=== PATIENT | male | born 1970 | race Caucasian/White ===

== ENCOUNTER 2016-06-01 21:19 | Emergency (ER) | payer MEDICARE, OTHER ==
[2016-06-01] MEDS ORDERED: SODIUM CHLORIDE 0.9% 1,000 ML IV STA (21:51)
--- NOTE | 2016-06-01 22:05 | ED ---
Male Urogenital HPI - General Chief complaint: Urogenital Stated complaint: Blood in stool Time Seen by Provider: 06/01/16 21:39 Source: patient, RN notes reviewed Mode of arrival: ambulatory Limitations: no limitations - History of Present Illness Initial comments: 45 yo male presents to the ER with cc of hematuria. Patient states hematuria started today. Patient states that he noticed this this morning. Patient states he is having some right-sided abdominal pain with this. Patient states that his bowel movements may be red she was given a note that was bladder use she is concerned about urination. Patient states that the nausea or vomiting with this. Patient states the pain is moderate and achy. Patient denies any fever chills. Patient states he is on the blood thinners. Patient states he was concerned due to the bleeding site. They should be evaluated. Patient denies any recent fever, chills, shortness of breath, chest pain, back pain, nausea vomiting, numbness or tingling, dysuria, constipation or diarrhea, headaches or visual changes, or any other current symptoms. - Related Data Home Medications Medication Instructions Recorded Confirmed Divalproex ER [Depakote ER] 500 mg PO TID 10/09/13 06/01/16 traZODone HCL [traZODone] 75 mg PO HS 01/18/14 06/01/16 Albuterol Sulfate [Ventolin HFA] 2 puff INHALATION RT-Q6H PRN 06/10/14 06/01/16 metFORMIN HCL [Glucophage] 500 mg PO DAILY 06/10/14 06/01/16 Atorvastatin [Lipitor] 40 mg PO HS 01/05/15 06/01/16 Metoprolol Succinate [Toprol XL] 25 mg PO DAILY 01/05/15 06/01/16 Aspirin EC [Ecotrin Low Dose] 81 mg PO DAILY 06/01/16 06/01/16 Baclofen 10 mg PO TID 06/01/16 06/01/16 Beclomethasone Dipropionate [Qvar 2 puff INHALATION RT-BID 06/01/16 06/01/16 80 mcg] Butalb/Acetaminophen/Caffeine 1 tab PO Q8H PRN 06/01/16 06/01/16 [Fioricet 50-325-40] Montelukast Sodium [Singulair] 10 mg PO DAILY PRN 06/01/16 06/01/16 Venlafaxine HCl ER [Effexor Xr] 37.5 mg PO HS 06/01/16 06/01/16 oxyCODONE-APAP 5-325MG [Percocet 1 tab PO BID PRN 06/01/16 06/01/16 5-325 mg] Previous Rx's Medication Instructions Recorded Azithromycin [Zithromax Z-pack] 0 mg PO DIRECTED #6 tab 03/17/16 Ondansetron Odt [Zofran ODT] 4 mg PO Q8HR PRN #20 tab 06/01/16 Tamsulosin [Flomax] 0.4 mg PO DAILY #5 cap 06/01/16 Allergies Allergy/AdvReac Type Severity Reaction Status Date / Time naproxen [From Naprosyn] Allergy Unknown Rash/Hives Verified 06/01/16 21:32 carrot Allergy Dyspnea Verified 06/01/16 21:32 chocolate flavor Allergy Dyspnea Verified 06/01/16 21:32 grass pollen-perennial rye, Allergy Dyspnea Verified 06/01/16 21:32 standar Review of Systems ROS Statement: Those systems with pertinent positive or pertinent negative responses have been documented in the HPI. ROS Other: All systems not noted in ROS Statement are negative. Past Medical History Past Medical History: Chest Pain / Angina, Diabetes Mellitus, GERD/Reflux, Hyperlipidemia, Hypertension Additional Past Medical History / Comment(s): back, mood disturbance. Last Myocardial Infarction Date:: 2004 History of Any Multi-Drug Resistant Organisms: None Reported Past Surgical History: Hernia Repair Additional Past Surgical History / Comment(s): rt knee arthroscopy x2 last date 2012,cardiac stent x1 2004 Past Anesthesia/Blood Transfusion Reactions: No Reported Reaction Date of Last Stent Placement:: 2004 Past Psychological History: Anxiety, Bipolar, Depression Smoking Status: Current every day smoker Past Alcohol Use History: None Reported Past Drug Use History: None Reported - Past Family History Father Family Medical History: Congestive Heart Failure (CHF), Deep Vein Thrombosis ( DVT), Myocardial Infarction (CO), Pulmonary Embolus Additional Family Medical History / Comment(s): CO at age 38. "hole in colon" Mother Family Medical History: Cancer, COPD, Diabetes Mellitus, Hyperlipidemia Additional Family Medical History / Comment(s): breast and lung cancer Sister(s) Family Medical History: Diabetes Mellitus Additional Family Medical History / Comment(s): bi-polar, anxiety. hysterectomy Brother(s) History Unknown: Yes General Exam - General Exam Comments Initial Comments: General: The patient is awake and alert, in no distress, and does not appear acutely ill. Eye: Pupils are equal, round and reactive to light, extra-ocular movements are intact; there is normal conjunctiva bilaterally. No signs of icterus. Ears, nose, mouth and throat: There are moist mucous membranes. Neck: The neck is supple, there is no tenderness. Cardiovascular: There is a regular rate and rhythm. No murmur, rub or gallop is appreciated. Respiratory: Lungs are clear to auscultation, respirations are non-labored, breath sounds are equal. No wheezes, stridor, rales, or rhonchi. Gastrointestinal: Soft, non-distended, non-tender abdomen without masses or organomegaly noted. There is no rebound or guarding present. No CVA tenderness. Bowel sounds are unremarkable. Back: There is no tenderness to palpation in the midline. There is no obvious deformity. No rashes noted. Musculoskeletal: Normal ROM, no tenderness, There is no pedal edema. There is no calf tenderness or swelling. Sensation intact. Pulses equal bilaterally 2+. Neurological: CN II-XII intact, There are no obvious motor or sensory deficits. Coordination appears grossly intact. Speech is normal. Skin: Skin is warm and dry and no rashes or lesions are noted. Psychiatric: Cooperative, appropriate mood & affect, normal judgment. Limitations: no limitations Course Vital Signs 06/01/16 21:30 Temperature 98.7 F Pulse Rate 82 Respiratory 20 Rate Blood Pressure 137/82 O2 Sat by Pulse 97 Oximetry Medical Decision Making - Medical Decision Making 45-year-old male presents with a chief complaint of hematuria. At this time the patient's CAT scan is reviewed that showed a 5 mm stone. At this time there appears to be mild hydronephrosis kidney function appears stable. This time we discussed follow up with urology. We discussed return parameters. We discussed all the patient's questions. He stated that he understood the plan. Patient was discharged home. - Lab Data Result diagrams: 06/01/16 21:59 06/01/16 21:59 Lab Results 06/01/16 06/01/16 06/01/16 Range/Units 21:50 21:50 21:59 WBC (3.8-10.6) k/uL RBC (4.30-5.90) m/uL Hgb (13.0-17.5) gm/dL Hct (39.0-53.0) % MCV (80.0-100.0) fL MCH (25.0-35.0) pg MCHC (31.0-37.0) g/dL RDW (11.5-15.5) % Plt Count (150-450) k/uL Neutrophils % % Lymphocytes % % Monocytes % % Eosinophils % % Basophils % % Neutrophils # (1.3-7.7) k/uL Lymphocytes # (1.0-4.8) k/uL Monocytes # (0-1.0) k/uL Eosinophils # (0-0.7) k/uL Basophils # (0-0.2) k/uL Sodium 143 (137-145) mmol/L Potassium 3.4 L (3.5-5.1) mmol/L Chloride 105 (98-107) mmol/L Carbon Dioxide 28 (22-30) mmol/L Anion Gap 10 mmol/L BUN 16 (9-20) mg/dL Creatinine 0.70 (0.66-1.25) mg/dL Est GFR (MDRD) Af Amer >60 (>60 ml/min/1.73 sqM) Est GFR (MDRD) Non-Af >60 (>60 ml/min/1.73 sqM) Glucose 105 H (74-99) mg/dL Calcium 10.2 (8.4-10.2) mg/dL Total Bilirubin 0.4 (0.2-1.3) mg/dL AST 14 L (17-59) U/L ALT 49 (21-72) U/L Alkaline Phosphatase 71 (38-126) U/L Total Protein 6.3 (6.3-8.2) g/dL Albumin 4.2 (3.5-5.0) g/dL Amylase 40 (30-110) U/L Lipase 94 (23-300) U/L Urine Color Light Red Urine Appearance Clear (Clear) Urine pH 6.0 (5.0-8.0) Ur Specific [place] 1.017 (1.001-1.035) Urine Protein Trace H (Negative) Urine Glucose (UA) 3+ H (Negative) Urine Ketones 1+ H (Negative) Urine Blood Large H (Negative) Urine Nitrate Negative (Negative) Urine Bilirubin Negative (Negative) Urine Urobilinogen 2.0 (<2.0) mg/dL Ur Leukocyte Esterase Negative (Negative) Urine RBC >182 H (0-5) /hpf Urine WBC 45 H (0-5) /hpf Stool Occult Blood Negative (Negative) 06/01/16 Range/Units 21:59 WBC 7.5 (3.8-10.6) k/uL RBC 4.76 (4.30-5.90) m/uL Hgb 14.8 (13.0-17.5) gm/dL Hct 42.5 (39.0-53.0) % MCV 89.3 (80.0-100.0) fL MCH 31.2 (25.0-35.0) pg MCHC 34.9 (31.0-37.0) g/dL RDW 13.7 (11.5-15.5) % Plt Count 151 (150-450) k/uL Neutrophils % 56 % Lymphocytes % 35 % Monocytes % 7 % Eosinophils % 1 % Basophils % 0 % Neutrophils # 4.2 (1.3-7.7) k/uL Lymphocytes # 2.6 (1.0-4.8) k/uL Monocytes # 0.5 (0-1.0) k/uL Eosinophils # 0.1 (0-0.7) k/uL Basophils # 0.0 (0-0.2) k/uL Sodium (137-145) mmol/L Potassium (3.5-5.1) mmol/L Chloride (98-107) mmol/L Carbon Dioxide (22-30) mmol/L Anion Gap mmol/L BUN (9-20) mg/dL Creatinine (0.66-1.25) mg/dL Est GFR (MDRD) Af Amer (>60 ml/min/1.73 sqM) Est GFR (MDRD) Non-Af (>60 ml/min/1.73 sqM) Glucose (74-99) mg/dL Calcium (8.4-10.2) mg/dL Total Bilirubin (0.2-1.3) mg/dL AST (17-59) U/L ALT (21-72) U/L Alkaline Phosphatase (38-126) U/L Total Protein (6.3-8.2) g/dL Albumin (3.5-5.0) g/dL Amylase (30-110) U/L Lipase (23-300) U/L Urine Color Urine Appearance (Clear) Urine pH (5.0-8.0) Ur Specific [place] (1.001-1.035) Urine Protein (Negative) Urine Glucose (UA) (Negative) Urine Ketones (Negative) Urine Blood (Negative) Urine Nitrate (Negative) Urine Bilirubin (Negative) Urine Urobilinogen (<2.0) mg/dL Ur Leukocyte Esterase (Negative) Urine RBC (0-5) /hpf Urine WBC (0-5) /hpf Stool Occult Blood (Negative) - Radiology Data Radiology results: report reviewed, image reviewed Disposition Clinical Impression: Right ureteral calculus Disposition: HOME SELF-CARE Condition: Stable Instructions: Kidney Stones (ED) Additional Instructions: Please use medication as discussed. Please follow up with family doctor if symptoms have not improved over the next two days. Please return to the emergency room if your symptoms increase or worsen or for any other concerns. Prescriptions: Ondansetron Odt [Zofran ODT] 4 mg PO Q8HR PRN #20 tab PRN Reason: Nausea Tamsulosin [Flomax] 0.4 mg PO DAILY #5 cap Referrals: Mine Walsh MD [Primary Care Provider] - 1-2 days Jun Stern MD [STAFF PHYSICIAN] - 1-2 days Time of Disposition: 23:05
[2016-06-01 22:06] LABS: Appearance,Urine Clear (Clear); Bilirubin,Urine Negative (Negative); Glucose,Urine (UA) 3+ (Negative); Ketones,Urine 1+ (Negative); Leukocyte Esterase,Urine Negative (Negative); Nitrite,Urine Negative (Negative); Particle Count 3736; Protein,Urine Trace (Negative); RBC,Urine >182 /hpf (0-5); Specific Gravity,Urine 1.017 (1.001-1.035); UA Billing (MACRO vs. MICRO) MICRO; WBC,Urine 45 /hpf (0-5)
[2016-06-01 22:12] LABS: Basophils % (A) 0 %; CH 32.2; CHCM 36.1; Eosinophils # (A) 0.1 k/uL (0-0.7); Eosinophils % (A) 1 %; HCT 42.5 % (39.0-53.0); HDW 2.98; HGB 14.8 gm/dL (13.0-17.5); Luc # (Auto) 0.11; Luc % (Auto) 2; Lymphocytes # (A) 2.6 k/uL (1.0-4.8); Lymphocytes % (A) 35 %; MCH 31.2 pg (25.0-35.0); MCHC 34.9 g/dL (31.0-37.0); MCV 89.3 fL (80.0-100.0); Mean Platelet Volume 7.3; Monocytes # (A) 0.5 k/uL (0-1.0); Monocytes % (A) 7 %; Neutrophils # (A) 4.2 k/uL (1.3-7.7); Neutrophils % (A) 56 %; RBC 4.76 m/uL (4.30-5.90); RDW 13.7 % (11.5-15.5); WBC 7.5 k/uL (3.8-10.6)
[2016-06-01 22:23] LABS: ALT 49 U/L (21-72); AST 14 U/L (17-59); Alkaline Phosphatase 71 U/L (38-126); Amylase 40 U/L (30-110); Anion Gap 10 mmol/L; Blood Urea Nitrogen 16 mg/dL (9-20); Calcium 10.2 mg/dL (8.4-10.2); Carbon Dioxide 28 mmol/L (22-30); Chloride 105 mmol/L (98-107); Glucose 105 mg/dL (74-99); Non-African American GFR(MDRD) >60 (>60 ml/min/1.73 sqM); Potassium 3.4 mmol/L (3.5-5.1); Sodium 143 mmol/L (137-145); Total Bilirubin 0.4 mg/dL (0.2-1.3); Total Protein 6.3 g/dL (6.3-8.2)
--- NOTE | 2016-06-01 22:58 | CT ---
EXAMINATION TYPE: CT abdomen pelvis wo con DATE OF EXAM: 06/01/2016 10:20 PM COMPARISON: 06/04/2013 HISTORY: generalized pain with hematuria CT DLP: 604 mGycm Automated exposure control for dose reduction was used. TECHNIQUE: Helical acquisition of images was performed from the lung bases through the pelvis. FINDINGS: LUNG BASES: No significant abnormality is appreciated. LIVER/GB: There is mild fatty infiltration of liver. Gallbladder is contracted and is limited for evaluation. PANCREAS: No significant abnormality is seen. SPLEEN: No significant abnormality is seen. ADRENALS: No significant abnormality is seen. KIDNEYS: There is mild right hydronephrosis and hydroureter. There is 5 mm opaque density in the area of distal right ureter in the pelvis in the axial image 79 and coronal image 65 approximately 5 cm f rom the right UV junction and is suspicious for partially obstructing stone in the distal right urete r. Left kidney showed tiny nonobstructing 2 mm stone in the coronal image 70. No significant hydronephro sis or obstructing stones are noted in the left kidney and left ureter. RETROPERITONEAL ADENOPATHY: None visualized REPRODUCTIVE ORGANS: Prostate gland is slightly enlarged with prominent with central gland calcificat ions. URINARY BLADDER: Mild wall thickening of urinary bladder is most likely related to incomplete disten tion. Possibility of chronic inflammation of urinary bladder cannot be excluded. PELVIC ADENOPATHY: None visualized. OSSEOUS STRUCTURES: Mild to moderate degenerative disc disease changes are present at the L5-S1 with vacuum disc phenomenon. BOWEL: Stomach and small bowel loops appear grossly unremarkable. Visualized appendix showed no significant inflammation in the axial image 73 and coronal image 50. Mild to moderate colonic diverticulosis is noted without evidence of acute diverticulitis. ABDOMINAL WALL: Small fat-containing inguinal hernia is noted on the right side. IMPRESSION: 1. SUSPECTED 5 MM OBSTRUCTING STONE IN THE DISTAL RIGHT URETER WITH MILD RIGHT HYDRONEPHROSIS AND RIG HT HYDROURETER IN THE PELVIS. 2. TINY 2 MM NONOBSTRUCTING STONE IN THE LEFT KIDNEY WITHOUT SIGNIFICANT HYDRONEPHROSIS. 3. FATTY INFILTRATION OF LIVER. 4. CONTRACTED GALLBLADDER. 5. APPENDIX APPEARS UNREMARKABLE. THERE IS MILD COLONIC DIVERTICULOSIS. 6. POSSIBLE CHRONIC INFLAMMATION OF THE URINARY BLADDER. A PHONE REPORT IS GIVEN TO VIKI ALFRED AT THE TIME OF THE DICTATION.
[2016-06-01 23:18] VITALS: BP 133/75; PULSE 89; RESP 16; TEMP 97.8
== END 2016-06-01 23:18 | disposition home or self-care (01) ==
LOC: EC 21:19
DX: N13.2 Hydronephrosis with renal and ureteral calculous obstruction (principal); K82.0 Obstruction of gallbladder; I10 Essential (primary) hypertension; E78.5 Hyperlipidemia, unspecified; E11.9 Type 2 diabetes mellitus without complications; F32.9 Major depressive disorder, single episode, unspecified; F41.9 Anxiety disorder, unspecified; Z79.899 Other long term (current) drug therapy; Z79.82 Long term (current) use of aspirin; Z88.8 Allergy status to other drugs, medicaments and biological substances; Z91.018 Allergy to other foods; Z91.048 Other nonmedicinal substance allergy status; F17.200 Nicotine dependence, unspecified, uncomplicated; Z79.84 Long term (current) use of oral hypoglycemic drugs; Z79.51 Long term (current) use of inhaled steroids
CPT/HCPCS: 36415; 74176; 80053; 81001; 82150; 82272; 83690; 85025; 87086; 96360; 99284

== ENCOUNTER → 2016-06-09 | Outpatient (CLI) | payer MEDICARE, OTHER ==
--- NOTE | 2016-06-09 15:05 | XR ---
Abdomen HISTORY: Hematuria, bilateral kidney stones Correlation to prior abdomen CT May 2016 Frontal view of the abdomen on 2 images The small distal ureteral calcification on the right is not seen with certainty on plain film. Lung b ases are clear. There is no pneumoperitoneum or bowel obstruction evident. Bone mineralization is jr ntained. IMPRESSION: There may been interval passage of patient's right ureteral calculus
== END | disposition home or self-care (01) ==
LOC: RADXRMAIN 14:43
PROVIDERS: ATTEND Urology
DX: N20.0 Calculus of kidney (principal)
CPT/HCPCS: 74000

== ENCOUNTER → 2016-06-29 | Outpatient (CLI) | payer MEDICARE, OTHER ==
--- NOTE | 2016-06-30 09:52 | XR ---
EXAMINATION TYPE: XR KUB DATE OF EXAM: 06/29/2016 6:56 PM COMPARISON: 06/09/2016 HISTORY: Right-sided pain and history of renal stone FINDINGS: The osseous structures are intact. The bowel gas pattern is nonspecific. No definite suspicious calc ulus identified. Arthropathy of the hip joints. Correlate for femoral acetabular impingement. IMPRESSION: 1. Nonspecific abdomen. No suspicious calcifications identified.
== END ==
LOC: RADXRMAIN 18:27
PROVIDERS: ATTEND Urology
DX: N20.0 Calculus of kidney (principal)
CPT/HCPCS: 74000

== ENCOUNTER 2016-07-08 19:58 | Emergency (ER) | payer MEDICARE, OTHER ==
[2016-07-08 20:20] VITALS: RESP 18
[2016-07-08] MEDS ORDERED: SODIUM CHLORIDE 0.9% 1,000 ML IV ONE (22:45)
[2016-07-08] MEDS ORDERED: ONDANSETRON 4 MG/2 ML VIAL IVP STA (22:45)
[2016-07-08] MEDS ORDERED: HYDROmorphone 1 MG/ML 1 ML SYRINGE IVP STA (22:46)
[2016-07-08] MEDS ORDERED: ACETAMINOPHEN IV (For NPO) 1,000 MG in EMPTY BAG 1 BAG IVPB STA (22:49)
--- NOTE | 2016-07-08 22:50 | ED ---
Nausea/Vomiting/Diarrhea HPI - General Chief complaint: Nausea/Vomiting/Diarrhea Stated complaint: Vomiting Time Seen by Provider: 07/08/16 22:27 Source: patient, RN notes reviewed Mode of arrival: wheelchair Limitations: no limitations - History of Present Illness Initial comments: Patient is a 45-year-old male presents emergency room for evaluation of nausea, vomiting and abdominal pain. Patient states he woke up this morning and began vomiting along with diffuse abdominal pain. Patient denies any history abdominal surgeries. Patient does state that on 07/04/16, he had a stent placed in his right ureter for kidney stone by Dr. Stern. Patient states after surgery he had hematuria that has been subsiding. Patient states he's had increased right flank pain today. Patient states felt very warm today. Patient had a fever on arrival. Patient denies taking any Tylenol or Motrin for symptoms. Patient is having 10 out of 10 constant pain. Patient states he still feeling very nauseous. Patient states he had one episode of diarrhea. Patient denies recent travel outside the country, new foods or recent antibiotics. Patient denies chest pain, shortness of breath. Patient does state he has a headache. Patient denies receiving his influenza vaccine this year. Patient denies throat pain, ear pain, neck pain. Patient denies pain or burning while urinating. - Related Data Home Medications Medication Instructions Recorded Confirmed Divalproex ER [Depakote ER] 500 mg PO TID 10/09/13 07/08/16 traZODone HCL [traZODone] 75 mg PO HS 01/18/14 07/08/16 Albuterol Sulfate [Ventolin HFA] 2 puff INHALATION RT-Q6H PRN 06/10/14 07/08/16 metFORMIN HCL [Glucophage] 500 mg PO DAILY 06/10/14 07/08/16 Atorvastatin [Lipitor] 40 mg PO HS 01/05/15 07/08/16 Metoprolol Succinate [Toprol XL] 25 mg PO DAILY 01/05/15 07/08/16 Aspirin EC [Ecotrin Low Dose] 81 mg PO DAILY 06/01/16 07/08/16 Baclofen 10 mg PO TID 06/01/16 07/08/16 Beclomethasone Dipropionate [Qvar 2 puff INHALATION RT-BID 06/01/16 07/08/16 80 mcg] Butalb/Acetaminophen/Caffeine 1 tab PO Q8H PRN 06/01/16 07/08/16 [Fioricet 50-325-40] Montelukast Sodium [Singulair] 10 mg PO DAILY PRN 06/01/16 07/08/16 Venlafaxine HCl ER [Effexor Xr] 37.5 mg PO HS 06/01/16 07/08/16 oxyCODONE-APAP 5-325MG [Percocet 1 tab PO BID PRN 06/01/16 07/08/16 5-325 mg] Previous Rx's Medication Instructions Recorded Azithromycin [Zithromax Z-pack] 0 mg PO DIRECTED #6 tab 03/17/16 Ondansetron Odt [Zofran ODT] 4 mg PO Q8HR PRN #20 tab 06/01/16 Tamsulosin [Flomax] 0.4 mg PO DAILY #5 cap 06/01/16 Sulfamethox-Tmp 800-160Mg [Bactrim 1 tab PO Q12HR 7 Days 07/09/16 DS 800-160 mg] Allergies Allergy/AdvReac Type Severity Reaction Status Date / Time naproxen [From Naprosyn] Allergy Unknown Rash/Hives Verified 07/08/16 20:20 carrot Allergy Dyspnea Verified 07/08/16 20:20 chocolate flavor Allergy Dyspnea Verified 07/08/16 20:20 grass pollen-perennial rye, Allergy Dyspnea Verified 07/08/16 20:20 standar Review of Systems ROS Statement: Those systems with pertinent positive or pertinent negative responses have been documented in the HPI. ROS Other: All systems not noted in ROS Statement are negative. Past Medical History Past Medical History: Chest Pain / Angina, Diabetes Mellitus, GERD/Reflux, Hyperlipidemia, Hypertension Additional Past Medical History / Comment(s): back, mood disturbance. Last Myocardial Infarction Date:: 2004 History of Any Multi-Drug Resistant Organisms: None Reported Past Surgical History: Hernia Repair Additional Past Surgical History / Comment(s): rt knee arthroscopy x2 last date 2012,cardiac stent x1 2004, stent placed for kidney stone 07/04/2016 Past Anesthesia/Blood Transfusion Reactions: No Reported Reaction Date of Last Stent Placement:: 2004 Past Psychological History: Anxiety, Bipolar, Depression Smoking Status: Current every day smoker Past Alcohol Use History: None Reported Past Drug Use History: None Reported - Past Family History Father Family Medical History: Congestive Heart Failure (CHF), Deep Vein Thrombosis ( DVT), Myocardial Infarction ([place]), Pulmonary Embolus Additional Family Medical History / Comment(s): [place] at age 38. "hole in colon" Mother Family Medical History: Cancer, COPD, Diabetes Mellitus, Hyperlipidemia Additional Family Medical History / Comment(s): breast and lung cancer Sister(s) Family Medical History: Diabetes Mellitus Additional Family Medical History / Comment(s): bi-polar, anxiety. hysterectomy Brother(s) History Unknown: Yes General Exam - General Exam Comments Initial Comments: Sitting in exam room, no acute distress. Limitations: no limitations General appearance: alert, in no apparent distress Head exam: Present: atraumatic, normocephalic, normal inspection Eye exam: Present: normal appearance, PERRL, EOMI Pupils: Present: normal accommodation ENT exam: Present: normal exam Neck exam: Present: normal inspection Respiratory exam: Present: normal lung sounds bilaterally. Absent: respiratory distress Cardiovascular Exam: Present: normal rhythm, tachycardia, normal heart sounds GI/Abdominal exam: Present: soft, tenderness (Diffuse tenderness on palpation), normal bowel sounds. Absent: distended, guarding, rebound, rigid Extremities exam: Present: normal inspection Back exam: Present: normal inspection, CVA tenderness (R). Absent: CVA tenderness (L) Neurological exam: Present: alert, oriented X3, CN II-XII intact, normal gait Psychiatric exam: Present: normal affect, normal mood Skin exam: Present: warm, dry, intact, normal color. Absent: rash Course Vital Signs 07/08/16 20:16 Temperature 102.7 F H Pulse Rate 113 H Respiratory 18 Rate Blood Pressure 126/69 O2 Sat by Pulse 96 Oximetry Medical Decision Making - Medical Decision Making Patient is a 45-year-old female presents to the emergency room for evaluation nausea, vomiting and abdominal pain, postoperative ureteral stent on 07/04/16. Labs reviewed. Case discussed with Dr. Lucio. Dr. Lucio Spoke with on- call urologist who recommended patient receive 2 g of Rocephin and be sent home with Bactrim. Patient's fever subsiding. Patient states he is feeling much better. Plan discussed with patient. Patient states he understands everything that was discussed with him. Return parameters discussed. - Lab Data Result diagrams: 07/09/16 00:08 07/09/16 00:08 Lab Results 07/09/16 07/09/16 07/09/16 Range/Units 00:01 00:08 00:08 WBC 11.4 H (3.8-10.6) k/uL RBC 4.63 (4.30-5.90) m/uL Hgb 14.6 (13.0-17.5) gm/dL Hct 41.1 (39.0-53.0) % MCV 88.6 (80.0-100.0) fL MCH 31.5 (25.0-35.0) pg MCHC 35.6 (31.0-37.0) g/dL RDW 13.6 (11.5-15.5) % Plt Count 140 L (150-450) k/uL Neutrophils % 81 % Lymphocytes % 11 % Monocytes % 6 % Eosinophils % 0 % Basophils % 0 % Neutrophils # 9.3 H (1.3-7.7) k/uL Lymphocytes # 1.2 (1.0-4.8) k/uL Monocytes # 0.7 (0-1.0) k/uL Eosinophils # 0.0 (0-0.7) k/uL Basophils # 0.0 (0-0.2) k/uL PT (9.0-12.0) sec INR (<1.1) APTT (22.0-30.0) sec Sodium (137-145) mmol/L Potassium (3.5-5.1) mmol/L Chloride (98-107) mmol/L Carbon Dioxide (22-30) mmol/L Anion Gap mmol/L BUN (9-20) mg/dL Creatinine (0.66-1.25) mg/dL Est GFR (MDRD) Af Amer (>60 ml/min/1.73 sqM) Est GFR (MDRD) Non-Af (>60 ml/min/1.73 sqM) Glucose (74-99) mg/dL Plasma Lactic Acid Cory (0.7-2.0) mmol/L Calcium (8.4-10.2) mg/dL Total Bilirubin (0.2-1.3) mg/dL AST (17-59) U/L ALT (21-72) U/L Alkaline Phosphatase (38-126) U/L Total Creatine Kinase 34 L (55-170) U/L CK-MB (CK-2) <0.2 (0.0-2.4) ng/mL CK-MB (CK-2) Rel Index Troponin I <0.012 (0.000-0.034) ng/mL Total Protein (6.3-8.2) g/dL Albumin (3.5-5.0) g/dL Cortisol ug/dL Urine Color Yellow Urine Appearance Cloudy (Clear) Urine pH 6.0 (5.0-8.0) Ur Specific [place] 1.017 (1.001-1.035) Urine Protein 3+ H (Negative) Urine Glucose (UA) Negative (Negative) Urine Ketones 1+ H (Negative) Urine Blood Moderate H (Negative) Urine Nitrate Negative (Negative) Urine Bilirubin Negative (Negative) Urine Urobilinogen 2.0 (<2.0) mg/dL Ur Leukocyte Esterase Large H (Negative) Urine RBC >182 H (0-5) /hpf Urine WBC 179 H (0-5) /hpf Urine Mucus Rare H (None) /hpf Influenza Type A RNA (Not Detectd) Influenza Type B (PCR) (Not Detectd) 07/09/16 07/09/16 07/09/16 Range/Units 00:08 00:08 00:08 WBC (3.8-10.6) k/uL RBC (4.30-5.90) m/uL Hgb (13.0-17.5) gm/dL Hct (39.0-53.0) % MCV (80.0-100.0) fL MCH (25.0-35.0) pg MCHC (31.0-37.0) g/dL RDW (11.5-15.5) % Plt Count (150-450) k/uL Neutrophils % % Lymphocytes % % Monocytes % % Eosinophils % % Basophils % % Neutrophils # (1.3-7.7) k/uL Lymphocytes # (1.0-4.8) k/uL Monocytes # (0-1.0) k/uL Eosinophils # (0-0.7) k/uL Basophils # (0-0.2) k/uL PT (9.0-12.0) sec INR (<1.1) APTT (22.0-30.0) sec Sodium 137 (137-145) mmol/L Potassium 4.1 (3.5-5.1) mmol/L Chloride 102 (98-107) mmol/L Carbon Dioxide 22 (22-30) mmol/L Anion Gap 13 mmol/L BUN 13 (9-20) mg/dL Creatinine 1.00 (0.66-1.25) mg/dL Est GFR (MDRD) Af Amer >60 (>60 ml/min/1.73 sqM) Est GFR (MDRD) Non-Af >60 (>60 ml/min/1.73 sqM) Glucose 129 H (74-99) mg/dL Plasma Lactic Acid Cory 1.2 (0.7-2.0) mmol/L Calcium 9.0 (8.4-10.2) mg/dL Total Bilirubin 1.8 H (0.2-1.3) mg/dL AST 16 L (17-59) U/L ALT 46 (21-72) U/L Alkaline Phosphatase 74 (38-126) U/L Total Creatine Kinase (55-170) U/L CK-MB (CK-2) (0.0-2.4) ng/mL CK-MB (CK-2) Rel Index Troponin I (0.000-0.034) ng/mL Total Protein 7.1 (6.3-8.2) g/dL Albumin 4.2 (3.5-5.0) g/dL Cortisol 21 ug/dL Urine Color Urine Appearance (Clear) Urine pH (5.0-8.0) Ur Specific [place] (1.001-1.035) Urine Protein (Negative) Urine Glucose (UA) (Negative) Urine Ketones (Negative) Urine Blood (Negative) Urine Nitrate (Negative) Urine Bilirubin (Negative) Urine Urobilinogen (<2.0) mg/dL Ur Leukocyte Esterase (Negative) Urine RBC (0-5) /hpf Urine WBC (0-5) /hpf Urine Mucus (None) /hpf Influenza Type A RNA Not Detected (Not Detectd) Influenza Type B (PCR) Not Detected (Not Detectd) 07/09/16 Range/Units 00:08 WBC (3.8-10.6) k/uL RBC (4.30-5.90) m/uL Hgb (13.0-17.5) gm/dL Hct (39.0-53.0) % MCV (80.0-100.0) fL MCH (25.0-35.0) pg MCHC (31.0-37.0) g/dL RDW (11.5-15.5) % Plt Count (150-450) k/uL Neutrophils % % Lymphocytes % % Monocytes % % Eosinophils % % Basophils % % Neutrophils # (1.3-7.7) k/uL Lymphocytes # (1.0-4.8) k/uL Monocytes # (0-1.0) k/uL Eosinophils # (0-0.7) k/uL Basophils # (0-0.2) k/uL PT 11.2 (9.0-12.0) sec INR 1.1 (<1.1) APTT 23.3 (22.0-30.0) sec Sodium (137-145) mmol/L Potassium (3.5-5.1) mmol/L Chloride (98-107) mmol/L Carbon Dioxide (22-30) mmol/L Anion Gap mmol/L BUN (9-20) mg/dL Creatinine (0.66-1.25) mg/dL Est GFR (MDRD) Af Amer (>60 ml/min/1.73 sqM) Est GFR (MDRD) Non-Af (>60 ml/min/1.73 sqM) Glucose (74-99) mg/dL Plasma Lactic Acid Cory (0.7-2.0) mmol/L Calcium (8.4-10.2) mg/dL Total Bilirubin (0.2-1.3) mg/dL AST (17-59) U/L ALT (21-72) U/L Alkaline Phosphatase (38-126) U/L Total Creatine Kinase (55-170) U/L CK-MB (CK-2) (0.0-2.4) ng/mL CK-MB (CK-2) Rel Index Troponin I (0.000-0.034) ng/mL Total Protein (6.3-8.2) g/dL Albumin (3.5-5.0) g/dL Cortisol ug/dL Urine Color Urine Appearance (Clear) Urine pH (5.0-8.0) Ur Specific [place] (1.001-1.035) Urine Protein (Negative) Urine Glucose (UA) (Negative) Urine Ketones (Negative) Urine Blood (Negative) Urine Nitrate (Negative) Urine Bilirubin (Negative) Urine Urobilinogen (<2.0) mg/dL Ur Leukocyte Esterase (Negative) Urine RBC (0-5) /hpf Urine WBC (0-5) /hpf Urine Mucus (None) /hpf Influenza Type A RNA (Not Detectd) Influenza Type B (PCR) (Not Detectd) - Radiology Data Radiology results: report reviewed, image reviewed Disposition Clinical Impression: Postoperative pain, Urinary tract infection Disposition: HOME SELF-CARE Condition: Good Instructions: Urinary Tract Infection in Men (ED) Additional Instructions: Drink plenty of fluids. Take antibiotics as directed. Continue taking Tylenol/ ibuprofen for fever. Please follow-up with urologist in 24-48 hours for reevaluation. If any new symptom arises or symptoms worsen, return to ER as soon as possible. Prescriptions: Sulfamethox-Tmp 800-160Mg [Bactrim DS 800-160 mg] 1 tab PO Q12HR 7 Days Referrals: Herb Marquis MD [Primary Care Provider] - 1-2 days Jun Stern MD [STAFF PHYSICIAN] - 1-2 days Time of Disposition: 02:04
--- NOTE | 2016-07-09 00:06 | XR ---
EXAMINATION TYPE: XR KUB DATE OF EXAM: 07/08/2016 11:43 PM COMPARISON: June 29, 2016 HISTORY: Vomiting TECHNIQUE: 2 views FINDINGS: Bowel gas pattern is normal. There is no sign of intestinal obstruction or pneumoperitoneum . Fecal pattern is normal. There are no pathologic calcifications over the kidneys. There is a right- sided ureteral stent. Lung bases are clear. IMPRESSION: Nonacute abdomen. No adverse change compared to old exam. The ureteral stent appears new.
[2016-07-09 00:38] LABS: Basophils % (A) 0 %; CH 32.3; CHCM 36.6; Eosinophils % (A) 0 %; HCT 41.1 % (39.0-53.0); HDW 3.08; HGB 14.6 gm/dL (13.0-17.5); Luc # (Auto) 0.16; Luc % (Auto) 1; Lymphocytes # (A) 1.2 k/uL (1.0-4.8); Lymphocytes % (A) 11 %; MCH 31.5 pg (25.0-35.0); MCHC 35.6 g/dL (31.0-37.0); MCV 88.6 fL (80.0-100.0); Mean Platelet Volume 7.1; Monocytes # (A) 0.7 k/uL (0-1.0); Monocytes % (A) 6 %; Neutrophils # (A) 9.3 k/uL (1.3-7.7); Neutrophils % (A) 81 %; RBC 4.63 m/uL (4.30-5.90); RDW 13.6 % (11.5-15.5); WBC 11.4 k/uL (3.8-10.6); WBC (Perox) 11.58
[2016-07-09 00:46] LABS: Appearance,Urine Cloudy (Clear); Bilirubin,Urine Negative (Negative); Glucose,Urine (UA) Negative (Negative); Ketones,Urine 1+ (Negative); Leukocyte Esterase,Urine Large (Negative); Mucus,Urine Rare /hpf; Nitrite,Urine Negative (Negative); Particle Count 13552; Protein,Urine 3+ (Negative); RBC,Urine >182 /hpf (0-5); Specific Gravity,Urine 1.017 (1.001-1.035); UA Billing (MACRO vs. MICRO) MICRO; WBC,Urine 179 /hpf (0-5)
[2016-07-09 00:49] LABS: INR 1.1 (<1.1); Partial Thromboplastin Time 23.3 sec (22.0-30.0); Prothrombin Time 11.2 sec (9.0-12.0)
[2016-07-09 00:51] LABS: ALT 46 U/L (21-72); AST 16 U/L (17-59); Alkaline Phosphatase 74 U/L (38-126); Anion Gap 13 mmol/L; Blood Urea Nitrogen 13 mg/dL (9-20); Carbon Dioxide 22 mmol/L (22-30); Chloride 102 mmol/L (98-107); Glucose 129 mg/dL (74-99); Non-African American GFR(MDRD) >60 (>60 ml/min/1.73 sqM); Potassium 4.1 mmol/L (3.5-5.1); Sodium 137 mmol/L (137-145); Total Bilirubin 1.8 mg/dL (0.2-1.3); Total Protein 7.1 g/dL (6.3-8.2)
[2016-07-09 00:57] LABS: Creatine Kinase 34 U/L (55-170)
[2016-07-09] MEDS ORDERED: cefTRIAXone 2,000 MG in SODIUM CHLORIDE 0.9% 100 ML IVPB STA (01:09)
[2016-07-09 01:10] LABS: Creatine Kinase MB <0.2 ng/mL (0.0-2.4); Troponin I <0.012 ng/mL (0.000-0.034)
[2016-07-09] MEDS ORDERED: SODIUM CHLORIDE 0.9% 1,000 ML IV ONE (01:11)
[2016-07-09] MEDS ORDERED: IBUPROFEN 600 MG TAB PO STA (01:42)
[2016-07-09 02:58] VITALS: BP 114/57; PULSE 91; TEMP 100.2
== END 2016-07-09 02:58 | disposition home or self-care (01) ==
LOC: EC 19:58
DX: G89.18 Other acute postprocedural pain (principal); N39.0 Urinary tract infection, site not specified; R51 Headache; E11.9 Type 2 diabetes mellitus without complications; E78.5 Hyperlipidemia, unspecified; I10 Essential (primary) hypertension; Z79.899 Other long term (current) drug therapy; Z79.82 Long term (current) use of aspirin; Z79.84 Long term (current) use of oral hypoglycemic drugs; Z88.6 Allergy status to analgesic agent; Z91.018 Allergy to other foods; Z91.09 Other allergy status, other than to drugs and biological substances; I25.2 Old myocardial infarction; Z95.5 Presence of coronary angioplasty implant and graft; F41.9 Anxiety disorder, unspecified; F32.9 Major depressive disorder, single episode, unspecified; F17.210 Nicotine dependence, cigarettes, uncomplicated; Z98.890 Other specified postprocedural states
CPT/HCPCS: 36415; 80053; 82533; 82550; 82553; 83605; 84484; 85025; 85610; 85730; 81001; 87040; 87086; 87077; 87186; 87502; 74000; 96375; 96365; 99284; J2405; J0696; J1170; J0131

== ENCOUNTER 2016-07-09 14:46 | Inpatient (IN) | payer MEDICARE, OTHER ==
[2016-07-09] MEDS ORDERED: IBUPROFEN IV 400 MG in SODIUM CHLORIDE 0.9% 250 ML IV ONE (14:59)
[2016-07-09] MEDS ORDERED: SODIUM CHLORIDE 0.9% 500 ML IV STA (15:01)
[2016-07-09 15:05] LABS: Basophils % (A) 0 %; CH 32.2; CHCM 36.3; Eosinophils % (A) 0 %; HCT 37.9 % (39.0-53.0); HDW 3.11; HGB 13.2 gm/dL (13.0-17.5); Luc # (Auto) 0.19; Luc % (Auto) 2; Lymphocytes # (A) 0.9 k/uL (1.0-4.8); Lymphocytes % (A) 8 %; MCHC 34.9 g/dL (31.0-37.0); MCV 88.9 fL (80.0-100.0); Mean Platelet Volume 8.1; Monocytes # (A) 0.7 k/uL (0-1.0); Monocytes % (A) 6 %; Neutrophils # (A) 9.3 k/uL (1.3-7.7); Neutrophils % (A) 84 %; RBC 4.26 m/uL (4.30-5.90); RDW 13.5 % (11.5-15.5); WBC 11.1 k/uL (3.8-10.6); WBC (Perox) 11.49
--- NOTE | 2016-07-09 15:08 | ED ---
General Adult HPI - General Chief complaint: Fever Stated complaint: Fever Time Seen by Provider: 07/09/16 14:55 Source: patient, RN notes reviewed Mode of arrival: EMS Limitations: no limitations - History of Present Illness Initial comments: Patient is a pleasant 45-year-old male presenting to the emergency department with concerns for fever. Onset was yesterday. Patient was in the emergency department yesterday. Patient diagnosed with urinary tract infection. Patient has had several episodes of vomiting. Patient did take Tylenol around a half an hour ago. Temperature at home was 103. No abdominal pain. No chest pain or dyspnea. Patient has mild rhinorrhea. Patient had a negative flu swab yesterday. Patient did have a recent cystoscopy with ureter stent placement. This was for reported kidney stone however they did not find a kidney stone. Dr. Bales was the urologist. - Related Data Home Medications Medication Instructions Recorded Confirmed Divalproex ER [Depakote ER] 500 mg PO TID 10/09/13 07/09/16 traZODone HCL [traZODone] 75 mg PO HS 01/18/14 07/09/16 Albuterol Sulfate [Ventolin HFA] 2 puff INHALATION RT-Q6H PRN 06/10/14 07/09/16 metFORMIN HCL [Glucophage] 500 mg PO DAILY 06/10/14 07/09/16 Atorvastatin [Lipitor] 40 mg PO HS 01/05/15 07/09/16 Metoprolol Succinate [Toprol XL] 25 mg PO DAILY 01/05/15 07/09/16 Aspirin EC [Ecotrin Low Dose] 81 mg PO DAILY 06/01/16 07/09/16 Baclofen 10 mg PO TID 06/01/16 07/09/16 Beclomethasone Dipropionate [Qvar 2 puff INHALATION RT-BID 06/01/16 07/09/16 80 mcg] Butalb/Acetaminophen/Caffeine 1 tab PO Q8H PRN 06/01/16 07/09/16 [Fioricet 50-325-40] Montelukast Sodium [Singulair] 10 mg PO DAILY PRN 06/01/16 07/09/16 Venlafaxine HCl ER [Effexor Xr] 37.5 mg PO HS 06/01/16 07/09/16 oxyCODONE-APAP 5-325MG [Percocet 1 tab PO BID PRN 06/01/16 07/09/16 5-325 mg] Acetaminophen Tab [Tylenol Tab] 650 mg PO Q6H PRN 07/09/16 07/09/16 Previous Rx's Medication Instructions Recorded Tamsulosin [Flomax] 0.4 mg PO DAILY #5 cap 06/01/16 Sulfamethox-Tmp 800-160Mg [Bactrim 1 tab PO Q12HR 7 Days 07/09/16 DS 800-160 mg] Allergies Allergy/AdvReac Type Severity Reaction Status Date / Time naproxen [From Naprosyn] Allergy Unknown Rash/Hives Verified 07/09/16 15:41 carrot Allergy Dyspnea Verified 07/09/16 15:41 chocolate flavor Allergy Dyspnea Verified 07/09/16 15:41 grass pollen-perennial rye, Allergy Dyspnea Verified 07/09/16 15:41 standar Review of Systems ROS Statement: Those systems with pertinent positive or pertinent negative responses have been documented in the HPI. ROS Other: All systems not noted in ROS Statement are negative. Constitutional: Reports: fever Eyes: Denies: eye pain ENT: Denies: ear pain Respiratory: Denies: cough Cardiovascular: Denies: chest pain Endocrine: Denies: fatigue Gastrointestinal: Reports: nausea, vomiting. Denies: abdominal pain Genitourinary: Reports: frequency Musculoskeletal: Denies: back pain Skin: Denies: rash Past Medical History Past Medical History: Chest Pain / Angina, Diabetes Mellitus, GERD/Reflux, Hyperlipidemia, Hypertension Additional Past Medical History / Comment(s): back, mood disturbance. Last Myocardial Infarction Date:: 2004 History of Any Multi-Drug Resistant Organisms: None Reported Past Surgical History: Hernia Repair Additional Past Surgical History / Comment(s): rt knee arthroscopy x2 last date 2012,cardiac stent x1 2004, stent placed for kidney stone 07/04/2016 Past Anesthesia/Blood Transfusion Reactions: No Reported Reaction Date of Last Stent Placement:: 2004 Past Psychological History: Anxiety, Bipolar, Depression Smoking Status: Current every day smoker Past Alcohol Use History: None Reported Past Drug Use History: None Reported - Past Family History Father Family Medical History: Congestive Heart Failure (CHF), Deep Vein Thrombosis ( DVT), Myocardial Infarction ([place]), Pulmonary Embolus Additional Family Medical History / Comment(s): [place] at age 38. "hole in colon" Mother Family Medical History: Cancer, COPD, Diabetes Mellitus, Hyperlipidemia Additional Family Medical History / Comment(s): breast and lung cancer Sister(s) Family Medical History: Diabetes Mellitus Additional Family Medical History / Comment(s): bi-polar, anxiety. hysterectomy Brother(s) History Unknown: Yes General Exam Limitations: no limitations General appearance: alert, in no apparent distress Head exam: Present: atraumatic Eye exam: Present: normal appearance, PERRL ENT exam: Present: normal oropharynx Neck exam: Present: normal inspection Respiratory exam: Present: normal lung sounds bilaterally Cardiovascular Exam: Present: tachycardia GI/Abdominal exam: Present: soft. Absent: distended, tenderness Extremities exam: Present: normal inspection Neurological exam: Present: alert Psychiatric exam: Present: normal affect, normal mood Skin exam: Absent: rash Course Vital Signs 07/09/16 07/09/16 07/09/16 14:46 14:54 15:32 Temperature 103.9 F H Pulse Rate 117 H 99 Pulse Rate [ 114 H Apical] Respiratory 18 18 18 Rate Blood Pressure 118/74 116/60 O2 Sat by Pulse 94 L 97 Oximetry 07/09/16 15:52 Temperature 101.8 F H Pulse Rate 104 H Pulse Rate [ Apical] Respiratory 18 Rate Blood Pressure 122/59 O2 Sat by Pulse 97 Oximetry - Reevaluation(s) Reevaluation #1: 07/09/16 15:22 Case was discussed with Dr. Ware who is familiar with this patient and will consult. He recommends ampicillin and gentamicin. EKG Findings - EKG Comments: EKG Findings:: Sinus tachycardia 107. Normal intervals. Normal axis. Normal QRS. Normal ST-T. Medical Decision Making - Medical Decision Making Patient reevaluated and updated. Case was discussed with Dr. Ware who did come evaluate the patient. He will admit to his service. Patient does meet sepsis criteria and IV and about X have been started. Patient did not take his antibiotics since prior discharge. - Lab Data Result diagrams: 07/09/16 14:48 07/09/16 14:48 Lab Results 07/09/16 07/09/16 07/09/16 Range/Units 14:48 14:48 14:48 WBC 11.1 H (3.8-10.6) k/uL RBC 4.26 L (4.30-5.90) m/uL Hgb 13.2 (13.0-17.5) gm/dL Hct 37.9 L (39.0-53.0) % MCV 88.9 (80.0-100.0) fL MCH 31.0 (25.0-35.0) pg MCHC 34.9 (31.0-37.0) g/dL RDW 13.5 (11.5-15.5) % Plt Count 126 L (150-450) k/uL Neutrophils % 84 % Lymphocytes % 8 % Monocytes % 6 % Eosinophils % 0 % Basophils % 0 % Neutrophils # 9.3 H (1.3-7.7) k/uL Lymphocytes # 0.9 L (1.0-4.8) k/uL Monocytes # 0.7 (0-1.0) k/uL Eosinophils # 0.0 (0-0.7) k/uL Basophils # 0.0 (0-0.2) k/uL PT (9.0-12.0) sec INR (<1.1) APTT (22.0-30.0) sec Sodium 138 (137-145) mmol/L Potassium 4.2 (3.5-5.1) mmol/L Chloride 104 (98-107) mmol/L Carbon Dioxide 23 (22-30) mmol/L Anion Gap 11 mmol/L BUN 12 (9-20) mg/dL Creatinine 1.10 (0.66-1.25) mg/dL Est GFR (MDRD) Af Amer >60 (>60 ml/min/1.73 sqM) Est GFR (MDRD) Non-Af >60 (>60 ml/min/1.73 sqM) Glucose 119 H (74-99) mg/dL Plasma Lactic Acid Cory 1.9 (0.7-2.0) mmol/L Calcium 8.3 L (8.4-10.2) mg/dL Total Bilirubin 1.5 H (0.2-1.3) mg/dL AST 14 L (17-59) U/L ALT 35 (21-72) U/L Alkaline Phosphatase 74 (38-126) U/L Total Protein 6.3 (6.3-8.2) g/dL Albumin 3.6 (3.5-5.0) g/dL Urine Color Urine Appearance (Clear) Urine pH (5.0-8.0) Ur Specific [place] (1.001-1.035) Urine Protein (Negative) Urine Glucose (UA) (Negative) Urine Ketones (Negative) Urine Blood (Negative) Urine Nitrate (Negative) Urine Bilirubin (Negative) Urine Urobilinogen (<2.0) mg/dL Ur Leukocyte Esterase (Negative) Urine RBC (0-5) /hpf Urine WBC (0-5) /hpf 07/09/16 07/09/16 Range/Units 14:48 15:15 WBC (3.8-10.6) k/uL RBC (4.30-5.90) m/uL Hgb (13.0-17.5) gm/dL Hct (39.0-53.0) % MCV (80.0-100.0) fL MCH (25.0-35.0) pg MCHC (31.0-37.0) g/dL RDW (11.5-15.5) % Plt Count (150-450) k/uL Neutrophils % % Lymphocytes % % Monocytes % % Eosinophils % % Basophils % % Neutrophils # (1.3-7.7) k/uL Lymphocytes # (1.0-4.8) k/uL Monocytes # (0-1.0) k/uL Eosinophils # (0-0.7) k/uL Basophils # (0-0.2) k/uL PT 11.7 (9.0-12.0) sec INR 1.2 (<1.1) APTT 23.3 (22.0-30.0) sec Sodium (137-145) mmol/L Potassium (3.5-5.1) mmol/L Chloride (98-107) mmol/L Carbon Dioxide (22-30) mmol/L Anion Gap mmol/L BUN (9-20) mg/dL Creatinine (0.66-1.25) mg/dL Est GFR (MDRD) Af Amer (>60 ml/min/1.73 sqM) Est GFR (MDRD) Non-Af (>60 ml/min/1.73 sqM) Glucose (74-99) mg/dL Plasma Lactic Acid Cory (0.7-2.0) mmol/L Calcium (8.4-10.2) mg/dL Total Bilirubin (0.2-1.3) mg/dL AST (17-59) U/L ALT (21-72) U/L Alkaline Phosphatase (38-126) U/L Total Protein (6.3-8.2) g/dL Albumin (3.5-5.0) g/dL Urine Color Yellow Urine Appearance Clear (Clear) Urine pH 6.0 (5.0-8.0) Ur Specific [place] 1.022 (1.001-1.035) Urine Protein 2+ H (Negative) Urine Glucose (UA) Trace H (Negative) Urine Ketones 1+ H (Negative) Urine Blood Moderate H (Negative) Urine Nitrate Negative (Negative) Urine Bilirubin Negative (Negative) Urine Urobilinogen 3.0 (<2.0) mg/dL Ur Leukocyte Esterase Small H (Negative) Urine RBC >182 H (0-5) /hpf Urine WBC 56 H (0-5) /hpf - Radiology Data Radiology results: image reviewed (Chest x-ray shows no acute process. KUB shows no acute process.) Critical Care Time Critical Care Time: Yes Total Critical Care Time: 32 Disposition Clinical Impression: Sepsis, Urinary tract infection Disposition: ADMITTED IP TO THIS [facility] Condition: Serious
[2016-07-09 15:14] LABS: INR 1.2 (<1.1); Partial Thromboplastin Time 23.3 sec (22.0-30.0); Prothrombin Time 11.7 sec (9.0-12.0)
[2016-07-09 15:17] LABS: ALT 35 U/L (21-72); AST 14 U/L (17-59); Alkaline Phosphatase 74 U/L (38-126); Anion Gap 11 mmol/L; Blood Urea Nitrogen 12 mg/dL (9-20); Calcium 8.3 mg/dL (8.4-10.2); Carbon Dioxide 23 mmol/L (22-30); Chloride 104 mmol/L (98-107); Glucose 119 mg/dL (74-99); Non-African American GFR(MDRD) >60 (>60 ml/min/1.73 sqM); Potassium 4.2 mmol/L (3.5-5.1); Sodium 138 mmol/L (137-145); Total Bilirubin 1.5 mg/dL (0.2-1.3); Total Protein 6.3 g/dL (6.3-8.2)
[2016-07-09] MEDS ORDERED: AMPICILLIN 2,000 MG in SODIUM CHLORIDE 0.9% 100 ML IVPB STA (15:21)
[2016-07-09] MEDS ORDERED: ONDANSETRON 4 MG/2 ML VIAL IVP STA (15:23)
[2016-07-09] MEDS ORDERED: GENTAMICIN PER PHARMACY MISCELLANE SCH (15:30)
--- NOTE | 2016-07-09 15:40 | XR ---
EXAMINATION TYPE: XR chest 2V DATE OF EXAM: 07/09/2016 3:19 PM COMPARISON: 03/17/2016 INDICATION: Fever TECHNIQUE: Single frontal view of the chest is obtained. FINDINGS: The heart size is normal. The pulmonary vasculature is normal. The lungs are clear. IMPRESSION: 1. No acute pulmonary process.
--- NOTE | 2016-07-09 15:41 | XR ---
EXAMINATION TYPE: XR abdomen 1V DATE OF EXAM: 07/09/2016 3:19 PM COMPARISON: NONE INDICATION: Fever TECHNIQUE: Single view abdomen FINDINGS: There is a normal bowel gas pattern. Right psoas margin is not well visualized. Vessels margins normal. No organomegaly is present. Right-sided ureteral stent is present. Suspicious calcification on the right is not identified. No fr ee air is evident. No suspicious air-fluid levels or differential air-fluid levels are present. No ma ss effect is evident. IMPRESSION: 1. Unremarkable Abdomen
[2016-07-09 15:52] LABS: Appearance,Urine Clear (Clear); Bilirubin,Urine Negative (Negative); Glucose,Urine (UA) Trace (Negative); Ketones,Urine 1+ (Negative); Leukocyte Esterase,Urine Small (Negative); Nitrite,Urine Negative (Negative); Particle Count 6169; Protein,Urine 2+ (Negative); RBC,Urine >182 /hpf (0-5); Specific Gravity,Urine 1.022 (1.001-1.035); UA Billing (MACRO vs. MICRO) MICRO; WBC,Urine 56 /hpf (0-5)
--- NOTE | 2016-07-09 15:57 | P.GSHP ---
History of Present Illness H&P Date: 07/09/16 The patient is a 45-year-old gentleman who came into the emergency room last night with fever and chills. He was diagnosed with a urinary tract infection. He had a history of a ureteral stent being placed for an obstructing stone last Sunday. He had persistent nausea and vomiting after being discharged from the emergency room last night and was never able to take his antibiotics. He presented back to the emergency room this afternoon with a temperature of 103 he is admitted for IV fluids and IV antibiotics because of the persistent nausea and vomiting and fever. His creatinine is normal at 1. The stent is in good placement on KUB. - Constitutional Constitutional: Reports anorexia, Reports chills - Gastrointestinal Gastrointestinal: Reports abdominal pain, Reports bloating - Genitourinary (Female) Genitourinary: Reports as per HPI Past Medical History Past Medical History: Chest Pain / Angina, Diabetes Mellitus, GERD/Reflux, Hyperlipidemia, Hypertension Additional Past Medical History / Comment(s): back, mood disturbance. Last Myocardial Infarction Date:: 2004 History of Any Multi-Drug Resistant Organisms: None Reported Past Surgical History: Hernia Repair Additional Past Surgical History / Comment(s): rt knee arthroscopy x2 last date 2012,cardiac stent x1 2004, stent placed for kidney stone 07/04/2016 Past Anesthesia/Blood Transfusion Reactions: No Reported Reaction Date of Last Stent Placement:: 2004 Past Psychological History: Anxiety, Bipolar, Depression Smoking Status: Current every day smoker Past Alcohol Use History: None Reported Past Drug Use History: None Reported - Past Family History Father Family Medical History: Congestive Heart Failure (CHF), Deep Vein Thrombosis ( DVT), Myocardial Infarction ([place]), Pulmonary Embolus Additional Family Medical History / Comment(s): [place] at age 38. "hole in colon" Mother Family Medical History: Cancer, COPD, Diabetes Mellitus, Hyperlipidemia Additional Family Medical History / Comment(s): breast and lung cancer Sister(s) Family Medical History: Diabetes Mellitus Additional Family Medical History / Comment(s): bi-polar, anxiety. hysterectomy Brother(s) History Unknown: Yes Medications and Allergies Home Medications Medication Instructions Recorded Confirmed Type Divalproex ER [Depakote ER] 500 mg PO TID 10/09/13 07/09/16 History traZODone HCL [traZODone] 75 mg PO HS 01/18/14 07/09/16 History Albuterol Sulfate [Ventolin HFA] 2 puff INHALATION RT-Q6H PRN 06/10/14 07/09/16 History metFORMIN HCL [Glucophage] 500 mg PO DAILY 06/10/14 07/09/16 History Atorvastatin [Lipitor] 40 mg PO HS 01/05/15 07/09/16 History Metoprolol Succinate [Toprol XL] 25 mg PO DAILY 01/05/15 07/09/16 History Aspirin EC [Ecotrin Low Dose] 81 mg PO DAILY 06/01/16 07/09/16 History Baclofen 10 mg PO TID 06/01/16 07/09/16 History Beclomethasone Dipropionate [Qvar 2 puff INHALATION RT-BID 06/01/16 07/09/16 History 80 mcg] Butalb/Acetaminophen/Caffeine 1 tab PO Q8H PRN 06/01/16 07/09/16 History [Fioricet 50-325-40] Montelukast Sodium [Singulair] 10 mg PO DAILY PRN 06/01/16 07/09/16 History Venlafaxine HCl ER [Effexor Xr] 37.5 mg PO HS 06/01/16 07/09/16 History oxyCODONE-APAP 5-325MG [Percocet 1 tab PO BID PRN 06/01/16 07/09/16 History 5-325 mg] Acetaminophen Tab [Tylenol Tab] 650 mg PO Q6H PRN 07/09/16 07/09/16 History Allergies Allergy/AdvReac Type Severity Reaction Status Date / Time naproxen [From Naprosyn] Allergy Unknown Rash/Hives Verified 07/09/16 15:41 carrot Allergy Dyspnea Verified 07/09/16 15:41 chocolate flavor Allergy Dyspnea Verified 07/09/16 15:41 grass pollen-perennial rye, Allergy Dyspnea Verified 07/09/16 15:41 standar Surgical - Exam Vital Signs Temp Pulse Resp BP Pulse Ox 103.9 F H 117 H 18 118/74 94 L 07/09/16 14:46 07/09/16 14:46 07/09/16 14:46 07/09/16 14:46 07/09/16 14:46 - General well developed, well nourished, no distress, moderate distress - Eyes PERRL - ENT no hearing loss - Neck trachea midline - Respiratory normal expansion, normal respiratory effort - Cardiovascular Rhythm: regular - Abdomen Abdomen: soft, non tender - Genitourinary normal penis with no external lesions, testicles present - Integumentary no rash, no growths - Musculoskeletal normal posture - Psychiatric oriented to time, oriented to person, oriented to place Results - Labs 07/09/16 14:48 07/09/16 14:48 Abnormal Lab Results - Last 24 Hours (Table) 07/09/16 07/09/16 07/09/16 Range/Units 14:48 14:48 15:15 WBC 11.1 H (3.8-10.6) k/uL RBC 4.26 L (4.30-5.90) m/uL Hct 37.9 L (39.0-53.0) % Plt Count 126 L (150-450) k/uL Neutrophils # 9.3 H (1.3-7.7) k/uL Lymphocytes # 0.9 L (1.0-4.8) k/uL Glucose 119 H (74-99) mg/dL Calcium 8.3 L (8.4-10.2) mg/dL Total Bilirubin 1.5 H (0.2-1.3) mg/dL AST 14 L (17-59) U/L Urine Protein 2+ H (Negative) Urine Glucose (UA) Trace H (Negative) Urine Ketones 1+ H (Negative) Urine Blood Moderate H (Negative) Ur Leukocyte Esterase Small H (Negative) Urine RBC >182 H (0-5) /hpf Urine WBC 56 H (0-5) /hpf Diabetes panel 07/09/16 Range/Units 14:48 Sodium 138 (137-145) mmol/L Potassium 4.2 (3.5-5.1) mmol/L Chloride 104 (98-107) mmol/L Carbon Dioxide 23 (22-30) mmol/L BUN 12 (9-20) mg/dL Creatinine 1.10 (0.66-1.25) mg/dL Glucose 119 H (74-99) mg/dL Calcium 8.3 L (8.4-10.2) mg/dL AST 14 L (17-59) U/L ALT 35 (21-72) U/L Alkaline Phosphatase 74 (38-126) U/L Total Protein 6.3 (6.3-8.2) g/dL Albumin 3.6 (3.5-5.0) g/dL Calcium panel 07/09/16 Range/Units 14:48 Calcium 8.3 L (8.4-10.2) mg/dL Albumin 3.6 (3.5-5.0) g/dL Pituitary panel 07/09/16 Range/Units 14:48 Sodium 138 (137-145) mmol/L Potassium 4.2 (3.5-5.1) mmol/L Chloride 104 (98-107) mmol/L Carbon Dioxide 23 (22-30) mmol/L BUN 12 (9-20) mg/dL Creatinine 1.10 (0.66-1.25) mg/dL Glucose 119 H (74-99) mg/dL Calcium 8.3 L (8.4-10.2) mg/dL Adrenal panel 07/09/16 Range/Units 14:48 Sodium 138 (137-145) mmol/L Potassium 4.2 (3.5-5.1) mmol/L Chloride 104 (98-107) mmol/L Carbon Dioxide 23 (22-30) mmol/L BUN 12 (9-20) mg/dL Creatinine 1.10 (0.66-1.25) mg/dL Glucose 119 H (74-99) mg/dL Calcium 8.3 L (8.4-10.2) mg/dL Total Bilirubin 1.5 H (0.2-1.3) mg/dL AST 14 L (17-59) U/L ALT 35 (21-72) U/L Alkaline Phosphatase 74 (38-126) U/L Total Protein 6.3 (6.3-8.2) g/dL Albumin 3.6 (3.5-5.0) g/dL Assessment and Plan Plan: Impression: Febrile urinary tract infection status post placement of double-J catheter. Persistent nausea and vomiting. Pdv-[id number]-[id number] diabetes. Coronary disease. Recommendations: Because of the persistent nausea and vomiting he'll be admitted for IV fluids and IV antibiotics. Cultures have been obtained. Based on the x-ray and his creatinine I do not think he is obstructed. I will notify of his admission.
[2016-07-09] MEDS ORDERED: NALOXONE 0.4 MG/ML 1 ML VIAL IV PRN (15:59)
[2016-07-09] MEDS ORDERED: ONDANSETRON 4 MG/2 ML VIAL IVP PRN (16:10)
[2016-07-09] MEDS ORDERED: GENTAMICIN 560 MG in SODIUM CHLORIDE 0.9% 100 ML IVPB ONE (16:15)
[2016-07-09 17:49] VITALS: BMI 31.4
[2016-07-09] MEDS ORDERED: ALBUTEROL NEBULIZED 2.5 MG/3 ML INHALATION PRN (18:25)
[2016-07-09] MEDS ORDERED: MONTELUKAST 10 MG TAB PO PRN (18:25)
[2016-07-09] MEDS: ACETAMINOPHEN TAB 325 MG TAB PO PRN (20:07)
[2016-07-09] MEDS: ATORVASTATIN 40 MG TAB PO SCH (20:08)
[2016-07-09] MEDS: traZODone HCL 50 MG TAB PO SCH (20:08)
[2016-07-09] MEDS: FAMOTIDINE 20 MG TAB PO SCH (20:08)
[2016-07-09] MEDS: SULFAMETHOX-TMP 800-160MG 1 EACH TAB PO SCH (20:08)
[2016-07-09] MEDS: AMPICILLIN 2,000 MG in SODIUM CHLORIDE 0.9% 100 ML IVPB SCH ×2 (20:09→23:13)
[2016-07-09] MEDS: VENLAFAXINE HCL ER 37.5 MG CAP PO SCH (20:09)
[2016-07-09] MEDS: BACLOFEN 10 MG TAB PO SCH (21:33)
[2016-07-09] MEDS: DIVALPROEX ER 500 MG TAB.ER.24H PO SCH (21:33)
[2016-07-10] MEDS: IBUPROFEN 400 MG TAB PO PRN ×2 (00:18→08:28)
[2016-07-10 00:29] LABS: Glucose,Whole Blood 107 mg/dL (75-99)
[2016-07-10] MEDS: BECLOMETHASONE DIP 80 MCG/PUFF INHALER INHALATION SCH ×3 (03:20→19:33)
[2016-07-10] MEDS: AMPICILLIN 2,000 MG in SODIUM CHLORIDE 0.9% 100 ML IVPB SCH ×4 (03:52→15:42)
[2016-07-10] MEDS: ACETAMINOPHEN TAB 325 MG TAB PO PRN ×4 (05:33→21:15)
[2016-07-10 07:09] LABS: Glucose,Whole Blood 105 mg/dL (75-99)
[2016-07-10 08:19] LABS: Basophils % (A) 0 %; CH 31.9; CHCM 35.2; Eosinophils % (A) 0 %; HCT 32.2 % (39.0-53.0); HDW 3.06; HGB 11.2 gm/dL (13.0-17.5); Luc # (Auto) 0.12; Luc % (Auto) 2; Lymphocytes # (A) 0.4 k/uL (1.0-4.8); Lymphocytes % (A) 5 %; MCH 31.7 pg (25.0-35.0); MCHC 34.9 g/dL (31.0-37.0); MCV 90.9 fL (80.0-100.0); Mean Platelet Volume 8.2; Monocytes # (A) 0.3 k/uL (0-1.0); Monocytes % (A) 5 %; Neutrophils # (A) 6.4 k/uL (1.3-7.7); Neutrophils % (A) 88 %; RBC 3.54 m/uL (4.30-5.90); RDW 13.3 % (11.5-15.5); WBC 7.2 k/uL (3.8-10.6); WBC (Perox) 7.76
[2016-07-10 08:25] LABS: Anion Gap 9 mmol/L; Blood Urea Nitrogen 10 mg/dL (9-20); Calcium 8.1 mg/dL (8.4-10.2); Carbon Dioxide 22 mmol/L (22-30); Chloride 108 mmol/L (98-107); Glucose 106 mg/dL (74-99); Non-African American GFR(MDRD) >60 (>60 ml/min/1.73 sqM); Potassium 3.6 mmol/L (3.5-5.1); Sodium 139 mmol/L (137-145)
[2016-07-10] MEDS: ASPIRIN 81 MG CHEW PO SCH (08:29)
[2016-07-10] MEDS: DIVALPROEX ER 500 MG TAB.ER.24H PO SCH ×3 (08:29→21:11)
[2016-07-10] MEDS: FAMOTIDINE 20 MG TAB PO SCH ×2 (08:29→20:05)
[2016-07-10] MEDS: BACLOFEN 10 MG TAB PO SCH ×3 (08:29→21:11)
[2016-07-10] MEDS: METOPROLOL SUCCINATE (ER) 25 MG TAB.ER.24H PO SCH (08:30)
[2016-07-10] MEDS: SULFAMETHOX-TMP 800-160MG 1 EACH TAB PO SCH ×2 (08:30→20:05)
[2016-07-10] MEDS: TAMSULOSIN 0.4 MG CAP.ER.24H PO SCH (08:30)
[2016-07-10] MEDS ORDERED: GENTAMICIN 80 MG in SODIUM CHLORIDE 0.9% 100 ML IVPB SCH (09:00)
[2016-07-10] MEDS ORDERED: metFORMIN 500 MG TAB PO SCH (09:00)
[2016-07-10] MEDS: LACTATED RINGERS 1,000 ML IV SCH ×2 (11:50→20:11)
[2016-07-10 12:22] LABS: Glucose,Whole Blood 92 mg/dL (75-99)
[2016-07-10] MEDS: INSULIN LISPRO (humaLOG) 300 UNIT/3 ML VIAL SQ SCH ×3 (12:31→22:23)
--- NOTE | 2016-07-10 15:49 | P.PN ---
Progress Note - Text Mr. Burnham remains febrile. His urine culture is pending. He states that he experienced mild dysuria, which has resolved. He reports right-sided abdominal pain with micturition, which is almost certainly related to his stent. He was being treated with ampicillin and gentamicin, but the gentamicin has been changed to Bactrim by Medicine. Am concerned that the combination of ampicillin and Bactrim does not provide adequate broad-spectrum coverage, pending the urine culture result. Dr. Valenzuela has been consulted, so I will defer making any additional antibiotic changes and will await Dr. Valenzuela' recommendations.
[2016-07-10] MEDS ORDERED: GENTAMICIN 560 MG in SODIUM CHLORIDE 0.9% 100 ML IVPB SCH (16:00)
[2016-07-10 16:57] LABS: Glucose,Whole Blood 109 mg/dL (75-99)
--- NOTE | 2016-07-10 19:18 | P.CONS ---
History of Present Illness - Reason for Consult Consult date: 07/10/16 - Chief Complaint Fever and chills - History of Present Illness 45-year-old male presented to the emergency center for a second time with fever chills and rigors. Even in the ear a few days prior with similar symptoms. There was concerns for urinary tract infection given his history of recent intervention. He was placed on trimethoprim sulfamethoxazole and discharged from the . He'll continue to have ongoing fevers and chills. He also had nausea and emesis increasing amounts of discomfort. Consequently he presented back to the emergency center. There with evidence of sepsis he is admitted to hospital in the infectious diseases consultation was requested. This related that on Sunday before admission was having difficulties with the ureteral stone and underwent a right renal system stent for the obstruction. Has been seen by urology with no needs for any further surgical intervention at this time. Review of Systems As noted is complaining of fever chills and rigor improved at this time HEENT:Denies headache or acute visual change. Denies sinus or mouth discomforts. Denies neck stiffness or pain. Denies significant oral cavity pain. Denies difficulty on swallowing. Lungs: Denies significant shortness of breath, cough, sputum production, or hemoptysis. Cardiovascular: Denies significant shortness of breath, chest pain, chest wall pain, orthopnea, dyspnea on exertion, syncope Gastrointestinal: He has had nausea with emesis but no significant diarrhea. No hematemesis melena or hematochezia. Has some right flank pain but no other abdominal pain. Musculoskeletal: denies significant myalgias or arthralgias. No new joint swelling. Denies new back pain. Skin: Denies new rash or lesions. No new ulcers or wounds are related.. Neuro: Denies headache or visual change. Denies any new onset weakness or difficulty with ambulation. Denies falls or seizures. Psychiatric:Denies anxiety or depression. Endocrine: Denies significant fatigue, denies significant weight loss or weight gain. Past Medical History Past Medical History: Chest Pain / Angina, Diabetes Mellitus, GERD/Reflux, Hyperlipidemia, Hypertension, Myocardial Infarction ([place]) Additional Past Medical History / Comment(s): back, mood disturbance. Last Myocardial Infarction Date:: 2004 History of Any Multi-Drug Resistant Organisms: None Reported Past Surgical History: Hernia Repair, Joint Replacement Additional Past Surgical History / Comment(s): rt knee arthroscopy x3, lt knee arthroscopy last date 2012,total knee replacement rt knee; cardiac stent x1 2004 , stent placed for kidney stone 07/04/2016 Past Anesthesia/Blood Transfusion Reactions: No Reported Reaction Date of Last Stent Placement:: 2004 Past Psychological History: Anxiety, Bipolar, Depression Additional Psychological History / Comment(s): Lives with his callum. Bony. Was in service for [address] [employer] and traveled through the [place] and in [place]. No international travel since. No animal exposures. Ongoing tobacco use. No smoking alcohol or current recreational drug use Smoking Status: Current every day smoker Past Alcohol Use History: None Reported Past Drug Use History: None Reported - Past Family History Father Family Medical History: Congestive Heart Failure (CHF), Deep Vein Thrombosis ( DVT), Myocardial Infarction ([place]), Pulmonary Embolus Additional Family Medical History / Comment(s): [place] at age 38. "hole in colon" Mother Family Medical History: Cancer, COPD, Diabetes Mellitus, Hyperlipidemia Additional Family Medical History / Comment(s): breast and lung cancer Sister(s) Family Medical History: Diabetes Mellitus Additional Family Medical History / Comment(s): bi-polar, anxiety. hysterectomy Brother(s) History Unknown: Yes Medications and Allergies Home Medications and Allergies Comment(s): Current Medications Acetaminophen (Tylenol Tab) 650 mg PO Q6HR PRN PRN Reason: Mild Pain or Fever > 100.5 Last Admin: 07/10/16 15:42 Dose: 650 mg Acetaminophen/Butalbital/Caffeine (Fioricet 50-325-40) 1 each PO Q8H PRN PRN Reason: Headache Albuterol Sulfate (Ventolin Nebulized) 2.5 mg INHALATION RT-Q6H PRN PRN Reason: Wheezing Aspirin (Aspirin) 81 mg PO DAILY [facility] Last Admin: 07/10/16 08:29 Dose: 81 mg Atorvastatin Calcium (Lipitor) 40 mg PO HS [facility] Last Admin: 07/09/16 20:08 Dose: 40 mg Baclofen (Lioresal) 10 mg PO TID [facility] Last Admin: 07/10/16 15:42 Dose: 10 mg Beclomethasone Dipropionate (Qvar) 2 puff INHALATION RT-BID [facility] Last Admin: 07/10/16 07:41 Dose: Not Given Divalproex Sodium (Depakote Er) 500 mg PO TID [facility] Last Admin: 07/10/16 15:42 Dose: 500 mg Famotidine (Pepcid) 20 mg PO BID [facility] Last Admin: 07/10/16 08:29 Dose: 20 mg Ampicillin Sodium 2,000 mg/ (Sodium Chloride) 100 mls @ 100 mls/hr IVPB Q4HR [facility] Last Admin: 07/10/16 15:42 Dose: 100 mls/hr Lactated Ringer's (Lactated Ringers) 1,000 mls @ 125 mls/hr IV .Q8H [facility] Last Admin: 07/10/16 11:50 Dose: 125 mls/hr Insulin Human Lispro (Humalog) 0 unit SQ ACHS [facility] PRN Reason: Protocol Last Admin: 07/10/16 17:08 Dose: Not Given Metoprolol Succinate (Toprol Xl) 25 mg PO DAILY [facility] Last Admin: 07/10/16 08:30 Dose: 25 mg Montelukast Sodium (Singulair) 10 mg PO DAILY PRN PRN Reason: Allergy Symptoms Naloxone HCl (Narcan) 0.2 mg IV Q2M PRN PRN Reason: Opioid Reversal Ondansetron HCl (Zofran) 4 mg IVP Q8HR PRN PRN Reason: Nausea And Vomiting Last Admin: 07/10/16 00:18 Dose: 4 mg Oxycodone/Acetaminophen (Percocet 5-325) 1 each PO BID PRN PRN Reason: Pain Tamsulosin HCl (Flomax) 0.4 mg PO DAILY [facility] Last Admin: 07/10/16 08:30 Dose: 0.4 mg Trazodone HCl (Desyrel) 75 mg PO [facility] Last Admin: 07/09/16 20:08 Dose: 75 mg Trimethoprim/Sulfamethoxazole (Bactrim Ds) 1 each PO Q12HR [facility] Last Admin: 07/10/16 08:30 Dose: 1 each Venlafaxine HCl (Effexor Xr) 37.5 mg PO [facility] Last Admin: 07/09/16 20:09 Dose: 37.5 mg Home Medications Medication Instructions Recorded Confirmed Type Divalproex ER [Depakote ER] 500 mg PO TID 10/09/13 07/09/16 History traZODone HCL [traZODone] 75 mg PO HS 01/18/14 07/09/16 History Albuterol Sulfate [Ventolin HFA] 2 puff INHALATION RT-Q6H PRN 06/10/14 07/09/16 History metFORMIN HCL [Glucophage] 500 mg PO DAILY 06/10/14 07/09/16 History Atorvastatin [Lipitor] 40 mg PO HS 01/05/15 07/09/16 History Metoprolol Succinate [Toprol XL] 25 mg PO DAILY 01/05/15 07/09/16 History Aspirin EC [Ecotrin Low Dose] 81 mg PO DAILY 06/01/16 07/09/16 History Baclofen 10 mg PO TID 06/01/16 07/09/16 History Beclomethasone Dipropionate [Qvar 2 puff INHALATION RT-BID 06/01/16 07/09/16 History 80 mcg] Butalb/Acetaminophen/Caffeine 1 tab PO Q8H PRN 06/01/16 07/09/16 History [Fioricet 50-325-40] Montelukast Sodium [Singulair] 10 mg PO DAILY PRN 06/01/16 07/09/16 History Venlafaxine HCl ER [Effexor Xr] 37.5 mg PO HS 06/01/16 07/09/16 History oxyCODONE-APAP 5-325MG [Percocet 1 tab PO BID PRN 06/01/16 07/09/16 History 5-325 mg] Acetaminophen Tab [Tylenol Tab] 650 mg PO Q6H PRN 07/09/16 07/09/16 History Allergies Allergy/AdvReac Type Severity Reaction Status Date / Time naproxen [From Naprosyn] Allergy Unknown Rash/Hives Verified 07/09/16 15:41 carrot Allergy Dyspnea Verified 07/09/16 15:41 chocolate flavor Allergy Dyspnea Verified 07/09/16 15:41 grass pollen-perennial rye, Allergy Dyspnea Verified 07/09/16 15:41 standar Physical Exam Vitals: Vital Signs Temp Pulse Pulse Resp BP Pulse Ox 07/10/16 15:48 114 H 104 H 18 07/10/16 15:33 102.6 F H 07/10/16 14:48 99.6 F 104 H 18 129/70 98 07/10/16 11:47 100.6 F H 07/10/16 08:00 114 H 107 H 18 07/10/16 07:57 94 L 07/10/16 07:00 100.6 F H 107 H 18 135/63 07/10/16 06:17 99.6 F 07/10/16 05:35 101.4 F H 07/10/16 01:43 101.6 F H 07/10/16 00:00 18 07/09/16 23:00 102.7 F H 105 H 18 127/71 99 07/09/16 19:58 102.6 F H Intake and Output 07/10/16 07/10/16 07/10/16 06:59 14:59 22:59 Intake Total 550 Output Total 600 Balance -50 Intake: IV 550 Ampicillin 2,000 mg In 200 Sodium Chloride 0.9% 100 ml @ 100 mls/hr IVPB Q4HR [facility] Rx#:[id number] Gentamicin 80 mg In 100 Sodium Chloride 0.9% 100 ml @ 102 mls/hr IVPB Q8HR [facility] Rx#:[id number] Lactated Ringers 1,000 ml 250 @ 125 mls/hr IV .Q8H [facility] Rx#:[id number] Output: Urine 600 Other: # Voids 1 # Bowel Movements 1 45-year-old male who appears older than his stated age HEENT: Anicteric conjunctiva are pink and moist nasal mucosa grossly intact without significant lesions, there is no thrush. Neck: The neck is supple without significant lymphadenopathy or thyromegaly. Lungs: Good bilateral air entry without significant crackles or wheezing. There is no significant bronchial sounds. There is no egophony or dullness. Heart: Regular rate and rhythm with an audible S1-S2, no S3 no S4. There is no significant murmur click or rub, PMI was nondisplaced. Abdomen: Positive bowel sounds soft without palpable masses or organomegaly. There was no guarding or rebound. His only minimal right flank tenderness with no bruising being noted to the area. No significant suprapubic tenderness is noted Extremities: The upper extremities have excellent pulses they are symmetric, no significant petechiae or telangiectasia. No splinter hemorrhages were noted. The lower extremities are free from significant edema. The peripheral pulses were 2+ and symmetric. Neuro: Awake alert oriented to person place and time. There are no acute new gross focal sensory motor deficits. Results CBC & Chem 7: 07/10/16 07:39 07/10/16 07:39 Labs: Abnormal Lab Results - Last 24 Hours (Table) 07/10/16 07/10/16 07/10/16 Range/Units 00:26 07:07 07:39 RBC 3.54 L (4.30-5.90) m/uL Hgb 11.2 L (13.0-17.5) gm/dL Hct 32.2 L (39.0-53.0) % Plt Count 95 L (150-450) k/uL Lymphocytes # 0.4 L (1.0-4.8) k/uL Chloride (98-107) mmol/L Glucose (74-99) mg/dL POC Glucose (mg/dL) 107 H 105 H (75-99) mg/dL Calcium (8.4-10.2) mg/dL 07/10/16 07/10/16 Range/Units 07:39 16:55 RBC (4.30-5.90) m/uL Hgb (13.0-17.5) gm/dL Hct (39.0-53.0) % Plt Count (150-450) k/uL Lymphocytes # (1.0-4.8) k/uL Chloride 108 H (98-107) mmol/L Glucose 106 H (74-99) mg/dL POC Glucose (mg/dL) 109 H (75-99) mg/dL Calcium 8.1 L (8.4-10.2) mg/dL Laboratory Results WBC 7.2 k/uL (3.8-10.6) 07/10/16 07:39 RBC 3.54 m/uL (4.30-5.90) L 07/10/16 07:39 Hgb 11.2 gm/dL (13.0-17.5) L 07/10/16 07:39 Hct 32.2 % (39.0-53.0) L 07/10/16 07:39 MCV 90.9 fL (80.0-100.0) 07/10/16 07:39 MCH 31.7 pg (25.0-35.0) 07/10/16 07:39 MCHC 34.9 g/dL (31.0-37.0) 07/10/16 07:39 RDW 13.3 % (11.5-15.5) 07/10/16 07:39 Plt Count 95 k/uL (150-450) L 07/10/16 07:39 Neutrophils % 88 % 07/10/16 07:39 Lymphocytes % 5 % 07/10/16 07:39 Monocytes % 5 % 07/10/16 07:39 Eosinophils % 0 % 07/10/16 07:39 Basophils % 0 % 07/10/16 07:39 Neutrophils # 6.4 k/uL (1.3-7.7) 07/10/16 07:39 Lymphocytes # 0.4 k/uL (1.0-4.8) L 07/10/16 07:39 Monocytes # 0.3 k/uL (0-1.0) 07/10/16 07:39 Eosinophils # 0.0 k/uL (0-0.7) 07/10/16 07:39 Basophils # 0.0 k/uL (0-0.2) 07/10/16 07:39 PT 11.7 sec (9.0-12.0) 07/09/16 14:48 INR 1.2 (<1.1) 07/09/16 14:48 APTT 23.3 sec (22.0-30.0) 07/09/16 14:48 Sodium 139 mmol/L (137-145) 07/10/16 07:39 Potassium 3.6 mmol/L (3.5-5.1) 07/10/16 07:39 Chloride 108 mmol/L (98-107) H 07/10/16 07:39 Carbon Dioxide 22 mmol/L (22-30) 07/10/16 07:39 Anion Gap 9 mmol/L 07/10/16 07:39 BUN 10 mg/dL (9-20) 07/10/16 07:39 Creatinine 0.91 mg/dL (0.66-1.25) 07/10/16 07:39 Est GFR (MDRD) Af Amer >60 (>60 ml/min/1.73 sqM) 07/10/16 07:39 Est GFR (MDRD) Non-Af >60 (>60 ml/min/1.73 sqM) 07/10/16 07:39 Glucose 106 mg/dL (74-99) H 07/10/16 07:39 POC Glucose (mg/dL) 109 mg/dL (75-99) H 07/10/16 16:55 POC Glu [employer] Chair ID Yesika Coronado 07/10/16 16:55 Plasma Lactic Acid Cory 1.9 mmol/L (0.7-2.0) 07/09/16 14:48 Calcium 8.1 mg/dL (8.4-10.2) L 07/10/16 07:39 Total Bilirubin 1.5 mg/dL (0.2-1.3) H 07/09/16 14:48 AST 14 U/L (17-59) L 07/09/16 14:48 ALT 35 U/L (21-72) 07/09/16 14:48 Alkaline Phosphatase 74 U/L (38-126) 07/09/16 14:48 Total Protein 6.3 g/dL (6.3-8.2) 07/09/16 14:48 Albumin 3.6 g/dL (3.5-5.0) 07/09/16 14:48 Urine Color Yellow 07/09/16 15:15 Urine Appearance Clear (Clear) 07/09/16 15:15 Urine pH 6.0 (5.0-8.0) 07/09/16 15:15 Ur Specific [place] 1.022 (1.001-1.035) 07/09/16 15:15 Urine Protein 2+ (Negative) H 07/09/16 15:15 Urine Glucose (UA) Trace (Negative) H 07/09/16 15:15 Urine Ketones 1+ (Negative) H 07/09/16 15:15 Urine Blood Moderate (Negative) H 07/09/16 15:15 Urine Nitrate Negative (Negative) 07/09/16 15:15 Urine Bilirubin Negative (Negative) 07/09/16 15:15 Urine Urobilinogen 3.0 mg/dL (<2.0) 07/09/16 15:15 Ur Leukocyte Esterase Small (Negative) H 07/09/16 15:15 Urine RBC >182 /hpf (0-5) H 07/09/16 15:15 Urine WBC 56 /hpf (0-5) H 07/09/16 15:15 Random Gentamicin 2.0 ug/mL 07/10/16 01:31 Microbiology 07/09/16 14:48 Blood Blood Culture - Preliminary No Growth after 24 hours 07/09/16 15:17 Urine,Voided Urine Culture - Preliminary Assessment and Plan (1) Sepsis Narrative/Plan: 45-year-old male presents to the emergency center with ongoing fever chills and rigor. He has a known history of recent intervention into the right collecting system because of obstruction. Ureteral stent was placed. The patient developed fever and was placed on trimethoprim sulfamethoxazole but apparently did not start that medication. He now presents again with ongoing symptoms and is admitted for treatment of his sepsis related to his urinary system. Outside data is being attempted to be acquired as far as potential pathogens. Is being treated with ampicillin and gentamicin. Bactrim also being utilized. Cultures from the surgical center were not available. Awaiting office cultures. While pending utilize ertapenem for treatment of ESBL and other resistant pathogens. Ongoing tight glucose control be helpful It is tender no evidence of any renal failure Responding well to antiemetics as far as nausea and emesis. Cultures will direct if outpatient intravenous antibiotic therapy is needed. Status: Acute (2) Urinary tract infection Status: Acute (3) Diabetes mellitus type 2, uncontrolled, with complications Status: Acute
[2016-07-10] MEDS: traZODone HCL 50 MG TAB PO SCH (20:05)
[2016-07-10] MEDS: VENLAFAXINE HCL ER 37.5 MG CAP PO SCH (20:05)
[2016-07-10] MEDS: ATORVASTATIN 40 MG TAB PO SCH (20:05)
[2016-07-10] MEDS: ERTAPENEM 1 GM in SODIUM CHLORIDE 0.9% 50 ML IVPB SCH (20:05)
[2016-07-10 20:57] LABS: Hemoglobin A1C 5.3 % (4.2-6.1)
[2016-07-10 22:21] LABS: Glucose,Whole Blood 107 mg/dL (75-99)
[2016-07-11] MEDS: ACETAMINOPHEN TAB 325 MG TAB PO PRN (02:33)
[2016-07-11] MEDS: LACTATED RINGERS 1,000 ML IV SCH ×3 (05:20→19:45)
[2016-07-11 06:55] LABS: Glucose,Whole Blood 102 mg/dL (75-99)
[2016-07-11] MEDS: BECLOMETHASONE DIP 80 MCG/PUFF INHALER INHALATION SCH ×2 (07:46→19:10)
[2016-07-11] MEDS: INSULIN LISPRO (humaLOG) 300 UNIT/3 ML VIAL SQ SCH ×4 (07:52→21:15)
[2016-07-11] MEDS: DIVALPROEX ER 500 MG TAB.ER.24H PO SCH ×3 (09:17→21:33)
[2016-07-11] MEDS: SULFAMETHOX-TMP 800-160MG 1 EACH TAB PO SCH ×2 (09:17→20:05)
[2016-07-11] MEDS: FAMOTIDINE 20 MG TAB PO SCH ×2 (09:17→20:06)
[2016-07-11] MEDS: TAMSULOSIN 0.4 MG CAP.ER.24H PO SCH (09:18)
[2016-07-11] MEDS: ASPIRIN 81 MG CHEW PO SCH (09:18)
[2016-07-11] MEDS: BACLOFEN 10 MG TAB PO SCH ×3 (09:18→21:33)
[2016-07-11] MEDS: METOPROLOL SUCCINATE (ER) 25 MG TAB.ER.24H PO SCH (09:18)
[2016-07-11] MEDS: BUTALB/APAP/CAFF 50-325-40MG TAB PO PRN ×2 (09:29→14:56)
[2016-07-11 10:41] LABS: Anion Gap 12 mmol/L; Carbon Dioxide 22 mmol/L (22-30); Chloride 106 mmol/L (98-107); Glucose 96 mg/dL (74-99); Non-African American GFR(MDRD) >60 (>60 ml/min/1.73 sqM); Sodium 140 mmol/L (137-145)
[2016-07-11 10:42] LABS: Blood Urea Nitrogen 12 mg/dL (9-20); Potassium 4.5 mmol/L (3.5-5.1)
[2016-07-11 12:06] LABS: Glucose,Whole Blood 98 mg/dL (75-99)
[2016-07-11] MEDS: ERTAPENEM 1 GM in SODIUM CHLORIDE 0.9% 50 ML IVPB SCH (16:54)
[2016-07-11 17:00] LABS: Glucose,Whole Blood 105 mg/dL (75-99)
--- NOTE | 2016-07-11 18:47 | P.PN ---
Subjective Principal diagnosis: Fever, nausea Mr. Burnham is feeling somewhat better today. He continues to be intermittently febrile, but he states that his nausea is somewhat improved. He reports mild right-sided abdominal discomfort. Objective - Vital Signs Vital signs: Vital Signs Temp 99.3 F 07/11/16 16:51 Pulse 114 H 07/11/16 16:50 Resp 16 07/11/16 16:50 BP 128/67 07/11/16 15:00 Pulse Ox 97 07/11/16 15:00 Intake & Output 07/10/16 07/11/16 07/11/16 18:59 06:59 18:59 Intake Total 550 1725 Output Total 600 Balance -50 1725 Intake: IV 550 1425 Ampicillin 2,000 mg In 200 Sodium Chloride 0.9% 100 ml @ 100 mls/hr IVPB Q4HR [facility] Rx#:[id number] Ertapenem 1 gm In Sodium 50 Chloride 0.9% 50 ml @ 100 mls/hr IVPB Q24HR@1800 [facility] Rx#:[id number] Gentamicin 80 mg In 100 Sodium Chloride 0.9% 100 ml @ 102 mls/hr IVPB Q8HR [facility] Rx#:[id number] Lactated Ringers 1,000 ml 250 1375 @ 125 mls/hr IV .Q8H [facility] Rx#:[id number] Oral 300 Output: Urine 600 Other: Voiding Method Toilet Toilet # Voids 2 2 - Constitutional General appearance: Present: average body habitus, no acute distress - Gastrointestinal General gastrointestinal: Present: soft. Absent: distended Localized gastrointestinal: tender: RUQ, RLQ - Labs CBC & Chem 7: 07/10/16 07:39 07/11/16 09:21 Labs: Abnormal Lab Results - Last 24 Hours (Table) 07/10/16 07/11/16 07/11/16 Range/Units 22:15 06:54 16:58 POC Glucose (mg/dL) 107 H 102 H 105 H (75-99) mg/dL Assessment and Plan (1) Sepsis Status: Acute Plan: Blood cultures are negative. The urine culture is pending. Antibiotics will be continued, pending the urine culture result, as his condition is somewhat improved. However, given that his predominant symptom is nausea, I am becoming skeptical that his diagnosis is a febrile UTI.
[2016-07-11] MEDS: ATORVASTATIN 40 MG TAB PO SCH (20:05)
[2016-07-11] MEDS: traZODone HCL 50 MG TAB PO SCH (20:06)
[2016-07-11] MEDS: VENLAFAXINE HCL ER 37.5 MG CAP PO SCH (20:06)
[2016-07-11] MEDS: oxyCODONE-APAP 5-325MG 1 EACH TAB PO PRN (20:09)
[2016-07-11 20:48] LABS: Glucose,Whole Blood 125 mg/dL (75-99)
--- NOTE | 2016-07-11 23:32 | P.PN ---
Subjective Principal diagnosis: fever 45-year-old male presented to the emergency center for a second time with fever chills and rigors. Even in the ear a few days prior with similar symptoms. There was concerns for urinary tract infection given his history of recent intervention. He was placed on trimethoprim sulfamethoxazole and discharged from the . He'll continue to have ongoing fevers and chills. He also had nausea and emesis increasing amounts of discomfort. Consequently he presented back to the emergency center. There with evidence of sepsis he is admitted to hospital in the infectious diseases consultation was requested. This related that on Sunday before admission was having difficulties with the ureteral stone and underwent a right renal system stent for the obstruction. Has been seen by urology with no needs for any further surgical intervention at this time. Is feeling somewhat better today. was able to eat some food today. Nausea and emesis improved. Is only having some mild right-sided flank pain. Has had fever overnight but improved this morning Objective - Vital Signs Vital signs: Vital Signs Temp 99.3 F 07/11/16 16:51 Pulse 114 H 07/11/16 16:50 Resp 16 07/11/16 16:50 BP 128/67 07/11/16 15:00 Pulse Ox 97 07/11/16 15:00 Intake & Output 07/11/16 07/11/16 07/12/16 06:59 18:59 06:59 Intake Total 1725 Balance 1725 Intake: IV 1425 Ertapenem 1 gm In Sodium 50 Chloride 0.9% 50 ml @ 100 mls/hr IVPB Q24HR@1800 [facility] Rx#:[id number] Lactated Ringers 1,000 ml 1375 @ 125 mls/hr IV .Q8H [facility] Rx#:[id number] Oral 300 Other: Voiding Method Toilet Toilet Toilet # Voids 2 2 1 - Exam 45-year-old male who appears older than his stated age HEENT: Anicteric conjunctiva are pink and moist nasal mucosa grossly intact without significant lesions, there is no thrush. Neck: The neck is supple without significant lymphadenopathy or thyromegaly. Lungs: Good bilateral air entry without significant crackles or wheezing. There is no significant bronchial sounds. There is no egophony or dullness. Heart: Regular rate and rhythm with an audible S1-S2, no S3 no S4. There is no significant murmur click or rub, PMI was nondisplaced. Abdomen: Positive bowel sounds soft without palpable masses or organomegaly. There was no guarding or rebound. His only minimal right flank tenderness with no bruising being noted to the area. No significant suprapubic tenderness is noted Extremities: The upper extremities have excellent pulses they are symmetric, no significant petechiae or telangiectasia. No splinter hemorrhages were noted. The lower extremities are free from significant edema. The peripheral pulses were 2+ and symmetric. Neuro: Awake alert oriented to person place and time. There are no acute new gross focal sensory motor deficits. - Labs CBC & Chem 7: 07/10/16 07:39 07/11/16 09:21 Labs: Abnormal Lab Results - Last 24 Hours (Table) 07/11/16 07/11/16 07/11/16 Range/Units 06:54 16:58 20:44 POC Glucose (mg/dL) 102 H 105 H 125 H (75-99) mg/dL Laboratory Results WBC 7.2 k/uL (3.8-10.6) 07/10/16 07:39 RBC 3.54 m/uL (4.30-5.90) L 07/10/16 07:39 Hgb 11.2 gm/dL (13.0-17.5) L 07/10/16 07:39 Hct 32.2 % (39.0-53.0) L 07/10/16 07:39 MCV 90.9 fL (80.0-100.0) 07/10/16 07:39 MCH 31.7 pg (25.0-35.0) 07/10/16 07:39 MCHC 34.9 g/dL (31.0-37.0) 07/10/16 07:39 RDW 13.3 % (11.5-15.5) 07/10/16 07:39 Plt Count 95 k/uL (150-450) L 07/10/16 07:39 Neutrophils % 88 % 07/10/16 07:39 Lymphocytes % 5 % 07/10/16 07:39 Monocytes % 5 % 07/10/16 07:39 Eosinophils % 0 % 07/10/16 07:39 Basophils % 0 % 07/10/16 07:39 Neutrophils # 6.4 k/uL (1.3-7.7) 07/10/16 07:39 Lymphocytes # 0.4 k/uL (1.0-4.8) L 07/10/16 07:39 Monocytes # 0.3 k/uL (0-1.0) 07/10/16 07:39 Eosinophils # 0.0 k/uL (0-0.7) 07/10/16 07:39 Basophils # 0.0 k/uL (0-0.2) 07/10/16 07:39 PT 11.7 sec (9.0-12.0) 07/09/16 14:48 INR 1.2 (<1.1) 07/09/16 14:48 APTT 23.3 sec (22.0-30.0) 07/09/16 14:48 Sodium 140 mmol/L (137-145) 07/11/16 09:21 Potassium 4.5 mmol/L (3.5-5.1) 07/11/16 09:21 Chloride 106 mmol/L (98-107) 07/11/16 09:21 Carbon Dioxide 22 mmol/L (22-30) 07/11/16 09:21 Anion Gap 12 mmol/L 07/11/16 09:21 BUN 12 mg/dL (9-20) 07/11/16 09:21 Creatinine 0.83 mg/dL (0.66-1.25) 07/11/16 09:21 Est GFR (MDRD) Af Amer >60 (>60 ml/min/1.73 sqM) 07/11/16 09:21 Est GFR (MDRD) Non-Af >60 (>60 ml/min/1.73 sqM) 07/11/16 09:21 Glucose 96 mg/dL (74-99) 07/11/16 09:21 POC Glucose (mg/dL) 125 mg/dL (75-99) H 07/11/16 20:44 POC Glu [employer] Mary Jo Rodriguez 07/11/16 20:[address] Glu mg/dL 105 mg/dL 07/10/16 07:39 Hemoglobin A1c 5.3 % (4.2-6.1) 07/10/16 07:39 Plasma Lactic Acid Cory 1.9 mmol/L (0.7-2.0) 07/09/16 14:48 Calcium 9.0 mg/dL (8.4-10.2) 07/11/16 09:21 Total Bilirubin 1.5 mg/dL (0.2-1.3) H 07/09/16 14:48 AST 14 U/L (17-59) L 07/09/16 14:48 ALT 35 U/L (21-72) 07/09/16 14:48 Alkaline Phosphatase 74 U/L (38-126) 07/09/16 14:48 Total Protein 6.3 g/dL (6.3-8.2) 07/09/16 14:48 Albumin 3.6 g/dL (3.5-5.0) 07/09/16 14:48 Urine Color Yellow 07/09/16 15:15 Urine Appearance Clear (Clear) 07/09/16 15:15 Urine pH 6.0 (5.0-8.0) 07/09/16 15:15 Ur Specific [place] 1.022 (1.001-1.035) 07/09/16 15:15 Urine Protein 2+ (Negative) H 07/09/16 15:15 Urine Glucose (UA) Trace (Negative) H 07/09/16 15:15 Urine Ketones 1+ (Negative) H 07/09/16 15:15 Urine Blood Moderate (Negative) H 07/09/16 15:15 Urine Nitrate Negative (Negative) 07/09/16 15:15 Urine Bilirubin Negative (Negative) 07/09/16 15:15 Urine Urobilinogen 3.0 mg/dL (<2.0) 07/09/16 15:15 Ur Leukocyte Esterase Small (Negative) H 07/09/16 15:15 Urine RBC >182 /hpf (0-5) H 07/09/16 15:15 Urine WBC 56 /hpf (0-5) H 07/09/16 15:15 Random Gentamicin 2.0 ug/mL 07/10/16 01:31 urine culture pending Assessment and Plan (1) Sepsis Narrative/Plan: 45-year-old male presents to the emergency center with ongoing fever chills and rigor. He has a known history of recent intervention into the right collecting system because of obstruction. Ureteral stent was placed. The patient developed fever and was placed on trimethoprim sulfamethoxazole but apparently did not start that medication. He now presents again with ongoing symptoms and is admitted for treatment of his sepsis related to his urinary system. Outside data is being attempted to be acquired as far as potential pathogens. Is being treated with ampicillin and gentamicin. Bactrim also being utilized. Cultures from the surgical center were not available. Awaiting office cultures. While pending utilize ertapenem for treatment of ESBL and other resistant pathogens. Ongoing tight glucose control be helpful It is tender no evidence of any renal failure Responding well to antiemetics as far as nausea and emesis. Cultures will direct if outpatient intravenous antibiotic therapy is needed. Status: Acute (2) Urinary tract infection Status: Acute (3) Diabetes mellitus type 2, uncontrolled, with complications Status: Acute
[2016-07-12] MEDS: LACTATED RINGERS 1,000 ML IV SCH ×5 (03:45→18:22)
[2016-07-12] MEDS: ACETAMINOPHEN TAB 325 MG TAB PO PRN (04:32)
[2016-07-12 07:19] LABS: Glucose,Whole Blood 99 mg/dL (75-99)
[2016-07-12] MEDS: INSULIN LISPRO (humaLOG) 300 UNIT/3 ML VIAL SQ SCH ×4 (07:23→21:35)
[2016-07-12] MEDS: BECLOMETHASONE DIP 80 MCG/PUFF INHALER INHALATION SCH ×2 (07:43→20:02)
[2016-07-12 08:17] LABS: Anion Gap 13 mmol/L; Blood Urea Nitrogen 13 mg/dL (9-20); Calcium 8.7 mg/dL (8.4-10.2); Carbon Dioxide 23 mmol/L (22-30); Chloride 104 mmol/L (98-107); Glucose 98 mg/dL (74-99); Non-African American GFR(MDRD) >60 (>60 ml/min/1.73 sqM); Potassium 3.8 mmol/L (3.5-5.1); Sodium 140 mmol/L (137-145)
[2016-07-12] MEDS: BUTALB/APAP/CAFF 50-325-40MG TAB PO PRN ×2 (08:19→21:20)
[2016-07-12] MEDS: oxyCODONE-APAP 5-325MG 1 EACH TAB PO PRN ×2 (08:19→21:20)
[2016-07-12] MEDS: BACLOFEN 10 MG TAB PO SCH ×3 (08:20→21:12)
[2016-07-12] MEDS: DIVALPROEX ER 500 MG TAB.ER.24H PO SCH ×3 (08:20→21:12)
[2016-07-12] MEDS: FAMOTIDINE 20 MG TAB PO SCH ×2 (08:20→21:12)
[2016-07-12] MEDS: TAMSULOSIN 0.4 MG CAP.ER.24H PO SCH (08:20)
[2016-07-12] MEDS: SULFAMETHOX-TMP 800-160MG 1 EACH TAB PO SCH ×2 (08:20→21:12)
[2016-07-12] MEDS: METOPROLOL SUCCINATE (ER) 25 MG TAB.ER.24H PO SCH (08:21)
[2016-07-12] MEDS: ASPIRIN 81 MG CHEW PO SCH (08:44)
[2016-07-12 12:31] LABS: Glucose,Whole Blood 81 mg/dL (75-99)
[2016-07-12 17:15] LABS: Glucose,Whole Blood 82 mg/dL (75-99)
--- NOTE | 2016-07-12 20:20 | P.PN ---
Subjective Principal diagnosis: fever 45-year-old male presented to the emergency center for a second time with fever chills and rigors. Even in the ear a few days prior with similar symptoms. There was concerns for urinary tract infection given his history of recent intervention. He was placed on trimethoprim sulfamethoxazole and discharged from the . He'll continue to have ongoing fevers and chills. He also had nausea and emesis increasing amounts of discomfort. Consequently he presented back to the emergency center. There with evidence of sepsis he is admitted to hospital in the infectious diseases consultation was requested. This related that on Sunday before admission was having difficulties with the ureteral stone and underwent a right renal system stent for the obstruction. Has been seen by urology with no needs for any further surgical intervention at this time. Is feeling somewhat better today. was able to eat some food today. Nausea and emesis improved. Is only having some mild right-sided flank pain. Has had fever overnight but improved this morning Objective - Vital Signs Vital signs: Vital Signs Temp 100.8 F H 07/12/16 15:00 Pulse 80 07/12/16 18:09 Resp 16 07/12/16 18:09 BP 116/64 07/12/16 15:00 Pulse Ox 95 07/12/16 15:00 Intake & Output 07/12/16 07/12/16 07/13/16 06:59 18:59 06:59 Intake Total 1375 Balance 1375 Intake: IV 1375 Lactated Ringers 1,000 ml 1375 @ 75 mls/hr IV .[id number] [facility] Rx#:[id number] Other: Voiding Method Toilet Toilet # Voids 2 2 - Exam 45-year-old male who appears older than his stated age HEENT: Anicteric conjunctiva are pink and moist nasal mucosa grossly intact without significant lesions, there is no thrush. Neck: The neck is supple without significant lymphadenopathy or thyromegaly. Lungs: Good bilateral air entry without significant crackles or wheezing. There is no significant bronchial sounds. There is no egophony or dullness. Heart: Regular rate and rhythm with an audible S1-S2, no S3 no S4. There is no significant murmur click or rub, PMI was nondisplaced. Abdomen: Positive bowel sounds soft without palpable masses or organomegaly. There was no guarding or rebound. His only minimal right flank tenderness with no bruising being noted to the area. No significant suprapubic tenderness is noted Extremities: The upper extremities have excellent pulses they are symmetric, no significant petechiae or telangiectasia. No splinter hemorrhages were noted. The lower extremities are free from significant edema. The peripheral pulses were 2+ and symmetric. Neuro: Awake alert oriented to person place and time. There are no acute new gross focal sensory motor deficits. - Labs CBC & Chem 7: 07/10/16 07:39 07/12/16 07:45 Labs: Abnormal Lab Results - Last 24 Hours (Table) 07/11/16 Range/Units 20:44 POC Glucose (mg/dL) 125 H (75-99) mg/dL Laboratory Results WBC 7.2 k/uL (3.8-10.6) 07/10/16 07:39 RBC 3.54 m/uL (4.30-5.90) L 07/10/16 07:39 Hgb 11.2 gm/dL (13.0-17.5) L 07/10/16 07:39 Hct 32.2 % (39.0-53.0) L 07/10/16 07:39 MCV 90.9 fL (80.0-100.0) 07/10/16 07:39 MCH 31.7 pg (25.0-35.0) 07/10/16 07:39 MCHC 34.9 g/dL (31.0-37.0) 07/10/16 07:39 RDW 13.3 % (11.5-15.5) 07/10/16 07:39 Plt Count 95 k/uL (150-450) L 07/10/16 07:39 Neutrophils % 88 % 07/10/16 07:39 Lymphocytes % 5 % 07/10/16 07:39 Monocytes % 5 % 07/10/16 07:39 Eosinophils % 0 % 07/10/16 07:39 Basophils % 0 % 07/10/16 07:39 Neutrophils # 6.4 k/uL (1.3-7.7) 07/10/16 07:39 Lymphocytes # 0.4 k/uL (1.0-4.8) L 07/10/16 07:39 Monocytes # 0.3 k/uL (0-1.0) 07/10/16 07:39 Eosinophils # 0.0 k/uL (0-0.7) 07/10/16 07:39 Basophils # 0.0 k/uL (0-0.2) 07/10/16 07:39 PT 11.7 sec (9.0-12.0) 07/09/16 14:48 INR 1.2 (<1.1) 07/09/16 14:48 APTT 23.3 sec (22.0-30.0) 07/09/16 14:48 Sodium 140 mmol/L (137-145) 07/12/16 07:45 Potassium 3.8 mmol/L (3.5-5.1) 07/12/16 07:45 Chloride 104 mmol/L (98-107) 07/12/16 07:45 Carbon Dioxide 23 mmol/L (22-30) 07/12/16 07:45 Anion Gap 13 mmol/L 07/12/16 07:45 BUN 13 mg/dL (9-20) 07/12/16 07:45 Creatinine 0.90 mg/dL (0.66-1.25) 07/12/16 07:45 Est GFR (MDRD) Af Amer >60 (>60 ml/min/1.73 sqM) 07/12/16 07:45 Est GFR (MDRD) Non-Af >60 (>60 ml/min/1.73 sqM) 07/12/16 07:45 Glucose 98 mg/dL (74-99) 07/12/16 07:45 POC Glucose (mg/dL) 82 mg/dL (75-99) 07/12/16 17:14 POC Glu [employer] ID Aminta Pires 07/12/16 17:[address] Glu mg/dL 105 mg/dL 07/10/16 07:39 Hemoglobin A1c 5.3 % (4.2-6.1) 07/10/16 07:39 Plasma Lactic Acid Cory 1.9 mmol/L (0.7-2.0) 07/09/16 14:48 Calcium 8.7 mg/dL (8.4-10.2) 07/12/16 07:45 Total Bilirubin 1.5 mg/dL (0.2-1.3) H 07/09/16 14:48 AST 14 U/L (17-59) L 07/09/16 14:48 ALT 35 U/L (21-72) 07/09/16 14:48 Alkaline Phosphatase 74 U/L (38-126) 07/09/16 14:48 Total Protein 6.3 g/dL (6.3-8.2) 07/09/16 14:48 Albumin 3.6 g/dL (3.5-5.0) 07/09/16 14:48 Urine Color Yellow 07/09/16 15:15 Urine Appearance Clear (Clear) 07/09/16 15:15 Urine pH 6.0 (5.0-8.0) 07/09/16 15:15 Ur Specific [place] 1.022 (1.001-1.035) 07/09/16 15:15 Urine Protein 2+ (Negative) H 07/09/16 15:15 Urine Glucose (UA) Trace (Negative) H 07/09/16 15:15 Urine Ketones 1+ (Negative) H 07/09/16 15:15 Urine Blood Moderate (Negative) H 07/09/16 15:15 Urine Nitrate Negative (Negative) 07/09/16 15:15 Urine Bilirubin Negative (Negative) 07/09/16 15:15 Urine Urobilinogen 3.0 mg/dL (<2.0) 07/09/16 15:15 Ur Leukocyte Esterase Small (Negative) H 07/09/16 15:15 Urine RBC >182 /hpf (0-5) H 07/09/16 15:15 Urine WBC 56 /hpf (0-5) H 07/09/16 15:15 Random Gentamicin 2.0 ug/mL 07/10/16 01:31 Microbiology 07/09/16 14:48 Blood Blood Culture - Preliminary No Growth after 72 hours 07/09/16 15:17 Urine,Voided Urine Culture - Final Staphylococcus epidermidis Assessment and Plan (1) Sepsis Narrative/Plan: 45-year-old male presents to the emergency center with ongoing fever chills and rigor. He has a known history of recent intervention into the right collecting system because of obstruction. Ureteral stent was placed. The patient developed fever and was placed on trimethoprim sulfamethoxazole but apparently did not start that medication. He now presents again with ongoing symptoms and is admitted for treatment of his sepsis related to his urinary system. Outside data is being attempted to be acquired as far as potential pathogens. Is being treated with ampicillin and gentamicin. Bactrim also being utilized. Cultures from the surgical center were not available. Awaiting office cultures. While pending utilize ertapenem for treatment of ESBL and other resistant pathogens. Ongoing tight glucose control be helpful no evidence of any renal failure Responding well to antiemetics as far as nausea and emesis. Cultures will direct if outpatient intravenous antibiotic therapy is needed. There was evidence of the Staphylococcus epidermidis which would not l likely be a pathogen. With his improvement there is a possibility of discharge to home on a completion course of trimethoprim sulfamethoxazole. Status: Acute (2) Urinary tract infection Status: Acute (3) Diabetes mellitus type 2, uncontrolled, with complications Status: Acute
[2016-07-12 20:51] LABS: Glucose,Whole Blood 137 mg/dL (75-99)
[2016-07-12] MEDS: traZODone HCL 50 MG TAB PO SCH (21:11)
[2016-07-12] MEDS: ATORVASTATIN 40 MG TAB PO SCH (21:11)
[2016-07-12] MEDS: ERTAPENEM 1 GM in SODIUM CHLORIDE 0.9% 50 ML IVPB SCH (21:11)
[2016-07-12] MEDS: VENLAFAXINE HCL ER 37.5 MG CAP PO SCH (21:12)
--- NOTE | 2016-07-12 23:08 | P.PN ---
Progress Note - Text Patient is feeling better. His T-MAX is 100.3 the past 24 hours. Nausea is improved, though he reports mid-abdominal pain. Right-sided discomfort is common in patients with stents. Urine culture shows 50-100,000 S. epidermis. UA obtained prior to recent ureteroscopy showed no evidence of infection. I am hopeful that patient's condition will continue to improve on antibiotics.
[2016-07-13] MEDS: LACTATED RINGERS 1,000 ML IV SCH (02:52)
[2016-07-13 07:05] LABS: Glucose,Whole Blood 89 mg/dL (75-99)
[2016-07-13 07:34] VITALS: BP 122/71; PULSE 81; RESP 18; TEMP 99
[2016-07-13] MEDS: SULFAMETHOX-TMP 800-160MG 1 EACH TAB PO SCH (08:07)
[2016-07-13] MEDS: METOPROLOL SUCCINATE (ER) 25 MG TAB.ER.24H PO SCH (08:07)
[2016-07-13] MEDS: FAMOTIDINE 20 MG TAB PO SCH (08:07)
[2016-07-13] MEDS: BACLOFEN 10 MG TAB PO SCH (08:07)
[2016-07-13] MEDS: DIVALPROEX ER 500 MG TAB.ER.24H PO SCH (08:07)
[2016-07-13] MEDS: ASPIRIN 81 MG CHEW PO SCH (08:08)
[2016-07-13] MEDS: INSULIN LISPRO (humaLOG) 300 UNIT/3 ML VIAL SQ SCH (08:08)
[2016-07-13] MEDS: TAMSULOSIN 0.4 MG CAP.ER.24H PO SCH (08:08)
[2016-07-13] MEDS: oxyCODONE-APAP 5-325MG 1 EACH TAB PO PRN (08:17)
[2016-07-13] MEDS: BECLOMETHASONE DIP 80 MCG/PUFF INHALER INHALATION SCH (08:25)
[2016-07-13 09:01] LABS: Anion Gap 15 mmol/L; Blood Urea Nitrogen 14 mg/dL (9-20); Calcium 8.9 mg/dL (8.4-10.2); Carbon Dioxide 22 mmol/L (22-30); Chloride 104 mmol/L (98-107); Glucose 91 mg/dL (74-99); Non-African American GFR(MDRD) >60 (>60 ml/min/1.73 sqM); Potassium 4.2 mmol/L (3.5-5.1); Sodium 141 mmol/L (137-145)
--- NOTE | 2016-07-13 09:13 | P.PN ---
Progress Note - Text Mr. Burnham feels much better today. He has been afebrile since yesterday afternoon. He states that his nausea has resolved, and his diarrhea is improved. He denies abdominal pain. He states that his only pain is in his neck, due to his cervical disc disease. The urine culture has shown staph epidermis, which is an unlikely urinary pathogen. Furthermore, given that the patient's primary symptomatology has consisted of nausea, vomiting, fever, and diarrhea, I do not believe that his illness is urologic in nature. It would be my recommendation that he be discharged home on Bactrim, but ultimately I would defer this decision to Dr. Valenzuela. I intend to remove Mr. Burnham's ureteral stent in the office in one week.
--- NOTE | 2016-07-13 09:54 | P.DS ---
Providers Date of admission: 07/09/16 15:59 Expected date of discharge: 07/13/16 Attending physician: Heladio Mcgrath Consults: 07/10/16 13:08 Consult Physician Routine Consulting Provider: Deuce Valenzuela Consult Reason/Comments: uti, sepsis Do you want consulting provider notified?: Yes Primary care physician: Herb Marquis - Discharge Diagnosis(es) (1) Sepsis Current Visit: Yes Status: Acute Priority: High Hospital Course: A computed tomography scan in May showed right hydronephrosis due to a 5 mm right distal ureteral calculus. He underwent right ureteroscopy several days prior to admission, revealing no calculi. A ureteral stent was left in place. He was admitted with fever, nausea, vomiting, and diarrhea. He was presumed to have pyelonephritis. He was treated with IV hydration, IV antibiotics, and anti -emetics. A urine culture showed 50-100,000 staph epidermis, felt to be unlikely to be a urinary pathogen. A blood culture was negative. His condition gradually improved. At the time of discharge, he was afebrile. He denied abdominal pain, nausea, and vomiting. The diarrhea was improved. Patient Condition at Discharge: Good Plan - Discharge Summary New Discharge Prescriptions: Sulfamethoxazole/Trimethoprim [Bactrim DS 800-160 mg] 1 each PO BID #14 tablet Discharge Medication List Divalproex ER [Depakote ER] 500 mg PO TID 10/09/13 [History] traZODone HCL [traZODone] 75 mg PO HS 01/18/14 [History] Albuterol Sulfate [Ventolin HFA] 2 puff INHALATION RT-Q6H PRN 06/10/14 [History] metFORMIN HCL [Glucophage] 500 mg PO DAILY 06/10/14 [History] Atorvastatin [Lipitor] 40 mg PO HS 01/05/15 [History] Metoprolol Succinate [Toprol XL] 25 mg PO DAILY 01/05/15 [History] Aspirin EC [Ecotrin Low Dose] 81 mg PO DAILY 06/01/16 [History] Baclofen 10 mg PO TID 06/01/16 [History] Beclomethasone Dipropionate [Qvar 80 mcg] 2 puff INHALATION RT-BID 06/01/16 [ History] Butalb/Acetaminophen/Caffeine [Fioricet 50-325-40] 1 tab PO Q8H PRN 06/01/16 [ History] Montelukast Sodium [Singulair] 10 mg PO DAILY PRN 06/01/16 [History] Tamsulosin [Flomax] 0.4 mg PO DAILY #5 cap 06/01/16 [Rx] Venlafaxine HCl ER [Effexor Xr] 37.5 mg PO HS 06/01/16 [History] oxyCODONE-APAP 5-325MG [Percocet 5-325 mg] 1 tab PO BID PRN 06/01/16 [History] Acetaminophen Tab [Tylenol Tab] 650 mg PO Q6H PRN 07/09/16 [History] Sulfamethox-Tmp 800-160Mg [Bactrim DS 800-160 mg] 1 tab PO Q12HR 7 Days [Rx] Sulfamethoxazole/Trimethoprim [Bactrim DS 800-160 mg] 1 each PO BID #14 tablet 07/13/16 [Rx] Follow up Appointment(s)/Referral(s): Herb Marquis MD [Primary Care Provider] - 1 Week Jun Stern MD [STAFF PHYSICIAN] - 1 Week Patient Instructions/Handouts: How to Stop Smoking (DC), Urinary Tract Infection in Men (DC) Activity/Diet/Wound Care/Special Instructions: Cardiac, diabetic diet. Diabetic folder given. Drink plenty of fluids. No smoking, cessation information provided. Discharge Disposition: HOME SELF-CARE
--- NOTE | 2016-07-13 22:02 | P.PN ---
Subjective Principal diagnosis: fever 45-year-old male presented to the emergency center for a second time with fever chills and rigors. Even in the ear a few days prior with similar symptoms. There was concerns for urinary tract infection given his history of recent intervention. He was placed on trimethoprim sulfamethoxazole and discharged from the . He'll continue to have ongoing fevers and chills. He also had nausea and emesis increasing amounts of discomfort. Consequently he presented back to the emergency center. There with evidence of sepsis he is admitted to hospital in the infectious diseases consultation was requested. This related that on Sunday before admission was having difficulties with the ureteral stone and underwent a right renal system stent for the obstruction. Has been seen by urology with no needs for any further surgical intervention at this time. Is feeling somewhat better today. was able to eat some food today. Nausea and emesis improved. Is only having some mild right-sided flank pain. Improved without fever Objective - Vital Signs Vital signs: Vital Signs Temp 99.0 F 07/13/16 07:00 Pulse 81 07/13/16 07:00 Resp 18 07/13/16 08:19 BP 122/71 07/13/16 07:00 Pulse Ox 97 07/13/16 07:00 Intake & Output 07/13/16 07/13/16 07/14/16 06:59 18:59 06:59 Intake Total 480 Balance 480 Intake: Oral 480 Other: Voiding Method Toilet Toilet # Voids 3 - Exam 45-year-old male who appears older than his stated age HEENT: Anicteric conjunctiva are pink and moist nasal mucosa grossly intact without significant lesions, there is no thrush. Neck: The neck is supple without significant lymphadenopathy or thyromegaly. Lungs: Good bilateral air entry without significant crackles or wheezing. There is no significant bronchial sounds. There is no egophony or dullness. Heart: Regular rate and rhythm with an audible S1-S2, no S3 no S4. There is no significant murmur click or rub, PMI was nondisplaced. Abdomen: Positive bowel sounds soft without palpable masses or organomegaly. There was no guarding or rebound. His only minimal right flank tenderness with no bruising being noted to the area. No significant suprapubic tenderness is noted Extremities: The upper extremities have excellent pulses they are symmetric, no significant petechiae or telangiectasia. No splinter hemorrhages were noted. The lower extremities are free from significant edema. The peripheral pulses were 2+ and symmetric. Neuro: Awake alert oriented to person place and time. There are no acute new gross focal sensory motor deficits. - EENT Ears: right: normal - Labs CBC & Chem 7: 07/10/16 07:39 07/13/16 07:42 Labs: Laboratory Results WBC 7.2 k/uL (3.8-10.6) 07/10/16 07:39 RBC 3.54 m/uL (4.30-5.90) L 07/10/16 07:39 Hgb 11.2 gm/dL (13.0-17.5) L 07/10/16 07:39 Hct 32.2 % (39.0-53.0) L 07/10/16 07:39 MCV 90.9 fL (80.0-100.0) 07/10/16 07:39 MCH 31.7 pg (25.0-35.0) 07/10/16 07:39 MCHC 34.9 g/dL (31.0-37.0) 07/10/16 07:39 RDW 13.3 % (11.5-15.5) 07/10/16 07:39 Plt Count 95 k/uL (150-450) L 07/10/16 07:39 Neutrophils % 88 % 07/10/16 07:39 Lymphocytes % 5 % 07/10/16 07:39 Monocytes % 5 % 07/10/16 07:39 Eosinophils % 0 % 07/10/16 07:39 Basophils % 0 % 07/10/16 07:39 Neutrophils # 6.4 k/uL (1.3-7.7) 07/10/16 07:39 Lymphocytes # 0.4 k/uL (1.0-4.8) L 07/10/16 07:39 Monocytes # 0.3 k/uL (0-1.0) 07/10/16 07:39 Eosinophils # 0.0 k/uL (0-0.7) 07/10/16 07:39 Basophils # 0.0 k/uL (0-0.2) 07/10/16 07:39 PT 11.7 sec (9.0-12.0) 07/09/16 14:48 INR 1.2 (<1.1) 07/09/16 14:48 APTT 23.3 sec (22.0-30.0) 07/09/16 14:48 Sodium 141 mmol/L (137-145) 07/13/16 07:42 Potassium 4.2 mmol/L (3.5-5.1) 07/13/16 07:42 Chloride 104 mmol/L (98-107) 07/13/16 07:42 Carbon Dioxide 22 mmol/L (22-30) 07/13/16 07:42 Anion Gap 15 mmol/L 07/13/16 07:42 BUN 14 mg/dL (9-20) 07/13/16 07:42 Creatinine 0.91 mg/dL (0.66-1.25) 07/13/16 07:42 Est GFR (MDRD) Af Amer >60 (>60 ml/min/1.73 sqM) 07/13/16 07:42 Est GFR (MDRD) Non-Af >60 (>60 ml/min/1.73 sqM) 07/13/16 07:42 Glucose 91 mg/dL (74-99) 07/13/16 07:42 POC Glucose (mg/dL) 89 mg/dL (75-99) 07/13/16 06:49 POC Glu Rn Field Case Manager ID 07/13/16 06:[address] Glu mg/dL 105 mg/dL 07/10/16 07:39 Hemoglobin A1c 5.3 % (4.2-6.1) 07/10/16 07:39 Plasma Lactic Acid Cory 1.9 mmol/L (0.7-2.0) 07/09/16 14:48 Calcium 8.9 mg/dL (8.4-10.2) 07/13/16 07:42 Total Bilirubin 1.5 mg/dL (0.2-1.3) H 07/09/16 14:48 AST 14 U/L (17-59) L 07/09/16 14:48 ALT 35 U/L (21-72) 07/09/16 14:48 Alkaline Phosphatase 74 U/L (38-126) 07/09/16 14:48 Total Protein 6.3 g/dL (6.3-8.2) 07/09/16 14:48 Albumin 3.6 g/dL (3.5-5.0) 07/09/16 14:48 Urine Color Yellow 07/09/16 15:15 Urine Appearance Clear (Clear) 07/09/16 15:15 Urine pH 6.0 (5.0-8.0) 07/09/16 15:15 Ur Specific [place] 1.022 (1.001-1.035) 07/09/16 15:15 Urine Protein 2+ (Negative) H 07/09/16 15:15 Urine Glucose (UA) Trace (Negative) H 07/09/16 15:15 Urine Ketones 1+ (Negative) H 07/09/16 15:15 Urine Blood Moderate (Negative) H 07/09/16 15:15 Urine Nitrate Negative (Negative) 07/09/16 15:15 Urine Bilirubin Negative (Negative) 07/09/16 15:15 Urine Urobilinogen 3.0 mg/dL (<2.0) 07/09/16 15:15 Ur Leukocyte Esterase Small (Negative) H 07/09/16 15:15 Urine RBC >182 /hpf (0-5) H 07/09/16 15:15 Urine WBC 56 /hpf (0-5) H 07/09/16 15:15 Random Gentamicin 2.0 ug/mL 07/10/16 01:31 Microbiology 07/09/16 14:48 Blood Blood Culture - Preliminary No Growth after 96 hours 07/09/16 15:17 Urine,Voided Urine Culture - Final Staphylococcus epidermidis Assessment and Plan (1) Sepsis Narrative/Plan: 45-year-old male presents to the emergency center with ongoing fever chills and rigor. He has a known history of recent intervention into the right collecting system because of obstruction. Ureteral stent was placed. The patient developed fever and was placed on trimethoprim sulfamethoxazole but apparently did not start that medication. He now presents again with ongoing symptoms and is admitted for treatment of his sepsis related to his urinary system. Outside data is being attempted to be acquired as far as potential pathogens. Is being treated with ampicillin and gentamicin. Bactrim also being utilized. Cultures from the surgical center were not available. Awaiting office cultures. While pending utilize ertapenem for treatment of ESBL and other resistant pathogens. Ongoing tight glucose control be helpful no evidence of any renal failure Responding well to antiemetics as far as nausea and emesis. Cultures will direct if outpatient intravenous antibiotic therapy is needed. There was evidence of the Staphylococcus epidermidis which would not l likely be a pathogen. With his improvement he'll be discharged home and a completion course of trimethoprim sulfamethoxazole. Follow up with urology. Follow up with ID if there is further needs. Status: Acute (2) Urinary tract infection Status: Acute (3) Diabetes mellitus type 2, uncontrolled, with complications Status: Acute
== END 2016-07-13 10:49 | disposition home or self-care (01) | DRG 872 ==
LOC: EC 14:46 → 4MS4W 15:59
PROVIDERS: ADMIT Urology; ATTEND Urology
DX: A41.9 Sepsis, unspecified organism (principal); E11.65 Type 2 diabetes mellitus with hyperglycemia; N12 Tubulo-interstitial nephritis, not specified as acute or chronic; I10 Essential (primary) hypertension; K21.9 Gastro-esophageal reflux disease without esophagitis; E78.5 Hyperlipidemia, unspecified; Z95.5 Presence of coronary angioplasty implant and graft; F17.200 Nicotine dependence, unspecified, uncomplicated; F32.9 Major depressive disorder, single episode, unspecified; I25.10 Atherosclerotic heart disease of native coronary artery without angina pectoris; I25.2 Old myocardial infarction; Z87.442 Personal history of urinary calculi; Z96.651 Presence of right artificial knee joint; Z88.8 Allergy status to other drugs, medicaments and biological substances; Z91.018 Allergy to other foods; Z79.899 Other long term (current) drug therapy; Z79.84 Long term (current) use of oral hypoglycemic drugs; Z79.82 Long term (current) use of aspirin; Z79.51 Long term (current) use of inhaled steroids
CPT/HCPCS: 36415; 71020; 74000; 80048; 80053; 80170; 81001; 82533; 82550; 82553; 83036; 83605; 84484; 85025; 85610; 85730; 87040; 87077; 87086; 87186; 87502; 93005; 94640; 96361; 96365; 96375; 99284; 99291

== ENCOUNTER 2016-09-27 19:52 | Observation (INO) | payer MEDICARE, OTHER ==
--- NOTE | 2016-09-27 20:45 | ED ---
General Adult HPI - General Chief complaint: Chest Pain Stated complaint: chest pain/off balance Time Seen by Provider: 09/27/16 20:02 Source: patient, RN notes reviewed, old records reviewed Mode of arrival: ambulatory Limitations: no limitations - History of Present Illness Initial comments: This is a 45-year-old male the ER with history of chest pain. Patient coming in with chest pain today. History of chest pain and angina, high cholesterol or blood pressure. Patient has not had any recent admits chest pain. No significant sores with this time is accompanied of chest pain mild lower extremity edema. Worse with exertion. No improving factors. Patient takes no pain medication home no recent fever cough or congestion no travel history no sick contacts - Related Data Home Medications Medication Instructions Recorded Confirmed Divalproex ER [Depakote ER] 500 mg PO TID 10/09/13 09/27/16 Albuterol Sulfate [Ventolin HFA] 2 puff INHALATION RT-Q6H PRN 06/10/14 09/27/16 metFORMIN HCL [Glucophage] 500 mg PO DAILY 06/10/14 09/27/16 Atorvastatin [Lipitor] 40 mg PO HS 01/05/15 09/27/16 Metoprolol Succinate [Toprol XL] 25 mg PO DAILY 01/05/15 09/27/16 Aspirin EC [Ecotrin Low Dose] 81 mg PO DAILY 06/01/16 09/27/16 Baclofen 10 mg PO TID 06/01/16 09/27/16 Beclomethasone Dipropionate [Qvar 2 puff INHALATION RT-BID 06/01/16 09/27/16 80 mcg] Butalb/Acetaminophen/Caffeine 1 tab PO Q8H PRN 06/01/16 09/27/16 [Fioricet 50-325-40] Montelukast Sodium [Singulair] 10 mg PO DAILY PRN 06/01/16 09/27/16 Venlafaxine HCl ER [Effexor Xr] 150 mg PO HS 09/27/16 09/27/16 traZODone HCL 150 mg PO HS 09/27/16 09/27/16 Allergies Allergy/AdvReac Type Severity Reaction Status Date / Time naproxen [From Naprosyn] Allergy Unknown Rash/Hives Verified 09/27/16 20:37 carrot Allergy Dyspnea Verified 05/03/17 20:37 chocolate flavor Allergy Dyspnea Verified 09/27/16 20:37 grass pollen-perennial rye, Allergy Dyspnea Verified 09/27/16 20:37 standar Review of Systems ROS Statement: Those systems with pertinent positive or pertinent negative responses have been documented in the HPI. ROS Other: All systems not noted in ROS Statement are negative. Past Medical History Past Medical History: Chest Pain / Angina, Diabetes Mellitus, GERD/Reflux, Hyperlipidemia, Hypertension, Myocardial Infarction ([place]) Additional Past Medical History / Comment(s): back, mood disturbance. 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 No international travel since. No animal exposures. Ongoing tobacco use. No smoking alcohol or current recreational drug use Smoking Status: Current every day smoker Past Alcohol Use History: None Reported Past Drug Use History: None Reported - Past Family History Father Family Medical History: Congestive Heart Failure (CHF), Deep Vein Thrombosis ( DVT), Myocardial Infarction (SC), Pulmonary Embolus Additional Family Medical History / Comment(s): SC at age 38. "hole in colon" Mother Family Medical History: Cancer, COPD, Diabetes Mellitus, Hyperlipidemia Additional Family Medical History / Comment(s): breast and lung cancer Sister(s) Family Medical History: Diabetes Mellitus Additional Family Medical History / Comment(s): bi-polar, anxiety. hysterectomy Brother(s) History Unknown: Yes General Exam Limitations: no limitations General appearance: alert, in no apparent distress Head exam: Present: atraumatic, normocephalic, normal inspection Eye exam: Present: normal appearance, PERRL, EOMI. Absent: scleral icterus, conjunctival injection, periorbital swelling ENT exam: Present: normal exam, mucous membranes moist Neck exam: Present: normal inspection. Absent: tenderness, meningismus, lymphadenopathy Respiratory exam: Present: normal lung sounds bilaterally. Absent: respiratory distress, wheezes, rales, rhonchi, stridor Cardiovascular Exam: Present: regular rate, normal rhythm, normal heart sounds. Absent: systolic murmur, diastolic murmur, rubs, gallop, clicks GI/Abdominal exam: Present: soft, normal bowel sounds. Absent: distended, tenderness, guarding, rebound, rigid Extremities exam: Present: normal inspection, full ROM, normal capillary refill. Absent: tenderness, pedal edema, joint swelling, calf tenderness Back exam: Present: normal inspection Neurological exam: Present: alert, oriented X3, CN II-XII intact Psychiatric exam: Present: normal affect, normal mood Skin exam: Present: warm, dry, intact, normal color. Absent: rash Course Vital Signs 09/27/16 09/27/16 19:58 21:39 Temperature 99.1 F Pulse Rate 90 83 Respiratory 16 18 Rate Blood Pressure 130/71 125/56 O2 Sat by Pulse 95 97 Oximetry - Reevaluation(s) Reevaluation #1: 09/27/16 21:50 Patient remains chest pain EKG Findings - EKG Comments: EKG Findings:: EKG shows normal sinus rhythm at 76, GA 184, QRS 84, QTc 45 Medical Decision Making - Medical Decision Making 42 female here for evaluation of chest pain, history of chest pain history of heart disease history of heart attack diabetes have upper try cholesterol. Patient be admitted for cardiac observation - Lab Data Result diagrams: 09/27/16 20:50 09/27/16 20:50 Lab Results 09/27/16 09/27/16 09/27/16 Range/Units 20:50 20:50 20:50 WBC 5.3 (3.8-10.6) k/uL RBC 4.82 (4.30-5.90) m/uL Hgb 15.6 (13.0-17.5) gm/dL Hct 42.6 (39.0-53.0) % MCV 88.5 (80.0-100.0) fL MCH 32.4 (25.0-35.0) pg MCHC 36.6 (31.0-37.0) g/dL RDW 14.2 (11.5-15.5) % Plt Count 165 (150-450) k/uL Neutrophils % 59 % Lymphocytes % 32 % Monocytes % 5 % Eosinophils % 2 % Basophils % 1 % Neutrophils # 3.1 (1.3-7.7) k/uL Lymphocytes # 1.7 (1.0-4.8) k/uL Monocytes # 0.3 (0-1.0) k/uL Eosinophils # 0.1 (0-0.7) k/uL Basophils # 0.0 (0-0.2) k/uL PT (9.0-12.0) sec INR (<1.1) APTT (22.0-30.0) sec Sodium 140 (137-145) mmol/L Potassium 3.9 (3.5-5.1) mmol/L Chloride 104 (98-107) mmol/L Carbon Dioxide 28 (22-30) mmol/L Anion Gap 8 mmol/L BUN 13 (9-20) mg/dL Creatinine 0.76 (0.66-1.25) mg/dL Est GFR (MDRD) Af Amer >60 (>60 ml/min/1.73 sqM) Est GFR (MDRD) Non-Af >60 (>60 ml/min/1.73 sqM) Glucose 107 H (74-99) mg/dL Calcium 9.0 (8.4-10.2) mg/dL Magnesium 2.2 (1.6-2.3) mg/dL Total Bilirubin 0.5 (0.2-1.3) mg/dL AST 18 (17-59) U/L ALT 30 (21-72) U/L Alkaline Phosphatase 73 (38-126) U/L Total Creatine Kinase 53 L (55-170) U/L CK-MB (CK-2) 0.9 (0.0-2.4) ng/mL CK-MB (CK-2) Rel Index 1.7 Troponin I <0.012 (0.000-0.034) ng/mL Total Protein 6.5 (6.3-8.2) g/dL Albumin 3.9 (3.5-5.0) g/dL Lipase 70 (23-300) U/L 09/27/16 Range/Units 20:50 WBC (3.8-10.6) k/uL RBC (4.30-5.90) m/uL Hgb (13.0-17.5) gm/dL Hct (39.0-53.0) % MCV (80.0-100.0) fL MCH (25.0-35.0) pg MCHC (31.0-37.0) g/dL RDW (11.5-15.5) % Plt Count (150-450) k/uL Neutrophils % % Lymphocytes % % Monocytes % % Eosinophils % % Basophils % % Neutrophils # (1.3-7.7) k/uL Lymphocytes # (1.0-4.8) k/uL Monocytes # (0-1.0) k/uL Eosinophils # (0-0.7) k/uL Basophils # (0-0.2) k/uL PT 10.3 (9.0-12.0) sec INR 1.0 (<1.1) APTT 24.3 (22.0-30.0) sec Sodium (137-145) mmol/L Potassium (3.5-5.1) mmol/L Chloride (98-107) mmol/L Carbon Dioxide (22-30) mmol/L Anion Gap mmol/L BUN (9-20) mg/dL Creatinine (0.66-1.25) mg/dL Est GFR (MDRD) Af Amer (>60 ml/min/1.73 sqM) Est GFR (MDRD) Non-Af (>60 ml/min/1.73 sqM) Glucose (74-99) mg/dL Calcium (8.4-10.2) mg/dL Magnesium (1.6-2.3) mg/dL Total Bilirubin (0.2-1.3) mg/dL AST (17-59) U/L ALT (21-72) U/L Alkaline Phosphatase (38-126) U/L Total Creatine Kinase (55-170) U/L CK-MB (CK-2) (0.0-2.4) ng/mL CK-MB (CK-2) Rel Index Troponin I (0.000-0.034) ng/mL Total Protein (6.3-8.2) g/dL Albumin (3.5-5.0) g/dL Lipase (23-300) U/L - Radiology Data Radiology results: report reviewed (Chest x-ray negative for acute disease), image reviewed Critical Care Time Critical Care Time: Yes Total Critical Care Time: 31 Disposition Clinical Impression: Chest pain Disposition: ADMITTED IP TO THIS HOSP Condition: Undetermined Instructions: Chest Pain (ED) Referrals: Herb Marquis MD [Primary Care Provider] - 1-2 days
[2016-09-27 21:03] LABS: Basophils % (A) 1 %; CH 32.3; CHCM 36.6; Eosinophils # (A) 0.1 k/uL (0-0.7); Eosinophils % (A) 2 %; HCT 42.6 % (39.0-53.0); HDW 3.23; HGB 15.6 gm/dL (13.0-17.5); Luc # (Auto) 0.07; Luc % (Auto) 1; Lymphocytes # (A) 1.7 k/uL (1.0-4.8); Lymphocytes % (A) 32 %; MCH 32.4 pg (25.0-35.0); MCHC 36.6 g/dL (31.0-37.0); MCV 88.5 fL (80.0-100.0); Mean Platelet Volume 6.6; Monocytes # (A) 0.3 k/uL (0-1.0); Monocytes % (A) 5 %; Neutrophils # (A) 3.1 k/uL (1.3-7.7); Neutrophils % (A) 59 %; RBC 4.82 m/uL (4.30-5.90); RDW 14.2 % (11.5-15.5); WBC 5.3 k/uL (3.8-10.6); WBC (Perox) 5.12
[2016-09-27 21:12] LABS: ALT 30 U/L (21-72); AST 18 U/L (17-59); Alkaline Phosphatase 73 U/L (38-126); Anion Gap 8 mmol/L; Blood Urea Nitrogen 13 mg/dL (9-20); Carbon Dioxide 28 mmol/L (22-30); Chloride 104 mmol/L (98-107); Glucose 107 mg/dL (74-99); Magnesium 2.2 mg/dL (1.6-2.3); Non-African American GFR(MDRD) >60 (>60 ml/min/1.73 sqM); Potassium 3.9 mmol/L (3.5-5.1); Sodium 140 mmol/L (137-145); Total Bilirubin 0.5 mg/dL (0.2-1.3); Total Protein 6.5 g/dL (6.3-8.2)
[2016-09-27 21:15] LABS: Creatine Kinase 53 U/L (55-170)
[2016-09-27] MEDS ORDERED: MORPHINE SULFATE 4 MG/ML SYRINGE IV PRN (21:17)
[2016-09-27] MEDS ORDERED: HEPARIN SODIUM,PORCINE 5,000 UNIT/ML 1 ML VIAL IV PRN (21:17)
[2016-09-27] MEDS ORDERED: MORPHINE SULFATE 2 MG/ML SYRINGE IVP STA (21:17)
[2016-09-27] MEDS ORDERED: NITROGLYCERIN SL TABS 0.4 MG TAB SUBLINGUAL PRN (21:17)
[2016-09-27] MEDS ORDERED: HEPARIN SODIUM,PORCINE 5,000 UNIT/ML 1 ML VIAL IV ONE (21:17)
[2016-09-27] MEDS ORDERED: ASPIRIN 81 MG CHEW PO STA (21:17)
[2016-09-27 21:29] LABS: Creatine Kinase MB 0.9 ng/mL (0.0-2.4); Troponin I <0.012 ng/mL (0.000-0.034)
[2016-09-27] MEDS ORDERED: HEPARIN SODIUM,PORCINE/D5W PMX 25,000 UNIT in DEXTROSE/WATER 1 500ML.BAG IV SCH (21:30)
[2016-09-27 21:38] LABS: Partial Thromboplastin Time 24.3 sec (22.0-30.0); Prothrombin Time 10.3 sec (9.0-12.0)
--- NOTE | 2016-09-27 21:49 | XR ---
EXAMINATION TYPE: XR chest 2V DATE OF EXAM: 09/27/2016 9:25 PM COMPARISON: 07/09/2016 HISTORY: Pain TECHNIQUE: Frontal and lateral views of the chest are obtained. FINDINGS: There is no focal air space opacity, pleural effusion, or pneumothorax seen. The cardiac silhouette size is within normal limits. The osseous structures are intact. IMPRESSION: No acute cardiopulmonary process.
[2016-09-28 03:29] LABS: Mean Platelet Volume 6.9
[2016-09-28 03:47] LABS: Cholesterol 126 mg/dL (<200); HDL Cholesterol 28 mg/dL (40-60)
[2016-09-28 03:54] LABS: Creatine Kinase 115 U/L (55-170)
[2016-09-28 04:01] LABS: Triglycerides 640 mg/dL (<150)
[2016-09-28 04:07] LABS: Creatine Kinase MB 0.8 ng/mL (0.0-2.4); Troponin I <0.012 ng/mL (0.000-0.034)
[2016-09-28 04:23] VITALS: RESP 18
[2016-09-28 07:09] LABS: Glucose,Whole Blood 90 mg/dL (75-99)
[2016-09-28] MEDS ORDERED: AMINOPHYLLINE 500 MG/20 ML VIAL IV PRN (08:38)
[2016-09-28] MEDS ORDERED: REGADENOSON 0.4 MG/5 ML SYRINGE IV ONE (08:38)
--- NOTE | 2016-09-28 08:38 | P.CRDCN ---
History of Present Illness Consult date: 09/28/16 Chief complaint: chest pain History of present illness: This is a pleasant 45-year-old gentleman who sees Dr. THEODORE Menchaca as an outpatient with a known diabetes, hypertension, dyslipidemia, and significant history of smoking, presented to the emergency room complaining of chest discomfort. He was at home when he started experiencing chest discomfort as a throbbing kind of discomfort with some radiation to the left arm. It was associated with shortness of breath as well as some sweating. The discomfort lasted about half an hour only. The EKG showed sinus rhythm without any significant changes. The cardiac enzymes came in to be unremarkable. The patient continues to be pain-free during his hospitalization. Unfortunately he continues to smoke. I will proceed with a stress test and echocardiogram and follow-up with the patient. Past Medical History Past Medical History: Chest Pain / Angina, Diabetes Mellitus, GERD/Reflux, Hyperlipidemia, Hypertension, Myocardial Infarction ([place]) Additional Past Medical History / Comment(s): back, mood disturbance. 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 No international travel since. No animal exposures. Ongoing tobacco use. No smoking alcohol or current recreational drug use Smoking Status: Current every day smoker Past Alcohol Use History: None Reported Past Drug Use History: None Reported - Past Family History Father Family Medical History: Congestive Heart Failure (CHF), Deep Vein Thrombosis ( DVT), Myocardial Infarction ([place]), Pulmonary Embolus Additional Family Medical History / Comment(s): SC at age 38. "hole in colon" Mother Family Medical History: Cancer, COPD, Diabetes Mellitus, Hyperlipidemia Additional Family Medical History / Comment(s): breast and lung cancer Sister(s) Family Medical History: Diabetes Mellitus Additional Family Medical History / Comment(s): bi-polar, anxiety. hysterectomy Brother(s) History Unknown: Yes Medications and Allergies Home Medications Medication Instructions Recorded Confirmed Type Divalproex ER [Depakote ER] 500 mg PO TID 10/09/13 09/27/16 History Albuterol Sulfate [Ventolin HFA] 2 puff INHALATION RT-Q6H PRN 06/10/14 09/27/16 History metFORMIN HCL [Glucophage] 500 mg PO DAILY 06/10/14 09/27/16 History Atorvastatin [Lipitor] 40 mg PO HS 01/05/15 09/27/16 History Metoprolol Succinate [Toprol XL] 25 mg PO DAILY 01/05/15 09/27/16 History Aspirin EC [Ecotrin Low Dose] 81 mg PO DAILY 06/01/16 09/27/16 History Baclofen 10 mg PO TID 06/01/16 09/27/16 History Beclomethasone Dipropionate [Qvar 2 puff INHALATION RT-BID 06/01/16 09/27/16 History 80 mcg] Butalb/Acetaminophen/Caffeine 1 tab PO Q8H PRN 06/01/16 09/27/16 History [Fioricet 50-325-40] Montelukast Sodium [Singulair] 10 mg PO DAILY PRN 06/01/16 09/27/16 History Venlafaxine HCl ER [Effexor Xr] 150 mg PO HS 09/27/16 09/27/16 History traZODone HCL 150 mg PO HS 09/27/16 09/27/16 History Allergies Allergy/AdvReac Type Severity Reaction Status Date / Time naproxen [From Naprosyn] Allergy Unknown Rash/Hives Verified 09/27/16 20:37 carrot Allergy Dyspnea Verified 09/27/16 20:37 chocolate flavor Allergy Dyspnea Verified 09/27/16 20:37 grass pollen-perennial rye, Allergy Dyspnea Verified 09/27/16 20:37 standar Physical Exam Vitals: Vital Signs Temp Pulse Pulse Resp BP BP Pulse Ox 09/28/16 08:00 98.0 F 65 18 98/58 98 09/28/16 04:00 98.0 F 69 18 103/66 98 09/28/16 03:19 65 16 09/28/16 00:00 81 16 09/27/16 22:45 98.2 F 80 16 119/66 94 L 09/27/16 22:35 98.5 F 84 18 124/67 98 09/27/16 22:14 82 18 125/71 98 09/27/16 21:39 83 18 125/56 97 Intake and Output 09/27/16 09/28/16 09/28/16 22:59 06:59 14:59 Intake Total 129.333 Balance 129.333 Intake: Intake, IV Titration 129.333 Amount Heparin Sodium,Porcine/ 129.333 D5w Pmx 25,000 unit In Dextrose/Water 1 500ml. bag @ 10.6 UNITS/KG/HR 20 mls/hr IV .Q24H TABITHA Rx#: [id number] Other: # Voids 2 3 Weight 94.347 kg - Constitutional General appearance: no acute distress - Respiratory Respiratory: bilateral: CTA - Cardiovascular Rhythm: regular Heart sounds: normal: S1, S2 Results 09/28/16 03:06 09/27/16 20:50 Cardiac Enzymes 09/28/16 Range/Units 03:06 CK-MB (CK-2) 0.8 (0.0-2.4) ng/mL Troponin I <0.012 (0.000-0.034) ng/mL Coagulation 09/28/16 Range/Units 03:06 APTT 28.2 (22.0-30.0) sec Lipids 09/28/16 Range/Units 03:06 Triglycerides 640 H (<150) mg/dL Cholesterol 126 (<200) mg/dL HDL Cholesterol 28 L (40-60) mg/dL CBC 09/28/16 Range/Units 03:06 Plt Count 123 L (150-450) k/uL Current Medications Generic Name Dose Route Start Last Admin Trade Name Freq PRN Reason Stop Dose Admin Aspirin 325 mg 09/28/16 09:00 Aspirin PO DAILY TABITHA Heparin Sodium (Porcine) 0 unit 09/27/16 21:17 Heparin IV Q6HR PRN Low PTT Protocol Heparin Sodium/Dextrose 25,000 500 mls @ 20 mls/hr 09/27/16 21:30 09/28/16 04 :05 unit/ IV Solution IV 13.61 units/kg/hr .Q24H TABITHA 25.7 mls/hr Protocol Titration 10.6 UNITS/KG/HR Morphine Sulfate 4 mg 09/27/16 21:17 09/27/16 21:36 Morphine Sulfate (Inj) IV 4 mg Q4HR PRN Administration Chest Pain Nitroglycerin 0.4 mg 09/27/16 21:17 Nitrostat SUBLINGUAL Q5M PRN Chest Pain Intake and Output 09/27/16 09/28/16 09/28/16 22:59 06:59 14:59 Intake Total 129.333 Balance 129.333 Intake: Intake, IV Titration 129.333 Amount Heparin Sodium,Porcine/ 129.333 D5w Pmx 25,000 unit In Dextrose/Water 1 500ml. bag @ 10.6 UNITS/KG/HR 20 mls/hr IV .Q24H TABITHA Rx#: [id number] Other: # Voids 2 3 Weight 94.347 kg 09/28/16 03:06 Assessment and Plan Plan: Assessment 1 episode of chest discomfort the patient continues to be pain-free Multiple risk factors for CAD Plan Lexiscan Cardiolite Echocardiogram Follow-up with the patient
[2016-09-28] MEDS ORDERED: ASPIRIN 325 MG TAB PO SCH (09:00)
[2016-09-28 09:38] LABS: Creatine Kinase 289 U/L (55-170)
[2016-09-28 10:01] LABS: Creatine Kinase MB 1.2 ng/mL (0.0-2.4); Troponin I <0.012 ng/mL (0.000-0.034)
[2016-09-28] MEDS ORDERED: BUTALB/APAP/CAFF 50-325-40MG TAB PO PRN (10:36)
[2016-09-28] MEDS ORDERED: ALBUTEROL NEBULIZED 2.5 MG/3 ML INHALATION PRN (10:36)
[2016-09-28] MEDS ORDERED: MONTELUKAST 10 MG TAB PO PRN (10:36)
--- NOTE | 2016-09-28 10:44 | ECHOF ---
Referral Reason:cp MEASUREMENTS -------- HEIGHT: 175.3 cm WEIGHT: 94.3 kg BP: IVSd: 1.3 cm (0.6 - 1.1) LVIDd: 4.4 cm (3.9 - 5.3) LVPWd: 1.1 cm (0.6 - 1.1) IVSs: 1.7 cm LVIDs: 3.1 cm LVPWs: 1.5 cm Ao Diam: 3.4 cm (2.0 - 3.7) AV Cusp: 2.2 cm (1.5 - 2.6) LA Diam: 3.6 cm (2.7 - 3.8) MV EXCURSION: 26.030 mm (> 18.000) MV EF SLOPE: 162 mm/s (70 - 150) EPSS: 0.4 cm MV E Estiven: 0.78 m/s MV DecT: 238 ms MV A Estiven: 0.51 m/s MV E/A Ratio: 1.53 RAP: 5.00 mmHg RVSP: 11.59 mmHg FINDINGS -------- Sinus rhythm. This was a technically good study. There is borderline concentric left ventricular hypertrophy. Overall left ventricular systolic function is normal with, an EF between 55 - 60 %. The right ventricle is normal in size and function. The left atrium is normal in size. The right atrium is normal in size. The aortic valve is trileaflet, and appears structurally normal. No aortic stenosis or regurgitation. There is trace mitral regurgitation. Trace tricuspid regurgitation present. The right ventricular systolic pressure, as measured by Doppler, is 11.59mmHg. Pulmonic valve appears structurally normal. The aortic root size is normal. The pericardium is normal. CONCLUSIONS -------- 1. Sinus rhythm. 2. Trace tricuspid regurgitation present. 3. The right ventricular systolic pressure, as measured by Doppler, is 11.59mmHg. 4. Pulmonic valve appears structurally normal. 5. The aortic root size is normal. 6. The pericardium is normal. 7. This was a technically good study. 8. There is borderline concentric left ventricular hypertrophy. 9. Overall left ventricular systolic function is normal with, an EF between 55 - 60 %. 10. The right ventricle is normal in size and function. 11. The left atrium is normal in size. 12. The right atrium is normal in size. 13. The aortic valve is trileaflet, and appears structurally normal. No aortic stenosis or regurgitation. 14. There is trace mitral regurgitation. CHEMICAL RECOVERY OPERATOR: Génesis Cortes RDCS
--- NOTE | 2016-09-28 10:49 | EST ---
DATE OF SERVICE: 09/28/2016 AGE: 45Y SEX: M HT: 69" WT: 208 lbs. Lexiscan Cardiolite Stress Test *Heart Rate Blood Pressure *Rest: 65 Rest: 110/70 * *Max. Achieved: 110 Maximum BP: 130/78 85% PMHR: 150 100% PMHR: 177 *METS: - INDICATIONS: Chest pain. MEDICATIONS: Depakote, aspirin. Baseline EKG revealed normal sinus rhythm without significant ST-T changes. With Lexiscan administration, heart rate changed from 65 to 110 beats per minute came back to baseline. Blood pressure was 110/70 and changed to 130/78. EKG was unremarkable. The patient had transient shortness of breath. By EKG criteria, this is an unremarkable Lexiscan stress test. The nuclear scan results, which are more pertinent, will be reported by the radiologist.
[2016-09-28 11:44] VITALS: BP 113/75; PULSE 57; TEMP 98.5
--- NOTE | 2016-09-28 11:46 | NM ---
EXAMINATION TYPE: NM stress lexiscan cardiolite DATE OF EXAM: 09/28/2016 11:39 AM COMPARISON: NONE HISTORY: Chest pain TECHNIQUE: After the intravenous administration of 10.75 mCi Tc 99m Sestamibi - Cardiolite resting S PECT images acquired 45 minutes post injection. The patient received 0.4mg Lexiscan, 27.1 mCi Tc 99m Sestamibi - Stress images obtained [address] injection FINDINGS: Review of stress and rest SPECT images demonstrates no distinct perfusion abnormality. Gated analysi s shows normal wall motion with an estimated left ventricular ejection fraction of 51 %. IMPRESSION: No scintigraphic evidence for reversible ischemia.
[2016-09-28 12:02] LABS: Glucose,Whole Blood 95 mg/dL (75-99)
--- NOTE | 2016-09-28 13:24 | P.HPIM ---
History of Present Illness Weight 5-year-old male on presented emergency room with complaints of chest pain patient has a history of hyperlipidemia diabetes history of [place] and patient is a smoker. to be evaluated by cardiology Review of Systems Cardiovascular: Reports chest pain Respiratory: Reports dyspnea Past Medical History Past Medical History: Chest Pain / Angina, Diabetes Mellitus, GERD/Reflux, Hyperlipidemia, Hypertension, Myocardial Infarction ([place]) Additional Past Medical History / Comment(s): back, mood disturbance. 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 No international travel since. No animal exposures. Ongoing tobacco use. No smoking alcohol or current recreational drug use Smoking Status: Current every day smoker Past Alcohol Use History: None Reported Past Drug Use History: None Reported - Past Family History Father Family Medical History: Congestive Heart Failure (CHF), Deep Vein Thrombosis ( DVT), Myocardial Infarction ([place]), Pulmonary Embolus Additional Family Medical History / Comment(s): [place] at age 38. "hole in colon" Mother Family Medical History: Cancer, COPD, Diabetes Mellitus, Hyperlipidemia Additional Family Medical History / Comment(s): breast and lung cancer Sister(s) Family Medical History: Diabetes Mellitus Additional Family Medical History / Comment(s): bi-polar, anxiety. hysterectomy Brother(s) History Unknown: Yes Medications and Allergies Home Medications Medication Instructions Recorded Confirmed Type Divalproex ER [Depakote ER] 500 mg PO TID 10/09/13 09/27/16 History Albuterol Sulfate [Ventolin HFA] 2 puff INHALATION RT-Q6H PRN 06/10/14 09/27/16 History metFORMIN HCL [Glucophage] 500 mg PO DAILY 06/10/14 09/27/16 History Atorvastatin [Lipitor] 40 mg PO HS 01/05/15 09/27/16 History Metoprolol Succinate [Toprol XL] 25 mg PO DAILY 01/05/15 09/27/16 History Aspirin EC [Ecotrin Low Dose] 81 mg PO DAILY 06/01/16 09/27/16 History Baclofen 10 mg PO TID 06/01/16 09/27/16 History Beclomethasone Dipropionate [Qvar 2 puff INHALATION RT-BID 06/01/16 09/27/16 History 80 mcg] Butalb/Acetaminophen/Caffeine 1 tab PO Q8H PRN 06/01/16 09/27/16 History [Fioricet 50-325-40] Montelukast Sodium [Singulair] 10 mg PO DAILY PRN 06/01/16 09/27/16 History Venlafaxine HCl ER [Effexor XR] 150 mg PO HS 09/27/16 09/27/16 History traZODone HCL 150 mg PO HS 09/27/16 09/27/16 History Allergies Allergy/AdvReac Type Severity Reaction Status Date / Time naproxen [From Naprosyn] Allergy Unknown Rash/Hives Verified 09/27/16 20:37 carrot Allergy Dyspnea Verified 09/27/16 20:37 chocolate flavor Allergy Dyspnea Verified 09/27/16 20:37 grass pollen-perennial rye, Allergy Dyspnea Verified 09/27/16 20:37 standar Physical Exam Vitals: Vital Signs Temp Pulse Pulse Resp BP BP Pulse Ox 09/28/16 11:46 96 09/28/16 11:43 98.5 F 57 L 18 113/75 96 09/28/16 08:00 98.0 F 65 18 98/58 98 09/28/16 04:00 98.0 F 69 18 103/66 98 09/28/16 03:19 65 16 09/28/16 00:00 81 16 09/27/16 22:45 98.2 F 80 16 119/66 94 L 09/27/16 22:35 98.5 F 84 18 124/67 98 09/27/16 22:14 82 18 125/71 98 09/27/16 21:39 83 18 125/56 97 Intake and Output 09/27/16 09/28/16 09/28/16 22:59 06:59 14:59 Intake Total 129.333 Balance 129.333 Intake: Intake, IV Titration 129.333 Amount Heparin Sodium,Porcine/ 129.333 D5w Pmx 25,000 unit In Dextrose/Water 1 500ml. bag @ 10.6 UNITS/KG/HR 20 mls/hr IV .Q24H TABITHA Rx#: [id number] Other: # Voids 2 3 Weight 94.347 kg - Constitutional General appearance: obese - EENT Eyes: PERRLA Ears: bilateral: normal - Neck Neck: normal ROM - Respiratory Respiratory: bilateral: CTA - Cardiovascular Rhythm: regular - Gastrointestinal General gastrointestinal: soft - Integumentary Integumentary: normal - Neurologic Neurologic: CNII-XII intact - Musculoskeletal Musculoskeletal: gait normal - Psychiatric Psychiatric: A&O x's 3, appropriate affect, intact judgment & insight Results CBC & Chem 7: 09/28/16 03:06 09/27/16 20:50 Labs: Abnormal Lab Results - Last 24 Hours (Table) 09/28/16 09/28/16 09/28/16 Range/Units 03:06 03:06 08:54 Plt Count 123 L (150-450) k/uL Total Creatine Kinase 289 H (55-170) U/L Triglycerides 640 H (<150) mg/dL HDL Cholesterol 28 L (40-60) mg/dL Chest x-ray: report reviewed Thrombosis Risk Factor Assmnt - Choose All That Apply Each Factor Represents 1 point: Age 41-60 years, Obesity (BMI >25) Thrombosis Risk Factor Assessment Total Risk Factor Score: 2 Thrombosis Risk Factor Assessment Level: Low Risk Assessment and Plan Plan: Assessment Chest pain troponins negative History of [place] coronary disease Hyperlipidemia Diabetes type 2 GERD Nicotine addiction Plan Echo and stress test per cardiology
--- NOTE | 2016-09-28 13:25 | P.DS ---
Providers Date of admission: 09/27/16 21:17 Attending physician: Herb Marquis Consults: 45-year-old male presented to the emergency room with complaints of chest pain patient was evaluated by cardiology with negative of Lexiscan and echo. Patient pain-free at this time. Patient will follow-up with cardiology and primary care physician Assessment Chest pain history of coronary disease negative troponins negative stress test Hyperlipidemia Diabetes type 2 GERD Nicotine addiction Plan Follow-up with family physician and cardiology Primary care physician: Herb Marquis Patient Condition at Discharge: Undetermined Plan - Discharge Summary Discharge Medication List Divalproex ER [Depakote ER] 500 mg PO TID 10/09/13 [History] Albuterol Sulfate [Ventolin HFA] 2 puff INHALATION RT-Q6H PRN 06/10/14 [History] metFORMIN HCL [Glucophage] 500 mg PO DAILY 06/10/14 [History] Atorvastatin [Lipitor] 40 mg PO HS 01/05/15 [History] Metoprolol Succinate [Toprol XL] 25 mg PO DAILY 01/05/15 [History] Aspirin EC [Ecotrin Low Dose] 81 mg PO DAILY 06/01/16 [History] Baclofen 10 mg PO TID 06/01/16 [History] Beclomethasone Dipropionate [Qvar 80 mcg] 2 puff INHALATION RT-BID 06/01/16 [ History] Butalb/Acetaminophen/Caffeine [Fioricet 50-325-40] 1 tab PO Q8H PRN 06/01/16 [ History] Montelukast Sodium [Singulair] 10 mg PO DAILY PRN 06/01/16 [History] Venlafaxine HCl ER [Effexor XR] 150 mg PO HS 09/27/16 [History] traZODone HCL 150 mg PO HS 09/27/16 [History] Follow up Appointment(s)/Referral(s): Herb Marquis MD [Primary Care Provider] - 1-2 days Patient Instructions/Handouts: Chest Pain (ED)
[2016-09-28] MEDS ORDERED: DIVALPROEX ER 500 MG TAB.ER.24H PO SCH (16:00)
[2016-09-28] MEDS ORDERED: BACLOFEN 10 MG TAB PO SCH (16:00)
[2016-09-28] MEDS ORDERED: BECLOMETHASONE DIP 80 MCG/PUFF INHALER INHALATION SCH (20:00)
[2016-09-28] MEDS ORDERED: ATORVASTATIN 40 MG TAB PO SCH (21:00)
[2016-09-28] MEDS ORDERED: traZODone HCL 100 MG TAB PO SCH (21:00)
[2016-09-28] MEDS ORDERED: VENLAFAXINE HCL ER 150 MG CAP PO SCH (21:00)
[2016-09-29] MEDS ORDERED: metFORMIN 500 MG TAB PO SCH (09:00)
[2016-09-29] MEDS ORDERED: ASPIRIN 81 MG CHEW PO SCH (09:00)
[2016-09-29] MEDS ORDERED: METOPROLOL SUCCINATE (ER) 25 MG TAB.ER.24H PO SCH (09:00)
== END 2016-09-28 14:54 | disposition home or self-care (01) ==
LOC: EC 19:52 → 3OBS 21:17
PROVIDERS: ADMIT Family Medicine; ATTEND Family Medicine
DX: R07.89 Other chest pain (principal); E78.5 Hyperlipidemia, unspecified; E78.00 Pure hypercholesterolemia, unspecified; I10 Essential (primary) hypertension; E11.9 Type 2 diabetes mellitus without complications; K21.9 Gastro-esophageal reflux disease without esophagitis; F17.200 Nicotine dependence, unspecified, uncomplicated; I25.2 Old myocardial infarction; F31.9 Bipolar disorder, unspecified; F41.9 Anxiety disorder, unspecified; I25.10 Atherosclerotic heart disease of native coronary artery without angina pectoris; Z79.84 Long term (current) use of oral hypoglycemic drugs; Z79.899 Other long term (current) drug therapy; Z79.82 Long term (current) use of aspirin; Z79.51 Long term (current) use of inhaled steroids; Z88.8 Allergy status to other drugs, medicaments and biological substances; Z91.018 Allergy to other foods; Z91.048 Other nonmedicinal substance allergy status; Z95.5 Presence of coronary angioplasty implant and graft; Z82.49 Family history of ischemic heart disease and other diseases of the circulatory system; Z80.3 Family history of malignant neoplasm of breast; Z80.1 Family history of malignant neoplasm of trachea, bronchus and lung; Z82.5 Family history of asthma and other chronic lower respiratory diseases
CPT/HCPCS: 96366 ×2; 96376; 96365; 96375; 99291; 36415; 94760; 93005; 93017; 93306; 80061; 80053; 83036; 82550 ×2; 82553 ×2; 83690; 83735; 84484 ×2; 85025; 85049; 85610; 85730 ×2; 71020; 78452; G0378 ×2; A9500; J2270; J1644 ×2; J2785

== ENCOUNTER 2016-10-28 17:52 | Emergency (ER) | payer MEDICARE, OTHER ==
[2016-10-28] MEDS ORDERED: KETOROLAC 30 MG/ML 1 ML VIAL IVP STA (18:53)
[2016-10-28] MEDS ORDERED: SODIUM CHLORIDE 0.9% 1,000 ML IV STA (18:53)
--- NOTE | 2016-10-28 18:59 | ED ---
General Adult HPI - General Chief complaint: Abdominal Pain Stated complaint: Lower abdominal & groin pain Time Seen by Provider: 10/28/16 18:46 Source: patient, RN notes reviewed Mode of arrival: ambulatory Limitations: no limitations - History of Present Illness Initial comments: 45-year-old male presents emergency Department chief complaint of bilateral groin pain. Patient states this pain started about 1-2 hours ago. Patient does admit to history of an inguinal hernia on the left that he had repaired. Patient states he felt something like that. Patient states the pain was worse when he was doing the laundry. There has been no fever chills cough cold runny nose. There is been no nausea or vomiting. There was concerned due to the patient's symptoms that he should be evaluated. Patient states he has had any changes in bladder habits he has no history nausea or vomiting like symptoms. Patient denies any recent fever, chills, shortness of breath, chest pain, back pain, nausea vomiting, numbness or tingling, dysuria or hematuria, constipation or diarrhea, headaches or visual changes, or any other current symptoms. - Related Data Home Medications Medication Instructions Recorded Confirmed Divalproex ER [Depakote ER] 500 mg PO TID 10/09/13 09/27/16 Albuterol Sulfate [Ventolin HFA] 2 puff INHALATION RT-Q6H PRN 06/10/14 09/27/16 metFORMIN HCL [Glucophage] 500 mg PO DAILY 06/10/14 09/27/16 Atorvastatin [Lipitor] 40 mg PO HS 01/05/15 09/27/16 Metoprolol Succinate [Toprol XL] 25 mg PO DAILY 01/05/15 09/27/16 Aspirin EC [Ecotrin Low Dose] 81 mg PO DAILY 06/01/16 09/27/16 Baclofen 10 mg PO TID 06/01/16 09/27/16 Beclomethasone Dipropionate [Qvar 2 puff INHALATION RT-BID 06/01/16 09/27/16 80 mcg] Butalb/Acetaminophen/Caffeine 1 tab PO Q8H PRN 06/01/16 09/27/16 [Fioricet 50-325-40] Montelukast Sodium [Singulair] 10 mg PO DAILY PRN 06/01/16 09/27/16 Venlafaxine HCl ER [Effexor XR] 150 mg PO HS 09/27/16 09/27/16 traZODone HCL 150 mg PO HS 09/27/16 09/27/16 Allergies Allergy/AdvReac Type Severity Reaction Status Date / Time naproxen [From Naprosyn] Allergy Unknown Rash/Hives Verified 10/28/16 17:59 carrot Allergy Dyspnea Verified 10/28/16 17:59 chocolate flavor Allergy Dyspnea Verified 10/28/16 17:59 grass pollen-perennial rye, Allergy Dyspnea Verified 10/28/16 17:59 standar Review of Systems ROS Statement: Those systems with pertinent positive or pertinent negative responses have been documented in the HPI. ROS Other: All systems not noted in ROS Statement are negative. Past Medical History Past Medical History: Chest Pain / Angina, Diabetes Mellitus, GERD/Reflux, Hyperlipidemia, Hypertension, Myocardial Infarction ([place]) Additional Past Medical History / Comment(s): back, mood disturbance. 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 No international travel since. No animal exposures. Ongoing tobacco use. No smoking alcohol or current recreational drug use Smoking Status: Current every day smoker Past Alcohol Use History: None Reported Past Drug Use History: None Reported - Past Family History Father Family Medical History: Congestive Heart Failure (CHF), Deep Vein Thrombosis ( DVT), Myocardial Infarction ([place]), Pulmonary Embolus Additional Family Medical History / Comment(s): [place] at age 38. "hole in colon" Mother Family Medical History: Cancer, COPD, Diabetes Mellitus, Hyperlipidemia Additional Family Medical History / Comment(s): breast and lung cancer Sister(s) Family Medical History: Diabetes Mellitus Additional Family Medical History / Comment(s): bi-polar, anxiety. hysterectomy Brother(s) History Unknown: Yes General Exam - General Exam Comments Initial Comments: General: The patient is awake and alert, in no distress, and does not appear acutely ill. Eye: Pupils are equal, round and reactive to light, extra-ocular movements are intact; there is normal conjunctiva bilaterally. No signs of icterus. Ears, nose, mouth and throat: There are moist mucous membranes. Neck: The neck is supple, there is no tenderness. Cardiovascular: There is a regular rate and rhythm. No murmur, rub or gallop is appreciated. Respiratory: Lungs are clear to auscultation, respirations are non-labored, breath sounds are equal. No wheezes, stridor, rales, or rhonchi. Gastrointestinal: Soft, non-distended, non-tender abdomen without masses or organomegaly noted. There is no rebound or guarding present. No CVA tenderness. Bowel sounds are unremarkable. Back: There is no tenderness to palpation in the midline. There is no obvious deformity. No rashes noted. Musculoskeletal: Normal ROM, no tenderness, There is no pedal edema. There is no calf tenderness or swelling. Sensation intact. Pulses equal bilaterally 2+. Neurological: CN II-XII intact, There are no obvious motor or sensory deficits. Coordination appears grossly intact. Speech is normal. Skin: Skin is warm and dry and no rashes or lesions are noted. Psychiatric: Cooperative, appropriate mood & affect, normal judgment. Limitations: no limitations exam: Present: normal inspection, vertical testicular lie, circumcision, other (No hernia palpated). Absent: testicular tenderness, urethral discharge, scrotal swelling Course Vital Signs 10/28/16 10/28/16 17:58 19:57 Temperature 98.1 F 98.4 F Pulse Rate 80 64 Respiratory 20 16 Rate Blood Pressure 135/78 123/68 O2 Sat by Pulse 98 99 Oximetry Medical Decision Making - Medical Decision Making 45-year-old male presents for bilateral groin pain. At this time hernia exam did not show any sign of hernia. Patient's laboratory studies reviewed negative and ultrasound does not show any signs of patient's pain. This time we discussed close follow up with . we discussed return parameters. We discussed possible etiologies for this and all patient's questions. FRUIT FARMER anything and plan. He will be discharged. - Lab Data Result diagrams: 10/28/16 19:16 10/28/16 19:16 Lab Results 10/28/16 10/28/16 10/28/16 Range/Units 19:16 19:16 19:16 WBC 5.8 (3.8-10.6) k/uL RBC 4.65 (4.30-5.90) m/uL Hgb 14.6 (13.0-17.5) gm/dL Hct 42.0 (39.0-53.0) % MCV 90.5 (80.0-100.0) fL MCH 31.4 (25.0-35.0) pg MCHC 34.7 (31.0-37.0) g/dL RDW 13.9 (11.5-15.5) % Plt Count 140 L (150-450) k/uL Neutrophils % 59 % Lymphocytes % 30 % Monocytes % 6 % Eosinophils % 2 % Basophils % 1 % Neutrophils # 3.4 (1.3-7.7) k/uL Lymphocytes # 1.7 (1.0-4.8) k/uL Monocytes # 0.4 (0-1.0) k/uL Eosinophils # 0.1 (0-0.7) k/uL Basophils # 0.1 (0-0.2) k/uL Sodium 142 (137-145) mmol/L Potassium 3.8 (3.5-5.1) mmol/L Chloride 107 (98-107) mmol/L Carbon Dioxide 27 (22-30) mmol/L Anion Gap 8 mmol/L BUN 10 (9-20) mg/dL Creatinine 0.69 (0.66-1.25) mg/dL Est GFR (MDRD) Af Amer >60 (>60 ml/min/1.73 sqM) Est GFR (MDRD) Non-Af >60 (>60 ml/min/1.73 sqM) Glucose 96 (74-99) mg/dL Calcium 9.3 (8.4-10.2) mg/dL Total Bilirubin 0.5 (0.2-1.3) mg/dL AST 14 L (17-59) U/L ALT 31 (21-72) U/L Alkaline Phosphatase 66 (38-126) U/L Total Protein 6.1 L (6.3-8.2) g/dL Albumin 3.7 (3.5-5.0) g/dL Urine Color Yellow Urine Appearance Cloudy (Clear) Urine pH 7.0 (5.0-8.0) Ur Specific [place] 1.014 (1.001-1.035) Urine Protein Negative (Negative) Urine Glucose (UA) Negative (Negative) Urine Ketones Negative (Negative) Urine Blood Negative (Negative) Urine Nitrite Negative (Negative) Urine Bilirubin Negative (Negative) Urine Urobilinogen 2.0 (<2.0) mg/dL Ur Leukocyte Esterase Negative (Negative) Urine WBC 1 (0-5) /hpf Amorphous Sediment Moderate H (None) /hpf Urine Mucus Rare H (None) /hpf - Radiology Data Radiology results: report reviewed, image reviewed Disposition Clinical Impression: Bilateral groin pain Disposition: HOME SELF-CARE Condition: Stable Instructions: Abdominal Pain (ED) Additional Instructions: Please use medication as discussed. Please follow up with family doctor if symptoms have not improved over the next two days. Please return to the emergency room if your symptoms increase or worsen or for any other concerns. Referrals: Mine Walsh MD [Primary Care Provider] - 1-2 days Time of Disposition: 20:38
[2016-10-28 19:37] LABS: Basophils # (A) 0.1 k/uL (0-0.2); Basophils % (A) 1 %; CHCM 35.5; Eosinophils # (A) 0.1 k/uL (0-0.7); Eosinophils % (A) 2 %; HDW 2.96; HGB 14.6 gm/dL (13.0-17.5); Luc # (Auto) 0.09; Luc % (Auto) 2; Lymphocytes # (A) 1.7 k/uL (1.0-4.8); Lymphocytes % (A) 30 %; MCH 31.4 pg (25.0-35.0); MCHC 34.7 g/dL (31.0-37.0); MCV 90.5 fL (80.0-100.0); Mean Platelet Volume 7.2; Monocytes # (A) 0.4 k/uL (0-1.0); Monocytes % (A) 6 %; Neutrophils # (A) 3.4 k/uL (1.3-7.7); Neutrophils % (A) 59 %; RBC 4.65 m/uL (4.30-5.90); RDW 13.9 % (11.5-15.5); WBC 5.8 k/uL (3.8-10.6); WBC (Perox) 5.62
[2016-10-28 19:40] LABS: Amorphous Sediment,Urine Moderate /hpf; Appearance,Urine Cloudy (Clear); Bilirubin,Urine Negative (Negative); Glucose,Urine (UA) Negative (Negative); Ketones,Urine Negative (Negative); Leukocyte Esterase,Urine Negative (Negative); Mucus,Urine Rare /hpf; Nitrite,Urine Negative (Negative); Particle Count 5687; Protein,Urine Negative (Negative); Specific Gravity,Urine 1.014 (1.001-1.035); UA Billing (MACRO vs. MICRO) MICRO; WBC,Urine 1 /hpf (0-5)
[2016-10-28 19:47] LABS: ALT 31 U/L (21-72); AST 14 U/L (17-59); Alkaline Phosphatase 66 U/L (38-126); Anion Gap 8 mmol/L; Blood Urea Nitrogen 10 mg/dL (9-20); Calcium 9.3 mg/dL (8.4-10.2); Carbon Dioxide 27 mmol/L (22-30); Chloride 107 mmol/L (98-107); Glucose 96 mg/dL (74-99); Non-African American GFR(MDRD) >60 (>60 ml/min/1.73 sqM); Potassium 3.8 mmol/L (3.5-5.1); Sodium 142 mmol/L (137-145); Total Bilirubin 0.5 mg/dL (0.2-1.3); Total Protein 6.1 g/dL (6.3-8.2)
--- NOTE | 2016-10-28 19:53 | XR ---
EXAMINATION TYPE: XR abdomen 2V DATE OF EXAM: 10/28/2016 7:36 PM COMPARISON: 07/09/2016 HISTORY: Abdominal pain TECHNIQUE: 3 views FINDINGS: Bowel gas pattern is normal. There is no sign of intestinal obstruction or pneumoperitoneum. Fecal pa ttern is normal. There is no evidence of a mass. Lung bases are clear. There are no pathologic calcif ications over the kidneys. IMPRESSION: Nonacute abdomen. No change compared to old exam. There is removal of the right ureteral stent since last exam.
[2016-10-28 19:59] VITALS: RESP 16; TEMP 98.4
--- NOTE | 2016-10-28 20:14 | US ---
EXAMINATION TYPE: US scrotum with doppler. Grayscale and color Doppler Duplex imaging performed of t steffi scrotum. DATE OF EXAM: 10/28/2016 COMPARISON: NONE CLINICAL HISTORY: testicular and groin pain. Bilateral pain, left more so than right. Hx of left her mingo repair. EXAM MEASUREMENTS: TESTICLES: Right Testicle: 3.6 x 2.9 x 2.2 cm Left Testicle: 3.4 x 3.8 x 2.4 cm EPIDIDYMIS HEAD: Right Epididymis: 0.9 x 1.0 x 0.6 cm Left Epididymis: 1.1 x 0.8 x 0.8 cm Doppler performed to assess for testicular vascularity; good bilateral color flow and waveforms are s een. There is no evidence of testicular torsion. Presence of hydroceles: left Presence of varicoceles: no Medal anterior echogenic focus = 0.3 x 0.3 cm IMPRESSION: There is a mild left-sided hydrocele. There is a 3 mm area of calcification in the right testicle probably related to degenerative phenomenon. There is no evidence of torsion. There is arleth l arterial waveform in the testicular arteries.
[2016-10-28 21:18] VITALS: BP 120/63; PULSE 68
== END 2016-10-28 21:15 | disposition home or self-care (01) ==
LOC: EC 17:52
DX: R10.30 Lower abdominal pain, unspecified (principal); E11.9 Type 2 diabetes mellitus without complications; E78.5 Hyperlipidemia, unspecified; I10 Essential (primary) hypertension; F31.9 Bipolar disorder, unspecified; F17.200 Nicotine dependence, unspecified, uncomplicated; Z88.8 Allergy status to other drugs, medicaments and biological substances; Z91.018 Allergy to other foods; Z91.09 Other allergy status, other than to drugs and biological substances; Z79.84 Long term (current) use of oral hypoglycemic drugs; Z79.82 Long term (current) use of aspirin; Z79.51 Long term (current) use of inhaled steroids; Z79.899 Other long term (current) drug therapy
CPT/HCPCS: 99284; 96374; 96361 ×2; 36415; 80053; 85025; 81001; 87086; 74020; 93975; 76870; J1885

== ENCOUNTER 2016-11-08 21:12 | Emergency (ER) | payer MEDICARE, OTHER ==
[2016-11-08] MEDS ORDERED: ONDANSETRON ODT 8 MG TAB.RAPDIS PO STA (21:34)
[2016-11-08] MEDS ORDERED: SODIUM CHLORIDE 0.9% 1,000 ML IV STA (21:34)
[2016-11-08] MEDS ORDERED: MAG HYDROX/AL HYDROX/SIMETH 30 ML, HYOSCYAMINE ELIXIR 10 ML, CIMETIDINE HCL 300 MG, LID... PO STA ×4 (21:35)
--- NOTE | 2016-11-08 21:59 | ED ---
Abdominal Pain HPI - General Chief Complaint: Abdominal Pain Stated Complaint: R Abd Pain Time Seen by Provider: 11/08/16 21:28 Source: patient, RN notes reviewed, old records reviewed Mode of arrival: wheelchair Limitations: no limitations - History of Present Illness Initial Comments: 45-year-old male presents emergency Department chief complaint of acute onset of right upper quadrant abdominal pain for the past hour. Patient reports that it started off as a sharp stabbing pain. He reports that he was cooking dinner when started. Patient denies that he ate prior to this happening. Denies any changes in urination, bowel movements. Denies any vomiting. Patient denies any fever or chills. Patient states that he has history of left-sided inguinal hernia repair. He does have his appendix and gallbladder. She reports that he has some bile taste in his mouth and burning sensation up his throat. - Related Data Home Medications Medication Instructions Recorded Confirmed Divalproex ER [Depakote ER] 500 mg PO TID 10/09/13 11/08/16 Albuterol Sulfate [Ventolin HFA] 2 puff INHALATION RT-Q6H PRN 06/10/14 11/08/16 metFORMIN HCL [Glucophage] 500 mg PO DAILY 06/10/14 11/08/16 Atorvastatin [Lipitor] 40 mg PO HS 01/05/15 11/08/16 Metoprolol Succinate [Toprol XL] 25 mg PO DAILY 01/05/15 11/08/16 Aspirin EC [Ecotrin Low Dose] 81 mg PO DAILY 06/01/16 11/08/16 Baclofen 10 mg PO TID 06/01/16 11/08/16 Beclomethasone Dipropionate [Qvar 2 puff INHALATION RT-BID 06/01/16 11/08/16 80 mcg] Butalb/Acetaminophen/Caffeine 1 tab PO Q8H PRN 06/01/16 11/08/16 [Fioricet 50-325-40] Montelukast Sodium [Singulair] 10 mg PO DAILY 06/01/16 11/08/16 Venlafaxine HCl ER [Effexor XR] 150 mg PO HS 09/27/16 11/08/16 traZODone HCL 150 mg PO HS 09/27/16 11/08/16 Previous Rx's Medication Instructions Recorded Famotidine [Pepcid] 20 mg PO BID #20 tablet 11/08/16 Allergies Allergy/AdvReac Type Severity Reaction Status Date / Time naproxen [From Naprosyn] Allergy Unknown Rash/Hives Verified 11/08/16 21:25 carrot Allergy Dyspnea Verified 11/08/16 21:25 chocolate flavor Allergy Dyspnea Verified 11/08/16 21:25 grass pollen-perennial rye, Allergy Dyspnea Verified 11/08/16 21:25 standar mold Allergy Unknown Verified 11/08/16 21:25 Review of Systems ROS Statement: Those systems with pertinent positive or pertinent negative responses have been documented in the HPI. ROS Other: All systems not noted in ROS Statement are negative. Past Medical History Past Medical History: Chest Pain / Angina, Diabetes Mellitus, GERD/Reflux, Hyperlipidemia, Hypertension, Myocardial Infarction ([place]) Additional Past Medical History / Comment(s): back, mood disturbance. Last Myocardial Infarction Date:: 2004 History of Any Multi-Drug Resistant Organisms: None Reported Past Surgical History: Hernia Repair, Joint Replacement Additional Past Surgical History / Comment(s): rt knee arthroscopy x3, lt knee arthroscopy last date 2012,total knee replacement rt knee; cardiac stent x1 2004 , stent placed for kidney stone 07/04/2016 Past Anesthesia/Blood Transfusion Reactions: No Reported Reaction Date of Last Stent Placement:: 2004 Past Psychological History: Anxiety, Bipolar, Depression Additional Psychological History / Comment(s): Lives with his fiance. 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 No international travel since. No animal exposures. Ongoing tobacco use. No smoking alcohol or current recreational drug use Smoking Status: Current every day smoker Past Alcohol Use History: None Reported Past Drug Use History: None Reported - Past Family History Father Family Medical History: Congestive Heart Failure (CHF), Deep Vein Thrombosis ( DVT), Myocardial Infarction ([place]), Pulmonary Embolus Additional Family Medical History / Comment(s): [place] at age 38. "hole in colon" Mother Family Medical History: Cancer, COPD, Diabetes Mellitus, Hyperlipidemia Additional Family Medical History / Comment(s): breast and lung cancer Sister(s) Family Medical History: Diabetes Mellitus Additional Family Medical History / Comment(s): bi-polar, anxiety. hysterectomy Brother(s) History Unknown: Yes General Exam - General Exam Comments Initial Comments: Well-appearing 45-year-old male. No distress. Limitations: no limitations General appearance: alert, in no apparent distress Head exam: Present: atraumatic, normocephalic, normal inspection Eye exam: Present: normal appearance, PERRL, EOMI. Absent: scleral icterus, conjunctival injection, periorbital swelling ENT exam: Present: normal exam, mucous membranes moist Neck exam: Present: normal inspection. Absent: tenderness, meningismus, lymphadenopathy Respiratory exam: Present: normal lung sounds bilaterally. Absent: respiratory distress, wheezes, rales, rhonchi, stridor Cardiovascular Exam: Present: regular rate, normal rhythm, normal heart sounds. Absent: systolic murmur, diastolic murmur, rubs, gallop, clicks GI/Abdominal exam: Present: soft, tenderness (RUQ tenderness), normal bowel sounds. Absent: distended, guarding, rebound, rigid Extremities exam: Present: normal inspection, full ROM, normal capillary refill. Absent: tenderness, pedal edema, joint swelling, calf tenderness Back exam: Present: normal inspection Neurological exam: Present: alert, oriented X3, CN II-XII intact Psychiatric exam: Present: normal affect, normal mood Skin exam: Present: warm, dry, intact, normal color. Absent: rash Course Vital Signs 11/08/16 11/08/16 21:16 22:47 Temperature 98.2 F 97.7 F Pulse Rate 91 83 Respiratory 20 17 Rate Blood Pressure 133/75 105/51 O2 Sat by Pulse 97 98 Oximetry Medical Decision Making - Medical Decision Making 45-year-old male presents emergency Department chief complaint of acute onset of right upper quadrant abdominal pain for the past hour. Patient reports that it started off as a sharp stabbing pain. He reports that he was cooking dinner when started. Patient denies that he ate prior to this happening. Denies any changes in urination, bowel movements. Denies any vomiting. Patient denies any fever or chills. Patient states that he has history of left-sided inguinal hernia repair. He does have his appendix and gallbladder. She reports that he has some bile taste in his mouth and burning sensation up his throat. Patient' s lab work was reviewed and negative for any acute process. Patient is given GI cocktail. Discussed that he can follow-up with primary care provider symptoms continue persist. Patient is treatment plan will comply. Return parameters were discussed. - Lab Data Result diagrams: 11/08/16 21:50 11/08/16 21:50 Lab Results 11/08/16 11/08/16 11/08/16 Range/Units 21:48 21:50 21:50 WBC 6.3 (3.8-10.6) k/uL RBC 4.54 (4.30-5.90) m/uL Hgb 14.3 (13.0-17.5) gm/dL Hct 40.8 (39.0-53.0) % MCV 89.9 (80.0-100.0) fL MCH 31.5 (25.0-35.0) pg MCHC 35.0 (31.0-37.0) g/dL RDW 13.8 (11.5-15.5) % Plt Count 147 L (150-450) k/uL Neutrophils % 56 % Lymphocytes % 32 % Monocytes % 6 % Eosinophils % 3 % Basophils % 1 % Neutrophils # 3.6 (1.3-7.7) k/uL Lymphocytes # 2.0 (1.0-4.8) k/uL Monocytes # 0.4 (0-1.0) k/uL Eosinophils # 0.2 (0-0.7) k/uL Basophils # 0.0 (0-0.2) k/uL Sodium 140 (137-145) mmol/L Potassium 3.8 (3.5-5.1) mmol/L Chloride 106 (98-107) mmol/L Carbon Dioxide 24 (22-30) mmol/L Anion Gap 10 mmol/L BUN 13 (9-20) mg/dL Creatinine 0.80 (0.66-1.25) mg/dL Est GFR (MDRD) Af Amer >60 (>60 ml/min/1.73 sqM) Est GFR (MDRD) Non-Af >60 (>60 ml/min/1.73 sqM) Glucose 99 (74-99) mg/dL Calcium 8.9 (8.4-10.2) mg/dL Total Bilirubin 0.4 (0.2-1.3) mg/dL AST 16 L (17-59) U/L ALT 37 (21-72) U/L Alkaline Phosphatase 76 (38-126) U/L Total Protein 6.0 L (6.3-8.2) g/dL Albumin 3.7 (3.5-5.0) g/dL Amylase 39 (30-110) U/L Lipase 70 (23-300) U/L Urine Color Yellow Urine Appearance Clear (Clear) Urine pH 6.0 (5.0-8.0) Ur Specific [place] 1.016 (1.001-1.035) Urine Protein Negative (Negative) Urine Glucose (UA) Negative (Negative) Urine Ketones Negative (Negative) Urine Blood Negative (Negative) Urine Nitrite Negative (Negative) Urine Bilirubin Negative (Negative) Urine Urobilinogen 2.0 (<2.0) mg/dL Ur Leukocyte Esterase Negative (Negative) Disposition Clinical Impression: Abdominal pain Disposition: HOME SELF-CARE Condition: Good Instructions: Abdominal Pain (ED) Additional Instructions: Follow-up with primary care physician within next 2-3 days if symptoms continue persist. Return to the emergency department if any alarming signs or symptoms occur including fever, vomiting or other symptoms. Prescriptions: Famotidine [Pepcid] 20 mg PO BID #20 tablet Referrals: Mine Walsh MD [Primary Care Provider] - 1-2 days Time of Disposition: 22:36
[2016-11-08] MEDS ORDERED: ONDANSETRON ODT 4 MG TAB PO STA (22:00)
[2016-11-08 22:06] LABS: Basophils % (A) 1 %; CH 31.8; CHCM 35.5; Eosinophils # (A) 0.2 k/uL (0-0.7); Eosinophils % (A) 3 %; HCT 40.8 % (39.0-53.0); HDW 2.96; HGB 14.3 gm/dL (13.0-17.5); Luc # (Auto) 0.11; Luc % (Auto) 2; Lymphocytes % (A) 32 %; MCH 31.5 pg (25.0-35.0); MCV 89.9 fL (80.0-100.0); Mean Platelet Volume 7.6; Monocytes # (A) 0.4 k/uL (0-1.0); Monocytes % (A) 6 %; Neutrophils # (A) 3.6 k/uL (1.3-7.7); Neutrophils % (A) 56 %; RBC 4.54 m/uL (4.30-5.90); RDW 13.8 % (11.5-15.5); WBC 6.3 k/uL (3.8-10.6); WBC (Perox) 6.35
[2016-11-08 22:09] LABS: Appearance,Urine Clear (Clear); Bilirubin,Urine Negative (Negative); Glucose,Urine (UA) Negative (Negative); Ketones,Urine Negative (Negative); Leukocyte Esterase,Urine Negative (Negative); Nitrite,Urine Negative (Negative); Protein,Urine Negative (Negative); Specific Gravity,Urine 1.016 (1.001-1.035); UA Billing (MACRO vs. MICRO) CHEM
[2016-11-08 22:17] LABS: ALT 37 U/L (21-72); AST 16 U/L (17-59); Alkaline Phosphatase 76 U/L (38-126); Amylase 39 U/L (30-110); Anion Gap 10 mmol/L; Blood Urea Nitrogen 13 mg/dL (9-20); Calcium 8.9 mg/dL (8.4-10.2); Carbon Dioxide 24 mmol/L (22-30); Chloride 106 mmol/L (98-107); Glucose 99 mg/dL (74-99); Non-African American GFR(MDRD) >60 (>60 ml/min/1.73 sqM); Potassium 3.8 mmol/L (3.5-5.1); Sodium 140 mmol/L (137-145); Total Bilirubin 0.4 mg/dL (0.2-1.3)
[2016-11-08 22:48] VITALS: BP 105/51; PULSE 83; RESP 17; TEMP 97.7
--- NOTE | 2016-11-09 07:44 | XR ---
Abdomen HISTORY: Abdomen pain Frontal view of the abdomen on 2 images correlated to prior abdomen 07/08/2016, 10/28/2016 There is no significant interval change. Lung bases are clear. There is no bowel obstruction or pneum operitoneum evident. The liver and spleen are enlarged. IMPRESSION: Nonobstructive bowel gas pattern. Hepatosplenomegaly..
== END 2016-11-08 22:47 | disposition home or self-care (01) ==
LOC: EC 21:12
DX: R10.11 Right upper quadrant pain (principal); E11.9 Type 2 diabetes mellitus without complications; K21.9 Gastro-esophageal reflux disease without esophagitis; E78.5 Hyperlipidemia, unspecified; I10 Essential (primary) hypertension; I25.2 Old myocardial infarction; F31.9 Bipolar disorder, unspecified; F41.9 Anxiety disorder, unspecified; F17.200 Nicotine dependence, unspecified, uncomplicated; Z79.82 Long term (current) use of aspirin; Z79.51 Long term (current) use of inhaled steroids; Z79.84 Long term (current) use of oral hypoglycemic drugs; Z79.899 Other long term (current) drug therapy; Z88.6 Allergy status to analgesic agent; Z91.018 Allergy to other foods; Z91.048 Other nonmedicinal substance allergy status
CPT/HCPCS: 36415; 74000; 80053; 81003; 82150; 83690; 85025; 96360; 99284

== ENCOUNTER → 2016-11-17 | Outpatient (CLI) | payer MEDICARE, OTHER ==
--- NOTE | 2016-11-17 11:22 | CT ---
EXAMINATION TYPE: CT abdomen pelvis w con DATE OF EXAM: 11/17/2016 COMPARISON: June 01, 2016 HISTORY: Right lower quadrant pain. R 10.31. K 59.00. Constipation. Right-sided stomach pain for [address] DLP: 1117.9 mGycm Automated exposure control for dose reduction was used. TECHNIQUE: Helical acquisition of images was performed from the lung bases through the pelvis. CONTRAST: Performed with Oral Contrast and with IV Contrast, patient injected with 100 mL of Omnipaque 300. FINDINGS: LUNG BASES: No significant abnormality is appreciated. LIVER/GB: Diffuse hepatic steatosis is again noted. The gallbladder appears unremarkable. There is no intra or extrahepatic biliary ductal dilatation. PANCREAS: No significant abnormality is seen. SPLEEN: No significant abnormality is seen. ADRENALS: No significant abnormality is seen. KIDNEYS: No significant abnormality is seen. FREE AIR: No free air is visualized. RETROPERITONEAL ADENOPATHY: None visualized REPRODUCTIVE ORGANS: Calcifications are identified in the left aspect of the prostate. This finding i s unchanged. There could be a small right-sided hydrocele. URINARY BLADDER: Minimal bladder wall thickening is noted which could be due to previously described chronic inflammation. PELVIC ADENOPATHY: None visualized. OSSEOUS STRUCTURES: No significant abnormality is seen. Vacuum disc phenomenon is noted at L5-S1 wit h loss of intervertebral disc space height. There are also posterior osteophytes identified at this l evel which causes a degree of bilateral neural foraminal narrowing. BOWEL: Mild thickening of the rectum wall is noted which could be due to nondistention. There is lipo matous hypertrophy of the ileocecal valve, a normal finding. There is very mild diverticulosis of the descending and sigmoid colon. There is no evidence of acute diverticulitis. There is no evidence of impaction or obstruction. The appendix is visualized and is normal. OTHER: A right side fat filled inguinal hernia is noted. IMPRESSION: HEPATIC STEATOSIS IS AGAIN NOTED. QUESTIONABLE THICKENING OF THE RECTAL WALL IS MOST LIKELY DUE TO NONDISTENTION. MILD DIVERTICULOSIS WITHOUT EVIDENCE OF ACUTE DIVERTICULITIS.
== END | disposition home or self-care (01) ==
LOC: RADCTMAIN 08:38
PROVIDERS: ATTEND Internal Medicine
DX: K76.0 Fatty (change of) liver, not elsewhere classified (principal); K57.30 Diverticulosis of large intestine without perforation or abscess without bleeding; K59.00 Constipation, unspecified
CPT/HCPCS: 74177; Q9967

== ENCOUNTER 2016-12-08 22:54 | Emergency (ER) | payer MEDICARE, OTHER ==
[2016-12-08 23:02] VITALS: RESP 18
[2016-12-08] MEDS ORDERED: KETOROLAC 60 MG/2 ML VIAL IM STA (23:38)
[2016-12-08] MEDS ORDERED: ORPHENADRINE 30 MG/ML 2 ML VIAL IM STA (23:38)
--- NOTE | 2016-12-09 00:29 | ED ---
Neck Injury/Pain HPI - General Chief Complaint: Neck Pain/Injury Stated Complaint: neck pain Time Seen by Provider: 12/08/16 23:07 Mode of arrival: ambulatory Limitations: no limitations - Related Data Home Medications Medication Instructions Recorded Confirmed Albuterol Sulfate [Ventolin HFA] 2 puff INHALATION RT-Q6H PRN 06/10/14 12/08/16 metFORMIN HCL [Glucophage] 500 mg PO W/SUPPER 06/10/14 12/08/16 Atorvastatin [Lipitor] 40 mg PO HS 01/05/15 12/08/16 Baclofen 10 mg PO TID 06/01/16 12/08/16 Beclomethasone Dipropionate [Qvar 2 puff INHALATION RT-BID 06/01/16 12/08/16 80 mcg] Montelukast Sodium [Singulair] 10 mg PO HS 06/01/16 12/08/16 Venlafaxine HCl ER [Effexor XR] 150 mg PO HS 09/27/16 12/08/16 traZODone HCL 150 mg PO HS 09/27/16 12/08/16 Divalproex Sodium [Depakote] 500 mg PO TID 12/08/16 12/08/16 Gabapentin [Neurontin] 300 mg PO TID 12/08/16 12/08/16 Ibuprofen 800 mg PO TID 12/08/16 12/08/16 Metoprolol Tartrate [Lopressor] 25 mg PO DAILY 12/08/16 12/08/16 Previous Rx's Medication Instructions Recorded Cyclobenzaprine [Flexeril] 10 mg PO TID #12 tab 12/09/16 Allergies Allergy/AdvReac Type Severity Reaction Status Date / Time naproxen [From Naprosyn] Allergy Unknown Rash/Hives Verified 12/08/16 23:35 carrot Allergy Dyspnea Verified 11/08/16 21:25 chocolate flavor Allergy Dyspnea Verified 11/08/16 21:25 grass pollen-perennial rye, Allergy Dyspnea Verified 11/08/16 21:25 standar mold Allergy Unknown Verified 11/08/16 21:25 Review of Systems ROS Statement: Those systems with pertinent positive or pertinent negative responses have been documented in the HPI. ROS Other: All systems not noted in ROS Statement are negative. Past Medical History Past Medical History: Chest Pain / Angina, Diabetes Mellitus, GERD/Reflux, Hyperlipidemia, Hypertension, Myocardial Infarction ([place]) Additional Past Medical History / Comment(s): back, mood disturbance. Last Myocardial Infarction Date:: 2004 History of Any Multi-Drug Resistant Organisms: None Reported Past Surgical History: Hernia Repair, Joint Replacement Additional Past Surgical History / Comment(s): rt knee arthroscopy x3, lt knee arthroscopy last date 2012,total knee replacement rt knee; cardiac stent x1 2004 , stent placed for kidney stone 07/04/2016 Past Anesthesia/Blood Transfusion Reactions: No Reported Reaction Date of Last Stent Placement:: 2004 Past Psychological History: Anxiety, Bipolar, Depression Smoking Status: Current every day smoker Past Alcohol Use History: None Reported Past Drug Use History: None Reported - Past Family History Father Family Medical History: Congestive Heart Failure (CHF), Deep Vein Thrombosis ( DVT), Myocardial Infarction ([place]), Pulmonary Embolus Additional Family Medical History / Comment(s): [place] at age 38. "hole in colon" Mother Family Medical History: Cancer, COPD, Diabetes Mellitus, Hyperlipidemia Additional Family Medical History / Comment(s): breast and lung cancer Sister(s) Family Medical History: Diabetes Mellitus Additional Family Medical History / Comment(s): bi-polar, anxiety. hysterectomy Brother(s) History Unknown: Yes General Exam Limitations: no limitations Course Vital Signs 12/08/16 23:00 Temperature 98.5 F Pulse Rate 86 Respiratory 18 Rate Blood Pressure 129/63 O2 Sat by Pulse 99 Oximetry Disposition Clinical Impression: Strain of neck Disposition: HOME SELF-CARE Condition: Good Instructions: Cervical Strain (ED) Additional Instructions: Patient advised to apply heat and ice to the back and neck. Follow-up with orthopedic physician. Take a temperature medication and muscle relaxers as prescribed. Prescriptions: Cyclobenzaprine [Flexeril] 10 mg PO TID #12 tab Referrals: Mine Walsh MD [Primary Care Provider] - 1-2 days Samreen Moe PAC [PHYSICIAN [facility]] - 1-2 days Time of Disposition: 00:27
--- NOTE | 2016-12-09 00:41 | XR ---
EXAM: XR Cervical Spine, 2 or 3 Views CLINICAL HISTORY: Reason: Pain TECHNIQUE: Frontal and lateral views of the cervical spine. COMPARISON: 09/09/14 radiographs. FINDINGS: Vertebrae: No acute fracture or change in alignment is seen. 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 There is again spondylosis with facet and uncovertebral joint degenerative changes again greatest within the mid cervical spine level, and disc space narrowing again greatest at C6-7, stable, as is slight rightward curvature of the mid cervical spine. Soft tissues: The paravertebral soft tissues are within normal limits. IMPRESSION: Multilevel cervical spondylosis, without new acute fracture or interval change in alignment seen, as above.
[2016-12-09 00:44] VITALS: BP 96/58; PULSE 72; TEMP 97.9
== END 2016-12-09 00:48 | disposition home or self-care (01) ==
LOC: EC 22:54
DX: S16.1XXA Strain of muscle, fascia and tendon at neck level, initial encounter (principal); E11.9 Type 2 diabetes mellitus without complications; K21.9 Gastro-esophageal reflux disease without esophagitis; E78.5 Hyperlipidemia, unspecified; I10 Essential (primary) hypertension; I25.2 Old myocardial infarction; F31.9 Bipolar disorder, unspecified; F41.9 Anxiety disorder, unspecified; F17.200 Nicotine dependence, unspecified, uncomplicated; Z79.51 Long term (current) use of inhaled steroids; Z79.84 Long term (current) use of oral hypoglycemic drugs; Z79.899 Other long term (current) drug therapy; Z79.1 Long term (current) use of non-steroidal anti-inflammatories (NSAID); Z88.6 Allergy status to analgesic agent; Z91.018 Allergy to other foods; Z91.048 Other nonmedicinal substance allergy status; Z95.5 Presence of coronary angioplasty implant and graft; X58.XXXA Exposure to other specified factors, initial encounter
CPT/HCPCS: 72040; 99283; 96372 ×2; J2360; J1885

== ENCOUNTER 2016-12-14 18:28 | Observation (INO) | payer MEDICARE, OTHER ==
[2016-12-14] MEDS ORDERED: ASPIRIN 81 MG CHEW PO STA (19:05)
[2016-12-14] MEDS ORDERED: NITROGLYCERIN OINT 1 INCH/GM PACKET TOPICAL STA (19:05)
--- NOTE | 2016-12-14 19:08 | ED ---
General Adult HPI - General Chief complaint: Chest Pain Stated complaint: chest pain Time Seen by Provider: 12/14/16 18:52 Source: patient, EMS, RN notes reviewed Mode of arrival: EMS Limitations: no limitations - History of Present Illness Initial comments: Patient is a pleasant 46-year-old male presenting to the emergency department complaining of chest discomfort. Onset of symptoms was just under an hour ago. Discomfort was moderate however now is mild. Patient did have associated dyspnea, nausea, and sweating tetherball resolved. Patient states symptoms are similar to previous heart problems. Discomfort was sternal with no radiation. Discomfort described as tightness. - Related Data Home Medications Medication Instructions Recorded Confirmed Albuterol Sulfate [Ventolin HFA] 2 puff INHALATION RT-Q6H PRN 06/10/14 12/14/16 metFORMIN HCL [Glucophage] 500 mg PO DAILY@199906/10/14 12/14/16 Atorvastatin [Lipitor] 40 mg PO DAILY@199901/05/15 12/14/16 Baclofen 10 mg PO TID 06/01/16 12/14/16 Beclomethasone Dipropionate [Qvar 2 puff INHALATION RT-BID 06/01/16 12/14/16 80 mcg] Montelukast Sodium [Singulair] 10 mg PO HS 06/01/16 12/14/16 Venlafaxine HCl ER [Effexor XR] 150 mg PO HS 09/27/16 12/14/16 traZODone HCL 150 mg PO HS 09/27/16 12/14/16 Divalproex Sodium [Depakote] 500 mg PO TID 12/08/16 12/14/16 Gabapentin [Neurontin] 300 mg PO TID 12/08/16 12/14/16 Ibuprofen 800 mg PO TID 12/08/16 12/14/16 Metoprolol Tartrate [Lopressor] 25 mg PO 12/08/16 12/14/16 Allergies Allergy/AdvReac Type Severity Reaction Status Date / Time naproxen [From Naprosyn] Allergy Unknown Rash/Hives Verified 12/14/16 18:49 carrot Allergy Dyspnea Verified 12/14/16 18:49 chocolate flavor Allergy Dyspnea Verified 12/14/16 18:49 grass pollen-perennial rye, Allergy Dyspnea Verified 12/14/16 18:49 standar mold Allergy Unknown Verified 12/14/16 18:49 Review of Systems ROS Statement: Those systems with pertinent positive or pertinent negative responses have been documented in the HPI. ROS Other: All systems not noted in ROS Statement are negative. Constitutional: Denies: fever Eyes: Denies: eye pain ENT: Denies: ear pain Respiratory: Reports: dyspnea. Denies: cough Cardiovascular: Reports: chest pain Endocrine: Denies: fatigue Gastrointestinal: Reports: nausea. Denies: abdominal pain Genitourinary: Denies: dysuria Musculoskeletal: Denies: back pain Skin: Denies: rash Neurological: Denies: headache Past Medical History Past Medical History: Chest Pain / Angina, Diabetes Mellitus, GERD/Reflux, Hyperlipidemia, Hypertension, Myocardial Infarction ([place]) Additional Past Medical History / Comment(s): back, mood disturbance. Last Myocardial Infarction Date:: 2004 History of Any Multi-Drug Resistant Organisms: None Reported Past Surgical History: Hernia Repair, Joint Replacement Additional Past Surgical History / Comment(s): rt knee arthroscopy x3, lt knee arthroscopy last date 2012,total knee replacement rt knee; cardiac stent x1 2004 , stent placed for kidney stone 07/04/2016 Past Anesthesia/Blood Transfusion Reactions: No Reported Reaction Date of Last Stent Placement:: 2004 Past Psychological History: Anxiety, Bipolar, Depression Smoking Status: Current every day smoker Past Alcohol Use History: None Reported Past Drug Use History: None Reported - Past Family History Father Family Medical History: Congestive Heart Failure (CHF), Deep Vein Thrombosis ( DVT), Myocardial Infarction ([place]), Pulmonary Embolus Additional Family Medical History / Comment(s): [place] at age 38. "hole in colon" Mother Family Medical History: Cancer, COPD, Diabetes Mellitus, Hyperlipidemia Additional Family Medical History / Comment(s): breast and lung cancer Sister(s) Family Medical History: Diabetes Mellitus Additional Family Medical History / Comment(s): bi-polar, anxiety. hysterectomy Brother(s) History Unknown: Yes General Exam Limitations: no limitations General appearance: alert, in no apparent distress Head exam: Present: atraumatic Eye exam: Present: normal appearance, PERRL ENT exam: Present: normal oropharynx Neck exam: Present: normal inspection Respiratory exam: Present: normal lung sounds bilaterally Cardiovascular Exam: Present: regular rate, normal rhythm Expanded Peripheral pulses: 2+: Radial (R), Radial (L), Dorsalis Pedis (R), Dorsalis Pedis (L) GI/Abdominal exam: Present: soft. Absent: tenderness Extremities exam: Present: normal inspection. Absent: pedal edema, calf tenderness Neurological exam: Present: alert Psychiatric exam: Present: normal affect, normal mood Skin exam: Present: normal color Course Vital Signs 12/14/16 12/14/16 12/14/16 18:31 19:33 20:47 Temperature 98.7 F Pulse Rate 91 80 87 Respiratory 16 18 16 Rate Blood Pressure 129/66 123/75 112/73 O2 Sat by Pulse 98 99 98 Oximetry EKG Findings - EKG Comments: EKG Findings:: Normal sinus rhythm 87. Normal intervals. Normal axis. Normal QRS. Normal ST-T. Medical Decision Making - Medical Decision Making Patient reevaluated and resting comfortably in bed. Patient updated on results and plan. Case was discussed with practitioner Carson, who will admit for Dr. Coto, covering for Dr. Walsh. - Lab Data Result diagrams: 12/14/16 18:30 12/14/16 18:30 Lab Results 12/14/16 12/14/16 12/14/16 Range/Units 18:30 18:30 18:30 WBC 5.7 (3.8-10.6) k/uL RBC 4.74 (4.30-5.90) m/uL Hgb 15.1 (13.0-17.5) gm/dL Hct 43.0 (39.0-53.0) % MCV 90.7 (80.0-100.0) fL MCH 31.9 (25.0-35.0) pg MCHC 35.2 (31.0-37.0) g/dL RDW 14.0 (11.5-15.5) % Plt Count 137 L (150-450) k/uL Neutrophils % 62 % Lymphocytes % 28 % Monocytes % 6 % Eosinophils % 2 % Basophils % 1 % Neutrophils # 3.5 (1.3-7.7) k/uL Lymphocytes # 1.6 (1.0-4.8) k/uL Monocytes # 0.3 (0-1.0) k/uL Eosinophils # 0.1 (0-0.7) k/uL Basophils # 0.0 (0-0.2) k/uL PT (9.0-12.0) sec INR (<1.2) APTT (22.0-30.0) sec Sodium 140 (137-145) mmol/L Potassium 3.8 (3.5-5.1) mmol/L Chloride 110 H (98-107) mmol/L Carbon Dioxide 21 L (22-30) mmol/L Anion Gap 9 mmol/L BUN 17 (9-20) mg/dL Creatinine 0.86 (0.66-1.25) mg/dL Est GFR (MDRD) Af Amer >60 (>60 ml/min/1.73 sqM) Est GFR (MDRD) Non-Af >60 (>60 ml/min/1.73 sqM) Glucose 143 H (74-99) mg/dL Calcium 8.3 L (8.4-10.2) mg/dL Magnesium 2.0 (1.6-2.3) mg/dL Total Bilirubin 0.3 (0.2-1.3) mg/dL AST 15 L (17-59) U/L ALT 25 (21-72) U/L Alkaline Phosphatase 49 (38-126) U/L Total Creatine Kinase 44 L (55-170) U/L CK-MB (CK-2) 0.9 (0.0-2.4) ng/mL CK-MB (CK-2) Rel Index 2.0 Troponin I <0.012 (0.000-0.034) ng/mL Total Protein 5.1 L (6.3-8.2) g/dL Albumin 3.2 L (3.5-5.0) g/dL 12/14/16 Range/Units 18:30 WBC (3.8-10.6) k/uL RBC (4.30-5.90) m/uL Hgb (13.0-17.5) gm/dL Hct (39.0-53.0) % MCV (80.0-100.0) fL MCH (25.0-35.0) pg MCHC (31.0-37.0) g/dL RDW (11.5-15.5) % Plt Count (150-450) k/uL Neutrophils % % Lymphocytes % % Monocytes % % Eosinophils % % Basophils % % Neutrophils # (1.3-7.7) k/uL Lymphocytes # (1.0-4.8) k/uL Monocytes # (0-1.0) k/uL Eosinophils # (0-0.7) k/uL Basophils # (0-0.2) k/uL PT 10.5 (9.0-12.0) sec INR 1.0 (<1.2) APTT 22.2 (22.0-30.0) sec Sodium (137-145) mmol/L Potassium (3.5-5.1) mmol/L Chloride (98-107) mmol/L Carbon Dioxide (22-30) mmol/L Anion Gap mmol/L BUN (9-20) mg/dL Creatinine (0.66-1.25) mg/dL Est GFR (MDRD) Af Amer (>60 ml/min/1.73 sqM) Est GFR (MDRD) Non-Af (>60 ml/min/1.73 sqM) Glucose (74-99) mg/dL Calcium (8.4-10.2) mg/dL Magnesium (1.6-2.3) mg/dL Total Bilirubin (0.2-1.3) mg/dL AST (17-59) U/L ALT (21-72) U/L Alkaline Phosphatase (38-126) U/L Total Creatine Kinase (55-170) U/L CK-MB (CK-2) (0.0-2.4) ng/mL CK-MB (CK-2) Rel Index Troponin I (0.000-0.034) ng/mL Total Protein (6.3-8.2) g/dL Albumin (3.5-5.0) g/dL - Radiology Data Radiology results: image reviewed (Chest x-ray shows no acute process) Disposition Clinical Impression: Chest pain Disposition: ADMITTED IP TO THIS [facility] Referrals: Mine Walsh MD [Primary Care Provider] - 1-2 days Decision Time: 20:53
[2016-12-14 19:25] LABS: Basophils % (A) 1 %; CH 32.1; CHCM 35.5; Eosinophils # (A) 0.1 k/uL (0-0.7); Eosinophils % (A) 2 %; HDW 2.77; HGB 15.1 gm/dL (13.0-17.5); Luc # (Auto) 0.08; Luc % (Auto) 1; Lymphocytes # (A) 1.6 k/uL (1.0-4.8); Lymphocytes % (A) 28 %; MCH 31.9 pg (25.0-35.0); MCHC 35.2 g/dL (31.0-37.0); MCV 90.7 fL (80.0-100.0); Mean Platelet Volume 7.7; Monocytes # (A) 0.3 k/uL (0-1.0); Monocytes % (A) 6 %; Neutrophils # (A) 3.5 k/uL (1.3-7.7); Neutrophils % (A) 62 %; RBC 4.74 m/uL (4.30-5.90); WBC 5.7 k/uL (3.8-10.6); WBC (Perox) 5.72
[2016-12-14 19:34] LABS: ALT 25 U/L (21-72); AST 15 U/L (17-59); Alkaline Phosphatase 49 U/L (38-126); Anion Gap 9 mmol/L; Blood Urea Nitrogen 17 mg/dL (9-20); Calcium 8.3 mg/dL (8.4-10.2); Carbon Dioxide 21 mmol/L (22-30); Chloride 110 mmol/L (98-107); Glucose 143 mg/dL (74-99); Non-African American GFR(MDRD) >60 (>60 ml/min/1.73 sqM); Potassium 3.8 mmol/L (3.5-5.1); Sodium 140 mmol/L (137-145); Total Bilirubin 0.3 mg/dL (0.2-1.3); Total Protein 5.1 g/dL (6.3-8.2)
[2016-12-14 19:47] LABS: Creatine Kinase 44 U/L (55-170)
--- NOTE | 2016-12-14 19:49 | XR ---
EXAMINATION TYPE: XR chest 2V DATE OF EXAM: 12/14/2016 COMPARISON: 09/27/2016 HISTORY: Chest pain TECHNIQUE: Frontal and lateral views of the chest are obtained. FINDINGS: Heart and mediastinum are normal. Lungs are clear. Diaphragm is normal. There are chest le ads. Bony thorax appears normal. IMPRESSION: Normal chest. No change.
[2016-12-14 19:50] LABS: Prothrombin Time 10.5 sec (9.0-12.0)
[2016-12-14 19:56] LABS: Partial Thromboplastin Time 22.2 sec (22.0-30.0)
[2016-12-14 20:02] LABS: Creatine Kinase MB 0.9 ng/mL (0.0-2.4); Troponin I <0.012 ng/mL (0.000-0.034)
[2016-12-14] MEDS ORDERED: NITROGLYCERIN SL TABS 0.4 MG TAB SUBLINGUAL PRN (20:53)
[2016-12-14 21:59] VITALS: BMI 30.2
[2016-12-14] MEDS ORDERED: ATORVASTATIN 40 MG TAB PO SCH (22:22)
[2016-12-14] MEDS ORDERED: metFORMIN 500 MG TAB PO SCH (22:23)
[2016-12-14] MEDS ORDERED: MORPHINE SULFATE 2 MG/ML SYRINGE IVP PRN (22:24)
[2016-12-14] MEDS ORDERED: IPRATROPIUM-ALBUTEROL 3 ML NEB INHALATION PRN (22:25)
[2016-12-14] MEDS ORDERED: ONDANSETRON 4 MG/2 ML VIAL IVP PRN (22:26)
[2016-12-14] MEDS ORDERED: VENLAFAXINE HCL ER 150 MG CAP PO SCH (22:30)
[2016-12-14] MEDS ORDERED: METOPROLOL TARTRATE 25 MG TAB PO SCH (22:30)
[2016-12-14] MEDS ORDERED: traZODone HCL 50 MG TAB PO SCH (22:30)
[2016-12-14] MEDS ORDERED: MONTELUKAST 10 MG TAB PO SCH (22:30)
[2016-12-14] MEDS: BACLOFEN 10 MG TAB PO SCH (23:07)
[2016-12-14] MEDS: DIVALPROEX 500 MG TABLET.DR PO SCH (23:07)
[2016-12-14] MEDS: IBUPROFEN 800 MG TAB PO SCH (23:08)
[2016-12-14] MEDS: GABAPENTIN 300 MG CAP PO SCH (23:08)
[2016-12-14] MEDS: NITROGLYCERIN OINT 1 INCH/GM PACKET TOPICAL SCH (23:39)
[2016-12-15 01:50] LABS: Creatine Kinase 26 U/L (55-170)
[2016-12-15 02:04] LABS: Creatine Kinase MB 0.9 ng/mL (0.0-2.4); Troponin I <0.012 ng/mL (0.000-0.034)
[2016-12-15] MEDS: NITROGLYCERIN OINT 1 INCH/GM PACKET TOPICAL SCH ×2 (06:11→17:05)
[2016-12-15 06:53] LABS: Glucose,Whole Blood 112 mg/dL (75-99)
[2016-12-15] MEDS: IPRATROPIUM-ALBUTEROL 3 ML NEB INHALATION SCH ×3 (07:25→16:16)
[2016-12-15 07:41] LABS: Cholesterol 141 mg/dL (<200); HDL Cholesterol 30 mg/dL (40-60)
[2016-12-15 07:44] LABS: Creatine Kinase 27 U/L (55-170)
[2016-12-15 07:55] LABS: Creatine Kinase MB 0.8 ng/mL (0.0-2.4); Troponin I <0.012 ng/mL (0.000-0.034)
[2016-12-15] MEDS ORDERED: BECLOMETHASONE DIP 80 MCG/PUFF INHALER INHALATION SCH (08:00)
[2016-12-15] MEDS ORDERED: DOBUTamine DRIP for NUC MED 500 MG in DEXTROSE/WATER 1 250ML.BAG IV ONE (08:28)
[2016-12-15] MEDS ORDERED: ASPIRIN 325 MG TAB PO SCH (09:00)
[2016-12-15] MEDS: BACLOFEN 10 MG TAB PO SCH ×2 (09:26→17:06)
[2016-12-15] MEDS: IBUPROFEN 800 MG TAB PO SCH ×2 (09:26→17:06)
[2016-12-15] MEDS: DIVALPROEX 500 MG TABLET.DR PO SCH ×2 (09:26→17:06)
[2016-12-15] MEDS: GABAPENTIN 300 MG CAP PO SCH ×2 (09:27→17:06)
--- NOTE | 2016-12-15 09:34 | CONS ---
CHIEF COMPLAINT: Chest pain. Mr. Burnham is a 46-year-old gentleman with history of dyslipidemia, non- insulin dependent diabetes, hypertension and neuropathy who presented to the hospital complaining of chest pain. He describes it as episodes of precordial chest pain, unrelated to exertion and ( ) with diaphoresis. There is no history of exertional angina, paroxysmal nocturnal dyspnea or orthopnea. The patient was in the hospital with chest pain back in September, ruled out for myocardial infarction and the stress test did not reveal ischemic at that time. An echocardiogram showed normal LV function. Past medical history is significant for hypertension, diabetes, dyslipidemia. Medications he is at home on trazodone, Glucophage, Effexor, Singulair, Lopressor, ibuprofen, Neurontin, Depakote, Qvar, baclofen, Lipitor and albuterol. Allergies include NAPROSYN. Family history is significant for coronary artery disease. Social history is significant for smoking. There is no history of EtOH abuse or drug abuse. REVIEW OF SYSTEMS: HEENT: Unremarkable. CARDIAC: As described above. RESPIRATORY: Negative. GI: Negative. GENITOURINARY: Negative. ALLERGIES/IMMUNOLOGY: Negative. MUSCULOSKELETAL: Significant for arthritis. PSYCHOSOCIAL: Negative. ENDOCRINE: Negative. DERMATOLOGIC: Negative. CONSTITUTIONAL: Negative. ONCOLOGICAL: Negative. HEMATOLOGICAL: Negative. The rest of the system review is not relevant. On exam, the patient is comfortable at rest. Vital signs are stable. There is no jugular venous distention. Carotid upstroke is normal. There is no bruit. Chest exam reveals good air entry bilaterally. Heart exam reveals first and second heart sounds. No gallop, no murmur, no rub. Abdomen is soft, nontender. Examination of extremities did not reveal edema. Peripheral pulses are felt. ROLL HAND exam did not reveal focal neurological deficits. Labs show a hemoglobin of 15. Potassium is 3.8. Creatinine is 0.8. Three sets of cardiac enzymes are negative. Cholesterol is low. Triglycerides are elevated. EKG does not reveal ischemic changes. Patient had a stress test done in September of this year that revealed normal myocardial perfusion and function. EKG does not reveal ischemic changes and echocardiogram was done and I reviewed the results. ASSESSMENT: 1. Precordial chest pain, atypical, probably noncardiac. 2. Hypertension. 3. Diabetes. PLAN: Given the recent negative stress test, the patient does not require further evaluation at this time. The patient has atypical pain. We should work on risk factor modification. On discharge, arrange follow up with Dr. Roc Menchaca who he was suppose to see and if patient has recurrent episodes of chest discomfort if a cardiac catheterization had not been done in the last few years we can always consider that if necessary. MURALI
[2016-12-15 11:25] VITALS: RESP 16
[2016-12-15 11:54] LABS: Glucose,Whole Blood 138 mg/dL (75-99)
[2016-12-15 12:19] LABS: Hemoglobin A1C 5.3 % (4.2-6.1)
[2016-12-15 16:09] VITALS: BP 119/65; TEMP 98
[2016-12-15 16:27] VITALS: PULSE 72
--- NOTE | 2016-12-15 20:43 | HP ---
DATE OF ADMISSION: 12/14/2016 CHIEF COMPLAINT: Chest pain. HISTORY OF ILLNESS: Mr. Burnham is a 46-year-old male with a known history of hypertension, hyperlipidemia and eos-ldbjgcw-cndvwdoue diabetes mellitus. He came to the hospital with complaints of precordial chest pain radiating to the left arm, sometimes to his epigastric region. Denied any exertional activity before that. Denied any diaphoresis, nausea, vomiting or lightheadedness along with the pain. Patient denied any fever or chills. No cough or sputum production. No difficulty in breathing with deep breathing or pain. Patient was in the hospital and patient had a cardiac workup, including serial EKGs and troponins. They showed no acute abnormalities. Cardiology saw the patient. Apparently the patient did have a cardiac workup, including a stress test and 2- D echocardiogram back in September 2016, which was negative at that time. Patient denied any other complaints. No recent illnesses. REVIEW OF SYSTEMS: CONSTITUTIONAL: No fever. No chills. No weakness or malaise. RESPIRATORY: No cough or sputum production. CARDIOVASCULAR: No chest pain or shortness of breath. ABDOMEN: No nausea, vomiting, abdominal pain. GENITOURINARY: Negative. ENDOCRINE: Negative. PSYCHIATRY: Negative. SKIN: Negative. MUSCULOSKELETAL: Negative. All other 14-point review of systems negative except as above. Past medical history includes: 1. Chest pain/angina. 2. Diabetes mellitus, kyi-cwujxlo-gmziybrrl. 3. GERD. 4. Hyperlipidemia. 5. Hypertension. 6. AK. 7. Mood disturbance. 8. Anxiety. 9. Bipolar disorder. PAST SURGICAL HISTORY: 1. Hernia repair. 2. Joint replacement. 3. Right knee arthroscopy x3. 4. Cardiac stent in 2004. 5. Stent placed in kidney for stone in 2017. SOCIAL HISTORY: Patient is currently an everyday smoker. Denied alcohol. Denied any drugs or IVDU. FAMILY HISTORY: Father had congestive heart failure, DVT and AK and pulmonary embolus. Mother has "hole in colon." Mother has cancer, COPD, diabetes mellitus , hyperlipidemia, breast and lung cancer. Sister has diabetes mellitus and bipolar, anxiety and hysterectomy. ALLERGIES include: 1. NAPROSYN. 2. CARROTS. 3. CHOCOLATE FLAVOR. 4. GRASS. 5. POLLEN. 6. MOLD. Home medications include: 1. Albuterol sulfate. 2. Metformin. 3. Atorvastatin. 4. Baclofen. 5. Qvar. 6. Singulair. 7. Venlafaxine. 8. Trazodone. 9. Depakote. 10. Gabapentin. 11. Ibuprofen. 12. Metoprolol. PHYSICAL EXAMINATION: Jripf-jvup-oohb-old male lying in bed comfortably. Awake, alert, oriented x3. He appears to be in no distress. VITALS: Blood pressure 121/60, pulse rate 70, respiration 16, temperature afebrile, pulse ox 96% on room air. HEENT: Atraumatic, normocephalic. Neck is supple. No JVD. CVS EXAM: S1, S2 heard. No murmurs. No gallop. No rub. LUNGS: Bilateral air entry is present. No wheezing. No crackles. Decreased air entry basally. Non-labored breathing. ABDOMEN: Soft, non-tender. Bowel sounds are present. GAME DEVELOPER: Awake, alert, oriented x3. No focal deficit. EXTREMITIES: No edema. Pulses palpable bilaterally. No clubbing or cyanosis. PSYCHIATRIC: Cooperative. CHEST X-RAY: Normal chest x-ray. LABORATORY DATA: WBC 5.7, hemoglobin 15.1, platelets 137. Sodium 140, potassium 3.8, chloride 110, bicarb 21. BUN 17, creatinine 0.86. Troponin x3 negative. Albumin 3.2. Triglycerides 500. IMPRESSION: 1. Atypical chest pain. Rule out acute coronary syndrome. Recent stress test negative. 2. Diabetes, type 2, rym-lkndejs-bmknknjum. HbA1c of 5.3. 3. Chronic obstructive pulmonary disease. 4. Nicotine addiction. 5. History of coronary artery disease, status post stent placement. 6. Hyperlipidemia. 7. History of renal stones. 8. Anxiety, depression and bipolar disorder. DISCUSSION AND PLAN: Patient will be continued on ( ) serial EKGs and troponins. Cardiology recommended no further workup at this time. Will follow closely and discuss discharge with negative cardiac workup. MURALI
--- NOTE | 2016-12-16 12:33 | DS ---
DATE OF ADMISSION: 12/14/2016 DATE OF DISCHARGE: 12/15/2016 DISCHARGE DIAGNOSES: 1. Atypical chest pain. Ruled out coronary artery syndrome. Recent cardiac workup negative, including stress test. 2. Anxiety, depression, bipolar disorder. 3. Diabetic neuropathy; peripheral neuropathy. 4. Hyperlipidemia. 5. Hypertension. 6. Type 2 diabetes mellitus, jyc-ikyguqi-jivknzboz. 7. History of coronary artery disease, stent placement. 8. Renal stones with stent placement. HOSPITAL COURSE: Mr. Burnham is a 46-year-old male, admitted to the hospital with complaints of chest pain. Patient was monitored on telemetry. Serial EKGs and troponins were negative. Patient had negative cardiac workup done, including stress test which was negative and a normal 2-D echocardiogram with normal ejection fraction in September 2016. Cardiology saw the patient. Serial EKGs and troponins are negative. Patient's chest pain has resolved now. Cardiology recommended no further workup and will continue the current management. Patient is being discharged home in stable condition. DISCHARGE PHYSICAL EXAMINATION: Maxlg-nexg-xzcq-old male lying in bed comfortably. Awake, alert, oriented x3. No apparent distress. VITALS: Blood pressure is 119/65, pulse rate 80, respiratory rate 16, temperature afebrile, pulse ox 96% on room air. Laboratory data reviewed. Discharge physical examination done. DISCHARGE MEDICATIONS INCLUDE: 1. Albuterol HFA 2 puffs q.6 hourly p.r.n. 2. Metformin 500 mg p.o. daily. 3. Atorvastatin 40 mg p.o. daily. 4. Baclofen 10 mg p.o. t.i.d. 5. Qvar 2 puffs inhalation b.i.d. 6. Singulair 10 mg p.o. at bedtime. 7. Effexor 150 mg p.o. at bedtime. 8. Trazodone 150 mg p.o. at bedtime. 9. Depakote 500 mg p.o. t.i.d. 10. Gabapentin 300 mg p.o. t.i.d. 11. Metoprolol 25 mg p.o. at bedtime. Patient will be discharged home in stable condition. Activity as tolerated. Heart-healthy diet. Follow up with Dr. Roc Menchaca in one week. Follow up with Dr. Walsh in 1 to 2 days. Home with self-care. [facility]
== END 2016-12-15 17:21 | disposition home or self-care (01) ==
LOC: EC 18:28 → 3OBS 20:54
PROVIDERS: ADMIT Hospitalist; ATTEND Hospitalist
DX: R07.89 Other chest pain (principal); E11.40 Type 2 diabetes mellitus with diabetic neuropathy, unspecified; G62.9 Polyneuropathy, unspecified; J44.9 Chronic obstructive pulmonary disease, unspecified; F17.200 Nicotine dependence, unspecified, uncomplicated; I25.10 Atherosclerotic heart disease of native coronary artery without angina pectoris; Z95.5 Presence of coronary angioplasty implant and graft; E78.5 Hyperlipidemia, unspecified; Z87.442 Personal history of urinary calculi; F41.9 Anxiety disorder, unspecified; F31.9 Bipolar disorder, unspecified; Z79.84 Long term (current) use of oral hypoglycemic drugs; Z79.899 Other long term (current) drug therapy; I25.2 Old myocardial infarction; I10 Essential (primary) hypertension; Z79.1 Long term (current) use of non-steroidal anti-inflammatories (NSAID); Z88.8 Allergy status to other drugs, medicaments and biological substances; Z91.018 Allergy to other foods; K21.9 Gastro-esophageal reflux disease without esophagitis
CPT/HCPCS: 99285; 36415; 94640 ×2; 94760; 93005; 80061; 80053; 83036; 82550 ×2; 82553 ×2; 83735; 84484 ×2; 85025; 85610; 85730; 71020; G0378 ×2; 96361; 96375; 96376

== ENCOUNTER 2017-01-22 17:25 | Emergency (ER) | payer MEDICARE, OTHER ==
[2017-01-22 17:28] VITALS: TEMP 98
[2017-01-22] MEDS ORDERED: ONDANSETRON 4 MG/2 ML VIAL IVP STA (17:46)
[2017-01-22] MEDS ORDERED: SODIUM CHLORIDE 0.9% 500 ML IV STA (17:46)
[2017-01-22] MEDS ORDERED: FAMOTIDINE 20 MG/2 ML VIAL IV STA (17:47)
[2017-01-22] MEDS ORDERED: DICYCLOMINE 20 MG TAB PO STA (17:47)
--- NOTE | 2017-01-22 17:49 | ED ---
Abdominal Pain HPI - General Chief Complaint: Abdominal Pain Stated Complaint: Abdominal pain Time Seen by Provider: 01/22/17 17:44 Source: patient, RN notes reviewed Mode of arrival: ambulatory Limitations: no limitations - History of Present Illness Initial Comments: 46-year-old male presents emergency Department chief complaint of abdominal pain. Patient states the pain starts in his upper abdomen radiates to his lower abdomen. Patient states he has not had any vomiting, diarrhea, constipation, dysuria, hematuria. He states nothing makes pain feel better or worse. Though he states has not tried any medications. Patient has had a prior abdominal hernia repair. Patient states that he does not know of any hernia at this time. Denies any back pain or flank pain denies chest pain or shortness of breath. - Related Data Home Medications Medication Instructions Recorded Confirmed Albuterol Sulfate [Ventolin HFA] 2 puff INHALATION RT-Q6H PRN 06/10/14 12/14/16 metFORMIN HCL [Glucophage] 500 mg PO DAILY@199906/10/14 12/14/16 Atorvastatin [Lipitor] 40 mg PO DAILY@199901/05/15 12/14/16 Baclofen 10 mg PO TID 06/01/16 12/14/16 Beclomethasone Dipropionate [Qvar 2 puff INHALATION RT-BID 06/01/16 12/14/16 80 mcg] Montelukast Sodium [Singulair] 10 mg PO 06/01/16 12/14/16 Venlafaxine HCl ER [Effexor XR] 150 mg PO 09/27/16 12/14/16 traZODone HCL 150 mg PO 09/27/16 12/14/16 Divalproex Sodium [Depakote] 500 mg PO TID 12/08/16 12/14/16 Gabapentin [Neurontin] 300 mg PO TID 12/08/16 12/14/16 Metoprolol Tartrate [Lopressor] 25 mg PO 12/08/16 12/14/16 Allergies Allergy/AdvReac Type Severity Reaction Status Date / Time naproxen [From Naprosyn] Allergy Unknown Rash/Hives Verified 01/22/17 17:28 carrot Allergy Dyspnea Verified 01/22/17 17:28 chocolate flavor Allergy Dyspnea Verified 01/22/17 17:28 grass pollen-perennial rye, Allergy Dyspnea Verified 01/22/17 17:28 standar ibuprofen Allergy Itching Verified 01/22/17 17:28 mold Allergy Unknown Verified 01/22/17 17:28 Review of Systems ROS Statement: Those systems with pertinent positive or pertinent negative responses have been documented in the HPI. ROS Other: All systems not noted in ROS Statement are negative. Past Medical History Past Medical History: Chest Pain / Angina, Diabetes Mellitus, GERD/Reflux, Hyperlipidemia, Hypertension, Myocardial Infarction ([place]) Additional Past Medical History / Comment(s): chronic back pain, herniated discs in the neck and the back. mood disturbance. Last Myocardial Infarction Date:: 2004 History of Any Multi-Drug Resistant Organisms: None Reported Past Surgical History: Hernia Repair, Joint Replacement Additional Past Surgical History / Comment(s): rt knee arthroscopy x3, lt knee arthroscopy last date 2012,total knee replacement rt knee; cardiac stent x1 2004 , stent placed for kidney stone 07/04/2016. Kidney stent has been removed. Past Anesthesia/Blood Transfusion Reactions: No Reported Reaction Date of Last Stent Placement:: 2004 Past Psychological History: Anxiety, Bipolar, Depression Smoking Status: Current every day smoker Past Alcohol Use History: None Reported Past Drug Use History: None Reported - Past Family History Father Family Medical History: Congestive Heart Failure (CHF), Deep Vein Thrombosis ( DVT), Myocardial Infarction ([place]), Pulmonary Embolus Additional Family Medical History / Comment(s): [place] at age 38. "hole in colon" Mother Family Medical History: Cancer, COPD, Diabetes Mellitus, Hyperlipidemia Additional Family Medical History / Comment(s): breast and lung cancer Sister(s) Family Medical History: Diabetes Mellitus Additional Family Medical History / Comment(s): bi-polar, anxiety. hysterectomy Brother(s) History Unknown: Yes General Exam Limitations: no limitations General appearance: alert, in no apparent distress Neck exam: Present: normal inspection. Absent: tenderness, meningismus, lymphadenopathy Respiratory exam: Present: normal lung sounds bilaterally. Absent: respiratory distress, wheezes, rales, rhonchi, stridor Cardiovascular Exam: Present: regular rate, normal rhythm, normal heart sounds. Absent: systolic murmur, diastolic murmur, rubs, gallop, clicks GI/Abdominal exam: Present: soft, tenderness (Mild diffuse), normal bowel sounds. Absent: distended, guarding, rebound, rigid Back exam: Absent: CVA tenderness (R), CVA tenderness (L) Skin exam: Present: warm, dry, intact, normal color. Absent: rash Course Vital Signs 01/22/17 17:26 Temperature 98.0 F Pulse Rate 91 Respiratory 18 Rate Blood Pressure 140/74 O2 Sat by Pulse 97 Oximetry Medical Decision Making - Medical Decision Making 45-year-old male presented for abdominal pain. Patient's lab work, x-ray were ordered and reviewed. Patient is up-to-date on lab results which showed no acute abnormality. Patient does show moderate amount of retained fecal material. Patient is currently constipated. Patient states that he's had problems with some the past. Patient will take occasions ndxz-blb-qacjoij pain which she has at home currently. We discussed return parameters. - Lab Data Result diagrams: 01/22/17 17:55 01/22/17 17:55 Lab Results 01/22/17 01/22/17 01/22/17 Range/Units 17:55 17:55 17:55 WBC 5.2 (3.8-10.6) k/uL RBC 4.77 (4.30-5.90) m/uL Hgb 15.1 (13.0-17.5) gm/dL Hct 43.4 (39.0-53.0) % MCV 90.9 (80.0-100.0) fL MCH 31.6 (25.0-35.0) pg MCHC 34.7 (31.0-37.0) g/dL RDW 14.4 (11.5-15.5) % Plt Count 211 (150-450) k/uL Neutrophils % 58 % Lymphocytes % 31 % Monocytes % 6 % Eosinophils % 2 % Basophils % 1 % Neutrophils # 3.0 (1.3-7.7) k/uL Lymphocytes # 1.6 (1.0-4.8) k/uL Monocytes # 0.3 (0-1.0) k/uL Eosinophils # 0.1 (0-0.7) k/uL Basophils # 0.0 (0-0.2) k/uL Sodium 141 (137-145) mmol/L Potassium 3.8 (3.5-5.1) mmol/L Chloride 105 (98-107) mmol/L Carbon Dioxide 27 (22-30) mmol/L Anion Gap 9 mmol/L BUN 11 (9-20) mg/dL Creatinine 0.87 (0.66-1.25) mg/dL Est GFR (MDRD) Af Amer >60 (>60 ml/min/1.73 sqM) Est GFR (MDRD) Non-Af >60 (>60 ml/min/1.73 sqM) Glucose 114 H (74-99) mg/dL Calcium 9.3 (8.4-10.2) mg/dL Total Bilirubin 0.4 (0.2-1.3) mg/dL AST 19 (17-59) U/L ALT 23 (21-72) U/L Alkaline Phosphatase 63 (38-126) U/L Total Protein 6.2 L (6.3-8.2) g/dL Albumin 4.0 (3.5-5.0) g/dL Amylase 35 (30-110) U/L Lipase 77 (23-300) U/L Urine Color Yellow Urine Appearance Cloudy (Clear) Urine pH 6.0 (5.0-8.0) Ur Specific [place] 1.014 (1.001-1.035) Urine Protein Negative (Negative) Urine Glucose (UA) 2+ H (Negative) Urine Ketones Negative (Negative) Urine Blood Negative (Negative) Urine Nitrite Negative (Negative) Urine Bilirubin Negative (Negative) Urine Urobilinogen <2.0 (<2.0) mg/dL Ur Leukocyte Esterase Negative (Negative) Urine WBC 1 (0-5) /hpf Ur Squamous Epith Cells <1 (0-4) /hpf Amorphous Sediment Few H (None) /hpf Urine Bacteria Rare H (None) /hpf Urine Mucus Rare H (None) /hpf Disposition Clinical Impression: Constipation, Abdominal pain Disposition: HOME SELF-CARE Condition: Stable Instructions: Abdominal Pain (ED) Additional Instructions: Please return to the Emergency Department if symptoms worsen or any other concerns. Referrals: Mine Walsh MD [Primary Care Provider] - 1-2 days Time of Disposition: 18:51
[2017-01-22 18:15] LABS: Basophils % (A) 1 %; CH 32.9; CHCM 36.3; Eosinophils # (A) 0.1 k/uL (0-0.7); Eosinophils % (A) 2 %; HCT 43.4 % (39.0-53.0); HDW 2.91; HGB 15.1 gm/dL (13.0-17.5); Luc % (Auto) 2; Lymphocytes # (A) 1.6 k/uL (1.0-4.8); Lymphocytes % (A) 31 %; MCH 31.6 pg (25.0-35.0); MCHC 34.7 g/dL (31.0-37.0); MCV 90.9 fL (80.0-100.0); Mean Platelet Volume 7.5; Monocytes # (A) 0.3 k/uL (0-1.0); Monocytes % (A) 6 %; Neutrophils % (A) 58 %; RBC 4.77 m/uL (4.30-5.90); RDW 14.4 % (11.5-15.5); WBC 5.2 k/uL (3.8-10.6); WBC (Perox) 4.98
[2017-01-22 18:16] LABS: Amorphous Sediment,Urine Few /hpf; Appearance,Urine Cloudy (Clear); Bacteria,Urine Rare /hpf; Bilirubin,Urine Negative (Negative); Glucose,Urine (UA) 2+ (Negative); Ketones,Urine Negative (Negative); Leukocyte Esterase,Urine Negative (Negative); Mucus,Urine Rare /hpf; Nitrite,Urine Negative (Negative); Particle Count 6627; Protein,Urine Negative (Negative); Specific Gravity,Urine 1.014 (1.001-1.035); Squamous Epithelial Cell,Urine <1 /hpf (0-4); UA Billing (MACRO vs. MICRO) MICRO; Urobilinogen,Urine <2.0 mg/dL (<2.0); WBC,Urine 1 /hpf (0-5)
[2017-01-22 18:28] LABS: ALT 23 U/L (21-72); AST 19 U/L (17-59); Alkaline Phosphatase 63 U/L (38-126); Amylase 35 U/L (30-110); Anion Gap 9 mmol/L; Blood Urea Nitrogen 11 mg/dL (9-20); Calcium 9.3 mg/dL (8.4-10.2); Carbon Dioxide 27 mmol/L (22-30); Chloride 105 mmol/L (98-107); Glucose 114 mg/dL (74-99); Non-African American GFR(MDRD) >60 (>60 ml/min/1.73 sqM); Potassium 3.8 mmol/L (3.5-5.1); Sodium 141 mmol/L (137-145); Total Bilirubin 0.4 mg/dL (0.2-1.3); Total Protein 6.2 g/dL (6.3-8.2)
--- NOTE | 2017-01-22 18:41 | XR ---
EXAMINATION TYPE: XR KUB DATE OF EXAM: 01/22/2017 COMPARISON: 10/28/2016 HISTORY: Abdominal pain TECHNIQUE: 2 views FINDINGS: There is no sign of intestinal obstruction or pneumoperitoneum. Fecal pattern is normal. Th ere is no evidence of a mass. There are no pathologic calcifications over the kidneys. IMPRESSION: Nonacute abdomen. No change.
[2017-01-22 18:59] VITALS: BP 109/54; PULSE 72; RESP 16
== END 2017-01-22 19:03 | disposition home or self-care (01) ==
LOC: EC 17:25
DX: K59.00 Constipation, unspecified (principal); E78.5 Hyperlipidemia, unspecified; I10 Essential (primary) hypertension; E11.9 Type 2 diabetes mellitus without complications; F32.9 Major depressive disorder, single episode, unspecified; F41.9 Anxiety disorder, unspecified; I25.2 Old myocardial infarction; F17.200 Nicotine dependence, unspecified, uncomplicated; Z79.51 Long term (current) use of inhaled steroids; Z79.84 Long term (current) use of oral hypoglycemic drugs; Z79.899 Other long term (current) drug therapy; Z88.6 Allergy status to analgesic agent; Z91.018 Allergy to other foods; Z91.09 Other allergy status, other than to drugs and biological substances; Z86.79 Personal history of other diseases of the circulatory system
CPT/HCPCS: 99284; 96374; 96375; 36415; 80053; 82150; 83690; 85025; 81001; 74000; J2405

== ENCOUNTER → 2017-02-27 | Outpatient (CLI) | payer MEDICARE, OTHER ==
--- NOTE | 2017-02-27 22:27 | MR ---
EXAMINATION TYPE: MR brain wo/w con DATE OF EXAM: 02/27/2017 COMPARISON: Prior MRI brain February 21, 2013 HISTORY: Migraine headaches. TECHNIQUE: Multiplanar, multisequence images of the brain and brainstem is performed without and with IV contras t, utilizing 13.5 mL intravenous Gadavist . FINDINGS: Diffusion weighted images demonstrate no evidence of a recent infarct or other diffusion ab normality. There is no extra-axial fluid collection or significant white matter signal abnormality. The ventricular system and cisternal spaces are normal in size and appearance. The brain volume is age appropriate. Midline structures demonstrate somewhat empty sella similar to prior. The craniocervical junction nedra ears within normal limits. Post contrast images demonstrate no abnormal enhancement. The dural venou s sinuses appear patent. The visualized sinuses are clear and the globes are intact. IMPRESSION: No suspicious finding is seen to account for patient's symptoms.
== END | disposition home or self-care (01) ==
LOC: RADMRIMAIN 17:55
PROVIDERS: ATTEND Psychiatry & Neurology Neurology
DX: H81.93 Unspecified disorder of vestibular function, bilateral (principal); M51.27 Other intervertebral disc displacement, lumbosacral region; M48.02 Spinal stenosis, cervical region; R20.2 Paresthesia of skin
CPT/HCPCS: 70553; A9581

== ENCOUNTER 2017-04-15 12:16 | Emergency (ER) | payer MEDICARE, OTHER ==
[2017-04-15 12:44] VITALS: TEMP 98.7
[2017-04-15] MEDS ORDERED: Acetaminophen-Codeine 300-30mg TAB PO STA (13:03)
[2017-04-15] MEDS ORDERED: DIPH,PERTUS(ACELL)TETVAC-LF 0.5 ML VIAL IM ONE (13:03)
--- NOTE | 2017-04-15 13:23 | XR ---
EXAMINATION TYPE: XR finger LT , 3 VIEWS DATE OF EXAM ORDERED: 04/15/2017 HISTORY: Pain. COMPARISON: None. FINDINGS: There is metallic staple superimposed over the distal phalanx of the left thumb. I am unab le to ascertain from the views provided whether this penetrates the distal phalanx of the thumb. I do not see a definite fracture. IMPRESSION: STABLE SUPERIMPOSED OVER THE DISTAL PHALANX OF THE LEFT THUMB. I SEE NO DEFINITE FRACTURE. REPEAT EXA MINATION FOLLOWING REMOVAL OF THE STAPLE WOULD BE SUGGESTED.
--- NOTE | 2017-04-15 13:59 | ED ---
Upper Extremity HPI - General Chief Complaint: Extremity Injury, Upper Stated Complaint: Staple in Thumb Time Seen by Provider: 04/15/17 12:56 Source: patient Mode of arrival: ambulatory Limitations: no limitations - History of Present Illness Initial Comments: 46-year-old nail patient percents to the emergency department today for evaluation after accidentally shooting a staple into the palmar aspect of his left thumb. Patient denies any numbness or tingling to the thumb. States he does have full range of motion at this time. Patient states that it appears to have injured his nail. Patient is unsure when his last tetanus vaccine was. Patient denies any headache, neck pain, back pain, chest pain, shortness of breath, dizziness, weakness, abdominal pain, nausea, vomiting, or difficulties with bowel movements or urination. - Related Data Home Medications Medication Instructions Recorded Confirmed Albuterol Sulfate [Ventolin HFA] 2 puff INHALATION RT-Q6H PRN 06/10/14 04/15/17 metFORMIN HCL [Glucophage] 500 mg PO DAILY@199906/10/14 04/15/17 Atorvastatin [Lipitor] 40 mg PO DAILY@199901/05/15 04/15/17 Baclofen 10 mg PO TID 06/01/16 04/15/17 Beclomethasone Dipropionate [Qvar 2 puff INHALATION RT-BID 06/01/16 04/15/17 80 mcg] Montelukast Sodium [Singulair] 10 mg PO HS 06/01/16 04/15/17 Venlafaxine HCl ER [Effexor XR] 150 mg PO HS 09/27/16 04/15/17 traZODone HCL 150 mg PO HS 09/27/16 04/15/17 Divalproex Sodium [Depakote] 500 mg PO TID 12/08/16 04/15/17 Gabapentin [Neurontin] 300 mg PO TID 12/08/16 04/15/17 Metoprolol Tartrate [Lopressor] 25 mg PO HS 12/08/16 04/15/17 Previous Rx's Medication Instructions Recorded Acetaminophen-Codeine 300-30mg 1 tab PO Q6H PRN #15 tablet 04/15/17 [Tylenol #3] Cephalexin [Keflex] 500 mg PO Q6HR #20 cap 04/15/17 Allergies Allergy/AdvReac Type Severity Reaction Status Date / Time naproxen [From Naprosyn] Allergy Unknown Rash/Hives Verified 04/15/17 12:59 carrot Allergy Dyspnea Verified 04/15/17 12:59 chocolate flavor Allergy Dyspnea Verified 04/15/17 12:59 grass pollen-perennial rye, Allergy Dyspnea Verified 04/15/17 12:59 standar ibuprofen Allergy Itching Verified 04/15/17 12:59 mold Allergy Unknown Verified 04/15/17 12:59 Review of Systems ROS Statement: Those systems with pertinent positive or pertinent negative responses have been documented in the HPI. ROS Other: All systems not noted in ROS Statement are negative. Past Medical History Past Medical History: Chest Pain / Angina, Diabetes Mellitus, GERD/Reflux, Hyperlipidemia, Hypertension, Myocardial Infarction ([place]) Additional Past Medical History / Comment(s): chronic back pain, herniated discs in the neck and the back. mood disturbance. Last Myocardial Infarction Date:: 2004 History of Any Multi-Drug Resistant Organisms: None Reported Past Surgical History: Hernia Repair, Joint Replacement Additional Past Surgical History / Comment(s): rt knee arthroscopy x3, lt knee arthroscopy last date 2012,total knee replacement rt knee; cardiac stent x1 2004 , stent placed for kidney stone 07/04/2016. Kidney stent has been removed. Past Anesthesia/Blood Transfusion Reactions: No Reported Reaction Date of Last Stent Placement:: 2004 Past Psychological History: Anxiety, Bipolar, Depression Smoking Status: Current every day smoker Past Alcohol Use History: Rare Past Drug Use History: None Reported - Past Family History Father Family Medical History: Congestive Heart Failure (CHF), Deep Vein Thrombosis ( DVT), Myocardial Infarction ([place]), Pulmonary Embolus Additional Family Medical History / Comment(s): [place] at age 38. "hole in colon" Mother Family Medical History: Cancer, COPD, Diabetes Mellitus, Hyperlipidemia Additional Family Medical History / Comment(s): breast and lung cancer Sister(s) Family Medical History: Diabetes Mellitus Additional Family Medical History / Comment(s): bi-polar, anxiety. hysterectomy Brother(s) History Unknown: Yes General Exam Limitations: no limitations General appearance: alert, in no apparent distress, other (this is a well- developed, well-nourished adult male patient in no acute distress. Vital signs upon presentation were temperature 98.7F, pulse 83, respirations 17, blood pressure 126/80, pulse ox 99% on room air.) Respiratory exam: Present: normal lung sounds bilaterally. Absent: respiratory distress, wheezes, rales, rhonchi, stridor Cardiovascular Exam: Present: regular rate, normal rhythm, normal heart sounds. Absent: systolic murmur, diastolic murmur, rubs, gallop, clicks Extremities exam: Present: full ROM, tenderness (tenderness over the distal left thumb.), normal capillary refill, other (there is a staple embedded into the palmar aspect of the left thumb, the staple does appear to about the center of the nail bed, patient does have a puncture to the lateral nail fold.skin to the finger is otherwise pink, warm, and dry. Cap refills less than 3 seconds. Radial pulse is 2+.). Absent: pedal edema, joint swelling, calf tenderness Neurological exam: Present: alert, oriented X3, CN II-XII intact Psychiatric exam: Present: normal affect, normal mood Skin exam: Present: warm, dry, intact, normal color. Absent: rash Course Vital Signs 04/15/17 12:42 Temperature 98.7 F Pulse Rate 83 Respiratory 17 Rate Blood Pressure 126/80 O2 Sat by Pulse 99 Oximetry Medical Decision Making - Medical Decision Making 46-year-old male patient presented to the emergency department today for evaluation after axillae stapling his left thumb. Physical examination did reveal that the staple abutted the nail, and he did have a puncture through the lateral nail fold. X-ray did reveal that the staple protruding through the bone. Staple was removed, repeat x-ray was performed and showed no acute fracture. Patient will be discharged home at this time with a prescription for Tylenol 3 with codeine as well as Keflex. He was updated on his tetanus vaccine. He is instructed to follow-up with his primary care physician for recheck in 1-2 days. He was educated regarding signs or symptoms of infection. He is instructed to return here immediately for any new, worsening, or concerning symptoms. He verbalizes understanding and agrees with this plan. - Radiology Data Radiology results: report reviewed 3 views of the left finger were obtained and showed a metallic staple superimposed over the distal phalanx of the left thumb. I'm unable to ascertain from the views provider whether this penetrates the distal phalanx of the thumb. I do not see a definite fracture. Impression by Dr. Steiner shows staple superimposed over the distal phalanx of the left thumb. I see no definite fracture. Repeat examination following removal of the staple would be suggested. 3 views of the left thumb show no fracture nor dislocation. Joint spaces are normal. There has been removal of staple foreign body. Impression by Dr. Chambers shows normal left thumb. Disposition Clinical Impression: Foreign body of thumb, left Disposition: HOME SELF-CARE Condition: Good Instructions: Soft Tissue Foreign Body (ED), Thumb Fracture (ED) Additional Instructions: ice and elevate the thumb. Take medications as directed. Follow-up with her primary care physician for recheck in 1-2 days. Return here immediately for any new, worsening, or concerning symptoms. Prescriptions: Acetaminophen-Codeine 300-30mg [Tylenol #3] 1 tab PO Q6H PRN #15 tablet PRN Reason: Pain Cephalexin [Keflex] 500 mg PO Q6HR #20 cap Referrals: Mine Walsh MD [Primary Care Provider] - 1-2 days
--- NOTE | 2017-04-15 14:19 | XR ---
EXAMINATION TYPE: XR finger LT DATE OF EXAM: 04/15/2017 COMPARISON: Today HISTORY: Post foreign body removal TECHNIQUE: 3 views FINDINGS: I see no fracture nor dislocation. Joint spaces are normal. There has been removal of the s taple foreign body. IMPRESSION: Normal left thumb.
[2017-04-15 14:47] VITALS: BP 127/78; PULSE 98; RESP 18
== END 2017-04-15 14:45 | disposition home or self-care (01) ==
LOC: EC 12:16
DX: S60.352A Superficial foreign body of left thumb, initial encounter (principal); E11.9 Type 2 diabetes mellitus without complications; E78.5 Hyperlipidemia, unspecified; I10 Essential (primary) hypertension; I25.2 Old myocardial infarction; F41.9 Anxiety disorder, unspecified; F32.9 Major depressive disorder, single episode, unspecified; F17.200 Nicotine dependence, unspecified, uncomplicated; Z79.51 Long term (current) use of inhaled steroids; Z79.84 Long term (current) use of oral hypoglycemic drugs; Z79.899 Other long term (current) drug therapy; Z88.6 Allergy status to analgesic agent; Z91.018 Allergy to other foods; Z91.048 Other nonmedicinal substance allergy status; Z23 Encounter for immunization; W45.8XXA Other foreign body or object entering through skin, initial encounter
CPT/HCPCS: 90471; 90715; 99283

== ENCOUNTER 2017-04-18 18:48 | Emergency (ER) | payer MEDICARE, OTHER ==
--- NOTE | 2017-04-18 19:09 | ED ---
General Adult HPI - General Source: patient, RN notes reviewed, old records reviewed Mode of arrival: EMS Limitations: no limitations <Sami Lucio - Last Filed: 04/18/17 20:43> <Jose Enriquez - Last Filed: 04/18/17 22:41> - General Chief complaint: Chest Pain Stated complaint: chest pain Time Seen by Provider: 04/18/17 18:57 - History of Present Illness Initial comments: This is a 46-year-old male to the ER for evaluation. Patient is safe for evaluation rates chest pain. Patient has significant history of chest pain. Multiple hospitalizations for chest family states are related to anxiety. Patient has history of diabetes high blood pressure high cholesterol. Patient states he was recently in the hospital for chest pain have stress test. No prior history of heart catheterizations. At this point patient states his chest pain is resolved. No shortness of breath. No other complaints (Sami Lucio) - Related Data Home Medications Medication Instructions Recorded Confirmed Albuterol Sulfate [Ventolin HFA] 2 puff INHALATION RT-Q6H PRN 06/10/14 04/18/17 metFORMIN HCL [Glucophage] 500 mg PO DAILY@199906/10/14 04/18/17 Atorvastatin [Lipitor] 40 mg PO DAILY@199901/05/15 04/18/17 Baclofen 10 mg PO TID 06/01/16 04/18/17 Beclomethasone Dipropionate [Qvar 2 puff INHALATION RT-BID 06/01/16 04/18/17 80 mcg] Montelukast Sodium [Singulair] 10 mg PO HS 06/01/16 04/18/17 Venlafaxine HCl ER [Effexor XR] 150 mg PO HS 09/27/16 04/18/17 traZODone HCL 150 mg PO HS 09/27/16 04/18/17 Divalproex Sodium [Depakote] 500 mg PO TID 12/08/16 04/18/17 Gabapentin [Neurontin] 300 mg PO TID 12/08/16 04/18/17 Metoprolol Tartrate [Lopressor] 25 mg PO HS 12/08/16 04/18/17 Previous Rx's Medication Instructions Recorded Acetaminophen-Codeine 300-30mg 1 tab PO Q6H PRN #15 tablet 04/15/17 [Tylenol #3] Cephalexin [Keflex] 500 mg PO Q6HR #20 cap 04/15/17 Allergies Allergy/AdvReac Type Severity Reaction Status Date / Time naproxen [From Naprosyn] Allergy Unknown Rash/Hives Verified 04/18/17 19:12 carrot Allergy Dyspnea Verified 04/18/17 19:12 chocolate flavor Allergy Dyspnea Verified 04/18/17 19:12 grass pollen-perennial rye, Allergy Dyspnea Verified 04/18/17 19:12 standar ibuprofen Allergy Itching Verified 04/18/17 19:12 mold Allergy Unknown Verified 04/18/17 19:12 Review of Systems ROS Other: All systems not noted in ROS Statement are negative. <Sami Lucio - Last Filed: 04/18/17 20:43> ROS Other: All systems not noted in ROS Statement are negative. <Jose Enriquez - Last Filed: 04/18/17 22:41> ROS Statement: Those systems with pertinent positive or pertinent negative responses have been documented in the HPI. Past Medical History Past Medical History: Chest Pain / Angina, Diabetes Mellitus, GERD/Reflux, Hyperlipidemia, Hypertension, Myocardial Infarction ([place]) Additional Past Medical History / Comment(s): chronic back pain, herniated discs in the neck and the back. mood disturbance. Last Myocardial Infarction Date:: 2004 History of Any Multi-Drug Resistant Organisms: None Reported Past Surgical History: Hernia Repair, Joint Replacement Additional Past Surgical History / Comment(s): rt knee arthroscopy x3, lt knee arthroscopy last date 2012,total knee replacement rt knee; cardiac stent x1 2004 , stent placed for kidney stone 07/04/2016. Kidney stent has been removed. Past Anesthesia/Blood Transfusion Reactions: No Reported Reaction Date of Last Stent Placement:: 2004 Past Psychological History: Anxiety, Bipolar, Depression Smoking Status: Current every day smoker Past Alcohol Use History: Rare Past Drug Use History: None Reported - Past Family History Father Family Medical History: Congestive Heart Failure (CHF), Deep Vein Thrombosis ( DVT), Myocardial Infarction ([place]), Pulmonary Embolus Additional Family Medical History / Comment(s): [place] at age 38. "hole in colon" Mother Family Medical History: Cancer, COPD, Diabetes Mellitus, Hyperlipidemia Additional Family Medical History / Comment(s): breast and lung cancer Sister(s) Family Medical History: Diabetes Mellitus Additional Family Medical History / Comment(s): bi-polar, anxiety. hysterectomy Brother(s) History Unknown: Yes <Sami Lucio - Last Filed: 04/18/17 20:43> General Exam Limitations: no limitations General appearance: alert, in no apparent distress Head exam: Present: atraumatic, normocephalic, normal inspection Eye exam: Present: normal appearance, PERRL, EOMI. Absent: scleral icterus, conjunctival injection, periorbital swelling ENT exam: Present: normal exam, mucous membranes moist Neck exam: Present: normal inspection. Absent: tenderness, meningismus, lymphadenopathy Respiratory exam: Present: normal lung sounds bilaterally. Absent: respiratory distress, wheezes, rales, rhonchi, stridor Cardiovascular Exam: Present: regular rate, normal rhythm, normal heart sounds. Absent: systolic murmur, diastolic murmur, rubs, gallop, clicks GI/Abdominal exam: Present: soft, normal bowel sounds. Absent: distended, tenderness, guarding, rebound, rigid Extremities exam: Present: normal inspection, full ROM, normal capillary refill. Absent: tenderness, pedal edema, joint swelling, calf tenderness Back exam: Present: normal inspection Neurological exam: Present: alert, oriented X3, CN II-XII intact Psychiatric exam: Present: normal affect, normal mood Skin exam: Present: warm, dry, intact, normal color. Absent: rash <Sami Lucio - Last Filed: 04/18/17 20:43> Course <Sami Lucio - Last Filed: 04/18/17 20:43> <Jose Enriquez - Last Filed: 04/18/17 22:41> Vital Signs 04/18/17 04/18/17 04/18/17 18:54 20:10 20:55 Temperature 98.4 F Pulse Rate 87 76 77 Respiratory 15 18 18 Rate Blood Pressure 123/68 119/77 116/70 O2 Sat by Pulse 96 99 96 Oximetry 04/18/17 04/18/17 21:25 21:54 Temperature Pulse Rate 79 71 Respiratory 18 18 Rate Blood Pressure 112/67 119/82 O2 Sat by Pulse 98 98 Oximetry - Reevaluation(s) Reevaluation #1: 04/18/17 20:44 Patient is without complaint, asymptomatic, no pain currently 04/18/17 20:45 Patient's medical records and prior ER visits are reviewed including prior stress test and cardiac observations (Sami Lucio) Reevaluation #2: 04/18/17 20:44 Patient refusing any symptoms or complaints, denying needing any anxiolysis ( Sami Lucio) EKG Findings - EKG Comments: EKG Findings:: EKG shows normal sinus rhythm rate of 88, AK 174, QRS 68, QTc 460 <Sami Lucio - Last Filed: 04/18/17 20:43> Medical Decision Making - Lab Data Result diagrams: 04/18/17 19:08 04/18/17 19:08 - Radiology Data Radiology results: report reviewed (Chest x-ray is negative for acute disease), image reviewed <Sami Lucio - Last Filed: 04/18/17 20:43> - Lab Data Result diagrams: 04/18/17 19:08 04/18/17 19:08 <Jose Enriquez - Last Filed: 04/18/17 22:41> - Medical Decision Making 46 year for evaluation of chest pain. Troponin negative 2. Medical records reviewed including prior stress test. Patient's no anxiety at this time, no chest pain and can be discharged home (Sami Lucio) - Lab Data Lab Results 04/18/17 04/18/17 04/18/17 Range/Units 19:08 19:08 19:08 WBC 5.1 (3.8-10.6) k/uL RBC 5.00 (4.30-5.90) m/uL Hgb 15.8 (13.0-17.5) gm/dL Hct 43.0 (39.0-53.0) % MCV 86.0 (80.0-100.0) fL MCH 31.7 (25.0-35.0) pg MCHC 36.8 (31.0-37.0) g/dL RDW 12.6 (11.5-15.5) % Plt Count 190 (150-450) k/uL Neutrophils % 55 % Lymphocytes % 34 % Monocytes % 6 % Eosinophils % 2 % Basophils % 1 % Neutrophils # 2.8 (1.3-7.7) k/uL Lymphocytes # 1.8 (1.0-4.8) k/uL Monocytes # 0.3 (0-1.0) k/uL Eosinophils # 0.1 (0-0.7) k/uL Basophils # 0.0 (0-0.2) k/uL Hyperchromasia Slight PT (9.0-12.0) sec INR (<1.2) APTT (22.0-30.0) sec Sodium 139 (137-145) mmol/L Potassium 3.8 (3.5-5.1) mmol/L Chloride 107 (98-107) mmol/L Carbon Dioxide 22 (22-30) mmol/L Anion Gap 10 mmol/L BUN 11 (9-20) mg/dL Creatinine 0.80 (0.66-1.25) mg/dL Est GFR (MDRD) Af Amer >60 (>60 ml/min/1.73 sqM) Est GFR (MDRD) Non-Af >60 (>60 ml/min/1.73 sqM) Glucose 95 (74-99) mg/dL Calcium 9.4 (8.4-10.2) mg/dL Magnesium 2.1 (1.6-2.3) mg/dL Total Bilirubin 0.4 (0.2-1.3) mg/dL AST 29 (17-59) U/L ALT 69 (21-72) U/L Alkaline Phosphatase 71 (38-126) U/L Total Creatine Kinase 39 L (55-170) U/L CK-MB (CK-2) 0.8 (0.0-2.4) ng/mL CK-MB (CK-2) Rel Index 2.1 Troponin I <0.012 (0.000-0.034) ng/mL Total Protein 6.2 L (6.3-8.2) g/dL Albumin 4.0 (3.5-5.0) g/dL Lipase 81 (23-300) U/L 04/18/17 04/18/17 Range/Units 19:08 21:57 WBC (3.8-10.6) k/uL RBC (4.30-5.90) m/uL Hgb (13.0-17.5) gm/dL Hct (39.0-53.0) % MCV (80.0-100.0) fL MCH (25.0-35.0) pg MCHC (31.0-37.0) g/dL RDW (11.5-15.5) % Plt Count (150-450) k/uL Neutrophils % % Lymphocytes % % Monocytes % % Eosinophils % % Basophils % % Neutrophils # (1.3-7.7) k/uL Lymphocytes # (1.0-4.8) k/uL Monocytes # (0-1.0) k/uL Eosinophils # (0-0.7) k/uL Basophils # (0-0.2) k/uL Hyperchromasia PT 9.6 (9.0-12.0) sec INR 0.9 (<1.2) APTT 22.8 (22.0-30.0) sec Sodium (137-145) mmol/L Potassium (3.5-5.1) mmol/L Chloride (98-107) mmol/L Carbon Dioxide (22-30) mmol/L Anion Gap mmol/L BUN (9-20) mg/dL Creatinine (0.66-1.25) mg/dL Est GFR (MDRD) Af Amer (>60 ml/min/1.73 sqM) Est GFR (MDRD) Non-Af (>60 ml/min/1.73 sqM) Glucose (74-99) mg/dL Calcium (8.4-10.2) mg/dL Magnesium (1.6-2.3) mg/dL Total Bilirubin (0.2-1.3) mg/dL AST (17-59) U/L ALT (21-72) U/L Alkaline Phosphatase (38-126) U/L Total Creatine Kinase (55-170) U/L CK-MB (CK-2) (0.0-2.4) ng/mL CK-MB (CK-2) Rel Index Troponin I <0.012 (0.000-0.034) ng/mL Total Protein (6.3-8.2) g/dL Albumin (3.5-5.0) g/dL Lipase (23-300) U/L Disposition <Sami Lucio - Last Filed: 04/18/17 20:43> <Jose Enriquez - Last Filed: 04/18/17 22:41> Clinical Impression: Chest pain Disposition: HOME SELF-CARE Condition: Good Instructions: Chest Pain (ED) Referrals: Mine Walsh MD [Primary Care Provider] - 1-2 days
[2017-04-18 19:14] LABS: Basophils % (A) 1 %; CH 31.9; CHCM 37.2; Eosinophils # (A) 0.1 k/uL (0-0.7); Eosinophils % (A) 2 %; HDW 3.09; HGB 15.8 gm/dL (13.0-17.5); Hyperchromasia Slight; Luc # (Auto) 0.08; Luc % (Auto) 2; Lymphocytes # (A) 1.8 k/uL (1.0-4.8); Lymphocytes % (A) 34 %; MCH 31.7 pg (25.0-35.0); MCHC 36.8 g/dL (31.0-37.0); Mean Platelet Volume 6.8; Monocytes # (A) 0.3 k/uL (0-1.0); Monocytes % (A) 6 %; Neutrophils # (A) 2.8 k/uL (1.3-7.7); Neutrophils % (A) 55 %; RDW 12.6 % (11.5-15.5); WBC 5.1 k/uL (3.8-10.6); WBC (Perox) 4.92
[2017-04-18 19:22] LABS: INR 0.9 (<1.2); Partial Thromboplastin Time 22.8 sec (22.0-30.0); Prothrombin Time 9.6 sec (9.0-12.0)
[2017-04-18 19:25] LABS: ALT 69 U/L (21-72); AST 29 U/L (17-59); Alkaline Phosphatase 71 U/L (38-126); Anion Gap 10 mmol/L; Blood Urea Nitrogen 11 mg/dL (9-20); Calcium 9.4 mg/dL (8.4-10.2); Carbon Dioxide 22 mmol/L (22-30); Chloride 107 mmol/L (98-107); Creatine Kinase 39 U/L (55-170); Glucose 95 mg/dL (74-99); Magnesium 2.1 mg/dL (1.6-2.3); Non-African American GFR(MDRD) >60 (>60 ml/min/1.73 sqM); Potassium 3.8 mmol/L (3.5-5.1); Sodium 139 mmol/L (137-145); Total Bilirubin 0.4 mg/dL (0.2-1.3); Total Protein 6.2 g/dL (6.3-8.2)
--- NOTE | 2017-04-18 19:25 | XR ---
EXAMINATION TYPE: XR chest 2V DATE OF EXAM: 04/18/2017 COMPARISON: 09/27/2016 HISTORY: Chest pain TECHNIQUE: Frontal and lateral views of the chest are obtained. FINDINGS: Heart and mediastinum are normal. Lungs are clear. Diaphragm is normal. Bony thorax appear s normal. There are chest leads. IMPRESSION: Normal chest. No change.
[2017-04-18 19:39] LABS: Creatine Kinase MB 0.8 ng/mL (0.0-2.4); Troponin I <0.012 ng/mL (0.000-0.034)
[2017-04-18 20:11] VITALS: RESP 18
[2017-04-18 22:47] VITALS: BP 117/63; PULSE 72; TEMP 98.3
== END 2017-04-18 22:53 | disposition home or self-care (01) ==
LOC: EC 18:48
DX: R07.9 Chest pain, unspecified (principal); E11.9 Type 2 diabetes mellitus without complications; E78.5 Hyperlipidemia, unspecified; I25.2 Old myocardial infarction; I10 Essential (primary) hypertension; F31.9 Bipolar disorder, unspecified; F41.9 Anxiety disorder, unspecified; F17.200 Nicotine dependence, unspecified, uncomplicated; Z82.49 Family history of ischemic heart disease and other diseases of the circulatory system; Z88.6 Allergy status to analgesic agent; Z91.09 Other allergy status, other than to drugs and biological substances; Z91.018 Allergy to other foods; Z91.02 Food additives allergy status; Z79.84 Long term (current) use of oral hypoglycemic drugs; Z79.51 Long term (current) use of inhaled steroids; Z79.899 Other long term (current) drug therapy
CPT/HCPCS: 36415; 71020; 80053; 82550; 82553; 83690; 83735; 84484; 85025; 85610; 85730; 93005; 99285

== ENCOUNTER 2017-05-29 07:08 | Day surgery (SDC) | payer MEDICARE, OTHER ==
[2017-05-22 09:08] VITALS: BMI 30.4
--- NOTE | 2017-05-28 14:08 | HP ---
HISTORY AND PHYSICAL CHIEF COMPLAINT: Left knee pain. HISTORY OF PRESENT ILLNESS: The patient is a 46-year-old male on disability, who presents with progressive left knee pain for the past couple of years. It has worsened recently. He notes intermittent locking and giving way in his left knee. He has tried previous injections with minimal to no relief. He had a previous arthroscopy in his left knee as well. PAST MEDICAL HISTORY: Significant for asthma, chronic low back pain, bipolar disorder, depression, type 2 diabetes, hypertension, and arthritis. PAST SURGICAL HISTORY: Significant for multiple bilateral knee arthroscopies in addition to right total knee arthroplasty. CURRENT MEDICATIONS: Depakote, baclofen, Lipitor, metformin, metoprolol, Singulair, trazodone. ALLERGIES: He has ALLERGIES TO NAPROSYN AND IBUPROFEN. FAMILY HISTORY: Significant for cancer, heart disease and blood clots. SOCIAL HISTORY: Significant for 1 pack per day tobacco use. REVIEW OF SYSTEMS: Sixteen point review of systems otherwise reviewed and is noncontributory. PHYSICAL EXAMINATION: On examination, the patient is approximately 5 foot 9, 201 pounds of endomorphic habitus. HEENT exam is nonfocal. NECK: Supple. He has painless passive motion of his left hip. Straight leg raise is negative. Active motion left knee -6 to 125 degrees of flexion. He has mild effusion. He is tender about the medial joint line. Collaterals are stable, Taco negative, Jesus's elicits medial pain. His distal neurovascular appears otherwise intact in the left lower extremity. MRI report of the left knee shows evidence of a posterior medial meniscal tear. Previous x-rays of the left knee show moderate tricompartmental osteoarthrosis. IMPRESSION: 1. Left knee internal derangement with symptomatic medial meniscal tear. 2. Left knee moderate tricompartmental osteoarthrosis. 3. Fdf-lxpnfal-wdttrgsap diabetes. 4. Increased body mass index. RECOMMENDATIONS: I talked to the patient at length regarding his treatment options. At this point, he notes he is quite symptomatic and limited because of pain and mechanical symptoms despite previous conservative measures. After thorough discussion, he opts to proceed with surgery. We will plan to proceed with arthroscopic evaluation, possible partial medial meniscectomy. Risks and benefits were discussed at length in layman's terms. MMODL / IJN: [id number] /
[~2017-05-29 07:08] MED LIST: DEXAMETHASONE SOD PHOSPHATE 10 MG/ML 1 ML VIAL IV ONE; HYDROmorphone 1 MG/ML 1 ML SYRINGE IVP PRN; LACTATED RINGERS 1,000 ML IV SCH; ONDANSETRON 4 MG/2 ML VIAL IVP ONE; ceFAZolin IN SWFI 2 GM/20 ML SYRINGE IVP ONE
[2017-05-29] MEDS ORDERED: LIDOCAINE 1% 20 ML VIAL (10MG/ML) FOR IV START INTRADERMA ONE (07:33)
[2017-05-29 07:40] LABS: Glucose,Whole Blood 105 mg/dL (75-99)
[2017-05-29] MEDS ORDERED: fentaNYL (PF) 50 MCG/ML 2 ML AMP ONE (07:49)
[2017-05-29] MEDS ORDERED: PROPOFOL 10 MG/ML 20 ML VIAL IV ONE (07:49)
[2017-05-29] MEDS ORDERED: GLYCOPYRROLATE 0.2 MG/ML 2 ML VIAL ONE (07:49)
[2017-05-29] MEDS ORDERED: KETAMINE 10 MG/ML 20 ML VIAL ONE (07:49)
[2017-05-29] MEDS ORDERED: MIDAZOLAM 2 MG/2 ML VIAL ONE (07:49)
--- NOTE | 2017-05-29 08:47 | P.OP ---
Date of Procedure: 05/29/17 Preoperative Diagnosis: left knee internal derangement Postoperative Diagnosis: left knee posterior medial meniscal tear/grade 3 chondral injury central posterior medial femoral condyle/grade 3 chondral injury medial patellar facet Procedure(s) Performed: left knee arthroscopic partial medial meniscectomy/medial femoral chondrectomy/ microfracture medial femoral condyle/patellar chondroplasty Anesthesia: AMBER Surgeon: Ramon Ward Estimated Blood Loss (ml): 10 Pathology: none sent Condition: stable Disposition: PACU Indications for Procedure: the patient's a 46-year-old male who presents with progressive left knee pain and mechanical symptoms worsening over the past several months. Clinically and by MRI he was noted to have evidence of a symptomatic medial meniscal tear. A discussion of the risks and benefits of operative intervention versus continued conservative measures was made with the patient. He opted to proceed with surgery. Operative risks to include infection, neurovascular injury, development of blood clots, possible incomplete resolution of symptoms, possible worsening symptoms and need for subsequent procedures was discussed. Informed consent was obtained. Operative Findings: as below Description of Procedure: the patient was brought to the operating room, and after induction of general anesthesia examined the left knee. Collaterals were stable, Taco was negative, and posterior drawer was negative. The left lower extremity was prepped and draped in normal fashion. A superior lateral portal was made through a 3 mm skin incision superior and lateral to the patella. This was used for outflow. A lateral portal was made through a 5 mm vertical skin incision lateral to the patellar tendon above the joint line. Diagnostic arthroscopy was performed. A medial portal was made through a similar incision medial to the patella tendon above the joint line.on inspection of the medial compartment, he is noted have a longitudinal tear involving the posterior medial meniscus in the white-junction. This was not amenable to repair. This was debrided back to stable base with straight baskets and a motorized shaver. A corresponding grade 3/4 chondral injury was noted involving the central posterior portion of the medial femoral condyle. There was a loose chondral fragment. The lesion measured approximately 12 x 14 mm. The loose fragment was debrided and microfracture was performed with a chondral awl. The edges were stable. On inspection of the notch, the anterior cruciate ligament appeared to be intact. On inspection of the lateral component, no significant meniscal or cartilage pathology was noted. On inspection patellofemoral articulation, grade 2-3 chondral changes were noted diffusely. There was a loose chondral fragment involving the medial patella facet. This was debrided back to a stable base with a motorized shaver. The gutters were clear debris. The knee was then thoroughly irrigated. The portals were closed with Steri- Strips. A sterile dressing was applied in addition to a compression stocking. The patient was awoken from general anesthesia and transferred to recovery room in good condition. Blood loss estimated at 10 mL. No complications were incurred.
[2017-05-29 09:04] LABS: Glucose,Whole Blood 104 mg/dL (75-99)
[2017-05-29] MEDS ORDERED: HYDROcodone/APAP 5-325MG 1 EACH TAB PO ONE (10:25)
[2017-05-30 22:56] VITALS: BP 105/62; PULSE 80; RESP 16; TEMP 97.2
== END 2017-05-29 11:06 | disposition home or self-care (01) ==
LOC: OR 07:08
PROVIDERS: ATTEND Orthopaedic Surgery
DX: M17.12 Unilateral primary osteoarthritis, left knee (principal); S83.242A Other tear of medial meniscus, current injury, left knee, initial encounter; X58.XXXA Exposure to other specified factors, initial encounter; S83.32XA Tear of articular cartilage of left knee, current, initial encounter; M19.90 Unspecified osteoarthritis, unspecified site; J45.909 Unspecified asthma, uncomplicated; F17.200 Nicotine dependence, unspecified, uncomplicated; E78.5 Hyperlipidemia, unspecified; F31.9 Bipolar disorder, unspecified; E11.9 Type 2 diabetes mellitus without complications; Z79.84 Long term (current) use of oral hypoglycemic drugs; I10 Essential (primary) hypertension; Z79.899 Other long term (current) drug therapy; Z79.82 Long term (current) use of aspirin; Z88.6 Allergy status to analgesic agent
CPT/HCPCS: 29881; 29879; J2250; J1100; J0690; J2405; J3010; J2704

== ENCOUNTER 2017-06-09 00:08 | Emergency (ER) | payer MEDICARE, OTHER ==
[2017-06-09 00:13] VITALS: RESP 18; TEMP 98.9
[2017-06-09 00:32] LABS: Basophils # (A) 0.1 k/uL (0-0.2); Basophils % (A) 1 %; Eosinophils # (A) 0.2 k/uL (0-0.7); Eosinophils % (A) 3 %; HCT 43.1 % (39.0-53.0); HGB 14.6 gm/dL (13.0-17.5); Lymphocytes # (A) 1.9 k/uL (1.0-4.8); Lymphocytes % (A) 34 %; MCH 30.5 pg (25.0-35.0); MCHC 33.8 g/dL (31.0-37.0); Mean Platelet Volume 7.8; Monocytes # (A) 0.3 k/uL (0-1.0); Monocytes % (A) 6 %; Neutrophils # (A) 3.1 k/uL (1.3-7.7); Neutrophils % (A) 55 %; Platelet Count 201 k/uL (150-450); RBC 4.79 m/uL (4.30-5.90); RDW 13.8 % (11.5-15.5); WBC 5.6 k/uL (3.8-10.6)
[2017-06-09 00:44] LABS: INR 1.1 (<1.2); Partial Thromboplastin Time 23.2 sec (22.0-30.0); Prothrombin Time 10.3 sec (9.0-12.0)
[2017-06-09 00:51] LABS: ALT 39 U/L (21-72); AST 16 U/L (17-59); Alkaline Phosphatase 55 U/L (38-126); Anion Gap 11 mmol/L; Blood Urea Nitrogen 11 mg/dL (9-20); Calcium 9.7 mg/dL (8.4-10.2); Carbon Dioxide 29 mmol/L (22-30); Chloride 103 mmol/L (98-107); Glucose 114 mg/dL (74-99); Magnesium 2.2 mg/dL (1.6-2.3); Potassium 3.9 mmol/L (3.5-5.1); Sodium 143 mmol/L (137-145); Total Bilirubin 0.3 mg/dL (0.2-1.3); Total Protein 6.3 g/dL (6.3-8.2)
--- NOTE | 2017-06-09 00:54 | XR ---
EXAMINATION TYPE: XR chest 2V DATE OF EXAM: 06/09/2017 COMPARISON: 04/18/2017 HISTORY: Chest pain TECHNIQUE: Frontal and lateral views of the chest are obtained. FINDINGS: Heart and mediastinum are normal. Lungs are clear. Diaphragm is normal. Bony thorax is int act. There are chest leads. IMPRESSION: Normal chest. No change.
[2017-06-09 01:16] LABS: Creatine Kinase 65 U/L (55-170)
[2017-06-09 01:30] LABS: Creatine Kinase MB 1.3 ng/mL (0.0-2.4); Troponin I <0.012 ng/mL (0.000-0.034)
--- NOTE | 2017-06-09 02:12 | ED ---
Chest Pain HPI - General Chief Complaint: Chest Pain Stated Complaint: Chest Pain Time Seen by Provider: 06/09/17 00:09 Source: patient Mode of arrival: EMS Limitations: no limitations - History of Present Illness Initial Comments: Patient's 46-year-old man who presents to be evaluated for chest pain. He noted that the pain is worse if he moves left arm. No ischemic or anginal symptoms are coming. MD Complaint: chest pain Onset/Timin -: hour(s) Onset: during rest Pain Location: left chest Pain Radiation: LUE Severity: moderate Quality: aching Consistency: constant Improves With: nothing Worsens With: nothing - Related Data Home Medications Medication Instructions Recorded Confirmed Albuterol Sulfate [Ventolin HFA] 2 puff INHALATION RT-Q6H PRN 06/10/14 06/09/17 metFORMIN HCL [Glucophage] 500 mg PO DAILY@199906/10/14 06/09/17 Atorvastatin [Lipitor] 40 mg PO DAILY@199901/05/15 06/09/17 Baclofen 10 mg PO TID 06/01/16 06/09/17 Montelukast Sodium [Singulair] 10 mg PO HS 06/01/16 06/09/17 traZODone HCL 150 mg PO 09/27/16 06/09/17 Divalproex Sodium [Depakote] 500 mg PO TID 12/08/16 06/09/17 Aspirin EC [Ecotrin Low Dose] 81 mg PO DAILY 05/22/17 06/09/17 Fenofibrate Nanocrystallized 145 mg PO PC-SUPPER 05/22/17 06/09/17 [Tricor] Metoprolol Succinate [Toprol XL] 25 mg PO PC-SUPPER 05/22/17 05/29/17 Meclizine [Antivert] 12.5 mg PO TID 06/09/17 06/09/17 Terbinafine HCl [LamISIL] 250 mg PO DAILY 06/09/17 06/09/17 Venlafaxine HCl ER [Effexor Xr] 150 mg PO DAILY 06/09/17 06/09/17 Allergies Allergy/AdvReac Type Severity Reaction Status Date / Time naproxen [From Naprosyn] Allergy Unknown Rash/Hives Verified 05/22/17 08:56 carrot Allergy Dyspnea Verified 05/22/17 08:56 chocolate flavor Allergy Dyspnea Verified 05/22/17 08:56 grass pollen-perennial rye, Allergy Dyspnea Verified 05/22/17 08:56 standar ibuprofen Allergy Itching Verified 05/22/17 08:56 mold Allergy Unknown Verified 05/22/17 08:56 Review of Systems ROS Statement: Those systems with pertinent positive or pertinent negative responses have been documented in the HPI. ROS Other: All systems not noted in ROS Statement are negative. Constitutional: Denies: fever, chills Respiratory: Denies: cough, dyspnea Cardiovascular: Reports: chest pain. Denies: palpitations, edema, syncope Gastrointestinal: Denies: abdominal pain, nausea, vomiting Genitourinary: Denies: dysuria Musculoskeletal: Denies: back pain Skin: Denies: rash Neurological: Denies: headache, weakness EKG Findings - EKG Results: EKG: interpreted by CHOLO, sinus rhythm (Rate 76 bpm), normal axis, normal QRS - Blocks, [place], Hypertrophy, ST Abn: Repolarization changes or abnormalities: nonspecific abnormality, ST segment, and/or T wave Past Medical History Past Medical History: Chest Pain / Angina, Diabetes Mellitus, GERD/Reflux, Hyperlipidemia, Hypertension, Myocardial Infarction (CT) Additional Past Medical History / Comment(s): chronic back pain, herniated discs in the neck and the back. mood disturbance. Last Myocardial Infarction Date:: 2004 History of Any Multi-Drug Resistant Organisms: None Reported Past Surgical History: Hernia Repair, Joint Replacement Additional Past Surgical History / Comment(s): rt knee arthroscopy x3, lt knee arthroscopy last date 2012,total knee replacement rt knee; cardiac stent x1 2004 , stent placed for kidney stone 07/04/2016. Kidney stent has been removed. COLONOSCOPY Past Anesthesia/Blood Transfusion Reactions: No Reported Reaction Date of Last Stent Placement:: 2004 Past Psychological History: Anxiety, Bipolar, Depression Smoking Status: Current every day smoker - Past Family History Father Family Medical History: Congestive Heart Failure (CHF), Deep Vein Thrombosis ( DVT), Myocardial Infarction (CT), Pulmonary Embolus Additional Family Medical History / Comment(s): CT at age 38. "hole in colon" Mother Family Medical History: Cancer, COPD, Diabetes Mellitus, Hyperlipidemia Additional Family Medical History / Comment(s): breast and lung cancer Sister(s) Family Medical History: Diabetes Mellitus Additional Family Medical History / Comment(s): bi-polar, anxiety. hysterectomy Brother(s) History Unknown: Yes General Exam Limitations: no limitations General appearance: alert, in no apparent distress Head exam: Present: atraumatic, normocephalic Eye exam: Present: normal appearance. Absent: scleral icterus, conjunctival injection Neck exam: Present: normal inspection, full ROM Respiratory exam: Present: normal lung sounds bilaterally. Absent: respiratory distress, wheezes, rales, rhonchi, stridor Cardiovascular Exam: Present: regular rate, normal rhythm, normal heart sounds. Absent: systolic murmur, diastolic murmur GI/Abdominal exam: Present: soft. Absent: tenderness, guarding, rebound Extremities exam: Present: normal inspection, normal capillary refill. Absent: pedal edema, calf tenderness Back exam: Present: normal inspection. Absent: CVA tenderness (R), CVA tenderness (L) Neurological exam: Present: alert Skin exam: Present: warm, dry, intact, normal color. Absent: rash Course Vital Signs 06/09/17 06/09/17 00:11 02:27 Temperature 98.9 F Pulse Rate 77 97 Respiratory 18 18 Rate Blood Pressure 133/66 109/63 O2 Sat by Pulse 97 98 Oximetry Chest Pain MDM - MDM Patient is a 46-year-old man with atypical chest pain. His workup is negative. We discussed further follow-up and return parameters. Disposition Clinical Impression: Chest pain Disposition: HOME SELF-CARE Condition: Good Instructions: Chest Pain (ED) Referrals: Mine Walsh MD [Primary Care Provider] - 1-2 days
[2017-06-09 02:29] VITALS: BP 109/63; PULSE 97
== END 2017-06-09 02:26 | disposition home or self-care (01) ==
LOC: EC 00:08
DX: R07.9 Chest pain, unspecified (principal); E11.9 Type 2 diabetes mellitus without complications; E78.5 Hyperlipidemia, unspecified; I10 Essential (primary) hypertension; I25.2 Old myocardial infarction; F41.9 Anxiety disorder, unspecified; F32.9 Major depressive disorder, single episode, unspecified; F17.200 Nicotine dependence, unspecified, uncomplicated; Z95.5 Presence of coronary angioplasty implant and graft; Z79.82 Long term (current) use of aspirin; Z79.84 Long term (current) use of oral hypoglycemic drugs; Z79.899 Other long term (current) drug therapy; Z88.6 Allergy status to analgesic agent; Z91.018 Allergy to other foods; Z91.048 Other nonmedicinal substance allergy status
CPT/HCPCS: 36415; 71046; 80053; 82550; 82553; 83735; 84484; 85025; 85610; 85730; 93005; 99285

== ENCOUNTER 2017-08-01 16:35 | Emergency (ER) | payer MEDICARE, OTHER ==
[2017-08-01 16:46] VITALS: RESP 18
[2017-08-01 17:26] LABS: Basophils % (A) 1 %; Eosinophils # (A) 0.1 k/uL (0-0.7); Eosinophils % (A) 1 %; HCT 42.6 % (39.0-53.0); Lymphocytes # (A) 1.1 k/uL (1.0-4.8); Lymphocytes % (A) 28 %; MCH 30.4 pg (25.0-35.0); MCHC 35.3 g/dL (31.0-37.0); MCV 85.9 fL (80.0-100.0); Mean Platelet Volume 7.3; Monocytes # (A) 0.4 k/uL (0-1.0); Monocytes % (A) 10 %; Neutrophils # (A) 2.4 k/uL (1.3-7.7); Neutrophils % (A) 59 %; Platelet Count 173 k/uL (150-450); RBC 4.95 m/uL (4.30-5.90); RDW 12.6 % (11.5-15.5)
[2017-08-01 17:36] LABS: ALT 69 U/L (21-72); AST 32 U/L (17-59); Albumin 4.2 g/dL (3.5-5.0); Alkaline Phosphatase 57 U/L (38-126); Anion Gap 11 mmol/L; Blood Urea Nitrogen 17 mg/dL (9-20); Calcium 9.7 mg/dL (8.4-10.2); Carbon Dioxide 25 mmol/L (22-30); Chloride 105 mmol/L (98-107); Glucose 88 mg/dL (74-99); Potassium 4.5 mmol/L (3.5-5.1); Sodium 141 mmol/L (137-145); Total Bilirubin 0.3 mg/dL (0.2-1.3); Total Protein 6.6 g/dL (6.3-8.2)
[2017-08-01] MEDS ORDERED: ACETAMINOPHEN TAB 500 MG TAB PO STA (18:35)
--- NOTE | 2017-08-01 18:36 | ED ---
Fever HPI - General Chief Complaint: Fever Stated Complaint: Fever Time Seen by Provider: 08/01/17 18:10 Source: patient, RN notes reviewed Mode of arrival: ambulatory Limitations: no limitations - History of Present Illness Initial Comments: This a 46-year-old male presents emergency Department with chief complaint of fever. Patient states that he developed a fever last night he states that he took some his [place] for the fever and pain. Patient states he has a headache denies any neck pain or neck stiffness of usual. Patient states his chronic neck pain and headaches and which she had an epidural on Sunday by Dr. Knapp. Patient states that he has not taken any recent Tylenol for his fever. Patient denies sore throat, ear pain. He has has slight cough and congestion. Patient denies any abdominal pain no nausea vomiting diarrhea constipation. Patient has no dysuria no hematuria. Patient states he has an ALLERGY to NSAIDs. Patient denies any rashes patient offers no other complaints. - Related Data Home Medications Medication Instructions Recorded Confirmed metFORMIN HCL [Glucophage] 500 mg PO DAILY@199906/10/14 08/01/17 Montelukast Sodium [Singulair] 10 mg PO HS 06/01/16 08/01/17 Meclizine [Antivert] 12.5 mg PO TID 08/01/17 08/01/17 Allergies Allergy/AdvReac Type Severity Reaction Status Date / Time naproxen [From Naprosyn] Allergy Unknown Rash/Hives Verified 08/01/17 18:19 carrot Allergy Dyspnea Verified 08/01/17 18:19 chocolate flavor Allergy Dyspnea Verified 08/01/17 18:19 grass pollen-perennial rye, Allergy Dyspnea Verified 08/01/17 18:19 standar ibuprofen Allergy Itching Verified 08/01/17 18:19 mold Allergy Unknown Verified 08/01/17 18:19 Review of Systems ROS Statement: Those systems with pertinent positive or pertinent negative responses have been documented in the HPI. ROS Other: All systems not noted in ROS Statement are negative. Past Medical History Past Medical History: Chest Pain / Angina, Diabetes Mellitus, GERD/Reflux, Hyperlipidemia, Hypertension, Myocardial Infarction (MD) Additional Past Medical History / Comment(s): chronic back pain, herniated discs in the neck and the back. mood disturbance. Last Myocardial Infarction Date:: 2004 History of Any Multi-Drug Resistant Organisms: None Reported Past Surgical History: Hernia Repair, Joint Replacement Additional Past Surgical History / Comment(s): rt knee arthroscopy x3, lt knee arthroscopy last date 2012,total knee replacement rt knee; cardiac stent x1 2004 , stent placed for kidney stone 07/04/2016. Kidney stent has been removed. COLONOSCOPY Past Anesthesia/Blood Transfusion Reactions: No Reported Reaction Date of Last Stent Placement:: 2004 Past Psychological History: Anxiety, Bipolar, Depression Smoking Status: Current every day smoker Past Alcohol Use History: None Reported, Rare Past Drug Use History: None Reported - Past Family History Father Family Medical History: Congestive Heart Failure (CHF), Deep Vein Thrombosis ( DVT), Myocardial Infarction (MD), Pulmonary Embolus Additional Family Medical History / Comment(s): MD at age 38. "hole in colon" Mother Family Medical History: Cancer, COPD, Diabetes Mellitus, Hyperlipidemia Additional Family Medical History / Comment(s): breast and lung cancer Sister(s) Family Medical History: Diabetes Mellitus Additional Family Medical History / Comment(s): bi-polar, anxiety. hysterectomy Brother(s) History Unknown: Yes General Exam Limitations: no limitations General appearance: alert, in no apparent distress Head exam: Present: atraumatic, normocephalic, normal inspection Eye exam: Present: normal appearance, PERRL, EOMI. Absent: scleral icterus, conjunctival injection, periorbital swelling ENT exam: Present: normal exam, normal oropharynx, mucous membranes moist, TM's normal bilaterally, normal external ear exam Neck exam: Present: normal inspection, full ROM. Absent: tenderness, meningismus, lymphadenopathy Respiratory exam: Present: normal lung sounds bilaterally. Absent: respiratory distress, wheezes, rales, rhonchi, stridor Cardiovascular Exam: Present: regular rate, normal rhythm, normal heart sounds. Absent: systolic murmur, diastolic murmur, rubs, gallop, clicks GI/Abdominal exam: Present: soft, normal bowel sounds. Absent: distended, tenderness, guarding, rebound, rigid Extremities exam: Present: normal inspection, full ROM, normal capillary refill. Absent: tenderness, pedal edema, joint swelling, calf tenderness Back exam: Present: normal inspection (There is no rash, erythema no warmth the back over site of injection), full ROM. Absent: tenderness, paraspinal tenderness, vertebral tenderness Neurological exam: Present: alert, oriented X3, CN II-XII intact, reflexes normal. Absent: motor sensory deficit Skin exam: Present: warm, dry, intact, normal color. Absent: rash Course Vital Signs 08/01/17 16:42 Temperature 101.0 F H Pulse Rate 94 Respiratory 18 Rate Blood Pressure 135/73 O2 Sat by Pulse 100 Oximetry - Reevaluation(s) Reevaluation #1: 08/01/17 19:26 Patient was evaluated. Patient states that he has resolved he has no neck pain this time. Patient is up-to-date on her lab results which are unremarkable. Patient has no meningismus. Medical Decision Making - Medical Decision Making 46-year-old male present emergency Department for fever. Patient has no other source for infection. Patient has no meningismus. Patient did complain of headache and cough. Patient is moving headache freely with no difficulty. Patient felt improved after Tylenol. Patient we discharged at this time return parameters were discussed. - Lab Data Result diagrams: 08/01/17 17:10 08/01/17 17:10 Lab Results 08/01/17 08/01/17 08/01/17 Range/Units 17:10 17:10 17:10 WBC 4.0 (3.8-10.6) k/uL RBC 4.95 (4.30-5.90) m/uL Hgb 15.0 (13.0-17.5) gm/dL Hct 42.6 (39.0-53.0) % MCV 85.9 (80.0-100.0) fL MCH 30.4 (25.0-35.0) pg MCHC 35.3 (31.0-37.0) g/dL RDW 12.6 (11.5-15.5) % Plt Count 173 (150-450) k/uL Neutrophils % 59 % Lymphocytes % 28 % Monocytes % 10 % Eosinophils % 1 % Basophils % 1 % Neutrophils # 2.4 (1.3-7.7) k/uL Lymphocytes # 1.1 (1.0-4.8) k/uL Monocytes # 0.4 (0-1.0) k/uL Eosinophils # 0.1 (0-0.7) k/uL Basophils # 0.0 (0-0.2) k/uL Sodium 141 (137-145) mmol/L Potassium 4.5 (3.5-5.1) mmol/L Chloride 105 (98-107) mmol/L Carbon Dioxide 25 (22-30) mmol/L Anion Gap 11 mmol/L BUN 17 (9-20) mg/dL Creatinine 0.90 (0.66-1.25) mg/dL Est GFR (CKD-EPI)AfAm >90 (>60 ml/min/1.73 sqM) Est GFR (CKD-EPI)NonAf >90 (>60 ml/min/1.73 sqM) Glucose 88 (74-99) mg/dL Plasma Lactic Acid Cory 1.9 (0.7-2.0) mmol/L Calcium 9.7 (8.4-10.2) mg/dL Total Bilirubin 0.3 (0.2-1.3) mg/dL AST 32 (17-59) U/L ALT 69 (21-72) U/L Alkaline Phosphatase 57 (38-126) U/L Total Protein 6.6 (6.3-8.2) g/dL Albumin 4.2 (3.5-5.0) g/dL Urine Color Urine Appearance (Clear) Urine pH (5.0-8.0) Ur Specific [place] (1.001-1.035) Urine Protein (Negative) Urine Glucose (UA) (Negative) Urine Ketones (Negative) Urine Blood (Negative) Urine Nitrite (Negative) Urine Bilirubin (Negative) Urine Urobilinogen (<2.0) mg/dL Ur Leukocyte Esterase (Negative) Influenza Type A RNA (Not Detectd) Influenza Type B (PCR) (Not Detectd) 08/01/17 08/01/17 Range/Units 18:14 18:14 WBC (3.8-10.6) k/uL RBC (4.30-5.90) m/uL Hgb (13.0-17.5) gm/dL Hct (39.0-53.0) % MCV (80.0-100.0) fL MCH (25.0-35.0) pg MCHC (31.0-37.0) g/dL RDW (11.5-15.5) % Plt Count (150-450) k/uL Neutrophils % % Lymphocytes % % Monocytes % % Eosinophils % % Basophils % % Neutrophils # (1.3-7.7) k/uL Lymphocytes # (1.0-4.8) k/uL Monocytes # (0-1.0) k/uL Eosinophils # (0-0.7) k/uL Basophils # (0-0.2) k/uL Sodium (137-145) mmol/L Potassium (3.5-5.1) mmol/L Chloride (98-107) mmol/L Carbon Dioxide (22-30) mmol/L Anion Gap mmol/L BUN (9-20) mg/dL Creatinine (0.66-1.25) mg/dL Est GFR (CKD-EPI)AfAm (>60 ml/min/1.73 sqM) Est GFR (CKD-EPI)NonAf (>60 ml/min/1.73 sqM) Glucose (74-99) mg/dL Plasma Lactic Acid Cory (0.7-2.0) mmol/L Calcium (8.4-10.2) mg/dL Total Bilirubin (0.2-1.3) mg/dL AST (17-59) U/L ALT (21-72) U/L Alkaline Phosphatase (38-126) U/L Total Protein (6.3-8.2) g/dL Albumin (3.5-5.0) g/dL Urine Color Light Yellow Urine Appearance Clear (Clear) Urine pH 6.0 (5.0-8.0) Ur Specific [place] 1.013 (1.001-1.035) Urine Protein Negative (Negative) Urine Glucose (UA) Negative (Negative) Urine Ketones Negative (Negative) Urine Blood Negative (Negative) Urine Nitrite Negative (Negative) Urine Bilirubin Negative (Negative) Urine Urobilinogen 2.0 (<2.0) mg/dL Ur Leukocyte Esterase Negative (Negative) Influenza Type A RNA Not Detected (Not Detectd) Influenza Type B (PCR) Not Detected (Not Detectd) Disposition Clinical Impression: Viral infection, Fever Disposition: HOME SELF-CARE Condition: Stable Instructions: Fever in Adults (ED) Additional Instructions: Please return to the Emergency Department if symptoms worsen or any other concerns. Referrals: Mine Walsh MD [Primary Care Provider] - 1-2 days Time of Disposition: 19:27
[2017-08-01 18:44] LABS: Appearance,Urine Clear (Clear); Bilirubin,Urine Negative (Negative); Blood,Urine Negative (Negative); Color,Urine Light Yellow; Glucose,Urine (UA) Negative (Negative); Ketones,Urine Negative (Negative); Leukocyte Esterase,Urine Negative (Negative); Protein,Urine Negative (Negative); Specific Gravity,Urine 1.013 (1.001-1.035)
--- NOTE | 2017-08-01 18:59 | XR ---
EXAMINATION TYPE: XR chest 2V DATE OF EXAM: 08/01/2017 COMPARISON: Chest x-ray June 09, 2017 HISTORY: History of hypertension with fever and chest pain. TECHNIQUE: Frontal and lateral views of the chest are obtained. FINDINGS: There is eventration of the anterior aspect right hemidiaphragm. There is no focal air spa ce opacity, pleural effusion, or pneumothorax seen. The cardiac silhouette size is within normal li its. The osseous structures are intact. IMPRESSION: No suspicious acute pulmonary process. No significant change from prior chest x-ray.
[2017-08-01 19:34] VITALS: BP 124/63; PULSE 87; TEMP 98.7
== END 2017-08-01 19:33 | disposition home or self-care (01) ==
LOC: EC 16:35
DX: B34.9 Viral infection, unspecified (principal); E11.9 Type 2 diabetes mellitus without complications; F17.200 Nicotine dependence, unspecified, uncomplicated; Z79.899 Other long term (current) drug therapy; Z79.84 Long term (current) use of oral hypoglycemic drugs; Z88.6 Allergy status to analgesic agent; Z91.018 Allergy to other foods; Z91.048 Other nonmedicinal substance allergy status
CPT/HCPCS: 36415; 71046; 80053; 81003; 83605; 85025; 87040; 87086; 87502; 99283

== ENCOUNTER → 2017-09-05 | Outpatient (CLI) | payer MEDICARE, OTHER ==
[2017-09-05 10:11] LABS: Basophils % (A) 0 %; Eosinophils # (A) 0.1 k/uL (0-0.7); Eosinophils % (A) 2 %; HCT 41.7 % (39.0-53.0); Lymphocytes # (A) 1.9 k/uL (1.0-4.8); Lymphocytes % (A) 36 %; MCH 29.6 pg (25.0-35.0); MCHC 33.6 g/dL (31.0-37.0); MCV 88.1 fL (80.0-100.0); Mean Platelet Volume 7.5; Monocytes # (A) 0.3 k/uL (0-1.0); Monocytes % (A) 6 %; Neutrophils # (A) 2.8 k/uL (1.3-7.7); Neutrophils % (A) 54 %; Platelet Count 179 k/uL (150-450); RBC 4.74 m/uL (4.30-5.90); RDW 13.1 % (11.5-15.5); WBC 5.3 k/uL (3.8-10.6)
[2017-09-05 12:55] LABS: Erythrocyte Sedimentation Rate 2 mm/hr (0-15)
== END | disposition home or self-care (01) ==
LOC: LABWHC1 09:44
PROVIDERS: ATTEND Orthopaedic Surgery
DX: T84.84XD Pain due to internal orthopedic prosthetic devices, implants and grafts, subsequent encounter (principal)
CPT/HCPCS: 36415; 85025; 85652; 86140

== ENCOUNTER → 2017-09-11 | Outpatient (CLI) | payer MEDICARE, OTHER ==
--- NOTE | 2017-09-11 15:53 | CONS ---
CONSULTATION Consultation note for sleep apnea. 46-year-old male patient. Primary of Dr. Walsh who also follows up with Dr. Knapp regarding chronic back pain. The patient has been having issues with loud snoring, witnessed apneas, as reported by significant other and excessive daytime hypersomnolence and sleepiness. Recently while inserting a neural stimulator the patient was noted to quit breathing under the effect of sedative medications. This raises suspicion for ASHLEY further and for that reason, the patient was sent [facility] to [facility]. He admits to snoring and he admits to have sleep fragmentation. He has nocturia in addition. He wakes up tired during the day and has trouble with falling sleep and taking naps on and off. His current [place] score is at 13. His back pain is under better control with the nerve stimulator. No recent weight gain or weight loss. He is off narcotic medications. PAST MEDICAL HISTORY: Chronic back pain, bipolar disorder, anxiety, diabetes mellitus and hyperlipidemia. PAST SURGICAL HISTORY: Includes insertion of a permanent neuro stimulator for chronic back pain. Total knee replacement. Arthroscopic knee surgery and hernia repair. DRUG ALLERGIES: Not known. He is known to have environmental allergies including GRASS AND TREE AND MOLDS. Also food allergies including CARROTS AND CHOCOLATE. He may be also allergic to NAPROSYN however this is not certain. MEDICATION LIST: Includes Singulair 10 mg p.o. daily. Lipitor 80 mg p.o. daily, 150 mg p.o. daily, baclofen 10 mg p.o. daily, fenofibrate 145 mg 1 tablet a day. Metformin 1000 mg p.o. daily, Depakote 500 mg 3 times a day and metoprolol 25 mg once a day. SOCIAL HISTORY: Smoker 1-1/2 pack of cigarettes a day. No history of alcohol, no history of IV drugs. FAMILY HISTORY: Negative for obstructive sleep apnea. REVIEW OF SYSTEMS: 12-point review of system was done. Positive findings are mentioned above in the history of present illness. PHYSICAL EXAMINATION: BP is 123/74, pulse 82, respirations 16, temperature 97.5, saturation 97% on room air. Neck size 16-1/4, weight is 206, height is 5 feet 8 inches, BMI 31.3. GENERAL APPEARANCE: Calm, comfortable. No acute distress. Head is atraumatic, normocephalic. NECK: Supple. There is no JVD. No goiter or neck masses. LUNGS: Clear to auscultation. HEART: Sounds are regular rate and rhythm. Normal S1, S2. No S3. No murmurs. ABDOMEN: Soft, nontender. No organomegaly. EXTREMITIES: No edema. No cyanosis or clubbing. SKIN: Negative for any wounds or ulcerations. IMPRESSION: 1. Obstructive sleep apnea clinically suspected. Overall suspicion for obstructive sleep apnea is high based on the reported symptoms and based on the observation that was done by Anesthesiology. 2. Chronic daytime drowsiness and sleepiness with [place] score of 13. 3. Chronic back pain, post neurostimulator insertion. 4. Environmental allergies. 5. Hyperlipidemia. 6. Bipolar disorder. 7. Anxiety disorder. 8. Diabetes mellitus. 9. Hyperlipidemia. PLAN: 1. Encourage weight loss. 2. Implement good sleep hygiene measures. 3. Pain control. 4. Proceed with a screening polysomnogram looking for any significant sleep breathing disorder/obstructive sleep apnea. MMNADERL / IJN: [id number] /
== END | disposition home or self-care (01) ==
LOC: SLEEP 14:19
PROVIDERS: ATTEND Internal Medicine Critical Care Medicine
DX: G47.00 Insomnia, unspecified (principal); R06.83 Snoring; G89.29 Other chronic pain; E78.5 Hyperlipidemia, unspecified; F31.9 Bipolar disorder, unspecified; F41.9 Anxiety disorder, unspecified; J30.1 Allergic rhinitis due to pollen; E11.9 Type 2 diabetes mellitus without complications; F17.210 Nicotine dependence, cigarettes, uncomplicated; Z79.84 Long term (current) use of oral hypoglycemic drugs; Z98.890 Other specified postprocedural states; Z91.018 Allergy to other foods; Z79.899 Other long term (current) drug therapy; Z79.01 Long term (current) use of anticoagulants; Z96.89 Presence of other specified functional implants
CPT/HCPCS: 99211

== ENCOUNTER → 2017-10-15 | Outpatient (CLI) | payer MEDICARE, OTHER | END | disposition home or self-care (01) | LOC: LABPAT 12:58 | PROVIDERS: ATTEND Orthopaedic Surgery | DX: Z01.812 Encounter for preprocedural laboratory examination (principal) | CPT/HCPCS: 87070 ==

== ENCOUNTER 2017-10-23 06:08 | Inpatient (IN) | payer MEDICARE, OTHER ==
[2017-10-15 09:18] VITALS: BMI 30.5
--- NOTE | 2017-10-22 11:48 | HP ---
HISTORY AND PHYSICAL CHIEF COMPLAINT: Right knee pain. HISTORY OF PRESENT ILLNESS: The patient is a 46-year-old male on disability, who presents with persistent right knee pain after undergoing a total knee arthroplasty December 17, 2014. He notes pain that increases with weightbearing activities. He notes he has had problems ever since his initial replacement. He did have a manipulation, however, denied any wound healing problems after his index surgery. PAST MEDICAL HISTORY: Significant for asthma, bipolar disorder, type 2 diabetes, hypertension, and arthritis PAST SURGICAL HISTORY: Significant for right total knee arthroplasty, bilateral knee arthroscopy. CURRENT MEDICATIONS: Depakote, baclofen, Lipitor, metformin, metoprolol, Singulair, trazodone. ALLERGIES: NAPROSYN, IBUPROFEN. FAMILY HISTORY: Significant for cancer and DVT along with heart disease. SOCIAL HISTORY: Significant for 1 pack per day tobacco use. REVIEW OF SYSTEMS: 16 point review of systems otherwise reviewed and is noncontributory. PHYSICAL EXAMINATION: GENERAL: On examination, the patient is approximately 5 foot 9, 201 pounds of endomorphic habitus. HEENT exam is nonfocal. NECK is supple. EXTREMITIES: He has painless passive motion of the right hip. Straight leg raise is negative. Active motion right knee -14 to 90 degrees of flexion. He has a healed incision. There is no warmth or erythema. He has a mild effusion. He has tenderness about the medial and lateral joint line. Collaterals are stable. Homans is negative. His distal neurovascular appears intact in the right lower extremity. LABORATORY DATA: Previous laboratory studies showed normal C-reactive protein and sedimentation rate. Bone scan showed increased uptake involving the distal femoral component greater than the proximal tibial component. 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 RECOMMENDATIONS: I talked to the patient at length regarding his treatment options. At this point, he is quite symptomatic and limited because of pain. He opts to proceed with surgery. We will plan to proceed with revision right total knee arthroplasty. Risks and benefits were discussed at length in layman's terms. We will institute DVT prophylaxis postoperatively. MMODL / IJN: [id number] / MURALI
[~2017-10-23 06:08] MED LIST changes: +ACETAMINOPHEN TAB 500 MG TAB PO ONE; -DEXAMETHASONE SOD PHOSPHATE 10 MG/ML 1 ML VIAL IV ONE; -HYDROmorphone 1 MG/ML 1 ML SYRINGE IVP PRN; -LACTATED RINGERS 1,000 ML IV SCH; -ONDANSETRON 4 MG/2 ML VIAL IVP ONE; +TRANEXAMIC ACID 1,000 MG in SODIUM CHLORIDE 0.9% 50 ML IVPB ONE
[2017-10-23] MEDS ORDERED: fentaNYL (PF) 50 MCG/ML 2 ML AMP IV PRN (06:17)
[2017-10-23] MEDS ORDERED: MIDAZOLAM 2 MG/2 ML VIAL IV PRN (06:17)
[2017-10-23] MEDS ORDERED: SCOPOLAMINE 1.5MG/72HR PATCH TRANSDERM ONE (06:17)
[2017-10-23] MEDS ORDERED: LIDOCAINE 1% 20 ML VIAL (10MG/ML) FOR IV START INTRADERMA PRN (06:17)
[2017-10-23] MEDS ORDERED: DEXAMETHASONE SOD PHOSPHATE 10 MG/ML 1 ML VIAL IV ONE (06:17)
[2017-10-23] MEDS ORDERED: ONDANSETRON 4 MG/2 ML VIAL ONE (06:51)
[2017-10-23 06:52] LABS: Glucose,Whole Blood 98 mg/dL (75-99)
[2017-10-23] MEDS: LACTATED RINGERS 1,000 ML IV SCH (06:53)
[2017-10-23] MEDS ORDERED: TRANEXAMIC ACID 1,000 MG/10 ML VIAL ONE (07:50)
[2017-10-23] MEDS ORDERED: MIDAZOLAM 2 MG/2 ML VIAL ONE (07:50)
[2017-10-23] MEDS ORDERED: ROPIVACAINE 1,100 MG, SODIUM CHLORIDE 0.9% 330 ML MISCELLANE PRN ×2 (07:50)
[2017-10-23] MEDS ORDERED: SODIUM CHLORIDE 0.9% 100 ML BAG ONE (07:50)
--- NOTE | 2017-10-23 07:50 | P.ONQ ---
Anesthesiology Proc Note - PNB - Peripheral Nerve Block Performed Right Adductor Canal Infusion Time Out Performed: Yes (7:27) Procedure Start Time: : Procedure Stop Time: : Indication: Acute Post-Operative Pain, Requested by physician Sedation Type: Sedate with meaningful contact maintained Preparation: Sterile Dressing Position: Supine Catheter: Indwelling Needle Types: Giuliana Needle Size: 100mm (4") Needle Gauge: 20 Technique: Ultrasound Injectate: 0.5% Ropivacaine (see comment for volume) (30 mls) Blood Aspirated: No Pain Paresthesia on Injection Noted: No Resistance on Injection: Normal Events: Uneventful and Well Tolerated
[2017-10-23] MEDS ORDERED: NALOXONE 0.4 MG/ML 1 ML VIAL IV PRN (08:11)
[2017-10-23] MEDS ORDERED: diphenhydrAMINE 50 MG/ML 1 ML VIAL IVP PRN (08:14)
[2017-10-23] MEDS ORDERED: NALBUPHINE 10 MG/ML AMPUL IV PRN (08:14)
[2017-10-23] MEDS ORDERED: MORPHINE SULFATE 4 MG/ML SYRINGE IVP PRN ×3 (08:14→10:49)
[2017-10-23] MEDS: ROPIVACAINE 246.25 MG, EPINEPHrine 0.5 MG, KETOROLAC 30 MG, cloNIDine HCL/PF 80 MCG, WA... MISCELLANE ONE ×10 (08:33→10:32)
[2017-10-23] MEDS ORDERED: ceFAZolin 3,000 MG in SODIUM CHLORIDE 0.9% IRRIGATIO 3,000 ML IRRIGATION ONE (08:33)
[2017-10-23] MEDS ORDERED: LACTATED RINGERS 1,000 ML IV ONE (10:18)
[2017-10-23] MEDS ORDERED: HYDROcodone/APAP 7.5-325MG 1 EACH TAB PO PRN ×2 (10:49)
[2017-10-23] MEDS ORDERED: ACETAMINOPHEN TAB 325 MG TAB PO PRN (10:49)
[2017-10-23] MEDS ORDERED: ONDANSETRON 4 MG/2 ML VIAL IVP PRN (10:49)
[2017-10-23] MEDS ORDERED: MAGNESIUM HYDROXIDE 2,400 MG/10 ML CUP PO PRN (10:49)
[2017-10-23] MEDS ORDERED: MORPHINE SULFATE 4 MG/ML SYRINGE IV PRN ×2 (10:49)
--- NOTE | 2017-10-23 11:26 | P.OP ---
Date of Procedure: 10/23/17 Preoperative Diagnosis: Painful right total knee arthroplasty Postoperative Diagnosis: Aseptic loosening right total knee arthroplasty Procedure(s) Performed: Revision right total knee arthroplasty Implants: Depuy PFC Sigma TC3 size 4 cemented femoral component, 31 mm femoral metaphyseal sleeve, 75 x 18 mm fluted femoral stem, size 3 cemented tibial component, 29 mm metaphyseal tibial sleeve, 13 x 30 mm cemented tibial stem, and a 10 mm TC 3 articular surface. Anesthesia: regional, local, spinal Surgeon: Ramon Ward [employer]ire Recapper #1: Fili Unger Estimated Blood Loss (ml): 100 Pathology: other (Bone fragments, synovium) Condition: stable Disposition: PACU Indications for Procedure: The patient is a 46-year-old male who presents with persistent right knee pain after undergoing a press-fit total knee arthroplasty in 2014. Laboratory studies showed no evidence of infection. Bone scan showed increased uptake about the femoral and tibial components. A discussion of the risks and benefits of revision total knee posterior was discussed with the patient. He opted to proceed. Operative risks to include infection, neurovascular injury, development of blood clots, possible component loosening, possible component failure and need for subsequent procedures was discussed. Informed consent was obtained. Operative Findings: As below Description of Procedure: The patient was brought to the operating room, and after induction of spinal anesthesia the right lower extremity was prepped and draped in normal fashion. The tourniquet was inflated to 270 mmHg. A longitudinal incision extending 3 finger breaths above the superior pole of patella extending to the medial aspect of the tibial tubercle was then made. The skin and subcutaneous tissues were divided sharply. Electrocautery was used for hemostasis. A medial parapatellar arthrotomy is performed. The medial soft tissues to include the superficial and deep portions medial collateral ligament were elevated subperiosteally. The patella was translated laterally. The knee was flexed. The polyethylene was then removed with an osteotome. A small sagittal saw was utilized breaking the implant bone interface around the distal femur and proximal tibia. The femoral component was easily removed with minimal distal and posterior bone loss. There was some anterior bone loss. The tibial component was removed and there was some posterior bone loss. The tibia was then reamed up to 13 mm. The metaphyseal reamer was inserted to the appropriate depth. A 29 mm metaphyseal sleeve was inserted and was fully seated. I felt this was the adequate size. The tibia sized most appropriate size 3. A site 3 tibial component along with a 29 mm metaphyseal sleeve and 13 x 30 mm tibial stem was inserted. There was good overall tibial coverage and stability. This was then removed. Attention was then paid towards preparing the distal femur. The canal was then reamed up to 16 mm to the appropriate depth. The metaphyseal reamer was inserted to the appropriate depth. A 31 mm metaphyseal sleeve was inserted and was seated to the appropriate depth. There was good rotational stability. The distal cutting block was then placed. No substantial distal loss was noted. The 4-in-1 cutting block was then placed. The anterior, posterior, and chamfer cuts were made. There is no substantial posterior bone loss. The box guide was then placed. The reciprocating saw was utilized to cut the box. The bone was removed in one fragment. The trial femoral component was then assembled and inserted. There is good anterior to posterior and medial to lateral fit. This was then removed. The tibial component inserted. The femoral component was inserted. A trial 10 mm articular surface was placed. The knee was taken through range of motion. I was able to obtain full flexion and extension with good stability with varus and valgus stress. This was a rotating platform tibia. The trial components were then removed. The bony surfaces were prepared with pulsatile lavage and dried. The posterior soft tissues were injected with ropivacaine. The tibial component was cemented in place taking care to avoid any cement on the metaphyseal sleeve. This was then impacted. The femoral component was cemented in place again avoiding cement on the metaphyseal sleeve. The trial 10 mm articular surface was placed in the knee was put in full extension. The previous patellar component appeared well fixed and it was decided to retain this. I good patellofemoral tracking with no hands technique. After the cement had sufficiently hardened, the trial articular surface was removed. The final 10 mm cut surface was placed. The knee was again taken through a range of motion. Again there was good stability in flexion and extension with varus and valgus stress. Pulsatile lavage was utilized. The medial parapatellar arthrotomy was closed with #2 Ethibond suture. The tourniquet was deflated with approximately 2 hours total tourniquet time. The second dose of IV TXA was given. A deep drain was placed exiting laterally. The subcutaneous tissues were reapproximated interrupted 2-0 Vicryl sutures. The skin was reapproximated with 3-0 subcuticular strata fix suture. Skin tape and adhesive was applied. A sterile dressing was applied. The patient was awoken from sedation and transferred to the recovery room in good condition. Blood loss was estimated at 100 mL. No complications were incurred. Sponge and needle counts were correct in the case.
--- NOTE | 2017-10-23 11:40 | XR ---
Limited right knee HISTORY: Evaluation for postop abnormality and alignment 2 views of the right knee No comparisons Patient is status post right knee arthroplasty. There is an indwelling drain. Alignment is maintained . Lucency present in the soft tissues compatible with postop state. IMPRESSION: Orthopedic follow-up.
[2017-10-23 11:44] LABS: Glucose,Whole Blood 106 mg/dL (75-99)
[2017-10-23] MEDS: traMADol 50 MG TAB PO SCH ×3 (14:01→14:03)
[2017-10-23 16:37] LABS: Glucose,Whole Blood 122 mg/dL (75-99)
[2017-10-23] MEDS: INSULIN ASPART 100 UNIT/ML 1 ML 10 ML VIAL SQ SCH ×2 (16:43→21:02)
[2017-10-23] MEDS: ceFAZolin IN SWFI 2 GM/20 ML SYRINGE IVP SCH (16:43)
--- NOTE | 2017-10-23 16:46 | P.CONS ---
History of Present Illness - Reason for Consult Recommendations regarding diabetic medications - History of Present Illness Patient is a very pleasant 46-year-old gentleman admitted for elective right knee arthroplasty successfully underwent surgery patient had a surgical drain in place patient denied any pain patient denied any fever chills nausea vomiting abdominal pain patient denied any dysuria patient is postoperative day 0. Patient uses metformin at home patient does have hyperlipidemia and type 2 diabetes mellitus. Patient will be started on sliding scale insulin patient blood sugars are well controlled. Patient was resumed on diet today. Review of Systems REVIEW OF SYSTEMS: CONSTITUTIONAL: No fever, no malaise, no fatigue. HEENT: No recent visual problems or hearing problems. Denied any sore throat. CARDIOVASCULAR: No chest pain, orthopnea, PND, no palpitations, no syncope. PULMONARY: No shortness of breath, no cough, no hemoptysis. GASTROINTESTINAL: No diarrhea, no nausea, no vomiting, no abdominal pain. Normoactive bowel sounds. NEUROLOGICAL: No headaches, no weakness, no numbness. HEMATOLOGICAL: Denies any bleeding or petechiae. GENITOURINARY: Denies any burning micturition, frequency, or urgency. MUSCULOSKELETAL/RHEUMATOLOGICAL: Denies any joint pain, swelling, or any muscle pain. ENDOCRINE: Denies any polyuria or polydipsia. The rest of the 14-point review of systems is negative. Past Medical History Past Medical History: Chest Pain / Angina, Diabetes Mellitus, GERD/Reflux, Hyperlipidemia, Hypertension, Myocardial Infarction (NH) Additional Past Medical History / Comment(s): chronic back pain, herniated discs in the neck and the back. mood disturbance. Last Myocardial Infarction Date:: 2004 History of Any Multi-Drug Resistant Organisms: None Reported Past Surgical History: Hernia Repair, Joint Replacement Additional Past Surgical History / Comment(s): rt knee arthroscopy x3, lt knee arthroscopy last date 2012,total knee replacement rt knee; cardiac stent x1 2004 , stent placed for kidney stone 07/04/2016. Kidney stent has been removed. 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 No international travel since. No animal exposures. Ongoing tobacco use. No smoking alcohol or current recreational drug use Smoking Status: Current every day smoker Past Alcohol Use History: None Reported, Rare Additional Past Alcohol Use History / Comment(s): SMOKES 1PPD SINCE AGE 23 Past Drug Use History: None Reported - Past Family History Father Family Medical History: Congestive Heart Failure (CHF), Deep Vein Thrombosis ( DVT), Myocardial Infarction (NH), Pulmonary Embolus Additional Family Medical History / Comment(s): NH at age 38. "hole in colon" Mother Family Medical History: Cancer, COPD, Diabetes Mellitus, Hyperlipidemia Additional Family Medical History / Comment(s): breast and lung cancer Sister(s) Family Medical History: Diabetes Mellitus Additional Family Medical History / Comment(s): bi-polar, anxiety. hysterectomy Brother(s) History Unknown: Yes Medications and Allergies Home Medications Medication Instructions Recorded Confirmed Type metFORMIN HCL [Glucophage] 500 mg PO DAILY@199906/10/14 10/23/17 History Montelukast Sodium [Singulair] 10 mg PO HS 06/01/16 10/23/17 History Meclizine [Antivert] 12.5 mg PO TID PRN 08/01/17 10/23/17 History Albuterol Inhaler [Ventolin Hfa 1 - 2 puff INHALATION RT-Q6H PRN 10/15/17 History Inhaler] Atorvastatin [Lipitor] 80 mg PO HS 10/15/17 10/23/17 History Baclofen [Lioresal] 10 mg PO TID 10/15/17 10/23/17 History Beclomethasone Dipropionate [Qvar 2 puff INHALATION RT-BID 10/15/17 10/23/17 History 80 mcg] Divalproex Sodium 500 mg PO TID 10/15/17 10/23/17 History Fenofibrate Nanocrystallized 145 mg PO DAILY 10/15/17 10/23/17 History [Fenofibrate] Gabapentin [Neurontin] 300 mg PO TID 10/15/17 10/23/17 History Metoprolol Succinate (ER) [Toprol 25 mg PO HS 10/15/17 10/23/17 History Xl] Venlafaxine HCl [Effexor XR] 150 mg PO HS 10/15/17 10/23/17 History traZODone HCL 150 mg PO HS 10/15/17 10/23/17 History Rivaroxaban [Xarelto] 10 mg PO DAILY #12 tab 10/23/17 Rx Allergies Allergy/AdvReac Type Severity Reaction Status Date / Time naproxen [From Naprosyn] Allergy Unknown Rash/Hives Verified 10/23/17 11:16 carrot Allergy Dyspnea Verified 10/23/17 11:16 chocolate flavor Allergy Dyspnea Verified 10/23/17 11:16 grass pollen-perennial rye, Allergy Dyspnea Verified 10/23/17 11:16 standar ibuprofen Allergy Itching Verified 10/23/17 11:16 mold Allergy Unknown Verified 10/23/17 11:16 Physical Exam Vitals: Vital Signs Temp Pulse Pulse Resp BP Pulse Ox 10/23/17 13:45 80 16 120/69 95 10/23/17 13:30 84 16 112/67 93 L 10/23/17 13:15 78 16 112/69 92 L 10/23/17 13:11 96 10/23/17 13:00 82 16 122/71 95 10/23/17 12:45 87 16 128/79 94 L 10/23/17 12:30 76 16 112/61 94 L 10/23/17 12:15 85 16 112/68 95 10/23/17 12:00 99.4 F 80 16 104/66 94 L 10/23/17 11:55 75 15 132/75 94 L 10/23/17 11:40 85 16 107/66 95 10/23/17 11:25 81 16 107/66 95 10/23/17 11:10 98.4 F 82 16 106/65 96 10/23/17 06:41 96.8 F L 69 16 107/56 95 Intake and Output 10/23/17 10/23/17 10/23/17 06:59 14:59 22:59 Intake Total 100 1771 Output Total 500 Balance 100 1271 Intake: IV 100 1411 Lactated Ringers 1,000 ml 210 @ 70 mls/hr IV .[id number] [facility] Rx#:[id number] Oral 360 Output: Urine 400 Estimated Blood Loss 100 Other: Voiding Method Indwelling Catheter Indwelling Catheter PHYSICAL EXAMINATION: GENERAL: The patient is alert and oriented x3, not in any acute distress. Well developed, well nourished. HEENT: Pupils are round and equally reacting to light. EOMI. No scleral icterus. No conjunctival pallor. Normocephalic, atraumatic. No pharyngeal erythema. No thyromegaly. CARDIOVASCULAR: S1 and S2 present. No murmurs, rubs, or gallops. PULMONARY: Chest is clear to auscultation, no wheezing or crackles. ABDOMEN: Soft, nontender, nondistended, normoactive bowel sounds. No palpable organomegaly. MUSCULOSKELETAL: Deferred to orthopedic surgery patient has surgical drain placed left knee postsurgically packed EXTREMITIES: No cyanosis, clubbing, or pedal edema. NEUROLOGICAL: Gross neurological examination did not reveal any focal deficits. SKIN: No rashes. Results Labs: Abnormal Lab Results - Last 24 Hours (Table) 10/23/17 10/23/17 Range/Units 11:40 16:34 POC Glucose (mg/dL) 106 H 122 H (75-99) mg/dL Assessment and Plan Plan: -Type 2 diabetes mellitus: Hold off on metformin patient when sliding scale insulin. -Hyperlipidemia resume her home medications -Left knee arthroplasty postoperative day 0: Pain management and DVT prophylaxis per primary service -Gastroesophageal reflux disease -Depression For above-mentioned chronic medical problems patient will be resumed on appropriate home medications. Patient medication reconciliation was reviewed
[2017-10-23 20:30] LABS: Glucose,Whole Blood 136 mg/dL (75-99)
[2017-10-23] MEDS ORDERED: SENNOSIDES-DOCUSATE SODIUM 1 EACH TAB PO SCH (21:00)
[2017-10-23] MEDS: DIVALPROEX 500 MG TABLET.DR PO SCH (21:08)
[2017-10-23] MEDS: BACLOFEN 10 MG TAB PO SCH (21:08)
[2017-10-23] MEDS: GABAPENTIN 300 MG CAP PO SCH (21:08)
[2017-10-24] MEDS: ceFAZolin IN SWFI 2 GM/20 ML SYRINGE IVP SCH (00:31)
--- NOTE | 2017-10-24 06:03 | P.PN ---
Progress Note - Text Progress Note Date: 10/24/17 46 yo male status post revision total Right knee replacement. Patient received the adductor canal catheter. Ropivacaine 0.2% at 8 mls/hr. Patient was seen today at 6:45 AM. Patient was sitting in bed comfortably. VAS score of 0/10 no complains overnight. Assessment and plan: patient will be sent home with the adductor canal pump. Adequate pain control.
[2017-10-24 07:35] LABS: Glucose,Whole Blood 90 mg/dL (75-99)
[2017-10-24 08:08] LABS: Basophils % (A) 0 %; Eosinophils # (A) 0.1 k/uL (0-0.7); Eosinophils % (A) 2 %; HCT 37.6 % (39.0-53.0); Lymphocytes # (A) 1.7 k/uL (1.0-4.8); Lymphocytes % (A) 25 %; MCH 31.4 pg (25.0-35.0); MCHC 34.7 g/dL (31.0-37.0); MCV 90.5 fL (80.0-100.0); Mean Platelet Volume 6.9; Monocytes # (A) 0.5 k/uL (0-1.0); Monocytes % (A) 7 %; Neutrophils # (A) 4.6 k/uL (1.3-7.7); Neutrophils % (A) 65 %; Platelet Count 137 k/uL (150-450); RBC 4.16 m/uL (4.30-5.90); RDW 13.4 % (11.5-15.5)
[2017-10-24] MEDS: INSULIN ASPART 100 UNIT/ML 1 ML 10 ML VIAL SQ SCH ×3 (08:56→18:20)
[2017-10-24] MEDS: GABAPENTIN 300 MG CAP PO SCH ×2 (08:58→15:26)
[2017-10-24] MEDS: BACLOFEN 10 MG TAB PO SCH ×2 (08:58→15:26)
[2017-10-24] MEDS: DIVALPROEX 500 MG TABLET.DR PO SCH ×2 (08:58→15:26)
[2017-10-24] MEDS: traMADol 50 MG TAB PO SCH ×2 (08:59→12:52)
[2017-10-24] MEDS ORDERED: RIVAROXABAN 10 MG TAB PO SCH (09:00)
[2017-10-24 11:37] LABS: Glucose,Whole Blood 114 mg/dL (75-99)
--- NOTE | 2017-10-24 12:04 | P.PN ---
Subjective Progress Note Date: 10/24/17 Principal diagnosis: Status post revision right total knee arthroplasty Patient is seen today resting in his hospital bed, he appears comfortable. His pain is well-controlled at this time. He denies any headaches, lightheadedness , chest pain or shortness of breath. Objective - Vital Signs Vital signs: Vital Signs Temp 98.6 F 10/24/17 10:11 Pulse 97 10/24/17 10:11 Resp 18 10/24/17 11:24 BP 113/74 10/24/17 10:11 Pulse Ox 97 10/24/17 11:43 Intake & Output 10/23/17 10/24/17 10/24/17 18:59 06:59 18:59 Intake Total 1771 1910 Output Total 690 2100 Balance 1081 -190 Intake: IV 1411 560 Lactated Ringers 1,000 ml 210 560 @ 70 mls/hr IV .[id number] [facility] Rx#:[id number] Intake, IV Titration 500 Amount Lactated Ringers 1,000 ml 500 @ 70 mls/hr IV .[id number] [facility] Rx#:[id number] Oral 360 850 Output: Drainage 190 500 Right Knee 190 500 Urine 400 1600 Estimated Blood Loss 100 Other: Voiding Method Indwelling Catheter Indwelling Catheter - Exam Right lower extremity: Incision is clean, dry, and intact. The prineo tape is in good condition. There is minimal soft tissue swelling and ecchymosis surrounding the medial and lateral aspects of the incision. Calf is soft, no tenderness with palpation. Plantar flexion, dorsiflexion, EHL, FHL are intact. Sensory exam to light touch throughout the extremity is intact, dorsal pedis pulses 2+. - Labs CBC & Chem 7: 10/24/17 07:45 Labs: Abnormal Lab Results - Last 24 Hours (Table) 10/23/17 10/23/17 10/24/17 Range/Units 16:34 20:21 07:45 RBC 4.16 L (4.30-5.90) m/uL Hct 37.6 L (39.0-53.0) % Plt Count 137 L (150-450) k/uL POC Glucose (mg/dL) 122 H 136 H (75-99) mg/dL 10/24/17 Range/Units 11:32 RBC (4.30-5.90) m/uL Hct (39.0-53.0) % Plt Count (150-450) k/uL POC Glucose (mg/dL) 114 H (75-99) mg/dL Assessment and Plan Plan: Assessment: 1. Postop day #1 status post revision right total knee arthroplasty Plan: Pain control, we will discharge home on oral medication GI and DVT prophylaxis, discharged on Xarelto 10 mg once a day for 12 days Daily dressing changes, wound care was discussed, including showering instructions Icing and elevating techniques discussed, home CPM use Home therapy and nursing after discharge Medical recommendations Patient stable for discharge home today Time with Patient: Less than 30
--- NOTE | 2017-10-24 12:08 | P.DS ---
Providers Date of admission: 10/23/17 06:08 Expected date of discharge: 10/24/17 Attending physician: Ramon Ward Consults: 10/23/17 10:49 Consult Physician Routine Consulting Provider: Mine Walsh Consult Reason/Comments: medical management Do you want consulting provider notified?: Yes Primary care physician: Nico Blount [facility] Course: Date of admission: 10/23/2017 Date of discharge: 10/24/2017 Admission diagnosis: Status post revision right total knee arthroplasty Discharge diagnosis: Same Attending physician: Dr. Ward Surgical procedures: Revision right total knee arthroplasty Brief history: Patient is a 46-year-old male with a history of with painful right total knee arthroplasty. At this point patient has failed conservative treatment measures and has opted to proceed with a elective revision right total knee arthroplasty. Hospital course: Details of patient's surgery can be found in operative report. Patient tolerated the procedure well and was subsequently transported to orthopedic floor. Patient's orthopeidc and medical care was provided daily. Patient had daily laboratory tests performed for evaluation of overall blood counts. Patient had daily physical therapy to include strengthening range of motion as well as education with walker ambulation. Patient had daily CPM usage as part of their physical therapy program. Patient was treated with Xarelto for their postoperative DVT prophylaxis during their inpatient stay. Patient was noted to have a relatively uneventful postoperative course. Patient reported satisfactory pain control with oral pain medications by postoperative day 0. Patient showed satisfactory progress with physical therapy. Patient moved steadily through the program and had no difficulty meeting the goals by postoperative day 1. Given patient's otherwise satisfactory course and having met physical therapy goals, plan is to discharge patient home on postoperative day 1. Discharge condition/disposition: Patient will be discharged home in stable condition. Discharge medications: Instructions are given on resumption of patient's normal daily medications per primary care recommendation, in addition patient will be prescribed [place] 7.5 mg/325 mg, tramadol 50 mg, Colace 100 mg, Xarelto 10 mg. Discharge instructions: 1. Wound care and infection precautions, keep incision dry and covered while showering, no lotions, creams, moisturizers. No soaking, tubs, pools, hottubs. Do not scrub over the incision. 2. Weight-bear as tolerated with walker / cane until follow-up. 3. Ice and elevate when necessary. Do not exceed 20 minutes per hour with ice pack. 4. Utilize compression sleeve until seen at first follow up appointment. 5. Visiting nursing care. 6. Home physical therapy including home CPM. 7. Pain meds and anticoagulants per prescription. 8. Pain medication has potential to cause constipation. Increase oral fluid and fiber intake. Contact primary care provider if you have not had a bowel movement within 48 hours after discharge 9. No anti-inflammatory medication until discussed at first post operative visit, this including Motrin, Aleve, Mobic, Diclofenac. 10. Follow up in office at 2 weeks postop with Thee Unger PA-C 11. Follow up with your primary care doctor 7-10 days after discharge. 12. Contact [facility] with any questions, . Procedures: Revision right total knee arthroplasty Patient Condition at Discharge: Good Plan - Discharge Summary Discharge Rx Participant: Yes New Discharge Prescriptions: New Rivaroxaban [Xarelto] 10 mg PO DAILY #12 tab Docusate [Colace] 100 mg PO DAILY #30 capsule HYDROcodone/APAP 7.5-325MG [[place] 7.5] 1 - 2 each PO Q6HR PRN #30 tab PRN Reason: Pain traMADol HCl [Ultram] 50 mg PO Q6H PRN #30 tab PRN Reason: Pain No Action metFORMIN HCL [Glucophage] 500 mg PO DAILY@1999 Montelukast Sodium [Singulair] 10 mg PO HS Meclizine [Antivert] 12.5 mg PO TID PRN PRN Reason: Vertigo Albuterol Inhaler [Ventolin Hfa Inhaler] 1 - 2 puff INHALATION RT-Q6H PRN PRN Reason: Shortness Of Breath Metoprolol Succinate (ER) [Toprol Xl] 25 mg PO HS Baclofen [Lioresal] 10 mg PO TID Atorvastatin [Lipitor] 80 mg PO HS traZODone HCL 150 mg PO HS Venlafaxine HCl [Effexor XR] 150 mg PO HS Gabapentin [Neurontin] 300 mg PO TID Fenofibrate Nanocrystallized [Fenofibrate] 145 mg PO DAILY Divalproex Sodium 500 mg PO TID Beclomethasone Dipropionate [Qvar 80 mcg] 2 puff INHALATION RT-BID Discharge Medication List metFORMIN HCL [Glucophage] 500 mg PO DAILY@2000 01/14/15 [History] Montelukast Sodium [Singulair] 10 mg PO HS 06/01/16 [History] Meclizine [Antivert] 12.5 mg PO TID PRN 08/01/17 [History] Albuterol Inhaler [Ventolin Hfa Inhaler] 1 - 2 puff INHALATION RT-Q6H PRN [History] Atorvastatin [Lipitor] 80 mg PO HS 10/15/17 [History] Baclofen [Lioresal] 10 mg PO TID 10/15/17 [History] Beclomethasone Dipropionate [Qvar 80 mcg] 2 puff INHALATION RT-BID 10/15/17 [ History] Divalproex Sodium 500 mg PO TID 10/15/17 [History] Fenofibrate Nanocrystallized [Fenofibrate] 145 mg PO DAILY 10/15/17 [History] Gabapentin [Neurontin] 300 mg PO TID 10/15/17 [History] Metoprolol Succinate (ER) [Toprol Xl] 25 mg PO HS 10/15/17 [History] Venlafaxine HCl [Effexor XR] 150 mg PO HS 10/15/17 [History] traZODone HCL 150 mg PO HS 10/15/17 [History] Rivaroxaban [Xarelto] 10 mg PO DAILY #12 tab 10/23/17 [Rx] Docusate [Colace] 100 mg PO DAILY #30 capsule 10/24/17 [Rx] HYDROcodone/APAP 7.5-325MG [[place] 7.5] 1 - 2 each PO Q6HR PRN #30 tab 10/24/17 [ Rx] traMADol HCl [Ultram] 50 mg PO Q6H PRN #30 tab 10/24/17 [Rx] Follow up Appointment(s)/Referral(s): [facility], [NON-STAFF] - Mine Walsh MD [Primary Care Provider] - 10/31/17 1:40 pm Fili Unger PAC [PHYSICIAN VOCATIONAL REHABILITATION TECHNICIAN] - 11/07/17 2:30 pm Activity/Diet/Wound Care/Special Instructions: Orthopedic Discharge Instructions: 1. Wound care and infection precautions, keep incision dry and covered while showering, no lotions, creams, moisturizers. No soaking, pools, hot tubs. Do not scrub over incision. 2. Weight-bear as tolerated with walker / cane until follow-up. 3. Ice and elevate when necessary. Do not exceed 20 minutes per hour with ice pack. 4. Utilize compression sleeve until seen at first follow up appointment. 5. Visiting nursing care. 6. Home physical therapy including home CPM. 7. Pain meds and anticoagulants per prescription. 8. Pain medication has potential to cause constipation. Increase oral fluid and fiber intake. Contact primary care provider if you have not had a bowel movement within 48 hours after discharge. 9. No anti-inflammatory medication until discussed at first post operative visit, this including Motrin, Aleve, Mobic, Diclofenac. 10. Follow up in office at 2 weeks postop with Thee Unger PA-C 11. Follow up with your primary care doctor 7-10 days after discharge. 12. Contact [facility] with any questions, . Discharge Disposition: HOME WITH HOME HEALTH SERVICES
[2017-10-24] MEDS: LACTATED RINGERS 1,000 ML IV SCH ×2 (12:47→13:55)
[2017-10-24 14:53] VITALS: BP 126/73; PULSE 101; RESP 18; TEMP 99.3
[2017-10-24 17:02] LABS: Glucose,Whole Blood 97 mg/dL (75-99)
[2017-10-24 19:38] LABS: Hemoglobin A1C 5.2 % (4.0-6.0)
== END 2017-10-24 18:15 | disposition home or self-care (01) | DRG 468 ==
LOC: 2ORMAIN 06:08 → 3SUR 11:03
PROVIDERS: ADMIT Orthopaedic Surgery; ATTEND Orthopaedic Surgery
PROC: 0SPC0JZ Removal of Synthetic Substitute from Right Knee Joint, Open Approach (ICD-10-PCS; principal; 2017-10-23 08:00)
PROC: 0SRC0J9 Replacement of Right Knee Joint with Synthetic Substitute, Cemented, Open Approach (ICD-10-PCS; principal; 2017-10-23 08:00)
DX: T84.032A Mechanical loosening of internal right knee prosthetic joint, initial encounter (principal); E11.9 Type 2 diabetes mellitus without complications; E78.5 Hyperlipidemia, unspecified; F17.200 Nicotine dependence, unspecified, uncomplicated; F31.9 Bipolar disorder, unspecified; I10 Essential (primary) hypertension; I25.2 Old myocardial infarction; J45.909 Unspecified asthma, uncomplicated; K21.9 Gastro-esophageal reflux disease without esophagitis; Y83.1 Surgical operation with implant of artificial internal device as the cause of abnormal reaction of the patient, or of later complication, without mention of misadventure at the time of the procedure; Z79.01 Long term (current) use of anticoagulants; Z79.84 Long term (current) use of oral hypoglycemic drugs; Z79.899 Other long term (current) drug therapy; Z80.1 Family history of malignant neoplasm of trachea, bronchus and lung; Z82.49 Family history of ischemic heart disease and other diseases of the circulatory system; Z82.5 Family history of asthma and other chronic lower respiratory diseases; Z83.3 Family history of diabetes mellitus; Z87.442 Personal history of urinary calculi; Z95.5 Presence of coronary angioplasty implant and graft; Z79.52 Long term (current) use of systemic steroids; Z88.6 Allergy status to analgesic agent; Z88.8 Allergy status to other drugs, medicaments and biological substances; Z91.018 Allergy to other foods; G47.33 Obstructive sleep apnea (adult) (pediatric); M46.90 Unspecified inflammatory spondylopathy, site unspecified
CPT/HCPCS: 83036; 85025; 94760

== ENCOUNTER → 2017-12-25 | Outpatient (CLI) | payer MEDICARE, OTHER ==
--- NOTE | 2017-12-25 15:05 | PN ---
PROGRESS NOTE This patient is coming in for compliancy followup regarding obstructive sleep apnea. He is 47 years old and he has been diagnosed having severe obstructive sleep apnea with an AHI of 37 and he is currently on CPAP pressure of 9 cm of water. On today's evaluation, the patient has been very compliant with CPAP machine and he has been using every night. He is very happy with the overall clinical response and the patient's sleep quality is improved and the patient is waking up much more alert and refreshed during the day. He is averaging around 9 hours of CPAP use per night, his compliancy for more than 4 hours of CPAP use 100%. His leak factor is 8 L/minutes. His AHI while on treatment is down to 4.5. No central events. The patient is utilizing a Simplex full-face mask. His weight is stable around 203 and the patient has undergone a knee surgery at [facility]. He is under the care of Dr. Knapp regarding chronic pain. No other new complaints for now. REVIEW OF SYSTEMS: A 12-point review of system was done. Positive findings are mentioned above in history of present illness. He has chronic anxiety and bipolar disorder. He also has chronic back pain. He has a spinal stimulator in place. PHYSICAL EXAMINATION: BP is 124/77, pulse 74, respirations 16, weight is 203, temperature 98.5, saturation 98% on room air. GENERAL APPEARANCE: Calm, comfortable. Head is atraumatic, normocephalic. NECK: Supple. No JVD. No goiter or neck masses. LUNGS: Clear to auscultation. HEART: Sounds regular rate and rhythm. Normal S1, S2. No S3. No murmurs. ABDOMEN: Soft, nontender. No organomegaly. EXTREMITIES: No edema. No cyanosis or clubbing. IMPRESSION: 1. Severe symptomatic obstructive sleep apnea AHI of 37 worse while supine. The patient is currently on CPAP pressure of 9 with excellent clinical response and compliance. 2. Chronic hypersomnia improving and the patient's [place] score is down to 4. 3. Chronic back pain. 4. Hyperlipidemia. 5. Chronic generalized anxiety disorder. 6. Bipolar disorder. 7. Diabetes. 8. Hyperlipidemia. PLAN: 1. Encourage further weight loss. The patient has lost 3 pounds. 2. Continue CPAP therapy at a pressure of 9. 3. Continue using the Simplus full-face mask. 4. Patient is benefitting from the treatment. 5. Compliance data showed excellent use. 6. See me back in a year's time or earlier if needed. MMODL / IJN: [id number] /
== END ==
LOC: SLEEP 14:08
PROVIDERS: ATTEND Internal Medicine Critical Care Medicine
DX: G47.33 Obstructive sleep apnea (adult) (pediatric) (principal); G89.29 Other chronic pain; M54.5 Low back pain; E78.5 Hyperlipidemia, unspecified; F41.1 Generalized anxiety disorder; F31.9 Bipolar disorder, unspecified; E11.9 Type 2 diabetes mellitus without complications; Z99.89 Dependence on other enabling machines and devices

== ENCOUNTER 2017-12-27 22:11 | Emergency (ER) | payer MEDICARE, OTHER ==
[2017-12-27 22:41] VITALS: TEMP 98.3
--- NOTE | 2017-12-28 01:35 | XR ---
EXAMINATION TYPE: XR thoracic spine complete DATE OF EXAM: 12/28/2017 COMPARISON: NONE HISTORY: Back pain TECHNIQUE: 3 views FINDINGS: The vertebra have normal spacing and alignment. Posterior elements are intact. There is jazmyn rostimulator in the mid thoracic spine. There is neurostimulator in the lower cervical spine. There i s no paraspinal mass. There is no compression fracture. IMPRESSION: Negative thoracic spine exam.
[2017-12-28] MEDS ORDERED: HYDROmorphone 1 MG/ML 1 ML SYRINGE IM STA (02:03)
--- NOTE | 2017-12-28 03:40 | ED ---
General Adult HPI - General Source: patient Mode of arrival: ambulatory Limitations: no limitations <Bryanna Reyes - Last Filed: 12/28/17 03:35> <Leslie Hairston - Last Filed: 01/18/18 08:06> - General Chief complaint: Back Pain/Injury Stated complaint: Back pain Time Seen by Provider: 12/27/17 23:48 - History of Present Illness Initial comments: 47-year-old male patient who underwent temporary spinal simulator placement this morning with Dr. Knapp presents to the emergency department today for evaluation of increased upper back pain. Patient states that his recovery had been going well however tonight he had to stop his dog and the neighbor's dog from fighting. Patient states that he had increase in pain after this event. He jenelle falling down, but states that he did bend forward, grabbed his dog, and twisted away from the other dog. States the pain is radiating into his neck. States that he is unable to stand up straight due to the pain. States that it hurts to take a deep breath. He denies any increased drainage from the site. Denies any numbness or tingling radiating down his arms or to his legs. Denies any saddle anesthesia or loss of bowel or bladder control. Denies any other injuries or concerns. atient denies any headache, chest pain, shortness of breath, dizziness, weakness, abdominal pain, nausea, or vomiting. (Bryanna Reyes) - Related Data Home Medications Medication Instructions Recorded Confirmed metFORMIN HCL [Glucophage] 500 mg PO HS 06/10/14 01/04/18 Montelukast Sodium [Singulair] 10 mg PO HS 06/01/16 01/04/18 Albuterol Inhaler [Ventolin Hfa 1 - 2 puff INHALATION RT-Q6H PRN 10/15/17 Inhaler] Atorvastatin [Lipitor] 80 mg PO HS 10/15/17 01/04/18 Beclomethasone Dipropionate [Qvar 2 puff INHALATION RT-BID 10/15/17 01/04/18 80 mcg] Divalproex Sodium 500 mg PO TID 10/15/17 01/04/18 Fenofibrate Nanocrystallized 145 mg PO HS 10/15/17 01/04/18 [Fenofibrate] Gabapentin [Neurontin] 300 mg PO TID 10/15/17 01/04/18 Metoprolol Succinate (ER) [Toprol 25 mg PO HS 10/15/17 01/04/18 XL] Venlafaxine HCl [Effexor XR] 150 mg PO HS 10/15/17 01/04/18 traZODone HCL 150 mg PO HS 10/15/17 01/04/18 Previous Rx's Medication Instructions Recorded Aspirin 81 mg PO DAILY #30 chew 01/08/18 Allergies Allergy/AdvReac Type Severity Reaction Status Date / Time naproxen [From Naprosyn] Allergy Unknown Rash/Hives Verified 01/04/18 15:40 adhesive tape Allergy Rash/Hives Verified 01/04/18 15:40 carrot Allergy Dyspnea Verified 01/04/18 15:40 chocolate flavor Allergy Dyspnea Verified 01/04/18 15:40 grass pollen-perennial rye, Allergy Dyspnea Verified 01/04/18 15:40 standar ibuprofen Allergy Itching Verified 01/04/18 15:40 mold Allergy Unknown Verified 01/04/18 15:40 Review of Systems ROS Other: All systems not noted in ROS Statement are negative. <Bryanna Reyes - Last Filed: 12/28/17 03:35> ROS Other: All systems not noted in ROS Statement are negative. <Leslie Hairston - Last Filed: 01/18/18 08:06> ROS Statement: Those systems with pertinent positive or pertinent negative responses have been documented in the HPI. Past Medical History Past Medical History: Chest Pain / Angina, Diabetes Mellitus, GERD/Reflux, Hyperlipidemia, Hypertension, Myocardial Infarction ([place]) Additional Past Medical History / Comment(s): chronic back pain, herniated discs in the neck and the back. mood disturbance. Last Myocardial Infarction Date:: 2004 History of Any Multi-Drug Resistant Organisms: None Reported Past Surgical History: Hernia Repair, Joint Replacement Additional Past Surgical History / Comment(s): rt knee arthroscopy x3, lt knee arthroscopy last date 2012,total knee replacement rt knee; cardiac stent x1 2004 , stent placed for kidney stone 07/04/2016. Kidney stent has been removed. COLONOSCOPY Past Anesthesia/Blood Transfusion Reactions: No Reported Reaction Date of Last Stent Placement:: 2004 Past Psychological History: Anxiety, Bipolar, Depression Smoking Status: Current every day smoker Past Alcohol Use History: None Reported, Rare Past Drug Use History: None Reported - Past Family History Father Family Medical History: Congestive Heart Failure (CHF), Deep Vein Thrombosis ( DVT), Myocardial Infarction ([place]), Pulmonary Embolus Additional Family Medical History / Comment(s): [place] at age 38. "hole in colon" Mother Family Medical History: Cancer, COPD, Diabetes Mellitus, Hyperlipidemia Additional Family Medical History / Comment(s): breast and lung cancer Sister(s) Family Medical History: Diabetes Mellitus Additional Family Medical History / Comment(s): bi-polar, anxiety. hysterectomy Brother(s) History Unknown: Yes <Bryanna Reyes M - Last Filed: 12/28/17 03:35> General Exam Limitations: no limitations General appearance: alert, in no apparent distress, other (This is a well- developed, well-nourished adult male patient in no acute distress. Vital signs upon presentation are temperature 98.3F, pulse 92, respirations 18, blood pressure 131/83, pulse ox 97% on room air.) Eye exam: Present: normal appearance, PERRL, EOMI. Absent: scleral icterus, conjunctival injection, periorbital swelling ENT exam: Present: normal exam, normal oropharynx, mucous membranes moist Neck exam: Present: normal inspection, full ROM. Absent: tenderness, meningismus, lymphadenopathy Respiratory exam: Present: normal lung sounds bilaterally. Absent: respiratory distress, wheezes, rales, rhonchi, stridor Cardiovascular Exam: Present: regular rate, normal rhythm, normal heart sounds. Absent: systolic murmur, diastolic murmur, rubs, gallop, clicks GI/Abdominal exam: Present: soft, normal bowel sounds. Absent: distended, tenderness, guarding, rebound, rigid Extremities exam: Present: normal inspection, full ROM, normal capillary refill. Absent: tenderness, pedal edema, joint swelling, calf tenderness Back exam: Present: other (Large bulky dressing noted to the upper back, there is presence of drainage over about half of the dressing, no leakage. No surrounding erythema or swelling. ) Neurological exam: Present: alert, oriented X3, CN II-XII intact, other ( Strength in all four extremities is 5/5. ) Psychiatric exam: Present: normal affect, normal mood Skin exam: Present: warm, dry, intact, normal color. Absent: rash <Román Reyesina M - Last Filed: 12/28/17 03:35> Vital Signs 12/27/17 12/28/17 22:38 06:02 Temperature 98.3 F Pulse Rate 92 89 Respiratory 18 16 Rate Blood Pressure 131/83 128/61 O2 Sat by Pulse 97 96 Oximetry Medical Decision Making <Bryanna Reyes M - Last Filed: 12/28/17 03:35> <Leslie Hairston - Last Filed: 01/18/18 08:06> - Medical Decision Making I personally saw and examined the patient. I reviewed and agree with the mid- level provider findings including all diagnostic interpretations and treatment plans as written unless otherwise stated. I was present for moran portions of any procedures performed. I discussed the patient care with the patient's neurosurgeon Dr. Knapp however he states that the leads from the stimulant or should be in the cervical spine or thoracic spine. He requests that they be removed. He gave me specific directions to cut a suture on each lead, have the patient sitting or standing in a bent forward position and pulled the leads and a caudal direction. I was able to do this, the patient tolerated this very well and reported near immediate improvement in his discomfort after the leads were removed. Dr. Knapp said the patient can follow up with him in office. (Leslie Hairston) Disposition <Bryanna Reyes - Last Filed: 12/28/17 03:35> Is patient prescribed a controlled substance at d/c from ED?: No Time of Disposition: 05:59 <Leslie Hairston - Last Filed: 01/18/18 08:06> Clinical Impression: Malfunction of nerve stimulator lead Disposition: HOME SELF-CARE Condition: Good Instructions: Chronic Back Pain (ED) Referrals: Mine Walsh MD [Primary Care Provider] - 1-2 days Renee Knapp MD [STAFF PHYSICIAN] - 1-2 days
[2017-12-28 06:02] VITALS: BP 128/61; PULSE 89; RESP 16
== END 2017-12-28 06:11 | disposition home or self-care (01) ==
LOC: EC 22:11
DX: T85.112A Breakdown (mechanical) of implanted electronic neurostimulator of spinal cord electrode (lead), initial encounter (principal); E78.5 Hyperlipidemia, unspecified; I10 Essential (primary) hypertension; E11.9 Type 2 diabetes mellitus without complications; G89.29 Other chronic pain; F31.9 Bipolar disorder, unspecified; F41.9 Anxiety disorder, unspecified; I25.2 Old myocardial infarction; F17.200 Nicotine dependence, unspecified, uncomplicated; Z79.51 Long term (current) use of inhaled steroids; Z79.84 Long term (current) use of oral hypoglycemic drugs; Z79.899 Other long term (current) drug therapy; Z88.6 Allergy status to analgesic agent; Z91.02 Food additives allergy status; Z91.018 Allergy to other foods; Z91.048 Other nonmedicinal substance allergy status; Z86.79 Personal history of other diseases of the circulatory system
CPT/HCPCS: 99283 ×2; 96372 ×2; 72072; J1170

== ENCOUNTER 2018-01-04 14:33 | Inpatient (IN) | payer MEDICARE, OTHER ==
[2018-01-04] MEDS ORDERED: ASPIRIN 81 MG PO STA (14:44)
[2018-01-04] MEDS ORDERED: NITROGLYCERIN OINT 1 INCH/GM PACKET TOPICAL STA (14:44)
--- NOTE | 2018-01-04 14:50 | ED ---
General Adult HPI - General Stated complaint: Chest Pain Time Seen by Provider: 01/04/18 14:35 Source: RN notes reviewed - History of Present Illness Initial comments: This is a 47-year-old male who comes emergency Department complaining of a half hour of chest pain which radiates on the left arm. Patient states she's also been mildly short of breath. Patient states she's had a previous stent and a heart attack in the past. Patient denies any recent fever chills or cough. Patient denies any lightheadedness or dizziness. Patient denies any abdominal pain patient denies nausea vomiting diarrhea. Patient states this is typical of his angina except that it radiated to his jaw and arm and that is not normal. Patient denied any diaphoretic episodes. - Related Data Home Medications Medication Instructions Recorded Confirmed metFORMIN HCL [Glucophage] 500 mg PO DAILY@199906/10/14 10/23/17 Montelukast Sodium [Singulair] 10 mg PO HS 06/01/16 10/23/17 Meclizine [Antivert] 12.5 mg PO TID PRN 08/01/17 10/23/17 Albuterol Inhaler [Ventolin Hfa 1 - 2 puff INHALATION RT-Q6H PRN 10/15/17 Inhaler] Atorvastatin [Lipitor] 80 mg PO HS 10/15/17 10/23/17 Baclofen [Lioresal] 10 mg PO TID 10/15/17 10/23/17 Beclomethasone Dipropionate [Qvar 2 puff INHALATION RT-BID 10/15/17 10/23/17 80 mcg] Divalproex Sodium 500 mg PO TID 10/15/17 10/23/17 Fenofibrate Nanocrystallized 145 mg PO DAILY 10/15/17 10/23/17 [Fenofibrate] Gabapentin [Neurontin] 300 mg PO TID 10/15/17 10/23/17 Metoprolol Succinate (ER) [Toprol 25 mg PO HS 10/15/17 10/23/17 Xl] Venlafaxine HCl [Effexor XR] 150 mg PO HS 10/15/17 10/23/17 traZODone HCL 150 mg PO HS 10/15/17 10/23/17 Previous Rx's Medication Instructions Recorded Rivaroxaban [Xarelto] 10 mg PO DAILY #12 tab 05/29/18 Docusate [Colace] 100 mg PO DAILY #30 capsule 10/24/17 HYDROcodone/APAP 7.5-325MG [[place] 1 - 2 each PO Q6HR PRN #30 tab 10/24/17 7.5] traMADol HCl [Ultram] 50 mg PO Q6H PRN #30 tab 10/24/17 Allergies Allergy/AdvReac Type Severity Reaction Status Date / Time naproxen [From Naprosyn] Allergy Unknown Rash/Hives Verified 12/27/17 22:41 adhesive tape Allergy Rash/Hives Verified 01/04/18 14:37 carrot Allergy Dyspnea Verified 12/27/17 22:41 chocolate flavor Allergy Dyspnea Verified 12/27/17 22:41 grass pollen-perennial rye, Allergy Dyspnea Verified 12/27/17 22:41 standar ibuprofen Allergy Itching Verified 12/27/17 22:41 mold Allergy Unknown Verified 12/27/17 22:41 Review of Systems ROS Statement: Those systems with pertinent positive or pertinent negative responses have been documented in the HPI. ROS Other: All systems not noted in ROS Statement are negative. Past Medical History Past Medical History: Chest Pain / Angina, Diabetes Mellitus, GERD/Reflux, Hyperlipidemia, Hypertension, Myocardial Infarction ([place]) Additional Past Medical History / Comment(s): chronic back pain, herniated discs in the neck and the back. mood disturbance. Last Myocardial Infarction Date:: 2004 History of Any Multi-Drug Resistant Organisms: None Reported Past Surgical History: Hernia Repair, Joint Replacement Additional Past Surgical History / Comment(s): rt knee arthroscopy x3, lt knee arthroscopy last date 2012,total knee replacement rt knee; cardiac stent x1 2004 , stent placed for kidney stone 07/04/2016. Kidney stent has been removed. COLONOSCOPY Past Anesthesia/Blood Transfusion Reactions: No Reported Reaction Date of Last Stent Placement:: 2004 Past Psychological History: Anxiety, Bipolar, Depression Smoking Status: Current every day smoker Past Alcohol Use History: None Reported, Rare Past Drug Use History: None Reported - Past Family History Father Family Medical History: Congestive Heart Failure (CHF), Deep Vein Thrombosis ( DVT), Myocardial Infarction ([place]), Pulmonary Embolus Additional Family Medical History / Comment(s): [place] at age 38. "hole in colon" Mother Family Medical History: Cancer, COPD, Diabetes Mellitus, Hyperlipidemia Additional Family Medical History / Comment(s): breast and lung cancer Sister(s) Family Medical History: Diabetes Mellitus Additional Family Medical History / Comment(s): bi-polar, anxiety. hysterectomy Brother(s) History Unknown: Yes General Exam - General Exam Comments Initial Comments: GENERAL: Patient is well-developed and well-nourished. Patient is nontoxic and well- hydrated and is in mild distress. ENT: Neck is soft and supple. No significant lymphadenopathy is noted. Oropharynx is clear. Moist mucous membranes. Neck has full range of motion without eliciting any pain. EYES: The sclera were anicteric and conjunctiva were pink and moist. Extraocular movements were intact and pupils were equal round and reactive to light. Eyelids were unremarkable. PULMONARY: Unlabored respirations. Good breath sounds bilaterally. No audible rales rhonchi or wheezing was noted. CARDIOVASCULAR: There is a regular rate and rhythm without any murmurs gallops or rubs. ABDOMEN: Soft and nontender with normal bowel sounds. No palpable organomegaly was noted. There is no palpable pulsatile mass. SKIN: Skin is clear with no lesions or rashes and otherwise unremarkable. NEUROLOGIC: Patient is alert and oriented x3. Cranial nerves II through XII are grossly intact. Motor and sensory are also intact. Normal speech, volume and content. Symmetrical smile. MUSCULOSKELETAL: Normal extremities with adequate strength and full range of motion. LYMPHATICS: No significant lymphadenopathy is noted PSYCHIATRIC: Normal psychiatric evaluation. Normal interpersonal interactions appears functionally intact in deals appropriately with others. No signs of depression. No signs of anxiety. Course Vital Signs 01/04/18 14:40 Temperature 98.1 F Pulse Rate 68 Respiratory 18 Rate Blood Pressure 116/82 O2 Sat by Pulse 98 Oximetry Medical Decision Making - Medical Decision Making EKG shows normal sinus rhythm at 80 bpm ME interval is 168 QRSs 80 QT interval 364 QTC is 419. EKG shows no ST segment elevation or depression. Chest x-ray shows no acute abnormality Patient was having unstable angina like symptoms I started patient on heparin. I spoke with Dr. Coto he agreed to admit the patient admitted the patient I wrote admitting orders. I continue the heparin Nitropaste and aspirin on the floor. I consult cardiology. - Lab Data Result diagrams: 01/04/18 15:07 Lab Results 01/04/18 01/04/18 Range/Units 15:07 15:07 WBC 4.2 (3.8-10.6) k/uL RBC 4.78 (4.30-5.90) m/uL Hgb 13.1 (13.0-17.5) gm/dL Hct 39.4 (39.0-53.0) % MCV 82.5 (80.0-100.0) fL MCH 27.4 (25.0-35.0) pg MCHC 33.2 (31.0-37.0) g/dL RDW 14.6 (11.5-15.5) % Plt Count 198 (150-450) k/uL Neutrophils % 64 % Lymphocytes % 23 % Monocytes % 8 % Eosinophils % 2 % Basophils % 1 % Neutrophils # 2.7 (1.3-7.7) k/uL Lymphocytes # 1.0 (1.0-4.8) k/uL Monocytes # 0.4 (0-1.0) k/uL Eosinophils # 0.1 (0-0.7) k/uL Basophils # 0.0 (0-0.2) k/uL PT 10.1 (9.0-12.0) sec INR 1.0 (<1.2) APTT 22.1 (22.0-30.0) sec Disposition Clinical Impression: Unstable angina pectoris Disposition: ADMITTED IP TO THIS HOSP Referrals: Mine Walsh MD [Primary Care Provider] - 1-2 days Time of Disposition: 15:40
[2018-01-04 15:27] LABS: Basophils % (A) 1 %; Eosinophils # (A) 0.1 k/uL (0-0.7); Eosinophils % (A) 2 %; HCT 39.4 % (39.0-53.0); HGB 13.1 gm/dL (13.0-17.5); Lymphocytes % (A) 23 %; MCH 27.4 pg (25.0-35.0); MCHC 33.2 g/dL (31.0-37.0); MCV 82.5 fL (80.0-100.0); Mean Platelet Volume 7.4; Monocytes # (A) 0.4 k/uL (0-1.0); Monocytes % (A) 8 %; Neutrophils # (A) 2.7 k/uL (1.3-7.7); Neutrophils % (A) 64 %; Platelet Count 198 k/uL (150-450); RBC 4.78 m/uL (4.30-5.90); RDW 14.6 % (11.5-15.5); WBC 4.2 k/uL (3.8-10.6)
[2018-01-04 15:39] LABS: Partial Thromboplastin Time 22.1 sec (22.0-30.0); Prothrombin Time 10.1 sec (9.0-12.0)
[2018-01-04] MEDS ORDERED: NITROGLYCERIN SL TABS 0.4 MG TAB SUBLINGUAL PRN (15:41)
[2018-01-04] MEDS ORDERED: HEPARIN SOD,PORK IN 0.45% NACL 25,000 UNIT in 0.45% NACL 1 500ML.BAG IV SCH (15:45)
[2018-01-04 15:52] LABS: ALT 39 U/L (21-72); AST 19 U/L (17-59); Alkaline Phosphatase 87 U/L (38-126); Anion Gap 8 mmol/L; Blood Urea Nitrogen 12 mg/dL (9-20); Carbon Dioxide 24 mmol/L (22-30); Chloride 108 mmol/L (98-107); Creatine Kinase 35 U/L (55-170); Glucose 114 mg/dL (74-99); Potassium 4.3 mmol/L (3.5-5.1); Sodium 140 mmol/L (137-145); Total Bilirubin 0.3 mg/dL (0.2-1.3); Total Protein 6.6 g/dL (6.3-8.2)
[2018-01-04 16:04] LABS: Creatine Kinase MB 0.4 ng/mL (0.0-2.4); Troponin I <0.012 ng/mL (0.000-0.034)
--- NOTE | 2018-01-04 16:08 | XR ---
EXAMINATION TYPE: XR chest 2V DATE OF EXAM: 01/04/2018 COMPARISON: 08/01/2017 HISTORY: Chest pain TECHNIQUE: Frontal and lateral views of the chest are obtained. FINDINGS: There is no focal air space opacity, pleural effusion, or pneumothorax seen. The cardiac silhouette size is within normal limits. The osseous structures are intact. Thoracic nerve stimulat or is seen within the midthoracic posterior spinal canal. IMPRESSION: No acute cardiopulmonary process.
[2018-01-04] MEDS: HEPARIN SODIUM,PORCINE 5,000 UNIT/ML 1 ML VIAL IV ONE (16:24)
[2018-01-04 17:28] LABS: Glucose,Whole Blood 100 mg/dL (75-99)
[2018-01-04] MEDS ORDERED: ALBUTEROL NEBULIZED 2.5 MG/3 ML INHALATION PRN (18:04)
[2018-01-04] MEDS: FLUTICASONE 110 MCG INHALER INHALATION SCH (19:50)
[2018-01-04 20:25] LABS: Glucose,Whole Blood 147 mg/dL (75-99)
[2018-01-04] MEDS: DIVALPROEX 500 MG TABLET.DR PO SCH (20:33)
[2018-01-04] MEDS: metFORMIN 500 MG TAB PO SCH (20:33)
[2018-01-04] MEDS: FENOFIBRATE 160 MG TAB PO SCH (20:33)
[2018-01-04] MEDS: GABAPENTIN 300 MG CAP PO SCH (20:33)
[2018-01-04] MEDS: METOPROLOL SUCCINATE (ER) 25 MG TAB.ER.24H PO SCH (20:33)
[2018-01-04] MEDS: ATORVASTATIN 80 MG TAB PO SCH (20:33)
[2018-01-04 22:10] LABS: Creatine Kinase 28 U/L (55-170)
[2018-01-04 22:23] LABS: Creatine Kinase MB 0.5 ng/mL (0.0-2.4); Troponin I <0.012 ng/mL (0.000-0.034)
[2018-01-04] MEDS: traZODone HCL 100 MG TAB PO SCH (23:11)
[2018-01-04] MEDS: INSULIN ASPART 100 UNIT/ML 1 ML 10 ML VIAL SQ SCH (23:11)
[2018-01-04] MEDS: VENLAFAXINE HCL ER 150 MG CAP PO SCH (23:11)
[2018-01-04] MEDS: MONTELUKAST 10 MG TAB PO SCH (23:11)
[2018-01-05] MEDS: HEPARIN SODIUM,PORCINE 5,000 UNIT/ML 1 ML VIAL IV ONE (01:13)
[2018-01-05 01:36] LABS: Hemoglobin A1C 5.4 % (4.0-6.0)
[2018-01-05 03:42] LABS: Basophils % (A) 1 %; Eosinophils # (A) 0.1 k/uL (0-0.7); Eosinophils % (A) 3 %; HCT 37.6 % (39.0-53.0); HGB 12.4 gm/dL (13.0-17.5); Lymphocytes # (A) 1.7 k/uL (1.0-4.8); Lymphocytes % (A) 42 %; MCH 27.8 pg (25.0-35.0); MCHC 33.1 g/dL (31.0-37.0); MCV 83.9 fL (80.0-100.0); Mean Platelet Volume 7.1; Monocytes # (A) 0.3 k/uL (0-1.0); Monocytes % (A) 7 %; Neutrophils # (A) 1.8 k/uL (1.3-7.7); Neutrophils % (A) 46 %; Platelet Count 195 k/uL (150-450); RBC 4.48 m/uL (4.30-5.90); RDW 14.7 % (11.5-15.5)
[2018-01-05] MEDS: NITROGLYCERIN OINT 1 INCH/GM PACKET TOPICAL SCH ×4 (03:44→18:10)
[2018-01-05 03:50] LABS: Anion Gap 6 mmol/L; Blood Urea Nitrogen 14 mg/dL (9-20); Calcium 9.2 mg/dL (8.4-10.2); Carbon Dioxide 27 mmol/L (22-30); Chloride 107 mmol/L (98-107); Cholesterol 152 mg/dL (<200); Glucose 100 mg/dL (74-99); HDL Cholesterol 26 mg/dL (40-60); LDL Cholesterol,Calculated 51 mg/dL (0-99); Potassium 4.1 mmol/L (3.5-5.1); Sodium 140 mmol/L (137-145); Triglycerides 376 mg/dL (<150)
[2018-01-05 04:02] LABS: Creatine Kinase 28 U/L (55-170)
[2018-01-05 04:15] LABS: Creatine Kinase MB 0.5 ng/mL (0.0-2.4); Troponin I <0.012 ng/mL (0.000-0.034)
[2018-01-05 07:21] LABS: Glucose,Whole Blood 91 mg/dL (75-99)
[2018-01-05] MEDS: FLUTICASONE 110 MCG INHALER INHALATION SCH ×2 (08:28→20:19)
[2018-01-05] MEDS: INSULIN ASPART 100 UNIT/ML 1 ML 10 ML VIAL SQ SCH ×4 (09:13→22:11)
--- NOTE | 2018-01-05 10:25 | CONS ---
CONSULTATION Mr. Burnham is a 47-year-old gentleman who is seen for cardiac evaluation. This patient's old medical records were reviewed. The patient came to the emergency room with a complaint of chest discomfort which was in the substernal area radiating to the left arm. There was some radiation of the pain to the jaw. Patient was slightly short of breath. He did not had any nausea or vomiting. Before this patient started having a headache. This patient has a known history of coronary artery disease with a prior history of stent in 2004. The details of which are not available. He is regularly followed by Dr. Roc Menchaca. He has not seen him for about a year. The patient has a history of diabetes and hypertension. The patient is moderately active physically, has been having on and off chest pains and he has been admitted few times in the last few years with chest pains which were atypical angina. HOME MEDICATIONS: Included Glucophage, Singulair, Antivert, Ventolin, Lipitor, baclofen and QVAR, Neurontin and Toprol-XL 25 mg daily. Effexor and trazodone. PAST MEDICAL HISTORY: Includes history of chest pain, diabetes, hyperlipidemia, prior myocardial infarction and stent placement, history of knee arthroscopy, recent revision of the knee, history of kidney stones. PHYSICAL EXAMINATION: At present reveals a 47-year-old gentleman who does not appear to be in any acute distress. In the emergency room patient's vital signs were stable. The patient's blood pressure is 113/71 mmHg. Head and ENT examination negative. Neck is supple. There is no increase in jugular venous pressure. Both the carotid pulses are felt. There is no bruit. Chest is symmetrical. Heart: The PMI is not felt. First and second heart sounds are normal. Lungs are clinically clear to auscultation and percussion. Abdomen is soft. Liver and spleen not enlarged. Bowel sounds are heard. Extremities, peripheral pulses are 2+. EKG shows normal sinus rhythm without any acute ischemic changes. Cardiac enzymes are normal. The patient's triglyceride is 376 and LDL level is 51. IMPRESSION: Prolonged episode of chest pain suggestive of unstable angina syndrome. Cardiac enzymes are negative. There is no definite evidence of any ST-segment elevation myocardial infarction. I will continue the current medications. Heparin will be discontinued. In view of this patient's recurrent episodes of the chest pain and multiple risk factors, patient is advised cardiac catheterization for definitive diagnosis to rule out any significant progression in the coronary artery disease. MMODL / IJN: [id number] /
[2018-01-05] MEDS: DIVALPROEX 500 MG TABLET.DR PO SCH ×3 (11:34→22:26)
[2018-01-05] MEDS: ASPIRIN 325 MG TAB PO SCH (11:34)
[2018-01-05] MEDS: GABAPENTIN 300 MG CAP PO SCH ×3 (11:34→22:26)
[2018-01-05 11:55] LABS: Glucose,Whole Blood 135 mg/dL (75-99)
--- NOTE | 2018-01-05 15:06 | P.HPIM ---
History of Present Illness H&P Date: 01/05/18 Chief Complaint: Chest pain This is a 47-year-old male who comes emergency Department complaining of a half hour of chest pain which radiates on the left arm. Patient states she's also been mildly short of breath. Patient states she's had a previous stent and a heart attack in the past. Patient denies any recent fever chills or cough. Patient denies any lightheadedness or dizziness. Patient denies any abdominal pain patient denies nausea vomiting diarrhea. Patient states this is typical of his angina except that it radiated to his jaw and arm and that is not normal. Patient denied any diaphoretic episodes. Review of Systems 14 point review of system is unremarkable Past Medical History Past Medical History: Chest Pain / Angina, Diabetes Mellitus, GERD/Reflux, GI Bleed, Hyperlipidemia, Hypertension, Myocardial Infarction (AL), Osteoarthritis (OA), Sleep Apnea/CPAP/BIPAP Additional Past Medical History / Comment(s): chronic back pain, herniated discs in the neck and the back. mood disturbance.occ ringing in ears, " in [address] told me he heard a soft heart murmur' Last Myocardial Infarction Date:: 2004 History of Any Multi-Drug Resistant Organisms: None Reported Past Surgical History: Hernia Repair, Joint Replacement Additional Past Surgical History / Comment(s): rt knee arthroscopy x3, lt knee arthroscopy last date 2012,total rt knee replacement and a revision sx cardiac stent x1 2004, stent placed for kidney stone 07/04/2016. Kidney stent has been removed. COLONOSCOPY. neuro stimulator implants Past Anesthesia/Blood Transfusion Reactions: No Reported Reaction Date of Last Stent Placement:: 2004 Smoking Status: Current every day smoker - Past Family History Father Family Medical History: Congestive Heart Failure (CHF), Deep Vein Thrombosis ( DVT), Myocardial Infarction (AL), Pulmonary Embolus Additional Family Medical History / Comment(s): AL at age 38. "hole in colon" Mother Family Medical History: Cancer, COPD, Diabetes Mellitus, Hyperlipidemia Additional Family Medical History / Comment(s): breast and lung cancer Sister(s) Family Medical History: Diabetes Mellitus Additional Family Medical History / Comment(s): bi-polar, anxiety. hysterectomy Brother(s) History Unknown: Yes Medications and Allergies Home Medications Medication Instructions Recorded Confirmed Type metFORMIN HCL [Glucophage] 500 mg PO HS 06/10/14 01/04/18 History Montelukast Sodium [Singulair] 10 mg PO HS 06/01/16 01/04/18 History Albuterol Inhaler [Ventolin Hfa 1 - 2 puff INHALATION RT-Q6H PRN 10/15/17 History Inhaler] Atorvastatin [Lipitor] 80 mg PO HS 10/15/17 01/04/18 History Beclomethasone Dipropionate [Qvar 2 puff INHALATION RT-BID 10/15/17 01/04/18 History 80 mcg] Divalproex Sodium 500 mg PO TID 10/15/17 01/04/18 History Fenofibrate Nanocrystallized 145 mg PO HS 10/15/17 01/04/18 History [Fenofibrate] Gabapentin [Neurontin] 300 mg PO TID 10/15/17 01/04/18 History Metoprolol Succinate (ER) [Toprol 25 mg PO HS 10/15/17 01/04/18 History Xl] Venlafaxine HCl [Effexor XR] 150 mg PO HS 10/15/17 01/04/18 History traZODone HCL 150 mg PO HS 10/15/17 01/04/18 History Allergies Allergy/AdvReac Type Severity Reaction Status Date / Time naproxen [From Naprosyn] Allergy Unknown Rash/Hives Verified 01/04/18 15:40 adhesive tape Allergy Rash/Hives Verified 01/04/18 15:40 carrot Allergy Dyspnea Verified 01/04/18 15:40 chocolate flavor Allergy Dyspnea Verified 01/04/18 15:40 grass pollen-perennial rye, Allergy Dyspnea Verified 01/04/18 15:40 standar ibuprofen Allergy Itching Verified 01/04/18 15:40 mold Allergy Unknown Verified 01/04/18 15:40 Physical Exam Vitals: Vital Signs Temp Pulse Pulse Resp BP BP Pulse Ox 01/05/18 08:32 95 01/05/18 08:00 97.7 F 70 18 113/71 99 01/05/18 04:00 68 16 01/05/18 03:40 97.5 F L 72 16 113/70 97 01/05/18 00:04 97.8 F 74 16 112/56 97 01/05/18 00:00 69 16 01/04/18 20:00 98.2 F 97 18 111/63 97 01/04/18 17:10 98.3 F 79 18 128/73 98 01/04/18 16:52 72 16 122/70 99 01/04/18 15:00 82 16 122/70 97 01/04/18 14:40 98.1 F 68 18 116/82 98 Intake and Output 01/04/18 01/05/18 01/05/18 22:59 06:59 14:59 Intake Total 240 175.912 Balance 240 175.912 Intake: Intake, IV Titration 175.912 Amount Heparin Sod,Pork in 0.45% 175.912 NaCl 25,000 unit In 0.45 % NaCl 1 500ml.bag @ 11.6 UNITS/KG/HR 19.99 mls/hr IV .Q24H TABITHA Rx#: [id number] Oral 240 Other: Voiding Method Toilet Toilet Toilet # Voids 1 Weight 90.4 kg - Constitutional General appearance: Present: average body habitus, cooperative, no acute distress - EENT Eyes: Present: anicteric sclerae, EOMI, PERRLA, normal appearance ENT: Present: hearing grossly normal, normal oropharynx Ears: bilateral: normal - Neck Neck: Present: normal ROM. Absent: lymphadenopathy, rigidity, thyromegaly Carotids: negative: bruit present Thyroid: bilateral: normal size, negative: enlarged, nodule - Respiratory Respiratory: bilateral: CTA, negative: rales, rhonchi, wheezing - Cardiovascular Rhythm: regular Heart sounds: normal: S1, S2 Abnormal Heart Sounds: Absent: systolic murmur, diastolic murmur - Gastrointestinal General gastrointestinal: Present: normal bowel sounds, soft. Absent: distended , organomegaly, tenderness - Genitourinary Genitourinary Comment(s): deferred - Integumentary Integumentary: Present: normal turgor. Absent: jaundiced, rash, ulcer - Neurologic Neurologic: Present: CNII-XII intact. Absent: focal deficits - Musculoskeletal Musculoskeletal: Present: gait normal, strength equal bilaterally - Psychiatric Psychiatric: Present: A&O x's 3, appropriate affect, intact judgment & insight Results CBC & Chem 7: 01/05/18 03:16 01/05/18 03:16 Labs: Abnormal Lab Results - Last 24 Hours (Table) 01/04/18 01/04/18 01/04/18 Range/Units 15:07 15:07 17:18 Hgb (13.0-17.5) gm/dL Hct (39.0-53.0) % APTT (22.0-30.0) sec Chloride 108 H (98-107) mmol/L Glucose 114 H (74-99) mg/dL POC Glucose (mg/dL) 100 H (75-99) mg/dL Total Creatine Kinase 35 L (55-170) U/L Triglycerides (<150) mg/dL HDL Cholesterol (40-60) mg/dL 01/04/18 01/04/18 01/05/18 Range/Units 20:22 21:37 03:16 Hgb (13.0-17.5) gm/dL Hct (39.0-53.0) % APTT (22.0-30.0) sec Chloride (98-107) mmol/L Glucose (74-99) mg/dL POC Glucose (mg/dL) 147 H (75-99) mg/dL Total Creatine Kinase 28 L 28 L (55-170) U/L Triglycerides (<150) mg/dL HDL Cholesterol (40-60) mg/dL 01/05/18 01/05/18 01/05/18 Range/Units 03:16 03:16 08:18 Hgb 12.4 L (13.0-17.5) gm/dL Hct 37.6 L (39.0-53.0) % APTT 31.0 H (22.0-30.0) sec Chloride (98-107) mmol/L Glucose 100 H (74-99) mg/dL POC Glucose (mg/dL) (75-99) mg/dL Total Creatine Kinase (55-170) U/L Triglycerides 376 H (<150) mg/dL HDL Cholesterol 26 L (40-60) mg/dL Thrombosis Risk Factor Assmnt - Choose All That Apply Any of the Below Risk Factors Present?: Yes Each Factor Represents 1 point: Age 41-60 years Thrombosis Risk Factor Assessment Total Risk Factor Score: 1 Thrombosis Risk Factor Assessment Level: Low Risk Assessment and Plan Assessment: 1. Chest pain/unstable angina 2. Hypertension 3. Hyperlipidemia 4. Diabetes mellitus type 2 5. Asthma We will admit the patient to cardiac telemetry unit; monitor cardiac enzymes every 8 hours 3 along with close monitoring of EKG Start patient on IV heparin per protocol along with Nitropaste - Patient remains on aspirin, beta blockers and statins - Cut etiologies consulted for further recommendations - We will resume all home medications Further recommendations after patient seen by cardiology Time with Patient: Less than 30
--- NOTE | 2018-01-05 15:06 | ECHOF ---
Referral Reason:chest pain MEASUREMENTS -------- HEIGHT: 162.6 cm WEIGHT: 90.3 kg BP: RVIDd: 3.2 cm (< 3.3) IVSd: 1.1 cm (0.6 - 1.1) LVIDd: 4.6 cm (3.9 - 5.3) LVPWd: 1.0 cm (0.6 - 1.1) IVSs: 1.4 cm LVIDs: 2.9 cm LVPWs: 1.6 cm LA Diam: 3.8 cm (2.7 - 3.8) LAESV Index (A-L): 27.52 ml/m Ao Diam: 3.4 cm (2.0 - 3.7) AV Cusp: 2.1 cm (1.5 - 2.6) LA Diam: 4.1 cm (2.7 - 3.8) MV EXCURSION: 22.907 mm (> 18.000) MV EF SLOPE: 140 mm/s (70 - 150) EPSS: 0.3 cm MV E Estiven: 0.62 m/s MV DecT: 180 ms MV A Estiven: 0.55 m/s MV E/A Ratio: 1.12 RAP: 5.00 mmHg RVSP: 16.07 mmHg FINDINGS -------- Sinus rhythm. This was a technically good study. LV size, wall thickness and systolic function are normal, with an EF greater than 55%. The left samantha tricular size is normal. The right ventricle is normal in size. The left atrium is mildly dilated. Normal LA size by volume 22+/-6 ml/m2. The right atrial size is normal. The aortic valve is trileaflet, and appears structurally normal. No aortic stenosis or regurgitation. Mild mitral regurgitation is present. Mild tricuspid regurgitation present. There is no evidence of pulmonary hypertension. The right v entricular systolic pressure, as measured by Doppler, is 16.07mmHg. The pulmonic valve was not well visualized. The aortic root size is normal. Echo free space represents a pericardial fat pad. CONCLUSIONS -------- 1. LV size, wall thickness and systolic function are normal, with an EF greater than 55%. 2. The left ventricular size is normal. 3. The right ventricle is normal in size. 4. The left atrium is mildly dilated. 5. The right atrial size is normal. 6. The aortic valve is trileaflet, and appears structurally normal. No aortic stenosis or regurgitati on. 7. Mild mitral regurgitation is present. 8. Mild tricuspid regurgitation present. 9. There is no evidence of pulmonary hypertension. 10. The right ventricular systolic pressure, as measured by Doppler, is 16.07mmHg. 11. The pulmonic valve was not well visualized. 12. The aortic root size is normal. 13. Echo free space represents a pericardial fat pad. [employer] MANAGER: Pippa Adams RDCS
[2018-01-05 17:09] LABS: Glucose,Whole Blood 134 mg/dL (75-99)
[2018-01-05 20:47] LABS: Glucose,Whole Blood 97 mg/dL (75-99)
[2018-01-05] MEDS: traZODone HCL 100 MG TAB PO SCH (22:25)
[2018-01-05] MEDS: ATORVASTATIN 80 MG TAB PO SCH (22:25)
[2018-01-05] MEDS: metFORMIN 500 MG TAB PO SCH (22:25)
[2018-01-05] MEDS: VENLAFAXINE HCL ER 150 MG CAP PO SCH (22:25)
[2018-01-05] MEDS: METOPROLOL SUCCINATE (ER) 25 MG TAB.ER.24H PO SCH (22:26)
[2018-01-05] MEDS: FENOFIBRATE 160 MG TAB PO SCH (22:26)
[2018-01-05] MEDS: MONTELUKAST 10 MG TAB PO SCH (22:26)
[2018-01-06] MEDS: NITROGLYCERIN OINT 1 INCH/GM PACKET TOPICAL SCH ×4 (01:01→17:05)
[2018-01-06 07:00] LABS: Glucose,Whole Blood 102 mg/dL (75-99)
[2018-01-06] MEDS: INSULIN ASPART 100 UNIT/ML 1 ML 10 ML VIAL SQ SCH ×4 (07:24→22:17)
[2018-01-06 07:40] LABS: Basophils % (A) 0 %; Eosinophils # (A) 0.2 k/uL (0-0.7); Eosinophils % (A) 3 %; HCT 40.9 % (39.0-53.0); HGB 13.7 gm/dL (13.0-17.5); Lymphocytes # (A) 2.2 k/uL (1.0-4.8); Lymphocytes % (A) 37 %; MCH 28.1 pg (25.0-35.0); MCHC 33.4 g/dL (31.0-37.0); MCV 84.1 fL (80.0-100.0); Mean Platelet Volume 7.2; Monocytes # (A) 0.4 k/uL (0-1.0); Monocytes % (A) 7 %; Neutrophils # (A) 3.1 k/uL (1.3-7.7); Neutrophils % (A) 51 %; Platelet Count 204 k/uL (150-450); RBC 4.87 m/uL (4.30-5.90); RDW 14.7 % (11.5-15.5)
[2018-01-06 07:49] LABS: Anion Gap 9 mmol/L; Blood Urea Nitrogen 14 mg/dL (9-20); Calcium 9.8 mg/dL (8.4-10.2); Carbon Dioxide 28 mmol/L (22-30); Chloride 105 mmol/L (98-107); Glucose 87 mg/dL (74-99); Potassium 4.6 mmol/L (3.5-5.1); Sodium 142 mmol/L (137-145)
[2018-01-06] MEDS: DIVALPROEX 500 MG TABLET.DR PO SCH ×3 (08:07→22:21)
[2018-01-06] MEDS: ASPIRIN 325 MG TAB PO SCH (08:07)
[2018-01-06] MEDS: GABAPENTIN 300 MG CAP PO SCH ×3 (08:07→22:19)
[2018-01-06] MEDS: FLUTICASONE 110 MCG INHALER INHALATION SCH ×2 (08:33→20:20)
[2018-01-06] MEDS ORDERED: ALPRAZolam 0.5 MG TAB PO PRN (09:06)
[2018-01-06] MEDS ORDERED: NITROGLYCERIN SL TABS 0.4 MG TAB SUBLINGUAL PRN (09:06)
[2018-01-06] MEDS ORDERED: ALPRAZolam 0.25 MG TAB PO PRN (09:06)
[2018-01-06 12:06] LABS: Glucose,Whole Blood 79 mg/dL (75-99)
--- NOTE | 2018-01-06 13:26 | P.PN ---
Subjective Progress Note Date: 01/06/18 47-year-old gentleman seen in consultation yesterday by Dr. VC Rodriguez. He follows Dr. THEODORE Menchaca in the office. He presented to the hospital with symptoms of chest discomfort. Patient has known history of coronary artery disease with prior PCI. Patient was advised to undergo cardiac catheterization, the risks and benefits were explained to him in detail, procedure is scheduled to be performed tomorrow by Dr. THEODORE Menchaca. Hemodynamically the patient is stable. Objective - Vital Signs Vital signs: Vital Signs Temp 98.0 F 01/06/18 12:00 Pulse 70 01/06/18 12:00 Resp 18 01/06/18 12:00 BP 113/74 01/06/18 12:00 Pulse Ox 97 01/06/18 12:00 Intake & Output 01/05/18 01/06/18 01/06/18 18:59 06:59 18:59 Other: Voiding Method Toilet Toilet Toilet # Voids 2 1 - Exam PHYSICAL EXAMINATION: GENERAL: 47-year-old gentleman in no acute distress at the time of my examination HEENT: Head is atraumatic, normocephalic. Pupils equal, round. Sclera anicteric. Conjunctiva are clear. Mucous membranes of the mouth are moist. Neck is supple. There is no elevated jugular venous pressure.] bruit is heard. HEART EXAMINATION: Heart S1, S2 normal. No murmur or gallop heard. CHEST EXAMINATION: Lungs are clear to auscultation and precussion. No chest wall tenderness is noted on palpation or with deep breathing. ABDOMEN: Soft, nontender. Bowel sounds are heard. No organomegaly noted. EXTREMITIES: 2+ peripheral pulses with no evidence of peripheral edema and no calf tenderness noted. NEUROLOGIC patient is awake, alert and oriented ?-3.] . - Labs CBC & Chem 7: 01/06/18 06:29 01/06/18 06:29 Labs: Abnormal Lab Results - Last 24 Hours (Table) 01/05/18 01/06/18 Range/Units 17:08 06:58 POC Glucose (mg/dL) 134 H 102 H (75-99) mg/dL Assessment and Plan Plan: Assessment and plan #1 chest pain, suggesting possible unstable angina. Patient is scheduled to undergo cardiac catheterization tomorrow by Dr. Kisha Menchaca #2 known history of coronary artery disease with prior PCI's #3 Hyperlipidemia #4 hypertension Plan Patient is scheduled to undergo cardiac catheterization tomorrow by Dr. Kisha Menchaca. The risks and benefits were explained to him in detail and he is willing to proceed. Further recommendations will be based on the findings and the patient's clinical course. DNP note has been reviewed, I agree with a documented findings and plan of care. Patient was seen and examined.
--- NOTE | 2018-01-06 14:03 | P.PN ---
Subjective Progress Note Date: 01/06/18 Principal diagnosis: Chest pain/unstable angina This is a 47-year-old male who comes emergency Department complaining of a half hour of chest pain which radiates on the left arm. Patient states she's also been mildly short of breath. Patient states she's had a previous stent and a heart attack in the past. Patient denies any recent fever chills or cough. Patient denies any lightheadedness or dizziness. Patient denies any abdominal pain patient denies nausea vomiting diarrhea. Patient states this is typical of his angina except that it radiated to his jaw and arm and that is not normal. Patient denied any diaphoretic episodes. 01/06/18 Patient is seen and evaluated in the room at bedside; patient remains chest pain -free; IV heparin drip has been discontinued; patient is scheduled for cardiac catheterization tomorrow morning by Dr. Kisha galan; patient's labs remained stable with a normal white blood count and hemoglobin; blood sugars improved from 132 and now ranging between 79-102 Objective - Vital Signs Vital signs: Vital Signs Temp 98.0 F 01/06/18 12:00 Pulse 70 01/06/18 12:00 Resp 18 01/06/18 12:00 BP 113/74 01/06/18 12:00 Pulse Ox 97 01/06/18 12:00 Intake & Output 01/05/18 01/06/18 01/06/18 18:59 06:59 18:59 Other: Voiding Method Toilet Toilet Toilet # Voids 2 1 - Exam - Constitutional General appearance: Present: average body habitus, cooperative, no acute distress - EENT Eyes: Present: anicteric sclerae, EOMI, PERRLA, normal appearance ENT: Present: hearing grossly normal, normal oropharynx Ears: bilateral: normal - Neck Neck: Present: normal ROM. Absent: lymphadenopathy, rigidity, thyromegaly Carotids: negative: bruit present Thyroid: bilateral: normal size, negative: enlarged, nodule - Respiratory Respiratory: bilateral: CTA, negative: rales, rhonchi, wheezing - Cardiovascular Rhythm: regular Heart sounds: normal: S1, S2 Abnormal Heart Sounds: Absent: systolic murmur, diastolic murmur - Gastrointestinal General gastrointestinal: Present: normal bowel sounds, soft. Absent: distended , organomegaly, tenderness - Genitourinary Genitourinary Comment(s): deferred - Integumentary Integumentary: Present: normal turgor. Absent: jaundiced, rash, ulcer - Neurologic Neurologic: Present: CNII-XII intact. Absent: focal deficits - Musculoskeletal Musculoskeletal: Present: gait normal, strength equal bilaterally - Psychiatric Psychiatric: Present: A&O x's 3, appropriate affect, intact judgment & insight - Labs CBC & Chem 7: 01/06/18 06:29 01/06/18 06:29 Labs: Abnormal Lab Results - Last 24 Hours (Table) 01/05/18 01/06/18 Range/Units 17:08 06:58 POC Glucose (mg/dL) 134 H 102 H (75-99) mg/dL Assessment and Plan Assessment: 1. Chest pain/unstable angina 2. Hypertension 3. Hyperlipidemia 4. Diabetes mellitus type 2 5. Asthma We will admit the patient to cardiac telemetry unit; monitor cardiac enzymes every 8 hours 3 along with close monitoring of EKG Start patient on IV heparin per protocol along with Nitropaste - Patient remains on aspirin, beta blockers and statins - Cut etiologies consulted for further recommendations - We will resume all home medications Further recommendations after patient seen by cardiology Time with Patient: Less than 30
[2018-01-06 17:04] LABS: Glucose,Whole Blood 87 mg/dL (75-99)
[2018-01-06 21:17] LABS: Glucose,Whole Blood 149 mg/dL (75-99)
[2018-01-06] MEDS: ATORVASTATIN 80 MG TAB PO SCH (22:19)
[2018-01-06] MEDS: traZODone HCL 100 MG TAB PO SCH (22:19)
[2018-01-06] MEDS: VENLAFAXINE HCL ER 150 MG CAP PO SCH (22:19)
[2018-01-06] MEDS: MONTELUKAST 10 MG TAB PO SCH (22:19)
[2018-01-06] MEDS: METOPROLOL SUCCINATE (ER) 25 MG TAB.ER.24H PO SCH (22:20)
[2018-01-06] MEDS: metFORMIN 500 MG TAB PO SCH (22:20)
[2018-01-06] MEDS: FENOFIBRATE 160 MG TAB PO SCH (22:20)
[2018-01-07] MEDS: NITROGLYCERIN OINT 1 INCH/GM PACKET TOPICAL SCH ×5 (04:33→23:42)
[2018-01-07] MEDS ORDERED: SODIUM CHLORIDE 0.9% 1,000 ML in EMPTY BAG 1 BAG IV ONE (06:00)
[2018-01-07] MEDS ORDERED: ATORVASTATIN 80 MG TAB PO ONE (06:00)
[2018-01-07] MEDS ORDERED: ASPIRIN 325 MG TAB PO ONE (06:00)
[2018-01-07] MEDS: GABAPENTIN 300 MG CAP PO SCH ×3 (06:36→20:37)
[2018-01-07] MEDS: DIVALPROEX 500 MG TABLET.DR PO SCH ×3 (06:37→20:37)
[2018-01-07] MEDS: FLUTICASONE 110 MCG INHALER INHALATION SCH ×2 (06:49→20:37)
[2018-01-07 07:04] LABS: Glucose,Whole Blood 81 mg/dL (75-99)
[2018-01-07 07:52] LABS: Basophils % (A) 1 %; Eosinophils # (A) 0.1 k/uL (0-0.7); Eosinophils % (A) 2 %; HCT 42.4 % (39.0-53.0); HGB 13.7 gm/dL (13.0-17.5); Lymphocytes # (A) 1.5 k/uL (1.0-4.8); Lymphocytes % (A) 31 %; MCH 27.3 pg (25.0-35.0); MCHC 32.3 g/dL (31.0-37.0); MCV 84.4 fL (80.0-100.0); Mean Platelet Volume 6.9; Monocytes # (A) 0.3 k/uL (0-1.0); Monocytes % (A) 7 %; Neutrophils # (A) 2.9 k/uL (1.3-7.7); Neutrophils % (A) 59 %; Platelet Count 182 k/uL (150-450); RBC 5.02 m/uL (4.30-5.90); RDW 14.9 % (11.5-15.5); WBC 4.9 k/uL (3.8-10.6)
[2018-01-07 08:03] LABS: Anion Gap 6 mmol/L; Blood Urea Nitrogen 15 mg/dL (9-20); Calcium 9.3 mg/dL (8.4-10.2); Carbon Dioxide 28 mmol/L (22-30); Chloride 105 mmol/L (98-107); Glucose 85 mg/dL (74-99); Potassium 4.4 mmol/L (3.5-5.1); Sodium 139 mmol/L (137-145)
[2018-01-07] MEDS: INSULIN ASPART 100 UNIT/ML 1 ML 10 ML VIAL SQ SCH ×4 (08:26→20:38)
[2018-01-07] MEDS: ASPIRIN 81 MG PO SCH (08:27)
[2018-01-07 12:15] LABS: Glucose,Whole Blood 79 mg/dL (75-99)
[2018-01-07 15:18] LABS: Glucose,Whole Blood 79 mg/dL (75-99)
[2018-01-07 17:54] LABS: Glucose,Whole Blood 149 mg/dL (75-99)
[2018-01-07 19:41] VITALS: RESP 18
[2018-01-07] MEDS: metFORMIN 500 MG TAB PO SCH (20:18)
[2018-01-07 20:30] LABS: Glucose,Whole Blood 137 mg/dL (75-99)
[2018-01-07] MEDS: METOPROLOL SUCCINATE (ER) 25 MG TAB.ER.24H PO SCH (20:36)
[2018-01-07] MEDS: traZODone HCL 100 MG TAB PO SCH (20:36)
[2018-01-07] MEDS: MONTELUKAST 10 MG TAB PO SCH (20:37)
[2018-01-07] MEDS: VENLAFAXINE HCL ER 150 MG CAP PO SCH (20:37)
[2018-01-07] MEDS: ATORVASTATIN 80 MG TAB PO SCH (20:37)
[2018-01-07] MEDS: FENOFIBRATE 160 MG TAB PO SCH (21:37)
--- NOTE | 2018-01-07 23:48 | P.PN ---
Subjective Progress Note Date: 01/07/18 Principal diagnosis: Chest pain/unstable angina This is a 47-year-old male who comes emergency Department complaining of a half hour of chest pain which radiates on the left arm. Patient states she's also been mildly short of breath. Patient states she's had a previous stent and a heart attack in the past. Patient denies any recent fever chills or cough. Patient denies any lightheadedness or dizziness. Patient denies any abdominal pain patient denies nausea vomiting diarrhea. Patient states this is typical of his angina except that it radiated to his jaw and arm and that is not normal. Patient denied any diaphoretic episodes. 01/06/18 Patient is seen and evaluated in the room at bedside; patient remains chest pain -free; IV heparin drip has been discontinued; patient is scheduled for cardiac catheterization tomorrow morning by Dr. Kisha galan; patient's labs remained stable with a normal white blood count and hemoglobin; blood sugars improved from 132 and now ranging between 79-102 01/07/2018 Patient denied any complaints of chest pain today. Cardiology is planning for catheterization today. Blood pressure is controlled. Hemoglobin is stable. No other acute overnight issues. Current medications reviewed. Objective - Vital Signs Vital signs: Vital Signs Temp 98.6 F 01/07/18 19:40 Pulse 86 01/07/18 19:40 Resp 18 01/07/18 20:00 BP 122/65 01/07/18 19:40 Pulse Ox 94 L 01/07/18 19:40 Intake & Output 01/07/18 01/07/18 01/08/18 06:59 18:59 06:59 Intake Total 480 Output Total 2 Balance 478 Intake: Oral 480 Output: Urine 2 Other: Voiding Method Toilet Toilet Toilet # Voids 1 1 - Exam PHYSICAL EXAMINATION: Patient is lying in the bed comfortably, no acute distress, awake alert and oriented.. HEENT: Normocephalic. Neck is supple. Pupils reactive. Nostrils clear. Oral cavity is moist. Ears reveal no drainage. Neck reveals no JVD, carotid bruits, or thyromegaly. CHEST EXAMINATION: Trachea is central. Symmetrical expansion. Lung crane clear to auscultation and percussion. CARDIAC: Normal S1, S2 with no gallops. No murmurs ABDOMEN: Soft. Bowel sounds normal. No organomegaly. No abdominal bruits. Extremities: reveal no edema. No clubbing or cyanosis Neurologically awake, alert, oriented x3 with well-coordinated movements. No focal deficits noted Skin: No rash or skin lesions. Psychiatric: Coperative. Nonsuicidal Musculoskeletal: No joint swelling or deformity. Normal range of motion. - Labs CBC & Chem 7: 01/07/18 07:06 01/07/18 07:06 Labs: Abnormal Lab Results - Last 24 Hours (Table) 01/07/18 01/07/18 Range/Units 17:16 20:14 POC Glucose (mg/dL) 149 H 137 H (75-99) mg/dL Assessment and Plan Assessment: 1. Chest pain/unstable angina 2. Hypertension 3. Hyperlipidemia 4. Diabetes mellitus type 2 5. Asthma 6. History of coronary artery disease with prior stent placement Patient was admitted to cardiac telemetry unit; monitor cardiac enzymes every 8 hours 3 along with close monitoring of EKG. Troponin 3 negative. Started patient on IV heparin per protocol along with Nitropaste - Patient remains on aspirin, beta blockers and statins - Cardiology is planning for catheterization today. Time with Patient: Greater than 30
[2018-01-08] MEDS: NITROGLYCERIN OINT 1 INCH/GM PACKET TOPICAL SCH (00:04)
[2018-01-08] MEDS: ASPIRIN 81 MG PO SCH (06:42)
[2018-01-08] MEDS: GABAPENTIN 300 MG CAP PO SCH (06:42)
[2018-01-08] MEDS: DIVALPROEX 500 MG TABLET.DR PO SCH (06:43)
[2018-01-08 06:51] LABS: Glucose,Whole Blood 140 mg/dL (75-99)
[2018-01-08] MEDS ORDERED: IV FLUID CONTINUATION 900 ML IV ONE (06:55)
[2018-01-08] MEDS ORDERED: diphenhydrAMINE 50 MG/ML 1 ML VIAL IVP ONE (07:24)
[2018-01-08] MEDS ORDERED: MIDAZOLAM 2 MG/2 ML VIAL IV ONE (07:25)
[2018-01-08] MEDS ORDERED: LIDOCAINE 1% INJ 10MG/ML (20 ML MDV) SQ ONE (07:26)
[2018-01-08] MEDS: FLUTICASONE 110 MCG INHALER INHALATION SCH (07:39)
[2018-01-08] MEDS ORDERED: IOPAMIDOL-370 100ML BTL INJ ONE (07:40)
[2018-01-08] MEDS ORDERED: MORPHINE SULFATE 4MG/4ML SYRG IV ONE (07:40)
[2018-01-08] MEDS ORDERED: RX INFO: IV CONTRAST WAS GIVEN 1 EACH MISC MISCELLANE PRN (07:53)
[2018-01-08] MEDS ORDERED: SODIUM CHLORIDE 0.9% 1,000 ML IV SCH (08:00)
--- NOTE | 2018-01-08 08:28 | CC ---
CARDIAC CATHETERIZATION REPORT DATE OF SERVICE: 01/08/2018 PROCEDURE: Left heart catheterization, coronary angiography. PERFORMED BY: Dr. Roc Menchaca. Moderate conscious sedation time was 20 minutes. Patient was given Versed and Benadryl. His oxygen saturation, hemodynamics and EKG were monitored closely. CLINICAL INFORMATION: Mr. Fransisco Burnham is a 47-year-old gentleman with history of bipolar disorder, hypertension, hyperlipidemia came into the hospital with chest pain and in view of his presentation he was evaluated by Dr. Saurabh Rodriguez and advised coronary angiography. I spoke to the patient regarding the risks, benefits, and options and he was agreeable with the procedure which was scheduled for today. PROCEDURE NOTE: Under local anesthesia and strict aseptic precautions, a 6-E[place] introducer was placed in the right femoral artery. Using standard Ab catheters I performed coronary angiography and a right Ab catheter was used to check LV pressures. LV gram was not performed. The sheath was taken out and Perclose device used to secure hemostasis and he was sent to the room in stable condition. There was no family available. Results were discussed with the patient. He has no significant obstructive CAD. CARDIAC CATHETERIZATION FINDINGS: The left ventricular end-diastolic pressure was about 18 mmHg without any gradient across the aortic valve. CORONARY ANGIOGRAPHY FINDINGS: RIGHT CORONARY ARTERY: A large vessel, dominant, tortuous, distally bifurcates into a large PDA and PLV. No significant disease. RCA is a dominant disease-free vessel. LEFT MAIN CORONARY ARTERY: Left main is a long tortuous, disease-free vessel that bifurcates into LAD and circumflex. Left main itself is free of significant disease. This is a tortuous long vessel. LEFT ANTERIOR DESCENDING CORONARY ARTERY: Good caliber vessel extends along the anterior wall gives off septal and diagonal branches runs towards the apex supplying a sizable amount of myocardium. There are minor irregularities but no significant obstructive disease is noted in the LAD system. The diagonal is also free of significant disease. LEFT POSTERIOR CIRCUMFLEX CORONARY ARTERY: Technically nondominant vessel gives off a single obtuse marginal and then there is a small branch in the AV groove. The circumflex system, specifically the obtuse marginal that runs in the posterior lateral direction, has minor irregularities but no significant obstructive disease is noted. FINAL IMPRESSION: This patient has a right dominant system. Slightly elevated filling pressures. No significant obstructive disease. Left ventriculogram was not performed. RECOMMENDATION: Findings were discussed with the patient. There was no family available. Advised to continue medical therapy and risk factor modification. He is advised to hold metformin for 48 hours. MMODL / IJN: [id number] /
[2018-01-08 08:29] VITALS: TEMP 98.2
--- NOTE | 2018-01-08 08:31 | LTR ---
January 08, 2018 Re: Fransisco Burnham Dear Dr. Walsh: Thank you for the opportunity to participate in the care of Mr. Burnham. Please find enclosed my detailed cardiac cath report for your records. This gentleman does not have any significant obstructive CAD. Continued medical therapy with risk factor modification is advised. Thank you for your referral and please call for questions. With kindest regards. Sincerely yours, MD FRANCY Hussein / EMMAN: [id number] /
[2018-01-08] MEDS: INSULIN ASPART 100 UNIT/ML 1 ML 10 ML VIAL SQ SCH (10:51)
[2018-01-08 12:10] LABS: Glucose,Whole Blood 140 mg/dL (75-99)
[2018-01-08 16:28] VITALS: BP 123/73; PULSE 71
== END 2018-01-08 16:45 | disposition home or self-care (01) | DRG 287 ==
LOC: EC 14:33 → 3OBS 15:41 → UNDOADMOB 15:41 → 3OBS 01-06 19:04 → OBSVTOIN 01-06 19:06 → INTOOBSV 01-06 19:06
PROVIDERS: ADMIT Hospitalist; ATTEND Hospitalist
PROC: B2111ZZ Fluoroscopy of Multiple Coronary Arteries using Low Osmolar Contrast (ICD-10-PCS; principal; 2018-01-08 06:55)
PROC: 4A023N7 Measurement of Cardiac Sampling and Pressure, Left Heart, Percutaneous Approach (ICD-10-PCS; principal; 2018-01-08 06:55)
DX: I25.110 Atherosclerotic heart disease of native coronary artery with unstable angina pectoris (principal); E11.9 Type 2 diabetes mellitus without complications; E78.5 Hyperlipidemia, unspecified; F17.200 Nicotine dependence, unspecified, uncomplicated; G47.30 Sleep apnea, unspecified; I10 Essential (primary) hypertension; G89.29 Other chronic pain; Z96.651 Presence of right artificial knee joint; J45.909 Unspecified asthma, uncomplicated; K21.9 Gastro-esophageal reflux disease without esophagitis; N20.0 Calculus of kidney; Z99.89 Dependence on other enabling machines and devices; Z79.01 Long term (current) use of anticoagulants; I25.2 Old myocardial infarction; Z79.84 Long term (current) use of oral hypoglycemic drugs; Z79.899 Other long term (current) drug therapy; Z80.1 Family history of malignant neoplasm of trachea, bronchus and lung; Z82.49 Family history of ischemic heart disease and other diseases of the circulatory system; Z82.5 Family history of asthma and other chronic lower respiratory diseases; Z83.3 Family history of diabetes mellitus; Z87.442 Personal history of urinary calculi; Z95.5 Presence of coronary angioplasty implant and graft; Z88.6 Allergy status to analgesic agent; Z88.8 Allergy status to other drugs, medicaments and biological substances; Z91.018 Allergy to other foods
CPT/HCPCS: 36415; 71046; 80048; 80053; 80061; 82550; 82553; 83036; 83735; 84484; 85025; 85610; 85730; 93005; 93306; 93458; 94640; 94760; 99285

== ENCOUNTER 2018-01-29 16:51 | Emergency (ER) | payer MEDICARE, OTHER ==
[2018-01-29 17:03] VITALS: RESP 18
[2018-01-29 17:22] LABS: Basophils % (A) 1 %; Eosinophils # (A) 0.1 k/uL (0-0.7); Eosinophils % (A) 2 %; HCT 38.3 % (39.0-53.0); Lymphocytes # (A) 1.1 k/uL (1.0-4.8); Lymphocytes % (A) 28 %; MCH 28.5 pg (25.0-35.0); MCV 83.9 fL (80.0-100.0); Mean Platelet Volume 7.4; Monocytes # (A) 0.3 k/uL (0-1.0); Monocytes % (A) 7 %; Neutrophils # (A) 2.4 k/uL (1.3-7.7); Neutrophils % (A) 60 %; Platelet Count 195 k/uL (150-450); RBC 4.57 m/uL (4.30-5.90); RDW 15.4 % (11.5-15.5)
[2018-01-29 17:34] LABS: ALT 31 U/L (21-72); AST 20 U/L (17-59); Albumin 3.6 g/dL (3.5-5.0); Alkaline Phosphatase 68 U/L (38-126); Anion Gap 8 mmol/L; Blood Urea Nitrogen 13 mg/dL (9-20); Calcium 9.1 mg/dL (8.4-10.2); Carbon Dioxide 25 mmol/L (22-30); Chloride 107 mmol/L (98-107); Glucose 106 mg/dL (74-99); Lipase 74 U/L (23-300); Magnesium 2.1 mg/dL (1.6-2.3); Potassium 4.1 mmol/L (3.5-5.1); Sodium 140 mmol/L (137-145); Total Bilirubin 0.3 mg/dL (0.2-1.3); Total Protein 6.2 g/dL (6.3-8.2)
[2018-01-29 17:38] LABS: Creatine Kinase 38 U/L (55-170)
[2018-01-29 17:41] LABS: Partial Thromboplastin Time 21.9 sec (22.0-30.0)
[2018-01-29 17:51] LABS: Creatine Kinase MB 0.7 ng/mL (0.0-2.4); Troponin I <0.012 ng/mL (0.000-0.034)
--- NOTE | 2018-01-29 18:09 | ED ---
General Adult HPI - General Chief complaint: Chest Pain Stated complaint: Chest Pain Time Seen by Provider: 01/29/18 16:55 Source: patient, RN notes reviewed, old records reviewed Mode of arrival: EMS Limitations: no limitations - History of Present Illness Initial comments: This is a 47-year-old male the ER for evaluation. Patient complaining of multiple complaints chronic headache chest pain. Denies shortness of breath no diaphoresis no anxiety. Patient denies any trauma, patient has had no increased stress or anxiety his life. Symptoms are today been progressive and episodic. Patient denies modifying factors for symptoms. Patient states he did feel like his heart was racing. - Related Data Home Medications Medication Instructions Recorded Confirmed metFORMIN HCL [Glucophage] 500 mg PO DAILY 06/10/14 01/29/18 Montelukast Sodium [Singulair] 10 mg PO HS 06/01/16 01/29/18 Albuterol Inhaler [Ventolin Hfa 1 - 2 puff INHALATION RT-Q6H PRN 10/15/17 Inhaler] Atorvastatin [Lipitor] 40 mg PO DAILY 10/15/17 01/29/18 Beclomethasone Dipropionate [Qvar 2 puff INHALATION RT-BID 10/15/17 01/29/18 80 mcg] Divalproex Sodium 500 mg PO TID 10/15/17 01/29/18 Fenofibrate Nanocrystallized 72.5 mg PO DAILY 10/15/17 01/29/18 [Fenofibrate] Gabapentin [Neurontin] 300 mg PO TID 10/15/17 01/29/18 Metoprolol Succinate (ER) [Toprol 25 mg PO HS 10/15/17 01/29/18 XL] Venlafaxine HCl [Effexor XR] 150 mg PO HS 10/15/17 01/29/18 traZODone HCL 150 mg PO HS 10/15/17 01/29/18 Previous Rx's Medication Instructions Recorded Aspirin 81 mg PO DAILY #30 chew 01/08/18 Allergies Allergy/AdvReac Type Severity Reaction Status Date / Time naproxen [From Naprosyn] Allergy Unknown Rash/Hives Verified 01/29/18 17:36 adhesive tape Allergy Rash/Hives Verified 01/29/18 17:36 carrot Allergy Dyspnea Verified 01/29/18 17:36 chocolate flavor Allergy Dyspnea Verified 01/29/18 17:36 grass pollen-perennial rye, Allergy Dyspnea Verified 01/29/18 17:36 standar ibuprofen Allergy Itching Verified 01/29/18 17:36 mold Allergy Unknown Verified 01/29/18 17:36 Review of Systems ROS Statement: Those systems with pertinent positive or pertinent negative responses have been documented in the HPI. ROS Other: All systems not noted in ROS Statement are negative. Past Medical History Past Medical History: Chest Pain / Angina, Diabetes Mellitus, GERD/Reflux, GI Bleed, Hyperlipidemia, Hypertension, Myocardial Infarction ([place]), Osteoarthritis (OA), Sleep Apnea/CPAP/BIPAP Additional Past Medical History / Comment(s): chronic back pain, herniated discs in the neck and the back. mood disturbance.occ ringing in ears, " in 1994 a told me he heard a soft heart murmur' Last Myocardial Infarction Date:: 2004 History of Any Multi-Drug Resistant Organisms: None Reported Past Surgical History: Hernia Repair, Joint Replacement Additional Past Surgical History / Comment(s): rt knee arthroscopy x3, lt knee arthroscopy last date 2012,total rt knee replacement and a revision sx cardiac stent x1 2004, stent placed for kidney stone 07/04/2016. Kidney stent has been removed. COLONOSCOPY. neuro stimulator implants Past Anesthesia/Blood Transfusion Reactions: No Reported Reaction Date of Last Stent Placement:: 2004 Past Psychological History: Anxiety, Bipolar, Depression Smoking Status: Current every day smoker Past Alcohol Use History: Rare Past Drug Use History: None Reported - Past Family History Father Family Medical History: Congestive Heart Failure (CHF), Deep Vein Thrombosis ( DVT), Myocardial Infarction ([place]), Pulmonary Embolus Additional Family Medical History / Comment(s): OR at age 38. "hole in colon" Mother Family Medical History: Cancer, COPD, Diabetes Mellitus, Hyperlipidemia Additional Family Medical History / Comment(s): breast and lung cancer Sister(s) Family Medical History: Diabetes Mellitus Additional Family Medical History / Comment(s): bi-polar, anxiety. hysterectomy Brother(s) History Unknown: Yes General Exam Limitations: no limitations General appearance: alert, in no apparent distress Head exam: Present: atraumatic, normocephalic, normal inspection Eye exam: Present: normal appearance, PERRL, EOMI. Absent: scleral icterus, conjunctival injection, periorbital swelling ENT exam: Present: normal exam, mucous membranes moist Neck exam: Present: normal inspection. Absent: tenderness, meningismus, lymphadenopathy Respiratory exam: Present: normal lung sounds bilaterally. Absent: respiratory distress, wheezes, rales, rhonchi, stridor Cardiovascular Exam: Present: regular rate, normal rhythm, normal heart sounds. Absent: systolic murmur, diastolic murmur, rubs, gallop, clicks GI/Abdominal exam: Present: soft, normal bowel sounds. Absent: distended, tenderness, guarding, rebound, rigid Extremities exam: Present: normal inspection, full ROM, normal capillary refill. Absent: tenderness, pedal edema, joint swelling, calf tenderness Back exam: Present: normal inspection Neurological exam: Present: alert, oriented X3, CN II-XII intact Psychiatric exam: Present: normal affect, normal mood Skin exam: Present: warm, dry, intact, normal color. Absent: rash Course Vital Signs 01/29/18 17:01 Temperature 99.0 F Pulse Rate 83 Respiratory 18 Rate Blood Pressure 123/66 O2 Sat by Pulse 97 Oximetry - Reevaluation(s) Reevaluation #1: 01/29/18 18:13 Medical record and prior hospitalizations reviewed Reevaluation #2: 01/29/18 19:04 Patient's vital signs remain normal and stable with normal heart rate EKG Findings - EKG Comments: EKG Findings:: EKG shows normal sinus rhythm rate of 80, CO 186, QRS 76, QTc 412 Medical Decision Making - Medical Decision Making 47 male the ER for evasive chest pain nonspecific chest pain left-sided chest pain occasional headache. Patient presents ER for evaluation of similar complaint. Patient is no acute cause found. Patient can be discharged home - Lab Data Result diagrams: 01/29/18 17:00 01/29/18 17:00 Lab Results 01/29/18 01/29/18 01/29/18 Range/Units 17:00 17:00 17:00 WBC 4.0 (3.8-10.6) k/uL RBC 4.57 (4.30-5.90) m/uL Hgb 13.0 (13.0-17.5) gm/dL Hct 38.3 L (39.0-53.0) % MCV 83.9 (80.0-100.0) fL MCH 28.5 (25.0-35.0) pg MCHC 34.0 (31.0-37.0) g/dL RDW 15.4 (11.5-15.5) % Plt Count 195 (150-450) k/uL Neutrophils % 60 % Lymphocytes % 28 % Monocytes % 7 % Eosinophils % 2 % Basophils % 1 % Neutrophils # 2.4 (1.3-7.7) k/uL Lymphocytes # 1.1 (1.0-4.8) k/uL Monocytes # 0.3 (0-1.0) k/uL Eosinophils # 0.1 (0-0.7) k/uL Basophils # 0.0 (0-0.2) k/uL PT (9.0-12.0) sec INR (<1.2) APTT (22.0-30.0) sec Sodium 140 (137-145) mmol/L Potassium 4.1 (3.5-5.1) mmol/L Chloride 107 (98-107) mmol/L Carbon Dioxide 25 (22-30) mmol/L Anion Gap 8 mmol/L BUN 13 (9-20) mg/dL Creatinine 0.75 (0.66-1.25) mg/dL Est GFR (CKD-EPI)AfAm >90 (>60 ml/min/1.73 sqM) Est GFR (CKD-EPI)NonAf >90 (>60 ml/min/1.73 sqM) Glucose 106 H (74-99) mg/dL Calcium 9.1 (8.4-10.2) mg/dL Magnesium 2.1 (1.6-2.3) mg/dL Total Bilirubin 0.3 (0.2-1.3) mg/dL AST 20 (17-59) U/L ALT 31 (21-72) U/L Alkaline Phosphatase 68 (38-126) U/L Total Creatine Kinase 38 L (55-170) U/L CK-MB (CK-2) 0.7 (0.0-2.4) ng/mL CK-MB (CK-2) Rel Index 1.8 Troponin I <0.012 (0.000-0.034) ng/mL Total Protein 6.2 L (6.3-8.2) g/dL Albumin 3.6 (3.5-5.0) g/dL Lipase 74 (23-300) U/L 01/29/18 Range/Units 17:00 WBC (3.8-10.6) k/uL RBC (4.30-5.90) m/uL Hgb (13.0-17.5) gm/dL Hct (39.0-53.0) % MCV (80.0-100.0) fL MCH (25.0-35.0) pg MCHC (31.0-37.0) g/dL RDW (11.5-15.5) % Plt Count (150-450) k/uL Neutrophils % % Lymphocytes % % Monocytes % % Eosinophils % % Basophils % % Neutrophils # (1.3-7.7) k/uL Lymphocytes # (1.0-4.8) k/uL Monocytes # (0-1.0) k/uL Eosinophils # (0-0.7) k/uL Basophils # (0-0.2) k/uL PT 10.0 (9.0-12.0) sec INR 1.0 (<1.2) APTT 21.9 L (22.0-30.0) sec Sodium (137-145) mmol/L Potassium (3.5-5.1) mmol/L Chloride (98-107) mmol/L Carbon Dioxide (22-30) mmol/L Anion Gap mmol/L BUN (9-20) mg/dL Creatinine (0.66-1.25) mg/dL Est GFR (CKD-EPI)AfAm (>60 ml/min/1.73 sqM) Est GFR (CKD-EPI)NonAf (>60 ml/min/1.73 sqM) Glucose (74-99) mg/dL Calcium (8.4-10.2) mg/dL Magnesium (1.6-2.3) mg/dL Total Bilirubin (0.2-1.3) mg/dL AST (17-59) U/L ALT (21-72) U/L Alkaline Phosphatase (38-126) U/L Total Creatine Kinase (55-170) U/L CK-MB (CK-2) (0.0-2.4) ng/mL CK-MB (CK-2) Rel Index Troponin I (0.000-0.034) ng/mL Total Protein (6.3-8.2) g/dL Albumin (3.5-5.0) g/dL Lipase (23-300) U/L - Radiology Data Radiology results: report reviewed (CXR is negative for acute disease, CT brain CT chest negative for acute disease), image reviewed Disposition Clinical Impression: Chest pain Disposition: HOME SELF-CARE Condition: Good Instructions: Chest Pain (ED) Is patient prescribed a controlled substance at d/c from ED?: No Referrals: Mine Walsh MD [Primary Care Provider] - 1-2 days
--- NOTE | 2018-01-29 18:11 | XR ---
EXAMINATION: XR chest 2V DATE AND TIME: 01/29/2018 5:15 PM CLINICAL INDICATION: Chest Pain TECHNIQUE: PA and lateral COMPARISON: 01/04/2018 FINDINGS: The lungs are clear. The pleural spaces are negative. The cardiac silhouette is not enlarged. The remainder of the mediastinal silhouette is unremarkable. The skeletal structures and soft tissues are negative for acute findings. IMPRESSION: NO ACUTE PROCESS.
--- NOTE | 2018-01-29 18:54 | CT ---
EXAMINATION: CT brain wo con DATE AND TIME: 01/29/2018 6:42 PM CLINICAL INDICATION: pain Left parietal headache today. TECHNIQUE: Standard departmental protocol. COMPARISON: 10/20/2014 FINDINGS: The calvarium is intact. There is no intracranial hemorrhage. There is no intracranial mass or mass effect. No definite new intra-axial or extra-axial attenuation defect. The paranasal sinuses, middle ear cavities, and mastoid sinus air cells are clear. The orbits are unremarkable. IMPRESSION: NO ACUTE PROCESS.
--- NOTE | 2018-01-29 19:02 | CT ---
EXAMINATION TYPE: CT angio chest with contrast and with 3-D reconstruction renderings DATE OF EXAM: 01/29/2018 6:42 PM COMPARISON: 07/04/2015 HISTORY: Left sided chest pain and difficulty breathing. CT DLP: 396.2 mGycm Automated exposure control for dose reduction was used. CONTRAST: CTA scan of the thorax is performed with IV Contrast, patient injected with 83 mL of Isovue 370, pulmonary embolism protocol. 3-D Reconstruction renderings. FINDINGS: LUNGS: The lungs are grossly clear, there is no concerning parenchymal mass or nodule identified. The re is no pleural effusion or pneumothorax seen. The tracheobronchial tree is patent. MEDIASTINUM: There is satisfactory enhancement of the pulmonary artery and its branches, there is no CT evidence for pulmonary embolism. Aorta is unremarkable. There are no greater than 1 cm hilar or me diastinal lymph nodes. No cardiomegaly or coronary calcifications. No pericardial effusion is seen. OTHER: No additional significant abnormality is seen. IMPRESSION: NO ACUTE PROCESS.
[2018-01-29 19:31] VITALS: BP 113/56; PULSE 73; TEMP 97.8
== END 2018-01-29 19:31 | disposition home or self-care (01) ==
LOC: EC 16:51
DX: R07.9 Chest pain, unspecified (principal); R51 Headache; G89.29 Other chronic pain; E11.9 Type 2 diabetes mellitus without complications; K21.9 Gastro-esophageal reflux disease without esophagitis; E78.5 Hyperlipidemia, unspecified; I10 Essential (primary) hypertension; I25.2 Old myocardial infarction; F41.9 Anxiety disorder, unspecified; F32.9 Major depressive disorder, single episode, unspecified; F17.200 Nicotine dependence, unspecified, uncomplicated; G47.30 Sleep apnea, unspecified; Z99.89 Dependence on other enabling machines and devices; Z96.651 Presence of right artificial knee joint; Z95.818 Presence of other cardiac implants and grafts; Z82.49 Family history of ischemic heart disease and other diseases of the circulatory system; Z79.84 Long term (current) use of oral hypoglycemic drugs; Z79.51 Long term (current) use of inhaled steroids; Z79.899 Other long term (current) drug therapy; Z88.6 Allergy status to analgesic agent; Z91.048 Other nonmedicinal substance allergy status; Z91.018 Allergy to other foods
CPT/HCPCS: 36415; 93005; 80053; 82550; 82553; 83690; 83735; 84484; 85025; 85610; 85730; 71046; 70450; 71275; 99285; Q9967

== ENCOUNTER 2018-03-10 20:32 | Emergency (ER) | payer MEDICARE, OTHER ==
[2018-03-10 20:41] VITALS: BP 130/74; PULSE 100; RESP 18; TEMP 98.3
[2018-03-10] MEDS ORDERED: ACETAMINOPHEN TAB 325 MG TAB PO STA (21:20)
[2018-03-10] MEDS ORDERED: KETOROLAC 30 MG/ML 1 ML VIAL IM STA (21:20)
--- NOTE | 2018-03-10 21:22 | ED ---
Back Pain HPI - General Source: patient Limitations: no limitations <Bryanna Reyes - Last Filed: 03/10/18 23:49> <Leslie Hairston - Last Filed: 03/11/18 03:04> - General Chief Complaint: Back Pain/Injury Stated Complaint: neck and back pain Time Seen by Provider: 03/10/18 20:47 - History of Present Illness Initial Comments: 47-year-old male patient presents to the emergency department today for evaluation of upper neck pain. Patient states he's been having this pain for the last 2 months but it has been steadily worsening. Patient denies any pain radiation down his arms. Denies any weakness to the upper extremities. Patient states he does have history of degenerative cervical spine with herniated disks. Patient denies any current headache or migraine. Denies any fever or chills with this. Patient states that his sister did feel a bump to the back of his head and is not sure if this is contributing to his pain. He denies any drainage or itching to the bump. Patient denies any recent rash, shortness breath, chest pain, abdominal pain, nausea, vomiting, diarrhea, constipation, back pain, dizziness, weakness, hematuria, dysuria, urinary urgency, urinary frequency, visual changes, or any other complaints. (Bryanna Reyes) - Related Data Home Medications Medication Instructions Recorded Confirmed metFORMIN HCL [Glucophage] 500 mg PO DAILY 06/10/14 01/29/18 Montelukast Sodium [Singulair] 10 mg PO HS 06/01/16 01/29/18 Albuterol Inhaler [Ventolin Hfa 1 - 2 puff INHALATION RT-Q6H PRN 10/15/17 Inhaler] Atorvastatin [Lipitor] 40 mg PO DAILY 10/15/17 01/29/18 Beclomethasone Dipropionate [Qvar 2 puff INHALATION RT-BID 10/15/17 01/29/18 80 mcg] Divalproex Sodium 500 mg PO TID 10/15/17 01/29/18 Fenofibrate Nanocrystallized 72.5 mg PO DAILY 10/15/17 01/29/18 [Fenofibrate] Gabapentin [Neurontin] 300 mg PO TID 10/15/17 01/29/18 Metoprolol Succinate (ER) [Toprol 25 mg PO HS 10/15/17 01/29/18 XL] Venlafaxine HCl [Effexor XR] 150 mg PO HS 10/15/17 01/29/18 traZODone HCL 150 mg PO HS 10/15/17 01/29/18 Previous Rx's Medication Instructions Recorded Aspirin 81 mg PO DAILY #30 chew 01/08/18 Cyclobenzaprine [Flexeril] 10 mg PO TID PRN #15 tab 02/01/18 Allergies Allergy/AdvReac Type Severity Reaction Status Date / Time naproxen [From Naprosyn] Allergy Unknown Rash/Hives Verified 03/10/18 20:42 adhesive tape Allergy Rash/Hives Verified 03/10/18 20:42 carrot Allergy Dyspnea Verified 03/10/18 20:42 chocolate flavor Allergy Dyspnea Verified 03/10/18 20:42 grass pollen-perennial rye, Allergy Dyspnea Verified 03/10/18 20:42 standar ibuprofen Allergy Itching Verified 03/10/18 20:42 mold Allergy Unknown Verified 03/10/18 20:42 Review of Systems ROS Other: All systems not noted in ROS Statement are negative. <Bryanna Reyes - Last Filed: 03/10/18 23:49> ROS Other: All systems not noted in ROS Statement are negative. <Leslie Hairston - Last Filed: 03/11/18 03:04> ROS Statement: Those systems with pertinent positive or pertinent negative responses have been documented in the HPI. Past Medical History Past Medical History: Chest Pain / Angina, Diabetes Mellitus, GERD/Reflux, GI Bleed, Hyperlipidemia, Hypertension, Myocardial Infarction ([place]), Osteoarthritis (OA), Sleep Apnea/CPAP/BIPAP Additional Past Medical History / Comment(s): chronic back and neck pain, herniated discs in the neck and the back. mood disturbance.occ ringing in ears , " in [address] told me he heard a soft heart murmur' Last Myocardial Infarction Date:: 2004 History of Any Multi-Drug Resistant Organisms: None Reported Past Surgical History: Hernia Repair, Joint Replacement Additional Past Surgical History / Comment(s): rt knee arthroscopy x3, lt knee arthroscopy last date 2012,total rt knee replacement and a revision sx cardiac stent x1 2004, stent placed for kidney stone 07/04/2016. Kidney stent has been removed. COLONOSCOPY. neuro stimulator implants Past Anesthesia/Blood Transfusion Reactions: No Reported Reaction Date of Last Stent Placement:: 2004 Past Psychological History: Anxiety, Bipolar, Depression Smoking Status: Current every day smoker Past Alcohol Use History: Rare Past Drug Use History: None Reported - Past Family History Father Family Medical History: Congestive Heart Failure (CHF), Deep Vein Thrombosis ( DVT), Myocardial Infarction ([place]), Pulmonary Embolus Additional Family Medical History / Comment(s): [place] at age 38. "hole in colon" Mother Family Medical History: Cancer, COPD, Diabetes Mellitus, Hyperlipidemia Additional Family Medical History / Comment(s): breast and lung cancer Sister(s) Family Medical History: Diabetes Mellitus Additional Family Medical History / Comment(s): bi-polar, anxiety. hysterectomy Brother(s) History Unknown: Yes <Bryanna Reyes M - Last Filed: 03/10/18 23:49> General Exam Limitations: no limitations General appearance: alert, in no apparent distress, other (This is a well- developed, well-nourished adult male patient in no acute distress. Vital signs upon presentation are temperature 98.3F, pulse 100, respirations 18, blood pressure 130/74, pulse ox 99% on room air.) Eye exam: Present: normal appearance, PERRL, EOMI. Absent: scleral icterus, conjunctival injection, periorbital swelling ENT exam: Present: normal exam, normal oropharynx, mucous membranes moist Neck exam: Present: normal inspection, full ROM. Absent: tenderness, meningismus, lymphadenopathy Respiratory exam: Present: normal lung sounds bilaterally. Absent: respiratory distress, wheezes, rales, rhonchi, stridor Cardiovascular Exam: Present: regular rate, normal rhythm, normal heart sounds. Absent: systolic murmur, diastolic murmur, rubs, gallop, clicks Extremities exam: Present: normal inspection, full ROM, normal capillary refill , other (Skin to the upper extremities is pink, warm, and dry. Cap refills less than 3 seconds. Radial pulses 2+ and equal bilaterally.). Absent: tenderness, pedal edema, joint swelling, calf tenderness Back exam: Present: normal inspection. Absent: tenderness Neurological exam: Present: alert, oriented X3, CN II-XII intact, other ( Strength in all 4 extremities is 5/5.) Psychiatric exam: Present: normal affect, normal mood Skin exam: Present: warm, dry, intact, normal color. Absent: rash <Bryanna Reyes - Last Filed: 03/10/18 23:49> Vital Signs 03/10/18 20:39 Temperature 98.3 F Pulse Rate 100 Respiratory 18 Rate Blood Pressure 130/74 O2 Sat by Pulse 99 Oximetry Medical Decision Making <Bryanna Reyes - Last Filed: 03/10/18 23:49> <Leslie Hairston - Last Filed: 03/11/18 03:04> - Medical Decision Making 47-year-old male patient presents emergency department today for complaints of increasing neck pain over the last 2 months. Physical examination is unremarkable. Patient is neurologically intact. Patient did express concern about a bump to his posterior scalp. I did examine the area, does appear the patient wears a hat often and does have chronic indentation to the soft tissues of the back of his head. I see no evidence of lesion or abscess. Patient is not tender over the area. It is felt his symptoms are related to his chronic neck pain. 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 Patient does have an appointment with the hand painter in 1 week. States he is able to walk into his doctor's office and plans to go tomorrow. He is instructed to keep this appointments. Return parameters were discussed in detail. He verbalizes understanding and agrees with this plan. (Bryanna Reyes) I was available for consultation in the emergency department. The history and physical exam were done by the midlevel provider. I was consulted for this patient's care. I reviewed the case with the midlevel provider and based on their presentation of the patient, I agree with the assessment, medical decision making and plan of care as documented. (Leslie Hairston) Disposition Is patient prescribed a controlled substance at d/c from ED?: No Time of Disposition: 21:22 <Bryanna Reyes - Last Filed: 03/10/18 23:49> <Leslie Hairston - Last Filed: 03/11/18 03:04> Clinical Impression: Chronic neck pain Disposition: HOME SELF-CARE Condition: Good Instructions: Chronic Neck Pain (DC) Additional Instructions: Follow-up with your primary care physician tomorrow as you have planned. Follow -up with your hand painter next week as you have planned. Apply warm moist heat to the neck. Take Tylenol for pain control. Return immediately for any new, worsening, or concerning symptoms. Referrals: Mine Walsh MD [Primary Care Provider] - 1-2 days
== END 2018-03-10 21:49 | disposition home or self-care (01) ==
LOC: EC 20:32
DX: G89.29 Other chronic pain (principal); M54.2 Cervicalgia; E11.9 Type 2 diabetes mellitus without complications; E78.5 Hyperlipidemia, unspecified; K21.9 Gastro-esophageal reflux disease without esophagitis; I10 Essential (primary) hypertension; I25.2 Old myocardial infarction; M19.90 Unspecified osteoarthritis, unspecified site; G47.30 Sleep apnea, unspecified; Z99.89 Dependence on other enabling machines and devices; F31.9 Bipolar disorder, unspecified; F41.9 Anxiety disorder, unspecified; F17.200 Nicotine dependence, unspecified, uncomplicated; Z79.51 Long term (current) use of inhaled steroids; Z79.899 Other long term (current) drug therapy; Z88.6 Allergy status to analgesic agent; Z91.018 Allergy to other foods; Z91.048 Other nonmedicinal substance allergy status; Z91.09 Other allergy status, other than to drugs and biological substances; Z96.651 Presence of right artificial knee joint; Z95.5 Presence of coronary angioplasty implant and graft
CPT/HCPCS: 99283; 96372; J1885

== ENCOUNTER 2018-05-24 20:29 | Observation (INO) | payer MEDICARE, OTHER ==
[2018-05-24] MEDS ORDERED: ASPIRIN 81 MG PO STA (21:43)
[2018-05-24] MEDS ORDERED: NITROGLYCERIN SL TABS 0.4 MG TAB SUBLINGUAL STA ×3 (21:43)
--- NOTE | 2018-05-24 21:59 | ED ---
General Adult HPI - General Chief complaint: Chest Pain Stated complaint: CHEST PAIN Time Seen by Provider: 05/24/18 21:03 Source: patient, EMS, RN notes reviewed Mode of arrival: EMS Limitations: no limitations - History of Present Illness Initial comments: Patient is a pleasant 47-year-old male presenting to the emergency Department with complaints of chest discomfort. Onset was a couple of hours ago. This was approximately 20 or 30 minutes after eating. Patient states discomfort is moderate and feels like tightness. Discomfort is left central chest. No radiation. Mild dyspnea. No associated nausea or diaphoresis. Patient does have history of previous chest pain. Patient also has previous history of ND and is unclear if symptoms are similar to that or not. No leg pain or leg swelling. - Related Data Home Medications Medication Instructions Recorded Confirmed metFORMIN HCL [Glucophage] 500 mg PO DAILY 06/10/14 05/24/18 Montelukast Sodium [Singulair] 10 mg PO HS 06/01/16 05/24/18 Albuterol Inhaler [Ventolin Hfa 1 - 2 puff INHALATION RT-Q6H PRN 10/15/17 Inhaler] Atorvastatin [Lipitor] 40 mg PO DAILY 10/15/17 05/24/18 Beclomethasone Dipropionate [Qvar 2 puff INHALATION RT-BID 10/15/17 05/24/18 80 mcg] Divalproex Sodium 500 mg PO TID 10/15/17 05/24/18 Fenofibrate Nanocrystallized 72.5 mg PO DAILY 10/15/17 05/24/18 [Fenofibrate] Gabapentin [Neurontin] 300 mg PO TID 10/15/17 05/24/18 Metoprolol Succinate (ER) [Toprol 25 mg PO HS 10/15/17 05/24/18 XL] Venlafaxine HCl [Effexor XR] 150 mg PO HS 10/15/17 05/24/18 traZODone HCL 150 mg PO HS 10/15/17 05/24/18 Previous Rx's Medication Instructions Recorded Aspirin 81 mg PO DAILY #30 chew 01/08/18 Allergies Allergy/AdvReac Type Severity Reaction Status Date / Time naproxen [From Naprosyn] Allergy Unknown Rash/Hives Verified 05/24/18 22:28 adhesive tape Allergy Rash/Hives Verified 05/24/18 22:28 carrot Allergy Dyspnea Verified 05/24/18 22:28 chocolate flavor Allergy Dyspnea Verified 05/24/18 22:28 grass pollen-perennial rye, Allergy Dyspnea Verified 05/24/18 22:28 standar ibuprofen Allergy Itching Verified 05/24/18 22:28 mold Allergy Unknown Verified 05/24/18 22:28 Review of Systems ROS Statement: Those systems with pertinent positive or pertinent negative responses have been documented in the HPI. ROS Other: All systems not noted in ROS Statement are negative. Constitutional: Denies: fever Eyes: Denies: eye pain ENT: Denies: ear pain Respiratory: Reports: as per HPI. Denies: cough Cardiovascular: Reports: chest pain Endocrine: Denies: fatigue Gastrointestinal: Denies: nausea Genitourinary: Denies: dysuria Musculoskeletal: Reports: back pain (Chronic and unchanged) Skin: Denies: rash Neurological: Denies: weakness Past Medical History Past Medical History: Chest Pain / Angina, Diabetes Mellitus, GERD/Reflux, GI Bleed, Hyperlipidemia, Hypertension, Myocardial Infarction (ND), Osteoarthritis (OA), Sleep Apnea/CPAP/BIPAP Additional Past Medical History / Comment(s): chronic back and neck pain, herniated discs in the neck and the back. mood disturbance.occ ringing in ears , " in [address] told me he heard a soft heart murmur' Last Myocardial Infarction Date:: 2004 History of Any Multi-Drug Resistant Organisms: None Reported Past Surgical History: Hernia Repair, Joint Replacement Additional Past Surgical History / Comment(s): rt knee arthroscopy x3, lt knee arthroscopy last date 2012,total rt knee replacement and a revision sx cardiac stent x1 2004, stent placed for kidney stone 07/04/2016. Kidney stent has been removed. COLONOSCOPY. neuro stimulator implants Past Anesthesia/Blood Transfusion Reactions: No Reported Reaction Date of Last Stent Placement:: 2004 Past Psychological History: Anxiety, Bipolar, Depression Smoking Status: Current every day smoker Past Alcohol Use History: Rare Past Drug Use History: None Reported - Past Family History Father Family Medical History: Congestive Heart Failure (CHF), Deep Vein Thrombosis ( DVT), Myocardial Infarction (ND), Pulmonary Embolus Additional Family Medical History / Comment(s): ND at age 38. "hole in colon" Mother Family Medical History: Cancer, COPD, Diabetes Mellitus, Hyperlipidemia Additional Family Medical History / Comment(s): breast and lung cancer Sister(s) Family Medical History: Diabetes Mellitus Additional Family Medical History / Comment(s): bi-polar, anxiety. hysterectomy Brother(s) History Unknown: Yes General Exam Limitations: no limitations General appearance: alert, in no apparent distress Head exam: Present: atraumatic Eye exam: Present: normal appearance, PERRL ENT exam: Present: normal oropharynx Neck exam: Present: normal inspection Respiratory exam: Present: normal lung sounds bilaterally. Absent: chest wall tenderness Cardiovascular Exam: Present: regular rate, normal rhythm Expanded Peripheral pulses: 2+: Radial (R), Radial (L), Posterior Tibialis (R), Posterior Tibialis (L) GI/Abdominal exam: Present: soft. Absent: tenderness Extremities exam: Present: normal inspection. Absent: pedal edema, calf tenderness Neurological exam: Present: alert Psychiatric exam: Present: normal affect, normal mood Skin exam: Present: normal color Course Vital Signs 05/24/18 20:43 Temperature 99 F Pulse Rate 87 Respiratory 18 Rate Blood Pressure 133/74 O2 Sat by Pulse 96 Oximetry EKG Findings - EKG Comments: EKG Findings:: Normal sinus rhythm 81. AL 180. QRS 78. QT 356. QTc 413. Normal axis. Normal QRS. No acute ST change. Medical Decision Making - Medical Decision Making Patient reevaluated and resting comfortably in bed. Symptoms have improved. Patient updated on results and plan. Dr. Triana has been paged for admission. - Lab Data Result diagrams: 05/24/18 20:57 05/24/18 20:57 Lab Results 05/24/18 05/24/18 05/24/18 Range/Units 20:57 20:57 20:57 WBC 4.6 (3.8-10.6) k/uL RBC 4.55 (4.30-5.90) m/uL Hgb 13.7 (13.0-17.5) gm/dL Hct 40.1 (39.0-53.0) % MCV 88.0 (80.0-100.0) fL MCH 30.0 (25.0-35.0) pg MCHC 34.1 (31.0-37.0) g/dL RDW 13.9 (11.5-15.5) % Plt Count 174 (150-450) k/uL Neutrophils % 60 % Lymphocytes % 31 % Monocytes % 5 % Eosinophils % 2 % Basophils % 1 % Neutrophils # 2.7 (1.3-7.7) k/uL Lymphocytes # 1.4 (1.0-4.8) k/uL Monocytes # 0.2 (0-1.0) k/uL Eosinophils # 0.1 (0-0.7) k/uL Basophils # 0.0 (0-0.2) k/uL PT (9.0-12.0) sec INR (<1.2) APTT (22.0-30.0) sec Sodium 139 (137-145) mmol/L Potassium 4.1 (3.5-5.1) mmol/L Chloride 106 (98-107) mmol/L Carbon Dioxide 20 L (22-30) mmol/L Anion Gap 13 mmol/L BUN 13 (9-20) mg/dL Creatinine 0.68 (0.66-1.25) mg/dL Est GFR (CKD-EPI)AfAm >90 (>60 ml/min/1.73 sqM) Est GFR (CKD-EPI)NonAf >90 (>60 ml/min/1.73 sqM) Glucose 222 H (74-99) mg/dL Calcium 9.3 (8.4-10.2) mg/dL Magnesium 2.1 (1.6-2.3) mg/dL Total Bilirubin 0.3 (0.2-1.3) mg/dL AST 32 (17-59) U/L ALT 55 (21-72) U/L Alkaline Phosphatase 64 (38-126) U/L Total Creatine Kinase 54 L (55-170) U/L CK-MB (CK-2) 0.7 (0.0-2.4) ng/mL CK-MB (CK-2) Rel Index 1.3 Troponin I <0.012 (0.000-0.034) ng/mL Total Protein 6.5 (6.3-8.2) g/dL Albumin 4.0 (3.5-5.0) g/dL 05/24/18 Range/Units 20:57 WBC (3.8-10.6) k/uL RBC (4.30-5.90) m/uL Hgb (13.0-17.5) gm/dL Hct (39.0-53.0) % MCV (80.0-100.0) fL MCH (25.0-35.0) pg MCHC (31.0-37.0) g/dL RDW (11.5-15.5) % Plt Count (150-450) k/uL Neutrophils % % Lymphocytes % % Monocytes % % Eosinophils % % Basophils % % Neutrophils # (1.3-7.7) k/uL Lymphocytes # (1.0-4.8) k/uL Monocytes # (0-1.0) k/uL Eosinophils # (0-0.7) k/uL Basophils # (0-0.2) k/uL PT 10.3 (9.0-12.0) sec INR 1.0 (<1.2) APTT 23.6 (22.0-30.0) sec Sodium (137-145) mmol/L Potassium (3.5-5.1) mmol/L Chloride (98-107) mmol/L Carbon Dioxide (22-30) mmol/L Anion Gap mmol/L BUN (9-20) mg/dL Creatinine (0.66-1.25) mg/dL Est GFR (CKD-EPI)AfAm (>60 ml/min/1.73 sqM) Est GFR (CKD-EPI)NonAf (>60 ml/min/1.73 sqM) Glucose (74-99) mg/dL Calcium (8.4-10.2) mg/dL Magnesium (1.6-2.3) mg/dL Total Bilirubin (0.2-1.3) mg/dL AST (17-59) U/L ALT (21-72) U/L Alkaline Phosphatase (38-126) U/L Total Creatine Kinase (55-170) U/L CK-MB (CK-2) (0.0-2.4) ng/mL CK-MB (CK-2) Rel Index Troponin I (0.000-0.034) ng/mL Total Protein (6.3-8.2) g/dL Albumin (3.5-5.0) g/dL - Radiology Data Radiology results: image reviewed (Chest x-ray shows no acute process) Disposition Clinical Impression: Chest pain Disposition: ADMITTED IP TO THIS HOSP Is patient prescribed a controlled substance at d/c from ED?: No Referrals: Mine Walsh MD [Primary Care Provider] - 1-2 days Decision Time: 23:13
[2018-05-24 22:18] LABS: Basophils % (A) 1 %; Eosinophils # (A) 0.1 k/uL (0-0.7); Eosinophils % (A) 2 %; HCT 40.1 % (39.0-53.0); HGB 13.7 gm/dL (13.0-17.5); Lymphocytes # (A) 1.4 k/uL (1.0-4.8); Lymphocytes % (A) 31 %; MCHC 34.1 g/dL (31.0-37.0); Mean Platelet Volume 7.7; Monocytes # (A) 0.2 k/uL (0-1.0); Monocytes % (A) 5 %; Neutrophils # (A) 2.7 k/uL (1.3-7.7); Neutrophils % (A) 60 %; Platelet Count 174 k/uL (150-450); RBC 4.55 m/uL (4.30-5.90); RDW 13.9 % (11.5-15.5); WBC 4.6 k/uL (3.8-10.6)
[2018-05-24 22:27] LABS: Partial Thromboplastin Time 23.6 sec (22.0-30.0); Prothrombin Time 10.3 sec (9.0-12.0)
[2018-05-24 22:32] LABS: ALT 55 U/L (21-72); AST 32 U/L (17-59); Alkaline Phosphatase 64 U/L (38-126); Anion Gap 13 mmol/L; Blood Urea Nitrogen 13 mg/dL (9-20); Calcium 9.3 mg/dL (8.4-10.2); Carbon Dioxide 20 mmol/L (22-30); Chloride 106 mmol/L (98-107); Glucose 222 mg/dL (74-99); Magnesium 2.1 mg/dL (1.6-2.3); Potassium 4.1 mmol/L (3.5-5.1); Sodium 139 mmol/L (137-145); Total Bilirubin 0.3 mg/dL (0.2-1.3); Total Protein 6.5 g/dL (6.3-8.2)
[2018-05-24 22:39] LABS: Creatine Kinase 54 U/L (55-170)
--- NOTE | 2018-05-24 22:45 | XR ---
EXAMINATION TYPE: XR chest 2V DATE OF EXAM: 05/24/2018 COMPARISON: 01/29/2018 HISTORY: Chest pain TECHNIQUE: Frontal and lateral views of the chest are obtained. FINDINGS: Heart is normal. There is neurostimulator in the thoracic spine. Lungs are clear of consol idation. There is no pleural effusion. Bony thorax is intact. There are chest leads. IMPRESSION: Normal chest. No change.
[2018-05-24 22:52] LABS: Creatine Kinase MB 0.7 ng/mL (0.0-2.4); Troponin I <0.012 ng/mL (0.000-0.034)
[2018-05-24] MEDS ORDERED: NITROGLYCERIN SL TABS 0.4 MG TAB SUBLINGUAL PRN (23:14)
[2018-05-25] MEDS: NITROGLYCERIN OINT 1 INCH/GM PACKET TOPICAL SCH ×3 (00:11→12:17)
[2018-05-25] MEDS ORDERED: VENLAFAXINE HCL ER 75 MG CAP PO SCH (02:05)
[2018-05-25] MEDS ORDERED: MONTELUKAST 10 MG TAB PO SCH (02:06)
[2018-05-25] MEDS ORDERED: traZODone HCL 50 MG TAB PO SCH (02:06)
[2018-05-25] MEDS ORDERED: METOPROLOL SUCCINATE (ER) 25 MG TAB.ER.24H PO SCH (02:06)
[2018-05-25] MEDS ORDERED: IPRATROPIUM-ALBUTEROL 3 ML NEB INHALATION PRN (02:30)
[2018-05-25] MEDS: GABAPENTIN 300 MG CAP PO SCH ×2 (02:53→08:36)
[2018-05-25] MEDS: DIVALPROEX 500 MG TABLET.DR PO SCH ×2 (02:53→08:36)
[2018-05-25 04:29] LABS: Cholesterol 149 mg/dL (<200); HDL Cholesterol 28 mg/dL (40-60); LDL Cholesterol,Calculated 43 mg/dL (0-99); Triglycerides 388 mg/dL (<150)
[2018-05-25 04:33] LABS: Creatine Kinase 42 U/L (55-170)
[2018-05-25 04:45] LABS: Creatine Kinase MB 0.6 ng/mL (0.0-2.4); Troponin I <0.012 ng/mL (0.000-0.034)
[2018-05-25 07:19] LABS: Glucose,Whole Blood 84 mg/dL (75-99)
[2018-05-25 08:20] VITALS: RESP 14; TEMP 97.8
[2018-05-25] MEDS ORDERED: FENOFIBRATE 54 MG TAB PO SCH (09:00)
[2018-05-25] MEDS ORDERED: ATORVASTATIN 80 MG TAB PO SCH (09:00)
[2018-05-25] MEDS ORDERED: ASPIRIN 325 MG TAB PO SCH (09:00)
[2018-05-25] MEDS ORDERED: metFORMIN 500 MG TAB PO SCH ×2 (09:00)
[2018-05-25 10:11] LABS: Creatine Kinase 32 U/L (55-170)
[2018-05-25 10:24] LABS: Creatine Kinase MB 0.4 ng/mL (0.0-2.4); Troponin I <0.012 ng/mL (0.000-0.034)
--- NOTE | 2018-05-25 11:08 | P.CRDCN ---
History of Present Illness History of present illness: This is Dr. Breaux dictating a consult on this patient The patient was interviewed and examined by me IMPRESSION / ASSESSMENT: 47-year-old male patient presenting with chest discomfort with normal cardiac enzymes and an EKG did does not show any ST segment abnormalities Diabetes type 2 on metformin Dyslipidemia on fenofibrate and statins Hypertension Obesity, status sleep apnea on a BiPAP mask PLAN: Patient may go home from a cardiac standpoint and follow up with his primary document examiner Dr. Menchaca. Continue current medications without any changes HPI 47-year-old male patient presenting with chest discomfort for a few hours did this occurred about 30 minutes after eating. It feels like a tightness in the chest midsternal without any nausea or diaphoresis He ate a large pizza roll or maybe a few and then started experiencing some left -sided chest discomfort that lasted for a few hours. Normal cardiac enzymes He states he has a previous history of an SC. History of diabetes type 2 and dyslipidemia patient is on statins and fenofibrate Obstructive sleep apnea using a BiPAP mask Hypertension ROS: No fever chills or rigors, no cough, phlegm or expectoration, no nausea, vomiting or diarrhea, no hematuria, dysuria, no musculoskeletal complaints, no strokes or seizures, no skin lesions. EXAMINATION Normal blood pressure normal heart rate Breath sounds are clear no rhonchi no crackles Heart sounds are normal normal S1 normal S2 no murmurs or gallops. Abdomen soft nontender Extremities are warm no edema REVIEW OF LABS, ECG Sinus rhythm normal SC and nonspecific ST-T abnormalities no definite evidence for any ischemic changes Chest x-ray is normal per radiology Normal cardiac enzymes 2 normal renal function normal electrolytes Past Medical History Past Medical History: Chest Pain / Angina, Diabetes Mellitus, GERD/Reflux, GI Bleed, Hyperlipidemia, Hypertension, Myocardial Infarction (SC), Osteoarthritis (OA), Sleep Apnea/CPAP/BIPAP Additional Past Medical History / Comment(s): chronic back and neck pain, herniated discs in the neck and the back. mood disturbance.occ ringing in ears, " in 1994 a told me he heard a soft heart murmur' Last Myocardial Infarction Date:: 2004 History of Any Multi-Drug Resistant Organisms: None Reported Past Surgical History: Hernia Repair, Joint Replacement Additional Past Surgical History / Comment(s): rt knee arthroscopy x3, lt knee arthroscopy last date 2012,total rt knee replacement and a revision sx cardiac stent x1 2004, stent placed for kidney stone 07/04/2016. Kidney stent has been removed. COLONOSCOPY. neuro stimulator implant Past Anesthesia/Blood Transfusion Reactions: No Reported Reaction Date of Last Stent Placement:: 2004 Past Psychological History: Anxiety, Bipolar, Depression Smoking Status: Current every day smoker Past Alcohol Use History: None Reported Past Drug Use History: None Reported - Past Family History Father Family Medical History: Congestive Heart Failure (CHF), Deep Vein Thrombosis ( DVT), Myocardial Infarction (SC), Pulmonary Embolus Additional Family Medical History / Comment(s): SC at age 38. "hole in colon" Mother Family Medical History: Cancer, COPD, Diabetes Mellitus, Hyperlipidemia Additional Family Medical History / Comment(s): breast and lung cancer Sister(s) Family Medical History: Diabetes Mellitus Additional Family Medical History / Comment(s): bi-polar, anxiety. hysterectomy Brother(s) History Unknown: Yes Medications and Allergies Home Medications Medication Instructions Recorded Confirmed Type metFORMIN HCL [Glucophage] 500 mg PO DAILY 06/10/14 05/25/18 History Montelukast Sodium [Singulair] 10 mg PO HS 06/01/16 05/25/18 History Albuterol Inhaler [Ventolin Hfa 1 - 2 puff INHALATION RT-Q6H PRN 10/15/17 History Inhaler] Atorvastatin [Lipitor] 40 mg PO DAILY 10/15/17 05/25/18 History Beclomethasone Dipropionate [Qvar 2 puff INHALATION RT-BID 10/15/17 05/25/18 History 80 mcg] Divalproex Sodium 500 mg PO TID 10/15/17 05/25/18 History Fenofibrate Nanocrystallized 72.5 mg PO DAILY 10/15/17 05/25/18 History [Fenofibrate] Gabapentin [Neurontin] 300 mg PO TID 10/15/17 05/25/18 History Metoprolol Succinate (ER) [Toprol 25 mg PO HS 10/15/17 05/25/18 History XL] Venlafaxine HCl [Effexor XR] 150 mg PO HS 10/15/17 05/25/18 History traZODone HCL 150 mg PO HS 10/15/17 05/25/18 History Aspirin 81 mg PO DAILY #30 chew 01/08/18 05/25/18 Rx Allergies Allergy/AdvReac Type Severity Reaction Status Date / Time naproxen [From Naprosyn] Allergy Unknown Rash/Hives Verified 05/25/18 00:43 adhesive tape Allergy Rash/Hives Verified 05/25/18 00:43 carrot Allergy Dyspnea Verified 05/25/18 00:43 chocolate flavor Allergy Dyspnea Verified 05/25/18 00:43 grass pollen-perennial rye, Allergy Dyspnea Verified 05/25/18 00:43 standar ibuprofen Allergy Itching Verified 05/25/18 00:43 mold Allergy Unknown Verified 05/25/18 00:43 Physical Exam Vitals: Vital Signs Temp Pulse Pulse Pulse Resp BP BP 05/25/18 03:58 18 05/25/18 03:53 98.2 F 71 18 103/59 05/25/18 00:47 16 05/25/18 00:30 98.7 F 64 16 133/70 05/24/18 23:48 68 16 126/71 05/24/18 20:43 99 F 87 18 133/74 Pulse Ox 05/25/18 03:58 05/25/18 03:53 97 05/25/18 00:47 05/25/18 00:30 98 05/24/18 23:48 99 05/24/18 20:43 96 Intake and Output 05/24/18 05/25/18 05/25/18 22:59 06:59 14:59 Other: Voiding Method Toilet Weight 95.254 kg Results 05/24/18 20:57 05/24/18 20:57 Cardiac Enzymes 05/24/18 05/24/18 05/25/18 Range/Units 20:57 20:57 03:03 AST 32 (17-59) U/L CK-MB (CK-2) 0.7 0.6 (0.0-2.4) ng/mL Troponin I <0.012 <0.012 (0.000-0.034) ng/mL Coagulation 05/24/18 Range/Units 20:57 PT 10.3 (9.0-12.0) sec APTT 23.6 (22.0-30.0) sec Lipids 05/25/18 Range/Units 03:03 Triglycerides 388 H (<150) mg/dL Cholesterol 149 (<200) mg/dL HDL Cholesterol 28 L (40-60) mg/dL CBC 05/24/18 Range/Units 20:57 WBC 4.6 (3.8-10.6) k/uL RBC 4.55 (4.30-5.90) m/uL Hgb 13.7 (13.0-17.5) gm/dL Hct 40.1 (39.0-53.0) % Plt Count 174 (150-450) k/uL Comprehensive Metabolic Panel 05/24/18 Range/Units 20:57 Sodium 139 (137-145) mmol/L Potassium 4.1 (3.5-5.1) mmol/L Chloride 106 (98-107) mmol/L Carbon Dioxide 20 L (22-30) mmol/L BUN 13 (9-20) mg/dL Creatinine 0.68 (0.66-1.25) mg/dL Glucose 222 H (74-99) mg/dL Calcium 9.3 (8.4-10.2) mg/dL AST 32 (17-59) U/L ALT 55 (21-72) U/L Alkaline Phosphatase 64 (38-126) U/L Total Protein 6.5 (6.3-8.2) g/dL Albumin 4.0 (3.5-5.0) g/dL Current Medications Generic Name Dose Route Start Last Admin Trade Name Freq PRN Reason Stop Dose Admin Albuterol/Ipratropium 3 ml 05/25/18 02:30 Duoneb 0.5 Mg-3 Mg/3 Ml Soln INHALATION RT-QID PRN sob Aspirin 325 mg 05/25/18 09:00 Aspirin PO DAILY [facility] Atorvastatin Calcium 40 mg 05/25/18 09:00 Lipitor PO DAILY [facility] Divalproex Sodium 500 mg 05/25/18 02:15 05/25/18 02:53 Depakote PO 500 mg TID TABITHA Administration Fenofibrate 54 mg 05/25/18 09:00 Lofibra PO DAILY [facility] Gabapentin 300 mg 05/25/18 02:15 05/25/18 02:53 Neurontin PO 300 mg TID TABITHA Administration Metformin HCl 500 mg 05/25/18 09:00 05/25/18 02:53 Glucophage PO 500 mg DAILY TABITHA Administration Metoprolol Succinate 25 mg 05/25/18 02:06 05/25/18 02:53 Toprol Xl PO 25 mg HS TABITHA Administration Montelukast Sodium 10 mg 05/25/18 02:06 05/25/18 02:53 Singulair PO 10 mg HS TABITHA Administration Nitroglycerin 1 inch 05/25/18 00:00 05/25/18 00:11 Nitro-Bid Oint TOPICAL 1 inch Q6HR TABITHA Administration Nitroglycerin 0.4 mg 05/24/18 23:14 Nitrostat SUBLINGUAL Q5M PRN Chest Pain Sodium Chloride 10 ml 05/25/18 09:00 Saline Flush IV BID TABITHA Trazodone HCl 150 mg 05/25/18 02:06 05/25/18 02:56 Desyrel PO 150 mg HS TABITHA Administration Venlafaxine HCl 150 mg 05/25/18 02:05 05/25/18 02:53 Effexor Xr PO 150 mg HS TABITHA Administration Intake and Output 05/24/18 05/25/18 05/25/18 22:59 06:59 14:59 Other: Voiding Method Toilet Weight 95.254 kg 05/24/18 20:57 05/24/18 20:57
[2018-05-25 11:48] VITALS: BP 116/70; PULSE 96
[2018-05-25 12:13] LABS: Glucose,Whole Blood 78 mg/dL (75-99)
[2018-05-25 13:58] LABS: Hemoglobin A1C 5.4 % (4.0-6.0)
--- NOTE | 2018-05-25 15:19 | P.DS ---
Providers Date of admission: 05/24/18 23:14 Attending physician: Selvin Triana Consults: 05/24/18 23:14 Consult Physician Urgent Consulting Provider: Aneesh Hale Consult Reason/Comments: cp Do you want consulting provider notified?: Yes Primary care physician: Nico Beard [facility] Course: This is a pleasant 47 years old male with past medical history of diabetes mellitus, hyperlipidemia, hypertension, coronary artery disease, GI bleed, osteoarthritis, sleep apnea, chronic back and neck pain. He presents because of chest pain of one-day duration. The patient states that started about one day echo prior to admission, the left side radiating across the side to the back and also associated with left jaw pain, it felt like heaviness about 9/10 in severity. However now is completely resolved to 0/10 and is completely resolved. Patient denies any other associated symptoms. No nausea vomiting. No abdominal pain. No dyspnea. No sweating. No dizziness. No fever. No coughing. Patient states that he is back to his normal usual states and he is ready to be discharged home. He also has been evaluated by wood preserving plant laborer Dr. Wang who cleared him for discharge today with a recommendation to follow up with his wood preserving plant laborer Dr. Menchaca in 2-3 weeks, patient is aware of Dr. Wang recommendation and states he will call himself and make appointment, as well as with his PCP Dr. Diego in 1 week as he was instructed. for today is weekend and no appointments could be made by medical staff for him and he is aware. Patient laps and Vitas looks stable. Problems and management plan was discussed with the patient and he verbalized understanding and acceptance Patient found stable and can be discharged home however he needs follow-up as an outpatient. Patient told me he is on to call me the appointments as instructed. Patient did not want any scripts Gen: patient is a AAOx3, no distress CVS: S1-S2, RRR, no murmur Lungs: B/L CTA, no wheezing Abdomen: soft, no distention, no tenderness, positive bowel sounds Extremity: no leg edema or induration Time spent more than 35 minutes Plan - Discharge Summary Discharge Rx Participant: No New Discharge Prescriptions: No Action metFORMIN HCL [Glucophage] 500 mg PO DAILY Montelukast Sodium [Singulair] 10 mg PO HS Albuterol Inhaler [Ventolin Hfa Inhaler] 1 - 2 puff INHALATION RT-Q6H PRN PRN Reason: Shortness Of Breath Metoprolol Succinate (ER) [Toprol XL] 25 mg PO HS Atorvastatin [Lipitor] 40 mg PO DAILY traZODone HCL 150 mg PO HS Venlafaxine HCl [Effexor XR] 150 mg PO HS Gabapentin [Neurontin] 300 mg PO TID Fenofibrate Nanocrystallized [Fenofibrate] 72.5 mg PO DAILY Divalproex Sodium 500 mg PO TID Beclomethasone Dipropionate [Qvar 80 mcg] 2 puff INHALATION RT-BID Aspirin 81 mg PO DAILY #30 chew Discharge Medication List metFORMIN HCL [Glucophage] 500 mg PO DAILY 06/10/14 [History] Montelukast Sodium [Singulair] 10 mg PO HS 06/01/16 [History] Albuterol Inhaler [Ventolin Hfa Inhaler] 1 - 2 puff INHALATION RT-Q6H PRN [History] Atorvastatin [Lipitor] 40 mg PO DAILY 10/15/17 [History] Beclomethasone Dipropionate [Qvar 80 mcg] 2 puff INHALATION RT-BID 10/15/17 [ History] Divalproex Sodium 500 mg PO TID 10/15/17 [History] Fenofibrate Nanocrystallized [Fenofibrate] 72.5 mg PO DAILY 10/15/17 [History] Gabapentin [Neurontin] 300 mg PO TID 10/15/17 [History] Metoprolol Succinate (ER) [Toprol XL] 25 mg PO HS 10/15/17 [History] Venlafaxine HCl [Effexor XR] 150 mg PO HS 10/15/17 [History] traZODone HCL 150 mg PO HS 10/15/17 [History] Aspirin 81 mg PO DAILY #30 chew 01/08/18 [Rx] Follow up Appointment(s)/Referral(s): Rodrigo Menchaca MD [STAFF PHYSICIAN] - 3 Weeks (Patient may go home for chronic standpoint, no changes in medications, follow-up with Dr. Menchaca in 2-3 weeks) Mine Walsh MD [Primary Care Provider] - 1-2 days
--- NOTE | 2018-05-25 21:43 | P.HPIM ---
History of Present Illness PLEASE REFER TO MY DISCHARGE SUMMARY FROM TODAY Past Medical History Past Medical History: Chest Pain / Angina, Diabetes Mellitus, GERD/Reflux, GI Bleed, Hyperlipidemia, Hypertension, Myocardial Infarction ([place]), Osteoarthritis (OA), Sleep Apnea/CPAP/BIPAP Additional Past Medical History / Comment(s): chronic back and neck pain, herniated discs in the neck and the back. mood disturbance.occ ringing in ears, " in 1994 a told me he heard a soft heart murmur' Last Myocardial Infarction Date:: 2004 History of Any Multi-Drug Resistant Organisms: None Reported Past Surgical History: Hernia Repair, Joint Replacement Additional Past Surgical History / Comment(s): rt knee arthroscopy x3, lt knee arthroscopy last date 2012,total rt knee replacement and a revision sx cardiac stent x1 2004, stent placed for kidney stone 07/04/2016. Kidney stent has been removed. COLONOSCOPY. neuro stimulator implant Past Anesthesia/Blood Transfusion Reactions: No Reported Reaction Date of Last Stent Placement:: 2004 Past Psychological History: Anxiety, Bipolar, Depression Smoking Status: Current every day smoker Past Alcohol Use History: None Reported Past Drug Use History: None Reported - Past Family History Father Family Medical History: Congestive Heart Failure (CHF), Deep Vein Thrombosis ( DVT), Myocardial Infarction ([place]), Pulmonary Embolus Additional Family Medical History / Comment(s): [place] at age 38. "hole in colon" Mother Family Medical History: Cancer, COPD, Diabetes Mellitus, Hyperlipidemia Additional Family Medical History / Comment(s): breast and lung cancer Sister(s) Family Medical History: Diabetes Mellitus Additional Family Medical History / Comment(s): bi-polar, anxiety. hysterectomy Brother(s) History Unknown: Yes Medications and Allergies Home Medications Medication Instructions Recorded Confirmed Type metFORMIN HCL [Glucophage] 500 mg PO DAILY 06/10/14 05/25/18 History Montelukast Sodium [Singulair] 10 mg PO HS 06/01/16 05/25/18 History Albuterol Inhaler [Ventolin Hfa 1 - 2 puff INHALATION RT-Q6H PRN 10/15/17 History Inhaler] Atorvastatin [Lipitor] 40 mg PO DAILY 10/15/17 05/25/18 History Beclomethasone Dipropionate [Qvar 2 puff INHALATION RT-BID 10/15/17 05/25/18 History 80 mcg] Divalproex Sodium 500 mg PO TID 10/15/17 05/25/18 History Fenofibrate Nanocrystallized 72.5 mg PO DAILY 10/15/17 05/25/18 History [Fenofibrate] Gabapentin [Neurontin] 300 mg PO TID 10/15/17 05/25/18 History Metoprolol Succinate (ER) [Toprol 25 mg PO HS 10/15/17 05/25/18 History XL] Venlafaxine HCl [Effexor XR] 150 mg PO HS 10/15/17 05/25/18 History traZODone HCL 150 mg PO HS 10/15/17 05/25/18 History Aspirin 81 mg PO DAILY #30 chew 01/08/18 05/25/18 Rx Nitroglycerin Sl Tabs [Nitrostat] 0.4 mg SUBLINGUAL Q5M PRN #20 tab 05/25/18 Rx Allergies Allergy/AdvReac Type Severity Reaction Status Date / Time naproxen [From Naprosyn] Allergy Unknown Rash/Hives Verified 05/25/18 00:43 adhesive tape Allergy Rash/Hives Verified 05/25/18 00:43 carrot Allergy Dyspnea Verified 05/25/18 00:43 chocolate flavor Allergy Dyspnea Verified 05/25/18 00:43 grass pollen-perennial rye, Allergy Dyspnea Verified 05/25/18 00:43 standar ibuprofen Allergy Itching Verified 05/25/18 00:43 mold Allergy Unknown Verified 05/25/18 00:43 Physical Exam Vitals: Vital Signs Temp Pulse Pulse Pulse Resp BP BP 05/25/18 11:47 97.8 F 96 14 116/70 05/25/18 08:19 97.8 F 69 14 107/55 05/25/18 03:58 18 05/25/18 03:53 98.2 F 71 18 103/59 05/25/18 00:47 16 05/25/18 00:30 98.7 F 64 16 133/70 05/24/18 23:48 68 16 126/71 Pulse Ox 05/25/18 11:47 96 05/25/18 08:19 99 05/25/18 03:58 05/25/18 03:53 97 05/25/18 00:47 05/25/18 00:30 98 05/24/18 23:48 99 Intake and Output 05/25/18 05/25/18 05/25/18 06:59 14:59 22:59 Other: Voiding Method Toilet Results CBC & Chem 7: 05/24/18 20:57 05/24/18 20:57 Labs: Abnormal Lab Results - Last 24 Hours (Table) 05/24/18 05/24/18 05/25/18 Range/Units 20:57 20:57 03:03 Carbon Dioxide 20 L (22-30) mmol/L Glucose 222 H (74-99) mg/dL Total Creatine Kinase 54 L 42 L (55-170) U/L Triglycerides (<150) mg/dL HDL Cholesterol (40-60) mg/dL 05/25/18 05/25/18 Range/Units 03:03 09:21 Carbon Dioxide (22-30) mmol/L Glucose (74-99) mg/dL Total Creatine Kinase 32 L (55-170) U/L Triglycerides 388 H (<150) mg/dL HDL Cholesterol 28 L (40-60) mg/dL Thrombosis Risk Factor Assmnt - Choose All That Apply Any of the Below Risk Factors Present?: Yes Each Factor Represents 1 point: Age 41-60 years, Obesity (BMI >25) Other Risk Factors: No Other congenital or acquired thrombophilia - If yes, enter type in comment: No Thrombosis Risk Factor Assessment Total Risk Factor Score: 2 Thrombosis Risk Factor Assessment Level: Low Risk
== END 2018-05-25 16:02 | disposition home or self-care (01) ==
LOC: EC 20:29 → 1SOBS 23:14
PROVIDERS: ADMIT Internal Medicine; ATTEND Internal Medicine
DX: R07.89 Other chest pain (principal); R68.84 Jaw pain; I10 Essential (primary) hypertension; I25.10 Atherosclerotic heart disease of native coronary artery without angina pectoris; K21.9 Gastro-esophageal reflux disease without esophagitis; E78.5 Hyperlipidemia, unspecified; E11.9 Type 2 diabetes mellitus without complications; M19.90 Unspecified osteoarthritis, unspecified site; G47.33 Obstructive sleep apnea (adult) (pediatric); Z99.89 Dependence on other enabling machines and devices; F31.9 Bipolar disorder, unspecified; F41.9 Anxiety disorder, unspecified; G89.29 Other chronic pain; M54.9 Dorsalgia, unspecified; M50.20 Other cervical disc displacement, unspecified cervical region; F17.200 Nicotine dependence, unspecified, uncomplicated; H93.19 Tinnitus, unspecified ear; F39 Unspecified mood [affective] disorder; E66.9 Obesity, unspecified; Z68.31 Body mass index [BMI] 31.0-31.9, adult; Z79.84 Long term (current) use of oral hypoglycemic drugs; Z79.82 Long term (current) use of aspirin; Z79.51 Long term (current) use of inhaled steroids; Z79.899 Other long term (current) drug therapy; Z88.6 Allergy status to analgesic agent; Z88.8 Allergy status to other drugs, medicaments and biological substances; Z91.018 Allergy to other foods; Z91.048 Other nonmedicinal substance allergy status; Z96.9 Presence of functional implant, unspecified; Z96.651 Presence of right artificial knee joint; Z95.5 Presence of coronary angioplasty implant and graft; Z87.442 Personal history of urinary calculi; I25.2 Old myocardial infarction; Z87.19 Personal history of other diseases of the digestive system; Z80.1 Family history of malignant neoplasm of trachea, bronchus and lung; Z83.3 Family history of diabetes mellitus; Z82.5 Family history of asthma and other chronic lower respiratory diseases; Z80.9 Family history of malignant neoplasm, unspecified; Z83.49 Family history of other endocrine, nutritional and metabolic diseases; Z82.49 Family history of ischemic heart disease and other diseases of the circulatory system; Z83.2 Family history of diseases of the blood and blood-forming organs and certain disorders involving the immune mechanism; Z81.8 Family history of other mental and behavioral disorders
CPT/HCPCS: 99285; 36415; 93005; 80061; 80053; 82550 ×2; 82553 ×2; 83735; 84484 ×2; 85025; 85610; 85730; 83036; 71046; G0378 ×2

== ENCOUNTER 2018-06-22 00:10 | Emergency (ER) | payer MEDICARE, OTHER ==
[2018-06-22 01:39] LABS: Basophils % (A) 1 %; Eosinophils # (A) 0.1 k/uL (0-0.7); Eosinophils % (A) 3 %; HCT 39.5 % (39.0-53.0); HGB 13.8 gm/dL (13.0-17.5); Lymphocytes # (A) 1.5 k/uL (1.0-4.8); Lymphocytes % (A) 34 %; MCH 30.9 pg (25.0-35.0); MCHC 34.8 g/dL (31.0-37.0); MCV 88.7 fL (80.0-100.0); Mean Platelet Volume 7.6; Monocytes # (A) 0.3 k/uL (0-1.0); Monocytes % (A) 6 %; Neutrophils # (A) 2.4 k/uL (1.3-7.7); Neutrophils % (A) 53 %; Platelet Count 156 k/uL (150-450); RBC 4.46 m/uL (4.30-5.90); WBC 4.5 k/uL (3.8-10.6)
[2018-06-22 01:47] LABS: Amorphous Sediment,Urine Rare /hpf; Appearance,Urine Cloudy (Clear); Bilirubin,Urine Negative (Negative); Blood,Urine Negative (Negative); Calcium Oxalate Crystals,Urine Occasional /hpf; Color,Urine Yellow; Glucose,Urine (UA) Trace (Negative); Ketones,Urine Negative (Negative); Leukocyte Esterase,Urine Negative (Negative); Mucus,Urine Rare /hpf; Nitrite,Urine Negative (Negative); PH, Urine 6.5 (5.0-8.0); Protein,Urine Negative (Negative); Specific Gravity,Urine 1.017 (1.001-1.035)
--- NOTE | 2018-06-22 01:47 | CT ---
EXAMINATION TYPE: CT abdomen pelvis wo con DATE OF EXAM: 06/22/2018 COMPARISON: 11/17/2016 HISTORY: Right flank pain CT DLP: 659.50 mGycm Automated exposure control for dose reduction was used. TECHNIQUE: Helical acquisition of images was performed from the lung bases through the pelvis. FINDINGS: Lung bases are clear of consolidation. There is no pleural effusion. There is diffuse fatty infiltrat ion of the liver. Heart size is normal. There is no pericardial effusion. There is slight thickening of the left major fissure. Liver is enlarged and measures 25 cm in length. Spleen is enlarged and lit sures 15 cm. The stomach appears normal. There is no pancreatic mass. Gallbladder is contracted. There is no adrenal mass. There is 5 mm calcification interpolar left kidney. There is no hydronephro sis. Ureters are not dilated. There is no retroperitoneal adenopathy. There is implanted device over the left posterior iliac bone. Bladder distends smoothly. There is prostatic calcification. There is no inguinal hernia. There Is no free fluid in the pelvis. The appendix appears normal. there is neurostimulator in the thoracic spine. There is no mesenteric edema or adenopathy. I see no evidence of a bowel obstruction. There is no sig n of free air. There is minor spondylosis at L5-S1 with vacuum disc and spurring of the endplates. I see no bony destructive process. IMPRESSION: NORMAL APPENDIX. HEPATOSPLENOMEGALY UNCHANGED. NONOBSTRUCTING LEFT RENAL CALCULUS IS INCREASED COMPAR ED TO OLD EXAM. FATTY INFILTRATION OF THE LIVER.
[2018-06-22 02:01] LABS: ALT 93 U/L (21-72); AST 27 U/L (17-59); Albumin 4.2 g/dL (3.5-5.0); Alkaline Phosphatase 88 U/L (38-126); Amylase 39 U/L (30-110); Anion Gap 6 mmol/L; Blood Urea Nitrogen 15 mg/dL (9-20); Calcium 9.5 mg/dL (8.4-10.2); Carbon Dioxide 24 mmol/L (22-30); Chloride 107 mmol/L (98-107); Glucose 119 mg/dL (74-99); Lipase 102 U/L (23-300); Potassium 3.8 mmol/L (3.5-5.1); Sodium 137 mmol/L (137-145); Total Bilirubin 0.4 mg/dL (0.2-1.3); Total Protein 6.9 g/dL (6.3-8.2)
[2018-06-22] MEDS ORDERED: DICYCLOMINE 10 MG/ML 2 ML AMP IM STA (02:22)
[2018-06-22 02:27] VITALS: BP 113/66; PULSE 65; RESP 18; TEMP 98.3
--- NOTE | 2018-06-22 02:47 | ED ---
Abdominal Pain HPI - General Chief Complaint: Abdominal Pain Stated Complaint: Abd Pain Time Seen by Provider: 06/22/18 00:23 Source: patient Mode of arrival: ambulatory Limitations: no limitations - History of Present Illness MD Complaint: abdominal pain -: hour(s) Location: RLQ, R flank Radiation: none Migration to: no migration Severity: moderate Quality: cramping Consistency: constant Improves With: nothing Worsens With: nothing Associated Symptoms: denies other symptoms - Related Data Home Medications Medication Instructions Recorded Confirmed metFORMIN HCL [Glucophage] 500 mg PO DAILY 06/10/14 05/25/18 Montelukast Sodium [Singulair] 10 mg PO HS 06/01/16 05/25/18 Albuterol Inhaler [Ventolin Hfa 1 - 2 puff INHALATION RT-Q6H PRN 10/15/17 Inhaler] Atorvastatin [Lipitor] 40 mg PO DAILY 10/15/17 05/25/18 Beclomethasone Dipropionate [Qvar 2 puff INHALATION RT-BID 10/15/17 05/25/18 80 mcg] Divalproex Sodium 500 mg PO TID 10/15/17 05/25/18 Fenofibrate Nanocrystallized 72.5 mg PO DAILY 10/15/17 05/25/18 [Fenofibrate] Gabapentin [Neurontin] 300 mg PO TID 10/15/17 05/25/18 Metoprolol Succinate (ER) [Toprol 25 mg PO HS 10/15/17 05/25/18 XL] Venlafaxine HCl [Effexor XR] 150 mg PO HS 10/15/17 05/25/18 traZODone HCL 150 mg PO HS 10/15/17 05/25/18 Previous Rx's Medication Instructions Recorded Aspirin 81 mg PO DAILY #30 chew 01/08/18 Nitroglycerin Sl Tabs [Nitrostat] 0.4 mg SUBLINGUAL Q5M PRN #20 tab 05/25/18 Allergies Allergy/AdvReac Type Severity Reaction Status Date / Time naproxen [From Naprosyn] Allergy Unknown Rash/Hives Verified 06/22/18 00:20 adhesive tape Allergy Rash/Hives Verified 06/22/18 00:20 carrot Allergy Dyspnea Verified 06/22/18 00:20 chocolate flavor Allergy Dyspnea Verified 06/22/18 00:20 grass pollen-perennial rye, Allergy Dyspnea Verified 06/22/18 00:20 standar ibuprofen Allergy Itching Verified 06/22/18 00:20 mold Allergy Unknown Verified 06/22/18 00:20 Review of Systems ROS Statement: Those systems with pertinent positive or pertinent negative responses have been documented in the HPI. ROS Other: All systems not noted in ROS Statement are negative. Constitutional: Denies: fever, chills Respiratory: Denies: cough, dyspnea Cardiovascular: Denies: chest pain, palpitations, edema Gastrointestinal: Reports: abdominal pain, nausea. Denies: vomiting, diarrhea, melena, hematochezia Genitourinary: Denies: dysuria, frequency, hematuria, discharge, testicular pain Musculoskeletal: Denies: back pain Skin: Denies: rash Neurological: Denies: headache, weakness, numbness Past Medical History Past Medical History: Chest Pain / Angina, Diabetes Mellitus, GERD/Reflux, GI Bleed, Hyperlipidemia, Hypertension, Myocardial Infarction ([place]), Osteoarthritis ([place]), Sleep Apnea/CPAP/BIPAP Additional Past Medical History / Comment(s): chronic back and neck pain, herniated discs in the neck and the back. mood disturbance.occ ringing in ears, " in [address] told me he heard a soft heart murmur' Last Myocardial Infarction Date:: 2004 History of Any Multi-Drug Resistant Organisms: None Reported Past Surgical History: Hernia Repair, Joint Replacement Additional Past Surgical History / Comment(s): rt knee arthroscopy x3, lt knee arthroscopy last date 2012,total rt knee replacement and a revision sx cardiac stent x1 2004, stent placed for kidney stone 07/04/2016. Kidney stent has been removed. COLONOSCOPY. neuro stimulator implant Past Anesthesia/Blood Transfusion Reactions: No Reported Reaction Date of Last Stent Placement:: 2004 Past Psychological History: Anxiety, Bipolar, Depression Smoking Status: Current every day smoker Past Alcohol Use History: None Reported Past Drug Use History: None Reported - Past Family History Father Family Medical History: Congestive Heart Failure (CHF), Deep Vein Thrombosis ( DVT), Myocardial Infarction ([place]), Pulmonary Embolus Additional Family Medical History / Comment(s): [place] at age 38. "hole in colon" Mother Family Medical History: Cancer, COPD, Diabetes Mellitus, Hyperlipidemia Additional Family Medical History / Comment(s): breast and lung cancer Sister(s) Family Medical History: Diabetes Mellitus Additional Family Medical History / Comment(s): bi-polar, anxiety. hysterectomy Brother(s) History Unknown: Yes General Exam Limitations: no limitations General appearance: alert, in no apparent distress Head exam: Present: atraumatic, normocephalic Eye exam: Present: normal appearance. Absent: scleral icterus, conjunctival injection ENT exam: Present: normal oropharynx Respiratory exam: Present: normal lung sounds bilaterally. Absent: respiratory distress, wheezes, rales, rhonchi, stridor, chest wall tenderness Cardiovascular Exam: Present: regular rate, normal rhythm, normal heart sounds. Absent: systolic murmur, diastolic murmur, rubs, gallop GI/Abdominal exam: Present: soft. Absent: distended, tenderness, guarding, rebound, rigid, mass, pulsatile mass, hernia Extremities exam: Present: normal inspection, normal capillary refill. Absent: pedal edema, calf tenderness Back exam: Absent: CVA tenderness (R), CVA tenderness (L) Neurological exam: Present: alert Skin exam: Present: warm, dry, intact, normal color. Absent: rash Course Vital Signs 06/22/18 06/22/18 00:17 02:26 Temperature 98.9 F 98.3 F Pulse Rate 93 65 Respiratory 20 18 Rate Blood Pressure 139/78 113/66 O2 Sat by Pulse 97 97 Oximetry Medical Decision Making - Lab Data Result diagrams: 06/22/18 00:45 06/22/18 00:45 Lab Results 06/22/18 06/22/18 06/22/18 Range/Units 00:45 00:45 00:45 WBC 4.5 (3.8-10.6) k/uL RBC 4.46 (4.30-5.90) m/uL Hgb 13.8 (13.0-17.5) gm/dL Hct 39.5 (39.0-53.0) % MCV 88.7 (80.0-100.0) fL MCH 30.9 (25.0-35.0) pg MCHC 34.8 (31.0-37.0) g/dL RDW 14.0 (11.5-15.5) % Plt Count 156 (150-450) k/uL Neutrophils % 53 % Lymphocytes % 34 % Monocytes % 6 % Eosinophils % 3 % Basophils % 1 % Neutrophils # 2.4 (1.3-7.7) k/uL Lymphocytes # 1.5 (1.0-4.8) k/uL Monocytes # 0.3 (0-1.0) k/uL Eosinophils # 0.1 (0-0.7) k/uL Basophils # 0.0 (0-0.2) k/uL Sodium 137 (137-145) mmol/L Potassium 3.8 (3.5-5.1) mmol/L Chloride 107 (98-107) mmol/L Carbon Dioxide 24 (22-30) mmol/L Anion Gap 6 mmol/L BUN 15 (9-20) mg/dL Creatinine 0.67 (0.66-1.25) mg/dL Est GFR (CKD-EPI)AfAm >90 (>60 ml/min/1.73 sqM) Est GFR (CKD-EPI)NonAf >90 (>60 ml/min/1.73 sqM) Glucose 119 H (74-99) mg/dL Calcium 9.5 (8.4-10.2) mg/dL Total Bilirubin 0.4 (0.2-1.3) mg/dL AST 27 (17-59) U/L ALT 93 H (21-72) U/L Alkaline Phosphatase 88 (38-126) U/L Total Protein 6.9 (6.3-8.2) g/dL Albumin 4.2 (3.5-5.0) g/dL Amylase 39 (30-110) U/L Lipase 102 (23-300) U/L Urine Color Yellow Urine Appearance Cloudy (Clear) Urine pH 6.5 (5.0-8.0) Ur Specific [place] 1.017 (1.001-1.035) Urine Protein Negative (Negative) Urine Glucose (UA) Trace H (Negative) Urine Ketones Negative (Negative) Urine Blood Negative (Negative) Urine Nitrite Negative (Negative) Urine Bilirubin Negative (Negative) Urine Urobilinogen 6.0 (<2.0) mg/dL Ur Leukocyte Esterase Negative (Negative) Calcium Oxalate Crystal Occasional H (None) /hpf Amorphous Sediment Rare H (None) /hpf Urine Mucus Rare H (None) /hpf Disposition Clinical Impression: Abdominal pain Disposition: HOME SELF-CARE Condition: Good Instructions (If sedation given, give patient instructions): Abdominal Pain (ED ) Is patient prescribed a controlled substance at d/c from ED?: No Referrals: Mine Walsh MD [Primary Care Provider] - 1-2 days
[2018-06-22] MEDS ORDERED: MAGNESIUM CITRATE 296 ML BOTTLE PO ONE (03:11)
== END 2018-06-22 03:16 | disposition home or self-care (01) ==
LOC: EC 00:10
DX: R10.31 Right lower quadrant pain (principal); E11.9 Type 2 diabetes mellitus without complications; E78.5 Hyperlipidemia, unspecified; I10 Essential (primary) hypertension; I25.2 Old myocardial infarction; M19.90 Unspecified osteoarthritis, unspecified site; G47.30 Sleep apnea, unspecified; F41.9 Anxiety disorder, unspecified; F32.9 Major depressive disorder, single episode, unspecified; F17.200 Nicotine dependence, unspecified, uncomplicated; Z79.899 Other long term (current) drug therapy; Z79.84 Long term (current) use of oral hypoglycemic drugs; Z88.6 Allergy status to analgesic agent; Z91.048 Other nonmedicinal substance allergy status; Z91.018 Allergy to other foods; Z96.653 Presence of artificial knee joint, bilateral; Z95.5 Presence of coronary angioplasty implant and graft
CPT/HCPCS: 36415; 80053; 82150; 83690; 85025; 81001; 74176; 99284; 96372; J0500

== ENCOUNTER 2018-07-05 11:21 | Observation (INO) | payer MEDICARE, OTHER ==
[2018-07-05] MEDS ORDERED: ASPIRIN 325 MG TAB PO STA (11:50)
[2018-07-05] MEDS ORDERED: SODIUM CHLORIDE 0.9% 500 ML 500 ML IV ONE (11:50)
--- NOTE | 2018-07-05 11:52 | ED ---
General Adult HPI - General Chief complaint: Chest Pain Stated complaint: CHEST PAIN Time Seen by Provider: 07/05/18 11:31 Source: patient, RN notes reviewed, old records reviewed Mode of arrival: ambulatory Limitations: no limitations - History of Present Illness Initial comments: 47-year-old male presents for evaluation of left-sided chest pain. Patient's symptoms began approximately 7 hours prior to arrival. Describes the pain as dull heaviness and pressure in the left side of his chest. Patient does have history of previous [place] approximately 10 years ago. He has history diabetes, he is a current smoker. Reports some mild nausea, no vomiting, no abdominal pain. No fever or chills. No cough. No dyspnea. He does report feeling lightheaded. - Related Data Home Medications Medication Instructions Recorded Confirmed metFORMIN HCL [Glucophage] 500 mg PO DAILY 06/10/14 07/05/18 Montelukast Sodium [Singulair] 10 mg PO HS 06/01/16 07/05/18 Albuterol Inhaler [Ventolin Hfa 1 - 2 puff INHALATION RT-Q6H PRN 10/15/17 Inhaler] Atorvastatin [Lipitor] 40 mg PO DAILY 10/15/17 07/05/18 Beclomethasone Dipropionate [Qvar 2 puff INHALATION RT-BID 10/15/17 07/05/18 80 mcg] Divalproex Sodium 500 mg PO TID 10/15/17 07/05/18 Fenofibrate Nanocrystallized 72.5 mg PO DAILY 10/15/17 07/05/18 [Fenofibrate] Gabapentin [Neurontin] 300 mg PO TID 10/15/17 07/05/18 Metoprolol Succinate (ER) [Toprol 25 mg PO HS 10/15/17 07/05/18 XL] Venlafaxine HCl [Effexor XR] 150 mg PO HS 10/15/17 07/05/18 traZODone HCL 150 mg PO HS 10/15/17 07/05/18 Cephalexin [Keflex] 500 mg PO TID 07/05/18 07/05/18 Previous Rx's Medication Instructions Recorded Aspirin 81 mg PO DAILY #30 chew 01/08/18 Allergies Allergy/AdvReac Type Severity Reaction Status Date / Time naproxen [From Naprosyn] Allergy Unknown Rash/Hives Verified 07/05/18 12:05 adhesive tape Allergy Rash/Hives Verified 07/05/18 12:05 carrot Allergy Dyspnea Verified 07/05/18 12:05 chocolate flavor Allergy Dyspnea Verified 07/05/18 12:05 grass pollen-perennial rye, Allergy Dyspnea Verified 07/05/18 12:05 standar ibuprofen Allergy Itching Verified 07/05/18 12:05 mold Allergy Unknown Verified 07/05/18 12:05 Review of Systems ROS Statement: Those systems with pertinent positive or pertinent negative responses have been documented in the HPI. ROS Other: All systems not noted in ROS Statement are negative. Past Medical History Past Medical History: Chest Pain / Angina, Diabetes Mellitus, GERD/Reflux, GI Bleed, Hyperlipidemia, Hypertension, Myocardial Infarction ([place]), Osteoarthritis ([place]), Sleep Apnea/CPAP/BIPAP Additional Past Medical History / Comment(s): chronic back and neck pain, herniated discs in the neck and the back. mood disturbance.occ ringing in ears, " in [address] told me he heard a soft heart murmur' Last Myocardial Infarction Date:: 2004 History of Any Multi-Drug Resistant Organisms: None Reported Past Surgical History: Hernia Repair, Joint Replacement Additional Past Surgical History / Comment(s): rt knee arthroscopy x3, lt knee arthroscopy last date 2012,total rt knee replacement and a revision sx cardiac stent x1 2004, stent placed for kidney stone 07/04/2016. Kidney stent has been removed. COLONOSCOPY. neuro stimulator implant Past Anesthesia/Blood Transfusion Reactions: No Reported Reaction Date of Last Stent Placement:: 2004 Past Psychological History: Anxiety, Bipolar, Depression Smoking Status: Current every day smoker Past Alcohol Use History: None Reported Past Drug Use History: None Reported - Past Family History Father Family Medical History: Congestive Heart Failure (CHF), Deep Vein Thrombosis ( DVT), Myocardial Infarction ([place]), Pulmonary Embolus Additional Family Medical History / Comment(s): [place] at age 38. "hole in colon" Mother Family Medical History: Cancer, COPD, Diabetes Mellitus, Hyperlipidemia Additional Family Medical History / Comment(s): breast and lung cancer Sister(s) Family Medical History: Diabetes Mellitus Additional Family Medical History / Comment(s): bi-polar, anxiety. hysterectomy Brother(s) History Unknown: Yes General Exam Limitations: no limitations General appearance: alert Head exam: Present: atraumatic, normocephalic Eye exam: Present: normal appearance, PERRL ENT exam: Present: normal exam Neck exam: Present: normal inspection. Absent: tenderness, meningismus Respiratory exam: Present: normal lung sounds bilaterally. Absent: respiratory distress, wheezes Cardiovascular Exam: Present: regular rate, normal rhythm GI/Abdominal exam: Present: soft. Absent: distended, tenderness, guarding Extremities exam: Present: normal inspection, normal capillary refill. Absent: pedal edema Back exam: Present: normal inspection, full ROM Neurological exam: Present: alert, oriented X3, CN II-XII intact. Absent: motor sensory deficit Psychiatric exam: Present: normal affect, normal mood Skin exam: Present: warm, dry, intact. Absent: cyanosis, diaphoretic Course Vital Signs 07/05/18 07/05/18 11:33 11:47 Temperature 98.0 F Pulse Rate 78 Respiratory 18 18 Rate O2 Sat by Pulse 97 Oximetry EKG Findings - EKG Comments: EKG Findings:: EKG: Normal sinus rhythm, no ST segment elevation T-wave flattening and inversion in aVL, rate of 85, WA interval 168, QRS duration 72, QTC 397 Medical Decision Making - Medical Decision Making 47-year-old male with chest pain and epigastric pain. History of CO. EKG is negative for definitive signs of ischemia. Chest x-ray negative for acute cardiopulmonary disease. Patient has normal CBC, normal CMP, mildly elevated lipase at 736. Initial troponin is negative. Ultrasound is obtained, does show hepatic steatosis, hepatomegaly, and borderline dilated common bile duct. Pancreas is not visualized. Given the patient's risk factors, we will keep the patient in observation first repeat cardiac enzymes, I doubt cardiac ischemia at this time. We will ask gastroenterology to evaluate the patient for pancreatitis. We will repeat lipase and CMP in the morning. He was discussed with the physician will accept - Lab Data Result diagrams: 07/05/18 11:40 07/05/18 11:40 Lab Results 07/05/18 07/05/18 07/05/18 Range/Units 11:40 11:40 11:40 WBC 4.2 (3.8-10.6) k/uL RBC 4.46 (4.30-5.90) m/uL Hgb 13.2 (13.0-17.5) gm/dL Hct 39.6 (39.0-53.0) % MCV 88.6 (80.0-100.0) fL MCH 29.6 (25.0-35.0) pg MCHC 33.3 (31.0-37.0) g/dL RDW 13.5 (11.5-15.5) % Plt Count 165 (150-450) k/uL Neutrophils % 68 % Lymphocytes % 22 % Monocytes % 6 % Eosinophils % 2 % Basophils % 1 % Neutrophils # 2.8 (1.3-7.7) k/uL Lymphocytes # 0.9 L (1.0-4.8) k/uL Monocytes # 0.3 (0-1.0) k/uL Eosinophils # 0.1 (0-0.7) k/uL Basophils # 0.0 (0-0.2) k/uL PT (9.0-12.0) sec INR (<1.2) APTT (22.0-30.0) sec Sodium 140 (137-145) mmol/L Potassium 4.6 (3.5-5.1) mmol/L Chloride 104 (98-107) mmol/L Carbon Dioxide 30 (22-30) mmol/L Anion Gap 6 mmol/L BUN 16 (9-20) mg/dL Creatinine 0.79 (0.66-1.25) mg/dL Est GFR (CKD-EPI)AfAm >90 (>60 ml/min/1.73 sqM) Est GFR (CKD-EPI)NonAf >90 (>60 ml/min/1.73 sqM) Glucose 133 H (74-99) mg/dL Calcium 9.3 (8.4-10.2) mg/dL Magnesium 2.2 (1.6-2.3) mg/dL Total Bilirubin 0.4 (0.2-1.3) mg/dL AST 24 (17-59) U/L ALT 48 (21-72) U/L Alkaline Phosphatase 75 (38-126) U/L Total Creatine Kinase 43 L (55-170) U/L CK-MB (CK-2) 0.3 (0.0-2.4) ng/mL CK-MB (CK-2) Rel Index 0.7 Troponin I <0.012 (0.000-0.034) ng/mL Total Protein 6.7 (6.3-8.2) g/dL Albumin 4.2 (3.5-5.0) g/dL Lipase 736 H (23-300) U/L 07/05/18 Range/Units 11:40 WBC (3.8-10.6) k/uL RBC (4.30-5.90) m/uL Hgb (13.0-17.5) gm/dL Hct (39.0-53.0) % MCV (80.0-100.0) fL MCH (25.0-35.0) pg MCHC (31.0-37.0) g/dL RDW (11.5-15.5) % Plt Count (150-450) k/uL Neutrophils % % Lymphocytes % % Monocytes % % Eosinophils % % Basophils % % Neutrophils # (1.3-7.7) k/uL Lymphocytes # (1.0-4.8) k/uL Monocytes # (0-1.0) k/uL Eosinophils # (0-0.7) k/uL Basophils # (0-0.2) k/uL PT 10.1 (9.0-12.0) sec INR 0.9 (<1.2) APTT 22.1 (22.0-30.0) sec Sodium (137-145) mmol/L Potassium (3.5-5.1) mmol/L Chloride (98-107) mmol/L Carbon Dioxide (22-30) mmol/L Anion Gap mmol/L BUN (9-20) mg/dL Creatinine (0.66-1.25) mg/dL Est GFR (CKD-EPI)AfAm (>60 ml/min/1.73 sqM) Est GFR (CKD-EPI)NonAf (>60 ml/min/1.73 sqM) Glucose (74-99) mg/dL Calcium (8.4-10.2) mg/dL Magnesium (1.6-2.3) mg/dL Total Bilirubin (0.2-1.3) mg/dL AST (17-59) U/L ALT (21-72) U/L Alkaline Phosphatase (38-126) U/L Total Creatine Kinase (55-170) U/L CK-MB (CK-2) (0.0-2.4) ng/mL CK-MB (CK-2) Rel Index Troponin I (0.000-0.034) ng/mL Total Protein (6.3-8.2) g/dL Albumin (3.5-5.0) g/dL Lipase (23-300) U/L Disposition Clinical Impression: Chest pain, Pancreatitis Disposition: ADMITTED IP TO [facility] Condition: Stable Is patient prescribed a controlled substance at d/c from ED?: No Referrals: Mine Walsh MD [Primary Care Provider] - 1-2 days Decision to Admit Reason: Admit from EC Decision Date: 07/05/18 Decision Time: 14:52
[2018-07-05 12:24] LABS: Basophils % (A) 1 %; Eosinophils # (A) 0.1 k/uL (0-0.7); Eosinophils % (A) 2 %; HCT 39.6 % (39.0-53.0); HGB 13.2 gm/dL (13.0-17.5); Lymphocytes # (A) 0.9 k/uL (1.0-4.8); Lymphocytes % (A) 22 %; MCH 29.6 pg (25.0-35.0); MCHC 33.3 g/dL (31.0-37.0); MCV 88.6 fL (80.0-100.0); Mean Platelet Volume 7.3; Monocytes # (A) 0.3 k/uL (0-1.0); Monocytes % (A) 6 %; Neutrophils # (A) 2.8 k/uL (1.3-7.7); Neutrophils % (A) 68 %; Platelet Count 165 k/uL (150-450); RBC 4.46 m/uL (4.30-5.90); RDW 13.5 % (11.5-15.5); WBC 4.2 k/uL (3.8-10.6)
[2018-07-05 12:36] LABS: INR 0.9 (<1.2); Partial Thromboplastin Time 22.1 sec (22.0-30.0); Prothrombin Time 10.1 sec (9.0-12.0)
[2018-07-05 12:38] LABS: ALT 48 U/L (21-72); AST 24 U/L (17-59); Albumin 4.2 g/dL (3.5-5.0); Alkaline Phosphatase 75 U/L (38-126); Anion Gap 6 mmol/L; Blood Urea Nitrogen 16 mg/dL (9-20); Calcium 9.3 mg/dL (8.4-10.2); Carbon Dioxide 30 mmol/L (22-30); Chloride 104 mmol/L (98-107); Glucose 133 mg/dL (74-99); Lipase 736 U/L (23-300); Magnesium 2.2 mg/dL (1.6-2.3); Potassium 4.6 mmol/L (3.5-5.1); Sodium 140 mmol/L (137-145); Total Bilirubin 0.4 mg/dL (0.2-1.3); Total Protein 6.7 g/dL (6.3-8.2)
[2018-07-05 12:47] LABS: Creatine Kinase 43 U/L (55-170)
--- NOTE | 2018-07-05 12:58 | XR ---
EXAMINATION TYPE: XR chest 2V DATE OF EXAM: 07/05/2018 COMPARISON: Prior chest x-ray 05/24/2018 HISTORY: Chest pain TECHNIQUE: Frontal and lateral views of the chest are obtained. FINDINGS: There is been interval placement of an stimulator leads which are present over the upper po sterior chest coursing cephalad to the extent of the film, there are overlying yue. Thoracic cord stimulator is again seen. No evident airspace disease, pneumothorax, or pleural effusion. Cardiac me diastinal silhouette, pulmonary vascularity and kaylin are unchanged. There are cardiac leads. IMPRESSION: No acute cardiopulmonary process. Postop changes.
[2018-07-05 13:00] LABS: Creatine Kinase MB 0.3 ng/mL (0.0-2.4); Troponin I <0.012 ng/mL (0.000-0.034)
--- NOTE | 2018-07-05 14:30 | US ---
EXAMINATION TYPE: US gallbladder DATE OF EXAM: 07/05/2018 COMPARISON: CT 06/22/2018 CLINICAL HISTORY: Pain. Chest pain per patient EXAM MEASUREMENTS: Liver Length: 20.4 cm Gallbladder Wall: 0.2 cm CBD: 0.6 cm CHD: 0.6 cm Right Kidney: 11.3 x 5.6 x 5.4 cm Pancreas: Tail obscured by overlying bowel gas Liver: Enlarged in size and coarse in appearance. Increased attenuation, decreased visualization of vessels suggestive of fatty infiltrate Gallbladder: wnl Evidence for sonographic Castellano's sign: neg CBD: Borderline dilated CHD: wnl Right Kidney: wnl, cortical medullary differentiation is maintained. There is no ascites. IMPRESSION: Correlate for hepatic steatosis. There is hepatomegaly. Borderline dilation of the common bile duct. Limited exam.
[2018-07-05] MEDS ORDERED: ONDANSETRON 4 MG/2 ML VIAL IVP PRN (14:46)
[2018-07-05] MEDS ORDERED: NALOXONE 0.4 MG/ML 1 ML VIAL IV PRN (14:46)
[2018-07-05] MEDS ORDERED: PANTOPRAZOLE 40 MG/10 ML VIAL IVP STA (14:49)
[2018-07-05] MEDS: SODIUM CHLORIDE 0.9% 1,000 ML IV SCH (15:27)
[2018-07-05 16:06] VITALS: BMI 31.7
[2018-07-05 17:26] LABS: Creatine Kinase 38 U/L (55-170)
[2018-07-05 17:40] LABS: Creatine Kinase MB 0.3 ng/mL (0.0-2.4); Troponin I <0.012 ng/mL (0.000-0.034)
[2018-07-05] MEDS ORDERED: ALBUTEROL NEBULIZED 2.5 MG/3 ML INHALATION PRN (18:25)
[2018-07-05] MEDS ORDERED: ACETAMINOPHEN TAB 325 MG TAB PO PRN (18:28)
[2018-07-05 20:10] LABS: Glucose,Whole Blood 135 mg/dL (75-99)
[2018-07-05] MEDS: PANTOPRAZOLE 40 MG/10 ML VIAL IVP SCH (21:10)
[2018-07-05] MEDS: MONTELUKAST 10 MG TAB PO SCH (21:10)
[2018-07-05] MEDS: GABAPENTIN 300 MG CAP PO SCH (21:10)
[2018-07-05] MEDS: ATORVASTATIN 40 MG TAB PO SCH (21:10)
[2018-07-05] MEDS: METOPROLOL SUCCINATE (ER) 25 MG TAB.ER.24H PO SCH (21:11)
[2018-07-05] MEDS: DIVALPROEX 500 MG TABLET.DR PO SCH (21:12)
[2018-07-05] MEDS: VENLAFAXINE HCL ER 150 MG CAP PO SCH (21:12)
[2018-07-05] MEDS: traZODone HCL 50 MG TAB PO SCH (21:17)
[2018-07-05] MEDS: INSULIN ASPART (NovoLOG) 100 UNIT/ML VIAL SQ SCH (22:30)
[2018-07-06 01:20] LABS: Creatine Kinase MB 0.4 ng/mL (0.0-2.4); Troponin I <0.012 ng/mL (0.000-0.034)
[2018-07-06 01:23] LABS: Creatine Kinase 41 U/L (55-170)
[2018-07-06 06:38] LABS: Glucose,Whole Blood 99 mg/dL (75-99)
[2018-07-06] MEDS: INSULIN ASPART (NovoLOG) 100 UNIT/ML VIAL SQ SCH ×4 (07:49→21:36)
[2018-07-06 08:25] LABS: Basophils % (A) 0 %; Eosinophils # (A) 0.1 k/uL (0-0.7); Eosinophils % (A) 2 %; HCT 40.2 % (39.0-53.0); HGB 13.1 gm/dL (13.0-17.5); Lymphocytes # (A) 1.6 k/uL (1.0-4.8); Lymphocytes % (A) 33 %; MCH 29.3 pg (25.0-35.0); MCHC 32.6 g/dL (31.0-37.0); MCV 89.9 fL (80.0-100.0); Mean Platelet Volume 9.1; Monocytes # (A) 0.3 k/uL (0-1.0); Monocytes % (A) 6 %; Neutrophils # (A) 2.7 k/uL (1.3-7.7); Neutrophils % (A) 57 %; Platelet Count 149 k/uL (150-450); RBC 4.48 m/uL (4.30-5.90); RDW 13.7 % (11.5-15.5); WBC 4.8 k/uL (3.8-10.6)
[2018-07-06] MEDS: PANTOPRAZOLE 40 MG/10 ML VIAL IVP SCH ×2 (08:31→21:33)
[2018-07-06] MEDS: GABAPENTIN 300 MG CAP PO SCH ×3 (08:32→23:06)
[2018-07-06] MEDS: ASPIRIN 81 MG PO SCH (08:32)
[2018-07-06 08:35] LABS: ALT 64 U/L (21-72); AST 44 U/L (17-59); Albumin 3.9 g/dL (3.5-5.0); Alkaline Phosphatase 67 U/L (38-126); Anion Gap 5 mmol/L; Blood Urea Nitrogen 13 mg/dL (9-20); Calcium 9.3 mg/dL (8.4-10.2); Carbon Dioxide 32 mmol/L (22-30); Chloride 106 mmol/L (98-107); Glucose 91 mg/dL (74-99); Lipase 94 U/L (23-300); Sodium 143 mmol/L (137-145); Total Bilirubin 0.5 mg/dL (0.2-1.3); Total Protein 6.3 g/dL (6.3-8.2)
[2018-07-06] MEDS: DIVALPROEX 500 MG TABLET.DR PO SCH ×3 (09:16→22:21)
--- NOTE | 2018-07-06 10:51 | P.HPIM ---
History of Present Illness H&P Date: 07/06/18 Chief Complaint: Chest pain and epigastric pain Very pleasant 47-year-old gentleman comes in for evaluation of chest pain. The patient says that he was okay until yesterday when he started having pain which she described as dull and pressure-like on the left side of the chest. He was also having pain in the epigastric area. He felt nauseous but did not throw up. He otherwise did not complain of any shortness of breath or cough, no vomiting, no diarrhea constipation, noting only numbness on his extremities, and additional rest. He did not feel lightheaded or dizzy, did not complain of any fever or chills. Next ER course the patient had extensive workup done in the ER. He had an EKG which shows no ST-T wave changes. Troponins are negative. Labwork was done which showed WBC 4.2 hemoglobin 13 platelets 165 sodium 140 potassium 4.6 BUN 16 creatinine 0.79 lipase was 736. Patient's wasn't clear liquid diet, given IV fluids, pain medications and admitted to the hospitalist service for further evaluation and management. Cardiology and gastroenterology Was Consulted Review of Systems All systems: negative Past Medical History Past Medical History: Chest Pain / Angina, Diabetes Mellitus, GERD/Reflux, GI Bleed, Hyperlipidemia, Hypertension, Myocardial Infarction (SC), Osteoarthritis (OA), Sleep Apnea/CPAP/BIPAP Additional Past Medical History / Comment(s): chronic back and neck pain(has lumbar and cervial nuero stimulators), herniated discs in the neck and the back. mood disturbance.occ ringing in ears, " in [address] told me he heard a soft heart murmur', uses cpap machine Last Myocardial Infarction Date:: 2004 History of Any Multi-Drug Resistant Organisms: None Reported Past Surgical History: Heart Catheterization, Hernia Repair, Joint Replacement Additional Past Surgical History / Comment(s): rt knee arthroscopy x3, lt knee arthroscopy last date 2012,total rt knee replacement and a revision sx cardiac stent x1 2004, stent placed for kidney stone 07/04/2016. Kidney stent has been removed. COLONOSCOPY. neuro stimulator implant cervial and recent another one in lumbar area pt stated he still has yue in place from procedure. Past Anesthesia/Blood Transfusion Reactions: No Reported Reaction Date of Last Stent Placement:: 2004 Smoking Status: Current every day smoker - Past Family History Father Family Medical History: Congestive Heart Failure (CHF), Deep Vein Thrombosis ( DVT), Myocardial Infarction (SC), Pulmonary Embolus Additional Family Medical History / Comment(s): SC at age 38. "hole in colon" Mother Family Medical History: Cancer, COPD, Diabetes Mellitus, Hyperlipidemia Additional Family Medical History / Comment(s): breast and lung cancer Sister(s) Family Medical History: Diabetes Mellitus Additional Family Medical History / Comment(s): bi-polar, anxiety. hysterectomy Brother(s) History Unknown: Yes Medications and Allergies Home Medications Medication Instructions Recorded Confirmed Type metFORMIN HCL [Glucophage] 500 mg PO DAILY 06/10/14 07/05/18 History Montelukast Sodium [Singulair] 10 mg PO HS 06/01/16 07/05/18 History Albuterol Inhaler [Ventolin Hfa 1 - 2 puff INHALATION RT-Q6H PRN 10/15/17 History Inhaler] Atorvastatin [Lipitor] 40 mg PO DAILY 10/15/17 07/05/18 History Beclomethasone Dipropionate [Qvar 2 puff INHALATION RT-BID 10/15/17 07/05/18 History 80 mcg] Divalproex Sodium 500 mg PO TID 10/15/17 07/05/18 History Fenofibrate Nanocrystallized 72.5 mg PO DAILY 10/15/17 07/05/18 History [Fenofibrate] Gabapentin [Neurontin] 300 mg PO TID 10/15/17 07/05/18 History Metoprolol Succinate (ER) [Toprol 25 mg PO HS 10/15/17 07/05/18 History XL] Venlafaxine HCl [Effexor XR] 150 mg PO HS 10/15/17 07/05/18 History traZODone HCL 150 mg PO HS 10/15/17 07/05/18 History Aspirin 81 mg PO DAILY #30 chew 01/08/18 07/05/18 Rx Cephalexin [Keflex] 500 mg PO TID 07/05/18 07/05/18 History Allergies Allergy/AdvReac Type Severity Reaction Status Date / Time naproxen [From Naprosyn] Allergy Unknown Rash/Hives Verified 07/05/18 12:05 adhesive tape Allergy Rash/Hives Verified 07/05/18 12:05 carrot Allergy Dyspnea Verified 07/05/18 12:05 chocolate flavor Allergy Dyspnea Verified 07/05/18 12:05 grass pollen-perennial rye, Allergy Dyspnea Verified 07/05/18 12:05 standar ibuprofen Allergy Itching Verified 07/05/18 12:05 mold Allergy Unknown Verified 07/05/18 12:05 Physical Exam Vitals: Vital Signs Temp Pulse Pulse Resp BP BP Pulse Ox 07/06/18 08:00 98.1 F 65 16 115/70 96 07/06/18 03:47 98.3 F 67 16 109/62 96 07/06/18 03:30 18 07/05/18 23:44 98.3 F 66 18 105/64 94 L 07/05/18 23:18 16 07/05/18 19:34 98.2 F 68 16 120/74 99 07/05/18 18:15 98.2 F 74 18 135/82 99 07/05/18 17:45 71 18 118/80 96 07/05/18 17:40 98.2 F 71 18 118/80 99 07/05/18 16:45 71 18 122/65 98 07/05/18 16:00 70 18 115/75 97 07/05/18 11:47 18 07/05/18 11:33 98.0 F 78 18 97 Intake and Output 07/05/18 07/06/18 07/06/18 22:59 06:59 14:59 Other: Voiding Method Toilet Toilet # Voids 1 1 On exam, alert and oriented x3. HEENT: Conjunctivae normal. eyes normal. NECK: No JVD. No thyroid enlargement. No LNs CARDIOVASCULAR: S1, S2 heard RESPIRATION: Breath sounds diminished in the bases. No rhonchi or crackles. No bronchial breathing. ABDOMEN: Soft, mild tenderness appreciated in the epigastric area, no guarding no rigidity and no rebound tenderness appreciated LEGS: No edema. no swelling NERVOUS SYSTEM: Cranial N 2-12 grossly normal. Moves all 4 limbs. No focal deficits. No sensory deficit. No signs of cerebellar dysfucntion. Skin: no ulcer no rash Results CBC & Chem 7: 07/06/18 08:06 07/06/18 08:06 Labs: Abnormal Lab Results - Last 24 Hours (Table) 0207/05/18 07/05/18 Range/Units 11:40 11:40 11:40 Plt Count (150-450) k/uL Lymphocytes # 0.9 L (1.0-4.8) k/uL Carbon Dioxide (22-30) mmol/L Glucose 133 H (74-99) mg/dL POC Glucose (mg/dL) (75-99) mg/dL Total Creatine Kinase 43 L (55-170) U/L Lipase 736 H (23-300) U/L 07/05/18 07/05/18 07/05/18 Range/Units 16:43 20:08 23:42 Plt Count (150-450) k/uL Lymphocytes # (1.0-4.8) k/uL Carbon Dioxide (22-30) mmol/L Glucose (74-99) mg/dL POC Glucose (mg/dL) 135 H (75-99) mg/dL Total Creatine Kinase 38 L 41 L (55-170) U/L Lipase (23-300) U/L 07/06/18 07/06/18 Range/Units 08:06 08:06 Plt Count 149 L (150-450) k/uL Lymphocytes # (1.0-4.8) k/uL Carbon Dioxide 32 H (22-30) mmol/L Glucose (74-99) mg/dL POC Glucose (mg/dL) (75-99) mg/dL Total Creatine Kinase (55-170) U/L Lipase (23-300) U/L Thrombosis Risk Factor Assmnt - Choose All That Apply Any of the Below Risk Factors Present?: Yes Each Factor Represents 1 point: Age 41-60 years, Obesity (BMI >25) Other Risk Factors: Yes Each Risk Factor Represents 3 Points: Elevated Serum Homocysteine Thrombosis Risk Factor Assessment Total Risk Factor Score: 5 Thrombosis Risk Factor Assessment Level: High Risk Assessment and Plan Assessment: Assessment - Chest pain need to rule out the cause, cardiology on board - Acute pancreatitis - Hypertension - Diabetes - Bipolar disorder - Hyperlipidemia Plan - We will admit the patient to observation - Cardiology on board, will wait for the recommendations - Patient apparently was admitted GI who advanCED the diet to regular from clear liquids. Patient says that he's having a little more pain after eating. - We'll monitor him and see how he does. If his pain increases exponentially, will put him nothing by mouth, start him on fluids and make him inpatient. - We'll resume the patient's home medications for now - DVT and GI prophylaxis - Patient is an observation - Patient is full code Time with Patient: Greater than 30
[2018-07-06 11:36] LABS: Glucose,Whole Blood 178 mg/dL (75-99)
--- NOTE | 2018-07-06 13:59 | CONS ---
CONSULTATION Mr. Burnham is a 47-year-old male with known history of hypertension, hyperlipidemia, diabetes mellitus and chronic tobacco use who presented with symptoms of nausea, abdominal pain, dizziness and chest discomfort. The patient has been followed by Dr. Roc Menchaca on a regular basis and in December of 2017 he underwent cardiac catheterization and was found to have no evidence of obstructive coronary artery disease. Yesterday while he was sitting he had an episode of chest discomfort and felt nauseated, abdominal pain and felt dizzy. He had no palpitation. His breathing was unchanged. He is not very active physically. He came into the emergency room and subsequently was admitted. The patient has no prior history of congestive heart failure. He carries a diagnosis of myocardial infarction, although the cardiac catheterization that was performed in December of 2017 revealed no evidence of obstructive disease and he had normal left ventricle systolic function. He has no peripheral edema. No palpitation. No documented malignant arrhythmia. His coronary risk factors are remarkable for the history of hypertension, hyperlipidemia, diabetes mellitus, and he smokes about a pack a day. MEDICATIONS: Include: 1. Trazodone. 2. Metformin 500 mg daily. 3. Effexor. 4. Singulair. 5. Toprol-XL 25 mg daily. 6. Gabapentin. 7. Fenofibrate. 8. Keflex. 9. Lipitor 40 mg daily. 10.Aspirin once a day. 11.Ventolin. REVIEW OF SYSTEMS: RESPIRATORY SYSTEM: He has some dyspnea on exertion, history of chronic tobacco use. GI SYSTEM: He has mild nausea. No GI bleeding. SYSTEM: No dysuria or hematuria. NERVOUS SYSTEM: No stroke or seizure. SOCIAL HISTORY: He smokes and drinks coffee but denies alcohol intake. PHYSICAL EXAMINATION: Wuljr-foat-hyhn-old male, alert, oriented, in no apparent distress. VITAL SIGNS: Blood pressure 115/70 with a heart rate in the 60s. HEAD: Normocephalic. Eyes: Sclerae anicteric. NECK: Good carotid upstroke. No bruit. No jugular venous distention. LUNGS: Clear to auscultation. HEART: Regular rate, rhythm. S1, S2. No S3. No rub. ABDOMEN: Soft. Mild tenderness in the left upper quadrant. No rebound. Positive bowel sounds. EXTREMITIES: No edema. Intact distal pulses. LAB DATA/IMAGING: Lab data revealed troponin less than 0.012. Lipase of 736. BUN and creatinine of 16 and 0.79. Potassium 4.6, hemoglobin 13.2. EKG revealed sinus mechanism, normal axis and intervals with nonspecific ST-T wave changes. Chest x-ray shows no acute infiltrate. Gallbladder ultrasound raised the question of hepatic steatosis. IMPRESSION: 1. Chest discomfort, atypical for ischemic heart disease. 2. Hypertension. 3. Hyperlipidemia. 4. Diabetes mellitus. 5. Elevated lipase. 6. Chronic tobacco use. RECOMMENDATIONS: From the cardiac standpoint, there is no evidence to suggest any cardiac abnormality. No cardiac workup is needed at this time. We will see him on as-needed basis. Please feel free to call us for any questions. MMODL / IJN: [id number] /
--- NOTE | 2018-07-06 15:32 | CONS ---
CONSULTATION REQUESTING PHYSICIAN: Dr. Walsh. REASON FOR CONSULTATION: Epigastric pain and chest pain. HISTORY OF PRESENT ILLNESS: The patient is a 47 -year-old pleasant white male, admitted to the hospital with chest pain and epigastric pain that started 2 days ago. Initially started as epigastric chest pain, progressively the pain got worse, became somewhat short of breath and came into the emergency room. He had an EKG and troponins done that were negative. Subsequently he started experiencing epigastric discomfort and hence he was placed in observation. He had a couple of episodes of nausea, vomiting. This morning he is feeling better. The chest pain has resolved. The abdominal pain is still persistent. He never had these symptoms in the past. Denies any peptic ulcer disease or recent NSAID use. Denies any melena or rectal bleeding. He has history of coronary artery disease in the past and follows with Dr. Roc Menchaca status post MN 10 years ago. PAST MEDICAL HISTORY: Diabetes mellitus, hypertension, hyperlipidemia, gastroesophageal reflux disease, status post MN 10 years ago, degenerative joint disease and sleep apnea. MEDICATIONS: At home include Glucophage, singular, Ventolin, Lipitor, , fenofibrate, Neurontin, Toprol, Effexor, trazodone, Keflex. ALLERGIES: NAPROXEN AND MOTRIN. SOCIAL HISTORY: Chronic smoker but no alcohol use. FAMILY HISTORY: Father has congestive heart failure and DVT. Mother has diabetes mellitus. Hyperlipidemia. Sister has diabetes mellitus. REVIEW OF SYSTEMS: Cardiopulmonary: No chest pain, no shortness of breath. Genitourinary: No dysuria or hematuria. Musculoskeletal unremarkable. Skin unremarkable. Endocrine unremarkable. Psychiatric unremarkable. Neurology unremarkable. ENT/Vision: Unremarkable. Constitutional: No recent weight loss. No fevers, chills or night sweats. PHYSICAL EXAMINATION: GENERAL: He appears comfortable in no apparent distress. VITAL SIGNS: Vital signs are stable. Blood pressure 109/62, pulse rate 67, temperature 98.3. HEENT: Unremarkable. Conjunctivae pink. Sclerae anicteric. Oral cavity no lesions. NECK: No jugular venous distention or lymph node enlargement. CHEST: Clear to auscultation. HEART: Regular rate and rhythm. ABDOMEN: Soft. Mild tenderness in the epigastric area. Bowel sounds are positive. No organomegaly. EXTREMITIES: No pedal edema. Skin no rashes. NEUROLOGIC: Alert and oriented x3. No focal deficits. LABS: Troponin less than 0.012. CBC with differential count is normal. Basic metabolic panel is within normal limits. AST, ALT, total bilirubin, alkaline phosphatase normal. Lipase is normal. Ultrasound of the gallbladder showed no gallstones but fatty liver. IMPRESSION: 1. The patient presents with chest pain and epigastric pain for the last 2 days duration associated with some nausea, vomiting. Cardiac enzymes were negative. EKG was negative. Ultrasound of the gallbladder showed fatty liver but no evidence of gallstones. Symptoms most likely related to mild gastritis/gastroesophageal reflux. 2. History of diabetes mellitus, hypertension, and coronary artery disease. RECOMMENDATIONS: 1. Continue with Protonix 40 mg twice a day. 2. Advance diet as tolerated. 3. Antiemetics as needed. 4. No need for any endoscopy intervention at this present time. If he is able to advance diet without recurrent symptoms, he can be discharged home with outpatient follow up in 2 weeks. MMNADERL / EMMAN: [id number] /
[2018-07-06 16:47] LABS: Glucose,Whole Blood 158 mg/dL (75-99)
[2018-07-06 21:16] LABS: Glucose,Whole Blood 96 mg/dL (75-99)
[2018-07-06] MEDS: METOPROLOL SUCCINATE (ER) 25 MG TAB.ER.24H PO SCH (21:33)
[2018-07-06] MEDS: ATORVASTATIN 40 MG TAB PO SCH (21:33)
[2018-07-06] MEDS: traZODone HCL 50 MG TAB PO SCH (21:34)
[2018-07-06] MEDS: MONTELUKAST 10 MG TAB PO SCH (21:34)
[2018-07-06] MEDS: SODIUM CHLORIDE 0.9% 1,000 ML IV SCH (21:37)
[2018-07-06] MEDS: VENLAFAXINE HCL ER 150 MG CAP PO SCH (22:36)
[2018-07-07 06:38] LABS: Glucose,Whole Blood 101 mg/dL (75-99)
[2018-07-07] MEDS: INSULIN ASPART (NovoLOG) 100 UNIT/ML VIAL SQ SCH ×4 (08:43→20:37)
[2018-07-07] MEDS: GABAPENTIN 300 MG CAP PO SCH ×3 (08:45→20:56)
[2018-07-07] MEDS: PANTOPRAZOLE 40 MG/10 ML VIAL IVP SCH ×2 (08:45→20:56)
[2018-07-07] MEDS: ASPIRIN 81 MG PO SCH (08:45)
[2018-07-07] MEDS: DIVALPROEX 500 MG TABLET.DR PO SCH ×3 (08:45→20:56)
[2018-07-07] MEDS: KETOROLAC 30 MG/ML 1 ML VIAL IVP PRN ×2 (09:22→21:05)
[2018-07-07 09:35] LABS: ALT 79 U/L (21-72); AST 52 U/L (17-59); Albumin 3.8 g/dL (3.5-5.0); Alkaline Phosphatase 68 U/L (38-126); Anion Gap 8 mmol/L; Blood Urea Nitrogen 14 mg/dL (9-20); Calcium 9.3 mg/dL (8.4-10.2); Carbon Dioxide 26 mmol/L (22-30); Chloride 108 mmol/L (98-107); Glucose 97 mg/dL (74-99); Potassium 4.6 mmol/L (3.5-5.1); Sodium 142 mmol/L (137-145); Total Bilirubin 0.5 mg/dL (0.2-1.3); Total Protein 6.4 g/dL (6.3-8.2)
[2018-07-07 11:34] LABS: Glucose,Whole Blood 96 mg/dL (75-99)
--- NOTE | 2018-07-07 11:36 | PN ---
PROGRESS NOTE Patient is a 47-year-old pleasant white male admitted to the hospital with atypical chest pain as well as abdominal pain for the last few days duration. He had cardiac workup done that was all negative. Because of the persistent abdominal pain he was started on Protonix 40 mg daily, but remains symptomatic. He has epigastric pain mostly with solid food and some nausea but no emesis. He denies any heartburn. Reports no dysphagia or odynophagia. PHYSICAL EXAMINATION: He appears comfortable. No apparent distress. Vital signs are stable. Blood pressure 132/72, pulse is 73, temperature 98.7. HEENT examination unremarkable. Conjunctivae pink. Sclerae anicteric. Oral cavity no lesions. NECK: No jugular venous distention or lymph node enlargement. Chest was clear to auscultation. HEART: Regular rate and rhythm. Abdomen was soft. Bowel sounds are positive. No organomegaly. EXTREMITIES: No pedal edema. There was mild tenderness in the epigastric area. NEUROLOGIC: Alert and oriented x3. No focal deficits. LABS: From today, basic metabolic panel is within normal limits. IMPRESSION: 1. Persistent epigastric pain for the last few days duration. He was noted to have mild elevation of lipase but that has since normalized. Rule out upper GI pathology. 2. History of longstanding history of gastroesophageal reflux disease. RECOMMENDATIONS: 1. Continue with current medications. 2. Will proceed with upper endoscopy tomorrow. Discussed with him risks, benefits, and complications of the procedure and he is agreeable to it. Thank you for this consultation. MMNADERL / EMMAN: [id number] /
--- NOTE | 2018-07-07 12:02 | P.PN ---
Subjective Patient still having pain in the epigastric area is tolerating clear liquids good now Discussed case of GI Objective - Vital Signs Vital signs: Vital Signs Temp 98.1 F 07/07/18 08:00 Pulse 69 07/07/18 08:00 Resp 16 07/07/18 08:00 BP 133/69 07/07/18 08:00 Pulse Ox 97 07/07/18 08:00 Intake & Output 07/06/18 07/07/18 07/07/18 18:59 06:59 18:59 Other: Voiding Method Toilet Toilet Toilet # Voids 1 1 - Exam On exam, alert and oriented x3. HEENT: Conjunctivae normal. eyes normal. NECK: No JVD. No thyroid enlargement. No LNs CARDIOVASCULAR: S1, S2 muffled. No murmur RESPIRATION: Breath sounds diminished in the bases. No rhonchi or crackles. No bronchial breathing. ABDOMEN: Soft, tenderness in the epigastric area. No guarding. no masses palpable. No ascites, No hepatosplenomegaly.Bowel sounds heard. LEGS: No edema. no swelling NERVOUS SYSTEM: Cranial N 2-12 grossly normal. Moves all 4 limbs. No focal deficits. No sensory deficit. No signs of cerebellar dysfucntion. Skin: no ulcer no rash Joints: No active swelling. No inflammation. Lymphatic system. No LN neck axilla or groin. - Labs CBC & Chem 7: 07/06/18 08:06 07/07/18 05:35 Labs: Abnormal Lab Results - Last 24 Hours (Table) 07/06/18 07/07/18 07/07/18 Range/Units 16:46 05:35 06:37 Chloride 108 H (98-107) mmol/L POC Glucose (mg/dL) 158 H 101 H (75-99) mg/dL ALT 79 H (21-72) U/L Assessment and Plan Assessment: Assessment - Chest pain need to rule out the cause, cardiology on board - Acute pancreatitis - Hypertension - Diabetes - Bipolar disorder - Hyperlipidemia Plan - We'll continue the clear liquid diet - Nothing by mouth after midnight - Possible EGD tomorrow - We'll continue to monitor the patient Time with Patient: Greater than 30
[2018-07-07] MEDS: SODIUM CHLORIDE 0.9% 1,000 ML IV SCH (15:12)
[2018-07-07 16:38] LABS: Glucose,Whole Blood 121 mg/dL (75-99)
[2018-07-07 20:16] LABS: Glucose,Whole Blood 127 mg/dL (75-99)
[2018-07-07] MEDS: traZODone HCL 50 MG TAB PO SCH (20:56)
[2018-07-07] MEDS: VENLAFAXINE HCL ER 150 MG CAP PO SCH (20:56)
[2018-07-07] MEDS: ATORVASTATIN 40 MG TAB PO SCH (20:56)
[2018-07-07] MEDS: METOPROLOL SUCCINATE (ER) 25 MG TAB.ER.24H PO SCH (20:56)
[2018-07-07] MEDS: MONTELUKAST 10 MG TAB PO SCH (20:56)
[2018-07-08 06:50] LABS: Albumin 3.7 g/dL (3.5-5.0); Bilirubin,Unconjugated 0.4 mg/dL (0.0-1.1); Total Bilirubin 0.4 mg/dL (0.2-1.3); Total Protein 6.2 g/dL (6.3-8.2)
[2018-07-08 09:47] LABS: Glucose,Whole Blood 83 mg/dL (75-99)
[2018-07-08] MEDS: INSULIN ASPART (NovoLOG) 100 UNIT/ML VIAL SQ SCH ×3 (09:47→17:51)
[2018-07-08] MEDS: PANTOPRAZOLE 40 MG/10 ML VIAL IVP SCH (10:58)
[2018-07-08 11:44] LABS: Glucose,Whole Blood 90 mg/dL (75-99)
[2018-07-08 11:56] VITALS: RESP 18
[2018-07-08] MEDS ORDERED: LIDOCAINE 1% INJ 10MG/ML (20 ML MDV) ONE (12:06)
[2018-07-08] MEDS ORDERED: IV FLUID CONTINUATION 500 ML IV ONE (12:06)
[2018-07-08] MEDS ORDERED: PROPOFOL 10 MG/ML 20 ML VIAL IV ONE (12:06)
--- NOTE | 2018-07-08 12:31 | P.PCN ---
Date of Procedure: 07/08/18 Description of Procedure: BRIEF HISTORY: Patient is a 47-year-old male who presented with chest and epigastric pain. The patient had cardiac evaluation which was negative but continue to have epigastric abdominal pain associated with nausea and vomiting. No signs or symptoms of GI bleed. He denies any peptic ulcer disease or NSAID use. Patient reports a remote history of prior upper endoscopy. PROCEDURE PERFORMED: Esophagogastroduodenoscopy with biopsy. PREOPERATIVE DIAGNOSIS: Epigastric abdominal pain, nausea and vomiting. ESTIMATED BLOOD LOSS: Minimal. IV sedation per anesthesia. PROCEDURE: After informed consent was obtained, the patient was brought into the endoscopy unit. IV sedation was administered by Anesthesia under continuous monitoring. Initially the Olympus GIF-190 video endoscope was inserted into the mouth. Esophagus intubated without any difficulty. It was gradually advanced into the stomach and duodenum and carefully examined. The bulb and the second part of the duodenum appeared normal. The scope at this time was withdrawn to the stomach, adequately insufflated with air, and upon careful examination, mucosa of the antrum, body, cardia and the fundus appeared grossly normal. Findings of erythema and superficial erosions scattered in the antrum of the stomach were noted suggestive of moderate gastritis with biopsies taken. The scope was then withdrawn into the esophagus. The GE junction was located at 40 cm from the incisors. The esophagus appeared normal. There were no erosions or ulcerations seen and the patient tolerated the procedure well. IMPRESSION: 1. Moderate antral gastritis, biopsied. 2. No findings of GI bleed, ulcer or other pathology. RECOMMENDATIONS: The findings of this examination were discussed with the patient. Would continue Protonix 40 mg twice daily. Await pathology from biopsies. Diet as tolerated. Okay for discharge from gastroenterology standpoint.
[2018-07-08] MEDS: GABAPENTIN 300 MG CAP PO SCH ×2 (13:01→17:38)
[2018-07-08] MEDS: DIVALPROEX 500 MG TABLET.DR PO SCH ×2 (13:01→17:38)
[2018-07-08 16:02] VITALS: BP 110/67; PULSE 67; TEMP 98.2
--- NOTE | 2018-07-08 16:18 | P.DS ---
Providers Date of admission: 07/05/18 14:46 Attending physician: Uzma Bermudez Consults: 07/05/18 14:46 Consult Physician Routine Consulting Provider: Sp Casper Consult Reason/Comments: Mild pancreatitis, borderline CBD Do you want consulting provider notified?: Yes 07/05/18 18:25 Consult Physician Routine Consulting Provider: Bhanu Suh Consult Reason/Comments: chest pain Do you want consulting provider notified?: Yes Primary care physician: Nico Blount Hospital Course: Diagnoses: Epigastric pain and tenderness, new to gastritis. Improving Nausea vomiting. And improved History of coronary artery disease Hyperlipidemia Essential hypertension History of obstructive sleep apnea History of GI bleed Diabetes mellitus. Hospital course This is a pleasant 47 years old male with past medical history of coronary artery disease, diabetes mellitus, GI bleed, gastroesophageal reflux disease, hyperlipidemia, hypertension, osteoarthritis, obstructive sleep apnea on CPAP/ BiPAP. He presents because because of epigastric pain and tenderness which get worse with eating. patient has been evaluated by GI team. He underwent EGD today was showing moderate gastritis. Patient is been treated with Protonix twice a day and showed interval improvement in his symptoms. Patient tolerating diet well and he is currently having 3 bowel movement which is normal as per patient, no more nausea vomiting. And his abdominal pain downgraded from 6/10 down to 3/10. Patient also has been evaluated by head irrigator who already cleared him for discharge. Patient was cleared by warehouse receiving supervisor as well for discharge Patient himself felt back to his usual state and was removed to go home Problems and management plan was discussed with the patient and he verbalized understanding and acceptance Patient was found stable and can be discharged home however he needs follow-up as an outpatient. Patient agrees with the GI appointment and timing and states he will follow-up. Patient was instructed to follow-up the results of his biopsy during his EGD, risks including but not limited to cancer explained to him. He verbalized understanding and agreed. Patient states that he has an appointment with his head irrigator Dr. Menchaca in August. Patient was instructed to follow up with his head irrigator in 2 weeks, as well as with his PCP Dr. Diego in one week physical exam Gen.: Patient alert awake and oriented X 3, NOT IN DISTRESS CVS: s1-s2, RRR, no murmur CHEST:bilateral CTA, no wheezing or crepitation Abdomen: Soft, mild epigastric tenderness, no rebound tenderness no distention, positive bowel sounds Extremities: No leg edema or induration Time spent more than 35 minutes Patient Condition at Discharge: Stable Plan - Discharge Summary Discharge Rx Participant: No New Discharge Prescriptions: No Action metFORMIN HCL [Glucophage] 500 mg PO DAILY Montelukast Sodium [Singulair] 10 mg PO HS Albuterol Inhaler [Ventolin Hfa Inhaler] 1 - 2 puff INHALATION RT-Q6H PRN PRN Reason: Shortness Of Breath Metoprolol Succinate (ER) [Toprol XL] 25 mg PO HS Atorvastatin [Lipitor] 40 mg PO DAILY traZODone HCL 150 mg PO HS Venlafaxine HCl [Effexor XR] 150 mg PO HS Gabapentin [Neurontin] 300 mg PO TID Fenofibrate Nanocrystallized [Fenofibrate] 72.5 mg PO DAILY Divalproex Sodium 500 mg PO TID Beclomethasone Dipropionate [Qvar 80 mcg] 2 puff INHALATION RT-BID Aspirin 81 mg PO DAILY #30 chew Cephalexin [Keflex] 500 mg PO TID Discharge Medication List metFORMIN HCL [Glucophage] 500 mg PO DAILY 06/10/14 [History] Montelukast Sodium [Singulair] 10 mg PO HS 06/01/16 [History] Albuterol Inhaler [Ventolin Hfa Inhaler] 1 - 2 puff INHALATION RT-Q6H PRN [History] Atorvastatin [Lipitor] 40 mg PO DAILY 10/15/17 [History] Beclomethasone Dipropionate [Qvar 80 mcg] 2 puff INHALATION RT-BID 10/15/17 [ History] Divalproex Sodium 500 mg PO TID 10/15/17 [History] Fenofibrate Nanocrystallized [Fenofibrate] 72.5 mg PO DAILY 10/15/17 [History] Gabapentin [Neurontin] 300 mg PO TID 10/15/17 [History] Metoprolol Succinate (ER) [Toprol XL] 25 mg PO HS 10/15/17 [History] Venlafaxine HCl [Effexor XR] 150 mg PO HS 10/15/17 [History] traZODone HCL 150 mg PO HS 10/15/17 [History] Aspirin 81 mg PO DAILY #30 chew 01/08/18 [Rx] Cephalexin [Keflex] 500 mg PO TID 07/05/18 [History] Follow up Appointment(s)/Referral(s): Mine Walsh MD [Primary Care Provider] - 1-2 days
[2018-07-08 16:57] LABS: Glucose,Whole Blood 128 mg/dL (75-99)
[2018-07-08] MEDS: SODIUM CHLORIDE 0.9% 1,000 ML IV SCH (17:04)
[2018-07-08] MEDS: ASPIRIN 81 MG PO SCH (17:04)
== END 2018-07-08 18:42 | disposition home or self-care (01) ==
LOC: EC 11:21 → 3SCARD 14:46 → 1SOBS 16:00
PROVIDERS: ADMIT Internal Medicine; ATTEND Internal Medicine
DX: K29.00 Acute gastritis without bleeding (principal); K29.50 Unspecified chronic gastritis without bleeding; R07.89 Other chest pain; F41.9 Anxiety disorder, unspecified; F31.9 Bipolar disorder, unspecified; K85.90 Acute pancreatitis without necrosis or infection, unspecified; E11.9 Type 2 diabetes mellitus without complications; E78.5 Hyperlipidemia, unspecified; K21.9 Gastro-esophageal reflux disease without esophagitis; M19.90 Unspecified osteoarthritis, unspecified site; M50.20 Other cervical disc displacement, unspecified cervical region; I10 Essential (primary) hypertension; G47.30 Sleep apnea, unspecified; F17.210 Nicotine dependence, cigarettes, uncomplicated; I25.2 Old myocardial infarction; Z79.84 Long term (current) use of oral hypoglycemic drugs; Z79.51 Long term (current) use of inhaled steroids; Z79.899 Other long term (current) drug therapy; Z79.2 Long term (current) use of antibiotics; Z79.82 Long term (current) use of aspirin; Z88.6 Allergy status to analgesic agent; Z88.5 Allergy status to narcotic agent; Z91.018 Allergy to other foods; Z91.048 Other nonmedicinal substance allergy status; Z87.11 Personal history of peptic ulcer disease; Z95.5 Presence of coronary angioplasty implant and graft; Z82.49 Family history of ischemic heart disease and other diseases of the circulatory system; Z83.3 Family history of diabetes mellitus; Z99.89 Dependence on other enabling machines and devices; Z96.651 Presence of right artificial knee joint
CPT/HCPCS: 43239; 96375; 96376 ×4; 96361; 96374; 99285; 36415; 94760; 93005; 88305; 80053 ×3; 80076; 82550; 82553; 83690 ×3; 83735; 84484; 85025 ×2; 85610; 85730; 71046; 76705; G0378 ×4; J2001; J1885; J2704; C9113 ×4

== ENCOUNTER 2018-07-19 22:54 | Emergency (ER) | payer MEDICARE, OTHER ==
[2018-07-19 22:59] VITALS: TEMP 98.2
[2018-07-19] MEDS ORDERED: ONDANSETRON 4 MG/2 ML VIAL IVP STA (23:21)
[2018-07-19] MEDS ORDERED: SUCRALFATE 1 GM TAB PO STA (23:22)
--- NOTE | 2018-07-19 23:27 | ED ---
Abdominal Pain HPI - General Chief Complaint: Abdominal Pain Stated Complaint: upper abd pain Time Seen by Provider: 07/19/18 23:07 Source: patient Mode of arrival: ambulatory Limitations: no limitations - History of Present Illness Initial Comments: Patient is a 47-year-old male presenting for epigastric discomfort. The patient states that last 2-3 weeks, his been having epigastric discomfort that feels a bit achy/sharp sensation. The pain is been constant and radiates to left shoulder. He was admitted here over the last week or 2 and had a scope but is unsure what the results were. He was supposed to follow-up with GI within the next week and was given a prescription for Protonix but he states that he did not have $1.25 co-pay. He also states that he had some nausea but no vomiting or diarrhea. He denies any chest pain or shortness of breath. - Related Data Home Medications Medication Instructions Recorded Confirmed metFORMIN HCL [Glucophage] 500 mg PO DAILY 06/10/14 07/19/18 Montelukast Sodium [Singulair] 10 mg PO HS 06/01/16 07/19/18 Albuterol Inhaler [Ventolin Hfa 1 - 2 puff INHALATION RT-Q6H PRN 10/15/17 Inhaler] Atorvastatin [Lipitor] 40 mg PO DAILY 10/15/17 07/19/18 Beclomethasone Dipropionate [Qvar 2 puff INHALATION RT-BID 10/15/17 07/19/18 80 mcg] Divalproex Sodium 500 mg PO TID 10/15/17 07/19/18 Fenofibrate Nanocrystallized 72.5 mg PO DAILY 10/15/17 07/19/18 [Fenofibrate] Gabapentin [Neurontin] 300 mg PO TID 10/15/17 07/19/18 Metoprolol Succinate (ER) [Toprol 25 mg PO HS 10/15/17 07/19/18 XL] Venlafaxine HCl [Effexor XR] 150 mg PO HS 10/15/17 07/19/18 traZODone HCL 150 mg PO HS 10/15/17 07/19/18 Previous Rx's Medication Instructions Recorded Aspirin 81 mg PO DAILY #30 chew 01/08/18 Acetaminophen Tab [Tylenol] 650 mg PO Q4HR PRN tab 07/08/18 Pantoprazole Sodium [Protonix] 40 mg PO BID #60 tablet. 07/08/18 Sucralfate [Carafate] 1 gm PO ACHS #400 ml 07/20/18 Allergies Allergy/AdvReac Type Severity Reaction Status Date / Time naproxen [From Naprosyn] Allergy Unknown Rash/Hives Verified 07/19/18 23:11 adhesive tape Allergy Rash/Hives Verified 07/19/18 23:11 carrot Allergy Dyspnea Verified 07/19/18 23:11 chocolate flavor Allergy Dyspnea Verified 07/19/18 23:11 grass pollen-perennial rye, Allergy Dyspnea Verified 07/19/18 23:11 standar ibuprofen Allergy Itching Verified 07/19/18 23:11 mold Allergy Unknown Verified 07/19/18 23:11 Review of Systems ROS Statement: Those systems with pertinent positive or pertinent negative responses have been documented in the HPI. Constitutional: Negative for chills, fatigue and fever. HENT: Negative for congestion. Respiratory: Negative for chest tightness, shortness of breath and wheezing. Negative for cough Cardiovascular: Negative for chest pain and palpitations. Gastrointestinal: Positive for abdominal pain and nausea. Negative for abdominal distention, diarrhea, and vomiting. Genitourinary: Negative for dysuria. Musculoskeletal: Negative for back pain, neck pain and neck stiffness. Skin: Negative for color change. Neurological: Negative for dizziness, speech difficulty, weakness and light- headedness. Psychiatric/Behavioral: Negative for agitation and confusion. Negative for anxiety ROS Other: All systems not noted in ROS Statement are negative. Past Medical History Past Medical History: Chest Pain / Angina, Diabetes Mellitus, GERD/Reflux, GI Bleed, Hyperlipidemia, Hypertension, Myocardial Infarction ([place]), Osteoarthritis (OA), Sleep Apnea/CPAP/BIPAP Additional Past Medical History / Comment(s): chronic back and neck pain(has lumbar and cervial nuero stimulators), herniated discs in the neck and the back. mood disturbance.occ ringing in ears, " in 1994 a told me he heard a soft heart murmur', uses cpap machine Last Myocardial Infarction Date:: 2004 History of Any Multi-Drug Resistant Organisms: None Reported Past Surgical History: Heart Catheterization, Hernia Repair, Joint Replacement Additional Past Surgical History / Comment(s): rt knee arthroscopy x3, lt knee arthroscopy last date 2012,total rt knee replacement and a revision sx cardiac stent x1 2004, stent placed for kidney stone 07/04/2016. Kidney stent has been removed. COLONOSCOPY. neuro stimulator implant cervial and recent another one in lumbar area pt stated he still has yue in place from procedure. Past Anesthesia/Blood Transfusion Reactions: No Reported Reaction Date of Last Stent Placement:: 2004 Past Psychological History: Anxiety, Bipolar, Depression Smoking Status: Current every day smoker - Past Family History Father Family Medical History: Congestive Heart Failure (CHF), Deep Vein Thrombosis ( DVT), Myocardial Infarction ([place]), Pulmonary Embolus Additional Family Medical History / Comment(s): [place] at age 38. "hole in colon" Mother Family Medical History: Cancer, COPD, Diabetes Mellitus, Hyperlipidemia Additional Family Medical History / Comment(s): breast and lung cancer Sister(s) Family Medical History: Diabetes Mellitus Additional Family Medical History / Comment(s): bi-polar, anxiety. hysterectomy Brother(s) History Unknown: Yes General Exam - General Exam Comments Initial Comments: Constitutional: Pt appears well-developed and well-nourished. No distress. Head: Normocephalic and atraumatic. Eyes: EOM are normal. Neck: Normal range of motion. Neck supple. Cardiovascular: Normal rate, regular rhythm, S1 normal, S2 normal and normal heart sounds. Exam reveals no gallop and no friction rub. No murmur heard. Pulmonary/Chest: Effort normal and breath sounds normal. No tachypnea and no bradypnea. No respiratory distress. No wheezes or rales noted. Abdominal: Soft. Bowel sounds are normal. Pt exhibits no shifting dullness, no distension, no pulsatile liver, no fluid wave, no abdominal bruit and no ascites. There is no rigidity, no rebound, no guarding, no tenderness at McBurney's point and negative Castellano's sign. There is mild tenderness of the epigastric region Musculoskeletal: Normal range of motion. Neurological: Pt is alert and oriented to person, place, and time. No cranial nerve deficit. Skin: Skin is warm and dry. No rash noted. Pt is not diaphoretic. No erythema. No pallor. Psychiatric: Pt has a normal mood and affect. Pt behavior is normal. Thought content normal. Limitations: no limitations Course Vital Signs 07/19/18 22:56 Temperature 98.2 F Pulse Rate 93 Respiratory 20 Rate Blood Pressure 131/78 O2 Sat by Pulse 99 Oximetry Medical Decision Making - Medical Decision Making Laboratory studies showed that there is no significant leukocytosis, transaminitis or pancreatitis. From a cardiac standpoint, EKG was unremarkable and troponin was negative. Serial troponins were not performed as the patient stated that the pain is been constant for greater than 6 hours. Additionally, extensive cardiac workup had been completed on the last hospitalization. After chart review, EGD showed that there was gastritis and patient was given Carafate and Pepcid here in the emergency department and stated that the pain was moderately improved. Patient was advised that he needed to fill the prescription of the Protonix and would also be given a prescription for Carafate.Explained all labs and diagnostic test results and that we will discharge the patient home and patient is to follow up with PCP in 1-2 days and return to the ED if symptoms worsen. Pt is agreeable to plan. Patient was reexamined prior to d/c and found to be resting comfortably in bed in no acute distress. - Lab Data Result diagrams: 07/19/18 23:15 07/19/18 23:15 Lab Results 07/19/18 07/19/18 07/19/18 Range/Units 23:15 23:15 23:15 WBC 4.7 (3.8-10.6) k/uL RBC 4.13 L (4.30-5.90) m/uL Hgb 12.8 L (13.0-17.5) gm/dL Hct 37.3 L (39.0-53.0) % MCV 90.3 (80.0-100.0) fL MCH 31.1 (25.0-35.0) pg MCHC 34.4 (31.0-37.0) g/dL RDW 13.9 (11.5-15.5) % Plt Count 156 (150-450) k/uL Neutrophils % 57 % Lymphocytes % 31 % Monocytes % 6 % Eosinophils % 4 % Basophils % 1 % Neutrophils # 2.7 (1.3-7.7) k/uL Lymphocytes # 1.4 (1.0-4.8) k/uL Monocytes # 0.3 (0-1.0) k/uL Eosinophils # 0.2 (0-0.7) k/uL Basophils # 0.0 (0-0.2) k/uL PT 10.4 (9.0-12.0) sec INR 1.0 (<1.2) APTT 22.9 (22.0-30.0) sec Sodium 142 (137-145) mmol/L Potassium 4.2 (3.5-5.1) mmol/L Chloride 107 (98-107) mmol/L Carbon Dioxide 28 (22-30) mmol/L Anion Gap 7 mmol/L BUN 13 (9-20) mg/dL Creatinine 0.78 (0.66-1.25) mg/dL Est GFR (CKD-EPI)AfAm >90 (>60 ml/min/1.73 sqM) Est GFR (CKD-EPI)NonAf >90 (>60 ml/min/1.73 sqM) Glucose 124 H (74-99) mg/dL Calcium 9.7 (8.4-10.2) mg/dL Total Bilirubin 0.3 (0.2-1.3) mg/dL AST 26 (17-59) U/L ALT 53 (21-72) U/L Alkaline Phosphatase 68 (38-126) U/L Troponin I (0.000-0.034) ng/mL Total Protein 6.6 (6.3-8.2) g/dL Albumin 4.0 (3.5-5.0) g/dL Lipase 131 (23-300) U/L 07/19/18 Range/Units 23:15 WBC (3.8-10.6) k/uL RBC (4.30-5.90) m/uL Hgb (13.0-17.5) gm/dL Hct (39.0-53.0) % MCV (80.0-100.0) fL MCH (25.0-35.0) pg MCHC (31.0-37.0) g/dL RDW (11.5-15.5) % Plt Count (150-450) k/uL Neutrophils % % Lymphocytes % % Monocytes % % Eosinophils % % Basophils % % Neutrophils # (1.3-7.7) k/uL Lymphocytes # (1.0-4.8) k/uL Monocytes # (0-1.0) k/uL Eosinophils # (0-0.7) k/uL Basophils # (0-0.2) k/uL PT (9.0-12.0) sec INR (<1.2) APTT (22.0-30.0) sec Sodium (137-145) mmol/L Potassium (3.5-5.1) mmol/L Chloride (98-107) mmol/L Carbon Dioxide (22-30) mmol/L Anion Gap mmol/L BUN (9-20) mg/dL Creatinine (0.66-1.25) mg/dL Est GFR (CKD-EPI)AfAm (>60 ml/min/1.73 sqM) Est GFR (CKD-EPI)NonAf (>60 ml/min/1.73 sqM) Glucose (74-99) mg/dL Calcium (8.4-10.2) mg/dL Total Bilirubin (0.2-1.3) mg/dL AST (17-59) U/L ALT (21-72) U/L Alkaline Phosphatase (38-126) U/L Troponin I <0.012 (0.000-0.034) ng/mL Total Protein (6.3-8.2) g/dL Albumin (3.5-5.0) g/dL Lipase (23-300) U/L 07/19/18 23:54 EKG shows normal sinus rhythm with rate of 80 bpm, TN interval 194, QRS 82, QTC 396. There are no significant ST depressions or elevations. Disposition Clinical Impression: Epigastric pain Disposition: HOME SELF-CARE Condition: Good Instructions (If sedation given, give patient instructions): Abdominal Pain (ED ), Gastritis (ED) Prescriptions: Sucralfate [Carafate] 1 gm PO ACHS #400 ml Is patient prescribed a controlled substance at d/c from ED?: No Referrals: Mine Walsh MD [Primary Care Provider] - 1-2 days Shaneka Hale MD [STAFF PHYSICIAN] - 1-2 days Time of Disposition: 00:31
[2018-07-19 23:38] LABS: Basophils % (A) 1 %; Eosinophils # (A) 0.2 k/uL (0-0.7); Eosinophils % (A) 4 %; HCT 37.3 % (39.0-53.0); HGB 12.8 gm/dL (13.0-17.5); Lymphocytes # (A) 1.4 k/uL (1.0-4.8); Lymphocytes % (A) 31 %; MCH 31.1 pg (25.0-35.0); MCHC 34.4 g/dL (31.0-37.0); MCV 90.3 fL (80.0-100.0); Mean Platelet Volume 7.6; Monocytes # (A) 0.3 k/uL (0-1.0); Monocytes % (A) 6 %; Neutrophils # (A) 2.7 k/uL (1.3-7.7); Neutrophils % (A) 57 %; Platelet Count 156 k/uL (150-450); RBC 4.13 m/uL (4.30-5.90); RDW 13.9 % (11.5-15.5); WBC 4.7 k/uL (3.8-10.6)
[2018-07-19 23:46] LABS: Partial Thromboplastin Time 22.9 sec (22.0-30.0); Prothrombin Time 10.4 sec (9.0-12.0)
[2018-07-19 23:49] LABS: ALT 53 U/L (21-72); AST 26 U/L (17-59); Alkaline Phosphatase 68 U/L (38-126); Anion Gap 7 mmol/L; Blood Urea Nitrogen 13 mg/dL (9-20); Calcium 9.7 mg/dL (8.4-10.2); Carbon Dioxide 28 mmol/L (22-30); Chloride 107 mmol/L (98-107); Glucose 124 mg/dL (74-99); Lipase 131 U/L (23-300); Potassium 4.2 mmol/L (3.5-5.1); Sodium 142 mmol/L (137-145); Total Bilirubin 0.3 mg/dL (0.2-1.3); Total Protein 6.6 g/dL (6.3-8.2)
[2018-07-20 00:50] VITALS: BP 114/74; PULSE 78; RESP 16
== END 2018-07-20 00:45 | disposition home or self-care (01) ==
LOC: EC 22:54
DX: R10.13 Epigastric pain (principal); R11.0 Nausea; K29.70 Gastritis, unspecified, without bleeding; E78.5 Hyperlipidemia, unspecified; I10 Essential (primary) hypertension; M19.90 Unspecified osteoarthritis, unspecified site; I25.2 Old myocardial infarction; E11.9 Type 2 diabetes mellitus without complications; F31.9 Bipolar disorder, unspecified; F41.9 Anxiety disorder, unspecified; F17.200 Nicotine dependence, unspecified, uncomplicated; Z88.6 Allergy status to analgesic agent; Z91.02 Food additives allergy status; Z91.018 Allergy to other foods; Z91.09 Other allergy status, other than to drugs and biological substances; Z79.51 Long term (current) use of inhaled steroids; Z79.84 Long term (current) use of oral hypoglycemic drugs; Z79.899 Other long term (current) drug therapy; Z99.89 Dependence on other enabling machines and devices; Z95.818 Presence of other cardiac implants and grafts; Z96.651 Presence of right artificial knee joint; Z95.5 Presence of coronary angioplasty implant and graft
CPT/HCPCS: 36415; 93005; 80053; 83690; 84484; 85025; 85610; 85730; 99284; 96374; J2405

== ENCOUNTER 2018-08-16 18:23 | Emergency (ER) | payer MEDICARE, OTHER ==
[2018-08-16] MEDS ORDERED: FAMOTIDINE 20 MG/2 ML VIAL IV STA (18:55)
[2018-08-16] MEDS ORDERED: MAG HYDROX/AL HYDROX/SIMETH 30 ML, HYOSCYAMINE ELIXIR 10 ML, CIMETIDINE HCL 300 MG PO STA ×3 (18:55)
--- NOTE | 2018-08-16 18:57 | ED ---
General Adult HPI - General Chief complaint: Chest Pain Stated complaint: CHest Pain Time Seen by Provider: 08/16/18 18:33 Source: patient, RN notes reviewed, old records reviewed Mode of arrival: wheelchair Limitations: no limitations - History of Present Illness Initial comments: 47-year-old male history hypertension diabetes presenting for evaluation of left-sided chest pain. Patient describes the pain as a burning sensation. Patient has been completely constant for the past 4 days. He does report some radiating symptoms into his left arm. Denies vomiting. Denies diaphoresis. Denies any exertional component to this chest pain. He does have history of pancreatitis in the past. Denies any abdominal pain or vomiting diarrhea. No fever or chills. Symptoms have been completely constant for 4 days. - Related Data Home Medications Medication Instructions Recorded Confirmed metFORMIN HCL [Glucophage] 500 mg PO DAILY 06/10/14 08/16/18 Montelukast Sodium [Singulair] 10 mg PO HS 06/01/16 08/16/18 Albuterol Inhaler [Ventolin Hfa 1 - 2 puff INHALATION RT-Q6H PRN 10/15/17 08/16/18 Inhaler] Atorvastatin [Lipitor] 80 mg PO DAILY 10/15/17 08/16/18 Beclomethasone Dipropionate [Qvar 2 puff INHALATION RT-BID 10/15/17 08/16/18 80 mcg] Divalproex Sodium 500 mg PO TID 10/15/17 08/16/18 Fenofibrate Nanocrystallized 145 mg PO DAILY 10/15/17 08/16/18 [Fenofibrate] Gabapentin [Neurontin] 300 mg PO TID 10/15/17 08/16/18 Metoprolol Succinate (ER) [Toprol 25 mg PO HS 10/15/17 08/16/18 XL] Venlafaxine HCl [Effexor XR] 150 mg PO HS 10/15/17 08/16/18 traZODone HCL 150 mg PO HS 10/15/17 08/16/18 Previous Rx's Medication Instructions Recorded Aspirin 81 mg PO DAILY #30 chew 01/08/18 Acetaminophen Tab [Tylenol] 650 mg PO Q4HR PRN tab 07/08/18 Pantoprazole Sodium [Protonix] 40 mg PO BID #60 tablet. 07/08/18 Allergies Allergy/AdvReac Type Severity Reaction Status Date / Time naproxen [From Naprosyn] Allergy Unknown Rash/Hives Verified 08/16/18 19:09 adhesive tape Allergy Rash/Hives Verified 08/16/18 19:09 carrot Allergy Dyspnea Verified 08/16/18 19:09 chocolate flavor Allergy Dyspnea Verified 08/16/18 19:09 grass pollen-perennial rye, Allergy Dyspnea Verified 08/16/18 19:09 standar ibuprofen Allergy Itching Verified 08/16/18 19:09 mold Allergy Unknown Verified 08/16/18 19:09 Review of Systems ROS Statement: Those systems with pertinent positive or pertinent negative responses have been documented in the HPI. ROS Other: All systems not noted in ROS Statement are negative. Past Medical History Past Medical History: Chest Pain / Angina, Diabetes Mellitus, GERD/Reflux, GI Bleed, Hyperlipidemia, Hypertension, Myocardial Infarction ([place]), Osteoarthritis ([place]), Sleep Apnea/CPAP/BIPAP Additional Past Medical History / Comment(s): chronic back and neck pain(has lumbar and cervial nuero stimulators), herniated discs in the neck and the back. mood disturbance.occ ringing in ears, " in [address] told me he heard a soft heart murmur', uses cpap machine Last Myocardial Infarction Date:: 2004 History of Any Multi-Drug Resistant Organisms: None Reported Past Surgical History: Heart Catheterization, Hernia Repair, Joint Replacement Additional Past Surgical History / Comment(s): rt knee arthroscopy x3, lt knee arthroscopy last date 2012,total rt knee replacement and a revision sx cardiac stent x1 2004, stent placed for kidney stone 07/04/2016. Kidney stent has been removed. COLONOSCOPY. neuro stimulator implant cervial and recent another one in lumbar area pt stated he still has yue in place from procedure. Past Anesthesia/Blood Transfusion Reactions: No Reported Reaction Date of Last Stent Placement:: 2004 Past Psychological History: Anxiety, Bipolar, Depression Smoking Status: Current every day smoker - Past Family History Father Family Medical History: Congestive Heart Failure (CHF), Deep Vein Thrombosis (DVT), Myocardial Infarction ([place]), Pulmonary Embolus Additional Family Medical History / Comment(s): [place] at age 38. "hole in colon" Mother Family Medical History: Cancer, COPD, Diabetes Mellitus, Hyperlipidemia Additional Family Medical History / Comment(s): breast and lung cancer Sister(s) Family Medical History: Diabetes Mellitus Additional Family Medical History / Comment(s): bi-polar, anxiety. hysterectomy Brother(s) History Unknown: Yes General Exam Limitations: no limitations General appearance: alert, in no apparent distress Head exam: Present: atraumatic, normocephalic Eye exam: Present: normal appearance, PERRL ENT exam: Present: mucous membranes dry Neck exam: Present: normal inspection. Absent: tenderness, meningismus Respiratory exam: Present: normal lung sounds bilaterally. Absent: respiratory distress, wheezes Cardiovascular Exam: Present: regular rate, normal rhythm GI/Abdominal exam: Present: soft, tenderness (Minimal epigastric tenderness to palpation). Absent: distended, guarding Extremities exam: Present: normal inspection, normal capillary refill. Absent: pedal edema, calf tenderness Neurological exam: Present: alert, oriented X3, CN II-XII intact. Absent: motor sensory deficit Psychiatric exam: Present: normal affect, normal mood Skin exam: Present: warm, dry, intact. Absent: cyanosis, diaphoretic Course Vital Signs 08/16/18 18:24 Temperature 97.8 F Pulse Rate 96 Respiratory 16 Rate Blood Pressure 129/73 O2 Sat by Pulse 97 Oximetry EKG Findings - EKG Comments: EKG Findings:: EKG: Normal sinus rhythm, no ST segment elevation or depression rate of 80, DE interval 180, QRS duration 78, QTC 412. Medical Decision Making - Medical Decision Making 47-year-old male presenting for evaluation of left-sided chest pain. Described as a burning sensation. Patient has multiple risk factors for CAD including hypertension, diabetes, and current smoker. Patient did have heart catheterization in December 2017 with no intervention. Given the 4 days of constant chest pain I am reassured by single negative troponin. Patient has normal CBC, normal CMP, lipase normal. Patient's symptoms are improved with Pepcid and GI cocktail. He will return with worsening or changing symptoms. Will follow up with both his primary care physician and his way inspector. - Lab Data Result diagrams: 08/16/18 18:50 08/16/18 18:50 Lab Results 08/16/18 08/16/18 08/16/18 Range/Units 18:50 18:50 18:50 WBC 3.7 L (3.8-10.6) k/uL RBC 4.64 (4.30-5.90) m/uL Hgb 13.8 (13.0-17.5) gm/dL Hct 41.2 (39.0-53.0) % MCV 88.7 (80.0-100.0) fL MCH 29.7 (25.0-35.0) pg MCHC 33.5 (31.0-37.0) g/dL RDW 13.4 (11.5-15.5) % Plt Count 139 L (150-450) k/uL Neutrophils % 56 % Lymphocytes % 31 % Monocytes % 7 % Eosinophils % 4 % Basophils % 1 % Neutrophils # 2.1 (1.3-7.7) k/uL Lymphocytes # 1.1 (1.0-4.8) k/uL Monocytes # 0.3 (0-1.0) k/uL Eosinophils # 0.1 (0-0.7) k/uL Basophils # 0.0 (0-0.2) k/uL PT (9.0-12.0) sec INR (<1.2) APTT (22.0-30.0) sec Sodium 140 (137-145) mmol/L Potassium 3.8 (3.5-5.1) mmol/L Chloride 106 (98-107) mmol/L Carbon Dioxide 26 (22-30) mmol/L Anion Gap 8 mmol/L BUN 12 (9-20) mg/dL Creatinine 0.78 (0.66-1.25) mg/dL Est GFR (CKD-EPI)AfAm >90 (>60 ml/min/1.73 sqM) Est GFR (CKD-EPI)NonAf >90 (>60 ml/min/1.73 sqM) Glucose 141 H (74-99) mg/dL Calcium 9.4 (8.4-10.2) mg/dL Magnesium 2.0 (1.6-2.3) mg/dL Total Bilirubin 0.4 (0.2-1.3) mg/dL AST 29 (17-59) U/L ALT 52 (21-72) U/L Alkaline Phosphatase 66 (38-126) U/L Troponin I (0.000-0.034) ng/mL NT-Pro-B Natriuret Pep 37 pg/mL Total Protein 6.6 (6.3-8.2) g/dL Albumin 4.2 (3.5-5.0) g/dL Lipase 79 (23-300) U/L 08/16/18 08/16/18 Range/Units 18:50 18:50 WBC (3.8-10.6) k/uL RBC (4.30-5.90) m/uL Hgb (13.0-17.5) gm/dL Hct (39.0-53.0) % MCV (80.0-100.0) fL MCH (25.0-35.0) pg MCHC (31.0-37.0) g/dL RDW (11.5-15.5) % Plt Count (150-450) k/uL Neutrophils % % Lymphocytes % % Monocytes % % Eosinophils % % Basophils % % Neutrophils # (1.3-7.7) k/uL Lymphocytes # (1.0-4.8) k/uL Monocytes # (0-1.0) k/uL Eosinophils # (0-0.7) k/uL Basophils # (0-0.2) k/uL PT 10.7 (9.0-12.0) sec INR 1.0 (<1.2) APTT 23.6 (22.0-30.0) sec Sodium (137-145) mmol/L Potassium (3.5-5.1) mmol/L Chloride (98-107) mmol/L Carbon Dioxide (22-30) mmol/L Anion Gap mmol/L BUN (9-20) mg/dL Creatinine (0.66-1.25) mg/dL Est GFR (CKD-EPI)AfAm (>60 ml/min/1.73 sqM) Est GFR (CKD-EPI)NonAf (>60 ml/min/1.73 sqM) Glucose (74-99) mg/dL Calcium (8.4-10.2) mg/dL Magnesium (1.6-2.3) mg/dL Total Bilirubin (0.2-1.3) mg/dL AST (17-59) U/L ALT (21-72) U/L Alkaline Phosphatase (38-126) U/L Troponin I <0.012 (0.000-0.034) ng/mL NT-Pro-B Natriuret Pep pg/mL Total Protein (6.3-8.2) g/dL Albumin (3.5-5.0) g/dL Lipase (23-300) U/L Disposition Clinical Impression: Chest pain, Epigastric pain Disposition: HOME SELF-CARE Condition: Good Instructions (If sedation given, give patient instructions): Chest Pain (ED) Is patient prescribed a controlled substance at d/c from ED?: No Referrals: Mine Walsh MD [Primary Care Provider] - 1-2 days Time of Disposition: 19:58
[2018-08-16 19:05] LABS: Basophils % (A) 1 %; Eosinophils # (A) 0.1 k/uL (0-0.7); Eosinophils % (A) 4 %; HCT 41.2 % (39.0-53.0); HGB 13.8 gm/dL (13.0-17.5); Lymphocytes # (A) 1.1 k/uL (1.0-4.8); Lymphocytes % (A) 31 %; MCH 29.7 pg (25.0-35.0); MCHC 33.5 g/dL (31.0-37.0); MCV 88.7 fL (80.0-100.0); Mean Platelet Volume 8.8; Monocytes # (A) 0.3 k/uL (0-1.0); Monocytes % (A) 7 %; Neutrophils # (A) 2.1 k/uL (1.3-7.7); Neutrophils % (A) 56 %; Platelet Count 139 k/uL (150-450); RBC 4.64 m/uL (4.30-5.90); RDW 13.4 % (11.5-15.5); WBC 3.7 k/uL (3.8-10.6)
[2018-08-16 19:19] LABS: Partial Thromboplastin Time 23.6 sec (22.0-30.0); Prothrombin Time 10.7 sec (9.0-12.0)
[2018-08-16 19:22] LABS: ALT 52 U/L (21-72); AST 29 U/L (17-59); Albumin 4.2 g/dL (3.5-5.0); Alkaline Phosphatase 66 U/L (38-126); Anion Gap 8 mmol/L; Blood Urea Nitrogen 12 mg/dL (9-20); Calcium 9.4 mg/dL (8.4-10.2); Carbon Dioxide 26 mmol/L (22-30); Chloride 106 mmol/L (98-107); Glucose 141 mg/dL (74-99); Lipase 79 U/L (23-300); Potassium 3.8 mmol/L (3.5-5.1); Sodium 140 mmol/L (137-145); Total Bilirubin 0.4 mg/dL (0.2-1.3); Total Protein 6.6 g/dL (6.3-8.2)
--- NOTE | 2018-08-16 19:34 | XR ---
EXAMINATION: XR chest 2V DATE AND TIME: 08/16/2018 7:15 PM CLINICAL INDICATION: PH[facility]; Chest Pain TECHNIQUE: Departmental protocol COMPARISON: 07/05/2018 FINDINGS: The lungs are clear. The pleural spaces are negative. The cardiac silhouette is not enlarged. The remainder of the mediastinal silhouette is unremarkable. Thoracic spine stimulator noted, with unremarkable radiographic appearance. The skeletal structures and soft tissues are negative for acute findings. IMPRESSION: NO ACUTE PROCESS.
[2018-08-16 20:28] VITALS: BP 111/65; PULSE 63; RESP 18; TEMP 98
== END 2018-08-16 20:28 | disposition home or self-care (01) ==
LOC: EC 18:23
DX: R07.9 Chest pain, unspecified (principal); R10.13 Epigastric pain; E11.9 Type 2 diabetes mellitus without complications; E78.5 Hyperlipidemia, unspecified; I10 Essential (primary) hypertension; I25.2 Old myocardial infarction; M19.90 Unspecified osteoarthritis, unspecified site; G47.30 Sleep apnea, unspecified; Z99.89 Dependence on other enabling machines and devices; F31.9 Bipolar disorder, unspecified; F41.9 Anxiety disorder, unspecified; F17.200 Nicotine dependence, unspecified, uncomplicated; Z79.51 Long term (current) use of inhaled steroids; Z79.84 Long term (current) use of oral hypoglycemic drugs; Z79.899 Other long term (current) drug therapy; Z91.018 Allergy to other foods; Z88.6 Allergy status to analgesic agent; Z91.048 Other nonmedicinal substance allergy status; Z95.5 Presence of coronary angioplasty implant and graft; Z96.651 Presence of right artificial knee joint
CPT/HCPCS: 36415; 71046; 80053; 83690; 83735; 83880; 84484; 85025; 85610; 85730; 93005; 96374; 99285

== ENCOUNTER 2018-09-14 23:49 | Emergency (ER) | payer MEDICARE, OTHER ==
[2018-09-15] MEDS ORDERED: HYDROcodone/APAP 5-325MG 1 EACH TAB PO STA (01:21)
[2018-09-15 01:40] LABS: Appearance,Urine Clear (Clear); Bilirubin,Urine Negative (Negative); Blood,Urine Negative (Negative); Color,Urine Yellow; Glucose,Urine (UA) 1+ (Negative); Ketones,Urine Negative (Negative); Leukocyte Esterase,Urine Negative (Negative); Nitrite,Urine Negative (Negative); Protein,Urine Trace (Negative); Specific Gravity,Urine 1.026 (1.001-1.035)
--- NOTE | 2018-09-15 02:45 | US ---
EXAM: US Scrotum CLINICAL HISTORY: ITS.REASON US Reason: Pain TECHNIQUE: Real-time ultrasound of the scrotum with color Doppler and image documentation. COMPARISON: No relevant prior studies available. FINDINGS: Right testicle: The right testicle measures 4.0 x 1.9 x 3.1 cm. Testicular flow visualized. Echogenic focus adjacent to or within the right testicle measuring 5 mm with posterior acoustic shadowing, possible calcification. Left testicle: The left testicle measures 3.5 x 1.7 x 3.1 cm. Testicular flow visualized. Epididymides: Tiny left epididymal cyst. Scrotum: Small left greater than right hydroceles with suggestion of echoes on the left. IMPRESSION: 1. Bilateral testicular flow visualized. 2. Echogenic focus adjacent to or within the right testicle, possible calcification. 3. Small left greater than right hydroceles with suggestion of echoes on the left.
--- NOTE | 2018-09-15 02:50 | ED ---
Male Urogenital HPI - General Source: patient Mode of arrival: ambulatory Limitations: no limitations <Bryanna Reyes - Last Filed: 09/15/18 03:15> <Leslie Hairston - Last Filed: 09/16/18 03:12> - General Chief complaint: Urogenital Stated complaint: Groin Pain Time Seen by Provider: 09/15/18 00:52 - History of Present Illness Initial comments: 47-year-old male patient presents to the emergency department today for evaluation of left testicular and groin pain. Patient states the pain started several hours ago. States this started as a mild pain and she gradually worsened. The patient states the pain worsens when he touches the testicle. Patient denies any drainage from the penis. Denies any hematuria, dysuria, urinary frequency, urinary urgency. Denies any lower abdominal pain. Denies any fever or chills with this. Denies any constipation or diarrhea. Patient has had left inguinal hernia repair approximately 12 years ago. Denies any pain to that site. Patient denies any recent rash, shortness breath, chest pain, nausea, vomiting, diarrhea, constipation, back pain, numbness, tingling, dizziness, weakness, headache, visual changes, or any other complaints. (Bryanna Reyes) - Related Data Home Medications Medication Instructions Recorded Confirmed metFORMIN HCL [Glucophage] 500 mg PO DAILY 06/10/14 09/15/18 Montelukast Sodium [Singulair] 10 mg PO HS 06/01/16 09/15/18 Albuterol Inhaler [Ventolin Hfa 1 - 2 puff INHALATION RT-Q6H PRN 10/15/17 09/15/18 Inhaler] Atorvastatin [Lipitor] 80 mg PO DAILY 10/15/17 09/15/18 Beclomethasone Dipropionate [Qvar 2 puff INHALATION RT-BID 10/15/17 09/15/18 80 mcg] Divalproex Sodium 500 mg PO TID 10/15/17 09/15/18 Fenofibrate Nanocrystallized 145 mg PO DAILY 10/15/17 09/15/18 [Fenofibrate] Gabapentin [Neurontin] 300 mg PO TID 10/15/17 09/15/18 Metoprolol Succinate (ER) [Toprol 25 mg PO HS 10/15/17 09/15/18 XL] Venlafaxine HCl [Effexor XR] 150 mg PO HS 10/15/17 09/15/18 traZODone HCL 150 mg PO HS 10/15/17 09/15/18 Previous Rx's Medication Instructions Recorded Aspirin 81 mg PO DAILY #30 chew 01/08/18 Acetaminophen Tab [Tylenol] 650 mg PO Q4HR PRN tab 07/08/18 Pantoprazole Sodium [Protonix] 40 mg PO BID #60 tablet. 07/08/18 Allergies Allergy/AdvReac Type Severity Reaction Status Date / Time naproxen [From Naprosyn] Allergy Unknown Rash/Hives Verified 08/16/18 19:09 adhesive tape Allergy Rash/Hives Verified 08/16/18 19:09 carrot Allergy Dyspnea Verified 08/16/18 19:09 chocolate flavor Allergy Dyspnea Verified 08/16/18 19:09 grass pollen-perennial rye, Allergy Dyspnea Verified 08/16/18 19:09 standar ibuprofen Allergy Itching Verified 08/16/18 19:09 mold Allergy Unknown Verified 08/16/18 19:09 Review of Systems ROS Other: All systems not noted in ROS Statement are negative. <Bryanna Reyes - Last Filed: 09/15/18 03:15> ROS Other: All systems not noted in ROS Statement are negative. <Leslie Hairston - Last Filed: 09/16/18 03:12> ROS Statement: Those systems with pertinent positive or pertinent negative responses have been documented in the HPI. Past Medical History Past Medical History: Chest Pain / Angina, Diabetes Mellitus, GERD/Reflux, GI Bleed, Hyperlipidemia, Hypertension, Myocardial Infarction ([place]), Osteoarthritis (OA), Sleep Apnea/CPAP/BIPAP Additional Past Medical History / Comment(s): chronic back and neck pain(has lumbar and cervial nuero stimulators), herniated discs in the neck and the back. mood disturbance.occ ringing in ears, " in [address] me he heard a soft heart murmur', uses cpap machine Last Myocardial Infarction Date:: 2004 History of Any Multi-Drug Resistant Organisms: None Reported Past Surgical History: Heart Catheterization, Hernia Repair, Joint Replacement Additional Past Surgical History / Comment(s): rt knee arthroscopy x3, lt knee arthroscopy last date 2012,total rt knee replacement and a revision sx cardiac stent x1 2004, stent placed for kidney stone 07/04/2016. Kidney stent has been removed. COLONOSCOPY. neuro stimulator implant cervial and recent another one in lumbar area pt stated he still has yue in place from procedure. Past Anesthesia/Blood Transfusion Reactions: No Reported Reaction Date of Last Stent Placement:: 2004 Past Psychological History: Anxiety, Bipolar, Depression Smoking Status: Current every day smoker - Past Family History Father Family Medical History: Congestive Heart Failure (CHF), Deep Vein Thrombosis (DVT), Myocardial Infarction ([place]), Pulmonary Embolus Additional Family Medical History / Comment(s): [place] at age 38. "hole in colon" Mother Family Medical History: Cancer, COPD, Diabetes Mellitus, Hyperlipidemia Additional Family Medical History / Comment(s): breast and lung cancer Sister(s) Family Medical History: Diabetes Mellitus Additional Family Medical History / Comment(s): bi-polar, anxiety. hysterectomy Brother(s) History Unknown: Yes <Bryanna Reyes - Last Filed: 09/15/18 03:15> General Exam Limitations: no limitations General appearance: alert, in no apparent distress, other (Physical well- developed, well-nourished adult male patient in no acute distress. Vital signs upon presentation are temperature 98.7F, pulse 100, respirations 20, blood pressure 121/75, pulse ox 96% on room air.) Eye exam: Present: normal appearance, PERRL, EOMI. Absent: scleral icterus, conjunctival injection, periorbital swelling Respiratory exam: Present: normal lung sounds bilaterally. Absent: respiratory distress, wheezes, rales, rhonchi, stridor Cardiovascular Exam: Present: regular rate, normal rhythm, normal heart sounds. Absent: systolic murmur, diastolic murmur, rubs, gallop, clicks GI/Abdominal exam: Present: soft, normal bowel sounds. Absent: distended, tenderness, guarding, rebound, rigid, mass, hernia exam: Present: normal inspection, testicular tenderness (Left testicular tenderness), other (Left groin tenderness. No inguinal lymphadenopathy.). Absent: urethral discharge, scrotal swelling Neurological exam: Present: alert, oriented X3, CN II-XII intact Psychiatric exam: Present: normal affect, normal mood Skin exam: Present: warm, dry, intact, normal color. Absent: rash <Bryanna Reyes - Last Filed: 09/15/18 03:15> Course Vital Signs 09/14/18 09/15/18 23:57 05:14 Temperature 98.7 F 98.0 F Pulse Rate 100 80 Respiratory 20 18 Rate Blood Pressure 121/75 114/67 O2 Sat by Pulse 96 98 Oximetry Medical Decision Making - Radiology Data Radiology results: report reviewed <Bryanna Reyes - Last Filed: 09/15/18 03:15> <Leslie Hairston - Last Filed: 09/16/18 03:12> - Medical Decision Making 47-year-old male patient presented to the emergency department today for evaluation of left testicle pain and left groin pain. Physical examination did reveal tenderness over the left groin. No inguinal hernia was appreciated. No tenderness in the inguinal region. Left testicular tenderness this was noted. No penile drainage. Urinalysis showed no evidence for infection. Ultrasound was obtained and showed bilateral hydroceles worse on the left. No evidence for testicular torsion. No other abnormalities were appreciated. Patient be discharged home at this time to follow-up with urologist. He is instructed take Tylenol for pain control. Return parameters were discussed in detail. He verbalizes understanding and agrees with this plan. (Bryanna Reyes) I was available for consultation in the emergency department. The history and physical exam were done by the midlevel provider. I was consulted for this patient's care. I reviewed the case with the midlevel provider and based on their presentation of the patient, I agree with the assessment, medical decision making and plan of care as documented. (Leslie Hairston) - Lab Data Lab Results 09/15/18 Range/Units 01:30 Urine Color Yellow Urine Appearance Clear (Clear) Urine pH 6.0 (5.0-8.0) Ur Specific [place] 1.026 (1.001-1.035) Urine Protein Trace H (Negative) Urine Glucose (UA) 1+ H (Negative) Urine Ketones Negative (Negative) Urine Blood Negative (Negative) Urine Nitrite Negative (Negative) Urine Bilirubin Negative (Negative) Urine Urobilinogen 4.0 (<2.0) mg/dL Ur Leukocyte Esterase Negative (Negative) - Radiology Data Ultrasound of the scrotum was reviewed and showed a bilateral testicular flow. Echogenic focus adjacent to or within the right testicle possible calcification. Small left greater than right hydroceles a suggestion of echoes on the left. (Bryanna Reyes) Disposition Is patient prescribed a controlled substance at d/c from ED?: No Time of Disposition: 02:50 <Bryanna Reyes - Last Filed: 09/15/18 03:15> <Leslie Hairston - Last Filed: 09/16/18 03:12> Clinical Impression: Left testicular pain, Hydrocele Disposition: HOME SELF-CARE Condition: Good Instructions (If sedation given, give patient instructions): Hydrocele (ED), Testicle Pain (ED) Additional Instructions: Follow-up with urologist for recheck as soon as possible. Return to the emergency department immediately for any new, worsening, or concerning symptoms. Referrals: Mine Walsh MD [Primary Care Provider] - 1-2 days Heladio Mcgrath MD [STAFF PHYSICIAN] - 1-2 days
[2018-09-15 05:15] VITALS: BP 114/67; PULSE 80; RESP 18; TEMP 98
== END 2018-09-15 03:21 | disposition home or self-care (01) ==
LOC: EC 23:49
DX: N43.3 Hydrocele, unspecified (principal); E11.9 Type 2 diabetes mellitus without complications; E78.5 Hyperlipidemia, unspecified; I10 Essential (primary) hypertension; I25.2 Old myocardial infarction; M19.90 Unspecified osteoarthritis, unspecified site; G47.30 Sleep apnea, unspecified; F31.9 Bipolar disorder, unspecified; F41.9 Anxiety disorder, unspecified; F17.200 Nicotine dependence, unspecified, uncomplicated; Z88.6 Allergy status to analgesic agent; Z91.02 Food additives allergy status; Z91.018 Allergy to other foods; Z91.048 Other nonmedicinal substance allergy status; Z79.51 Long term (current) use of inhaled steroids; Z79.84 Long term (current) use of oral hypoglycemic drugs; Z79.899 Other long term (current) drug therapy; Z87.19 Personal history of other diseases of the digestive system; Z95.818 Presence of other cardiac implants and grafts; Z96.651 Presence of right artificial knee joint; Z96.89 Presence of other specified functional implants; Z99.89 Dependence on other enabling machines and devices; Z83.79 Family history of other diseases of the digestive system
CPT/HCPCS: 76870; 81003; 93975; 99284

== ENCOUNTER 2018-09-16 22:10 | Emergency (ER) | payer MEDICARE, OTHER ==
[2018-09-16] MEDS ORDERED: HYDROmorphone 2 MG/ML 1 ML SYRINGE IVP STA (23:12)
[2018-09-16] MEDS ORDERED: ONDANSETRON 4 MG/2 ML VIAL IVP STA (23:12)
[2018-09-16] MEDS ORDERED: SODIUM CHLORIDE 0.9% 1,000 ML IV ONE (23:13)
[2018-09-16 23:36] LABS: ALT 50 U/L (21-72); AST 33 U/L (17-59); Albumin 4.4 g/dL (3.5-5.0); Alkaline Phosphatase 58 U/L (38-126); Amylase 40 U/L (30-110); Anion Gap 9 mmol/L; Blood Urea Nitrogen 15 mg/dL (9-20); Calcium 9.8 mg/dL (8.4-10.2); Carbon Dioxide 23 mmol/L (22-30); Chloride 108 mmol/L (98-107); Glucose 98 mg/dL (74-99); Lipase 76 U/L (23-300); Sodium 140 mmol/L (137-145); Total Bilirubin 0.6 mg/dL (0.2-1.3)
[2018-09-16 23:37] LABS: Potassium 4.4 mmol/L (3.5-5.1)
[2018-09-16 23:38] LABS: Amorphous Sediment,Urine Moderate /hpf; Appearance,Urine Turbid (Clear); Bilirubin,Urine Negative (Negative); Blood,Urine Negative (Negative); Color,Urine Yellow; Glucose,Urine (UA) Trace (Negative); Ketones,Urine Negative (Negative); Leukocyte Esterase,Urine Negative (Negative); Nitrite,Urine Negative (Negative); PH, Urine 7.5 (5.0-8.0); Protein,Urine Negative (Negative); Specific Gravity,Urine 1.018 (1.001-1.035)
[2018-09-16 23:51] VITALS: BP 113/74
[2018-09-16 23:59] LABS: Basophils % (A) 1 %; Eosinophils # (A) 0.1 k/uL (0-0.7); Eosinophils % (A) 3 %; HCT 38.2 % (39.0-53.0); HGB 13.3 gm/dL (13.0-17.5); Lymphocytes # (A) 1.2 k/uL (1.0-4.8); Lymphocytes % (A) 32 %; MCH 30.2 pg (25.0-35.0); MCHC 34.7 g/dL (31.0-37.0); Mean Platelet Volume 8.3; Monocytes # (A) 0.3 k/uL (0-1.0); Monocytes % (A) 7 %; Neutrophils # (A) 2.1 k/uL (1.3-7.7); Neutrophils % (A) 55 %; Platelet Count 146 k/uL (150-450); RDW 13.6 % (11.5-15.5); WBC 3.8 k/uL (3.8-10.6)
--- NOTE | 2018-09-17 00:16 | CT ---
EXAM: CT Abdomen and Pelvis With Intravenous Contrast CLINICAL HISTORY: ITS.REASON CT Reason: abdominal pain TECHNIQUE: Axial computed tomography images of the abdomen and pelvis with intravenous contrast. This CT exam was performed using one or more of the following dose reduction techniques: automated exposure control, adjustment of the mA and/or kV according to patient size, and/or use of iterative reconstruction technique. COMPARISON: No relevant prior studies available. FINDINGS: Lung bases: Unremarkable. No mass. No consolidation. ABDOMEN: Liver: Unremarkable. No mass. Gallbladder and bile ducts: No abnormal ductal dilation or stones. Pancreas: Unremarkable. No mass. No ductal dilation. Spleen: Unremarkable. No splenomegaly. Adrenals: Unremarkable. No mass. Kidneys and ureters: Nonobstructing left renal stone. Stomach and bowel: No obstruction. No mucosal thickening. PELVIS: Appendix: No findings to suggest acute appendicitis. Bladder: Unremarkable. No mass. Reproductive: Unremarkable as visualized. ABDOMEN and PELVIS: Intraperitoneal space: Unremarkable. No free air. No significant fluid collection. Bones/joints: No acute fracture. No dislocation. Soft tissues: Unremarkable. Vasculature: No abdominal aortic aneurysm. Lymph nodes: Unremarkable. No enlarged lymph nodes. IMPRESSION: Nonobstructing left renal stone.
--- NOTE | 2018-09-17 00:30 | ED ---
Abdominal Pain HPI - General Chief Complaint: Abdominal Pain Stated Complaint: Fever, Abd Pain Time Seen by Provider: 09/16/18 22:38 Source: patient Mode of arrival: ambulatory - History of Present Illness Initial Comments: 47-year-old male patient presents to the emergency department today for evaluation of left groin pain radiating up into the bilateral lower abdomen. Patient states that pain started several days ago. States he was seen and evaluated here couple of days ago diagnosed with hydrocele and discharged home to follow-up with urologist. Patient states that he has contacted the urologist but has not given an appointment yet. Patient states that today the pain began to worsen and radiating into the left lower abdomen and right lower abdomen. Patient states his pain is worse on the left lower abdomen. He denies any radiation of the pain through to his back. States he did have a temperature 99.5 prior to coming in. Denies any hematuria, dysuria, urinary frequency, urinary urgency. Denies any penile discharge. Patient denies any recent rash, fever, chills, shortness breath, chest pain, nausea, vomiting, diarrhea, constipation, back pain, numbness, tingling, dizziness, weakness, headache, visual changes, or any other complaints. - Related Data Home Medications Medication Instructions Recorded Confirmed metFORMIN HCL [Glucophage] 500 mg PO DAILY 06/10/14 09/15/18 Montelukast Sodium [Singulair] 10 mg PO HS 06/01/16 09/15/18 Albuterol Inhaler [Ventolin Hfa 1 - 2 puff INHALATION RT-Q6H PRN 10/15/17 Inhaler] Atorvastatin [Lipitor] 80 mg PO DAILY 10/15/17 09/15/18 Beclomethasone Dipropionate [Qvar 2 puff INHALATION RT-BID 10/15/17 09/15/18 80 mcg] Divalproex Sodium 500 mg PO TID 10/15/17 09/15/18 Fenofibrate Nanocrystallized 145 mg PO DAILY 10/15/17 09/15/18 [Fenofibrate] Gabapentin [Neurontin] 300 mg PO TID 10/15/17 09/15/18 Metoprolol Succinate (ER) [Toprol 25 mg PO HS 10/15/17 09/15/18 XL] Venlafaxine HCl [Effexor XR] 150 mg PO HS 10/15/17 09/15/18 traZODone HCL 150 mg PO HS 10/15/17 09/15/18 Previous Rx's Medication Instructions Recorded Aspirin 81 mg PO DAILY #30 chew 01/08/18 Acetaminophen Tab [Tylenol] 650 mg PO Q4HR PRN tab 07/08/18 Pantoprazole Sodium [Protonix] 40 mg PO BID #60 tablet. 07/08/18 Allergies Allergy/AdvReac Type Severity Reaction Status Date / Time naproxen [From Naprosyn] Allergy Unknown Rash/Hives Verified 09/16/18 22:22 adhesive tape Allergy Rash/Hives Verified 09/16/18 22:22 carrot Allergy Dyspnea Verified 09/16/18 22:22 chocolate flavor Allergy Dyspnea Verified 09/16/18 22:22 grass pollen-perennial rye, Allergy Dyspnea Verified 09/16/18 22:22 standar ibuprofen Allergy Itching Verified 09/16/18 22:22 mold Allergy Unknown Verified 09/16/18 22:22 Review of Systems ROS Statement: Those systems with pertinent positive or pertinent negative responses have been documented in the HPI. ROS Other: All systems not noted in ROS Statement are negative. Past Medical History Past Medical History: Chest Pain / Angina, Diabetes Mellitus, GERD/Reflux, GI Bleed, Hyperlipidemia, Hypertension, Myocardial Infarction ([place]), Osteoarthritis (OA), Sleep Apnea/CPAP/BIPAP Additional Past Medical History / Comment(s): chronic back and neck pain(has lumbar and cervial nuero stimulators), herniated discs in the neck and the back. mood disturbance.occ ringing in ears, " in [address] me he heard a soft heart murmur', uses cpap machine Last Myocardial Infarction Date:: 2004 History of Any Multi-Drug Resistant Organisms: None Reported Past Surgical History: Heart Catheterization, Hernia Repair, Joint Replacement Additional Past Surgical History / Comment(s): rt knee arthroscopy x3, lt knee a rthroscopy last date 2012,total rt knee replacement and a revision sx cardiac stent x1 2004, stent placed for kidney stone 07/04/2016. Kidney stent has been removed. COLONOSCOPY. neuro stimulator implant cervial and recent another one in lumbar area pt stated he still has yue in place from procedure. Past Anesthesia/Blood Transfusion Reactions: No Reported Reaction Date of Last Stent Placement:: 2004 Past Psychological History: Anxiety, Bipolar, Depression Smoking Status: Current every day smoker - Past Family History Father Family Medical History: Congestive Heart Failure (CHF), Deep Vein Thrombosis (DVT), Myocardial Infarction ([place]), Pulmonary Embolus Additional Family Medical History / Comment(s): [place] at age 38. "hole in colon" Mother Family Medical History: Cancer, COPD, Diabetes Mellitus, Hyperlipidemia Additional Family Medical History / Comment(s): breast and lung cancer Sister(s) Family Medical History: Diabetes Mellitus Additional Family Medical History / Comment(s): bi-polar, anxiety. hysterectomy Brother(s) History Unknown: Yes General Exam General appearance: alert, in no apparent distress, other (Physical well- developed, well-nourished adult male patient in no acute distress. Vital signs upon presentation are temperature 98.4F, pulse 96, respirations 18, blood pressure 122/72, pulse ox 95% on room air for) Eye exam: Present: normal appearance, PERRL, EOMI. Absent: scleral icterus, conjunctival injection, periorbital swelling ENT exam: Present: normal exam, normal oropharynx, mucous membranes moist Respiratory exam: Present: normal lung sounds bilaterally. Absent: respiratory distress, wheezes, rales, rhonchi, stridor Cardiovascular Exam: Present: regular rate, normal rhythm, normal heart sounds. Absent: systolic murmur, diastolic murmur, rubs, gallop, clicks GI/Abdominal exam: Present: soft, tenderness (Left-sided abdominal tenderness), normal bowel sounds. Absent: distended, guarding, rebound, rigid Neurological exam: Present: alert, oriented X3, CN II-XII intact Psychiatric exam: Present: normal affect, normal mood Skin exam: Present: warm, dry, intact, normal color. Absent: rash Course Vital Signs 09/16/18 09/16/18 09/17/18 22:17 23:50 00:38 Temperature 98.4 F 98.4 F 98 F Pulse Rate 96 69 74 Respiratory 18 16 18 Rate Blood Pressure 122/72 113/74 113/74 O2 Sat by Pulse 95 96 98 Oximetry Medical Decision Making - Medical Decision Making 47-year-old male patient presented to emergency department today for evaluation of left groin pain radiating into the left lower and right lower abdomen. Physical examination did reveal left lower abdomen tenderness. She is unremarkable. Patient is afebrile, vital signs stable. CT of the abdomen and pelvis was obtained and showed no acute abnormalities. I did discuss findings and results with the patient. Does report improvement of symptoms of pain medication. He is instructed to follow-up with his primary care physician for recheck in 1-2 days. He will be having an appointment with the urologist coming up for evaluation of hydrocele. He also has an appointment with a resident service coordinator next week, he is urged to discuss colonoscopy for further evaluation of symptoms. Return parameters discussed in detail. He verbalizes understanding and agrees with this plan. - Lab Data Result diagrams: 09/16/18 23:47 09/16/18 22:56 Lab Results 09/16/18 09/16/18 09/16/18 Range/Units 22:56 22:56 23:14 WBC (3.8-10.6) k/uL RBC (4.30-5.90) m/uL Hgb (13.0-17.5) gm/dL Hct (39.0-53.0) % MCV (80.0-100.0) fL MCH (25.0-35.0) pg MCHC (31.0-37.0) g/dL RDW (11.5-15.5) % Plt Count (150-450) k/uL Neutrophils % % Lymphocytes % % Monocytes % % Eosinophils % % Basophils % % Neutrophils # (1.3-7.7) k/uL Lymphocytes # (1.0-4.8) k/uL Monocytes # (0-1.0) k/uL Eosinophils # (0-0.7) k/uL Basophils # (0-0.2) k/uL Sodium 140 (137-145) mmol/L Potassium 4.4 (3.5-5.1) mmol/L Chloride 108 H (98-107) mmol/L Carbon Dioxide 23 (22-30) mmol/L Anion Gap 9 mmol/L BUN 15 (9-20) mg/dL Creatinine 0.78 (0.66-1.25) mg/dL Est GFR (CKD-EPI)AfAm >90 (>60 ml/min/1.73 sqM) Est GFR (CKD-EPI)NonAf >90 (>60 ml/min/1.73 sqM) Glucose 98 (74-99) mg/dL Plasma Lactic Acid Cory 1.1 (0.7-2.0) mmol/L Calcium 9.8 (8.4-10.2) mg/dL Total Bilirubin 0.6 (0.2-1.3) mg/dL AST 33 (17-59) U/L ALT 50 (21-72) U/L Alkaline Phosphatase 58 (38-126) U/L Total Protein 7.0 (6.3-8.2) g/dL Albumin 4.4 (3.5-5.0) g/dL Amylase 40 (30-110) U/L Lipase 76 (23-300) U/L Urine Color Yellow Urine Appearance Turbid (Clear) Urine pH 7.5 (5.0-8.0) Ur Specific [place] 1.018 (1.001-1.035) Urine Protein Negative (Negative) Urine Glucose (UA) Trace H (Negative) Urine Ketones Negative (Negative) Urine Blood Negative (Negative) Urine Nitrite Negative (Negative) Urine Bilirubin Negative (Negative) Urine Urobilinogen 2.0 (<2.0) mg/dL Ur Leukocyte Esterase Negative (Negative) Amorphous Sediment Moderate H (None) /hpf 09/16/18 Range/Units 23:47 WBC 3.8 (3.8-10.6) k/uL RBC 4.40 (4.30-5.90) m/uL Hgb 13.3 (13.0-17.5) gm/dL Hct 38.2 L (39.0-53.0) % MCV 87.0 (80.0-100.0) fL MCH 30.2 (25.0-35.0) pg MCHC 34.7 (31.0-37.0) g/dL RDW 13.6 (11.5-15.5) % Plt Count 146 L (150-450) k/uL Neutrophils % 55 % Lymphocytes % 32 % Monocytes % 7 % Eosinophils % 3 % Basophils % 1 % Neutrophils # 2.1 (1.3-7.7) k/uL Lymphocytes # 1.2 (1.0-4.8) k/uL Monocytes # 0.3 (0-1.0) k/uL Eosinophils # 0.1 (0-0.7) k/uL Basophils # 0.0 (0-0.2) k/uL Sodium (137-145) mmol/L Potassium (3.5-5.1) mmol/L Chloride (98-107) mmol/L Carbon Dioxide (22-30) mmol/L Anion Gap mmol/L BUN (9-20) mg/dL Creatinine (0.66-1.25) mg/dL Est GFR (CKD-EPI)AfAm (>60 ml/min/1.73 sqM) Est GFR (CKD-EPI)NonAf (>60 ml/min/1.73 sqM) Glucose (74-99) mg/dL Plasma Lactic Acid Cory (0.7-2.0) mmol/L Calcium (8.4-10.2) mg/dL Total Bilirubin (0.2-1.3) mg/dL AST (17-59) U/L ALT (21-72) U/L Alkaline Phosphatase (38-126) U/L Total Protein (6.3-8.2) g/dL Albumin (3.5-5.0) g/dL Amylase (30-110) U/L Lipase (23-300) U/L Urine Color Urine Appearance (Clear) Urine pH (5.0-8.0) Ur Specific [place] (1.001-1.035) Urine Protein (Negative) Urine Glucose (UA) (Negative) Urine Ketones (Negative) Urine Blood (Negative) Urine Nitrite (Negative) Urine Bilirubin (Negative) Urine Urobilinogen (<2.0) mg/dL Ur Leukocyte Esterase (Negative) Amorphous Sediment (None) /hpf - Radiology Data Radiology results: report reviewed, image reviewed CT abdomen and pelvis was obtained with contrast. Report was reviewed in its entirety. Impression by Dr. Casillas shows nonobstructing left renal stone. Disposition Clinical Impression: Abdominal pain Disposition: HOME SELF-CARE Condition: Good Instructions (If sedation given, give patient instructions): Abdominal Pain (ED) Additional Instructions: Follow-up with your primary care physician for recheck as soon as possible. Return to the emergency department immediately for any new, worsening, or concerning symptoms. Is patient prescribed a controlled substance at d/c from ED?: No Referrals: Mine Walsh MD [Primary Care Provider] - 1-2 days Time of Disposition: 00:30
[2018-09-17 00:39] VITALS: PULSE 74; RESP 18; TEMP 98
== END 2018-09-17 00:39 | disposition home or self-care (01) ==
LOC: EC 22:10
DX: R10.32 Left lower quadrant pain (principal); E11.9 Type 2 diabetes mellitus without complications; E78.5 Hyperlipidemia, unspecified; I10 Essential (primary) hypertension; I25.2 Old myocardial infarction; M19.90 Unspecified osteoarthritis, unspecified site; G47.30 Sleep apnea, unspecified; Z99.89 Dependence on other enabling machines and devices; F31.9 Bipolar disorder, unspecified; F41.9 Anxiety disorder, unspecified; F17.200 Nicotine dependence, unspecified, uncomplicated; Z79.84 Long term (current) use of oral hypoglycemic drugs; Z79.51 Long term (current) use of inhaled steroids; Z79.899 Other long term (current) drug therapy; Z88.6 Allergy status to analgesic agent; Z91.018 Allergy to other foods; Z91.048 Other nonmedicinal substance allergy status; Z96.651 Presence of right artificial knee joint; Z95.818 Presence of other cardiac implants and grafts
CPT/HCPCS: 36415; 80053; 82150; 83605; 83690; 85025; 81001; 74177; 99284; 96374; 96375; 96361; J1170; J2405; Q9967

== ENCOUNTER 2018-11-15 21:39 | Emergency (ER) | payer MEDICARE, OTHER ==
[2018-11-15 21:52] VITALS: TEMP 98.9
[2018-11-15] MEDS ORDERED: MORPHINE SULFATE 4 MG/ML SYRINGE IV STA (22:22)
[2018-11-15] MEDS ORDERED: ONDANSETRON 4 MG/2 ML VIAL IVP STA (22:22)
[2018-11-15] MEDS ORDERED: SODIUM CHLORIDE 0.9% 500 ML 500 ML IV STA (22:22)
[2018-11-15] MEDS ORDERED: ASPIRIN 81 MG PO STA (22:22)
--- NOTE | 2018-11-15 22:35 | ED ---
General Adult HPI - General Chief complaint: Chest Pain Stated complaint: Chest pain Time Seen by Provider: 11/15/18 22:12 Source: patient Mode of arrival: ambulatory Limitations: no limitations - History of Present Illness Initial comments: 47-year-old male patient presents to the emergency department today for evaluation of left-sided chest pain. Patient states this started one to 2 hours ago. States his been constant since its onset. Describes it as a sharp pain with numbness in the left side of his chest. States he has been having some shortness of breath with this. He denies any nausea, vomiting, sweats, dizziness, or coughing. Denies any exacerbating or relieving factors. Patient states he does have history of [place] in 2004 but does not have any stents. States he has been diagnosed with chronic pancreatitis and has been having some mild abdominal pain as well. Denies any fever or chills. Denies any numbness or tingling to the extremities. Patient denies any recent rash, diarrhea, constipation, back pain, numbness, tingling, hematuria, dysuria, urinary urgency, urinary frequency, headache, visual changes, or any other complaints. - Related Data Home Medications Medication Instructions Recorded Confirmed metFORMIN HCL [Glucophage] 500 mg PO DAILY 06/10/14 09/15/18 Montelukast Sodium [Singulair] 10 mg PO HS 06/01/16 09/15/18 Albuterol Inhaler [Ventolin Hfa 1 - 2 puff INHALATION RT-Q6H PRN 10/15/17 09/15/18 Inhaler] Atorvastatin [Lipitor] 80 mg PO DAILY 10/15/17 09/15/18 Beclomethasone Dipropionate [Qvar 2 puff INHALATION RT-BID 10/15/17 09/15/18 80 mcg] Divalproex Sodium 500 mg PO TID 10/15/17 09/15/18 Fenofibrate Nanocrystallized 145 mg PO DAILY 10/15/17 09/15/18 [Fenofibrate] Gabapentin [Neurontin] 300 mg PO TID 10/15/17 09/15/18 Metoprolol Succinate (ER) [Toprol 25 mg PO HS 10/15/17 09/15/18 XL] Venlafaxine HCl [Effexor XR] 150 mg PO HS 10/15/17 09/15/18 traZODone HCL 150 mg PO HS 10/15/17 09/15/18 Previous Rx's Medication Instructions Recorded Aspirin 81 mg PO DAILY #30 chew 01/08/18 Acetaminophen Tab [Tylenol] 650 mg PO Q4HR PRN tab 07/08/18 Pantoprazole Sodium [Protonix] 40 mg PO BID #60 tablet. 07/08/18 Allergies Allergy/AdvReac Type Severity Reaction Status Date / Time naproxen [From Naprosyn] Allergy Unknown Rash/Hives Verified 11/15/18 21:52 adhesive tape Allergy Rash/Hives Verified 11/15/18 21:52 carrot Allergy Dyspnea Verified 11/15/18 21:52 chocolate flavor Allergy Dyspnea Verified 11/15/18 21:52 grass pollen-perennial rye, Allergy Dyspnea Verified 11/15/18 21:52 standar ibuprofen Allergy Itching Verified 11/15/18 21:52 mold Allergy Unknown Verified 11/15/18 21:52 Review of Systems ROS Statement: Those systems with pertinent positive or pertinent negative responses have been documented in the HPI. ROS Other: All systems not noted in ROS Statement are negative. Past Medical History Past Medical History: Chest Pain / Angina, Diabetes Mellitus, GERD/Reflux, GI Bleed, Hyperlipidemia, Hypertension, Myocardial Infarction ([place]), Osteoarthritis (OA), Sleep Apnea/CPAP/BIPAP Additional Past Medical History / Comment(s): chronic back and neck pain(has lumbar and cervial nuero stimulators), herniated discs in the neck and the back. mood disturbance.occ ringing in ears, " in [address] me he heard a soft heart murmur', uses cpap machine Last Myocardial Infarction Date:: 2004 History of Any Multi-Drug Resistant Organisms: None Reported Past Surgical History: Heart Catheterization, Hernia Repair, Joint Replacement Additional Past Surgical History / Comment(s): rt knee arthroscopy x3, lt knee arthroscopy last date 2012,total rt knee replacement and a revision sx cardiac stent x1 2004, stent placed for kidney stone 07/04/2016. Kidney stent has been removed. COLONOSCOPY. neuro stimulator implant cervial and recent another one in lumbar area pt stated he still has yue in place from procedure. Past Anesthesia/Blood Transfusion Reactions: No Reported Reaction Date of Last Stent Placement:: 2004 Past Psychological History: Anxiety, Bipolar, Depression Smoking Status: Current every day smoker Past Alcohol Use History: None Reported Past Drug Use History: None Reported - Past Family History Father Family Medical History: Congestive Heart Failure (CHF), Deep Vein Thrombosis (DVT), Myocardial Infarction ([place]), Pulmonary Embolus Additional Family Medical History / Comment(s): [place] at age 38. "hole in colon" Mother Family Medical History: Cancer, COPD, Diabetes Mellitus, Hyperlipidemia Additional Family Medical History / Comment(s): breast and lung cancer Sister(s) Family Medical History: Diabetes Mellitus Additional Family Medical History / Comment(s): bi-polar, anxiety. hysterectomy Brother(s) History Unknown: Yes General Exam Limitations: no limitations General appearance: alert, in no apparent distress, other (Physical well- developed, well-nourished adult male patient in no acute distress. Vital signs upon presentation are temperature 98.9F, pulse 95, respirations 20, blood pressure 135/84, pulse ox 97% on room air.) Eye exam: Present: normal appearance, PERRL, EOMI. Absent: scleral icterus, conjunctival injection, periorbital swelling ENT exam: Present: normal exam, normal oropharynx, mucous membranes moist Respiratory exam: Present: normal lung sounds bilaterally. Absent: respiratory distress, wheezes, rales, rhonchi, stridor Cardiovascular Exam: Present: regular rate, normal rhythm, normal heart sounds. Absent: systolic murmur, diastolic murmur, rubs, gallop, clicks GI/Abdominal exam: Present: soft, tenderness (Mild midepigastric tenderness), normal bowel sounds. Absent: distended, guarding, rebound, rigid Neurological exam: Present: alert, oriented X3, CN II-XII intact Psychiatric exam: Present: normal affect, normal mood Skin exam: Present: warm, dry, intact, normal color. Absent: rash Course Vital Signs 11/15/18 11/15/18 11/16/18 21:50 22:02 01:01 Temperature 98.9 F Pulse Rate 95 72 Pulse Rate [ 80 Custom Seamstress ] Respiratory 20 16 Rate Blood Pressure 135/84 129/76 O2 Sat by Pulse 97 95 Oximetry EKG Findings - EKG Comments: EKG Findings:: EKG obtained at 2159 shows normal sinus rhythm with a ventricular rate of 86, [place] interval 172, QRS duration 72, QT 350, QTC 418. No evidence of ST elevation or depression. Medical Decision Making - Medical Decision Making 47-year-old male patient presents to the emergency department today for evaluation of left-sided chest pain. Patient states started 2 hours prior to arrival. Describes as sharp in nature. Physical examination is unremarkable. Lungs are clear to auscultation with good air movement. Pain is not reprodu cible palpation. Labs reviewed and are unremarkable. Troponin negative. Chest x-ray was obtained and shows no acute cardio pulmonary process. Patient did have a cardiac catheterization in December 2017 which was clear for any coronary artery disease. I did discuss findings and results with the patient. He'll be discharged home at this time to follow-up with his aerodynamic consultant for further evaluation. Return parameters were discussed in detail. He verbalizes understanding and agrees with this plan. - Lab Data Result diagrams: 11/15/18 22:01 11/15/18 22:01 Lab Results 11/15/18 11/15/18 11/15/18 Range/Units 22:01 22:01 22:01 WBC 3.3 L (3.8-10.6) k/uL RBC 4.18 L (4.30-5.90) m/uL Hgb 14.0 (13.0-17.5) gm/dL Hct 36.2 L (39.0-53.0) % MCV 86.8 (80.0-100.0) fL MCH 33.4 (25.0-35.0) pg MCHC 38.5 H (31.0-37.0) g/dL RDW 15.8 H (11.5-15.5) % Plt Count (150-450) k/uL Neutrophils % 37 % Lymphocytes % 47 % Monocytes % 12 % Eosinophils % 2 % Basophils % 1 % Neutrophils # 1.2 L (1.3-7.7) k/uL Lymphocytes # 1.5 (1.0-4.8) k/uL Monocytes # 0.4 (0-1.0) k/uL Eosinophils # 0.1 (0-0.7) k/uL Basophils # 0.0 (0-0.2) k/uL Manual Slide Review Performed PT 9.6 (9.0-12.0) sec INR 0.9 (<1.2) APTT 23.4 (22.0-30.0) sec Sodium 137 (137-145) mmol/L Potassium 4.1 (3.5-5.1) mmol/L Chloride 102 (98-107) mmol/L Carbon Dioxide 24 (22-30) mmol/L Anion Gap 11 mmol/L BUN 11 (9-20) mg/dL Creatinine 0.68 (0.66-1.25) mg/dL Est GFR (CKD-EPI)AfAm >90 (>60 ml/min/1.73 sqM) Est GFR (CKD-EPI)NonAf >90 (>60 ml/min/1.73 sqM) Glucose 183 H (74-99) mg/dL Calcium 9.4 (8.4-10.2) mg/dL Magnesium 2.1 (1.6-2.3) mg/dL Total Bilirubin 0.4 (0.2-1.3) mg/dL AST 39 (17-59) U/L ALT 63 (21-72) U/L Alkaline Phosphatase 76 (38-126) U/L Troponin I (0.000-0.034) ng/mL Total Protein 7.1 (6.3-8.2) g/dL Albumin 4.5 (3.5-5.0) g/dL Lipase 65 (23-300) U/L 11/15/18 Range/Units 22:01 WBC (3.8-10.6) k/uL RBC (4.30-5.90) m/uL Hgb (13.0-17.5) gm/dL Hct (39.0-53.0) % MCV (80.0-100.0) fL MCH (25.0-35.0) pg MCHC (31.0-37.0) g/dL RDW (11.5-15.5) % Plt Count (150-450) k/uL Neutrophils % % Lymphocytes % % Monocytes % % Eosinophils % % Basophils % % Neutrophils # (1.3-7.7) k/uL Lymphocytes # (1.0-4.8) k/uL Monocytes # (0-1.0) k/uL Eosinophils # (0-0.7) k/uL Basophils # (0-0.2) k/uL Manual Slide Review PT (9.0-12.0) sec INR (<1.2) APTT (22.0-30.0) sec Sodium (137-145) mmol/L Potassium (3.5-5.1) mmol/L Chloride (98-107) mmol/L Carbon Dioxide (22-30) mmol/L Anion Gap mmol/L BUN (9-20) mg/dL Creatinine (0.66-1.25) mg/dL Est GFR (CKD-EPI)AfAm (>60 ml/min/1.73 sqM) Est GFR (CKD-EPI)NonAf (>60 ml/min/1.73 sqM) Glucose (74-99) mg/dL Calcium (8.4-10.2) mg/dL Magnesium (1.6-2.3) mg/dL Total Bilirubin (0.2-1.3) mg/dL AST (17-59) U/L ALT (21-72) U/L Alkaline Phosphatase (38-126) U/L Troponin I <0.012 (0.000-0.034) ng/mL Total Protein (6.3-8.2) g/dL Albumin (3.5-5.0) g/dL Lipase (23-300) U/L - Radiology Data Radiology results: report reviewed, image reviewed Two-view x-ray of the chest is obtained. Report was reviewed in its entirety. Impression by Dr. Guardado shows no evidence of acute pulmonary disease. Disposition Clinical Impression: Atypical chest pain Disposition: HOME SELF-CARE Condition: Good Instructions (If sedation given, give patient instructions): Chest Pain (ED) Additional Instructions: Follow-up with your aerodynamic consultant for recheck as soon as possible. Follow-up through primary care physician for recheck in 1-2 days. Return to the emergency department immediately for any new, worsening, or concerning symptoms. Is patient prescribed a controlled substance at d/c from ED?: No Referrals: Mine Walsh MD [Primary Care Provider] - 1-2 days Time of Disposition: 00:12
[2018-11-15 22:36] LABS: Basophils % (A) 1 %; Eosinophils # (A) 0.1 k/uL (0-0.7); Eosinophils % (A) 2 %; HCT 36.2 % (39.0-53.0); Lymphocytes # (A) 1.5 k/uL (1.0-4.8); Lymphocytes % (A) 47 %; MCH 33.4 pg (25.0-35.0); MCV 86.8 fL (80.0-100.0); Mean Platelet Volume 12.1; Monocytes # (A) 0.4 k/uL (0-1.0); Monocytes % (A) 12 %; Neutrophils # (A) 1.2 k/uL (1.3-7.7); Neutrophils % (A) 37 %; RBC 4.18 m/uL (4.30-5.90); RDW 15.8 % (11.5-15.5); WBC 3.3 k/uL (3.8-10.6)
[2018-11-15 22:46] LABS: INR 0.9 (<1.2); Partial Thromboplastin Time 23.4 sec (22.0-30.0); Prothrombin Time 9.6 sec (9.0-12.0)
[2018-11-15 22:47] LABS: ALT 63 U/L (21-72); AST 39 U/L (17-59); African American GFR (CKD) >90 (>60 ml/min/1.73 sqM); Albumin 4.5 g/dL (3.5-5.0); Alkaline Phosphatase 76 U/L (38-126); Anion Gap 11 mmol/L; Blood Urea Nitrogen 11 mg/dL (9-20); Calcium 9.4 mg/dL (8.4-10.2); Carbon Dioxide 24 mmol/L (22-30); Chloride 102 mmol/L (98-107); Glucose 183 mg/dL (74-99); Lipase 65 U/L (23-300); Magnesium 2.1 mg/dL (1.6-2.3); Potassium 4.1 mmol/L (3.5-5.1); Sodium 137 mmol/L (137-145); Total Bilirubin 0.4 mg/dL (0.2-1.3); Total Protein 7.1 g/dL (6.3-8.2)
[2018-11-15 22:49] LABS: MCHC 38.5 g/dL (31.0-37.0)
--- NOTE | 2018-11-15 23:41 | XR ---
EXAM: XR Chest, 2 Views CLINICAL HISTORY: ITS.REASON XR Reason: Chest Pain TECHNIQUE: Frontal and lateral views of the chest. COMPARISON: CXR of 08/16/[address] abdomen and pelvis of 09/16/18. FINDINGS: Lungs: Unremarkable. No consolidation. Pleural space: Unremarkable. No pneumothorax. Heart: Unremarkable. No cardiomegaly. Mediastinum: Unremarkable. Bones/joints: Spinal stimulator device. IMPRESSION: No evidence of acute pulmonary disease
[2018-11-16 01:02] VITALS: BP 129/76; PULSE 72; RESP 16
== END 2018-11-16 01:02 | disposition home or self-care (01) ==
LOC: EC 21:39
DX: R07.89 Other chest pain (principal); R06.02 Shortness of breath; E11.9 Type 2 diabetes mellitus without complications; E78.5 Hyperlipidemia, unspecified; I10 Essential (primary) hypertension; I25.2 Old myocardial infarction; M19.90 Unspecified osteoarthritis, unspecified site; G47.30 Sleep apnea, unspecified; Z99.89 Dependence on other enabling machines and devices; F31.9 Bipolar disorder, unspecified; F41.9 Anxiety disorder, unspecified; F17.200 Nicotine dependence, unspecified, uncomplicated; Z79.84 Long term (current) use of oral hypoglycemic drugs; Z79.51 Long term (current) use of inhaled steroids; Z79.899 Other long term (current) drug therapy; Z88.6 Allergy status to analgesic agent; Z91.018 Allergy to other foods; Z91.048 Other nonmedicinal substance allergy status; Z95.818 Presence of other cardiac implants and grafts; Z96.651 Presence of right artificial knee joint
CPT/HCPCS: 36415; 93005; 80053; 83690; 83735; 84484; 85025; 85610; 85730; 71046; 99285; 96374; 96375; 96361 ×2; J2270; J2405

== ENCOUNTER 2018-12-26 20:16 | Observation (INO) | payer MEDICARE, OTHER ==
[2018-12-26] MEDS ORDERED: NITROGLYCERIN OINT 1 INCH/GM PACKET TOPICAL STA (20:22)
[2018-12-26] MEDS ORDERED: HEPARIN SODIUM,PORCINE 5,000 UNIT/ML 1 ML VIAL IV STA (20:22)
[2018-12-26] MEDS ORDERED: HYDROmorphone 1 MG/ML 1 ML SYRINGE IVP STA (20:24)
[2018-12-26] MEDS ORDERED: HEPARIN SOD,PORK IN 0.45% NACL 25,000 UNIT in 0.45% NACL 1 250ML.BAG IV SCH (20:30)
--- NOTE | 2018-12-26 20:33 | ED ---
Chest Pain HPI - General Stated Complaint: Chest Pain Time Seen by Provider: 12/26/18 20:16 Source: patient, RN notes reviewed Mode of arrival: ambulatory Limitations: no limitations - History of Present Illness Initial Comments: Is a 48-year-old male with a history of heart disease history of diabetes who is a smoker who is S with complaints of the onset of chest pain is been intermittent over the last 2-3 days. He states today it was heavy 9/10 severity at onset about 8-1/2 after nitro and aspirin. He did not have a nitroglycerin prescription home. He has ever prior history of a STEMI. He denies any fevers chills nausea vomiting sweats or other symptoms at this time MD Complaint: chest pain, other - Related Data Home Medications Medication Instructions Recorded Confirmed metFORMIN HCL [Glucophage] 500 mg PO DAILY 06/10/14 12/26/18 Montelukast Sodium [Singulair] 10 mg PO HS 06/01/16 12/26/18 Albuterol Inhaler [Ventolin Hfa 1 - 2 puff INHALATION RT-Q6H PRN 10/15/17 12/26/18 Inhaler] Atorvastatin [Lipitor] 80 mg PO DAILY 10/15/17 12/26/18 Beclomethasone Dipropionate [Qvar 2 puff INHALATION RT-BID 10/15/17 12/26/18 80 mcg] Divalproex Sodium 500 mg PO TID 10/15/17 12/26/18 Fenofibrate Nanocrystallized 145 mg PO DAILY 10/15/17 12/26/18 [Fenofibrate] Gabapentin [Neurontin] 300 mg PO TID 10/15/17 12/26/18 Metoprolol Succinate (ER) [Toprol 25 mg PO HS 10/15/17 12/26/18 XL] Venlafaxine HCl [Effexor XR] 150 mg PO HS 10/15/17 12/26/18 traZODone HCL 150 mg PO HS 10/15/17 12/26/18 Allergies Allergy/AdvReac Type Severity Reaction Status Date / Time naproxen [From Naprosyn] Allergy Unknown Rash/Hives Verified 12/26/18 20:37 adhesive tape Allergy Rash/Hives Verified 12/26/18 20:37 ibuprofen Allergy Itching Verified 12/26/18 20:37 mold Allergy Unknown Verified 12/26/18 20:37 carrot AdvReac Dyspnea Verified 12/26/18 20:37 chocolate flavor AdvReac Dyspnea Verified 12/26/18 20:37 grass pollen-perennial rye, AdvReac Dyspnea Verified 12/26/18 20:37 standar Review of Systems ROS Statement: Those systems with pertinent positive or pertinent negative responses have been documented in the HPI. ROS Other: All systems not noted in ROS Statement are negative. EKG Findings - EKG Results: EKG: interpreted by CHOLO WNL, sinus rhythm, normal axis, normal QRS, normal ST/T, no acute changes (EKG shows normal sinus rhythm 86 appear interval 182 QRS duration 74 QT since QTC 356/[address]-T wave changes) Past Medical History Past Medical History: Chest Pain / Angina, Diabetes Mellitus, GERD/Reflux, GI Bleed, Hyperlipidemia, Hypertension, Myocardial Infarction ([place]), Osteoarthritis (OA), Sleep Apnea/CPAP/BIPAP Additional Past Medical History / Comment(s): chronic back and neck pain(has lumbar and cervial nuero stimulators), herniated discs in the neck and the back. mood disturbance.occ ringing in ears, " in [address] me he heard a soft heart murmur', uses cpap machine Last Myocardial Infarction Date:: 2004 History of Any Multi-Drug Resistant Organisms: None Reported Past Surgical History: Heart Catheterization, Hernia Repair, Joint Replacement Additional Past Surgical History / Comment(s): rt knee arthroscopy x3, lt knee arthroscopy last date 2012,total rt knee replacement and a revision sx cardiac stent x1 2004, stent placed for kidney stone 07/04/2016. Kidney stent has been removed. COLONOSCOPY. neuro stimulator implant cervial and recent another one in lumbar area pt stated he still has yue in place from procedure. Past Anesthesia/Blood Transfusion Reactions: No Reported Reaction Date of Last Stent Placement:: 2004 Past Psychological History: Anxiety, Bipolar, Depression Smoking Status: Current every day smoker Past Alcohol Use History: Rare Past Drug Use History: None Reported - Past Family History Father Family Medical History: Congestive Heart Failure (CHF), Deep Vein Thrombosis (DVT), Myocardial Infarction ([place]), Pulmonary Embolus Additional Family Medical History / Comment(s): [place] at age 38. "hole in colon" Mother Family Medical History: Cancer, COPD, Diabetes Mellitus, Hyperlipidemia Additional Family Medical History / Comment(s): breast and lung cancer Sister(s) Family Medical History: Diabetes Mellitus Additional Family Medical History / Comment(s): bi-polar, anxiety. hysterectomy Brother(s) History Unknown: Yes General Exam - General Exam Comments Initial Comments: This is a well-developed well-nourished awake alert oriented times 3 male Limitations: no limitations General appearance: alert, anxious Head exam: Present: atraumatic, normocephalic, normal inspection Eye exam: Present: normal appearance, PERRL, EOMI. Absent: scleral icterus, conjunctival injection, periorbital swelling ENT exam: Present: normal exam, mucous membranes moist Neck exam: Present: normal inspection. Absent: tenderness, meningismus, lymphadenopathy Respiratory exam: Present: normal lung sounds bilaterally. Absent: respiratory distress, wheezes, rales, rhonchi, stridor Cardiovascular Exam: Present: regular rate, normal rhythm, normal heart sounds. Absent: systolic murmur, diastolic murmur, rubs, gallop, clicks GI/Abdominal exam: Present: soft, normal bowel sounds. Absent: distended, tenderness, guarding, rebound, rigid Extremities exam: Present: normal inspection, full ROM, normal capillary refill. Absent: tenderness, pedal edema, joint swelling, calf tenderness Back exam: Present: normal inspection Neurological exam: Present: alert, oriented X3, CN II-XII intact Psychiatric exam: Present: normal affect, normal mood Skin exam: Present: warm, dry, intact, normal color. Absent: rash Course Vital Signs 12/26/18 20:26 Temperature 99.7 F H Pulse Rate 87 Respiratory 18 Rate Blood Pressure 129/84 O2 Sat by Pulse 96 Oximetry Procedures - Smoking Cessation Time Spent Discussing Smoking Cessation w/Patient (Minutes): 3 Patient Acknowledges Need for Cessation: Yes Chest Pain MDM - MDM X-ray shows no acute findings I did discuss findings with the patient's presentation consistent with angina he will be admitted with consultation by cardiology his d-dimer is mildly elevated which is consistent with prior presentations Critical Care Time Critical Care Time: Yes Critical Care Time: 31 minutes of critical care time which was initial presentation with history physical labs x-rays discussed with paramedics review of old charting reevaluation patient several occasions discussion with the admitting group and documentation of the above Disposition Clinical Impression: Chest pain, Unstable angina pectoris Disposition: ADMITTED IP TO THIS HOSP Condition: Fair Referrals: Mine Walsh MD [Primary Care Provider] - 1-2 days
[2018-12-26 20:45] LABS: ALT 108 U/L (21-72); AST 61 U/L (17-59); African American GFR (CKD) >90 (>60 ml/min/1.73 sqM); Albumin 4.6 g/dL (3.5-5.0); Alkaline Phosphatase 91 U/L (38-126); Anion Gap 12 mmol/L; Blood Urea Nitrogen 16 mg/dL (9-20); Calcium 9.6 mg/dL (8.4-10.2); Carbon Dioxide 22 mmol/L (22-30); Chloride 106 mmol/L (98-107); Creatine Kinase 35 U/L (55-170); Glucose 108 mg/dL (74-99); Magnesium 2.3 mg/dL (1.6-2.3); Potassium 3.9 mmol/L (3.5-5.1); Sodium 140 mmol/L (137-145); Total Bilirubin 0.6 mg/dL (0.2-1.3); Total Protein 7.4 g/dL (6.3-8.2)
[2018-12-26 20:51] LABS: INR 0.9 (<1.2); Partial Thromboplastin Time 22.5 sec (22.0-30.0); Prothrombin Time 9.7 sec (9.0-12.0)
--- NOTE | 2018-12-26 20:53 | XR ---
EXAMINATION: XR chest 2V DATE AND TIME: 12/26/2018 8:40 PM CLINICAL INDICATION: PHH; Chest Pain TECHNIQUE: Departmental protocol COMPARISON: 11/15/2018 FINDINGS: The lungs are clear. The pleural spaces are negative. The cardiac silhouette is not enlarged. The remainder of the mediastinal silhouette is unremarkable. The skeletal structures and soft tissues are negative for acute findings. IMPRESSION: NO ACUTE PROCESS.
[2018-12-26 20:55] LABS: Anisocytosis Slight; HCT 34.9 % (39.0-53.0); HGB 12.4 gm/dL (13.0-17.5); MCH 31.1 pg (25.0-35.0); MCHC 35.5 g/dL (31.0-37.0); MCV 87.6 fL (80.0-100.0); Mean Platelet Volume 8.8; Poikilocytosis Slight; RBC 3.98 m/uL (4.30-5.90); RDW 16.5 % (11.5-15.5)
[2018-12-26 21:01] LABS: D-Dimer 0.83 mg/L FEU (<0.60)
[2018-12-26] MEDS ORDERED: NITROGLYCERIN SL TABS 0.4 MG TAB SUBLINGUAL PRN (21:07)
--- NOTE | 2018-12-26 21:07 | ED ---
Medical Decision Making - Lab Data Result diagrams: 12/26/18 20:26 12/26/18 20:26 Lab Results 12/26/18 12/26/18 12/26/18 Range/Units 20:26 20:26 20:26 WBC 2.7 L (3.8-10.6) k/uL RBC 3.98 L (4.30-5.90) m/uL Hgb 12.4 L (13.0-17.5) gm/dL Hct 34.9 L (39.0-53.0) % MCV 87.6 (80.0-100.0) fL MCH 31.1 (25.0-35.0) pg MCHC 35.5 (31.0-37.0) g/dL RDW 16.5 H (11.5-15.5) % Poikilocytosis Slight Anisocytosis Slight PT 9.7 (9.0-12.0) sec INR 0.9 (<1.2) APTT 22.5 (22.0-30.0) sec D-Dimer 0.83 H (<0.60) mg/L FEU Sodium 140 (137-145) mmol/L Potassium 3.9 (3.5-5.1) mmol/L Chloride 106 (98-107) mmol/L Carbon Dioxide 22 (22-30) mmol/L Anion Gap 12 mmol/L BUN 16 (9-20) mg/dL Creatinine 0.78 (0.66-1.25) mg/dL Est GFR (CKD-EPI)AfAm >90 (>60 ml/min/1.73 sqM) Est GFR (CKD-EPI)NonAf >90 (>60 ml/min/1.73 sqM) Glucose 108 H (74-99) mg/dL Calcium 9.6 (8.4-10.2) mg/dL Magnesium 2.3 (1.6-2.3) mg/dL Total Bilirubin 0.6 (0.2-1.3) mg/dL AST 61 H (17-59) U/L ALT 108 H (21-72) U/L Alkaline Phosphatase 91 (38-126) U/L Creatine Kinase 35 L (55-170) U/L Troponin I (0.000-0.034) ng/mL Total Protein 7.4 (6.3-8.2) g/dL Albumin 4.6 (3.5-5.0) g/dL Lipase 89 (23-300) U/L 12/26/18 Range/Units 20:26 WBC (3.8-10.6) k/uL RBC (4.30-5.90) m/uL Hgb (13.0-17.5) gm/dL Hct (39.0-53.0) % MCV (80.0-100.0) fL MCH (25.0-35.0) pg MCHC (31.0-37.0) g/dL RDW (11.5-15.5) % Poikilocytosis Anisocytosis PT (9.0-12.0) sec INR (<1.2) APTT (22.0-30.0) sec D-Dimer (<0.60) mg/L FEU Sodium (137-145) mmol/L Potassium (3.5-5.1) mmol/L Chloride (98-107) mmol/L Carbon Dioxide (22-30) mmol/L Anion Gap mmol/L BUN (9-20) mg/dL Creatinine (0.66-1.25) mg/dL Est GFR (CKD-EPI)AfAm (>60 ml/min/1.73 sqM) Est GFR (CKD-EPI)NonAf (>60 ml/min/1.73 sqM) Glucose (74-99) mg/dL Calcium (8.4-10.2) mg/dL Magnesium (1.6-2.3) mg/dL Total Bilirubin (0.2-1.3) mg/dL AST (17-59) U/L ALT (21-72) U/L Alkaline Phosphatase (38-126) U/L Creatine Kinase (55-170) U/L Troponin I <0.012 (0.000-0.034) ng/mL Total Protein (6.3-8.2) g/dL Albumin (3.5-5.0) g/dL Lipase (23-300) U/L Disposition Clinical Impression: Chest pain, Unstable angina pectoris, Smoking Disposition: ADMITTED IP TO THIS [facility] Condition: Fair Referrals: Mine Walsh MD [Primary Care Provider] - 1-2 days
[2018-12-26] MEDS ORDERED: ALBUTEROL NEBULIZED 2.5 MG/3 ML INHALATION PRN (21:09)
[2018-12-26] MEDS ORDERED: MORPHINE SULFATE 4 MG/ML SYRINGE IVP PRN (21:11)
[2018-12-26] MEDS ORDERED: SODIUM CHLORIDE 0.9% 1,000 ML IV SCH (21:15)
[2018-12-26 21:35] LABS: Band Neutrophils % 1 %; Eosinophils # (M) 0.05 k/uL (0-0.7); Lymphocytes # (M) 1.56 k/uL (1.0-4.8); Metamyelocytes # (M) 0.05 k/uL (0); Metamyelocytes % 2 %; Monocytes # (M) 0.13 k/uL (0-1.0); Myelocytes # (M) 0.05 k/uL (0); Myelocytes % 2 %; Neutrophils % (M) 30 %; Nucleated Red Blood Cells 2 /100 WBC (0-0); Total Cells Counted 200; WBC 2.6 k/uL (3.8-10.6)
[2018-12-26 21:37] LABS: Large Platelets Present; Polychromasia Present
[2018-12-26 23:24] VITALS: BMI 31.0
[2018-12-26] MEDS: NITROGLYCERIN OINT 1 INCH/GM PACKET TOPICAL SCH (23:33)
[2018-12-26] MEDS: DIVALPROEX 500 MG TABLET.DR PO SCH (23:33)
[2018-12-26] MEDS: GABAPENTIN 300 MG CAP PO SCH (23:33)
[2018-12-27] MEDS ORDERED: HEPARIN SODIUM,PORCINE 5,000 UNIT/ML 1 ML VIAL IV PRN (04:19)
[2018-12-27] MEDS: NITROGLYCERIN OINT 1 INCH/GM PACKET TOPICAL SCH (06:06)
[2018-12-27 06:49] LABS: Glucose,Whole Blood 125 mg/dL (75-99)
[2018-12-27] MEDS: INSULIN ASPART (NovoLOG) 100 UNIT/ML VIAL SQ SCH ×2 (07:58→11:57)
[2018-12-27] MEDS ORDERED: FLUTICASONE 110 MCG INHALER INHALATION SCH (08:00)
[2018-12-27] MEDS: GABAPENTIN 300 MG CAP PO SCH (08:24)
[2018-12-27] MEDS: DIVALPROEX 500 MG TABLET.DR PO SCH (08:25)
[2018-12-27] MEDS ORDERED: ASPIRIN 325 MG TAB PO SCH (09:00)
[2018-12-27] MEDS ORDERED: metFORMIN 500 MG TAB PO SCH (09:00)
[2018-12-27] MEDS ORDERED: FENOFIBRATE 160 MG TAB PO SCH (09:00)
[2018-12-27] MEDS ORDERED: ATORVASTATIN 80 MG TAB PO SCH (09:00)
[2018-12-27 09:49] LABS: Cholesterol 163 mg/dL (<200); HDL Cholesterol 29 mg/dL (40-60); LDL Cholesterol,Calculated 71 mg/dL (0-99); Mean Platelet Volume 13.3; Triglycerides 313 mg/dL (<150)
[2018-12-27 10:13] LABS: Platelet Count 23 k/uL (150-450)
[2018-12-27 11:41] LABS: Glucose,Whole Blood 89 mg/dL (75-99)
[2018-12-27 12:14] VITALS: BP 123/74; PULSE 83; RESP 18; TEMP 98.3
--- NOTE | 2018-12-27 13:12 | CONS ---
CONSULTATION This is a 48-year-old gentleman who sees me in the office on a fairly regular basis. He carries a diagnosis of type 2 diabetes, hypertension, atypical chest pain with unremarkable cardiac cath in December of last year. He has stopped all his medications and tells me he has had some financial issues and therefore could not buy those medications. He came into the hospital with episode of discomfort in the chest. The quality of which seems very atypical and not suggestive of angina. However, troponins are normal. EKG is unremarkable. He is resting comfortably without symptoms. PAST MEDICAL HISTORY: 1. Unremarkable cardiac cath on January 08, 2018. He has a right dominant system. Slightly elevated filling pressures. No significant CAD at that time. 2. Hypertension. 3. Obesity. 4. Type 2 diabetes mellitus. MEDICATIONS: At home include fenofibrate, Toprol-XL 25 mg daily, Singulair 10 mg daily, metformin 500 mg daily, Lipitor 80 mg daily. He also takes albuterol inhaler. ALLERGIES: He is allergic to NAPROXEN and IBUPROFEN. However, patient has not been taking his medications on a regular basis. PHYSICAL EXAMINATION: Blood pressure is 118/70, pulse rate is 80 per minute, regular. HEENT: Unremarkable. Fundus was not examined by me. Neck is supple. There is no JVD. I do not hear any carotid bruit. Heart exam reveals S1, S2. There is a short systolic murmur at the base. Second heart sound is well preserved. Lungs are clear. Abdomen is soft, nontender. Lower extremity with normal pulses. No edema. Central nervous system is normal. EKG revealed sinus mechanism, no acute changes. IMPRESSION: 1. Atypical chest pain. 2. Unremarkable cardiac cath 11 months ago. 3. Type 2 diabetes. 4. Hypertension. 5. Tobacco abuse. 6. Noncompliance with medications. RECOMMENDATIONS: I am recommending that he does not require any workup at this time. I counseled the patient regarding compliance with medications and smoking cessation. Will increase activity, have him ambulate the hallways. If he has no further symptoms, he can go home and I will see him as per his appointment and advised to follow up with his PCP. Thank you very much for the consult. MMNADERL / EMMAN: [id number] /
--- NOTE | 2018-12-27 13:54 | P.DS ---
Providers Date of admission: 12/26/18 21:07 Attending physician: Enedelia Coto Consults: 12/26/18 21:07 Consult Physician Urgent Consulting Provider: Aneesh Hale Consult Reason/Comments: Chest pain Do you want consulting provider notified?: Yes Primary care physician: Nico Beard [facility] Course: As mentioned in HPI Patient Condition at Discharge: Fair Plan - Discharge Summary New Discharge Prescriptions: Continue metFORMIN HCL [Glucophage] 500 mg PO DAILY Montelukast Sodium [Singulair] 10 mg PO HS Albuterol Inhaler [Ventolin Hfa Inhaler] 1 - 2 puff INHALATION RT-Q6H PRN PRN Reason: Shortness Of Breath Metoprolol Succinate (ER) [Toprol XL] 25 mg PO HS Atorvastatin [Lipitor] 80 mg PO DAILY traZODone HCL 150 mg PO HS Venlafaxine HCl [Effexor XR] 150 mg PO HS Gabapentin [Neurontin] 300 mg PO TID Fenofibrate Nanocrystallized [Fenofibrate] 145 mg PO DAILY Divalproex Sodium 500 mg PO TID Beclomethasone Dipropionate [Qvar 80 mcg] 2 puff INHALATION RT-BID Discharge Medication List metFORMIN HCL [Glucophage] 500 mg PO DAILY 06/10/14 [History] Montelukast Sodium [Singulair] 10 mg PO HS 06/01/16 [History] Albuterol Inhaler [Ventolin Hfa Inhaler] 1 - 2 puff INHALATION RT-Q6H PRN 10/15/17 [History] Atorvastatin [Lipitor] 80 mg PO DAILY 10/15/17 [History] Beclomethasone Dipropionate [Qvar 80 mcg] 2 puff INHALATION RT-BID 10/15/17 [History] Divalproex Sodium 500 mg PO TID 10/15/17 [History] Fenofibrate Nanocrystallized [Fenofibrate] 145 mg PO DAILY 10/15/17 [History] Gabapentin [Neurontin] 300 mg PO TID 10/15/17 [History] Metoprolol Succinate (ER) [Toprol XL] 25 mg PO HS 10/15/17 [History] Venlafaxine HCl [Effexor XR] 150 mg PO HS 10/15/17 [History] traZODone HCL 150 mg PO HS 10/15/17 [History] Follow up Appointment(s)/Referral(s): Mine Walsh MD [Primary Care Provider] - 3 Days
--- NOTE | 2018-12-27 13:54 | P.HPIM ---
History of Present Illness 48-year-old male came in with complains of precordial chest pain on the left side of the chest with some tingling questionable on the right hand. Patient had a carotid catheterization December last year which did not show any signific ant atherosclerotic coronary occluded his disease that needed stenting. Patient denied any fever chills nausea vomiting abdominal pain patient and diaphoresis with chest congestion is constant moderate. Left side of the chest. Not associated with food not associated with deep breathing. EKG did not show any ST-T wave changes troponins were negative patient was evaluated cardiology cleared for discharge. Patient's LDL is 70 patient takes statin patient is also on Depakote along with gabapentin all of which affect the liver evidences are minimally elevated. Repeat liver enzymes need to be done as an outpatient and if they're fairly stable no changes need to be done to his medications or else his medications need to be reevaluated if they continue to go up. Patient has minimally elevated d-dimer although his symptomology is not typical for any pulmonary embolism Review of Systems REVIEW OF SYSTEMS: CONSTITUTIONAL: No fever, no malaise, no fatigue. HEENT: No recent visual problems or hearing problems. Denied any sore throat. CARDIOVASCULAR: No, orthopnea, PND, no palpitations, no syncope. PULMONARY: No shortness of breath, no cough, no hemoptysis. GASTROINTESTINAL: No diarrhea, no nausea, no vomiting, no abdominal pain. NEUROLOGICAL: No headaches, no weakness, no numbness. HEMATOLOGICAL: Denies any bleeding or petechiae. GENITOURINARY: Denies any burning micturition, frequency, or urgency. MUSCULOSKELETAL/RHEUMATOLOGICAL: Denies any joint pain, swelling, or any muscle pain. ENDOCRINE: Denies any polyuria or polydipsia. The rest of the 14-point review of systems is negative. Past Medical History Past Medical History: Asthma, Chest Pain / Angina, Diabetes Mellitus, GERD/Reflux, GI Bleed, Hyperlipidemia, Hypertension, Myocardial Infarction ([place]), Osteoarthritis (OA), Sleep Apnea/CPAP/BIPAP Additional Past Medical History / Comment(s): chronic back and neck pain(has lumbar and cervial nuero stimulators), herniated discs in the neck and the back. mood disturbance.occ ringing in ears, " in 1994 a told me he heard a soft heart murmur', uses cpap machine Last Myocardial Infarction Date:: 2004 History of Any Multi-Drug Resistant Organisms: None Reported Past Surgical History: Heart Catheterization, Hernia Repair, Joint Replacement Additional Past Surgical History / Comment(s): rt knee arthroscopy x3, lt knee arthroscopy last date 2012,total rt knee replacement and a revision sx cardiac stent x1 2004, stent placed for kidney stone 07/04/2016. Kidney stent has been removed. COLONOSCOPY. neuro stimulator implant cervial and recent another one in lumbar area pt stated he still has yue in place from procedure. Past Anesthesia/Blood Transfusion Reactions: No Reported Reaction Date of Last Stent Placement:: 2004 Past Psychological History: Anxiety, Bipolar, Depression, PTSD Additional Psychological History / Comment(s): Lives with his , daughter, sister/brother in law, 1 cat, 1 dog. pets: 1 cat, 1 dog. Was in service for 4 years in the [employer] and traveled through the [place] and in [place] Smoking Status: Current every day smoker Past Alcohol Use History: Occasional Additional Past Alcohol Use History / Comment(s): STARTED SMOKING AT AGE 23(1994) Past Drug Use History: None Reported - Past Family History Father Family Medical History: Congestive Heart Failure (CHF), Deep Vein Thrombosis (DVT), Myocardial Infarction ([place]), Pulmonary Embolus Additional Family Medical History / Comment(s): [place] at age 38. "hole in colon" Mother Family Medical History: Cancer, COPD, Diabetes Mellitus, Hyperlipidemia Additional Family Medical History / Comment(s): breast and lung cancer Sister(s) Family Medical History: Diabetes Mellitus Additional Family Medical History / Comment(s): bi-polar, anxiety. hysterectomy Brother(s) History Unknown: Yes Medications and Allergies Home Medications Medication Instructions Recorded Confirmed Type metFORMIN HCL [Glucophage] 500 mg PO DAILY 06/10/14 12/26/18 History Montelukast Sodium [Singulair] 10 mg PO HS 06/01/16 12/26/18 History Albuterol Inhaler [Ventolin Hfa 1 - 2 puff INHALATION RT-Q6H PRN 10/15/17 12/26/18 History Inhaler] Atorvastatin [Lipitor] 80 mg PO DAILY 10/15/17 12/26/18 History Beclomethasone Dipropionate [Qvar 2 puff INHALATION RT-BID 10/15/17 12/26/18 History 80 mcg] Divalproex Sodium 500 mg PO TID 10/15/17 12/26/18 History Fenofibrate Nanocrystallized 145 mg PO DAILY 10/15/17 12/26/18 History [Fenofibrate] Gabapentin [Neurontin] 300 mg PO TID 10/15/17 12/26/18 History Metoprolol Succinate (ER) [Toprol 25 mg PO HS 10/15/17 12/26/18 History XL] Venlafaxine HCl [Effexor XR] 150 mg PO 10/15/17 12/26/18 History traZODone HCL 150 mg PO 10/15/17 12/26/18 History Allergies Allergy/AdvReac Type Severity Reaction Status Date / Time naproxen [From Naprosyn] Allergy Unknown Rash/Hives Verified 12/26/18 20:37 adhesive tape Allergy Rash/Hives Verified 12/26/18 20:37 ibuprofen Allergy Itching Verified 12/26/18 20:37 mold Allergy Unknown Verified 12/26/18 20:37 carrot AdvReac Dyspnea Verified 12/26/18 20:37 chocolate flavor AdvReac Dyspnea Verified 12/26/18 20:37 grass pollen-perennial rye, AdvReac Dyspnea Verified 12/26/18 20:37 standar Physical Exam Vitals: Vital Signs Temp Pulse Pulse Resp BP BP Pulse Ox 12/27/18 12:00 98.3 F 83 18 123/74 99 12/27/18 11:54 80 16 12/27/18 08:00 98.1 F 80 16 107/65 96 12/27/18 04:43 98.3 F 82 18 119/55 98 12/27/18 04:39 18 12/27/18 00:00 18 12/26/18 22:28 99.1 F 88 18 124/77 96 12/26/18 20:26 99.7 F H 87 18 129/84 96 Intake and Output 12/26/18 12/27/18 12/27/18 22:59 06:59 14:59 Intake Total 76.667 Balance 76.667 Intake: Intake, IV Titration 76.667 Amount Heparin Sod,Pork in 0.45% 76.667 NaCl 25,000 unit In 0.45 % NaCl 1 250ml.bag @ 10.5 UNITS/KG/HR 10.002 mls/ hr IV .Q24H [facility] Rx#: [id number] Other: Voiding Method Toilet Toilet # Voids 1 Weight 95.254 kg PHYSICAL EXAMINATION: GENERAL: The patient is alert and oriented x3, not in any acute distress. Well developed, well nourished. HEENT: Pupils are round and equally reacting to light. EOMI. No scleral icterus. No conjunctival pallor. Normocephalic, atraumatic. No pharyngeal erythema. No thyromegaly. CARDIOVASCULAR: S1 and S2 present. No murmurs, rubs, or gallops. PULMONARY: Chest is clear to auscultation, no wheezing or crackles. ABDOMEN: Soft, nontender, nondistended, normoactive bowel sounds. No palpable organomegaly. MUSCULOSKELETAL: No joint swelling or deformity. EXTREMITIES: No cyanosis, clubbing, or pedal edema. NEUROLOGICAL: Gross neurological examination did not reveal any focal deficits. SKIN: No rashes. Results CBC & Chem 7: 12/27/18 09:26 12/26/18 20:26 Labs: Abnormal Lab Results - Last 24 Hours (Table) 12/26/18 12/26/18 12/26/18 Range/Units 20:26 20:26 20:26 WBC 2.6 L (3.8-10.6) k/uL RBC 3.98 L (4.30-5.90) m/uL Hgb 12.4 L (13.0-17.5) gm/dL Hct 34.9 L (39.0-53.0) % RDW 16.5 H (11.5-15.5) % Plt Count (150-450) k/uL Neutrophils # (Manual) 0.80 L (1.3-7.7) k/uL Metamyelocytes # (Man) 0.05 H (0) k/uL Myelocytes # (Manual) 0.05 H (0) k/uL Nucleated RBCs 2 H (0-0) /100 WBC D-Dimer 0.83 H (<0.60) mg/L FEU Glucose 108 H (74-99) mg/dL POC Glucose (mg/dL) (75-99) mg/dL AST 61 H (17-59) U/L ALT 108 H (21-72) U/L Creatine Kinase 35 L (55-170) U/L Triglycerides (<150) mg/dL HDL Cholesterol (40-60) mg/dL 12/27/18 12/27/18 12/27/18 Range/Units 06:48 09:26 09:26 WBC (3.8-10.6) k/uL RBC (4.30-5.90) m/uL Hgb (13.0-17.5) gm/dL Hct (39.0-53.0) % RDW (11.5-15.5) % Plt Count 23 L (150-450) k/uL Neutrophils # (Manual) (1.3-7.7) k/uL Metamyelocytes # (Man) (0) k/uL Myelocytes # (Manual) (0) k/uL Nucleated RBCs (0-0) /100 WBC D-Dimer (<0.60) mg/L FEU Glucose (74-99) mg/dL POC Glucose (mg/dL) 125 H (75-99) mg/dL AST (17-59) U/L ALT (21-72) U/L Creatine Kinase (55-170) U/L Triglycerides 313 H (<150) mg/dL HDL Cholesterol 29 L (40-60) mg/dL Thrombosis Risk Factor Assmnt - Choose All That Apply Any of the Below Risk Factors Present?: Yes Each Factor Represents 1 point: Age 41-60 years, Obesity (BMI >25) Thrombosis Risk Factor Assessment Total Risk Factor Score: 2 Thrombosis Risk Factor Assessment Level: Low Risk Assessment and Plan Plan: Chest pain: Rule out acute concurrent syndromes was a valid by cardiology patient had a recent cardiac catheterization which did not show any occlusive disease that needs intervention. Patient will be discharged today -Hyperlipidemia -Diabetes mellitus -Sleep apnea and uses CPAP machine at home --Hypertension -Bipolar disorder for which patient is on Depakote which will be continued further management as mentioned above -Minimally elevated liver enzymes management as mentioned in the history. Patient will be discharged today
[2018-12-27] MEDS ORDERED: traZODone HCL 50 MG TAB PO SCH (21:00)
[2018-12-27] MEDS ORDERED: MONTELUKAST 10 MG TAB PO SCH (21:00)
[2018-12-27] MEDS ORDERED: VENLAFAXINE HCL ER 75 MG CAP PO SCH (21:00)
[2018-12-27] MEDS ORDERED: METOPROLOL SUCCINATE (ER) 25 MG TAB.ER.24H PO SCH (21:00)
== END 2018-12-27 14:07 | disposition home or self-care (01) ==
LOC: EC 20:16 → 1SOBS 21:07
PROVIDERS: ADMIT Hospitalist; ATTEND Hospitalist
DX: R07.89 Other chest pain (principal); I10 Essential (primary) hypertension; E78.5 Hyperlipidemia, unspecified; E11.9 Type 2 diabetes mellitus without complications; Z99.89 Dependence on other enabling machines and devices; R79.89 Other specified abnormal findings of blood chemistry; G47.30 Sleep apnea, unspecified; F31.9 Bipolar disorder, unspecified; F43.10 Post-traumatic stress disorder, unspecified; F41.9 Anxiety disorder, unspecified; R74.8 Abnormal levels of other serum enzymes; K21.9 Gastro-esophageal reflux disease without esophagitis; J45.909 Unspecified asthma, uncomplicated; M19.90 Unspecified osteoarthritis, unspecified site; Z91.14 Patient's other noncompliance with medication regimen; R20.2 Paresthesia of skin; G89.29 Other chronic pain; M54.9 Dorsalgia, unspecified; M50.20 Other cervical disc displacement, unspecified cervical region; E66.9 Obesity, unspecified; Z68.31 Body mass index [BMI] 31.0-31.9, adult; F17.200 Nicotine dependence, unspecified, uncomplicated; Z79.84 Long term (current) use of oral hypoglycemic drugs; Z79.51 Long term (current) use of inhaled steroids; Z79.899 Other long term (current) drug therapy; Z88.6 Allergy status to analgesic agent; Z91.018 Allergy to other foods; Z91.048 Other nonmedicinal substance allergy status; I25.2 Old myocardial infarction; Z95.5 Presence of coronary angioplasty implant and graft; Z96.651 Presence of right artificial knee joint; Z96.9 Presence of functional implant, unspecified; Z87.442 Personal history of urinary calculi; Z83.3 Family history of diabetes mellitus; Z82.5 Family history of asthma and other chronic lower respiratory diseases; Z80.3 Family history of malignant neoplasm of breast; Z80.1 Family history of malignant neoplasm of trachea, bronchus and lung; Z81.8 Family history of other mental and behavioral disorders; Z82.49 Family history of ischemic heart disease and other diseases of the circulatory system; Z83.438 Family history of other disorder of lipoprotein metabolism and other lipidemia; Z83.2 Family history of diseases of the blood and blood-forming organs and certain disorders involving the immune mechanism
CPT/HCPCS: 96366 ×3; 96376 ×2; 96365; 96375; 99291; 36415; 93005; 85379; 83880; 80061; 80053; 82550; 83690; 83735; 84484 ×2; 85025; 85049; 85610; 85730 ×2; 71046; G0378 ×2; J1644 ×3; J1170

== ENCOUNTER 2018-12-29 16:02 | Emergency (ER) | payer MEDICARE, OTHER ==
[2018-12-29 16:09] VITALS: TEMP 98.1
--- NOTE | 2018-12-29 16:53 | XR ---
EXAMINATION TYPE: XR shoulder complete LT DATE OF EXAM: 12/29/2018 CLINICAL HISTORY: Left shoulder pain with no known injury TECHNIQUE: Three views of the left shoulder are obtained. COMPARISON: None. FINDINGS: There is no acute fracture/dislocation evident in the left shoulder. The acromioclavicula r and glenohumeral joint spaces appear within normal limits. The visualized ribs are intact and unre markable. Partially visualized nerve root stimulators. IMPRESSION: There is no acute fracture or dislocation in the left shoulder.
[2018-12-29 17:32] VITALS: BP 123/77; PULSE 80; RESP 18
--- NOTE | 2018-12-29 17:48 | ED ---
General Adult HPI - General Chief complaint: Extremity Injury, Upper Stated complaint: cannot move left arm Time Seen by Provider: 12/29/18 16:11 Source: patient Mode of arrival: ambulatory Limitations: no limitations - History of Present Illness Initial comments: Patient is a 48-year-old male presenting to the emergency department with left shoulder pain. Patient reports that incident occurred today after he was working to help his friend move. Patient reports pain is exacerbated with movement. Patient reports that pain is alleviated at rest. Patient denies any numbness or tingling. Patient denies any trauma to the left shoulder. Patient denies any previous injury. Patient denies taking any medication to alleviate the symptoms. Patient reports the pain is a 7 and throbbing. - Related Data Home Medications Medication Instructions Recorded Confirmed metFORMIN HCL [Glucophage] 500 mg PO DAILY 06/10/14 12/26/18 Montelukast Sodium [Singulair] 10 mg PO HS 06/01/16 12/26/18 Albuterol Inhaler [Ventolin Hfa 1 - 2 puff INHALATION RT-Q6H PRN 10/15/17 12/26/18 Inhaler] Atorvastatin [Lipitor] 80 mg PO DAILY 10/15/17 12/26/18 Beclomethasone Dipropionate [Qvar 2 puff INHALATION RT-BID 10/15/17 12/26/18 80 mcg] Divalproex Sodium 500 mg PO TID 10/15/17 12/26/18 Fenofibrate Nanocrystallized 145 mg PO DAILY 10/15/17 12/26/18 [Fenofibrate] Gabapentin [Neurontin] 300 mg PO TID 10/15/17 12/26/18 Metoprolol Succinate (ER) [Toprol 25 mg PO HS 10/15/17 12/26/18 XL] Venlafaxine HCl [Effexor XR] 150 mg PO HS 10/15/17 12/26/18 traZODone HCL 150 mg PO HS 10/15/17 12/26/18 Allergies Allergy/AdvReac Type Severity Reaction Status Date / Time naproxen [From Naprosyn] Allergy Unknown Rash/Hives Verified 12/29/18 16:09 adhesive tape Allergy Rash/Hives Verified 12/29/18 16:09 ibuprofen Allergy Itching Verified 12/29/18 16:09 mold Allergy Unknown Verified 12/29/18 16:09 carrot AdvReac Dyspnea Verified 12/29/18 16:09 chocolate flavor AdvReac Dyspnea Verified 12/29/18 16:09 grass pollen-perennial rye, AdvReac Dyspnea Verified 12/29/18 16:09 standar Review of Systems ROS Statement: Those systems with pertinent positive or pertinent negative responses have been documented in the HPI. ROS Other: All systems not noted in ROS Statement are negative. Past Medical History Past Medical History: Asthma, Chest Pain / Angina, Diabetes Mellitus, GERD/Reflux, GI Bleed, Hyperlipidemia, Hypertension, Myocardial Infarction ([place]), Osteoarthritis ([place]), Sleep Apnea/CPAP/BIPAP Additional Past Medical History / Comment(s): chronic back and neck pain(has lumbar and cervial nuero stimulators), herniated discs in the neck and the back. mood disturbance.occ ringing in ears, " in [address] me he heard a soft heart murmur', uses cpap machine Last Myocardial Infarction Date:: 2004 History of Any Multi-Drug Resistant Organisms: None Reported Past Surgical History: Heart Catheterization, Hernia Repair, Joint Replacement Additional Past Surgical History / Comment(s): rt knee arthroscopy x3, lt knee arthroscopy last date 2012,total rt knee replacement and a revision sx cardiac stent x1 2004, stent placed for kidney stone 07/04/2016. Kidney stent has been removed. COLONOSCOPY. neuro stimulator implant cervial and recent another one in lumbar area pt stated he still has yue in place from procedure. Past Anesthesia/Blood Transfusion Reactions: No Reported Reaction Date of Last Stent Placement:: 2004 Past Psychological History: Anxiety, Bipolar, Depression, PTSD Smoking Status: Current every day smoker Past Alcohol Use History: Occasional Past Drug Use History: None Reported - Past Family History Father Family Medical History: Congestive Heart Failure (CHF), Deep Vein Thrombosis (DVT), Myocardial Infarction ([place]), Pulmonary Embolus Additional Family Medical History / Comment(s): [place] at age 38. "hole in colon" Mother Family Medical History: Cancer, COPD, Diabetes Mellitus, Hyperlipidemia Additional Family Medical History / Comment(s): breast and lung cancer Sister(s) Family Medical History: Diabetes Mellitus Additional Family Medical History / Comment(s): bi-polar, anxiety. hysterectomy Brother(s) History Unknown: Yes General Exam Limitations: no limitations General appearance: alert, in no apparent distress Head exam: Present: atraumatic, normocephalic Eye exam: Present: normal appearance, PERRL, EOMI Pupils: Present: normal accommodation ENT exam: Present: normal exam, mucous membranes moist, normal external ear exam Neck exam: Present: normal inspection, full ROM Respiratory exam: Present: normal lung sounds bilaterally Cardiovascular Exam: Present: regular rate, normal rhythm, normal heart sounds Extremities exam: Present: normal inspection, tenderness, normal capillary refill, other (+2 ulnar radial pulses.). Absent: full ROM (Limited range of motion in the right shoulder due to pain. Full range of motion with passive movement) Back exam: Present: normal inspection, full ROM Neurological exam: Present: alert, oriented X3 Psychiatric exam: Present: normal affect, normal mood Skin exam: Present: warm, intact, normal color Course Vital Signs 12/29/18 12/29/18 16:07 17:29 Temperature 98.1 F Pulse Rate 94 80 Respiratory 16 18 Rate Blood Pressure 131/82 123/77 O2 Sat by Pulse 99 99 Oximetry Medical Decision Making - Medical Decision Making Patient is a 48-year-old male presenting to emergency Department with a chief complaint of left shoulder pain. X-ray of the left shoulder is negative for acute fracture or dislocations. I suspect the patient's has suffered some damage to his rotator cuff muscles which are causing his aches and pains. Patient advised to follow with orthopedics for further management. Strict return parameters were thoroughly discussed the patient was understanding and agreeable. Case discussed with physician. Disposition Clinical Impression: Limited range of motion of shoulder Disposition: HOME SELF-CARE Condition: Stable Instructions (If sedation given, give patient instructions): Rotator Cuff Injury (ED) Additional Instructions: Please follow up with orthopedics. Please return to emergency department if symptoms worsen. Is patient prescribed a controlled substance at d/c from ED?: No Referrals: Mine Walsh MD [Primary Care Provider] - 1-2 days Dylon Rey DO [Medical Doctor] - 1-2 days Time of Disposition: 17:47
== END 2018-12-29 18:01 | disposition home or self-care (01) ==
LOC: EC 16:02
DX: M25.612 Stiffness of left shoulder, not elsewhere classified (principal); J45.909 Unspecified asthma, uncomplicated; E11.9 Type 2 diabetes mellitus without complications; E78.5 Hyperlipidemia, unspecified; I10 Essential (primary) hypertension; I25.2 Old myocardial infarction; G47.30 Sleep apnea, unspecified; F41.9 Anxiety disorder, unspecified; M19.90 Unspecified osteoarthritis, unspecified site; F31.9 Bipolar disorder, unspecified; F17.200 Nicotine dependence, unspecified, uncomplicated; Z79.84 Long term (current) use of oral hypoglycemic drugs; Z79.899 Other long term (current) drug therapy; Z88.6 Allergy status to analgesic agent; Z91.048 Other nonmedicinal substance allergy status; Z91.018 Allergy to other foods; Z96.651 Presence of right artificial knee joint; Z95.5 Presence of coronary angioplasty implant and graft
CPT/HCPCS: 99283

== ENCOUNTER 2019-01-10 19:56 | Emergency (ER) | payer MEDICARE, OTHER ==
[2019-01-10 20:04] VITALS: RESP 18
[2019-01-10] MEDS ORDERED: SODIUM CHLORIDE 0.9% 1,000 ML IV STA (20:21)
[2019-01-10] MEDS ORDERED: ACETAMINOPHEN TAB 500 MG TAB PO STA (20:21)
--- NOTE | 2019-01-10 20:26 | ED ---
General Adult HPI - General Chief complaint: Upper Respiratory Infection Stated complaint: cough, congestion Time Seen by Provider: 01/10/19 20:07 Source: patient Mode of arrival: ambulatory Limitations: no limitations - History of Present Illness Initial comments: Dictation was produced using [employer] dictation software. please excuse any grammatical, word or spelling errors. Chief Complaint: 48-year-old male multiple comorbidities presents with fever, productive cough History of Present Illness: 48-year-old male with multiple comorbidities presents with fever, productive cough. He states his symptoms began yesterday. Patient states he's symptoms started yesterday however progressed to today brought him to come to the emergency department. Patient is having fevers at home. He feels like his head is hot. He has been having cough productive of yellow sputum. Denies any chest pain. He does report some mild shortness of breath. Denies any burning urination. Does have mild sore throat. Denies any abdominal pain. No burning on urination no diarrhea. Patient was not recently admitted to the hospital. The ROS documented in this emergency department record has been reviewed and confirmed by me. Those systems with pertinent positive or negative responses have been documented in the HPI. All other systems are other negative and/or noncontributory. PHYSICAL EXAM: General Impression: Alert and oriented x3, not in acute distress HEENT: Normocephalic atraumatic, extra-ocular movements intact, pupils equal and reactive to light bilaterally, mucous membranes moist, mild oropharyngeal erythema, no TM effusion. Cardiovascular: Heart regular rate and rhythm, S1&S2 audible, no murmurs, rubs or gallops Chest: Lungs clear to auscultation bilaterally, no rhonchi, no wheeze, no rales Abdomen: Bowel sounds present, abdomen soft, non-tender, non-distended, no organomegaly Musculoskeletal: Pulses present and equal in all extremities, no peripheral edema Motor: no focal deficits noted Neurological: CN II-XII grossly intact, no focal motor or sensory deficits noted Skin: Intact with no visualized rashes Psych: Normal affect and mood ED course: 48-year-old male multiple comorbidities presents with respiratory infectious symptoms.. Vital signs upon arrival shows him for 11.3, rest of vital signs within acceptable limits. Laboratory evaluation obtained. Leukopenia of 2.3. Patient has a history of leukopenia. This appears to be a new finding and patient however was identified earlier this month. Rest of CBC is unremarkable. Lab was not able to quantify platelet count. Patient has a hemoglobin of 10.5. Embolic panel is unremarkable. Urinalysis is negative. Group A strep and influenza test is negative. Chest x-ray is unremarkable. Patient was treated with intravenous fluids and antipyretics. Z reevaluated at bedside found to be within stable medical condition. Patient's symptoms are more likely secondary to viral URI given that his significant other has similar symptoms. This point there is concern that patient's symptoms are from bacterial pneumonia without radiographi c evidence. Patient given azithromycin pack however he is told to hold it for approximately 2-3 days if his symptoms get worse than he is instructed to take these medications. Does have follow-up with primary care physician. Patient is told that he likely has pancytopenia and will need to be evaluated further possibly by receiver bulk system. Return for is discussed. Patient discharged. - Related Data Home Medications Medication Instructions Recorded Confirmed metFORMIN HCL [Glucophage] 500 mg PO DAILY 06/10/14 01/10/19 Montelukast Sodium [Singulair] 10 mg PO HS 06/01/16 01/10/19 Albuterol Inhaler [Ventolin Hfa 1 - 2 puff INHALATION RT-Q6H PRN 10/15/17 01/10/19 Inhaler] Atorvastatin [Lipitor] 80 mg PO DAILY 10/15/17 01/10/19 Beclomethasone Dipropionate [Qvar 2 puff INHALATION RT-BID 10/15/17 01/10/19 80 mcg] Divalproex Sodium 500 mg PO TID 10/15/17 01/10/19 Fenofibrate Nanocrystallized 145 mg PO DAILY 10/15/17 01/10/19 [Fenofibrate] Gabapentin [Neurontin] 300 mg PO TID 10/15/17 01/10/19 Metoprolol Succinate (ER) [Toprol 25 mg PO HS 10/15/17 01/10/19 XL] Venlafaxine HCl [Effexor XR] 150 mg PO HS 10/15/17 01/10/19 traZODone HCL 150 mg PO HS 10/15/17 01/10/19 Dicyclomine [Bentyl] 20 mg PO TID 08/16/19 08/16/19 Nitroglycerin Sl Tabs [Nitrostat] 0.4 mg SUBLINGUAL Q5M PRN 01/10/19 01/10/19 Previous Rx's Medication Instructions Recorded Azithromycin [Zithromax Z-pack] 0 mg PO DIRECTED #6 tab 01/10/19 Allergies Allergy/AdvReac Type Severity Reaction Status Date / Time naproxen [From Naprosyn] Allergy Unknown Rash/Hives Verified 01/10/19 20:24 adhesive tape Allergy Rash/Hives Verified 01/10/19 20:24 ibuprofen Allergy Itching Verified 01/10/19 20:24 mold Allergy Unknown Verified 01/10/19 20:24 carrot AdvReac Dyspnea Verified 01/10/19 20:24 chocolate flavor AdvReac Dyspnea Verified 01/10/19 20:24 grass pollen-perennial rye, AdvReac Dyspnea Verified 01/10/19 20:24 standar Review of Systems ROS Statement: Those systems with pertinent positive or pertinent negative responses have been documented in the HPI. ROS Other: All systems not noted in ROS Statement are negative. Past Medical History Past Medical History: Asthma, Chest Pain / Angina, Diabetes Mellitus, GERD/Reflux, GI Bleed, Hyperlipidemia, Hypertension, Myocardial Infarction ([place]), Osteoarthritis (OA), Sleep Apnea/CPAP/BIPAP Additional Past Medical History / Comment(s): chronic back and neck pain(has lumbar and cervial nuero stimulators), herniated discs in the neck and the back. mood disturbance.occ ringing in ears, " in [address] me he heard a soft heart murmur', uses cpap machine Last Myocardial Infarction Date:: 2004 History of Any Multi-Drug Resistant Organisms: None Reported Past Surgical History: Heart Catheterization, Hernia Repair, Joint Replacement Additional Past Surgical History / Comment(s): rt knee arthroscopy x3, lt knee arthroscopy last date 2012,total rt knee replacement and a revision sx cardiac stent x1 2004, stent placed for kidney stone 07/04/2016. Kidney stent has been removed. COLONOSCOPY. neuro stimulator implant cervial and recent another one in lumbar area pt stated he still has yue in place from procedure. Past Anesthesia/Blood Transfusion Reactions: No Reported Reaction Date of Last Stent Placement:: 2004 Past Psychological History: Anxiety, Bipolar, Depression, PTSD Smoking Status: Current every day smoker Past Alcohol Use History: Occasional Past Drug Use History: None Reported - Past Family History Father Family Medical History: Congestive Heart Failure (CHF), Deep Vein Thrombosis (DVT), Myocardial Infarction ([place]), Pulmonary Embolus Additional Family Medical History / Comment(s): [place] at age 38. "hole in colon" Mother Family Medical History: Cancer, COPD, Diabetes Mellitus, Hyperlipidemia Additional Family Medical History / Comment(s): breast and lung cancer Sister(s) Family Medical History: Diabetes Mellitus Additional Family Medical History / Comment(s): bi-polar, anxiety. hysterectomy Brother(s) History Unknown: Yes General Exam Limitations: no limitations Course Vital Signs 01/10/19 20:01 Temperature 101.3 F H Pulse Rate 98 Respiratory 18 Rate Blood Pressure 119/75 O2 Sat by Pulse 97 Oximetry Medical Decision Making - Lab Data Result diagrams: 01/10/19 20:35 01/10/19 20:35 Lab Results 01/10/19 01/10/19 01/10/19 Range/Units 20:12 20:12 20:12 WBC (3.8-10.6) k/uL RBC (4.30-5.90) m/uL Hgb (13.0-17.5) gm/dL Hct (39.0-53.0) % MCV (80.0-100.0) fL MCH (25.0-35.0) pg MCHC (31.0-37.0) g/dL RDW (11.5-15.5) % Plt Count (150-450) k/uL Neutrophils % (Manual) % Band Neutrophils % % Lymphocytes % (Manual) % Monocytes % (Manual) % Eosinophils % (Manual) % Neutrophils # (Manual) (1.3-7.7) k/uL Lymphocytes # (Manual) (1.0-4.8) k/uL Monocytes # (Manual) (0-1.0) k/uL Eosinophils # (Manual) (0-0.7) k/uL Nucleated RBCs (0-0) /100 WBC Manual Slide Review Reactive Lymphocytes Poikilocytosis Anisocytosis Sodium (137-145) mmol/L Potassium (3.5-5.1) mmol/L Chloride (98-107) mmol/L Carbon Dioxide (22-30) mmol/L Anion Gap mmol/L BUN (9-20) mg/dL Creatinine (0.66-1.25) mg/dL Est GFR (CKD-EPI)AfAm (>60 ml/min/1.73 sqM) Est GFR (CKD-EPI)NonAf (>60 ml/min/1.73 sqM) Glucose (74-99) mg/dL Calcium (8.4-10.2) mg/dL Urine Color Yellow Urine Appearance Clear (Clear) Urine pH 7.0 (5.0-8.0) Ur Specific [place] 1.027 (1.001-1.035) Urine Protein Negative (Negative) Urine Glucose (UA) Negative (Negative) Urine Ketones Trace H (Negative) Urine Blood Negative (Negative) Urine Nitrite Negative (Negative) Urine Bilirubin Negative (Negative) Urine Urobilinogen >12.0 (<2.0) mg/dL Ur Leukocyte Esterase Negative (Negative) Influenza Type A RNA Not Detected (Not Detectd) Influenza Type B (PCR) Not Detected (Not Detectd) Group A Strep Rapid Negative (Negative) 01/10/19 01/10/19 Range/Units 20:35 20:35 WBC 2.3 L (3.8-10.6) k/uL RBC 3.47 L (4.30-5.90) m/uL Hgb 10.5 L (13.0-17.5) gm/dL Hct 30.0 L (39.0-53.0) % MCV 86.5 (80.0-100.0) fL MCH 30.2 (25.0-35.0) pg MCHC 35.0 (31.0-37.0) g/dL RDW 17.1 H (11.5-15.5) % Plt Count (150-450) k/uL Neutrophils % (Manual) 21 % Band Neutrophils % 4 % Lymphocytes % (Manual) 65 % Monocytes % (Manual) 10 % Eosinophils % (Manual) 1 % Neutrophils # (Manual) 0.50 L (1.3-7.7) k/uL Lymphocytes # (Manual) 1.50 (1.0-4.8) k/uL Monocytes # (Manual) 0.23 (0-1.0) k/uL Eosinophils # (Manual) 0.02 (0-0.7) k/uL Nucleated RBCs 3 H (0-0) /100 WBC Manual Slide Review Performed Reactive Lymphocytes Present Poikilocytosis Slight Anisocytosis Slight Sodium 139 (137-145) mmol/L Potassium 3.8 (3.5-5.1) mmol/L Chloride 99 (98-107) mmol/L Carbon Dioxide 27 (22-30) mmol/L Anion Gap 13 mmol/L BUN 19 (9-20) mg/dL Creatinine 0.93 (0.66-1.25) mg/dL Est GFR (CKD-EPI)AfAm >90 (>60 ml/min/1.73 sqM) Est GFR (CKD-EPI)NonAf >90 (>60 ml/min/1.73 sqM) Glucose 116 H (74-99) mg/dL Calcium 9.9 (8.4-10.2) mg/dL Urine Color Urine Appearance (Clear) Urine pH (5.0-8.0) Ur Specific [place] (1.001-1.035) Urine Protein (Negative) Urine Glucose (UA) (Negative) Urine Ketones (Negative) Urine Blood (Negative) Urine Nitrite (Negative) Urine Bilirubin (Negative) Urine Urobilinogen (<2.0) mg/dL Ur Leukocyte Esterase (Negative) Influenza Type A RNA (Not Detectd) Influenza Type B (PCR) (Not Detectd) Group A Strep Rapid (Negative) Disposition Clinical Impression: Pharyngitis Disposition: HOME SELF-CARE Condition: Good Instructions (If sedation given, give patient instructions): Upper Respiratory Infection (ED) Prescriptions: Azithromycin [Zithromax Z-pack] 0 mg PO DIRECTED #6 tab Is patient prescribed a controlled substance at d/c from ED?: No Referrals: None,Stated [Primary Care Provider] - 1-2 days Time of Disposition: 22:46
[2019-01-10 20:28] LABS: Appearance,Urine Clear (Clear); Bilirubin,Urine Negative (Negative); Blood,Urine Negative (Negative); Color,Urine Yellow; Glucose,Urine (UA) Negative (Negative); Ketones,Urine Trace (Negative); Leukocyte Esterase,Urine Negative (Negative); Nitrite,Urine Negative (Negative); Protein,Urine Negative (Negative); Specific Gravity,Urine 1.027 (1.001-1.035); Urobilinogen,Urine >12.0 mg/dL (<2.0)
[2019-01-10 20:57] LABS: African American GFR (CKD) >90 (>60 ml/min/1.73 sqM); Anion Gap 13 mmol/L; Blood Urea Nitrogen 19 mg/dL (9-20); Calcium 9.9 mg/dL (8.4-10.2); Carbon Dioxide 27 mmol/L (22-30); Chloride 99 mmol/L (98-107); Glucose 116 mg/dL (74-99); Potassium 3.8 mmol/L (3.5-5.1); Sodium 139 mmol/L (137-145)
--- NOTE | 2019-01-10 20:58 | XR ---
EXAMINATION TYPE: XR chest 2V DATE OF EXAM: 01/10/2019 COMPARISON: 12/26/2018 HISTORY: Chest pain TECHNIQUE: Frontal and lateral views of the chest are obtained. FINDINGS: Heart and mediastinum are normal. Lungs are clear. Diaphragm is normal. There is neural st imulator in the thoracic spine. IMPRESSION: Normal chest. No change.
[2019-01-10 21:06] LABS: Anisocytosis Slight; HGB 10.5 gm/dL (13.0-17.5); MCH 30.2 pg (25.0-35.0); MCV 86.5 fL (80.0-100.0); Poikilocytosis Slight; RBC 3.47 m/uL (4.30-5.90); RDW 17.1 % (11.5-15.5)
[2019-01-10 21:32] LABS: Band Neutrophils % 4 %; Eosinophils # (M) 0.02 k/uL (0-0.7); Monocytes # (M) 0.23 k/uL (0-1.0); Neutrophils % (M) 21 %; Nucleated Red Blood Cells 3 /100 WBC (0-0); Reactive Lymphocytes Present; Total Cells Counted 200; WBC 2.3 k/uL (3.8-10.6)
[2019-01-10 22:58] VITALS: BP 133/73; PULSE 77; TEMP 98.9
== END 2019-01-10 22:58 | disposition home or self-care (01) ==
LOC: EC 19:56
DX: J02.9 Acute pharyngitis, unspecified (principal); D72.819 Decreased white blood cell count, unspecified; J45.909 Unspecified asthma, uncomplicated; E11.9 Type 2 diabetes mellitus without complications; E78.5 Hyperlipidemia, unspecified; I10 Essential (primary) hypertension; I25.2 Old myocardial infarction; M19.90 Unspecified osteoarthritis, unspecified site; F41.9 Anxiety disorder, unspecified; F32.9 Major depressive disorder, single episode, unspecified; F43.10 Post-traumatic stress disorder, unspecified; F17.200 Nicotine dependence, unspecified, uncomplicated; G47.30 Sleep apnea, unspecified; Z99.89 Dependence on other enabling machines and devices; Z95.818 Presence of other cardiac implants and grafts; Z96.651 Presence of right artificial knee joint; Z95.5 Presence of coronary angioplasty implant and graft; Z82.49 Family history of ischemic heart disease and other diseases of the circulatory system; Z82.5 Family history of asthma and other chronic lower respiratory diseases; Z79.84 Long term (current) use of oral hypoglycemic drugs; Z79.51 Long term (current) use of inhaled steroids; Z79.899 Other long term (current) drug therapy; Z88.6 Allergy status to analgesic agent; Z91.048 Other nonmedicinal substance allergy status; Z91.018 Allergy to other foods
CPT/HCPCS: 36415; 71046; 80048; 81003; 85025; 87070; 87430; 87502; 96360; 96361; 99285

== ENCOUNTER 2019-01-14 21:01 | Observation (INO) | payer MEDICARE, OTHER ==
--- NOTE | 2019-01-14 21:35 | ED ---
Neuro HPI - General Chief Complaint: Neuro Symptoms/Deficit Stated Complaint: Left sided numbness Time Seen by Provider: 01/14/19 21:18 Source: patient Mode of arrival: ambulatory Limitations: no limitations - History of Present Illness Is the patient presenting with stroke symptoms?: No Initial Comments: This 48-year-old white male presents complaining of developing some numbness to his left index and middle finger yesterday. He states that today he had numbness to his entire left arm. He is also complaining of numbness to his right arm which started today. She denies any previous similar incidents. He does relate a history of previous neck problems. He has had herniated discs among other diagnoses to his neck. He apparently has a nerve stimulator implanted. He has had some slight increase in his neck pain recently as well. He denies any facial numbness. There's been no weakness of extremities. He's been able to ambulate without any problems. There is no chest pain or shortness of breath. No other complaints or modifying factors. He denies having any previous hematologic problems that he is aware of. He's never had any problems with known anemia, low blood counts, leukemia, or any other blood disorders. He denies drinking any alcohol. He states that he is not aware of taking any immunosuppressive type of medications. He is here quite frequently for a variety of different complaints but he states that most of the time but it is related to chest pain. - Related Data Home Medications: Home Medications Medication Instructions Recorded Confirmed metFORMIN HCL [Glucophage] 500 mg PO DAILY 06/10/14 01/14/19 Montelukast Sodium [Singulair] 10 mg PO HS 06/01/16 01/14/19 Albuterol Inhaler [Ventolin Hfa 2 puff INHALATION RT-Q6H PRN 10/15/17 01/14/19 Inhaler] Atorvastatin [Lipitor] 80 mg PO DAILY 10/15/17 01/14/19 Beclomethasone Dipropionate [Qvar 2 puff INHALATION RT-BID 10/15/17 01/14/19 80 mcg] Divalproex Sodium 500 mg PO TID 10/15/17 01/14/19 Fenofibrate Nanocrystallized 145 mg PO DAILY 10/15/17 01/14/19 [Fenofibrate] Gabapentin [Neurontin] 300 mg PO TID 10/15/17 01/14/19 Metoprolol Succinate (ER) [Toprol 25 mg PO HS 10/15/17 01/14/19 XL] Venlafaxine HCl [Effexor XR] 150 mg PO HS 10/15/17 01/14/19 traZODone HCL 150 mg PO HS 10/15/17 01/14/19 Dicyclomine [Bentyl] 20 mg PO TID 01/10/19 01/14/19 Nitroglycerin Sl Tabs [Nitrostat] 0.4 mg SUBLINGUAL Q5M PRN 01/10/19 01/14/19 Azithromycin [Zithromax Z-pack] See Taper PO DIRECTED 01/14/19 01/14/19 Allergies/Adverse Reactions: Allergies Allergy/AdvReac Type Severity Reaction Status Date / Time naproxen [From Naprosyn] Allergy Unknown Rash/Hives Verified 01/14/19 21:25 adhesive tape Allergy Rash/Hives Verified 01/14/19 21:25 ibuprofen Allergy Itching Verified 01/14/19 21:25 mold Allergy Unknown Verified 01/14/19 21:25 carrot AdvReac Dyspnea Verified 01/14/19 21:25 chocolate flavor AdvReac Dyspnea Verified 01/14/19 21:25 grass pollen-perennial rye, AdvReac Dyspnea Verified 01/14/19 21:25 standar Review of Systems ROS Statement: Those systems with pertinent positive or pertinent negative responses have been documented in the HPI. ROS Other: All systems not noted in ROS Statement are negative. General Exam - General Exam Comments Initial Comments: GENERAL: The patient is well nourished and well hydrated. VITAL SIGNS: Heart rate, blood pressure, respiratory rate reviewed as recorded in nurse's notes. EYES: Pupils are round and reactive. Extraocular movements are intact. No conjunctival / lid redness or swelling. ENT: No external evidence of injury, swelling, or ecchymosis. Airway is patent. Throat is clear. NECK: There is slight tenderness noted to his paracervical musculature bilaterally worse on the left. No swelling or evidence of injury. No subcutaneous emphysema. Trachea is midline. No thyroid mass. HEART: Regular rate and rhythm. Good peripheral pulses. LUNGS/CHEST: Breath sounds clear and equal bilaterally. No rales, rhonchi, or wheezes. No ecchymosis, subcutaneous emphysema, or tenderness. ABDOMEN: Abdomen soft without tenderness. No palpable masses or organomegaly. No peritoneal signs. No abdominal wall swelling or ecchymosis. EXTREMITIES: No extremity tenderness. Normal muscle tone and function. No thoracolumbar tenderness. NEUROLOGIC: He has subjective numbness noted to bilateral upper extremities. Cranial nerve exam reveals face is symmetrical, tongue is midline, speech is clear. SKIN: No abrasions or ecchymosis is noted. No induration or masses noted. PSYCHIATRIC: Alert and oriented. Appropriate behavior and judgment. Limitations: no limitations Stroke MDM - Lab Data Result diagrams: 01/14/19 21:55 01/14/19 21:55 Lab Results 01/14/19 01/14/19 Range/Units 21:55 21:55 WBC 1.9 L (3.8-10.6) k/uL RBC 3.32 L (4.30-5.90) m/uL Hgb 10.0 L (13.0-17.5) gm/dL Hct 28.7 L (39.0-53.0) % MCV 86.6 (80.0-100.0) fL MCH 30.1 (25.0-35.0) pg MCHC 34.7 (31.0-37.0) g/dL RDW 16.4 H (11.5-15.5) % Plt Count (150-450) k/uL Neutrophils % (Manual) 37 % Band Neutrophils % 3 % Lymphocytes % (Manual) 44 % Monocytes % (Manual) 10 % Eosinophils % (Manual) 1 % Metamyelocytes % 1 % Myelocytes % 5 % Neutrophils # (Manual) 0.70 L (1.3-7.7) k/uL Lymphocytes # (Manual) 0.84 L (1.0-4.8) k/uL Monocytes # (Manual) 0.19 (0-1.0) k/uL Eosinophils # (Manual) 0.02 (0-0.7) k/uL Metamyelocytes # (Man) 0.02 H (0) k/uL Myelocytes # (Manual) 0.10 H (0) k/uL Nucleated RBCs 4 H (0-0) /100 WBC Manual Slide Review Performed Polychromasia Present Poikilocytosis Slight Poikilocytosis (manual Present Anisocytosis Slight Sodium 141 (137-145) mmol/L Potassium 4.1 (3.5-5.1) mmol/L Chloride 105 (98-107) mmol/L Carbon Dioxide 27 (22-30) mmol/L Anion Gap 9 mmol/L BUN 16 (9-20) mg/dL Creatinine 0.90 (0.66-1.25) mg/dL Est GFR (CKD-EPI)AfAm >90 (>60 ml/min/1.73 sqM) Est GFR (CKD-EPI)NonAf >90 (>60 ml/min/1.73 sqM) Glucose 163 H (74-99) mg/dL Calcium 9.1 (8.4-10.2) mg/dL Phosphorus 2.7 (2.5-4.5) mg/dL Magnesium 2.4 H (1.6-2.3) mg/dL Total Bilirubin 1.0 (0.2-1.3) mg/dL AST 22 (17-59) U/L ALT 31 (21-72) U/L Alkaline Phosphatase 52 (38-126) U/L Total Protein 7.1 (6.3-8.2) g/dL Albumin 4.2 (3.5-5.0) g/dL - Medical Decision Making The patient was seen and examined. All diagnostics are reviewed. It appears that his white blood cell count is even lower at 1.9 and his hemoglobin is down to 10. His platelets could not be measured with the standard type of measurement and they request a redraw with a different type of tube. They do feel as though the platelet count is low but do not give me a definitive number. He certainly does have pancytopenia and this is trended. Appears that he's been dropping with his blood counts fairly regularly over the past several months. His hemoglobin was approximately 14 several months ago. The exact causative agent of pancytopenia is not definitively determined. His computed tomography scan of his brain does not show any acute process. Overall, it is felt as though the patient would benefit from admission to the hospital with neurology and hematology to consult. The patient is agreeable with this plan. Internal medicine will be contacted in the near future. Past Medical History Past Medical History: Asthma, Chest Pain / Angina, Diabetes Mellitus, GERD/Reflux, GI Bleed, Hyperlipidemia, Hypertension, Myocardial Infarction ([place]), Osteoarthritis ([place]), Sleep Apnea/CPAP/BIPAP Additional Past Medical History / Comment(s): chronic back and neck pain(has lumbar and cervial nuero stimulators), herniated discs in the neck and the back. mood disturbance.occ ringing in ears, " in [address] me he heard a soft heart murmur', uses cpap machine Last Myocardial Infarction Date:: 2004 History of Any Multi-Drug Resistant Organisms: None Reported Past Surgical History: Heart Catheterization, Hernia Repair, Joint Replacement Additional Past Surgical History / Comment(s): rt knee arthroscopy x3, lt knee arthroscopy last date 2012,total rt knee replacement and a revision sx cardiac stent x1 2004, stent placed for kidney stone 07/04/2016. Kidney stent has been removed. COLONOSCOPY. neuro stimulator implant cervial and recent another one in lumbar area pt stated he still has yue in place from procedure. Past Anesthesia/Blood Transfusion Reactions: No Reported Reaction Date of Last Stent Placement:: 2004 Past Psychological History: Anxiety, Bipolar, Depression, PTSD Smoking Status: Current every day smoker Past Alcohol Use History: Occasional Past Drug Use History: None Reported - Past Family History Father Family Medical History: Congestive Heart Failure ([place]), Deep Vein Thrombosis ([place]), Myocardial Infarction ([place]), Pulmonary Embolus Additional Family Medical History / Comment(s): [place] at age 38. "hole in colon" Mother Family Medical History: Cancer, COPD, Diabetes Mellitus, Hyperlipidemia Additional Family Medical History / Comment(s): breast and lung cancer Sister(s) Family Medical History: Diabetes Mellitus Additional Family Medical History / Comment(s): bi-polar, anxiety. hysterectomy Brother(s) History Unknown: Yes Course Vital Signs 01/14/19 01/14/19 01/14/19 21:11 22:08 23:09 Temperature 98.9 F Pulse Rate 91 82 106 H Respiratory 18 18 18 Rate Blood Pressure 132/78 139/71 134/69 O2 Sat by Pulse 97 95 95 Oximetry 01/14/19 23:54 Temperature 98.8 F Pulse Rate 77 Respiratory 16 Rate Blood Pressure 126/88 O2 Sat by Pulse 98 Oximetry Disposition Clinical Impression: Left upper extremity numbness, Right upper extremity numbness, Pancytopenia Disposition: ADMITTED IP TO THIS HOSP Condition: Fair Is patient prescribed a controlled substance at d/c from ED?: No Time of Disposition: 00:39 Decision Date: 01/15/19 Decision Time: 00:39
[2019-01-14 22:03] LABS: Anisocytosis Slight; HCT 28.7 % (39.0-53.0); MCH 30.1 pg (25.0-35.0); MCHC 34.7 g/dL (31.0-37.0); MCV 86.6 fL (80.0-100.0); Mean Platelet Volume 9.6; Poikilocytosis Slight; RBC 3.32 m/uL (4.30-5.90); RDW 16.4 % (11.5-15.5)
--- NOTE | 2019-01-14 22:06 | CT ---
EXAMINATION: CT brain wo con DATE AND TIME: 01/14/2019 9:53 PM CLINICAL INDICATION: PHH; Neuro Deficits TECHNIQUE: Standard departmental protocol.; 1086.4; COMPARISON: 01/29/2018 FINDINGS: The calvarium is intact. There is no intracranial hemorrhage. There is no intracranial mass or mass effect. No definite new intra-axial or extra-axial attenuation defect. The paranasal sinuses, middle ear cavities, and mastoid sinus air cells are clear. The orbits are unremarkable. IMPRESSION: NO ACUTE PROCESS.
[2019-01-14 22:11] LABS: ALT 31 U/L (21-72); AST 22 U/L (17-59); African American GFR (CKD) >90 (>60 ml/min/1.73 sqM); Albumin 4.2 g/dL (3.5-5.0); Alkaline Phosphatase 52 U/L (38-126); Anion Gap 9 mmol/L; Blood Urea Nitrogen 16 mg/dL (9-20); Calcium 9.1 mg/dL (8.4-10.2); Carbon Dioxide 27 mmol/L (22-30); Chloride 105 mmol/L (98-107); Glucose 163 mg/dL (74-99); Magnesium 2.4 mg/dL (1.6-2.3); Non-African American GFR(CKD) >90 (>60 ml/min/1.73 sqM); Phosphorus 2.7 mg/dL (2.5-4.5); Potassium 4.1 mmol/L (3.5-5.1); Sodium 141 mmol/L (137-145); Total Protein 7.1 g/dL (6.3-8.2)
[2019-01-14 22:55] LABS: Band Neutrophils % 3 %; Eosinophils # (M) 0.02 k/uL (0-0.7); Lymphocytes # (M) 0.84 k/uL (1.0-4.8); Metamyelocytes # (M) 0.02 k/uL (0); Metamyelocytes % 1 %; Monocytes # (M) 0.19 k/uL (0-1.0); Myelocytes % 5 %; Neutrophils % (M) 37 %; Nucleated Red Blood Cells 4 /100 WBC (0-0); Total Cells Counted 200; WBC 1.9 k/uL (3.8-10.6)
[2019-01-14 22:56] LABS: Polychromasia Present
[2019-01-14 22:57] LABS: Poikilocytosis (M) Present
[2019-01-15 00:01] LABS: Mean Platelet Volume 18.2
[2019-01-15] MEDS ORDERED: ACETAMINOPHEN TAB 325 MG TAB PO PRN (00:40)
[2019-01-15] MEDS ORDERED: ONDANSETRON 4 MG/2 ML VIAL IVP PRN (00:40)
[2019-01-15] MEDS ORDERED: NITROGLYCERIN SL TABS 0.4 MG TAB SUBLINGUAL PRN (00:43)
[2019-01-15 01:24] VITALS: BMI 29.9
[2019-01-15 01:25] LABS: Platelet Count 45 k/uL (150-450)
[2019-01-15] MEDS ORDERED: ALBUTEROL NEBULIZED 2.5 MG/3 ML INHALATION PRN (02:00)
[2019-01-15 07:56] LABS: Glucose,Whole Blood 108 mg/dL (75-99)
[2019-01-15] MEDS ORDERED: FLUTICASONE 110 MCG INHALER INHALATION SCH (08:00)
[2019-01-15] MEDS: DICYCLOMINE 20 MG TAB PO SCH ×2 (08:02→16:58)
[2019-01-15] MEDS: GABAPENTIN 300 MG CAP PO SCH ×2 (08:02→16:58)
[2019-01-15] MEDS: DIVALPROEX 500 MG TABLET.DR PO SCH ×2 (08:02→16:58)
[2019-01-15] MEDS ORDERED: AZITHROMYCIN 250 MG TAB PO SCH (09:00)
[2019-01-15] MEDS ORDERED: metFORMIN 500 MG TAB PO SCH (09:00)
[2019-01-15] MEDS ORDERED: PANTOPRAZOLE 40 MG/10 ML VIAL IV SCH (09:00)
[2019-01-15] MEDS ORDERED: FENOFIBRATE 160 MG TAB PO SCH (09:00)
[2019-01-15] MEDS ORDERED: ATORVASTATIN 80 MG TAB PO SCH (09:00)
--- NOTE | 2019-01-15 10:11 | P.CNNES ---
History of Present Illness Consult date: 01/15/19 Requesting physician: Jamil Mckeon Reason for Consult: Paresthesia Chief complaint: Arms tingling History of Present Illness: This is a 48 RH male patient of Dr. oLpes with a h/o cervical pain s/p nerve stimulator implantation. He had EMG/NCS of [facility] 3 years ago and was reportedly told he had pinched nerves in his low-back. He presented to the hospital yesterday c/o numbness to his left index and middle finger since the day prior. He also c/o numbness to his right arm. He does also have a h/o bilateral CTS for which he wears wrist braces at night. His spine was previously evaluated and he was told his problem was not "bad enough to need surgery." Denies Lhermitte's or classic cervical radicular symptoms. No bowel/bladder incontinence or ataxia. Neurologically, patient denies decreased level or loss of consciousness, changes in vision, diplopia, amaurosis, facial numbness or droop, vertigo, dysarthria, dysphagia, aphasia, other focal numbness/weakness or tremors. Review of Systems I have performed a 14-point organ ROS with patient; pertinents are as per HPI. Past Medical History Past Medical History: Asthma, Chest Pain / Angina, Diabetes Mellitus, GERD/Reflux, GI Bleed, Hyperlipidemia, Hypertension, Myocardial Infarction ([place]), Osteoarthritis (OA), Sleep Apnea/CPAP/BIPAP Additional Past Medical History / Comment(s): chronic back and neck pain(has lumbar and cervial nuero stimulators), herniated discs in the neck and the back. mood disturbance.occ ringing in ears, " in [address] me he heard a soft heart murmur', uses cpap machine, neuropathy in feet Last Myocardial Infarction Date:: 2004 History of Any Multi-Drug Resistant Organisms: None Reported Past Surgical History: Heart Catheterization With Stent, Hernia Repair, Joint Replacement Additional Past Surgical History / Comment(s): rt knee arthroscopy x3, lt knee arthroscopy last date 2012,total rt knee replacement and a revision sx cardiac stent x1 2004, stent placed for kidney stone 07/04/2016. Kidney stent has been removed. COLONOSCOPY. neuro stimulator implant cervial and recent another one in lumbar area Past Anesthesia/Blood Transfusion Reactions: No Reported Reaction Date of Last Stent Placement:: 2004 Past Psychological History: Anxiety, Bipolar, Depression, PTSD Additional Psychological History / Comment(s): Lives with his , daughter, sister/brother in law, 1 cat, 1 dog. pets: 1 cat, 1 dog. Was in service for 4 years in the [place] and traveled through the [place] and in [place] Smoking Status: Current every day smoker Past Alcohol Use History: Occasional Additional Past Alcohol Use History / Comment(s): STARTED SMOKING AT AGE 23(1994) Past Drug Use History: None Reported - Past Family History Father Family Medical History: Congestive Heart Failure (CHF), Deep Vein Thrombosis (DVT), Myocardial Infarction ([place]), Pulmonary Embolus Additional Family Medical History / Comment(s): [place] at age 38. "hole in colon" Mother Family Medical History: Cancer, COPD, Diabetes Mellitus, Hyperlipidemia Additional Family Medical History / Comment(s): breast and lung cancer Sister(s) Family Medical History: Diabetes Mellitus Additional Family Medical History / Comment(s): bi-polar, anxiety. hysterectomy Brother(s) History Unknown: Yes Medications and Allergies Home Medications Medication Instructions Recorded Confirmed Type metFORMIN HCL [Glucophage] 500 mg PO DAILY 06/10/14 01/14/19 History Montelukast Sodium [Singulair] 10 mg PO HS 06/01/16 01/14/19 History Albuterol Inhaler [Ventolin Hfa 2 puff INHALATION RT-Q6H PRN 10/15/17 01/14/19 History Inhaler] Atorvastatin [Lipitor] 80 mg PO DAILY 10/15/17 01/14/19 History Beclomethasone Dipropionate [Qvar 2 puff INHALATION RT-BID 10/15/17 01/14/19 History 80 mcg] Divalproex Sodium 500 mg PO TID 10/15/17 01/14/19 History Fenofibrate Nanocrystallized 145 mg PO DAILY 10/15/17 01/14/19 History [Fenofibrate] Gabapentin [Neurontin] 300 mg PO TID 10/15/17 01/14/19 History Metoprolol Succinate (ER) [Toprol 25 mg PO HS 10/15/17 01/14/19 History XL] Venlafaxine HCl [Effexor XR] 150 mg PO HS 10/15/17 01/14/19 History traZODone HCL 150 mg PO HS 10/15/17 01/14/19 History Dicyclomine [Bentyl] 20 mg PO TID 01/10/19 01/14/19 History Nitroglycerin Sl Tabs [Nitrostat] 0.4 mg SUBLINGUAL Q5M PRN 01/10/19 01/14/19 History Azithromycin [Zithromax Z-pack] See Taper PO DIRECTED 01/14/19 01/14/19 History Allergies Allergy/AdvReac Type Severity Reaction Status Date / Time naproxen [From Naprosyn] Allergy Unknown Rash/Hives Verified 01/14/19 21:25 adhesive tape Allergy Rash/Hives Verified 01/14/19 21:25 ibuprofen Allergy Itching Verified 01/14/19 21:25 mold Allergy Unknown Verified 01/14/19 21:25 carrot AdvReac Dyspnea Verified 01/14/19 21:25 chocolate flavor AdvReac Dyspnea Verified 01/14/19 21:25 grass pollen-perennial rye, AdvReac Dyspnea Verified 01/14/19 21:25 standar Physical Examination - Vital Signs Vital Signs: Vital Signs Temp Pulse Pulse Resp BP BP Pulse Ox 01/15/19 05:00 98.2 F 85 18 122/66 98 01/15/19 02:15 80 18 01/15/19 01:18 98.4 F 80 18 120/59 100 01/15/19 01:00 98.9 F 74 16 116/91 97 01/14/19 23:54 98.8 F 77 16 126/88 98 01/14/19 23:09 106 H 18 134/69 95 01/14/19 22:08 82 18 139/71 95 01/14/19 21:11 98.9 F 91 18 132/78 97 Intake and Output 01/14/19 01/15/19 01/15/19 22:59 06:59 14:59 Intake Total 590 Output Total 400 Balance 190 Intake: Oral 590 Output: Urine 400 Other: Voiding Method Urinal Urinal # Voids 2 Weight 91.807 kg Gen NAD Pleasant and cooperative HEENT NCAT Sclera without icterus O/P clear Neck Supple No carotid bruit Cor RRR no m/r/g Lungs CTAB Abd Soft NTND +BS Ext Warm to touch No edema Neuro MS A+Ox4 Normal fluency Able to follow all commands CN PERRL VFF no APD EOMI no nystagmus or KEMAL No facial asymmetry Masseter's symmetric Hearing intact to normal voice bilaterally Speech not dysarthric Equal elevation of palate Tongue midline Sym shrug and SCM bilaterally Motor Normal bulk/tone No pronator drift No tremors Strength 5/5 sym throughout Sens Intact to LT x4 No neglect or extinction +Tinel's in both mid-wrists no Lhermitte's Coord No dysmetria on FTN bilaterally DTRs 2+/4 sym throughout Toes downgoing bilaterally No clonus at achilles Gait Deferred Results - Laboratory Findings CBC and BMP: 01/14/19 23:54 01/14/19 21:55 Abnormal Lab Findings: Abnormal Labs 01/14/19 01/14/19 01/14/19 21:55 21:55 23:54 WBC 1.9 L RBC 3.32 L Hgb 10.0 L Hct 28.7 L RDW 16.4 H Plt Count 45 L D Neutrophils # (Manual) 0.70 L Lymphocytes # (Manual) 0.84 L Metamyelocytes # (Man) 0.02 H Myelocytes # (Manual) 0.10 H Nucleated RBCs 4 H Glucose 163 H POC Glucose (mg/dL) Magnesium 2.4 H 01/15/19 07:54 WBC RBC Hgb Hct RDW Plt Count Neutrophils # (Manual) Lymphocytes # (Manual) Metamyelocytes # (Man) Myelocytes # (Manual) Nucleated RBCs Glucose POC Glucose (mg/dL) 108 H Magnesium - Diagnostic Findings Additional findings: CT Head wo cont 01/15/19. No ICH or CVA. Nil acute. I have reviewed neuroimages myself. Assessment and Plan Assessment: 48 RH female with BUE paresthesias, r/o entrapment neuropathy and/or cervical radiculopathy Plan: -Cannot undergo MRI due to nerve stimulator -He is already scheduled for EMG/NCS with Dr. Lopes later today, which I think will be an important diagnostic next step -d/w patient in detail. He is agreeable with the above plan -He is fine to be discharged from an acute neuro standpoint. No further inpatient neuro recs at this time. Will revisit patient prn. Please call with new ?. Thank you for this consultation. Time with Patient: Greater than 30 (Time spent in direct patient care, greater than 50% of which was spent in [id number] counseling and coordination of care: 70 minutes)
[2019-01-15 11:26] LABS: Glucose,Whole Blood 86 mg/dL (75-99)
--- NOTE | 2019-01-15 11:54 | P.CONS ---
History of Present Illness - Reason for Consult Consult date: 01/15/19 Pancytopenia Requesting physician: Jamil Mckeon - Chief Complaint Left-sided Paresthesia - History of Present Illness We have been asked to see pt for pancytopenia. He is admitted with neurological symptoms, left sided parathesia. Imaging of the head was non-diagnostic for CVA. He is on multiple medications for Mental Health conditions and has not had follow up for at least 2 years. Pt has no knowledge of a blood count problem, no history of anemia. Denied recent illness, fevers, adenopathy, history of cancer, bleeding, recurrent infections, acute changes in his health. He has DM II and has had recurrent ER visits for cardiac c/o. Review of Systems 14 point review of systems is negative except as stated in HPI Past Medical History Past Medical History: Asthma, Chest Pain / Angina, Diabetes Mellitus, GERD/Reflux, GI Bleed, Hyperlipidemia, Hypertension, Myocardial Infarction ([place]), Osteoarthritis (OA), Sleep Apnea/CPAP/BIPAP Additional Past Medical History / Comment(s): chronic back and neck pain(has lumbar and cervial nuero stimulators), herniated discs in the neck and the back. mood disturbance.occ ringing in ears, " in [address] me he heard a soft heart murmur', uses cpap machine, neuropathy in feet Last Myocardial Infarction Date:: 2004 History of Any Multi-Drug Resistant Organisms: None Reported Past Surgical History: Heart Catheterization With Stent, Hernia Repair, Joint Replacement Additional Past Surgical History / Comment(s): rt knee arthroscopy x3, lt knee arthroscopy last date 2012,total rt knee replacement and a revision sx cardiac stent x1 2004, stent placed for kidney stone 07/04/2016. Kidney stent has been removed. COLONOSCOPY. neuro stimulator implant cervial and recent another one in lumbar area Past Anesthesia/Blood Transfusion Reactions: No Reported Reaction Date of Last Stent Placement:: 2004 Past Psychological History: Anxiety, Bipolar, Depression, PTSD Additional Psychological History / Comment(s): Lives with his , daughter, sister/brother in law, 1 cat, 1 dog. pets: 1 cat, 1 dog. Was in service for 4 years in the [place] and traveled through the [place] in [place] Smoking Status: Current every day smoker Past Alcohol Use History: Occasional Additional Past Alcohol Use History / Comment(s): STARTED SMOKING AT AGE 23(1994) Past Drug Use History: None Reported - Past Family History Father Family Medical History: Congestive Heart Failure (CHF), Deep Vein Thrombosis (DVT), Myocardial Infarction ([place]), Pulmonary Embolus Additional Family Medical History / Comment(s): [place] at age 38. "hole in colon" Mother Family Medical History: Cancer, COPD, Diabetes Mellitus, Hyperlipidemia Additional Family Medical History / Comment(s): breast and lung cancer Sister(s) Family Medical History: Diabetes Mellitus Additional Family Medical History / Comment(s): bi-polar, anxiety. hysterectomy Brother(s) History Unknown: Yes Medications and Allergies Home Medications Medication Instructions Recorded Confirmed Type metFORMIN HCL [Glucophage] 500 mg PO DAILY 06/10/14 01/14/19 History Montelukast Sodium [Singulair] 10 mg PO HS 06/01/16 01/14/19 History Albuterol Inhaler [Ventolin Hfa 2 puff INHALATION RT-Q6H PRN 10/15/17 01/14/19 History Inhaler] Atorvastatin [Lipitor] 80 mg PO DAILY 10/15/17 01/14/19 History Beclomethasone Dipropionate [Qvar 2 puff INHALATION RT-BID 10/15/17 01/14/19 History 80 mcg] Divalproex Sodium 500 mg PO TID 10/15/17 01/14/19 History Fenofibrate Nanocrystallized 145 mg PO DAILY 10/15/17 01/14/19 History [Fenofibrate] Gabapentin [Neurontin] 300 mg PO TID 10/15/17 01/14/19 History Metoprolol Succinate (ER) [Toprol 25 mg PO HS 10/15/17 01/14/19 History XL] Venlafaxine HCl [Effexor XR] 150 mg PO HS 10/15/17 01/14/19 History traZODone HCL 150 mg PO HS 10/15/17 01/14/19 History Dicyclomine [Bentyl] 20 mg PO TID 01/10/19 01/14/19 History Nitroglycerin Sl Tabs [Nitrostat] 0.4 mg SUBLINGUAL Q5M PRN 01/10/19 01/14/19 History Azithromycin [Zithromax Z-pack] See Taper PO DIRECTED 08/20/19 08/20/19 History Allergies Allergy/AdvReac Type Severity Reaction Status Date / Time naproxen [From Naprosyn] Allergy Unknown Rash/Hives Verified 01/14/19 21:25 adhesive tape Allergy Rash/Hives Verified 01/14/19 21:25 ibuprofen Allergy Itching Verified 01/14/19 21:25 mold Allergy Unknown Verified 01/14/19 21:25 carrot AdvReac Dyspnea Verified 01/14/19 21:25 chocolate flavor AdvReac Dyspnea Verified 01/14/19 21:25 grass pollen-perennial rye, AdvReac Dyspnea Verified 01/14/19 21:25 standar Physical Exam Vitals: Vital Signs Temp Pulse Pulse Resp BP BP Pulse Ox 01/15/19 05:00 98.2 F 85 18 122/66 98 01/15/19 02:15 80 18 01/15/19 01:18 98.4 F 80 18 120/59 100 01/15/19 01:00 98.9 F 74 16 116/91 97 01/14/19 23:54 98.8 F 77 16 126/88 98 01/14/19 23:09 106 H 18 134/69 95 01/14/19 22:08 82 18 139/71 95 01/14/19 21:11 98.9 F 91 18 132/78 97 Intake and Output 01/14/19 01/15/19 01/15/19 22:59 06:59 14:59 Intake Total 590 Output Total 400 Balance 190 Intake: Oral 590 Output: Urine 400 Other: Voiding Method Urinal Urinal # Voids 2 Weight 91.807 kg - Constitutional General appearance: cooperative, no acute distress, obese - EENT Eyes: anicteric sclerae, EOMI ENT: hearing grossly normal, normal oropharynx - Neck Neck: no lymphadenopathy - Respiratory Respiratory: bilateral: CTA - Cardiovascular Heart sounds: normal: S1, S2 Abnormal Heart Sounds: no systolic murmur, no diastolic murmur, no rub, no S3 Gallop, no S4 Gallop, no click, no other leg Peripheral Edema: bilateral: None - Gastrointestinal General gastrointestinal: no absent bowel sounds, no decreased bowel sounds, no distended, no hepatomegaly, no hyperactive bowel sounds, normal bowel sounds, no organomegaly, no rigid, no scaphoid, soft, no splenomegaly, no tenderness, no umbilical hernia, no ventral hernia - Integumentary Integumentary: normal turgor - Neurologic Neurologic: CNII-XII intact - Musculoskeletal Musculoskeletal: strength equal bilaterally - Psychiatric Psychiatric: A&O x's 3, appropriate affect, intact judgment & insight Results CBC & Chem 7: 01/14/19 23:54 01/14/19 21:55 Labs: Abnormal Lab Results - Last 24 Hours (Table) 01/14/19 01/14/19 01/14/19 Range/Units 21:55 21:55 23:54 WBC 1.9 L (3.8-10.6) k/uL RBC 3.32 L (4.30-5.90) m/uL Hgb 10.0 L (13.0-17.5) gm/dL Hct 28.7 L (39.0-53.0) % RDW 16.4 H (11.5-15.5) % Plt Count 45 L D (150-450) k/uL Neutrophils # (Manual) 0.70 L (1.3-7.7) k/uL Lymphocytes # (Manual) 0.84 L (1.0-4.8) k/uL Metamyelocytes # (Man) 0.02 H (0) k/uL Myelocytes # (Manual) 0.10 H (0) k/uL Nucleated RBCs 4 H (0-0) /100 WBC Glucose 163 H (74-99) mg/dL POC Glucose (mg/dL) (75-99) mg/dL Magnesium 2.4 H (1.6-2.3) mg/dL 01/15/19 Range/Units 07:54 WBC (3.8-10.6) k/uL RBC (4.30-5.90) m/uL Hgb (13.0-17.5) gm/dL Hct (39.0-53.0) % RDW (11.5-15.5) % Plt Count (150-450) k/uL Neutrophils # (Manual) (1.3-7.7) k/uL Lymphocytes # (Manual) (1.0-4.8) k/uL Metamyelocytes # (Man) (0) k/uL Myelocytes # (Manual) (0) k/uL Nucleated RBCs (0-0) /100 WBC Glucose (74-99) mg/dL POC Glucose (mg/dL) 108 H (75-99) mg/dL Magnesium (1.6-2.3) mg/dL CT scan - pelvis: report reviewed Assessment and Plan (1) Pancytopenia Narrative/Plan: Relatively new onset. Correlation suspicion with changes in mood stabilizing drugs. Psychiatry has been consulted to review pt meds and see if any of the marrow toxic agents can be discontinued. Pancytopenia work up has been ordered. Transfuse PRBCs for Hgb < 7 Platelets 45,000-no ASA, NSAIDs, anticoagulation. DVT prophylaxis with SCD s/early ambulation if tolerated. WBC low, ANC 700, no intervention planned at this time. Current Visit: Yes Status: Acute Priority: High Code(s): D61.818 - OTHER PANCYTOPENIA SNOMED Code(s): 119854567 Plan: Doctor attests: I performed a history and physical examination of this patient, developed impression and plan of care. Discussed with dictator. I agree with dictators note, documented as a scribe.
[2019-01-15 12:00] VITALS: BP 115/70; PULSE 78; RESP 16; TEMP 98.1
--- NOTE | 2019-01-15 12:52 | P.DS ---
Providers Date of admission: 01/15/19 00:40 Attending physician: Luis Louis MD Consults: 01/15/19 00:41 Consult Physician Routine Consulting Provider: Yoandy Martinez Consult Reason/Comments: paresthesias Do you want consulting provider notified?: Yes 01/15/19 00:42 Consult Physician Routine Consulting Provider: Guille Rojas Consult Reason/Comments: pancytopenia Do you want consulting provider notified?: Yes 01/15/19 09:54 Consult Physician Routine Consulting Provider: Alden Huitron Consult Reason/Comments: Please eval meds,can depakote be DC'd (heme toxic),No f/u in 2 years. Do you want consulting provider notified?: Already Contacted Primary care physician: Stated None Hospital Course: Please refer to HPI Patient Condition at Discharge: Fair Plan - Discharge Summary Discharge Rx Participant: No New Discharge Prescriptions: New Folic Acid-Vit B Complex-Vit C [Nephrocaps] 1 mg PO DAILY #30 capsule Continue metFORMIN HCL [Glucophage] 500 mg PO DAILY Montelukast Sodium [Singulair] 10 mg PO HS Albuterol Inhaler [Ventolin Hfa Inhaler] 2 puff INHALATION RT-Q6H PRN PRN Reason: Shortness Of Breath Metoprolol Succinate (ER) [Toprol XL] 25 mg PO HS Atorvastatin [Lipitor] 80 mg PO DAILY traZODone HCL 150 mg PO HS Venlafaxine HCl [Effexor XR] 150 mg PO HS Gabapentin [Neurontin] 300 mg PO TID Fenofibrate Nanocrystallized [Fenofibrate] 145 mg PO DAILY Divalproex Sodium 500 mg PO TID Beclomethasone Dipropionate [Qvar 80 mcg] 2 puff INHALATION RT-BID Nitroglycerin Sl Tabs [Nitrostat] 0.4 mg SUBLINGUAL Q5M PRN PRN Reason: Chest Pain Dicyclomine [Bentyl] 20 mg PO TID Discontinued Azithromycin [Zithromax Z-pack] See Taper PO DIRECTED Discharge Medication List metFORMIN HCL [Glucophage] 500 mg PO DAILY 06/10/14 [History] Montelukast Sodium [Singulair] 10 mg PO HS 06/01/16 [History] Albuterol Inhaler [Ventolin Hfa Inhaler] 2 puff INHALATION RT-Q6H PRN 10/15/17 [History] Atorvastatin [Lipitor] 80 mg PO DAILY 10/15/17 [History] Beclomethasone Dipropionate [Qvar 80 mcg] 2 puff INHALATION RT-BID 10/15/17 [History] Divalproex Sodium 500 mg PO TID 10/15/17 [History] Fenofibrate Nanocrystallized [Fenofibrate] 145 mg PO DAILY 10/15/17 [History] Gabapentin [Neurontin] 300 mg PO TID 10/15/17 [History] Metoprolol Succinate (ER) [Toprol XL] 25 mg PO HS 10/15/17 [History] Venlafaxine HCl [Effexor XR] 150 mg PO HS 10/15/17 [History] traZODone HCL 150 mg PO HS 10/15/17 [History] Dicyclomine [Bentyl] 20 mg PO TID 01/10/19 [History] Nitroglycerin Sl Tabs [Nitrostat] 0.4 mg SUBLINGUAL Q5M PRN 01/10/19 [History] Folic Acid-Vit B Complex-Vit C [Nephrocaps] 1 mg PO DAILY #30 capsule 01/15/19 [Rx] Follow up Appointment(s)/Referral(s): Guille Rojas MD [STAFF PHYSICIAN] - 02/12/19 10:45 am Mine Walsh MD [REFERRING] - 01/22/19 1:40 pm Patient Instructions/Handouts: Folic Acid (By mouth), Paresthesia (GEN), Pancytopenia (DC) Discharge Disposition: HOME SELF-CARE
--- NOTE | 2019-01-15 12:52 | P.HPIM ---
History of Present Illness 48-year-old pleasant gentleman came in with compensative tingling and numbness in all the tips of the fingers in the left hand to me although he complained about numbness in the left index and middle finger to the neurologist. Although patient appears to have some peripheral neuropathy at neuropathy related to his cervical spine for which she follows up with neurology as an outpatient patient does not appear to have several vascular accident clinically neurology validate the patient cleared him for discharge. Patient appears to have pancytopenia patient does use valproic acid. RBC folate level was obtained from B12 levels will also be obtained. Further workup for his pancytopenia can be done as an outpatient although valproic acid inhibits absorption of folic acid because of that reason I'll discharge patient on Folic acid supplementation. Patient does have diabetes mellitus may have mostly diabetic peripheral neuropathy does have history of chronic portal syndrome as well although his symptoms are more consistent with diabetic peripheral neuropathy. Patient does have history of coronary artery disease continues to smoke counseling was provided regarding this Review of Systems REVIEW OF SYSTEMS: CONSTITUTIONAL: No fever, no malaise, no fatigue. HEENT: No recent visual problems or hearing problems. Denied any sore throat. CARDIOVASCULAR: No chest pain, orthopnea, PND, no palpitations, no syncope. PULMONARY: No shortness of breath, no cough, no hemoptysis. GASTROINTESTINAL: No diarrhea, no nausea, no vomiting, no abdominal pain. NEUROLOGICAL: No headaches, no weakness, HEMATOLOGICAL: Denies any bleeding or petechiae. GENITOURINARY: Denies any burning micturition, frequency, or urgency. MUSCULOSKELETAL/RHEUMATOLOGICAL: Denies any joint pain, swelling, or any muscle pain. ENDOCRINE: Denies any polyuria or polydipsia. The rest of the 14-point review of systems is negative. Past Medical History Past Medical History: Asthma, Chest Pain / Angina, Diabetes Mellitus, GERD/Reflux, GI Bleed, Hyperlipidemia, Hypertension, Myocardial Infarction (PR), Osteoarthritis (OA), Sleep Apnea/CPAP/BIPAP Additional Past Medical History / Comment(s): chronic back and neck pain(has lumbar and cervial nuero stimulators), herniated discs in the neck and the back. mood disturbance.occ ringing in ears, " in 1994 a told me he heard a soft heart murmur', uses cpap machine, neuropathy in feet Last Myocardial Infarction Date:: 2004 History of Any Multi-Drug Resistant Organisms: None Reported Past Surgical History: Heart Catheterization With Stent, Hernia Repair, Joint Replacement Additional Past Surgical History / Comment(s): rt knee arthroscopy x3, lt knee arthroscopy last date 2012,total rt knee replacement and a revision sx cardiac stent x1 2004, stent placed for kidney stone 07/04/2016. Kidney stent has been removed. COLONOSCOPY. neuro stimulator implant cervial and recent another one in lumbar area Past Anesthesia/Blood Transfusion Reactions: No Reported Reaction Date of Last Stent Placement:: 2004 Past Psychological History: Anxiety, Bipolar, Depression, PTSD Additional Psychological History / Comment(s): Lives with his , daughter, sister/brother in law, 1 cat, 1 dog. pets: 1 cat, 1 dog. Was in service for 4 years in the [employer] and traveled through the [place] and in [place] Smoking Status: Current every day smoker Past Alcohol Use History: Occasional Additional Past Alcohol Use History / Comment(s): STARTED SMOKING AT AGE 23(1994) Past Drug Use History: None Reported - Past Family History Father Family Medical History: Congestive Heart Failure (CHF), Deep Vein Thrombosis (DVT), Myocardial Infarction (PR), Pulmonary Embolus Additional Family Medical History / Comment(s): PR at age 38. "hole in colon" Mother Family Medical History: Cancer, COPD, Diabetes Mellitus, Hyperlipidemia Additional Family Medical History / Comment(s): breast and lung cancer Sister(s) Family Medical History: Diabetes Mellitus Additional Family Medical History / Comment(s): bi-polar, anxiety. hysterectomy Brother(s) History Unknown: Yes Medications and Allergies Home Medications Medication Instructions Recorded Confirmed Type metFORMIN HCL [Glucophage] 500 mg PO DAILY 06/10/14 01/14/19 History Montelukast Sodium [Singulair] 10 mg PO HS 06/01/16 01/14/19 History Albuterol Inhaler [Ventolin Hfa 2 puff INHALATION RT-Q6H PRN 10/15/17 01/14/19 History Inhaler] Atorvastatin [Lipitor] 80 mg PO DAILY 10/15/17 01/14/19 History Beclomethasone Dipropionate [Qvar 2 puff INHALATION RT-BID 10/15/17 01/14/19 History 80 mcg] Divalproex Sodium 500 mg PO TID 10/15/17 01/14/19 History Fenofibrate Nanocrystallized 145 mg PO DAILY 10/15/17 01/14/19 History [Fenofibrate] Gabapentin [Neurontin] 300 mg PO TID 10/15/17 01/14/19 History Metoprolol Succinate (ER) [Toprol 25 mg PO HS 10/15/17 01/14/19 History XL] Venlafaxine HCl [Effexor XR] 150 mg PO HS 10/15/17 01/14/19 History traZODone HCL 150 mg PO HS 10/15/17 01/14/19 History Dicyclomine [Bentyl] 20 mg PO TID 01/10/19 01/14/19 History Nitroglycerin Sl Tabs [Nitrostat] 0.4 mg SUBLINGUAL Q5M PRN 01/10/19 01/14/19 Hi story Azithromycin [Zithromax Z-pack] See Taper PO DIRECTED 01/14/19 01/14/19 History Allergies Allergy/AdvReac Type Severity Reaction Status Date / Time naproxen [From Naprosyn] Allergy Unknown Rash/Hives Verified 01/14/19 21:25 adhesive tape Allergy Rash/Hives Verified 01/14/19 21:25 ibuprofen Allergy Itching Verified 01/14/19 21:25 mold Allergy Unknown Verified 01/14/19 21:25 carrot AdvReac Dyspnea Verified 01/14/19 21:25 chocolate flavor AdvReac Dyspnea Verified 01/14/19 21:25 grass pollen-perennial rye, AdvReac Dyspnea Verified 01/14/19 21:25 standar Physical Exam Vitals: Vital Signs Temp Pulse Pulse Resp BP BP BP 01/15/19 11:50 98.1 F 78 16 115/70 01/15/19 05:00 98.2 F 85 18 122/66 01/15/19 02:15 80 18 01/15/19 01:18 98.4 F 80 18 120/59 01/15/19 01:00 98.9 F 74 16 116/91 01/14/19 23:54 98.8 F 77 16 126/88 01/14/19 23:09 106 H 18 134/69 01/14/19 22:08 82 18 139/71 01/14/19 21:11 98.9 F 91 18 132/78 Pulse Ox 01/15/19 11:50 99 01/15/19 05:00 98 01/15/19 02:15 01/15/19 01:18 100 01/15/19 01:00 97 01/14/19 23:54 98 01/14/19 23:09 95 01/14/19 22:08 95 01/14/19 21:11 97 Intake and Output 01/14/19 01/15/19 01/15/19 22:59 06:59 14:59 Intake Total 590 Output Total 400 Balance 190 Intake: Oral 590 Output: Urine 400 Other: Voiding Method Urinal Urinal # Voids 2 Weight 91.807 kg PHYSICAL EXAMINATION: GENERAL: The patient is alert and oriented x3, not in any acute distress. Well developed, well nourished. HEENT: Pupils are round and equally reacting to light. EOMI. No scleral icterus. No conjunctival pallor. Normocephalic, atraumatic. No pharyngeal erythema. No thyromegaly. CARDIOVASCULAR: S1 and S2 present. No murmurs, rubs, or gallops. PULMONARY: Chest is clear to auscultation, no wheezing or crackles. ABDOMEN: Soft, nontender, nondistended, normoactive bowel sounds. No palpable organomegaly. MUSCULOSKELETAL: No joint swelling or deformity. EXTREMITIES: No cyanosis, clubbing, or pedal edema. NEUROLOGICAL: Gross neurological examination did not reveal any focal deficits. SKIN: No rashes. Results CBC & Chem 7: 01/14/19 23:54 01/14/19 21:55 Labs: Abnormal Lab Results - Last 24 Hours (Table) 01/14/19 01/14/19 01/14/19 Range/Units 21:55 21:55 21:55 WBC 1.9 L (3.8-10.6) k/uL RBC 3.32 L (4.30-5.90) m/uL Hgb 10.0 L (13.0-17.5) gm/dL Hct 28.7 L (39.0-53.0) % RDW 16.4 H (11.5-15.5) % Plt Count (150-450) k/uL Neutrophils # (Manual) 0.70 L (1.3-7.7) k/uL Lymphocytes # (Manual) 0.84 L (1.0-4.8) k/uL Metamyelocytes # (Man) 0.02 H (0) k/uL Myelocytes # (Manual) 0.10 H (0) k/uL Nucleated RBCs 4 H (0-0) /100 WBC ESR 35 H (0-15) mm/hr Glucose 163 H (74-99) mg/dL POC Glucose (mg/dL) (75-99) mg/dL Magnesium 2.4 H (1.6-2.3) mg/dL 01/14/19 01/15/19 Range/Units 23:54 07:54 WBC (3.8-10.6) k/uL RBC (4.30-5.90) m/uL Hgb (13.0-17.5) gm/dL Hct (39.0-53.0) % RDW (11.5-15.5) % Plt Count 45 L D (150-450) k/uL Neutrophils # (Manual) (1.3-7.7) k/uL Lymphocytes # (Manual) (1.0-4.8) k/uL Metamyelocytes # (Man) (0) k/uL Myelocytes # (Manual) (0) k/uL Nucleated RBCs (0-0) /100 WBC ESR (0-15) mm/hr Glucose (74-99) mg/dL POC Glucose (mg/dL) 108 H (75-99) mg/dL Magnesium (1.6-2.3) mg/dL Thrombosis Risk Factor Assmnt - Choose All That Apply Any of the Below Risk Factors Present?: Yes Each Factor Represents 1 point: Age 41-60 years, Obesity (BMI >25) Other Risk Factors: No Other congenital or acquired thrombophilia - If yes, enter type in comment: No Thrombosis Risk Factor Assessment Total Risk Factor Score: 2 Thrombosis Risk Factor Assessment Level: Low Risk Assessment and Plan Plan: -Tingling and numbness in the left hand probably secondary to peripheral neuropathy are cervical radiculopathy. For which patient will follow with urology as an outpatient --Pancytopenia probably secondary to folate deficiency from valproic acid decreasing the absorption of 40 The MCV Is within Normal Limits. RBC Folate Was Ordered B12 Levels Were Ordered and the Patient Will Follow-Up with Hematology As an Outpatient. -Type 2 Diabetes Mellitus: Continue with the Home Regimen -Gastric Reflux Disease 9 Hypertension -Hyperlipidemia 10-Asthma without Any Acute Exenteration --Sleep Apnea -Continued Nicotine Use: Counseling Was Provided -Bipolar Disorder and Depression Patient will be discharged today as with the above-mentioned plan
--- NOTE | 2019-01-15 15:51 | US ---
EXAMINATION TYPE: US abdomen complete DATE OF EXAM: 01/15/2019 COMPARISON: NONE CLINICAL HISTORY: pancytopenia. EXAM MEASUREMENTS: Liver Length: 17.3 cm Gallbladder Wall: 0.2 cm CBD: 0.4 cm Spleen: 13.9 cm Right Kidney: 11.5 x 4.8 x 5.1 cm Left Kidney: 11.1 x 5.3 x 5.0 cm Pancreas: Tail obscured by overlying bowel gas Liver: Increased attenuation, probable focal fatty sparing adjacent to gallbladder Gallbladder: wnl Evidence for sonographic Castellano's sign: no CBD: wnl Spleen: enlarged Right Kidney: No hydronephrosis or masses seen Left Kidney: No hydronephrosis or masses seen Upper IVC: wnl Abd Aorta: wnl IMPRESSION: 1. Splenomegaly. 2. Hepatomegaly with mild fatty infiltration
[2019-01-15 17:32] LABS: Ferritin 295.5 ng/mL (22.0-322.0)
[2019-01-15 17:37] LABS: Iron Saturation 14.84 (15.00-50.00); Iron(FE) 61 ug/dL (65-175); Rheumatoid Factor <4 IU/mL (0-15); Total Iron Binding Capacity 411 ug/dL (228-460)
[2019-01-15 18:42] LABS: Protein, Total 6.4 g/dL (6.2-8.2)
[2019-01-15 18:59] LABS: HIV 1 AB Non-Reactive (Non-Reactive); HIV 2 AB Non-Reactive (Non-Reactive); HIV AB P24 Non-Reactive (Non-Reactive); HIV P24 AG Non-Reactive (Non-Reactive)
[2019-01-15] MEDS ORDERED: traZODone HCL 50 MG TAB PO SCH (21:00)
[2019-01-15] MEDS ORDERED: VENLAFAXINE HCL ER 75 MG CAP PO SCH (21:00)
[2019-01-15] MEDS ORDERED: MONTELUKAST 10 MG TAB PO SCH (21:00)
[2019-01-15] MEDS ORDERED: METOPROLOL SUCCINATE (ER) 25 MG TAB.ER.24H PO SCH (21:00)
[2019-01-16] MEDS ORDERED: PANTOPRAZOLE 40 MG TABLET PO SCH (09:00)
[2019-01-16 11:53] LABS: Albumin 3.62 g/dL (3.80-4.90); Gamma Globulin 0.79 g/dL (0.70-1.50)
[2019-01-16 12:12] LABS: Free Kappa Lt Chain Qnt, Serum 1.38 mg/dL (0.33-1.94)
== END 2019-01-15 17:07 | disposition home or self-care (01) ==
LOC: EC 21:01 → 3NMEDONC 01-15 00:40
PROVIDERS: ADMIT Internal Medicine; ATTEND Internal Medicine
DX: R20.0 Anesthesia of skin (principal); R20.2 Paresthesia of skin; D61.818 Other pancytopenia; E11.42 Type 2 diabetes mellitus with diabetic polyneuropathy; K21.9 Gastro-esophageal reflux disease without esophagitis; E66.9 Obesity, unspecified; Z68.29 Body mass index [BMI] 29.0-29.9, adult; I10 Essential (primary) hypertension; E78.5 Hyperlipidemia, unspecified; J45.909 Unspecified asthma, uncomplicated; G47.30 Sleep apnea, unspecified; F17.200 Nicotine dependence, unspecified, uncomplicated; F31.9 Bipolar disorder, unspecified; F41.9 Anxiety disorder, unspecified; F43.10 Post-traumatic stress disorder, unspecified; I25.2 Old myocardial infarction; G89.29 Other chronic pain; M54.9 Dorsalgia, unspecified; M19.90 Unspecified osteoarthritis, unspecified site; G56.03 Carpal tunnel syndrome, bilateral upper limbs; I25.10 Atherosclerotic heart disease of native coronary artery without angina pectoris; M50.20 Other cervical disc displacement, unspecified cervical region; Z88.9 Allergy status to unspecified drugs, medicaments and biological substances; Z91.02 Food additives allergy status; Z88.8 Allergy status to other drugs, medicaments and biological substances; Z91.018 Allergy to other foods; Z91.048 Other nonmedicinal substance allergy status; Z79.84 Long term (current) use of oral hypoglycemic drugs; Z79.899 Other long term (current) drug therapy; Z95.5 Presence of coronary angioplasty implant and graft; Z87.19 Personal history of other diseases of the digestive system; Z87.442 Personal history of urinary calculi; Z96.9 Presence of functional implant, unspecified; Z99.89 Dependence on other enabling machines and devices; Z83.3 Family history of diabetes mellitus; Z81.8 Family history of other mental and behavioral disorders; Z82.49 Family history of ischemic heart disease and other diseases of the circulatory system; Z80.3 Family history of malignant neoplasm of breast; Z80.1 Family history of malignant neoplasm of trachea, bronchus and lung; Z83.79 Family history of other diseases of the digestive system; Z83.2 Family history of diseases of the blood and blood-forming organs and certain disorders involving the immune mechanism; Z82.5 Family history of asthma and other chronic lower respiratory diseases
CPT/HCPCS: 96374; 99285; 36415; 94640; 83921; 80164; 82747; 80053; 85652; 82607; 82728; 83540; 83550; 83735; 84100; 85025; 85049; 86431; 84165; 86038; 87390; 86334; 83883; 76700; 70450; G0378; C9113

== ENCOUNTER 2019-01-24 19:17 | Observation (INO) | payer MEDICARE, OTHER ==
--- NOTE | 2019-01-24 19:27 | ED ---
Chest Pain HPI - General Stated Complaint: Chest pain Time Seen by Provider: 01/24/19 19:22 Source: RN notes reviewed, old records reviewed - History of Present Illness Initial Comments: This is a 48-year-old male the ER for evaluation presents today for evaluation of left-sided abdominal pain left-sided chest pain. Left flank pain. No prior history of similar pain before. Denies recent travel history sick contacts. Patient does have history of chest pain cardiac catheterization he says was about a year ago. Patient has a complicated long medical history. Denies fever cough or congestion no current shortness of breath. No recent change in medications multiple ER visits this month for similar complaints MD Complaint: chest pain Onset: during rest Pain Location: left chest Pain Radiation: none Severity: moderate Quality: aching Consistency: constant Improves With: nothing Worsens With: nothing Context: recent illness Anginal Symptoms: other (None) Other Symptoms: other (None) Treatments Prior to Arrival: none - Related Data Home Medications Medication Instructions Recorded Confirmed metFORMIN HCL [Glucophage] 500 mg PO DAILY 06/10/14 01/24/19 Montelukast Sodium [Singulair] 10 mg PO HS 06/01/16 01/24/19 Albuterol Inhaler [Ventolin Hfa 2 puff INHALATION RT-Q6H PRN 10/15/17 01/24/19 Inhaler] Atorvastatin [Lipitor] 80 mg PO DAILY 10/15/17 01/24/19 Beclomethasone Dipropionate [Qvar 2 puff INHALATION RT-BID 10/15/17 01/24/19 80 mcg] Fenofibrate Nanocrystallized 145 mg PO DAILY 10/15/17 01/24/19 [Fenofibrate] Gabapentin [Neurontin] 300 mg PO TID 10/15/17 01/24/19 Metoprolol Succinate (ER) [Toprol 25 mg PO HS 10/15/17 01/24/19 XL] Venlafaxine HCl [Effexor XR] 150 mg PO HS 10/15/17 01/24/19 traZODone HCL 150 mg PO HS 10/15/17 01/24/19 Dicyclomine [Bentyl] 20 mg PO TID 01/10/19 01/24/19 Nitroglycerin Sl Tabs [Nitrostat] 0.4 mg SUBLINGUAL Q5M PRN 01/10/19 01/24/19 Previous Rx's Medication Instructions Recorded Folic Acid-Vit B Complex-Vit C 1 mg PO DAILY #30 capsule 01/15/19 [Nephrocaps] Leucovorin 10 mg PO Q8HR 20 Days #60 tablet 01/26/19 Divalproex [Depakote] 500 mg PO BID 30 Days #60 tablet. 01/27/19 Allergies Allergy/AdvReac Type Severity Reaction Status Date / Time naproxen [From Naprosyn] Allergy Unknown Rash/Hives Verified 01/24/19 23:30 adhesive tape Allergy Rash/Hives Verified 01/24/19 23:30 ibuprofen Allergy Itching Verified 01/24/19 23:30 mold Allergy Unknown Verified 01/24/19 23:30 carrot AdvReac Dyspnea Verified 01/24/19 23:30 chocolate flavor AdvReac Dyspnea Verified 01/24/19 23:30 grass pollen-perennial rye, AdvReac Dyspnea Verified 01/24/19 23:30 standar Review of Systems ROS Statement: Those systems with pertinent positive or pertinent negative responses have been documented in the HPI. ROS Other: All systems not noted in ROS Statement are negative. EKG Findings - EKG Comments: EKG Findings:: EKG shows normal sinus rhythm rate of 97, DC 154, QRS 74, QTC 426 Past Medical History Past Medical History: Asthma, Chest Pain / Angina, Diabetes Mellitus, GERD/Reflux, GI Bleed, Hyperlipidemia, Hypertension, Myocardial Infarction (NV), Osteoarthritis (OA), Sleep Apnea/CPAP/BIPAP Additional Past Medical History / Comment(s): chronic back and neck pain(has lumbar and cervial nuero stimulators), herniated discs in the neck and the back. mood disturbance.occ ringing in ears, " in [address] told me he heard a soft heart murmur', uses cpap machine, neuropathy in feet Last Myocardial Infarction Date:: 2004 History of Any Multi-Drug Resistant Organisms: None Reported Past Surgical History: Heart Catheterization With Stent, Hernia Repair, Joint Replacement Additional Past Surgical History / Comment(s): rt knee arthroscopy x3, lt knee arthroscopy last date 2012,total rt knee replacement and a revision sx cardiac stent x1 2004, stent placed for kidney stone 07/04/2016. Kidney stent has been removed. COLONOSCOPY. neuro stimulator implant cervial and recent another one in lumbar area Past Anesthesia/Blood Transfusion Reactions: No Reported Reaction Date of Last Stent Placement:: 2004 Past Psychological History: Anxiety, Bipolar, Depression, PTSD Additional Psychological History / Comment(s): Lives with his , daughter, sister/brother in law, 1 cat, 1 dog. pets: 1 cat, 1 dog. Was in service for 4 years in the [employer] and traveled through the [place] and in [place] Smoking Status: Current every day smoker Past Alcohol Use History: Occasional Additional Past Alcohol Use History / Comment(s): STARTED SMOKING AT AGE 23(1994) Past Drug Use History: None Reported - Past Family History Father Family Medical History: Congestive Heart Failure (CHF), Deep Vein Thrombosis (DVT), Myocardial Infarction (NV), Pulmonary Embolus Additional Family Medical History / Comment(s): NV at age 38. "hole in colon" Mother Family Medical History: Cancer, COPD, Diabetes Mellitus, Hyperlipidemia Additional Family Medical History / Comment(s): breast and lung cancer Sister(s) Family Medical History: Diabetes Mellitus Additional Family Medical History / Comment(s): bi-polar, anxiety. hysterectomy Brother(s) History Unknown: Yes General Exam General appearance: alert, in no apparent distress Head exam: Present: atraumatic, normocephalic, normal inspection Eye exam: Present: normal appearance, PERRL, EOMI. Absent: scleral icterus, conjunctival injection, periorbital swelling ENT exam: Present: normal exam, mucous membranes moist Neck exam: Present: normal inspection. Absent: tenderness, meningismus, lymphadenopathy Respiratory exam: Present: normal lung sounds bilaterally. Absent: respiratory distress, wheezes, rales, rhonchi, stridor Cardiovascular Exam: Present: regular rate, normal rhythm, normal heart sounds. Absent: systolic murmur, diastolic murmur, rubs, gallop, clicks GI/Abdominal exam: Present: soft, normal bowel sounds. Absent: distended, tenderness, guarding, rebound, rigid Extremities exam: Present: normal inspection, full ROM, normal capillary refill. Absent: tenderness, pedal edema, joint swelling, calf tenderness Back exam: Present: normal inspection Neurological exam: Present: alert, oriented X3, CN II-XII intact Psychiatric exam: Present: normal affect, normal mood Skin exam: Present: warm, dry, intact, normal color. Absent: rash Course Vital Signs 01/24/19 01/24/19 01/24/19 19:21 21:53 23:09 Temperature 100.1 F H 98.4 F Pulse Rate 86 87 87 Respiratory 20 18 18 Rate Blood Pressure 124/67 126/79 134/87 O2 Sat by Pulse 98 99 99 Oximetry - Reevaluation(s) Reevaluation #1: 01/24/19 19:38 Medical records reviewed including multiple ER visits this week as well as prior heart catheterization negative Chest Pain MDM - [facility] 48 male comes in with dizziness swelling feels febrile and chills, chest pain. Chest x-rays negative for acute disease, EKG is negative. Patient remains significant pancytopenic with low platelets starting on steroids. Disposition Clinical Impression: Fever, Dizziness, Smoking, Chest pain, Pancreatitis, Pancytopenia, Hypoglycemia Disposition: ADMITTED IP TO THIS HOSP Condition: Fair Is patient prescribed a controlled substance at d/c from ED?: No
[2019-01-24] MEDS ORDERED: ACETAMINOPHEN TAB 500 MG TAB PO STA (19:39)
--- NOTE | 2019-01-24 19:50 | XR ---
EXAMINATION TYPE: XR chest 2V DATE OF EXAM: 01/24/2019 COMPARISON: 01/10/2019 HISTORY: 48-year-old male with chest pain TECHNIQUE: AP and lateral views FINDINGS: Spinal stimulator present along the mid thoracic spinal canal. Leads extend up to the thoracic inlet and beyond the [id number] of the neck. Heart upper limits of normal in size. Mild interstitial pro minence has a chronic appearance. No consolidation or pleural effusion. IMPRESSION: Chronic-appearing changes. No acute process seen.
[2019-01-24 20:02] LABS: Anisocytosis Slight; HCT 26.6 % (39.0-53.0); HGB 9.2 gm/dL (13.0-17.5); Hypochromasia Slight; MCH 29.9 pg (25.0-35.0); MCHC 34.7 g/dL (31.0-37.0); MCV 86.1 fL (80.0-100.0); Mean Platelet Volume 7.5; Poikilocytosis Moderate; RBC 3.09 m/uL (4.30-5.90); RDW 18.2 % (11.5-15.5)
[2019-01-24 20:11] LABS: ALT 38 U/L (21-72); AST 32 U/L (17-59); African American GFR (CKD) >90 (>60 ml/min/1.73 sqM); Albumin 4.3 g/dL (3.5-5.0); Alcohol <10 mg/dL; Alkaline Phosphatase 60 U/L (38-126); Anion Gap 9 mmol/L; Blood Urea Nitrogen 15 mg/dL (9-20); Calcium 9.4 mg/dL (8.4-10.2); Carbon Dioxide 25 mmol/L (22-30); Chloride 106 mmol/L (98-107); Creatine Kinase 31 U/L (55-170); Glucose 70 mg/dL (74-99); Magnesium 2.2 mg/dL (1.6-2.3); Potassium 4.1 mmol/L (3.5-5.1); Sodium 140 mmol/L (137-145); Total Protein 7.3 g/dL (6.3-8.2)
[2019-01-24 20:12] LABS: Partial Thromboplastin Time 29.8 sec (22.0-30.0); Prothrombin Time 10.7 sec (9.0-12.0)
[2019-01-24] MEDS ORDERED: DEXAMETHASONE SOD PHOSPHATE 10 MG/ML 1 ML VIAL IV STA (20:28)
[2019-01-24 20:32] LABS: Appearance,Urine Cloudy (Clear); Bacteria,Urine Rare /hpf; Bilirubin,Urine Negative (Negative); Blood,Urine Negative (Negative); Color,Urine Yellow; Glucose,Urine (UA) Negative (Negative); Ketones,Urine Negative (Negative); Leukocyte Esterase,Urine Negative (Negative); Mucus,Urine Rare /hpf; Nitrite,Urine Negative (Negative); Protein,Urine Trace (Negative); RBC,Urine 1 /hpf (0-5); Specific Gravity,Urine 1.022 (1.001-1.035); Sperm,Urine Occasional /hpf; Urobilinogen,Urine >12.0 mg/dL (<2.0); WBC,Urine 2 /hpf (0-5)
[2019-01-24 20:43] LABS: Amphetamine Screen,Urine Not Detected (NotDetected); Barbiturate Screen,Urine Not Detected (NotDetected); Benzodiazepines Screen,Urine Not Detected (NotDetected); Cocaine Screen,Urine Not Detected (NotDetected); Methadone Screen, Urine Not Detected (NotDetected); Opiate Screen,Urine Not Detected (NotDetected); Oxycodone Screen, Urine Not Detected (NotDetected); Phencyclidine Screen,Urine Not Detected (NotDetected); Tricyclic Antidepressant,Urine Not Detected (NotDetected); Urn Cannabinoid Scrn Not Detected (NotDetected)
[2019-01-24 20:54] LABS: Band Neutrophils % 1 %; Eosinophils # (M) 0.03 k/uL (0-0.7); Lymphocytes # (M) 1.38 k/uL (1.0-4.8); Metamyelocytes # (M) 0.03 k/uL (0); Metamyelocytes % 1 %; Monocytes # (M) 0.42 k/uL (0-1.0); Myelocytes # (M) 0.08 k/uL (0); Myelocytes % 3 %; Neutrophils % (M) 27 %; Nucleated Red Blood Cells 2 /100 WBC (0-0); Total Cells Counted 200; WBC 2.6 k/uL (3.8-10.6)
[2019-01-24 20:55] LABS: Large Platelets Present; Poikilocytosis (M) Present; Polychromasia Present
[2019-01-24] MEDS ORDERED: NITROGLYCERIN SL TABS 0.4 MG TAB SUBLINGUAL PRN (21:47)
[2019-01-24] MEDS: DEXAMETHASONE SOD PHOSPHATE 4 MG/ML 1 ML VIAL IV SCH (23:22)
[2019-01-24] MEDS: SODIUM CHLORIDE 0.9% 1,000 ML IV SCH (23:22)
[2019-01-25 04:12] LABS: Cholesterol 130 mg/dL (<200); HDL Cholesterol 23 mg/dL (40-60); LDL Cholesterol,Calculated 57 mg/dL (0-99); Triglycerides 251 mg/dL (<150)
[2019-01-25 04:27] LABS: Glucose,Whole Blood 176 mg/dL (75-99)
[2019-01-25] MEDS: DEXAMETHASONE SOD PHOSPHATE 4 MG/ML 1 ML VIAL IV SCH ×4 (04:54→23:21)
[2019-01-25 06:59] LABS: Glucose,Whole Blood 124 mg/dL (75-99)
--- NOTE | 2019-01-25 11:15 | P.CONS ---
History of Present Illness - Reason for Consult Consult date: 01/25/19 Persistent pancytopenia - History of Present Illness The patient is a 48-year-old male recently seen in consultation on 01/15/19. The patient at that time and presented with pancytopenia. He had full lab workup that was negative. It was felt That the pancytopenia could potentially be due to medication effect, specifically his psychiatric medications. A psych consult was requested but could not be performed while the patient was inpatient. He was therefore discharged on the same medications. He was also given a pr escription for folic acid but states that he did not start taking it as he could not afford it. The patient came back to the hospital complaining of left-sided chest pain. He does claim a prior cardiac history but troponins were negative. CBC showed persistent pancytopenia in the same range. Consult was therefore placed a further evaluation and recommendations. The patient denied any fever or chills, or obvious bleeding. Review of Systems Constitutional: Reports chronic pain, Reports fatigue Eyes: denies blurred vision, denies pain Ears: deny: decreased hearing, ear discharge, earache, tinnitus Ears, nose, mouth and throat: Denies headache, Denies sore throat Cardiovascular: Reports chest pain Respiratory: Reports as per HPI, Reports pain, Reports pain on inspiration Gastrointestinal: Denies abdominal pain, Denies diarrhea, Denies nausea, Denies vomiting Genitourinary: Reports as per HPI Musculoskeletal: Reports as per HPI (Extensive history of chronic muscle skeletal pain, status post spinal cord stem later), Reports shooting arm pain, Reports shooting leg pain, Denies myalgias Integumentary: Denies pruritus, Denies rash Neurological: Denies numbness, Denies weakness Psychiatric: Reports anxiety, Reports depression, Reports mood swings Endocrine: Denies fatigue, Denies weight change Hematologic/Lymphatic: Reports as per HPI Past Medical History Past Medical History: Asthma, Chest Pain / Angina, Diabetes Mellitus, GERD/Reflux, GI Bleed, Hyperlipidemia, Hypertension, Myocardial Infarction ([place]), Osteoarthritis (OA), Sleep Apnea/CPAP/BIPAP Additional Past Medical History / Comment(s): chronic back and neck pain(has lumbar and cervial nuero stimulators), herniated discs in the neck and the back. mood disturbance.occ ringing in ears, " in 1994 a told me he heard a soft heart murmur', uses cpap machine, neuropathy in feet Last Myocardial Infarction Date:: 2004 History of Any Multi-Drug Resistant Organisms: None Reported Past Surgical History: Heart Catheterization With Stent, Hernia Repair, Joint Replacement Additional Past Surgical History / Comment(s): rt knee arthroscopy x3, lt knee arthroscopy last date 2012,total rt knee replacement and a revision sx cardiac stent x1 2004, stent placed for kidney stone 07/04/2016. Kidney stent has been removed. COLONOSCOPY. neuro stimulator implant cervial and recent another one in lumbar area Past Anesthesia/Blood Transfusion Reactions: No Reported Reaction Date of Last Stent Placement:: 2004 Smoking Status: Current every day smoker - Past Family History Father Family Medical History: Congestive Heart Failure (CHF), Deep Vein Thrombosis (DVT), Myocardial Infarction ([place]), Pulmonary Embolus Additional Family Medical History / Comment(s): [place] at age 38. "hole in colon" Mother Family Medical History: Cancer, COPD, Diabetes Mellitus, Hyperlipidemia Additional Family Medical History / Comment(s): breast and lung cancer Sister(s) Family Medical History: Diabetes Mellitus Additional Family Medical History / Comment(s): bi-polar, anxiety. hysterectomy Brother(s) History Unknown: Yes Medications and Allergies Home Medications Medication Instructions Recorded Confirmed Type metFORMIN HCL [Glucophage] 500 mg PO DAILY 06/10/14 01/24/19 History Montelukast Sodium [Singulair] 10 mg PO HS 06/01/16 01/24/19 History Albuterol Inhaler [Ventolin Hfa 2 puff INHALATION RT-Q6H PRN 10/15/17 01/24/19 History Inhaler] Atorvastatin [Lipitor] 80 mg PO DAILY 10/15/17 01/24/19 History Beclomethasone Dipropionate [Qvar 2 puff INHALATION RT-BID 10/15/17 01/24/19 History 80 mcg] Divalproex Sodium 500 mg PO TID 10/15/17 01/24/19 History Fenofibrate Nanocrystallized 145 mg PO DAILY 10/15/17 01/24/19 History [Fenofibrate] Gabapentin [Neurontin] 300 mg PO TID 10/15/17 01/24/19 History Metoprolol Succinate (ER) [Toprol 25 mg PO HS 10/15/17 01/24/19 History XL] Venlafaxine HCl [Effexor XR] 150 mg PO HS 10/15/17 01/24/19 History traZODone HCL 150 mg PO HS 10/15/17 01/24/19 History Dicyclomine [Bentyl] 20 mg PO TID 01/10/19 01/24/19 History Nitroglycerin Sl Tabs [Nitrostat] 0.4 mg SUBLINGUAL Q5M PRN 01/10/19 01/24/19 History Folic Acid-Vit B Complex-Vit C 1 mg PO DAILY #30 capsule 01/15/19 01/24/19 Rx [Nephrocaps] Allergies Allergy/AdvReac Type Severity Reaction Status Date / Time naproxen [From Naprosyn] Allergy Unknown Rash/Hives Verified 01/24/19 23:30 adhesive tape Allergy Rash/Hives Verified 01/24/19 23:30 ibuprofen Allergy Itching Verified 01/24/19 23:30 mold Allergy Unknown Verified 01/24/19 23:30 carrot AdvReac Dyspnea Verified 01/24/19 23:30 chocolate flavor AdvReac Dyspnea Verified 01/24/19 23:30 grass pollen-perennial rye, AdvReac Dyspnea Verified 01/24/19 23:30 standar Physical Exam Vitals: Vital Signs Temp Pulse Pulse Resp BP BP BP 01/25/19 08:38 80 16 01/25/19 08:00 98.0 F 67 16 108/64 01/25/19 04:00 98.1 F 75 18 112/67 01/25/19 03:39 18 01/24/19 23:59 18 01/24/19 23:38 98.2 F 71 18 109/67 01/24/19 23:09 98.4 F 87 18 134/87 01/24/19 21:53 87 18 126/79 01/24/19 19:21 100.1 F H 86 20 124/67 Pulse Ox 01/25/19 08:38 01/25/19 08:00 96 01/25/19 04:00 98 01/25/19 03:39 01/24/19 23:59 01/24/19 23:38 98 01/24/19 23:09 99 01/24/19 21:53 99 01/24/19 19:21 98 Intake and Output 01/24/19 01/25/19 01/25/19 22:59 06:59 14:59 Other: # Voids 1 Weight 93.44 kg - Constitutional General appearance: no acute distress - EENT Eyes: EOMI, PERRLA ENT: hearing grossly normal, normal oropharynx - Neck Neck: no lymphadenopathy Thyroid: bilateral: normal size - Respiratory Respiratory: bilateral: CTA - Cardiovascular Rhythm: regular Heart sounds: normal: S1, S2 - Gastrointestinal General gastrointestinal: normal bowel sounds, soft - Integumentary Integumentary: normal - Neurologic Neurologic: CNII-XII intact - Musculoskeletal Musculoskeletal: strength equal bilaterally - Psychiatric Psychiatric: A&O x's 3, appropriate affect Results CBC & Chem 7: 01/24/19 19:30 01/24/19 19:30 Labs: Abnormal Lab Results - Last 24 Hours (Table) 01/24/19 01/24/19 01/24/19 Range/Units 19:30 19:30 19:30 WBC 2.6 L (3.8-10.6) k/uL RBC 3.09 L (4.30-5.90) m/uL Hgb 9.2 L (13.0-17.5) gm/dL Hct 26.6 L (39.0-53.0) % RDW 18.2 H (11.5-15.5) % Neutrophils # (Manual) 0.70 L (1.3-7.7) k/uL Metamyelocytes # (Man) 0.03 H (0) k/uL Myelocytes # (Manual) 0.08 H (0) k/uL Nucleated RBCs 2 H (0-0) /100 WBC Glucose 70 L (74-99) mg/dL POC Glucose (mg/dL) (75-99) mg/dL Creatine Kinase 31 L (55-170) U/L Triglycerides 251 H (<150) mg/dL HDL Cholesterol 23 L (40-60) mg/dL Lipase 593 H (23-300) U/L Urine Protein (Negative) Urine Bacteria (None) /hpf Urine Mucus (None) /hpf Urine Sperm (None) /hpf 01/24/19 01/25/19 01/25/19 Range/Units 20:20 04:25 06:57 WBC (3.8-10.6) k/uL RBC (4.30-5.90) m/uL Hgb (13.0-17.5) gm/dL Hct (39.0-53.0) % RDW (11.5-15.5) % Neutrophils # (Manual) (1.3-7.7) k/uL Metamyelocytes # (Man) (0) k/uL Myelocytes # (Manual) (0) k/uL Nucleated RBCs (0-0) /100 WBC Glucose (74-99) mg/dL POC Glucose (mg/dL) 176 H 124 H (75-99) mg/dL Creatine Kinase (55-170) U/L Triglycerides (<150) mg/dL HDL Cholesterol (40-60) mg/dL Lipase (23-300) U/L Urine Protein Trace H (Negative) Urine Bacteria Rare H (None) /hpf Urine Mucus Rare H (None) /hpf Urine Sperm Occasional H (None) /hpf Chest x-ray: report reviewed Assessment and Plan (1) Pancytopenia Narrative/Plan: The patient has had an extensive workup so far with labs been negative. His ultrasound did show possible fatty liver and splenomegaly which could be contributing factor, but is unlikely to cause cytopenia that this degree, especially leukopenia, by itself. The patient denied any alcohol use. Therefore medication effect plus splenic sequestration is a major differential diagnosis. Other causes are not ruled out. Start the patient on oral leucovorin. He states that he has prescription coverage, but cannot afford [id number] medication. Hold Depakote if possible. Counts are in a safe range. ANC is greater than 500. His platelet count could not be estimated, but the patient had platelet clumping previously, the refore these are also likely to be in a safe range. Repeat CBC in citrated tube to confirm. If pancytopenia persists despite the above intervention, then the patient will need a bone marrow. This can be scheduled on outpatient follow-up. Current Visit: Yes Status: Acute Priority: High Code(s): D61.818 - OTHER PANCYTOPENIA SNOMED Code(s): 694170872 (2) Chest pain Narrative/Plan: Overall atypical. Troponins were negative. Check CTA to rule out PE. Current Visit: Yes Status: Acute Code(s): R07.9 - CHEST PAIN, UNSPECIFIED SNOMED Code(s): 93017049
[2019-01-25 11:33] LABS: Glucose,Whole Blood 196 mg/dL (75-99)
[2019-01-25 11:52] LABS: Anisocytosis Slight; Basophils % (A) 2 %; Eosinophils # (A) 0.1 k/uL (0-0.7); Eosinophils % (A) 3 %; HCT 26.2 % (39.0-53.0); Hypochromasia Slight; Lymphocytes # (A) 0.6 k/uL (1.0-4.8); Lymphocytes % (A) 35 %; MCH 30.5 pg (25.0-35.0); MCHC 34.3 g/dL (31.0-37.0); MCV 88.9 fL (80.0-100.0); Monocytes # (A) 0.3 k/uL (0-1.0); Monocytes % (A) 17 %; Neutrophils # (A) 0.8 k/uL (1.3-7.7); Neutrophils % (A) 41 %; Poikilocytosis Slight; RBC 2.95 m/uL (4.30-5.90); RDW 18.3 % (11.5-15.5); WBC 1.8 k/uL (3.8-10.6)
[2019-01-25] MEDS ORDERED: ALBUTEROL NEBULIZED 2.5 MG/3 ML INHALATION PRN (13:07)
[2019-01-25] MEDS ORDERED: NITROGLYCERIN SL TABS 0.4 MG TAB SUBLINGUAL PRN (13:07)
--- NOTE | 2019-01-25 13:23 | P.HPIM ---
History of Present Illness H&P Date: 01/25/19 Chief Complaint: Chest pain Fransisco Burnham is a 48-year-old male who presented to [facility] emergency room with a chief complaint of chest pain patient describes a sharp pain in the left side of his chest that started on the day prior to admission and has been on and off each episode lasted for a few seconds to a few minutes there was no accompanying shortness of breath, nausea, vomiting, or sweating. There is no radiation of the pain. Patient states that he has a known history of coronary artery disease with angina and previous history of [place] he states that he had cardiac catheterization in 2004 patient denies any knowledge of any stent placement or angioplasty. His cardiac risk factors include history of hypertension, history of hyperlipidemia, history of diabetes Meliitus and history of smoking, no clear history of early family history of myocardial infarction. Patient was recently admitted to [facility] at that time he had evidence of pancytopenia he was seen by hematology he had evidence of splenomegaly and pancytopenia was thought to be related to medications especially Depakote he was told to take Folic Acid which she did not do as outpatient due to cost. Past Medical History Past Medical History: Asthma, Chest Pain / Angina, Diabetes Mellitus, GERD/Reflux, GI Bleed, Hyperlipidemia, Hypertension, Myocardial Infarction ([place]), Osteoarthritis ([place]), Sleep Apnea/CPAP/BIPAP Additional Past Medical History / Comment(s): chronic back and neck pain(has lumbar and cervial nuero stimulators), herniated discs in the neck and the back. mood disturbance.occ ringing in ears, " in [address] told me he heard a soft heart murmur', uses cpap machine, neuropathy in feet Last Myocardial Infarction Date:: 2004 History of Any Multi-Drug Resistant Organisms: None Reported Past Surgical History: Heart Catheterization With Stent, Hernia Repair, Joint Replacement Additional Past Surgical History / Comment(s): rt knee arthroscopy x3, lt knee arthroscopy last date 2012,total rt knee replacement and a revision sx cardiac stent x1 2004, stent placed for kidney stone 07/04/2016. Kidney stent has been removed. COLONOSCOPY. neuro stimulator implant cervial and recent another one in lumbar area Past Anesthesia/Blood Transfusion Reactions: No Reported Reaction Date of Last Stent Placement:: 2004 Smoking Status: Current every day smoker - Past Family History Father Family Medical History: Congestive Heart Failure (CHF), Deep Vein Thrombosis (DVT), Myocardial Infarction ([place]), Pulmonary Embolus Additional Family Medical History / Comment(s): [place] at age 38. "hole in colon" Mother Family Medical History: Cancer, COPD, Diabetes Mellitus, Hyperlipidemia Additional Family Medical History / Comment(s): breast and lung cancer Sister(s) Family Medical History: Diabetes Mellitus Additional Family Medical History / Comment(s): bi-polar, anxiety. hysterectomy Brother(s) History Unknown: Yes Medications and Allergies Home Medications Medication Instructions Recorded Confirmed Type metFORMIN HCL [Glucophage] 500 mg PO DAILY 06/10/14 01/24/19 History Montelukast Sodium [Singulair] 10 mg PO HS 06/01/16 01/24/19 History Albuterol Inhaler [Ventolin Hfa 2 puff INHALATION RT-Q6H PRN 10/15/17 01/24/19 History Inhaler] Atorvastatin [Lipitor] 80 mg PO DAILY 10/15/17 01/24/19 History Beclomethasone Dipropionate [Qvar 2 puff INHALATION RT-BID 10/15/17 01/24/19 History 80 mcg] Divalproex Sodium 500 mg PO TID 10/15/17 01/24/19 History Fenofibrate Nanocrystallized 145 mg PO DAILY 10/15/17 01/24/19 History [Fenofibrate] Gabapentin [Neurontin] 300 mg PO TID 10/15/17 01/24/19 History Metoprolol Succinate (ER) [Toprol 25 mg PO HS 10/15/17 01/24/19 History XL] Venlafaxine HCl [Effexor XR] 150 mg PO HS 10/15/17 01/24/19 History traZODone HCL 150 mg PO HS 10/15/17 01/24/19 History Dicyclomine [Bentyl] 20 mg PO TID 01/10/19 01/24/19 History Nitroglycerin Sl Tabs [Nitrostat] 0.4 mg SUBLINGUAL Q5M PRN 01/10/19 01/24/19 History Folic Acid-Vit B Complex-Vit C 1 mg PO DAILY #30 capsule 01/15/19 01/24/19 Rx [Nephrocaps] Allergies Allergy/AdvReac Type Severity Reaction Status Date / Time naproxen [From Naprosyn] Allergy Unknown Rash/Hives Verified 01/24/19 23:30 adhesive tape Allergy Rash/Hives Verified 01/24/19 23:30 ibuprofen Allergy Itching Verified 01/24/19 23:30 mold Allergy Unknown Verified 01/24/19 23:30 carrot AdvReac Dyspnea Verified 01/24/19 23:30 chocolate flavor AdvReac Dyspnea Verified 01/24/19 23:30 grass pollen-perennial rye, AdvReac Dyspnea Verified 01/24/19 23:30 standar Physical Exam Vitals: Vital Signs Temp Pulse Pulse Resp BP BP BP 01/25/19 08:38 80 16 01/25/19 08:00 98.0 F 67 16 108/64 01/25/19 04:00 98.1 F 75 18 112/67 01/25/19 03:39 18 01/24/19 23:59 18 01/24/19 23:38 98.2 F 71 18 109/67 01/24/19 23:09 98.4 F 87 18 134/87 01/24/19 21:53 87 18 126/79 01/24/19 19:21 100.1 F H 86 20 124/67 Pulse Ox 01/25/19 08:38 01/25/19 08:00 96 01/25/19 04:00 98 01/25/19 03:39 01/24/19 23:59 01/24/19 23:38 98 01/24/19 23:09 99 01/24/19 21:53 99 01/24/19 19:21 98 Intake and Output 01/24/19 01/25/19 01/25/19 22:59 06:59 14:59 Other: # Voids 1 Weight 93.44 kg In general patient is alert and oriented 3 in no apparent distress HEENT head normocephalic and atraumatic Neck is supple no JVD no goiter no lymphadenopathy Chest exam reveals a few scattered crackles bilaterally no wheezing Cardiac exam reveals regular heart sounds S1 and S2 no gallops no murmurs Abdomen is soft nontender no organomegaly with normal bowel sounds Extremity exam reveals no edema no cyanosis or clubbing Neurological examination reveals no gross focal deficit Results CBC & Chem 7: 01/25/19 07:17 01/24/19 19:30 Labs: Abnormal Lab Results - Last 24 Hours (Table) 01/24/19 01/24/19 01/24/19 Range/Units 19:30 19:30 19:30 WBC 2.6 L (3.8-10.6) k/uL RBC 3.09 L (4.30-5.90) m/uL Hgb 9.2 L (13.0-17.5) gm/dL Hct 26.6 L (39.0-53.0) % RDW 18.2 H (11.5-15.5) % Neutrophils # (1.3-7.7) k/uL Neutrophils # (Manual) 0.70 L (1.3-7.7) k/uL Lymphocytes # (1.0-4.8) k/uL Metamyelocytes # (Man) 0.03 H (0) k/uL Myelocytes # (Manual) 0.08 H (0) k/uL Nucleated RBCs 2 H (0-0) /100 WBC Glucose 70 L (74-99) mg/dL POC Glucose (mg/dL) (75-99) mg/dL Creatine Kinase 31 L (55-170) U/L Triglycerides 251 H (<150) mg/dL HDL Cholesterol 23 L (40-60) mg/dL Lipase 593 H (23-300) U/L Urine Protein (Negative) Urine Bacteria (None) /hpf Urine Mucus (None) /hpf Urine Sperm (None) /hpf 01/24/19 01/25/19 01/25/19 Range/Units 20:20 04:25 06:57 WBC (3.8-10.6) k/uL RBC (4.30-5.90) m/uL Hgb (13.0-17.5) gm/dL Hct (39.0-53.0) % RDW (11.5-15.5) % Neutrophils # (1.3-7.7) k/uL Neutrophils # (Manual) (1.3-7.7) k/uL Lymphocytes # (1.0-4.8) k/uL Metamyelocytes # (Man) (0) k/uL Myelocytes # (Manual) (0) k/uL Nucleated RBCs (0-0) /100 WBC Glucose (74-99) mg/dL POC Glucose (mg/dL) 176 H 124 H (75-99) mg/dL Creatine Kinase (55-170) U/L Triglycerides (<150) mg/dL HDL Cholesterol (40-60) mg/dL Lipase (23-300) U/L Urine Protein Trace H (Negative) Urine Bacteria Rare H (None) /hpf Urine Mucus Rare H (None) /hpf Urine Sperm Occasional H (None) /hpf 01/25/19 01/25/19 Range/Units 07:17 11:31 WBC 1.8 L (3.8-10.6) k/uL RBC 2.95 L (4.30-5.90) m/uL Hgb 9.0 L (13.0-17.5) gm/dL Hct 26.2 L (39.0-53.0) % RDW 18.3 H (11.5-15.5) % Neutrophils # 0.8 L (1.3-7.7) k/uL Neutrophils # (Manual) (1.3-7.7) k/uL Lymphocytes # 0.6 L (1.0-4.8) k/uL Metamyelocytes # (Man) (0) k/uL Myelocytes # (Manual) (0) k/uL Nucleated RBCs (0-0) /100 WBC Glucose (74-99) mg/dL POC Glucose (mg/dL) 196 H (75-99) mg/dL Creatine Kinase (55-170) U/L Triglycerides (<150) mg/dL HDL Cholesterol (40-60) mg/dL Lipase (23-300) U/L Urine Protein (Negative) Urine Bacteria (None) /hpf Urine Mucus (None) /hpf Urine Sperm (None) /hpf Thrombosis Risk Factor Assmnt - Choose All That Apply Each Factor Represents 1 point: Age 41-60 years Thrombosis Risk Factor Assessment Total Risk Factor Score: 1 Thrombosis Risk Factor Assessment Level: Low Risk Assessment and Plan Plan: #1 episode of chest pain not typical for angina however due to previous history of coronary artery disease Will consult cardiology for evaluation, troponin 2 sets are negative so far, EKG reveals normal sinus rhythm with nonspecific ST and T-wave abnormality #2 pancytopenia input from hematology reviewed, with decreased dose of Depakote to 500 mg twice a day instead of 3 times a day Will monitor closely will try to wean off Depakote gradually Folic acid acid was added to her regimen #3 history of depression with suicidal ideation patient states that he has been on Depakote for mood Stabilizer for almost 20 years he states that about 7 years ago his physician try to wean him off Depakote but that was unsuccessful due to severe depression and suicidal ideation #4 underlying history of hypertension well-controlled on current medications #5 underlying history of diabetes mellitus with check hemoglobin A1c to assess control #6 underlying history of hyperlipidemia maintained on Lipitor. Medication and labs were reviewed please see orders will follow in a.m.
[2019-01-25] MEDS: INSULIN ASPART (NovoLOG) 100 UNIT/ML VIAL SQ SCH ×3 (13:35→20:49)
--- NOTE | 2019-01-25 13:36 | CT ---
EXAMINATION TYPE: CT angio chest DATE OF EXAM: 01/25/2019 COMPARISON: 01/29/2018 HISTORY: 48-year-old male Chest pain TECHNIQUE: Contiguous axial scanning of the chest performed with IV Contrast, patient injected with 1 00 mL of Isovue 370. Coronal/sagittal MIP reconstructions performed. CT DLP: 460.8 mGycm Automated exposure control for dose reduction was used. FINDINGS: Heart normal size without pericardial effusion. No flattening of the interventricular septum or reflu x of contrast into the hepatic veins. Aorta normal caliber with conventional arch vessel branching anatomy. No thoracic lymphadenopathy. Satisfactory opacification of the pulmonary arterial system but with mild breathing motion artifacts causing limitation in assessment. No pulmonary embolus is seen. No consolidation or pleural effusion. Some strandy atelectasis in the lower lungs. Visualized upper abdomen shows marked low attenuation of the hepatic parenchyma. There is decrease in excreting contrast from the kidneys. Spleen enlarged at 15.1 cm. Bones: Spinal stimulator array along the mid thoracic spinal canal. IMPRESSION: MILD MOTION ARTIFACT. NO DEFINITE PULMONARY EMBOLUS. NO ACUTE CARDIOPULMONARY PROCESS. MARKED HEPATIC STEATOSIS AND MILD SPLENOMEGALY (15.1 CM).
[2019-01-25] MEDS: DIVALPROEX 500 MG TABLET.DR PO SCH ×2 (14:43→20:50)
[2019-01-25 16:31] LABS: Glucose,Whole Blood 164 mg/dL (75-99)
[2019-01-25] MEDS: GABAPENTIN 300 MG CAP PO SCH ×2 (16:47→20:50)
[2019-01-25] MEDS: DICYCLOMINE 20 MG TAB PO SCH ×2 (17:04→20:49)
[2019-01-25] MEDS: FLUTICASONE 110 MCG INHALER INHALATION SCH (20:03)
[2019-01-25] MEDS: SODIUM CHLORIDE 0.9% 1,000 ML IV SCH (20:48)
[2019-01-25] MEDS: traZODone HCL 50 MG TAB PO SCH (20:49)
[2019-01-25] MEDS: MONTELUKAST 10 MG TAB PO SCH (20:49)
[2019-01-25 20:50] LABS: Glucose,Whole Blood 155 mg/dL (75-99)
[2019-01-25] MEDS: METOPROLOL SUCCINATE (ER) 25 MG TAB.ER.24H PO SCH (20:50)
[2019-01-25] MEDS: VENLAFAXINE HCL ER 150 MG CAP PO SCH (20:51)
[2019-01-26 06:09] LABS: Anisocytosis Slight; Hypochromasia Slight; MCHC 33.3 g/dL (31.0-37.0); Mean Platelet Volume 9.1; Poikilocytosis Slight; RBC 3.45 m/uL (4.30-5.90); RDW 17.5 % (11.5-15.5)
[2019-01-26 06:21] LABS: ALT 37 U/L (21-72); AST 23 U/L (17-59); African American GFR (CKD) >90 (>60 ml/min/1.73 sqM); Albumin 4.7 g/dL (3.5-5.0); Alkaline Phosphatase 58 U/L (38-126); Anion Gap 12 mmol/L; Blood Urea Nitrogen 18 mg/dL (9-20); Calcium 9.9 mg/dL (8.4-10.2); Carbon Dioxide 26 mmol/L (22-30); Chloride 104 mmol/L (98-107); Glucose 125 mg/dL (74-99); Potassium 4.3 mmol/L (3.5-5.1); Sodium 142 mmol/L (137-145); Total Bilirubin 0.6 mg/dL (0.2-1.3); Total Protein 7.9 g/dL (6.3-8.2)
[2019-01-26] MEDS: INSULIN ASPART (NovoLOG) 100 UNIT/ML VIAL SQ SCH ×4 (06:27→20:33)
[2019-01-26] MEDS: DEXAMETHASONE SOD PHOSPHATE 4 MG/ML 1 ML VIAL IV SCH (06:27)
[2019-01-26 06:36] LABS: Platelet Count 39 k/uL (150-450)
[2019-01-26 06:44] LABS: Band Neutrophils % 3 %; Basophils # (M) 0.03 k/uL (0-0.2); Eosinophils # (M) 0.03 k/uL (0-0.7); Large Platelets Present; Lymphocytes # (M) 1.33 k/uL (1.0-4.8); Metamyelocytes # (M) 0.07 k/uL (0); Metamyelocytes % 2 %; Monocytes # (M) 0.37 k/uL (0-1.0); Neutrophils % (M) 45 %; Nucleated Red Blood Cells 8 /100 WBC (0-0); Reactive Lymphocytes Present; Total Cells Counted 200; WBC 3.4 k/uL (3.8-10.6)
[2019-01-26 06:52] LABS: Glucose,Whole Blood 121 mg/dL (75-99)
[2019-01-26] MEDS: FLUTICASONE 110 MCG INHALER INHALATION SCH ×2 (08:43→20:18)
[2019-01-26] MEDS: FENOFIBRATE 160 MG TAB PO SCH (09:00)
[2019-01-26] MEDS: ATORVASTATIN 80 MG TAB PO SCH (09:00)
[2019-01-26] MEDS: DICYCLOMINE 20 MG TAB PO SCH ×3 (09:00→20:27)
[2019-01-26] MEDS: DIVALPROEX 500 MG TABLET.DR PO SCH ×2 (09:00→20:26)
[2019-01-26] MEDS: GABAPENTIN 300 MG CAP PO SCH ×3 (09:00→20:27)
[2019-01-26] MEDS ORDERED: metFORMIN 500 MG TAB PO SCH (09:00)
[2019-01-26] MEDS: FOLIC ACID-VIT B COMPLEX-VIT C 1 CAP PO SCH (09:03)
--- NOTE | 2019-01-26 10:38 | P.PN ---
Subjective Progress Note Date: 01/26/19 Patient is stable today, with some improvement in his chest pain. No new symptoms. Objective - Vital Signs Vital signs: Vital Signs Temp 98.2 F 01/26/19 09:04 Pulse 77 01/26/19 09:04 Resp 16 01/26/19 09:04 BP 123/72 01/26/19 09:04 Pulse Ox 98 01/26/19 09:04 Intake & Output 01/25/19 01/26/19 01/26/19 18:59 06:59 18:59 Intake Total 650 Balance 650 Weight 93 kg Intake: Intake, IV Titration 270 Amount Sodium Chloride 0.9% 1, 220 000 ml @ 20 mls/hr IV . Q24H TABITHA Rx#:[id number] cefTRIAXone 1 gm In 50 Sodium Chloride 0.9% 50 ml @ 100 mls/hr IVPB Q24H TABITHA Rx#:[id number] Oral 380 Other: # Voids 1 - Constitutional General appearance: Present: no acute distress - EENT Eyes: Present: EOMI ENT: Present: hearing grossly normal, normal oropharynx - Respiratory Respiratory: bilateral: CTA - Cardiovascular Rhythm: regular Heart sounds: normal: S1, S2 - Gastrointestinal General gastrointestinal: Present: normal bowel sounds, soft - Integumentary Integumentary: Present: normal - Neurologic Neurologic: Present: CNII-XII intact - Musculoskeletal Musculoskeletal: Present: strength equal bilaterally - Psychiatric Psychiatric: Present: A&O x's 3, appropriate affect - Labs CBC & Chem 7: 01/26/19 05:52 01/26/19 05:52 Labs: Abnormal Lab Results - Last 24 Hours (Table) 01/25/19 01/25/19 01/25/19 Range/Units 07:17 11:31 16:29 WBC 1.8 L (3.8-10.6) k/uL RBC 2.95 L (4.30-5.90) m/uL Hgb 9.0 L (13.0-17.5) gm/dL Hct 26.2 L (39.0-53.0) % RDW 18.3 H (11.5-15.5) % Plt Count (150-450) k/uL Neutrophils # 0.8 L (1.3-7.7) k/uL Lymphocytes # 0.6 L (1.0-4.8) k/uL Metamyelocytes # (Man) (0) k/uL Nucleated RBCs (0-0) /100 WBC Glucose (74-99) mg/dL POC Glucose (mg/dL) 196 H 164 H (75-99) mg/dL 01/25/19 01/26/19 01/26/19 Range/Units 20:30 05:52 05:52 WBC 3.4 L (3.8-10.6) k/uL RBC 3.45 L (4.30-5.90) m/uL Hgb 10.0 L (13.0-17.5) gm/dL Hct 30.0 L (39.0-53.0) % RDW 17.5 H (11.5-15.5) % Plt Count 39 L (150-450) k/uL Neutrophils # (1.3-7.7) k/uL Lymphocytes # (1.0-4.8) k/uL Metamyelocytes # (Man) 0.07 H (0) k/uL Nucleated RBCs 8 H (0-0) /100 WBC Glucose 125 H (74-99) mg/dL POC Glucose (mg/dL) 155 H (75-99) mg/dL 01/26/19 Range/Units 06:21 WBC (3.8-10.6) k/uL RBC (4.30-5.90) m/uL Hgb (13.0-17.5) gm/dL Hct (39.0-53.0) % RDW (11.5-15.5) % Plt Count (150-450) k/uL Neutrophils # (1.3-7.7) k/uL Lymphocytes # (1.0-4.8) k/uL Metamyelocytes # (Man) (0) k/uL Nucleated RBCs (0-0) /100 WBC Glucose (74-99) mg/dL POC Glucose (mg/dL) 121 H (75-99) mg/dL Microbiology - Last 24 Hours (Table) 01/24/19 20:20 Blood Culture - Preliminary Blood No Growth after 24 hours Assessment and Plan (1) Pancytopenia Narrative/Plan: Counts are fairly stable in the same range. Repeat CBC in citrated tube to show platelet count of 39,000, is felt to be in a safe range as the patient is not having any invasive procedures, obvious bleeding, and is not on any anticoagulation or antiplatelet therapy. As ITP is unlikely, given pancytopenia, and overall hypoproliferative picture, steroids will be discontinued. - The patient has been started on oral leucovorin. Recommend continuation at the same dose as an outpatient. - The patient is still continuing on Depakote. He stated that the admitting service will reduce his dose to try to wean him off gradually. - He has an appointment in the office next week. We will monitor his counts on leucovorin, and with Depakote dose reduction. If there is no improvement in his counts over the next 2-3 weeks, bone marrow will be performed. Current Visit: Yes Status: Acute Priority: High Code(s): D61.818 - OTHER PANCYTOPENIA SNOMED Code(s): 461747266 (2) Chest pain Narrative/Plan: CT of the chest was negative. At this time it is likely that the chest pain is muscular skeletal. He is awaiting cardiology evaluation Current Visit: Yes Status: Acute Code(s): R07.9 - CHEST PAIN, UNSPECIFIED SNOMED Code(s): 59381843 Plan: Okay to discharge from our standpoint whenever felt to be okay for the same by the admitting service
[2019-01-26 12:02] LABS: Glucose,Whole Blood 111 mg/dL (75-99)
[2019-01-26] MEDS: LEUCOVORIN 5 MG TAB PO SCH ×3 (12:13→23:18)
--- NOTE | 2019-01-26 13:48 | ECHOF ---
Referral Reason:chest pain MEASUREMENTS -------- HEIGHT: 175.3 cm WEIGHT: 93.4 kg BP: RVIDd: 3.8 cm (< 3.3) IVSd: 1.5 cm (0.6 - 1.1) LVIDd: 4.0 cm (3.9 - 5.3) LVPWd: 1.3 cm (0.6 - 1.1) IVSs: 1.4 cm LVIDs: 2.9 cm LVPWs: 1.7 cm LAESV Index (A-L): 25.66 ml/m Ao Diam: 2.9 cm (2.0 - 3.7) AV Cusp: 1.9 cm (1.5 - 2.6) LA Diam: 3.6 cm (2.7 - 3.8) MV EXCURSION: 21.020 mm (> 18.000) MV EF SLOPE: 76 mm/s (70 - 150) EPSS: 1.4 cm MV E Estiven: 1.02 m/s MV DecT: 162 ms MV A Estiven: 0.57 m/s MV E/A Ratio: 1.80 AV maxP.80 mmHg AV maxP.80 mmHg AV meanP.83 mmHg FINDINGS -------- Sinus rhythm. This was a technically adequate study. The left ventricular size is normal. There is mild concentric left ventricular hypertrophy. Overa ll left ventricular systolic function is normal with, an EF between 55 - 60 %. The diastolic fillin g pattern is normal for the age of the patient 7.84. The right ventricle is mild to moderately enlarged. Normal LA size by volume 22+/-6 ml/m2. The right atrial size is normal. Interatrial and interventricular septum intact. The aortic valve is trileaflet and appears structurally normal. There is no evidence of aortic regu rgitation. There is no evidence of aortic stenosis. There is trace mitral regurgitation. Trace tricuspid regurgitation present. There is no evidence of pulmonary hypertension. Unable to estimate RVSP due to inadequate TR jet spectral doppler profile. There is no pulmonic regurgitation present. The aortic root size is normal. IVC Not well visulized. There is no pericardial effusion. CONCLUSIONS -------- 1. Sinus rhythm. 2. This was a technically adequate study. 3. The left ventricular size is normal. 4. There is mild concentric left ventricular hypertrophy. 5. Overall left ventricular systolic function is normal with, an EF between 55 - 60 %. 6. The diastolic filling pattern is normal for the age of the patient 7.84 7. The right ventricle is mild to moderately enlarged. 8. Normal LA size by volume 22+/-6 ml/m2. 9. The right atrial size is normal. 10. Interatrial and interventricular septum intact. 11. The aortic valve is trileaflet and appears structurally normal. 12. There is no evidence of aortic regurgitation. 13. There is no evidence of aortic stenosis. 14. There is trace mitral regurgitation. 15. Trace tricuspid regurgitation present. 16. There is no evidence of pulmonary hypertension. 17. Unable to estimate RVSP due to inadequate TR jet spectral doppler profile. 18. There is no pulmonic regurgitation present. 19. The aortic root size is normal. 20. IVC Not well visulized. 21. There is no pericardial effusion. CIGAR INSPECTOR: Aleyda Pearce RDCS
--- NOTE | 2019-01-26 14:07 | P.PN ---
Subjective Progress Note Date: 01/26/19 Fransisco Burnham is a 48-year-old male who presented to [facility] emergency room with a chief complaint of chest pain patient describes a sharp pain in the left side of his chest that started on the day prior to admission and has been on and off each episode lasted for a few seconds to a few minutes there was no accompanying shortness of breath, nausea, vomiting, or sweating. There is no radiation of the pain. Patient states that he has a known history of coronary artery disease with angina and previous history of VT he states that he had cardiac catheterization in 2004 patient denies any knowledge of any stent placement or angioplasty. His cardiac risk factors include history of hypertension, history of hyperlipidemia, history of diabetes Meliitus and history of smoking, no clear history of early family history of myocardial infarction. Patient was recently admitted to [facility] at that time he had evidence of pancytopenia he was seen by hematology he had evidence of splenomegaly and pancytopenia was thought to be related to medications especially Depakote he was told to take Folic Acid which she did not do as outpatient due to cost. On 01/26/2019 patient was seen and examined on the telemetry floor he is alert and oriented 3 in no apparent distress, there is no fever or chills no headache or dizziness no chest pain no shortness of breath no cough no nausea or vomiting no abdominal pain no diarrhea and no urinary symptoms, pancytopenia slightly improving, dose of Depakote decreased from 3 times a day to twice a day, will wean off gradually and increase dose of Effexor if needed, patient stated that on previous occasion when his physician try to wean him off Depakote he had severe depression with suicidal ideation. Objective - Vital Signs Vital signs: Vital Signs Temp 97.8 F 01/26/19 12:28 Pulse 74 01/26/19 12:28 Resp 20 01/26/19 12:28 BP 111/69 01/26/19 12:28 Pulse Ox 98 01/26/19 12:28 Intake & Output 01/25/19 01/26/19 01/26/19 18:59 06:59 18:59 Intake Total 650 Balance 650 Weight 93 kg Intake: Intake, IV Titration 270 Amount Sodium Chloride 0.9% 1, 220 000 ml @ 20 mls/hr IV . Q24H [facility] Rx#:[id number] cefTRIAXone 1 gm In 50 Sodium Chloride 0.9% 50 ml @ 100 mls/hr IVPB Q24H [facility] Rx#:[id number] Oral 380 Other: # Voids 1 - Exam In general patient is alert and oriented 3 in no apparent distress HEENT head normocephalic and atraumatic Neck is supple no JVD no goiter no lymphadenopathy Chest exam reveals a few scattered crackles bilaterally no wheezing Cardiac exam reveals regular heart sounds S1 and S2 no gallops no murmurs Abdomen is soft nontender no organomegaly with normal bowel sounds Extremity exam reveals no edema no cyanosis or clubbing Neurological examination reveals no gross focal deficit - Labs CBC & Chem 7: 01/26/19 05:52 01/26/19 05:52 Labs: Abnormal Lab Results - Last 24 Hours (Table) 01/25/19 01/25/19 01/26/19 Range/Units 16:29 20:30 05:52 WBC 3.4 L (3.8-10.6) k/uL RBC 3.45 L (4.30-5.90) m/uL Hgb 10.0 L (13.0-17.5) gm/dL Hct 30.0 L (39.0-53.0) % RDW 17.5 H (11.5-15.5) % Plt Count 39 L (150-450) k/uL Metamyelocytes # (Man) 0.07 H (0) k/uL Nucleated RBCs 8 H (0-0) /100 WBC Glucose (74-99) mg/dL POC Glucose (mg/dL) 164 H 155 H (75-99) mg/dL 01/26/19 01/26/19 01/26/19 Range/Units 05:52 06:21 12:00 WBC (3.8-10.6) k/uL RBC (4.30-5.90) m/uL Hgb (13.0-17.5) gm/dL Hct (39.0-53.0) % RDW (11.5-15.5) % Plt Count (150-450) k/uL Metamyelocytes # (Man) (0) k/uL Nucleated RBCs (0-0) /100 WBC Glucose 125 H (74-99) mg/dL POC Glucose (mg/dL) 121 H 111 H (75-99) mg/dL Microbiology - Last 24 Hours (Table) 01/24/19 20:20 Blood Culture - Preliminary Blood No Growth after 24 hours Assessment and Plan Plan: #1 episode of chest pain not typical for angina however due to previous history of coronary artery disease Will consult cardiology for evaluation, troponin 2 s ets are negative so far, EKG reveals normal sinus rhythm with nonspecific ST and T-wave abnormality #2 pancytopenia input from hematology reviewed, with decreased dose of Depakote to 500 mg twice a day instead of 3 times a day Will monitor closely will try to wean off Depakote gradually Folic acid acid was added to her regimen #3 history of depression with suicidal ideation patient states that he has been on Depakote for mood Stabilizer for almost 20 years he states that about 7 years ago his physician try to wean him off Depakote but that was unsuccessful due to severe depression and suicidal ideation #4 underlying history of hypertension well-controlled on current medications #5 underlying history of diabetes mellitus with check hemoglobin A1c to assess control #6 underlying history of hyperlipidemia maintained on Lipitor. Medication and labs were reviewed please see orders will follow in a.m. Continue to monitor possible discharge to home tomorrow
[2019-01-26 17:04] LABS: Glucose,Whole Blood 117 mg/dL (75-99)
[2019-01-26 20:26] VITALS: RESP 18
[2019-01-26] MEDS: MONTELUKAST 10 MG TAB PO SCH (20:26)
[2019-01-26] MEDS: METOPROLOL SUCCINATE (ER) 25 MG TAB.ER.24H PO SCH (20:26)
[2019-01-26] MEDS: traZODone HCL 50 MG TAB PO SCH (20:27)
[2019-01-26] MEDS: VENLAFAXINE HCL ER 150 MG CAP PO SCH (20:29)
[2019-01-26 20:30] LABS: Glucose,Whole Blood 176 mg/dL (75-99)
[2019-01-26] MEDS: SODIUM CHLORIDE 0.9% 1,000 ML IV SCH (21:51)
--- NOTE | 2019-01-27 00:20 | CONS ---
CONSULTATION CHIEF COMPLAINT: Chest pain. Mr. Burnham is a 48-year-old gentleman with history of coronary artery disease that follows with Dr. Roc Menchaca on a regular basis, presented to hospital with chest pain. Patient had a cardiac catheterization December of 2017 that did not reveal significant CAD. His chest discomfort is sharp, precordial, mild intensity, unrelated to exertion. There was no diaphoresis. It was somewhat musculoskeletal at times. He had a CT scan of the chest that showed a normal aorta. He has had 3 sets of troponins that are all within normal limits. EKG does not reveal ischemic changes. At the time of my evaluation this morning patient appears comfortable at rest and is free of symptoms. PAST MEDICAL HISTORY: Significant for diabetes, dyslipidemia, hypertension. MEDICATIONS: Include Lipitor 80 daily, albuterol, fenofibrate, Bentyl, Effexor, Singulair, Toprol, Neurontin, Glucophage, leucovorin. ALLERGIES: The patient is allergic to IBUPROFEN, MOLD, NAPROSYN. FAMILY HISTORY: Negative for premature coronary artery disease. SOCIAL HISTORY: Negative for smoking, EtOH abuse, or drug abuse. REVIEW OF SYSTEMS: HEENT is unremarkable. Cardiac as described above. Respiratory as described above, GI negative. negative. Allergy negative. Skin negative. Musculoskeletal negative. Endocrine negative. Derm negative. Constitutional negative. Oncological negative. Rest of the system review is not relevant. EXAM: Comfortable at rest. Vital signs are stable. There is no jugular venous distention. Carotid upstroke is normal. There is no bruit. Chest exam reveals good air entry bilaterally. Heart exam reveals first and second heart sounds. No gallop. No murmur. No rub. Abdomen is soft, nontender. Exam of extremities did not reveal any edema. Peripheral pulses are felt. LABS: Show a hemoglobin of 10, platelet count is low at 39, creatinine is 0.8. ASSESSMENT: Precordial chest pain, sharp, atypical. Had normal coronaries last year. Does not require any further evaluation. I will obtain a 2D echo on him. MMODL / IJN: [id number] /
[2019-01-27 06:57] LABS: Glucose,Whole Blood 79 mg/dL (75-99)
[2019-01-27] MEDS: INSULIN ASPART (NovoLOG) 100 UNIT/ML VIAL SQ SCH ×2 (07:05→11:10)
[2019-01-27] MEDS: FLUTICASONE 110 MCG INHALER INHALATION SCH (07:28)
[2019-01-27] MEDS: LEUCOVORIN 5 MG TAB PO SCH (08:36)
[2019-01-27] MEDS: GABAPENTIN 300 MG CAP PO SCH (08:36)
[2019-01-27] MEDS: ATORVASTATIN 80 MG TAB PO SCH (08:36)
[2019-01-27] MEDS: FENOFIBRATE 160 MG TAB PO SCH (08:36)
[2019-01-27] MEDS: FOLIC ACID-VIT B COMPLEX-VIT C 1 CAP PO SCH (08:36)
[2019-01-27] MEDS: DICYCLOMINE 20 MG TAB PO SCH (08:36)
[2019-01-27] MEDS: DIVALPROEX 500 MG TABLET.DR PO SCH (08:36)
[2019-01-27 11:15] LABS: Glucose,Whole Blood 73 mg/dL (75-99)
[2019-01-27 11:45] VITALS: BP 108/57; PULSE 74; TEMP 98.2
--- NOTE | 2019-01-27 11:52 | PN ---
PROGRESS NOTE This is a 48-year-old gentleman who was admitted to hospital with chest pain and ruled out for myocardial infarction. Had an echocardiogram yesterday that showed normal LV systolic function. His chest discomfort is sharp, atypical. This morning he is doing well and is ready to be discharged home. On exam comfortable at rest. Vital signs are stable. There is no jugular venous distention. Chest exam reveals good air entry bilaterally. Heart exam reveals first and second heart sounds. No gallop. Exam of extremities did not reveal any edema. Peripheral pulses are felt. ASSESSMENT: Precordial chest pain, atypical. Echo looks good. Please discharge the patient home. MMODL / IJN: [id number] /
--- NOTE | 2019-01-27 12:17 | P.DS ---
Providers Date of admission: 01/24/19 21:46 Expected date of discharge: 01/27/19 Attending physician: Veronika Dotson Consults: 01/24/19 20:23 Consult Physician Routine Consulting Provider: Bay Tolliver Consult Reason/Comments: pancytopenia Do you want consulting provider notified?: Yes 01/25/19 13:09 Consult Physician Routine Consulting Provider: Rodrigo Menchaca Consult Reason/Comments: chest pain Do you want consulting provider notified?: Yes Primary care physician: Veronika Dotson [facility] Course: Discharge diagnosis #1 episode of chest pain not typical for angina however due to previous history of coronary artery disease Will consult cardiology for evaluation, troponin 2 sets are negative so far, EKG reveals normal sinus rhythm with nonspecific ST and T-wave abnormality. Per cardiology services patient underwent hernia/year that showed normal coronaries does not require any further intervention. 2-D echo completed showing an EF of 55-60%. #2 pancytopenia input from hematology reviewed, with decreased dose of Depakote to 500 mg twice a day instead of 3 times a day Will monitor closely will try to wean off Depakote gradually Folic acid acid was added to her regime. cardiology services oral leucovorin has been added patient will be DC'd on his medication. Depakote has been decreased patient to follow-up outpatient for further monitoring #3 history of depression with suicidal ideation patient states that he has been on Depakote for mood Stabilizer for almost 20 years he states that about 7 years ago his physician try to wean him off Depakote but that was unsuccessful due to severe depression and suicidal ideation #4 underlying history of hypertension well-controlled on current medications #5 underlying history of diabetes mellitus with check hemoglobin A1c to assess control #6 underlying history of hyperlipidemia maintained on Lipitor. Hospital course Fransisco Burnham is a 48-year-old male who presented to [facility] emergency room with a chief complaint of chest pain patient describes a sharp pain in the left side of his chest that started on the day prior to admission and has been on and off each episode lasted for a few seconds to a few minutes there was no accompanying shortness of breath, nausea, vomiting, or sweating. There is no radiation of the pain. Patient states that he has a known history of coronary artery disease with angina and previous history of AK he states that he had cardiac catheterization in 2004 patient denies any knowledge of any stent placement or angioplasty. His cardiac risk factors include history of hypertension, history of hyperlipidemia, history of diabetes Meliitus and history of smoking, no clear history of early family history of myocardial infarction. Patient was recently admitted to [facility] at that time he had evidence of pancytopenia he was seen by hematology he had evidence of splenomegaly and pancytopenia was thought to be related to medications especially Depakote he was told to take Folic Acid which she did not do as outpatient due to cost. On 01/26/2019 patient was seen and examined on the telemetry floor he is alert and oriented 3 in no apparent distress, there is no fever or chills no headache or dizziness no chest pain no shortness of breath no cough no nausea or vomiting no abdominal pain no diarrhea and no urinary symptoms, pancytopenia slightly improving, dose of Depakote decreased from 3 times a day to twice a day, will wean off gradually and increase dose of Effexor if needed, patient stated that on previous occasion when his physician try to wean him off Depakote he had severe depression with suicidal ideation. On 01/27/2018 patient is alert and oriented 3. Patient denies chest pain or shortness of breath. Patient denies nausea vomiting or diarrhea. Patient urinary burning or frequency. Patient expresses that he is very eager to go home. Patient has been started on oral leucovorin per oncology services. Depokat has been decreased to twice a day. Patient to follow-up outpatient for further monitoring. I performed an examination of the patient and discussed their management with the Nurse Practitioner. I have reviewed the Nurse Practitioner's notes and agree with the documented findings and plan of care Patient Condition at Discharge: Stable Plan - Discharge Summary New Discharge Prescriptions: New Leucovorin 10 mg PO Q8HR 20 Days #60 tablet Divalproex [Depakote] 500 mg PO BID 30 Days #60 tablet. Continue metFORMIN HCL [Glucophage] 500 mg PO DAILY Montelukast Sodium [Singulair] 10 mg PO HS Albuterol Inhaler [Ventolin Hfa Inhaler] 2 puff INHALATION RT-Q6H PRN PRN Reason: Shortness Of Breath Metoprolol Succinate (ER) [Toprol XL] 25 mg PO HS Atorvastatin [Lipitor] 80 mg PO DAILY traZODone HCL 150 mg PO HS Venlafaxine HCl [Effexor XR] 150 mg PO HS Gabapentin [Neurontin] 300 mg PO TID Fenofibrate Nanocrystallized [Fenofibrate] 145 mg PO DAILY Beclomethasone Dipropionate [Qvar 80 mcg] 2 puff INHALATION RT-BID Nitroglycerin Sl Tabs [Nitrostat] 0.4 mg SUBLINGUAL Q5M PRN PRN Reason: Chest Pain Dicyclomine [Bentyl] 20 mg PO TID Folic Acid-Vit B Complex-Vit C [Nephrocaps] 1 mg PO DAILY #30 capsule Discontinued Divalproex Sodium 500 mg PO TID Discharge Medication List metFORMIN HCL [Glucophage] 500 mg PO DAILY 06/10/14 [History] Montelukast Sodium [Singulair] 10 mg PO HS 06/01/16 [History] Albuterol Inhaler [Ventolin Hfa Inhaler] 2 puff INHALATION RT-Q6H PRN 10/15/17 [History] Atorvastatin [Lipitor] 80 mg PO DAILY 10/15/17 [History] Beclomethasone Dipropionate [Qvar 80 mcg] 2 puff INHALATION RT-BID 10/15/17 [History] Fenofibrate Nanocrystallized [Fenofibrate] 145 mg PO DAILY 10/15/17 [History] Gabapentin [Neurontin] 300 mg PO TID 10/15/17 [History] Metoprolol Succinate (ER) [Toprol XL] 25 mg PO HS 10/15/17 [History] Venlafaxine HCl [Effexor XR] 150 mg PO HS 10/15/17 [History] traZODone HCL 150 mg PO HS 10/15/17 [History] Dicyclomine [Bentyl] 20 mg PO TID 01/10/19 [History] Nitroglycerin Sl Tabs [Nitrostat] 0.4 mg SUBLINGUAL Q5M PRN 01/10/19 [History] Folic Acid-Vit B Complex-Vit C [Nephrocaps] 1 mg PO DAILY #30 capsule 01/15/19 [Rx] Leucovorin 10 mg PO Q8HR 20 Days #60 tablet 01/26/19 [Rx] Divalproex [Depakote] 500 mg PO BID 30 Days #60 tablet. 01/27/19 [Rx] Follow up Appointment(s)/Referral(s): Veronika Dotson MD [Primary Care Provider] - 1-2 days Guille Rojas MD [STAFF PHYSICIAN] - 1 Week Discharge Disposition: HOME SELF-CARE
[2019-01-28 09:40] LABS: Hemoglobin A1C 6.3 % (4.0-6.0)
== END 2019-01-27 13:15 | disposition home or self-care (01) ==
LOC: EC 19:17 → 1SOBS 21:46 → 3SCARD 01-25 18:08
PROVIDERS: ADMIT Internal Medicine; ATTEND Internal Medicine
DX: R07.89 Other chest pain (principal); R07.2 Precordial pain; I25.10 Atherosclerotic heart disease of native coronary artery without angina pectoris; R10.9 Unspecified abdominal pain; D61.818 Other pancytopenia; F31.9 Bipolar disorder, unspecified; I10 Essential (primary) hypertension; E78.5 Hyperlipidemia, unspecified; I25.2 Old myocardial infarction; J45.909 Unspecified asthma, uncomplicated; M19.90 Unspecified osteoarthritis, unspecified site; K21.9 Gastro-esophageal reflux disease without esophagitis; R16.1 Splenomegaly, not elsewhere classified; G47.30 Sleep apnea, unspecified; Z99.89 Dependence on other enabling machines and devices; T45.8X6A Underdosing of other primarily systemic and hematological agents, initial encounter; Z91.128 Patient's intentional underdosing of medication regimen for other reason; G89.29 Other chronic pain; M54.9 Dorsalgia, unspecified; M50.20 Other cervical disc displacement, unspecified cervical region; E11.649 Type 2 diabetes mellitus with hypoglycemia without coma; F39 Unspecified mood [affective] disorder; F41.9 Anxiety disorder, unspecified; F43.10 Post-traumatic stress disorder, unspecified; G62.9 Polyneuropathy, unspecified; Z87.442 Personal history of urinary calculi; Z87.891 Personal history of nicotine dependence; Z87.19 Personal history of other diseases of the digestive system; Z96.698 Presence of other orthopedic joint implants; Z96.651 Presence of right artificial knee joint; Z95.5 Presence of coronary angioplasty implant and graft; Z79.899 Other long term (current) drug therapy; Z79.84 Long term (current) use of oral hypoglycemic drugs; Z79.51 Long term (current) use of inhaled steroids; Z88.6 Allergy status to analgesic agent; Z91.02 Food additives allergy status; Z88.8 Allergy status to other drugs, medicaments and biological substances; Z91.018 Allergy to other foods; Z91.048 Other nonmedicinal substance allergy status; Z81.8 Family history of other mental and behavioral disorders; Z83.2 Family history of diseases of the blood and blood-forming organs and certain disorders involving the immune mechanism; Z83.3 Family history of diabetes mellitus; Z82.5 Family history of asthma and other chronic lower respiratory diseases; Z80.1 Family history of malignant neoplasm of trachea, bronchus and lung; Z83.79 Family history of other diseases of the digestive system; Z82.49 Family history of ischemic heart disease and other diseases of the circulatory system
CPT/HCPCS: 96376 ×2; 96365; 96375; 99285; 36415; 94640 ×5; 93005; 93306; 83880; 80061; 80053 ×2; 82550; 83690; 83735; 84484 ×2; 85025 ×3; 85610; 85730; 81001; 87040; 80306; 87086; 83036; 71046; 71275; G0378 ×5; G0480; J1100 ×3; J0696 ×3; Q9967; 80320

== ENCOUNTER 2019-02-14 19:56 | Inpatient (IN) | payer MEDICARE, OTHER ==
[2019-02-14] MEDS ORDERED: MORPHINE SULFATE 4 MG/ML SYRINGE IV STA (21:29)
[2019-02-14] MEDS ORDERED: SODIUM CHLORIDE 0.9% 1,000 ML IV STA (21:29)
[2019-02-14] MEDS ORDERED: ONDANSETRON 4 MG/2 ML VIAL IVP STA (21:29)
[2019-02-14 22:39] LABS: Anisocytosis Moderate; Hypochromasia Slight; MCH 28.6 pg (25.0-35.0); MCHC 34.4 g/dL (31.0-37.0); MCV 83.2 fL (80.0-100.0); Mean Platelet Volume 7.2; Microcytosis Slight; Poikilocytosis Moderate; RDW 20.3 % (11.5-15.5)
[2019-02-14 22:48] LABS: HGB 6.9 gm/dL (13.0-17.5)
[2019-02-14 22:49] LABS: ALT 32 U/L (21-72); AST 24 U/L (17-59); African American GFR (CKD) >90 (>60 ml/min/1.73 sqM); Albumin 3.8 g/dL (3.5-5.0); Alkaline Phosphatase 55 U/L (38-126); Anion Gap 12 mmol/L; Blood Urea Nitrogen 13 mg/dL (9-20); Carbon Dioxide 23 mmol/L (22-30); Chloride 105 mmol/L (98-107); Glucose 125 mg/dL (74-99); HCT 19.9 % (39.0-53.0); Sodium 140 mmol/L (137-145); Total Bilirubin 0.9 mg/dL (0.2-1.3); Total Protein 6.3 g/dL (6.3-8.2)
[2019-02-14 22:55] LABS: Appearance,Urine Clear (Clear); Bilirubin,Urine Negative (Negative); Blood,Urine Trace (Negative); Color,Urine Yellow; Glucose,Urine (UA) Negative (Negative); Ketones,Urine Negative (Negative); Leukocyte Esterase,Urine Negative (Negative); Mucus,Urine Rare /hpf; Nitrite,Urine Negative (Negative); Protein,Urine Negative (Negative); RBC,Urine 12 /hpf (0-5); Specific Gravity,Urine 1.017 (1.001-1.035); WBC,Urine <1 /hpf (0-5)
--- NOTE | 2019-02-14 23:17 | CT ---
EXAMINATION TYPE: CT abdomen pelvis w con DATE OF EXAM: 02/14/2019 COMPARISON: 09/16/2018 HISTORY: Patient presents with abdominal pain. CT DLP: 1126 mGycm Automated exposure control for dose reduction was used. TECHNIQUE: Helical acquisition of images was performed from the lung bases through the pelvis. CONTRAST: Performed without Oral Contrast and with IV Contrast, patient injected with 100mL mL of Isovue 300. FINDINGS: Lung bases are clear. There is no pleural effusion. Stomach appears normal. Spleen is enlarged and me asures 15.5 cm. There is no evidence of pancreatic mass. Bile ducts are not dilated. Gallbladder appe ars normal. There is no adrenal mass. Kidneys have normal size. There is mild left-sided hydronephrosis. There is a 4 mm calculus at the left ureteral pelvic junction. There is minimal left side perinephric edema. There is no retroperitoneal adenopathy. Bladder distends smoothly. There is no inguinal hernia. There is prostatic calcification. There is no free fluid in the pelvis. Appendix appears normal. There is no evidence of bowel obstruction. There is no mesenteric edema. There is no ascites or free air. Lumb ar spine is intact. There is no bony destructive process. Disc spaces are normal. Bony pelvis is inta ct. There is neural stimulator over the lower lumbar spine. There is L5-S1 disc space narrowing with endplate spur formation and minimal vacuum disc. IMPRESSION: THERE IS MILD LEFT-SIDED HYDRONEPHROSIS WITH OBSTRUCTING CALCULUS AT THE LEFT URETEROPELVIC JUNCTION THAT IS A CHANGE COMPARED TO OLD EXAM. MILD FATTY INFILTRATION OF THE LIVER. MILD SPLENOMEGALY UNCHANGED.
[2019-02-14] MEDS ORDERED: NALOXONE 0.4 MG/ML 1 ML VIAL IV PRN (23:42)
[2019-02-14] MEDS ORDERED: ONDANSETRON 4 MG/2 ML VIAL IVP PRN (23:42)
--- NOTE | 2019-02-14 23:42 | ED ---
Abdominal Pain HPI - General Chief Complaint: Abdominal Pain Stated Complaint: Abd Pain Time Seen by Provider: 02/14/19 20:25 Source: patient Mode of arrival: ambulatory Limitations: no limitations - History of Present Illness Initial Comments: The patient is a 48-year-old male who presents to the emergency department with left lower quadrant abdominal pain. The patient reports that his symptoms were sudden onset around 5 PM last night. It is described as a sharp shooting pain which radiated down his left leg. He denies any dysuria, hematuria or d ifficulty voiding. He denies any changes in his bowel habits to include constipation, melanotic stools or hematochezia. He did report to a bowel movement prior to coming into the hospital which was somewhat loose in nature. Denies black tarry stools. No ripping or tearing sensation to his back. Denies any fevers or chills. He was supposed to have a colonoscopy a few weeks ago however canceled that because the patient's blood counts have been abnormal. The patient reports he is currently being evaluated for possible leukemia. He sees Dr. Rojas. He is supposed to have a bone marrow biopsy on Sunday. He denies any chest pain or shortness of breath. No abdominal trauma. He is not on any blood thinners. They did think is secondary to his Depakote and so his dose was adjusted. There are no other alleviating, precipitating or modifying factors - Related Data Home Medications Medication Instructions Recorded Confirmed metFORMIN HCL [Glucophage] 500 mg PO PC-SUPPER 06/10/14 02/14/19 Montelukast Sodium [Singulair] 10 mg PO HS 06/01/16 02/14/19 Albuterol Inhaler [Ventolin Hfa 2 puff INHALATION RT-Q6H PRN 10/15/17 02/14/19 Inhaler] Atorvastatin [Lipitor] 80 mg PO PC-SUPPER 10/15/17 02/14/19 Beclomethasone Dipropionate [Qvar 2 puff INHALATION RT-BID 10/15/17 02/14/19 80 mcg] Fenofibrate Nanocrystallized 145 mg PO PC-SUPPER 10/15/17 02/14/19 [Fenofibrate] Gabapentin [Neurontin] 300 mg PO TID 10/15/17 02/14/19 Metoprolol Succinate (ER) [Toprol 25 mg PO HS 10/15/17 02/14/19 XL] Venlafaxine HCl [Effexor XR] 150 mg PO HS 10/15/17 02/14/19 traZODone HCL 150 mg PO HS 10/15/17 02/14/19 Dicyclomine [Bentyl] 20 mg PO TID 01/10/19 02/14/19 Nitroglycerin Sl Tabs [Nitrostat] 0.4 mg SUBLINGUAL Q5M PRN 01/10/19 02/14/19 Previous Rx's Medication Instructions Recorded Leucovorin 10 mg PO Q8HR 20 Days #60 tablet 01/26/19 Divalproex [Depakote] 500 mg PO BID tablet. 01/27/19 Allergies Allergy/AdvReac Type Severity Reaction Status Date / Time naproxen [From Naprosyn] Allergy Unknown Rash/Hives Verified 02/14/19 21:23 adhesive tape Allergy Rash/Hives Verified 02/14/19 21:23 ibuprofen Allergy Itching Verified 02/14/19 21:23 mold Allergy Unknown Verified 02/14/19 21:23 carrot AdvReac Dyspnea Verified 02/14/19 21:23 chocolate flavor AdvReac Dyspnea Verified 02/14/19 21:23 grass pollen-perennial rye, AdvReac Dyspnea Verified 02/14/19 21:23 standar Review of Systems ROS Statement: Those systems with pertinent positive or pertinent negative responses have been documented in the HPI. ROS Other: All systems not noted in ROS Statement are negative. Past Medical History Past Medical History: Asthma, Chest Pain / Angina, Diabetes Mellitus, GERD/Reflux, GI Bleed, Hyperlipidemia, Hypertension, Myocardial Infarction ([place]), Osteoarthritis ([place]), Sleep Apnea/CPAP/BIPAP Additional Past Medical History / Comment(s): CURRENT: chronic back and neck pain(has lumbar and cervial nuero stimulators), herniated discs in the neck and the back. mood disturbance.occ ringing in ears, " in [address] me he heard a soft heart murmur', uses cpap machine, neuropathy in feet Last Myocardial Infarction Date:: 2004 History of Any Multi-Drug Resistant Organisms: None Reported Past Surgical History: Heart Catheterization With Stent, Hernia Repair, Joint Replacement Additional Past Surgical History / Comment(s): rt knee arthroscopy x3, lt knee arthroscopy last date 2012,total rt knee replacement and a revision sx cardiac stent x1 2004, stent placed for kidney stone 07/04/2016. Kidney stent has been removed. COLONOSCOPY. neuro stimulator implant cervial and recent another one in lumbar area Past Anesthesia/Blood Transfusion Reactions: No Reported Reaction Date of Last Stent Placement:: 2004 Past Psychological History: Anxiety, Bipolar, Depression, PTSD Smoking Status: Current every day smoker Past Alcohol Use History: Occasional Past Drug Use History: None Reported - Past Family History Father Family Medical History: Congestive Heart Failure (CHF), Deep Vein Thrombosis (D [place]), Myocardial Infarction ([place]), Pulmonary Embolus Additional Family Medical History / Comment(s): [place] at age 38. "hole in colon" Mother Family Medical History: Cancer, COPD, Diabetes Mellitus, Hyperlipidemia Additional Family Medical History / Comment(s): breast and lung cancer Sister(s) Family Medical History: Diabetes Mellitus Additional Family Medical History / Comment(s): bi-polar, anxiety. hysterectomy Brother(s) History Unknown: Yes General Exam Limitations: no limitations General appearance: alert, in no apparent distress Head exam: Present: atraumatic, normocephalic, normal inspection Eye exam: Present: normal appearance, PERRL, EOMI. Absent: scleral icterus, conjunctival injection, periorbital swelling ENT exam: Present: normal exam, mucous membranes moist Neck exam: Present: normal inspection. Absent: tenderness, meningismus, lymphadenopathy Respiratory exam: Present: normal lung sounds bilaterally. Absent: respiratory distress, wheezes, rales, rhonchi, stridor Cardiovascular Exam: Present: regular rate, normal rhythm, normal heart sounds. Absent: systolic murmur, diastolic murmur, rubs, gallop, clicks GI/Abdominal exam: Present: soft, normal bowel sounds. Absent: distended, tenderness, guarding, rebound, rigid Extremities exam: Present: normal inspection, full ROM, normal capillary refill. Absent: tenderness, pedal edema, joint swelling, calf tenderness Back exam: Present: normal inspection Neurological exam: Present: alert, oriented X3, CN II-XII intact Psychiatric exam: Present: normal affect, normal mood Skin exam: Present: warm, dry, intact, normal color. Absent: rash Course Vital Signs 02/14/19 02/14/19 02/14/19 20:20 22:00 23:00 Temperature 99.1 F Pulse Rate 104 H 91 89 Pulse Rate [ Pulse Oximetery ] Respiratory 18 18 19 Rate Blood Pressure 113/63 109/64 114/59 Blood Pressure [Right Arm] O2 Sat by Pulse 98 97 97 Oximetry 02/15/19 02/15/19 00:00 00:51 Temperature 97.9 F Pulse Rate 92 Pulse Rate [ 89 Pulse Oximetery ] Respiratory 19 16 Rate Blood Pressure 110/61 Blood Pressure 125/63 [Right Arm] O2 Sat by Pulse 98 97 Oximetry Medical Decision Making - Medical Decision Making Upon arrival the patient is placed into room 17. He is hooked up to continuous pulse ox and cardiac monitoring. There are history of physical exam was performed. Peripheral IV was established. The patient was given a liter bolus of 0.9% normal saline. I also provided him with 4 g of morphine for his pain and 4 mg of Zofran for his nausea. Laboratory studies were conducted. The patient was sent for a CT of his abdomen and pelvis. Upon return of the results they are reviewed and discussed with the patient. The patient does have a Whipple to count of 1.3. Hemoglobin is 6.9. Platelets 13. Urinalysis shows trace blood with [address] of abdomen and pelvis demonstrates mild left-sided hydronephrosis with obstructing calculus at the left ureteropelvic junction. Mild fatty infiltration of the liver. Mild splenomegaly. The patient is reevaluated and has had great improvement in his pain. I did inform him that I recommend a blood transfusion because of this low hemoglobin. The patient is typed and screened. I did order 1 unit of packed red blood cells. I did recommend hospital admission for evaluation by urology as well as Dr. chong. The patient did agree. I called and discussed the case with Dr. Dotson who did accept admission. Bridging orders are placed and the patient was transported to floor in stable condition - Lab Data Result diagrams: 02/15/19 06:37 02/15/19 06:37 Lab Results 02/14/19 02/14/19 02/14/19 Range/Units 21:57 21:57 21:57 WBC 1.3 L* (3.8-10.6) k/uL RBC 2.40 L (4.30-5.90) m/uL Hgb 6.9 L* (13.0-17.5) gm/dL Hct 19.9 L* (39.0-53.0) % MCV 83.2 (80.0-100.0) fL MCH 28.6 (25.0-35.0) pg MCHC 34.4 (31.0-37.0) g/dL RDW 20.3 H (11.5-15.5) % Plt Count 13 L* (150-450) k/uL Neutrophils % (Manual) 24 % Band Neutrophils % 2 % Lymphocytes % (Manual) 62 % Monocytes % (Manual) 8 % Eosinophils % (Manual) 2 % Metamyelocytes % 2 % 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 Neutrophils # (Manual) 0.30 L* (1.3-7.7) k/uL Lymphocytes # (Manual) 0.81 L (1.0-4.8) k/uL Monocytes # (Manual) 0.10 (0-1.0) k/uL Eosinophils # (Manual) 0.03 (0-0.7) k/uL Metamyelocytes # (Man) 0.03 H (0) k/uL Nucleated RBCs 6 H (0-0) /100 WBC Manual Slide Review Performed Hypochromasia Slight Poikilocytosis Moderate Anisocytosis Moderate Microcytosis Slight Sodium 140 (137-145) mmol/L Potassium 4.0 (3.5-5.1) mmol/L Chloride 105 (98-107) mmol/L Carbon Dioxide 23 (22-30) mmol/L Anion Gap 12 mmol/L BUN 13 (9-20) mg/dL Creatinine 0.74 (0.66-1.25) mg/dL Est GFR (CKD-EPI)AfAm >90 (>60 ml/min/1.73 sqM) Est GFR (CKD-EPI)NonAf >90 (>60 ml/min/1.73 sqM) Glucose 125 H (74-99) mg/dL Plasma Lactic Acid Cory 1.7 (0.7-2.0) mmol/L Calcium 9.0 (8.4-10.2) mg/dL Total Bilirubin 0.9 (0.2-1.3) mg/dL AST 24 (17-59) U/L ALT 32 (21-72) U/L Alkaline Phosphatase 55 (38-126) U/L Total Protein 6.3 (6.3-8.2) g/dL Albumin 3.8 (3.5-5.0) g/dL Lipase 74 (23-300) U/L Urine Color Urine Appearance (Clear) Urine pH (5.0-8.0) Ur Specific R[place]el (1.001-1.035) Urine Protein (Negative) Urine Glucose (UA) (Negative) Urine Ketones (Negative) Urine Blood (Negative) Urine Nitrite (Negative) Urine Bilirubin (Negative) Urine Urobilinogen (<2.0) mg/dL Ur Leukocyte Esterase (Negative) Urine RBC (0-5) /hpf Urine WBC (0-5) /hpf Urine Mucus (None) /hpf Stool Occult Blood (Negative) 02/14/19 02/14/19 Range/Units 22:37 23:35 WBC (3.8-10.6) k/uL RBC (4.30-5.90) m/uL Hgb (13.0-17.5) gm/dL Hct (39.0-53.0) % MCV (80.0-100.0) fL MCH (25.0-35.0) pg MCHC (31.0-37.0) g/dL RDW (11.5-15.5) % Plt Count (150-450) k/uL Neutrophils % (Manual) % Band Neutrophils % % Lymphocytes % (Manual) % Monocytes % (Manual) % Eosinophils % (Manual) % Metamyelocytes % % Neutrophils # Neutrophils # (Manual) (1.3-7.7) k/uL Lymphocytes # (Manual) (1.0-4.8) k/uL Monocytes # (Manual) (0-1.0) k/uL Eosinophils # (Manual) (0-0.7) k/uL Metamyelocytes # (Man) (0) k/uL Nucleated RBCs (0-0) /100 WBC Manual Slide Review Hypochromasia Poikilocytosis Anisocytosis Microcytosis Sodium (137-145) mmol/L Potassium (3.5-5.1) mmol/L Chloride (98-107) mmol/L Carbon Dioxide (22-30) mmol/L Anion Gap mmol/L BUN (9-20) mg/dL Creatinine (0.66-1.25) mg/dL Est GFR (CKD-EPI)AfAm (>60 ml/min/1.73 sqM) Est GFR (CKD-EPI)NonAf (>60 ml/min/1.73 sqM) Glucose (74-99) mg/dL Plasma Lactic Acid Cory (0.7-2.0) mmol/L Calcium (8.4-10.2) mg/dL Total Bilirubin (0.2-1.3) mg/dL AST (17-59) U/L ALT (21-72) U/L Alkaline Phosphatase (38-126) U/L Total Protein (6.3-8.2) g/dL Albumin (3.5-5.0) g/dL Lipase (23-300) U/L Urine Color Yellow Urine Appearance Clear (Clear) Urine pH 7.0 (5.0-8.0) Ur Specific R[place]el 1.017 (1.001-1.035) Urine Protein Negative (Negative) Urine Glucose (UA) Negative (Negative) Urine Ketones Negative (Negative) Urine Blood Trace H (Negative) Urine Nitrite Negative (Negative) Urine Bilirubin Negative (Negative) Urine Urobilinogen 12.0 (<2.0) mg/dL Ur Leukocyte Esterase Negative (Negative) Urine RBC 12 H (0-5) /hpf Urine WBC <1 (0-5) /hpf Urine Mucus Rare H (None) /hpf Stool Occult Blood Negative (Negative) Disposition Clinical Impression: Pancytopenia, Ureteral stone, Abdominal pain Disposition: ADMITTED IP TO THIS [facility] Condition: Serious Is patient prescribed a controlled substance at d/c from ED?: No Decision to Admit Reason: Admit from EC Decision Date: 02/14/19 Decision Time: 23:42
[2019-02-15] MEDS: SODIUM CHLORIDE 0.9% 1,000 ML IV SCH ×2 (01:35→16:27)
[2019-02-15 03:18] LABS: Neutrophils % (M) 24 %
[2019-02-15 03:21] LABS: Band Neutrophils % 2 %; Eosinophils # (M) 0.03 k/uL (0-0.7); Metamyelocytes # (M) 0.03 k/uL (0); Metamyelocytes % 2 %; Nucleated Red Blood Cells 6 /100 WBC (0-0); Total Cells Counted 100
[2019-02-15 03:23] LABS: Platelet Count 13 k/uL (150-450)
[2019-02-15 03:24] LABS: Lymphocytes # (M) 0.81 k/uL (1.0-4.8); WBC 1.3 k/uL (3.8-10.6)
[2019-02-15] MEDS: LEUCOVORIN 5 MG TAB PO SCH ×3 (06:22→20:23)
[2019-02-15 07:59] LABS: Anisocytosis Slight; HCT 21.2 % (39.0-53.0); HGB 7.1 gm/dL (13.0-17.5); Hypochromasia Slight; MCH 28.2 pg (25.0-35.0); MCHC 33.8 g/dL (31.0-37.0); MCV 83.5 fL (80.0-100.0); Mean Platelet Volume 7.6; Microcytosis Slight; Poikilocytosis Moderate; RBC 2.53 m/uL (4.30-5.90); RDW 19.4 % (11.5-15.5)
[2019-02-15 08:12] LABS: African American GFR (CKD) >90 (>60 ml/min/1.73 sqM); Anion Gap 10 mmol/L; Blood Urea Nitrogen 11 mg/dL (9-20); Calcium 8.6 mg/dL (8.4-10.2); Carbon Dioxide 25 mmol/L (22-30); Chloride 105 mmol/L (98-107); Glucose 96 mg/dL (74-99); Potassium 4.1 mmol/L (3.5-5.1); Sodium 140 mmol/L (137-145)
[2019-02-15] MEDS: DIVALPROEX 500 MG TABLET.DR PO SCH ×2 (08:12→20:23)
[2019-02-15] MEDS: FLUTICASONE 110 MCG INHALER INHALATION SCH ×2 (08:51→20:30)
[2019-02-15 09:13] LABS: Platelet Count 8 k/uL (150-450)
[2019-02-15 09:33] LABS: Band Neutrophils % 3 %; Eosinophils # (M) 0.04 k/uL (0-0.7); Neutrophils % (M) 26 %; Nucleated Red Blood Cells 6 /100 WBC (0-0); Total Cells Counted 100
[2019-02-15 09:34] LABS: Lymphocytes # (M) 0.97 k/uL (1.0-4.8); Monocytes # (M) 0.27 k/uL (0-1.0); WBC 1.8 k/uL (3.8-10.6)
[2019-02-15 09:36] LABS: Polychromasia Present
--- NOTE | 2019-02-15 10:34 | P.GSCN ---
History of Present Illness Consult date: 02/15/19 History of present illness: The patient is a 48-year-old gentleman who for the last 24 hours as had left flank pain. He has a history kidney stones previously treated with what sounds like ureteroscopy and lithotripsy by a couple of years ago. He has had no fever or chills. He is not in pain at present. He is to have a bone marrow biopsy for possible leukemia by Dr. Rojas next week. The patient had a computed tomography scan which identified a 6 mm stone in the mid to proximal ureter on the left with hydronephrosis. Review of Systems - Constitutional Reports as per HPI, Reports fatigue Past Medical History Past Medical History: Asthma, Chest Pain / Angina, Diabetes Mellitus, GERD/Reflux, GI Bleed, Hyperlipidemia, Hypertension, Myocardial Infarction ([place]), Osteoarthritis ([place]), Sleep Apnea/CPAP/BIPAP Additional Past Medical History / Comment(s): CURRENT: chronic back and neck pain(has lumbar and cervial nuero stimulators), herniated discs in the neck and the back. mood disturbance.occ ringing in ears, " in [address] me he heard a soft heart murmur', uses cpap machine, neuropathy in feet Last Myocardial Infarction Date:: 2004 History of Any Multi-Drug Resistant Organisms: None Reported Past Surgical History: Heart Catheterization With Stent, Hernia Repair, Joint Replacement Additional Past Surgical History / Comment(s): rt knee arthroscopy x3, lt knee arthroscopy last date 2012,total rt knee replacement and a revision sx cardiac stent x1 2004, stent placed for kidney stone 07/04/2016. Kidney stent has been removed. COLONOSCOPY. neuro stimulator implant cervial and recent another one in lumbar area Past Anesthesia/Blood Transfusion Reactions: No Reported Reaction Date of Last Stent Placement:: 2004 Past Psychological History: Anxiety, Bipolar, Depression, PTSD Smoking Status: Current every day smoker Past Alcohol Use History: Occasional Past Drug Use History: None Reported - Past Family History Father Family Medical History: Congestive Heart Failure (CHF), Deep Vein Thrombosis (DVT), Myocardial Infarction ([place]), Pulmonary Embolus Additional Family Medical History / Comment(s): [place] at age 38. "hole in colon" Mother Family Medical History: Cancer, COPD, Diabetes Mellitus, Hyperlipidemia Additional Family Medical History / Comment(s): breast and lung cancer Sister(s) Family Medical History: Diabetes Mellitus Additional Family Medical History / Comment(s): bi-polar, anxiety. hysterectomy Brother(s) History Unknown: Yes Medications and Allergies Home Medications Medication Instructions Recorded Confirmed Type metFORMIN HCL [Glucophage] 500 mg PO PC-SUPPER 06/10/14 02/14/19 History Montelukast Sodium [Singulair] 10 mg PO HS 06/01/16 02/14/19 History Albuterol Inhaler [Ventolin Hfa 2 puff INHALATION RT-Q6H PRN 10/15/17 02/14/19 History Inhaler] Atorvastatin [Lipitor] 80 mg PO PC-SUPPER 10/15/17 02/14/19 History Beclomethasone Dipropionate [Qvar 2 puff INHALATION RT-BID 10/15/17 02/14/19 History 80 mcg] Fenofibrate Nanocrystallized 145 mg PO PC-SUPPER 10/15/17 02/14/19 History [Fenofibrate] Gabapentin [Neurontin] 300 mg PO TID 10/15/17 02/14/19 History Metoprolol Succinate (ER) [Toprol 25 mg PO HS 10/15/17 02/14/19 History XL] Venlafaxine HCl [Effexor XR] 150 mg PO HS 10/15/17 02/14/19 History traZODone HCL 150 mg PO HS 10/15/17 02/14/19 History Dicyclomine [Bentyl] 20 mg PO TID 01/10/19 02/14/19 History Nitroglycerin Sl Tabs [Nitrostat] 0.4 mg SUBLINGUAL Q5M PRN 01/10/19 02/14/19 History Leucovorin 10 mg PO Q8HR 20 Days #60 tablet 01/26/19 02/14/19 Rx Divalproex [Depakote] 500 mg PO BID tablet. 01/27/19 02/14/19 Rx Allergies Allergy/AdvReac Type Severity Reaction Status Date / Time naproxen [From Naprosyn] Allergy Unknown Rash/Hives Verified 02/14/19 21:23 adhesive tape Allergy Rash/Hives Verified 02/14/19 21:23 ibuprofen Allergy Itching Verified 02/14/19 21:23 mold Allergy Unknown Verified 02/14/19 21:23 carrot AdvReac Dyspnea Verified 02/14/19 21:23 chocolate flavor AdvReac Dyspnea Verified 02/14/19 21:23 grass pollen-perennial rye, AdvReac Dyspnea Verified 02/14/19 21:23 standar Surgical - Exam Vital Signs Temp Pulse Resp BP Pulse Ox 99.1 F 104 H 18 113/63 98 02/14/19 20:20 02/14/19 20:20 02/14/19 20:20 02/14/19 20:20 02/14/19 20:20 - General well developed, well nourished, no distress - Eyes PERRL - ENT no hearing loss - Neck trachea midline - Respiratory normal expansion, normal respiratory effort - Cardiovascular Rhythm: regular - Abdomen Abdomen: soft, non tender - Genitourinary normal penis with no external lesions, testicles present - Integumentary no rash, no growths - Neurologic normal coordination, normal sensation - Musculoskeletal normal gait, normal posture - Psychiatric oriented to time, oriented to person, oriented to place, speech is normal, memory intact Results - Labs 02/15/19 06:37 02/15/19 06:37 Abnormal Lab Results - Last 24 Hours (Table) 02/14/19 02/14/19 02/14/19 Range/Units 21:57 21:57 22:37 WBC 1.3 L* (3.8-10.6) k/uL RBC 2.40 L (4.30-5.90) m/uL Hgb 6.9 L* (13.0-17.5) gm/dL Hct 19.9 L* (39.0-53.0) % RDW 20.3 H (11.5-15.5) % Plt Count 13 L* (150-450) k/uL Neutrophils # (Manual) 0.30 L* (1.3-7.7) k/uL Lymphocytes # (Manual) 0.81 L (1.0-4.8) k/uL Metamyelocytes # (Man) 0.03 H (0) k/uL Nucleated RBCs 6 H (0-0) /100 WBC Glucose 125 H (74-99) mg/dL Urine Blood Trace H (Negative) Urine RBC 12 H (0-5) /hpf Urine Mucus Rare H (None) /hpf Crossmatch 02/15/19 02/15/19 Range/Units 01:13 06:37 WBC 1.8 L (3.8-10.6) k/uL RBC 2.53 L (4.30-5.90) m/uL Hgb 7.1 L (13.0-17.5) gm/dL Hct 21.2 L (39.0-53.0) % RDW 19.4 H (11.5-15.5) % Plt Count 8 L* (150-450) k/uL Neutrophils # (Manual) 0.50 L (1.3-7.7) k/uL Lymphocytes # (Manual) 0.97 L (1.0-4.8) k/uL Metamyelocytes # (Man) (0) k/uL Nucleated RBCs 6 H (0-0) /100 WBC Glucose (74-99) mg/dL Urine Blood (Negative) Urine RBC (0-5) /hpf Urine Mucus (None) /hpf Crossmatch See Detail Diabetes panel 02/14/19 02/15/19 Range/Units 21:57 06:37 Sodium 140 140 (137-145) mmol/L Potassium 4.0 4.1 (3.5-5.1) mmol/L Chloride 105 105 (98-107) mmol/L Carbon Dioxide 23 25 (22-30) mmol/L BUN 13 11 (9-20) mg/dL Creatinine 0.74 0.77 (0.66-1.25) mg/dL Glucose 125 H 96 (74-99) mg/dL Calcium 9.0 8.6 (8.4-10.2) mg/dL AST 24 (17-59) U/L ALT 32 (21-72) U/L Alkaline Phosphatase 55 (38-126) U/L Total Protein 6.3 (6.3-8.2) g/dL Albumin 3.8 (3.5-5.0) g/dL Calcium panel 02/14/19 02/15/19 Range/Units 21:57 06:37 Calcium 9.0 8.6 (8.4-10.2) mg/dL Albumin 3.8 (3.5-5.0) g/dL Pituitary panel 02/14/19 02/15/19 Range/Units 21:57 06:37 Sodium 140 140 (137-145) mmol/L Potassium 4.0 4.1 (3.5-5.1) mmol/L Chloride 105 105 (98-107) mmol/L Carbon Dioxide 23 25 (22-30) mmol/L BUN 13 11 (9-20) mg/dL Creatinine 0.74 0.77 (0.66-1.25) mg/dL Glucose 125 H 96 (74-99) mg/dL Calcium 9.0 8.6 (8.4-10.2) mg/dL Adrenal panel 02/14/19 02/15/19 Range/Units 21:57 06:37 Sodium 140 140 (137-145) mmol/L Potassium 4.0 4.1 (3.5-5.1) mmol/L Chloride 105 105 (98-107) mmol/L Carbon Dioxide 23 25 (22-30) mmol/L BUN 13 11 (9-20) mg/dL Creatinine 0.74 0.77 (0.66-1.25) mg/dL Glucose 125 H 96 (74-99) mg/dL Calcium 9.0 8.6 (8.4-10.2) mg/dL Total Bilirubin 0.9 (0.2-1.3) mg/dL AST 24 (17-59) U/L ALT 32 (21-72) U/L Alkaline Phosphatase 55 (38-126) U/L Total Protein 6.3 (6.3-8.2) g/dL Albumin 3.8 (3.5-5.0) g/dL - Imaging CT scan - abdomen: report reviewed, image reviewed CT scan - pelvis: report reviewed, image reviewed Assessment and Plan Assessment: Impression: Left ureteral calculus and disease [6 mm mid to proximal ureter left]. Pancytopenia rule out leukemia. Recommendations: The patient is comfortable. He would like to spontaneously pass the stone. From urologic standpoint he can go home. A prescription of Tylenol with codeine and Flomax of been given. He should follow-up with Dr. Stern next week.
[2019-02-15] MEDS: FOLIC ACID 1 MG TAB PO SCH (10:35)
--- NOTE | 2019-02-15 10:48 | P.CONS ---
History of Present Illness - Reason for Consult Consult date: 02/15/19 Pancytopenia Requesting physician: Delicia Segura - Chief Complaint Left lower quadrant pain - History of Present Illness Mr. Burnham is a very pleasant 48-year-old male who was first seen in consult by hematology 01/15/2019. We were asked to see him for pancytopenia. This was of new onset, no previous history. Patient had extensive workup during that visit with no underlying cause identified. Patient's medications were reviewed, evaluated and adjusted as there was concern that some of his medications could be responsible for marrow suppression. He was prescribed folic acid, he had not filled the prescription by his first office visit about 3 weeks ago. He could not afford [id number] either so, he prescribed leucovorin for marrow rescue due to suspicions of marrow suppression from medications. He has taken that for about a week and a half. There has been little to no improvement in his counts. Patient is scheduled for a bone marrow biopsy and aspirate on Sunday with Dr. Rojas. Patient came to the emergency department with complaints of left lower quadrant pain, he has been diagnosed with nephrolithiasis. Currently patient is laying in bed, pain is controlled, he is drinking plenty of fluids, no fevers, nausea, epistaxis, hematuria, hematochezia or melena. Review of Systems 14 point review of systems is negative except as stated in HPI Past Medical History Past Medical History: Asthma, Chest Pain / Angina, Diabetes Mellitus, GERD/Reflux, GI Bleed, Hyperlipidemia, Hypertension, Myocardial Infarction (GA), Osteoarthritis (OA), Sleep Apnea/CPAP/BIPAP Additional Past Medical History / Comment(s): CURRENT: chronic back and neck pain(has lumbar and cervial nuero stimulators), herniated discs in the neck and the back. mood disturbance.occ ringing in ears, " [place] [address] me he heard a soft heart murmur', uses cpap machine, neuropathy in feet Last Myocardial Infarction Date:: 2004 History of Any Multi-Drug Resistant Organisms: None Reported Past Surgical History: Heart Catheterization With Stent, Hernia Repair, Joint Replacement Additional Past Surgical History / Comment(s): rt knee arthroscopy x3, lt knee arthroscopy last date 2012,total rt knee replacement and a revision sx cardiac stent x1 2004, stent placed for kidney stone 07/04/2016. Kidney stent has been removed. COLONOSCOPY. neuro stimulator implant cervial and recent another one in lumbar area Past Anesthesia/Blood Transfusion Reactions: No Reported Reaction Date of Last Stent Placement:: 2004 Past Psychological History: Anxiety, Bipolar, Depression, PTSD Smoking Status: Current every day smoker Past Alcohol Use History: Occasional Past Drug Use History: None Reported - Past Family History Father Family Medical History: Congestive Heart Failure (CHF), Deep Vein Thrombosis (DVT), Myocardial Infarction ([place]), Pulmonary Embolus Additional Family Medical History / Comment(s): GA at age 38. "hole in colon" Mother Family Medical History: Cancer, COPD, Diabetes Mellitus, Hyperlipidemia Additional Family Medical History / Comment(s): breast and lung cancer Sister(s) Family Medical History: Diabetes Mellitus Additional Family Medical History / Comment(s): bi-polar, anxiety. hysterectomy Brother(s) History Unknown: Yes Medications and Allergies Home Medications Medication Instructions Recorded Confirmed Type metFORMIN HCL [Glucophage] 500 mg PO PC-SUPPER 06/10/14 02/14/19 History Montelukast Sodium [Singulair] 10 mg PO HS 06/01/16 02/14/19 History Albuterol Inhaler [Ventolin Hfa 2 puff INHALATION RT-Q6H PRN 10/15/17 02/14/19 History Inhaler] Atorvastatin [Lipitor] 80 mg PO PC-SUPPER 10/15/17 02/14/19 History Beclomethasone Dipropionate [Qvar 2 puff INHALATION RT-BID 10/15/17 02/14/19 History 80 mcg] Fenofibrate Nanocrystallized 145 mg PO PC-SUPPER 10/15/17 02/14/19 History [Fenofibrate] Gabapentin [Neurontin] 300 mg PO TID 10/15/17 02/14/19 History Metoprolol Succinate (ER) [Toprol 25 mg PO HS 10/15/17 02/14/19 History XL] Venlafaxine HCl [Effexor XR] 150 mg PO HS 10/15/17 02/14/19 History traZODone HCL 150 mg PO HS 10/15/17 02/14/19 History Dicyclomine [Bentyl] 20 mg PO TID 01/10/19 02/14/19 History Nitroglycerin Sl Tabs [Nitrostat] 0.4 mg SUBLINGUAL Q5M PRN 01/10/19 02/14/19 History Leucovorin 10 mg PO Q8HR 20 Days #60 tablet 01/26/19 02/14/19 Rx Divalproex [Depakote] 500 mg PO BID tablet. 01/27/19 02/14/19 Rx Allergies Allergy/AdvReac Type Severity Reaction Status Date / Time naproxen [From Naprosyn] Allergy Unknown Rash/Hives Verified 02/14/19 21:23 adhesive tape Allergy Rash/Hives Verified 02/14/19 21:23 ibuprofen Allergy Itching Verified 02/14/19 21:23 mold Allergy Unknown Verified 02/14/19 21:23 carrot AdvReac Dyspnea Verified 02/14/19 21:23 chocolate flavor AdvReac Dyspnea Verified 02/14/19 21:23 grass pollen-perennial rye, AdvReac Dyspnea Verified 02/14/19 21:23 standar Physical Exam Vitals: Vital Signs Temp Pulse Pulse Resp BP BP Pulse Ox 02/15/19 05:43 97.3 F L 74 18 121/59 97 02/15/19 04:01 97.3 F L 82 18 114/64 02/15/19 03:31 97.1 F L 88 18 109/53 02/15/19 03:21 97.2 F L 100 18 117/65 96 02/15/19 01:46 89 16 02/15/19 00:51 97.9 F 89 16 125/63 97 02/15/19 00:00 92 19 110/61 98 02/14/19 23:00 89 19 114/59 97 02/14/19 22:00 91 18 109/64 97 02/14/19 20:20 99.1 F 104 H 18 113/63 98 Intake and Output 02/14/19 02/15/19 02/15/19 22:59 06:59 14:59 Intake Total 2760 Balance 2760 Intake: Intake, IV Titration 600 Amount Sodium Chloride 0.9% 1, 600 000 ml @ 75 mls/hr IV . [id number] [facility] Rx#:[id number] Oral 1540 Blood Product 620 Rc Pheres Irrad As 3 310 Unit [id number] Other: # Voids 2 Weight 92.533 kg - Constitutional General appearance: average body habitus, cooperative, no acute distress - EENT Eyes: anicteric sclerae, EOMI ENT: hearing grossly normal, normal oropharynx - Neck Neck: no lymphadenopathy - Respiratory Respiratory: bilateral: CTA - Cardiovascular Rhythm: regular Heart sounds: normal: S1, S2 Abnormal Heart Sounds: no systolic murmur, no diastolic murmur, no rub, no S3 Gallop, no S4 Gallop, no click, no other leg Peripheral Edema: bilateral: None - Gastrointestinal General gastrointestinal: no absent bowel sounds, no decreased bowel sounds, no distended, no hepatomegaly, no hyperactive bowel sounds, normal bowel sounds, no organomegaly, no rigid, no scaphoid, soft, splenomegaly, tenderness, no umbilical hernia, no ventral hernia - Integumentary Integumentary: pale - Neurologic Neurologic: CNII-XII intact - Musculoskeletal Musculoskeletal: strength equal bilaterally - Psychiatric Psychiatric: A&O x's 3, appropriate affect, intact judgment & insight Results CBC & Chem 7: 02/15/19 06:37 02/15/19 06:37 Labs: Abnormal Lab Results - Last 24 Hours (Table) 02/14/19 02/14/19 02/14/19 Range/Units 21:57 21:57 22:37 WBC 1.3 L* (3.8-10.6) k/uL RBC 2.40 L (4.30-5.90) m/uL Hgb 6.9 L* (13.0-17.5) gm/dL Hct 19.9 L* (39.0-53.0) % RDW 20.3 H (11.5-15.5) % Plt Count 13 L* (150-450) k/uL Neutrophils # (Manual) 0.30 L* (1.3-7.7) k/uL Lymphocytes # (Manual) 0.81 L (1.0-4.8) k/uL Metamyelocytes # (Man) 0.03 H (0) k/uL Nucleated RBCs 6 H (0-0) /100 WBC Glucose 125 H (74-99) mg/dL Urine Blood Trace H (Negative) Urine RBC 12 H (0-5) /hpf Urine Mucus Rare H (None) /hpf Crossmatch 02/15/19 02/15/19 Range/Units 01:13 06:37 WBC 1.8 L (3.8-10.6) k/uL RBC 2.53 L (4.30-5.90) m/uL Hgb 7.1 L (13.0-17.5) gm/dL Hct 21.2 L (39.0-53.0) % RDW 19.4 H (11.5-15.5) % Plt Count 8 L* (150-450) k/uL Neutrophils # (Manual) 0.50 L (1.3-7.7) k/uL Lymphocytes # (Manual) 0.97 L (1.0-4.8) k/uL Metamyelocytes # (Man) (0) k/uL Nucleated RBCs 6 H (0-0) /100 WBC Glucose (74-99) mg/dL Urine Blood (Negative) Urine RBC (0-5) /hpf Urine Mucus (None) /hpf Crossmatch See Detail CT scan - abdomen: report reviewed CT scan - pelvis: report reviewed Assessment and Plan (1) Pancytopenia Narrative/Plan: Pancytopenia is persistent and progressive. Hgb is dropping with no evidence of acute bleeding (by report or imaging). WBC decreased, ANC ok at 500 today. Platelet count is 8000 today. 1 unit of platelets is can it be given today prior to discharge. Bone marrow biopsy scheduled for Sunday, pt verbalized unders tanding importance of this appt. Current Visit: Yes Status: Acute Priority: High Code(s): D61.818 - OTHER PANCYTOPENIA SNOMED Code(s): 765586819 Plan: Ok with DC after platelets transfused. Instructed pt on bleeding precautions.
[2019-02-15 11:33] LABS: Platelet Count 12 k/uL (150-450)
--- NOTE | 2019-02-15 12:07 | P.HPIM ---
History of Present Illness H&P Date: 02/15/19 Fransisco Burnham is a 48-year-old male who presented to [facility] emergency room with severe left lower quadrant abdominal pain, he was evaluated in the emergency room and had evidence of left urethral calculus patient also had evidence of pancytopenia his hemoglobin was down to 6.9 and platelet count down to 13 he was admitted to medical floor. Urology consultation was requested in regard to nephrolithiasis, also oncology consultation was requested, patient was diagnosed was pancytopenia recently he was referred to oncology as outpatient and was recently seen by Dr. Rojas. At this time patient is complaining of left lower quadrant abdominal pain otherwise he denies any complaints there is no fever or chills no headache or dizziness no chest pain no shortness of breath no cough no nausea or vomiting no diarrhea no constipation no burning was urination no frequency or urgency and no hematuria. Past Medical History Past Medical History: Asthma, Chest Pain / Angina, Diabetes Mellitus, GERD/Reflux, GI Bleed, Hyperlipidemia, Hypertension, Myocardial Infarction ([place]), Osteoarthritis (OA), Sleep Apnea/CPAP/BIPAP Additional Past Medical History / Comment(s): CURRENT: chronic back and neck pain(has lumbar and cervial nuero stimulators), herniated discs in the neck and the back. mood disturbance.occ ringing in ears, " in [address] me he heard a soft heart murmur', uses cpap machine, neuropathy in feet Last Myocardial Infarction Date:: 2004 History of Any Multi-Drug Resistant Organisms: None Reported Past Surgical History: Heart Catheterization With Stent, Hernia Repair, Joint Replacement Additional Past Surgical History / Comment(s): rt knee arthroscopy x3, lt knee arthroscopy last date 2012,total rt knee replacement and a revision sx cardiac stent x1 2004, stent placed for kidney stone 07/04/2016. Kidney stent has been removed. COLONOSCOPY. neuro stimulator implant cervial and recent another one in lumbar area Past Anesthesia/Blood Transfusion Reactions: No Reported Reaction Date of Last Stent Placement:: 2004 Past Psychological History: Anxiety, Bipolar, Depression, PTSD Smoking Status: Current every day smoker Past Alcohol Use History: Occasional Past Drug Use History: None Reported - Past Family History Father Family Medical History: Congestive Heart Failure (CHF), Deep Vein Thrombosis (DVT), Myocardial Infarction (OR), Pulmonary Embolus Additional Family Medical History / Comment(s): OR at age 38. "hole in colon" Mother Family Medical History: Cancer, COPD, Diabetes Mellitus, Hyperlipidemia Additional Family Medical History / Comment(s): breast and lung cancer Sister(s) Family Medical History: Diabetes Mellitus Additional Family Medical History / Comment(s): bi-polar, anxiety. hysterectomy Brother(s) History Unknown: Yes Medications and Allergies Home Medications Medication Instructions Recorded Confirmed Type metFORMIN HCL [Glucophage] 500 mg PO PC-SUPPER 06/10/14 02/14/19 History Montelukast Sodium [Singulair] 10 mg PO HS 06/01/16 02/14/19 History Albuterol Inhaler [Ventolin Hfa 2 puff INHALATION RT-Q6H PRN 10/15/17 02/14/19 History Inhaler] Atorvastatin [Lipitor] 80 mg PO PC-SUPPER 10/15/17 02/14/19 History Beclomethasone Dipropionate [Qvar 2 puff INHALATION RT-BID 10/15/17 02/14/19 History 80 mcg] Fenofibrate Nanocrystallized 145 mg PO PC-SUPPER 10/15/17 02/14/19 History [Fenofibrate] Gabapentin [Neurontin] 300 mg PO TID 10/15/17 02/14/19 History Metoprolol Succinate (ER) [Toprol 25 mg PO HS 10/15/17 02/14/19 History XL] Venlafaxine HCl [Effexor XR] 150 mg PO HS 10/15/17 02/14/19 History traZODone HCL 150 mg PO HS 10/15/17 02/14/19 History Dicyclomine [Bentyl] 20 mg PO TID 01/10/19 02/14/19 History Nitroglycerin Sl Tabs [Nitrostat] 0.4 mg SUBLINGUAL Q5M PRN 01/10/19 02/14/19 History Leucovorin 10 mg PO Q8HR 20 Days #60 tablet 01/26/19 02/14/19 Rx Divalproex [Depakote] 500 mg PO BID tablet. 01/27/19 02/14/19 Rx Allergies Allergy/AdvReac Type Severity Reaction Status Date / Time naproxen [From Naprosyn] Allergy Unknown Rash/Hives Verified 02/14/19 21:23 adhesive tape Allergy Rash/Hives Verified 02/14/19 21:23 ibuprofen Allergy Itching Verified 02/14/19 21:23 mold Allergy Unknown Verified 02/14/19 21:23 carrot AdvReac Dyspnea Verified 02/14/19 21:23 chocolate flavor AdvReac Dyspnea Verified 02/14/19 21:23 grass pollen-perennial rye, AdvReac Dyspnea Verified 02/14/19 21:23 standar Physical Exam Vitals: Vital Signs Temp Pulse Pulse Resp BP BP Pulse Ox 02/15/19 08:40 89 18 02/15/19 05:43 97.3 F L 74 18 121/59 97 02/15/19 04:01 97.3 F L 82 18 114/64 02/15/19 03:31 97.1 F L 88 18 109/53 02/15/19 03:21 97.2 F L 100 18 117/65 96 02/15/19 01:46 89 16 02/15/19 00:51 97.9 F 89 16 125/63 97 02/15/19 00:00 92 19 110/61 98 02/14/19 23:00 89 19 114/59 97 02/14/19 22:00 91 18 109/64 97 02/14/19 20:20 99.1 F 104 H 18 113/63 98 Intake and Output 02/14/19 02/15/19 02/15/19 22:59 06:59 14:59 Intake Total 2760 Balance 2760 Intake: Intake, IV Titration 600 Amount Sodium Chloride 0.9% 1, 600 000 ml @ 75 mls/hr IV . [id number] [facility] Rx#:[id number] Oral 1540 Blood Product 620 Rc Pheres Irrad As 3 310 Unit [id number] Other: Voiding Method Toilet # Voids 2 Weight 92.533 kg In general patient is alert and oriented 3 in no apparent distress HEENT head normocephalic and atraumatic. No jaundice Neck is supple no JVD no goiter no lymphadenopathy Chest exam reveals a few scattered crackles no wheezing Cardiac exam reveals regular heart sounds S1 and S2 no gallops no murmurs Abdomen is soft with mild diffuse tenderness worse tenderness in the left lower quadrant no organomegaly with normal bowel sounds Extremity exam reveals no edema no cyanosis or clubbing Results CBC & Chem 7: 02/15/19 10:42 02/15/19 06:37 Labs: Abnormal Lab Results - Last 24 Hours (Table) 02/14/19 02/14/19 02/14/19 Range/Units 21:57 21:57 22:37 WBC 1.3 L* (3.8-10.6) k/uL RBC 2.40 L (4.30-5.90) m/uL Hgb 6.9 L* (13.0-17.5) gm/dL Hct 19.9 L* (39.0-53.0) % RDW 20.3 H (11.5-15.5) % Plt Count 13 L* (150-450) k/uL Neutrophils # (Manual) 0.30 L* (1.3-7.7) k/uL Lymphocytes # (Manual) 0.81 L (1.0-4.8) k/uL Metamyelocytes # (Man) 0.03 H (0) k/uL Nucleated RBCs 6 H (0-0) /100 WBC Glucose 125 H (74-99) mg/dL Urine Blood Trace H (Negative) Urine RBC 12 H (0-5) /hpf Urine Mucus Rare H (None) /hpf Crossmatch 02/15/19 02/15/19 02/15/19 Range/Units 01:13 06:37 10:42 WBC 1.8 L (3.8-10.6) k/uL RBC 2.53 L (4.30-5.90) m/uL Hgb 7.1 L (13.0-17.5) gm/dL Hct 21.2 L (39.0-53.0) % RDW 19.4 H (11.5-15.5) % Plt Count 8 L* 12 L* (150-450) k/uL Neutrophils # (Manual) 0.50 L (1.3-7.7) k/uL Lymphocytes # (Manual) 0.97 L (1.0-4.8) k/uL Metamyelocytes # (Man) (0) k/uL Nucleated RBCs 6 H (0-0) /100 WBC Glucose (74-99) mg/dL Urine Blood (Negative) Urine RBC (0-5) /hpf Urine Mucus (None) /hpf Crossmatch See Detail Thrombosis Risk Factor Assmnt - Choose All That Apply Any of the Below Risk Factors Present?: Yes Each Factor Represents 1 point: Age 41-60 years, Obesity (BMI >25) Thrombosis Risk Factor Assessment Total Risk Factor Score: 2 Thrombosis Risk Factor Assessment Level: Low Risk Assessment and Plan Plan: #1 Pancytopenia #2 Left ureteral calculus #3 Intractable abdominal pain #4 underlying history of hypertension #5 underlying history of depression #6 underlying history of diabetes mellitus #7 underlying history of coronary artery disease #8 underlying history of obstructive sleep apnea maintained on CPAP #9 underlying history of osteoarthritis At this time patient is maintained on IV fluid, and IV pain management Red blood cells transfusion and platelet transfusion were ordered Patient is scheduled for bone marrow biopsy on Sunday Continue current management continue IV pain medication Will recheck in a.m.
[2019-02-15] MEDS: MORPHINE SULFATE 4 MG/ML SYRINGE IV PRN (16:34)
[2019-02-15] MEDS: METOPROLOL SUCCINATE (ER) 25 MG TAB.ER.24H PO SCH (20:23)
[2019-02-15] MEDS: MONTELUKAST 10 MG TAB PO SCH (20:23)
[2019-02-15] MEDS: VENLAFAXINE HCL ER 150 MG CAP PO SCH (20:23)
[2019-02-15] MEDS: traZODone HCL 50 MG TAB PO SCH (20:23)
[2019-02-16] MEDS: SODIUM CHLORIDE 0.9% 1,000 ML IV SCH ×2 (03:54→17:29)
[2019-02-16] MEDS: LEUCOVORIN 5 MG TAB PO SCH ×3 (05:51→21:25)
[2019-02-16 07:13] LABS: Glucose,Whole Blood 107 mg/dL (75-99)
[2019-02-16 07:19] LABS: Anisocytosis Slight; HCT 22.2 % (39.0-53.0); HGB 7.6 gm/dL (13.0-17.5); Hypochromasia Slight; MCH 28.5 pg (25.0-35.0); MCHC 34.2 g/dL (31.0-37.0); MCV 83.4 fL (80.0-100.0); Mean Platelet Volume 7.5; Microcytosis Slight; Poikilocytosis Marked; RBC 2.66 m/uL (4.30-5.90); RDW 19.9 % (11.5-15.5); WBC 2.3 k/uL (3.8-10.6)
[2019-02-16 07:23] LABS: Platelet Count 22 k/uL (150-450)
[2019-02-16 07:39] LABS: ALT 31 U/L (21-72); AST 28 U/L (17-59); African American GFR (CKD) >90 (>60 ml/min/1.73 sqM); Albumin 3.5 g/dL (3.5-5.0); Alkaline Phosphatase 46 U/L (38-126); Anion Gap 6 mmol/L; Blood Urea Nitrogen 11 mg/dL (9-20); Calcium 8.8 mg/dL (8.4-10.2); Carbon Dioxide 30 mmol/L (22-30); Chloride 106 mmol/L (98-107); Glucose 97 mg/dL (74-99); Potassium 4.3 mmol/L (3.5-5.1); Sodium 142 mmol/L (137-145); Total Bilirubin 0.8 mg/dL (0.2-1.3)
[2019-02-16] MEDS: FOLIC ACID 1 MG TAB PO SCH (07:46)
[2019-02-16] MEDS: DIVALPROEX 500 MG TABLET.DR PO SCH ×2 (07:46→20:41)
[2019-02-16] MEDS: FLUTICASONE 110 MCG INHALER INHALATION SCH ×2 (09:03→20:17)
[2019-02-16 09:34] LABS: Band Neutrophils % 2 %; Eosinophils # (M) 0.05 k/uL (0-0.7); Lymphocytes # (M) 1.24 k/uL (1.0-4.8); Metamyelocytes # (M) 0.05 k/uL (0); Metamyelocytes % 2 %; Monocytes # (M) 0.23 k/uL (0-1.0); Myelocytes # (M) 0.02 k/uL (0); Myelocytes % 1 %; Neutrophils % (M) 29 %; Nucleated Red Blood Cells 1 /100 WBC (0-0); Total Cells Counted 100
--- NOTE | 2019-02-16 11:15 | P.PN ---
Subjective Progress Note Date: 02/16/19 Fransisco Burnham is a 48-year-old male who presented to [facility] emergency room with severe left lower quadrant abdominal pain, he was evaluated in the emergency room and had evidence of left urethral calculus patient also had evidence of pancytopenia his hemoglobin was down to 6.9 and platelet count down to 13 he was admitted to medical floor. Urology consultation was requested in regard to nephrolithiasis, also oncology consultation was requested, patient was diagnosed was pancytopenia recently he was referred to oncology as outpatient and was recently seen by Dr. Rojas. At this time patient is complaining of left lower quadrant abdominal pain otherwise he denies any complaints there is no fever or chills no headache or dizziness no chest pain no shortness of breath no cough no nausea or vomiting no diarrhea no constipation no burning was urination no frequency or urgency and no hematuria. On 02/16/2019 patient was seen and examined on the medical floor he is alert and oriented 3 in no apparent distress he states that he is having nausea and had 2 episodes of vomiting he is still complaining of flank and back pain, otherwise he denies any complaints there is no fever or chills no headache or dizziness no chest pain no shortness of breath no cough no nausea or vomiting no abdominal pain no diarrhea no burning with urination no frequency or urgency and no hematuria Objective - Vital Signs Vital signs: Vital Signs Temp 97.2 F L 02/16/19 05:00 Pulse 80 02/16/19 07:10 Resp 16 02/16/19 07:10 BP 116/56 02/16/19 05:00 Pulse Ox 92 L 02/16/19 05:00 Intake & Output 02/15/19 02/16/19 02/16/19 18:59 06:59 18:59 Intake Total 569 2370 Balance 569 2370 Intake: Intake, IV Titration 600 Amount Sodium Chloride 0.9% 1, 600 000 ml @ 75 mls/hr IV . [id number] [facility] Rx#:[id number] Oral 360 1770 Blood Product 209 Platelet Irr Pheresis 3 209 Acda Unit [id number] Other: Voiding Method Toilet Toilet Toilet # Voids 3 2 2 - Exam In general patient is alert and oriented 3 in no apparent distress HEENT head normocephalic and atraumatic. No jaundice Neck is supple no JVD no goiter no lymphadenopathy Chest exam reveals a few scattered crackles no wheezing Cardiac exam reveals regular heart sounds S1 and S2 no gallops no murmurs Abdomen is soft with mild diffuse tenderness worse tenderness in the left lower quadrant no organomegaly with normal bowel sounds Extremity exam reveals no edema no cyanosis or clubbing - Labs CBC & Chem 7: 02/16/19 06:33 02/16/19 06:33 Labs: Abnormal Lab Results - Last 24 Hours (Table) 02/15/19 02/16/19 02/16/19 Range/Units 10:42 06:33 06:33 WBC 2.3 L (3.8-10.6) k/uL RBC 2.66 L (4.30-5.90) m/uL Hgb 7.6 L (13.0-17.5) gm/dL Hct 22.2 L (39.0-53.0) % RDW 19.9 H (11.5-15.5) % Plt Count 12 L* 22 L D (150-450) k/uL Neutrophils # (Manual) 0.70 L (1.3-7.7) k/uL Metamyelocytes # (Man) 0.05 H (0) k/uL Myelocytes # (Manual) 0.02 H (0) k/uL Nucleated RBCs 1 H (0-0) /100 WBC POC Glucose (mg/dL) (75-99) mg/dL Total Protein 6.0 L (6.3-8.2) g/dL 02/16/19 Range/Units 07:12 WBC (3.8-10.6) k/uL RBC (4.30-5.90) m/uL Hgb (13.0-17.5) gm/dL Hct (39.0-53.0) % RDW (11.5-15.5) % Plt Count (150-450) k/uL Neutrophils # (Manual) (1.3-7.7) k/uL Metamyelocytes # (Man) (0) k/uL Myelocytes # (Manual) (0) k/uL Nucleated RBCs (0-0) /100 WBC POC Glucose (mg/dL) 107 H (75-99) mg/dL Total Protein (6.3-8.2) g/dL Assessment and Plan Plan: #1 Pancytopenia #2 Left ureteral calculus #3 Intractable abdominal pain #4 underlying history of hypertension #5 underlying history of depression #6 underlying history of diabetes mellitus #7 underlying history of coronary artery disease #8 underlying history of obstructive sleep apnea maintained on CPAP #9 underlying history of osteoarthritis At this time patient is maintained on IV fluid, and IV pain management Red blood cells transfusion and platelet transfusion were ordered Patient is scheduled for bone marrow biopsy on Sunday Continue current management continue IV pain medication Will recheck in a.m.
[2019-02-16 12:04] LABS: Glucose,Whole Blood 105 mg/dL (75-99)
[2019-02-16 16:56] LABS: Glucose,Whole Blood 140 mg/dL (75-99)
[2019-02-16 20:09] LABS: Glucose,Whole Blood 166 mg/dL (75-99)
[2019-02-16] MEDS: MORPHINE SULFATE 4 MG/ML SYRINGE IV PRN (20:40)
[2019-02-16] MEDS: traZODone HCL 50 MG TAB PO SCH (20:41)
[2019-02-16] MEDS: MONTELUKAST 10 MG TAB PO SCH (20:41)
[2019-02-16] MEDS: METOPROLOL SUCCINATE (ER) 25 MG TAB.ER.24H PO SCH (20:41)
[2019-02-16] MEDS: INSULIN ASPART (NovoLOG) 100 UNIT/ML VIAL SQ SCH (20:41)
[2019-02-16] MEDS: VENLAFAXINE HCL ER 150 MG CAP PO SCH (20:41)
[2019-02-17] MEDS: LEUCOVORIN 5 MG TAB PO SCH ×3 (05:59→20:13)
[2019-02-17] MEDS: SODIUM CHLORIDE 0.9% 1,000 ML IV SCH (06:21)
[2019-02-17 07:19] LABS: Glucose,Whole Blood 96 mg/dL (75-99)
[2019-02-17 07:43] LABS: ALT 32 U/L (21-72); AST 25 U/L (17-59); African American GFR (CKD) >90 (>60 ml/min/1.73 sqM); Albumin 3.7 g/dL (3.5-5.0); Alkaline Phosphatase 46 U/L (38-126); Anion Gap 7 mmol/L; Blood Urea Nitrogen 12 mg/dL (9-20); Calcium 8.6 mg/dL (8.4-10.2); Carbon Dioxide 26 mmol/L (22-30); Chloride 108 mmol/L (98-107); Glucose 88 mg/dL (74-99); Potassium 4.3 mmol/L (3.5-5.1); Sodium 141 mmol/L (137-145); Total Bilirubin 0.7 mg/dL (0.2-1.3); Total Protein 6.3 g/dL (6.3-8.2)
[2019-02-17] MEDS ORDERED: IV FLUID CONTINUATION 1,000 ML IV ONE (08:13)
[2019-02-17] MEDS ORDERED: PROPOFOL 10 MG/ML 20 ML VIAL IV ONE (08:25)
--- NOTE | 2019-02-17 08:47 | P.PN ---
Progress Note - Text Progress Note Date: 02/17/19 Bone marrow aspiration biopsy is planned for today and was attempted. However the patient had overlying spinal cord simulator accessing the posterior iliac crest on either side would have risk of potentially damaging the leads. This was confirmed with anesthesiology. Therefore the procedure will be canceled. We will try to schedule with radiology under fluoroscopy guidance
[2019-02-17] MEDS: FLUTICASONE 110 MCG INHALER INHALATION SCH ×2 (09:18→19:31)
[2019-02-17] MEDS: INSULIN ASPART (NovoLOG) 100 UNIT/ML VIAL SQ SCH ×4 (09:18→21:37)
[2019-02-17 10:58] LABS: Anisocytosis Moderate; HCT 20.8 % (39.0-53.0); Hypochromasia Moderate; MCH 27.4 pg (25.0-35.0); MCHC 32.8 g/dL (31.0-37.0); MCV 83.8 fL (80.0-100.0); Microcytosis Slight; Poikilocytosis Moderate; RBC 2.49 m/uL (4.30-5.90); WBC 1.7 k/uL (3.8-10.6)
[2019-02-17 11:01] LABS: HGB 6.8 gm/dL (13.0-17.5)
[2019-02-17 11:05] LABS: Platelet Count 11 k/uL (150-450)
[2019-02-17 11:29] LABS: Glucose,Whole Blood 92 mg/dL (75-99)
--- NOTE | 2019-02-17 12:23 | P.PN ---
Subjective Progress Note Date: 02/17/19 Fransisco Burnham is a 48-year-old male who presented to [facility] emergency room with severe left lower quadrant abdominal pain, he was evaluated in the emergency room and had evidence of left urethral calculus patient also had evidence of pancytopenia his hemoglobin was down to 6.9 and platelet count down to 13 he was admitted to medical floor. Urology consultation was requested in regard to nephrolithiasis, also oncology consultation was requested, patient was diagnosed was pancytopenia recently he was referred to oncology as outpatient and was recently seen by Dr. Rojas. At this time patient is complaining of left lower quadrant abdominal pain otherwise he denies any complaints there is no fever or chills no headache or dizziness no chest pain no shortness of breath no cough no nausea or vomiting no diarrhea no constipation no burning was urination no frequency or urgency and no hematuria. On 02/16/2019 patient was seen and examined on the medical floor he is alert and oriented 3 in no apparent distress he states that he is having nausea and had 2 episodes of vomiting he is still complaining of flank and back pain, otherwise he denies any complaints there is no fever or chills no headache or dizziness no chest pain no shortness of breath no cough no nausea or vomiting no abdominal pain no diarrhea no burning with urination no frequency or urgency and no hematuria On 02/17/2019 patient is alert and oriented 3. Attempted bone marrow biopsy this a.m. but unsuccessful due to nerve stimulator placement recommending radiology be consulted for bone marrow biopsy. Hemoglobin decreasing to 6.8. 1 unit of PRBCs has been ordered per oncology. This time patient denies chest pain or shortness breath. Patient denies nausea vomiting or diarrhea. Patient denies any urinary burning or frequency Objective - Vital Signs Vital signs: Vital Signs Temp 98.3 F 02/17/19 12:00 Pulse 80 02/17/19 12:00 Resp 16 02/17/19 12:00 BP 112/72 02/17/19 12:00 Pulse Ox 98 02/17/19 12:00 Intake & Output 02/16/19 02/17/19 02/17/19 18:59 06:59 18:59 Intake Total 960 1200 200 Balance 960 1200 200 Weight 92.533 kg Intake: IV 200 Intake, IV Titration 600 Amount Sodium Chloride 0.9% 1, 600 000 ml @ 75 mls/hr IV . [id number] TABITHA Rx#:[id number] Oral 360 1200 Other: Voiding Method Toilet Toilet Toilet # Voids 3 2 # Bowel Movements 1 - Exam In general patient is alert and oriented 3 in no apparent distress HEENT head normocephalic and atraumatic. No jaundice Neck is supple no JVD no goiter no lymphadenopathy Chest exam reveals a few scattered crackles no wheezing Cardiac exam reveals regular heart sounds S1 and S2 no gallops no murmurs Abdomen is soft with mild diffuse tenderness worse tenderness in the left lower quadrant no organomegaly with normal bowel sounds Extremity exam reveals no edema no cyanosis or clubbing - Labs CBC & Chem 7: 02/17/19 06:25 02/17/19 06:25 Labs: Abnormal Lab Results - Last 24 Hours (Table) 02/15/19 02/16/19 02/16/19 Range/Units 01:13 16:54 20:07 WBC (3.8-10.6) k/uL RBC (4.30-5.90) m/uL Hgb (13.0-17.5) gm/dL Hct (39.0-53.0) % RDW (11.5-15.5) % Chloride (98-107) mmol/L POC Glucose (mg/dL) 140 H 166 H (75-99) mg/dL Crossmatch See Detail 02/17/19 02/17/19 Range/Units 06:25 06:25 WBC 1.7 L (3.8-10.6) k/uL RBC 2.49 L (4.30-5.90) m/uL Hgb 6.8 L* (13.0-17.5) gm/dL Hct 20.8 L (39.0-53.0) % RDW 20.0 H (11.5-15.5) % Chloride 108 H (98-107) mmol/L POC Glucose (mg/dL) (75-99) mg/dL Crossmatch Assessment and Plan Assessment: #1 Pancytopenia. Hemoglobin 6.8. Patient to receive additional unit of PRBCs today. Radiology consulted for bone marrow biopsy. #2 Left ureteral calculus #3 Intractable abdominal pain #4 underlying history of hypertension #5 underlying history of depression #6 underlying history of diabetes mellitus #7 underlying history of coronary artery disease #8 underlying history of obstructive sleep apnea maintained on CPAP #9 underlying history of osteoarthritis DVT prophylaxis SCDs due to thrombocytopenia. GI prophylaxis Pepcid I performed an examination of the patient and discussed their management with the Nurse Practitioner. I have reviewed the Nurse Practitioner's notes and agree with the documented findings and plan of care
--- NOTE | 2019-02-17 12:48 | P.PN ---
Subjective Progress Note Date: 02/17/19 Principal diagnosis: Pancytopenia Attempted BM Biopsy today, unable to secondary to site IR to perform in am Objective - Vital Signs Vital signs: Vital Signs Temp 98.3 F 02/17/19 12:00 Pulse 80 02/17/19 12:00 Resp 16 02/17/19 12:00 BP 112/72 02/17/19 12:00 Pulse Ox 98 02/17/19 12:00 Intake & Output 02/16/19 02/17/19 02/17/19 18:59 06:59 18:59 Intake Total 960 1200 200 Balance 960 1200 200 Weight 92.533 kg Intake: IV 200 Intake, IV Titration 600 Amount Sodium Chloride 0.9% 1, 600 000 ml @ 75 mls/hr IV . [id number] TABITHA Rx#:[id number] Oral 360 1200 Other: Voiding Method Toilet Toilet Toilet # Voids 3 2 # Bowel Movements 1 - Exam Constitutional General appearance: average body habitus, cooperative, no acute distress - EENT Eyes: anicteric sclerae, EOMI ENT: hearing grossly normal, normal oropharynx - Neck Neck: no lymphadenopathy - Respiratory Respiratory: bilateral: CTA - Cardiovascular Rhythm: regular Heart sounds: normal: S1, S2 Abnormal Heart Sounds: no systolic murmur, no diastolic murmur, no rub, no S3 Gallop, no S4 Gallop, no click, no other leg Peripheral Edema: bilateral: None - Gastrointestinal General gastrointestinal: no absent bowel sounds, no decreased bowel sounds, no distended, no hepatomegaly, no hyperactive bowel sounds, normal bowel sounds, no organomegaly, no rigid, no scaphoid, soft, splenomegaly, tenderness, no umbilical hernia, no ventral hernia - Integumentary Integumentary: pale - Neurologic Neurologic: CNII-XII intact - Musculoskeletal Musculoskeletal: strength equal bilaterally - Psychiatric Psychiatric: A&O x's 3, appropriate affect, intact judgment & insight - Labs CBC & Chem 7: 02/17/19 06:25 02/17/19 06:25 Labs: Abnormal Lab Results - Last 24 Hours (Table) 02/15/19 02/16/19 02/16/19 Range/Units 01:13 16:54 20:07 WBC (3.8-10.6) k/uL RBC (4.30-5.90) m/uL Hgb (13.0-17.5) gm/dL Hct (39.0-53.0) % RDW (11.5-15.5) % Chloride (98-107) mmol/L POC Glucose (mg/dL) 140 H 166 H (75-99) mg/dL Crossmatch See Detail 02/17/19 02/17/19 Range/Units 06:25 06:25 WBC 1.7 L (3.8-10.6) k/uL RBC 2.49 L (4.30-5.90) m/uL Hgb 6.8 L* (13.0-17.5) gm/dL Hct 20.8 L (39.0-53.0) % RDW 20.0 H (11.5-15.5) % Chloride 108 H (98-107) mmol/L POC Glucose (mg/dL) (75-99) mg/dL Crossmatch Assessment and Plan Plan: CT scan - abdomen: report reviewed CT scan - pelvis: report reviewed Assessment and Plan Pancytopenia - Persistent Pancytopenia - Hemoglobin 6.8 today, platlets 11K (spoke to lab processing and awaiting yi ification of platelet read) - Attempted Bone Marrow Biopsy today although unable to obtain secondary to spinal cord stimulator covering the access of Iliac - Transfuse one unit of irradiated platelets and PRBC today.
[2019-02-17 13:01] LABS: Large Platelets Present
[2019-02-17 13:17] LABS: Neutrophils % (M) 23 %
[2019-02-17 13:18] LABS: Band Neutrophils % 1 %; Blast Cells # (M) 0.02 k/uL (0); Eosinophils # (M) 0.02 k/uL (0-0.7); Metamyelocytes # (M) 0.02 k/uL (0); Metamyelocytes % 1 %; Myelocytes # (M) 0.07 k/uL (0); Myelocytes % 4 %; Nucleated Red Blood Cells 3 /100 WBC (0-0); Total Cells Counted 198
[2019-02-17] MEDS: FOLIC ACID 1 MG TAB PO SCH (14:41)
[2019-02-17] MEDS: DIVALPROEX 500 MG TABLET.DR PO SCH ×2 (14:41→20:12)
[2019-02-17 17:29] LABS: Glucose,Whole Blood 95 mg/dL (75-99)
[2019-02-17] MEDS: VENLAFAXINE HCL ER 150 MG CAP PO SCH (20:13)
[2019-02-17] MEDS: traZODone HCL 50 MG TAB PO SCH (20:13)
[2019-02-17] MEDS: METOPROLOL SUCCINATE (ER) 25 MG TAB.ER.24H PO SCH (20:13)
[2019-02-17] MEDS: MONTELUKAST 10 MG TAB PO SCH (20:13)
--- NOTE | 2019-02-17 20:55 | P.PN ---
Progress Note - Text Progress Note Date: 02/17/19 The patient reports minimal left flank discomfort as a result of his 4 mm left UPJ calculus. He believes he may have had trace hematuria earlier today. The bone marrow biopsy today was unsuccessful, and therefore a biopsy will be performed by interventional radiology tomorrow. He wishes to hold off on any surgical treatment for his kidney stone at this time, and proceed with the evaluation of his pancytopenia.
[2019-02-17 21:35] LABS: Glucose,Whole Blood 122 mg/dL (75-99)
--- NOTE | 2019-02-17 22:29 | P.PN ---
Subjective Progress Note Date: 02/17/19 The patient was evaluated and examined at the time of planned bone marrow aspiration biopsy. He denies any new complaints. No history of any fever/chills/nausea/vomiting/obvious bleeding Objective - Vital Signs Vital signs: Vital Signs Temp 99.4 F 02/17/19 21:00 Pulse 85 02/17/19 21:00 Resp 18 02/17/19 21:00 BP 127/75 02/17/19 21:00 Pulse Ox 96 02/17/19 21:00 Intake & Output 02/17/19 02/17/19 02/18/19 06:59 18:59 06:59 Intake Total 1200 1530 Balance 1200 1530 Weight 92.533 kg Intake: IV 200 Oral 1200 1020 Blood Product 310 Rc Irr As1 Unit 310 [id number] Other: Voiding Method Toilet Toilet # Voids 2 3 # Bowel Movements 1 - Constitutional General appearance: Present: no acute distress - EENT Eyes: Present: EOMI ENT: Present: hearing grossly normal, normal oropharynx - Respiratory Respiratory: bilateral: CTA - Cardiovascular Rhythm: regular Heart sounds: normal: S1, S2 - Gastrointestinal General gastrointestinal: Present: normal bowel sounds, soft - Integumentary Integumentary: Present: normal - Musculoskeletal Musculoskeletal: Present: strength equal bilaterally - Psychiatric Psychiatric: Present: A&O x's 3, appropriate affect - Labs CBC & Chem 7: 02/17/19 06:25 02/17/19 06:25 Labs: Abnormal Lab Results - Last 24 Hours (Table) 02/15/19 02/17/19 02/17/19 Range/Units 01:13 06:25 06:25 WBC 1.7 L (3.8-10.6) k/uL RBC 2.49 L (4.30-5.90) m/uL Hgb 6.8 L* (13.0-17.5) gm/dL Hct 20.8 L (39.0-53.0) % RDW 20.0 H (11.5-15.5) % Plt Count 11 L* (150-450) k/uL Blast Cells % 1 H* % Neutrophils # (Manual) 0.40 L* (1.3-7.7) k/uL Metamyelocytes # (Man) 0.02 H (0) k/uL Myelocytes # (Manual) 0.07 H (0) k/uL Blast Cells # (Man) 0.02 H (0) k/uL Nucleated RBCs 3 H (0-0) /100 WBC Chloride 108 H (98-107) mmol/L POC Glucose (mg/dL) (75-99) mg/dL Crossmatch See Detail 02/17/19 Range/Units 21:34 WBC (3.8-10.6) k/uL RBC (4.30-5.90) m/uL Hgb (13.0-17.5) gm/dL Hct (39.0-53.0) % RDW (11.5-15.5) % Plt Count (150-450) k/uL Blast Cells % % Neutrophils # (Manual) (1.3-7.7) k/uL Metamyelocytes # (Man) (0) k/uL Myelocytes # (Manual) (0) k/uL Blast Cells # (Man) (0) k/uL Nucleated RBCs (0-0) /100 WBC Chloride (98-107) mmol/L POC Glucose (mg/dL) 122 H (75-99) mg/dL Crossmatch Assessment and Plan (1) Pancytopenia Narrative/Plan: This is persistent, despite decrease in Depakote dose, and leucovorin supplementation. The patient was to have bone marrow aspirate and biopsy today. However at the time of the biopsy to noted that the patient has spinal cord simulators implanted over the posterior iliac crests on each side. Case was discussed with anesthesiology. Due to the position of the stimulators, it is felt that the bone marrow could not be done on either side without the possibility of damaging the leads. Therefore the procedure was canceled. This was discussed with the patient and his family. Case was also discussed with radiology. The procedure will be rescheduled with interventional radiology with imaging guidance. Platelets were 11 without evidence of bleeding. Hemoglobin is 6.8. Therefore 1 unit of irradiated PRBCs were ordered Current Visit: Yes Status: Acute Priority: High Code(s): D61.818 - OTHER PANCYTOPENIA SNOMED Code(s): 299620869 Plan: Deferred to the admitting service for management of his other medical issues
[2019-02-18] MEDS: SODIUM CHLORIDE 0.9% 1,000 ML IV SCH ×2 (04:16→09:28)
[2019-02-18] MEDS: LEUCOVORIN 5 MG TAB PO SCH ×3 (04:16→22:16)
[2019-02-18 07:16] LABS: Glucose,Whole Blood 103 mg/dL (75-99)
[2019-02-18] MEDS: FLUTICASONE 110 MCG INHALER INHALATION SCH ×2 (07:22→19:22)
[2019-02-18 08:27] LABS: INR 0.9 (<1.2)
[2019-02-18] MEDS: INSULIN ASPART (NovoLOG) 100 UNIT/ML VIAL SQ SCH ×4 (09:23→22:17)
[2019-02-18] MEDS: FAMOTIDINE 20 MG TAB PO SCH (09:28)
[2019-02-18] MEDS: DIVALPROEX 500 MG TABLET.DR PO SCH ×2 (09:28→22:17)
[2019-02-18] MEDS: FOLIC ACID 1 MG TAB PO SCH (09:28)
[2019-02-18 11:28] LABS: Glucose,Whole Blood 129 mg/dL (75-99)
[2019-02-18 13:43] LABS: Anisocytosis Slight; Hypochromasia Moderate; MCHC 33.5 g/dL (31.0-37.0); MCV 83.6 fL (80.0-100.0); Microcytosis Slight; Poikilocytosis Moderate; RBC 2.87 m/uL (4.30-5.90); RDW 18.7 % (11.5-15.5)
[2019-02-18 13:46] LABS: Platelet Count 13 k/uL (150-450)
[2019-02-18 14:43] LABS: Band Neutrophils % 3 %; Eosinophils # (M) 0.02 k/uL (0-0.7); Neutrophils % (M) 22 %
[2019-02-18 14:44] LABS: Blast Cells # (M) 0.03 k/uL (0); Lymphocytes # (M) 0.98 k/uL (1.0-4.8); Metamyelocytes # (M) 0.02 k/uL (0); Metamyelocytes % 1 %; Monocytes # (M) 0.18 k/uL (0-1.0); Myelocytes # (M) 0.03 k/uL (0); Myelocytes % 2 %; Nucleated Red Blood Cells 10 /100 WBC (0-0); Total Cells Counted 200; WBC 1.6 k/uL (3.8-10.6)
[2019-02-18 14:45] LABS: Polychromasia Present
--- NOTE | 2019-02-18 15:27 | P.PN ---
Subjective Progress Note Date: 02/18/19 Fransisco Burnham is a 48-year-old male who presented to [facility] emergency room with severe left lower quadrant abdominal pain, he was evaluated in the emergency room and had evidence of left urethral calculus patient also had evidence of pancytopenia his hemoglobin was down to 6.9 and platelet count down to 13 he was admitted to medical floor. Urology consultation was requested in regard to nephrolithiasis, also oncology consultation was requested, patient was diagnosed was pancytopenia recently he was referred to oncology as outpatient and was recently seen by Dr. Rojas. At this time patient is complaining of left lower quadrant abdominal pain otherwise he denies any complaints there is no fever or chills no headache or dizziness no chest pain no shortness of breath no cough no nausea or vomiting no diarrhea no constipation no burning was urination no frequency or urgency and no hematuria. On 02/16/2019 patient was seen and examined on the medical floor he is alert and oriented 3 in no apparent distress he states that he is having nausea and had 2 episodes of vomiting he is still complaining of flank and back pain, otherwise he denies any complaints there is no fever or chills no headache or dizziness no chest pain no shortness of breath no cough no nausea or vomiting no abdominal pain no diarrhea no burning with urination no frequency or urgency and no hematuria On 02/17/2019 patient is alert and oriented 3. Attempted bone marrow biopsy this a.m. but unsuccessful due to nerve stimulator placement recommending radiology be consulted for bone marrow biopsy. Hemoglobin decreasing to 6.8. 1 unit of PRBCs has been ordered per oncology. This time patient denies chest pain or shortness breath. Patient denies nausea vomiting or diarrhea. Patient denies any urinary burning or frequency On 02/18/2019 patient is alert and oriented 3. Plan is to have patient undergo bone marrow biopsy with interventional radiology tomorrow at noon. Patient did receive 1 unit PRBCs yesterday hemoglobin improving to 8.0 platelets 13. At this time patient is resting comfortably in bed. Patient denies chest pain or shortness of breath. Patient denies nausea vomiting or diarrhea. Patient denies any urinary burning or frequency. Objective - Vital Signs Vital signs: Vital Signs Temp 98.3 F 02/18/19 12:19 Pulse 84 02/18/19 12:19 Resp 17 02/18/19 12:19 BP 111/55 02/18/19 12:19 Pulse Ox 96 02/18/19 12:19 Intake & Output 02/17/19 02/18/19 02/18/19 18:59 06:59 18:59 Intake Total 1530 780 Balance 1530 780 Weight 92.533 kg Intake: IV 200 Intake, IV Titration 300 Amount Sodium Chloride 0.9% 1, 300 000 ml @ 75 mls/hr IV . [id number] [facility] Rx#:[id number] Oral 1020 480 Blood Product 310 Rc Irr As1 Unit 310 [id number] Other: Voiding Method Toilet Toilet Toilet # Voids 3 3 # Bowel Movements 1 - Exam In general patient is alert and oriented 3 in no apparent distress HEENT head normocephalic and atraumatic. No jaundice Neck is supple no JVD no goiter no lymphadenopathy Chest exam reveals a few scattered crackles no wheezing Cardiac exam reveals regular heart sounds S1 and S2 no gallops no murmurs Abdomen is soft with mild diffuse tenderness worse tenderness in the left lower quadrant no organomegaly with normal bowel sounds Extremity exam reveals no edema no cyanosis or clubbing - Labs CBC & Chem 7: 02/18/19 12:20 02/17/19 06:25 Labs: Abnormal Lab Results - Last 24 Hours (Table) 02/17/19 02/18/19 02/18/19 Range/Units 21:34 07:15 11:26 WBC (3.8-10.6) k/uL RBC (4.30-5.90) m/uL Hgb (13.0-17.5) gm/dL Hct (39.0-53.0) % RDW (11.5-15.5) % Plt Count (150-450) k/uL Blast Cells % % Neutrophils # (Manual) (1.3-7.7) k/uL Lymphocytes # (Manual) (1.0-4.8) k/uL Metamyelocytes # (Man) (0) k/uL Myelocytes # (Manual) (0) k/uL Blast Cells # (Man) (0) k/uL Nucleated RBCs (0-0) /100 WBC POC Glucose (mg/dL) 122 H 103 H 129 H (75-99) mg/dL 02/18/19 Range/Units 12:20 WBC 1.6 L (3.8-10.6) k/uL RBC 2.87 L (4.30-5.90) m/uL Hgb 8.0 L (13.0-17.5) gm/dL Hct 24.0 L (39.0-53.0) % RDW 18.7 H (11.5-15.5) % Plt Count 13 L* (150-450) k/uL Blast Cells % 2 H* % Neutrophils # (Manual) 0.40 L* (1.3-7.7) k/uL Lymphocytes # (Manual) 0.98 L (1.0-4.8) k/uL Metamyelocytes # (Man) 0.02 H (0) k/uL Myelocytes # (Manual) 0.03 H (0) k/uL Blast Cells # (Man) 0.03 H (0) k/uL Nucleated RBCs 10 H (0-0) /100 WBC POC Glucose (mg/dL) (75-99) mg/dL Assessment and Plan Assessment: #1 Pancytopenia. Hemoglobin 6.8. Patient to receive additional unit of PRBCs today. Radiology consulted for bone marrow biopsy. Plans for patient to undergo bone marrow biopsy tomorrow with interventional radiology at noon 02/19/2019 #2 Left ureteral calculus #3 Intractable abdominal pain #4 underlying history of hypertension #5 underlying history of depression #6 underlying history of diabetes mellitus #7 underlying history of coronary artery disease #8 underlying history of obstructive sleep apnea maintained on CPAP #9 underlying history of osteoarthritis DVT prophylaxis SCDs due to thrombocytopenia. GI prophylaxis Pepcid I performed an examination of the patient and discussed their management with the Nurse Practitioner. I have reviewed the Nurse Practitioner's notes and agree with the documented findings and plan of care
--- NOTE | 2019-02-18 16:26 | P.PN ---
Subjective Progress Note Date: 02/18/19 Principal diagnosis: Pancytopenia Planning IR Bone marrow biopsy Objective - Vital Signs Vital signs: Vital Signs Temp 98.3 F 02/18/19 12:19 Pulse 84 02/18/19 12:19 Resp 17 02/18/19 12:19 BP 111/55 02/18/19 12:19 Pulse Ox 96 02/18/19 12:19 Intake & Output 02/17/19 02/18/19 02/18/19 18:59 06:59 18:59 Intake Total 1530 780 Balance 1530 780 Weight 92.533 kg Intake: IV 200 Intake, IV Titration 300 Amount Sodium Chloride 0.9% 1, 300 000 ml @ 75 mls/hr IV . [id number] TABITHA Rx#:[id number] Oral 1020 480 Blood Product 310 Rc Irr As1 Unit 310 [id number] Other: Voiding Method Toilet Toilet Toilet # Voids 3 3 # Bowel Movements 1 - Exam Constitutional General appearance: average body habitus, cooperative, no acute distress - EENT Eyes: anicteric sclerae, EOMI ENT: hearing grossly normal, normal oropharynx - Neck Neck: no lymphadenopathy - Respiratory Respiratory: bilateral: CTA - Cardiovascular Rhythm: regular Heart sounds: normal: S1, S2 Abnormal Heart Sounds: no systolic murmur, no diastolic murmur, no rub, no S3 Gallop, no S4 Gallop, no click, no other leg Peripheral Edema: bilateral: None - Gastrointestinal General gastrointestinal: no absent bowel sounds, no decreased bowel sounds, no distended, no hepatomegaly, no hyperactive bowel sounds, normal bowel sounds, no organomegaly, no rigid, no scaphoid, soft, splenomegaly, tenderness, no umbilical hernia, no ventral hernia - Integumentary Integumentary: pale - Neurologic Neurologic: CNII-XII intact - Musculoskeletal Musculoskeletal: strength equal bilaterally - Psychiatric Psychiatric: A&O x's 3, appropriate affect, intact judgment & insight - Labs CBC & Chem 7: 02/18/19 12:20 02/17/19 06:25 Labs: Abnormal Lab Results - Last 24 Hours (Table) 02/17/19 02/18/19 02/18/19 Range/Units 21:34 07:15 11:26 WBC (3.8-10.6) k/uL RBC (4.30-5.90) m/uL Hgb (13.0-17.5) gm/dL Hct (39.0-53.0) % RDW (11.5-15.5) % Plt Count (150-450) k/uL Blast Cells % % Neutrophils # (Manual) (1.3-7.7) k/uL Lymphocytes # (Manual) (1.0-4.8) k/uL Metamyelocytes # (Man) (0) k/uL Myelocytes # (Manual) (0) k/uL Blast Cells # (Man) (0) k/uL Nucleated RBCs (0-0) /100 WBC POC Glucose (mg/dL) 122 H 103 H 129 H (75-99) mg/dL 02/18/19 Range/Units 12:20 WBC 1.6 L (3.8-10.6) k/uL RBC 2.87 L (4.30-5.90) m/uL Hgb 8.0 L (13.0-17.5) gm/dL Hct 24.0 L (39.0-53.0) % RDW 18.7 H (11.5-15.5) % Plt Count 13 L* (150-450) k/uL Blast Cells % 2 H* % Neutrophils # (Manual) 0.40 L* (1.3-7.7) k/uL Lymphocytes # (Manual) 0.98 L (1.0-4.8) k/uL Metamyelocytes # (Man) 0.02 H (0) k/uL Myelocytes # (Manual) 0.03 H (0) k/uL Blast Cells # (Man) 0.03 H (0) k/uL Nucleated RBCs 10 H (0-0) /100 WBC POC Glucose (mg/dL) (75-99) mg/dL Assessment and Plan Plan: CT scan - abdomen: report reviewed CT scan - pelvis: report reviewed Assessment and Plan Pancytopenia - Persistent Pancytopenia - Attempted Bone Marrow Biopsy today although unable to obtain secondary to spinal cord stimulator covering the access of Iliac - Patient will need bone marrow biopsy to for etiology cytopenias I have completed the full history and physical of this patient and developed the complete impression and plan, Agree with Eileen VALENZUELA, dictated as a sccribe
[2019-02-18 17:17] LABS: Glucose,Whole Blood 161 mg/dL (75-99)
[2019-02-18] MEDS: MORPHINE SULFATE 4 MG/ML SYRINGE IV PRN (18:10)
[2019-02-18 19:53] LABS: Glucose,Whole Blood 149 mg/dL (75-99)
[2019-02-18] MEDS: METOPROLOL SUCCINATE (ER) 25 MG TAB.ER.24H PO SCH (22:16)
[2019-02-18] MEDS: MONTELUKAST 10 MG TAB PO SCH (22:16)
[2019-02-18] MEDS: traZODone HCL 50 MG TAB PO SCH (22:16)
[2019-02-18] MEDS: VENLAFAXINE HCL ER 150 MG CAP PO SCH (22:17)
[2019-02-19] MEDS: LEUCOVORIN 5 MG TAB PO SCH ×2 (05:20→13:53)
[2019-02-19] MEDS: SODIUM CHLORIDE 0.9% 1,000 ML IV SCH ×2 (05:20→13:53)
[2019-02-19 07:06] LABS: Glucose,Whole Blood 100 mg/dL (75-99)
[2019-02-19 07:42] LABS: Anisocytosis Slight; HCT 24.2 % (39.0-53.0); HGB 7.9 gm/dL (13.0-17.5); Hypochromasia Slight; MCH 26.8 pg (25.0-35.0); MCHC 32.7 g/dL (31.0-37.0); MCV 82.2 fL (80.0-100.0); Mean Platelet Volume 6.9; Microcytosis Slight; Poikilocytosis Moderate; RBC 2.95 m/uL (4.30-5.90)
[2019-02-19 07:47] LABS: ALT 44 U/L (21-72); AST 37 U/L (17-59); African American GFR (CKD) >90 (>60 ml/min/1.73 sqM); Albumin 3.8 g/dL (3.5-5.0); Alkaline Phosphatase 50 U/L (38-126); Anion Gap 10 mmol/L; Blood Urea Nitrogen 13 mg/dL (9-20); Calcium 8.8 mg/dL (8.4-10.2); Carbon Dioxide 24 mmol/L (22-30); Chloride 107 mmol/L (98-107); Glucose 91 mg/dL (74-99); Potassium 4.1 mmol/L (3.5-5.1); Sodium 141 mmol/L (137-145); Total Bilirubin 0.8 mg/dL (0.2-1.3); Total Protein 6.6 g/dL (6.3-8.2)
[2019-02-19 08:39] LABS: Platelet Count 11 k/uL (150-450)
[2019-02-19] MEDS: INSULIN ASPART (NovoLOG) 100 UNIT/ML VIAL SQ SCH ×3 (08:59→16:51)
[2019-02-19] MEDS: FLUTICASONE 110 MCG INHALER INHALATION SCH (09:00)
[2019-02-19] MEDS: DIVALPROEX 500 MG TABLET.DR PO SCH (09:05)
[2019-02-19] MEDS: FOLIC ACID 1 MG TAB PO SCH (09:06)
[2019-02-19] MEDS: FAMOTIDINE 20 MG TAB PO SCH (09:06)
[2019-02-19 09:16] LABS: Band Neutrophils % 4 %; Eosinophils # (M) 0.02 k/uL (0-0.7); Metamyelocytes # (M) 0.02 k/uL (0); Metamyelocytes % 1 %; Myelocytes % 3 %; Neutrophils % (M) 9 %; Nucleated Red Blood Cells 12 /100 WBC (0-0); Total Cells Counted 100
[2019-02-19 09:17] LABS: Lymphocytes # (M) 1.17 k/uL (1.0-4.8); Monocytes # (M) 0.31 k/uL (0-1.0); Myelocytes # (M) 0.05 k/uL (0); WBC 1.8 k/uL (3.8-10.6)
[2019-02-19 09:22] LABS: Polychromasia Present; Tear Drop Cells Present
[2019-02-19 09:23] LABS: Spherocytes Present
[2019-02-19 09:40] LABS: Reticulocyte % 1.9 % (0.5-2.0)
--- NOTE | 2019-02-19 10:49 | P.PN ---
Subjective Progress Note Date: 02/19/19 Principal diagnosis: Pancytopenia Platelets 11 today. Awaiting Bone Marrow Biopsy Objective - Vital Signs Vital signs: Vital Signs Temp 98.3 F 02/19/19 05:00 Pulse 77 02/19/19 05:00 Resp 18 02/19/19 05:00 BP 114/62 02/19/19 05:00 Pulse Ox 95 02/19/19 05:00 Intake & Output 02/18/19 02/19/19 02/19/19 18:59 06:59 18:59 Intake Total 600 480 Balance 600 480 Intake: Intake, IV Titration 600 Amount Sodium Chloride 0.9% 1, 600 000 ml @ 75 mls/hr IV . [id number] [facility]ITHA Rx#:[id number] Oral 480 Other: Voiding Method Toilet Toilet Toilet # Voids 3 3 - Exam Constitutional General appearance: average body habitus, cooperative, no acute distress - EENT Eyes: anicteric sclerae, EOMI ENT: hearing grossly normal, normal oropharynx - Neck Neck: no lymphadenopathy - Respiratory Respiratory: bilateral: CTA - Cardiovascular Rhythm: regular Heart sounds: normal: S1, S2 Abnormal Heart Sounds: no systolic murmur, no diastolic murmur, no rub, no S3 Gallop, no S4 Gallop, no click, no other leg Peripheral Edema: bilateral: None - Gastrointestinal General gastrointestinal: no absent bowel sounds, no decreased bowel sounds, no distended, no hepatomegaly, no hyperactive bowel sounds, normal bowel sounds, no organomegaly, no rigid, no scaphoid, soft, splenomegaly, tenderness, no umbilical hernia, no ventral hernia - Integumentary Integumentary: pale - Neurologic Neurologic: CNII-XII intact - Musculoskeletal Musculoskeletal: strength equal bilaterally - Psychiatric Psychiatric: A&O x's 3, appropriate affect, intact judgment & insight - Labs CBC & Chem 7: 02/19/19 06:34 02/19/19 06:34 Labs: Abnormal Lab Results - Last 24 Hours (Table) 02/18/19 02/18/19 02/18/19 Range/Units 11:26 12:20 17:16 WBC 1.6 L (3.8-10.6) k/uL RBC 2.87 L (4.30-5.90) m/uL Hgb 8.0 L (13.0-17.5) gm/dL Hct 24.0 L (39.0-53.0) % RDW 18.7 H (11.5-15.5) % Plt Count 13 L* (150-450) k/uL Blast Cells % 2 H* % Neutrophils # (Manual) 0.40 L* (1.3-7.7) k/uL Lymphocytes # (Manual) 0.98 L (1.0-4.8) k/uL Metamyelocytes # (Man) 0.02 H (0) k/uL Myelocytes # (Manual) 0.03 H (0) k/uL Blast Cells # (Man) 0.03 H (0) k/uL Nucleated RBCs 10 H (0-0) /100 WBC POC Glucose (mg/dL) 129 H 161 H (75-99) mg/dL 02/18/19 02/19/19 02/19/19 Range/Units 19:51 06:34 07:05 WBC 1.8 L (3.8-10.6) k/uL RBC 2.95 L (4.30-5.90) m/uL Hgb 7.9 L (13.0-17.5) gm/dL Hct 24.2 L (39.0-53.0) % RDW 19.0 H (11.5-15.5) % Plt Count 11 L* (150-450) k/uL Blast Cells % % Neutrophils # (Manual) 0.20 L* (1.3-7.7) k/uL Lymphocytes # (Manual) (1.0-4.8) k/uL Metamyelocytes # (Man) 0.02 H (0) k/uL Myelocytes # (Manual) 0.05 H (0) k/uL Blast Cells # (Man) (0) k/uL Nucleated RBCs 12 H (0-0) /100 WBC POC Glucose (mg/dL) 149 H 100 H (75-99) mg/dL Assessment and Plan Plan: CT scan - abdomen: report reviewed CT scan - pelvis: report reviewed Assessment and Plan: Pancytopenia - Persistent Pancytopenia - Attempted Bone Marrow Biopsy today although unable to obtain secondary to spinal cord stimulator covering the access of Iliac - Patient will need bone marrow biopsy to for etiology cytopenias IF discharged today recommenddation for CBC on Sunday am in office for possible need transfusion.
[2019-02-19] MEDS ORDERED: oxyCODONE-APAP 7.5-325MG 1 EACH TAB PO PRN (11:16)
[2019-02-19 11:21] LABS: Glucose,Whole Blood 92 mg/dL (75-99)
[2019-02-19] MEDS ORDERED: fentaNYL (PF) 50 MCG/ML 2 ML AMP ONE (11:55)
[2019-02-19] MEDS ORDERED: LIDOCAINE 1% INJ 10MG/ML (20 ML MDV) ONE (11:55)
[2019-02-19] MEDS ORDERED: MIDAZOLAM 2 MG/2 ML VIAL ONE (11:55)
[2019-02-19] MEDS ORDERED: PROPOFOL 10 MG/ML 20 ML VIAL IV ONE (11:55)
--- NOTE | 2019-02-19 13:31 | CT ---
EXAMINATION TYPE: CT biopsy bone deep DATE OF EXAM: 02/19/2019 COMPARISON: None HISTORY: Right side sacral bone biopsy CT DLP: 1184 mGycm The procedure is discussed with the patient, the risks, complications, benefits and alternatives, wer e discussed and any questions were answered. Informed consent was obtained. The patient is placed p elisa on the CT table, prepped and draped in the usual sterile fashion. Utilizing a living gauge bone marrow biopsy needle access into the right iliac bone was achieved with 2 aspirations performed and a single core sample obtained. Pathology pending. All elements of maxi mal barrier technique were utilized. The patient remained stable throughout the procedure with no im mediate postprocedural complication. IMPRESSION: 1. Successful CT guided bone marrow biopsy
[2019-02-19 13:49] VITALS: RESP 18
[2019-02-19 13:50] VITALS: BP 110/67; TEMP 97.8
--- NOTE | 2019-02-19 14:15 | P.DS ---
Providers Date of admission: 02/14/19 23:42 Expected date of discharge: 02/19/19 Attending physician: Veronika Dotson Consults: 02/14/19 23:43 Consult Physician Urgent Consulting Provider: Heladio Mcgrath Consult Reason/Comments: ureteral stone Do you want consulting provider notified?: Yes, Notify in am 02/14/19 23:44 Consult Physician Urgent Consulting Provider: Guille Rojas Consult Reason/Comments: pancytopenia, s/p 1 unit PRBC Do you want consulting provider notified?: Yes Primary care physician: [facility] [place] Course: Discharge diagnosis #1 Pancytopenia. Hemoglobin 6.8. Patient to receive additional unit of PRBCs today. Radiology consulted for bone marrow biopsy. Plans for patient to undergo bone marrow biopsy tomorrow with interventional radiology at noon 02/19/2019. Bone marrow biopsy completed. Patient has been cleared for discharge from oncology services. Discussed case without oncology PATTERN [employer]ER PRO[employer]ER. patient to present to oncology office in 2 days to have blood draw and possible blood transfusion #2 Left ureteral calculus. Patient was evaluated by urology services no surgical intervention at this time patient will follow-up outpatient #3 Intractable abdominal pain #4 underlying history of hypertension #5 underlying history of depression #6 underlying history of diabetes mellitus #7 underlying history of coronary artery disease #8 underlying history of obstructive sleep apnea maintained on CPAP #9 underlying history of osteoarthritis Hospital course Fransisco Burnham is a 48-year-old male who presented to [facility] emergency room with severe left lower quadrant abdominal pain, he was evaluated in the emergency room and had evidence of left urethral calculus patient also had evidence of pancytopenia his hemoglobin was down to 6.9 and platelet count down to 13 he was admitted to medical floor. Urology consultation was requested in regard to nephrolithiasis, also oncology consultation was requested, patient was diagnosed was pancytopenia recently he was referred to oncology as outpatient and was recently seen by Dr. Rojas. At this time patient is complaining of left lower quadrant abdominal pain otherwise he denies any complaints there is no fever or chills no headache or dizziness no chest pain no shortness of breath no cough no nausea or vomiting no diarrhea no constipation no burning was urination no frequency or urgency and no hematuria. On 02/16/2019 patient was seen and examined on the medical floor he is alert and oriented 3 in no apparent distress he states that he is having nausea and had 2 episodes of vomiting he is still complaining of flank and back pain, otherwise he denies any complaints there is no fever or chills no headache or dizziness no chest pain no shortness of breath no cough no nausea or vomiting no abdominal pain no diarrhea no burning with urination no frequency or urgency and no hematuria On 02/17/2019 patient is alert and oriented 3. Attempted bone marrow biopsy this a.m. but unsuccessful due to nerve stimulator placement recommending radiology be consulted for bone marrow biopsy. Hemoglobin decreasing to 6.8. 1 unit of PRBCs has been ordered per oncology. This time patient denies chest pain or shortness breath. Patient denies nausea vomiting or diarrhea. Patient denies any urinary burning or frequency On 02/18/2019 patient is alert and oriented 3. Plan is to have patient undergo bone marrow biopsy with interventional radiology tomorrow at noon. Patient did receive 1 unit PRBCs yesterday hemoglobin improving to 8.0 platelets 13. At this time patient is resting comfortably in bed. Patient denies chest pain or shortness of breath. Patient denies nausea vomiting or diarrhea. Patient de nies any urinary burning or frequency. On 02/19/2019 patient alert and oriented 3. Patient did undergo bone marrow biopsy today through interventional radiology. Hgb was 7.9. Platelets 11 the patient did receive platelet transfusion prior to procedure. Patient has been cleared for discharge from urology and oncology services. Discussed case with oncology PATTERN [employer]KER PROGRAMER. Patient to present to oncology office on Sunday for blood on possible blood transfusion. At this time patient denies chest pain or shortness of breath. Patient denies nausea vomiting or diarrhea. Patient denies any urinary burning or frequency Patient to be discharged once procedural clearance per IR. Discussed with nursing staff I performed an examination of the patient and discussed their management with the Nurse Practitioner. I have reviewed the Nurse Practitioner's notes and agree with the documented findings and plan of care Patient Condition at Discharge: Stable Plan - Discharge Summary New Discharge Prescriptions: Continue Montelukast Sodium [Singulair] 10 mg PO HS Albuterol Inhaler [Ventolin Hfa Inhaler] 2 puff INHALATION RT-Q6H PRN PRN Reason: Shortness Of Breath Metoprolol Succinate (ER) [Toprol XL] 25 mg PO HS Atorvastatin [Lipitor] 80 mg PO PC-SUPPER traZODone HCL 150 mg PO HS Venlafaxine HCl [Effexor XR] 150 mg PO HS Gabapentin [Neurontin] 300 mg PO TID Fenofibrate Nanocrystallized [Fenofibrate] 145 mg PO PC-SUPPER Beclomethasone Dipropionate [Qvar 80 mcg] 2 puff INHALATION RT-BID Nitroglycerin Sl Tabs [Nitrostat] 0.4 mg SUBLINGUAL Q5M PRN PRN Reason: Chest Pain Dicyclomine [Bentyl] 20 mg PO TID Leucovorin 10 mg PO Q8HR 20 Days #60 tablet Divalproex [Depakote] 500 mg PO BID tablet. metFORMIN HCL [Glucophage] 500 mg PO PC-SUPPER #0 Discharge Medication List Montelukast Sodium [Singulair] 10 mg PO HS 06/01/16 [History] Albuterol Inhaler [Ventolin Hfa Inhaler] 2 puff INHALATION RT-Q6H PRN 10/15/17 [History] Atorvastatin [Lipitor] 80 mg PO PC-SUPPER 10/15/17 [History] Beclomethasone Dipropionate [Qvar 80 mcg] 2 puff INHALATION RT-BID 10/15/17 [History] Fenofibrate Nanocrystallized [Fenofibrate] 145 mg PO PC-SUPPER 10/15/17 [History] Gabapentin [Neurontin] 300 mg PO TID 10/15/17 [History] Metoprolol Succinate (ER) [Toprol XL] 25 mg PO HS 10/15/17 [History] Venlafaxine HCl [Effexor XR] 150 mg PO HS 10/15/17 [History] traZODone HCL 150 mg PO HS 10/15/17 [History] Dicyclomine [Bentyl] 20 mg PO TID 01/10/19 [History] Nitroglycerin Sl Tabs [Nitrostat] 0.4 mg SUBLINGUAL Q5M PRN 01/10/19 [History] Leucovorin 10 mg PO Q8HR 20 Days #60 tablet 01/26/19 [Rx] Divalproex [Depakote] 500 mg PO BID tablet. 01/27/19 [Rx] metFORMIN HCL [Glucophage] 500 mg PO PC-SUPPER #0 02/19/19 [Rx] Follow up Appointment(s)/Referral(s): Guille Rojas MD [STAFF PHYSICIAN] - 1-2 Days Veronika Dotson MD [Primary Care Provider] - 1-2 days Ambulatory/Diagnostic Orders: Complete Blood Count w/diff [LAB.AMB] Time Frame: 2 Days, Location: None Selected Patient Instructions/Handouts: Ureteral Stones (DC), Pancytopenia (DC) Activity/Diet/Wound Care/Special Instructions: Resume metformin on 02/22/2019 Patient to present to oncology office for CBC blood draw on 02/21/2019 Discharge Disposition: HOME SELF-CARE
[2019-02-19 15:01] VITALS: PULSE 75
== END 2019-02-19 17:58 | disposition home or self-care (01) | DRG 809 ==
LOC: EC 19:56 → 3NMEDONC 23:42
PROVIDERS: ADMIT Internal Medicine; ATTEND Internal Medicine
PROC: 30233R1 Transfusion of Nonautologous Platelets into Peripheral Vein, Percutaneous Approach (ICD-10-PCS; 2019-02-15)
PROC: 30233N1 Transfusion of Nonautologous Red Blood Cells into Peripheral Vein, Percutaneous Approach (ICD-10-PCS; 2019-02-15)
PROC: 07DR3ZX Extraction of Iliac Bone Marrow, Percutaneous Approach, Diagnostic (ICD-10-PCS; principal; 2019-02-19 12:00)
DX: D61.818 Other pancytopenia (principal); N20.1 Calculus of ureter; E11.9 Type 2 diabetes mellitus without complications; E78.5 Hyperlipidemia, unspecified; F17.210 Nicotine dependence, cigarettes, uncomplicated; F31.9 Bipolar disorder, unspecified; F43.10 Post-traumatic stress disorder, unspecified; G47.33 Obstructive sleep apnea (adult) (pediatric); Z99.89 Dependence on other enabling machines and devices; I10 Essential (primary) hypertension; I25.10 Atherosclerotic heart disease of native coronary artery without angina pectoris; I25.2 Old myocardial infarction; J45.909 Unspecified asthma, uncomplicated; K21.9 Gastro-esophageal reflux disease without esophagitis; K76.0 Fatty (change of) liver, not elsewhere classified; Z53.9 Procedure and treatment not carried out, unspecified reason; Z79.84 Long term (current) use of oral hypoglycemic drugs; Z79.899 Other long term (current) drug therapy; Z80.1 Family history of malignant neoplasm of trachea, bronchus and lung; Z82.49 Family history of ischemic heart disease and other diseases of the circulatory system; Z82.5 Family history of asthma and other chronic lower respiratory diseases; Z83.3 Family history of diabetes mellitus; Z80.3 Family history of malignant neoplasm of breast; Z87.442 Personal history of urinary calculi; Z95.5 Presence of coronary angioplasty implant and graft; Z96.651 Presence of right artificial knee joint; Z83.2 Family history of diseases of the blood and blood-forming organs and certain disorders involving the immune mechanism; Z87.19 Personal history of other diseases of the digestive system; M19.90 Unspecified osteoarthritis, unspecified site; Z88.6 Allergy status to analgesic agent; Z88.5 Allergy status to narcotic agent
CPT/HCPCS: 20225; 36415; 38222; 74177; 77012; 80048; 80053; 81001; 82272; 83605; 83690; 83880; 85025; 85045; 85049; 85610; 86850; 86900; 86901; 86920; 94640; 96361; 96374; 96375; 99285

== ENCOUNTER 2019-02-27 15:48 | Inpatient (IN) | payer MEDICARE, OTHER ==
[2019-03-03] MEDS ORDERED: ONDANSETRON 4 MG/2 ML VIAL IVP PRN (06:00)
[2019-03-03] MEDS ORDERED: INFLUENZA VACCINE (6 MOS+) 60 MCG/0.5 ML SYRINGE IM ONE (10:07)
[2019-03-03] MEDS ORDERED: PNEUMOCOCCAL VACC-PNEUMOVAX 23 25 MCG/0.5 ML VIAL IM ONE (10:08)
[2019-03-03 10:47] LABS: ALT 27 U/L (21-72); AST 18 U/L (17-59); African American GFR (CKD) >90 (>60 ml/min/1.73 sqM); Alkaline Phosphatase 52 U/L (38-126); Anion Gap 6 mmol/L; Blood Urea Nitrogen 20 mg/dL (9-20); Calcium 9.1 mg/dL (8.4-10.2); Carbon Dioxide 26 mmol/L (22-30); Chloride 107 mmol/L (98-107); Glucose 75 mg/dL (74-99); Phosphorus 2.8 mg/dL (2.5-4.5); Sodium 139 mmol/L (137-145); Total Bilirubin 0.9 mg/dL (0.2-1.3); Total Protein 6.7 g/dL (6.3-8.2); Uric Acid 4.2 mg/dL (3.5-8.5)
[2019-03-03] MEDS ORDERED: DICYCLOMINE 20 MG TAB PO PRN (10:47)
[2019-03-03] MEDS ORDERED: ALBUTEROL NEBULIZED 2.5 MG/3 ML INHALATION PRN (10:47)
[2019-03-03 10:50] LABS: Anisocytosis Slight; HCT 22.1 % (39.0-53.0); HGB 7.3 gm/dL (13.0-17.5); Hypochromasia Moderate; MCHC 33.1 g/dL (31.0-37.0); MCV 81.5 fL (80.0-100.0); Mean Platelet Volume 6.6; Microcytosis Slight; Poikilocytosis Marked; RBC 2.71 m/uL (4.30-5.90); RDW 19.9 % (11.5-15.5)
--- NOTE | 2019-03-03 10:53 | P.CONS ---
History of Present Illness - Reason for Consult Consult date: 03/03/19 medical managment Requesting physician: Bay Tolliver - Chief Complaint Leukemia inpatient chemotherapy - History of Present Illness This is a 48-year-old male patient who is admitted under oncology services for inpatient chemotherapy. Patient recently underwent bone marrow biopsy and diagnosed with leukemia. Patient has been following with oncology services. Patient will be admitted for 7-8 days while receiving chemotherapy. Patient has a additional medical history of asthma, chest pain, diabetes mellitus, GERD, GI bleed, hyperlipidemia, hypertension, myocardial infarction, osteoarthritis, sleep apnea, neuropathy, colitis, urethral stone, cardiac murmur, nicotine anxiety and bipolar. Patient previously required blood transfusion for low hemoglobin level. At this time patient denies chest pain or shortness of breath. Patient denies nausea vomiting or diarrhea. Patient denies any urinary burning or frequency. Review of Systems Please refer to HPI otherwise unremarkable Past Medical History Past Medical History: Asthma, Chest Pain / Angina, Diabetes Mellitus, GERD/Reflux, GI Bleed, Hyperlipidemia, Hypertension, Myocardial Infarction ([place]), Osteoarthritis (OA), Sleep Apnea/CPAP/BIPAP Additional Past Medical History / Comment(s): Pt recently admitted to [facility] on 02/14/19 with L lower abdominal pain/L urethral stone/pancytopenia under the care of hematology and had BMA. Other hx: AML newly diagnosed, NIDDM type II, neuropathy bilateral hands/feet, colitis, lower GI bleed, ASHLEY with Cpap, chronic cervical/lumbar pain-has neurostimulator to both sites, bilateral carpal tunnel syndrome, occasional tinnitis, "soft" cardiac murmur. Last Myocardial Infarction Date:: 2007 per pt History of Any Multi-Drug Resistant Organisms: None Reported Past Surgical History: Heart Catheterization With Stent, Hernia Repair, Joint Replacement Additional Past Surgical History / Comment(s): Bone marrow aspiration/bx, rt knee arthroscopy x3, R total knee with revisoin, lt knee arthroscopy, cardiac stent x1 2007 per pt, stent placed for kidney stone 07/04/2016. Kidney stent has been removed. COLONOSCOPY. neuro stimulator implant cervial and recent another one in lumbar area, L inguinal hernia repair. Past Anesthesia/Blood Transfusion Reactions: No Reported Reaction Date of Last Stent Placement:: 2007 per pt Smoking Status: Current every day smoker - Past Family History Father Family Medical History: Congestive Heart Failure (CHF), Deep Vein Thrombosis (DVT), Myocardial Infarction ([place]), Pulmonary Embolus Additional Family Medical History / Comment(s): [place] at age 38. "hole in colon" Mother Family Medical History: Cancer, COPD, Diabetes Mellitus, Hyperlipidemia Additional Family Medical History / Comment(s): Mother had breast and lung cancer. She of lung cancer in her 60s. Sister(s) Family Medical History: Diabetes Mellitus, Liver Disease Additional Family Medical History / Comment(s): bi-polar, anxiety. hysterectomy, fatty liver Brother(s) History Unknown: Yes Medications and Allergies Home Medications Medication Instructions Recorded Confirmed Type Montelukast Sodium [Singulair] 10 mg PO HS 06/01/16 03/03/19 History Albuterol Inhaler [Ventolin Hfa 2 puff INHALATION RT-Q6H PRN 10/15/17 03/03/19 History Inhaler] Atorvastatin [Lipitor] 80 mg PO PC-SUPPER 10/15/17 03/03/19 History Beclomethasone Dipropionate [Qvar 2 puff INHALATION RT-BID 10/15/17 03/03/19 History 80 mcg] Fenofibrate Nanocrystallized 145 mg PO PC-SUPPER 10/15/17 03/03/19 History [Fenofibrate] Metoprolol Succinate (ER) [Toprol 25 mg PO HS 10/15/17 03/03/19 History XL] Venlafaxine HCl [Effexor XR] 150 mg PO HS 10/15/17 03/03/19 History traZODone HCL 150 mg PO HS 10/15/17 03/03/19 History Dicyclomine [Bentyl] 20 mg PO TID 01/10/19 03/03/19 History Nitroglycerin Sl Tabs [Nitrostat] 0.4 mg SUBLINGUAL Q5M PRN 01/10/19 03/03/19 History Leucovorin 10 mg PO Q8HR 20 Days #60 tablet 01/26/19 03/03/19 Rx Divalproex [Depakote] 500 mg PO BID tablet. 01/27/19 03/03/19 Rx metFORMIN HCL [Glucophage] 500 mg PO PC-SUPPER #0 02/19/19 03/03/19 Rx Allergies Allergy/AdvReac Type Severity Reaction Status Date / Time naproxen [From Naprosyn] Allergy Unknown Rash/Hives Verified 03/03/19 10:02 adhesive tape Allergy Rash/Hives Verified 03/03/19 10:02 ibuprofen Allergy Itching Verified 03/03/19 10:02 mold Allergy Unknown Verified 03/03/19 10:02 carrot AdvReac Dyspnea Verified 03/03/19 10:02 chocolate flavor AdvReac Dyspnea Verified 03/03/19 10:02 grass pollen-perennial rye, AdvReac Dyspnea Verified 03/03/19 10:02 standar Physical Exam Vitals: Intake and Output 03/02/19 03/03/19 03/03/19 22:59 06:59 14:59 Other: Weight 88.813 kg Head normocephalic Neck supple Lungs clear to auscultation bilaterally no wheezing or crackles Heart regular rate and rhythm S1-S2, no rub or gallop Abdomen is soft nontender nondistended positive bowel sounds no hepatosplenomegaly Extremities no edema Neuro alert and orientated to 3 Assessment and Plan Assessment: 1. Acute myeloid leukemia newly diagnosed. Patient admitted for inpatient chemotherapy under oncology services. Patient had bone marrow biopsy on 02/19/2019 2. History of left ureteral calculus. Patient was previously evaluated by urology services no intervention at that time 3. 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 History of essential hypertension 5. History of depression 6. History of diabetes mellitus type 2. Metformin on hold. Sliding scale insulin ordered 7. History of coronary artery disease 8. History of obstructive sleep apnea maintained on CPAP 9. History of osteoarthritis 10. Hyperlipidemia. Patient maintained on Lipitor and fenofibrate 11. History of bipolar depression. Home meds resumed Thank you for this consultation we will continue to follow patient closely throughout stay Time with Patient: Greater than 30 (Greater than 60% of the total time spent in counseling and coordination of care. I performed an examination of the patient and discussed their management with the Nurse Practitioner. I have reviewed the Nurse Practitioner's notes and agree with the documented findings and plan of care)
[2019-03-03 11:26] LABS: Band Neutrophils % 4 %; Metamyelocytes % 2 %; Myelocytes % 4 %; Neutrophils % (M) 25 %; Nucleated Red Blood Cells 13 /100 WBC (0-0); Total Cells Counted 200
[2019-03-03 11:27] LABS: Blast Cells # (M) 0.04 k/uL (0); Lymphocytes # (M) 1.06 k/uL (1.0-4.8); Metamyelocytes # (M) 0.04 k/uL (0); Monocytes # (M) 0.24 k/uL (0-1.0); Myelocytes # (M) 0.08 k/uL (0)
[2019-03-03 11:28] LABS: Platelet Count 11 k/uL (150-450); Polychromasia Present
[2019-03-03] MEDS: DEXAMETHASONE SOD PHOSPHATE 10 MG/ML 1 ML VIAL IV SCH (12:38)
[2019-03-03] MEDS: FAMOTIDINE 20 MG/2 ML VIAL IVP SCH (12:38)
[2019-03-03] MEDS: SODIUM CHLORIDE 0.9% 1,000 ML IV SCH ×3 (12:38→22:44)
[2019-03-03] MEDS: ONDANSETRON 16 MG in SODIUM CHLORIDE 0.9% 50 ML IVPB SCH (12:42)
[2019-03-03] MEDS ORDERED: SALT AND SODA MOUTHWASH 1,000 ML PO PRN (12:43)
--- NOTE | 2019-03-03 12:51 | IR ---
EXAMINATION TYPE: IR cvc insert >=5 years DATE OF EXAM: 03/03/2019 COMPARISON: NONE CLINICAL HISTORY: Leukemia Needs long-term intravenous access for hematoma therapy. PROCEDURE: After informed consent, the skin overlying the left basilic vein was localized with ultrasound and no doreen to be compressible and patent. An ultrasound image was obtained and submitted on the patient's c charles. The overlying skin was prepped and draped and Lidocaine was used for local anesthesia. A skin abena was made with a scalpel. Access was gained to the vein under ultrasound guidance with a 21 gau ge needle and a 0.018 inch wire was advanced. Access site was dilated with Peel-Away sheath and cath eter tailored to the appropriate length and advanced such that the distal tip is at the cavoatrial ju nction. Spot image was obtained verifying placement. Catheter was fixed to the skin and a sterile d ressing was placed following hemostasis. Catheter was aspirated and flushed with saline. Patient wa s discharged in stable condition without complication.Maximal barrier technique is utilized. Ultraso und image is documented on the chart. Ultrasound used with sterile technique. Fluoro time and fluoroscopic images submitted to document procedure: 1.2 minutes, 89 intraoperative i víctor IMPRESSION: STATUS POST ULTRASOUND AND FLUOROSCOPIC GUIDED PICC LINE PLACEMENT, READY FOR USE. THIS PROCEDURE WAS PERFORMED BY THE UNDERSIGNED.
[2019-03-03 12:56] LABS: Glucose,Whole Blood 93 mg/dL (75-99)
[2019-03-03] MEDS: INSULIN ASPART (NovoLOG) 100 UNIT/ML VIAL SQ SCH ×3 (13:04→22:42)
[2019-03-03] MEDS: SALT AND SODA MOUTHWASH 1,000 ML PO SCH ×2 (13:57→18:36)
[2019-03-03] MEDS ORDERED: LEUCOVORIN 5 MG TAB PO SCH ×2 (16:00)
[2019-03-03 17:32] LABS: Glucose,Whole Blood 136 mg/dL (75-99)
--- NOTE | 2019-03-03 18:01 | P.HPIM ---
History of Present Illness H&P Date: 03/03/19 Chief Complaint: admit for Acute erythroid leukemia treatement 7+3 regimen Mr. Burnham is a very pleasant male patient who was seen inpatient in Jan for pancytopenia. He has had multiple hospitalizations for chest pain (no cardiac cause), left sided parathesia (no stroke diagnosed), and abd pain (found to have hepatosplenomegaly, no adenopathy), SPEP/immunofixation showed no monoclonal paraprotein, kappa/lambda light chains were within normal defined limits, rheumatoid factor was less than 4. There is felt that there was a possibility that patient could be experiencing marrow suppression from medications. There was some delay in getting patient seen to get his medications adjusted but, eventually Depakote was reduced from 3 times a day to twice a day and rescue leucovorin was finally started. His counts did not recover that was found during another admission in late 02/13 when admitted for abdominal pain. He had a bone marrow aspiration biopsy that was performed by radiology on 02/19/19. This had to be performed under guidance as the patient h as bilateral spinal cord pain stimulators over each and iliac crests. Results were marked increase in erythroid elements with pro-normoblast greater than 50%, consistent with acute erythroid leukemia. Dr. Rojas met with pt and family and reviewed diagnosis, prognosis, treatment options, side effects. Pt and family agreed to proceed. He is admitted for treatment, recommendations per guidelines, induction chemotherapy with 7+3 regimen. Echocardiogram and PICC ordered. Pt denies headaches, fevers, oral irritation, nausea, appetite is good, no chest pain, SOB, abd pain, indigestion, heartburn, diarrhea, constipation, dysuria, hematuria, swelling, pt is fully ambulatory, no pain. Review of Systems 14 point ROS is negative except as stated in HPI Past Medical History Past Medical History: Asthma, Chest Pain / Angina, Diabetes Mellitus, GERD/Reflux, GI Bleed, Hyperlipidemia, Hypertension, Myocardial Infarction ([place]), Osteoarthritis (OA), Sleep Apnea/CPAP/BIPAP Additional Past Medical History / Comment(s): Pt recently admitted to [facility] on 02/14/19 with L lower abdominal pain/L urethral stone/pancytopenia under the care of hematology and had BMA. Other hx: AML newly diagnosed, NIDDM type II, neuropathy bilateral hands/feet, colitis, lower GI bleed, ASHLEY with Cpap, chronic cervical/lumbar pain-has neurostimulator to both sites, bilateral carpal tunnel syndrome, occasional tinnitis, "soft" cardiac murmur. Last Myocardial Infarction Date:: 2007 per pt History of Any Multi-Drug Resistant Organisms: None Reported Past Surgical History: Heart Catheterization With Stent, Hernia Repair, Joint Replacement Additional Past Surgical History / Comment(s): Bone marrow aspiration/bx, rt knee arthroscopy x3, R total knee with revisoin, lt knee arthroscopy, cardiac stent x1 2007 per pt, stent placed for kidney stone 07/04/2016. Kidney stent has been removed. COLONOSCOPY. neuro stimulator implant cervial and recent another one in lumbar area, L inguinal hernia repair. Past Anesthesia/Blood Transfusion Reactions: No Reported Reaction Date of Last Stent Placement:: 2007 per pt Past Psychological History: Anxiety, Depression Additional Psychological History / Comment(s): pt previously attempted suicide Smoking Status: Current every day smoker Past Alcohol Use History: None Reported Past Drug Use History: None Reported - Past Family History Father Family Medical History: Congestive Heart Failure (CHF), Deep Vein Thrombosis (DVT), Myocardial Infarction ([place]), Pulmonary Embolus Additional Family Medical History / Comment(s): [place] at age 38. "hole in colon" Mother Family Medical History: Cancer, COPD, Diabetes Mellitus, Hyperlipidemia Additional Family Medical History / Comment(s): Mother had breast and lung cancer. She of lung cancer in her 60s. Sister(s) Family Medical History: Diabetes Mellitus, Liver Disease Additional Family Medical History / Comment(s): bi-polar, anxiety. hysterectomy, fatty liver Brother(s) History Unknown: Yes Medications and Allergies Home Medications Medication Instructions Recorded Confirmed Type Montelukast Sodium [Singulair] 10 mg PO HS 06/01/16 03/03/19 History Albuterol Inhaler [Ventolin Hfa 2 puff INHALATION RT-Q6H PRN 10/15/17 03/03/19 History Inhaler] Atorvastatin [Lipitor] 80 mg PO PC-SUPPER 10/15/17 03/03/19 History Beclomethasone Dipropionate [Qvar 2 puff INHALATION RT-BID 10/15/17 03/03/19 History 80 mcg] Fenofibrate Nanocrystallized 145 mg PO PC-SUPPER 10/15/17 03/03/19 History [Fenofibrate] Metoprolol Succinate (ER) [Toprol 25 mg PO HS 10/15/17 03/03/19 History XL] Venlafaxine HCl [Effexor XR] 150 mg PO HS 10/15/17 03/03/19 History traZODone HCL 150 mg PO HS 10/15/17 03/03/19 History Dicyclomine [Bentyl] 20 mg PO TID 01/10/19 03/03/19 History Nitroglycerin Sl Tabs [Nitrostat] 0.4 mg SUBLINGUAL Q5M PRN 01/10/19 03/03/19 History Leucovorin 10 mg PO Q8HR 20 Days #60 tablet 01/26/19 03/03/19 Rx Divalproex [Depakote] 500 mg PO BID tablet. 01/27/19 03/03/19 Rx metFORMIN HCL [Glucophage] 500 mg PO PC-SUPPER #0 02/19/19 03/03/19 Rx Allergies Allergy/AdvReac Type Severity Reaction Status Date / Time naproxen [From Naprosyn] Allergy Unknown Rash/Hives Verified 03/03/19 10:02 adhesive tape Allergy Rash/Hives Verified 03/03/19 10:02 ibuprofen Allergy Itching Verified 03/03/19 10:02 mold Allergy Unknown Verified 03/03/19 10:02 carrot AdvReac Dyspnea Verified 03/03/19 10:02 chocolate flavor AdvReac Dyspnea Verified 03/03/19 10:02 grass pollen-perennial rye, AdvReac Dyspnea Verified 03/03/19 10:02 standar Physical Exam Vitals: Vital Signs Temp Pulse Resp BP Pulse Ox 03/03/19 11:57 96.7 F L 89 17 121/59 97 03/03/19 09:00 97 F L 107 H 17 135/68 97 Intake and Output 03/03/19 03/03/19 03/03/19 06:59 14:59 22:59 Intake Total 0 Balance 0 Intake: Blood Product 0 Platelet Irr Pheresis 0 Acda1 Unit [id number] Other: Weight 88.813 kg - Constitutional General appearance: average body habitus, cooperative, no acute distress - EENT Eyes: anicteric sclerae, EOMI, poor dentition, normal appearance ENT: hearing grossly normal, normal oropharynx - Neck Neck: no lymphadenopathy - Respiratory Respiratory: bilateral: CTA - Cardiovascular Rhythm: regular Heart sounds: normal: S1, S2 Abnormal Heart Sounds: no systolic murmur, no diastolic murmur, no rub, no S3 Gallop, no S4 Gallop, no click, no other - Gastrointestinal General gastrointestinal: no absent bowel sounds, no decreased bowel sounds, no distended, no hepatomegaly, no hyperactive bowel sounds, normal bowel sounds, no organomegaly, no rigid, no scaphoid, soft, no splenomegaly, no tenderness, no umbilical hernia, no ventral hernia - Integumentary Integumentary: normal - Neurologic Neurologic: CNII-XII intact - Musculoskeletal Musculoskeletal: generalized weakness, strength equal bilaterally - Psychiatric Psychiatric: A&O x's 3, appropriate affect, intact judgment & insight Results CBC & Chem 7: 03/03/19 10:07 03/03/19 10:07 Labs: Abnormal Lab Results - Last 24 Hours (Table) 03/03/19 03/03/19 Range/Units 10: 17:31 WBC 2.0 L (3.8-10.6) k/uL RBC 2.71 L (4.30-5.90) m/uL Hgb 7.3 L (13.0-17.5) gm/dL Hct 22.1 L (39.0-53.0) % RDW 19.9 H (11.5-15.5) % Plt Count 11 L* (150-450) k/uL Blast Cells % 2 H* % Neutrophils # (Manual) 0.50 L (1.3-7.7) k/uL Metamyelocytes # (Man) 0.04 H (0) k/uL Myelocytes # (Manual) 0.08 H (0) k/uL Blast Cells # (Man) 0.04 H (0) k/uL Nucleated RBCs 13 H (0-0) /100 WBC POC Glucose (mg/dL) 136 H (75-99) mg/dL Comments: Echo report reviewed Thrombosis Risk Factor Assmnt - DVT/VTE Prophylaxis DVT/VTE Prophylaxis: Mechanical Prophylaxis ordered, Contraindicated - See note - Choose All That Apply Any of the Below Risk Factors Present?: Yes Each Factor Represents 1 point: Age 41-60 years, Obesity (BMI >25) Other Risk Factors: Yes Each Risk Factor Represents 2 Points: Malignancy Each Risk Factor Represents 3 Points: Family history of DVT/PE (low platelets,connot give anticoagulation) Other congenital or acquired thrombophilia - If yes, enter type in comment: No Thrombosis Risk Factor Assessment Total Risk Factor Score: 7 Thrombosis Risk Factor Assessment Level: High Risk Assessment and Plan (1) Acute erythroid leukemia Current Visit: Yes Status: Acute Priority: High Code(s): C94.00 - ACUTE ERYTHROID LEUKEMIA, NOT HAVING ACHIEVED REMISSION SNOMED Code(s): 87101769 (2) Pancytopenia Narrative/Plan: Due to disease. CBC daily-conservative transfusion only. MUST have irradiated blood products. CMV negative until CMV status known. Current Visit: Yes Status: Acute Priority: High Code(s): D61.818 - OTHER PANCYTOPENIA SNOMED Code(s): 384169046 Plan: Admit for 7+3 treatment. Inpatient for at least 7 days PICC line placed for chemo ECHO baseline for cardiotoxic drugs done 01/26 Supportive meds Fluid requirements Ambulation requirements Orders reviewed Consult PCP for medical mgmt while inpatient All pt and sisters questions answered to the best of my ability
[2019-03-03] MEDS: ATORVASTATIN 80 MG TAB PO SCH (18:35)
[2019-03-03] MEDS: FLUTICASONE 110 MCG INHALER INHALATION SCH (20:05)
[2019-03-03] MEDS: FENOFIBRATE 160 MG TAB PO SCH (20:46)
[2019-03-03] MEDS ORDERED: DAUNORUBICIN IV SCH (21:00)
[2019-03-03] MEDS ORDERED: CYTARABINE IV SCH (21:00)
[2019-03-03] MEDS ORDERED: SODIUM CHLORIDE 0.9% IV SCH (21:00)
[2019-03-03 21:03] LABS: Glucose,Whole Blood 195 mg/dL (75-99)
[2019-03-03] MEDS: MONTELUKAST 10 MG TAB PO SCH (22:41)
[2019-03-03] MEDS: METOPROLOL SUCCINATE (ER) 25 MG TAB.ER.24H PO SCH (22:41)
[2019-03-03] MEDS: DIVALPROEX 500 MG TABLET.DR PO SCH (22:42)
[2019-03-03] MEDS: traZODone HCL 100 MG TAB PO SCH (22:42)
[2019-03-03] MEDS: VENLAFAXINE HCL ER 150 MG CAP PO SCH (22:42)
[2019-03-04] MEDS: SODIUM CHLORIDE 0.9% 1,000 ML IV SCH ×2 (05:41→13:47)
[2019-03-04 07:27] LABS: Glucose,Whole Blood 93 mg/dL (75-99)
[2019-03-04] MEDS: INSULIN ASPART (NovoLOG) 100 UNIT/ML VIAL SQ SCH ×4 (07:39→20:29)
[2019-03-04] MEDS: FAMOTIDINE 20 MG/2 ML VIAL IVP SCH (08:14)
[2019-03-04] MEDS: SALT AND SODA MOUTHWASH 1,000 ML PO SCH ×3 (08:14→18:00)
[2019-03-04] MEDS: DEXAMETHASONE SOD PHOSPHATE 10 MG/ML 1 ML VIAL IV SCH (08:14)
[2019-03-04] MEDS: DIVALPROEX 500 MG TABLET.DR PO SCH ×2 (08:15→20:28)
[2019-03-04] MEDS: ONDANSETRON 16 MG in SODIUM CHLORIDE 0.9% 50 ML IVPB SCH (08:18)
[2019-03-04] MEDS: FLUTICASONE 110 MCG INHALER INHALATION SCH ×2 (08:31→19:35)
[2019-03-04 09:01] LABS: ALT 36 U/L (21-72); AST 27 U/L (17-59); African American GFR (CKD) >90 (>60 ml/min/1.73 sqM); Albumin 4.1 g/dL (3.5-5.0); Alkaline Phosphatase 54 U/L (38-126); Anion Gap 8 mmol/L; Blood Urea Nitrogen 17 mg/dL (9-20); Calcium 9.4 mg/dL (8.4-10.2); Carbon Dioxide 27 mmol/L (22-30); Chloride 108 mmol/L (98-107); Glucose 100 mg/dL (74-99); Phosphorus 4.1 mg/dL (2.5-4.5); Potassium 3.9 mmol/L (3.5-5.1); Sodium 143 mmol/L (137-145); Total Bilirubin 0.7 mg/dL (0.2-1.3); Uric Acid 4.4 mg/dL (3.5-8.5)
[2019-03-04 09:12] LABS: Anisocytosis Moderate; HGB 7.8 gm/dL (13.0-17.5); Hypochromasia Moderate; MCH 27.8 pg (25.0-35.0); MCHC 33.8 g/dL (31.0-37.0); MCV 82.3 fL (80.0-100.0); Mean Platelet Volume 7.6; Microcytosis Slight; Poikilocytosis Marked
--- NOTE | 2019-03-04 10:27 | P.PN ---
Subjective Progress Note Date: 03/04/19 This is a 48-year-old male patient who is admitted under oncology services for inpatient chemotherapy. Patient recently underwent bone marrow biopsy and diagnosed with leukemia. Patient has been following with oncology services. Patient will be admitted for 7-8 days while receiving chemotherapy. Patient has a additional medical history of asthma, chest pain, diabetes mellitus, GERD, GI bleed, hyperlipidemia, hypertension, myocardial infarction, osteoarthritis, sleep apnea, neuropathy, colitis, urethral stone, cardiac murmur, nicotine anxiety and bipolar. Patient previously required blood transfusion for low hemoglobin level. At this time patient denies chest pain or shortness of breath. Patient denies nausea vomiting or diarrhea. Patient denies any urinary burning or frequency. On 03/04/2019 patient's alert and oriented 3. Patient is in the process of completing first round of chemotherapy. PICC line is in place. Patient had one episode of nausea in which she was treated with Zofran and symptoms resolved. At this time patient denies cough or shortness of breath. Patient denies upper respiratory infections. Patient denies any source to mouth. Patient denies any burning with urination. Patient denies any open wounds. Objective - Vital Signs Vital signs: Vital Signs Temp 96.6 F L 03/04/19 05:35 Pulse 82 03/04/19 05:35 Resp 18 03/04/19 05:35 BP 103/56 03/04/19 05:35 Pulse Ox 97 03/04/19 05:35 Intake & Output 03/03/19 03/04/19 03/04/19 18:59 06:59 18:59 Intake Total 2612 1963 Balance 2612 1963 Weight 88.813 kg Intake: Intake, IV Titration 800 1964 Amount Cytarabine/Pf 400 mg In 264 Sodium Chloride 0.9% 500 ml 500 ml @ 21.667 mls/hr IV Q24H [facility] Rx#: [id number] Ondansetron 16 mg In 50 Sodium Chloride 0.9% 50 ml @ 232 mls/hr IVPB DAILY [facility] Rx#:[id number] Sodium Chloride 0.9% 1, 750 1700 000 ml @ 125 mls/hr IV . Q8H [facility] Rx#:[id number] Oral 1500 Blood Product 312 Platelet Irr Pheresis 312 Acda1 Unit [id number] Other: Voiding Method Toilet - Exam Head normocephalic Neck supple Lungs clear to auscultation bilaterally no wheezing or crackles Heart regular rate and rhythm S1-S2, no rub or gallop Abdomen is soft nontender nondistended positive bowel sounds no hepatosple nomegaly Extremities no edema Neuro alert and orientated to 3 - Labs CBC & Chem 7: 03/03/19 10:07 03/04/19 08:05 Labs: Abnormal Lab Results - Last 24 Hours (Table) 03/03/19 03/03/19 03/03/19 Range/Units 10:07 17:31 21:02 WBC 2.0 L (3.8-10.6) k/uL RBC 2.71 L (4.30-5.90) m/uL Hgb 7.3 L (13.0-17.5) gm/dL Hct 22.1 L (39.0-53.0) % RDW 19.9 H (11.5-15.5) % Plt Count 11 L* (150-450) k/uL Blast Cells % 2 H* % Neutrophils # (Manual) 0.50 L (1.3-7.7) k/uL Metamyelocytes # (Man) 0.04 H (0) k/uL Myelocytes # (Manual) 0.08 H (0) k/uL Blast Cells # (Man) 0.04 H (0) k/uL Nucleated RBCs 13 H (0-0) /100 WBC Chloride (98-107) mmol/L Glucose (74-99) mg/dL POC Glucose (mg/dL) 136 H 195 H (75-99) mg/dL 03/04/19 Range/Units 08:05 WBC (3.8-10.6) k/uL RBC (4.30-5.90) m/uL Hgb (13.0-17.5) gm/dL Hct (39.0-53.0) % RDW (11.5-15.5) % Plt Count (150-450) k/uL Blast Cells % % Neutrophils # (Manual) (1.3-7.7) k/uL Metamyelocytes # (Man) (0) k/uL Myelocytes # (Manual) (0) k/uL Blast Cells # (Man) (0) k/uL Nucleated RBCs (0-0) /100 WBC Chloride 108 H (98-107) mmol/L Glucose 100 H (74-99) mg/dL POC Glucose (mg/dL) (75-99) mg/dL Assessment and Plan Assessment: 1. Acute erythoid leukemia newly diagnosed. Patient admitted for inpatient chemotherapy under oncology services. Patient had bone marrow biopsy on 02/19/2019. Patient completed day 1 of 7+3 treatment 2. History of left ureteral calculus. Patient was previously evaluated by urology services no intervention at that time 3. 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 History of essential hypertension 5. History of depression 6. History of diabetes mellitus type 2. Metformin on hold. Sliding scale insulin ordered 7. History of coronary artery disease 8. History of obstructive sleep apnea maintained on CPAP 9. History of osteoarthritis 10. Hyperlipidemia. Patient maintained on Lipitor and fenofibrate 11. History of bipolar depression. Home meds resumed Thank you for this consultation we will continue to follow patient closely throughout stay
[2019-03-04 10:57] VITALS: BMI 29.5
[2019-03-04 11:01] LABS: Platelet Count 14 k/uL (150-450)
[2019-03-04 11:29] LABS: Glucose,Whole Blood 122 mg/dL (75-99)
[2019-03-04 12:18] LABS: Band Neutrophils % 2 %; Metamyelocytes % 3 %; Neutrophils % (M) 30 %; Nucleated Red Blood Cells 23 /100 WBC (0-0); Total Cells Counted 200
[2019-03-04 12:19] LABS: Blast Cells # (M) 0.05 k/uL (0); Eosinophils # (M) 0.02 k/uL (0-0.7); Lymphocytes # (M) 1.34 k/uL (1.0-4.8); Metamyelocytes # (M) 0.07 k/uL (0); Monocytes # (M) 0.19 k/uL (0-1.0); WBC 2.4 k/uL (3.8-10.6)
[2019-03-04 12:20] LABS: Polychromasia Present
[2019-03-04] MEDS: DAUNORUBICIN IV SCH (13:24)
[2019-03-04] MEDS: CYTARABINE IV SCH (13:46)
[2019-03-04] MEDS: SODIUM CHLORIDE 0.9% IV SCH (13:46)
[2019-03-04 17:25] LABS: Glucose,Whole Blood 191 mg/dL (75-99)
[2019-03-04] MEDS: ATORVASTATIN 80 MG TAB PO SCH (18:01)
[2019-03-04] MEDS: FENOFIBRATE 160 MG TAB PO SCH (18:01)
[2019-03-04 19:59] LABS: Glucose,Whole Blood 225 mg/dL (75-99)
[2019-03-04] MEDS: traZODone HCL 100 MG TAB PO SCH (20:28)
[2019-03-04] MEDS: VENLAFAXINE HCL ER 150 MG CAP PO SCH (20:28)
[2019-03-04] MEDS: METOPROLOL SUCCINATE (ER) 25 MG TAB.ER.24H PO SCH (20:29)
[2019-03-04] MEDS: MONTELUKAST 10 MG TAB PO SCH (20:29)
[2019-03-04] MEDS: HYDROcodone/APAP 10-325MG 1 EACH TAB PO PRN (20:46)
[2019-03-05] MEDS: SODIUM CHLORIDE 0.9% 1,000 ML IV SCH ×4 (00:24→19:56)
[2019-03-05 07:24] LABS: ALT 71 U/L (21-72); AST 42 U/L (17-59); African American GFR (CKD) >90 (>60 ml/min/1.73 sqM); Albumin 3.2 g/dL (3.5-5.0); Alkaline Phosphatase 41 U/L (38-126); Anion Gap 6 mmol/L; Blood Urea Nitrogen 15 mg/dL (9-20); Calcium 8.7 mg/dL (8.4-10.2); Carbon Dioxide 28 mmol/L (22-30); Chloride 109 mmol/L (98-107); Glucose 77 mg/dL (74-99); Phosphorus 4.1 mg/dL (2.5-4.5); Sodium 143 mmol/L (137-145); Total Bilirubin 0.7 mg/dL (0.2-1.3); Total Protein 5.7 g/dL (6.3-8.2); Uric Acid 4.1 mg/dL (3.5-8.5)
[2019-03-05] MEDS: HYDROcodone/APAP 10-325MG 1 EACH TAB PO PRN ×3 (07:53→20:34)
[2019-03-05] MEDS: ONDANSETRON 16 MG in SODIUM CHLORIDE 0.9% 50 ML IVPB SCH (07:54)
[2019-03-05] MEDS: DEXAMETHASONE SOD PHOSPHATE 10 MG/ML 1 ML VIAL IV SCH (07:55)
[2019-03-05] MEDS: FAMOTIDINE 20 MG/2 ML VIAL IVP SCH (07:56)
[2019-03-05 07:57] LABS: Anisocytosis Moderate; Hypochromasia Moderate; MCH 26.7 pg (25.0-35.0); MCHC 31.5 g/dL (31.0-37.0); MCV 84.7 fL (80.0-100.0); Mean Platelet Volume 4.3; Microcytosis Slight; Poikilocytosis Moderate; RBC 2.35 m/uL (4.30-5.90); RDW 20.4 % (11.5-15.5)
[2019-03-05] MEDS: DIVALPROEX 500 MG TABLET.DR PO SCH ×2 (07:58→20:28)
[2019-03-05] MEDS: FLUTICASONE 110 MCG INHALER INHALATION SCH ×2 (09:09→20:17)
[2019-03-05 09:19] LABS: HGB 6.3 gm/dL (13.0-17.5)
[2019-03-05 09:20] LABS: Glucose,Whole Blood 172 mg/dL (75-99)
[2019-03-05 09:20] LABS: HCT 19.9 % (39.0-53.0); Platelet Count 8 k/uL (150-450)
[2019-03-05] MEDS: INSULIN ASPART (NovoLOG) 100 UNIT/ML VIAL SQ SCH ×4 (10:01→20:28)
[2019-03-05] MEDS: SALT AND SODA MOUTHWASH 1,000 ML PO SCH ×3 (10:33→18:07)
--- NOTE | 2019-03-05 10:54 | P.PN ---
Subjective Progress Note Date: 03/05/19 This is a 48-year-old male patient who is admitted under oncology services for inpatient chemotherapy. Patient recently underwent bone marrow biopsy and diagnosed with leukemia. Patient has been following with oncology services. Patient will be admitted for 7-8 days while receiving chemotherapy. Patient has a additional medical history of asthma, chest pain, diabetes mellitus, GERD, GI bleed, hyperlipidemia, hypertension, myocardial infarction, osteoarthritis, sleep apnea, neuropathy, colitis, urethral stone, cardiac murmur, nicotine anxiety and bipolar. Patient previously required blood transfusion for low hemoglobin level. At this time patient denies chest pain or shortness of breath. Patient denies nausea vomiting or diarrhea. Patient denies any urinary burning or frequency. On 03/04/2019 patient's alert and oriented 3. Patient is in the process of completing first round of chemotherapy. PICC line is in place. Patient had one episode of nausea in which she was treated with Zofran and symptoms resolved. At this time patient denies cough or shortness of breath. Patient denies upper respiratory infections. Patient denies any source to mouth. Patient denies any burning with urination. Patient denies any open wounds. On 03/05/2019 patient is alert and oriented 3. Patient is resting comfortably in bed. Patient denies chest pain or shortness breath. Patient denies nausea vomiting or diarrhea. Patient denies any urinary burning or frequency. Patient denies any open sores mouth. Patient currently received second dose of inpatient chemo Objective - Vital Signs Vital signs: Vital Signs Temp 98.4 F 03/05/19 05:00 Pulse 85 03/05/19 05:00 Resp 16 03/05/19 05:00 BP 97/61 03/05/19 05:00 Pulse Ox 97 03/05/19 05:00 Intake & Output 03/04/19 03/05/19 03/05/19 18:59 06:59 18:59 Intake Total 1440 3030.5 Balance 1440 3030.5 Weight 90.718 kg Intake: Intake, IV Titration 1540.5 Amount Cytarabine/Pf 400 mg In 130 Sodium Chloride 0.9% 500 ml 500 ml @ 21.667 mls/hr IV Q24H [facility] Rx#: [id number] Cytarabine/Pf 400 mg In 98 Sodium Chloride 0.9% 500 ml 500 ml @ 21.667 mls/hr IV Q24HR@1300 [facility] Rx#: [id number] Sodium Chloride 0.9% 1, 1312.5 000 ml @ 125 mls/hr IV . Q8H [facility] Rx#:[id number] Oral 1440 1490 Other: Voiding Method Toilet Toilet # Voids 2 2 # Bowel Movements 1 - Exam Head normocephalic Neck supple Lungs clear to auscultation bilaterally no wheezing or crackles Heart regular rate and rhythm S1-S2, no rub or gallop Abdomen is soft nontender nondistended positive bowel sounds no hepatosplenomegaly Extremities no edema Neuro alert and orientated to 3 - Labs CBC & Chem 7: 03/04/19 08:05 03/05/19 06:45 Labs: Abnormal Lab Results - Last 24 Hours (Table) 03/04/19 03/04/19 03/04/19 Range/Units 08:05 08:05 11:27 WBC 2.4 L (3.8-10.6) k/uL RBC 2.80 L (4.30-5.90) m/uL Hgb 7.8 L (13.0-17.5) gm/dL Hct 23.0 L (39.0-53.0) % RDW 20.0 H (11.5-15.5) % Plt Count 14 L* (150-450) k/uL Blast Cells % 2 H* % Neutrophils # (Manual) 0.70 L (1.3-7.7) k/uL Metamyelocytes # (Man) 0.07 H (0) k/uL Blast Cells # (Man) 0.05 H (0) k/uL Nucleated RBCs 23 H (0-0) /100 WBC Chloride (98-107) mmol/L POC Glucose (mg/dL) 122 H (75-99) mg/dL Total Protein (6.3-8.2) g/dL Albumin (3.5-5.0) g/dL CMV IgG Ab Reactive H (Non-Reactive) 03/04/19 03/04/19 03/05/19 Range/Units 17:13 19:58 06:45 WBC (3.8-10.6) k/uL RBC 2.35 L (4.30-5.90) m/uL Hgb (13.0-17.5) gm/dL Hct (39.0-53.0) % RDW 20.4 H (11.5-15.5) % Plt Count (150-450) k/uL Blast Cells % % Neutrophils # (Manual) (1.3-7.7) k/uL Metamyelocytes # (Man) (0) k/uL Blast Cells # (Man) (0) k/uL Nucleated RBCs (0-0) /100 WBC Chloride (98-107) mmol/L POC Glucose (mg/dL) 191 H 225 H (75-99) mg/dL Total Protein (6.3-8.2) g/dL Albumin (3.5-5.0) g/dL CMV IgG Ab (Non-Reactive) 03/05/19 03/05/19 Range/Units 06:45 09:18 WBC (3.8-10.6) k/uL RBC (4.30-5.90) m/uL Hgb (13.0-17.5) gm/dL Hct (39.0-53.0) % RDW (11.5-15.5) % Plt Count (150-450) k/uL Blast Cells % % Neutrophils # (Manual) (1.3-7.7) k/uL Metamyelocytes # (Man) (0) k/uL Blast Cells # (Man) (0) k/uL Nucleated RBCs (0-0) /100 WBC Chloride 109 H (98-107) mmol/L POC Glucose (mg/dL) 172 H (75-99) mg/dL Total Protein 5.7 L (6.3-8.2) g/dL Albumin 3.2 L (3.5-5.0) g/dL CMV IgG Ab (Non-Reactive) Assessment and Plan Assessment: 1. Acute erythoid leukemia newly diagnosed. Patient admitted for inpatient chemotherapy under oncology services. Patient had bone marrow biopsy on 02/19/2019. Patient completed day 2 of 7+3 treatment 2. History of left ureteral calculus. Patient was previously evaluated by urology services no intervention at that time 3. 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 History of essential hypertension 5. History of depression 6. History of diabetes mellitus type 2. Metformin on hold. Sliding scale insulin ordered 7. History of coronary artery disease 8. History of obstructive sleep apnea maintained on CPAP 9. History of osteoarthritis 10. Hyperlipidemia. Patient maintained on Lipitor and fenofibrate 11. History of bipolar depression. Home meds resumed Thank you for this consultation we will continue to follow patient closely throughout stay I performed an examination of the patient and discussed their management with the Nurse Practitioner. I have reviewed the Nurse Practitioner's notes and agree with the documented findings and plan of care
[2019-03-05 11:12] LABS: Band Neutrophils % 2 %; Eosinophils # (M) 0.04 k/uL (0-0.7); Lymphocytes # (M) 0.61 k/uL (1.0-4.8); Monocytes # (M) 0.12 k/uL (0-1.0); Neutrophils % (M) 34 %; Nucleated Red Blood Cells 19 /100 WBC (0-0); Total Cells Counted 100; WBC 1.2 k/uL (3.8-10.6)
[2019-03-05 11:14] LABS: RBC Fragments Present; Tear Drop Cells Present
[2019-03-05 11:17] LABS: Glucose,Whole Blood 211 mg/dL (75-99)
--- NOTE | 2019-03-05 14:47 | P.PN ---
Subjective Progress Note Date: 03/05/19 Principal diagnosis: Acute erythroid leukemia (M7). Induction chemo day 2 In follow-up today patient continues to do well, denies any oral irritation, nausea, shortness of breath, cough, indigestion, diarrhea or constipation, black or bloody stool, swelling in the legs, bleeding, he continues to to do laps, drinking plenty of fluids, appetite is good. He has c/o right shoulder pain after walking last night, he denies fall, used heat and cold with little relief, norco helped, he still has FROM, no numbness or tingling, when it aches is radiates down the shoulder to the elbow. No other c/o, questions or concerns Objective - Vital Signs Vital signs: Vital Signs Temp 97.1 F L 03/05/19 14:37 Pulse 92 03/05/19 14:37 Resp 18 03/05/19 14:37 BP 125/60 03/05/19 14:37 Pulse Ox 99 03/05/19 14:37 Intake & Output 03/04/19 03/05/19 03/05/19 18:59 06:59 18:59 Intake Total 1440 3030.5 0 Balance 1440 3030.5 0 Weight 90.718 kg Intake: Intake, IV Titration 1540.5 Amount Cytarabine/Pf 400 mg In 130 Sodium Chloride 0.9% 500 ml 500 ml @ 21.667 mls/hr IV Q24H [facility] Rx#: [id number] Cytarabine/Pf 400 mg In 98 Sodium Chloride 0.9% 500 ml 500 ml @ 21.667 mls/hr IV Q24HR@1300 [facility] Rx#: [id number] Sodium Chloride 0.9% 1, 1312.5 000 ml @ 125 mls/hr IV . Q8H [facility] Rx#:[id number] Oral 1440 1490 Blood Product 0 Platelet Irr Pheresis 2 0 Acda Unit [id number] Other: Voiding Method Toilet Toilet # Voids 2 2 # Bowel Movements 1 - Constitutional General appearance: Present: average body habitus, cooperative, no acute distress - EENT Eyes: Present: anicteric sclerae, EOMI ENT: Present: hearing grossly normal, normal oropharynx - Respiratory Respiratory: bilateral: CTA - Cardiovascular Rhythm: regular Heart sounds: normal: S1, S2 Abnormal Heart Sounds: Absent: systolic murmur, diastolic murmur, rub, S3 Gallop, S4 Gallop, click, other - Peripheral edema leg Peripheral Edema: bilateral: None - Gastrointestinal General gastrointestinal: Present: normal bowel sounds, soft - Integumentary Integumentary: Present: normal turgor, pale - Neurologic Neurologic: Present: CNII-XII intact - Musculoskeletal Musculoskeletal: Present: strength equal bilaterally - Psychiatric Psychiatric: Present: A&O x's 3, appropriate affect, intact judgment & insight - Labs CBC & Chem 7: 03/05/19 06:45 03/05/19 06:45 Labs: Abnormal Lab Results - Last 24 Hours (Table) 03/04/19 03/04/19 03/04/19 Range/Units 08:05 17:13 19:58 WBC (3.8-10.6) k/uL RBC (4.30-5.90) m/uL Hgb (13.0-17.5) gm/dL Hct (39.0-53.0) % RDW (11.5-15.5) % Plt Count (150-450) k/uL Neutrophils # (Manual) (1.3-7.7) k/uL Lymphocytes # (Manual) (1.0-4.8) k/uL Nucleated RBCs (0-0) /100 WBC Chloride (98-107) mmol/L POC Glucose (mg/dL) 191 H 225 H (75-99) mg/dL Total Protein (6.3-8.2) g/dL Albumin (3.5-5.0) g/dL CMV IgG Ab Reactive H (Non-Reactive) Crossmatch 03/05/19 03/05/19 03/05/19 Range/Units 06:45 06:45 09:18 WBC 1.2 L* (3.8-10.6) k/uL RBC 2.35 L (4.30-5.90) m/uL Hgb 6.3 L* D (13.0-17.5) gm/dL Hct 19.9 L* (39.0-53.0) % RDW 20.4 H (11.5-15.5) % Plt Count 8 L* (150-450) k/uL Neutrophils # (Manual) 0.40 L* (1.3-7.7) k/uL Lymphocytes # (Manual) 0.61 L (1.0-4.8) k/uL Nucleated RBCs 19 H (0-0) /100 WBC Chloride 109 H (98-107) mmol/L POC Glucose (mg/dL) 172 H (75-99) mg/dL Total Protein 5.7 L (6.3-8.2) g/dL Albumin 3.2 L (3.5-5.0) g/dL CMV IgG Ab (Non-Reactive) Crossmatch 03/05/19 03/05/19 Range/Units 10:31 11:16 WBC (3.8-10.6) k/uL RBC (4.30-5.90) m/uL Hgb (13.0-17.5) gm/dL Hct (39.0-53.0) % RDW (11.5-15.5) % Plt Count (150-450) k/uL Neutrophils # (Manual) (1.3-7.7) k/uL Lymphocytes # (Manual) (1.0-4.8) k/uL Nucleated RBCs (0-0) /100 WBC Chloride (98-107) mmol/L POC Glucose (mg/dL) 211 H (75-99) mg/dL Total Protein (6.3-8.2) g/dL Albumin (3.5-5.0) g/dL CMV IgG Ab (Non-Reactive) Crossmatch See Detail Assessment and Plan (1) Acute erythroid leukemia Narrative/Plan: Continue induction chemotherapy without changes. Continue supportive care as ordered. All preventative measures including activity, fluid intake, oral care reviewed with patient again. Tumor lysis labs reviewed, no evidence of tumor l ysis syndrome at this time. Daily monitoring of labs Current Visit: Yes Status: Acute Priority: High Code(s): C94.00 - ACUTE ERYTHROID LEUKEMIA, NOT HAVING ACHIEVED REMISSION SNOMED Code(s): 88321934 (2) Pancytopenia Narrative/Plan: Secondary to disease and they are going to be impacted by treatment as time goes on. Conservative transfusions for symptoms and if hemoglobin less than 7, platelet count less than 10,000. Irradiated blood products, CMV status is positive so no need for CMV negative blood products. Pt will be receiving 1 unit PRBCs and 1 unit SDP platelets. No G-CSF as patient is not a confirmed remission. No aspirin, NSAIDs, ibuprofen, anticoagulants. DVT prophylaxis with STDs and early/frequent ambulation CBC daily Current Visit: Yes Status: Acute Priority: High Code(s): D61.818 - OTHER PANCYTOPENIA SNOMED Code(s): 521393235 Plan: Admit for 7+3 treatment, inpatient for at least 7 days PICC line placed for chemo ECHO baseline for cardiotoxic drugs done 01/26 Supportive meds Fluid requirements Ambulation requirements Orders reviewed PCP following for medical mgmt while inpatient Doctor attests: I performed a history and physical examination of this patient, developed impression and plan of care, discussed with dictator. I agree with dictators note, documented as a scribe.
[2019-03-05] MEDS: CYTARABINE IV SCH (15:19)
[2019-03-05] MEDS: DAUNORUBICIN IV SCH (15:19)
[2019-03-05] MEDS: SODIUM CHLORIDE 0.9% IV SCH (15:19)
[2019-03-05 17:06] LABS: Glucose,Whole Blood 166 mg/dL (75-99)
[2019-03-05] MEDS: LEVOFLOXACIN 500 MG TAB PO SCH (18:06)
[2019-03-05] MEDS: ATORVASTATIN 80 MG TAB PO SCH (18:06)
[2019-03-05] MEDS: FENOFIBRATE 160 MG TAB PO SCH (18:06)
[2019-03-05 19:54] LABS: Glucose,Whole Blood 159 mg/dL (75-99)
[2019-03-05] MEDS: traZODone HCL 100 MG TAB PO SCH (20:26)
[2019-03-05] MEDS: ACYCLOVIR 200 MG CAP PO SCH (20:26)
[2019-03-05] MEDS: METOPROLOL SUCCINATE (ER) 25 MG TAB.ER.24H PO SCH (20:26)
[2019-03-05] MEDS: MONTELUKAST 10 MG TAB PO SCH (20:28)
[2019-03-05] MEDS: VENLAFAXINE HCL ER 150 MG CAP PO SCH (20:28)
[2019-03-06] MEDS: HYDROcodone/APAP 10-325MG 1 EACH TAB PO PRN ×3 (02:42→20:25)
[2019-03-06] MEDS: SODIUM CHLORIDE 0.9% 1,000 ML IV SCH ×3 (06:11→22:28)
[2019-03-06 07:02] LABS: Glucose,Whole Blood 90 mg/dL (75-99)
[2019-03-06] MEDS: INSULIN ASPART (NovoLOG) 100 UNIT/ML VIAL SQ SCH ×4 (07:32→20:26)
[2019-03-06 07:59] LABS: ALT 55 U/L (21-72); AST 25 U/L (17-59); African American GFR (CKD) >90 (>60 ml/min/1.73 sqM); Albumin 3.4 g/dL (3.5-5.0); Alkaline Phosphatase 41 U/L (38-126); Anion Gap 5 mmol/L; Blood Urea Nitrogen 18 mg/dL (9-20); Calcium 8.8 mg/dL (8.4-10.2); Carbon Dioxide 27 mmol/L (22-30); Chloride 106 mmol/L (98-107); Glucose 78 mg/dL (74-99); Phosphorus 4.1 mg/dL (2.5-4.5); Sodium 138 mmol/L (137-145); Total Bilirubin 0.9 mg/dL (0.2-1.3); Uric Acid 3.6 mg/dL (3.5-8.5)
[2019-03-06 08:01] LABS: Anisocytosis Slight; HCT 20.4 % (39.0-53.0); Hypochromasia Moderate; MCH 27.8 pg (25.0-35.0); MCHC 33.4 g/dL (31.0-37.0); MCV 83.4 fL (80.0-100.0); Microcytosis Slight; Poikilocytosis Marked; RBC 2.44 m/uL (4.30-5.90); RDW 19.5 % (11.5-15.5)
[2019-03-06 08:13] LABS: HGB 6.8 gm/dL (13.0-17.5); WBC 0.7 k/uL (3.8-10.6)
[2019-03-06 08:14] LABS: Platelet Count 18 k/uL (150-450)
[2019-03-06] MEDS: ACYCLOVIR 200 MG CAP PO SCH ×2 (08:29→20:26)
[2019-03-06] MEDS: FLUCONAZOLE 100 MG TAB PO SCH (08:29)
[2019-03-06] MEDS: FAMOTIDINE 20 MG/2 ML VIAL IVP SCH (08:29)
[2019-03-06] MEDS: SALT AND SODA MOUTHWASH 1,000 ML PO SCH ×3 (08:29→17:14)
[2019-03-06] MEDS: DIVALPROEX 500 MG TABLET.DR PO SCH ×2 (08:29→20:27)
[2019-03-06] MEDS: ONDANSETRON 16 MG in SODIUM CHLORIDE 0.9% 50 ML IVPB SCH (08:29)
[2019-03-06] MEDS: DEXAMETHASONE SOD PHOSPHATE 10 MG/ML 1 ML VIAL IV SCH (08:29)
[2019-03-06] MEDS: FLUTICASONE 110 MCG INHALER INHALATION SCH ×2 (08:37→19:57)
[2019-03-06 09:05] LABS: Rouleaux Present
--- NOTE | 2019-03-06 10:03 | P.PN ---
Subjective Progress Note Date: 03/06/19 This is a 48-year-old male patient who is admitted under oncology services for inpatient chemotherapy. Patient recently underwent bone marrow biopsy and diagnosed with leukemia. Patient has been following with oncology services. Patient will be admitted for 7-8 days while receiving chemotherapy. Patient has a additional medical history of asthma, chest pain, diabetes mellitus, GERD, GI bleed, hyperlipidemia, hypertension, myocardial infarction, osteoarthritis, sleep apnea, neuropathy, colitis, urethral stone, cardiac murmur, nicotine anxiety and bipolar. Patient previously required blood transfusion for low hemoglobin level. At this time patient denies chest pain or shortness of breath. Patient denies nausea vomiting or diarrhea. Patient denies any urinary burning or frequency. On 03/04/2019 patient's alert and oriented 3. Patient is in the process of completing first round of chemotherapy. PICC line is in place. Patient had one episode of nausea in which she was treated with Zofran and symptoms resolved. At this time patient denies cough or shortness of breath. Patient denies upper respiratory infections. Patient denies any source to mouth. Patient denies any burning with urination. Patient denies any open wounds. On 03/05/2019 patient is alert and oriented 3. Patient is resting comfortably in bed. Patient denies chest pain or shortness breath. Patient denies nausea vomiting or diarrhea. Patient denies any urinary burning or frequency. Patient denies any open sores mouth. Patient currently received second dose of inpatient chemo On 03/06/2019 patient's alert and oriented 3. Patient is having some increased nausea and episode of emesis. Medications ordered per oncology services. Patient also complaining about right shoulder discomfort with movement. Patient reports that does help control the pain denies any trauma or fall. Patient denies chest pain or shortness of breath. Patient denies nausea vomiting or diarrhea. Patient denies any urinary burning or frequency Objective - Vital Signs Vital signs: Vital Signs Temp 98.7 F 03/06/19 08:00 Pulse 92 03/06/19 08:00 Resp 17 03/06/19 08:00 BP 132/70 03/06/19 08:00 Pulse Ox 97 03/06/19 08:00 Intake & Output 03/05/19 03/06/19 03/06/19 18:59 06:59 18:59 Intake Total 2825 2241 Balance 2825 2241 Intake: Intake, IV Titration 1341 Amount Cytarabine/Pf 400 mg In 216 Sodium Chloride 0.9% 500 ml 500 ml @ 21.667 mls/hr IV Q24HR@1300 [facility] Rx#: [id number] Sodium Chloride 0.9% 1, 1125 000 ml @ 125 mls/hr IV . Q8H [facility] Rx#:[id number] Oral 2520 590 Blood Product 305 310 Platelet Irr Pheresis 2 305 Acda Unit [id number] Rc Irr As3 Unit 310 [id number] Other: Voiding Method Toilet Toilet # Voids 3 1 # Bowel Movements 1 - Exam Head normocephalic Neck supple Lungs clear to auscultation bilaterally no wheezing or crackles Heart regular rate and rhythm S1-S2, no rub or gallop Abdomen is soft nontender nondistended positive bowel sounds no hepatosplenomegaly Extremities no edema Neuro alert and orientated to 3 - Labs CBC & Chem 7: 03/06/19 06:53 03/06/19 06:54 Labs: Abnormal Lab Results - Last 24 Hours (Table) 03/05/19 03/05/19 03/05/19 Range/Units 06:45 10:31 11:16 WBC 1.2 L* (3.8-10.6) k/uL RBC (4.30-5.90) m/uL Hgb 6.3 L* D (13.0-17.5) gm/dL Hct 19.9 L* (39.0-53.0) % RDW (11.5-15.5) % Plt Count 8 L* (150-450) k/uL Neutrophils # (Manual) 0.40 L* (1.3-7.7) k/uL Lymphocytes # (Manual) 0.61 L (1.0-4.8) k/uL Nucleated RBCs 19 H (0-0) /100 WBC POC Glucose (mg/dL) 211 H (75-99) mg/dL Total Protein (6.3-8.2) g/dL Albumin (3.5-5.0) g/dL Crossmatch See Detail 03/05/19 03/05/19 03/06/19 Range/Units 17:05 19:52 06:53 WBC 0.7 L* (3.8-10.6) k/uL RBC 2.44 L (4.30-5.90) m/uL Hgb 6.8 L* (13.0-17.5) gm/dL Hct 20.4 L (39.0-53.0) % RDW 19.5 H (11.5-15.5) % Plt Count 18 L* D (150-450) k/uL Neutrophils # (Manual) (1.3-7.7) k/uL Lymphocytes # (Manual) (1.0-4.8) k/uL Nucleated RBCs (0-0) /100 WBC POC Glucose (mg/dL) 166 H 159 H (75-99) mg/dL Total Protein (6.3-8.2) g/dL Albumin (3.5-5.0) g/dL Crossmatch 03/06/19 Range/Units 06:54 WBC (3.8-10.6) k/uL RBC (4.30-5.90) m/uL Hgb (13.0-17.5) gm/dL Hct (39.0-53.0) % RDW (11.5-15.5) % Plt Count (150-450) k/uL Neutrophils # (Manual) (1.3-7.7) k/uL Lymphocytes # (Manual) (1.0-4.8) k/uL Nucleated RBCs (0-0) /100 WBC POC Glucose (mg/dL) (75-99) mg/dL Total Protein 6.0 L (6.3-8.2) g/dL Albumin 3.4 L (3.5-5.0) g/dL Crossmatch Assessment and Plan Assessment: 1. Acute erythoid leukemia newly diagnosed. Patient admitted for inpatient chemotherapy under oncology services. Patient had bone marrow biopsy on 02/19/2019. Patient completed day 2 of 7+3 treatment 2. History of left ureteral calculus. Patient was previously evaluated by urology services no intervention at that time 3. 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 History of essential hypertension 5. History of depression 6. History of diabetes mellitus type 2. Metformin on hold. Sliding scale insulin ordered 7. History of coronary artery disease 8. History of obstructive sleep apnea maintained on CPAP 9. History of osteoarthritis 10. Hyperlipidemia. Patient maintained on Lipitor and fenofibrate 11. History of bipolar depression. Home meds resumed Thank you for this consultation we will continue to follow patient closely throughout stay I performed an examination of the patient and discussed their management with the Nurse Practitioner. I have reviewed the Nurse Practitioner's notes and agree with the documented findings and plan of care
[2019-03-06 11:44] LABS: Glucose,Whole Blood 173 mg/dL (75-99)
--- NOTE | 2019-03-06 11:56 | P.PN ---
Subjective Progress Note Date: 03/06/19 Principal diagnosis: Acute erythroid leukemia (M7). Induction chemo day 2 In follow-up today patient continues to do well, denies any c/o on a 14 point ROS , no BM yesterday but, feels he will go today, no constipation, abd pain or bloating. He continues to do his laps, appetite is down today, denies nausea or vomiting. Right shoulder pain persists today, patient is able to move his arm and full range of motion but states it does hurt. He states it feels similar to his other shoulder when he had "calcium deposits" and he required a steroid injection. No other c/o, questions or concerns Objective - Vital Signs Vital signs: Vital Signs Temp 98.7 F 03/06/19 08:00 Pulse 92 03/06/19 08:00 Resp 17 03/06/19 08:00 BP 132/70 03/06/19 08:00 Pulse Ox 97 03/06/19 08:00 Intake & Output 03/05/19 03/06/19 03/06/19 18:59 06:59 18:59 Intake Total 2825 2241 Balance 2825 2241 Intake: Intake, IV Titration 1341 Amount Cytarabine/Pf 400 mg In 216 Sodium Chloride 0.9% 500 ml 500 ml @ 21.667 mls/hr IV Q24HR@1300 [facility] Rx#: [id number] Sodium Chloride 0.9% 1, 1125 000 ml @ 125 mls/hr IV . Q8H [facility] Rx#:[id number] Oral 2520 590 Blood Product 305 310 Platelet Irr Pheresis 2 305 Acda Unit [id number] Rc Irr As3 Unit 310 [id number] Other: Voiding Method Toilet Toilet # Voids 3 1 # Bowel Movements 1 - Constitutional General appearance: Present: average body habitus, cooperative, no acute distress - EENT Eyes: Present: anicteric sclerae, EOMI ENT: Present: hearing grossly normal, normal oropharynx - Respiratory Respiratory: bilateral: CTA - Cardiovascular Rhythm: regular Heart sounds: normal: S1, S2 Abnormal Heart Sounds: Absent: systolic murmur, diastolic murmur, rub, S3 Gallop, S4 Gallop, click, other - Peripheral edema leg Peripheral Edema: bilateral: None - Gastrointestinal General gastrointestinal: Present: normal bowel sounds, soft - Integumentary Integumentary: Present: normal - Neurologic Neurologic: Present: CNII-XII intact - Musculoskeletal Musculoskeletal Comment(s): Patient was not able to completely relaxes shoulder so that I can perform passive range of motion. Anterior deltoid area as where he is experiencing most of the pain, no crepitus Musculoskeletal: Present: strength equal bilaterally - Psychiatric Psychiatric: Present: A&O x's 3, appropriate affect, intact judgment & insight - Labs CBC & Chem 7: 03/06/19 06:53 03/06/19 06:54 Labs: Abnormal Lab Results - Last 24 Hours (Table) 03/05/19 03/05/19 03/05/19 Range/Units 10:31 17:05 19:52 WBC (3.8-10.6) k/uL RBC (4.30-5.90) m/uL Hgb (13.0-17.5) gm/dL Hct (39.0-53.0) % RDW (11.5-15.5) % Plt Count (150-450) k/uL POC Glucose (mg/dL) 166 H 159 H (75-99) mg/dL Total Protein (6.3-8.2) g/dL Albumin (3.5-5.0) g/dL Crossmatch See Detail 03/06/19 03/06/19 03/06/19 Range/Units 06:53 06:54 11:29 WBC 0.7 L* (3.8-10.6) k/uL RBC 2.44 L (4.30-5.90) m/uL Hgb 6.8 L* (13.0-17.5) gm/dL Hct 20.4 L (39.0-53.0) % RDW 19.5 H (11.5-15.5) % Plt Count 18 L* D (150-450) k/uL POC Glucose (mg/dL) 173 H (75-99) mg/dL Total Protein 6.0 L (6.3-8.2) g/dL Albumin 3.4 L (3.5-5.0) g/dL Crossmatch Assessment and Plan (1) Acute erythroid leukemia Narrative/Plan: Continue induction chemotherapy, no changes. Continue supportive care. All preventative measures including activity, fluid intake, oral care reviewed with patient and today. No evidence of tumor lysis. Ongoing daily monitoring of labs Current Visit: Yes Status: Acute Priority: High Code(s): C94.00 - ACUTE ERYTHROID LEUKEMIA, NOT HAVING ACHIEVED REMISSION SNOMED Code(s): 72620660 (2) Pancytopenia Narrative/Plan: Secondary to disease and they are going to worsen due to treatment as time goes on. Conservative transfusions for symptoms and if hemoglobin less than 7, platelet count less than 10,000. Irradiated blood products, CMV status is positive so no need for CMV negative blood products. Pt will be receiving 1 unit PRBCs. No G-CSF as patient is not a confirmed remission. No aspirin, NSAIDs, ibuprofen, anticoagulants. DVT prophylaxis with STDs and early/frequent ambulation CBC daily Patient has been initiated on prophylactic antiviral, antifungal and antibiotics. Current Visit: Yes Status: Acute Priority: High Code(s): D61.818 - OTHER PANCYTOPENIA SNOMED Code(s): 320606896 Plan: Admit for 7+3 treatment, inpatient for at least 7 days PICC line placed for chemo ECHO baseline for cardiotoxic drugs done 01/26 Supportive meds Fluid requirements Ambulation requirements Orders reviewed PCP following for medical mgmt while inpatient
[2019-03-06] MEDS: CYTARABINE IV SCH (14:34)
[2019-03-06] MEDS: SODIUM CHLORIDE 0.9% IV SCH (14:34)
[2019-03-06 16:57] LABS: Glucose,Whole Blood 148 mg/dL (75-99)
[2019-03-06] MEDS: FENOFIBRATE 160 MG TAB PO SCH (17:14)
[2019-03-06] MEDS: ATORVASTATIN 80 MG TAB PO SCH (17:14)
[2019-03-06] MEDS: LEVOFLOXACIN 500 MG TAB PO SCH (17:14)
[2019-03-06 19:57] LABS: Glucose,Whole Blood 195 mg/dL (75-99)
[2019-03-06] MEDS: METOPROLOL SUCCINATE (ER) 25 MG TAB.ER.24H PO SCH (20:25)
[2019-03-06] MEDS: MONTELUKAST 10 MG TAB PO SCH (20:25)
[2019-03-06] MEDS: VENLAFAXINE HCL ER 150 MG CAP PO SCH (20:26)
[2019-03-06] MEDS: traZODone HCL 100 MG TAB PO SCH (20:27)
[2019-03-07] MEDS: HYDROcodone/APAP 10-325MG 1 EACH TAB PO PRN ×3 (05:42→22:05)
[2019-03-07] MEDS: SODIUM CHLORIDE 0.9% 1,000 ML IV SCH ×2 (06:00→15:24)
[2019-03-07 06:50] LABS: Glucose,Whole Blood 95 mg/dL (75-99)
[2019-03-07] MEDS: INSULIN ASPART (NovoLOG) 100 UNIT/ML VIAL SQ SCH ×4 (07:20→21:11)
[2019-03-07] MEDS: ONDANSETRON 16 MG in SODIUM CHLORIDE 0.9% 50 ML IVPB SCH (08:04)
[2019-03-07] MEDS: FAMOTIDINE 20 MG/2 ML VIAL IVP SCH (08:05)
[2019-03-07] MEDS: DEXAMETHASONE SOD PHOSPHATE 10 MG/ML 1 ML VIAL IV SCH (08:05)
[2019-03-07] MEDS: DIVALPROEX 500 MG TABLET.DR PO SCH ×2 (08:06→21:11)
[2019-03-07] MEDS: FLUCONAZOLE 100 MG TAB PO SCH (08:07)
[2019-03-07] MEDS: ACYCLOVIR 200 MG CAP PO SCH ×2 (08:07→21:11)
[2019-03-07] MEDS: SALT AND SODA MOUTHWASH 1,000 ML PO SCH ×3 (08:07→18:33)
[2019-03-07 08:20] LABS: Anisocytosis Slight; HCT 21.2 % (39.0-53.0); HGB 7.1 gm/dL (13.0-17.5); Hypochromasia Moderate; MCH 27.6 pg (25.0-35.0); MCHC 33.4 g/dL (31.0-37.0); MCV 82.7 fL (80.0-100.0); Mean Platelet Volume 6.1; Microcytosis Slight; Poikilocytosis Moderate; RBC 2.57 m/uL (4.30-5.90)
[2019-03-07 08:40] LABS: ALT 40 U/L (21-72); AST 22 U/L (17-59); African American GFR (CKD) >90 (>60 ml/min/1.73 sqM); Albumin 3.6 g/dL (3.5-5.0); Alkaline Phosphatase 42 U/L (38-126); Anion Gap 5 mmol/L; Blood Urea Nitrogen 18 mg/dL (9-20); Calcium 8.7 mg/dL (8.4-10.2); Carbon Dioxide 28 mmol/L (22-30); Chloride 105 mmol/L (98-107); Glucose 81 mg/dL (74-99); Potassium 4.2 mmol/L (3.5-5.1); Sodium 138 mmol/L (137-145); Total Bilirubin 1.2 mg/dL (0.2-1.3); Total Protein 6.3 g/dL (6.3-8.2); WBC 0.4 k/uL (3.8-10.6)
[2019-03-07] MEDS: FLUTICASONE 110 MCG INHALER INHALATION SCH ×2 (08:43→19:57)
[2019-03-07 08:58] LABS: Platelet Count 20 k/uL (150-450)
[2019-03-07 08:59] LABS: Poikilocytosis (M) Present
--- NOTE | 2019-03-07 11:16 | P.PN ---
Subjective Progress Note Date: 03/07/19 This is a 48-year-old male patient who is admitted under oncology services for inpatient chemotherapy. Patient recently underwent bone marrow biopsy and diagnosed with leukemia. Patient has been following with oncology services. Patient will be admitted for 7-8 days while receiving chemotherapy. Patient has a additional medical history of asthma, chest pain, diabetes mellitus, GERD, GI bleed, hyperlipidemia, hypertension, myocardial infarction, osteoarthritis, sleep apnea, neuropathy, colitis, urethral stone, cardiac murmur, nicotine anxiety and bipolar. Patient previously required blood transfusion for low hemoglobin level. At this time patient denies chest pain or shortness of breath. Patient denies nausea vomiting or diarrhea. Patient denies any urinary burning or frequency. On 03/04/2019 patient's alert and oriented 3. Patient is in the process of completing first round of chemotherapy. PICC line is in place. Patient had one episode of nausea in which she was treated with Zofran and symptoms resolved. At this time patient denies cough or shortness of breath. Patient denies upper respiratory infections. Patient denies any source to mouth. Patient denies any burning with urination. Patient denies any open wounds. On 03/05/2019 patient is alert and oriented 3. Patient is resting comfortably in bed. Patient denies chest pain or shortness breath. Patient denies nausea vomiting or diarrhea. Patient denies any urinary burning or frequency. Patient denies any open sores mouth. Patient currently received second dose of inpatient chemo On 03/06/2019 patient's alert and oriented 3. Patient is having some increased nausea and episode of emesis. Medications ordered per oncology services. Patient also complaining about right shoulder discomfort with movement. Patient reports that does help control the pain denies any trauma or fall. Patient denies chest pain or shortness of breath. Patient denies nausea vomiting or diarrhea. Patient denies any urinary burning or frequency On 03/07/2018 patient is alert and oriented 3. Patient reports that he is having some increased cough or sputum production. Will order chest x-ray to rule out infection. Patient received 1 unit of PRBCs hemoglobin improving 7.1. Patient also received 2 units of Lasix. Platelets currently 20. Patient denies chest pain. Patient denies shortness of breath. Patient denies nausea vomiting or diarrhea. Patient denies urinary burning or frequency Objective - Vital Signs Vital signs: Vital Signs Temp 97.4 F L 03/07/19 08:00 Pulse 102 H 03/07/19 08:00 Resp 16 03/07/19 09:10 BP 129/63 03/07/19 08:00 Pulse Ox 97 03/07/19 08:00 Intake & Output 03/06/19 03/07/19 03/07/19 18:59 06:59 18:59 Intake Total 1050 1459.3 Balance 1050 1459.3 Intake: Intake, IV Titration 1050 1459.3 Amount Cytarabine/Pf 400 mg In 209.3 Sodium Chloride 0.9% 500 ml 500 ml @ 21.667 mls/hr IV Q24HR@1300 [facility] Rx#: [id number] Ondansetron 16 mg In 50 Sodium Chloride 0.9% 50 ml @ 232 mls/hr IVPB DAILY [facility] Rx#:[id number] Sodium Chloride 0.9% 1, 1000 1250 000 ml @ 125 mls/hr IV . Q8H [facility] Rx#:[id number] Other: Voiding Method Toilet Toilet # Voids 1 - Exam Head normocephalic Neck supple Lungs clear to auscultation bilaterally no wheezing or crackles Heart regular rate and rhythm S1-S2, no rub or gallop Abdomen is soft nontender nondistended positive bowel sounds no hepatosplenomegaly Extremities no edema Neuro alert and orientated to 3 - Labs CBC & Chem 7: 03/07/19 07:39 03/07/19 07:39 Labs: Abnormal Lab Results - Last 24 Hours (Table) 03/06/19 03/06/19 03/06/19 Range/Units 11:29 16:56 19:56 WBC (3.8-10.6) k/uL RBC (4.30-5.90) m/uL Hgb (13.0-17.5) gm/dL Hct (39.0-53.0) % RDW (11.5-15.5) % Plt Count (150-450) k/uL POC Glucose (mg/dL) 173 H 148 H 195 H (75-99) mg/dL 03/07/19 Range/Units 07:39 WBC 0.4 L* (3.8-10.6) k/uL RBC 2.57 L (4.30-5.90) m/uL Hgb 7.1 L (13.0-17.5) gm/dL Hct 21.2 L (39.0-53.0) % RDW 20.0 H (11.5-15.5) % Plt Count 20 L (150-450) k/uL POC Glucose (mg/dL) (75-99) mg/dL Assessment and Plan Assessment: 1. Acute erythoid leukemia newly diagnosed. Patient admitted for inpatient chemotherapy under oncology services. Patient had bone marrow biopsy on 02/19/2019. Patient completed day 3 of 7+3 treatment 2. History of left ureteral calculus. Patient was previously evaluated by ology services no intervention at that time 3. 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 Patient received 1 unit of PRBCs and 2 units of platelets. Current hemoglobin 7.1. Platelets 20 4. History of essential hypertension 5. History of depression 6. History of diabetes mellitus type 2. Metformin on hold. Sliding scale insulin ordered 7. History of coronary artery disease 8. History of obstructive sleep apnea maintained on CPAP 9. History of osteoarthritis 10. Hyperlipidemia. Patient maintained on Lipitor and fenofibrate 11. History of bipolar depression. Home meds resumed 12. Increased cough. Will order chest x-ray to rule out infection Thank you for this consultation we will continue to follow patient closely throughout stay I performed an examination of the patient and discussed their management with the Nurse Practitioner. I have reviewed the Nurse Practitioner's notes and agree with the documented findings and plan of care
[2019-03-07 11:35] LABS: Glucose,Whole Blood 204 mg/dL (75-99)
[2019-03-07] MEDS: SODIUM CHLORIDE 0.9% IV SCH (13:18)
[2019-03-07] MEDS: CYTARABINE IV SCH (13:18)
--- NOTE | 2019-03-07 14:14 | XR ---
EXAMINATION TYPE: XR chest 2V DATE OF EXAM: 03/07/2019 COMPARISON: Prior chest x-ray 01/24/2019 HISTORY: Increased sputum production TECHNIQUE: Frontal and lateral views of the chest are obtained. FINDINGS: There is no focal air space opacity, pleural effusion, or pneumothorax seen. The cardiac silhouette size is within normal limits. The osseous structures are intact. Left-sided PICC line is in place, distal tip of the cavoatrial junction. There are leads present posterior to the thoracic spine and also the upper thoracic and lower cervica l spine. There are overlying cardiac leads. Right hemidiaphragm is elevated. IMPRESSION: No acute cardiopulmonary process.
[2019-03-07 17:09] LABS: Glucose,Whole Blood 160 mg/dL (75-99)
[2019-03-07] MEDS: ATORVASTATIN 80 MG TAB PO SCH (18:24)
[2019-03-07] MEDS: LEVOFLOXACIN 500 MG TAB PO SCH (18:24)
[2019-03-07] MEDS: FENOFIBRATE 160 MG TAB PO SCH (18:24)
--- NOTE | 2019-03-07 20:09 | P.PN ---
Subjective Progress Note Date: 03/07/19 Principal diagnosis: AML TImed Chemotherapy Tolerating treatment, WBC 0.4, no fevers, bleeding or nausea or vomiting. Objective - Vital Signs Vital signs: Vital Signs Temp 97.9 F 03/07/19 12:00 Pulse 82 03/07/19 12:00 Resp 16 03/07/19 12:00 BP 118/62 03/07/19 12:00 Pulse Ox 95 03/07/19 12:00 Intake & Output 03/06/19 03/07/19 03/07/19 18:59 06:59 18:59 Intake Total 1050 1459.3 2817 Balance 1050 1459.3 2817 Intake: Intake, IV Titration 1050 1459.3 1377 Amount Cytarabine/Pf 400 mg In 209.3 145 Sodium Chloride 0.9% 500 ml 500 ml @ 21.667 mls/hr IV Q24HR@1300 [facility] Rx#: [id number] Ondansetron 16 mg In 50 232 Sodium Chloride 0.9% 50 ml @ 232 mls/hr IVPB DAILY [facility] Rx#:[id number] Sodium Chloride 0.9% 1, 1000 1250 1000 000 ml @ 125 mls/hr IV . Q8H [facility] Rx#:[id number] Oral 1440 Other: Voiding Method Toilet Toilet # Voids 1 3 - Exam Gen: Alert and Oriented, NAD Head: NCNT Neck Supple Heart RRR Lungs No increased effort CTA B Abdomen: S/ND/NT Ext: No Rash, No Edema, Equal Strength Psych: Calm and Coroperative Neuro: No Focal Deficits Noted. - Labs CBC & Chem 7: 03/07/19 07:39 03/07/19 07:39 Labs: Abnormal Lab Results - Last 24 Hours (Table) 03/06/19 03/06/19 03/07/19 Range/Units 16:56 19:56 07:39 WBC 0.4 L* (3.8-10.6) k/uL RBC 2.57 L (4.30-5.90) m/uL Hgb 7.1 L (13.0-17.5) gm/dL Hct 21.2 L (39.0-53.0) % RDW 20.0 H (11.5-15.5) % Plt Count 20 L (150-450) k/uL POC Glucose (mg/dL) 148 H 195 H (75-99) mg/dL 03/07/19 Range/Units 11:33 WBC (3.8-10.6) k/uL RBC (4.30-5.90) m/uL Hgb (13.0-17.5) gm/dL Hct (39.0-53.0) % RDW (11.5-15.5) % Plt Count (150-450) k/uL POC Glucose (mg/dL) 204 H (75-99) mg/dL Assessment and Plan Plan: Acute erythroid leukemia Continue induction chemotherapy, no changes. Continue supportive care. - Daily CBC CMP - Monitor for TLS, No evidence thus far Pancytopenia Secondary to disease and they are going to worsen due to treatment as time goes on. Conservative transfusions for symptoms and if hemoglobin less than 7, platelet count less than 10,000. Irradiated blood products, CMV status is positive so no need for CMV negative blood products. Pt will be receiving 1 unit PRBCs. No G-CSF as patient is not a confirmed remission. No aspirin, NSAIDs, ibuprofen, anticoagulants. DVT prophylaxis with STDs and early/frequent ambulation CBC daily Patient has been initiated on prophylactic antiviral, antifungal and antibiotics. Plan: COntinue induction MOnitor for s/s infection CBC and CMP daily I have completed the full history and physical of this patient and developed the complete impression and plan, Agree with Eileen VALENZUELA, dictated as a scribe
[2019-03-07 20:11] LABS: Glucose,Whole Blood 217 mg/dL (75-99)
[2019-03-07] MEDS: METOPROLOL SUCCINATE (ER) 25 MG TAB.ER.24H PO SCH (21:10)
[2019-03-07] MEDS: traZODone HCL 100 MG TAB PO SCH (21:11)
[2019-03-07] MEDS: MONTELUKAST 10 MG TAB PO SCH (21:11)
[2019-03-07] MEDS: VENLAFAXINE HCL ER 150 MG CAP PO SCH (21:11)
[2019-03-08] MEDS: SODIUM CHLORIDE 0.9% 1,000 ML IV SCH ×4 (05:55→23:28)
[2019-03-08 07:17] LABS: Glucose,Whole Blood 76 mg/dL (75-99)
[2019-03-08] MEDS: INSULIN ASPART (NovoLOG) 100 UNIT/ML VIAL SQ SCH ×4 (07:34→20:33)
[2019-03-08 07:51] LABS: Anisocytosis Moderate; Hypochromasia Moderate; MCHC 32.6 g/dL (31.0-37.0); Mean Platelet Volume 5.9; Microcytosis Slight; Poikilocytosis Moderate; RBC 2.41 m/uL (4.30-5.90)
[2019-03-08 07:53] LABS: WBC 0.4 k/uL (3.8-10.6)
[2019-03-08 07:57] LABS: HGB 6.5 gm/dL (13.0-17.5); Platelet Count 10 k/uL (150-450)
[2019-03-08] MEDS: ONDANSETRON 16 MG in SODIUM CHLORIDE 0.9% 50 ML IVPB SCH (08:09)
[2019-03-08] MEDS: ACYCLOVIR 200 MG CAP PO SCH ×2 (08:10→20:05)
[2019-03-08] MEDS: DEXAMETHASONE SOD PHOSPHATE 10 MG/ML 1 ML VIAL IV SCH (08:10)
[2019-03-08] MEDS: FAMOTIDINE 20 MG/2 ML VIAL IVP SCH (08:10)
[2019-03-08] MEDS: FLUCONAZOLE 100 MG TAB PO SCH (08:10)
[2019-03-08] MEDS: DIVALPROEX 500 MG TABLET.DR PO SCH ×2 (08:11→20:06)
[2019-03-08] MEDS: SALT AND SODA MOUTHWASH 1,000 ML PO SCH ×3 (08:21→18:12)
[2019-03-08 08:34] LABS: ALT 36 U/L (21-72); AST 20 U/L (17-59); African American GFR (CKD) >90 (>60 ml/min/1.73 sqM); Albumin 3.4 g/dL (3.5-5.0); Alkaline Phosphatase 38 U/L (38-126); Anion Gap 8 mmol/L; Blood Urea Nitrogen 20 mg/dL (9-20); Calcium 8.8 mg/dL (8.4-10.2); Carbon Dioxide 26 mmol/L (22-30); Chloride 105 mmol/L (98-107); Glucose 77 mg/dL (74-99); LDH 416 U/L (313-618); Magnesium 2.5 mg/dL (1.6-2.3); Phosphorus 3.9 mg/dL (2.5-4.5); Potassium 4.6 mmol/L (3.5-5.1); Sodium 139 mmol/L (137-145); Total Bilirubin 0.9 mg/dL (0.2-1.3); Total Protein 5.9 g/dL (6.3-8.2); Uric Acid 3.6 mg/dL (3.5-8.5)
[2019-03-08 08:40] LABS: Tear Drop Cells Present
[2019-03-08] MEDS: FLUTICASONE 110 MCG INHALER INHALATION SCH ×2 (09:27→21:14)
--- NOTE | 2019-03-08 10:51 | P.PN ---
Subjective Progress Note Date: 03/08/19 The patient denies any new issues overnight. No fever/chills/nausea/vomiting/obvious bleeding. Objective - Vital Signs Vital signs: Vital Signs Temp 98.0 F 03/08/19 05:00 Pulse 81 03/08/19 05:00 Resp 16 03/08/19 05:00 BP 101/54 03/08/19 05:00 Pulse Ox 98 03/08/19 05:00 Intake & Output 03/07/19 03/08/19 03/08/19 18:59 06:59 18:59 Intake Total 2817 4220 Balance 2817 4220 Intake: Intake, IV Titration 1377 1500 Amount Cytarabine/Pf 400 mg In 145 Sodium Chloride 0.9% 500 ml 500 ml @ 21.667 mls/hr IV Q24HR@1300 [facility] Rx#: [id number] Ondansetron 16 mg In 232 Sodium Chloride 0.9% 50 ml @ 232 mls/hr IVPB DAILY [facility] Rx#:[id number] Sodium Chloride 0.9% 1, 1000 1500 000 ml @ 125 mls/hr IV . Q8H [facility] Rx#:[id number] Oral 1440 2720 Other: Voiding Method Toilet Toilet # Voids 3 1 # Bowel Movements 1 - Constitutional General appearance: Present: no acute distress - EENT Eyes: Present: EOMI ENT: Present: hearing grossly normal, normal oropharynx - Respiratory Respiratory: bilateral: CTA - Cardiovascular Rhythm: regular Heart sounds: normal: S1, S2 - Gastrointestinal General gastrointestinal: Present: normal bowel sounds, soft - Integumentary Integumentary: Present: normal - Neurologic Neurologic: Present: CNII-XII intact - Musculoskeletal Musculoskeletal: Present: generalized weakness, strength equal bilaterally - Psychiatric Psychiatric: Present: A&O x's 3, appropriate affect - Labs CBC & Chem 7: 03/08/19 06:42 03/08/19 06:42 Labs: Abnormal Lab Results - Last 24 Hours (Table) 03/05/19 03/07/19 03/07/19 Range/Units 10:31 11:33 17:08 WBC (3.8-10.6) k/uL RBC (4.30-5.90) m/uL Hgb (13.0-17.5) gm/dL Hct (39.0-53.0) % RDW (11.5-15.5) % Plt Count (150-450) k/uL POC Glucose (mg/dL) 204 H 160 H (75-99) mg/dL Magnesium (1.6-2.3) mg/dL Total Protein (6.3-8.2) g/dL Albumin (3.5-5.0) g/dL Crossmatch See Detail 03/07/19 03/08/19 03/08/19 Range/Units 20:09 06:42 06:42 WBC 0.4 L* (3.8-10.6) k/uL RBC 2.41 L (4.30-5.90) m/uL Hgb 6.5 L* (13.0-17.5) gm/dL Hct 20.0 L (39.0-53.0) % RDW 20.0 H (11.5-15.5) % Plt Count 10 L* (150-450) k/uL POC Glucose (mg/dL) 217 H (75-99) mg/dL Magnesium 2.5 H (1.6-2.3) mg/dL Total Protein 5.9 L (6.3-8.2) g/dL Albumin 3.4 L (3.5-5.0) g/dL Crossmatch Assessment and Plan (1) Acute erythroid leukemia Narrative/Plan: The patient is on day #6 of induction chemotherapy with the 7+3 regimen. So far he is tolerating treatment well. Continue treatment per protocol. Continue to monitor with supportive transfusions. He is on regular labs monitoring for evidence of tumor lysis. These have been negative so far. He is also on allopu rinol Current Visit: Yes Status: Acute Priority: High Code(s): C94.00 - ACUTE ERYTHROID LEUKEMIA, NOT HAVING ACHIEVED REMISSION SNOMED Code(s): 31755856 (2) Pancytopenia Narrative/Plan: Due to underlying leukemia, worsened by chemotherapy effect. This is expected. Hemoglobin was less than 7 today and platelets 10. 1 unit PRBC and 1 unit of platelets will be ordered The patient has also been placed on antibiotic prophylaxis Current Visit: Yes Status: Acute Priority: High Code(s): D61.818 - OTHER PANCYTOPENIA SNOMED Code(s): 689603778
[2019-03-08 12:04] LABS: Glucose,Whole Blood 170 mg/dL (75-99)
--- NOTE | 2019-03-08 13:32 | P.PN ---
Subjective Progress Note Date: 03/08/19 This is a 48-year-old male patient who is admitted under oncology services for inpatient chemotherapy. Patient recently underwent bone marrow biopsy and diagnosed with leukemia. Patient has been following with oncology services. Patient will be admitted for 7-8 days while receiving chemotherapy. Patient has a additional medical history of asthma, chest pain, diabetes mellitus, GERD, GI bleed, hyperlipidemia, hypertension, myocardial infarction, osteoarthritis, sleep apnea, neuropathy, colitis, urethral stone, cardiac murmur, nicotine anxiety and bipolar. Patient previously required blood transfusion for low hemoglobin level. At this time patient denies chest pain or shortness of breath. Patient denies nausea vomiting or diarrhea. Patient denies any urinary burning or frequency. On 03/04/2019 patient's alert and oriented 3. Patient is in the process of completing first round of chemotherapy. PICC line is in place. Patient had one episode of nausea in which she was treated with Zofran and symptoms resolved. At this time patient denies cough or shortness of breath. Patient denies upper respiratory infections. Patient denies any source to mouth. Patient denies any burning with urination. Patient denies any open wounds. On 03/05/2019 patient is alert and oriented 3. Patient is resting comfortably in bed. Patient denies chest pain or shortness breath. Patient denies nausea vomiting or diarrhea. Patient denies any urinary burning or frequency. Patient denies any open sores mouth. Patient currently received second dose of inpatient chemo On 03/06/2019 patient's alert and oriented 3. Patient is having some increased nausea and episode of emesis. Medications ordered per oncology services. Patient also complaining about right shoulder discomfort with movement. Patient reports that does help control the pain denies any trauma or fall. Patient denies chest pain or shortness of breath. Patient denies nausea vomiting or diarrhea. Patient denies any urinary burning or frequency On 03/07/2018 patient is alert and oriented 3. Patient reports that he is having some increased cough or sputum production. Will order chest x-ray to rule out infection. Patient received 1 unit of PRBCs hemoglobin improving 7.1. Patient also received 2 units of Lasix. Platelets currently 20. Patient denies chest pain. Patient denies shortness of breath. Patient denies nausea vomiting or diarrhea. Patient denies urinary burning or frequency On 03/08/2018 patient was seen and examined on the oncology floor, he is alert and oriented 3 in no apparent distress he is no fever or chills no headache or dizziness no chest pain no shortness of breath no cough no nausea or vomiting no abdominal pain no diarrhea and no urinary symptoms Objective - Vital Signs Vital signs: Vital Signs Temp 98 F 03/08/19 13:09 Pulse 84 03/08/19 13:09 Resp 16 03/08/19 13:09 BP 103/52 03/08/19 13:09 Pulse Ox 97 03/08/19 13:09 Intake & Output 03/07/19 03/08/19 03/08/19 18:59 06:59 18:59 Intake Total 2817 4220 360 Balance 2817 4220 360 Intake: Intake, IV Titration 1377 1500 Amount Cytarabine/Pf 400 mg In 145 Sodium Chloride 0.9% 500 ml 500 ml @ 21.667 mls/hr IV Q24HR@1300 [facility] Rx#: [id number] Ondansetron 16 mg In 232 Sodium Chloride 0.9% 50 ml @ 232 mls/hr IVPB DAILY [facility] Rx#:[id number] Sodium Chloride 0.9% 1, 1000 1500 000 ml @ 125 mls/hr IV . Q8H [facility] Rx#:[id number] Oral 1440 2720 360 Blood Product 0 Rc Irr As1 Unit 0 [id number] Other: Voiding Method Toilet Toilet Toilet # Voids 3 1 # Bowel Movements 1 - Exam In general patient is alert and oriented 3 in no apparent distress Head normocephalic and atraumatic Neck supple no JVD no goiter Lungs clear to auscultation bilaterally no wheezing or crackles Heart regular rate and rhythm S1-S2, no rub or gallop Abdomen is soft nontender nondistended positive bowel sounds no hepatosplenomegaly Extremities no edema no cyanosis or clubbing Neuro no gross focal deficit - Labs CBC & Chem 7: 03/08/19 06:42 03/08/19 06:42 Labs: Abnormal Lab Results - Last 24 Hours (Table) 03/05/19 03/07/19 03/07/19 Range/Units 10:31 17:08 20:09 WBC (3.8-10.6) k/uL RBC (4.30-5.90) m/uL Hgb (13.0-17.5) gm/dL Hct (39.0-53.0) % RDW (11.5-15.5) % Plt Count (150-450) k/uL POC Glucose (mg/dL) 160 H 217 H (75-99) mg/dL Magnesium (1.6-2.3) mg/dL Total Protein (6.3-8.2) g/dL Albumin (3.5-5.0) g/dL Crossmatch See Detail 03/08/19 03/08/19 03/08/19 Range/Units 06:42 06:42 12:03 WBC 0.4 L* (3.8-10.6) k/uL RBC 2.41 L (4.30-5.90) m/uL Hgb 6.5 L* (13.0-17.5) gm/dL Hct 20.0 L (39.0-53.0) % RDW 20.0 H (11.5-15.5) % Plt Count 10 L* (150-450) k/uL POC Glucose (mg/dL) 170 H (75-99) mg/dL Magnesium 2.5 H (1.6-2.3) mg/dL Total Protein 5.9 L (6.3-8.2) g/dL Albumin 3.4 L (3.5-5.0) g/dL Crossmatch Assessment and Plan Plan: 1. Acute erythoid leukemia newly diagnosed. Patient admitted for inpatient chemotherapy under oncology services. Patient had bone marrow biopsy on 02/19/2019. Patient completed day 3 of 7+3 treatment 2. History of left ureteral calculus. Patient was previously evaluated by urology services no intervention at that time 3. 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 Patient received 1 unit of PRBCs and 2 units of platelets. Current hemoglobin 7.1. Platelets 20 4. History of essential hypertension 5. History of depression 6. History of diabetes mellitus type 2. Metformin on hold. Sliding scale insulin ordered 7. History of coronary artery disease 8. History of obstructive sleep apnea maintained on CPAP 9. History of osteoarthritis 10. Hyperlipidemia. Patient maintained on Lipitor and fenofibrate 11. History of bipolar depression. Home meds resumed 12. Increased cough. Will order chest x-ray to rule out infection Thank you for this consultation we will continue to follow patient closely throughout stay
[2019-03-08] MEDS: CYTARABINE IV SCH (14:04)
[2019-03-08] MEDS: SODIUM CHLORIDE 0.9% IV SCH (14:04)
[2019-03-08] MEDS: DOCUSATE 100 MG CAP PO SCH ×2 (14:12→20:05)
[2019-03-08 17:04] LABS: Glucose,Whole Blood 148 mg/dL (75-99)
[2019-03-08] MEDS: LEVOFLOXACIN 500 MG TAB PO SCH (18:11)
[2019-03-08] MEDS: ATORVASTATIN 80 MG TAB PO SCH (18:11)
[2019-03-08] MEDS: FENOFIBRATE 160 MG TAB PO SCH (18:11)
[2019-03-08] MEDS: HYDROcodone/APAP 10-325MG 1 EACH TAB PO PRN (20:05)
[2019-03-08] MEDS: MONTELUKAST 10 MG TAB PO SCH (20:05)
[2019-03-08] MEDS: traZODone HCL 100 MG TAB PO SCH (20:05)
[2019-03-08] MEDS: VENLAFAXINE HCL ER 150 MG CAP PO SCH (20:05)
[2019-03-08] MEDS: METOPROLOL SUCCINATE (ER) 25 MG TAB.ER.24H PO SCH (20:05)
[2019-03-08 20:32] LABS: Glucose,Whole Blood 204 mg/dL (75-99)
[2019-03-09] MEDS: SODIUM CHLORIDE 0.9% 1,000 ML IV SCH ×2 (06:09→13:34)
[2019-03-09 07:05] LABS: Glucose,Whole Blood 91 mg/dL (75-99)
[2019-03-09 07:10] LABS: Anisocytosis Slight; HCT 21.8 % (39.0-53.0); HGB 7.3 gm/dL (13.0-17.5); Hypochromasia Slight; MCH 28.1 pg (25.0-35.0); MCHC 33.7 g/dL (31.0-37.0); MCV 83.3 fL (80.0-100.0); Mean Platelet Volume 5.3; Microcytosis Slight; Poikilocytosis Moderate; RBC 2.62 m/uL (4.30-5.90); RDW 19.2 % (11.5-15.5)
[2019-03-09 07:55] LABS: ALT 34 U/L (21-72); AST 17 U/L (17-59); African American GFR (CKD) >90 (>60 ml/min/1.73 sqM); Albumin 3.3 g/dL (3.5-5.0); Alkaline Phosphatase 39 U/L (38-126); Anion Gap 7 mmol/L; Blood Urea Nitrogen 19 mg/dL (9-20); Calcium 8.5 mg/dL (8.4-10.2); Carbon Dioxide 27 mmol/L (22-30); Chloride 107 mmol/L (98-107); Glucose 90 mg/dL (74-99); Potassium 4.2 mmol/L (3.5-5.1); Sodium 141 mmol/L (137-145); Total Bilirubin 0.7 mg/dL (0.2-1.3); Total Protein 5.9 g/dL (6.3-8.2)
[2019-03-09 07:57] LABS: Platelet Count 12 k/uL (150-450)
[2019-03-09] MEDS: ONDANSETRON 16 MG in SODIUM CHLORIDE 0.9% 50 ML IVPB SCH (08:17)
[2019-03-09] MEDS: INSULIN ASPART (NovoLOG) 100 UNIT/ML VIAL SQ SCH ×4 (08:17→21:31)
[2019-03-09] MEDS: FAMOTIDINE 20 MG/2 ML VIAL IVP SCH (08:18)
[2019-03-09] MEDS: DEXAMETHASONE SOD PHOSPHATE 10 MG/ML 1 ML VIAL IV SCH (08:18)
[2019-03-09] MEDS: HYDROcodone/APAP 10-325MG 1 EACH TAB PO PRN (08:19)
[2019-03-09] MEDS: FLUCONAZOLE 100 MG TAB PO SCH (08:20)
[2019-03-09] MEDS: ACYCLOVIR 200 MG CAP PO SCH ×2 (08:20→21:30)
[2019-03-09] MEDS: DOCUSATE 100 MG CAP PO SCH ×2 (08:20→21:31)
[2019-03-09] MEDS: DIVALPROEX 500 MG TABLET.DR PO SCH ×2 (08:20→21:31)
[2019-03-09] MEDS: SALT AND SODA MOUTHWASH 1,000 ML PO SCH ×3 (08:28→17:30)
[2019-03-09] MEDS: FLUTICASONE 110 MCG INHALER INHALATION SCH ×2 (08:33→20:26)
[2019-03-09 11:19] LABS: Glucose,Whole Blood 130 mg/dL (75-99)
--- NOTE | 2019-03-09 11:45 | P.PN ---
Subjective Progress Note Date: 03/09/19 This is a 48-year-old male patient who is admitted under oncology services for inpatient chemotherapy. Patient recently underwent bone marrow biopsy and diagnosed with leukemia. Patient has been following with oncology services. Patient will be admitted for 7-8 days while receiving chemotherapy. Patient has a additional medical history of asthma, chest pain, diabetes mellitus, GERD, GI bleed, hyperlipidemia, hypertension, myocardial infarction, osteoarthritis, sleep apnea, neuropathy, colitis, urethral stone, cardiac murmur, nicotine anxiety and bipolar. Patient previously required blood transfusion for low hemoglobin level. At this time patient denies chest pain or shortness of breath. Patient denies nausea vomiting or diarrhea. Patient denies any urinary burning or frequency. On 03/04/2019 patient's alert and oriented 3. Patient is in the process of completing first round of chemotherapy. PICC line is in place. Patient had one episode of nausea in which she was treated with Zofran and symptoms resolved. At this time patient denies cough or shortness of breath. Patient denies upper respiratory infections. Patient denies any source to mouth. Patient denies any burning with urination. Patient denies any open wounds. On 03/05/2019 patient is alert and oriented 3. Patient is resting comfortably in bed. Patient denies chest pain or shortness breath. Patient denies nausea vomiting or diarrhea. Patient denies any urinary burning or frequency. Patient denies any open sores mouth. Patient currently received second dose of inpatient chemo On 03/06/2019 patient's alert and oriented 3. Patient is having some increased nausea and episode of emesis. Medications ordered per oncology services. Patient also complaining about right shoulder discomfort with movement. Patient reports that does help control the pain denies any trauma or fall. Patient denies chest pain or shortness of breath. Patient denies nausea vomiting or diarrhea. Patient denies any urinary burning or frequency On 03/07/2019 patient is alert and oriented 3. Patient reports that he is having some increased cough or sputum production. Will order chest x-ray to rule out infection. Patient received 1 unit of PRBCs hemoglobin improving 7.1. Patient also received 2 units of Lasix. Platelets currently 20. Patient denies chest pain. Patient denies shortness of breath. Patient denies nausea vomiting or diarrhea. Patient denies urinary burning or frequency On 03/08/2019 patient was seen and examined on the oncology floor, he is alert and oriented 3 in no apparent distress he is no fever or chills no headache or dizziness no chest pain no shortness of breath no cough no nausea or vomiting no abdominal pain no diarrhea and no urinary symptoms On 03/09/2019 patient's alert and oriented 3. Patient denies chest pain or shortness of breath. Patient denies nausea vomiting or diarrhea. Patient denies any urinary burning or frequency Objective - Vital Signs Vital signs: Vital Signs Temp 98.0 F 03/09/19 04:00 Pulse 78 03/09/19 04:00 Resp 17 03/09/19 07:10 BP 133/79 03/09/19 04:00 Pulse Ox 97 03/09/19 04:00 Intake & Output 03/08/19 03/09/19 03/09/19 18:59 06:59 18:59 Intake Total 2830 1401 Balance 2830 1401 Intake: Intake, IV Titration 1510 Amount Cytarabine/Pf 400 mg In 210 Sodium Chloride 0.9% 500 ml 500 ml @ 21.667 mls/hr IV Q24HR@1300 [facility] Rx#: [id number] Ondansetron 16 mg In 100 Sodium Chloride 0.9% 50 ml @ 232 mls/hr IVPB DAILY [facility] Rx#:[id number] Sodium Chloride 0.9% 1, 1200 000 ml @ 125 mls/hr IV . Q8H [facility] Rx#:[id number] Oral 1010 1200 Blood Product 310 201 Platelet Irr Pheresis 3 0 201 Acda Unit [id number] Rc Irr As1 Unit 310 [id number] Other: Voiding Method Toilet Toilet Toilet # Voids 5 2 - Exam Head normocephalic Neck supple Lungs clear to auscultation bilaterally no wheezing or crackles Heart regular rate and rhythm S1-S2, no rub or gallop Abdomen is soft nontender nondistended positive bowel sounds no hepatosplenomegaly Extremities no edema Neuro alert and orientated to 3 - Labs CBC & Chem 7: 03/09/19 06:51 03/09/19 06:51 Labs: Abnormal Lab Results - Last 24 Hours (Table) 03/05/19 03/08/19 03/08/19 Range/Units 10:31 12:03 17:02 WBC (3.8-10.6) k/uL RBC (4.30-5.90) m/uL Hgb (13.0-17.5) gm/dL Hct (39.0-53.0) % RDW (11.5-15.5) % Plt Count (150-450) k/uL POC Glucose (mg/dL) 170 H 148 H (75-99) mg/dL Total Protein (6.3-8.2) g/dL Albumin (3.5-5.0) g/dL Crossmatch See Detail 03/08/19 03/09/19 03/09/19 Range/Units 20:31 06:51 06:51 WBC 0.4 L* (3.8-10.6) k/uL RBC 2.62 L (4.30-5.90) m/uL Hgb 7.3 L (13.0-17.5) gm/dL Hct 21.8 L (39.0-53.0) % RDW 19.2 H (11.5-15.5) % Plt Count 12 L* (150-450) k/uL POC Glucose (mg/dL) 204 H (75-99) mg/dL Total Protein 5.9 L (6.3-8.2) g/dL Albumin 3.3 L (3.5-5.0) g/dL Crossmatch 03/09/19 Range/Units 11:18 WBC (3.8-10.6) k/uL RBC (4.30-5.90) m/uL Hgb (13.0-17.5) gm/dL Hct (39.0-53.0) % RDW (11.5-15.5) % Plt Count (150-450) k/uL POC Glucose (mg/dL) 130 H (75-99) mg/dL Total Protein (6.3-8.2) g/dL Albumin (3.5-5.0) g/dL Crossmatch Assessment and Plan Assessment: 1. Acute erythoid leukemia newly diagnosed. Patient admitted for inpatient chemotherapy under oncology services. Patient had bone marrow biopsy on 02/19/2019. Patient completed day 6 of 7+3 treatment 2. History of left ureteral calculus. Patient was previously evaluated by urology services no intervention at that time 3. 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 Patient received 1 unit of PRBCs and 2 units of platelets. Current hemoglobin 7.1. Platelets 20 4. History of essential hypertension 5. History of depression 6. History of diabetes mellitus type 2. Metformin on hold. Sliding scale insulin ordered 7. History of coronary artery disease 8. History of obstructive sleep apnea maintained on CPAP 9. History of osteoarthritis 10. Hyperlipidemia. Patient maintained on Lipitor and fenofibrate 11. History of bipolar depression. Home meds resumed 12. Increased cough. Chest x-ray completed showing no acute cardiopulmonary process. Coughing has resolved Thank you for this consultation we will continue to follow patient closely throughout stay I performed an examination of the patient and discussed their management with the Nurse Practitioner. I have reviewed the Nurse Practitioner's notes and agree with the documented findings and plan of care
[2019-03-09] MEDS: CYTARABINE IV SCH (13:35)
[2019-03-09] MEDS: SODIUM CHLORIDE 0.9% IV SCH (13:35)
[2019-03-09 16:47] LABS: Glucose,Whole Blood 208 mg/dL (75-99)
[2019-03-09] MEDS: FENOFIBRATE 160 MG TAB PO SCH (17:28)
[2019-03-09] MEDS: ATORVASTATIN 80 MG TAB PO SCH (17:28)
[2019-03-09] MEDS: LEVOFLOXACIN 500 MG TAB PO SCH (17:28)
[2019-03-09 19:58] LABS: Glucose,Whole Blood 252 mg/dL (75-99)
[2019-03-09] MEDS: METOPROLOL SUCCINATE (ER) 25 MG TAB.ER.24H PO SCH (21:31)
[2019-03-09] MEDS: MONTELUKAST 10 MG TAB PO SCH (21:31)
[2019-03-09] MEDS: VENLAFAXINE HCL ER 150 MG CAP PO SCH (21:32)
[2019-03-09] MEDS: traZODone HCL 100 MG TAB PO SCH (21:32)
--- NOTE | 2019-03-09 21:54 | P.PN ---
Subjective Progress Note Date: 03/09/19 The patient is continuing on induction chemotherapy for his AML. He denied any new symptoms overnight. No fever/chills/nausea/vomiting/significant mouth sores/obvious bleeding Objective - Vital Signs Vital signs: Vital Signs Temp 98.0 F 03/09/19 20:00 Pulse 86 03/09/19 20:00 Resp 16 03/09/19 20:00 BP 127/65 03/09/19 20:00 Pulse Ox 98 03/09/19 20:00 Intake & Output 03/09/19 03/09/19 03/10/19 06:59 18:59 06:59 Intake Total 1401 Balance 1401 Intake: Oral 1200 Blood Product 201 Platelet Irr Pheresis 3 201 Acda Unit [id number] Other: Voiding Method Toilet Toilet # Voids 2 3 - Constitutional General appearance: Present: no acute distress - EENT Eyes: Present: EOMI ENT: Present: hearing grossly normal, normal oropharynx - Respiratory Respiratory: bilateral: CTA - Cardiovascular Rhythm: regular Heart sounds: normal: S1, S2 - Gastrointestinal General gastrointestinal: Present: soft - Integumentary Integumentary: Present: normal - Neurologic Neurologic: Present: CNII-XII intact - Musculoskeletal Musculoskeletal: Present: generalized weakness - Psychiatric Psychiatric: Present: A&O x's 3, appropriate affect - Labs CBC & Chem 7: 03/09/19 06:51 03/09/19 06:51 Labs: Abnormal Lab Results - Last 24 Hours (Table) 03/09/19 03/09/19 03/09/19 Range/Units 06:51 06:51 11:18 WBC 0.4 L* (3.8-10.6) k/uL RBC 2.62 L (4.30-5.90) m/uL Hgb 7.3 L (13.0-17.5) gm/dL Hct 21.8 L (39.0-53.0) % RDW 19.2 H (11.5-15.5) % Plt Count 12 L* (150-450) k/uL POC Glucose (mg/dL) 130 H (75-99) mg/dL Total Protein 5.9 L (6.3-8.2) g/dL Albumin 3.3 L (3.5-5.0) g/dL 03/09/19 03/09/19 Range/Units 16:46 19:57 WBC (3.8-10.6) k/uL RBC (4.30-5.90) m/uL Hgb (13.0-17.5) gm/dL Hct (39.0-53.0) % RDW (11.5-15.5) % Plt Count (150-450) k/uL POC Glucose (mg/dL) 208 H 252 H (75-99) mg/dL Total Protein (6.3-8.2) g/dL Albumin (3.5-5.0) g/dL Assessment and Plan (1) Acute erythroid leukemia Narrative/Plan: The patient is on day #7 of induction with a 7+3 regimen. So far he is tolerating his regimen well subjectively. No evidence of tumor lysis. Continue treatment per protocol. Continue to monitor with physical exam, and labs which have been ordered Current Visit: Yes Status: Acute Priority: High Code(s): C94.00 - ACUTE ERYTHROID LEUKEMIA, NOT HAVING ACHIEVED REMISSION SNOMED Code(s): 32623757 (2) Pancytopenia Narrative/Plan: Due to underlying leukemia, as well as chemotherapy effect. The patient's hemoglobin is greater than 7, and platelets greater than 10 today, without evidence of any active bleeding. Therefore no transfusion is required today. He is on prophylactic antibiotics. Continue to monitor and transfuse as needed Current Visit: Yes Status: Acute Priority: High Code(s): D61.818 - OTHER PANCYTOPENIA SNOMED Code(s): 442162745 Plan: internal medicine is following for management of his other medical problems
[2019-03-10] MEDS: SODIUM CHLORIDE 0.9% 1,000 ML IV SCH ×2 (00:05→08:03)
[2019-03-10 06:54] LABS: Glucose,Whole Blood 95 mg/dL (75-99)
[2019-03-10] MEDS: INSULIN ASPART (NovoLOG) 100 UNIT/ML VIAL SQ SCH ×2 (08:03→13:10)
[2019-03-10 08:04] VITALS: RESP 17
[2019-03-10] MEDS: DOCUSATE 100 MG CAP PO SCH (08:04)
[2019-03-10] MEDS: ACYCLOVIR 200 MG CAP PO SCH (08:04)
[2019-03-10] MEDS: FLUCONAZOLE 100 MG TAB PO SCH (08:05)
[2019-03-10] MEDS: DIVALPROEX 500 MG TABLET.DR PO SCH (08:05)
[2019-03-10] MEDS: SALT AND SODA MOUTHWASH 1,000 ML PO SCH ×2 (08:05→13:11)
[2019-03-10 08:22] LABS: Anisocytosis Slight; HCT 24.8 % (39.0-53.0); HGB 8.2 gm/dL (13.0-17.5); Hypochromasia Slight; MCH 27.9 pg (25.0-35.0); MCHC 33.1 g/dL (31.0-37.0); MCV 84.4 fL (80.0-100.0); Mean Platelet Volume 6.8; Microcytosis Slight; Poikilocytosis Moderate; RBC 2.94 m/uL (4.30-5.90); RDW 19.7 % (11.5-15.5)
[2019-03-10 08:24] LABS: Platelet Count 13 k/uL (150-450); WBC 0.3 k/uL (3.8-10.6)
[2019-03-10] MEDS: FLUTICASONE 110 MCG INHALER INHALATION SCH (08:35)
[2019-03-10 08:52] LABS: ALT 34 U/L (21-72); AST 16 U/L (17-59); African American GFR (CKD) >90 (>60 ml/min/1.73 sqM); Albumin 3.6 g/dL (3.5-5.0); Alkaline Phosphatase 40 U/L (38-126); Anion Gap 9 mmol/L; Blood Urea Nitrogen 16 mg/dL (9-20); Calcium 9.1 mg/dL (8.4-10.2); Carbon Dioxide 25 mmol/L (22-30); Chloride 104 mmol/L (98-107); Glucose 124 mg/dL (74-99); Potassium 4.3 mmol/L (3.5-5.1); Sodium 138 mmol/L (137-145); Total Bilirubin 1.1 mg/dL (0.2-1.3); Total Protein 6.2 g/dL (6.3-8.2)
[2019-03-10 09:30] LABS: WBC 0.4 k/uL (3.8-10.6)
[2019-03-10 10:06] LABS: Tear Drop Cells Present
--- NOTE | 2019-03-10 10:47 | P.PN ---
Subjective Progress Note Date: 03/10/19 This is a 48-year-old male patient who is admitted under oncology services for inpatient chemotherapy. Patient recently underwent bone marrow biopsy and diagnosed with leukemia. Patient has been following with oncology services. Patient will be admitted for 7-8 days while receiving chemotherapy. Patient has a additional medical history of asthma, chest pain, diabetes mellitus, GERD, GI bleed, hyperlipidemia, hypertension, myocardial infarction, osteoarthritis, sleep apnea, neuropathy, colitis, urethral stone, cardiac murmur, nicotine anxiety and bipolar. Patient previously required blood transfusion for low hemoglobin level. At this time patient denies chest pain or shortness of breath. Patient denies nausea vomiting or diarrhea. Patient denies any urinary burning or frequency. On 03/04/2019 patient's alert and oriented 3. Patient is in the process of completing first round of chemotherapy. PICC line is in place. Patient had one episode of nausea in which she was treated with Zofran and symptoms resolved. At this time patient denies cough or shortness of breath. Patient denies upper respiratory infections. Patient denies any source to mouth. Patient denies any burning with urination. Patient denies any open wounds. On 03/05/2019 patient is alert and oriented 3. Patient is resting comfortably in bed. Patient denies chest pain or shortness breath. Patient denies nausea vomiting or diarrhea. Patient denies any urinary burning or frequency. Patient denies any open sores mouth. Patient currently received second dose of inpatient chemo On 03/06/2019 patient's alert and oriented 3. Patient is having some increased nausea and episode of emesis. Medications ordered per oncology services. Patient also complaining about right shoulder discomfort with movement. Patient reports that does help control the pain denies any trauma or fall. Patient denies chest pain or shortness of breath. Patient denies nausea vomiting or diarrhea. Patient denies any urinary burning or frequency On 03/07/2019 patient is alert and oriented 3. Patient reports that he is having some increased cough or sputum production. Will order chest x-ray to rule out infection. Patient received 1 unit of PRBCs hemoglobin improving 7.1. Patient also received 2 units of Lasix. Platelets currently 20. Patient denies chest pain. Patient denies shortness of breath. Patient denies nausea vomiting or diarrhea. Patient denies urinary burning or frequency On 03/08/2019 patient was seen and examined on the oncology floor, he is alert and oriented 3 in no apparent distress he is no fever or chills no headache or dizziness no chest pain no shortness of breath no cough no nausea or vomiting no abdominal pain no diarrhea and no urinary symptoms On 03/09/2019 patient's alert and oriented 3. Patient denies chest pain or shortness of breath. Patient denies nausea vomiting or diarrhea. Patient denies any urinary burning or frequency On 03/10/2018 patient is alert and oriented 3. Patient is on last round of chemotherapy today possible discharge today per oncology services. Pending labs. Patient denies any sores in mouth. Patient denies nausea vomiting or di arrhea. Patient denies any chest pain or shortness of breath. Patient denies any urinary burning or frequency Objective - Vital Signs Vital signs: Vital Signs Temp 98.4 F 03/10/19 08:00 Pulse 93 03/10/19 08:00 Resp 17 03/10/19 08:00 BP 109/57 03/10/19 08:00 Pulse Ox 97 03/10/19 08:00 Intake & Output 03/09/19 03/10/19 03/10/19 18:59 06:59 18:59 Intake Total 1375 Balance 1375 Intake: Intake, IV Titration 1375 Amount Sodium Chloride 0.9% 1, 1375 000 ml @ 125 mls/hr IV . Q8H [facility] Rx#:[id number] Other: Voiding Method Toilet Toilet Toilet # Voids 3 - Exam Head normocephalic Neck supple Lungs clear to auscultation bilaterally no wheezing or crackles Heart regular rate and rhythm S1-S2, no rub or gallop Abdomen is soft nontender nondistended positive bowel sounds no hepatosplenomegaly Extremities no edema Neuro alert and orientated to 3 - Labs CBC & Chem 7: 03/10/19 07:56 03/10/19 07:56 Labs: Abnormal Lab Results - Last 24 Hours (Table) 03/09/19 03/09/19 03/09/19 Range/Units 06:51 11:18 16:46 WBC 0.4 L* (3.8-10.6) k/uL RBC (4.30-5.90) m/uL Hgb (13.0-17.5) gm/dL Hct (39.0-53.0) % RDW (11.5-15.5) % Plt Count (150-450) k/uL Glucose (74-99) mg/dL POC Glucose (mg/dL) 130 H 208 H (75-99) mg/dL AST (17-59) U/L Total Protein (6.3-8.2) g/dL 03/09/19 03/10/19 03/10/19 Range/Units 19:57 07:56 07:56 WBC 0.3 L* (3.8-10.6) k/uL RBC 2.94 L (4.30-5.90) m/uL Hgb 8.2 L (13.0-17.5) gm/dL Hct 24.8 L (39.0-53.0) % RDW 19.7 H (11.5-15.5) % Plt Count 13 L* (150-450) k/uL Glucose 124 H (74-99) mg/dL POC Glucose (mg/dL) 252 H (75-99) mg/dL AST 16 L (17-59) U/L Total Protein 6.2 L (6.3-8.2) g/dL Assessment and Plan Assessment: 1. Acute erythoid leukemia newly diagnosed. Patient admitted for inpatient chemotherapy under oncology services. Patient had bone marrow biopsy on 02/19/2019. Patient completed day 7 of 7+3 treatment 2. History of left ureteral calculus. Patient was previously evaluated by urology services no intervention at that time 3. 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 Patient received 1 unit of PRBCs and 2 units of platelets. Current hemoglobin 7.1. Platelets 20 4. History of essential hypertension 5. History of depression 6. History of diabetes mellitus type 2. Metformin on hold. Sliding scale i nsulin ordered 7. History of coronary artery disease 8. History of obstructive sleep apnea maintained on CPAP 9. History of osteoarthritis 10. Hyperlipidemia. Patient maintained on Lipitor and fenofibrate 11. History of bipolar depression. Home meds resumed 12. Increased cough. Chest x-ray completed showing no acute cardiopulmonary process. Coughing has resolved Thank you for this consultation we will continue to follow patient closely throughout stay Anticipate discharge in the next 24-48 hours I performed an examination of the patient and discussed their management with humble kapadia Nurse Practitioner. I have reviewed the Nurse Practitioner's notes and agree with the documented findings and plan of care
[2019-03-10 11:07] LABS: Glucose,Whole Blood 97 mg/dL (75-99)
[2019-03-10 11:49] VITALS: BP 116/69; PULSE 85; TEMP 98.3
--- NOTE | 2019-03-10 14:38 | P.DS ---
Providers Date of admission: 03/03/19 08:44 Expected date of discharge: 03/10/19 Attending physician: Guille Rojas Consults: 03/03/19 09:51 Consult Physician Routine Consulting Provider: Veronika Dotson Consult Reason/Comments: medical management Do you want consulting provider notified?: Yes Placement Type Exists?: Yes Primary care physician: Veronika Dotson - Discharge Diagnosis(es) (1) Acute erythroid leukemia S/P induction chemo. In 2-3 weeks pt will have bone marrow to determine if he is in remission. Further treatment plans to follow Current Visit: Yes Status: Acute Priority: High (2) Pancytopenia From disease and chemo. No transfusions needed today. Pt is sched for three times a week CBC in office Current Visit: Yes Status: Acute Priority: High Hospital Course: Admitted for induction chemotherapy with 7+3 regimen for AEL, M6. He did very well with treatment, mild side effects were all manageable, he maintained appetite, no fever, vomiting, acute changes in bowel habits. He is anxious to go home today. Health Concerns: Financial concerns related to transportation, prescription medications and nutrition Procedures: PICC line insertion Patient Condition at Discharge: Stable Plan - Discharge Summary Discharge Rx Participant: Yes New Discharge Prescriptions: New Fluconazole [Diflucan] 100 mg PO DAILY #14 tablet Levofloxacin [Levaquin] 500 mg PO DAILY #14 tab Acyclovir [Zovirax] 400 mg PO BID #28 tab Discontinued Leucovorin 10 mg PO Q8HR 20 Days #60 tablet No Action Montelukast Sodium [Singulair] 10 mg PO HS Albuterol Inhaler [Ventolin Hfa Inhaler] 2 puff INHALATION RT-Q6H PRN PRN Reason: Shortness Of Breath Metoprolol Succinate (ER) [Toprol XL] 25 mg PO HS Atorvastatin [Lipitor] 80 mg PO PC-SUPPER traZODone HCL 150 mg PO HS Venlafaxine HCl [Effexor XR] 150 mg PO HS Fenofibrate Nanocrystallized [Fenofibrate] 145 mg PO PC-SUPPER Beclomethasone Dipropionate [Qvar 80 mcg] 2 puff INHALATION RT-BID Nitroglycerin Sl Tabs [Nitrostat] 0.4 mg SUBLINGUAL Q5M PRN PRN Reason: Chest Pain Dicyclomine [Bentyl] 20 mg PO TID Divalproex [Depakote] 500 mg PO BID tablet. metFORMIN HCL [Glucophage] 500 mg PO PC-SUPPER #0 Discharge Medication List Montelukast Sodium [Singulair] 10 mg PO HS 06/01/16 [History] Albuterol Inhaler [Ventolin Hfa Inhaler] 2 puff INHALATION RT-Q6H PRN 10/15/17 [History] Atorvastatin [Lipitor] 80 mg PO PC-SUPPER 10/15/17 [History] Beclomethasone Dipropionate [Qvar 80 mcg] 2 puff INHALATION RT-BID 10/15/17 [History] Fenofibrate Nanocrystallized [Fenofibrate] 145 mg PO PC-SUPPER 10/15/17 [History] Metoprolol Succinate (ER) [Toprol XL] 25 mg PO HS 10/15/17 [History] Venlafaxine HCl [Effexor XR] 150 mg PO HS 10/15/17 [History] traZODone HCL 150 mg PO HS 10/15/17 [History] Dicyclomine [Bentyl] 20 mg PO TID 01/10/19 [History] Nitroglycerin Sl Tabs [Nitrostat] 0.4 mg SUBLINGUAL Q5M PRN 01/10/19 [History] Divalproex [Depakote] 500 mg PO BID tablet. 01/27/19 [Rx] metFORMIN HCL [Glucophage] 500 mg PO PC-SUPPER #0 02/19/19 [Rx] Acyclovir [Zovirax] 400 mg PO BID #28 tab 03/10/19 [Rx] Fluconazole [Diflucan] 100 mg PO DAILY #14 tablet 03/10/19 [Rx] Levofloxacin [Levaquin] 500 mg PO DAILY #14 tab 03/10/19 [Rx] Follow up Appointment(s)/Referral(s): Guille Rojas MD [STAFF PHYSICIAN] - 03/12/19 10:00 am (This appt is at the [facility] ([facility]). More appt need to be made at that time) Patient Instructions/Handouts: Daunorubicin/Cytarabine Liposome (By injection), Acute Myeloid Leukemia (GEN), Peripherally Inserted Central Catheters and Midline Catheters (DC) Activity/Diet/Wound Care/Special Instructions: Activity as tolerate Diet as tolerated Salt and Soda (1/2 teaspoon of each) in 1 liter of water. Swish and spit up to 5 times a day Prescriptions sent to [facility] Discharge Disposition: HOME SELF-CARE
== END 2019-03-10 15:45 | disposition home or self-care (01) | DRG 837 ==
LOC: 3NMEDONC 03-03 08:44
PROVIDERS: ADMIT Internal Medicine Hematology & Oncology; ATTEND Internal Medicine Hematology & Oncology
PROC: 02HV33Z Insertion of Infusion Device into Superior Vena Cava, Percutaneous Approach (ICD-10-PCS; 2019-03-03)
PROC: 3E02340 Introduction of Influenza Vaccine into Muscle, Percutaneous Approach (ICD-10-PCS; 2019-03-03)
PROC: 3E0234Z Introduction of Serum, Toxoid and Vaccine into Muscle, Percutaneous Approach (ICD-10-PCS; 2019-03-03)
PROC: 5A09557 Assistance with Respiratory Ventilation, Greater than 96 Consecutive Hours, Continuous Positive Airway Pressure (ICD-10-PCS; 2019-03-03)
PROC: 30233R1 Transfusion of Nonautologous Platelets into Peripheral Vein, Percutaneous Approach (ICD-10-PCS; 2019-03-03)
PROC: 3E04305 Introduction of Other Antineoplastic into Central Vein, Percutaneous Approach (ICD-10-PCS; principal; 2019-03-04)
PROC: 30233N1 Transfusion of Nonautologous Red Blood Cells into Peripheral Vein, Percutaneous Approach (ICD-10-PCS; 2019-03-05)
DX: Z51.11 Encounter for antineoplastic chemotherapy (principal); D61.810 Antineoplastic chemotherapy induced pancytopenia; C94.00 Acute erythroid leukemia, not having achieved remission; F31.30 Bipolar disorder, current episode depressed, mild or moderate severity, unspecified; E11.40 Type 2 diabetes mellitus with diabetic neuropathy, unspecified; Z23 Encounter for immunization; F41.9 Anxiety disorder, unspecified; T45.1X5A Adverse effect of antineoplastic and immunosuppressive drugs, initial encounter; M25.511 Pain in right shoulder; G47.33 Obstructive sleep apnea (adult) (pediatric); J45.909 Unspecified asthma, uncomplicated; K21.9 Gastro-esophageal reflux disease without esophagitis; E78.5 Hyperlipidemia, unspecified; I10 Essential (primary) hypertension; I25.10 Atherosclerotic heart disease of native coronary artery without angina pectoris; G56.03 Carpal tunnel syndrome, bilateral upper limbs; G89.29 Other chronic pain; M54.5 Low back pain; M54.2 Cervicalgia; R05 Cough; M19.90 Unspecified osteoarthritis, unspecified site; I25.2 Old myocardial infarction; F17.200 Nicotine dependence, unspecified, uncomplicated; Z79.84 Long term (current) use of oral hypoglycemic drugs; Z79.51 Long term (current) use of inhaled steroids; Z79.899 Other long term (current) drug therapy; Z71.6 Tobacco abuse counseling; Z87.19 Personal history of other diseases of the digestive system; Z96.9 Presence of functional implant, unspecified; Z96.651 Presence of right artificial knee joint; Z95.5 Presence of coronary angioplasty implant and graft; Z87.442 Personal history of urinary calculi; Z91.5 Personal history of self-harm; Z98.890 Other specified postprocedural states; Z88.6 Allergy status to analgesic agent; Z91.018 Allergy to other foods; Z91.048 Other nonmedicinal substance allergy status; Z99.89 Dependence on other enabling machines and devices; Z82.49 Family history of ischemic heart disease and other diseases of the circulatory system; Z82.5 Family history of asthma and other chronic lower respiratory diseases; Z83.2 Family history of diseases of the blood and blood-forming organs and certain disorders involving the immune mechanism; Z83.49 Family history of other endocrine, nutritional and metabolic diseases; Z83.3 Family history of diabetes mellitus; Z80.1 Family history of malignant neoplasm of trachea, bronchus and lung; Z80.3 Family history of malignant neoplasm of breast; Z83.79 Family history of other diseases of the digestive system; Z81.8 Family history of other mental and behavioral disorders
CPT/HCPCS: 36573; 71046; 80053; 83615; 83735; 84100; 84550; 85025; 86644; 86850; 86900; 86901; 86920; 94640

== ENCOUNTER 2019-03-12 11:32 | Emergency (ER) | payer MEDICARE, OTHER ==
[2019-03-12 11:42] VITALS: RESP 18
[2019-03-12 12:48] LABS: Appearance,Urine Clear (Clear); Bilirubin,Urine Negative (Negative); Blood,Urine Negative (Negative); Color,Urine Yellow; Glucose,Urine (UA) Negative (Negative); Ketones,Urine Negative (Negative); Leukocyte Esterase,Urine Negative (Negative); Nitrite,Urine Negative (Negative); Protein,Urine Trace (Negative); Specific Gravity,Urine 1.029 (1.001-1.035)
[2019-03-12 12:50] LABS: Anisocytosis Slight; HCT 20.7 % (39.0-53.0); HGB 7.3 gm/dL (13.0-17.5); Hypochromasia Slight; MCH 28.3 pg (25.0-35.0); MCHC 35.1 g/dL (31.0-37.0); MCV 80.5 fL (80.0-100.0); Mean Platelet Volume 5.9; Microcytosis Slight; Poikilocytosis Moderate; RBC 2.57 m/uL (4.30-5.90); RDW 19.4 % (11.5-15.5)
[2019-03-12 13:01] LABS: ALT 32 U/L (21-72); AST 13 U/L (17-59); African American GFR (CKD) >90 (>60 ml/min/1.73 sqM); Albumin 3.8 g/dL (3.5-5.0); Alkaline Phosphatase 44 U/L (38-126); Anion Gap 12 mmol/L; Blood Urea Nitrogen 24 mg/dL (9-20); Calcium 9.4 mg/dL (8.4-10.2); Carbon Dioxide 21 mmol/L (22-30); Chloride 103 mmol/L (98-107); Glucose 114 mg/dL (74-99); Magnesium 2.5 mg/dL (1.6-2.3); Potassium 4.5 mmol/L (3.5-5.1); Sodium 136 mmol/L (137-145); Total Bilirubin 1.1 mg/dL (0.2-1.3); Total Protein 6.7 g/dL (6.3-8.2)
--- NOTE | 2019-03-12 13:08 | CT ---
EXAMINATION TYPE: CT brain wo con DATE OF EXAM: 03/12/2019 COMPARISON: Prior CT brain 01/14/2019 HISTORY: Fall CT DLP: 1041.4 mGycm. Automated Exposure Control for Dose Reduction was Utilized. TECHNIQUE: CT scan of the head is performed without contrast. FINDINGS: There is no acute intracranial hemorrhage, mass effect, or midline shift identified. The ventricles and sulci are within normal limits in size. The globes are intact and the visualized sin uses are remarkable for inflammatory change in the left maxillary sinus. Mild periventricular low-att enuation is noted as on prior exam. IMPRESSION: No acute intracranial hemorrhage, mass effect, or midline shift is seen.
--- NOTE | 2019-03-12 13:12 | XR ---
EXAMINATION TYPE: XR chest 2V DATE OF EXAM: 03/12/2019 COMPARISON: Prior chest x-ray 03/07/2019 HISTORY: Weakness, syncope TECHNIQUE: Frontal and lateral views of the chest are obtained. FINDINGS: There is no focal air space opacity, pleural effusion, or pneumothorax seen. The cardiac silhouette size is within normal limits. The osseous structures are intact. There is a stimulator c ord overlying the midthoracic spine as on prior exam, there additionally leads present coursing to th e cephalad aspect of the film. Left-sided PICC line is present with distal tip at the level of the ca voatrial junction. There are overlying cardiac leads. IMPRESSION: No acute cardiopulmonary process.
[2019-03-12 13:21] LABS: WBC 0.1 k/uL (3.8-10.6)
[2019-03-12 13:39] LABS: Platelet Count 6 k/uL (150-450); Rouleaux Present
[2019-03-12 14:03] LABS: Prothrombin Time 10.5 sec (9.0-12.0)
--- NOTE | 2019-03-12 17:43 | ED ---
General Adult HPI - General Chief complaint: Recheck/Abnormal Lab/Rx Stated complaint: fall Time Seen by Provider: 03/12/19 11:56 Source: patient Mode of arrival: ambulatory Limitations: no limitations - History of Present Illness Initial comments: Patient presents for an accidental fall with head injury. He is receiving chemotherapy for AML L. He denies any chest or belly or back pain. He has no nausea or vomiting. He has no neck pain or stiffness. He has no focal weakness. - Related Data Home Medications Medication Instructions Recorded Confirmed Montelukast Sodium [Singulair] 10 mg PO HS 06/01/16 03/12/19 Albuterol Inhaler [Ventolin Hfa 2 puff INHALATION RT-Q6H PRN 10/15/17 03/12/19 Inhaler] Atorvastatin [Lipitor] 80 mg PO PC-SUPPER 10/15/17 03/12/19 Beclomethasone Dipropionate [Qvar 2 puff INHALATION RT-BID 10/15/17 03/12/19 80 mcg] Fenofibrate Nanocrystallized 145 mg PO PC-SUPPER 10/15/17 03/12/19 [Fenofibrate] Metoprolol Succinate (ER) [Toprol 25 mg PO HS 10/15/17 03/12/19 XL] Venlafaxine HCl [Effexor XR] 150 mg PO HS 10/15/17 03/12/19 traZODone HCL 150 mg PO HS 10/15/17 03/12/19 Dicyclomine [Bentyl] 20 mg PO TID 01/10/19 03/12/19 Nitroglycerin Sl Tabs [Nitrostat] 0.4 mg SUBLINGUAL Q5M PRN 01/10/19 03/12/19 Previous Rx's Medication Instructions Recorded Divalproex [Depakote] 500 mg PO BID tablet. 01/27/19 metFORMIN HCL [Glucophage] 500 mg PO PC-SUPPER #0 02/19/19 Acyclovir [Zovirax] 400 mg PO BID #28 tab 03/10/19 Fluconazole [Diflucan] 100 mg PO DAILY #14 tablet 03/10/19 Levofloxacin [Levaquin] 500 mg PO DAILY #14 tab 03/10/19 Allergies Allergy/AdvReac Type Severity Reaction Status Date / Time naproxen [From Naprosyn] Allergy Unknown Rash/Hives Verified 03/12/19 12:18 adhesive tape Allergy Rash/Hives Verified 03/12/19 12:18 ibuprofen Allergy Itching Verified 03/12/19 12:18 mold Allergy Unknown Verified 03/12/19 12:18 carrot AdvReac Dyspnea Verified 03/12/19 12:18 chocolate flavor AdvReac Dyspnea Verified 03/12/19 12:18 grass pollen-perennial rye, AdvReac Dyspnea Verified 03/12/19 12:18 standar Review of Systems ROS Statement: Those systems with pertinent positive or pertinent negative responses have been documented in the HPI. ROS Other: All systems not noted in ROS Statement are negative. Past Medical History Past Medical History: Asthma, Cancer, Chest Pain / Angina, Diabetes Mellitus, GERD/Reflux, GI Bleed, Hyperlipidemia, Hypertension, Myocardial Infarction ([place]), Osteoarthritis (OA), Sleep Apnea/CPAP/BIPAP Additional Past Medical History / Comment(s): Pt recently admitted to [facility] on 02/14/19 with L lower abdominal pain/L urethral stone/pancytopenia under the care of hematology and had BMA. Other hx: AML newly diagnosed, NIDDM type II, neuropathy bilateral hands/feet, colitis, lower GI bleed, ASHLEY with Cpap, chronic cervical/lumbar pain-has neurostimulator to both sites, bilateral carpal tunnel syndrome, occasional tinnitis, "soft" cardiac murmur. ALL Last Myocardial Infarction Date:: 2007 per pt History of Any Multi-Drug Resistant Organisms: None Reported Past Surgical History: Heart Catheterization With Stent, Hernia Repair, Joint Replacement Additional Past Surgical History / Comment(s): Bone marrow aspiration/bx, rt knee arthroscopy x3, R total knee with revisoin, lt knee arthroscopy, cardiac stent x1 2007 per pt, stent placed for kidney stone 07/04/2016. Kidney stent has been removed. COLONOSCOPY. neuro stimulator implant cervial and recent another one in lumbar area, L inguinal hernia repair. Past Anesthesia/Blood Transfusion Reactions: No Reported Reaction Date of Last Stent Placement:: 2007 per pt Past Psychological History: Anxiety, Depression Smoking Status: Former smoker Past Alcohol Use History: None Reported Past Drug Use History: None Reported - Past Family History Father Family Medical History: Congestive Heart Failure (CHF), Deep Vein Thrombosis (DVT), Myocardial Infarction ([place]), Pulmonary Embolus Additional Family Medical History / Comment(s): [place] at age 38. "hole in colon" Mother Family Medical History: Cancer, COPD, Diabetes Mellitus, Hyperlipidemia Additional Family Medical History / Comment(s): Mother had breast and lung cancer. She of lung cancer in her 60s. Sister(s) Family Medical History: Diabetes Mellitus, Liver Disease Additional Family Medical History / Comment(s): bi-polar, anxiety. hysterectomy, fatty liver Brother(s) History Unknown: Yes General Exam Limitations: no limitations General appearance: alert, in no apparent distress Head exam: Present: atraumatic, normocephalic, normal inspection Eye exam: Present: normal appearance, PERRL, EOMI. Absent: scleral icterus, conjunctival injection, periorbital swelling ENT exam: Present: normal exam, mucous membranes moist Neck exam: Present: normal inspection. Absent: tenderness, meningismus, lymphadenopathy Respiratory exam: Present: normal lung sounds bilaterally. Absent: respiratory distress, wheezes, rales, rhonchi, stridor Cardiovascular Exam: Present: regular rate, normal rhythm, normal heart sounds. Absent: systolic murmur, diastolic murmur, rubs, gallop, clicks GI/Abdominal exam: Present: soft, normal bowel sounds. Absent: distended, tenderness, guarding, rebound, rigid Extremities exam: Present: normal inspection, full ROM, normal capillary refill. Absent: tenderness, pedal edema, joint swelling, calf tenderness Back exam: Present: normal inspection Neurological exam: Present: alert, oriented X3, CN II-XII intact Psychiatric exam: Present: normal affect, normal mood Skin exam: Present: warm, dry, intact, normal color. Absent: rash Course Vital Signs 03/12/19 03/12/19 03/12/19 11:37 13:31 15:21 Temperature 97.9 F 99.0 F Pulse Rate 89 87 97 Respiratory 18 18 18 Rate Blood Pressure 111/70 121/67 112/54 O2 Sat by Pulse 100 98 98 Oximetry 03/12/19 03/12/19 03/12/19 15:31 16:01 16:21 Temperature 98.8 F 98.4 F 99.3 F Pulse Rate 84 87 78 Respiratory 18 18 18 Rate Blood Pressure 129/70 120/70 128/67 O2 Sat by Pulse 97 Oximetry 03/12/19 17:31 Temperature 99.0 F Pulse Rate 87 Respiratory 18 Rate Blood Pressure 123/67 O2 Sat by Pulse Oximetry EKG Findings - EKG Comments: EKG Findings:: Twelve-lead EKG shows ventricular rate 97 bpm, normal MS interval and QRS complexes, no ST elevation or depression, interpreted by me as normal sinus rhythm. Medical Decision Making - Medical Decision Making Patient presents with head injury. I obtained a CT the head. It is negative. His platelet are very low. His white count is low. His hemoglobin is low, but at baseline. I discussed all this information with the patient's oncologist, who recommended a platelet transfusion. We did give the patient a platelet transfusion. He has developed no complications. He has no symptoms, problems, complaints on reevaluation. He would like to go home. He will follow-up with his primary care doctor and his oncologist. - Lab Data Result diagrams: 03/12/19 12:32 03/12/19 12:32 Lab Results 03/12/19 03/12/19 03/12/19 Range/Units 12:32 12:32 12:32 WBC 0.1 L* (3.8-10.6) k/uL RBC 2.57 L (4.30-5.90) m/uL Hgb 7.3 L (13.0-17.5) gm/dL Hct 20.7 L (39.0-53.0) % MCV 80.5 (80.0-100.0) fL MCH 28.3 (25.0-35.0) pg MCHC 35.1 (31.0-37.0) g/dL RDW 19.4 H (11.5-15.5) % Plt Count 6 L* D (150-450) k/uL Differential Comment Manual Slide Review Performed Hypochromasia Slight Poikilocytosis Moderate Anisocytosis Slight Microcytosis Slight Rouleaux Present PT 10.5 (9.0-12.0) sec INR 1.0 (<1.2) APTT 19.0 L (22.0-30.0) sec Sodium 136 L (137-145) mmol/L Potassium 4.5 (3.5-5.1) mmol/L Chloride 103 (98-107) mmol/L Carbon Dioxide 21 L (22-30) mmol/L Anion Gap 12 mmol/L BUN 24 H (9-20) mg/dL Creatinine 0.74 (0.66-1.25) mg/dL Est GFR (CKD-EPI)AfAm >90 (>60 ml/min/1.73 sqM) Est GFR (CKD-EPI)NonAf >90 (>60 ml/min/1.73 sqM) Glucose 114 H (74-99) mg/dL Calcium 9.4 (8.4-10.2) mg/dL Magnesium 2.5 H (1.6-2.3) mg/dL Total Bilirubin 1.1 (0.2-1.3) mg/dL AST 13 L (17-59) U/L ALT 32 (21-72) U/L Alkaline Phosphatase 44 (38-126) U/L Troponin I (0.000-0.034) ng/mL Total Protein 6.7 (6.3-8.2) g/dL Albumin 3.8 (3.5-5.0) g/dL Urine Color Urine Appearance (Clear) Urine pH (5.0-8.0) Ur Specific [place] (1.001-1.035) Urine Protein (Negative) Urine Glucose (UA) (Negative) Urine Ketones (Negative) Urine Blood (Negative) Urine Nitrite (Negative) Urine Bilirubin (Negative) Urine Urobilinogen (<2.0) mg/dL Ur Leukocyte Esterase (Negative) Blood Type Blood Type Recheck Bld Type Recheck Status Antibody Screen Transfuse Platelets Spec Expiration Date 03/12/19 03/12/19 03/12/19 Range/Units 12:32 12:32 12:32 WBC (3.8-10.6) k/uL RBC (4.30-5.90) m/uL Hgb (13.0-17.5) gm/dL Hct (39.0-53.0) % MCV (80.0-100.0) fL MCH (25.0-35.0) pg MCHC (31.0-37.0) g/dL RDW (11.5-15.5) % Plt Count (150-450) k/uL Differential Comment Manual Slide Review Hypochromasia Poikilocytosis Anisocytosis Microcytosis Rouleaux PT (9.0-12.0) sec INR (<1.2) APTT (22.0-30.0) sec Sodium (137-145) mmol/L Potassium (3.5-5.1) mmol/L Chloride (98-107) mmol/L Carbon Dioxide (22-30) mmol/L Anion Gap mmol/L BUN (9-20) mg/dL Creatinine (0.66-1.25) mg/dL Est GFR (CKD-EPI)AfAm (>60 ml/min/1.73 sqM) Est GFR (CKD-EPI)NonAf (>60 ml/min/1.73 sqM) Glucose (74-99) mg/dL Calcium (8.4-10.2) mg/dL Magnesium (1.6-2.3) mg/dL Total Bilirubin (0.2-1.3) mg/dL AST (17-59) U/L ALT (21-72) U/L Alkaline Phosphatase (38-126) U/L Troponin I <0.012 (0.000-0.034) ng/mL Total Protein (6.3-8.2) g/dL Albumin (3.5-5.0) g/dL Urine Color Yellow Urine Appearance Clear (Clear) Urine pH 6.0 (5.0-8.0) Ur Specific [place] 1.029 (1.001-1.035) Urine Protein Trace H (Negative) Urine Glucose (UA) Negative (Negative) Urine Ketones Negative (Negative) Urine Blood Negative (Negative) Urine Nitrite Negative (Negative) Urine Bilirubin Negative (Negative) Urine Urobilinogen 3.0 (<2.0) mg/dL Ur Leukocyte Esterase Negative (Negative) Blood Type O Positive Blood Type Recheck O Pos Bld Type Recheck Status No Antibody Screen NEGATIVE Transfuse Platelets 03/12/2019 Spec Expiration Date 03/15/2019 - 2332 Disposition Clinical Impression: Thrombocytopenia, Head injury Disposition: HOME SELF-CARE Condition: Good Instructions (If sedation given, give patient instructions): Head Injury (ED) Is patient prescribed a controlled substance at d/c from ED?: No Referrals: Veronika Dotson MD [Primary Care Provider] - 1-2 days
[2019-03-12 18:13] VITALS: BP 120/69; PULSE 100; TEMP 98
== END 2019-03-12 17:55 | disposition home or self-care (01) ==
LOC: EC 11:32
DX: S09.90XA Unspecified injury of head, initial encounter (principal); D69.6 Thrombocytopenia, unspecified; C92.00 Acute myeloblastic leukemia, not having achieved remission; J45.909 Unspecified asthma, uncomplicated; E78.5 Hyperlipidemia, unspecified; I10 Essential (primary) hypertension; I25.2 Old myocardial infarction; M19.90 Unspecified osteoarthritis, unspecified site; G47.33 Obstructive sleep apnea (adult) (pediatric); G89.29 Other chronic pain; M54.2 Cervicalgia; M54.5 Low back pain; F32.9 Major depressive disorder, single episode, unspecified; F41.9 Anxiety disorder, unspecified; Z87.891 Personal history of nicotine dependence; Z88.6 Allergy status to analgesic agent; Z91.02 Food additives allergy status; Z91.018 Allergy to other foods; Z91.048 Other nonmedicinal substance allergy status; Z79.51 Long term (current) use of inhaled steroids; Z79.899 Other long term (current) drug therapy; Z87.19 Personal history of other diseases of the digestive system; Z95.5 Presence of coronary angioplasty implant and graft; Z96.89 Presence of other specified functional implants; Z96.60 Presence of unspecified orthopedic joint implant; Z92.21 Personal history of antineoplastic chemotherapy; Z99.89 Dependence on other enabling machines and devices; W19.XXXA Unspecified fall, initial encounter; Y92.009 Unspecified place in unspecified non-institutional (private) residence as the place of occurrence of the external cause
CPT/HCPCS: 99284; 36415; 93005; 86900; 86901; 80053; 83735; 84484; 85025; 85610; 85730; 86850; 81003; 71046; 70450; P9037; 36430

== ENCOUNTER 2019-03-12 23:49 | Inpatient (IN) | payer MEDICARE, OTHER ==
--- NOTE | 2019-03-13 00:17 | ED ---
Syncope HPI - General Stated Complaint: syncope Time Seen by Provider: 03/12/19 23:57 Source: patient Mode of arrival: EMS Limitations: physical limitation - History of Present Illness MD Complaint: loss of consciousness, collapsed Onset/Timin -: hour(s) Prodromal Symptoms: none -: second(s) Witnessed: yes - by bystander Injuries Sustained Associated with Event: Head Current Symptoms: none Context: standing up Treatments Prior to Arrival: none - Related Data Home Medications Medication Instructions Recorded Confirmed Montelukast Sodium [Singulair] 10 mg PO HS 06/01/16 03/19/19 Albuterol Inhaler [Ventolin Hfa 2 puff INHALATION RT-Q6H PRN 10/15/17 03/19/19 Inhaler] Atorvastatin [Lipitor] 80 mg PO PC-SUPPER 10/15/17 03/19/19 Beclomethasone Dipropionate [Qvar 2 puff INHALATION RT-BID 10/15/17 03/19/19 80 mcg] Fenofibrate Nanocrystallized 145 mg PO PC-SUPPER 10/15/17 03/19/19 [Fenofibrate] Metoprolol Succinate (ER) [Toprol 25 mg PO HS 10/15/17 03/19/19 XL] Venlafaxine HCl [Effexor XR] 150 mg PO HS 10/15/17 03/19/19 traZODone HCL 150 mg PO HS 10/15/17 03/19/19 Dicyclomine [Bentyl] 20 mg PO TID 01/10/19 03/19/19 Nitroglycerin Sl Tabs [Nitrostat] 0.4 mg SUBLINGUAL Q5M PRN 01/10/19 03/19/19 Non Formulary Drug PO QID 03/20/19 Previous Rx's Medication Instructions Recorded Divalproex [Depakote] 500 mg PO BID tablet. 01/27/19 metFORMIN HCL [Glucophage] 500 mg PO PC-SUPPER #0 02/19/19 Acyclovir [Zovirax] 400 mg PO TID #42 cap 03/18/19 Fluconazole 200 mg PO DAILY #7 tab 03/18/19 Levofloxacin [Levaquin] 500 mg PO DAILY #7 tab 03/18/19 Mag Hydrox/Al Hydrox/Simeth 30 ml PO TID 14 Days #21 cup 03/18/19 [Maalox] Allergies Allergy/AdvReac Type Severity Reaction Status Date / Time naproxen [From Naprosyn] Allergy Unknown Rash/Hives Verified 03/20/19 00:54 adhesive tape Allergy Rash/Hives Verified 03/20/19 00:54 ibuprofen Allergy Itching Verified 03/20/19 00:54 mold Allergy Unknown Verified 03/20/19 00:54 vancomycin Allergy Rash/Hives Verified 03/20/19 00:54 carrot AdvReac Dyspnea Verified 03/20/19 00:54 chocolate flavor AdvReac Dyspnea Verified 03/20/19 00:54 grass pollen-perennial rye, AdvReac Dyspnea Verified 03/20/19 00:54 standar Review of Systems ROS Statement: Those systems with pertinent positive or pertinent negative responses have been documented in the HPI. ROS Other: All systems not noted in ROS Statement are negative. Constitutional: Reports: fever. Denies: chills Respiratory: Reports: cough. Denies: dyspnea, wheezes Cardiovascular: Reports: syncope. Denies: chest pain, palpitations, orthopnea, edema Gastrointestinal: Denies: abdominal pain, vomiting, diarrhea Genitourinary: Denies: dysuria, frequency, hematuria Musculoskeletal: Denies: back pain Skin: Denies: rash Neurological: Denies: headache, weakness, numbness, paresthesias Past Medical History Past Medical History: Asthma, Cancer, Chest Pain / Angina, Diabetes Mellitus, GERD/Reflux, GI Bleed, Hyperlipidemia, Hypertension, Myocardial Infarction ([place]), Osteoarthritis (OA), Sleep Apnea/CPAP/BIPAP Additional Past Medical History / Comment(s): Pt recently admitted to [facility] on 02/14/19 with L lower abdominal pain/L urethral stone/pancytopenia under the care of hematology and had BMA. Other hx: AML newly diagnosed, NIDDM type II, neuropathy bilateral hands/feet, colitis, lower GI bleed, ASHLEY with Cpap, chronic cervical/lumbar pain-has neurostimulator to both sites, bilateral carpal tunnel syndrome, occasional tinnitis, "soft" cardiac murmur. ALL Last Myocardial Infarction Date:: 2007 per pt History of Any Multi-Drug Resistant Organisms: None Reported Past Surgical History: Heart Catheterization With Stent, Hernia Repair, Joint Replacement Additional Past Surgical History / Comment(s): Bone marrow aspiration/bx, rt knee arthroscopy x3, R total knee with revisoin, lt knee arthroscopy, cardiac stent x1 2007 per pt, stent placed for kidney stone 07/04/2016. Kidney stent has been removed. COLONOSCOPY. neuro stimulator implant cervial and recent another one in lumbar area, L inguinal hernia repair. Past Anesthesia/Blood Transfusion Reactions: No Reported Reaction Date of Last Stent Placement:: 2007 per pt Past Psychological History: Anxiety, Depression Smoking Status: Former smoker Past Alcohol Use History: None Reported Past Drug Use History: None Reported - Past Family History Father Family Medical History: Congestive Heart Failure (CHF), Deep Vein Thrombosis (DVT), Myocardial Infarction ([place]), Pulmonary Embolus Additional Family Medical History / Comment(s): [place] at age 38. "hole in colon" Mother Family Medical History: Cancer, COPD, Diabetes Mellitus, Hyperlipidemia Additional Family Medical History / Comment(s): Mother had breast and lung cancer. She of lung cancer in her 60s. Sister(s) Family Medical History: Diabetes Mellitus, Liver Disease Additional Family Medical History / Comment(s): bi-polar, anxiety. hysterectomy, fatty liver Brother(s) History Unknown: Yes General Exam Limitations: physical limitation General appearance: alert, in no apparent distress Head exam: Present: atraumatic, normocephalic Eye exam: Present: normal appearance. Absent: scleral icterus, conjunctival injection ENT exam: Present: mucous membranes dry Neck exam: Present: normal inspection, full ROM Respiratory exam: Present: normal lung sounds bilaterally. Absent: respiratory distress, wheezes, rales, rhonchi, stridor, chest wall tenderness Cardiovascular Exam: Present: regular rate, normal rhythm, normal heart sounds. Absent: systolic murmur, diastolic murmur, rubs, gallop GI/Abdominal exam: Present: soft. Absent: distended, tenderness, guarding, rebound, mass Extremities exam: Present: normal inspection, normal capillary refill. Absent: pedal edema, calf tenderness Back exam: Present: normal inspection. Absent: CVA tenderness (R), CVA tenderness (L) Neurological exam: Present: alert, oriented X3. Absent: motor sensory deficit Skin exam: Present: warm, dry, intact, normal color. Absent: rash Course Vital Signs 03/13/19 03/13/19 03/13/19 00:02 00:04 01:12 Temperature 100.4 F H 100.1 F H Pulse Rate 97 90 Respiratory 24 18 18 Rate Blood Pressure 113/65 121/63 O2 Sat by Pulse 98 100 Oximetry 03/13/19 03/13/19 02:00 03:00 Temperature 100.8 F H Pulse Rate 91 97 Respiratory 14 18 Rate Blood Pressure 121/63 126/63 O2 Sat by Pulse 99 98 Oximetry - Reevaluation(s) Reevaluation #1: 03/13/19 02:39 Case discussed with the oncologist on-call Dr. Rojas and his recommendations are added to the orders. Medical Decision Making - Lab Data Result diagrams: 03/18/19 08:45 03/18/19 08:45 Lab Results 03/13/19 03/13/19 03/13/19 Range/Units 01:10 01:10 01:10 WBC 0.1 L* (3.8-10.6) k/uL RBC 2.43 L (4.30-5.90) m/uL Hgb 6.1 L* (13.0-17.5) gm/dL Hct 19.6 L* (39.0-53.0) % MCV 80.6 (80.0-100.0) fL MCH 25.2 (25.0-35.0) pg MCHC 31.2 (31.0-37.0) g/dL RDW 19.6 H (11.5-15.5) % Plt Count 12 L* D (150-450) k/uL Neutrophils # MONITORING MANAGER Differential Comment Manual Slide Review Performed Hypochromasia Slight Poikilocytosis Moderate Anisocytosis Slight Microcytosis Slight PT 10.8 (9.0-12.0) sec INR 1.0 (<1.2) APTT 28.1 (22.0-30.0) sec Sodium 137 (137-145) mmol/L Potassium 4.5 (3.5-5.1) mmol/L Chloride 102 (98-107) mmol/L Carbon Dioxide 24 (22-30) mmol/L Anion Gap 11 mmol/L BUN 21 H (9-20) mg/dL Creatinine 0.82 (0.66-1.25) mg/dL Est GFR (CKD-EPI)AfAm >90 (>60 ml/min/1.73 sqM) Est GFR (CKD-EPI)NonAf >90 (>60 ml/min/1.73 sqM) Glucose 109 H (74-99) mg/dL Plasma Lactic Acid Cory (0.7-2.0) mmol/L Calcium 9.1 (8.4-10.2) mg/dL Total Bilirubin 1.0 (0.2-1.3) mg/dL AST 14 L (17-59) U/L ALT 19 L (21-72) U/L Alkaline Phosphatase 48 (38-126) U/L Troponin I (0.000-0.034) ng/mL Total Protein 6.5 (6.3-8.2) g/dL Albumin 3.8 (3.5-5.0) g/dL Blood Type Blood Type Recheck Bld Type Recheck Status Antibody Screen Crossmatch Spec Expiration Date 03/13/19 03/13/19 03/13/19 Range/Units 01:10 01:10 01:10 WBC (3.8-10.6) k/uL RBC (4.30-5.90) m/uL Hgb (13.0-17.5) gm/dL Hct (39.0-53.0) % MCV (80.0-100.0) fL MCH (25.0-35.0) pg MCHC (31.0-37.0) g/dL RDW (11.5-15.5) % Plt Count (150-450) k/uL Neutrophils # Differential Comment Manual Slide Review Hypochromasia Poikilocytosis Anisocytosis Microcytosis PT (9.0-12.0) sec INR (<1.2) APTT (22.0-30.0) sec Sodium (137-145) mmol/L Potassium (3.5-5.1) mmol/L Chloride (98-107) mmol/L Carbon Dioxide (22-30) mmol/L Anion Gap mmol/L BUN (9-20) mg/dL Creatinine (0.66-1.25) mg/dL Est GFR (CKD-EPI)AfAm (>60 ml/min/1.73 sqM) Est GFR (CKD-EPI)NonAf (>60 ml/min/1.73 sqM) Glucose (74-99) mg/dL Plasma Lactic Acid Cory 1.6 (0.7-2.0) mmol/L Calcium (8.4-10.2) mg/dL Total Bilirubin (0.2-1.3) mg/dL AST (17-59) U/L ALT (21-72) U/L Alkaline Phosphatase (38-126) U/L Troponin I <0.012 (0.000-0.034) ng/mL Total Protein (6.3-8.2) g/dL Albumin (3.5-5.0) g/dL Blood Type O Positive Blood Type Recheck O Pos Bld Type Recheck Status No Antibody Screen NEGATIVE Crossmatch See Detail Spec Expiration Date 03/16/2019 - 1760 - EKG Data -: EKG Interpreted by Me EKG shows normal: sinus rhythm, axis (Normal), intervals (Normal), QRS complexes (Normal), ST-T waves (Normal) Rate: normal (Rate 92 bpm) Interpretation: normal EKG Critical Care Time Critical Care Time: Yes (35 minutes) Disposition Clinical Impression: Pancytopenia, Syncope, Fever Disposition: ADMITTED IP TO THIS [facility] Condition: Stable
[2019-03-13] MEDS ORDERED: CEFEPIME 2 GM in SODIUM CHLORIDE 0.9% 100 ML IVPB STA (00:41)
[2019-03-13 01:29] LABS: Anisocytosis Slight; Hypochromasia Slight; MCH 25.2 pg (25.0-35.0); MCHC 31.2 g/dL (31.0-37.0); MCV 80.6 fL (80.0-100.0); Mean Platelet Volume 7.2; Microcytosis Slight; Poikilocytosis Moderate; RBC 2.43 m/uL (4.30-5.90); RDW 19.6 % (11.5-15.5)
[2019-03-13 01:34] LABS: HCT 19.6 % (39.0-53.0); HGB 6.1 gm/dL (13.0-17.5); WBC 0.1 k/uL (3.8-10.6)
[2019-03-13 01:35] LABS: Partial Thromboplastin Time 28.1 sec (22.0-30.0); Prothrombin Time 10.8 sec (9.0-12.0)
--- NOTE | 2019-03-13 01:43 | CT ---
EXAMINATION TYPE: CT brain xavi flowers DATE OF EXAM: 03/13/2019 COMPARISON: Head CT scan yesterday HISTORY: fall Headache. Neck pain. CT DLP: 1284.6 mGycm Automated exposure control for dose reduction was used. TECHNIQUE: CT scan of the head and cervical spine are performed without contrast. FINDINGS: There is some cerebral cortical atrophy. There is no mass effect nor midline shift. There is no sign of intracranial hemorrhage. The calvarium is intact. Cervical vertebra have normal alignment. Disc spaces are fairly normal. There is mild anterior spurri ng. Posterior elements are intact. There is fusion of C2 and C3 vertebral bodies. There is neural sti mulator in the posterior spinal canal. The posterior elements are intact. There is mild hypertrophic facet arthropathy. IMPRESSION: Mild cerebral atrophy. No acute intracranial abnormality. No change compared to yesterday. Minor spondylotic changes in the cervical spine. No fracture seen.
[2019-03-13 01:49] LABS: ALT 19 U/L (21-72); AST 14 U/L (17-59); African American GFR (CKD) >90 (>60 ml/min/1.73 sqM); Albumin 3.8 g/dL (3.5-5.0); Alkaline Phosphatase 48 U/L (38-126); Anion Gap 11 mmol/L; Blood Urea Nitrogen 21 mg/dL (9-20); Calcium 9.1 mg/dL (8.4-10.2); Carbon Dioxide 24 mmol/L (22-30); Chloride 102 mmol/L (98-107); Glucose 109 mg/dL (74-99); Potassium 4.5 mmol/L (3.5-5.1); Sodium 137 mmol/L (137-145); Total Protein 6.5 g/dL (6.3-8.2)
[2019-03-13 01:55] LABS: Platelet Count 12 k/uL (150-450)
[2019-03-13] MEDS ORDERED: VANCOMYCIN IV PER PHARMACY 1 EACH MISC MISCELLANE PRN (02:39)
[2019-03-13] MEDS ORDERED: NALOXONE 0.4 MG/ML 1 ML VIAL IV PRN (02:40)
[2019-03-13] MEDS ORDERED: ONDANSETRON 4 MG/2 ML VIAL IVP PRN (02:40)
[2019-03-13] MEDS: ACETAMINOPHEN TAB 325 MG TAB PO PRN ×2 (03:28→20:19)
[2019-03-13] MEDS: SODIUM CHLORIDE 0.9% 1,000 ML IV SCH ×2 (03:29→16:31)
[2019-03-13 03:45] LABS: Glucose,Whole Blood 134 mg/dL (75-99)
[2019-03-13] MEDS ORDERED: VANCOMYCIN 1,500 MG in SODIUM CHLORIDE 0.9% 250 ML IVPB ONE (04:00)
[2019-03-13 09:47] LABS: Appearance,Urine Clear (Clear); Bilirubin,Urine Negative (Negative); Blood,Urine Negative (Negative); Color,Urine Yellow; Glucose,Urine (UA) Negative (Negative); Ketones,Urine Negative (Negative); Leukocyte Esterase,Urine Negative (Negative); Nitrite,Urine Negative (Negative); Protein,Urine Negative (Negative); Urobilinogen,Urine <2.0 mg/dL (<2.0)
[2019-03-13] MEDS ORDERED: ALBUTEROL NEBULIZED 2.5 MG/3 ML INHALATION PRN (10:11)
[2019-03-13] MEDS ORDERED: NITROGLYCERIN SL TABS 0.4 MG TAB SUBLINGUAL PRN (10:11)
--- NOTE | 2019-03-13 10:27 | P.HPIM ---
History of Present Illness H&P Date: 03/13/19 This is a 48-year-old male patient who presented with syncope and fever. Patient has been recently diagnosed acute myeloid leukemia and recently went first round of chemotherapy. Patient was discharged from hospital last Sunday and was doing good at home until 3 days ago. Patient reports he has been feeling weak. Patient reports 2 episodes of falling. Patient does not recall falling wakes up laying on the floor. She reports he presents the ER yesterday afternoon after sustaining a fall received blood product and was discharged home. Patient reports he again had another episode where he woke up on the floor. Additional medical history includes asthma, chest pain, diabetes mellitus, GERD, GI bleed, hyperlipidemia, hypertension, myocardial infections, osteoporosis, sleep apnea, anxiety and depression. Chest x-ray completed showing no acute cardiopulmonary process. Head and cervical spine CT completed showing mild cerebral atrophy. No acute intracranial abnormality. No change compared to yesterday minor spondylytic change cervical spine no fracture seen. EKG completed showing normal his rhythm and normal EKG. WBC low at 0.1 hemoglobin 6.1 and platelets 12. Patient started on vancomycin for elevated temperature. Dr. Valenzuela consulted. Blood and urine cultures ordered. Patient states he has been having loose stools, stool for C. diff ordered. Oncology services also consulted. At this time patient reports he is tired but feeling comfortable. Patient denies chest pain or shortness of breath. Patient denies nausea vomiting or diarrhea. Patient denies any urinary burning or frequency Review of Systems Please refer to HPI otherwise unremarkable Past Medical History Past Medical History: Asthma, Cancer, Chest Pain / Angina, Diabetes Mellitus, GERD/Reflux, GI Bleed, Hyperlipidemia, Hypertension, Myocardial Infarction (PR), Osteoarthritis (OA), Sleep Apnea/CPAP/BIPAP Additional Past Medical History / Comment(s): Pt recently admitted to [facility] on 02/14/19 with L lower abdominal pain/L urethral stone/pancytopenia under the care of hematology and had BMA. Other hx: AML newly diagnosed, NIDDM type II, neuropathy bilateral hands/feet, colitis, lower GI bleed, ASHLEY with Cpap, chronic cervical/lumbar pain-has neurostimulator to both sites, bilateral carpal tunnel syndrome, occasional tinnitis, "soft" cardiac murmur. ALL Last Myocardial Infarction Date:: 2007 per pt History of Any Multi-Drug Resistant Organisms: None Reported Past Surgical History: Heart Catheterization With Stent, Hernia Repair, Joint Replacement Additional Past Surgical History / Comment(s): Bone marrow aspiration/bx, rt knee arthroscopy x3, R total knee with revisoin, lt knee arthroscopy, cardiac stent x1 2007 per pt, stent placed for kidney stone 07/04/2016. Kidney stent has been removed. COLONOSCOPY. neuro stimulator implant cervial and recent another one in lumbar area, L inguinal hernia repair. Past Anesthesia/Blood Transfusion Reactions: No Reported Reaction Date of Last Stent Placement:: 2007 per pt Smoking Status: Former smoker - Past Family History Father Family Medical History: Congestive Heart Failure (CHF), Deep Vein Thrombosis (DVT), Myocardial Infarction (PR), Pulmonary Embolus Additional Family Medical History / Comment(s): PR at age 38. "hole in colon" Mother Family Medical History: Cancer, COPD, Diabetes Mellitus, Hyperlipidemia Additional Family Medical History / Comment(s): Mother had breast and lung cancer. She of lung cancer in her 60s. Sister(s) Family Medical History: Diabetes Mellitus, Liver Disease Additional Family Medical History / Comment(s): bi-polar, anxiety. hysterectomy, fatty liver Brother(s) History Unknown: Yes Medications and Allergies Home Medications Medication Instructions Recorded Confirmed Type Montelukast Sodium [Singulair] 10 mg PO HS 06/01/16 03/13/19 History Albuterol Inhaler [Ventolin Hfa 2 puff INHALATION RT-Q6H PRN 10/15/17 03/13/19 History Inhaler] Atorvastatin [Lipitor] 80 mg PO PC-SUPPER 10/15/17 03/13/19 History Beclomethasone Dipropionate [Qvar 2 puff INHALATION RT-BID 10/15/17 03/13/19 History 80 mcg] Fenofibrate Nanocrystallized 145 mg PO PC-SUPPER 10/15/17 03/13/19 History [Fenofibrate] Metoprolol Succinate (ER) [Toprol 25 mg PO HS 10/15/17 03/13/19 History XL] Venlafaxine HCl [Effexor XR] 150 mg PO HS 10/15/17 03/13/19 History traZODone HCL 150 mg PO HS 10/15/17 03/13/19 History Dicyclomine [Bentyl] 20 mg PO TID 01/10/19 03/13/19 History Nitroglycerin Sl Tabs [Nitrostat] 0.4 mg SUBLINGUAL Q5M PRN 01/10/19 03/13/19 History Divalproex [Depakote] 500 mg PO BID tablet. 01/27/19 03/13/19 Rx metFORMIN HCL [Glucophage] 500 mg PO PC-SUPPER #0 02/19/19 03/13/19 Rx Acyclovir [Zovirax] 400 mg PO BID #28 tab 03/10/19 03/13/19 Rx Fluconazole [Diflucan] 100 mg PO DAILY #14 tablet 03/10/19 03/13/19 Rx Levofloxacin [Levaquin] 500 mg PO DAILY #14 tab 03/10/19 03/13/19 Rx Allergies Allergy/AdvReac Type Severity Reaction Status Date / Time naproxen [From Naprosyn] Allergy Unknown Rash/Hives Verified 03/13/19 08:23 adhesive tape Allergy Rash/Hives Verified 03/13/19 08:23 ibuprofen Allergy Itching Verified 03/13/19 08:23 mold Allergy Unknown Verified 03/13/19 08:23 carrot AdvReac Dyspnea Verified 03/13/19 08:23 chocolate flavor AdvReac Dyspnea Verified 03/13/19 08:23 grass pollen-perennial rye, AdvReac Dyspnea Verified 03/13/19 08:23 standar Physical Exam Vitals: Vital Signs Temp Pulse Pulse Resp BP BP Pulse Ox 03/13/19 09:06 98.5 F 87 16 103/49 98 03/13/19 08:00 98.7 F 101 H 16 103/49 99 03/13/19 06:33 98.7 F 87 18 105/52 99 03/13/19 06:03 98.7 F 81 15 107/49 95 03/13/19 05:53 98.7 F 84 18 111/52 03/13/19 04:00 99.3 F 86 18 116/40 95 03/13/19 03:31 100.8 F H 104 H 18 127/68 98 03/13/19 03:00 97 18 126/63 98 03/13/19 02:00 100.8 F H 94 18 121/63 99 03/13/19 01:12 100.1 F H 90 18 121/63 100 03/13/19 00:04 100.4 F H 97 18 113/65 98 Intake and Output 03/12/19 03/13/19 03/13/19 22:59 06:59 14:59 Intake Total 150 310 Output Total 200 Balance -50 310 Intake: IV 150 Sodium Chloride 0.9% 1, 150 000 ml @ 75 mls/hr IV . [id number] [facility] Rx#:[id number] Blood Product 0 310 Rc Irr As1 Unit 0 310 [id number] Output: Urine 200 Other: Weight 85.3 kg Head normocephalic Neck supple Lungs clear to auscultation bilaterally no wheezing or crackles Heart regular rate and rhythm S1-S2, no rub or gallop Abdomen is soft nontender nondistended positive bowel sounds no hepatosplenomegaly Extremities no edema Neuro alert and orientated to 3 Results CBC & Chem 7: 03/13/19 01:10 03/13/19 01:10 Labs: Abnormal Lab Results - Last 24 Hours (Table) 03/13/19 03/13/19 03/13/19 Range/Units 01:10 01:10 01:10 WBC 0.1 L* (3.8-10.6) k/uL RBC 2.43 L (4.30-5.90) m/uL Hgb 6.1 L* (13.0-17.5) gm/dL Hct 19.6 L* (39.0-53.0) % RDW 19.6 H (11.5-15.5) % Plt Count 12 L* D (150-450) k/uL BUN 21 H (9-20) mg/dL Glucose 109 H (74-99) mg/dL POC Glucose (mg/dL) (75-99) mg/dL AST 14 L (17-59) U/L ALT 19 L (21-72) U/L Crossmatch See Detail 03/13/19 Range/Units 03:43 WBC (3.8-10.6) k/uL RBC (4.30-5.90) m/uL Hgb (13.0-17.5) gm/dL Hct (39.0-53.0) % RDW (11.5-15.5) % Plt Count (150-450) k/uL BUN (9-20) mg/dL Glucose (74-99) mg/dL POC Glucose (mg/dL) 134 H (75-99) mg/dL AST (17-59) U/L ALT (21-72) U/L Crossmatch Thrombosis Risk Factor Assmnt - Choose All That Apply Any of the Below Risk Factors Present?: Yes Each Factor Represents 1 point: Age 41-60 years Other Risk Factors: No Other congenital or acquired thrombophilia - If yes, enter type in comment: No Thrombosis Risk Factor Assessment Total Risk Factor Score: 1 Thrombosis Risk Factor Assessment Level: Low Risk Assessment and Plan Assessment: 1. Syncopal episode. CT of head and cervical spine completed showing mild cerebral atrophy. No acute intracranial abnormality. No change compared to yesterday. Minor spondylitic changes and cervical spine no fracture seen. On 01/26/2019 prior to chemotherapy 2-D echo completed showing an EF of 55-60% 2. Febrile. Dr. Valenzuela has been consulted for infectious disease. Patient started vancomycin. Urine and sputum cultures ordered. Chest x-ray completed showing no acute pulmonary process 3. Diarrhea. Stool for C. diff ordered 4. 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 received 1 unit PRBCs 5. Acute erythoid leukemia. Patient recently underwent first round of c hemotherapy completed on 03/10/2019 6. History of left ureteral calculus 7. History of essential hypertension. Home medications Lopressor resumed with parameters 8. History of diabetes mellitus 2. Metformin on hold sliding scale insulin ordered 9. History of depression 10. History of coronary artery disease 11. History of obstructive sleep apnea maintained on CPAP 12. History of hyperlipidemia. Maintain on Lipitor and fenofibrate 13. History of bipolar home was present DVT prophylaxis SCDs due to pancytopenia. GI prophylaxis Pepcid Time with Patient: Greater than 30 (Greater than 60% of the total time spent in counseling and coordination of care. I performed an examination of the patient and discussed their management with the Nurse Practitioner. I have reviewed the Nurse Practitioner's notes and agree with the documented findings and plan of care)
[2019-03-13] MEDS: INSULIN ASPART (NovoLOG) 100 UNIT/ML VIAL SQ SCH ×3 (12:24→21:37)
[2019-03-13 12:25] LABS: Glucose,Whole Blood 119 mg/dL (75-99)
[2019-03-13] MEDS: VANCOMYCIN 1,500 MG in SODIUM CHLORIDE 0.9% 250 ML IVPB SCH ×2 (12:31→20:04)
[2019-03-13] MEDS ORDERED: VANCOMYCIN 1,250 MG in SODIUM CHLORIDE 0.9% 250 ML IVPB SCH (13:00)
--- NOTE | 2019-03-13 13:58 | P.CONS ---
History of Present Illness - Reason for Consult Consult date: 03/13/19 AEL, s/p induction chemotherapy, neutropenic fever, pancytopenia Requesting physician: Jose Enriquez - Chief Complaint dizziness, falls, fever - History of Present Illness Mister Burnham is a very pleasant 48-year-old male patient of Dr. Rojas recently diagnosed with acute erythroid leukemia. He had induction chemo with 7+3 regimen, 03/03-03/10, he was discharged earlier this week. In the outpatient setting patient was coming to office for follow-up as directed, 3 times a week. When there for labs pt was complaining of dizziness as well as falls. At that time his platelets were checked and they were less than 10,000, recommendation was for patient to go to the emergency department to be evaluated. In the emergency department he had CT head with no bleed identified. He did spike a fever of 100.8 Fahrenheit while there, WBC 0.1, Hgb 6.1 and plt 12,000. Garvin cultures ordered, and prophylactic antibiotics initiated, patient was sent to the intensive care unit for close monitoring. When seen today patient has complaints of being dizzy when he tries to ambulate, no falls since being inpatient, he denies bleeding, no fevers since the initial one in the ER, no appetite, mild oral irritation, no difficulty in breathing, chest pain, palpitations, the right side of his abdomen is uncomfortable when he lays on his back, no pain on the left side, no complaints of distention, dysuria, hematuria, he is having diarrhea, denies black or bloody stools, incontinence, swelling in the lower extremities, bleeding or pain. He has had a follow up CT with confirmation of no bleeding in the head/neck, CXR reported no acute process. C- diff pending. Review of Systems 14 point ROS is negative except as stated in HPI Past Medical History Past Medical History: Asthma, Cancer, Chest Pain / Angina, Diabetes Mellitus, GERD/Reflux, GI Bleed, Hyperlipidemia, Hypertension, Myocardial Infarction (MT), Osteoarthritis (OA), Sleep Apnea/CPAP/BIPAP Additional Past Medical History / Comment(s): Pt recently admitted to [facility] on 02/14/19 with L lower abdominal pain/L urethral stone/pancytopenia under the care of hematology and had BMA. Other hx: AML newly diagnosed, NIDDM type II, neuropathy bilateral hands/feet, colitis, lower GI bleed, ASHLEY with Cpap, chronic cervical/lumbar pain-has neurostimulator to both sites, bilateral carpal tunnel syndrome, occasional tinnitis, "soft" cardiac murmur. ALL Last Myocardial Infarction Date:: 2007 per pt History of Any Multi-Drug Resistant Organisms: None Reported Past Surgical History: Heart Catheterization With Stent, Hernia Repair, Joint Replacement Additional Past Surgical History / Comment(s): Bone marrow aspiration/bx, rt knee arthroscopy x3, R total knee with revisoin, lt knee arthroscopy, cardiac stent x1 2007 per pt, stent placed for kidney stone 07/04/2016. Kidney stent has been removed. COLONOSCOPY. neuro stimulator implant cervial and recent another one in lumbar area, L inguinal hernia repair. Past Anesthesia/Blood Transfusion Reactions: No Reported Reaction Date of Last Stent Placement:: 2007 per pt Smoking Status: Former smoker - Past Family History Father Family Medical History: Congestive Heart Failure (CHF), Deep Vein Thrombosis (DVT), Myocardial Infarction (MT), Pulmonary Embolus Additional Family Medical History / Comment(s): MT at age 38. "hole in colon" Mother Family Medical History: Cancer, COPD, Diabetes Mellitus, Hyperlipidemia Additional Family Medical History / Comment(s): Mother had breast and lung cancer. She of lung cancer in her 60s. Sister(s) Family Medical History: Diabetes Mellitus, Liver Disease Additional Family Medical History / Comment(s): bi-polar, anxiety. hysterectomy, fatty liver Brother(s) History Unknown: Yes Medications and Allergies Home Medications Medication Instructions Recorded Confirmed Type Montelukast Sodium [Singulair] 10 mg PO HS 06/01/16 03/13/19 History Albuterol Inhaler [Ventolin Hfa 2 puff INHALATION RT-Q6H PRN 10/15/17 03/13/19 History Inhaler] Atorvastatin [Lipitor] 80 mg PO PC-SUPPER 10/15/17 03/13/19 History Beclomethasone Dipropionate [Qvar 2 puff INHALATION RT-BID 10/15/17 03/13/19 History 80 mcg] Fenofibrate Nanocrystallized 145 mg PO PC-SUPPER 10/15/17 03/13/19 History [Fenofibrate] Metoprolol Succinate (ER) [Toprol 25 mg PO HS 10/15/17 03/13/19 History XL] Venlafaxine HCl [Effexor XR] 150 mg PO HS 10/15/17 03/13/19 History traZODone HCL 150 mg PO HS 10/15/17 03/13/19 History Dicyclomine [Bentyl] 20 mg PO TID 01/10/19 03/13/19 History Nitroglycerin Sl Tabs [Nitrostat] 0.4 mg SUBLINGUAL Q5M PRN 01/10/19 03/13/19 History Divalproex [Depakote] 500 mg PO BID tablet. 01/27/19 03/13/19 Rx metFORMIN HCL [Glucophage] 500 mg PO PC-SUPPER #0 02/19/19 03/13/19 Rx Acyclovir [Zovirax] 400 mg PO BID #28 tab 03/10/19 03/13/19 Rx Fluconazole [Diflucan] 100 mg PO DAILY #14 tablet 03/10/19 03/13/19 Rx Levofloxacin [Levaquin] 500 mg PO DAILY #14 tab 03/10/19 03/13/19 Rx Allergies Allergy/AdvReac Type Severity Reaction Status Date / Time naproxen [From Naprosyn] Allergy Unknown Rash/Hives Verified 03/13/19 08:23 adhesive tape Allergy Rash/Hives Verified 03/13/19 08:23 ibuprofen Allergy Itching Verified 03/13/19 08:23 mold Allergy Unknown Verified 03/13/19 08:23 carrot AdvReac Dyspnea Verified 03/13/19 08:23 chocolate flavor AdvReac Dyspnea Verified 03/13/19 08:23 grass pollen-perennial rye, AdvReac Dyspnea Verified 03/13/19 08:23 standar Physical Exam Vitals: Vital Signs Temp Pulse Pulse Resp BP BP Pulse Ox 03/13/19 12:00 98.1 F 89 9 L 103/49 97 03/13/19 10:00 92 19 103/49 96 03/13/19 09:06 98.5 F 87 16 103/49 98 03/13/19 08:00 98.7 F 82 101 H 17 105/52 103/49 98 03/13/19 06:33 98.7 F 87 18 105/52 99 03/13/19 06:03 98.7 F 81 15 107/49 95 03/13/19 06:00 82 16 111/52 96 03/13/19 05:53 98.7 F 84 18 111/52 03/13/19 04:00 99.3 F 85 86 11 L 119/63 116/40 95 03/13/19 03:31 100.8 F H 104 H 18 127/68 98 03/13/19 03:00 97 18 126/63 98 03/13/19 02:00 100.8 F H 91 14 121/63 99 03/13/19 01:12 100.1 F H 90 18 121/63 100 03/13/19 00:04 100.4 F H 97 18 113/65 98 03/13/19 00:02 24 Intake and Output 03/12/19 03/13/19 03/13/19 22:59 06:59 14:59 Intake Total 150 920 Output Total 200 800 Balance -50 120 Intake: IV 150 300 Sodium Chloride 0.9% 1, 150 300 000 ml @ 75 mls/hr IV . [id number] [facility] Rx#:[id number] Blood Product 0 620 Rc Irr As1 Unit 0 310 [id number] Output: Urine 200 800 Other: Weight 85.3 kg - Constitutional General appearance: average body habitus, cooperative, no acute distress - EENT dry mouth Eyes: anicteric sclerae, EOMI, poor dentition ENT: hearing grossly normal - Neck Neck: no lymphadenopathy - Respiratory Respiratory: bilateral: CTA - Cardiovascular Rhythm: regular Heart sounds: normal: S1, S2 Abnormal Heart Sounds: no systolic murmur, no diastolic murmur, no rub, no S3 Gallop, no S4 Gallop, no click, no other leg Peripheral Edema: bilateral: None - Gastrointestinal General gastrointestinal: no absent bowel sounds, no decreased bowel sounds, no distended, no hepatomegaly, hyperactive bowel sounds, no normal bowel sounds, no organomegaly, no rigid, no scaphoid, soft, no splenomegaly, tenderness, no umbilical hernia, no ventral hernia Localized gastrointestinal: tender: RUQ, RLQ - Integumentary Integumentary: normal turgor, pale - Neurologic Neurologic: CNII-XII intact - Musculoskeletal Musculoskeletal: generalized weakness, strength equal bilaterally - Psychiatric Psychiatric: A&O x's 3, appropriate affect, intact judgment & insight Results CBC & Chem 7: 03/13/19 01:10 03/13/19 01:10 Labs: Abnormal Lab Results - Last 24 Hours (Table) 03/13/19 03/13/19 03/13/19 Range/Units 01:10 01:10 01:10 WBC 0.1 L* (3.8-10.6) k/uL RBC 2.43 L (4.30-5.90) m/uL Hgb 6.1 L* (13.0-17.5) gm/dL Hct 19.6 L* (39.0-53.0) % RDW 19.6 H (11.5-15.5) % Plt Count 12 L* D (150-450) k/uL BUN 21 H (9-20) mg/dL Glucose 109 H (74-99) mg/dL POC Glucose (mg/dL) (75-99) mg/dL AST 14 L (17-59) U/L ALT 19 L (21-72) U/L Crossmatch See Detail 03/13/19 03/13/19 Range/Units 03:43 12:24 WBC (3.8-10.6) k/uL RBC (4.30-5.90) m/uL Hgb (13.0-17.5) gm/dL Hct (39.0-53.0) % RDW (11.5-15.5) % Plt Count (150-450) k/uL BUN (9-20) mg/dL Glucose (74-99) mg/dL POC Glucose (mg/dL) 134 H 119 H (75-99) mg/dL AST (17-59) U/L ALT (21-72) U/L Crossmatch Chest x-ray: report reviewed CT Scan - head: report reviewed Assessment and Plan (1) Fever Narrative/Plan: Empiric antibiotics, garvin cultures pending. No G-CSF, patient is not confirmed remission. ID consulted Current Visit: Yes Status: Acute Priority: High Code(s): R50.9 - FEVER, UNSPECIFIED SNOMED Code(s): 619371285 (2) Pancytopenia Narrative/Plan: Chemotherapy-induced pancytopenia. Patient to receive irradiated blood produc ts. Patient is being transfused with 1 unit of packed red blood cells today. Transfuse for hemoglobin less than 7 or if symptomatic. Platelet count of 12,000, no acute intervention. Transfuse platelets if they are less than 10,000 or if symptomatic. No intervention for the extremely low white count, patient is not confirmed remission Current Visit: Yes Status: Acute Priority: High Code(s): D61.818 - OTHER PANCYTOPENIA SNOMED Code(s): 045154865 (3) Acute erythroid leukemia Narrative/Plan: Patient is status post induction 7+3 chemotherapy regimen, completed earlier this week. Patient will be scheduled for bone marrow biopsy and aspirate within the next 2 weeks to evaluate for remission. Current Visit: No Status: Acute Priority: High Code(s): C94.00 - ACUTE ERYTHROID LEUKEMIA, NOT HAVING ACHIEVED REMISSION SNOMED Code(s): 52139619 (4) Dizziness Narrative/Plan: Multifactorial including anemia and possibly to a degree some mild dehydration and/or early sepsis. Patient is being transfused with PRBCs, he is being hydrated and Garvin cultures pending. Patient encouraged to ambulate to the bathroom with assistance Current Visit: Yes Status: Acute Priority: High Code(s): R42 - DIZZINESS AND GIDDINESS SNOMED Code(s): 281479120 (5) Diarrhea Narrative/Plan: C. difficile is pending. Due to patient's extremely low white count but with only mild abd symptoms, he was switched to a full liquid diet. Close monitoring of the abdomen for tenderness, if persistent or progressive tenderness patient will be changed to nothing by mouth. Once C. difficile resulted, if negative, patient could be started on antidiarrheals Current Visit: Yes Status: Acute Priority: High Code(s): R19.7 - DIARRHEA, UNSPECIFIED SNOMED Code(s): 52390593 Plan: Salt and soda for oral irritation [place] ensure per pt request
[2019-03-13] MEDS: MAG HYDROX/AL HYDROX/SIMETH 30 ML, LIDOCAINE VISCOUS 30 ML, diphenhydrAMINE ELIXIR 75 M... PO SCH ×8 (16:30→21:14)
[2019-03-13] MEDS: SALT AND SODA MOUTHWASH 1,000 ML PO SCH ×3 (16:31→23:43)
[2019-03-13 17:23] LABS: African American GFR (CKD) >90 (>60 ml/min/1.73 sqM); Anion Gap 7 mmol/L; Blood Urea Nitrogen 14 mg/dL (9-20); Calcium 8.7 mg/dL (8.4-10.2); Carbon Dioxide 23 mmol/L (22-30); Chloride 105 mmol/L (98-107); Glucose 108 mg/dL (74-99); Potassium 4.2 mmol/L (3.5-5.1); Sodium 135 mmol/L (137-145)
[2019-03-13 17:30] LABS: Anisocytosis Slight; Basophils % (A) 2 %; Eosinophils % (A) 3 %; Hypochromasia Slight; Lymphocytes # (A) 0.1 k/uL (1.0-4.8); Lymphocytes % (A) 72 %; MCH 28.7 pg (25.0-35.0); MCHC 35.5 g/dL (31.0-37.0); MCV 80.9 fL (80.0-100.0); Mean Platelet Volume 4.8; Microcytosis Slight; Monocytes % (A) 4 %; Neutrophils % (A) 17 %; Poikilocytosis Moderate; RBC 2.39 m/uL (4.30-5.90); RDW 18.7 % (11.5-15.5)
[2019-03-13 17:33] LABS: HCT 19.4 % (39.0-53.0); HGB 6.9 gm/dL (13.0-17.5); WBC 0.2 k/uL (3.8-10.6)
[2019-03-13 17:38] LABS: Glucose,Whole Blood 141 mg/dL (75-99)
[2019-03-13 17:46] LABS: Platelet Count 9 k/uL (150-450); Poikilocytosis (M) Present
[2019-03-13] MEDS: FENOFIBRATE 160 MG TAB PO SCH (18:16)
[2019-03-13] MEDS: ATORVASTATIN 80 MG TAB PO SCH (18:16)
[2019-03-13] MEDS: MONTELUKAST 10 MG TAB PO SCH (20:03)
[2019-03-13] MEDS: DIVALPROEX 500 MG TABLET.DR PO SCH (20:03)
[2019-03-13] MEDS: METOPROLOL SUCCINATE (ER) 25 MG TAB.ER.24H PO SCH (20:04)
[2019-03-13] MEDS: FLUTICASONE 110 MCG INHALER INHALATION SCH (20:23)
--- NOTE | 2019-03-13 21:06 | P.CONS ---
History of Present Illness - Reason for Consult Consult date: 03/13/19 - Chief Complaint Falls and weakness - History of Present Illness 48-year-old male who has a history of anemia that was of unclear etiology. 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 From March 03 the he was admitted to hospital for his induction chemotherapy of the 7+3 regimens. He did seem to tolerate the regimen well and was following in the outpatient clinic because certainly have dizziness and having falls. Because he was feeling poorly he was further assessed and platelets were less than 10,000 and significant anemia was noted. The patient also had a temperature to 100.8 and calcium was admitted to hospital. He is receiving supportive transfusions of packed red cells and platelets and because of the fever and leukopenia the infectious diseases consultation was requested. The barely had some soft stool but not megan diarrhea per the nursing staff at this time. The patient is in the ICU but is a cardiac care overflow patient at this time. He does not have hypotension or evidence of septic shock. Review of Systems HEENT:Denies headache or acute visual change. Denies sinus or mouth discomforts. Denies neck stiffness or pain. Denies significant oral cavity pain. Denies difficulty on swallowing. Lungs: Denies significant shortness of breath, cough, sputum production, or hemoptysis. Cardiovascular: Denies significant shortness of breath, chest pain, chest wall pain, orthopnea, dyspnea on exertion, syncope Gastrointestinal:Denies nausea, vomiting, diarrhea, constipation, hematemesis, melena, hematochezia. No no significant change of bowel habit noticed. Musculoskeletal: denies significant myalgias or arthralgias. No new joint swelling. Denies new back pain. Skin: Does not have open wounds or rash but he has several areas of ecchymosis from his recent falls, no significant tender hematomas are noted Neuro: He does have headache but it is not acute or changed no acute visual changes Denies any new onset weakness or difficulty with ambulation. Denies falls or seizures. Psychiatric: Has anxiety about his diagnosis is starting to improve Endocrine: He has significant fatigue and he has had some weight loss Past Medical History Past Medical History: Asthma, Cancer, Chest Pain / Angina, Diabetes Mellitus, GERD/Reflux, GI Bleed, Hyperlipidemia, Hypertension, Myocardial Infarction ([place]), Osteoarthritis (OA), Sleep Apnea/CPAP/BIPAP Additional Past Medical History / Comment(s): Pt recently admitted to [facility] on 02/14/19 with L lower abdominal pain/L urethral stone/pancytopenia under the care of hematology and had BMA. Other hx: AML newly diagnosed, NIDDM type II, neuropathy bilateral hands/feet, colitis, lower GI bleed, AHSLEY with Cpap, chronic cervical/lumbar pain-has neurostimulator to both sites, bilateral carpal tunnel syndrome, occasional tinnitis, "soft" cardiac murmur. ALL Last Myocardial Infarction Date:: 2007 per pt History of Any Multi-Drug Resistant Organisms: None Reported Past Surgical History: Heart Catheterization With Stent, Hernia Repair, Joint Replacement Additional Past Surgical History / Comment(s): Bone marrow aspiration/bx, rt knee arthroscopy x3, R total knee with revisoin, lt knee arthroscopy, cardiac stent x1 2008 per pt, stent placed for kidney stone 07/04/2016. Kidney stent has been removed. COLONOSCOPY. neuro stimulator implant cervial and recent another one in lumbar area, L inguinal hernia repair. Past Anesthesia/Blood Transfusion Reactions: No Reported Reaction Date of Last Stent Placement:: 2007 per pt Additional Psychological History / Comment(s): and lives with the and child. Medically disabled with neuropathy and bipolar disorder. No experience. International travel. 2 petCats in the home instructed not to change the box Smoking Status: Former smoker - Past Family History Father Family Medical History: Congestive Heart Failure (CHF), Deep Vein Thrombosis (DVT), Myocardial Infarction ([place]), Pulmonary Embolus Additional Family Medical History / Comment(s): [place] at age 38. "hole in colon" Mother Family Medical History: Cancer, COPD, Diabetes Mellitus, Hyperlipidemia Additional Family Medical History / Comment(s): Mother had breast and lung cancer. She of lung cancer in her 60s. Sister(s) Family Medical History: Diabetes Mellitus, Liver Disease Additional Family Medical History / Comment(s): bi-polar, anxiety. hysterectomy, fatty liver Brother(s) History Unknown: Yes Medications and Allergies Home Medications and Allergies Comment(s): Current Medications Acetaminophen (Tylenol Tab) 650 mg PO Q6HR PRN PRN Reason: Mild Pain or Fever > 100.5 Last Admin: 03/13/19 20:19 Dose: 650 mg Documented by: Acyclovir (Zovirax) 400 mg PO BID [facility] Albuterol Sulfate (Ventolin Nebulized) 2.5 mg INHALATION RT-Q6H PRN PRN Reason: Shortness Of Breath Atorvastatin Calcium (Lipitor) 80 mg PO PC-SUPPER [facility] Last Admin: 03/13/19 18:16 Dose: 80 mg Documented by: Al Hydroxide/Mg Hydroxide 30 ml/ Lidocaine HCl 30 ml/Diphenhydramine HCl 75 mg/Nystatin 3,000,000 unit 0 ml PO TID [facility] Last Admin: 03/13/19 16:30 Dose: 5 ml Documented by: Divalproex Sodium (Depakote) 500 mg PO BID [facility] Last Admin: 03/13/19 20:03 Dose: 500 mg Documented by: Famotidine (Pepcid) 20 mg PO DAILY [facility] Fenofibrate (Lofibra) 160 mg PO PC-SUPPER [facility] Last Admin: 03/13/19 18:16 Dose: 160 mg Documented by: Fluconazole (Diflucan) 100 mg PO DAILY [facility] Fluticasone Propionate (Flovent 110 Mcg Inhaler) 2 puff INHALATION RT-BID [facility] Last Admin: 03/13/19 20:23 Dose: 2 puff Documented by: Sodium Chloride (Saline 0.9%) 1,000 mls @ 75 mls/hr IV .[id number] [facility] Last Admin: 03/13/19 16:31 Dose: 75 mls/hr Documented by: Vancomycin HCl 1,500 mg/ (Sodium Chloride) 250 mls @ 125 mls/hr IVPB Q8H [facility] Last Admin: 03/13/19 20:04 Dose: 125 mls/hr Documented by: Insulin Aspart (Novolog) 0 unit SQ ACHS [facility]; Protocol Last Admin: 03/13/19 17:40 Dose: Not Given Documented by: Metoprolol Succinate (Toprol Xl) 25 mg PO [facility] Last Admin: 03/13/19 20:04 Dose: 25 mg Documented by: Miscellaneous Information (Vancomycin Trough Due) 0 each MISCELLANE DIRECTED ONE Stop: 03/14/19 12:01 Montelukast Sodium (Singulair) 10 mg PO [facility] Last Admin: 03/13/19 20:03 Dose: 10 mg Documented by: Naloxone HCl (Narcan) 0.2 mg IV Q2M PRN PRN Reason: Opioid Reversal Nitroglycerin (Nitrostat) 0.4 mg SUBLINGUAL Q5M PRN PRN Reason: Chest Pain Sodium Bicarbonate () 5 ml PO 5XD [facility] Last Admin: 03/13/19 16:31 Dose: Not Given Documented by: Trazodone HCl (Desyrel) 150 mg PO HS [facility] Venlafaxine HCl (Effexor Xr) 150 mg PO HS [facility] Home Medications Medication Instructions Recorded Confirmed Type Montelukast Sodium [Singulair] 10 mg PO HS 06/01/16 03/13/19 History Albuterol Inhaler [Ventolin Hfa 2 puff INHALATION RT-Q6H PRN 10/15/17 03/13/19 History Inhaler] Atorvastatin [Lipitor] 80 mg PO PC-SUPPER 10/15/17 03/13/19 History Beclomethasone Dipropionate [Qvar 2 puff INHALATION RT-BID 10/15/17 03/13/19 History 80 mcg] Fenofibrate Nanocrystallized 145 mg PO PC-SUPPER 10/15/17 03/13/19 History [Fenofibrate] Metoprolol Succinate (ER) [Toprol 25 mg PO HS 10/15/17 03/13/19 History XL] Venlafaxine HCl [Effexor XR] 150 mg PO HS 10/15/17 03/13/19 History traZODone HCL 150 mg PO HS 10/15/17 03/13/19 History Dicyclomine [Bentyl] 20 mg PO TID 01/10/19 03/13/19 History Nitroglycerin Sl Tabs [Nitrostat] 0.4 mg SUBLINGUAL Q5M PRN 01/10/19 03/13/19 History Divalproex [Depakote] 500 mg PO BID tablet. 01/27/19 03/13/19 Rx metFORMIN HCL [Glucophage] 500 mg PO PC-SUPPER #0 02/19/19 03/13/19 Rx Acyclovir [Zovirax] 400 mg PO BID #28 tab 03/10/19 03/13/19 Rx Fluconazole [Diflucan] 100 mg PO DAILY #14 tablet 03/10/19 03/13/19 Rx Levofloxacin [Levaquin] 500 mg PO DAILY #14 tab 03/10/19 03/13/19 Rx Allergies Allergy/AdvReac Type Severity Reaction Status Date / Time naproxen [From Naprosyn] Allergy Unknown Rash/Hives Verified 03/13/19 08:23 adhesive tape Allergy Rash/Hives Verified 03/13/19 08:23 ibuprofen Allergy Itching Verified 03/13/19 08:23 mold Allergy Unknown Verified 03/13/19 08:23 carrot AdvReac Dyspnea Verified 03/13/19 08:23 chocolate flavor AdvReac Dyspnea Verified 03/13/19 08:23 grass pollen-perennial rye, AdvReac Dyspnea Verified 03/13/19 08:23 standar Physical Exam Vitals: Vital Signs Temp Pulse Pulse Resp BP BP Pulse Ox 03/13/19 20:12 101.3 F H 97 18 119/66 97 03/13/19 19:42 99.9 F H 93 16 124/66 97 03/13/19 19:32 100.7 F H 92 17 132/65 98 03/13/19 16:00 100.5 F H 80 14 109/66 97 03/13/19 12:00 98.1 F 89 9 L 103/49 97 03/13/19 10:00 92 19 103/49 96 03/13/19 09:06 98.5 F 87 16 103/49 98 03/13/19 08:00 98.7 F 82 101 H 17 105/52 103/49 98 03/13/19 06:33 98.7 F 87 18 105/52 99 03/13/19 06:03 98.7 F 81 15 107/49 95 03/13/19 06:00 82 16 111/52 96 03/13/19 05:53 98.7 F 84 18 111/52 03/13/19 04:00 99.3 F 85 86 11 L 119/63 116/40 95 03/13/19 03:31 100.8 F H 104 H 18 127/68 98 03/13/19 03:00 97 18 126/63 98 03/13/19 02:00 100.8 F H 91 14 121/63 99 03/13/19 01:12 100.1 F H 90 18 121/63 100 03/13/19 00:04 100.4 F H 97 18 113/65 98 03/13/19 00:02 24 Intake and Output 03/13/19 03/13/19 03/13/19 06:59 14:59 22:59 Intake Total 150 1220 300 Output Total 200 1200 400 Balance -50 20 -100 Intake: IV 150 600 300 Sodium Chloride 0.9% 1, 150 600 300 000 ml @ 75 mls/hr IV . [id number] [facility] Rx#:[id number] Blood Product 0 620 0 Rc Irr As1 Unit 0 310 [id number] Rc Irr As1 Unit 0 [id number] Output: Urine 200 1200 400 Other: Weight 85.3 kg HEENT: Anicteric conjunctiva are pink and moist nasal mucosa grossly intact without significant lesions, there is no thrush. Neck: The neck is supple there are a few lymph nodes palpable in the neck but no thyromegaly Lungs: Good bilateral air entry without significant crackles or wheezing. There is no significant bronchial sounds. There is no egophony or dullness. Heart: Regular rate and rhythm with an audible S1-S2, no S3 no S4. There is no significant murmur click or rub, PMI was nondisplaced. Abdomen: Positive bowel sounds soft mild tenderness due to the hepatosplenomegaly, no other abdominal mass noted there was no guarding or rebound. Extremities: The upper extremities have excellent pulses they are symmetric, no significant petechiae or telangiectasia. No splinter hemorrhages were noted. The lower extremities are free from significant edema. The peripheral pulses were 2+ and symmetric. There are not large axillary or inguinal lymph nodes palpable at this time Neuro: Awake alert oriented to person place and time. There are no acute new gross focal sensory motor deficits. Results CBC & Chem 7: 03/13/19 16:40 03/13/19 16:40 Labs: Abnormal Lab Results - Last 24 Hours (Table) 03/13/19 03/13/19 03/13/19 Range/Units 01:10 01:10 01:10 WBC 0.1 L* (3.8-10.6) k/uL RBC 2.43 L (4.30-5.90) m/uL Hgb 6.1 L* (13.0-17.5) gm/dL Hct 19.6 L* (39.0-53.0) % RDW 19.6 H (11.5-15.5) % Plt Count 12 L* D (150-450) k/uL Neutrophils # (1.3-7.7) k/uL Lymphocytes # (1.0-4.8) k/uL Sodium (137-145) mmol/L BUN 21 H (9-20) mg/dL Creatinine (0.66-1.25) mg/dL Glucose 109 H (74-99) mg/dL POC Glucose (mg/dL) (75-99) mg/dL AST 14 L (17-59) U/L ALT 19 L (21-72) U/L Crossmatch See Detail 03/13/19 03/13/19 03/13/19 Range/Units 03:43 12:24 16:40 WBC (3.8-10.6) k/uL RBC (4.30-5.90) m/uL Hgb (13.0-17.5) gm/dL Hct (39.0-53.0) % RDW (11.5-15.5) % Plt Count (150-450) k/uL Neutrophils # (1.3-7.7) k/uL Lymphocytes # (1.0-4.8) k/uL Sodium 135 L (137-145) mmol/L BUN (9-20) mg/dL Creatinine 0.63 L (0.66-1.25) mg/dL Glucose 108 H (74-99) mg/dL POC Glucose (mg/dL) 134 H 119 H (75-99) mg/dL AST (17-59) U/L ALT (21-72) U/L Crossmatch 03/13/19 03/13/19 Range/Units 16:40 17:36 WBC 0.2 L* (3.8-10.6) k/uL RBC 2.39 L (4.30-5.90) m/uL Hgb 6.9 L* (13.0-17.5) gm/dL Hct 19.4 L* (39.0-53.0) % RDW 18.7 H (11.5-15.5) % Plt Count 9 L* (150-450) k/uL Neutrophils # 0.0 L* (1.3-7.7) k/uL Lymphocytes # 0.1 L (1.0-4.8) k/uL Sodium (137-145) mmol/L BUN (9-20) mg/dL Creatinine (0.66-1.25) mg/dL Glucose (74-99) mg/dL POC Glucose (mg/dL) 141 H (75-99) mg/dL AST (17-59) U/L ALT (21-72) U/L Crossmatch Laboratory Results WBC 0.2 k/uL (3.8-10.6) L* 03/13/19 16:40 RBC 2.39 m/uL (4.30-5.90) L 03/13/19 16:40 Hgb 6.9 gm/dL (13.0-17.5) L* 03/13/19 16:40 Hct 19.4 % (39.0-53.0) L* 03/13/19 16:40 MCV 80.9 fL (80.0-100.0) 03/13/19 16:40 MCH 28.7 pg (25.0-35.0) 03/13/19 16:40 MCHC 35.5 g/dL (31.0-37.0) 03/13/19 16:40 RDW 18.7 % (11.5-15.5) H 03/13/19 16:40 Plt Count 9 k/uL (150-450) L* 03/13/19 16:40 Neutrophils % 17 % 03/13/19 16:40 Lymphocytes % 72 % 03/13/19 16:40 Monocytes % 4 % 03/13/19 16:40 Eosinophils % 3 % 03/13/19 16:40 Basophils % 2 % 03/13/19 16:40 Neutrophils # 0.0 k/uL (1.3-7.7) L* 03/13/19 16:40 Lymphocytes # 0.1 k/uL (1.0-4.8) L 03/13/19 16:40 Monocytes # 0.0 k/uL (0-1.0) 03/13/19 16:40 Eosinophils # 0.0 k/uL (0-0.7) 03/13/19 16:40 Basophils # 0.0 k/uL (0-0.2) 03/13/19 16:40 Differential Comment 03/13/19 01:10 Manual Slide Review Performed 03/13/19 16:40 Hypochromasia Slight 03/13/19 16:40 Poikilocytosis Moderate 03/13/19 16:40 Poikilocytosis (manual Present 03/13/19 16:40 Anisocytosis Slight 03/13/19 16:40 Microcytosis Slight 03/13/19 16:40 PT 10.8 sec (9.0-12.0) 03/13/19 01:10 INR 1.0 (<1.2) 03/13/19 01:10 APTT 28.1 sec (22.0-30.0) 03/13/19 01:10 Sodium 135 mmol/L (137-145) L 03/13/19 16:40 Potassium 4.2 mmol/L (3.5-5.1) 03/13/19 16:40 Chloride 105 mmol/L (98-107) 03/13/19 16:40 Carbon Dioxide 23 mmol/L (22-30) 03/13/19 16:40 Anion Gap 7 mmol/L 03/13/19 16:40 BUN 14 mg/dL (9-20) 03/13/19 16:40 Creatinine 0.63 mg/dL (0.66-1.25) L 03/13/19 16:40 Est GFR (CKD-EPI)AfAm >90 (>60 ml/min/1.73 sqM) 03/13/19 16:40 Est GFR (CKD-EPI)NonAf >90 (>60 ml/min/1.73 sqM) 03/13/19 16:40 Glucose 108 mg/dL (74-99) H 03/13/19 16:40 POC Glucose (mg/dL) 141 mg/dL (75-99) H 03/13/19 17:36 POC Glu Fundraising Manager ID Clarissa Shipman 03/13/19 17:36 Plasma Lactic Acid Cory 1.6 mmol/L (0.7-2.0) 03/13/19 01:10 Calcium 8.7 mg/dL (8.4-10.2) 03/13/19 16:40 Total Bilirubin 1.0 mg/dL (0.2-1.3) 03/13/19 01:10 AST 14 U/L (17-59) L 03/13/19 01:10 ALT 19 U/L (21-72) L 03/13/19 01:10 Alkaline Phosphatase 48 U/L (38-126) 03/13/19 01:10 Troponin I <0.012 ng/mL (0.000-0.034) 03/13/19 01:10 Total Protein 6.5 g/dL (6.3-8.2) 03/13/19 01:10 Albumin 3.8 g/dL (3.5-5.0) 03/13/19 01:10 Urine Color Yellow 03/13/19 09:15 Urine Appearance Clear (Clear) 03/13/19 09:15 Urine pH 6.0 (5.0-8.0) 03/13/19 09:15 Ur Specific [place] 1.020 (1.001-1.035) 03/13/19 09:15 Urine Protein Negative (Negative) 03/13/19 09:15 Urine Glucose (UA) Negative (Negative) 03/13/19 09:15 Urine Ketones Negative (Negative) 03/13/19 09:15 Urine Blood Negative (Negative) 03/13/19 09:15 Urine Nitrite Negative (Negative) 03/13/19 09:15 Urine Bilirubin Negative (Negative) 03/13/19 09:15 Urine Urobilinogen <2.0 mg/dL (<2.0) 03/13/19 09:15 Ur Leukocyte Esterase Negative (Negative) 03/13/19 09:15 C. difficile (EIA) Intrp Negative (Negative) 03/13/19 20:27 Blood Type O Positive 03/13/19 01:10 Blood Type Recheck O Pos 03/13/19 01:10 Bld Type Recheck Status No 03/13/19 01:10 Antibody Screen NEGATIVE 03/13/19 01:10 Crossmatch See Detail 03/13/19 01:10 Spec Expiration Date 03/16/2019230903/13/19 01:10 Assessment and Plan Assessment: 48-year-old male who has a several month history of feeling poorly with progressive anemia and evidence of pancytopenia who underwent bone marrow aspiration that confirmed with the acute erythroid leukemia, the patient is now status post his first cycle of chemotherapy of the 7+3 regimen. Presented to Hospital weakness, syncope fever and pancytopenia.Blood cultures have been requested and while cultures are process antibiotic therapy with vancomycin and cefepime have been requested given his current status. He is also receiving acyclovir given his leukemia status. The patient does not appear to have pneumonia or urinary tract infection. Was concerns for the possibility of colitis, however stool is soft but not liquid and is being monitored for further change. Receiving transfusions for supportive therapy. 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
[2019-03-13] MEDS: VENLAFAXINE HCL ER 150 MG CAP PO SCH (21:14)
[2019-03-13] MEDS: traZODone HCL 50 MG TAB PO SCH (21:14)
[2019-03-13] MEDS: ACYCLOVIR 200 MG CAP PO SCH (21:14)
[2019-03-13 21:37] LABS: Glucose,Whole Blood 104 mg/dL (75-99)
[2019-03-13] MEDS: CEFEPIME 2 GM in SODIUM CHLORIDE 0.9% 100 ML IVPB SCH (22:17)
[2019-03-14 06:15] LABS: ALT 21 U/L (21-72); AST 13 U/L (17-59); African American GFR (CKD) >90 (>60 ml/min/1.73 sqM); Albumin 3.3 g/dL (3.5-5.0); Alkaline Phosphatase 44 U/L (38-126); Anion Gap 9 mmol/L; Blood Urea Nitrogen 13 mg/dL (9-20); Calcium 8.7 mg/dL (8.4-10.2); Carbon Dioxide 22 mmol/L (22-30); Chloride 105 mmol/L (98-107); Glucose 109 mg/dL (74-99); Potassium 3.8 mmol/L (3.5-5.1); Sodium 136 mmol/L (137-145); Total Protein 6.2 g/dL (6.3-8.2)
[2019-03-14 06:17] LABS: Anisocytosis Slight; HCT 20.9 % (39.0-53.0); HGB 7.5 gm/dL (13.0-17.5); MCH 29.4 pg (25.0-35.0); MCV 81.6 fL (80.0-100.0); Mean Platelet Volume 5.5; Microcytosis Slight; Poikilocytosis Moderate; RBC 2.56 m/uL (4.30-5.90); RDW 17.6 % (11.5-15.5)
[2019-03-14 06:30] LABS: Platelet Count 9 k/uL (150-450); WBC 0.2 k/uL (3.8-10.6)
[2019-03-14] MEDS: VANCOMYCIN 1,500 MG in SODIUM CHLORIDE 0.9% 250 ML IVPB SCH ×3 (06:46→21:16)
[2019-03-14] MEDS: SALT AND SODA MOUTHWASH 1,000 ML PO SCH ×4 (06:47→21:14)
[2019-03-14] MEDS: SODIUM CHLORIDE 0.9% 1,000 ML IV SCH ×2 (06:47→15:42)
[2019-03-14 07:52] LABS: Glucose,Whole Blood 117 mg/dL (75-99)
[2019-03-14] MEDS: FLUTICASONE 110 MCG INHALER INHALATION SCH ×2 (08:48→19:10)
[2019-03-14] MEDS: INSULIN ASPART (NovoLOG) 100 UNIT/ML VIAL SQ SCH ×3 (09:18→21:15)
[2019-03-14] MEDS: ACYCLOVIR 200 MG CAP PO SCH ×2 (09:19→21:14)
[2019-03-14] MEDS: FLUCONAZOLE 100 MG TAB PO SCH (09:19)
[2019-03-14] MEDS: FAMOTIDINE 20 MG TAB PO SCH (09:19)
[2019-03-14] MEDS: DIVALPROEX 500 MG TABLET.DR PO SCH ×2 (09:19→21:15)
[2019-03-14] MEDS: MAG HYDROX/AL HYDROX/SIMETH 30 ML, LIDOCAINE VISCOUS 30 ML, diphenhydrAMINE ELIXIR 75 M... PO SCH ×12 (09:20→22:15)
[2019-03-14] MEDS: CEFEPIME 2 GM in SODIUM CHLORIDE 0.9% 100 ML IVPB SCH ×2 (10:29→22:14)
--- NOTE | 2019-03-14 11:09 | P.PN ---
Subjective Progress Note Date: 03/14/19 This is a 48-year-old male patient who presented with syncope and fever. Patient has been recently diagnosed acute myeloid leukemia and recently went first round of chemotherapy. Patient was discharged from hospital last Sunday and was doing good at home until 3 days ago. Patient reports he has been f eeling weak. Patient reports 2 episodes of falling. Patient does not recall falling wakes up laying on the floor. She reports he presents the ER yesterday afternoon after sustaining a fall received blood product and was discharged home. Patient reports he again had another episode where he woke up on the floor. Additional medical history includes asthma, chest pain, diabetes mellitus, GERD, GI bleed, hyperlipidemia, hypertension, myocardial infections, osteoporosis, sleep apnea, anxiety and depression. Chest x-ray completed showing no acute cardiopulmonary process. Head and cervical spine CT completed showing mild cerebral atrophy. No acute intracranial abnormality. No change compared to yesterday minor spondylytic change cervical spine no fracture seen. EKG completed showing normal his rhythm and normal EKG. WBC low at 0.1 hemoglobin 6.1 and platelets 12. Patient started on vancomycin for elevated temperature. Dr. Valenzuela consulted. Blood and urine cultures ordered. Patient states he has been having loose stools, stool for C. diff ordered. Oncology services also consulted. At this time patient reports he is tired but feeling comfortable. Patient denies chest pain or shortness of breath. Patient denies nausea vomiting or diarrhea. Patient denies any urinary burning or frequency On 03/14/2018 patient is alert and oriented 3. Patient reports he feels much i mproved from yesterday. Patient states he feels less lethargic. Patient still having elevated temps. Patient remains on IV antibiotics Rocephin time in [facility] along with antivirals. Patient received 2 units of PRBCs and platelets. Oncology and infectious disease following. Cultures currently pending. C. diff negative. Patient denies chest pain or shortness breath. Patient denies nausea vomiting or diarrhea. Patient denies any urinary burning or frequency. She denies any open sores in mouth or skin. Objective - Vital Signs Vital signs: Vital Signs Temp 99.4 F 03/14/19 00:00 Pulse 81 03/14/19 06:00 Resp 19 03/14/19 06:00 BP 126/67 03/14/19 06:00 Pulse Ox 94 L 03/14/19 06:00 Intake & Output 03/13/19 03/14/19 03/14/19 18:59 06:59 18:59 Intake Total 1520 2617 Output Total 1600 Balance -80 2617 Weight 85.6 kg Intake: IV 900 1300 Sodium Chloride 0.9% 1, 900 1050 000 ml @ 75 mls/hr IV . [id number] [facility] Rx#:[id number] Vancomycin 1,500 mg In 250 Sodium Chloride 0.9% 250 ml @ 125 mls/hr IVPB ONCE ONE Rx#:[id number] Oral 480 Blood Product 620 837 Platelet Irr Pheresis 2 217 Acda Unit [id number] Rc Irr As1 Unit 310 [id number] Rc Irr As1 Unit 310 [id number] Output: Urine 1600 Other: # Voids 1 # Bowel Movements 1 - Exam Head normocephalic Neck supple Lungs clear to auscultation bilaterally no wheezing or crackles Heart regular rate and rhythm S1-S2, no rub or gallop Abdomen is soft nontender nondistended positive bowel sounds no hepatosplenomegaly Extremities no edema Neuro alert and orientated to 3 - Labs CBC & Chem 7: 03/14/19 05:42 03/14/19 05:42 Labs: Abnormal Lab Results - Last 24 Hours (Table) 03/13/19 03/13/19 03/13/19 Range/Units 01:10 12:24 16:40 WBC (3.8-10.6) k/uL RBC (4.30-5.90) m/uL Hgb (13.0-17.5) gm/dL Hct (39.0-53.0) % RDW (11.5-15.5) % Plt Count (150-450) k/uL Neutrophils # (1.3-7.7) k/uL Lymphocytes # (1.0-4.8) k/uL Sodium 135 L (137-145) mmol/L Creatinine 0.63 L (0.66-1.25) mg/dL Glucose 108 H (74-99) mg/dL POC Glucose (mg/dL) 119 H (75-99) mg/dL AST (17-59) U/L Total Protein (6.3-8.2) g/dL Albumin (3.5-5.0) g/dL Crossmatch See Detail 10/17/19 10/17/19 10/17/19 Range/Units 16:40 17:36 21:36 WBC 0.2 L* (3.8-10.6) k/uL RBC 2.39 L (4.30-5.90) m/uL Hgb 6.9 L* (13.0-17.5) gm/dL Hct 19.4 L* (39.0-53.0) % RDW 18.7 H (11.5-15.5) % Plt Count 9 L* (150-450) k/uL Neutrophils # 0.0 L* (1.3-7.7) k/uL Lymphocytes # 0.1 L (1.0-4.8) k/uL Sodium (137-145) mmol/L Creatinine (0.66-1.25) mg/dL Glucose (74-99) mg/dL POC Glucose (mg/dL) 141 H 104 H (75-99) mg/dL AST (17-59) U/L Total Protein (6.3-8.2) g/dL Albumin (3.5-5.0) g/dL Crossmatch 03/14/19 03/14/19 03/14/19 Range/Units 05:42 05:42 07:51 WBC 0.2 L* (3.8-10.6) k/uL RBC 2.56 L (4.30-5.90) m/uL Hgb 7.5 L (13.0-17.5) gm/dL Hct 20.9 L (39.0-53.0) % RDW 17.6 H (11.5-15.5) % Plt Count 9 L* (150-450) k/uL Neutrophils # (1.3-7.7) k/uL Lymphocytes # (1.0-4.8) k/uL Sodium 136 L (137-145) mmol/L Creatinine 0.63 L (0.66-1.25) mg/dL Glucose 109 H (74-99) mg/dL POC Glucose (mg/dL) 117 H (75-99) mg/dL AST 13 L (17-59) U/L Total Protein 6.2 L (6.3-8.2) g/dL Albumin 3.3 L (3.5-5.0) g/dL Crossmatch Assessment and Plan Assessment: 1. Syncopal episode likely due to fever and pancytopenia post chemotherapy. CT of head and cervical spine completed showing mild cerebral atrophy. No acute intracranial abnormality. No change compared to yesterday. Minor spondylitic changes and cervical spine no fracture seen. On 01/26/2019 prior to chemotherapy 2-D echo completed showing an EF of 55-60% 2. Febrile. Patient started vancomycin. Urine and sputum cultures ordered. Chest x-ray completed showing no acute pulmonary process. Infectious disease is following patient is to be on vancomycin, cefepime and acyclovir febrile does not appear to be from pneumonia or urinary tract infection. Cultures currently pending 3. Diarrhea. C. diff negative. Patient remains on full liquid diet 4. 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 Patient has received 2 units platelets 2 units of PRBC's 5. Acute erythoid leukemia. Patient recently underwent first round of chemotherapy completed on 03/10/2019 6. History of left ureteral calculus 7. History of essential hypertension. Home medications Lopressor resumed with parameters 8. History of diabetes mellitus 2. Metformin on hold sliding scale insulin ordered 9. History of depression 10. History of coronary artery disease 11. History of obstructive sleep apnea maintained on CPAP 12. History of hyperlipidemia. Maintain on Lipitor and fenofibrate 13. History of bipolar home was present DVT prophylaxis SCDs due to pancytopenia. GI prophylaxis Pepcid I performed an examination of the patient and discussed their management with the Nurse Practitioner. I have reviewed the Nurse Practitioner's notes and agree with the documented findings and plan of care
[2019-03-14 11:50] LABS: Glucose,Whole Blood 105 mg/dL (75-99)
[2019-03-14] MEDS ORDERED: VANCOMYCIN TROUGH DUE 1 EACH MISC MISCELLANE ONE (12:00)
[2019-03-14 14:12] VITALS: BMI 27.8
[2019-03-14 16:48] LABS: Glucose,Whole Blood 117 mg/dL (75-99)
[2019-03-14] MEDS: ATORVASTATIN 80 MG TAB PO SCH (17:47)
[2019-03-14] MEDS: FENOFIBRATE 160 MG TAB PO SCH (17:48)
--- NOTE | 2019-03-14 18:35 | P.PN ---
Subjective Progress Note Date: 03/14/19 Principal diagnosis: AML Afebrile overnight, VSS Alert and oriented x3. Platelets 9K this am and one unit SDP - Irradiated received. Objective - Vital Signs Vital signs: Vital Signs Temp 99.4 F 03/14/19 00:00 Pulse 81 03/14/19 06:00 Resp 19 03/14/19 06:00 BP 126/67 03/14/19 06:00 Pulse Ox 94 L 03/14/19 06:00 Intake & Output 03/13/19 03/14/19 03/14/19 18:59 06:59 18:59 Intake Total 1520 2617 Output Total 1600 Balance -80 2617 Weight 85.6 kg Intake: IV 900 1300 Sodium Chloride 0.9% 1, 900 1050 000 ml @ 75 mls/hr IV . [id number] [facility] Rx#:[id number] Vancomycin 1,500 mg In 250 Sodium Chloride 0.9% 250 ml @ 125 mls/hr IVPB ONCE ONE Rx#:[id number] Oral 480 Blood Product 620 837 Platelet Irr Pheresis 2 217 Acda Unit [id number] Rc Irr As1 Unit 310 [id number] Rc Irr As1 Unit 310 [id number] Output: Urine 1600 Other: # Voids 1 # Bowel Movements 1 - Exam - Constitutional General appearance: average body habitus, cooperative, no acute distress - EENT dry mouth Eyes: anicteric sclerae, EOMI, poor dentition ENT: hearing grossly normal - Neck Neck: no lymphadenopathy - Respiratory Respiratory: bilateral: CTA - Cardiovascular Rhythm: regular Heart sounds: normal: S1, S2 Abnormal Heart Sounds: no systolic murmur, no diastolic murmur, no rub, no S3 Gallop, no S4 Gallop, no click, no other leg Peripheral Edema: bilateral: None - Gastrointestinal General gastrointestinal: no absent bowel sounds, no decreased bowel sounds, no distended, no hepatomegaly, hyperactive bowel sounds, no normal bowel sounds, no organomegaly, no rigid, no scaphoid, soft, no splenomegaly, tenderness, no umbilical hernia, no ventral hernia Localized gastrointestinal: tender: RUQ, RLQ - Integumentary Integumentary: normal turgor, pale - Neurologic Neurologic: CNII-XII intact - Musculoskeletal Musculoskeletal: generalized weakness, strength equal bilaterally - Psychiatric Psychiatric: A&O x's 3, appropriate affect, intact judgment & insight - Labs CBC & Chem 7: 03/14/19 05:42 03/14/19 05:42 Labs: Abnormal Lab Results - Last 24 Hours (Table) 03/13/19 03/13/19 03/13/19 Range/Units 01:10 12:24 16:40 WBC (3.8-10.6) k/uL RBC (4.30-5.90) m/uL Hgb (13.0-17.5) gm/dL Hct (39.0-53.0) % RDW (11.5-15.5) % Plt Count (150-450) k/uL Neutrophils # (1.3-7.7) k/uL Lymphocytes # (1.0-4.8) k/uL Sodium 135 L (137-145) mmol/L Creatinine 0.63 L (0.66-1.25) mg/dL Glucose 108 H (74-99) mg/dL POC Glucose (mg/dL) 119 H (75-99) mg/dL AST (17-59) U/L Total Protein (6.3-8.2) g/dL Albumin (3.5-5.0) g/dL Crossmatch See Detail 03/13/19 03/13/19 03/13/19 Range/Units 16:40 17:36 21:36 WBC 0.2 L* (3.8-10.6) k/uL RBC 2.39 L (4.30-5.90) m/uL Hgb 6.9 L* (13.0-17.5) gm/dL Hct 19.4 L* (39.0-53.0) % RDW 18.7 H (11.5-15.5) % Plt Count 9 L* (150-450) k/uL Neutrophils # 0.0 L* (1.3-7.7) k/uL Lymphocytes # 0.1 L (1.0-4.8) k/uL Sodium (137-145) mmol/L Creatinine (0.66-1.25) mg/dL Glucose (74-99) mg/dL POC Glucose (mg/dL) 141 H 104 H (75-99) mg/dL AST (17-59) U/L Total Protein (6.3-8.2) g/dL Albumin (3.5-5.0) g/dL Crossmatch 03/14/19 03/14/19 03/14/19 Range/Units 05:42 05:42 07:51 WBC 0.2 L* (3.8-10.6) k/uL RBC 2.56 L (4.30-5.90) m/uL Hgb 7.5 L (13.0-17.5) gm/dL Hct 20.9 L (39.0-53.0) % RDW 17.6 H (11.5-15.5) % Plt Count 9 L* (150-450) k/uL Neutrophils # (1.3-7.7) k/uL Lymphocytes # (1.0-4.8) k/uL Sodium 136 L (137-145) mmol/L Creatinine 0.63 L (0.66-1.25) mg/dL Glucose 109 H (74-99) mg/dL POC Glucose (mg/dL) 117 H (75-99) mg/dL AST 13 L (17-59) U/L Total Protein 6.2 L (6.3-8.2) g/dL Albumin 3.3 L (3.5-5.0) g/dL Crossmatch 03/14/19 Range/Units 11:49 WBC (3.8-10.6) k/uL RBC (4.30-5.90) m/uL Hgb (13.0-17.5) gm/dL Hct (39.0-53.0) % RDW (11.5-15.5) % Plt Count (150-450) k/uL Neutrophils # (1.3-7.7) k/uL Lymphocytes # (1.0-4.8) k/uL Sodium (137-145) mmol/L Creatinine (0.66-1.25) mg/dL Glucose (74-99) mg/dL POC Glucose (mg/dL) 105 H (75-99) mg/dL AST (17-59) U/L Total Protein (6.3-8.2) g/dL Albumin (3.5-5.0) g/dL Crossmatch Assessment and Plan Plan: Assessment and Plan Fever - T Max in 24 Hours 101.3, improved this am T-Max 99.8 - Broad SPectrum Antibiotics managed per ID - C-Diff Neg - Toro Cultures Pending - No gcsf as patient is not in a confirmed remission Pancytopenia: - Chemotherapy Induced and Acute Leukemia Induced - PRN Transfusion Hemoglobin less than 7, Platelets les than 10K, Only with Irradiated blood products please - Daily CBC and monitor for infection and bleeding Acute Leukemia - Patient is status post induction 7+3 chemotherapy regimen, completed earlier this week. - Patient will be scheduled for bone marrow biopsy and aspirate within the next 2 weeks to evaluate for remission. Dizziness: - Multifactoral, Dehydration, Anemia, possible early sepsis. - Fall Precautions, Hydration po and IV Diarrhea - C-Diff Negative - May initiate Questran and PRN Antidiarrheals Eileen Zaman [employer] TITLE CLERK Physician Attest: I have assessed and completed the full history and physical as well the above assessment and plan, Agree with above dictation, dictated as a scribe
[2019-03-14] MEDS ORDERED: LOPERAMIDE 2 MG CAP PO PRN (18:48)
[2019-03-14 21:07] LABS: Glucose,Whole Blood 132 mg/dL (75-99)
--- NOTE | 2019-03-14 21:14 | P.PN ---
Subjective Progress Note Date: 03/14/19 48-year-old male who has a history of anemia that was of unclear etiology. 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 From March 03 the he was admitted to hospital for his induction ch emotherapy of the 7+3 regimens. He did seem to tolerate the regimen well and was following in the outpatient clinic because certainly have dizziness and having falls. Because he was feeling poorly he was further assessed and platelets were less than 10,000 and significant anemia was noted. The patient also had a temperature to 100.8 and calcium was admitted to hospital. He is receiving supportive transfusions of packed red cells and platelets and because of the fever and leukopenia the infectious diseases consultation was requested. The barely had some soft stool but not megan diarrhea per the nursing staff at this time. The patient is in the ICU but is a cardiac care overflow patient at this time. He does not have hypotension or evidence of septic shock. March 14 2019 the patient is feeling somewhat better today. He is awaiting platelets of the thinness he denies further fever or chills. Still very weak. He has generalized malaise. He is denying other new acute symptoms. He is able to eat without nausea or emesis. His loose stool has resolved. Objective - Vital Signs Vital signs: Vital Signs Temp 100.0 F H 03/14/19 20:57 Pulse 88 03/14/19 20:57 Resp 17 03/14/19 20:57 BP 121/61 03/14/19 20:57 Pulse Ox 95 03/14/19 20:57 Intake & Output 03/14/19 03/14/19 03/15/19 06:59 18:59 06:59 Intake Total 2617 75 Output Total 300 Balance 2617 -225 Weight 85.6 kg 85.6 kg Intake: IV 1300 75 Sodium Chloride 0.9% 1, 1050 75 000 ml @ 75 mls/hr IV . [id number] [facility] LICENSE OF [facility] Rx#:[id number] Vancomycin 1,500 mg In 250 Sodium Chloride 0.9% 250 ml @ 125 mls/hr IVPB ONCE ONE Rx#:[id number] Oral 480 Blood Product 837 0 Platelet Irr Pheresis 2 217 Acda Unit [id number] Platelet Irr Pheresis 0 Acda1 Unit [id number] Rc Irr As1 Unit 310 [id number] Output: Urine 300 Other: # Voids 1 2 # Bowel Movements 1 1 1 - Exam HEENT: Anicteric conjunctiva are pink and moist nasal mucosa grossly intact with out significant lesions, there is no thrush. Neck: The neck is supple there are a few lymph nodes palpable in the neck but no thyromegaly Lungs: Good bilateral air entry without significant crackles or wheezing. There is no significant bronchial sounds. There is no egophony or dullness. Heart: Regular rate and rhythm with an audible S1-S2, no S3 no S4. There is no significant murmur click or rub, PMI was nondisplaced. Abdomen: Positive bowel sounds soft mild tenderness due to the hepatospleno megaly, no other abdominal mass noted there was no guarding or rebound. Extremities: The upper extremities have excellent pulses they are symmetric, no significant petechiae or telangiectasia. No splinter hemorrhages were noted. The lower extremities are free from significant edema. The peripheral pulses were 2+ and symmetric. There are not large axillary or inguinal lymph nodes palpable at this time Neuro: Awake alert oriented to person place and time. There are no acute new gross focal sensory motor deficits. - Labs CBC & Chem 7: 03/14/19 05:42 03/14/19 05:42 Labs: Abnormal Lab Results - Last 24 Hours (Table) 03/13/19 03/13/19 03/14/19 Range/Units 01:10 21:36 05:42 WBC 0.2 L* (3.8-10.6) k/uL RBC 2.56 L (4.30-5.90) m/uL Hgb 7.5 L (13.0-17.5) gm/dL Hct 20.9 L (39.0-53.0) % RDW 17.6 H (11.5-15.5) % Plt Count 9 L* (150-450) k/uL Sodium (137-145) mmol/L Creatinine (0.66-1.25) mg/dL Glucose (74-99) mg/dL POC Glucose (mg/dL) 104 H (75-99) mg/dL AST (17-59) U/L Total Protein (6.3-8.2) g/dL Albumin (3.5-5.0) g/dL Crossmatch See Detail 03/14/19 03/14/19 03/14/19 Range/Units 05:42 07:51 11:49 WBC (3.8-10.6) k/uL RBC (4.30-5.90) m/uL Hgb (13.0-17.5) gm/dL Hct (39.0-53.0) % RDW (11.5-15.5) % Plt Count (150-450) k/uL Sodium 136 L (137-145) mmol/L Creatinine 0.63 L (0.66-1.25) mg/dL Glucose 109 H (74-99) mg/dL POC Glucose (mg/dL) 117 H 105 H (75-99) mg/dL AST 13 L (17-59) U/L Total Protein 6.2 L (6.3-8.2) g/dL Albumin 3.3 L (3.5-5.0) g/dL Crossmatch 03/14/19 03/14/19 Range/Units 16:47 20:54 WBC (3.8-10.6) k/uL RBC (4.30-5.90) m/uL Hgb (13.0-17.5) gm/dL Hct (39.0-53.0) % RDW (11.5-15.5) % Plt Count (150-450) k/uL Sodium (137-145) mmol/L Creatinine (0.66-1.25) mg/dL Glucose (74-99) mg/dL POC Glucose (mg/dL) 117 H 132 H (75-99) mg/dL AST (17-59) U/L Total Protein (6.3-8.2) g/dL Albumin (3.5-5.0) g/dL Crossmatch Laboratory Results WBC 0.2 k/uL (3.8-10.6) L* 03/14/19 05:42 RBC 2.56 m/uL (4.30-5.90) L 03/14/19 05:42 Hgb 7.5 gm/dL (13.0-17.5) L 03/14/19 05:42 Hct 20.9 % (39.0-53.0) L 03/14/19 05:42 MCV 81.6 fL (80.0-100.0) 03/14/19 05:42 MCH 29.4 pg (25.0-35.0) 03/14/19 05:42 MCHC 36.0 g/dL (31.0-37.0) 03/14/19 05:42 RDW 17.6 % (11.5-15.5) H 03/14/19 05:42 Plt Count 9 k/uL (150-450) L* 03/14/19 05:42 Neutrophils % 17 % 03/13/19 16:40 Lymphocytes % 72 % 03/13/19 16:40 Monocytes % 4 % 03/13/19 16:40 Eosinophils % 3 % 03/13/19 16:40 Basophils % 2 % 03/13/19 16:40 Neutrophils # 0.0 k/uL (1.3-7.7) L* 03/13/19 16:40 Lymphocytes # 0.1 k/uL (1.0-4.8) L 03/13/19 16:40 Monocytes # 0.0 k/uL (0-1.0) 03/13/19 16:40 Eosinophils # 0.0 k/uL (0-0.7) 03/13/19 16:40 Basophils # 0.0 k/uL (0-0.2) 03/13/19 16:40 Differential Comment 03/14/19 05:42 Manual Slide Review Performed 03/14/19 05:42 Hypochromasia Slight 03/13/19 16:40 Poikilocytosis Moderate 03/14/19 05:42 Poikilocytosis (manual Present 03/13/19 16:40 Anisocytosis Slight 03/14/19 05:42 Microcytosis Slight 03/14/19 05:42 PT 10.8 sec (9.0-12.0) 03/13/19 01:10 INR 1.0 (<1.2) 03/13/19 01:10 APTT 28.1 sec (22.0-30.0) 03/13/19 01:10 Sodium 136 mmol/L (137-145) L 03/14/19 05:42 Potassium 3.8 mmol/L (3.5-5.1) 03/14/19 05:42 Chloride 105 mmol/L (98-107) 03/14/19 05:42 Carbon Dioxide 22 mmol/L (22-30) 03/14/19 05:42 Anion Gap 9 mmol/L 03/14/19 05:42 BUN 13 mg/dL (9-20) 03/14/19 05:42 Creatinine 0.63 mg/dL (0.66-1.25) L 03/14/19 05:42 Est GFR (CKD-EPI)AfAm >90 (>60 ml/min/1.73 sqM) 03/14/19 05:42 Est GFR (CKD-EPI)NonAf >90 (>60 ml/min/1.73 sqM) 03/14/19 05:42 Glucose 109 mg/dL (74-99) H 03/14/19 05:42 POC Glucose (mg/dL) 132 mg/dL (75-99) H 03/14/19 20:54 POC Glu [employer] ID Melly Damon 03/14/19 20:54 Plasma Lactic Acid Cory 1.6 mmol/L (0.7-2.0) 03/13/19 01:10 Calcium 8.7 mg/dL (8.4-10.2) 03/14/19 05:42 Total Bilirubin 1.0 mg/dL (0.2-1.3) 03/14/19 05:42 AST 13 U/L (17-59) L 03/14/19 05:42 ALT 21 U/L (21-72) 03/14/19 05:42 Alkaline Phosphatase 44 U/L (38-126) 03/14/19 05:42 Troponin I <0.012 ng/mL (0.000-0.034) 03/13/19 01:10 Total Protein 6.2 g/dL (6.3-8.2) L 03/14/19 05:42 Albumin 3.3 g/dL (3.5-5.0) L 03/14/19 05:42 Urine Color Yellow 03/13/19 09:15 Urine Appearance Clear (Clear) 03/13/19 09:15 Urine pH 6.0 (5.0-8.0) 03/13/19 09:15 Ur Specific Secretary 1.020 (1.001-1.035) 03/13/19 09:15 Urine Protein Negative (Negative) 03/13/19 09:15 Urine Glucose (UA) Negative (Negative) 03/13/19 09:15 Urine Ketones Negative (Negative) 03/13/19 09:15 Urine Blood Negative (Negative) 03/13/19 09:15 Urine Nitrite Negative (Negative) 03/13/19 09:15 Urine Bilirubin Negative (Negative) 03/13/19 09:15 Urine Urobilinogen <2.0 mg/dL (<2.0) 03/13/19 09:15 Ur Leukocyte Esterase Negative (Negative) 03/13/19 09:15 Vancomycin Trough 10.4 ug/mL 03/14/19 11:56 C. difficile (EIA) Intrp Negative (Negative) 03/13/19 20:27 Blood Type O Positive 03/13/19 01:10 Blood Type Recheck O Pos 03/13/19 01:10 Bld Type Recheck Status No 03/13/19 01:10 Antibody Screen NEGATIVE 03/13/19 01:10 Crossmatch See Detail 03/13/19 01:10 Transfuse Platelets 03/13/19 03/13/19 19:15 Spec Expiration Date 03/16/2019230903/13/19 01:10 Assessment and Plan Assessment: 48-year-old male who has a several month history of feeling poorly with progressive anemia and evidence of pancytopenia who underwent bone marrow aspiration that confirmed with the acute erythroid leukemia, the patient is now status post his first cycle of chemotherapy of the 7+3 regimen. Presented to Hospital weakness, syncope fever and pancytopenia.Blood cultures have been requested and while cultures are process antibiotic therapy with vancomycin and cefepime have been requested given his current status. He is also receiving acyclovir given his leukemia status. The patient does not appear to have pneumonia or urinary tract infection. Was concerns for the possibility of colitis, however stool is soft but not liquid and is being monitored for further change. Receiving transfusions for supportive therapy. 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 No further diarrhea. He is tolerating the current antibiotic therapy with vancomycin and cefepime well. If his blood cultures remain negative we will de-escalate therapy and remove vancomycin. The care is discussed with the care team, the patient has no proof of remission from his erythroid leukemia and constantly is not a candidate for growth factor therapy. They will continue with transfusion therapy as indicated from oncology. (1) Fever Current Visit: Yes Status: Acute Priority: High Code(s): R50.9 - FEVER, UNSPECIFIED SNOMED Code(s): 974038818 (2) Pancytopenia Current Visit: Yes Status: Acute Priority: High Code(s): D61.818 - OTHER PANCYTOPENIA SNOMED Code(s): 255468469 (3) Syncope Current Visit: Yes Status: Acute Code(s): R55 - SYNCOPE AND COLLAPSE SNOMED Code(s): 739097676 (4) Acute erythroid leukemia Current Visit: No Status: Acute Priority: High Code(s): C94.00 - ACUTE ERYTHROID LEUKEMIA, NOT HAVING ACHIEVED REMISSION SNOMED Code(s): 46971235
[2019-03-14] MEDS: MONTELUKAST 10 MG TAB PO SCH (21:16)
[2019-03-14] MEDS: traZODone HCL 50 MG TAB PO SCH (21:16)
[2019-03-14] MEDS: METOPROLOL SUCCINATE (ER) 25 MG TAB.ER.24H PO SCH (21:16)
[2019-03-14] MEDS: VENLAFAXINE HCL ER 150 MG CAP PO SCH (21:17)
[2019-03-15] MEDS: SALT AND SODA MOUTHWASH 1,000 ML PO SCH ×5 (00:27→19:59)
[2019-03-15] MEDS: VANCOMYCIN 1,500 MG in SODIUM CHLORIDE 0.9% 250 ML IVPB SCH ×3 (05:16→20:01)
[2019-03-15 07:13] LABS: Glucose,Whole Blood 100 mg/dL (75-99)
[2019-03-15] MEDS: INSULIN ASPART (NovoLOG) 100 UNIT/ML VIAL SQ SCH ×4 (07:34→20:58)
[2019-03-15 08:11] LABS: Anisocytosis Slight; MCH 28.8 pg (25.0-35.0); MCHC 34.5 g/dL (31.0-37.0); MCV 83.4 fL (80.0-100.0); Mean Platelet Volume 6.3; Microcytosis Slight; Poikilocytosis Slight; RBC 2.37 m/uL (4.30-5.90); RDW 18.1 % (11.5-15.5)
[2019-03-15 08:31] LABS: ALT 41 U/L (21-72); AST 11 U/L (17-59); African American GFR (CKD) >90 (>60 ml/min/1.73 sqM); Albumin 3.1 g/dL (3.5-5.0); Alkaline Phosphatase 45 U/L (38-126); Anion Gap 8 mmol/L; Blood Urea Nitrogen 10 mg/dL (9-20); Calcium 8.2 mg/dL (8.4-10.2); Carbon Dioxide 22 mmol/L (22-30); Chloride 107 mmol/L (98-107); Glucose 93 mg/dL (74-99); Potassium 3.5 mmol/L (3.5-5.1); Sodium 137 mmol/L (137-145); Total Bilirubin 0.5 mg/dL (0.2-1.3); Total Protein 5.6 g/dL (6.3-8.2)
[2019-03-15] MEDS: SODIUM CHLORIDE 0.9% 1,000 ML IV SCH (08:33)
[2019-03-15] MEDS: MAG HYDROX/AL HYDROX/SIMETH 30 ML, LIDOCAINE VISCOUS 30 ML, diphenhydrAMINE ELIXIR 75 M... PO SCH ×12 (08:34→20:01)
[2019-03-15] MEDS: FAMOTIDINE 20 MG TAB PO SCH (08:35)
[2019-03-15] MEDS: FLUCONAZOLE 100 MG TAB PO SCH (08:35)
[2019-03-15] MEDS: ACYCLOVIR 200 MG CAP PO SCH ×2 (08:35→20:00)
[2019-03-15] MEDS: FLUTICASONE 110 MCG INHALER INHALATION SCH ×3 (09:34→20:22)
[2019-03-15 09:38] LABS: WBC 0.2 k/uL (3.8-10.6)
[2019-03-15 09:40] LABS: HGB 6.8 gm/dL (13.0-17.5)
[2019-03-15 09:41] LABS: HCT 19.8 % (39.0-53.0)
[2019-03-15 09:42] LABS: Platelet Count 10 k/uL (150-450)
[2019-03-15 10:00] LABS: Tear Drop Cells Present
[2019-03-15 11:10] LABS: Glucose,Whole Blood 102 mg/dL (75-99)
[2019-03-15] MEDS: DIVALPROEX 500 MG TABLET.DR PO SCH ×2 (11:23→20:00)
[2019-03-15] MEDS: CEFEPIME 2 GM in SODIUM CHLORIDE 0.9% 100 ML IVPB SCH ×2 (11:24→22:29)
--- NOTE | 2019-03-15 15:44 | P.PN ---
Subjective Progress Note Date: 03/15/19 This is a 48-year-old male patient who presented with syncope and fever. Patient has been recently diagnosed acute myeloid leukemia and recently went first round of chemotherapy. Patient was discharged from hospital last Sunday and was doing good at home until 3 days ago. Patient reports he has been feeling weak. Patient reports 2 episodes of falling. Patient does not recall falling wakes up laying on the floor. She reports he presents the ER yesterday afternoon after sustaining a fall received blood product and was discharged home. Patient reports he again had another episode where he woke up on the floor. Additional medical history includes asthma, chest pain, diabetes mellitus, GERD, GI bleed, hyperlipidemia, hypertension, myocardial infections, osteoporosis, sleep apnea, anxiety and depression. Chest x-ray completed showing no acute cardiopulmonary process. Head and cervical spine CT completed showing mild cerebral atrophy. No acute intracranial abnormality. No change compared to yesterday minor spondylytic change cervical spine no fracture seen. EKG completed showing normal his rhythm and normal EKG. WBC low at 0.1 hemoglobin 6.1 and platelets 12. Patient started on vancomycin for elevated temperature. Dr. Valenzuela consulted. Blood and urine cultures ordered. Patient states he has been having loose stools, stool for C. diff ordered. Oncology services also consulted. At this time patient reports he is tired but feeling comfortable. Patient denies chest pain or shortness of breath. Patient denies nausea vomiting or diarrhea. Patient denies any urinary burning or frequency On 03/14/2019 patient is alert and oriented 3. Patient reports he feels much improved from yesterday. Patient states he feels less lethargic. Patient still having elevated temps. Patient remains on IV antibiotics Rocephin time in [facility] along with antivirals. Patient received 2 units of PRBCs and platelets. Oncology and infectious disease following. Cultures currently pending. C. diff negative. Patient denies chest pain or shortness breath. Patient denies nausea vomiting or diarrhea. Patient denies any urinary burning or frequency. She denies any open sores in mouth or skin. On 03/15/2019 patient is alert and oriented 3 in no apparent distress, he is complaining of diarrhea otherwise he denies any symptoms at this time there is no fever or chills no headache or dizziness no chest pain no shortness of breath no cough no nausea or vomiting no abdominal pain and no urinary symptoms Objective - Vital Signs Vital signs: Vital Signs Temp 98.3 F 03/15/19 14:24 Pulse 88 03/15/19 14:24 Resp 16 03/15/19 14:24 BP 126/59 03/15/19 14:24 Pulse Ox 100 03/15/19 14:24 Intake & Output 03/14/19 03/15/19 03/15/19 18:59 06:59 18:59 Intake Total 933 0 Balance 933 0 Weight 85.6 kg Intake: IV 375 Sodium Chloride 0.9% 1, 375 000 ml @ 75 mls/hr IV . [id number] [facility] Rx#:[id number] Intake, IV Titration 350 Amount Cefepime 2 gm In Sodium 100 Chloride 0.9% 100 ml @ 200 mls/hr IVPB Q12H [facility] Rx#:[id number] Vancomycin 1,500 mg In 250 Sodium Chloride 0.9% 250 ml @ 125 mls/hr IVPB Q8H [facility] Rx#:[id number] Blood Product 208 0 Platelet Irr Pheresis 208 Acda1 Unit [id number] Rc Irr As1 Unit 0 [id number] Other: # Voids 2 1 3 # Bowel Movements 1 1 1 - Exam Head normocephalic and atraumatic Neck supple no JVD no goiter Lungs clear to auscultation bilaterally no wheezing or crackles Heart regular rate and rhythm S1-S2, no rub or gallop Abdomen is soft nontender nondistended positive bowel sounds no hepatosplenomegaly Extremities no edema no cyanosis or clubbing Neuro alert and orientated to 3 no gross focal neurological deficits - Labs CBC & Chem 7: 03/15/19 07:27 03/15/19 07:27 Labs: Abnormal Lab Results - Last 24 Hours (Table) 03/13/19 03/14/19 03/14/19 Range/Units 01:10 16:47 20:54 WBC (3.8-10.6) k/uL RBC (4.30-5.90) m/uL Hgb (13.0-17.5) gm/dL Hct (39.0-53.0) % RDW (11.5-15.5) % Plt Count (150-450) k/uL Creatinine (0.66-1.25) mg/dL POC Glucose (mg/dL) 117 H 132 H (75-99) mg/dL Calcium (8.4-10.2) mg/dL AST (17-59) U/L Total Protein (6.3-8.2) g/dL Albumin (3.5-5.0) g/dL Crossmatch See Detail 03/15/19 03/15/19 03/15/19 Range/Units 07:11 07:27 07:27 WBC 0.2 L* (3.8-10.6) k/uL RBC 2.37 L (4.30-5.90) m/uL Hgb 6.8 L* (13.0-17.5) gm/dL Hct 19.8 L* (39.0-53.0) % RDW 18.1 H (11.5-15.5) % Plt Count 10 L* (150-450) k/uL Creatinine 0.60 L (0.66-1.25) mg/dL POC Glucose (mg/dL) 100 H (75-99) mg/dL Calcium 8.2 L (8.4-10.2) mg/dL AST 11 L (17-59) U/L Total Protein 5.6 L (6.3-8.2) g/dL Albumin 3.1 L (3.5-5.0) g/dL Crossmatch 03/15/19 Range/Units 11:09 WBC (3.8-10.6) k/uL RBC (4.30-5.90) m/uL Hgb (13.0-17.5) gm/dL Hct (39.0-53.0) % RDW (11.5-15.5) % Plt Count (150-450) k/uL Creatinine (0.66-1.25) mg/dL POC Glucose (mg/dL) 102 H (75-99) mg/dL Calcium (8.4-10.2) mg/dL AST (17-59) U/L Total Protein (6.3-8.2) g/dL Albumin (3.5-5.0) g/dL Crossmatch Assessment and Plan Plan: 1. Syncopal episode likely due to fever and pancytopenia post chemotherapy. CT of head and cervical spine completed showing mild cerebral atrophy. No acute intracranial abnormality. No change compared to yesterday. Minor spondylitic changes and cervical spine no fracture seen. On 01/26/2019 prior to chemotherapy 2-D echo completed showing an EF of 55-60% 2. Febrile. Patient started vancomycin. Urine and sputum cultures ordered. Chest x-ray completed showing no acute pulmonary process. Infectious disease is following patient is to be on vancomycin, cefepime and acyclovir febrile does not appear to be from pneumonia or urinary tract infection. Cultures currently pending 3. Diarrhea. C. diff negative. Patient remains on full liquid diet 4. 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 Patient has received 2 units platelets 2 units of PRBC's 5. Acute erythoid leukemia. Patient recently underwent first round of chemotherapy completed on 03/10/2019 6. History of left ureteral calculus 7. History of essential hypertension. Home medications Lopressor resumed with parameters 8. History of diabetes mellitus 2. Metformin on hold sliding scale insulin ordered 9. History of depression 10. History of coronary artery disease 11. History of obstructive sleep apnea maintained on CPAP 12. History of hyperlipidemia. Maintain on Lipitor and fenofibrate 13. History of bipolar home was present DVT prophylaxis SCDs due to pancytopenia. GI prophylaxis Pepcid
[2019-03-15] MEDS: FENOFIBRATE 160 MG TAB PO SCH (16:31)
[2019-03-15] MEDS: ATORVASTATIN 80 MG TAB PO SCH (16:31)
[2019-03-15 17:02] LABS: Glucose,Whole Blood 121 mg/dL (75-99)
[2019-03-15] MEDS: MONTELUKAST 10 MG TAB PO SCH (19:59)
[2019-03-15] MEDS: traZODone HCL 50 MG TAB PO SCH (19:59)
[2019-03-15] MEDS: METOPROLOL SUCCINATE (ER) 25 MG TAB.ER.24H PO SCH (20:00)
[2019-03-15] MEDS: VENLAFAXINE HCL ER 150 MG CAP PO SCH (20:01)
[2019-03-15 20:12] LABS: Glucose,Whole Blood 120 mg/dL (75-99)
--- NOTE | 2019-03-16 00:35 | P.PN ---
Subjective Progress Note Date: 03/15/19 The patient denies any new complaints overnight. No fever/chills/nausea/vomiting/obvious bleeding. He is having some loose stools about 2-3 times a day. Objective - Vital Signs Vital signs: Vital Signs Temp 98.2 F 03/15/19 19:41 Pulse 91 03/15/19 19:41 Resp 18 03/15/19 19:41 BP 127/80 03/15/19 19:41 Pulse Ox 99 03/15/19 19:41 Intake & Output 03/15/19 03/15/19 03/16/19 06:59 18:59 06:59 Intake Total 933 310 644 Balance 933 310 644 Intake: IV 375 225 Sodium Chloride 0.9% 1, 375 225 000 ml @ 75 mls/hr IV . [id number] [facility] Rx#:[id number] Intake, IV Titration 350 Amount Cefepime 2 gm In Sodium 100 Chloride 0.9% 100 ml @ 200 mls/hr IVPB Q12H [facility] Rx#:[id number] Vancomycin 1,500 mg In 250 Sodium Chloride 0.9% 250 ml @ 125 mls/hr IVPB Q8H [facility] Rx#:[id number] Blood Product 208 310 419 Platelet Irr Pheresis 0 419 Acda Unit [id number] Platelet Irr Pheresis 208 Acda1 Unit [id number] Rc Irr As1 Unit 310 [id number] Other: # Voids 1 3 1 # Bowel Movements 1 1 - Constitutional General appearance: Present: no acute distress - EENT Eyes: Present: EOMI ENT: Present: hearing grossly normal, normal oropharynx - Respiratory Respiratory: bilateral: CTA - Cardiovascular Rhythm: regular Heart sounds: normal: S1, S2 - Gastrointestinal General gastrointestinal: Present: normal bowel sounds, soft - Integumentary Integumentary: Present: normal - Neurologic Neurologic: Present: CNII-XII intact - Musculoskeletal Musculoskeletal: Present: generalized weakness, strength equal bilaterally - Psychiatric Psychiatric: Present: A&O x's 3, appropriate affect - Labs CBC & Chem 7: 03/15/19 07:27 03/15/19 07:27 Labs: Abnormal Lab Results - Last 24 Hours (Table) 03/13/19 03/15/19 03/15/19 Range/Units 01:10 07:11 07:27 WBC 0.2 L* (3.8-10.6) k/uL RBC 2.37 L (4.30-5.90) m/uL Hgb 6.8 L* (13.0-17.5) gm/dL Hct 19.8 L* (39.0-53.0) % RDW 18.1 H (11.5-15.5) % Plt Count 10 L* (150-450) k/uL Creatinine (0.66-1.25) mg/dL POC Glucose (mg/dL) 100 H (75-99) mg/dL Calcium (8.4-10.2) mg/dL AST (17-59) U/L Total Protein (6.3-8.2) g/dL Albumin (3.5-5.0) g/dL Crossmatch See Detail 03/15/19 03/15/19 03/15/19 Range/Units 07:27 11:09 17:00 WBC (3.8-10.6) k/uL RBC (4.30-5.90) m/uL Hgb (13.0-17.5) gm/dL Hct (39.0-53.0) % RDW (11.5-15.5) % Plt Count (150-450) k/uL Creatinine 0.60 L (0.66-1.25) mg/dL POC Glucose (mg/dL) 102 H 121 H (75-99) mg/dL Calcium 8.2 L (8.4-10.2) mg/dL AST 11 L (17-59) U/L Total Protein 5.6 L (6.3-8.2) g/dL Albumin 3.1 L (3.5-5.0) g/dL Crossmatch 03/15/19 Range/Units 20:10 WBC (3.8-10.6) k/uL RBC (4.30-5.90) m/uL Hgb (13.0-17.5) gm/dL Hct (39.0-53.0) % RDW (11.5-15.5) % Plt Count (150-450) k/uL Creatinine (0.66-1.25) mg/dL POC Glucose (mg/dL) 120 H (75-99) mg/dL Calcium (8.4-10.2) mg/dL AST (17-59) U/L Total Protein (6.3-8.2) g/dL Albumin (3.5-5.0) g/dL Crossmatch Assessment and Plan (1) Fever Narrative/Plan: This is not recurred. This probably transfusion related as the patient has no evidence of infection clinically. The patient is currently on vancomycin and cefepime as well as acyclovir. He remains afebrile, he can be switched back to oral prophylactic antibiotics and discharged Current Visit: Yes Status: Acute Priority: High Code(s): R50.9 - FEVER, UNSPECIFIED SNOMED Code(s): 619529499 (2) Pancytopenia Narrative/Plan: Due to chemotherapy effect. Continue monitoring with transfusion as needed to keep hemoglobin above 7 and platelets greater than 10. Patient will receive a unit of PRBC, and platelets for hemoglobin of 6.8 and platelets of 10 respectively Current Visit: Yes Status: Acute Priority: High Code(s): D61.818 - OTHER PANCYTOPENIA SNOMED Code(s): 769687558 (3) Acute erythroid leukemia Narrative/Plan: The patient is status post induction chemotherapy. Awaiting recovery of counts Current Visit: No Status: Acute Priority: High Code(s): C94.00 - ACUTE ERYTHROID LEUKEMIA, NOT HAVING ACHIEVED REMISSION SNOMED Code(s): 61444362
[2019-03-16] MEDS: SALT AND SODA MOUTHWASH 1,000 ML PO SCH ×6 (00:55→23:40)
[2019-03-16] MEDS ORDERED: VANCOMYCIN TROUGH DUE 1 EACH MISC MISCELLANE ONE (04:00)
[2019-03-16] MEDS: VANCOMYCIN 1,500 MG in SODIUM CHLORIDE 0.9% 250 ML IVPB SCH (04:35)
[2019-03-16] MEDS: SODIUM CHLORIDE 0.9% 1,000 ML IV SCH ×2 (04:36→08:31)
[2019-03-16 04:39] LABS: ALT 22 U/L (21-72); AST 12 U/L (17-59); African American GFR (CKD) >90 (>60 ml/min/1.73 sqM); Albumin 3.2 g/dL (3.5-5.0); Alkaline Phosphatase 49 U/L (38-126); Anion Gap 8 mmol/L; Blood Urea Nitrogen 9 mg/dL (9-20); Calcium 8.8 mg/dL (8.4-10.2); Carbon Dioxide 25 mmol/L (22-30); Chloride 106 mmol/L (98-107); Glucose 96 mg/dL (74-99); Potassium 3.8 mmol/L (3.5-5.1); Sodium 139 mmol/L (137-145); Total Bilirubin 0.8 mg/dL (0.2-1.3); Total Protein 5.9 g/dL (6.3-8.2)
[2019-03-16 06:15] LABS: Anisocytosis Slight; HCT 21.8 % (39.0-53.0); HGB 7.5 gm/dL (13.0-17.5); MCH 29.1 pg (25.0-35.0); MCHC 34.5 g/dL (31.0-37.0); MCV 84.1 fL (80.0-100.0); Mean Platelet Volume 6.1; Microcytosis Slight; Poikilocytosis Slight; RDW 16.9 % (11.5-15.5)
[2019-03-16 06:19] LABS: WBC 0.2 k/uL (3.8-10.6)
[2019-03-16 06:21] LABS: Platelet Count 39 k/uL (150-450)
[2019-03-16 06:54] LABS: Glucose,Whole Blood 119 mg/dL (75-99)
[2019-03-16] MEDS: INSULIN ASPART (NovoLOG) 100 UNIT/ML VIAL SQ SCH ×4 (07:19→20:40)
[2019-03-16] MEDS: FAMOTIDINE 20 MG TAB PO SCH (08:32)
[2019-03-16] MEDS: MAG HYDROX/AL HYDROX/SIMETH 30 ML, LIDOCAINE VISCOUS 30 ML, diphenhydrAMINE ELIXIR 75 M... PO SCH ×12 (08:32→20:42)
[2019-03-16] MEDS: DIVALPROEX 500 MG TABLET.DR PO SCH ×2 (08:32→20:41)
[2019-03-16] MEDS: FLUCONAZOLE 100 MG TAB PO SCH (08:32)
[2019-03-16] MEDS: ACYCLOVIR 200 MG CAP PO SCH ×2 (08:32→20:40)
[2019-03-16] MEDS: CEFEPIME 2 GM in SODIUM CHLORIDE 0.9% 100 ML IVPB SCH ×2 (08:35→20:42)
[2019-03-16] MEDS: FLUTICASONE 110 MCG INHALER INHALATION SCH ×2 (08:50→19:44)
[2019-03-16] MEDS ORDERED: VANCOMYCIN 1,500 MG in SODIUM CHLORIDE 0.9% 250 ML IVPB SCH (10:00)
[2019-03-16 11:10] LABS: Glucose,Whole Blood 107 mg/dL (75-99)
[2019-03-16] MEDS ORDERED: diphenhydrAMINE 25 MG CAP PO PRN (11:28)
[2019-03-16] MEDS ORDERED: diphenhydrAMINE 25 MG CAP ONE (11:31)
--- NOTE | 2019-03-16 11:48 | P.PN ---
Subjective Progress Note Date: 03/16/19 This is a 48-year-old male patient who presented with syncope and fever. Patient has been recently diagnosed acute myeloid leukemia and recently went first round of chemotherapy. Patient was discharged from hospital last Sunday and was doing good at home until 3 days ago. Patient reports he has been f eeling weak. Patient reports 2 episodes of falling. Patient does not recall falling wakes up laying on the floor. She reports he presents the ER yesterday afternoon after sustaining a fall received blood product and was discharged home. Patient reports he again had another episode where he woke up on the floor. Additional medical history includes asthma, chest pain, diabetes mellitus, GERD, GI bleed, hyperlipidemia, hypertension, myocardial infections, osteoporosis, sleep apnea, anxiety and depression. Chest x-ray completed showing no acute cardiopulmonary process. Head and cervical spine CT completed showing mild cerebral atrophy. No acute intracranial abnormality. No change compared to yesterday minor spondylytic change cervical spine no fracture seen. EKG completed showing normal his rhythm and normal EKG. WBC low at 0.1 hemoglobin 6.1 and platelets 12. Patient started on vancomycin for elevated temperature. Dr. Valenzuela consulted. Blood and urine cultures ordered. Patient states he has been having loose stools, stool for C. diff ordered. Oncology services also consulted. At this time patient reports he is tired but feeling comfortable. Patient denies chest pain or shortness of breath. Patient denies nausea vomiting or diarrhea. Patient denies any urinary burning or frequency On 03/14/2018 patient is alert and oriented 3. Patient reports he feels much i mproved from yesterday. Patient states he feels less lethargic. Patient still having elevated temps. Patient remains on IV antibiotics Rocephin time in [facility] along with antivirals. Patient received 2 units of PRBCs and platelets. Oncology and infectious disease following. Cultures currently pending. C. diff negative. Patient denies chest pain or shortness breath. Patient denies nausea vomiting or diarrhea. Patient denies any urinary burning or frequency. She denies any open sores in mouth or skin. On 03/15/2019 patient is alert and oriented 3 in no apparent distress, he is complaining of diarrhea otherwise he denies any symptoms at this time there is no fever or chills no headache or dizziness no chest pain no shortness of breath no cough no nausea or vomiting no abdominal pain and no urinary symptoms On 03/16/2019 patient alert and oriented 3. Patient does have generalized red raised rash. Patient denies any shortness of breath or scratchy throat. Patient denies chest denies nausea patient denies any urinary burning or frequency. Benadryl has been ordered. Infectious disease is following Objective - Vital Signs Vital signs: Vital Signs Temp 98.3 F 03/16/19 11:03 Pulse 65 03/16/19 11:03 Resp 20 03/16/19 11:03 BP 137/65 03/16/19 11:03 Pulse Ox 98 03/16/19 11:03 Intake & Output 03/15/19 03/16/19 03/16/19 18:59 06:59 18:59 Intake Total 310 644 Output Total 1200 Balance 310 -556 Intake: IV 225 Sodium Chloride 0.9% 1, 225 000 ml @ 75 mls/hr IV . [id number] [facility] Rx#:[id number] Blood Product 310 419 Platelet Irr Pheresis 0 419 Acda Unit [id number] Rc Irr As1 Unit 310 [id number] Output: Urine 1200 Other: # Voids 3 1 # Bowel Movements 1 - Exam Head normocephalic Neck supple Lungs clear to auscultation bilaterally no wheezing or crackles Heart regular rate and rhythm S1-S2, no rub or gallop Abdomen is soft nontender nondistended positive bowel sounds no hepatosplenomegaly Extremities no edema Neuro alert and orientated to 3 - Labs CBC & Chem 7: 03/16/19 03:56 03/16/19 03:56 Labs: Abnormal Lab Results - Last 24 Hours (Table) 03/13/19 03/15/19 03/15/19 Range/Units 01:10 17:00 20:10 WBC (3.8-10.6) k/uL RBC (4.30-5.90) m/uL Hgb (13.0-17.5) gm/dL Hct (39.0-53.0) % RDW (11.5-15.5) % Plt Count (150-450) k/uL Creatinine (0.66-1.25) mg/dL POC Glucose (mg/dL) 121 H 120 H (75-99) mg/dL AST (17-59) U/L Total Protein (6.3-8.2) g/dL Albumin (3.5-5.0) g/dL Crossmatch See Detail 03/16/19 03/16/19 03/16/19 Range/Units 03:56 03:56 06:52 WBC 0.2 L* (3.8-10.6) k/uL RBC 2.60 L (4.30-5.90) m/uL Hgb 7.5 L (13.0-17.5) gm/dL Hct 21.8 L (39.0-53.0) % RDW 16.9 H (11.5-15.5) % Plt Count 39 L D (150-450) k/uL Creatinine 0.61 L (0.66-1.25) mg/dL POC Glucose (mg/dL) 119 H (75-99) mg/dL AST 12 L (17-59) U/L Total Protein 5.9 L (6.3-8.2) g/dL Albumin 3.2 L (3.5-5.0) g/dL Crossmatch 03/16/19 Range/Units 11:03 WBC (3.8-10.6) k/uL RBC (4.30-5.90) m/uL Hgb (13.0-17.5) gm/dL Hct (39.0-53.0) % RDW (11.5-15.5) % Plt Count (150-450) k/uL Creatinine (0.66-1.25) mg/dL POC Glucose (mg/dL) 107 H (75-99) mg/dL AST (17-59) U/L Total Protein (6.3-8.2) g/dL Albumin (3.5-5.0) g/dL Crossmatch Assessment and Plan Assessment: 1. Syncopal episode likely due to fever and pancytopenia post chemotherapy. CT of head and cervical spine completed showing mild cerebral atrophy. No acute intracranial abnormality. No change compared to yesterday. Minor spondylitic c hanges and cervical spine no fracture seen. On 01/26/2019 prior to chemotherapy 2-D echo completed showing an EF of 55-60% 2. Febrile. Patient started vancomycin. Urine and sputum cultures ordered. Chest x-ray completed showing no acute pulmonary process. Infectious disease is following patient is to be on vancomycin, cefepime and acyclovir febrile does not appear to be from pneumonia or urinary tract infection. Cultures currently pending 3. Diarrhea. C. diff negative. Patient remains on full liquid diet 4. 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 Patient has received 2 units platelets 2 units of PRBC's 5. Acute erythoid leukemia. Patient recently underwent first round of chemotherapy completed on 03/10/2019 6. History of left ureteral calculus 7. History of essential hypertension. Home medications Lopressor resumed with parameters 8. History of diabetes mellitus 2. Metformin on hold sliding scale insulin ordered 9. History of depression 10. History of coronary artery disease 11. History of obstructive sleep apnea maintained on CPAP 12. History of hyperlipidemia. Maintain on Lipitor and fenofibrate 13. History of bipolar home was present 14. Generalized rash. Infectious disease is following. Sergei ordered DVT prophylaxis SCDs due to pancytopenia. GI prophylaxis Pepcid I performed an examination of the patient and discussed their management with the Nurse Practitioner. I have reviewed the Nurse Practitioner's notes and agree with the documented findings and plan of care
--- NOTE | 2019-03-16 15:45 | P.PN ---
Subjective Progress Note Date: 03/16/19 On the patient has noted a reddish flat rash, mostly on his upper extremities, which is mostly symptomatic. He continues to have lose bowel movements at about the same frequency. Appetite is fair. No obvious bleeding, fever/chills/nausea/vomiting. No significant oral ulcers Objective - Vital Signs Vital signs: Vital Signs Temp 98.3 F 03/16/19 11:03 Pulse 65 03/16/19 11:03 Resp 20 03/16/19 11:03 BP 137/65 03/16/19 11:03 Pulse Ox 98 03/16/19 11:03 Intake & Output 03/15/19 03/16/19 03/16/19 18:59 06:59 18:59 Intake Total 302 811 1564 Output Total 1200 Balance 310 -556 1450 Intake: IV 225 300 Sodium Chloride 0.9% 1, 225 300 000 ml @ 75 mls/hr IV . [id number] [facility] Rx#:[id number] Intake, IV Titration 350 Amount Cefepime 2 gm In Sodium 100 Chloride 0.9% 100 ml @ 200 mls/hr IVPB Q12H [facility] Rx#:[id number] Vancomycin 1,500 mg In 250 Sodium Chloride 0.9% 250 ml @ 125 mls/hr IVPB Q8H [facility] Rx#:[id number] Oral 800 Blood Product 310 419 Platelet Irr Pheresis 0 419 Acda Unit [id number] Rc Irr As1 Unit 310 [id number] Output: Urine 1200 Other: # Voids 3 1 1 # Bowel Movements 1 1 - Constitutional General appearance: Present: no acute distress - EENT Eyes: Present: EOMI, PERRLA ENT: Present: hearing grossly normal, normal oropharynx - Respiratory Respiratory: bilateral: CTA - Cardiovascular Rhythm: regular - Gastrointestinal General gastrointestinal: Present: normal bowel sounds, soft - Integumentary Integumentary: Present: rash (Macular, reddish, scattered, on upper extremities) - Neurologic Neurologic: Present: CNII-XII intact - Musculoskeletal Musculoskeletal: Present: generalized weakness - Psychiatric Psychiatric: Present: A&O x's 3, appropriate affect - Labs CBC & Chem 7: 03/16/19 03:56 03/16/19 03:56 Labs: Abnormal Lab Results - Last 24 Hours (Table) 03/13/19 03/15/19 03/15/19 Range/Units 01:10 17:00 20:10 WBC (3.8-10.6) k/uL RBC (4.30-5.90) m/uL Hgb (13.0-17.5) gm/dL Hct (39.0-53.0) % RDW (11.5-15.5) % Plt Count (150-450) k/uL Creatinine (0.66-1.25) mg/dL POC Glucose (mg/dL) 121 H 120 H (75-99) mg/dL AST (17-59) U/L Total Protein (6.3-8.2) g/dL Albumin (3.5-5.0) g/dL Crossmatch See Detail 03/16/19 03/16/19 03/16/19 Range/Units 03:56 03:56 06:52 WBC 0.2 L* (3.8-10.6) k/uL RBC 2.60 L (4.30-5.90) m/uL Hgb 7.5 L (13.0-17.5) gm/dL Hct 21.8 L (39.0-53.0) % RDW 16.9 H (11.5-15.5) % Plt Count 39 L D (150-450) k/uL Creatinine 0.61 L (0.66-1.25) mg/dL POC Glucose (mg/dL) 119 H (75-99) mg/dL AST 12 L (17-59) U/L Total Protein 5.9 L (6.3-8.2) g/dL Albumin 3.2 L (3.5-5.0) g/dL Crossmatch 03/16/19 Range/Units 11:03 WBC (3.8-10.6) k/uL RBC (4.30-5.90) m/uL Hgb (13.0-17.5) gm/dL Hct (39.0-53.0) % RDW (11.5-15.5) % Plt Count (150-450) k/uL Creatinine (0.66-1.25) mg/dL POC Glucose (mg/dL) 107 H (75-99) mg/dL AST (17-59) U/L Total Protein (6.3-8.2) g/dL Albumin (3.5-5.0) g/dL Crossmatch Assessment and Plan (1) Fever Narrative/Plan: This is noted recurred, and may have been due to the blood transfusion. Cultures are negative so far. The patient's vancomycin was discontinued by ID due to the rash. If cultures remain negative, discussed with ID regarding discharge on his prior regimen of prophylactic antibiotics Current Visit: Yes Status: Acute Priority: High Code(s): R50.9 - FEVER, UNSPECIFIED SNOMED Code(s): 014039310 (2) Pancytopenia Narrative/Plan: The patient's hemoglobin and platelets are in a safe range today. No transfusion required. Continue to monitor and transfuse as needed Current Visit: Yes Status: Acute Priority: High Code(s): D61.818 - OTHER PANCYTOPENIA SNOMED Code(s): 522613103 (3) Acute erythroid leukemia Narrative/Plan: The patient is status post induction therapy with the 7+3 regimen (day #14 today). Recovery of counts is generally expected to start in about a week. Repeat bone marrow to assess response once counts have recovered Current Visit: No Status: Acute Priority: High Code(s): C94.00 - ACUTE ERYTHROID LEUKEMIA, NOT HAVING ACHIEVED REMISSION SNOMED Code(s): 43698886 (4) Diarrhea Narrative/Plan: C. diff has been negative. This is most likely related to his neutropenia and/or antibiotics. Imodium will be started Current Visit: Yes Status: Acute Priority: High Code(s): R19.7 - DIARRHEA, UNSPECIFIED SNOMED Code(s): 74160414 (5) Rash Narrative/Plan: Fairly mild, and localized upper Ixodes. At this time is appears to be suggestive of a drug rash. Vancomycin has been discontinued. Current Visit: Yes Status: Acute Code(s): R21 - RASH AND OTHER NONSPECIFIC SKIN ERUPTION SNOMED Code(s): 592888159
[2019-03-16] MEDS: ACETAMINOPHEN TAB 325 MG TAB PO PRN (16:38)
[2019-03-16] MEDS: FENOFIBRATE 160 MG TAB PO SCH (16:39)
[2019-03-16] MEDS: ATORVASTATIN 80 MG TAB PO SCH (16:39)
[2019-03-16 17:01] LABS: Glucose,Whole Blood 97 mg/dL (75-99)
[2019-03-16 19:34] LABS: Glucose,Whole Blood 148 mg/dL (75-99)
[2019-03-16] MEDS: traZODone HCL 50 MG TAB PO SCH (20:40)
[2019-03-16] MEDS: MONTELUKAST 10 MG TAB PO SCH (20:40)
[2019-03-16] MEDS: METOPROLOL SUCCINATE (ER) 25 MG TAB.ER.24H PO SCH (20:40)
[2019-03-16] MEDS: VENLAFAXINE HCL ER 150 MG CAP PO SCH (20:45)
--- NOTE | 2019-03-16 21:38 | P.PN ---
Subjective Progress Note Date: 03/16/19 48-year-old male who has a history of anemia that was of unclear etiology. 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 From March 03 the he was admitted to hospital for his induction ch emotherapy of the 7+3 regimens. He did seem to tolerate the regimen well and was following in the outpatient clinic because certainly have dizziness and having falls. Because he was feeling poorly he was further assessed and platelets were less than 10,000 and significant anemia was noted. The patient also had a temperature to 100.8 and calcium was admitted to hospital. He is receiving supportive transfusions of packed red cells and platelets and because of the fever and leukopenia the infectious diseases consultation was requested. The barely had some soft stool but not megan diarrhea per the nursing staff at this time. The patient is in the ICU but is a cardiac care overflow patient at this time. He does not have hypotension or evidence of septic shock. March 14 2019 the patient is feeling somewhat better today. He is awaiting platelets of the thinness he denies further fever or chills. Still very weak. He has generalized malaise. He is denying other new acute symptoms. He is able to eat without nausea or emesis. His loose stool has resolved. 03/16/2019 the patient was doing somewhat better but now is developed evidence of a rash it's minimally pruritic especially over his lower back and a bit onto his extremity. He is without fevers or chills. He is feeling slightly better. There is no rotation is receiving any further transfusion today but did have blood products yesterday. Objective - Vital Signs Vital signs: Vital Signs Temp 99.4 F 03/16/19 20:00 Pulse 89 03/16/19 20:00 Resp 15 03/16/19 20:00 BP 126/69 03/16/19 20:00 Pulse Ox 100 03/16/19 20:00 Intake & Output 03/16/19 03/16/19 03/17/19 06:59 18:59 06:59 Intake Total 644 1450 Output Total 1200 1600 Balance -556 -150 Intake: IV 225 300 Sodium Chloride 0.9% 1, 225 300 000 ml @ 75 mls/hr IV . [id number] [facility] Rx#:[id number] Intake, IV Titration 350 Amount Cefepime 2 gm In Sodium 100 Chloride 0.9% 100 ml @ 200 mls/hr IVPB Q12H [facility] Rx#:[id number] Vancomycin 1,500 mg In 250 Sodium Chloride 0.9% 250 ml @ 125 mls/hr IVPB Q8H [facility] Rx#:[id number] Oral 800 Blood Product 419 Platelet Irr Pheresis 419 Acda Unit [id number] Output: Urine 1200 1600 Other: # Voids 1 2 # Bowel Movements 1 - Exam HEENT: Anicteric conjunctiva are pink and moist nasal mucosa grossly intact without significant lesions, there is no thrush. Neck: The neck is supple there are a few lymph nodes palpable in the neck but no thyromegaly Lungs: Good bilateral air entry without significant crackles or wheezing. There is no significant bronchial sounds. There is no egophony or dullness. Heart: Regular rate and rhythm with an audible S1-S2, no S3 no S4. There is no significant murmur click or rub, PMI was nondisplaced. Abdomen: Positive bowel sounds soft mild tenderness due to the hepatosplenomegaly, no other abdominal mass noted there was no guarding or rebound. Extremities: The upper extremities have excellent pulses they are symmetric, no significant petechiae or telangiectasia. No splinter hemorrhages were noted. The lower extremities are free from significant edema. The peripheral pulses were 2+ and symmetric. There are not large axillary or inguinal lymph nodes palpable at this time Neuro: Awake alert oriented to person place and time. There are no acute new gross focal sensory motor deficits. Skin reveals evidence of the maculopapular rash especially on the flank area on the lower back and a very small amount onto the arms and legs. Face and chest despaired. - Labs CBC & Chem 7: 03/16/19 03:56 03/16/19 03:56 Labs: Abnormal Lab Results - Last 24 Hours (Table) 03/16/19 03/16/19 03/16/19 Range/Units 03:56 03:56 06:52 WBC 0.2 L* (3.8-10.6) k/uL RBC 2.60 L (4.30-5.90) m/uL Hgb 7.5 L (13.0-17.5) gm/dL Hct 21.8 L (39.0-53.0) % RDW 16.9 H (11.5-15.5) % Plt Count 39 L D (150-450) k/uL Creatinine 0.61 L (0.66-1.25) mg/dL POC Glucose (mg/dL) 119 H (75-99) mg/dL AST 12 L (17-59) U/L Total Protein 5.9 L (6.3-8.2) g/dL Albumin 3.2 L (3.5-5.0) g/dL 03/16/19 03/16/19 Range/Units 11:03 19:32 WBC (3.8-10.6) k/uL RBC (4.30-5.90) m/uL Hgb (13.0-17.5) gm/dL Hct (39.0-53.0) % RDW (11.5-15.5) % Plt Count (150-450) k/uL Creatinine (0.66-1.25) mg/dL POC Glucose (mg/dL) 107 H 148 H (75-99) mg/dL AST (17-59) U/L Total Protein (6.3-8.2) g/dL Albumin (3.5-5.0) g/dL Laboratory Results WBC 0.2 k/uL (3.8-10.6) L* 03/16/19 03:56 RBC 2.60 m/uL (4.30-5.90) L 03/16/19 03:56 Hgb 7.5 gm/dL (13.0-17.5) L 03/16/19 03:56 Hct 21.8 % (39.0-53.0) L 03/16/19 03:56 MCV 84.1 fL (80.0-100.0) 03/16/19 03:56 MCH 29.1 pg (25.0-35.0) 03/16/19 03:56 MCHC 34.5 g/dL (31.0-37.0) 03/16/19 03:56 RDW 16.9 % (11.5-15.5) H 03/16/19 03:56 Plt Count 39 k/uL (150-450) L D 03/16/19 03:56 Neutrophils % 17 % 03/13/19 16:40 Lymphocytes % 72 % 03/13/19 16:40 Monocytes % 4 % 03/13/19 16:40 Eosinophils % 3 % 03/13/19 16:40 Basophils % 2 % 03/13/19 16:40 Neutrophils # TRIBAL DELEGATE 03/15/19 07:27 Lymphocytes # 0.1 k/uL (1.0-4.8) L 03/13/19 16:40 Monocytes # 0.0 k/uL (0-1.0) 03/13/19 16:40 Eosinophils # 0.0 k/uL (0-0.7) 03/13/19 16:40 Basophils # 0.0 k/uL (0-0.2) 03/13/19 16:40 Differential Comment 03/16/19 03:56 Manual Slide Review Performed 03/16/19 03:56 Hypochromasia Slight 03/13/19 16:40 Poikilocytosis Slight 03/16/19 03:56 Poikilocytosis (manual Present 03/13/19 16:40 Anisocytosis Slight 03/16/19 03:56 Microcytosis Slight 03/16/19 03:56 Tear Drop Cells Present 03/15/19 07:27 PT 10.8 sec (9.0-12.0) 03/13/19 01:10 INR 1.0 (<1.2) 03/13/19 01:10 APTT 28.1 sec (22.0-30.0) 03/13/19 01:10 Sodium 139 mmol/L (137-145) 03/16/19 03:56 Potassium 3.8 mmol/L (3.5-5.1) 03/16/19 03:56 Chloride 106 mmol/L (98-107) 03/16/19 03:56 Carbon Dioxide 25 mmol/L (22-30) 03/16/19 03:56 Anion Gap 8 mmol/L 03/16/19 03:56 BUN 9 mg/dL (9-20) 03/16/19 03:56 Creatinine 0.61 mg/dL (0.66-1.25) L 03/16/19 03:56 Est GFR (CKD-EPI)AfAm >90 (>60 ml/min/1.73 sqM) 03/16/19 03:56 Est GFR (CKD-EPI)NonAf >90 (>60 ml/min/1.73 sqM) 03/16/19 03:56 Glucose 96 mg/dL (74-99) 03/16/19 03:56 POC Glucose (mg/dL) 148 mg/dL (75-99) H 03/16/19 19:32 POC Glu Drapery Hanger ID Yeimi Philippe 03/16/19 19:32 Plasma Lactic Acid Cory 1.6 mmol/L (0.7-2.0) 03/13/19 01:10 Calcium 8.8 mg/dL (8.4-10.2) 03/16/19 03:56 Total Bilirubin 0.8 mg/dL (0.2-1.3) 03/16/19 03:56 AST 12 U/L (17-59) L 03/16/19 03:56 ALT 22 U/L (21-72) 03/16/19 03:56 Alkaline Phosphatase 49 U/L (38-126) 03/16/19 03:56 Troponin I <0.012 ng/mL (0.000-0.034) 03/13/19 01:10 Total Protein 5.9 g/dL (6.3-8.2) L 03/16/19 03:56 Albumin 3.2 g/dL (3.5-5.0) L 03/16/19 03:56 Urine Color Yellow 03/13/19 09:15 Urine Appearance Clear (Clear) 03/13/19 09:15 Urine pH 6.0 (5.0-8.0) 03/13/19 09:15 Ur Specific [place] 1.020 (1.001-1.035) 03/13/19 09:15 Urine Protein Negative (Negative) 03/13/19 09:15 Urine Glucose (UA) Negative (Negative) 03/13/19 09:15 Urine Ketones Negative (Negative) 03/13/19 09:15 Urine Blood Negative (Negative) 03/13/19 09:15 Urine Nitrite Negative (Negative) 03/13/19 09:15 Urine Bilirubin Negative (Negative) 03/13/19 09:15 Urine Urobilinogen <2.0 mg/dL (<2.0) 03/13/19 09:15 Ur Leukocyte Esterase Negative (Negative) 03/13/19 09:15 Vancomycin Trough <5.0 ug/mL 03/16/19 03:56 C. difficile (EIA) Intrp Negative (Negative) 03/13/19 20:27 Blood Type O Positive 03/13/19 01:10 Blood Type Recheck O Pos 03/13/19 01:10 Bld Type Recheck Status No 03/13/19 01:10 Antibody Screen NEGATIVE 03/13/19 01:10 Crossmatch See Detail 03/13/19 01:10 Transfuse Platelets 03/15/2019 03/15/19 11:35 Spec Expiration Date 03/16/2019230903/13/19 01:10 Assessment and Plan Assessment: 48-year-old male who has a several month history of feeling poorly with progressive anemia and evidence of pancytopenia who underwent bone marrow aspiration that confirmed with the acute erythroid leukemia, the patient is now status post his first cycle of chemotherapy of the 7+3 regimen. Presented to Hospital weakness, syncope fever and pancytopenia.Blood cultures have been requested and while cultures are process antibiotic therapy with vancomycin and cefepime have been requested given his current status. He is also receiving acyclovir given his leukemia status. The patient does not appear to have pneumonia or urinary tract infection. Was concerns for the possibility of colitis, however stool is soft but not liquid and is being monitored for further change. Receiving transfusions for supportive therapy. 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 No further diarrhea. He is tolerating the current antibiotic therapy with vancomycin and cefepime well. If his blood cultures remain negative we will de-escalate therapy and remove vancomycin. The care is discussed with the care team, the patient has no proof of remission from his erythroid leukemia and constantly is not a candidate for growth factor therapy. They will continue with transfusion therapy as indicated from oncology. 03/16/2019 the patient is feeling better today however he has now developed a bit of a rash. Concern this could be from the vancomycin therapy in this is discontinued and that he has no positive cultures and ongoing fevers. Benadryl is being given he relates he is feeling somewhat better. He will be monitored to ensure that he is not having difficulties with the cefepime. He did receive transfusion yesterday is also the possibility of this is related to that event. (1) Fever Current Visit: Yes Status: Acute Priority: High Code(s): R50.9 - FEVER, UNSPECIFIED SNOMED Code(s): 341050224 (2) Pancytopenia Current Visit: Yes Status: Acute Priority: High Code(s): D61.818 - OTHER PANCYTOPENIA SNOMED Code(s): 399498276 (3) Syncope Current Visit: Yes Status: Acute Code(s): R55 - SYNCOPE AND COLLAPSE SNOMED Code(s): 545852295 (4) Acute erythroid leukemia Current Visit: No Status: Acute Priority: High Code(s): C94.00 - ACUTE ERYTHROID LEUKEMIA, NOT HAVING ACHIEVED REMISSION SNOMED Code(s): 03769640
[2019-03-17] MEDS ORDERED: VANCOMYCIN TROUGH DUE 1 EACH MISC MISCELLANE ONE (03:00)
[2019-03-17] MEDS: SALT AND SODA MOUTHWASH 1,000 ML PO SCH ×5 (05:49→23:23)
[2019-03-17] MEDS: SODIUM CHLORIDE 0.9% 1,000 ML IV SCH ×3 (05:49→19:49)
[2019-03-17 06:50] LABS: Glucose,Whole Blood 112 mg/dL (75-99)
[2019-03-17] MEDS: FLUTICASONE 110 MCG INHALER INHALATION SCH ×2 (07:27→21:00)
[2019-03-17] MEDS: INSULIN ASPART (NovoLOG) 100 UNIT/ML VIAL SQ SCH ×4 (08:31→20:53)
[2019-03-17] MEDS: CEFEPIME 2 GM in SODIUM CHLORIDE 0.9% 100 ML IVPB SCH ×2 (08:56→23:22)
[2019-03-17] MEDS: MAG HYDROX/AL HYDROX/SIMETH 30 ML, LIDOCAINE VISCOUS 30 ML, diphenhydrAMINE ELIXIR 75 M... PO SCH ×12 (08:56→20:53)
[2019-03-17] MEDS: DIVALPROEX 500 MG TABLET.DR PO SCH ×2 (08:57→20:52)
[2019-03-17] MEDS: FLUCONAZOLE 100 MG TAB PO SCH (08:57)
[2019-03-17] MEDS: ACYCLOVIR 200 MG CAP PO SCH ×2 (08:57→20:52)
[2019-03-17] MEDS: FAMOTIDINE 20 MG TAB PO SCH (08:57)
[2019-03-17 10:11] LABS: Anisocytosis Slight; HCT 21.2 % (39.0-53.0); HGB 7.5 gm/dL (13.0-17.5); MCH 29.5 pg (25.0-35.0); MCHC 35.4 g/dL (31.0-37.0); MCV 83.3 fL (80.0-100.0); Mean Platelet Volume 10.4; Microcytosis Slight; Poikilocytosis Slight; RBC 2.54 m/uL (4.30-5.90); RDW 16.8 % (11.5-15.5)
[2019-03-17 10:17] LABS: WBC 0.2 k/uL (3.8-10.6)
[2019-03-17 10:49] LABS: Platelet Count 32 k/uL (150-450)
--- NOTE | 2019-03-17 10:53 | P.PN ---
Subjective Progress Note Date: 03/17/19 Principal diagnosis: AML No acute complaints labs are still pending today. Hemoglobin 7.5. Objective - Vital Signs Vital signs: Vital Signs Temp 98.8 F 03/17/19 04:00 Pulse 83 03/17/19 04:00 Resp 16 03/17/19 04:00 BP 113/71 03/17/19 04:00 Pulse Ox 98 03/17/19 04:00 Intake & Output 03/16/19 03/17/19 03/17/19 18:59 06:59 18:59 Intake Total 1450 990 Output Total 1600 1000 Balance -150 -10 Intake: IV 300 300 Sodium Chloride 0.9% 1, 300 300 000 ml @ 75 mls/hr IV . [id number] [facility] Rx#:[id number] Intake, IV Titration 350 100 Amount Cefepime 2 gm In Sodium 100 100 Chloride 0.9% 100 ml @ 200 mls/hr IVPB Q12H [facility] Rx#:[id number] Vancomycin 1,500 mg In 250 Sodium Chloride 0.9% 250 ml @ 125 mls/hr IVPB Q8H [facility] Rx#:[id number] Oral 800 590 Output: Urine 1600 1000 Other: Voiding Method Toilet Toilet Urinal Urinal # Voids 2 3 # Bowel Movements 1 - Exam - Constitutional General appearance: average body habitus, cooperative, no acute distress - EENT dry mouth Eyes: anicteric sclerae, EOMI, poor dentition ENT: hearing grossly normal - Neck Neck: no lymphadenopathy - Respiratory Respiratory: bilateral: CTA - Cardiovascular Rhythm: regular Heart sounds: normal: S1, S2 Abnormal Heart Sounds: no systolic murmur, no diastolic murmur, no rub, no S3 Gallop, no S4 Gallop, no click, no other leg Peripheral Edema: bilateral: None - Gastrointestinal General gastrointestinal: no absent bowel sounds, no decreased bowel sounds, no distended, no hepatomegaly, hyperactive bowel sounds, no normal bowel sounds, no organomegaly, no rigid, no scaphoid, soft, no splenomegaly, tenderness, no umbilical hernia, no ventral hernia Localized gastrointestinal: tender: RUQ, RLQ - Integumentary Integumentary: normal turgor, pale - Neurologic Neurologic: CNII-XII intact - Musculoskeletal Musculoskeletal: generalized weakness, strength equal bilaterally - Psychiatric Psychiatric: A&O x's 3, appropriate affect, intact judgment & insight - Labs CBC & Chem 7: 03/17/19 09:32 03/16/19 03:56 Labs: Abnormal Lab Results - Last 24 Hours (Table) 03/16/19 03/16/19 03/17/19 Range/Units 11:03 19:32 06:49 WBC (3.8-10.6) k/uL RBC (4.30-5.90) m/uL Hgb (13.0-17.5) gm/dL Hct (39.0-53.0) % RDW (11.5-15.5) % POC Glucose (mg/dL) 107 H 148 H 112 H (75-99) mg/dL 03/17/19 Range/Units 09:32 WBC 0.2 L* (3.8-10.6) k/uL RBC 2.54 L (4.30-5.90) m/uL Hgb 7.5 L (13.0-17.5) gm/dL Hct 21.2 L (39.0-53.0) % RDW 16.8 H (11.5-15.5) % POC Glucose (mg/dL) (75-99) mg/dL Assessment and Plan Plan: Assessment and Plan Fever - Afebrile since 03-14-19 - Broad SPectrum Antibiotics managed per ID - C-Diff Neg - Toro Cultures Pending - No gcsf as patient is not in a confirmed remission Pancytopenia: - Chemotherapy Induced and Acute Leukemia Induced - PRN Transfusion Hemoglobin less than 7, Platelets les than 10K, Only with Irradiated blood products please - Daily CBC and monitor for infection and bleeding Acute Leukemia - Patient is status post induction 7+3 chemotherapy regimen, completed earlier this week. - Patient will be scheduled for bone marrow biopsy and aspirate within the next 2 weeks to evaluate for remission. Dizziness: - Multifactoral, Dehydration, Anemia, possible early sepsis. - Fall Precautions, Hydration po and IV Diarrhea - C-Diff Negative - May initiate Questran and PRN Antidiarrheals PLAN: - Overll ok to be discharged if bloodwork is stable. May require transfusion prior, await platlets - Discuss with ID regarding prophylaxis antibiotics Acyclovir, Levaquin. - Discussed with primary team. Eileen Zaman SPOOL [employer]KER Physician Attest: I have assessed and completed the full history and physical as well the above assessment and plan, Agree with above dictation, dictated as a scribe
[2019-03-17 10:54] LABS: ALT 19 U/L (21-72); AST 11 U/L (17-59); African American GFR (CKD) >90 (>60 ml/min/1.73 sqM); Albumin 3.2 g/dL (3.5-5.0); Alkaline Phosphatase 49 U/L (38-126); Anion Gap 10 mmol/L; Blood Urea Nitrogen 11 mg/dL (9-20); Calcium 8.8 mg/dL (8.4-10.2); Carbon Dioxide 25 mmol/L (22-30); Chloride 106 mmol/L (98-107); Glucose 144 mg/dL (74-99); Potassium 3.5 mmol/L (3.5-5.1); Sodium 141 mmol/L (137-145); Total Bilirubin 0.6 mg/dL (0.2-1.3); Total Protein 5.9 g/dL (6.3-8.2)
[2019-03-17 11:17] LABS: Glucose,Whole Blood 160 mg/dL (75-99)
--- NOTE | 2019-03-17 14:25 | P.PN ---
Subjective Progress Note Date: 03/17/19 This is a 48-year-old male patient who presented with syncope and fever. Patient has been recently diagnosed acute myeloid leukemia and recently went first round of chemotherapy. Patient was discharged from hospital last Sunday and was doing good at home until 3 days ago. Patient reports he has been f eeling weak. Patient reports 2 episodes of falling. Patient does not recall falling wakes up laying on the floor. She reports he presents the ER yesterday afternoon after sustaining a fall received blood product and was discharged home. Patient reports he again had another episode where he woke up on the floor. Additional medical history includes asthma, chest pain, diabetes mellitus, GERD, GI bleed, hyperlipidemia, hypertension, myocardial infections, osteoporosis, sleep apnea, anxiety and depression. Chest x-ray completed showing no acute cardiopulmonary process. Head and cervical spine CT completed showing mild cerebral atrophy. No acute intracranial abnormality. No change compared to yesterday minor spondylytic change cervical spine no fracture seen. EKG completed showing normal his rhythm and normal EKG. WBC low at 0.1 hemoglobin 6.1 and platelets 12. Patient started on vancomycin for elevated temperature. Dr. Valenzuela consulted. Blood and urine cultures ordered. Patient states he has been having loose stools, stool for C. diff ordered. Oncology services also consulted. At this time patient reports he is tired but feeling comfortable. Patient denies chest pain or shortness of breath. Patient denies nausea vomiting or diarrhea. Patient denies any urinary burning or frequency On 03/14/2018 patient is alert and oriented 3. Patient reports he feels much i mproved from yesterday. Patient states he feels less lethargic. Patient still having elevated temps. Patient remains on IV antibiotics Rocephin time in [facility] along with antivirals. Patient received 2 units of PRBCs and platelets. Oncology and infectious disease following. Cultures currently pending. C. diff negative. Patient denies chest pain or shortness breath. Patient denies nausea vomiting or diarrhea. Patient denies any urinary burning or frequency. She denies any open sores in mouth or skin. On 03/15/2019 patient is alert and oriented 3 in no apparent distress, he is complaining of diarrhea otherwise he denies any symptoms at this time there is no fever or chills no headache or dizziness no chest pain no shortness of breath no cough no nausea or vomiting no abdominal pain and no urinary symptoms On 03/16/2019 patient alert and oriented 3. Patient does have generalized red raised rash. Patient denies any shortness of breath or scratchy throat. Patient denies chest denies nausea patient denies any urinary burning or frequency. Benadryl has been ordered. Infectious disease is following On 03/17/2019 patient's alert and oriented 3. Rash has improved. Patient's white blood cell 0.2. Any chest pain or shortness of breath. Patient denies nausea vomiting or diarrhea. Patient denies any urinary burning or frequency. Objective - Vital Signs Vital signs: Vital Signs Temp 98.6 F 03/17/19 11:37 Pulse 85 03/17/19 11:37 Resp 16 03/17/19 11:37 BP 115/66 03/17/19 11:37 Pulse Ox 100 03/17/19 11:37 Intake & Output 03/16/19 03/17/19 03/17/19 18:59 06:59 18:59 Intake Total 1450 990 Output Total 1600 1000 Balance -150 -10 Intake: IV 300 300 Sodium Chloride 0.9% 1, 300 300 000 ml @ 75 mls/hr IV . [id number] [facility] Rx#:[id number] Intake, IV Titration 350 100 Amount Cefepime 2 gm In Sodium 100 100 Chloride 0.9% 100 ml @ 200 mls/hr IVPB Q12H [facility] Rx#:[id number] Vancomycin 1,500 mg In 250 Sodium Chloride 0.9% 250 ml @ 125 mls/hr IVPB Q8H [facility] Rx#:[id number] Oral 800 590 Output: Urine 1600 1000 Other: Voiding Method Toilet Toilet Urinal Urinal # Voids 2 3 # Bowel Movements 1 - Exam Head normocephalic Neck supple Lungs clear to auscultation bilaterally no wheezing or crackles Heart regular rate and rhythm S1-S2, no rub or gallop Abdomen is soft nontender nondistended positive bowel sounds no hepatosplenomegaly Extremities no edema Neuro alert and orientated to 3 - Labs CBC & Chem 7: 03/17/19 09:32 03/17/19 09:32 Labs: Abnormal Lab Results - Last 24 Hours (Table) 03/16/19 03/17/19 03/17/19 Range/Units 19:32 06:49 09:32 WBC 0.2 L* (3.8-10.6) k/uL RBC 2.54 L (4.30-5.90) m/uL Hgb 7.5 L (13.0-17.5) gm/dL Hct 21.2 L (39.0-53.0) % RDW 16.8 H (11.5-15.5) % Plt Count 32 L (150-450) k/uL Creatinine (0.66-1.25) mg/dL Glucose (74-99) mg/dL POC Glucose (mg/dL) 148 H 112 H (75-99) mg/dL AST (17-59) U/L ALT (21-72) U/L Total Protein (6.3-8.2) g/dL Albumin (3.5-5.0) g/dL 03/17/19 03/17/19 Range/Units 09:32 11:16 WBC (3.8-10.6) k/uL RBC (4.30-5.90) m/uL Hgb (13.0-17.5) gm/dL Hct (39.0-53.0) % RDW (11.5-15.5) % Plt Count (150-450) k/uL Creatinine 0.63 L (0.66-1.25) mg/dL Glucose 144 H (74-99) mg/dL POC Glucose (mg/dL) 160 H (75-99) mg/dL AST 11 L (17-59) U/L ALT 19 L (21-72) U/L Total Protein 5.9 L (6.3-8.2) g/dL Albumin 3.2 L (3.5-5.0) g/dL Assessment and Plan Assessment: 1. Syncopal episode likely due to fever and pancytopenia post chemotherapy. CT of head and cervical spine completed showing mild cerebral atrophy. No acute intracranial abnormality. No change compared to yesterday. Minor spondylitic changes and cervical spine no fracture seen. On 01/26/2019 prior to chemotherapy 2-D echo completed showing an EF of 55-60% 2. Febrile. Patient started vancomycin. Urine and sputum cultures ordered. Chest x-ray completed showing no acute pulmonary process. Infectious disease is following patient is to be on vancomycin, cefepime and acyclovir febrile does not appear to be from pneumonia or urinary tract infection. Cultures currently pending 3. Diarrhea. C. diff negative. 4. 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 Patient has received 2 units platelets 2 units of PRBC's 5. Acute erythoid leukemia. Patient recently underwent first round of chemotherapy completed on 03/10/2019 6. History of left ureteral calculus 7. History of essential hypertension. Home medications Lopressor resumed with parameters 8. History of diabetes mellitus 2. Metformin on hold sliding scale insulin ordered 9. History of depression 10. History of coronary artery disease 11. History of obstructive sleep apnea maintained on CPAP 12. History of hyperlipidemia. Maintain on Lipitor and fenofibrate 13. History of bipolar home was present 14. Generalized rash. Infectious disease is following. Benadryl ordered. Improved. Fecal myosin DC'd per ID DVT prophylaxis SCDs due to pancytopenia. GI prophylaxis Pepcid I performed an examination of the patient and discussed their management with the Nurse Practitioner. I have reviewed the Nurse Practitioner's notes and agree with the documented findings and plan of care
[2019-03-17 17:10] LABS: Glucose,Whole Blood 117 mg/dL (75-99)
[2019-03-17] MEDS: ATORVASTATIN 80 MG TAB PO SCH (17:50)
[2019-03-17] MEDS: FENOFIBRATE 160 MG TAB PO SCH (17:50)
[2019-03-17] MEDS: ACETAMINOPHEN TAB 325 MG TAB PO PRN (19:56)
[2019-03-17 20:36] LABS: Glucose,Whole Blood 178 mg/dL (75-99)
[2019-03-17] MEDS: MONTELUKAST 10 MG TAB PO SCH (20:52)
[2019-03-17] MEDS: VENLAFAXINE HCL ER 150 MG CAP PO SCH (20:52)
[2019-03-17] MEDS: METOPROLOL SUCCINATE (ER) 25 MG TAB.ER.24H PO SCH (20:52)
[2019-03-17] MEDS: traZODone HCL 50 MG TAB PO SCH (20:52)
[2019-03-18] MEDS: SALT AND SODA MOUTHWASH 1,000 ML PO SCH ×2 (06:14→12:44)
[2019-03-18 07:14] LABS: Glucose,Whole Blood 97 mg/dL (75-99)
[2019-03-18] MEDS: FLUTICASONE 110 MCG INHALER INHALATION SCH (07:42)
[2019-03-18] MEDS: INSULIN ASPART (NovoLOG) 100 UNIT/ML VIAL SQ SCH ×2 (07:55→12:44)
[2019-03-18] MEDS: MAG HYDROX/AL HYDROX/SIMETH 30 ML, LIDOCAINE VISCOUS 30 ML, diphenhydrAMINE ELIXIR 75 M... PO SCH ×4 (08:03)
[2019-03-18] MEDS: FAMOTIDINE 20 MG TAB PO SCH (08:04)
[2019-03-18] MEDS: DIVALPROEX 500 MG TABLET.DR PO SCH (08:04)
[2019-03-18] MEDS: ACYCLOVIR 200 MG CAP PO SCH (08:04)
[2019-03-18] MEDS: FLUCONAZOLE 100 MG TAB PO SCH (08:04)
[2019-03-18 09:07] LABS: Anisocytosis Slight; HCT 21.6 % (39.0-53.0); HGB 7.6 gm/dL (13.0-17.5); MCHC 35.2 g/dL (31.0-37.0); MCV 82.4 fL (80.0-100.0); Mean Platelet Volume 5.8; Microcytosis Slight; Poikilocytosis Slight; RBC 2.62 m/uL (4.30-5.90); RDW 16.5 % (11.5-15.5)
[2019-03-18 09:15] LABS: WBC 0.2 k/uL (3.8-10.6)
[2019-03-18] MEDS: SODIUM CHLORIDE 0.9% 1,000 ML IV SCH (09:17)
[2019-03-18] MEDS: CEFEPIME 2 GM in SODIUM CHLORIDE 0.9% 100 ML IVPB SCH (09:17)
[2019-03-18 09:37] LABS: Platelet Count 21 k/uL (150-450)
[2019-03-18 09:38] LABS: Poikilocytosis (M) Present
--- NOTE | 2019-03-18 10:08 | CDI ---
Documentation Clarification Form Date: 03/18/2019 9:22:55 AM From: Miguelina Moreno RN, CCDS Admit Date: 03/13/2019 2:42:00 AM Patient Name: Fransisco Burnham Visit Number: [id number] Discharge Date: ATTENTION: The Clinical Documentation Specialists (CDI) and [facility] Coding Staff appreciate your assistance in clarifying documentation. Please respond to the clarification below the line at the bottom and electronically sign. The CDI & [facility] Coding staff will review the response and follow-up if needed. Please note: Queries are made part of the Legal Health Record. If you have any questions, please contact the author of this message via ITS. Dr. Veronika Dotson Fever is documented in the H/P and subsequent progress notes and additional clarification is needed. History/Risk Factors: Acute erythoid leukemia, Pancytopenia secondary to chemotherapy, Hypertension, Diabetes mellitus Clinical Indicators 48-year-old female with presented with syncope and fever. Chest x-ray: no acute pulmonary process Labs/Microbiology reports: Cytomegalovirus (CMV) positive, Temperature: 100.4, 100.1, 100.8 Vitals on admission: 113/65 97 18 Labs: WBC 0.1, HGB 6.1, HCT 19.6, PLT 12, RBC 243 Treatment: Vancomycin IV, Cefepime IV Acyclovir PO Transfuse 3 units of PRBC, 3 units platelets IV @ 75 msl/hr Diflucan po daily Consults: 03/13/19 Oncology consult: Acute erythroid leukemia induction chemotherapy, neutropenic fever, pancytopenia chemotherapy induced, early sepsis In order to accurately reflect the patients severity of condition; please indicate the cause of this patients symptom of fever, if known. Neutropenic fever ruled in or out Early sepsis ruled in or out Fever secondary to / due to (please specify) Fever of unknown origin Other, please specify Unable to determine (Last Revision: February 2017) neutropenic fever ruled in MTDD
[2019-03-18 10:09] LABS: ALT 22 U/L (21-72); AST 11 U/L (17-59); African American GFR (CKD) >90 (>60 ml/min/1.73 sqM); Albumin 3.4 g/dL (3.5-5.0); Alkaline Phosphatase 50 U/L (38-126); Anion Gap 9 mmol/L; Blood Urea Nitrogen 12 mg/dL (9-20); Calcium 8.9 mg/dL (8.4-10.2); Carbon Dioxide 26 mmol/L (22-30); Chloride 104 mmol/L (98-107); Glucose 150 mg/dL (74-99); Potassium 3.6 mmol/L (3.5-5.1); Sodium 139 mmol/L (137-145); Total Bilirubin 0.6 mg/dL (0.2-1.3); Total Protein 6.2 g/dL (6.3-8.2)
--- NOTE | 2019-03-18 11:15 | P.PN ---
Subjective Progress Note Date: 03/18/19 Principal diagnosis: AML Labs are still safe range, Rash improved. Objective - Vital Signs Vital signs: Vital Signs Temp 99.4 F 03/18/19 08:44 Pulse 92 03/18/19 08:44 Resp 16 03/18/19 08:44 BP 121/68 03/18/19 08:44 Pulse Ox 96 03/18/19 08:44 Intake & Output 03/17/19 03/18/19 03/18/19 18:59 06:59 18:59 Intake Total 700 937 Balance 700 937 Weight 85.6 kg Intake: IV 600 600 Sodium Chloride 0.9% 1, 600 600 000 ml @ 75 mls/hr IV . [id number] [facility] Rx#:[id number] Intake, IV Titration 100 100 Amount Cefepime 2 gm In Sodium 100 100 Chloride 0.9% 100 ml @ 200 mls/hr IVPB Q12H [facility] Rx#:[id number] Oral 237 Other: Voiding Method Toilet Toilet Toilet Urinal # Voids 3 2 - Exam - Constitutional General appearance: average body habitus, cooperative, no acute distress - EENT dry mouth Eyes: anicteric sclerae, EOMI, poor dentition ENT: hearing grossly normal - Neck Neck: no lymphadenopathy - Respiratory Respiratory: bilateral: CTA - Cardiovascular Rhythm: regular Heart sounds: normal: S1, S2 Abnormal Heart Sounds: no systolic murmur, no diastolic murmur, no rub, no S3 Gallop, no S4 Gallop, no click, no other leg Peripheral Edema: bilateral: None - Gastrointestinal General gastrointestinal: no absent bowel sounds, no decreased bowel sounds, no distended, no hepatomegaly, hyperactive bowel sounds, no normal bowel sounds, no organomegaly, no rigid, no scaphoid, soft, no splenomegaly, tenderness, no umbilical hernia, no ventral hernia Localized gastrointestinal: tender: RUQ, RLQ - Integumentary Integumentary: normal turgor, pale - Neurologic Neurologic: CNII-XII intact - Musculoskeletal Musculoskeletal: generalized weakness, strength equal bilaterally - Psychiatric Psychiatric: A&O x's 3, appropriate affect, intact judgment & insight - Labs CBC & Chem 7: 03/18/19 08:45 03/18/19 08:45 Labs: Abnormal Lab Results - Last 24 Hours (Table) 03/17/19 03/17/19 03/17/19 Range/Units 11:16 17:09 20:34 WBC (3.8-10.6) k/uL RBC (4.30-5.90) m/uL Hgb (13.0-17.5) gm/dL Hct (39.0-53.0) % RDW (11.5-15.5) % Plt Count (150-450) k/uL Creatinine (0.66-1.25) mg/dL Glucose (74-99) mg/dL POC Glucose (mg/dL) 160 H 117 H 178 H (75-99) mg/dL AST (17-59) U/L Total Protein (6.3-8.2) g/dL Albumin (3.5-5.0) g/dL 03/18/19 03/18/19 Range/Units 08:45 08:45 WBC 0.2 L* (3.8-10.6) k/uL RBC 2.62 L (4.30-5.90) m/uL Hgb 7.6 L (13.0-17.5) gm/dL Hct 21.6 L (39.0-53.0) % RDW 16.5 H (11.5-15.5) % Plt Count 21 L (150-450) k/uL Creatinine 0.63 L (0.66-1.25) mg/dL Glucose 150 H (74-99) mg/dL POC Glucose (mg/dL) (75-99) mg/dL AST 11 L (17-59) U/L Total Protein 6.2 L (6.3-8.2) g/dL Albumin 3.4 L (3.5-5.0) g/dL Assessment and Plan Plan: Assessment and Plan Fever - Afebrile since 03-14-19 - Broad SPectrum Antibiotics managed per ID - C-Diff Neg - Toro Cultures Pending - No gcsf as patient is not in a confirmed remission Pancytopenia: - Chemotherapy Induced and Acute Leukemia Induced - PRN Transfusion Hemoglobin less than 7, Platelets les than 10K, Only with Irradiated blood products please - Daily CBC and monitor for infection and bleeding Acute Leukemia - Patient is status post induction 7+3 chemotherapy regimen, completed earlier this week. - Patient will be scheduled for bone marrow biopsy and aspirate within the next 2 weeks to evaluate for remission. Dizziness: - Multifactoral, Dehydration, Anemia, possible early sepsis. - Fall Precautions, Hydration po and IV Diarrhea - resolved - C-Diff Negative - May initiate Questran and PRN Antidiarrheals PLAN: - Overall ok to be discharged if bloodwork is stable. May require transfusion prior, await platlets - Discuss with ID regarding prophylaxis antibiotics Acyclovir, Levaquin. - Discussed with primary team. - He has a CBC check with nursing scheduled tomorrow 03/19/19 @ 11am Eileen Zaman NP
[2019-03-18 11:28] LABS: Glucose,Whole Blood 160 mg/dL (75-99)
[2019-03-18 11:58] VITALS: BP 118/58; PULSE 81; RESP 14; TEMP 98.4
--- NOTE | 2019-03-18 14:11 | P.DS ---
Providers Date of admission: 03/13/19 02:42 Expected date of discharge: 03/18/19 Attending physician: Veronika Dotson Consults: 03/13/19 02:40 Consult Physician Stat Consulting Provider: Guille Rojas Consult Reason/Comments: Pancytopenia. Fever. Do you want consulting provider notified?: Already Contacted 03/13/19 09:02 Consult Physician Routine Consulting Provider: Deuce Valenzuela Consult Reason/Comments: fever post chemo Do you want consulting provider notified?: Yes Primary care physician: Veronika [facility] Course: Discharge diagnosis 1. Syncopal episode likely due to fever and pancytopenia post chemotherapy. CT of head and cervical spine completed showing mild cerebral atrophy. No acute intracranial abnormality. No change compared to yesterday. Minor spondylitic changes and cervical spine no fracture seen. On 01/26/2019 prior to chemotherapy 2-D echo completed showing an EF of 55-60% 2. Febrile. Patient started vancomycin. Urine and sputum cultures ordered. Chest x-ray completed showing no acute pulmonary process. Infectious disease is following patient is to be on vancomycin, cefepime and acyclovir febrile does not appear to be from pneumonia or urinary tract infection. Cultures currently negative per ID. Per nursing staff Dr. Valenzuela aware that patient did have elevated temperature 101.6 patient has been cleared for discharge from infectious disease and oncology services. Patient will be discharged on fluconazole Levaquin and Acyclovir per ID 3. Diarrhea. C. diff negative. 4. 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 Patient has received 2 units platelets 2 units of PRBC's 5. Acute erythoid leukemia. Patient recently underwent first round of chemotherapy completed on 03/10/2019 6. History of left ureteral calculus 7. History of essential hypertension. Home medications Lopressor resumed with parameters 8. History of diabetes mellitus 2. Metformin on hold sliding scale insulin ordered 9. History of depression 10. History of coronary artery disease 11. History of obstructive sleep apnea maintained on CPAP 12. History of hyperlipidemia. Maintain on Lipitor and fenofibrate 13. History of bipolar home was present 14. Generalized rash. Infectious disease is following. Benadryl ordered. Improved. Fecal myosin DC'd per ID Hospital course This is a 48-year-old male patient who presented with syncope and fever. Patient has been recently diagnosed acute myeloid leukemia and recently went first round of chemotherapy. Patient was discharged from hospital last Sunday and was doing good at home until 3 days ago. Patient reports he has been feeling weak. Patient reports 2 episodes of falling. Patient does not recall falling wakes up laying on the floor. She reports he presents the ER yesterday afternoon after sustaining a fall received blood product and was discharged home. Patient reports he again had another episode where he woke up on the floor. Additional medical history includes asthma, chest pain, diabetes mellitus, GERD, GI bleed, hyperlipidemia, hypertension, myocardial infections, osteoporosis, sleep apnea, anxiety and depression. Chest x-ray completed showing no acute cardiopulmonary process. Head and cervical spine CT completed showing mild cerebral atrophy. No acute intracranial abnormality. No change compared to yesterday minor spondylytic change cervical spine no fracture seen. EKG completed showing normal his rhythm and normal EKG. WBC low at 0.1 hemoglobin 6.1 and platelets 12. Patient started on vancomycin for elevated temperature. Dr. Valenzuela consulted. Blood and urine cultures ordered. Patient states he has been having loose stools, stool for C. diff ordered. Oncology services also consulted. At this time patient reports he is tired but feeling comfortable. Patient denies chest pain or shortness of breath. Patient denies nausea vomiting or diarrhea. Patient denies any urinary burning or frequency On 03/14/2018 patient is alert and oriented 3. Patient reports he feels much improved from yesterday. Patient states he feels less lethargic. Patient still having elevated temps. Patient remains on IV antibiotics Rocephin time in [facility] along with antivirals. Patient received 2 units of PRBCs and platelets. Oncology and infectious disease following. Cultures currently pending. C. diff negative. Patient denies chest pain or shortness breath. Patient denies nausea vomiting or diarrhea. Patient denies any urinary burning or frequency. She denies any open sores in mouth or skin. On 03/15/2019 patient is alert and oriented 3 in no apparent distress, he is complaining of diarrhea otherwise he denies any symptoms at this time there is no fever or chills no headache or dizziness no chest pain no shortness of breath no cough no nausea or vomiting no abdominal pain and no urinary symptoms On 03/16/2019 patient alert and oriented 3. Patient does have generalized red raised rash. Patient denies any shortness of breath or scratchy throat. Patient denies chest denies nausea patient denies any urinary burning or frequency. Benadryl has been ordered. Infectious disease is following On 03/17/2019 patient's alert and oriented 3. Rash has improved. Patient's white blood cell 0.2. Any chest pain or shortness of breath. Patient denies nausea vomiting or diarrhea. Patient denies any urinary burning or frequency. On 03/18/2019 patient is alert and oriented 3. Patient is very eager to go home. Patient did have a temp of 101.6 yesterday. Did discuss with infectious disease [employer]. Patient was evaluated by Dr. Valenzuela per nursing staff. Patient has been cleared for discharge from both oncology and infectious disease. Patient will be discharged on fluconazole, Levaquin and acyclovir. Patient denies chest pain or shortness of breath. Patient denies nausea vomiting or diarrhea. Patient denies any urinary burning and frequency. Patient will follow up with oncology services for further management of acute erythroid leukemia. Repeat CBC has been ordered for tomorrow 03/19/2018 I performed an examination of the patient and discussed their management with the Nurse Practitioner. I have reviewed the Nurse Practitioner's notes and agree with the documented findings and plan of care Patient Condition at Discharge: Stable Plan - Discharge Summary Discharge Rx Participant: No New Discharge Prescriptions: New Fluconazole 200 mg PO DAILY #7 tab Levofloxacin [Levaquin] 500 mg PO DAILY #7 tab Acyclovir [Zovirax] 400 mg PO TID #42 cap Mag Hydrox/Al Hydrox/Simeth [Maalox] 30 ml PO TID 14 Days #21 cup Continue Montelukast Sodium [Singulair] 10 mg PO HS Albuterol Inhaler [Ventolin Hfa Inhaler] 2 puff INHALATION RT-Q6H PRN PRN Reason: Shortness Of Breath Metoprolol Succinate (ER) [Toprol XL] 25 mg PO HS Atorvastatin [Lipitor] 80 mg PO PC-SUPPER traZODone HCL 150 mg PO HS Venlafaxine HCl [Effexor XR] 150 mg PO HS Fenofibrate Nanocrystallized [Fenofibrate] 145 mg PO PC-SUPPER Beclomethasone Dipropionate [Qvar 80 mcg] 2 puff INHALATION RT-BID Nitroglycerin Sl Tabs [Nitrostat] 0.4 mg SUBLINGUAL Q5M PRN PRN Reason: Chest Pain Dicyclomine [Bentyl] 20 mg PO TID Divalproex [Depakote] 500 mg PO BID tablet. metFORMIN HCL [Glucophage] 500 mg PO PC-SUPPER #0 Discontinued Fluconazole [Diflucan] 100 mg PO DAILY #14 tablet Levofloxacin [Levaquin] 500 mg PO DAILY #14 tab Acyclovir [Zovirax] 400 mg PO BID #28 tab Discharge Medication List Montelukast Sodium [Singulair] 10 mg PO HS 06/01/16 [History] Albuterol Inhaler [Ventolin Hfa Inhaler] 2 puff INHALATION RT-Q6H PRN 10/15/17 [History] Atorvastatin [Lipitor] 80 mg PO PC-SUPPER 10/15/17 [History] Beclomethasone Dipropionate [Qvar 80 mcg] 2 puff INHALATION RT-BID 10/15/17 [History] Fenofibrate Nanocrystallized [Fenofibrate] 145 mg PO PC-SUPPER 10/15/17 [History] Metoprolol Succinate (ER) [Toprol XL] 25 mg PO HS 10/15/17 [History] Venlafaxine HCl [Effexor XR] 150 mg PO HS 10/15/17 [History] traZODone HCL 150 mg PO HS 10/15/17 [History] Dicyclomine [Bentyl] 20 mg PO TID 01/10/19 [History] Nitroglycerin Sl Tabs [Nitrostat] 0.4 mg SUBLINGUAL Q5M PRN 01/10/19 [History] Divalproex [Depakote] 500 mg PO BID tablet. 01/27/19 [Rx] metFORMIN HCL [Glucophage] 500 mg PO PC-SUPPER #0 02/19/19 [Rx] Acyclovir [Zovirax] 400 mg PO TID #42 cap 03/18/19 [Rx] Fluconazole 200 mg PO DAILY #7 tab 03/18/19 [Rx] Levofloxacin [Levaquin] 500 mg PO DAILY #7 tab 03/18/19 [Rx] Mag Hydrox/Al Hydrox/Simeth [Maalox] 30 ml PO TID 14 Days #21 cup 03/18/19 [Rx] Follow up Appointment(s)/Referral(s): [facility], [NON-STAFF] - 1-2 Days Veronika Dotson MD [Primary Care Provider] - 03/21/19 10:30 am Guille Rojas MD [STAFF PHYSICIAN] - 1 Week Ambulatory/Diagnostic Orders: Complete Blood Count w/diff [LAB.AMB] Time Frame: 1 Day, Location: None Selected Activity/Diet/Wound Care/Special Instructions: Activity as tolerated Diet regular Discharge Disposition: HOME SELF-CARE
--- NOTE | 2019-03-18 20:19 | P.PN ---
Subjective Progress Note Date: 03/18/19 48-year-old male who has a history of anemia that was of unclear etiology. 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 From March 03 the he was admitted to hospital for his induction ch emotherapy of the 7+3 regimens. He did seem to tolerate the regimen well and was following in the outpatient clinic because certainly have dizziness and having falls. Because he was feeling poorly he was further assessed and platelets were less than 10,000 and significant anemia was noted. The patient also had a temperature to 100.8 and calcium was admitted to hospital. He is receiving supportive transfusions of packed red cells and platelets and because of the fever and leukopenia the infectious diseases consultation was requested. The barely had some soft stool but not megan diarrhea per the nursing staff at this time. The patient is in the ICU but is a cardiac care overflow patient at this time. He does not have hypotension or evidence of septic shock. March 14 2019 the patient is feeling somewhat better today. He is awaiting platelets of the thinness he denies further fever or chills. Still very weak. He has generalized malaise. He is denying other new acute symptoms. He is able to eat without nausea or emesis. His loose stool has resolved. 03/16/2019 the patient was doing somewhat better but now is developed evidence of a rash it's minimally pruritic especially over his lower back and a bit onto his extremity. He is without fevers or chills. He is feeling slightly better. There is no rotation is receiving any further transfusion today but did have blood products yesterday. 03/18/2019 the patient is now feeling better. His rash is resolved. He's having no further chills and isolated temperature after blood products. He's feeling considerably better looks forward to going home. He is denying shortness of breath cough sputum production, pain nausea vomiting constipation or diarrhea. It is noted his rash has resolved. Objective - Vital Signs Vital signs: Vital Signs Temp 98.4 F 03/18/19 11:57 Pulse 81 03/18/19 11:57 Resp 14 03/18/19 11:57 BP 118/58 03/18/19 11:57 Pulse Ox 98 03/18/19 11:57 Intake & Output 03/18/19 03/18/19 03/19/19 06:59 18:59 06:59 Intake Total 937 1340 Balance 937 1340 Weight 85.6 kg Intake: IV 600 640 Sodium Chloride 0.9% 1, 600 640 000 ml @ 75 mls/hr IV . [id number] [facility] Rx#:[id number] Intake, IV Titration 100 100 Amount Cefepime 2 gm In Sodium 100 100 Chloride 0.9% 100 ml @ 200 mls/hr IVPB Q12H [facility] Rx#:[id number] Oral 237 600 Other: Voiding Method Toilet Toilet # Voids 2 3 - Exam HEENT: Anicteric conjunctiva are pink and moist nasal mucosa grossly intact without significant lesions, there is no thrush. Neck: The neck is supple there are a few lymph nodes palpable in the neck but no thyromegaly Lungs: Good bilateral air entry without significant crackles or wheezing. There is no significant bronchial sounds. There is no egophony or dullness. Heart: Regular rate and rhythm with an audible S1-S2, no S3 no S4. There is no significant murmur click or rub, PMI was nondisplaced. Abdomen: Positive bowel sounds soft mild tenderness due to the hepatosplenomegaly, no other abdominal mass noted there was no guarding or rebound. Extremities: The upper extremities have excellent pulses they are symmetric, no significant petechiae or telangiectasia. No splinter hemorrhages were noted. The lower extremities are free from significant edema. The peripheral pulses were 2+ and symmetric. There are not large axillary or inguinal lymph nodes palpable at this time Neuro: Awake alert oriented to person place and time. There are no acute new gross focal sensory motor deficits. Skin reveals evidence the resolution of the maculopapular rash. - Labs CBC & Chem 7: 03/18/19 08:45 03/18/19 08:45 Labs: Abnormal Lab Results - Last 24 Hours (Table) 03/17/19 03/18/19 03/18/19 Range/Units 20:34 08:45 08:45 WBC 0.2 L* (3.8-10.6) k/uL RBC 2.62 L (4.30-5.90) m/uL Hgb 7.6 L (13.0-17.5) gm/dL Hct 21.6 L (39.0-53.0) % RDW 16.5 H (11.5-15.5) % Plt Count 21 L (150-450) k/uL Creatinine 0.63 L (0.66-1.25) mg/dL Glucose 150 H (74-99) mg/dL POC Glucose (mg/dL) 178 H (75-99) mg/dL AST 11 L (17-59) U/L Total Protein 6.2 L (6.3-8.2) g/dL Albumin 3.4 L (3.5-5.0) g/dL 03/18/19 Range/Units 11:17 WBC (3.8-10.6) k/uL RBC (4.30-5.90) m/uL Hgb (13.0-17.5) gm/dL Hct (39.0-53.0) % RDW (11.5-15.5) % Plt Count (150-450) k/uL Creatinine (0.66-1.25) mg/dL Glucose (74-99) mg/dL POC Glucose (mg/dL) 160 H (75-99) mg/dL AST (17-59) U/L Total Protein (6.3-8.2) g/dL Albumin (3.5-5.0) g/dL Laboratory Results WBC 0.2 k/uL (3.8-10.6) L* 03/18/19 08:45 RBC 2.62 m/uL (4.30-5.90) L 03/18/19 08:45 Hgb 7.6 gm/dL (13.0-17.5) L 03/18/19 08:45 Hct 21.6 % (39.0-53.0) L 03/18/19 08:45 MCV 82.4 fL (80.0-100.0) 03/18/19 08:45 MCH 29.0 pg (25.0-35.0) 03/18/19 08:45 MCHC 35.2 g/dL (31.0-37.0) 03/18/19 08:45 RDW 16.5 % (11.5-15.5) H 03/18/19 08:45 Plt Count 21 k/uL (150-450) L 03/18/19 08:45 Neutrophils % 17 % 03/13/19 16:40 Lymphocytes % 72 % 03/13/19 16:40 Monocytes % 4 % 03/13/19 16:40 Eosinophils % 3 % 03/13/19 16:40 Basophils % 2 % 03/13/19 16:40 Neutrophils # [employer] SUPERVISOR 03/17/19 09:32 Lymphocytes # 0.1 k/uL (1.0-4.8) L 03/13/19 16:40 Monocytes # 0.0 k/uL (0-1.0) 03/13/19 16:40 Eosinophils # 0.0 k/uL (0-0.7) 03/13/19 16:40 Basophils # 0.0 k/uL (0-0.2) 03/13/19 16:40 Differential Comment 03/18/19 08:45 Manual Slide Review Performed 03/18/19 08:45 Hypochromasia Slight 03/13/19 16:40 Poikilocytosis Slight 03/18/19 08:45 Poikilocytosis (manual Present 03/18/19 08:45 Anisocytosis Slight 03/18/19 08:45 Microcytosis Slight 03/18/19 08:45 Tear Drop Cells Present 03/15/19 07:27 PT 10.8 sec (9.0-12.0) 03/13/19 01:10 INR 1.0 (<1.2) 03/13/19 01:10 APTT 28.1 sec (22.0-30.0) 03/13/19 01:10 Sodium 139 mmol/L (137-145) 03/18/19 08:45 Potassium 3.6 mmol/L (3.5-5.1) 03/18/19 08:45 Chloride 104 mmol/L (98-107) 03/18/19 08:45 Carbon Dioxide 26 mmol/L (22-30) 03/18/19 08:45 Anion Gap 9 mmol/L 03/18/19 08:45 BUN 12 mg/dL (9-20) 03/18/19 08:45 Creatinine 0.63 mg/dL (0.66-1.25) L 03/18/19 08:45 Est GFR (CKD-EPI)AfAm >90 (>60 ml/min/1.73 sqM) 03/18/19 08:45 Est GFR (CKD-EPI)NonAf >90 (>60 ml/min/1.73 sqM) 03/18/19 08:45 Glucose 150 mg/dL (74-99) H 03/18/19 08:45 POC Glucose (mg/dL) 160 mg/dL (75-99) H 03/18/19 11:17 POC Glu Customer Accounts Advisor ID Susanna Linton 03/18/19 11:17 Plasma Lactic Acid Cory 1.6 mmol/L (0.7-2.0) 03/13/19 01:10 Calcium 8.9 mg/dL (8.4-10.2) 03/18/19 08:45 Total Bilirubin 0.6 mg/dL (0.2-1.3) 03/18/19 08:45 AST 11 U/L (17-59) L 03/18/19 08:45 ALT 22 U/L (21-72) 03/18/19 08:45 Alkaline Phosphatase 50 U/L (38-126) 03/18/19 08:45 Troponin I <0.012 ng/mL (0.000-0.034) 03/13/19 01:10 Total Protein 6.2 g/dL (6.3-8.2) L 03/18/19 08:45 Albumin 3.4 g/dL (3.5-5.0) L 03/18/19 08:45 Urine Color Yellow 03/13/19 09:15 Urine Appearance Clear (Clear) 03/13/19 09:15 Urine pH 6.0 (5.0-8.0) 03/13/19 09:15 Ur Specific [place] 1.020 (1.001-1.035) 03/13/19 09:15 Urine Protein Negative (Negative) 03/13/19 09:15 Urine Glucose (UA) Negative (Negative) 03/13/19 09:15 Urine Ketones Negative (Negative) 03/13/19 09:15 Urine Blood Negative (Negative) 03/13/19 09:15 Urine Nitrite Negative (Negative) 03/13/19 09:15 Urine Bilirubin Negative (Negative) 03/13/19 09:15 Urine Urobilinogen <2.0 mg/dL (<2.0) 03/13/19 09:15 Ur Leukocyte Esterase Negative (Negative) 03/13/19 09:15 Vancomycin Trough <5.0 ug/mL 03/16/19 03:56 C. difficile (EIA) Intrp Negative (Negative) 03/13/19 20:27 Blood Type O Positive 03/13/19 01:10 Blood Type Recheck O Pos 03/13/19 01:10 Bld Type Recheck Status No 03/13/19 01:10 Antibody Screen NEGATIVE 03/13/19 01:10 Crossmatch See Detail 03/13/19 01:10 Transfuse Platelets 03/15/2019 03/15/19 11:35 Spec Expiration Date 03/16/2019 - 230903/13/19 01:10 Assessment and Plan Assessment: 48-year-old male who has a several month history of feeling poorly with progressive anemia and evidence of pancytopenia who underwent bone marrow aspiration that confirmed with the acute erythroid leukemia, the patient is now status post his first cycle of chemotherapy of the 7+3 regimen. Presented to Hospital weakness, syncope fever and pancytopenia.Blood cultures have been requested and while cultures are process antibiotic therapy with vancomycin and cefepime have been requested given his current status. He is also receiving acyclovir given his leukemia status. The patient does not appear to have pneumonia or urinary tract infection. Was concerns for the possibility of colitis, however stool is soft but not liquid and is being monitored for further change. Receiving transfusions for supportive therapy. 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 No further diarrhea. He is tolerating the current antibiotic therapy with vancomycin and cefepime well. If his blood cultures remain negative we will de-escalate therapy and remove vancomycin. The care is discussed with the care team, the patient has no proof of remission from his erythroid leukemia and constantly is not a candidate for growth factor therapy. They will continue with transfusion therapy as indicated from oncology. 03/16/2019 the patient is feeling better today however he has now developed a bit of a rash. Concern this could be from the vancomycin therapy in this is discontinued and that he has no positive cultures and ongoing fevers. Benadryl is being given he relates he is feeling somewhat better. He will be monitored to ensure that he is not having difficulties with the cefepime. He did receive transfusion yesterday is also the possibility of this is related to that event. 03/18/2019 the patient is now doing considerably better. He is looking for to going home. Routine antibiotic therapy with leukemia and chemotherapy which includes acyclovir, Levaquin, and fluconazole are given. His rash that he had is completely resolved unclear if this was vancomycin therapy or if this was from blood product transfusions. He forges feeling very well this point in time. He knows to report to the office for follow-up evaluation of his counts and outpatient transfusions as indicated. Evaluation in the future as to the effectiveness of this first round of chemotherapy is in process. He is ready for discharge to home. (1) Fever Status: Acute Priority: High Code(s): R50.9 - FEVER, UNSPECIFIED SNOMED Code(s): 783509812 (2) Pancytopenia Status: Acute Priority: High Code(s): D61.818 - OTHER PANCYTOPENIA SNOMED Code(s): 038678495 (3) Syncope Status: Acute Code(s): R55 - SYNCOPE AND COLLAPSE SNOMED Code(s): 581107936 (4) Acute erythroid leukemia Status: Acute Priority: High Code(s): C94.00 - ACUTE ERYTHROID LEUKEMIA, NOT HAVING ACHIEVED REMISSION SNOMED Code(s): 97876806
== END 2019-03-18 15:10 | disposition home health service (06) | DRG 809 ==
LOC: EC 23:49 → 2SICU 03-13 02:42 → 3NMEDONC 03-15 01:23
PROVIDERS: ADMIT Internal Medicine; ATTEND Internal Medicine
PROC: 30233N1 Transfusion of Nonautologous Red Blood Cells into Peripheral Vein, Percutaneous Approach (ICD-10-PCS; principal; 2019-03-13)
DX: D70.9 Neutropenia, unspecified (principal); C94.00 Acute erythroid leukemia, not having achieved remission; D61.810 Antineoplastic chemotherapy induced pancytopenia; E11.9 Type 2 diabetes mellitus without complications; E78.5 Hyperlipidemia, unspecified; K21.9 Gastro-esophageal reflux disease without esophagitis; M19.90 Unspecified osteoarthritis, unspecified site; G47.33 Obstructive sleep apnea (adult) (pediatric); F31.9 Bipolar disorder, unspecified; F41.9 Anxiety disorder, unspecified; I10 Essential (primary) hypertension; I25.10 Atherosclerotic heart disease of native coronary artery without angina pectoris; R19.7 Diarrhea, unspecified; J45.909 Unspecified asthma, uncomplicated; L29.9 Pruritus, unspecified; R29.6 Repeated falls; G31.9 Degenerative disease of nervous system, unspecified; Z96.9 Presence of functional implant, unspecified; E86.0 Dehydration; M81.0 Age-related osteoporosis without current pathological fracture; T45.1X5A Adverse effect of antineoplastic and immunosuppressive drugs, initial encounter; Z87.442 Personal history of urinary calculi; Z79.899 Other long term (current) drug therapy; Z79.84 Long term (current) use of oral hypoglycemic drugs; Z88.6 Allergy status to analgesic agent; Z91.018 Allergy to other foods; Z88.9 Allergy status to unspecified drugs, medicaments and biological substances; Z91.09 Other allergy status, other than to drugs and biological substances; I25.2 Old myocardial infarction; Z99.89 Dependence on other enabling machines and devices; Z86.19 Personal history of other infectious and parasitic diseases; Z95.5 Presence of coronary angioplasty implant and graft; Z98.890 Other specified postprocedural states; Z87.891 Personal history of nicotine dependence; Z82.49 Family history of ischemic heart disease and other diseases of the circulatory system; Z82.5 Family history of asthma and other chronic lower respiratory diseases; Z83.3 Family history of diabetes mellitus; Z80.1 Family history of malignant neoplasm of trachea, bronchus and lung; Z80.3 Family history of malignant neoplasm of breast; Z83.438 Family history of other disorder of lipoprotein metabolism and other lipidemia; Z83.79 Family history of other diseases of the digestive system; Z81.8 Family history of other mental and behavioral disorders; Z87.19 Personal history of other diseases of the digestive system
CPT/HCPCS: 36415; 70450; 72125; 80048; 80053; 80202; 81003; 83605; 84484; 85025; 85610; 85730; 86850; 86900; 86901; 86920; 87324; 93005; 94640; 96365; 99285

== ENCOUNTER 2019-03-19 22:05 | Inpatient (IN) | payer MEDICARE, OTHER ==
[2019-03-19] MEDS ORDERED: SODIUM CHLORIDE 0.9% 500 ML 500 ML IV STA (22:10)
[2019-03-19] MEDS ORDERED: SODIUM CHLORIDE 0.9% 1,000 ML IV STA (22:10)
[2019-03-19] MEDS ORDERED: ACETAMINOPHEN TAB 500 MG TAB PO STA (22:10)
[2019-03-19 22:32] LABS: Appearance,Urine Clear (Clear); Bilirubin,Urine Negative (Negative); Blood,Urine Negative (Negative); Color,Urine Yellow; Glucose,Urine (UA) Negative (Negative); Ketones,Urine Negative (Negative); Leukocyte Esterase,Urine Negative (Negative); Nitrite,Urine Negative (Negative); Protein,Urine Trace (Negative); Specific Gravity,Urine 1.021 (1.001-1.035)
[2019-03-19 22:33] LABS: Anisocytosis Slight; HCT 20.9 % (39.0-53.0); HGB 7.5 gm/dL (13.0-17.5); MCH 29.2 pg (25.0-35.0); MCHC 35.9 g/dL (31.0-37.0); MCV 81.5 fL (80.0-100.0); Mean Platelet Volume 5.6; Microcytosis Slight; Poikilocytosis Slight; RBC 2.56 m/uL (4.30-5.90); RDW 16.5 % (11.5-15.5)
--- NOTE | 2019-03-19 22:40 | XR ---
EXAMINATION TYPE: XR chest 2V DATE OF EXAM: 03/19/2019 COMPARISON: 03/12/2019 HISTORY: Fever TECHNIQUE: Frontal and lateral views of the chest are obtained. FINDINGS: Heart and mediastinum are normal. Lungs are clear. Diaphragm is normal. Bony thorax appear s normal. There is neural stimulator in the thoracic spine. IMPRESSION: Normal chest no change.
[2019-03-19 22:44] LABS: WBC 0.2 k/uL (3.8-10.6)
[2019-03-19 22:45] LABS: ALT 21 U/L (21-72); AST 14 U/L (17-59); African American GFR (CKD) >90 (>60 ml/min/1.73 sqM); Albumin 3.8 g/dL (3.5-5.0); Alkaline Phosphatase 57 U/L (38-126); Anion Gap 10 mmol/L; Blood Urea Nitrogen 13 mg/dL (9-20); Calcium 9.1 mg/dL (8.4-10.2); Carbon Dioxide 25 mmol/L (22-30); Chloride 101 mmol/L (98-107); Glucose 120 mg/dL (74-99); Magnesium 2.2 mg/dL (1.6-2.3); Potassium 3.9 mmol/L (3.5-5.1); Sodium 136 mmol/L (137-145); Total Bilirubin 0.7 mg/dL (0.2-1.3); Total Protein 6.6 g/dL (6.3-8.2)
--- NOTE | 2019-03-19 22:59 | ED ---
Fever HPI - General Chief Complaint: Fever Stated Complaint: Fever Time Seen by Provider: 03/19/19 22:10 Source: EMS, RN notes reviewed, old records reviewed Mode of arrival: EMS Limitations: no limitations - History of Present Illness Initial Comments: This is a 48-year-old male the ER today. He presents today for evaluation regards to fever fever with known cancer history patient presents today for evaluation regards to neutropenic fever. Patient was just admitted for same. Patient having persistent fever, did take Tylenol prior to arrival. Otherwise no significant complaints aside from weakness. MD Complaint: fever, weakness -: hour(s) Temperature Source: subjective, oral Context: sick contacts, multiple patients with similar symptoms, on chemotherapy Associated Symptoms: chills, myalgias Treatments Prior to Arrival: none, Acetaminophen - Related Data Home Medications Medication Instructions Recorded Confirmed Montelukast Sodium [Singulair] 10 mg PO HS 06/01/16 03/19/19 Albuterol Inhaler [Ventolin Hfa 2 puff INHALATION RT-Q6H PRN 10/15/17 03/19/19 Inhaler] Atorvastatin [Lipitor] 80 mg PO PC-SUPPER 10/15/17 03/19/19 Beclomethasone Dipropionate [Qvar 2 puff INHALATION RT-BID 10/15/17 03/19/19 80 mcg] Fenofibrate Nanocrystallized 145 mg PO PC-SUPPER 10/15/17 03/19/19 [Fenofibrate] Metoprolol Succinate (ER) [Toprol 25 mg PO HS 10/15/17 03/19/19 XL] Venlafaxine HCl [Effexor XR] 150 mg PO HS 10/15/17 03/19/19 traZODone HCL 150 mg PO HS 10/15/17 03/19/19 Dicyclomine [Bentyl] 20 mg PO TID 01/10/19 03/19/19 Nitroglycerin Sl Tabs [Nitrostat] 0.4 mg SUBLINGUAL Q5M PRN 01/10/19 03/19/19 Previous Rx's Medication Instructions Recorded Divalproex [Depakote] 500 mg PO BID tablet. 01/27/19 metFORMIN HCL [Glucophage] 500 mg PO PC-SUPPER #0 02/19/19 Acyclovir [Zovirax] 400 mg PO TID #42 cap 03/18/19 Fluconazole 200 mg PO DAILY #7 tab 03/18/19 Levofloxacin [Levaquin] 500 mg PO DAILY #7 tab 03/18/19 Mag Hydrox/Al Hydrox/Simeth 30 ml PO TID 14 Days #21 cup 03/18/19 [Maalox] Allergies Allergy/AdvReac Type Severity Reaction Status Date / Time naproxen [From Naprosyn] Allergy Unknown Rash/Hives Verified 03/19/19 22:55 adhesive tape Allergy Rash/Hives Verified 03/19/19 22:55 ibuprofen Allergy Itching Verified 03/19/19 22:55 mold Allergy Unknown Verified 03/19/19 22:55 carrot AdvReac Dyspnea Verified 03/19/19 22:55 chocolate flavor AdvReac Dyspnea Verified 03/19/19 22:55 grass pollen-perennial rye, AdvReac Dyspnea Verified 03/19/19 22:55 standar Review of Systems ROS Statement: Those systems with pertinent positive or pertinent negative responses have been documented in the HPI. ROS Other: All systems not noted in ROS Statement are negative. Past Medical History Past Medical History: Asthma, Cancer, Chest Pain / Angina, Diabetes Mellitus, GERD/Reflux, GI Bleed, Hyperlipidemia, Hypertension, Myocardial Infarction (PA), Osteoarthritis (OA), Sleep Apnea/CPAP/BIPAP Additional Past Medical History / Comment(s): Pt recently admitted to [facility] on 02/14/19 with L lower abdominal pain/L urethral stone/pancytopenia under the care of hematology and had BMA. Other hx: AML newly diagnosed, NIDDM type II, neuropathy bilateral hands/feet, colitis, lower GI bleed, ASHLEY with Cpap, chronic cervical/lumbar pain-has neurostimulator to both sites, bilateral carpal tunnel syndrome, occasional tinnitis, "soft" cardiac murmur. ALL Last Myocardial Infarction Date:: 2007 per pt History of Any Multi-Drug Resistant Organisms: None Reported Past Surgical History: Heart Catheterization With Stent, Hernia Repair, Joint Replacement Additional Past Surgical History / Comment(s): Bone marrow aspiration/bx, rt knee arthroscopy x3, R total knee with revisoin, lt knee arthroscopy, cardiac stent x1 2007 per pt, stent placed for kidney stone 07/04/2016. Kidney stent has been removed. COLONOSCOPY. neuro stimulator implant cervial and recent another one in lumbar area, L inguinal hernia repair. Past Anesthesia/Blood Transfusion Reactions: No Reported Reaction Date of Last Stent Placement:: 2007 per pt Past Psychological History: Anxiety, Depression Smoking Status: Former smoker - Past Family History Father Family Medical History: Congestive Heart Failure (CHF), Deep Vein Thrombosis (DVT), Myocardial Infarction (PA), Pulmonary Embolus Additional Family Medical History / Comment(s): PA at age 38. "hole in colon" Mother Family Medical History: Cancer, COPD, Diabetes Mellitus, Hyperlipidemia Additional Family Medical History / Comment(s): Mother had breast and lung cancer. She of lung cancer in her 60s. Sister(s) Family Medical History: Diabetes Mellitus, Liver Disease Additional Family Medical History / Comment(s): bi-polar, anxiety. hysterectomy, fatty liver Brother(s) History Unknown: Yes General Exam Limitations: no limitations General appearance: alert, in no apparent distress Head exam: Present: atraumatic, normocephalic, normal inspection Eye exam: Present: normal appearance, PERRL, EOMI. Absent: scleral icterus, conjunctival injection, periorbital swelling ENT exam: Present: normal exam, mucous membranes moist Neck exam: Present: normal inspection. Absent: tenderness, meningismus, lymphadenopathy Respiratory exam: Present: normal lung sounds bilaterally. Absent: respiratory distress, wheezes, rales, rhonchi, stridor Cardiovascular Exam: Present: regular rate, normal rhythm, normal heart sounds. Absent: systolic murmur, diastolic murmur, rubs, gallop, clicks GI/Abdominal exam: Present: soft, normal bowel sounds. Absent: distended, tenderness, guarding, rebound, rigid Extremities exam: Present: normal inspection, full ROM, normal capillary refill. Absent: tenderness, pedal edema, joint swelling, calf tenderness Back exam: Present: normal inspection Neurological exam: Present: alert, oriented X3, CN II-XII intact Psychiatric exam: Present: normal affect, normal mood Skin exam: Present: warm, dry, intact, normal color. Absent: rash Course Vital Signs 03/19/19 03/19/19 22:06 22:51 Temperature 99 F Pulse Rate 86 89 Respiratory 20 20 Rate Blood Pressure 129/77 122/69 O2 Sat by Pulse 100 97 Oximetry - Reevaluation(s) Reevaluation #1: 03/19/19 22:59 Medical record is reviewed Reevaluation #2: 03/19/19 23:28 Patient remains asymptomatic - Consultations Consultation #1: Spoke with Dr. Dotson who is okay for admission Medical Decision Making - Medical Decision Making 48 male the ER for evaluation of fever. Patient having neutropenia fever here in the ER. Patient will be admitted for oncology evaluation - Lab Data Result diagrams: 03/19/19 22:12 03/19/19 22:12 Lab Results 03/19/19 03/19/19 03/19/19 Range/Units 22:12 22:12 22:12 WBC 0.2 L* (3.8-10.6) k/uL RBC 2.56 L (4.30-5.90) m/uL Hgb 7.5 L (13.0-17.5) gm/dL Hct 20.9 L (39.0-53.0) % MCV 81.5 (80.0-100.0) fL MCH 29.2 (25.0-35.0) pg MCHC 35.9 (31.0-37.0) g/dL RDW 16.5 H (11.5-15.5) % Plt Count 10 L* D (150-450) k/uL Neutrophils # CRANE FOLLOWER Differential Comment Manual Slide Review Performed Poikilocytosis Slight Anisocytosis Slight Microcytosis Slight Sodium 136 L (137-145) mmol/L Potassium 3.9 (3.5-5.1) mmol/L Chloride 101 (98-107) mmol/L Carbon Dioxide 25 (22-30) mmol/L Anion Gap 10 mmol/L BUN 13 (9-20) mg/dL Creatinine 0.63 L (0.66-1.25) mg/dL Est GFR (CKD-EPI)AfAm >90 (>60 ml/min/1.73 sqM) Est GFR (CKD-EPI)NonAf >90 (>60 ml/min/1.73 sqM) Glucose 120 H (74-99) mg/dL Plasma Lactic Acid Cory (0.7-2.0) mmol/L Calcium 9.1 (8.4-10.2) mg/dL Phosphorus 2.6 (2.5-4.5) mg/dL Magnesium 2.2 (1.6-2.3) mg/dL Total Bilirubin 0.7 (0.2-1.3) mg/dL AST 14 L (17-59) U/L ALT 21 (21-72) U/L Alkaline Phosphatase 57 (38-126) U/L Total Protein 6.6 (6.3-8.2) g/dL Albumin 3.8 (3.5-5.0) g/dL Urine Color Urine Appearance (Clear) Urine pH (5.0-8.0) Ur Specific [place] (1.001-1.035) Urine Protein (Negative) Urine Glucose (UA) (Negative) Urine Ketones (Negative) Urine Blood (Negative) Urine Nitrite (Negative) Urine Bilirubin (Negative) Urine Urobilinogen (<2.0) mg/dL Ur Leukocyte Esterase (Negative) Influenza Type A RNA Not Detected (Not Detectd) Influenza Type B (PCR) Not Detected (Not Detectd) 03/19/19 03/19/19 Range/Units 22:12 22:12 WBC (3.8-10.6) k/uL RBC (4.30-5.90) m/uL Hgb (13.0-17.5) gm/dL Hct (39.0-53.0) % MCV (80.0-100.0) fL MCH (25.0-35.0) pg MCHC (31.0-37.0) g/dL RDW (11.5-15.5) % Plt Count (150-450) k/uL Neutrophils # Differential Comment Manual Slide Review Poikilocytosis Anisocytosis Microcytosis Sodium (137-145) mmol/L Potassium (3.5-5.1) mmol/L Chloride (98-107) mmol/L Carbon Dioxide (22-30) mmol/L Anion Gap mmol/L BUN (9-20) mg/dL Creatinine (0.66-1.25) mg/dL Est GFR (CKD-EPI)AfAm (>60 ml/min/1.73 sqM) Est GFR (CKD-EPI)NonAf (>60 ml/min/1.73 sqM) Glucose (74-99) mg/dL Plasma Lactic Acid Cory 1.3 (0.7-2.0) mmol/L Calcium (8.4-10.2) mg/dL Phosphorus (2.5-4.5) mg/dL Magnesium (1.6-2.3) mg/dL Total Bilirubin (0.2-1.3) mg/dL AST (17-59) U/L ALT (21-72) U/L Alkaline Phosphatase (38-126) U/L Total Protein (6.3-8.2) g/dL Albumin (3.5-5.0) g/dL Urine Color Yellow Urine Appearance Clear (Clear) Urine pH 8.0 (5.0-8.0) Ur Specific [place] 1.021 (1.001-1.035) Urine Protein Trace H (Negative) Urine Glucose (UA) Negative (Negative) Urine Ketones Negative (Negative) Urine Blood Negative (Negative) Urine Nitrite Negative (Negative) Urine Bilirubin Negative (Negative) Urine Urobilinogen 2.0 (<2.0) mg/dL Ur Leukocyte Esterase Negative (Negative) Influenza Type A RNA (Not Detectd) Influenza Type B (PCR) (Not Detectd) - Radiology Data Radiology results: report reviewed (Chest x-rays negative for acute disease), image reviewed Disposition Clinical Impression: Fever, Pancytopenia, Thrombocytopenia, Neutropenia Disposition: ADMITTED IP TO THIS HOSP Condition: Fair Is patient prescribed a controlled substance at d/c from ED?: No Referrals: Veronika Dotson MD [Primary Care Provider] - 1-2 days
[2019-03-19 23:01] LABS: Phosphorus 2.6 mg/dL (2.5-4.5)
[2019-03-19 23:15] LABS: Platelet Count 10 k/uL (150-450)
[2019-03-19] MEDS ORDERED: VANCOMYCIN IV PER PHARMACY 1 EACH MISC MISCELLANE PRN (23:25)
[2019-03-19] MEDS ORDERED: PIPERACILLIN-TAZOBACTAM 3.375 GM in SODIUM CHLORIDE 0.9% 100 ML IVPB STA (23:25)
[2019-03-19] MEDS ORDERED: VANCOMYCIN 1,500 MG in SODIUM CHLORIDE 0.9% 250 ML IVPB STA (23:28)
[2019-03-19] MEDS: SODIUM CHLORIDE 0.9% 1,000 ML IV SCH (23:54)
[2019-03-19] MEDS: SODIUM CHLORIDE 0.9% 500 ML 500 ML IV SCH (23:56)
[2019-03-20] MEDS: SODIUM CHLORIDE 0.9% 500 ML 500 ML IV SCH (01:42)
[2019-03-20] MEDS: PIPERACILLIN-TAZOBACTAM 3.375 GM in SODIUM CHLORIDE 0.9% 100 ML IVPB SCH ×3 (01:43→17:56)
[2019-03-20] MEDS: SODIUM CHLORIDE 0.9% 1,000 ML IV SCH ×3 (05:05→23:31)
[2019-03-20 07:39] LABS: Glucose,Whole Blood 89 mg/dL (75-99)
[2019-03-20] MEDS ORDERED: VANCOMYCIN 1,500 MG in SODIUM CHLORIDE 0.9% 250 ML IVPB SCH (08:00)
[2019-03-20 08:27] LABS: Anisocytosis Slight; MCH 29.1 pg (25.0-35.0); MCV 83.1 fL (80.0-100.0); Mean Platelet Volume 6.5; Microcytosis Slight; Poikilocytosis Slight; RBC 2.37 m/uL (4.30-5.90); RDW 16.5 % (11.5-15.5)
[2019-03-20 08:29] LABS: WBC 0.3 k/uL (3.8-10.6)
[2019-03-20 08:30] LABS: Platelet Count 12 k/uL (150-450)
[2019-03-20 08:33] LABS: HCT 19.7 % (39.0-53.0); HGB 6.9 gm/dL (13.0-17.5)
[2019-03-20] MEDS ORDERED: NITROGLYCERIN SL TABS 0.4 MG TAB SUBLINGUAL PRN (08:44)
[2019-03-20] MEDS ORDERED: ALBUTEROL NEBULIZED 2.5 MG/3 ML INHALATION PRN (08:44)
[2019-03-20] MEDS: PANTOPRAZOLE 40 MG/10 ML VIAL IV SCH ×2 (09:02→10:12)
[2019-03-20 09:31] LABS: ALT 29 U/L (21-72); AST 12 U/L (17-59); African American GFR (CKD) >90 (>60 ml/min/1.73 sqM); Albumin 3.4 g/dL (3.5-5.0); Alkaline Phosphatase 54 U/L (38-126); Anion Gap 8 mmol/L; Blood Urea Nitrogen 9 mg/dL (9-20); Calcium 8.6 mg/dL (8.4-10.2); Carbon Dioxide 26 mmol/L (22-30); Chloride 107 mmol/L (98-107); Glucose 87 mg/dL (74-99); Potassium 3.9 mmol/L (3.5-5.1); Sodium 141 mmol/L (137-145); Total Bilirubin 0.7 mg/dL (0.2-1.3); Total Protein 6.2 g/dL (6.3-8.2)
[2019-03-20 10:40] VITALS: BMI 29.5
[2019-03-20 11:07] LABS: Glucose,Whole Blood 91 mg/dL (75-99)
[2019-03-20] MEDS: FLUCONAZOLE 100 MG TAB PO SCH (11:23)
[2019-03-20] MEDS: MAG HYDROX/AL HYDROX/SIMETH 30 ML CUP PO SCH ×3 (11:24→22:07)
[2019-03-20] MEDS: ACYCLOVIR 200 MG CAP PO SCH ×3 (11:24→22:06)
[2019-03-20] MEDS: DICYCLOMINE 20 MG TAB PO SCH ×3 (11:24→22:08)
[2019-03-20] MEDS: DIVALPROEX 500 MG TABLET.DR PO SCH ×2 (11:24→22:07)
--- NOTE | 2019-03-20 12:43 | P.HPIM ---
History of Present Illness H&P Date: 03/20/19 This is a 48-year-old male patient who presented to the ER with a fever after talking to his oncologist. Patient has a known history of acute myeloid leukemia and recent chemotherapy on 03/10/2019. He reports spiking a temperature of 101 F at home at which point he took Tylenol and then called Dr. Rojas, who recommended he go to the ER. Patient states that this is the first elevated temp since discharge on 03/18/2019. He denies any symptoms of dizziness, weakness, lightheadedness, or chills. He denies any rash or open sores on his body. He does complain of mouth soreness when he eats. He has 2 small, white sores on the dorsal side of his tongue. He denies chest pain, shortness of breath, cough. He denies nausea, vomiting, diarrhea. No bowel movement for 2 days. Other past medical history consists of, diabetes type 2, GERD with reflux, hyperlipidemia, hypertension, PR, OA, asthma, chronic cervical/lumbar pain with neurotransmitter to both sides, bilateral carpal tunnel syndrome. Review of Systems As per HPI otherwise unremarkable Past Medical History Past Medical History: Asthma, Cancer, Chest Pain / Angina, Diabetes Mellitus, GERD/Reflux, GI Bleed, Hyperlipidemia, Hypertension, Myocardial Infarction (PR), Osteoarthritis (OA), Sleep Apnea/CPAP/BIPAP Additional Past Medical History / Comment(s): Pt recently admitted to [facility] on 02/14/19 with L lower abdominal pain/L urethral stone/pancytopenia under the care of hematology Other hx: AML newly diagnosed, NIDDM type II, neuropathy bilateral hands/feet, colitis, lower GI bleed, ASHLEY with Cpap, chronic cervical/lumbar pain-has neurostimulator to both sites, bilateral carpal tunnel syndrome, occasional tinnitis, "soft" cardiac murmur. Last Myocardial Infarction Date:: 2007 per pt History of Any Multi-Drug Resistant Organisms: None Reported Past Surgical History: Heart Catheterization With Stent, Hernia Repair, Joint Replacement Additional Past Surgical History / Comment(s): Bone marrow aspiration/bx, rt knee arthroscopy x3, R total knee with revisoin, lt knee arthroscopy, cardiac stent x1 2007 per pt, stent placed for kidney stone 07/04/2016. Kidney stent has been removed. COLONOSCOPY. neuro stimulator implant cervial and recent another one in lumbar area, L inguinal hernia repair. Past Anesthesia/Blood Transfusion Reactions: No Reported Reaction Date of Last Stent Placement:: 2007 per pt Past Psychological History: Anxiety, Bipolar, Depression Additional Psychological History / Comment(s): and lives with the and child. Medically disabled with neuropathy and bipolar disorder. No experience. International travel. 2 petCats in the home instructed not to change the box Smoking Status: Former smoker Past Alcohol Use History: None Reported Additional Past Alcohol Use History / Comment(s): STARTED SMOKING AT AGE 23(1994), 1PPD Past Drug Use History: None Reported - Past Family History Father Family Medical History: Congestive Heart Failure (CHF), Deep Vein Thrombosis (DVT), Myocardial Infarction (PR), Pulmonary Embolus Additional Family Medical History / Comment(s): PR at age 38. "hole in colon" Mother Family Medical History: Cancer, COPD, Diabetes Mellitus, Hyperlipidemia Additional Family Medical History / Comment(s): Mother had breast and lung cancer. She of lung cancer in her 60s. Sister(s) Family Medical History: Diabetes Mellitus, Liver Disease Additional Family Medical History / Comment(s): bi-polar, anxiety. hysterectomy, fatty liver Brother(s) History Unknown: Yes Medications and Allergies Home Medications Medication Instructions Recorded Confirmed Type Montelukast Sodium [Singulair] 10 mg PO HS 06/01/16 03/19/19 History Albuterol Inhaler [Ventolin Hfa 2 puff INHALATION RT-Q6H PRN 10/15/17 03/19/19 History Inhaler] Atorvastatin [Lipitor] 80 mg PO PC-SUPPER 10/15/17 03/19/19 History Beclomethasone Dipropionate [Qvar 2 puff INHALATION RT-BID 10/15/17 03/19/19 History 80 mcg] Fenofibrate Nanocrystallized 145 mg PO PC-SUPPER 10/15/17 03/19/19 History [Fenofibrate] Metoprolol Succinate (ER) [Toprol 25 mg PO HS 10/15/17 03/19/19 History XL] Venlafaxine HCl [Effexor XR] 150 mg PO HS 10/15/17 03/19/19 History traZODone HCL 150 mg PO HS 10/15/17 03/19/19 History Dicyclomine [Bentyl] 20 mg PO TID 01/10/19 03/19/19 History Nitroglycerin Sl Tabs [Nitrostat] 0.4 mg SUBLINGUAL Q5M PRN 01/10/19 03/19/19 History Divalproex [Depakote] 500 mg PO BID tablet. 01/27/19 03/19/19 Rx metFORMIN HCL [Glucophage] 500 mg PO PC-SUPPER #0 02/19/19 03/19/19 Rx Acyclovir [Zovirax] 400 mg PO TID #42 cap 03/18/19 03/19/19 Rx Fluconazole 200 mg PO DAILY #7 tab 03/18/19 03/19/19 Rx Levofloxacin [Levaquin] 500 mg PO DAILY #7 tab 03/18/19 03/19/19 Rx Mag Hydrox/Al Hydrox/Simeth 30 ml PO TID 14 Days #21 cup 03/18/19 03/19/19 Rx [Maalox] Non Formulary Drug PO QID 03/20/19 History Allergies Allergy/AdvReac Type Severity Reaction Status Date / Time naproxen [From Naprosyn] Allergy Unknown Rash/Hives Verified 03/20/19 00:54 adhesive tape Allergy Rash/Hives Verified 03/20/19 00:54 ibuprofen Allergy Itching Verified 03/20/19 00:54 mold Allergy Unknown Verified 03/20/19 00:54 vancomycin Allergy Rash/Hives Verified 03/20/19 00:54 carrot AdvReac Dyspnea Verified 03/20/19 00:54 chocolate flavor AdvReac Dyspnea Verified 03/20/19 00:54 grass pollen-perennial rye, AdvReac Dyspnea Verified 03/20/19 00:54 standar Physical Exam Vitals: Vital Signs Temp Pulse Pulse Resp BP BP Pulse Ox 03/20/19 11:50 98.4 F 74 16 117/62 99 03/20/19 11:20 98.4 F 88 16 122/66 100 03/20/19 11:10 98.4 F 88 16 122/66 100 03/20/19 08:20 98.5 F 83 16 152/64 03/20/19 05:37 99.0 F 86 16 99/60 99 03/20/19 00:47 98.5 F 89 22 125/61 100 03/19/19 23:56 99.4 F 82 17 119/67 97 03/19/19 22:51 89 20 122/69 97 03/19/19 22:06 99 F 86 20 129/77 100 Intake and Output 03/19/19 03/20/19 03/20/19 22:59 06:59 14:59 Intake Total 1090 0 Output Total 850 Balance 240 0 Intake: Intake, IV Titration 500 Amount Sodium Chloride 0.9% 500 500 ml 500 ml @ 1000 mls/hr IV Q[facility]M [facility] Rx#:[id number] Oral 590 Blood Product 0 Rc Irr As1 Unit 0 [id number] Output: Urine 850 Other: Voiding Method Toilet Weight 90.718 kg 90.718 kg Head normocephalic Neck supple Lungs clear to auscultation bilaterally no wheezing or crackles Heart regular rate and rhythm S1-S2, no rub or gallop Abdomen is soft nontender nondistended positive bowel sounds no hepatosplenomegaly Extremities no edema Neuro alert and orientated to 3 Dorsal side of right tongue has 2 small, white sores. Looks to have granulating tissue. Results CBC & Chem 7: 03/20/19 07:51 03/20/19 07:51 Labs: Abnormal Lab Results - Last 24 Hours (Table) 03/19/19 03/19/19 03/19/19 Range/Units 22:12 22:12 22:12 WBC 0.2 L* (3.8-10.6) k/uL RBC 2.56 L (4.30-5.90) m/uL Hgb 7.5 L (13.0-17.5) gm/dL Hct 20.9 L (39.0-53.0) % RDW 16.5 H (11.5-15.5) % Plt Count 10 L* D (150-450) k/uL Sodium 136 L (137-145) mmol/L Creatinine 0.63 L (0.66-1.25) mg/dL Glucose 120 H (74-99) mg/dL AST 14 L (17-59) U/L Total Protein (6.3-8.2) g/dL Albumin (3.5-5.0) g/dL Urine Protein Trace H (Negative) Crossmatch 10/24/19 10/24/19 10/24/19 Range/Units 07:51 07:51 07:51 WBC 0.3 L* (3.8-10.6) k/uL RBC 2.37 L (4.30-5.90) m/uL Hgb 6.9 L* (13.0-17.5) gm/dL Hct 19.7 L* (39.0-53.0) % RDW 16.5 H (11.5-15.5) % Plt Count 12 L* (150-450) k/uL Sodium (137-145) mmol/L Creatinine 0.62 L (0.66-1.25) mg/dL Glucose (74-99) mg/dL AST 12 L (17-59) U/L Total Protein 6.2 L (6.3-8.2) g/dL Albumin 3.4 L (3.5-5.0) g/dL Urine Protein (Negative) Crossmatch See Detail Thrombosis Risk Factor Assmnt - Choose All That Apply Any of the Below Risk Factors Present?: Yes Each Factor Represents 1 point: Age 41-60 years, Obesity (BMI >25) Other Risk Factors: Yes Each Risk Factor Represents 2 Points: Malignancy Other congenital or acquired thrombophilia - If yes, enter type in comment: No Thrombosis Risk Factor Assessment Total Risk Factor Score: 4 Thrombosis Risk Factor Assessment Level: Moderate Risk Assessment and Plan Assessment: 1. Febrile. Patient was instructed by Dr. Rojas to come in to the hospital for further monitoring due to persistent fevers. Infectious disease consulted. Blood cultures pending. Chest X-ray read, normal no change. Temperature max was 99F in the ER. Patient on Zosyn, fluconazole. Hemoglobin is 6.9, platelet count 12. 2. 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 WBC is 0.3 3. Acute myeloid leukemia. Diagnosis with bone marrow bx on 02/14/2019. First round of chemo completed on 03/10/2019 4. History of essential hypertension. Home medications Lopressor resumed parameters. 5. History of diabetes mellitus type 2. Will hold home metformin and add sliding scale 6. History of depression on Effexor XL 7. History of left ureteral calculus. Stent placed in 2017. Stent has since been removed. 8. History of coronary artery disease. Cardiac stent 1 in 2007 9. History of obstructive sleep apnea maintained on CPAP 10. History of hyperlipidemia. Maintain on Lipitor and fenofibrate 11. Chronic cervical and lumbar pain. Neurostimulator to both sites maintained. DVT prophylaxis held due to thrombocytopenia. GI prophylaxis Protonix Time with Patient: Greater than 30 (I performed an examination of the patient and discussed their management with the Nurse Practitioner. I have reviewed the Nurse Practitioner's notes and agree with the documented findings and plan of careGreater than 60% of the total time spent in counseling and coordination of care)
--- NOTE | 2019-03-20 12:50 | P.CONS ---
History of Present Illness - Reason for Consult Consult date: 03/20/19 Febrile neutropenia, pancytopenia, AML - History of Present Illness Mister Burnham is a very pleasant 48-year-old male patient of Dr. Rojas recently diagnosed with acute erythroid leukemia. He had induction chemo with 7+3 regimen, 03/03-03/10, And was then discharged with outpatient follow-up with transfusion support and antibiotic prophylaxis. He was recently admitted with fever, that is felt to be more likely due to blood transfusion. He received IV antibiotics, and was discharged on 03/18/19 on oral antibiotic prophylaxis after cultures were negative. The patient developed a fever again of 101+ at home, associated with mild chills, as well as weakness. He therefore came back to the emergency room, and was found to be mildly hypotensive. He was therefore admitted for further management. He denied any localizing signs such as nasal congestion, cough, abdominal pain, change in bowel Habits or urinary complaints Review of Systems Constitutional: Reports chills, Reports fatigue, Reports fever Eyes: denies blurred vision, denies pain Ears: deny: decreased hearing, ear discharge, earache, tinnitus Ears, nose, mouth and throat: Denies headache, Denies sore throat Cardiovascular: Reports dyspnea on exertion Respiratory: Reports dyspnea Gastrointestinal: Denies abdominal pain, Denies diarrhea, Denies nausea, Denies vomiting Genitourinary: Reports as per HPI Musculoskeletal: Reports muscle weakness Integumentary: Denies pruritus, Denies rash Neurological: Reports weakness, Denies numbness Psychiatric: Reports as per HPI (History of multiple psychiatric issues, controlled well on current medication) Endocrine: Reports fatigue Hematologic/Lymphatic: Reports as per HPI Past Medical History Past Medical History: Asthma, Cancer, Chest Pain / Angina, Diabetes Mellitus, GERD/Reflux, GI Bleed, Hyperlipidemia, Hypertension, Myocardial Infarction (IA), Osteoarthritis (OA), Sleep Apnea/CPAP/BIPAP Additional Past Medical History / Comment(s): Pt recently admitted to [facility] on 02/14/19 with L lower abdominal pain/L urethral stone/pancytopenia under the care of hematology Other hx: AML newly diagnosed, NIDDM type II, neuropathy bilateral hands/feet, colitis, lower GI bleed, ASHLEY with Cpap, chronic cervical/lumbar pain-has neurostimulator to both sites, bilateral carpal tunnel syndrome, occasional tinnitis, "soft" cardiac murmur. Last Myocardial Infarction Date:: 2007 per pt History of Any Multi-Drug Resistant Organisms: None Reported Past Surgical History: Heart Catheterization With Stent, Hernia Repair, Joint Replacement Additional Past Surgical History / Comment(s): Bone marrow aspiration/bx, rt knee arthroscopy x3, R total knee with revisoin, lt knee arthroscopy, cardiac stent x1 2007 per pt, stent placed for kidney stone 07/04/2016. Kidney stent has been removed. COLONOSCOPY. neuro stimulator implant cervial and recent another one in lumbar area, L inguinal hernia repair. Past Anesthesia/Blood Transfusion Reactions: No Reported Reaction Date of Last Stent Placement:: 2007 per pt Past Psychological History: Anxiety, Bipolar, Depression Additional Psychological History / Comment(s): and lives with the and child. Medically disabled with neuropathy and bipolar disorder. No experience. International travel. 2 petCats in the home instructed not to change the box Smoking Status: Former smoker Past Alcohol Use History: None Reported Additional Past Alcohol Use History / Comment(s): STARTED SMOKING AT AGE 23(1994), 1PPD Past Drug Use History: None Reported - Past Family History Father Family Medical History: Congestive Heart Failure (CHF), Deep Vein Thrombosis (DVT), Myocardial Infarction (IA), Pulmonary Embolus Additional Family Medical History / Comment(s): IA at age 38. "hole in colon" Mother Family Medical History: Cancer, COPD, Diabetes Mellitus, Hyperlipidemia Additional Family Medical History / Comment(s): Mother had breast and lung cancer. She of lung cancer in her 60s. Sister(s) Family Medical History: Diabetes Mellitus, Liver Disease Additional Family Medical History / Comment(s): bi-polar, anxiety. hysterectomy, fatty liver Brother(s) History Unknown: Yes Medications and Allergies Home Medications Medication Instructions Recorded Confirmed Type Montelukast Sodium [Singulair] 10 mg PO HS 06/01/16 03/19/19 History Albuterol Inhaler [Ventolin Hfa 2 puff INHALATION RT-Q6H PRN 10/15/17 03/19/19 History Inhaler] Atorvastatin [Lipitor] 80 mg PO PC-SUPPER 10/15/17 03/19/19 History Beclomethasone Dipropionate [Qvar 2 puff INHALATION RT-BID 10/15/17 03/19/19 History 80 mcg] Fenofibrate Nanocrystallized 145 mg PO PC-SUPPER 10/15/17 03/19/19 History [Fenofibrate] Metoprolol Succinate (ER) [Toprol 25 mg PO HS 10/15/17 03/19/19 History XL] Venlafaxine HCl [Effexor XR] 150 mg PO HS 10/15/17 03/19/19 History traZODone HCL 150 mg PO HS 10/15/17 03/19/19 History Dicyclomine [Bentyl] 20 mg PO TID 01/10/19 03/19/19 History Nitroglycerin Sl Tabs [Nitrostat] 0.4 mg SUBLINGUAL Q5M PRN 01/10/19 03/19/19 History Divalproex [Depakote] 500 mg PO BID tablet. 01/27/19 03/19/19 Rx metFORMIN HCL [Glucophage] 500 mg PO PC-SUPPER #0 02/19/19 03/19/19 Rx Acyclovir [Zovirax] 400 mg PO TID #42 cap 03/18/19 03/19/19 Rx Fluconazole 200 mg PO DAILY #7 tab 03/18/19 03/19/19 Rx Levofloxacin [Levaquin] 500 mg PO DAILY #7 tab 03/18/19 03/19/19 Rx Mag Hydrox/Al Hydrox/Simeth 30 ml PO TID 14 Days #21 cup 03/18/19 03/19/19 Rx [Maalox] Non Formulary Drug PO QID 03/20/19 History Allergies Allergy/AdvReac Type Severity Reaction Status Date / Time naproxen [From Naprosyn] Allergy Unknown Rash/Hives Verified 03/20/19 00:54 adhesive tape Allergy Rash/Hives Verified 03/20/19 00:54 ibuprofen Allergy Itching Verified 03/20/19 00:54 mold Allergy Unknown Verified 03/20/19 00:54 vancomycin Allergy Rash/Hives Verified 03/20/19 00:54 carrot AdvReac Dyspnea Verified 03/20/19 00:54 chocolate flavor AdvReac Dyspnea Verified 03/20/19 00:54 grass pollen-perennial rye, AdvReac Dyspnea Verified 03/20/19 00:54 standar Physical Exam Vitals: Vital Signs Temp Pulse Pulse Resp BP BP Pulse Ox 03/20/19 08:20 98.5 F 83 16 152/64 03/20/19 05:37 99.0 F 86 16 99/60 99 03/20/19 00:47 98.5 F 89 22 125/61 100 03/19/19 23:56 99.4 F 82 17 119/67 97 03/19/19 22:51 89 20 122/69 97 03/19/19 22:06 99 F 86 20 129/77 100 Intake and Output 03/19/19 03/20/19 03/20/19 22:59 06:59 14:59 Intake Total 1090 Output Total 850 Balance 240 Intake: Intake, IV Titration 500 Amount Sodium Chloride 0.9% 500 500 ml 500 ml @ 1000 mls/hr IV Q35M [facility] Rx#:[id number] Oral 590 Output: Urine 850 Other: Voiding Method Toilet Weight 90.718 kg - Constitutional General appearance: no acute distress - EENT Eyes: EOMI, PERRLA ENT: hearing grossly normal, normal oropharynx - Neck Neck: no lymphadenopathy Thyroid: bilateral: normal size - Respiratory Respiratory: bilateral: CTA - Cardiovascular Rhythm: regular Heart sounds: normal: S1, S2 - Gastrointestinal General gastrointestinal: normal bowel sounds, soft - Integumentary Integumentary: normal - Neurologic Neurologic: CNII-XII intact - Musculoskeletal Musculoskeletal: generalized weakness, strength equal bilaterally - Psychiatric Psychiatric: A&O x's 3, appropriate affect Results CBC & Chem 7: 03/20/19 07:51 03/20/19 07:51 Labs: Abnormal Lab Results - Last 24 Hours (Table) 03/19/19 03/19/19 03/19/19 Range/Units 22:12 22:12 22:12 WBC 0.2 L* (3.8-10.6) k/uL RBC 2.56 L (4.30-5.90) m/uL Hgb 7.5 L (13.0-17.5) gm/dL Hct 20.9 L (39.0-53.0) % RDW 16.5 H (11.5-15.5) % Plt Count 10 L* D (150-450) k/uL Sodium 136 L (137-145) mmol/L Creatinine 0.63 L (0.66-1.25) mg/dL Glucose 120 H (74-99) mg/dL AST 14 L (17-59) U/L Urine Protein Trace H (Negative) 03/20/19 Range/Units 07:51 WBC (3.8-10.6) k/uL RBC 2.37 L (4.30-5.90) m/uL Hgb (13.0-17.5) gm/dL Hct (39.0-53.0) % RDW 16.5 H (11.5-15.5) % Plt Count (150-450) k/uL Sodium (137-145) mmol/L Creatinine (0.66-1.25) mg/dL Glucose (74-99) mg/dL AST (17-59) U/L Urine Protein (Negative) Chest x-ray: report reviewed Assessment and Plan Plan: #1. Febrile neutropenia the patient has developed recurrent fever, after being discharged on oral antibiotic prophylaxis. He does not have any definite localizing signs. As neutropenia still persistent, and the patient also had some hypertension, he was admitted for further management and started on IV antibiotics. - Agree with above management - Repeat cultures -ID consult - As the patient developed recurrent fever despite aggressive oral anti-biotic prophylaxis, it would be reasonable to keep him on IV antibiotics until WBC recovers. This should generally occur within the next 3-5 days #2. Pancytopeniadue to chemotherapy effect. Continue transfusion support for hemoglobin less than 7, and platelets less than 10, in the absence of any active bleeding. Hemoglobin was 6.9 today and 1 unit PRBC will be ordered. Continue to monitor and transfuse as needed. #3. AML the patient has completed induction chemotherapy and we're awaiting recovery of counts, which is expected in the next 3-5 days. #4. Defer to the admitting service and other consultants for management of his other medical problems
[2019-03-20] MEDS: MAG HYDROX/AL HYDROX/SIMETH 30 ML, LIDOCAINE VISCOUS 30 ML, diphenhydrAMINE ELIXIR 75 M... PO SCH ×8 (16:33→22:08)
[2019-03-20 17:11] LABS: Glucose,Whole Blood 128 mg/dL (75-99)
[2019-03-20] MEDS: INSULIN ASPART (NovoLOG) 100 UNIT/ML VIAL SQ SCH ×2 (17:22→20:42)
[2019-03-20] MEDS: FENOFIBRATE 160 MG TAB PO SCH (17:35)
[2019-03-20] MEDS: ATORVASTATIN 80 MG TAB PO SCH (17:35)
[2019-03-20 19:52] LABS: Glucose,Whole Blood 143 mg/dL (75-99)
[2019-03-20] MEDS: FLUTICASONE 110 MCG INHALER INHALATION SCH (20:16)
[2019-03-20] MEDS: MONTELUKAST 10 MG TAB PO SCH (20:40)
[2019-03-20] MEDS: CEFEPIME 2 GM in SODIUM CHLORIDE 0.9% 100 ML IVPB SCH (20:40)
[2019-03-20] MEDS: traZODone HCL 50 MG TAB PO SCH (20:41)
[2019-03-20] MEDS: METOPROLOL SUCCINATE (ER) 25 MG TAB.ER.24H PO SCH (20:41)
[2019-03-20] MEDS: VENLAFAXINE HCL ER 150 MG CAP PO SCH (22:07)
[2019-03-21] MEDS: CEFEPIME 2 GM in SODIUM CHLORIDE 0.9% 100 ML IVPB SCH ×3 (03:28→18:44)
[2019-03-21 06:17] LABS: MCH 28.1 pg (25.0-35.0); MCHC 34.2 g/dL (31.0-37.0); MCV 82.3 fL (80.0-100.0); Microcytosis Slight; Poikilocytosis Slight; RBC 2.38 m/uL (4.30-5.90)
[2019-03-21 06:20] LABS: HCT 19.6 % (39.0-53.0); HGB 6.7 gm/dL (13.0-17.5)
[2019-03-21 06:21] LABS: WBC 0.3 k/uL (3.8-10.6)
[2019-03-21 06:22] LABS: Platelet Count 9 k/uL (150-450)
[2019-03-21 06:28] LABS: ALT 29 U/L (21-72); AST 14 U/L (17-59); African American GFR (CKD) >90 (>60 ml/min/1.73 sqM); Albumin 3.3 g/dL (3.5-5.0); Alkaline Phosphatase 51 U/L (38-126); Anion Gap 8 mmol/L; Blood Urea Nitrogen 10 mg/dL (9-20); Calcium 8.5 mg/dL (8.4-10.2); Carbon Dioxide 25 mmol/L (22-30); Chloride 107 mmol/L (98-107); Glucose 100 mg/dL (74-99); Potassium 4.3 mmol/L (3.5-5.1); Sodium 140 mmol/L (137-145); Total Bilirubin 0.7 mg/dL (0.2-1.3)
[2019-03-21 07:17] LABS: Glucose,Whole Blood 104 mg/dL (75-99)
[2019-03-21] MEDS: ACYCLOVIR 200 MG CAP PO SCH ×3 (08:10→22:32)
[2019-03-21] MEDS: PANTOPRAZOLE 40 MG TABLET PO SCH (08:11)
[2019-03-21] MEDS: DIVALPROEX 500 MG TABLET.DR PO SCH ×2 (08:11→22:56)
[2019-03-21] MEDS: FLUCONAZOLE 100 MG TAB PO SCH (08:11)
[2019-03-21] MEDS: DICYCLOMINE 20 MG TAB PO SCH ×3 (08:11→22:56)
[2019-03-21] MEDS: MAG HYDROX/AL HYDROX/SIMETH 30 ML, LIDOCAINE VISCOUS 30 ML, diphenhydrAMINE ELIXIR 75 M... PO SCH ×12 (08:12→22:56)
--- NOTE | 2019-03-21 08:55 | P.PN ---
Subjective Progress Note Date: 03/21/19 This is a 48-year-old male patient who presented to the ER with a fever after talking to his oncologist. Patient has a known history of acute myeloid leukemia and recent chemotherapy on 03/10/2019. He reports spiking a temperature of 101 F at home at which point he took Tylenol and then called Dr. Rojas, who recommended he go to the ER. Patient states that this is the first elevated temp since discharge on 03/18/2019. He denies any symptoms of dizziness, weakness, lightheadedness, or chills. He denies any rash or open sores on his body. He does complain of mouth soreness when he eats. He has 2 small, white sores on the dorsal side of his tongue. He denies chest pain, shortness of breath, cough. He denies nausea, vomiting, diarrhea. No bowel movement for 2 days. Other past medical history consists of, diabetes type 2, GERD with reflux, hyperlipidemia, hypertension, NM, OA, asthma, chronic cervical/lumbar pain with neurotransmitter to both sides, bilateral carpal tunnel syndrome. On 03/21/2019 patient alert and oriented 3. Patient antibiotics switched to Maxipime per ID. The blood cell remains low at 0.3. HEENT: 6.7 and platelets 9. Patient to receive 1 unit PVCs and 1 unit of platelets prior oncology services. Patient denies chest pain or shortness of breath. Patient denies nausea vomiting or diarrhea. Patient denies any urinary burning or frequency Objective - Vital Signs Vital signs: Vital Signs Temp 98.5 F 03/21/19 08:22 Pulse 88 03/21/19 08:22 Resp 16 03/21/19 08:22 BP 122/86 03/21/19 08:22 Pulse Ox 99 03/21/19 08:22 Intake & Output 03/20/19 03/21/19 03/21/19 18:59 06:59 18:59 Intake Total 310 1960 Output Total 300 650 950 Balance 10 1310 -950 Weight 90.718 kg Intake: Intake, IV Titration 1370 Amount Cefepime 2 gm In Sodium 200 Chloride 0.9% 100 ml @ 200 mls/hr IVPB Q8H [facility] Rx#:[id number] Sodium Chloride 0.9% 1, 1170 000 ml @ 130 mls/hr IV . Q7H42M [facility] Rx#:[id number] Oral 590 Blood Product 310 Rc Irr As1 Unit 310 [id number] Output: Urine 300 650 950 Other: Voiding Method Toilet Toilet # Voids 2 1 # Bowel Movements 1 - Exam Head normocephalic Neck supple Lungs clear to auscultation bilaterally no wheezing or crackles Heart regular rate and rhythm S1-S2, no rub or gallop Abdomen is soft nontender nondistended positive bowel sounds no hepatosplenomegaly Extremities no edema Neuro alert and orientated to 3 Dorsal side of right tongue has 2 small, white sores. Looks to have granulating tissue. - Labs CBC & Chem 7: 03/21/19 05:49 03/21/19 05:49 Labs: Abnormal Lab Results - Last 24 Hours (Table) 03/20/19 03/20/19 03/20/19 Range/Units 07:51 07:51 07:51 WBC (3.8-10.6) k/uL RBC (4.30-5.90) m/uL Hgb 6.9 L* (13.0-17.5) gm/dL Hct 19.7 L* (39.0-53.0) % RDW (11.5-15.5) % Plt Count (150-450) k/uL Creatinine 0.62 L (0.66-1.25) mg/dL Glucose (74-99) mg/dL POC Glucose (mg/dL) (75-99) mg/dL AST 12 L (17-59) U/L Total Protein 6.2 L (6.3-8.2) g/dL Albumin 3.4 L (3.5-5.0) g/dL Crossmatch See Detail 03/20/19 03/20/19 03/21/19 Range/Units 17:09 19:50 05:49 WBC 0.3 L* (3.8-10.6) k/uL RBC 2.38 L (4.30-5.90) m/uL Hgb 6.7 L* (13.0-17.5) gm/dL Hct 19.6 L* (39.0-53.0) % RDW 16.0 H (11.5-15.5) % Plt Count 9 L* (150-450) k/uL Creatinine (0.66-1.25) mg/dL Glucose (74-99) mg/dL POC Glucose (mg/dL) 128 H 143 H (75-99) mg/dL AST (17-59) U/L Total Protein (6.3-8.2) g/dL Albumin (3.5-5.0) g/dL Crossmatch 03/21/19 03/21/19 Range/Units 05:49 07:15 WBC (3.8-10.6) k/uL RBC (4.30-5.90) m/uL Hgb (13.0-17.5) gm/dL Hct (39.0-53.0) % RDW (11.5-15.5) % Plt Count (150-450) k/uL Creatinine 0.65 L (0.66-1.25) mg/dL Glucose 100 H (74-99) mg/dL POC Glucose (mg/dL) 104 H (75-99) mg/dL AST 14 L (17-59) U/L Total Protein 6.0 L (6.3-8.2) g/dL Albumin 3.3 L (3.5-5.0) g/dL Crossmatch Microbiology - Last 24 Hours (Table) 03/19/19 22:37 Blood Culture - Preliminary Blood No Growth after 24 hours 03/20/19 09:30 Urine Culture - Preliminary Urine,Clean Catch Assessment and Plan Assessment: 1. Febrile. Patient was instructed by Dr. Rojas to come in to the hospital for further monitoring due to persistent fevers. Infectious disease consulted. Blood cultures pending. Chest X-ray read, normal no change. Temperature max was 99F in the ER. Patient on Zosyn, fluconazole. Hemoglobin is 6.9, platelet count 12. Antibiotics adjusted to Maxipime per ID 2. 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 WBC is 0.3 3. Acute myeloid leukemia. Diagnosis with bone marrow bx on 02/14/2019. First round of chemo completed on 03/10/2019 4. History of essential hypertension. Home medications Lopressor resumed parameters. 5. History of diabetes mellitus type 2. Will hold home metformin and add sliding scale 6. History of depression on Effexor XL 7. History of left ureteral calculus. Stent placed in 2017. Stent has since been removed. 8. History of coronary artery disease. Cardiac stent 1 in 2007 9. History of obstructive sleep apnea maintained on CPAP 10. History of hyperlipidemia. Maintain on Lipitor and fenofibrate 11. Chronic cervical and lumbar pain. Neurostimulator to both sites maintained. DVT prophylaxis SCDs held due to thrombocytopenia. GI prophylaxis Protonix I performed an examination of the patient and discussed their management with the Nurse Practitioner. I have reviewed the Nurse Practitioner's notes and agree with the documented findings and plan of care
[2019-03-21] MEDS: INSULIN ASPART (NovoLOG) 100 UNIT/ML VIAL SQ SCH ×4 (09:17→22:28)
[2019-03-21] MEDS: SODIUM CHLORIDE 0.9% 1,000 ML IV SCH ×2 (09:20→16:45)
[2019-03-21] MEDS: FLUTICASONE 110 MCG INHALER INHALATION SCH ×2 (09:30→20:22)
[2019-03-21 11:25] LABS: Glucose,Whole Blood 106 mg/dL (75-99)
--- NOTE | 2019-03-21 12:24 | P.CONS ---
History of Present Illness - Reason for Consult Consult date: 03/21/19 fever, chemo - History of Present Illness This is a 48-year-old male recently seen on his hospitalization March 13 to the . He was recently diagnosed with acute erythroid leukemia and had induction chemotherapy 7+3 regime March 03 through March 10. During his recent hospitalization he was treated for fever, septic shock , pancytopenia and was discharged home on 03/18 to continue on Levaquin and fluconazole and acyclovir. Patient presented after developing fever 101 at home. He took Tylenol and contacted the oncology and was instructed to come in the hospital. Patient has been seen by Dr. Rojas with recommendations to keep IV antibiotics until WBC count recovers. WBC 0.3, hemoglobin 6.7 and platelet count 9. Electrolytes within normal limits, creatinine 0.65, albumin 3.3. He is status post transfusion of 1 unit packed RBCs last night and is receiving a second unit today. Urine and blood cultures are in progress. He was initially on Zosyn transitioned to cefepime. Review of Systems Constitutional: Reports fatigue, Reports fever, Reports weakness, Denies anorexia, Denies chills, Denies poor appetite Eyes: denies blurred vision, denies pain Ears, nose, mouth and throat: Reports mouth pain, Denies dental pain, Denies dysphagia, Denies headache, Denies nasal congestion, Denies nasal discharge, Denies sore throat, Denies vertigo Cardiovascular: Denies chest pain, Denies decreased exercise tolerance, Denies dyspnea on exertion, Denies lightheadedness, Denies shortness of breath, Denies syncope Respiratory: Denies cough, Denies cough with sputum, Denies dyspnea, Denies excessive sputum, Denies hemoptysis, Denies home oxygen, Denies wheezing Gastrointestinal: Denies abdominal pain, Denies diarrhea, Denies loss of appetite, Denies nausea, Denies vomiting Genitourinary: Denies dysuria, Denies flank pain, Denies urinary frequency, Denies urinary retention Musculoskeletal: Denies frequent falls, Denies gait dysfunction, Denies muscle weakness, Denies myalgias Integumentary: Denies pruritus, Denies rash, Denies wounds Neurological: Reports as per HPI, Denies change in mentation, Denies change in speech, Denies seizures Psychiatric: Denies anxiety, Denies depression Endocrine: Denies fatigue, Denies weight change Past Medical History Past Medical History: Asthma, Cancer, Chest Pain / Angina, Diabetes Mellitus, GERD/Reflux, GI Bleed, Hyperlipidemia, Hypertension, Myocardial Infarction (OK), Osteoarthritis (OA), Sleep Apnea/CPAP/BIPAP Additional Past Medical History / Comment(s): Pt recently admitted to [facility] on 02/14/19 with L lower abdominal pain/L urethral stone/pancytopenia under the care of hematology Other hx: AML newly diagnosed, NIDDM type II, neuropathy bilateral hands/feet, colitis, lower GI bleed, ASHLEY with Cpap, chronic cervical/lumbar pain-has neurostimulator to both sites, bilateral carpal tunnel syndrome, occasional tinnitis, "soft" cardiac murmur. Last Myocardial Infarction Date:: 2007 per pt History of Any Multi-Drug Resistant Organisms: None Reported Past Surgical History: Heart Catheterization With Stent, Hernia Repair, Joint Replacement Additional Past Surgical History / Comment(s): Bone marrow aspiration/bx, rt knee arthroscopy x3, R total knee with revisoin, lt knee arthroscopy, cardiac stent x1 2008 per pt, stent placed for kidney stone 07/04/2016. Kidney stent has been removed. COLONOSCOPY. neuro stimulator implant cervial and recent another one in lumbar area, L inguinal hernia repair. Past Anesthesia/Blood Transfusion Reactions: No Reported Reaction Date of Last Stent Placement:: 2007 per pt Past Psychological History: Anxiety, Bipolar, Depression Additional Psychological History / Comment(s): and lives with the and child. Medically disabled with neuropathy and bipolar disorder. No experience. International travel. 2 petCats in the home instructed not to change the box Smoking Status: Former smoker Past Alcohol Use History: None Reported Additional Past Alcohol Use History / Comment(s): STARTED SMOKING AT AGE 23(1994), 1PPD Past Drug Use History: None Reported - Past Family History Father Family Medical History: Congestive Heart Failure (CHF), Deep Vein Thrombosis (DVT), Myocardial Infarction (OK), Pulmonary Embolus Additional Family Medical History / Comment(s): OK at age 38. "hole in colon" Mother Family Medical History: Cancer, COPD, Diabetes Mellitus, Hyperlipidemia Additional Family Medical History / Comment(s): Mother had breast and lung cancer. She of lung cancer in her 60s. Sister(s) Family Medical History: Diabetes Mellitus, Liver Disease Additional Family Medical History / Comment(s): bi-polar, anxiety. hysterectomy, fatty liver Brother(s) History Unknown: Yes Medications and Allergies Home Medications Medication Instructions Recorded Confirmed Type Montelukast Sodium [Singulair] 10 mg PO HS 06/01/16 03/19/19 History Albuterol Inhaler [Ventolin Hfa 2 puff INHALATION RT-Q6H PRN 10/15/17 03/19/19 History Inhaler] Atorvastatin [Lipitor] 80 mg PO PC-SUPPER 10/15/17 03/19/19 History Beclomethasone Dipropionate [Qvar 2 puff INHALATION RT-BID 10/15/17 03/19/19 History 80 mcg] Fenofibrate Nanocrystallized 145 mg PO PC-SUPPER 10/15/17 03/19/19 History [Fenofibrate] Metoprolol Succinate (ER) [Toprol 25 mg PO HS 10/15/17 03/19/19 History XL] Venlafaxine HCl [Effexor XR] 150 mg PO HS 10/15/17 03/19/19 History traZODone HCL 150 mg PO HS 10/15/17 03/19/19 History Dicyclomine [Bentyl] 20 mg PO TID 01/10/19 03/19/19 History Nitroglycerin Sl Tabs [Nitrostat] 0.4 mg SUBLINGUAL Q5M PRN 01/10/19 03/19/19 History Divalproex [Depakote] 500 mg PO BID tablet. 01/27/19 03/19/19 Rx metFORMIN HCL [Glucophage] 500 mg PO PC-SUPPER #0 02/19/19 03/19/19 Rx Acyclovir [Zovirax] 400 mg PO TID #42 cap 03/18/19 03/19/19 Rx Fluconazole 200 mg PO DAILY #7 tab 03/18/19 03/19/19 Rx Levofloxacin [Levaquin] 500 mg PO DAILY #7 tab 03/18/19 03/19/19 Rx Mag Hydrox/Al Hydrox/Simeth 30 ml PO TID 14 Days #21 cup 03/18/19 03/19/19 Rx [Maalox] Non Formulary Drug PO QID 03/20/19 History Allergies Allergy/AdvReac Type Severity Reaction Status Date / Time naproxen [From Naprosyn] Allergy Unknown Rash/Hives Verified 03/20/19 00:54 adhesive tape Allergy Rash/Hives Verified 03/20/19 00:54 ibuprofen Allergy Itching Verified 03/20/19 00:54 mold Allergy Unknown Verified 03/20/19 00:54 vancomycin Allergy Rash/Hives Verified 03/20/19 00:54 carrot AdvReac Dyspnea Verified 03/20/19 00:54 chocolate flavor AdvReac Dyspnea Verified 03/20/19 00:54 grass pollen-perennial rye, AdvReac Dyspnea Verified 03/20/19 00:54 standar Physical Exam Vitals: Vital Signs Temp Pulse Pulse Resp BP BP Pulse Ox 03/21/19 10:20 98.3 F 80 16 113/64 98 03/21/19 09:51 72 15 98/53 97 03/21/19 09:41 98.2 F 82 16 111/57 98 03/21/19 08:22 98.5 F 88 16 122/86 99 03/21/19 08:00 16 03/21/19 05:00 98.6 F 88 16 108/61 98 03/20/19 21:00 98.8 F 80 16 109/65 98 03/20/19 20:20 96 03/20/19 15:39 98.6 F 86 16 117/66 100 Intake and Output 03/20/19 03/21/19 03/21/19 22:59 06:59 14:59 Intake Total 900 1370 0 Output Total 650 950 Balance 250 1370 -950 Intake: Intake, IV Titration 1370 Amount Cefepime 2 gm In Sodium 200 Chloride 0.9% 100 ml @ 200 mls/hr IVPB Q8H TABITHA Rx#:[id number] Sodium Chloride 0.9% 1, 1170 000 ml @ 130 mls/hr IV . Q7H42M TABITHA Rx#:[id number] Oral 590 Blood Product 310 0 Rc Irr As1 Unit 0 [id number] Rc Irr As1 Unit 310 [id number] Output: Urine 650 950 Other: Voiding Method Toilet Toilet Urinal # Voids 2 1 # Bowel Movements 1 Gen: This is a 48-year-old male. Patient is resting in bed appears to be comfortable. No acute distress noted. HEENT: Head is atraumatic, normocephalic. Pupils equal, round. Sclerae is anicteric. Oral mucous membranes are moist. Patient is noted to have multiple white lesions on mucous membranes NECK: Supple. No JVD. No lymphadenopathy. No thyromegaly. LUNGS: Clear to auscultation. No wheezes or rhonchi. No intercostal retractions. HEART: Regular rate and rhythm. No murmur. ABDOMEN: Soft. Bowel sounds are present. No masses. No tenderness. No flank tenderness. EXTREMITIES: No pedal edema. No calf tenderness. Dorsalis pedis +2 bilaterally. PICC line in place to the left arm with no tenderness, erythema edema. NEUROLOGICAL: Patient is awake, alert and oriented x3. Cranial nerves 2 through 12 are grossly intact. Results Results: Laboratory Results WBC 0.3 k/uL (3.8-10.6) L* 03/21/19 05:49 RBC 2.38 m/uL (4.30-5.90) L 03/21/19 05:49 Hgb 6.7 gm/dL (13.0-17.5) L* 03/21/19 05:49 Hct 19.6 % (39.0-53.0) L* 03/21/19 05:49 MCV 82.3 fL (80.0-100.0) 03/21/19 05:49 MCH 28.1 pg (25.0-35.0) 03/21/19 05:49 MCHC 34.2 g/dL (31.0-37.0) 03/21/19 05:49 RDW 16.0 % (11.5-15.5) H 03/21/19 05:49 Plt Count 9 k/uL (150-450) L* 03/21/19 05:49 Neutrophils # CONTRACT PREPARER 03/21/19 05:49 Differential Comment 03/21/19 05:49 Manual Slide Review Performed 03/21/19 05:49 Poikilocytosis Slight 03/21/19 05:49 Anisocytosis Slight 03/20/19 07:51 Microcytosis Slight 03/21/19 05:49 Sodium 140 mmol/L (137-145) 03/21/19 05:49 Potassium 4.3 mmol/L (3.5-5.1) 03/21/19 05:49 Chloride 107 mmol/L (98-107) 03/21/19 05:49 Carbon Dioxide 25 mmol/L (22-30) 03/21/19 05:49 Anion Gap 8 mmol/L 03/21/19 05:49 BUN 10 mg/dL (9-20) 03/21/19 05:49 Creatinine 0.65 mg/dL (0.66-1.25) L 03/21/19 05:49 Est GFR (CKD-EPI)AfAm >90 (>60 ml/min/1.73 sqM) 03/21/19 05:49 Est GFR (CKD-EPI)NonAf >90 (>60 ml/min/1.73 sqM) 03/21/19 05:49 Glucose 100 mg/dL (74-99) H 03/21/19 05:49 POC Glucose (mg/dL) 106 mg/dL (75-99) H 03/21/19 11:21 POC Glu Transportation Department Supervisor ID Susanna Douglas 03/21/19 11:21 Plasma Lactic Acid Cory 1.3 mmol/L (0.7-2.0) 03/19/19 22:12 Calcium 8.5 mg/dL (8.4-10.2) 03/21/19 05:49 Phosphorus 2.6 mg/dL (2.5-4.5) 03/19/19 22:12 Magnesium 2.2 mg/dL (1.6-2.3) 03/19/19 22:12 Total Bilirubin 0.7 mg/dL (0.2-1.3) 03/21/19 05:49 AST 14 U/L (17-59) L 03/21/19 05:49 ALT 29 U/L (21-72) 03/21/19 05:49 Alkaline Phosphatase 51 U/L (38-126) 03/21/19 05:49 Total Protein 6.0 g/dL (6.3-8.2) L 03/21/19 05:49 Albumin 3.3 g/dL (3.5-5.0) L 03/21/19 05:49 Urine Color Yellow 03/19/19 22:12 Urine Appearance Clear (Clear) 03/19/19 22:12 Urine pH 8.0 (5.0-8.0) 03/19/19 22:12 Ur Specific Harriet 1.021 (1.001-1.035) 03/19/19 22:12 Urine Protein Trace (Negative) H 03/19/19 22:12 Urine Glucose (UA) Negative (Negative) 03/19/19 22:12 Urine Ketones Negative (Negative) 03/19/19 22:12 Urine Blood Negative (Negative) 03/19/19 22:12 Urine Nitrite Negative (Negative) 03/19/19 22:12 Urine Bilirubin Negative (Negative) 03/19/19 22:12 Urine Urobilinogen 2.0 mg/dL (<2.0) 03/19/19 22:12 Ur Leukocyte Esterase Negative (Negative) 03/19/19 22:12 Influenza Type A RNA Not Detected (Not Detectd) 03/19/19 22:12 Influenza Type B (PCR) Not Detected (Not Detectd) 03/19/19 22:12 Blood Type O Positive 03/20/19 07:51 Blood Type Recheck O Pos 03/20/19 07:51 Bld Type Recheck Status No 03/20/19 07:51 Antibody Screen NEGATIVE 03/20/19 07:51 Crossmatch See Detail 03/20/19 07:51 Spec Expiration Date 03/23/2019235003/20/19 07:51 CBC & Chem 7: 03/21/19 05:49 03/21/19 05:49 Labs: Abnormal Lab Results - Last 24 Hours (Table) 03/20/19 03/20/19 03/20/19 Range/Units 07:51 17:09 19:50 WBC (3.8-10.6) k/uL RBC (4.30-5.90) m/uL Hgb (13.0-17.5) gm/dL Hct (39.0-53.0) % RDW (11.5-15.5) % Plt Count (150-450) k/uL Creatinine (0.66-1.25) mg/dL Glucose (74-99) mg/dL POC Glucose (mg/dL) 128 H 143 H (75-99) mg/dL AST (17-59) U/L Total Protein (6.3-8.2) g/dL Albumin (3.5-5.0) g/dL Crossmatch See Detail 03/21/19 03/21/19 03/21/19 Range/Units 05:49 05:49 07:15 WBC 0.3 L* (3.8-10.6) k/uL RBC 2.38 L (4.30-5.90) m/uL Hgb 6.7 L* (13.0-17.5) gm/dL Hct 19.6 L* (39.0-53.0) % RDW 16.0 H (11.5-15.5) % Plt Count 9 L* (150-450) k/uL Creatinine 0.65 L (0.66-1.25) mg/dL Glucose 100 H (74-99) mg/dL POC Glucose (mg/dL) 104 H (75-99) mg/dL AST 14 L (17-59) U/L Total Protein 6.0 L (6.3-8.2) g/dL Albumin 3.3 L (3.5-5.0) g/dL Crossmatch 03/21/19 Range/Units 11:21 WBC (3.8-10.6) k/uL RBC (4.30-5.90) m/uL Hgb (13.0-17.5) gm/dL Hct (39.0-53.0) % RDW (11.5-15.5) % Plt Count (150-450) k/uL Creatinine (0.66-1.25) mg/dL Glucose (74-99) mg/dL POC Glucose (mg/dL) 106 H (75-99) mg/dL AST (17-59) U/L Total Protein (6.3-8.2) g/dL Albumin (3.5-5.0) g/dL Crossmatch Microbiology - Last 24 Hours (Table) 03/19/19 22:37 Blood Culture - Preliminary Blood No Growth after 24 hours 03/20/19 09:30 Urine Culture - Preliminary Urine,Clean Catch Assessment and Plan Plan: This is a 48-year-old male well-known to ID service with underlying history of acute erythroid leukemia status post first cycle of chemotherapy discharged home on March 18 after treatment for fever, septic shock, pancytopenia. Patient returned with fever of 101, neutropenic fever with pancytopenia. Patient initially started on Zosyn and transitioned to cefepime and also continued on acyclovir and fluconazole. Blood and urine cultures are in progress. Continue supportive care. Further recommendations as patient progresses. The above dictated assessment and findings were discussed with Dr. Valenzuela. The impression and plan of care have been directed as dictated. Maci San nurse practitioner acting as scribe for Dr. Valenzuela.
[2019-03-21] MEDS: ATORVASTATIN 80 MG TAB PO SCH (16:45)
[2019-03-21] MEDS: FENOFIBRATE 160 MG TAB PO SCH (16:46)
[2019-03-21 17:09] LABS: Glucose,Whole Blood 104 mg/dL (75-99)
--- NOTE | 2019-03-21 17:15 | P.PN ---
Subjective Progress Note Date: 03/21/19 The patient denies any new complaints today. He has not had recurrent fevers. No also worse/diarrhea/nausea/vomiting. Objective - Vital Signs Vital signs: Vital Signs Temp 98.6 F 03/21/19 12:27 Pulse 75 03/21/19 12:27 Resp 15 03/21/19 12:27 BP 106/61 03/21/19 12:27 Pulse Ox 96 03/21/19 16:13 Intake & Output 03/20/19 03/21/19 03/21/19 18:59 06:59 18:59 Intake Total 310 1960 2020 Output Total 300 650 950 Balance 10 1310 1070 Weight 90.718 kg Intake: Intake, IV Titration 1370 450 Amount Cefepime 2 gm In Sodium 200 100 Chloride 0.9% 100 ml @ 200 mls/hr IVPB Q8H TABITHA Rx#:[id number] Sodium Chloride 0.9% 1, 1170 350 000 ml @ 50 mls/hr IV . Q20H TABITHA Rx#:[id number] Oral 590 950 Blood Product 310 620 Rc Irr As1 Unit 310 [id number] Rc Irr As1 Unit 310 [id number] Output: Urine 300 650 950 Other: Voiding Method Toilet Toilet Urinal # Voids 2 1 2 # Bowel Movements 1 - Constitutional General appearance: Present: no acute distress - EENT Eyes: Present: EOMI ENT: Present: hearing grossly normal, normal oropharynx - Respiratory Respiratory: bilateral: CTA - Cardiovascular Rhythm: regular Heart sounds: normal: S1, S2 - Gastrointestinal General gastrointestinal: Present: normal bowel sounds, soft - Integumentary Integumentary: Present: normal - Neurologic Neurologic: Present: CNII-XII intact - Musculoskeletal Musculoskeletal: Present: generalized weakness, strength equal bilaterally - Psychiatric Psychiatric: Present: A&O x's 3 - Labs CBC & Chem 7: 03/21/19 05:49 03/21/19 05:49 Labs: Abnormal Lab Results - Last 24 Hours (Table) 03/20/19 03/20/19 03/21/19 Range/Units 07:51 19:50 05:49 WBC 0.3 L* (3.8-10.6) k/uL RBC 2.38 L (4.30-5.90) m/uL Hgb 6.7 L* (13.0-17.5) gm/dL Hct 19.6 L* (39.0-53.0) % RDW 16.0 H (11.5-15.5) % Plt Count 9 L* (150-450) k/uL Creatinine (0.66-1.25) mg/dL Glucose (74-99) mg/dL POC Glucose (mg/dL) 143 H (75-99) mg/dL AST (17-59) U/L Total Protein (6.3-8.2) g/dL Albumin (3.5-5.0) g/dL Crossmatch See Detail 03/21/19 03/21/19 03/21/19 Range/Units 05:49 07:15 11:21 WBC (3.8-10.6) k/uL RBC (4.30-5.90) m/uL Hgb (13.0-17.5) gm/dL Hct (39.0-53.0) % RDW (11.5-15.5) % Plt Count (150-450) k/uL Creatinine 0.65 L (0.66-1.25) mg/dL Glucose 100 H (74-99) mg/dL POC Glucose (mg/dL) 104 H 106 H (75-99) mg/dL AST 14 L (17-59) U/L Total Protein 6.0 L (6.3-8.2) g/dL Albumin 3.3 L (3.5-5.0) g/dL Crossmatch 03/21/19 Range/Units 17:08 WBC (3.8-10.6) k/uL RBC (4.30-5.90) m/uL Hgb (13.0-17.5) gm/dL Hct (39.0-53.0) % RDW (11.5-15.5) % Plt Count (150-450) k/uL Creatinine (0.66-1.25) mg/dL Glucose (74-99) mg/dL POC Glucose (mg/dL) 104 H (75-99) mg/dL AST (17-59) U/L Total Protein (6.3-8.2) g/dL Albumin (3.5-5.0) g/dL Crossmatch Microbiology - Last 24 Hours (Table) 03/19/19 22:37 Blood Culture - Preliminary Blood No Growth after 24 hours 03/20/19 09:30 Urine Culture - Preliminary Urine,Clean Catch Assessment and Plan (1) Fever Narrative/Plan: The patient was admitted with recurrent febrile neutropenia. At this time for fever has resolved. He is continuing on broad-spectrum IV antibiotics. Neutrophils are still low. Recovery should start in the next few days. C ultures negative so far Current Visit: Yes Status: Acute Priority: High Code(s): R50.9 - FEVER, UNSPECIFIED SNOMED Code(s): 173028203 (2) Pancytopenia Narrative/Plan: Labs were reviewed today. One unit of packed RBCs, and 1 unit of platelets will be ordered for hemoglobin of 6.8, and platelets of 9 respectively. Continue to monitor and transfuse as needed Current Visit: Yes Status: Acute Priority: High Code(s): D61.818 - OTHER PANCYTOPENIA SNOMED Code(s): 626485169
[2019-03-21 21:10] LABS: Glucose,Whole Blood 134 mg/dL (75-99)
[2019-03-21] MEDS: METOPROLOL SUCCINATE (ER) 25 MG TAB.ER.24H PO SCH (22:32)
[2019-03-21] MEDS: traZODone HCL 50 MG TAB PO SCH (22:32)
[2019-03-21] MEDS: MONTELUKAST 10 MG TAB PO SCH (22:32)
[2019-03-21] MEDS: VENLAFAXINE HCL ER 150 MG CAP PO SCH (22:55)
[2019-03-22] MEDS: CEFEPIME 2 GM in SODIUM CHLORIDE 0.9% 100 ML IVPB SCH ×3 (03:46→17:16)
[2019-03-22 07:02] LABS: Glucose,Whole Blood 97 mg/dL (75-99)
[2019-03-22] MEDS: FLUTICASONE 110 MCG INHALER INHALATION SCH ×2 (07:53→19:44)
--- NOTE | 2019-03-22 07:54 | P.CON ---
Consult Note - . Consult date: 03/21/19 Assessment/Plan:: This is a 48-year-old male recently seen on his hospitalization March 13 to the . He was recently diagnosed with acute erythroid leukemia and had induction chemotherapy 7+3 regime March 03 through March 10. During his recent hospitalization he was treated for fever, septic shock , pancytopenia and was discharged home on 03/18 to continue on Levaquin and fluconazole and acyclovir. Patient presented after developing fever 101 at home. He took Tylenol and contacted the oncology and was instructed to come in the hospital. Patient has been seen by Dr. Rojas with recommendations to keep IV antibiotics until WBC count recovers. WBC 0.3, hemoglobin 6.7 and platelet count 9. Electrolytes within normal limits, creatinine 0.65, albumin 3.3. He is status post transfusion of 1 unit packed RBCs last night and is receiving a second unit today. Urine and blood cultures are in progress. He was initially on Zosyn transitioned to cefepime.Please see the consult note is dictated by nurse practitioner Mrs. Maci San. This 48-year-old woman has the acute erythroid leukemia status post induction chemotherapy still has not had recovery of his bone marrow. He remains neutropenic and had recurrence of fever. Because of no evidence of known improvement of his underlying leukemia, the recurrent fever was concerning to the oncologist he was brought back in the hospital for close monitoring and enhanced antibiotic therapy. The time of the consult his antibiotics were transitioned from Zosyn to cefepime given his ongoing thrombocytopenia and anemia. The patient is started to respond to fluids, and antibiotic therapy with some improvement of his fever but he still does not feel very well. Oncology believes he will have bone marrow recovery within the next 3-5 days and the plan will be to continue intravenous antibiotic therapy as well as his supportive antimicrobial therapy which includes acyclovir and fluconazole. Ensuring adequate nutrition as well as hydration will be very helpful. I agree with evaluation, assessment and plan as dictated by nurse practitioner Mrs. Maci San.
[2019-03-22 08:47] LABS: HCT 22.5 % (39.0-53.0); MCH 29.9 pg (25.0-35.0); MCHC 35.7 g/dL (31.0-37.0); MCV 83.6 fL (80.0-100.0); Mean Platelet Volume 7.4; Poikilocytosis Slight; RBC 2.69 m/uL (4.30-5.90); RDW 15.6 % (11.5-15.5)
[2019-03-22] MEDS: INSULIN ASPART (NovoLOG) 100 UNIT/ML VIAL SQ SCH ×4 (08:54→22:00)
[2019-03-22 08:58] LABS: WBC 0.3 k/uL (3.8-10.6)
[2019-03-22 08:59] LABS: Platelet Count 24 k/uL (150-450)
[2019-03-22 09:03] LABS: ALT 31 U/L (21-72); African American GFR (CKD) >90 (>60 ml/min/1.73 sqM); Albumin 3.6 g/dL (3.5-5.0); Alkaline Phosphatase 58 U/L (38-126); Anion Gap 9 mmol/L; Blood Urea Nitrogen 13 mg/dL (9-20); Calcium 9.1 mg/dL (8.4-10.2); Carbon Dioxide 25 mmol/L (22-30); Chloride 106 mmol/L (98-107); Glucose 107 mg/dL (74-99); Sodium 140 mmol/L (137-145); Total Bilirubin 0.9 mg/dL (0.2-1.3); Total Protein 6.4 g/dL (6.3-8.2)
[2019-03-22 09:04] LABS: AST 17 U/L (17-59)
[2019-03-22] MEDS: MAG HYDROX/AL HYDROX/SIMETH 30 ML, LIDOCAINE VISCOUS 30 ML, diphenhydrAMINE ELIXIR 75 M... PO SCH ×12 (09:08→22:04)
[2019-03-22] MEDS: DIVALPROEX 500 MG TABLET.DR PO SCH ×2 (09:08→22:04)
[2019-03-22] MEDS: FLUCONAZOLE 100 MG TAB PO SCH (09:08)
[2019-03-22] MEDS: ACYCLOVIR 200 MG CAP PO SCH ×3 (09:08→22:03)
[2019-03-22] MEDS: PANTOPRAZOLE 40 MG TABLET PO SCH (09:08)
[2019-03-22] MEDS: DICYCLOMINE 20 MG TAB PO SCH ×3 (09:08→22:04)
--- NOTE | 2019-03-22 11:30 | P.PN ---
Subjective Progress Note Date: 03/22/19 This is a 48-year-old male patient who presented to the ER with a fever after talking to his oncologist. Patient has a known history of acute myeloid leukemia and recent chemotherapy on 03/10/2019. He reports spiking a temperature of 101 F at home at which point he took Tylenol and then called Dr. Rojas, who recommended he go to the ER. Patient states that this is the first elevated temp since discharge on 03/18/2019. He denies any symptoms of dizziness, weakness, lightheadedness, or chills. He denies any rash or open sores on his body. He does complain of mouth soreness when he eats. He has 2 small, white sores on the dorsal side of his tongue. He denies chest pain, shortness of breath, cough. He denies nausea, vomiting, diarrhea. No bowel movement for 2 days. Other past medical history consists of, diabetes type 2, GERD with reflux, hyperlipidemia, hypertension, [place], OA, asthma, chronic cervical/lumbar pain with neurotransmitter to both sides, bilateral carpal tunnel syndrome. On 03/21/2019 patient alert and oriented 3. Patient antibiotics switched to Maxipime per ID. The blood cell remains low at 0.3. HEENT: 6.7 and platelets 9. Patient to receive 1 unit PVCs and 1 unit of platelets prior oncology services. Patient denies chest pain or shortness of breath. Patient denies nausea vomiting or diarrhea. Patient denies any urinary burning or frequency On 03/22/2019 patient was seen and examined on the oncology floor, he is alert and oriented 3 in no apparent distress he denies any pain or discomfort at this time there is no fever or chills no headache or dizziness no chest pain no shortness of breath no cough no nausea or vomiting no abdominal pain no diarrhea no blood in the stools no burning was urination no frequency or urgency no hematuria no weakness or numbness in any of the extremities. Objective - Vital Signs Vital signs: Vital Signs Temp 97.9 F 03/22/19 05:00 Pulse 81 03/22/19 05:00 Resp 16 03/22/19 05:00 BP 106/62 03/22/19 05:00 Pulse Ox 97 03/22/19 05:00 Intake & Output 03/21/19 03/22/19 03/22/19 18:59 06:59 18:59 Intake Total 2019 1043 Output Total 950 1750 Balance 1070 -706 Weight 90.718 kg Intake: Intake, IV Titration 450 250 Amount Cefepime 2 gm In Sodium 100 Chloride 0.9% 100 ml @ 200 mls/hr IVPB Q8H [facility] Rx#:[id number] Sodium Chloride 0.9% 1, 350 250 000 ml @ 50 mls/hr IV . Q20H [facility] Rx#:[id number] Oral 950 590 Blood Product 620 204 Platelet Irr Pheresis 2 204 Acda Unit [id number] Rc Irr As1 Unit 310 [id number] Output: Urine 950 1750 Other: Voiding Method Toilet Toilet Urinal Urinal # Voids 2 1 - Exam In general patient is alert and oriented 3 in no apparent distress Head normocephalic and atraumatic Neck supple no JVD no goiter Lungs clear to auscultation bilaterally no wheezing or crackles Heart regular rate and rhythm S1-S2, no rub or gallop Abdomen is soft nontender nondistended positive bowel sounds no hepatosplenomegaly Extremities no edema no cyanosis or clubbing Neuro no gross focal neurological deficits Dorsal side of right tongue has 2 small, white sores. Looks to have granulating tissue. - Labs CBC & Chem 7: 03/22/19 08:29 03/22/19 08:29 Labs: Abnormal Lab Results - Last 24 Hours (Table) 03/20/19 03/21/19 03/21/19 Range/Units 07:51 17:08 21:09 WBC (3.8-10.6) k/uL RBC (4.30-5.90) m/uL Hgb (13.0-17.5) gm/dL Hct (39.0-53.0) % RDW (11.5-15.5) % Plt Count (150-450) k/uL Creatinine (0.66-1.25) mg/dL Glucose (74-99) mg/dL POC Glucose (mg/dL) 104 H 134 H (75-99) mg/dL Crossmatch See Detail 03/22/19 03/22/19 Range/Units 08:29 08:29 WBC 0.3 L* (3.8-10.6) k/uL RBC 2.69 L (4.30-5.90) m/uL Hgb 8.0 L (13.0-17.5) gm/dL Hct 22.5 L (39.0-53.0) % RDW 15.6 H (11.5-15.5) % Plt Count 24 L D (150-450) k/uL Creatinine 0.65 L (0.66-1.25) mg/dL Glucose 107 H (74-99) mg/dL POC Glucose (mg/dL) (75-99) mg/dL Crossmatch Microbiology - Last 24 Hours (Table) 03/19/19 22:37 Blood Culture - Preliminary Blood No Growth after 48 hours 03/20/19 09:30 Urine Culture - Final Urine,Clean Catch 03/20/19 17:40 Blood Culture - Preliminary Blood No Growth after 24 hours Assessment and Plan Plan: 1. Febrile illness. Patient was instructed by Dr. Rojas to come in to the hospital for further monitoring due to persistent fevers. Infectious disease consulted. Blood cultures pending. Chest X-ray read, normal no change. Temperature max was 99F in the ER. Patient on Zosyn, fluconazole. Hemoglobin is 6.9, platelet count 12. Antibiotics adjusted to Maxipime per ID 2. 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 WBC is 0.3 3. Acute myeloid leukemia. Diagnosis with bone marrow bx on 02/14/2019. First round of chemo completed on 03/10/2019 4. History of essential hypertension. Home medications Lopressor resumed parameters. 5. History of diabetes mellitus type 2. Will hold home metformin and add s liding scale 6. History of depression on Effexor XL 7. History of left ureteral calculus. Stent placed in 2017. Stent has since been removed. 8. History of coronary artery disease. Cardiac stent 1 in 2007 9. History of obstructive sleep apnea maintained on CPAP 10. History of hyperlipidemia. Maintain on Lipitor and fenofibrate 11. Chronic cervical and lumbar pain. Neurostimulator to both sites maintained. DVT prophylaxis SCDs held due to thrombocytopenia. GI prophylaxis Protonix
[2019-03-22 11:38] LABS: Glucose,Whole Blood 101 mg/dL (75-99)
[2019-03-22] MEDS: SODIUM CHLORIDE 0.9% 1,000 ML IV SCH (12:56)
[2019-03-22 16:55] LABS: Glucose,Whole Blood 109 mg/dL (75-99)
[2019-03-22] MEDS: ATORVASTATIN 80 MG TAB PO SCH (17:08)
[2019-03-22] MEDS: FENOFIBRATE 160 MG TAB PO SCH (17:09)
[2019-03-22] MEDS: ACETAMINOPHEN TAB 500 MG TAB PO PRN (18:32)
[2019-03-22 20:39] LABS: Glucose,Whole Blood 141 mg/dL (75-99)
--- NOTE | 2019-03-22 21:48 | CT ---
EXAMINATION TYPE: CT brain wo con DATE OF EXAM: 03/22/2019 COMPARISON: 03/13/2019 INDICATION: Headache. History of leukemia. DLP: 1067.5 mGycm, Automated exposure control for dose reduction was used. CONTRAST: None CT of the brain is performed utilizing 3 mm thick sections through the posterior fossa and 3 mm thick sections through the remaining calvarium. Study is performed within 24 hours of arrival to the hosp [facility]. No abnormal hyperdensity is present to suggest an acute intracranial hemorrhage. No mass lesion is evident. No acute infarcts are evident. No suspicious extra-axial collections are evident. Ventricles and sulci are appropriate for the patient age. Paranasal sinuses and mastoid air cells within the [id number] are clear. IMPRESSIONS: 1. No acute intracranial process.
[2019-03-22] MEDS: MONTELUKAST 10 MG TAB PO SCH (22:03)
[2019-03-22] MEDS: METOPROLOL SUCCINATE (ER) 25 MG TAB.ER.24H PO SCH (22:03)
[2019-03-22] MEDS: HYDROmorphone 0.5 MG/0.5 ML SYRINGE IVP PRN (22:03)
[2019-03-22] MEDS: traZODone HCL 50 MG TAB PO SCH (22:03)
[2019-03-22] MEDS: VENLAFAXINE HCL ER 150 MG CAP PO SCH (22:04)
[2019-03-23] MEDS: CEFEPIME 2 GM in SODIUM CHLORIDE 0.9% 100 ML IVPB SCH ×3 (03:45→17:51)
[2019-03-23 06:08] LABS: HCT 21.9 % (39.0-53.0); HGB 7.7 gm/dL (13.0-17.5); MCH 29.4 pg (25.0-35.0); MCHC 35.4 g/dL (31.0-37.0); MCV 83.2 fL (80.0-100.0); Mean Platelet Volume 6.6; Poikilocytosis Slight; RBC 2.63 m/uL (4.30-5.90); RDW 15.5 % (11.5-15.5)
[2019-03-23 06:21] LABS: WBC 0.4 k/uL (3.8-10.6)
[2019-03-23 06:24] LABS: Platelet Count 20 k/uL (150-450)
[2019-03-23 06:26] LABS: ALT 32 U/L (21-72); AST 16 U/L (17-59); African American GFR (CKD) >90 (>60 ml/min/1.73 sqM); Albumin 3.5 g/dL (3.5-5.0); Alkaline Phosphatase 56 U/L (38-126); Anion Gap 10 mmol/L; Blood Urea Nitrogen 14 mg/dL (9-20); Calcium 8.9 mg/dL (8.4-10.2); Carbon Dioxide 27 mmol/L (22-30); Chloride 105 mmol/L (98-107); Glucose 88 mg/dL (74-99); Potassium 4.3 mmol/L (3.5-5.1); Sodium 142 mmol/L (137-145); Total Bilirubin 0.8 mg/dL (0.2-1.3); Total Protein 6.3 g/dL (6.3-8.2)
[2019-03-23 07:09] LABS: Glucose,Whole Blood 96 mg/dL (75-99)
[2019-03-23] MEDS: INSULIN ASPART (NovoLOG) 100 UNIT/ML VIAL SQ SCH ×4 (07:16→20:33)
[2019-03-23] MEDS: FLUTICASONE 110 MCG INHALER INHALATION SCH ×2 (07:20→19:04)
[2019-03-23] MEDS: DICYCLOMINE 20 MG TAB PO SCH ×3 (07:27→21:11)
[2019-03-23] MEDS: DIVALPROEX 500 MG TABLET.DR PO SCH ×2 (07:28→21:11)
[2019-03-23] MEDS: FLUCONAZOLE 100 MG TAB PO SCH (07:28)
[2019-03-23] MEDS: FENOFIBRATE 160 MG TAB PO SCH (07:28)
[2019-03-23] MEDS: ACYCLOVIR 200 MG CAP PO SCH ×3 (07:28→21:11)
[2019-03-23] MEDS: SODIUM CHLORIDE 0.9% 1,000 ML IV SCH (07:29)
[2019-03-23] MEDS: PANTOPRAZOLE 40 MG TABLET PO SCH (07:29)
[2019-03-23] MEDS: MAG HYDROX/AL HYDROX/SIMETH 30 ML, LIDOCAINE VISCOUS 30 ML, diphenhydrAMINE ELIXIR 75 M... PO SCH ×12 (07:29→21:12)
[2019-03-23] MEDS: HYDROmorphone 0.5 MG/0.5 ML SYRINGE IVP PRN ×2 (08:12→21:21)
[2019-03-23 11:27] LABS: Glucose,Whole Blood 98 mg/dL (75-99)
--- NOTE | 2019-03-23 12:13 | P.PN ---
Subjective Progress Note Date: 03/23/19 This is a 48-year-old male patient who presented to the ER with a fever after talking to his oncologist. Patient has a known history of acute myeloid leukemia and recent chemotherapy on 03/10/2019. He reports spiking a temperature of 101 F at home at which point he took Tylenol and then called Dr. Rojas, who recommended he go to the ER. Patient states that this is the first elevated temp since discharge on 03/18/2019. He denies any symptoms of dizziness, weakness, lightheadedness, or chills. He denies any rash or open sores on his body. He does complain of mouth soreness when he eats. He has 2 small, white sores on the dorsal side of his tongue. He denies chest pain, shortness of breath, cough. He denies nausea, vomiting, diarrhea. No bowel movement for 2 days. Other past medical history consists of, diabetes type 2, GERD with reflux, hyperlipidemia, hypertension, [place], OA, asthma, chronic cervical/lumbar pain with neurotransmitter to both sides, bilateral carpal tunnel syndrome. On 03/21/2019 patient alert and oriented 3. Patient antibiotics switched to Maxipime per ID. The blood cell remains low at 0.3. HEENT: 6.7 and platelets 9. Patient to receive 1 unit PVCs and 1 unit of platelets prior oncology services. Patient denies chest pain or shortness of breath. Patient denies nausea vomiting or diarrhea. Patient denies any urinary burning or frequency On 03/22/2019 patient was seen and examined on the oncology floor, he is alert and oriented 3 in no apparent distress he denies any pain or discomfort at this time there is no fever or chills no headache or dizziness no chest pain no shortness of breath no cough no nausea or vomiting no abdominal pain no diarrhea no blood in the stools no burning was urination no frequency or urgency no hematuria no weakness or numbness in any of the extremities. On 03/23/2019 patient was seen and examined on the oncology floor he is feeling well and denies any symptoms at this time, he is complaining of episodes of righ t sided headache, on and off, this was severe last night, a computed tomography scan of the brain was done and did not reveal any acute abnormality. Otherwise there is no fever or chills no dizziness no chest pain no shortness of breath no cough no nausea or vomiting no abdominal pain no diarrhea no burning was urination no frequency or urgency no hematuria, no weakness or numbness in any of his extremities. Objective - Vital Signs Vital signs: Vital Signs Temp 98.5 F 03/23/19 11:27 Pulse 75 03/23/19 11:27 Resp 16 03/23/19 11:27 BP 108/56 03/23/19 11:27 Pulse Ox 96 03/23/19 11:27 Intake & Output 03/22/19 03/23/19 03/23/19 18:59 06:59 18:59 Intake Total 800 160 Output Total 1000 250 Balance -1000 550 160 Weight 90.718 kg Intake: Intake, IV Titration 250 Amount Sodium Chloride 0.9% 1, 250 000 ml @ 50 mls/hr IV . Q20H [facility] Rx#:[id number] Oral 550 160 Output: Urine 1000 250 Other: Voiding Method Toilet Toilet Toilet Urinal Urinal Urinal # Voids 4 1 2 - Exam In general patient is alert and oriented 3 in no apparent distress Head normocephalic and atraumatic Neck supple no JVD no goiter Lungs clear to auscultation bilaterally no wheezing or crackles Heart regular rate and rhythm S1-S2, no rub or gallop Abdomen is soft nontender nondistended positive bowel sounds no hep atosplenomegaly Extremities no edema no cyanosis or clubbing Neuro no gross focal neurological deficits Dorsal side of right tongue has 2 small, white sores. Looks to have granulating tissue. - Labs CBC & Chem 7: 03/23/19 05:48 03/23/19 05:48 Labs: Abnormal Lab Results - Last 24 Hours (Table) 03/22/19 03/22/19 03/23/19 Range/Units 16:54 20:38 05:48 WBC 0.4 L* (3.8-10.6) k/uL RBC 2.63 L (4.30-5.90) m/uL Hgb 7.7 L (13.0-17.5) gm/dL Hct 21.9 L (39.0-53.0) % Plt Count 20 L (150-450) k/uL POC Glucose (mg/dL) 109 H 141 H (75-99) mg/dL AST (17-59) U/L 03/23/19 Range/Units 05:48 WBC (3.8-10.6) k/uL RBC (4.30-5.90) m/uL Hgb (13.0-17.5) gm/dL Hct (39.0-53.0) % Plt Count (150-450) k/uL POC Glucose (mg/dL) (75-99) mg/dL AST 16 L (17-59) U/L Microbiology - Last 24 Hours (Table) 03/19/19 22:37 Blood Culture - Preliminary Blood No Growth after 72 hours 03/20/19 17:40 Blood Culture - Preliminary Blood No Growth after 48 hours Assessment and Plan Plan: 1. Febrile illness. Patient was instructed by Dr. Rojas to come in to the hospital for further monitoring due to persistent fevers. Infectious disease consulted. Blood cultures pending. Chest X-ray read, normal no change. Temperature max was 99F in the ER. Patient on Zosyn, fluconazole. Hemoglobin is 6.9, platelet count 12. Antibiotics adjusted to Maxipime per ID 2. 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 WBC is 0.3 3. Acute myeloid leukemia. Diagnosis with bone marrow bx on 02/14/2019. First round of chemo completed on 03/10/2019 4. History of essential hypertension. Home medications Lopressor resumed parameters. 5. History of diabetes mellitus type 2. Will hold home metformin and add sliding scale 6. History of depression on Effexor XL 7. History of left ureteral calculus. Stent placed in 2017. Stent has since been removed. 8. History of coronary artery disease. Cardiac stent 1 in 2007 9. History of obstructive sleep apnea maintained on CPAP 10. History of hyperlipidemia. Maintain on Lipitor and fenofibrate 11. Chronic cervical and lumbar pain. Neurostimulator to both sites maintained. DVT prophylaxis SCDs held due to thrombocytopenia. GI prophylaxis Protonix
[2019-03-23 17:06] LABS: Glucose,Whole Blood 148 mg/dL (75-99)
[2019-03-23] MEDS: ATORVASTATIN 80 MG TAB PO SCH (17:51)
[2019-03-23 20:02] LABS: Glucose,Whole Blood 118 mg/dL (75-99)
[2019-03-23] MEDS: METOPROLOL SUCCINATE (ER) 25 MG TAB.ER.24H PO SCH (21:11)
[2019-03-23] MEDS: traZODone HCL 50 MG TAB PO SCH (21:11)
[2019-03-23] MEDS: MONTELUKAST 10 MG TAB PO SCH (21:11)
[2019-03-23] MEDS: VENLAFAXINE HCL ER 150 MG CAP PO SCH (21:11)
[2019-03-24] MEDS: CEFEPIME 2 GM in SODIUM CHLORIDE 0.9% 100 ML IVPB SCH ×3 (03:28→18:33)
[2019-03-24] MEDS: SODIUM CHLORIDE 0.9% 1,000 ML IV SCH ×2 (03:28→21:24)
[2019-03-24 07:12] LABS: Glucose,Whole Blood 89 mg/dL (75-99)
[2019-03-24] MEDS: INSULIN ASPART (NovoLOG) 100 UNIT/ML VIAL SQ SCH ×4 (07:30→21:24)
[2019-03-24] MEDS: DICYCLOMINE 20 MG TAB PO SCH ×2 (07:30→16:58)
[2019-03-24 07:31] LABS: HCT 21.5 % (39.0-53.0); HGB 7.5 gm/dL (13.0-17.5); MCH 29.4 pg (25.0-35.0); MCV 83.8 fL (80.0-100.0); Poikilocytosis Slight; RBC 2.57 m/uL (4.30-5.90); RDW 15.6 % (11.5-15.5)
[2019-03-24] MEDS: FLUTICASONE 110 MCG INHALER INHALATION SCH ×2 (07:41→19:25)
[2019-03-24 07:46] LABS: WBC 0.3 k/uL (3.8-10.6)
[2019-03-24 07:48] LABS: Platelet Count 26 k/uL (150-450)
[2019-03-24 08:06] LABS: ALT 33 U/L (21-72); AST 19 U/L (17-59); African American GFR (CKD) >90 (>60 ml/min/1.73 sqM); Albumin 3.5 g/dL (3.5-5.0); Alkaline Phosphatase 58 U/L (38-126); Anion Gap 8 mmol/L; Blood Urea Nitrogen 13 mg/dL (9-20); Calcium 8.9 mg/dL (8.4-10.2); Carbon Dioxide 29 mmol/L (22-30); Chloride 104 mmol/L (98-107); Glucose 82 mg/dL (74-99); Potassium 4.2 mmol/L (3.5-5.1); Sodium 141 mmol/L (137-145); Total Bilirubin 0.7 mg/dL (0.2-1.3); Total Protein 6.3 g/dL (6.3-8.2)
[2019-03-24] MEDS: DIVALPROEX 500 MG TABLET.DR PO SCH ×2 (09:16→21:23)
[2019-03-24] MEDS: ACYCLOVIR 200 MG CAP PO SCH ×3 (09:21→21:24)
[2019-03-24] MEDS: MAG HYDROX/AL HYDROX/SIMETH 30 ML, LIDOCAINE VISCOUS 30 ML, diphenhydrAMINE ELIXIR 75 M... PO SCH ×12 (09:22→21:25)
[2019-03-24] MEDS: FLUCONAZOLE 100 MG TAB PO SCH (09:22)
[2019-03-24] MEDS: PANTOPRAZOLE 40 MG TABLET PO SCH (09:22)
--- NOTE | 2019-03-24 10:02 | P.PN ---
Subjective Progress Note Date: 03/24/19 This is a 48-year-old male patient who presented to the ER with a fever after talking to his oncologist. Patient has a known history of acute myeloid leukemia and recent chemotherapy on 03/10/2019. He reports spiking a temperature of 101 F at home at which point he took Tylenol and then called Dr. Rojas, who recommended he go to the ER. Patient states that this is the first elevated temp since discharge on 03/18/2019. He denies any symptoms of dizziness, weakness, lightheadedness, or chills. He denies any rash or open sores on his body. He does complain of mouth soreness when he eats. He has 2 small, white sores on the dorsal side of his tongue. He denies chest pain, shortness of breath, cough. He denies nausea, vomiting, diarrhea. No bowel movement for 2 days. Other past medical history consists of, diabetes type 2, GERD with reflux, hyperlipidemia, hypertension, [place], OA, asthma, chronic cervical/lumbar pain with neurotransmitter to both sides, bilateral carpal tunnel syndrome. On 03/21/2019 patient alert and oriented 3. Patient antibiotics switched to Maxipime per ID. The blood cell remains low at 0.3. HEENT: 6.7 and platelets 9. Patient to receive 1 unit PVCs and 1 unit of platelets prior oncology services. Patient denies chest pain or shortness of breath. Patient denies nausea vomiting or diarrhea. Patient denies any urinary burning or frequency On 03/22/2019 patient was seen and examined on the oncology floor, he is alert and oriented 3 in no apparent distress he denies any pain or discomfort at this time there is no fever or chills no headache or dizziness no chest pain no shortness of breath no cough no nausea or vomiting no abdominal pain no diarrhea no blood in the stools no burning was urination no frequency or urgency no hematuria no weakness or numbness in any of the extremities. On 03/23/2019 patient was seen and examined on the oncology floor he is feeling well and denies any symptoms at this time, he is complaining of episodes of right sided headache, on and off, this was severe last night, a computed tomography scan of the brain was done and did not reveal any acute abnormality. Otherwise there is no fever or chills no dizziness no chest pain no shortness of breath no cough no nausea or vomiting no abdominal pain no diarrhea no burning was urination no frequency or urgency no hematuria, no weakness or numbness in any of his extremities. On 03/24/2019 patient is alert and oriented 3. Patient is still having intermittent headaches. Head CT was performed. Patient remains afebrile. White blood cell 0.3. Oncology services are following. Cultures currently negative. At this time patient denies chest pain or shortness of breath. Patient denies nausea vomiting or diarrhea. Patient denies any urinary burning or frequency. Objective - Vital Signs Vital signs: Vital Signs Temp 98.4 F 03/24/19 04:29 Pulse 80 03/24/19 04:29 Resp 16 03/24/19 08:00 BP 101/59 03/24/19 04:29 Pulse Ox 98 03/24/19 04:29 Intake & Output 03/23/19 03/24/19 03/24/19 18:59 06:59 18:59 Intake Total 160 1180 Output Total 1200 Balance 160 -20 Intake: Intake, IV Titration 700 Amount Cefepime 2 gm In Sodium 100 Chloride 0.9% 100 ml @ 200 mls/hr IVPB Q8H [facility] Rx#:[id number] Sodium Chloride 0.9% 1, 600 000 ml @ 50 mls/hr IV . Q20H [facility] Rx#:[id number] Oral 160 480 Output: Urine 1200 Other: Voiding Method Toilet Toilet Toilet Urinal Urinal Urinal # Voids 2 1 - Exam Head normocephalic Neck supple Lungs clear to auscultation bilaterally no wheezing or crackles Heart regular rate and rhythm S1-S2, no rub or gallop Abdomen is soft nontender nondistended positive bowel sounds no hepatosplenomegaly Extremities no edema Neuro alert and orientated to 3 Dorsal side of right tongue has 2 small, white sores. Looks to have granulating tissue. - Labs CBC & Chem 7: 03/24/19 06:58 03/24/19 06:58 Labs: Abnormal Lab Results - Last 24 Hours (Table) 03/23/19 03/23/19 03/24/19 Range/Units 17:05 20:00 06:58 WBC 0.3 L* (3.8-10.6) k/uL RBC 2.57 L (4.30-5.90) m/uL Hgb 7.5 L (13.0-17.5) gm/dL Hct 21.5 L (39.0-53.0) % RDW 15.6 H (11.5-15.5) % Plt Count 26 L (150-450) k/uL Creatinine (0.66-1.25) mg/dL POC Glucose (mg/dL) 148 H 118 H (75-99) mg/dL 03/24/19 Range/Units 06:58 WBC (3.8-10.6) k/uL RBC (4.30-5.90) m/uL Hgb (13.0-17.5) gm/dL Hct (39.0-53.0) % RDW (11.5-15.5) % Plt Count (150-450) k/uL Creatinine 0.65 L (0.66-1.25) mg/dL POC Glucose (mg/dL) (75-99) mg/dL Microbiology - Last 24 Hours (Table) 03/19/19 22:37 Blood Culture - Preliminary Blood No Growth after 96 hours 03/20/19 17:40 Blood Culture - Preliminary Blood No Growth after 72 hours Assessment and Plan Assessment: 1. Febrile. Patient was instructed by Dr. Rojas to come in to the hospital for further monitoring due to persistent fevers. Infectious disease consulted. Blood cultures pending. Chest X-ray read, normal no change. Temperature max was 99F in the ER. Patient on Zosyn, fluconazole. Hemoglobin is 6.9, platelet count 12. Antibiotics adjusted to Maxipime per ID 2. 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 WBC is 0.3 3. Acute myeloid leukemia. Diagnosis with bone marrow bx on 02/14/2019. First round of chemo completed on 03/10/2019 4. History of essential hypertension. Home medications Lopressor resumed parameters. 5. History of diabetes mellitus type 2. Will hold home metformin and add sliding scale 6. History of depression on Effexor XL 7. History of left ureteral calculus. Stent placed in 2017. Stent has since been removed. 8. History of coronary artery disease. Cardiac stent 1 in 2007 9. History of obstructive sleep apnea maintained on CPAP 10. History of hyperlipidemia. Maintain on Lipitor and fenofibrate 11. Chronic cervical and lumbar pain. Neurostimulator to both sites maintained. 12. headache. head CT completed showing no acute intracranial process DVT prophylaxis SCDs held due to thrombocytopenia. GI prophylaxis Protonix I performed an examination of the patient and discussed their management with the Nurse Practitioner. I have reviewed the Nurse Practitioner's notes and agre e with the documented findings and plan of care
[2019-03-24 11:18] LABS: Glucose,Whole Blood 114 mg/dL (75-99)
--- NOTE | 2019-03-24 12:34 | P.PN ---
Subjective Progress Note Date: 03/24/19 The patient denies any new complaints. He has been afebrile. No fever/chills/nausea/vomiting/mouth sores or diarrhea Objective - Vital Signs Vital signs: Vital Signs Temp 98.5 F 03/24/19 11:32 Pulse 76 03/24/19 11:32 Resp 16 03/24/19 11:32 BP 112/57 03/24/19 11:32 Pulse Ox 98 03/24/19 11:32 Intake & Output 03/23/19 03/24/19 03/24/19 18:59 06:59 18:59 Intake Total 160 1180 240 Output Total 1200 Balance 160 -20 240 Intake: Intake, IV Titration 700 Amount Cefepime 2 gm In Sodium 100 Chloride 0.9% 100 ml @ 200 mls/hr IVPB Q8H [facility] Rx#:[id number] Sodium Chloride 0.9% 1, 600 000 ml @ 50 mls/hr IV . Q20H [facility] Rx#:[id number] Oral 160 480 240 Output: Urine 1200 Other: Voiding Method Toilet Toilet Toilet Urinal Urinal Urinal # Voids 2 1 - Constitutional General appearance: Present: no acute distress - EENT Eyes: Present: EOMI ENT: Present: hearing grossly normal, normal oropharynx - Neck Thyroid: bilateral: normal size - Respiratory Respiratory: bilateral: CTA - Cardiovascular Rhythm: regular Heart sounds: normal: S1, S2 - Gastrointestinal General gastrointestinal: Present: normal bowel sounds, soft - Integumentary Integumentary: Present: normal - Neurologic Neurologic: Present: CNII-XII intact - Musculoskeletal Musculoskeletal: Present: generalized weakness, strength equal bilaterally - Psychiatric Psychiatric: Present: A&O x's 3 - Labs CBC & Chem 7: 03/24/19 06:58 03/24/19 06:58 Labs: Abnormal Lab Results - Last 24 Hours (Table) 03/23/19 03/23/19 03/24/19 Range/Units 17:05 20:00 06:58 WBC 0.3 L* (3.8-10.6) k/uL RBC 2.57 L (4.30-5.90) m/uL Hgb 7.5 L (13.0-17.5) gm/dL Hct 21.5 L (39.0-53.0) % RDW 15.6 H (11.5-15.5) % Plt Count 26 L (150-450) k/uL Creatinine (0.66-1.25) mg/dL POC Glucose (mg/dL) 148 H 118 H (75-99) mg/dL 03/24/19 03/24/19 Range/Units 06:58 11:16 WBC (3.8-10.6) k/uL RBC (4.30-5.90) m/uL Hgb (13.0-17.5) gm/dL Hct (39.0-53.0) % RDW (11.5-15.5) % Plt Count (150-450) k/uL Creatinine 0.65 L (0.66-1.25) mg/dL POC Glucose (mg/dL) 114 H (75-99) mg/dL Microbiology - Last 24 Hours (Table) 03/19/19 22:37 Blood Culture - Preliminary Blood No Growth after 96 hours 03/20/19 17:40 Blood Culture - Preliminary Blood No Growth after 72 hours Assessment and Plan (1) Fever Narrative/Plan: Associated with neutropenia. Fever has not recurred since admission. Microbiology workup was negative. However neutropenia persists. Continue IV antibiotics Current Visit: Yes Status: Acute Priority: High Code(s): R50.9 - FEVER, UNSPECIFIED SNOMED Code(s): 255545463 (2) Pancytopenia Narrative/Plan: Due to antineoplastic chemotherapy. No definite signs of marrow recovery so far. . Counts however are somewhat more stable than before. Continue to monitor with transfusion support as needed Current Visit: Yes Status: Acute Priority: High Code(s): D61.818 - OTHER PANCYTOPENIA SNOMED Code(s): 346520777
[2019-03-24] MEDS ORDERED: DICYCLOMINE 20 MG TAB PO PRN (16:39)
[2019-03-24] MEDS: ATORVASTATIN 80 MG TAB PO SCH (16:56)
[2019-03-24] MEDS: FENOFIBRATE 160 MG TAB PO SCH (16:57)
[2019-03-24 17:11] LABS: Glucose,Whole Blood 92 mg/dL (75-99)
[2019-03-24 20:11] LABS: Glucose,Whole Blood 158 mg/dL (75-99)
--- NOTE | 2019-03-24 20:29 | P.PN ---
Subjective Progress Note Date: 03/24/19 This is a 48-year-old male recently seen on his hospitalization March 13 to the . He was recently diagnosed with acute erythroid leukemia and had induction chemotherapy 7+3 regime March 03 through March 10. During his recent hospitalization he was treated for fever, septic shock , pancytopenia and was discharged home on 03/18 to continue on Levaquin and fluconazole and acyclovir. Patient presented after developing fever 101 at home. He took Tylenol and contacted the oncology and was instructed to come in the hospital. Patient has been seen by Dr. Rojas with recommendations to keep IV antibiotics until WBC count recovers. WBC 0.3, hemoglobin 6.7 and platelet count 9. Electrolytes within normal limits, creatinine 0.65, albumin 3.3. He is status post transfusion of 1 unit packed RBCs last night and is receiving a second unit today. Urine and blood cultures are in progress. He was initially on Zosyn transitioned to cefepime. 03/24/2019 the lesion to still feeling poorly. His fevers have trended to improvement although there is a notation he had a fever on Sunday although it's difficult to find and the nursing documentation. Patient still feels poorly. He continues to have pancytopenia with significant neutropenia has not required packed red blood cell or platelet transfusions in the last 48 hours. He is on multiple antimicrobials given his erythroid leukemia status post induction chemotherapy with ongoing absolute neutropenia. Objective - Vital Signs Vital signs: Vital Signs Temp 98.5 F 03/24/19 11:32 Pulse 76 03/24/19 11:32 Resp 16 03/24/19 15:31 BP 112/57 03/24/19 11:32 Pulse Ox 98 03/24/19 11:32 Intake & Output 03/24/19 03/24/19 03/25/19 06:59 18:59 06:59 Intake Total 1180 1290 Output Total 1200 Balance -20 1290 Intake: Intake, IV Titration 700 400 Amount Cefepime 2 gm In Sodium 100 Chloride 0.9% 100 ml @ 200 mls/hr IVPB Q8H TABITHA Rx#:[id number] Sodium Chloride 0.9% 1, 600 400 000 ml @ 50 mls/hr IV . Q20H TABITHA Rx#:[id number] Oral 480 890 Output: Urine 1200 Other: Voiding Method Toilet Toilet Urinal Urinal # Voids 1 3 - Exam Gen: This is a 48-year-old male. Patient is resting in bed appears to be comfortable. No acute distress noted. HEENT: Head is atraumatic, normocephalic. Pupils equal, round. Sclerae is anicteric. Oral mucous membranes are moist. Patient is noted to have multiple white lesions on mucous membranes is not jaundiced NECK: Supple. No JVD. No lymphadenopathy. No thyromegaly. LUNGS: Clear to auscultation. No wheezes or rhonchi. No intercostal retractions. HEART: Regular rate and rhythm. No murmur. ABDOMEN: Soft. Bowel sounds are present. No masses. No tenderness. No flank tenderness. EXTREMITIES: No pedal edema. No calf tenderness. Dorsalis pedis +2 bilaterally. PICC line in place to the left arm with no tenderness, erythema edema. NEUROLOGICAL: Patient is awake, alert and oriented x3. Cranial nerves 2 through 12 are grossly intact. - Labs CBC & Chem 7: 03/24/19 06:58 03/24/19 06:58 Labs: Abnormal Lab Results - Last 24 Hours (Table) 03/24/19 03/24/19 03/24/19 Range/Units 06:58 06:58 11:16 WBC 0.3 L* (3.8-10.6) k/uL RBC 2.57 L (4.30-5.90) m/uL Hgb 7.5 L (13.0-17.5) gm/dL Hct 21.5 L (39.0-53.0) % RDW 15.6 H (11.5-15.5) % Plt Count 26 L (150-450) k/uL Creatinine 0.65 L (0.66-1.25) mg/dL POC Glucose (mg/dL) 114 H (75-99) mg/dL 03/24/19 Range/Units 20:09 WBC (3.8-10.6) k/uL RBC (4.30-5.90) m/uL Hgb (13.0-17.5) gm/dL Hct (39.0-53.0) % RDW (11.5-15.5) % Plt Count (150-450) k/uL Creatinine (0.66-1.25) mg/dL POC Glucose (mg/dL) 158 H (75-99) mg/dL Microbiology - Last 24 Hours (Table) 03/20/19 17:40 Blood Culture - Preliminary Blood No Growth after 96 hours 03/19/19 22:37 Blood Culture - Preliminary Blood No Growth after 96 hours Laboratory Results WBC 0.3 k/uL (3.8-10.6) L* 03/24/19 06:58 RBC 2.57 m/uL (4.30-5.90) L 03/24/19 06:58 Hgb 7.5 gm/dL (13.0-17.5) L 03/24/19 06:58 Hct 21.5 % (39.0-53.0) L 03/24/19 06:58 MCV 83.8 fL (80.0-100.0) 03/24/19 06:58 MCH 29.4 pg (25.0-35.0) 03/24/19 06:58 MCHC 35.0 g/dL (31.0-37.0) 03/24/19 06:58 RDW 15.6 % (11.5-15.5) H 03/24/19 06:58 Plt Count 26 k/uL (150-450) L 03/24/19 06:58 Neutrophils # [employer] PROFESSOR 03/21/19 05:49 Differential Comment 03/24/19 06:58 Manual Slide Review Performed 03/24/19 06:58 Poikilocytosis Slight 03/24/19 06:58 Anisocytosis Slight 03/20/19 07:51 Microcytosis Slight 03/21/19 05:49 Sodium 141 mmol/L (137-145) 03/24/19 06:58 Potassium 4.2 mmol/L (3.5-5.1) 03/24/19 06:58 Chloride 104 mmol/L (98-107) 03/24/19 06:58 Carbon Dioxide 29 mmol/L (22-30) 03/24/19 06:58 Anion Gap 8 mmol/L 03/24/19 06:58 BUN 13 mg/dL (9-20) 03/24/19 06:58 Creatinine 0.65 mg/dL (0.66-1.25) L 03/24/19 06:58 Est GFR (CKD-EPI)AfAm >90 (>60 ml/min/1.73 sqM) 03/24/19 06:58 Est GFR (CKD-EPI)NonAf >90 (>60 ml/min/1.73 sqM) 03/24/19 06:58 Glucose 82 mg/dL (74-99) 03/24/19 06:58 POC Glucose (mg/dL) 158 mg/dL (75-99) H 03/24/19 20:09 POC Glu Milk Treater Marita Rhodes 03/24/19 20:09 Plasma Lactic Acid Cory 1.3 mmol/L (0.7-2.0) 03/19/19 22:12 Calcium 8.9 mg/dL (8.4-10.2) 03/24/19 06:58 Phosphorus 2.6 mg/dL (2.5-4.5) 03/19/19 22:12 Magnesium 2.2 mg/dL (1.6-2.3) 03/19/19 22:12 Total Bilirubin 0.7 mg/dL (0.2-1.3) 03/24/19 06:58 AST 19 U/L (17-59) 03/24/19 06:58 ALT 33 U/L (21-72) 03/24/19 06:58 Alkaline Phosphatase 58 U/L (38-126) 03/24/19 06:58 Total Protein 6.3 g/dL (6.3-8.2) 03/24/19 06:58 Albumin 3.5 g/dL (3.5-5.0) 03/24/19 06:58 Urine Color Yellow 03/19/19 22:12 Urine Appearance Clear (Clear) 03/19/19 22:12 Urine pH 8.0 (5.0-8.0) 03/19/19 22:12 Ur Specific [place] 1.021 (1.001-1.035) 03/19/19 22:12 Urine Protein Trace (Negative) H 03/19/19 22:12 Urine Glucose (UA) Negative (Negative) 03/19/19 22:12 Urine Ketones Negative (Negative) 03/19/19 22:12 Urine Blood Negative (Negative) 03/19/19 22:12 Urine Nitrite Negative (Negative) 03/19/19 22:12 Urine Bilirubin Negative (Negative) 03/19/19 22:12 Urine Urobilinogen 2.0 mg/dL (<2.0) 03/19/19 22:12 Ur Leukocyte Esterase Negative (Negative) 03/19/19 22:12 Influenza Type A RNA Not Detected (Not Detectd) 03/19/19 22:12 Influenza Type B (PCR) Not Detected (Not Detectd) 03/19/19 22:12 Blood Type O Positive 03/20/19 07:51 Blood Type Recheck O Pos 03/20/19 07:51 Bld Type Recheck Status No 03/20/19 07:51 Antibody Screen NEGATIVE 03/20/19 07:51 Crossmatch See Detail 03/20/19 07:51 Transfuse Platelets 03/21/2019 03/21/19 08:30 Spec Expiration Date 03/23/2019235003/20/19 07:51 Microbiology 03/20/19 17:40 Blood Blood Culture - Preliminary No Growth after 96 hours 03/19/19 22:37 Blood Blood Culture - Preliminary No Growth after 96 hours 03/20/19 09:30 Urine,Clean Catch Urine Culture - Final Assessment and Plan (1) Fever Narrative/Plan: This 48-year-old woman has the acute erythroid leukemia status post induction chemotherapy still has not had recovery of his bone marrow. He remains neutropenic and had recurrence of fever. Because of no evidence of known improvement of his underlying leukemia, the recurrent fever was concerning to the oncologist he was brought back in the hospital for close monitoring and enhanced antibiotic therapy. The time of the consult his antibiotics were transitioned from Zosyn to cefepime given his ongoing thrombocytopenia and anemia. The patient is started to respond to fluids, and antibiotic therapy with some improvement of his fever but he still does not feel very well. Oncology believes he will have bone marrow recovery within the next 3-5 days and the plan will be to continue intravenous antibiotic therapy as well as his supportive antimicrobial therapy which includes acyclovir and fluconazole. Ensu ring adequate nutrition as well as hydration will be very helpful. 03/24/2019 patient still feels poorly although appears to have had an improvement of his fever trend. Thirsting fevers today. Await further input from oncology as to the overall plan. If he continues to have lack of recovery of his marrow may need to progress to a bone marrow aspiration soon. Cultures at this time are negative. Remains on cefepime, acyclovir, fluconazole at this time. Current Visit: Yes Status: Acute Priority: High Code(s): R50.9 - FEVER, UNSPECIFIED SNOMED Code(s): 365449160 (2) Neutropenia Current Visit: Yes Status: Acute Code(s): D70.9 - NEUTROPENIA, UNSPECIFIED SNOMED Code(s): 570252704 (3) Pancytopenia Current Visit: Yes Status: Acute Priority: High Code(s): D61.818 - OTHER PANCYTOPENIA SNOMED Code(s): 107555356 (4) Acute erythroid leukemia Current Visit: No Status: Acute Priority: High Code(s): C94.00 - ACUTE ERYTHROID LEUKEMIA, NOT HAVING ACHIEVED REMISSION SNOMED Code(s): 51923562
[2019-03-24] MEDS: traZODone HCL 50 MG TAB PO SCH (21:24)
[2019-03-24] MEDS: VENLAFAXINE HCL ER 150 MG CAP PO SCH (21:24)
[2019-03-24] MEDS: METOPROLOL SUCCINATE (ER) 25 MG TAB.ER.24H PO SCH (21:24)
[2019-03-24] MEDS: MONTELUKAST 10 MG TAB PO SCH (21:24)
[2019-03-25] MEDS: CEFEPIME 2 GM in SODIUM CHLORIDE 0.9% 100 ML IVPB SCH ×3 (04:15→20:43)
[2019-03-25 06:58] LABS: Glucose,Whole Blood 105 mg/dL (75-99)
[2019-03-25] MEDS: INSULIN ASPART (NovoLOG) 100 UNIT/ML VIAL SQ SCH ×4 (07:26→21:29)
[2019-03-25 07:58] LABS: ALT 33 U/L (21-72); AST 19 U/L (17-59); African American GFR (CKD) >90 (>60 ml/min/1.73 sqM); Albumin 3.6 g/dL (3.5-5.0); Alkaline Phosphatase 61 U/L (38-126); Anion Gap 7 mmol/L; Blood Urea Nitrogen 15 mg/dL (9-20); Calcium 8.8 mg/dL (8.4-10.2); Carbon Dioxide 27 mmol/L (22-30); Chloride 107 mmol/L (98-107); Glucose 90 mg/dL (74-99); Potassium 4.3 mmol/L (3.5-5.1); Sodium 141 mmol/L (137-145); Total Bilirubin 0.5 mg/dL (0.2-1.3); Total Protein 6.4 g/dL (6.3-8.2)
[2019-03-25 08:04] LABS: HCT 21.5 % (39.0-53.0); HGB 7.6 gm/dL (13.0-17.5); MCH 29.6 pg (25.0-35.0); MCHC 35.3 g/dL (31.0-37.0); Mean Platelet Volume 5.9; Poikilocytosis Slight; RBC 2.55 m/uL (4.30-5.90); RDW 15.5 % (11.5-15.5)
[2019-03-25 08:06] LABS: WBC 0.4 k/uL (3.8-10.6)
[2019-03-25 08:09] LABS: Platelet Count 41 k/uL (150-450)
[2019-03-25] MEDS: MAG HYDROX/AL HYDROX/SIMETH 30 ML, LIDOCAINE VISCOUS 30 ML, diphenhydrAMINE ELIXIR 75 M... PO SCH ×12 (09:26→21:29)
[2019-03-25] MEDS: DIVALPROEX 500 MG TABLET.DR PO SCH ×2 (09:27→21:29)
[2019-03-25] MEDS: ACYCLOVIR 200 MG CAP PO SCH ×3 (09:27→21:26)
[2019-03-25] MEDS: FLUCONAZOLE 100 MG TAB PO SCH (09:29)
[2019-03-25] MEDS: PANTOPRAZOLE 40 MG TABLET PO SCH (09:29)
[2019-03-25] MEDS: FLUTICASONE 110 MCG INHALER INHALATION SCH ×2 (09:31→20:37)
--- NOTE | 2019-03-25 10:38 | P.PN ---
Subjective This is a 48-year-old male patient who presented to the ER with a fever after talking to his oncologist. Patient has a known history of acute Erythroid leukemia and recent chemotherapy on 03/10/2019. He reports spiking a temperature of 101 F at home at which point he took Tylenol and then called Dr. Rojas, who recommended he go to the ER. Patient states that this is the first elevated temp since discharge on 03/18/2019. He denies any symptoms of dizziness, weakness, lightheadedness, or chills. He denies any rash or open sores on his body. He does complain of mouth soreness when he eats. He has 2 small, white sores on the dorsal side of his tongue. He denies chest pain, shortness of breath, cough. He denies nausea, vomiting, diarrhea. No bowel movement for 2 days. Other past medical history consists of, diabetes type 2, GERD with reflux, hyperlipidemia, hypertension, AR, OA, asthma, chronic cervical/lumbar pain with neurotransmitter to both sides, bilateral carpal tunnel syndrome. On 03/21/2019 patient alert and oriented 3. Patient antibiotics switched to Maxipime per ID. The blood cell remains low at 0.3. HEENT: 6.7 and platelets 9. Patient to receive 1 unit PVCs and 1 unit of platelets prior oncology services. Patient denies chest pain or shortness of breath. Patient denies nausea vomiting or diarrhea. Patient denies any urinary burning or frequency On 03/22/2019 patient was seen and examined on the oncology floor, he is alert and oriented 3 in no apparent distress he denies any pain or discomfort at this time there is no fever or chills no headache or dizziness no chest pain no shortness of breath no cough no nausea or vomiting no abdominal pain no diarrhea no blood in the stools no burning was urination no frequency or urgency no hematuria no weakness or numbness in any of the extremities. On 03/23/2019 patient was seen and examined on the oncology floor he is feeling well and denies any symptoms at this time, he is complaining of episodes of right sided headache, on and off, this was severe last night, a computed tomography scan of the brain was done and did not reveal any acute abnormality. Otherwise there is no fever or chills no dizziness no chest pain no shortness of breath no cough no nausea or vomiting no abdominal pain no diarrhea no burning was urination no frequency or urgency no hematuria, no weakness or numbness in any of his extremities. On 03/24/2019 patient is alert and oriented 3. Patient is still having intermittent headaches. Head CT was performed. Patient remains afebrile. White blood cell 0.3. Oncology services are following. Cultures currently n egative. At this time patient denies chest pain or shortness of breath. Patient denies nausea vomiting or diarrhea. Patient denies any urinary burning or frequency. On 03/25/2019 patient is resting comfortably in bed, he is alert and interactive. He still complains of intermittent headaches. He states that the headache subsides with the Dilaudid. However we encouraged trying the Tylenol first and then the Dilaudid as needed. Patient remains afebrile. WBC 0.4. Patient denies chest pain or shortness of breath. Patient denies nausea, vomiting, diarrhea. Patient states that his appetite has been mild, but he tries to eat what he can. Bowel movements have been normal, every 2 days. He denies any urinary burning or frequency. Objective - Vital Signs Vital signs: Vital Signs Temp 98.7 F 03/25/19 07:46 Pulse 78 03/25/19 07:46 Resp 14 03/25/19 07:46 BP 130/66 03/25/19 07:46 Pulse Ox 98 03/25/19 07:46 Intake & Output 03/24/19 03/25/19 03/25/19 18:59 06:59 18:59 Intake Total 1290 1690 Output Total 1300 Balance 1290 390 Intake: Intake, IV Titration 400 500 Amount Cefepime 2 gm In Sodium 100 Chloride 0.9% 100 ml @ 200 mls/hr IVPB Q8H TABITHA Rx#:[id number] Sodium Chloride 0.9% 1, 400 400 000 ml @ 50 mls/hr IV . Q20H TABITHA Rx#:[id number] Oral 890 1190 Output: Urine 1300 Other: Voiding Method Toilet Toilet Urinal Urinal # Voids 3 2 - Exam Head normocephalic Neck supple Lungs clear to auscultation bilaterally no wheezing or crackles Heart regular rate and rhythm S1-S2, no rub or gallop Abdomen is soft nontender nondistended positive bowel sounds no hepatosplenomegaly Extremities no edema Neuro alert and orientated to 3 Dorsal side of right tongue healed from 2 small sores. - Labs CBC & Chem 7: 03/25/19 07:17 03/25/19 07:17 Labs: Abnormal Lab Results - Last 24 Hours (Table) 03/24/19 03/24/19 03/25/19 Range/Units 11:16 20:09 06:56 WBC (3.8-10.6) k/uL RBC (4.30-5.90) m/uL Hgb (13.0-17.5) gm/dL Hct (39.0-53.0) % Plt Count (150-450) k/uL POC Glucose (mg/dL) 114 H 158 H 105 H (75-99) mg/dL 03/25/19 Range/Units 07:17 WBC 0.4 L* (3.8-10.6) k/uL RBC 2.55 L (4.30-5.90) m/uL Hgb 7.6 L (13.0-17.5) gm/dL Hct 21.5 L (39.0-53.0) % Plt Count 41 L D (150-450) k/uL POC Glucose (mg/dL) (75-99) mg/dL Microbiology - Last 24 Hours (Table) 03/19/19 22:37 Blood Culture - Preliminary Blood No Growth after 120 hours 03/20/19 17:40 Blood Culture - Preliminary Blood No Growth after 96 hours Assessment and Plan Assessment: 1. Febrile. Patient was instructed by Dr. Rojas to come in to the hospital for further monitoring due to persistent fevers. Infectious disease consulted. Blood cultures negative. Chest X-ray read, normal no change. Temperature max was 99F in the ER. Hemoglobin is 7.6, platelet count 41. Antibiotics adjusted to cefepime per ID. Patient remains afebrile. 2. 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 WBC is 0.4. Maintained on acyclovir 3. Acute erythroid leukemia. Diagnosis with bone marrow bx on 02/14/2019. First round of chemo completed on 03/10/2019 4. History of essential hypertension. Home medications Lopressor resumed parameters. 5. History of diabetes mellitus type 2. Will hold home metformin and add sliding scale 6. History of Bipolar/depression on Effexor XL and Depakote 7. History of left ureteral calculus. Stent placed in 2017. Stent has since been removed. 8. History of coronary artery disease. Cardiac stent 1 in 2007 9. History of obstructive sleep apnea maintained on CPAP 10. History of hyperlipidemia. Maintain on Lipitor and fenofibrate 11. Chronic cervical and lumbar pain. Neurostimulator to both sites maintained. 12. Headache. head CT completed showing no acute intracranial process. Encouraged use of Tylenol and Dilaudid as needed. DVT prophylaxis SCDs held due to thrombocytopenia. GI prophylaxis Protonix I performed an examination of the patient and discussed their management with the Nurse Practitioner. I have reviewed the Nurse Practitioner's notes and agree with the documented findings and plan of care
[2019-03-25] MEDS: SODIUM CHLORIDE 0.9% 1,000 ML IV SCH (11:09)
[2019-03-25 11:41] LABS: Glucose,Whole Blood 117 mg/dL (75-99)
[2019-03-25 16:31] LABS: Glucose,Whole Blood 134 mg/dL (75-99)
[2019-03-25] MEDS: ATORVASTATIN 80 MG TAB PO SCH (17:44)
[2019-03-25] MEDS: FENOFIBRATE 160 MG TAB PO SCH (17:44)
--- NOTE | 2019-03-25 18:23 | P.PN ---
Subjective Progress Note Date: 03/25/19 This is a 48-year-old male recently seen on his hospitalization March 13 to the . He was recently diagnosed with acute erythroid leukemia and had induction chemotherapy 7+3 regime March 03 through March 10. During his recent hospitalization he was treated for fever, septic shock , pancytopenia and was discharged home on 03/18 to continue on Levaquin and fluconazole and acyclovir. Patient presented after developing fever 101 at home. He took Tylenol and contacted the oncology and was instructed to come in the hospital. Patient has been seen by Dr. Rojas with recommendations to keep IV antibiotics until WBC count recovers. WBC 0.3, hemoglobin 6.7 and platelet count 9. Electrolytes within normal limits, creatinine 0.65, albumin 3.3. He is status post transfusion of 1 unit packed RBCs last night and is receiving a second unit today. Urine and blood cultures are in progress. He was initially on Zosyn transitioned to cefepime. 03/24/2019 the lesion to still feeling poorly. His fevers have trended to improvement although there is a notation he had a fever on Sunday although it's difficult to find and the nursing documentation. Patient still feels poorly. He continues to have pancytopenia with significant neutropenia has not required packed red blood cell or platelet transfusions in the last 48 hours. He is on multiple antimicrobials given his erythroid leukemia status post induction chemotherapy with ongoing absolute neutropenia. 03/25/2019 patient feels better today. He has not having significant fevers at this time. His pancytopenia has shown some improvement but still has ongoing neutropenia. He has not recorded any transfusions over the last day. Objective - Vital Signs Vital signs: Vital Signs Temp 98.4 F 03/25/19 11:58 Pulse 75 03/25/19 16:00 Resp 16 03/25/19 11:58 BP 120/56 03/25/19 11:58 Pulse Ox 98 03/25/19 11:58 Intake & Output 03/24/19 03/25/19 03/25/19 18:59 06:59 18:59 Intake Total 1290 1690 1340 Output Total 1300 1300 Balance 1290 390 40 Intake: Intake, IV Titration 400 500 500 Amount Cefepime 2 gm In Sodium 100 100 Chloride 0.9% 100 ml @ 200 mls/hr IVPB Q8H [facility] Rx#:[id number] Sodium Chloride 0.9% 1, 400 400 400 000 ml @ 50 mls/hr IV . Q20H [facility] Rx#:[id number] Oral 890 1190 840 Output: Urine 1300 1300 Other: Voiding Method Toilet Toilet Urinal Urinal Urinal # Voids 3 2 2 - Exam Gen: This is a 48-year-old male. Just returning from the shower. No acute distress noted. HEENT: Head is atraumatic, normocephalic. Pupils equal, round. Sclerae is anicteric. Oral mucous membranes are moist. Patient is noted to have multiple white lesions on mucous membranes is not jaundiced NECK: Supple. No JVD. No lymphadenopathy. No thyromegaly. LUNGS: Clear to auscultation. No wheezes or rhonchi. No intercostal retractions. HEART: Regular rate and rhythm. No murmur. ABDOMEN: Soft. Bowel sounds are present. No masses. No tenderness. No flank tenderness. EXTREMITIES: No pedal edema. No calf tenderness. Dorsalis pedis +2 bilaterally. PICC line in place to the left arm with no tenderness, erythema edema. NEUROLOGICAL: Patient is awake, alert and oriented x3. Cranial nerves 2 through 12 are grossly intact. - Labs CBC & Chem 7: 03/25/19 07:17 03/25/19 07:17 Labs: Abnormal Lab Results - Last 24 Hours (Table) 03/24/19 03/25/19 03/25/19 Range/Units 20:09 06:56 07:17 WBC 0.4 L* (3.8-10.6) k/uL RBC 2.55 L (4.30-5.90) m/uL Hgb 7.6 L (13.0-17.5) gm/dL Hct 21.5 L (39.0-53.0) % Plt Count 41 L D (150-450) k/uL POC Glucose (mg/dL) 158 H 105 H (75-99) mg/dL 03/25/19 03/25/19 Range/Units 11:39 16:30 WBC (3.8-10.6) k/uL RBC (4.30-5.90) m/uL Hgb (13.0-17.5) gm/dL Hct (39.0-53.0) % Plt Count (150-450) k/uL POC Glucose (mg/dL) 117 H 134 H (75-99) mg/dL Microbiology - Last 24 Hours (Table) 03/19/19 22:37 Blood Culture - Preliminary Blood No Growth after 120 hours 03/20/19 17:40 Blood Culture - Preliminary Blood No Growth after 96 hours Laboratory Results WBC 0.4 k/uL (3.8-10.6) L* 03/25/19 07:17 RBC 2.55 m/uL (4.30-5.90) L 03/25/19 07:17 Hgb 7.6 gm/dL (13.0-17.5) L 03/25/19 07:17 Hct 21.5 % (39.0-53.0) L 03/25/19 07:17 MCV 84.0 fL (80.0-100.0) 03/25/19 07:17 MCH 29.6 pg (25.0-35.0) 03/25/19 07:17 MCHC 35.3 g/dL (31.0-37.0) 03/25/19 07:17 RDW 15.5 % (11.5-15.5) 03/25/19 07:17 Plt Count 41 k/uL (150-450) L D 03/25/19 07:17 Neutrophils # AS400 OPERATOR 03/21/19 05:49 Differential Comment 03/25/19 07:17 Manual Slide Review Performed 03/25/19 07:17 Poikilocytosis Slight 03/25/19 07:17 Anisocytosis Slight 03/20/19 07:51 Microcytosis Slight 03/21/19 05:49 Sodium 141 mmol/L (137-145) 03/25/19 07:17 Potassium 4.3 mmol/L (3.5-5.1) 03/25/19 07:17 Chloride 107 mmol/L (98-107) 03/25/19 07:17 Carbon Dioxide 27 mmol/L (22-30) 03/25/19 07:17 Anion Gap 7 mmol/L 03/25/19 07:17 BUN 15 mg/dL (9-20) 03/25/19 07:17 Creatinine 0.69 mg/dL (0.66-1.25) 03/25/19 07:17 Est GFR (CKD-EPI)AfAm >90 (>60 ml/min/1.73 sqM) 03/25/19 07:17 Est GFR (CKD-EPI)NonAf >90 (>60 ml/min/1.73 sqM) 03/25/19 07:17 Glucose 90 mg/dL (74-99) 03/25/19 07:17 POC Glucose (mg/dL) 134 mg/dL (75-99) H 03/25/19 16:30 POC Glu Solvent Plant Operator ID Manolo Allen 03/25/19 16:30 Plasma Lactic Acid Cory 1.3 mmol/L (0.7-2.0) 03/19/19 22:12 Calcium 8.8 mg/dL (8.4-10.2) 03/25/19 07:17 Phosphorus 2.6 mg/dL (2.5-4.5) 03/19/19 22:12 Magnesium 2.2 mg/dL (1.6-2.3) 03/19/19 22:12 Total Bilirubin 0.5 mg/dL (0.2-1.3) 03/25/19 07:17 AST 19 U/L (17-59) 03/25/19 07:17 ALT 33 U/L (21-72) 03/25/19 07:17 Alkaline Phosphatase 61 U/L (38-126) 03/25/19 07:17 Total Protein 6.4 g/dL (6.3-8.2) 03/25/19 07:17 Albumin 3.6 g/dL (3.5-5.0) 03/25/19 07:17 Urine Color Yellow 03/19/19 22:12 Urine Appearance Clear (Clear) 03/19/19 22:12 Urine pH 8.0 (5.0-8.0) 03/19/19 22:12 Ur Specific Jal 1.021 (1.001-1.035) 03/19/19 22:12 Urine Protein Trace (Negative) H 03/19/19 22:12 Urine Glucose (UA) Negative (Negative) 03/19/19 22:12 Urine Ketones Negative (Negative) 03/19/19 22:12 Urine Blood Negative (Negative) 03/19/19 22:12 Urine Nitrite Negative (Negative) 03/19/19 22:12 Urine Bilirubin Negative (Negative) 03/19/19 22:12 Urine Urobilinogen 2.0 mg/dL (<2.0) 03/19/19 22:12 Ur Leukocyte Esterase Negative (Negative) 03/19/19 22:12 Influenza Type A RNA Not Detected (Not Detectd) 03/19/19 22:12 Influenza Type B (PCR) Not Detected (Not Detectd) 03/19/19 22:12 Blood Type O Positive 03/20/19 07:51 Blood Type Recheck O Pos 03/20/19 07:51 Bld Type Recheck Status No 03/20/19 07:51 Antibody Screen NEGATIVE 03/20/19 07:51 Crossmatch See Detail 03/20/19 07:51 Transfuse Platelets 03/21/2019 03/21/19 08:30 Spec Expiration Date 03/23/2019 - 2351 03/20/19 07:51 Microbiology 03/19/19 22:37 Blood Blood Culture - Preliminary No Growth after 120 hours 03/20/19 17:40 Blood Blood Culture - Preliminary No Growth after 96 hours 03/20/19 09:30 Urine,Clean Catch Urine Culture - Final Assessment and Plan (1) Fever Narrative/Plan: This 48-year-old woman has the acute erythroid leukemia status post induction chemotherapy still has not had recovery of his bone marrow. He remains neutropenic and had recurrence of fever. Because of no evidence of known improvement of his underlying leukemia, the recurrent fever was concerning to the oncologist he was brought back in the hospital for close monitoring and enhanced antibiotic therapy. The time of the consult his antibiotics were transitioned from Zosyn to cefepime given his ongoing thrombocytopenia and anemia. The patient is started to respond to fluids, and antibiotic therapy with some improvement of his fever but he still does not feel very well. Oncology believes he will have bone marrow recovery within the next 3-5 days and the plan will be to continue intravenous antibiotic therapy as well as his supportive antimicrobial therapy which includes acyclovir and fluconazole. Ensuring adequate nutrition as well as hydration will be very helpful. 03/24/2019 patient still feels poorly although appears to have had an improvement of his fever trend. Thirsting fevers today. Await further input from oncology as to the overall plan. If he continues to have lack of recovery of his marrow may need to progress to a bone marrow aspiration soon. Cultures at this time are negative. Remains on cefepime, acyclovir, fluconazole at this time. 03/25/2019 the patient is feeling better his fevers have resolved and is being monitored by oncology. He continues to have significant pancytopenia but is improving and is not required any transfusions in the last day. He is on cefepime, acyclovir and fluconazole. If he remains afebrile will be able to transition the cefepime to oral agent with outpatient follow-up. If he continues to have lack of recovery of his marrow bone marrow aspiration will likely be performed to evaluate his current response. Current Visit: Yes Status: Acute Priority: High Code(s): R50.9 - FEVER, UNSPECIFIED SNOMED Code(s): 279670983 (2) Neutropenia Current Visit: Yes Status: Acute Code(s): D70.9 - NEUTROPENIA, UNSPECIFIED SNOMED Code(s): 411496967 (3) Pancytopenia Current Visit: Yes Status: Acute Priority: High Code(s): D61.818 - OTHER PANCYTOPENIA SNOMED Code(s): 893433699 (4) Acute erythroid leukemia Current Visit: No Status: Acute Priority: High Code(s): C94.00 - ACUTE ERYTHROID LEUKEMIA, NOT HAVING ACHIEVED REMISSION SNOMED Code(s): 78992117
[2019-03-25 21:12] LABS: Glucose,Whole Blood 116 mg/dL (75-99)
[2019-03-25] MEDS: ACETAMINOPHEN TAB 500 MG TAB PO PRN (21:26)
[2019-03-25] MEDS: METOPROLOL SUCCINATE (ER) 25 MG TAB.ER.24H PO SCH (21:26)
[2019-03-25] MEDS: MONTELUKAST 10 MG TAB PO SCH (21:27)
[2019-03-25] MEDS: traZODone HCL 50 MG TAB PO SCH (21:28)
[2019-03-25] MEDS: VENLAFAXINE HCL ER 150 MG CAP PO SCH (21:28)
--- NOTE | 2019-03-25 23:25 | P.PN ---
Subjective Progress Note Date: 03/25/19 The patient denies any new complaints. No fever/chills/nausea/vomiting/diarrhea. Appetite is fair. No obvious bleeding Objective - Vital Signs Vital signs: Vital Signs Temp 98.7 F 03/25/19 21:00 Pulse 86 03/25/19 21:00 Resp 18 03/25/19 21:00 BP 119/57 03/25/19 21:00 Pulse Ox 100 03/25/19 21:00 Intake & Output 03/25/19 03/25/19 03/26/19 06:59 18:59 06:59 Intake Total 1690 1340 Output Total 1300 1300 200 Balance 390 40 -200 Intake: Intake, IV Titration 500 500 Amount Cefepime 2 gm In Sodium 100 100 Chloride 0.9% 100 ml @ 200 mls/hr IVPB Q8H [facility] Rx#:[id number] Sodium Chloride 0.9% 1, 400 400 000 ml @ 50 mls/hr IV . Q20H [facility] Rx#:[id number] Oral 1190 840 Output: Urine 1300 1300 200 Other: Voiding Method Toilet Urinal Urinal # Voids 2 2 - Constitutional General appearance: Present: no acute distress - EENT Eyes: Present: EOMI ENT: Present: hearing grossly normal, normal oropharynx - Respiratory Respiratory: bilateral: CTA - Cardiovascular Rhythm: regular Heart sounds: normal: S1, S2 - Gastrointestinal General gastrointestinal: Present: soft - Integumentary Integumentary: Present: normal - Neurologic Neurologic: Present: CNII-XII intact - Musculoskeletal Musculoskeletal: Present: generalized weakness, strength equal bilaterally - Psychiatric Psychiatric: Present: A&O x's 3, appropriate affect - Labs CBC & Chem 7: 03/25/19 07:17 03/25/19 07:17 Labs: Abnormal Lab Results - Last 24 Hours (Table) 03/25/19 03/25/19 03/25/19 Range/Units 06:56 07:17 11:39 WBC 0.4 L* (3.8-10.6) k/uL RBC 2.55 L (4.30-5.90) m/uL Hgb 7.6 L (13.0-17.5) gm/dL Hct 21.5 L (39.0-53.0) % Plt Count 41 L D (150-450) k/uL POC Glucose (mg/dL) 105 H 117 H (75-99) mg/dL 03/25/19 03/25/19 Range/Units 16:30 21:11 WBC (3.8-10.6) k/uL RBC (4.30-5.90) m/uL Hgb (13.0-17.5) gm/dL Hct (39.0-53.0) % Plt Count (150-450) k/uL POC Glucose (mg/dL) 134 H 116 H (75-99) mg/dL Microbiology - Last 24 Hours (Table) 03/20/19 17:40 Blood Culture - Preliminary Blood No Growth after 120 hours 03/19/19 22:37 Blood Culture - Preliminary Blood No Growth after 120 hours Assessment and Plan (1) Fever Narrative/Plan: Fever has resolved. Bactrim allergy workup negative. Neutropenia persists. Continue antibiotics per ID till WBC recovers. ID following Current Visit: Yes Status: Acute Priority: High Code(s): R50.9 - FEVER, UNSPECIFIED SNOMED Code(s): 891510798 (2) Pancytopenia Narrative/Plan: Pancytopenia persists. While WBC is still low, hemoglobin is more stable. Platelets are showing spontaneous improvement. This is indicative of early bone marrow recovery. Continue to monitor with transfusion support as needed. Counts today are in a safe range Current Visit: Yes Status: Acute Priority: High Code(s): D61.818 - OTHER PANCYTOPENIA SNOMED Code(s): 925971788
[2019-03-26] MEDS: CEFEPIME 2 GM in SODIUM CHLORIDE 0.9% 100 ML IVPB SCH ×3 (03:33→20:03)
[2019-03-26 05:03] VITALS: RESP 16
[2019-03-26 07:03] LABS: Glucose,Whole Blood 88 mg/dL (75-99)
[2019-03-26] MEDS: INSULIN ASPART (NovoLOG) 100 UNIT/ML VIAL SQ SCH ×4 (07:39→22:37)
[2019-03-26] MEDS: ACYCLOVIR 200 MG CAP PO SCH ×3 (08:33→22:37)
[2019-03-26] MEDS: DIVALPROEX 500 MG TABLET.DR PO SCH ×2 (08:33→20:03)
[2019-03-26] MEDS: FLUCONAZOLE 100 MG TAB PO SCH (08:33)
[2019-03-26] MEDS: PANTOPRAZOLE 40 MG TABLET PO SCH (08:33)
[2019-03-26] MEDS: SODIUM CHLORIDE 0.9% 1,000 ML IV SCH (08:34)
[2019-03-26] MEDS: MAG HYDROX/AL HYDROX/SIMETH 30 ML, LIDOCAINE VISCOUS 30 ML, diphenhydrAMINE ELIXIR 75 M... PO SCH ×12 (08:34→22:37)
[2019-03-26 09:02] LABS: ALT 30 U/L (21-72); AST 20 U/L (17-59); African American GFR (CKD) >90 (>60 ml/min/1.73 sqM); Albumin 3.8 g/dL (3.5-5.0); Alkaline Phosphatase 63 U/L (38-126); Anion Gap 10 mmol/L; Blood Urea Nitrogen 14 mg/dL (9-20); Calcium 9.3 mg/dL (8.4-10.2); Carbon Dioxide 28 mmol/L (22-30); Chloride 106 mmol/L (98-107); Glucose 87 mg/dL (74-99); Potassium 4.9 mmol/L (3.5-5.1); Sodium 144 mmol/L (137-145); Total Bilirubin 0.6 mg/dL (0.2-1.3); Total Protein 6.7 g/dL (6.3-8.2)
[2019-03-26 09:20] LABS: HCT 22.9 % (39.0-53.0); HGB 7.8 gm/dL (13.0-17.5); MCHC 34.2 g/dL (31.0-37.0); Mean Platelet Volume 6.8; Poikilocytosis Slight; RDW 15.5 % (11.5-15.5)
[2019-03-26 09:23] LABS: WBC 0.4 k/uL (3.8-10.6)
[2019-03-26 09:24] LABS: Platelet Count 75 k/uL (150-450)
[2019-03-26] MEDS: FLUTICASONE 110 MCG INHALER INHALATION SCH ×2 (09:50→21:18)
--- NOTE | 2019-03-26 11:08 | P.PN ---
Subjective Progress Note Date: 03/26/19 This is a 48-year-old male patient who presented to the ER with a fever after talking to his oncologist. Patient has a known history of acute Erythroid leukemia and recent chemotherapy on 03/10/2019. He reports spiking a temperature of 101 F at home at which point he took Tylenol and then called Dr. Rojas, who recommended he go to the ER. Patient states that this is the first elevated temp since discharge on 03/18/2019. He denies any symptoms of dizziness, weakness, lightheadedness, or chills. He denies any rash or open sores on his body. He does complain of mouth soreness when he eats. He has 2 small, white sores on the dorsal side of his tongue. He denies chest pain, shortness of breath, cough. He denies nausea, vomiting, diarrhea. No bowel movement for 2 days. Other past medical history consists of, diabetes type 2, GERD with reflux, hyperlipidemia, hypertension, [place], OA, asthma, chronic cervical/lumbar pain with neurotransmitter to both sides, bilateral carpal tunnel syndrome. On 03/21/2019 patient alert and oriented 3. Patient antibiotics switched to Maxipime per ID. The blood cell remains low at 0.3. HEENT: 6.7 and platelets 9. Patient to receive 1 unit PVCs and 1 unit of platelets prior oncology services. Patient denies chest pain or shortness of breath. Patient denies nausea vomiting or diarrhea. Patient denies any urinary burning or frequency On 03/22/2019 patient was seen and examined on the oncology floor, he is alert and oriented 3 in no apparent distress he denies any pain or discomfort at this time there is no fever or chills no headache or dizziness no chest pain no shortness of breath no cough no nausea or vomiting no abdominal pain no diarrhea no blood in the stools no burning was urination no frequency or urgency no hematuria no weakness or numbness in any of the extremities. On 03/23/2019 patient was seen and examined on the oncology floor he is feeling well and denies any symptoms at this time, he is complaining of episodes of rig ht sided headache, on and off, this was severe last night, a computed tomography scan of the brain was done and did not reveal any acute abnormality. Otherwise there is no fever or chills no dizziness no chest pain no shortness of breath no cough no nausea or vomiting no abdominal pain no diarrhea no burning was urination no frequency or urgency no hematuria, no weakness or numbness in any of his extremities. On 03/24/2019 patient is alert and oriented 3. Patient is still having intermittent headaches. Head CT was performed. Patient remains afebrile. White blood cell 0.3. Oncology services are following. Cultures currently negative. At this time patient denies chest pain or shortness of breath. Patient denies nausea vomiting or diarrhea. Patient denies any urinary burning or frequency. On 03/25/2019 patient is resting comfortably in bed, he is alert and interactive. He still complains of intermittent headaches. He states that the headache subsides with the Dilaudid. However we encouraged trying the Tylenol first and then the Dilaudid as needed. Patient remains afebrile. WBC 0.4. Patient denies chest pain or shortness of breath. Patient denies nausea, vomiting, diarrhea. Patient states that his appetite has been mild, but he tries to eat what he can. Bowel movements have been normal, every 2 days. He denies any urinary burning or frequency. On 03/26/2019 patient is resting comfortably in bed. Patient is alert and oriented 3. White blood cell remains at 0.4. Patient is still complaining of occasional intermittent headaches. Patient denies any chest pain or shortness breath. Patient denies nausea vomiting or diarrhea. Patient denies any urinary burning or frequency patient denies any open sores on the body Objective - Vital Signs Vital signs: Vital Signs Temp 98.4 F 03/26/19 05:00 Pulse 79 03/26/19 05:00 Resp 16 03/26/19 05:00 BP 95/51 03/26/19 05:00 Pulse Ox 98 03/26/19 05:00 Intake & Output 03/25/19 03/26/19 03/26/19 18:59 06:59 18:59 Intake Total 1340 1240 Output Total 1300 2070 Balance 40 -830 Intake: Intake, IV Titration 500 650 Amount Cefepime 2 gm In Sodium 100 200 Chloride 0.9% 100 ml @ 200 mls/hr IVPB Q8H [facility] Rx#:[id number] Sodium Chloride 0.9% 1, 400 450 000 ml @ 50 mls/hr IV . Q20H [facility] Rx#:[id number] Oral 840 590 Output: Urine 1300 2070 Other: Voiding Method Urinal Urinal Urinal # Voids 2 - Exam Head normocephalic Neck supple Lungs clear to auscultation bilaterally no wheezing or crackles Heart regular rate and rhythm S1-S2, no rub or gallop Abdomen is soft nontender nondistended positive bowel sounds no hepatosplenomegaly Extremities no edema Neuro alert and orientated to 3 Dorsal side of right tongue healed from 2 small sores. - Labs CBC & Chem 7: 03/26/19 08:07 03/26/19 08:07 Labs: Abnormal Lab Results - Last 24 Hours (Table) 03/25/19 03/25/19 03/25/19 Range/Units 11:39 16:30 21:11 WBC (3.8-10.6) k/uL RBC (4.30-5.90) m/uL Hgb (13.0-17.5) gm/dL Hct (39.0-53.0) % Plt Count (150-450) k/uL Creatinine (0.66-1.25) mg/dL POC Glucose (mg/dL) 117 H 134 H 116 H (75-99) mg/dL 03/26/19 03/26/19 Range/Units 08:07 08:07 WBC 0.4 L* (3.8-10.6) k/uL RBC 2.70 L (4.30-5.90) m/uL Hgb 7.8 L (13.0-17.5) gm/dL Hct 22.9 L (39.0-53.0) % Plt Count 75 L D (150-450) k/uL Creatinine 0.64 L (0.66-1.25) mg/dL POC Glucose (mg/dL) (75-99) mg/dL Microbiology - Last 24 Hours (Table) 03/19/19 22:37 Blood Culture - Final Blood No Growth after 144 hours 03/20/19 17:40 Blood Culture - Preliminary Blood No Growth after 120 hours Assessment and Plan Assessment: 1. Febrile. Patient was instructed by Dr. Rojas to come in to the hospital for further monitoring due to persistent fevers. Infectious disease consulted. Blood cultures negative. Chest X-ray read, normal no change. Temperature max was 99F in the ER. Hemoglobin is 7.6, platelet count 41. Antibiotics adjusted to cefepime per ID. Patient remains afebrile. 2. 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 WBC is 0.4. Maintained on acyclovir 3. Acute erythroid leukemia. Diagnosis with bone marrow bx on 02/14/2019. First round of chemo completed on 03/10/2019 4. History of essential hypertension. Home medications Lopressor resumed parameters. 5. History of diabetes mellitus type 2. Will hold home metformin and add sliding scale 6. History of Bipolar/depression on Effexor XL and Depakote 7. History of left ureteral calculus. Stent placed in 2017. Stent has since been removed. 8. History of coronary artery disease. Cardiac stent 1 in 2007 9. History of obstructive sleep apnea maintained on CPAP 10. History of hyperlipidemia. Maintain on Lipitor and fenofibrate 11. Chronic cervical and lumbar pain. Neurostimulator to both sites maintained. 12. Headache. head CT completed showing no acute intracranial process. Encouraged use of Tylenol and Dilaudid as needed. DVT prophylaxis SCDs held due to thrombocytopenia. GI prophylaxis Protonix I performed an examination of the patient and discussed their management with the Nurse Practitioner. I have reviewed the Nurse Practitioner's notes and agree with the documented findings and plan of care
[2019-03-26 11:16] LABS: Glucose,Whole Blood 147 mg/dL (75-99)
[2019-03-26 17:19] LABS: Glucose,Whole Blood 99 mg/dL (75-99)
[2019-03-26] MEDS: FENOFIBRATE 160 MG TAB PO SCH (18:04)
[2019-03-26] MEDS: ATORVASTATIN 80 MG TAB PO SCH (18:04)
[2019-03-26] MEDS: METOPROLOL SUCCINATE (ER) 25 MG TAB.ER.24H PO SCH (20:03)
[2019-03-26] MEDS: MONTELUKAST 10 MG TAB PO SCH (20:03)
[2019-03-26] MEDS: traZODone HCL 50 MG TAB PO SCH (20:04)
[2019-03-26] MEDS: VENLAFAXINE HCL ER 150 MG CAP PO SCH (20:04)
[2019-03-26 20:15] LABS: Glucose,Whole Blood 140 mg/dL (75-99)
[2019-03-27] MEDS: CEFEPIME 2 GM in SODIUM CHLORIDE 0.9% 100 ML IVPB SCH ×2 (03:47→12:17)
[2019-03-27] MEDS: SODIUM CHLORIDE 0.9% 1,000 ML IV SCH (03:47)
[2019-03-27 05:20] VITALS: BP 106/57; PULSE 85; TEMP 98.5
[2019-03-27 07:08] LABS: Glucose,Whole Blood 95 mg/dL (75-99)
[2019-03-27] MEDS: INSULIN ASPART (NovoLOG) 100 UNIT/ML VIAL SQ SCH ×2 (07:23→11:36)
[2019-03-27] MEDS: FLUCONAZOLE 100 MG TAB PO SCH (07:48)
[2019-03-27] MEDS: DIVALPROEX 500 MG TABLET.DR PO SCH (07:48)
[2019-03-27] MEDS: ACYCLOVIR 200 MG CAP PO SCH (07:48)
[2019-03-27] MEDS: MAG HYDROX/AL HYDROX/SIMETH 30 ML, LIDOCAINE VISCOUS 30 ML, diphenhydrAMINE ELIXIR 75 M... PO SCH ×4 (07:48)
[2019-03-27] MEDS: PANTOPRAZOLE 40 MG TABLET PO SCH (07:48)
[2019-03-27 08:17] LABS: ALT 32 U/L (21-72); AST 20 U/L (17-59); African American GFR (CKD) >90 (>60 ml/min/1.73 sqM); Albumin 4.2 g/dL (3.5-5.0); Alkaline Phosphatase 68 U/L (38-126); Anion Gap 9 mmol/L; Blood Urea Nitrogen 13 mg/dL (9-20); Calcium 9.6 mg/dL (8.4-10.2); Carbon Dioxide 28 mmol/L (22-30); Chloride 104 mmol/L (98-107); Glucose 97 mg/dL (74-99); Potassium 4.3 mmol/L (3.5-5.1); Sodium 141 mmol/L (137-145); Total Bilirubin 0.7 mg/dL (0.2-1.3); Total Protein 7.4 g/dL (6.3-8.2)
[2019-03-27] MEDS: FLUTICASONE 110 MCG INHALER INHALATION SCH (08:23)
[2019-03-27 08:55] LABS: HCT 24.6 % (39.0-53.0); HGB 8.3 gm/dL (13.0-17.5); MCH 28.8 pg (25.0-35.0); MCHC 33.9 g/dL (31.0-37.0); Mean Platelet Volume 6.1; Poikilocytosis Slight; RDW 15.8 % (11.5-15.5)
[2019-03-27 08:58] LABS: WBC 0.8 k/uL (3.8-10.6)
[2019-03-27 10:19] LABS: Platelet Count 91 k/uL (150-450)
[2019-03-27 10:21] LABS: Poikilocytosis (M) Present
[2019-03-27 11:14] LABS: Glucose,Whole Blood 96 mg/dL (75-99)
--- NOTE | 2019-03-27 13:06 | P.DS ---
Providers Date of admission: 03/19/19 23:25 Expected date of discharge: 03/27/19 Attending physician: Veronika Dotson Consults: 03/19/19 23:29 Consult Physician Routine Consulting Provider: Guille Rojas Consult Reason/Comments: known Do you want consulting provider notified?: Yes 03/20/19 09:13 Consult Physician Routine Consulting Provider: Deuce Valenzuela Consult Reason/Comments: fever, chemo Do you want consulting provider notified?: Yes Primary care physician: Veronika Dotson [facility] Course: Discharge diagnosis 1. Neutropenic fever. Patient was instructed by Dr. Rojas to come in to the hospital for further monitoring due to persistent fevers. Infectious disease consulted. Blood cultures negative. Chest X-ray read, normal no change. Temperature max was 99F in the ER. Hemoglobin is 7.6, platelet count 41. Antibiotics adjusted to cefepime per ID. Patient remains afebrile. 2. 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 WBC is 0.4. Maintained on acyclovir. The VBC improving to 0.8. Discussed case with oncology Dr. brush. Patient has been cleared for discharge will resume prior medications including Levaquin, Diflucan and acyclovir. Patient will follow up with oncology services on 03/31/2019 WBC will be checked in office 3. Acute erythroid leukemia. Diagnosis with bone marrow bx on 02/14/2019. First round of chemo completed on 03/10/2019 4. History of essential hypertension. Home medications Lopressor resumed parameters. 5. History of diabetes mellitus type 2. Will hold home metformin and add sliding scale 6. History of Bipolar/depression on Effexor XL and Depakote 7. History of left ureteral calculus. Stent placed in 2017. Stent has since been removed. 8. History of coronary artery disease. Cardiac stent 1 in 2007 9. History of obstructive sleep apnea maintained on CPAP 10. History of hyperlipidemia. Maintain on Lipitor and fenofibrate 11. Chronic cervical and lumbar pain. Neurostimulator to both sites maintained. 12. Headache. head CT completed showing no acute intracranial process. Encouraged use of Tylenol and Dilaudid as needed. Hospital course This is a 48-year-old male patient who presented to the ER with a fever after talking to his oncologist. Patient has a known history of acute Erythroid leukemia and recent chemotherapy on 03/10/2019. He reports spiking a temperature of 101 F at home at which point he took Tylenol and then called Dr. Rojas, who recommended he go to the ER. Patient states that this is the first elevated temp since discharge on 03/18/2019. He denies any symptoms of dizziness, weakness, lightheadedness, or chills. He denies any rash or open sores on his body. He does complain of mouth soreness when he eats. He has 2 small, white sores on the dorsal side of his tongue. He denies chest pain, shortness of breath, cough. He denies nausea, vomiting, diarrhea. No bowel movement for 2 days. Other past medical history consists of, diabetes type 2, GERD with reflux, hyperlipidemia, hypertension, [place], OA, asthma, chronic cervical/lumbar pain with neurotransmitter to both sides, bilateral carpal tunnel syndrome. On 03/21/2019 patient alert and oriented 3. Patient antibiotics switched to Maxipime per ID. The blood cell remains low at 0.3. HEENT: 6.7 and platelets 9. Patient to receive 1 unit PVCs and 1 unit of platelets prior oncology services. Patient denies chest pain or shortness of breath. Patient denies nausea vomiting or diarrhea. Patient denies any urinary burning or frequency On 03/22/2019 patient was seen and examined on the oncology floor, he is alert and oriented 3 in no apparent distress he denies any pain or discomfort at this time there is no fever or chills no headache or dizziness no chest pain no shortness of breath no cough no nausea or vomiting no abdominal pain no diarrhea no blood in the stools no burning was urination no frequency or urgency no hematuria no weakness or numbness in any of the extremities. On 03/23/2019 patient was seen and examined on the oncology floor he is feeling well and denies any symptoms at this time, he is complaining of episodes of right sided headache, on and off, this was severe last night, a computed tomography scan of the brain was done and did not reveal any acute abnormality. Otherwise there is no fever or chills no dizziness no chest pain no shortness of breath no cough no nausea or vomiting no abdominal pain no diarrhea no burning was urination no frequency or urgency no hematuria, no weakness or numbness in a ny of his extremities. On 03/24/2019 patient is alert and oriented 3. Patient is still having intermittent headaches. Head CT was performed. Patient remains afebrile. White blood cell 0.3. Oncology services are following. Cultures currently negative. At this time patient denies chest pain or shortness of breath. Patient denies nausea vomiting or diarrhea. Patient denies any urinary burning or frequency. On 03/25/2019 patient is resting comfortably in bed, he is alert and interactive. He still complains of intermittent headaches. He states that the headache subsides with the Dilaudid. However we encouraged trying the Tylenol first and then the Dilaudid as needed. Patient remains afebrile. WBC 0.4. Patient denies chest pain or shortness of breath. Patient denies nausea, v omiting, diarrhea. Patient states that his appetite has been mild, but he tries to eat what he can. Bowel movements have been normal, every 2 days. He denies any urinary burning or frequency. On 03/26/2019 patient is resting comfortably in bed. Patient is alert and oriented 3. White blood cell remains at 0.4. Patient is still complaining of occasional intermittent headaches. Patient denies any chest pain or shortness breath. Patient denies nausea vomiting or diarrhea. Patient denies any urinary burning or frequency patient denies any open sores on the body On 03/27/2019 patient is alert and oriented 3 resting comfortably in bed. Patient is eager to go home. White blood cell did improve to 0.8. Discussed case with oncology service is patient has been cleared for discharge will resume prior medications including Levaquin Diflucan and acyclovir. Patient to follow- up in office on 03/31/2019 for lab check and further workup. Patient denies any acute symptoms. Patient denies nausea vomiting or diarrhea. Patient denies chest pain or shortness breath. Patient denies any urinary burning or frequency. I performed an examination of the patient and discussed their management with the Nurse Practitioner. I have reviewed the Nurse Practitioner's notes and agree with the documented findings and plan of care Patient Condition at Discharge: Stable Plan - Discharge Summary Discharge Rx Participant: Yes New Discharge Prescriptions: Continue Montelukast Sodium [Singulair] 10 mg PO HS Albuterol Inhaler [Ventolin Hfa Inhaler] 2 puff INHALATION RT-Q6H PRN PRN Reason: Shortness Of Breath Metoprolol Succinate (ER) [Toprol XL] 25 mg PO HS Atorvastatin [Lipitor] 80 mg PO PC-SUPPER traZODone HCL 150 mg PO HS Venlafaxine HCl [Effexor XR] 150 mg PO HS Fenofibrate Nanocrystallized [Fenofibrate] 145 mg PO PC-SUPPER Beclomethasone Dipropionate [Qvar 80 mcg] 2 puff INHALATION RT-BID Nitroglycerin Sl Tabs [Nitrostat] 0.4 mg SUBLINGUAL Q5M PRN PRN Reason: Chest Pain Dicyclomine [Bentyl] 20 mg PO TID Divalproex [Depakote] 500 mg PO BID tablet. metFORMIN HCL [Glucophage] 500 mg PO PC-SUPPER #0 Fluconazole 200 mg PO DAILY #7 tab Levofloxacin [Levaquin] 500 mg PO DAILY #7 tab Acyclovir [Zovirax] 400 mg PO TID #42 cap Mag Hydrox/Al Hydrox/Simeth [Maalox] 30 ml PO TID 14 Days #21 cup Non Formulary Drug PO QID Discharge Medication List Montelukast Sodium [Singulair] 10 mg PO HS 06/01/16 [History] Albuterol Inhaler [Ventolin Hfa Inhaler] 2 puff INHALATION RT-Q6H PRN 10/15/17 [History] Atorvastatin [Lipitor] 80 mg PO PC-SUPPER 10/15/17 [History] Beclomethasone Dipropionate [Qvar 80 mcg] 2 puff INHALATION RT-BID 10/15/17 [History] Fenofibrate Nanocrystallized [Fenofibrate] 145 mg PO PC-SUPPER 10/15/17 [History] Metoprolol Succinate (ER) [Toprol XL] 25 mg PO HS 10/15/17 [History] Venlafaxine HCl [Effexor XR] 150 mg PO HS 10/15/17 [History] traZODone HCL 150 mg PO HS 10/15/17 [History] Dicyclomine [Bentyl] 20 mg PO TID 01/10/19 [History] Nitroglycerin Sl Tabs [Nitrostat] 0.4 mg SUBLINGUAL Q5M PRN 01/10/19 [History] Divalproex [Depakote] 500 mg PO BID tablet. 01/27/19 [Rx] metFORMIN HCL [Glucophage] 500 mg PO PC-SUPPER #0 02/19/19 [Rx] Acyclovir [Zovirax] 400 mg PO TID #42 cap 03/18/19 [Rx] Fluconazole 200 mg PO DAILY #7 tab 03/18/19 [Rx] Levofloxacin [Levaquin] 500 mg PO DAILY #7 tab 03/18/19 [Rx] Mag Hydrox/Al Hydrox/Simeth [Maalox] 30 ml PO TID 14 Days #21 cup 03/18/19 [Rx] Non Formulary Drug PO QID 03/20/19 [History] Follow up Appointment(s)/Referral(s): Guille Rojas MD [STAFF PHYSICIAN] - 03/31/19 (for lab draw; cbc) Veronika Dotson MD [Primary Care Provider] - 1-2 days Patient Instructions/Handouts: Acute Myeloid Leukemia (GEN), Intravenous Chemotherapy (DC), Pancytopenia (GEN) Discharge Disposition: HOME SELF-CARE
--- NOTE | 2019-03-27 21:53 | P.PN ---
Subjective Progress Note Date: 03/27/19 The patient states that he feels well. Denies any new complaints. No fever/chills/nausea/vomiting/mouth sores/ diarrhea. He states that he feels stronger overall. Appetite is well maintained Objective - Vital Signs Vital signs: Vital Signs Temp 98.5 F 03/27/19 05:00 Pulse 85 03/27/19 05:00 Resp 16 03/27/19 05:00 BP 106/57 03/27/19 05:00 Pulse Ox 97 03/27/19 05:00 Intake & Output 03/27/19 03/27/19 03/28/19 06:59 18:59 06:59 Intake Total 850 Balance 850 Weight 90.718 kg Intake: Intake, IV Titration 650 Amount Cefepime 2 gm In Sodium 200 Chloride 0.9% 100 ml @ 200 mls/hr IVPB Q8H TABITHA Rx#:[id number] Sodium Chloride 0.9% 1, 450 000 ml @ 50 mls/hr IV . Q20H TABITHA Rx#:[id number] Oral 200 Other: Voiding Method Urinal Toilet # Voids 2 - Constitutional General appearance: Present: no acute distress - EENT Eyes: Present: EOMI ENT: Present: hearing grossly normal, normal oropharynx - Respiratory Respiratory: bilateral: CTA - Cardiovascular Rhythm: regular Heart sounds: normal: S1, S2 - Gastrointestinal General gastrointestinal: Present: soft - Integumentary Integumentary: Present: normal - Neurologic Neurologic: Present: CNII-XII intact - Musculoskeletal Musculoskeletal: Present: strength equal bilaterally - Psychiatric Psychiatric: Present: A&O x's 3, appropriate affect - Labs CBC & Chem 7: 03/27/19 07:40 03/27/19 07:40 Labs: Abnormal Lab Results - Last 24 Hours (Table) 03/27/19 Range/Units 07:40 WBC 0.8 L* (3.8-10.6) k/uL RBC 2.90 L (4.30-5.90) m/uL Hgb 8.3 L (13.0-17.5) gm/dL Hct 24.6 L (39.0-53.0) % RDW 15.8 H (11.5-15.5) % Plt Count 91 L (150-450) k/uL Microbiology - Last 24 Hours (Table) 03/20/19 17:40 Blood Culture - Final Blood No Growth after 144 hours Assessment and Plan (1) Fever Narrative/Plan: No recurrence of fever noted. He continues on IV antibiotics. Status: Acute Priority: High Code(s): R50.9 - FEVER, UNSPECIFIED SNOMED Code(s): 522472967 (2) Pancytopenia Narrative/Plan: CBC from this a.m. was pending at the time of evaluation. WBC yesterday and was stable at 0.4 but platelets were showing spontaneous increase - If CBC today shows an increase in WBC, the patient can likely be discharged. He will continue follow-up as an outpatient with transfusion support as needed. Status: Acute Priority: High Code(s): D61.818 - OTHER PANCYTOPENIA SNOMED Code(s): 398526722 (3) Acute erythroid leukemia Narrative/Plan: Bone marrow aspiration biopsy of the plan as an outpatient assuming that adequate bone marrow recovery occurs. Status: Acute Priority: High Code(s): C94.00 - ACUTE ERYTHROID LEUKEMIA, NOT HAVING ACHIEVED REMISSION SNOMED Code(s): 10768835 Plan: Add: CBC results from today were available subsequently and reviewed. There is definite upper current, with hemoglobin 8.3, platelets 91 and WBC 0.8. - The above was discussed in detail with the admitting service. As the patient has now been afebrile for several days with negative microbacteria workup and is feeling well, given the definite afford W BC trend that portends recovery, he can be switched over to oral antibiotics and then discharged. It was recommended that he go back to the same prophylactic regimen of Levaquin, Diflucan, and acyclovir. - Should continue the same antibiotic regimen till 03/31/19. He should come to the office on that day for repeat CBC. If WBC has recovered adequately, then antibiotics can be discontinued. Restaging bone marrow aspiration biopsy will also be planned at that time
--- NOTE | 2019-03-30 11:16 | CDI ---
Documentation Clarification Form Date: 03/30/19 From: Geraldine Santiago Phone: If you have a question about this query, please contact Bernarda Lubin, Pump Press Operator at [phone] between 8am and 5pm. Admit Date: 03/19/19 Discharge Date: 03/27/19 Patient Name: Fransisco Reilly Visit Number: [id number] ATTENTION: The Clinical Documentation Specialists (CDI) and [facility] Coding Staff appreciate your assistance in clarifying documentation. Please respond to the clarification below the line at the bottom and electronically sign. The CDI & [facility] Coding staff will review the response and follow-up if needed. Please note: Queries are made part of the Legal Health Record. If you have any questions, please contact the author of this message via ITS. Dear Dr Annette Dotson, The diagnosis neutropenic sepsis secondary to chemotherapy was documented in the 03/21 progress note, but is not noted in subsequent documentation. History/Risk Factors: recent dx AML, chemotherapy, previous admission for septic shock Clinical Indicators: He presents with a fever and admitted due acute myeloid leukemia and recent chemotherapy. Temp of 101 Treatment: IV fluids, IV Zosyn, IV Vanco, IV Maxipime. Discharged suyapa on Fluconazole 200 mg daily, Levaquin 500 mg daily, Please clarify if neutropenic sepsis secondary to chemotherapy was Present/active/treated this admission Ruled out Other, please specify Clinically unable to determine present active and treated this admission MTDD
== END 2019-03-27 14:30 | disposition home or self-care (01) | DRG 871 ==
LOC: EC 22:05 → 3NMEDONC 23:25
PROVIDERS: ADMIT Internal Medicine; ATTEND Internal Medicine
PROC: 30233N1 Transfusion of Nonautologous Red Blood Cells into Peripheral Vein, Percutaneous Approach (ICD-10-PCS; principal; 2019-03-20)
PROC: 30233R1 Transfusion of Nonautologous Platelets into Peripheral Vein, Percutaneous Approach (ICD-10-PCS; 2019-03-21)
DX: A41.9 Sepsis, unspecified organism (principal); D61.810 Antineoplastic chemotherapy induced pancytopenia; C94.00 Acute erythroid leukemia, not having achieved remission; D70.1 Agranulocytosis secondary to cancer chemotherapy; E11.40 Type 2 diabetes mellitus with diabetic neuropathy, unspecified; R50.81 Fever presenting with conditions classified elsewhere; J45.909 Unspecified asthma, uncomplicated; K21.9 Gastro-esophageal reflux disease without esophagitis; E78.5 Hyperlipidemia, unspecified; I25.2 Old myocardial infarction; M19.90 Unspecified osteoarthritis, unspecified site; G47.33 Obstructive sleep apnea (adult) (pediatric); I10 Essential (primary) hypertension; I25.10 Atherosclerotic heart disease of native coronary artery without angina pectoris; G89.29 Other chronic pain; M54.2 Cervicalgia; R51 Headache; M54.5 Low back pain; T45.1X5A Adverse effect of antineoplastic and immunosuppressive drugs, initial encounter; F31.9 Bipolar disorder, unspecified; F41.9 Anxiety disorder, unspecified; G56.03 Carpal tunnel syndrome, bilateral upper limbs; Z79.84 Long term (current) use of oral hypoglycemic drugs; Z79.51 Long term (current) use of inhaled steroids; Z79.899 Other long term (current) drug therapy; Z87.19 Personal history of other diseases of the digestive system; Z96.651 Presence of right artificial knee joint; Z99.89 Dependence on other enabling machines and devices; Z87.442 Personal history of urinary calculi; Z95.5 Presence of coronary angioplasty implant and graft; Z96.9 Presence of functional implant, unspecified; Z98.890 Other specified postprocedural states; Z88.6 Allergy status to analgesic agent; Z91.02 Food additives allergy status; Z91.018 Allergy to other foods; Z91.048 Other nonmedicinal substance allergy status; Z87.891 Personal history of nicotine dependence; Z82.49 Family history of ischemic heart disease and other diseases of the circulatory system; Z83.2 Family history of diseases of the blood and blood-forming organs and certain disorders involving the immune mechanism; Z82.5 Family history of asthma and other chronic lower respiratory diseases; Z83.49 Family history of other endocrine, nutritional and metabolic diseases; Z80.1 Family history of malignant neoplasm of trachea, bronchus and lung; Z80.3 Family history of malignant neoplasm of breast; Z83.3 Family history of diabetes mellitus; Z83.79 Family history of other diseases of the digestive system; Z81.8 Family history of other mental and behavioral disorders
CPT/HCPCS: 36415; 70450; 71046; 80053; 81003; 83605; 83735; 84100; 85025; 86850; 86900; 86901; 86920; 87040; 87086; 87502; 93005; 94640; 94760; 96361; 96365; 99285

== ENCOUNTER 2019-04-03 10:56 | Day surgery (SDC) | payer MEDICARE, OTHER ==
[2019-04-02 13:00] VITALS: BMI 29.8
[~2019-04-03 10:56] MED LIST changes: -ACETAMINOPHEN TAB 500 MG TAB PO ONE; +HYDROmorphone 0.5 MG/0.5 ML SYRINGE IVP PRN; +LACTATED RINGERS 1,000 ML IV SCH; +ONDANSETRON 4 MG/2 ML VIAL IVP PRN; -TRANEXAMIC ACID 1,000 MG in SODIUM CHLORIDE 0.9% 50 ML IVPB ONE; -ceFAZolin IN SWFI 2 GM/20 ML SYRINGE IVP ONE
[2019-04-03 11:16] VITALS: RESP 18; TEMP 97.8
[2019-04-03] MEDS ORDERED: LACTATED RINGERS 1,000 ML IV ONE (11:25)
[2019-04-03 11:34] LABS: Glucose,Whole Blood 95 mg/dL (75-99)
[2019-04-03 12:46] VITALS: BP 115/67; PULSE 85
[2019-04-03 14:09] LABS: Anisocytosis Slight; HCT 22.4 % (39.0-53.0); HGB 7.3 gm/dL (13.0-17.5); Hypochromasia Slight; MCH 28.6 pg (25.0-35.0); MCHC 32.6 g/dL (31.0-37.0); MCV 87.7 fL (80.0-100.0); Mean Platelet Volume 9.8; Poikilocytosis Moderate; RBC 2.56 m/uL (4.30-5.90); RDW 18.1 % (11.5-15.5); WBC 2.3 k/uL (3.8-10.6)
[2019-04-03 14:19] LABS: Platelet Count 87 k/uL (150-450)
[2019-04-03 14:25] LABS: Band Neutrophils % 3 %; Lymphocytes # (M) 0.51 k/uL (1.0-4.8); Monocytes # (M) 0.28 k/uL (0-1.0); Myelocytes # (M) 0.07 k/uL (0); Myelocytes % 3 %; Neutrophils % (M) 60 %; Nucleated Red Blood Cells 1 /100 WBC (0-0); Total Cells Counted 100
[2019-04-03 14:26] LABS: Polychromasia Present
== END 2019-04-03 12:57 | disposition home or self-care (01) ==
LOC: OR 10:56
PROVIDERS: ATTEND Internal Medicine Hematology & Oncology
DX: D61.818 Other pancytopenia (principal); Z88.6 Allergy status to analgesic agent; Z88.8 Allergy status to other drugs, medicaments and biological substances; Z53.09 Procedure and treatment not carried out because of other contraindication
CPT/HCPCS: 85025

== ENCOUNTER 2019-04-11 11:32 | Day surgery (SDC) | payer MEDICARE, OTHER ==
[2019-04-11 12:33] VITALS: TEMP 98.3
[2019-04-11 12:44] LABS: Prothrombin Time 10.6 sec (9.0-12.0)
[2019-04-11 12:57] LABS: Anisocytosis Slight; HCT 26.7 % (39.0-53.0); Hypochromasia Moderate; MCH 29.6 pg (25.0-35.0); MCHC 33.2 g/dL (31.0-37.0); MCV 89.3 fL (80.0-100.0); Mean Platelet Volume 11.5; Poikilocytosis Moderate; RDW 19.9 % (11.5-15.5)
[2019-04-11] MEDS ORDERED: PROPOFOL 10 MG/ML 20 ML VIAL IV ONE (13:18)
[2019-04-11] MEDS ORDERED: LIDOCAINE 1% INJ 10MG/ML (20 ML MDV) ONE (13:18)
[2019-04-11] MEDS ORDERED: fentaNYL (PF) 50 MCG/ML 2 ML AMP ONE (13:18)
[2019-04-11] MEDS ORDERED: MIDAZOLAM 2 MG/2 ML VIAL ONE (13:18)
[2019-04-11 13:20] LABS: Platelet Count 66 k/uL (150-450)
[2019-04-11 13:32] LABS: HGB 8.9 gm/dL (13.0-17.5)
[2019-04-11] MEDS ORDERED: LIDOCAINE 1% 20 ML VIAL (10MG/ML) FOR IV START INTRADERMA PRN (14:15)
[2019-04-11] MEDS ORDERED: LACTATED RINGERS 1,000 ML IV SCH (14:15)
[2019-04-11 14:22] VITALS: RESP 16
[2019-04-11 14:23] VITALS: PULSE 88
[2019-04-11 14:28] LABS: Reticulocyte % 13.3 % (0.5-2.0)
--- NOTE | 2019-04-11 14:31 | CT ---
EXAMINATION TYPE: CT biopsy bone deep DATE OF EXAM: 04/11/2019 COMPARISON: 02/19/2019 HISTORY: Acute erythroid leukemia CT DLP: 605 mGycm The procedure is discussed with the patient, the risks, complications, benefits and alternatives, wer e discussed and any questions were answered. Informed consent was obtained. The patient is placed p elisa on the CT table, prepped and draped in the usual sterile fashion. Utilizing a bone marrow biopsy needle access into the right iliac bone was achieved with 10 cc aspir ation performed and a two core sample obtained. Pathology pending. All elements of maximal barrier te chnique were utilized. The patient remained stable throughout the procedure with no immediate postpro cedural complication. IMPRESSION: 1. Successful CT guided bone marrow biopsy
[2019-04-11 14:50] LABS: Myelocytes # (M) 0.07 k/uL (0); Myelocytes % 2 %; Neutrophils % (M) 74 %; Nucleated Red Blood Cells 2 /100 WBC (0-0); Total Cells Counted 100
[2019-04-11 14:51] LABS: Lymphocytes # (M) 0.23 k/uL (1.0-4.8); Monocytes # (M) 0.56 k/uL (0-1.0); Neutrophils # (M) 2.44 k/uL (1.3-7.7); Polychromasia Present; Tear Drop Cells Present; WBC 3.3 k/uL (3.8-10.6)
[2019-04-11 14:53] VITALS: BP 120/72
== END 2019-04-11 14:56 | disposition home or self-care (01) ==
LOC: RADPROMAIN 11:32
PROVIDERS: ATTEND Internal Medicine Hematology & Oncology
DX: C94.00 Acute erythroid leukemia, not having achieved remission (principal); D61.818 Other pancytopenia; I25.2 Old myocardial infarction; I10 Essential (primary) hypertension; M19.90 Unspecified osteoarthritis, unspecified site; K21.9 Gastro-esophageal reflux disease without esophagitis; E11.9 Type 2 diabetes mellitus without complications; K52.9 Noninfective gastroenteritis and colitis, unspecified; E78.00 Pure hypercholesterolemia, unspecified; E78.5 Hyperlipidemia, unspecified; J45.998 Other asthma; G47.33 Obstructive sleep apnea (adult) (pediatric); Z91.018 Allergy to other foods; Z92.21 Personal history of antineoplastic chemotherapy; Z87.891 Personal history of nicotine dependence; Z99.89 Dependence on other enabling machines and devices; Z91.048 Other nonmedicinal substance allergy status; Z88.6 Allergy status to analgesic agent; Z88.1 Allergy status to other antibiotic agents; Z79.51 Long term (current) use of inhaled steroids; Z79.899 Other long term (current) drug therapy; Z79.84 Long term (current) use of oral hypoglycemic drugs; Z96.651 Presence of right artificial knee joint; Z98.890 Other specified postprocedural states; Z86.79 Personal history of other diseases of the circulatory system; Z82.49 Family history of ischemic heart disease and other diseases of the circulatory system; Z80.3 Family history of malignant neoplasm of breast
CPT/HCPCS: 82947; 85027; 85610; 85045; 36415; 77012; 20225; J2250; J2001; J3010; J2704

== ENCOUNTER 2019-04-16 13:55 | Emergency (ER) | payer MEDICARE, OTHER ==
--- NOTE | 2019-04-16 14:44 | CT ---
EXAMINATION TYPE: CT brain wo con DATE OF EXAM: 04/16/2019 COMPARISON: 03/13/2019, 03/22/2019 HISTORY: Pain CT DLP: 1087.4 mGycm. Automated Exposure Control for Dose Reduction was Utilized. TECHNIQUE: CT scan of the head is performed without contrast. FINDINGS: There is no acute intracranial hemorrhage, mass effect, or midline shift identified. The ventricles and sulci are within normal limits in size. The globes are intact and the visualized sin uses are clear. Partially empty sella turcica noted. IMPRESSION: No acute intracranial hemorrhage, mass effect, or midline shift is seen.
--- NOTE | 2019-04-16 15:04 | ED ---
General Adult HPI - General Chief complaint: Head Injury Stated complaint: Head injury Time Seen by Provider: 04/16/19 14:12 Source: patient, RN notes reviewed Mode of arrival: ambulatory Limitations: no limitations - History of Present Illness Initial comments: 48-year-old male presents to the emergency Department with a complicated past medical history including leukemia presents to the emergency department for a chief complaint of head injury. Patient states that he was trying to get his a couple water when a cigarette rolling machine fell from a top shelf onto his head. Due to his mild headache at this time. States he called his oncologist who recommended he come to the emergency department for a CT brain. Patient denies loss of consciousness. Denies being on blood thinners. Admits to mild headache but states he always has headaches so it may be unrelated. Denies any neck pain.Patient has no other complaints at this time including shortness of breath, chest pain, abdominal pain, nausea or vomiting, or visual changes. - Related Data Home Medications Medication Instructions Recorded Confirmed Montelukast Sodium [Singulair] 10 mg PO HS 06/01/16 04/11/19 Albuterol Inhaler [Ventolin Hfa 2 puff INHALATION RT-Q6H PRN 10/15/17 04/11/19 Inhaler] Atorvastatin [Lipitor] 80 mg PO PC-SUPPER 10/15/17 04/11/19 Beclomethasone Dipropionate [Qvar 2 puff INHALATION RT-BID 10/15/17 04/11/19 80 mcg] Fenofibrate Nanocrystallized 145 mg PO PC-SUPPER 10/15/17 04/11/19 [Fenofibrate] Metoprolol Succinate (ER) [Toprol 25 mg PO HS 10/15/17 04/11/19 XL] Venlafaxine HCl [Effexor XR] 150 mg PO HS 10/15/17 04/11/19 traZODone HCL 150 mg PO HS 10/15/17 04/11/19 Dicyclomine [Bentyl] 20 mg PO TID 01/10/19 04/11/19 Nitroglycerin Sl Tabs [Nitrostat] 0.4 mg SUBLINGUAL Q5M PRN 01/10/19 04/11/19 Non Formulary Drug 1 dose PO QID 03/20/19 04/11/19 Acyclovir [Zovirax] 400 mg PO BID 04/02/19 04/11/19 Mag Hydrox/Al Hydrox/Simeth 30 ml PO TID PRN 04/02/19 04/11/19 [Maalox] Previous Rx's Medication Instructions Recorded Divalproex [Depakote] 500 mg PO BID tablet. 01/27/19 metFORMIN HCL [Glucophage] 500 mg PO PC-SUPPER #0 02/19/19 Fluconazole 200 mg PO DAILY #7 tab 03/18/19 Levofloxacin [Levaquin] 500 mg PO DAILY #7 tab 03/18/19 Allergies Allergy/AdvReac Type Severity Reaction Status Date / Time naproxen [From Naprosyn] Allergy Unknown Rash/Hives Verified 04/16/19 14:07 adhesive tape Allergy Rash/Hives Verified 04/16/19 14:07 ibuprofen Allergy Itching Verified 04/16/19 14:07 mold Allergy Unknown Verified 04/16/19 14:07 vancomycin Allergy Rash/Hives Verified 04/16/19 14:07 carrot AdvReac Dyspnea Verified 04/16/19 14:07 chocolate flavor AdvReac Dyspnea Verified 04/16/19 14:07 grass pollen-perennial rye, AdvReac Dyspnea Verified 04/16/19 14:07 standar Review of Systems ROS Statement: Those systems with pertinent positive or pertinent negative responses have been documented in the HPI. ROS Other: All systems not noted in ROS Statement are negative. Past Medical History Past Medical History: Asthma, Cancer, Chest Pain / Angina, Diabetes Mellitus, GERD/Reflux, GI Bleed, Hyperlipidemia, Hypertension, Myocardial Infarction ([place]), Musculoskeletal Disorder, Osteoarthritis (OA), Sleep Apnea/CPAP/BIPAP Additional Past Medical History / Comment(s): Recent left lower abdominal pain/left urethral stone/pancytopenia. Acute Myeloid Leukemia newly diagnosed, with chemo treatment received in last 30 days. NIDDM type II, neuropathy bilateral hands/feet, colitis, hx lower GI bleed, CPAP use, chronic cervical/lumbar pain-has neurostimulator to both sites, bilateral carpal tunnel syndrome, occasional tinnitis, "soft" cardiac murmur. Last Myocardial Infarction Date:: 2004 History of Any Multi-Drug Resistant Organisms: None Reported Past Surgical History: Heart Catheterization With Stent, Hernia Repair, Joint Replacement Additional Past Surgical History / Comment(s): Bone marrow aspiration/biopsy, right knee arthroscopy X3, right total knee replacement with revision, left knee arthroscopy, cardiac stent X1, stent placed for kidney stone and then removed, COLONOSCOPY, cervical and lumbar neurostimulator implants, left inguinal hernia repair. Past Anesthesia/Blood Transfusion Reactions: No Reported Reaction Date of Last Stent Placement:: 2004 Past Psychological History: Anxiety, Bipolar, Depression Smoking Status: Current every day smoker Past Alcohol Use History: None Reported Past Drug Use History: None Reported - Past Family History Father Family Medical History: Congestive Heart Failure (CHF), Deep Vein Thrombosis (DVT), Myocardial Infarction ([place]), Pulmonary Embolus Additional Family Medical History / Comment(s): UT at age 38. "hole in colon". Mother Family Medical History: Cancer, COPD, Diabetes Mellitus, Hyperlipidemia Additional Family Medical History / Comment(s): Mother had breast and lung cancer. She of lung cancer in her 60s. Sister(s) Family Medical History: Diabetes Mellitus, Liver Disease Additional Family Medical History / Comment(s): Bi-polar, anxiety, hysterectomy, fatty liver. Brother(s) History Unknown: Yes General Exam Limitations: no limitations General appearance: alert, in no apparent distress Head exam: Present: atraumatic (I do not see any evidence of contusion, laceration, or external signs of trauma.), normocephalic, normal inspection Eye exam: Present: normal appearance, PERRL, EOMI. Absent: scleral icterus, conjunctival injection, periorbital swelling ENT exam: Present: normal exam, mucous membranes moist Neck exam: Present: normal inspection, full ROM. Absent: tenderness, meningismus, lymphadenopathy Respiratory exam: Present: normal lung sounds bilaterally. Absent: respiratory distress, wheezes, rales, rhonchi, stridor Cardiovascular Exam: Present: regular rate, normal rhythm, normal heart sounds. Absent: systolic murmur, diastolic murmur, rubs, gallop, clicks Neurological exam: Present: alert, oriented X3, CN II-XII intact, normal gait, other (GCS 15) Course Vital Signs 04/16/19 14:07 Temperature 98.4 F Pulse Rate 88 Respiratory 16 Rate Blood Pressure 128/73 O2 Sat by Pulse 99 Oximetry Medical Decision Making - Medical Decision Making 48-year-old male presents to the emergency department for a chief complaint of head injury. Patient had a cigarette rolling machine fall on his head. No loss of consciousness. No blood thinners. I did review patient's recent laboratory work and he had a platelet count of 66 about [address] brain was ordered. CT brain shows no acute cranial hemorrhage, mass effect, or midline shift. At this time patient can be discharged home to follow up with primary care. He will return here visiting worsening symptoms. Disposition Clinical Impression: Head injury Disposition: HOME SELF-CARE Condition: Good Instructions (If sedation given, give patient instructions): Head Injury (ED) Additional Instructions: Take Tylenol for pain. If you have any worsening symptoms return to the emergency department. Otherwise follow-up with primary care in 1-2 days. Is patient prescribed a controlled substance at d/c from ED?: No Referrals: Veronika Dotson MD [Primary Care Provider] - 1-2 days Time of Disposition: 15:17
[2019-04-16 15:27] VITALS: BP 128/70; PULSE 84; RESP 18; TEMP 97.9
== END 2019-04-16 15:25 | disposition home or self-care (01) ==
LOC: EC 13:55
DX: S09.90XA Unspecified injury of head, initial encounter (principal); J45.909 Unspecified asthma, uncomplicated; K21.9 Gastro-esophageal reflux disease without esophagitis; E78.5 Hyperlipidemia, unspecified; I10 Essential (primary) hypertension; I25.2 Old myocardial infarction; M19.90 Unspecified osteoarthritis, unspecified site; G89.29 Other chronic pain; M54.2 Cervicalgia; M54.5 Low back pain; G47.30 Sleep apnea, unspecified; F31.9 Bipolar disorder, unspecified; F41.9 Anxiety disorder, unspecified; F17.200 Nicotine dependence, unspecified, uncomplicated; Z88.1 Allergy status to other antibiotic agents; Z88.6 Allergy status to analgesic agent; Z91.02 Food additives allergy status; Z91.018 Allergy to other foods; Z91.048 Other nonmedicinal substance allergy status; Z79.51 Long term (current) use of inhaled steroids; Z79.899 Other long term (current) drug therapy; Z85.6 Personal history of leukemia; Z92.21 Personal history of antineoplastic chemotherapy; Z96.82 Presence of neurostimulator; Z99.89 Dependence on other enabling machines and devices; W20.8XXA Other cause of strike by thrown, projected or falling object, initial encounter; Y93.89 Activity, other specified
CPT/HCPCS: 70450; 99283

== ENCOUNTER 2019-04-19 00:11 | Emergency (ER) | payer MEDICARE, OTHER ==
[2019-04-19 00:28] VITALS: BP 139/76; PULSE 100; RESP 20; TEMP 99
--- NOTE | 2019-04-19 00:59 | ED ---
General Adult HPI - General Chief complaint: Skin/Abscess/Foreign Body Stated complaint: Poss Picc Line Infection Time Seen by Provider: 04/19/19 00:35 Source: patient, family, RN notes reviewed, old records reviewed Mode of arrival: ambulatory Limitations: no limitations - History of Present Illness Initial comments: 48-year-old male patient presents to ED chief complaint evaluation of PICC line. Patient reports that he had a PICC line placed on 03/03/2019 for infusion of chemotherapy agents. Patient reports that he was diagnosed with acute mild antwan kemia approximately one month ago. Patient reports evaluation of PICC line. Reports the small amount of redness. Denies any fevers at home. Patient reports that he is a smoker and has had a cough for one day. Denies any other complaints. Systemic: Pt denies fatigue, fever/chills, rash. Pt denies weakness, night sweats, weight loss. Neuro: Pt denies headache, visual disturbances, syncope or pre-syncope. HEENT: Pt denies ocular discharge or irritation, otalgia, rhinorrhea, pharyngitis or notable lymphadenopathy. Cardiopulmonary: Pt denies chest pain, SOB, heart palpitations, dyspnea on e xertion. Abdominal/GI: Pt denies abdominal pain, n/v/d. : Pt denies dysuria, burning w/ urination, frequency/urgency. Denies new onset urinary or bowel incontinence. MSK: Pt denies myalgia, loss of strength or function in extremities. Neuro: Pt denies new onset weakness, paresthesias. - Related Data Home Medications Medication Instructions Recorded Confirmed Montelukast Sodium [Singulair] 10 mg PO HS 06/01/16 04/11/19 Albuterol Inhaler [Ventolin Hfa 2 puff INHALATION RT-Q6H PRN 10/15/17 04/11/19 Inhaler] Atorvastatin [Lipitor] 80 mg PO PC-SUPPER 10/15/17 04/11/19 Beclomethasone Dipropionate [Qvar 2 puff INHALATION RT-BID 10/15/17 04/11/19 80 mcg] Fenofibrate Nanocrystallized 145 mg PO PC-SUPPER 10/15/17 04/11/19 [Fenofibrate] Metoprolol Succinate (ER) [Toprol 25 mg PO HS 10/15/17 04/11/19 XL] Venlafaxine HCl [Effexor XR] 150 mg PO HS 10/15/17 04/11/19 traZODone HCL 150 mg PO HS 10/15/17 04/11/19 Dicyclomine [Bentyl] 20 mg PO TID 01/10/19 04/11/19 Nitroglycerin Sl Tabs [Nitrostat] 0.4 mg SUBLINGUAL Q5M PRN 01/10/19 04/11/19 Non Formulary Drug 1 dose PO QID 03/20/19 04/11/19 Acyclovir [Zovirax] 400 mg PO BID 04/02/19 04/11/19 Mag Hydrox/Al Hydrox/Simeth 30 ml PO TID PRN 04/02/19 04/11/19 [Maalox] Previous Rx's Medication Instructions Recorded Divalproex [Depakote] 500 mg PO BID tablet. 01/27/19 metFORMIN HCL [Glucophage] 500 mg PO PC-SUPPER #0 02/19/19 Fluconazole 200 mg PO DAILY #7 tab 03/18/19 Levofloxacin [Levaquin] 500 mg PO DAILY #7 tab 03/18/19 Allergies Allergy/AdvReac Type Severity Reaction Status Date / Time naproxen [From Naprosyn] Allergy Unknown Rash/Hives Verified 04/19/19 00:28 adhesive tape Allergy Rash/Hives Verified 04/19/19 00:28 ibuprofen Allergy Itching Verified 04/19/19 00:28 mold Allergy Unknown Verified 04/19/19 00:28 vancomycin Allergy Rash/Hives Verified 04/19/19 00:28 carrot AdvReac Dyspnea Verified 04/19/19 00:28 chocolate flavor AdvReac Dyspnea Verified 04/19/19 00:28 grass pollen-perennial rye, AdvReac Dyspnea Verified 04/19/19 00:28 standar Review of Systems ROS Statement: Those systems with pertinent positive or pertinent negative responses have been documented in the HPI. ROS Other: All systems not noted in ROS Statement are negative. Past Medical History Past Medical History: Asthma, Cancer, Chest Pain / Angina, Diabetes Mellitus, GERD/Reflux, GI Bleed, Hyperlipidemia, Hypertension, Myocardial Infarction ([place]), Musculoskeletal Disorder, Osteoarthritis (OA), Sleep Apnea/CPAP/BIPAP Additional Past Medical History / Comment(s): Recent left lower abdominal pain/left urethral stone/pancytopenia. Acute Myeloid Leukemia newly diagnosed, with chemo treatment received in last 30 days. NIDDM type II, neuropathy bilateral hands/feet, colitis, hx lower GI bleed, CPAP use, chronic cervical/l umbar pain-has neurostimulator to both sites, bilateral carpal tunnel syndrome, occasional tinnitis, "soft" cardiac murmur. Last Myocardial Infarction Date:: 2004 History of Any Multi-Drug Resistant Organisms: None Reported Past Surgical History: Heart Catheterization With Stent, Hernia Repair, Joint Replacement Additional Past Surgical History / Comment(s): Bone marrow aspiration/biopsy, right knee arthroscopy X3, right total knee replacement with revision, left knee arthroscopy, cardiac stent X1, stent placed for kidney stone and then removed, COLONOSCOPY, cervical and lumbar neurostimulator implants, left inguinal hernia repair. Past Anesthesia/Blood Transfusion Reactions: No Reported Reaction Date of Last Stent Placement:: 2004 Past Psychological History: Anxiety, Bipolar, Depression Smoking Status: Current every day smoker Past Alcohol Use History: None Reported Past Drug Use History: None Reported - Past Family History Father Family Medical History: Congestive Heart Failure (CHF), Deep Vein Thrombosis (DVT), Myocardial Infarction ([place]), Pulmonary Embolus Additional Family Medical History / Comment(s): [place] at age 38. "hole in colon". Mother Family Medical History: Cancer, COPD, Diabetes Mellitus, Hyperlipidemia Additional Family Medical History / Comment(s): Mother had breast and lung canc er. She of lung cancer in her 60s. Sister(s) Family Medical History: Diabetes Mellitus, Liver Disease Additional Family Medical History / Comment(s): Bi-polar, anxiety, hysterectomy, fatty liver. Brother(s) History Unknown: Yes General Exam - General Exam Comments Initial Comments: Constitutional: NAD, AOX3, Pt has pleasant affect. HEENT: NC/AT, trachea midline, neck supple, no lymphadenopathy. Posterior pharynx non erythematous, without exudates. External ears appear normal, without discharge. Mucous membranes moist. Eyes PERRLA, EOM intact. There is no scleral icterus. No pallor noted. Cardiopulmonary: RRR, no murmurs, rubs or gallops, no JVD noted. Lungs CTAB in anterior and posterior crane. No peripheral edema. Abdominal exam: Abdomen soft and non-distended. Abdomen non-tender to palpation in all 4 quadrants. Bowel sounds active in LLQ. No hepatosplenomegaly. No ecchymosis Neuro: CN II-XII grossly intact. No nuchal rigidity. No raccon eyes, no leal sign, no hemotympanum. No cervical spinal tenderness. MSK: No posterior calf tenderness bilaterally, homans sign negative bilaterally. Posterior tibialis and radial pulse +2 bilaterally. Sensation intact in upper and lower extremities. Full active ROM in upper and lower extremities, 5/5 stregnth. Derm: PICC line evaluated, no signs of infection. Limitations: no limitations Course Vital Signs 04/19/19 04/19/19 00:25 00:56 Temperature 99 F Pulse Rate 100 Respiratory 20 20 Rate Blood Pressure 139/76 O2 Sat by Pulse 98 Oximetry Medical Decision Making - Medical Decision Making 48-year-old male patient presents to ED chief complaint evaluation of PICC line. Patient reports that he had a PICC line placed on 03/03/2019 for infusion of chemotherapy agents. Patient reports that he was diagnosed with acute mild leukemia approximately one month ago. Patient reports evaluation of PICC line. Reports the small amount of redness. Denies any fevers at home. Patient reports that he is a smoker and has had a cough for one day. Denies any other complaints. Vital signs stable, afebrile. Physical exam didn't display acute pathology. PICC line and display signs of infection. Chest x-ray did not display acute process. CBC through from prior. Patient will be discharged, follow up with primary care provider tomorrow and will return to ER physician worsens. Case discussed with Dr. Lopez. - Lab Data Result diagrams: 04/19/19 01:32 Lab Results 04/19/19 Range/Units 01:32 WBC 3.8 (3.8-10.6) k/uL RBC 3.62 L (4.30-5.90) m/uL Hgb 10.9 L (13.0-17.5) gm/dL Hct 32.6 L (39.0-53.0) % MCV 90.0 (80.0-100.0) fL MCH 30.1 (25.0-35.0) pg MCHC 33.4 (31.0-37.0) g/dL RDW 18.8 H (11.5-15.5) % Plt Count 100 L D (150-450) k/uL Neutrophils % 68 % Lymphocytes % 20 % Monocytes % 7 % Eosinophils % 1 % Basophils % 2 % Neutrophils # 2.6 (1.3-7.7) k/uL Lymphocytes # 0.8 L (1.0-4.8) k/uL Monocytes # 0.3 (0-1.0) k/uL Eosinophils # 0.1 (0-0.7) k/uL Basophils # 0.1 (0-0.2) k/uL Hypochromasia Slight Poikilocytosis Moderate Anisocytosis Slight Disposition Clinical Impression: Cough, S/P PICC central line placement Disposition: HOME SELF-CARE Condition: Stable Instructions (If sedation given, give patient instructions): Peripherally Inserted Central Catheters and Midline Catheters (DC) Additional Instructions: follow up with primary care provider tomorrow. Return to ER if condition worsens. Is patient prescribed a controlled substance at d/c from ED?: No Referrals: Veronika Dotson MD [Primary Care Provider] - 1-2 days
--- NOTE | 2019-04-19 01:14 | XR ---
EXAMINATION TYPE: XR chest 2V DATE OF EXAM: 04/19/2019 COMPARISON: 03/19/2019 HISTORY: Cough TECHNIQUE: Frontal and lateral views of the chest are obtained. FINDINGS: Heart and mediastinum are normal. Lungs are clear. There is neural stimulator over the mid thoracic spine. There are no hilar masses. There is no pleural effusion. Bony thorax is intact. IMPRESSION: No active cardiopulmonary disease. Normal heart. No change.
[2019-04-19 01:41] LABS: Anisocytosis Slight; Basophils # (A) 0.1 k/uL (0-0.2); Basophils % (A) 2 %; Eosinophils # (A) 0.1 k/uL (0-0.7); Eosinophils % (A) 1 %; HCT 32.6 % (39.0-53.0); HGB 10.9 gm/dL (13.0-17.5); Hypochromasia Slight; Lymphocytes # (A) 0.8 k/uL (1.0-4.8); Lymphocytes % (A) 20 %; MCH 30.1 pg (25.0-35.0); MCHC 33.4 g/dL (31.0-37.0); Mean Platelet Volume 8.6; Monocytes # (A) 0.3 k/uL (0-1.0); Monocytes % (A) 7 %; Neutrophils # (A) 2.6 k/uL (1.3-7.7); Neutrophils % (A) 68 %; Poikilocytosis Moderate; RBC 3.62 m/uL (4.30-5.90); RDW 18.8 % (11.5-15.5); WBC 3.8 k/uL (3.8-10.6)
[2019-04-19 01:45] LABS: Platelet Count 100 k/uL (150-450)
== END 2019-04-19 02:09 | disposition home or self-care (01) ==
LOC: EC 00:11
DX: Z45.2 Encounter for adjustment and management of vascular access device (principal); R05 Cough; C92.00 Acute myeloblastic leukemia, not having achieved remission; E11.40 Type 2 diabetes mellitus with diabetic neuropathy, unspecified; G89.29 Other chronic pain; M54.5 Low back pain; E78.5 Hyperlipidemia, unspecified; F32.9 Major depressive disorder, single episode, unspecified; F41.9 Anxiety disorder, unspecified; I10 Essential (primary) hypertension; I25.2 Old myocardial infarction; J45.909 Unspecified asthma, uncomplicated; K21.9 Gastro-esophageal reflux disease without esophagitis; G47.30 Sleep apnea, unspecified; M19.90 Unspecified osteoarthritis, unspecified site; F17.200 Nicotine dependence, unspecified, uncomplicated; Z79.51 Long term (current) use of inhaled steroids; Z79.84 Long term (current) use of oral hypoglycemic drugs; Z79.899 Other long term (current) drug therapy; Z95.5 Presence of coronary angioplasty implant and graft; Z88.6 Allergy status to analgesic agent; Z91.048 Other nonmedicinal substance allergy status; Z88.1 Allergy status to other antibiotic agents; Z91.018 Allergy to other foods; Z77.120 Contact with and (suspected) exposure to mold (toxic); Z87.19 Personal history of other diseases of the digestive system; Z92.21 Personal history of antineoplastic chemotherapy; Z99.89 Dependence on other enabling machines and devices; Z96.82 Presence of neurostimulator; Z96.651 Presence of right artificial knee joint; Z80.3 Family history of malignant neoplasm of breast; Z80.1 Family history of malignant neoplasm of trachea, bronchus and lung
CPT/HCPCS: 36415; 71046; 85025; 99284

== ENCOUNTER 2019-05-03 21:41 | Emergency (ER) | payer MEDICARE, OTHER ==
[2019-05-03 21:51] VITALS: TEMP 98.6
[2019-05-03] MEDS ORDERED: SODIUM CHLORIDE 0.9% 1,000 ML IV STA ×2 (22:11→23:11)
--- NOTE | 2019-05-03 22:41 | ED ---
Dizziness HPI - General Chief Complaint: Dizziness Stated Complaint: Abd Pain,Dizziness Time Seen by Provider: 05/03/19 21:57 Source: patient, family Mode of arrival: ambulatory Limitations: no limitations - History of Present Illness Initial Comments: Patient is a 48-year-old male with history of leukemia is presenting to emergency Department with chief complaint of dizziness. Patient reports he was in the bathroom when she felt dizzy and almost fell. Patient denies any loss of consciousness. He states he felt like this after he had chemotherapy treatments. His last chemo treatment was 1.5 months ago. Patient denies any nausea or vomiting. Patient does report diarrhea over the last 2 days. Patient hasn't chest pain, shortness of breath or chest palpitations. Patient denies blurry vision, one-sided weakness or paresthesias. Patient reports he has not have any blood work in over 2 weeks to check for neutropenia. - Related Data Home Medications Medication Instructions Recorded Confirmed Montelukast Sodium [Singulair] 10 mg PO HS 06/01/16 04/11/19 Albuterol Inhaler [Ventolin Hfa 2 puff INHALATION RT-Q6H PRN 10/15/17 04/11/19 Inhaler] Atorvastatin [Lipitor] 80 mg PO PC-SUPPER 10/15/17 04/11/19 Beclomethasone Dipropionate [Qvar 2 puff INHALATION RT-BID 10/15/17 04/11/19 80 mcg] Fenofibrate Nanocrystallized 145 mg PO PC-SUPPER 10/15/17 04/11/19 [Fenofibrate] Metoprolol Succinate (ER) [Toprol 25 mg PO HS 10/15/17 04/11/19 XL] Venlafaxine HCl [Effexor XR] 150 mg PO HS 10/15/17 04/11/19 traZODone HCL 150 mg PO HS 10/15/17 04/11/19 Dicyclomine [Bentyl] 20 mg PO TID 01/10/19 04/11/19 Nitroglycerin Sl Tabs [Nitrostat] 0.4 mg SUBLINGUAL Q5M PRN 01/10/19 04/11/19 Non Formulary Drug 1 dose PO QID 03/20/19 04/11/19 Acyclovir [Zovirax] 400 mg PO BID 04/02/19 04/11/19 Mag Hydrox/Al Hydrox/Simeth 30 ml PO TID PRN 04/02/19 04/11/19 [Maalox] Previous Rx's Medication Instructions Recorded Divalproex [Depakote] 500 mg PO BID tablet. 01/27/19 metFORMIN HCL [Glucophage] 500 mg PO PC-SUPPER #0 02/19/19 Fluconazole 200 mg PO DAILY #7 tab 03/18/19 Levofloxacin [Levaquin] 500 mg PO DAILY #7 tab 03/18/19 Allergies Allergy/AdvReac Type Severity Reaction Status Date / Time naproxen [From Naprosyn] Allergy Unknown Rash/Hives Verified 05/03/19 21:51 adhesive tape Allergy Rash/Hives Verified 05/03/19 21:51 ibuprofen Allergy Itching Verified 05/03/19 21:51 mold Allergy Unknown Verified 05/03/19 21:51 vancomycin Allergy Rash/Hives Verified 05/03/19 21:51 carrot AdvReac Dyspnea Verified 05/03/19 21:51 chocolate flavor AdvReac Dyspnea Verified 05/03/19 21:51 grass pollen-perennial rye, AdvReac Dyspnea Verified 05/03/19 21:51 standar Review of Systems ROS Statement: Those systems with pertinent positive or pertinent negative responses have been documented in the HPI. ROS Other: All systems not noted in ROS Statement are negative. Past Medical History Past Medical History: Asthma, Cancer, Chest Pain / Angina, Diabetes Mellitus, GERD/Reflux, GI Bleed, Hyperlipidemia, Hypertension, Myocardial Infarction ([place]), Musculoskeletal Disorder, Osteoarthritis (OA), Sleep Apnea/CPAP/BIPAP Additional Past Medical History / Comment(s): Recent left lower abdominal pain/left urethral stone/pancytopenia. Acute Myeloid Leukemia newly diagnosed, with chemo treatment received in last 30 days. NIDDM type II, neuropathy bilater al hands/feet, colitis, hx lower GI bleed, CPAP use, chronic cervical/lumbar pain-has neurostimulator to both sites, bilateral carpal tunnel syndrome, occasional tinnitis, "soft" cardiac murmur. Last Myocardial Infarction Date:: 2004 History of Any Multi-Drug Resistant Organisms: None Reported Past Surgical History: Heart Catheterization With Stent, Hernia Repair, Joint Replacement Additional Past Surgical History / Comment(s): Bone marrow aspiration/biopsy, right knee arthroscopy X3, right total knee replacement with revision, left knee arthroscopy, cardiac stent X1, stent placed for kidney stone and then removed, COLONOSCOPY, cervical and lumbar neurostimulator implants, left inguinal hernia repair. Past Anesthesia/Blood Transfusion Reactions: No Reported Reaction Date of Last Stent Placement:: 2004 Past Psychological History: Anxiety, Bipolar, Depression Smoking Status: Current every day smoker Past Alcohol Use History: None Reported Past Drug Use History: None Reported - Past Family History Father Family Medical History: Congestive Heart Failure (CHF), Deep Vein Thrombosis (DVT), Myocardial Infarction ([place]), Pulmonary Embolus Additional Family Medical History / Comment(s): [place] at age 38. "hole in colon". Mother Family Medical History: Cancer, COPD, Diabetes Mellitus, Hyperlipidemia Additional Family Medical History / Comment(s): Mother had breast and lung cancer. She of lung cancer in her 60s. Sister(s) Family Medical History: Diabetes Mellitus, Liver Disease Additional Family Medical History / Comment(s): Bi-polar, anxiety, hysterectomy, fatty liver. Brother(s) History Unknown: Yes General Exam Limitations: no limitations General appearance: alert, in no apparent distress Head exam: Present: atraumatic, normocephalic, normal inspection Eye exam: Present: normal appearance Pupils: Present: normal accommodation ENT exam: Present: normal exam, mucous membranes moist Neck exam: Present: normal inspection, full ROM Respiratory exam: Present: normal lung sounds bilaterally Cardiovascular Exam: Present: regular rate, normal rhythm, normal heart sounds Extremities exam: Present: normal inspection, full ROM Back exam: Present: normal inspection, full ROM Neurological exam: Present: alert, oriented X3 Psychiatric exam: Present: normal affect, normal mood Skin exam: Present: warm, dry, intact, normal color Course Vital Signs 05/03/19 05/03/19 05/04/19 21:47 23:31 02:12 Temperature 98.6 F Pulse Rate 90 85 81 Respiratory 20 18 18 Rate Blood Pressure 139/80 126/72 123/76 O2 Sat by Pulse 98 99 98 Oximetry EKG Findings - EKG Comments: EKG Findings:: Normal sinus rhythm. No ST changes. Ventricular rate 80, OR interval 180, QRS duration 74, QT/QTC 372/429 Medical Decision Making - Medical Decision Making Patient is a 48-year-old male with history of leukemia is presenting to emergency Department with chief complaint of dizziness/lightheadedness. Patient has been having diarrhea over the last 2 days. Patient denies any fevers night sweats or chills. I suspect the dizziness to be secondary to the recent episodes of diarrhea. Lab show mild leukopenia and anemia. However appears to be very close to his baseline. CMP unremarkable. Patient does have a lactate of 2.6. I suspect this to be secondary to dehydration from continuous diarrhea. Patient given antiemetics and 2 L of fluid. On reevaluation patient reports some improvement in his symptoms although he still feels lightheaded after walking to the bathroom. He states there is some dizziness as well when the room is spinning around him. Patient was given 2 mg of Valium and meclizine. Patient was observed. Reevaluation patient reports symptoms have resolved and he is able to ambulate without any issues. No signs of neutropenia fever. Cultures pending. Strict return parameters were thoroughly discussed with patient was understanding and agreeable. Case discussed with physician. - Lab Data Result diagrams: 05/03/19 22:37 05/03/19 22:37 Lab Results 05/03/19 05/03/19 05/03/19 Range/Units 22:37 22:37 22:37 WBC 3.4 L (3.8-10.6) k/uL RBC 4.03 L (4.30-5.90) m/uL Hgb 12.3 L (13.0-17.5) gm/dL Hct 35.6 L (39.0-53.0) % MCV 88.2 (80.0-100.0) fL MCH 30.5 (25.0-35.0) pg MCHC 34.5 (31.0-37.0) g/dL RDW 15.9 H (11.5-15.5) % Plt Count 85 L (150-450) k/uL Neutrophils % (Manual) 63 % Band Neutrophils % 1 % Lymphocytes % (Manual) 27 % Monocytes % (Manual) 8 % Eosinophils % (Manual) 1 % Neutrophils # (Manual) 2.10 (1.3-7.7) k/uL Lymphocytes # (Manual) 0.92 L (1.0-4.8) k/uL Monocytes # (Manual) 0.27 (0-1.0) k/uL Eosinophils # (Manual) 0.03 (0-0.7) k/uL Nucleated RBCs 0 (0-0) /100 WBC Manual Slide Review Performed Sodium 139 (137-145) mmol/L Potassium 3.6 (3.5-5.1) mmol/L Chloride 106 (98-107) mmol/L Carbon Dioxide 23 (22-30) mmol/L Anion Gap 10 mmol/L BUN 12 (9-20) mg/dL Creatinine 0.56 L (0.66-1.25) mg/dL Est GFR (CKD-EPI)AfAm >90 (>60 ml/min/1.73 sqM) Est GFR (CKD-EPI)NonAf >90 (>60 ml/min/1.73 sqM) Glucose 159 H (74-99) mg/dL Lactic Ac Sepsis Rflx Plasma Lactic Acid Cory 2.6 H* (0.7-2.0) mmol/L Calcium 9.5 (8.4-10.2) mg/dL Total Bilirubin 0.4 (0.2-1.3) mg/dL AST 24 (17-59) U/L ALT 45 (21-72) U/L Alkaline Phosphatase 73 (38-126) U/L Total Protein 6.9 (6.3-8.2) g/dL Albumin 4.1 (3.5-5.0) g/dL 05/03/19 Range/Units 23:06 WBC (3.8-10.6) k/uL RBC (4.30-5.90) m/uL Hgb (13.0-17.5) gm/dL Hct (39.0-53.0) % MCV (80.0-100.0) fL MCH (25.0-35.0) pg MCHC (31.0-37.0) g/dL RDW (11.5-15.5) % Plt Count (150-450) k/uL Neutrophils % (Manual) % Band Neutrophils % % Lymphocytes % (Manual) % Monocytes % (Manual) % Eosinophils % (Manual) % Neutrophils # (Manual) (1.3-7.7) k/uL Lymphocytes # (Manual) (1.0-4.8) k/uL Monocytes # (Manual) (0-1.0) k/uL Eosinophils # (Manual) (0-0.7) k/uL Nucleated RBCs (0-0) /100 WBC Manual Slide Review Sodium (137-145) mmol/L Potassium (3.5-5.1) mmol/L Chloride (98-107) mmol/L Carbon Dioxide (22-30) mmol/L Anion Gap mmol/L BUN (9-20) mg/dL Creatinine (0.66-1.25) mg/dL Est GFR (CKD-EPI)AfAm (>60 ml/min/1.73 sqM) Est GFR (CKD-EPI)NonAf (>60 ml/min/1.73 sqM) Glucose (74-99) mg/dL Lactic Ac Sepsis Rflx Y Plasma Lactic Acid Cory (0.7-2.0) mmol/L Calcium (8.4-10.2) mg/dL Total Bilirubin (0.2-1.3) mg/dL AST (17-59) U/L ALT (21-72) U/L Alkaline Phosphatase (38-126) U/L Total Protein (6.3-8.2) g/dL Albumin (3.5-5.0) g/dL Disposition Clinical Impression: Dizziness Disposition: HOME SELF-CARE Condition: Stable Instructions (If sedation given, give patient instructions): Dizziness (ED) Additional Instructions: Please follow up with primary care. Please return to emergency department if symptoms worsen. Is patient prescribed a controlled substance at d/c from ED?: No Referrals: Veronika Dotson MD [Primary Care Provider] - 1-2 days Time of Disposition: 02:07
[2019-05-03 22:50] LABS: HCT 35.6 % (39.0-53.0); HGB 12.3 gm/dL (13.0-17.5); MCH 30.5 pg (25.0-35.0); MCHC 34.5 g/dL (31.0-37.0); MCV 88.2 fL (80.0-100.0); Mean Platelet Volume 9.8; RBC 4.03 m/uL (4.30-5.90); RDW 15.9 % (11.5-15.5); WBC 3.4 k/uL (3.8-10.6)
--- NOTE | 2019-05-03 22:52 | XR ---
EXAMINATION TYPE: XR chest 2V DATE OF EXAM: 05/03/2019 COMPARISON: 04/19/2019 HISTORY: Cough TECHNIQUE: Frontal and lateral views of the chest are obtained. FINDINGS: Heart and mediastinum are normal. Lungs are clear. Diaphragm is normal. There is neural st imulator in the mid thoracic spine. There is no pleural effusion. IMPRESSION: Normal chest. No change.
[2019-05-03 22:57] LABS: ALT 45 U/L (21-72); AST 24 U/L (17-59); African American GFR (CKD) >90 (>60 ml/min/1.73 sqM); Albumin 4.1 g/dL (3.5-5.0); Alkaline Phosphatase 73 U/L (38-126); Anion Gap 10 mmol/L; Blood Urea Nitrogen 12 mg/dL (9-20); Calcium 9.5 mg/dL (8.4-10.2); Carbon Dioxide 23 mmol/L (22-30); Chloride 106 mmol/L (98-107); Glucose 159 mg/dL (74-99); Non-African American GFR(CKD) >90 (>60 ml/min/1.73 sqM); Potassium 3.6 mmol/L (3.5-5.1); Sodium 139 mmol/L (137-145); Total Bilirubin 0.4 mg/dL (0.2-1.3); Total Protein 6.9 g/dL (6.3-8.2)
[2019-05-03 23:17] LABS: Band Neutrophils % 1 %; Eosinophils # (M) 0.03 k/uL (0-0.7); Lymphocytes # (M) 0.92 k/uL (1.0-4.8); Monocytes # (M) 0.27 k/uL (0-1.0); Neutrophils % (M) 63 %; Nucleated Red Blood Cells 0 /100 WBC (0-0); Platelet Count 85 k/uL (150-450); Total Cells Counted 100
[2019-05-03 23:32] VITALS: RESP 18
[2019-05-04] MEDS ORDERED: ACETAMINOPHEN TAB 325 MG TAB PO STA (00:11)
[2019-05-04] MEDS ORDERED: MECLIZINE 12.5 MG TAB PO STA (00:59)
[2019-05-04] MEDS ORDERED: DIAZEPAM 5 MG/ML 2 ML INJ IVP STA (01:00)
[2019-05-04 02:13] VITALS: BP 123/76; PULSE 81
== END 2019-05-04 02:13 | disposition home or self-care (01) ==
LOC: EC 21:41
DX: R42 Dizziness and giddiness (principal); R19.7 Diarrhea, unspecified; D72.819 Decreased white blood cell count, unspecified; D64.9 Anemia, unspecified; Z85.6 Personal history of leukemia; Z92.21 Personal history of antineoplastic chemotherapy; J45.909 Unspecified asthma, uncomplicated; I20.9 Angina pectoris, unspecified; E78.5 Hyperlipidemia, unspecified; I10 Essential (primary) hypertension; I25.2 Old myocardial infarction; K21.9 Gastro-esophageal reflux disease without esophagitis; M19.90 Unspecified osteoarthritis, unspecified site; G47.30 Sleep apnea, unspecified; G89.29 Other chronic pain; M54.2 Cervicalgia; M54.5 Low back pain; F31.9 Bipolar disorder, unspecified; F41.9 Anxiety disorder, unspecified; F17.200 Nicotine dependence, unspecified, uncomplicated; Z88.1 Allergy status to other antibiotic agents; Z88.6 Allergy status to analgesic agent; Z91.02 Food additives allergy status; Z91.018 Allergy to other foods; Z91.048 Other nonmedicinal substance allergy status; Z79.51 Long term (current) use of inhaled steroids; Z79.899 Other long term (current) drug therapy; Z96.89 Presence of other specified functional implants; Z96.651 Presence of right artificial knee joint; Z95.5 Presence of coronary angioplasty implant and graft; Z99.89 Dependence on other enabling machines and devices
CPT/HCPCS: 36415; 93005; 80053; 83605; 85025; 87040; 71046; 99284; 96374; 96361 ×2; J3360

== ENCOUNTER 2019-05-14 15:56 | Emergency (ER) | payer MEDICARE, OTHER ==
[2019-05-14 16:21] VITALS: TEMP 98.5
[2019-05-14 16:50] LABS: Glucose,Whole Blood 96 mg/dL (75-99)
[2019-05-14 17:04] LABS: Appearance,Urine Clear (Clear); Bilirubin,Urine Negative (Negative); Blood,Urine Negative (Negative); Color,Urine Light Yellow; Glucose,Urine (UA) Negative (Negative); Ketones,Urine Negative (Negative); Leukocyte Esterase,Urine Negative (Negative); Nitrite,Urine Negative (Negative); Protein,Urine Negative (Negative); Specific Gravity,Urine 1.004 (1.001-1.035); Urobilinogen,Urine <2.0 mg/dL (<2.0)
[2019-05-14] MEDS ORDERED: ONDANSETRON 4 MG/2 ML VIAL IVP STA (17:05)
[2019-05-14 17:13] LABS: ALT 63 U/L (4-49); AST 48 U/L (17-59); African American GFR (CKD) >90 (>60 ml/min/1.73 sqM); Albumin 4.2 g/dL (3.5-5.0); Alkaline Phosphatase 79 U/L (38-126); Anion Gap 7 mmol/L; Blood Urea Nitrogen 11 mg/dL (9-20); Calcium 9.6 mg/dL (8.4-10.2); Carbon Dioxide 25 mmol/L (22-30); Chloride 105 mmol/L (98-107); Glucose 96 mg/dL (74-99); Magnesium 1.9 mg/dL (1.6-2.3); Non-African American GFR(CKD) >90 (>60 ml/min/1.73 sqM); Sodium 137 mmol/L (137-145); Total Bilirubin 0.6 mg/dL (0.2-1.3); Total Protein 6.9 g/dL (6.3-8.2)
[2019-05-14 17:14] LABS: Basophils % (A) 1 %; Eosinophils # (A) 0.1 k/uL (0-0.7); Eosinophils % (A) 3 %; HCT 34.9 % (39.0-53.0); HGB 12.5 gm/dL (13.0-17.5); INR 0.9 (<1.2); Lymphocytes # (A) 0.6 k/uL (1.0-4.8); Lymphocytes % (A) 18 %; MCH 31.4 pg (25.0-35.0); MCHC 35.7 g/dL (31.0-37.0); MCV 87.7 fL (80.0-100.0); Mean Platelet Volume 13.5; Monocytes # (A) 0.3 k/uL (0-1.0); Monocytes % (A) 8 %; Neutrophils # (A) 2.4 k/uL (1.3-7.7); Neutrophils % (A) 69 %; Poikilocytosis Slight; Prothrombin Time 9.9 sec (9.0-12.0); RBC 3.98 m/uL (4.30-5.90); RDW 15.2 % (11.5-15.5)
[2019-05-14 17:15] LABS: Potassium 4.1 mmol/L (3.5-5.1)
[2019-05-14] MEDS ORDERED: SODIUM CHLORIDE 0.9% 1,000 ML IV STA (17:15)
--- NOTE | 2019-05-14 17:17 | ED ---
General Adult HPI - General Chief complaint: Dizziness Stated complaint: Dizziness Time Seen by Provider: 05/14/19 16:30 Source: EMS Mode of arrival: EMS Limitations: no limitations - History of Present Illness Initial comments: Dictation was produced using doggyloot dictation software. please excuse any grammatical, word or spelling errors. Chief Complaint: 48-year-old male presents with dizziness. History of Present Illness: 48-year-old male presents with dizziness. Patient has past medical history of leukemia. Back in February patient had PICC line placed and underwent one week of chemotherapy. Patient had his cancer treated at [facility] in [place]. Patient has a indwelling PICC line in his left upper extremity that spent been in place since February. Patient states upon waking up this morning his been feeling dizzy. Patient states he does feel lightheaded and does complain of the room spinning. No nausea vomiting. Patient has no pain complaints. Denies any constitutional symptoms. The ROS documented in this emergency department record has been reviewed and confirmed by me. Those systems with pertinent positive or negative responses have been documented in the HPI. All other systems are other negative and/or noncontributory. PHYSICAL EXAM: General Impression: Alert and oriented x3, not in acute distress HEENT: Normocephalic atraumatic, extra-ocular movements intact, pupils equal and reactive to light bilaterally, mucous membranes moist. Cardiovascular: Heart regular rate and rhythm, S1&S2 audible, no murmurs, rubs or gallops Chest: Lungs clear to auscultation bilaterally, no rhonchi, no wheeze, no rales Abdomen: Bowel sounds present, abdomen soft, non-tender, non-distended, no organomegaly Musculoskeletal: Pulses present and equal in all extremities, no peripheral edema Motor: no focal deficits noted Neurological: CN II-XII grossly intact, no focal motor or sensory deficits noted Skin: Intact with no visualized rashes, PICC line in place to the left biceps area, PICC line site is nonerythematous without any induration or tenderness to palpation Psych: Normal affect and mood ED course: 48-year-old male presents chief complaint of dizziness. Signs upon arrival are within acceptable limits. Physical examination is grossly benign. She is nonacute. Return evaluation obtained. Leukopenia 3.5. This appears to be above patient's baseline. Platelet count is 51. Patient is waxing and waning platelet levels. Patient not having any bleeding issues. Coag panel unremarkable. Metabolic panel is negative. Urinalysis negative. Patient given Zofran and Antivert. Patient reports striking improvement of symptoms. Patient clear for discharge. He is advised follow-up with his oncologist. Patient understandable agreeable to disposition. EKG interpretation: Ventricular rate 81, normal sinus rhythm, SC interval 184, QRS 76, QTC 425. No SC prolongation, no QTC prolongation, no ST or T-wave changes noted. Overall, this EKG is unremarkable - Related Data Home Medications Medication Instructions Recorded Confirmed Montelukast Sodium [Singulair] 10 mg PO HS 06/01/16 04/11/19 Albuterol Inhaler [Ventolin Hfa 2 puff INHALATION RT-Q6H PRN 10/15/17 04/11/19 Inhaler] Atorvastatin [Lipitor] 80 mg PO PC-SUPPER 10/15/17 04/11/19 Beclomethasone Dipropionate [Qvar 2 puff INHALATION RT-BID 10/15/17 04/11/19 80 mcg] Fenofibrate Nanocrystallized 145 mg PO PC-SUPPER 10/15/17 04/11/19 [Fenofibrate] Metoprolol Succinate (ER) [Toprol 25 mg PO HS 10/15/17 04/11/19 XL] Venlafaxine HCl [Effexor XR] 150 mg PO HS 10/15/17 04/11/19 traZODone HCL 150 mg PO HS 10/15/17 04/11/19 Dicyclomine [Bentyl] 20 mg PO TID 01/10/19 04/11/19 Nitroglycerin Sl Tabs [Nitrostat] 0.4 mg SUBLINGUAL Q5M PRN 01/10/19 04/11/19 Non Formulary Drug 1 dose PO QID 03/20/19 04/11/19 Acyclovir [Zovirax] 400 mg PO BID 04/02/19 04/11/19 Mag Hydrox/Al Hydrox/Simeth 30 ml PO TID PRN 04/02/19 04/11/19 [Maalox] Previous Rx's Medication Instructions Recorded Divalproex [Depakote] 500 mg PO BID tablet. 01/27/19 metFORMIN HCL [Glucophage] 500 mg PO PC-SUPPER #0 02/19/19 Fluconazole 200 mg PO DAILY #7 tab 03/18/19 Levofloxacin [Levaquin] 500 mg PO DAILY #7 tab 03/18/19 Allergies Allergy/AdvReac Type Severity Reaction Status Date / Time naproxen [From Naprosyn] Allergy Unknown Rash/Hives Verified 05/03/19 21:51 adhesive tape Allergy Rash/Hives Verified 05/03/19 21:51 ibuprofen Allergy Itching Verified 05/03/19 21:51 mold Allergy Unknown Verified 05/03/19 21:51 vancomycin Allergy Rash/Hives Verified 05/03/19 21:51 carrot AdvReac Dyspnea Verified 05/03/19 21:51 chocolate flavor AdvReac Dyspnea Verified 05/03/19 21:51 grass pollen-perennial rye, AdvReac Dyspnea Verified 05/03/19 21:51 standar Review of Systems ROS Statement: Those systems with pertinent positive or pertinent negative responses have been documented in the HPI. ROS Other: All systems not noted in ROS Statement are negative. Past Medical History Past Medical History: Asthma, Cancer, Chest Pain / Angina, Diabetes Mellitus, GERD/Reflux, GI Bleed, Hyperlipidemia, Hypertension, Myocardial Infarction ([place]), Musculoskeletal Disorder, Osteoarthritis (OA), Sleep Apnea/CPAP/BIPAP Additional Past Medical History / Comment(s): Recent left lower abdominal pain/left urethral stone/pancytopenia. Acute Myeloid Leukemia newly diagnosed, with chemo treatment received in last 30 days. NIDDM type II, neuropathy bilateral hands/feet, colitis, hx lower GI bleed, CPAP use, chronic cervical/lumbar pain-has neurostimulator to both sites, bilateral carpal tunnel syndrome, occasional tinnitis, "soft" cardiac murmur. Last Myocardial Infarction Date:: 2004 History of Any Multi-Drug Resistant Organisms: None Reported Past Surgical History: Heart Catheterization With Stent, Hernia Repair, Joint Replacement Additional Past Surgical History / Comment(s): Bone marrow aspiration/biopsy, right knee arthroscopy X3, right total knee replacement with revision, left knee arthroscopy, cardiac stent X1, stent placed for kidney stone and then removed, COLONOSCOPY, cervical and lumbar neurostimulator implants, left inguinal hernia repair. Past Anesthesia/Blood Transfusion Reactions: No Reported Reaction Date of Last Stent Placement:: 2004 Past Psychological History: Anxiety, Bipolar, Depression Smoking Status: Current every day smoker Past Alcohol Use History: None Reported Past Drug Use History: None Reported - Past Family History Father Family Medical History: Congestive Heart Failure (CHF), Deep Vein Thrombosis (DVT), Myocardial Infarction ([place]), Pulmonary Embolus Additional Family Medical History / Comment(s): [place] at age 38. "hole in colon". Mother Family Medical History: Cancer, COPD, Diabetes Mellitus, Hyperlipidemia Additional Family Medical History / Comment(s): Mother had breast and lung cancer. She of lung cancer in her 60s. Sister(s) Family Medical History: Diabetes Mellitus, Liver Disease Additional Family Medical History / Comment(s): Bi-polar, anxiety, hysterectomy, fatty liver. Brother(s) History Unknown: Yes General Exam Limitations: no limitations Course Vital Signs 05/14/19 05/14/19 16:10 19:05 Temperature 98.5 F Pulse Rate 87 80 Respiratory 20 18 Rate Blood Pressure 148/79 123/71 O2 Sat by Pulse 98 98 Oximetry Medical Decision Making - Lab Data Result diagrams: 05/14/19 18:12 05/14/19 16:45 Lab Results 05/14/19 05/14/19 05/14/19 Range/Units 16:44 16:45 16:45 WBC 3.5 L (3.8-10.6) k/uL RBC 3.98 L (4.30-5.90) m/uL Hgb 12.5 L (13.0-17.5) gm/dL Hct 34.9 L (39.0-53.0) % MCV 87.7 (80.0-100.0) fL MCH 31.4 (25.0-35.0) pg MCHC 35.7 (31.0-37.0) g/dL RDW 15.2 (11.5-15.5) % Plt Count (150-450) k/uL Neutrophils % 69 % Lymphocytes % 18 % Monocytes % 8 % Eosinophils % 3 % Basophils % 1 % Neutrophils # 2.4 (1.3-7.7) k/uL Lymphocytes # 0.6 L (1.0-4.8) k/uL Monocytes # 0.3 (0-1.0) k/uL Eosinophils # 0.1 (0-0.7) k/uL Basophils # 0.0 (0-0.2) k/uL Poikilocytosis Slight PT (9.0-12.0) sec INR (<1.2) APTT (22.0-30.0) sec Sodium 137 (137-145) mmol/L Potassium 4.1 (3.5-5.1) mmol/L Chloride 105 (98-107) mmol/L Carbon Dioxide 25 (22-30) mmol/L Anion Gap 7 mmol/L BUN 11 (9-20) mg/dL Creatinine 0.50 L (0.66-1.25) mg/dL Est GFR (CKD-EPI)AfAm >90 (>60 ml/min/1.73 sqM) Est GFR (CKD-EPI)NonAf >90 (>60 ml/min/1.73 sqM) Glucose 96 (74-99) mg/dL POC Glucose (mg/dL) 96 (75-99) mg/dL POC Glu [place] [employer] ID Lorena Savage Calcium 9.6 (8.4-10.2) mg/dL Magnesium 1.9 (1.6-2.3) mg/dL Total Bilirubin 0.6 (0.2-1.3) mg/dL AST 48 (17-59) U/L ALT 63 H (4-49) U/L Alkaline Phosphatase 79 (38-126) U/L Total Protein 6.9 (6.3-8.2) g/dL Albumin 4.2 (3.5-5.0) g/dL Urine Color Urine Appearance (Clear) Urine pH (5.0-8.0) Ur Specific [place] (1.001-1.035) Urine Protein (Negative) Urine Glucose (UA) (Negative) Urine Ketones (Negative) Urine Blood (Negative) Urine Nitrite (Negative) Urine Bilirubin (Negative) Urine Urobilinogen (<2.0) mg/dL Ur Leukocyte Esterase (Negative) 05/14/19 05/14/19 05/14/19 Range/Units 16:45 16:45 18:12 WBC (3.8-10.6) k/uL RBC (4.30-5.90) m/uL Hgb (13.0-17.5) gm/dL Hct (39.0-53.0) % MCV (80.0-100.0) fL MCH (25.0-35.0) pg MCHC (31.0-37.0) g/dL RDW (11.5-15.5) % Plt Count 51 L (150-450) k/uL Neutrophils % % Lymphocytes % % Monocytes % % Eosinophils % % Basophils % % Neutrophils # (1.3-7.7) k/uL Lymphocytes # (1.0-4.8) k/uL Monocytes # (0-1.0) k/uL Eosinophils # (0-0.7) k/uL Basophils # (0-0.2) k/uL Poikilocytosis PT 9.9 (9.0-12.0) sec INR 0.9 (<1.2) APTT 25.0 (22.0-30.0) sec Sodium (137-145) mmol/L Potassium (3.5-5.1) mmol/L Chloride (98-107) mmol/L Carbon Dioxide (22-30) mmol/L Anion Gap mmol/L BUN (9-20) mg/dL Creatinine (0.66-1.25) mg/dL Est GFR (CKD-EPI)AfAm (>60 ml/min/1.73 sqM) Est GFR (CKD-EPI)NonAf (>60 ml/min/1.73 sqM) Glucose (74-99) mg/dL POC Glucose (mg/dL) (75-99) mg/dL POC Glu [place] [employer] ID Calcium (8.4-10.2) mg/dL Magnesium (1.6-2.3) mg/dL Total Bilirubin (0.2-1.3) mg/dL AST (17-59) U/L ALT (4-49) U/L Alkaline Phosphatase (38-126) U/L Total Protein (6.3-8.2) g/dL Albumin (3.5-5.0) g/dL Urine Color Light Yellow Urine Appearance Clear (Clear) Urine pH 6.0 (5.0-8.0) Ur Specific [place] 1.004 (1.001-1.035) Urine Protein Negative (Negative) Urine Glucose (UA) Negative (Negative) Urine Ketones Negative (Negative) Urine Blood Negative (Negative) Urine Nitrite Negative (Negative) Urine Bilirubin Negative (Negative) Urine Urobilinogen <2.0 (<2.0) mg/dL Ur Leukocyte Esterase Negative (Negative) Disposition Clinical Impression: Dizziness Disposition: HOME SELF-CARE Condition: Good Instructions (If sedation given, give patient instructions): Dizziness (ED) Is patient prescribed a controlled substance at d/c from ED?: No Referrals: Veronika Dotson MD [Primary Care Provider] - 1-2 days Time of Disposition: 19:44
[2019-05-14 18:06] LABS: WBC 3.5 k/uL (3.8-10.6)
[2019-05-14 19:06] VITALS: BP 123/71; PULSE 80; RESP 18
[2019-05-14] MEDS ORDERED: MECLIZINE 12.5 MG TAB PO STA (19:26)
[2019-05-14 19:32] LABS: Mean Platelet Volume 11.2; Platelet Count 51 k/uL (150-450)
== END 2019-05-14 19:50 | disposition home or self-care (01) ==
LOC: EC 15:56
DX: R42 Dizziness and giddiness (principal); D72.819 Decreased white blood cell count, unspecified; J45.909 Unspecified asthma, uncomplicated; K21.9 Gastro-esophageal reflux disease without esophagitis; I10 Essential (primary) hypertension; E78.5 Hyperlipidemia, unspecified; I25.2 Old myocardial infarction; G47.30 Sleep apnea, unspecified; E11.40 Type 2 diabetes mellitus with diabetic neuropathy, unspecified; F41.9 Anxiety disorder, unspecified; F31.9 Bipolar disorder, unspecified; F17.200 Nicotine dependence, unspecified, uncomplicated; Z79.899 Other long term (current) drug therapy; Z88.6 Allergy status to analgesic agent; Z91.048 Other nonmedicinal substance allergy status; Z91.018 Allergy to other foods; Z88.1 Allergy status to other antibiotic agents; Z91.09 Other allergy status, other than to drugs and biological substances; Z95.5 Presence of coronary angioplasty implant and graft; Z96.651 Presence of right artificial knee joint
CPT/HCPCS: 36415; 93005; 80053; 83735; 85025; 85049; 85610; 85730; 81003; 99284; 96374; 96361; J2405

== ENCOUNTER 2019-05-23 14:02 | Emergency (ER) | payer MEDICARE, OTHER ==
--- NOTE | 2019-05-23 15:03 | ED ---
Fever HPI - General Chief Complaint: Fever Stated Complaint: Fever, Body Ache Time Seen by Provider: 05/23/19 14:54 Source: patient Mode of arrival: ambulatory Limitations: no limitations - History of Present Illness Initial Comments: Patient is a 48-year-old male with history of AML presenting to the emergency department with a chief complaint of fever. Patient reports a recent diagnosis of AML in February and he was immediately started chemotherapy. Patient reports his next scheduled appointment for her second round of chemotherapy is in early May. Patient reports, today he was in the hospital for routine lab work and x-ray. Patient reports she developed sudden onset of chills. Patient also reports increased shortness of breath over the last day. He also reports slight swelling in the right lower extremity. No history of DVT or PE. He is a smoker. - Related Data Home Medications Medication Instructions Recorded Confirmed Montelukast Sodium [Singulair] 10 mg PO HS 06/01/16 04/11/19 Albuterol Inhaler [Ventolin Hfa 2 puff INHALATION RT-Q6H PRN 10/15/17 04/11/19 Inhaler] Atorvastatin [Lipitor] 80 mg PO PC-SUPPER 10/15/17 04/11/19 Beclomethasone Dipropionate [Qvar 2 puff INHALATION RT-BID 10/15/17 04/11/19 80 mcg] Fenofibrate Nanocrystallized 145 mg PO PC-SUPPER 10/15/17 04/11/19 [Fenofibrate] Metoprolol Succinate (ER) [Toprol 25 mg PO HS 10/15/17 04/11/19 XL] Venlafaxine HCl [Effexor XR] 150 mg PO HS 10/15/17 04/11/19 traZODone HCL 150 mg PO HS 10/15/17 04/11/19 Dicyclomine [Bentyl] 20 mg PO TID 01/10/19 04/11/19 Nitroglycerin Sl Tabs [Nitrostat] 0.4 mg SUBLINGUAL Q5M PRN 01/10/19 04/11/19 Non Formulary Drug 1 dose PO QID 03/20/19 04/11/19 Acyclovir [Zovirax] 400 mg PO BID 04/02/19 04/11/19 Mag Hydrox/Al Hydrox/Simeth 30 ml PO TID PRN 04/02/19 04/11/19 [Maalox] Previous Rx's Medication Instructions Recorded Divalproex [Depakote] 500 mg PO BID tablet. 01/27/19 metFORMIN HCL [Glucophage] 500 mg PO PC-SUPPER #0 02/19/19 Fluconazole 200 mg PO DAILY #7 tab 03/18/19 Levofloxacin [Levaquin] 500 mg PO DAILY #7 tab 03/18/19 Azithromycin [Zithromax Z-pack] 0 mg PO DIRECTED #1 pack 05/23/19 Allergies Allergy/AdvReac Type Severity Reaction Status Date / Time naproxen [From Naprosyn] Allergy Unknown Rash/Hives Verified 05/03/19 21:51 adhesive tape Allergy Rash/Hives Verified 05/03/19 21:51 ibuprofen Allergy Itching Verified 05/03/19 21:51 mold Allergy Unknown Verified 05/03/19 21:51 vancomycin Allergy Rash/Hives Verified 05/03/19 21:51 carrot AdvReac Dyspnea Verified 05/03/19 21:51 chocolate flavor AdvReac Dyspnea Verified 05/03/19 21:51 grass pollen-perennial rye, AdvReac Dyspnea Verified 05/03/19 21:51 standar Review of Systems ROS Statement: Those systems with pertinent positive or pertinent negative responses have been documented in the HPI. ROS Other: All systems not noted in ROS Statement are negative. Past Medical History Past Medical History: Asthma, Cancer, Chest Pain / Angina, Diabetes Mellitus, GERD/Reflux, GI Bleed, Hyperlipidemia, Hypertension, [place]ocardial Infarction ([place]), Musculoskeletal Disorder, Osteoarthritis (OA), Sleep Apnea/CPAP/BIPAP Additional Past Medical History / Comment(s): Recent left lower abdominal pain/left urethral stone/pancytopenia. NIDDM type II, neuropathy bilateral hands/feet, colitis, hx lower GI bleed, CPAP use, chronic cervical/lumbar pain- has neurostimulator to both sites, bilateral carpal tunnel syndrome, occasional tinnitis, "soft" cardiac murmur. Last Myocardial Infarction Date:: 2004 History of Any Multi-Drug Resistant Organisms: None Reported Past Surgical History: Heart Catheterization With Stent, Hernia Repair, Joint Replacement Additional Past Surgical History / Comment(s): Bone marrow aspiration/biopsy, right knee arthroscopy X3, right total knee replacement with revision, left knee arthroscopy, cardiac stent X1, stent placed for kidney stone and then removed, COLONOSCOPY, cervical and lumbar neurostimulator implants, left inguinal hernia repair. Past Anesthesia/Blood Transfusion Reactions: No Reported Reaction Date of Last Stent Placement:: 2004 Past Psychological History: Anxiety, Bipolar, Depression Smoking Status: Current every day smoker Past Alcohol Use History: None Reported Past Drug Use History: None Reported - Past Family History Father Family Medical History: Congestive Heart Failure (CHF), Deep Vein Thrombosis (DVT), Myocardial Infarction ([place]), Pulmonary Embolus Additional Family Medical History / Comment(s): [place] at age 38. "hole in colon". Mother Family Medical History: Cancer, COPD, Diabetes Mellitus, Hyperlipidemia Additional Family Medical History / Comment(s): Mother had breast and lung cancer. She of lung cancer in her 60s. Sister(s) Family Medical History: Diabetes Mellitus, Liver Disease Additional Family Medical History / Comment(s): Bi-polar, anxiety, hysterectomy, fatty liver. Brother(s) History Unknown: Yes General Exam Limitations: no limitations General appearance: alert, in no apparent distress Head exam: Present: atraumatic, normocephalic, normal inspection Eye exam: Present: normal appearance, PERRL, EOMI Pupils: Present: normal accommodation ENT exam: Present: normal exam, mucous membranes moist Neck exam: Present: normal inspection, full ROM Respiratory exam: Present: normal lung sounds bilaterally. Absent: wheezes Cardiovascular Exam: Present: regular rate, normal rhythm, normal heart sounds Extremities exam: Present: normal inspection, full ROM Back exam: Present: normal inspection, full ROM Neurological exam: Present: alert, oriented X3 Psychiatric exam: Present: normal affect, normal mood Skin exam: Present: warm, dry, intact, normal color Course Vital Signs 05/23/19 05/23/19 05/23/19 14:07 16:59 19:57 Temperature 100.7 F H 100.0 F H 99.0 F Pulse Rate 119 H 95 90 Respiratory 20 18 18 Rate Blood Pressure 130/74 127/73 O2 Sat by Pulse 95 98 98 Oximetry Medical Decision Making - Medical Decision Making Patient is a 48-year-old male with history of AML presenting to emergency Department with a chief complaint of a fever. Physical examination is remarkable for right-sided mild lower extremity edema compared to the other leg. Patient does have increased shortness of breath compared to his baseline over the last day. Patient is coughing as well. D-dimer obtained shows elevation of 1.05. CT of the chest is negative for a pulmonary embolism but does show increased interstitial infiltrates. Chest x-ray from earlier today is unremarkable. CBC shows slight leukopenia but otherwise unremarkable. Hemoglobin level is normal. Neutrophil levels within normal range. I'm not suspectin neutropenic fever. However, due to the increased interstitial infiltrates on CT of the chest I'm going to treat the patient with azithromycin to cover for atypical pneumonia. Strict return parameters were thoroughly discussed the patient was understanding and agreeable. Patient advised to follow up primary care. Case discussed with physician. - Lab Data Result diagrams: 05/23/19 15:30 05/23/19 15:30 Lab Results 05/23/19 05/23/19 05/23/19 Range/Units 15:30 15:30 15:30 WBC 3.6 L (3.8-10.6) k/uL RBC 4.71 (4.30-5.90) m/uL Hgb 14.4 (13.0-17.5) gm/dL Hct 41.3 (39.0-53.0) % MCV 87.7 (80.0-100.0) fL MCH 30.6 (25.0-35.0) pg MCHC 34.9 (31.0-37.0) g/dL RDW 15.3 (11.5-15.5) % Plt Count 41 L (150-450) k/uL Neutrophils % 61 % Lymphocytes % 27 % Monocytes % 8 % Eosinophils % 1 % Basophils % 0 % Neutrophils # 2.2 (1.3-7.7) k/uL Lymphocytes # 1.0 (1.0-4.8) k/uL Monocytes # 0.3 (0-1.0) k/uL Eosinophils # 0.1 (0-0.7) k/uL Basophils # 0.0 (0-0.2) k/uL Manual Slide Review Performed D-Dimer (<0.60) mg/L FEU Sodium 138 (137-145) mmol/L Potassium 4.1 (3.5-5.1) mmol/L Chloride 105 (98-107) mmol/L Carbon Dioxide 25 (22-30) mmol/L Anion Gap 8 mmol/L BUN 15 (9-20) mg/dL Creatinine 0.61 L (0.66-1.25) mg/dL Est GFR (CKD-EPI)AfAm >90 (>60 ml/min/1.73 sqM) Est GFR (CKD-EPI)NonAf >90 (>60 ml/min/1.73 sqM) Glucose 142 H (74-99) mg/dL Calcium 9.7 (8.4-10.2) mg/dL Total Bilirubin 0.7 (0.2-1.3) mg/dL AST 31 (17-59) U/L ALT 37 (4-49) U/L Alkaline Phosphatase 95 (38-126) U/L Total Protein 7.3 (6.3-8.2) g/dL Albumin 4.5 (3.5-5.0) g/dL Urine Color Yellow Urine Appearance Clear (Clear) Urine pH 5.0 (5.0-8.0) Ur Specific [place] 1.016 (1.001-1.035) Urine Protein Negative (Negative) Urine Glucose (UA) Negative (Negative) Urine Ketones Negative (Negative) Urine Blood Negative (Negative) Urine Nitrite Negative (Negative) Urine Bilirubin Negative (Negative) Urine Urobilinogen <2.0 (<2.0) mg/dL Ur Leukocyte Esterase Negative (Negative) Influenza Type A RNA (Not Detectd) Influenza Type B (PCR) (Not Detectd) 05/23/19 05/23/19 Range/Units 15:30 15:48 WBC (3.8-10.6) k/uL RBC (4.30-5.90) m/uL Hgb (13.0-17.5) gm/dL Hct (39.0-53.0) % MCV (80.0-100.0) fL MCH (25.0-35.0) pg MCHC (31.0-37.0) g/dL RDW (11.5-15.5) % Plt Count (150-450) k/uL Neutrophils % % Lymphocytes % % Monocytes % % Eosinophils % % Basophils % % Neutrophils # (1.3-7.7) k/uL Lymphocytes # (1.0-4.8) k/uL Monocytes # (0-1.0) k/uL Eosinophils # (0-0.7) k/uL Basophils # (0-0.2) k/uL Manual Slide Review D-Dimer 1.05 H (<0.60) mg/L FEU Sodium (137-145) mmol/L Potassium (3.5-5.1) mmol/L Chloride (98-107) mmol/L Carbon Dioxide (22-30) mmol/L Anion Gap mmol/L BUN (9-20) mg/dL Creatinine (0.66-1.25) mg/dL Est GFR (CKD-EPI)AfAm (>60 ml/min/1.73 sqM) Est GFR (CKD-EPI)NonAf (>60 ml/min/1.73 sqM) Glucose (74-99) mg/dL Calcium (8.4-10.2) mg/dL Total Bilirubin (0.2-1.3) mg/dL AST (17-59) U/L ALT (4-49) U/L Alkaline Phosphatase (38-126) U/L Total Protein (6.3-8.2) g/dL Albumin (3.5-5.0) g/dL Urine Color Urine Appearance (Clear) Urine pH (5.0-8.0) Ur Specific [place] (1.001-1.035) Urine Protein (Negative) Urine Glucose (UA) (Negative) Urine Ketones (Negative) Urine Blood (Negative) Urine Nitrite (Negative) Urine Bilirubin (Negative) Urine Urobilinogen (<2.0) mg/dL Ur Leukocyte Esterase (Negative) Influenza Type A RNA Not Detected (Not Detectd) Influenza Type B (PCR) Not Detected (Not Detectd) Disposition Clinical Impression: Fever Disposition: HOME SELF-CARE Condition: Stable Instructions (If sedation given, give patient instructions): Fever in Adults (ED) Additional Instructions: Please follow with primary care. Take Tylenol to relieve the fever. Please return to emergency department if symptoms worsen. Prescriptions: Azithromycin [Zithromax Z-pack] 0 mg PO DIRECTED #1 pack Is patient prescribed a controlled substance at d/c from ED?: No Referrals: Veronika Dotson MD [Primary Care Provider] - 1-2 days Time of Disposition: 20:12
[2019-05-23] MEDS ORDERED: ACETAMINOPHEN TAB 325 MG TAB PO STA (15:19)
[2019-05-23] MEDS ORDERED: SODIUM CHLORIDE 0.9% 1,000 ML IV STA (15:38)
[2019-05-23 15:48] LABS: Appearance,Urine Clear (Clear); Bilirubin,Urine Negative (Negative); Blood,Urine Negative (Negative); Color,Urine Yellow; Glucose,Urine (UA) Negative (Negative); Ketones,Urine Negative (Negative); Leukocyte Esterase,Urine Negative (Negative); Nitrite,Urine Negative (Negative); Protein,Urine Negative (Negative); Specific Gravity,Urine 1.016 (1.001-1.035); Urobilinogen,Urine <2.0 mg/dL (<2.0)
[2019-05-23 15:54] LABS: ALT 37 U/L (4-49); AST 31 U/L (17-59); African American GFR (CKD) >90 (>60 ml/min/1.73 sqM); Albumin 4.5 g/dL (3.5-5.0); Alkaline Phosphatase 95 U/L (38-126); Anion Gap 8 mmol/L; Blood Urea Nitrogen 15 mg/dL (9-20); Calcium 9.7 mg/dL (8.4-10.2); Carbon Dioxide 25 mmol/L (22-30); Chloride 105 mmol/L (98-107); Glucose 142 mg/dL (74-99); Non-African American GFR(CKD) >90 (>60 ml/min/1.73 sqM); Potassium 4.1 mmol/L (3.5-5.1); Sodium 138 mmol/L (137-145); Total Bilirubin 0.7 mg/dL (0.2-1.3); Total Protein 7.3 g/dL (6.3-8.2)
[2019-05-23 16:15] LABS: Basophils % (A) 0 %; Eosinophils # (A) 0.1 k/uL (0-0.7); Eosinophils % (A) 1 %; HCT 41.3 % (39.0-53.0); HGB 14.4 gm/dL (13.0-17.5); Lymphocytes % (A) 27 %; MCH 30.6 pg (25.0-35.0); MCHC 34.9 g/dL (31.0-37.0); MCV 87.7 fL (80.0-100.0); Mean Platelet Volume 15.6; Monocytes # (A) 0.3 k/uL (0-1.0); Monocytes % (A) 8 %; Neutrophils # (A) 2.2 k/uL (1.3-7.7); Neutrophils % (A) 61 %; RBC 4.71 m/uL (4.30-5.90); RDW 15.3 % (11.5-15.5); WBC 3.6 k/uL (3.8-10.6)
[2019-05-23 16:18] LABS: Platelet Count 41 k/uL (150-450)
[2019-05-23 17:00] VITALS: RESP 18
--- NOTE | 2019-05-23 17:40 | CT ---
EXAMINATION TYPE: CT chest angio for PE DATE OF EXAM: 05/23/2019 COMPARISON: 01/25/2019 HISTORY: Elevated d-dimer, leg swelling, fever. Hx AML /chemo treatments, cardiac history CT DLP: 494.5 mGycm Automated exposure control for dose reduction was used. CONTRAST: Performed with IV Contrast, patient injected with 100 mL of Isovue 370. There are 3-D post processed images. There is coarse interstitial density in the lungs. There is no mediastinal adenopathy. There are no h ilar masses. Heart size is normal. There is no evidence of a pulmonary mass. There is no pleural effu ke or pneumothorax. Thoracic aorta appears intact. There is no aneurysm or dissection. There is normal contrast opacification of the pulmonary arteries. I see no filling defect. There is i ntact bony thorax. IMPRESSION: No evidence of pulmonary embolism. Increased pulmonary interstitial infiltrates and subsegmental atel ectasis compared to last exam.
[2019-05-23 19:58] VITALS: BP 127/73; PULSE 90; TEMP 99
--- NOTE | 2019-05-23 20:01 | US ---
EXAMINATION TYPE: US venous doppler duplex LE RT DATE OF EXAM: 05/23/2019 7:52 PM COMPARISON: NONE CLINICAL HISTORY: swelling. SIDE PERFORMED: Right TECHNIQUE: The lower extremity deep venous system is examined utilizing real time linear array sonog lily with graded compression, doppler sonography and color-flow sonography. VESSELS IMAGED: External Iliac Vein (EIV) Common Femoral Vein Deep Femoral Vein Greater Saphenous Vein * Femoral Vein Popliteal Vein Small Saphenous Vein * Proximal Calf Veins (* superficial vessels) Right Leg: Negative for DVT IMPRESSION: No evidence of deep venous thrombosis in the right leg.
== END 2019-05-23 20:24 | disposition home or self-care (01) ==
LOC: EC 14:02
DX: R50.9 Fever, unspecified (principal); R60.0 Localized edema; R79.1 Abnormal coagulation profile; R91.8 Other nonspecific abnormal finding of lung field; D72.819 Decreased white blood cell count, unspecified; R06.02 Shortness of breath; R05 Cough; J45.909 Unspecified asthma, uncomplicated; E78.5 Hyperlipidemia, unspecified; I10 Essential (primary) hypertension; K21.9 Gastro-esophageal reflux disease without esophagitis; I25.2 Old myocardial infarction; G47.30 Sleep apnea, unspecified; G89.29 Other chronic pain; F31.9 Bipolar disorder, unspecified; F41.9 Anxiety disorder, unspecified; F17.200 Nicotine dependence, unspecified, uncomplicated; Z88.1 Allergy status to other antibiotic agents; Z88.6 Allergy status to analgesic agent; Z91.02 Food additives allergy status; Z91.018 Allergy to other foods; Z91.048 Other nonmedicinal substance allergy status; Z79.51 Long term (current) use of inhaled steroids; Z79.899 Other long term (current) drug therapy; Z85.6 Personal history of leukemia; Z92.21 Personal history of antineoplastic chemotherapy; Z99.89 Dependence on other enabling machines and devices; Z96.89 Presence of other specified functional implants; Z95.5 Presence of coronary angioplasty implant and graft; Z80.1 Family history of malignant neoplasm of trachea, bronchus and lung; Z82.5 Family history of asthma and other chronic lower respiratory diseases
CPT/HCPCS: 36415; 85379; 80053; 85025; 81003; 87040; 87502; 93971; 71275; 99284; 96360; 96361 ×4; Q9967

== ENCOUNTER 2019-06-03 08:42 | Inpatient (IN) | payer MEDICARE, OTHER ==
[2019-06-03] MEDS ORDERED: SODIUM CHLORIDE 0.9% 1,000 ML IV SCH (09:00)
[2019-06-03] MEDS ORDERED: VORICONAZOLE 50 MG PO SCH ×2 (10:00→12:30)
[2019-06-03] MEDS ORDERED: ONDANSETRON 16 MG in SODIUM CHLORIDE 0.9% 50 ML IVPB SCH (11:00)
[2019-06-03 11:04] LABS: MCHC 34.7 g/dL (31.0-37.0); MCV 89.2 fL (80.0-100.0); Mean Platelet Volume 14.9; Poikilocytosis Slight; RBC 3.13 m/uL (4.30-5.90); RDW 15.3 % (11.5-15.5); WBC 2.6 k/uL (3.8-10.6)
[2019-06-03 11:09] LABS: HGB 9.7 gm/dL (13.0-17.5)
[2019-06-03 11:10] LABS: Glucose,Whole Blood 262 mg/dL (75-99)
[2019-06-03 11:14] LABS: ALT 35 U/L (4-49); AST 25 U/L (17-59); African American GFR (CKD) >90 (>60 ml/min/1.73 sqM); Albumin 3.8 g/dL (3.5-5.0); Alkaline Phosphatase 81 U/L (38-126); Anion Gap 7 mmol/L; Blood Urea Nitrogen 11 mg/dL (9-20); Carbon Dioxide 27 mmol/L (22-30); Chloride 102 mmol/L (98-107); Glucose 273 mg/dL (74-99); Non-African American GFR(CKD) >90 (>60 ml/min/1.73 sqM); Phosphorus 2.7 mg/dL (2.5-4.5); Potassium 3.9 mmol/L (3.5-5.1); Sodium 136 mmol/L (137-145); Total Bilirubin 0.6 mg/dL (0.2-1.3); Total Protein 6.4 g/dL (6.3-8.2); Uric Acid 4.7 mg/dL (3.5-8.5)
[2019-06-03] MEDS ORDERED: ALBUTEROL NEBULIZED 2.5 MG/3 ML INHALATION PRN (11:39)
[2019-06-03] MEDS ORDERED: NITROGLYCERIN SL TABS 0.4 MG TAB SUBLINGUAL PRN (11:39)
--- NOTE | 2019-06-03 12:53 | P.CONS ---
History of Present Illness - Reason for Consult Consult date: 06/03/19 Medical management Requesting physician: Guille Rojas - Chief Complaint Inpatient chemo - History of Present Illness This is a 48-year-old male patient was then admitted under oncology services for inpatient chemotherapy patient has known past medical history of acute erythroid leukemia. Patient received induction therapy January 2019. Patient did have episodes of pancytopenia postchemotherapy requiring hospital admission. Additional medical history includes asthma, cancer, colitis, GERD, GI bleed, hyperlipidemia, hypertension, sleep apnea, neuropathy, diabetes mellitus type 2, bipolar anxiety and depression. Patient underwent bone marrow biopsy and 04/11/2019 showing findings consistent with acute erythroid leukemia. Patient has been admitted for inpatient chemotherapy. Patient denies any other complaints at this time Review of Systems Please refer HPI otherwise unremarkable Past Medical History Past Medical History: Asthma, Cancer, Chest Pain / Angina, Diabetes Mellitus, GERD/Reflux, GI Bleed, Hyperlipidemia, Hypertension, Myocardial Infarction (NC), Musculoskeletal Disorder, Osteoarthritis (OA), Sleep Apnea/CPAP/BIPAP Additional Past Medical History / Comment(s): Recent left lower abdominal pain/left urethral stone/pancytopenia. NIDDM type II, neuropathy bilateral hands/feet, colitis, hx lower GI bleed, CPAP use, chronic cervical/lumbar pain- has neurostimulator to both sites, bilateral carpal tunnel syndrome, occasional tinnitis, "soft" cardiac murmur. Last Myocardial Infarction Date:: 2004 History of Any Multi-Drug Resistant Organisms: None Reported Past Surgical History: Heart Catheterization With Stent, Hernia Repair, Joint Replacement Additional Past Surgical History / Comment(s): Bone marrow aspiration/biopsy, right knee arthroscopy X3, right total knee replacement with revision, left knee arthroscopy, cardiac stent X1, stent placed for kidney stone and then removed, COLONOSCOPY, cervical and lumbar neurostimulator implants, left inguinal hernia repair. Past Anesthesia/Blood Transfusion Reactions: No Reported Reaction Date of Last Stent Placement:: 2004 Past Psychological History: Anxiety, Bipolar, Depression Smoking Status: Current every day smoker Past Alcohol Use History: None Reported Past Drug Use History: None Reported - Past Family History Father Family Medical History: Congestive Heart Failure (CHF), Deep Vein Thrombosis (DVT), Myocardial Infarction (NC), Pulmonary Embolus Additional Family Medical History / Comment(s): NC at age 38. "hole in colon". Mother Family Medical History: Cancer, COPD, Diabetes Mellitus, Hyperlipidemia Additional Family Medical History / Comment(s): Mother had breast and lung cancer. She of lung cancer in her 60s. Sister(s) Family Medical History: Diabetes Mellitus, Liver Disease Additional Family Medical History / Comment(s): Bi-polar, anxiety, hysterectomy, fatty liver. Brother(s) History Unknown: Yes Medications and Allergies Home Medications Medication Instructions Recorded Confirmed Type Montelukast Sodium [Singulair] 10 mg PO HS 06/01/16 06/03/19 History Albuterol Inhaler [Ventolin Hfa 2 puff INHALATION RT-Q6H PRN 10/15/17 06/03/19 History Inhaler] Atorvastatin [Lipitor] 80 mg PO PC-SUPPER 10/15/17 06/03/19 History Beclomethasone Dipropionate [Qvar 2 puff INHALATION RT-BID 10/15/17 06/03/19 History 80 mcg] Fenofibrate Nanocrystallized 145 mg PO PC-SUPPER 10/15/17 06/03/19 History [Fenofibrate] Venlafaxine HCl [Effexor XR] 150 mg PO HS 10/15/17 06/03/19 History traZODone HCL 150 mg PO HS 10/15/17 06/03/19 History Dicyclomine [Bentyl] 20 mg PO TID 01/10/19 06/03/19 History Nitroglycerin Sl Tabs [Nitrostat] 0.4 mg SUBLINGUAL Q5M PRN 01/10/19 06/03/19 History Divalproex [Depakote] 500 mg PO BID tablet. 01/27/19 06/03/19 Rx metFORMIN HCL [Glucophage] 500 mg PO PC-SUPPER #0 02/19/19 06/03/19 Rx Fluconazole 200 mg PO DAILY #7 tab 03/18/19 06/03/19 Rx Acyclovir [Zovirax] 400 mg PO BID 04/02/19 06/03/19 History Metoprolol Tartrate [Lopressor] 25 mg PO HS 06/03/19 06/03/19 History Allergies Allergy/AdvReac Type Severity Reaction Status Date / Time naproxen [From Naprosyn] Allergy Unknown Rash/Hives Verified 06/03/19 09:42 adhesive tape Allergy Rash/Hives Verified 06/03/19 09:42 ibuprofen Allergy Itching Verified 06/03/19 09:42 mold Allergy Unknown Verified 06/03/19 09:42 vancomycin Allergy Rash/Hives Verified 06/03/19 09:42 carrot AdvReac Dyspnea Verified 06/03/19 09:42 chocolate flavor AdvReac Dyspnea Verified 06/03/19 09:42 grass pollen-perennial rye, AdvReac Dyspnea Verified 06/03/19 09:42 standar Physical Exam Vitals: Vital Signs Temp Pulse Resp BP Pulse Ox 06/03/19 11:40 98 F 91 17 127/69 98 Intake and Output 06/02/19 06/03/19 06/03/19 22:59 06:59 14:59 Other: Weight 95 kg Head normocephalic Neck supple Lungs clear to auscultation bilaterally no wheezing or crackles Heart regular rate and rhythm S1-S2, no rub or gallop Abdomen is soft nontender nondistended positive bowel sounds no hepatosplenomeg kailey Extremities no edema Neuro alert and orientated to 3 Results CBC & Chem 7: 06/03/19 10:00 06/03/19 10:00 Labs: Abnormal Lab Results - Last 24 Hours (Table) 06/03/19 06/03/19 06/03/19 Range/Units 10:00 10:00 11:09 WBC 2.6 L (3.8-10.6) k/uL RBC 3.13 L (4.30-5.90) m/uL Hgb 9.7 L D (13.0-17.5) gm/dL Hct 28.0 L (39.0-53.0) % Sodium 136 L (137-145) mmol/L Creatinine 0.64 L (0.66-1.25) mg/dL Glucose 273 H (74-99) mg/dL POC Glucose (mg/dL) 262 H (75-99) mg/dL Assessment and Plan Assessment: 1. Acute erythroid leukemia. Status post induction therapy in January 2019. Bone marrow biopsy on 04/11/2019 showing acute erythroid leukemia. Patient has been admitted for inpatient chemotherapy. 2. Pancytopenia secondary to acute erythroid leukemia 3. History of essential hypertension 4. History of depression 5. History of diabetes mellitus type 2. Homans resume sliding scale insulin ordered 6. History of coronary artery disease 7. History of obstructive sleep apnea maintained on CPAP 8. History of osteoarthritis 9. History of bipolar depression. Patient maintained on Depakote Thank you for this consultation we will continue to follow patient closely throughout stay Time with Patient: Greater than 30 (Greater than 60% of the total time spent in counseling and coordination of care. I performed an examination of the patient and discussed their management with the Nurse Practitioner. I have reviewed the Nurse Practitioner's notes and agree with the documented findings and plan of care)
[2019-06-03] MEDS: DICYCLOMINE 20 MG TAB PO SCH ×3 (13:11→20:40)
[2019-06-03] MEDS: DIVALPROEX 500 MG TABLET.DR PO SCH ×2 (13:12→20:40)
[2019-06-03 13:13] LABS: Lymphocytes # (M) 0.88 k/uL (1.0-4.8); Neutrophils # (M) 1.61 k/uL (1.3-7.7); Neutrophils % (M) 62 %; Nucleated Red Blood Cells 0 /100 WBC (0-0); Total Cells Counted 100
[2019-06-03] MEDS: ALLOPURINOL 300 MG TAB PO SCH ×2 (13:13→20:40)
[2019-06-03] MEDS: SODIUM CHLORIDE 0.9% 1,000 ML IV SCH ×2 (13:13→17:38)
[2019-06-03] MEDS: ACYCLOVIR 200 MG CAP PO SCH ×2 (13:13→20:40)
[2019-06-03 13:14] LABS: Large Platelets Present
[2019-06-03] MEDS: ONDANSETRON 16 MG in SODIUM CHLORIDE 0.9% 50 ML IVPB SCH (13:14)
[2019-06-03] MEDS: INSULIN ASPART (NovoLOG) 100 UNIT/ML VIAL SQ SCH ×3 (13:14→20:41)
[2019-06-03 13:16] LABS: Platelet Count 29 k/uL (150-450)
[2019-06-03] MEDS: SODIUM CHLORIDE 0.9% IV SCH (13:59)
[2019-06-03] MEDS: AZACITIDINE IV SCH (13:59)
--- NOTE | 2019-06-03 17:13 | P.HPIM ---
History of Present Illness H&P Date: 06/03/19 Chief Complaint: Admit for IV chemo for AEL He denied any chills/nausea/vomiting. He had a slight fever, with prominent chills leading to an ER visit on 05/23/19. CT and LE doppler were negative. He was dischaged on Azithromycin, with resolution of symptoms. He complains of persistent weakness and dizziness off and on. No obvious bleeding noted. No mouth sores or diarrhea. He has not had recurrence of this chest pain or abdominal pain symptoms. Appetite is fair. Review of systems otherwise as per HPI and negative out of 10. Mr. Burnham is a very pleasant 48-year-old male patient of Dr. Rojas recently diagnosed with acute erythroid leukemia. He was initially seen 02/13 for pncytopenia and abd pain. It was suspected to be r/t to maorrow suppressing medications so, these were adjusted. This did not help so, pt has BM BX and asp on 02/19/19 with IR. This showed marked increase in erythroid elements with pronormoblast greater than 50%, consistent with acute erythroid leukemia. He had induction with 7+3 regimen from 03/03-03/10/19. Post induction was complicated by an admission for febrile neutropenia. Tx f/u bone marrow showed 1-2 % blasts but persistence of about 90% erythroid elements, 70-80% of the early phase type. He was seen at [facility], felt to have failed induction, despite recovery of his counts to normal. Recommended treatment with Venetoclax/Vidaza preparatory to allo BMT. On admit pt has no acute c/o, did not report sore mouth, change of cognition, chest pain, shortness of breath, nausea, vomiting, diarrhea or constipation, lo ss of appetite, problems drinking or urinating. Did not report problems with ambulating, dizziness, or vertigo, pain or depression. Patient did report minor fatigue and problems sleeping. Review of Systems 14 point ROS is negative except as stated in HPI Constitutional: Reports fatigue Psychiatric: Reports sleep disturbances Endocrine: Reports fatigue Past Medical History Past Medical History: Asthma, Cancer, Chest Pain / Angina, Diabetes Mellitus, GERD/Reflux, GI Bleed, Hyperlipidemia, Hypertension, Myocardial Infarction (NC), Musculoskeletal Disorder, Osteoarthritis (OA), Sleep Apnea/CPAP/BIPAP Additional Past Medical History / Comment(s): Recent left lower abdominal pain/left urethral stone/pancytopenia. NIDDM type II, neuropathy bilateral hands/feet, colitis, hx lower GI bleed, CPAP use, chronic cervical/lumbar pain- has neurostimulator to both sites, bilateral carpal tunnel syndrome, occasional tinnitis, "soft" cardiac murmur. Last Myocardial Infarction Date:: 2004 History of Any Multi-Drug Resistant Organisms: None Reported Past Surgical History: Heart Catheterization With Stent, Hernia Repair, Joint Replacement Additional Past Surgical History / Comment(s): Bone marrow aspiration/biopsy, right knee arthroscopy X3, right total knee replacement with revision, left knee arthroscopy, cardiac stent X1, stent placed for kidney stone and then removed, COLONOSCOPY, cervical and lumbar neurostimulator implants, left inguinal hernia repair. Past Anesthesia/Blood Transfusion Reactions: No Reported Reaction Date of Last Stent Placement:: 2004 Past Psychological History: Anxiety, Bipolar, Depression Smoking Status: Current every day smoker Past Alcohol Use History: None Reported Past Drug Use History: None Reported - Past Family History Father Family Medical History: Congestive Heart Failure (CHF), Deep Vein Thrombosis (DVT), Myocardial Infarction (NC), Pulmonary Embolus Additional Family Medical History / Comment(s): NC at age 38. "hole in colon". Mother Family Medical History: Cancer, COPD, Diabetes Mellitus, Hyperlipidemia Additional Family Medical History / Comment(s): Mother had breast and lung cancer. She of lung cancer in her 60s. Sister(s) Family Medical History: Diabetes Mellitus, Liver Disease Additional Family Medical History / Comment(s): Bi-polar, anxiety, hysterectomy, fatty liver. Brother(s) History Unknown: Yes Medications and Allergies Home Medications Medication Instructions Recorded Confirmed Type Montelukast Sodium [Singulair] 10 mg PO HS 06/01/16 06/03/19 History Albuterol Inhaler [Ventolin Hfa 2 puff INHALATION RT-Q6H PRN 10/15/17 06/03/19 History Inhaler] Atorvastatin [Lipitor] 80 mg PO PC-SUPPER 10/15/17 06/03/19 History Beclomethasone Dipropionate [Qvar 2 puff INHALATION RT-BID 10/15/17 06/03/19 History 80 mcg] Fenofibrate Nanocrystallized 145 mg PO PC-SUPPER 10/15/17 06/03/19 History [Fenofibrate] Venlafaxine HCl [Effexor XR] 150 mg PO HS 10/15/17 06/03/19 History traZODone HCL 150 mg PO HS 10/15/17 06/03/19 History Dicyclomine [Bentyl] 20 mg PO TID 01/10/19 06/03/19 History Nitroglycerin Sl Tabs [Nitrostat] 0.4 mg SUBLINGUAL Q5M PRN 01/10/19 06/03/19 History Divalproex [Depakote] 500 mg PO BID tablet. 01/27/19 06/03/19 Rx metFORMIN HCL [Glucophage] 500 mg PO PC-SUPPER #0 02/19/19 06/03/19 Rx Fluconazole 200 mg PO DAILY #7 tab 03/18/19 06/03/19 Rx Acyclovir [Zovirax] 400 mg PO BID 04/02/19 06/03/19 History Metoprolol Tartrate [Lopressor] 25 mg PO HS 06/03/19 06/03/19 History Allergies Allergy/AdvReac Type Severity Reaction Status Date / Time naproxen [From Naprosyn] Allergy Unknown Rash/Hives Verified 06/03/19 09:42 adhesive tape Allergy Rash/Hives Verified 06/03/19 09:42 ibuprofen Allergy Itching Verified 06/03/19 09:42 mold Allergy Unknown Verified 06/03/19 09:42 vancomycin Allergy Rash/Hives Verified 06/03/19 09:42 carrot AdvReac Dyspnea Verified 06/03/19 09:42 chocolate flavor AdvReac Dyspnea Verified 06/03/19 09:42 grass pollen-perennial rye, AdvReac Dyspnea Verified 06/03/19 09:42 standar Physical Exam Vitals: Intake and Output 06/02/19 06/03/19 06/03/19 22:59 06:59 14:59 Other: Weight 95 kg - Constitutional General appearance: cooperative - EENT Eyes: anicteric sclerae, EOMI, dentition normal, normal appearance ENT: hearing grossly normal, normal oropharynx Ears: bilateral: normal - Neck Neck: lymphadenopathy, normal ROM Thyroid: bilateral: normal size - Respiratory Respiratory: bilateral: CTA - Cardiovascular Rhythm: regular Heart sounds: normal: S1, S2 - Gastrointestinal General gastrointestinal: no absent bowel sounds, no decreased bowel sounds, no distended, no hepatomegaly, no hyperactive bowel sounds, normal bowel sounds, no organomegaly, no rigid, no scaphoid, soft, no splenomegaly, no tenderness, no umbilical hernia, no ventral hernia - Integumentary Integumentary: normal, normal turgor - Neurologic Neurologic: CNII-XII intact - Musculoskeletal Musculoskeletal: strength equal bilaterally - Psychiatric Psychiatric: A&O x's 3, appropriate affect, intact judgment & insight Results CBC & Chem 7: 06/03/19 10:00 06/03/19 10:00 Thrombosis Risk Factor Assmnt - DVT/VTE Prophylaxis DVT/VTE Prophylaxis: Pharmacologic Prophylaxis ordered Assessment and Plan (1) Acute erythroid leukemia Narrative/Plan: Admit for PO and IV chemo Labs daily Supportive medications Meds reconciled, venetoclax dose adjusted for 06/03-06/05 to 200mg daily then increase to 400mg daily Stop lipitor and trazadone due to interaction with venetoclax daily f/u GI/DVT prophylaxis Encourage ambulation Diet as tolerated Current Visit: Yes Status: Acute Priority: High Code(s): C94.00 - ACUTE ERYTHROID LEUKEMIA, NOT HAVING ACHIEVED REMISSION SNOMED Code(s): 71775886 (2) Diabetes mellitus type 2, uncontrolled, with complications Current Visit: No Status: Chronic Priority: Medium Code(s): E11.8 - TYPE 2 DIABETES MELLITUS WITH UNSPECIFIED COMPLICATIONS; E11.65 - TYPE 2 DIABETES MELLITUS WITH HYPERGLYCEMIA SNOMED Code(s): 39806900 (3) Hypertension Current Visit: No Status: Chronic Priority: Medium Code(s): I10 - ESSENTIAL (PRIMARY) HYPERTENSION SNOMED Code(s): 32828786 (4) Seizure Current Visit: No Status: Chronic Priority: Medium Code(s): R56.9 - UNSPECIFIED CONVULSIONS SNOMED Code(s): 77043021 Plan: Internal Medicine consulted for medical management Time with Patient: Greater than 30
[2019-06-03] MEDS ORDERED: ZOLPIDEM 5 MG TAB PO PRN (17:16)
[2019-06-03 17:20] LABS: Glucose,Whole Blood 104 mg/dL (75-99)
[2019-06-03] MEDS: metFORMIN 500 MG TAB PO SCH (17:38)
[2019-06-03] MEDS: FENOFIBRATE 160 MG TAB PO SCH (17:38)
[2019-06-03] MEDS: VENCLEXTA 100 MG PO SCH (17:39)
[2019-06-03 19:13] LABS: ALT 35 U/L (4-49); AST 26 U/L (17-59); African American GFR (CKD) >90 (>60 ml/min/1.73 sqM); Albumin 3.8 g/dL (3.5-5.0); Alkaline Phosphatase 82 U/L (38-126); Anion Gap 7 mmol/L; Blood Urea Nitrogen 9 mg/dL (9-20); Calcium 8.9 mg/dL (8.4-10.2); Carbon Dioxide 28 mmol/L (22-30); Chloride 104 mmol/L (98-107); Glucose 168 mg/dL (74-99); Magnesium 2.1 mg/dL (1.6-2.3); Non-African American GFR(CKD) >90 (>60 ml/min/1.73 sqM); Phosphorus 4.2 mg/dL (2.5-4.5); Potassium 4.2 mmol/L (3.5-5.1); Sodium 139 mmol/L (137-145); Total Bilirubin 0.6 mg/dL (0.2-1.3); Total Protein 6.4 g/dL (6.3-8.2); Uric Acid 3.9 mg/dL (3.5-8.5)
[2019-06-03 19:19] LABS: Basophils % (A) 2 %; Eosinophils # (A) 0.1 k/uL (0-0.7); Eosinophils % (A) 2 %; HCT 31.4 % (39.0-53.0); Lymphocytes # (A) 0.8 k/uL (1.0-4.8); Lymphocytes % (A) 43 %; MCH 30.9 pg (25.0-35.0); MCV 88.2 fL (80.0-100.0); Mean Platelet Volume 16.4; Monocytes # (A) 0.2 k/uL (0-1.0); Monocytes % (A) 9 %; Neutrophils # (A) 0.8 k/uL (1.3-7.7); Neutrophils % (A) 42 %; Poikilocytosis Slight; RBC 3.56 m/uL (4.30-5.90); RDW 15.1 % (11.5-15.5); WBC 1.9 k/uL (3.8-10.6)
[2019-06-03 19:40] LABS: Glucose,Whole Blood 185 mg/dL (75-99)
[2019-06-03 20:09] LABS: Platelet Count 29 k/uL (150-450)
[2019-06-03] MEDS: METOPROLOL TARTRATE 25 MG TAB PO SCH (20:40)
[2019-06-03] MEDS: VENLAFAXINE HCL ER 150 MG CAP PO SCH (20:40)
[2019-06-03] MEDS: SALT AND SODA MOUTHWASH 1,000 ML PO SCH ×2 (20:40→23:50)
[2019-06-03] MEDS: MONTELUKAST 10 MG TAB PO SCH (20:40)
[2019-06-03 23:44] LABS: ALT 43 U/L (4-49); AST 27 U/L (17-59); African American GFR (CKD) >90 (>60 ml/min/1.73 sqM); Albumin 4.2 g/dL (3.5-5.0); Alkaline Phosphatase 86 U/L (38-126); Anion Gap 8 mmol/L; Blood Urea Nitrogen 11 mg/dL (9-20); Calcium 9.4 mg/dL (8.4-10.2); Carbon Dioxide 27 mmol/L (22-30); Chloride 106 mmol/L (98-107); Glucose 104 mg/dL (74-99); Magnesium 2.2 mg/dL (1.6-2.3); Non-African American GFR(CKD) >90 (>60 ml/min/1.73 sqM); Phosphorus 4.3 mg/dL (2.5-4.5); Potassium 4.3 mmol/L (3.5-5.1); Sodium 141 mmol/L (137-145); Total Bilirubin 0.7 mg/dL (0.2-1.3); Total Protein 6.9 g/dL (6.3-8.2); Uric Acid 3.3 mg/dL (3.5-8.5)
[2019-06-03 23:58] LABS: HGB 12.1 gm/dL (13.0-17.5); MCH 30.8 pg (25.0-35.0); MCHC 34.5 g/dL (31.0-37.0); MCV 89.2 fL (80.0-100.0); Mean Platelet Volume 16.7; Poikilocytosis Slight; RBC 3.93 m/uL (4.30-5.90); RDW 15.2 % (11.5-15.5); WBC 2.8 k/uL (3.8-10.6)
[2019-06-04 00:39] LABS: Platelet Count 33 k/uL (150-450)
[2019-06-04] MEDS: SODIUM CHLORIDE 0.9% 1,000 ML IV SCH ×3 (01:27→17:31)
[2019-06-04 03:21] LABS: ALT 36 U/L (4-49); AST 25 U/L (17-59); African American GFR (CKD) >90 (>60 ml/min/1.73 sqM); Albumin 3.8 g/dL (3.5-5.0); Alkaline Phosphatase 80 U/L (38-126); Anion Gap 7 mmol/L; Blood Urea Nitrogen 11 mg/dL (9-20); Calcium 8.8 mg/dL (8.4-10.2); Carbon Dioxide 24 mmol/L (22-30); Chloride 107 mmol/L (98-107); Glucose 128 mg/dL (74-99); Magnesium 2.1 mg/dL (1.6-2.3); Non-African American GFR(CKD) >90 (>60 ml/min/1.73 sqM); Phosphorus 4.2 mg/dL (2.5-4.5); Potassium 4.5 mmol/L (3.5-5.1); Sodium 138 mmol/L (137-145); Total Bilirubin 0.6 mg/dL (0.2-1.3); Total Protein 6.4 g/dL (6.3-8.2); Uric Acid 2.8 mg/dL (3.5-8.5)
[2019-06-04 03:27] LABS: HCT 33.2 % (39.0-53.0); HGB 11.3 gm/dL (13.0-17.5); MCH 30.2 pg (25.0-35.0); MCV 88.9 fL (80.0-100.0); Mean Platelet Volume 8.4; Poikilocytosis Slight; RBC 3.74 m/uL (4.30-5.90); RDW 15.1 % (11.5-15.5); WBC 2.1 k/uL (3.8-10.6)
[2019-06-04 04:29] LABS: Anisocytosis (M) Present; Band Neutrophils % 8 %; Basophils # (M) 0.03 k/uL (0-0.2); Eosinophils # (M) 0.08 k/uL (0-0.7); Large Platelets Present; Lymphocytes # (M) 1.26 k/uL (1.0-4.8); Metamyelocytes # (M) 0.03 k/uL (0); Metamyelocytes % 1 %; Monocytes # (M) 0.11 k/uL (0-1.0); Neutrophils % (M) 41 %; Nucleated Red Blood Cells 0 /100 WBC (0-0); Total Cells Counted 200
[2019-06-04 04:30] LABS: Polychromasia Present
[2019-06-04] MEDS: SALT AND SODA MOUTHWASH 1,000 ML PO SCH ×5 (06:03→23:29)
[2019-06-04 07:08] LABS: Band Neutrophils % 4 %; Eosinophils # (M) 0.08 k/uL (0-0.7); Lymphocytes # (M) 1.03 k/uL (1.0-4.8); Monocytes # (M) 0.08 k/uL (0-1.0); Neutrophils % (M) 40 %; Nucleated Red Blood Cells 1 /100 WBC (0-0); Total Cells Counted 200
[2019-06-04 07:09] LABS: Anisocytosis (M) Present
[2019-06-04 07:10] LABS: Glucose,Whole Blood 123 mg/dL (75-99)
[2019-06-04 07:10] LABS: Large Platelets Present; Polychromasia Present
[2019-06-04 07:29] LABS: HCT 32.4 % (39.0-53.0); HGB 10.9 gm/dL (13.0-17.5); MCH 29.8 pg (25.0-35.0); MCHC 33.7 g/dL (31.0-37.0); MCV 88.5 fL (80.0-100.0); Poikilocytosis Slight; RBC 3.67 m/uL (4.30-5.90); WBC 1.9 k/uL (3.8-10.6)
[2019-06-04] MEDS: INSULIN ASPART (NovoLOG) 100 UNIT/ML VIAL SQ SCH ×4 (07:43→20:40)
[2019-06-04] MEDS: DICYCLOMINE 20 MG TAB PO SCH ×3 (07:46→23:29)
[2019-06-04] MEDS: ACYCLOVIR 200 MG CAP PO SCH ×2 (07:47→20:39)
[2019-06-04] MEDS: ALLOPURINOL 300 MG TAB PO SCH ×2 (07:47→20:40)
[2019-06-04] MEDS: DIVALPROEX 500 MG TABLET.DR PO SCH ×2 (07:47→20:40)
[2019-06-04 07:52] LABS: ALT 36 U/L (4-49); AST 23 U/L (17-59); African American GFR (CKD) >90 (>60 ml/min/1.73 sqM); Albumin 3.6 g/dL (3.5-5.0); Alkaline Phosphatase 84 U/L (38-126); Anion Gap 8 mmol/L; Blood Urea Nitrogen 10 mg/dL (9-20); Calcium 8.8 mg/dL (8.4-10.2); Carbon Dioxide 26 mmol/L (22-30); Chloride 106 mmol/L (98-107); Glucose 117 mg/dL (74-99); Non-African American GFR(CKD) >90 (>60 ml/min/1.73 sqM); Phosphorus 3.9 mg/dL (2.5-4.5); Potassium 4.3 mmol/L (3.5-5.1); Sodium 140 mmol/L (137-145); Total Bilirubin 0.6 mg/dL (0.2-1.3); Total Protein 6.3 g/dL (6.3-8.2); Uric Acid 2.7 mg/dL (3.5-8.5)
--- NOTE | 2019-06-04 08:54 | P.PN ---
Subjective Progress Note Date: 06/04/19 The patient is tolerating his regimen subjectively well so far. No history of any fevers/chills/nausea/vomiting. Denies any shortness of breath or significant leg swelling. He has had some mild diarrhea, 1-2 episodes since his admission. This responded well to Imodium. Appetite is maintained. Objective - Vital Signs Vital signs: Vital Signs Temp 97.9 F 06/04/19 08:00 Pulse 83 06/04/19 08:00 Resp 16 06/04/19 08:00 BP 133/74 06/04/19 08:00 Pulse Ox 97 06/04/19 08:00 Intake & Output 06/03/19 06/04/19 06/04/19 18:59 06:59 18:59 Intake Total 3100 2300 Balance 3100 2300 Weight 95 kg Intake: Intake, IV Titration 700 500 Amount Ondansetron 16 mg In 50 Sodium Chloride 0.9% 50 ml @ 232 mls/hr IVPB Q24H TABITHA Rx#:[id number] Sodium Chloride 0.9% 1, 650 500 000 ml @ 125 mls/hr IV . Q8H TABITHA Rx#:[id number] Oral 2400 1800 Other: Voiding Method Toilet Toilet Toilet # Voids 2 - Constitutional General appearance: Present: no acute distress - EENT Eyes: Present: EOMI ENT: Present: hearing grossly normal, normal oropharynx - Respiratory Respiratory: bilateral: CTA - Cardiovascular Rhythm: regular Heart sounds: normal: S1, S2 - Gastrointestinal General gastrointestinal: Present: normal bowel sounds, soft - Integumentary Integumentary: Present: normal - Neurologic Neurologic: Present: CNII-XII intact - Musculoskeletal Musculoskeletal: Present: strength equal bilaterally - Psychiatric Psychiatric: Present: A&O x's 3, appropriate affect - Labs CBC & Chem 7: 06/04/19 02:45 06/04/19 06:46 Labs: Abnormal Lab Results - Last 24 Hours (Table) 06/03/19 06/03/19 06/03/19 Range/Units 10:00 10:00 11:09 WBC 2.6 L (3.8-10.6) k/uL RBC 3.13 L (4.30-5.90) m/uL Hgb 9.7 L D (13.0-17.5) gm/dL Hct 28.0 L (39.0-53.0) % Plt Count 29 L (150-450) k/uL Neutrophils # (1.3-7.7) k/uL Lymphocytes # (1.0-4.8) k/uL Lymphocytes # (Manual) 0.88 L (1.0-4.8) k/uL Metamyelocytes # (Man) (0) k/uL Sodium 136 L (137-145) mmol/L Creatinine 0.64 L (0.66-1.25) mg/dL Glucose 273 H (74-99) mg/dL POC Glucose (mg/dL) 262 H (75-99) mg/dL Uric Acid (3.5-8.5) mg/dL 06/03/19 06/03/19 06/03/19 Range/Units 17:19 18:38 18:38 WBC 1.9 L (3.8-10.6) k/uL RBC 3.56 L (4.30-5.90) m/uL Hgb 11.0 L (13.0-17.5) gm/dL Hct 31.4 L (39.0-53.0) % Plt Count 29 L (150-450) k/uL Neutrophils # 0.8 L (1.3-7.7) k/uL Lymphocytes # 0.8 L (1.0-4.8) k/uL Lymphocytes # (Manual) (1.0-4.8) k/uL Metamyelocytes # (Man) (0) k/uL Sodium (137-145) mmol/L Creatinine (0.66-1.25) mg/dL Glucose 168 H (74-99) mg/dL POC Glucose (mg/dL) 104 H (75-99) mg/dL Uric Acid (3.5-8.5) mg/dL 06/03/19 06/03/19 06/03/19 Range/Units 19:39 22:46 22:46 WBC 2.8 L (3.8-10.6) k/uL RBC 3.93 L (4.30-5.90) m/uL Hgb 12.1 L (13.0-17.5) gm/dL Hct 35.0 L (39.0-53.0) % Plt Count 33 L (150-450) k/uL Neutrophils # (1.3-7.7) k/uL Lymphocytes # (1.0-4.8) k/uL Lymphocytes # (Manual) (1.0-4.8) k/uL Metamyelocytes # (Man) 0.03 H (0) k/uL Sodium (137-145) mmol/L Creatinine (0.66-1.25) mg/dL Glucose 104 H (74-99) mg/dL POC Glucose (mg/dL) 185 H (75-99) mg/dL Uric Acid 3.3 L (3.5-8.5) mg/dL 06/04/19 06/04/19 06/04/19 Range/Units 02:45 02:45 06:46 WBC 2.1 L (3.8-10.6) k/uL RBC 3.74 L (4.30-5.90) m/uL Hgb 11.3 L (13.0-17.5) gm/dL Hct 33.2 L (39.0-53.0) % Plt Count (150-450) k/uL Neutrophils # (1.3-7.7) k/uL Lymphocytes # (1.0-4.8) k/uL Lymphocytes # (Manual) (1.0-4.8) k/uL Metamyelocytes # (Man) (0) k/uL Sodium (137-145) mmol/L Creatinine (0.66-1.25) mg/dL Glucose 128 H 117 H (74-99) mg/dL POC Glucose (mg/dL) (75-99) mg/dL Uric Acid 2.8 L 2.7 L (3.5-8.5) mg/dL 06/04/19 Range/Units 07:08 WBC (3.8-10.6) k/uL RBC (4.30-5.90) m/uL Hgb (13.0-17.5) gm/dL Hct (39.0-53.0) % Plt Count (150-450) k/uL Neutrophils # (1.3-7.7) k/uL Lymphocytes # (1.0-4.8) k/uL Lymphocytes # (Manual) (1.0-4.8) k/uL Metamyelocytes # (Man) (0) k/uL Sodium (137-145) mmol/L Creatinine (0.66-1.25) mg/dL Glucose (74-99) mg/dL POC Glucose (mg/dL) 123 H (75-99) mg/dL Uric Acid (3.5-8.5) mg/dL Assessment and Plan (1) Acute erythroid leukemia Narrative/Plan: The patient is currently on salvage treatment with Venetoclax and Vidaza, for his acute leukemia, which did not respond to the standard 7+3 induction regimen. And has been admitted for IV hydration and monitoring for tumor lysis syndrome, per the recommended protocol for cycle #1, especially given his significant glory en of residual disease. He is tolerating treatment well subjectively. Labs not show any evidence of tumor lysis. Continue monitoring with physical exams, and lap which have been ordered. Continue IV hydration. Initial dose of Venetoclax has been adjusted to account for potential interaction with trazodone and Lipitor which the patient was taking as an outpatient. His medications have been discontinued.The Venetoclax dose will be adjusted upward to the standard amount after about 3 days. Current Visit: Yes Status: Acute Priority: High Code(s): C94.00 - ACUTE ERYTHROID LEUKEMIA, NOT HAVING ACHIEVED REMISSION SNOMED Code(s): 59677325 (2) Pancytopenia Narrative/Plan: Due to underlying acute leukemia. Counts continue to be in a safe range. Continue to monitor with supportive treatment as needed Current Visit: No Status: Acute Priority: High Code(s): D61.818 - OTHER PANCYTOPENIA SNOMED Code(s): 367543823 Plan: Internal medicine service is following for management of his other medical problems. He is stable overall in that regard..
[2019-06-04 09:58] LABS: Band Neutrophils % 1 %; Eosinophils # (M) 0.08 k/uL (0-0.7); Lymphocytes # (M) 0.42 k/uL (1.0-4.8); Monocytes # (M) 0.23 k/uL (0-1.0); Neutrophils % (M) 61 %; Nucleated Red Blood Cells 0 /100 WBC (0-0); Total Cells Counted 100
[2019-06-04 10:00] LABS: Platelet Count 17 k/uL (150-450)
[2019-06-04 11:19] LABS: Glucose,Whole Blood 170 mg/dL (75-99)
[2019-06-04] MEDS: VORICONAZOLE 50 MG PO SCH (11:43)
[2019-06-04 12:15] LABS: Platelet Count 23 k/uL (150-450)
--- NOTE | 2019-06-04 12:37 | P.PN ---
Subjective Progress Note Date: 06/04/19 This is a 48-year-old male patient was then admitted under oncology services for inpatient chemotherapy patient has known past medical history of acute erythroid leukemia. Patient received induction therapy January 2019. Patient did have episodes of pancytopenia postchemotherapy requiring hospital admission. Additional medical history includes asthma, cancer, colitis, GERD, GI bleed, hyperlipidemia, hypertension, sleep apnea, neuropathy, diabetes mellitus type 2, bipolar anxiety and depression. Patient underwent bone marrow biopsy and 04/11/2019 showing findings consistent with acute erythroid leukemia. Patient has been admitted for inpatient chemotherapy. Patient denies any other complain ts at this time On 06/04/2019 patient is alert and oriented 3. Patient had first round of chemotherapy. Patient denies any chest pain or shortness breath. Patient denies nausea or vomiting. Patient did have 2 episodes of diarrhea in which he was given Imodium. Patient denies any burning with urination. Patient denies any sores to mouth or body. Patient has been afebrile. Continue to monitor closely Objective - Vital Signs Vital signs: Vital Signs Temp 97.9 F 06/04/19 11:54 Pulse 66 06/04/19 11:54 Resp 18 06/04/19 11:54 BP 128/75 06/04/19 11:54 Pulse Ox 97 06/04/19 11:54 Intake & Output 06/03/19 06/04/19 06/04/19 18:59 06:59 18:59 Intake Total 3100 2300 Balance 3100 2300 Weight 95 kg Intake: Intake, IV Titration 700 500 Amount Ondansetron 16 mg In 50 Sodium Chloride 0.9% 50 ml @ 232 mls/hr IVPB Q24H [facility] Rx#:[id number] Sodium Chloride 0.9% 1, 650 500 000 ml @ 125 mls/hr IV . Q8H [facility] Rx#:[id number] Oral 2400 1800 Other: Voiding Method Toilet Toilet Toilet # Voids 2 - Exam Head normocephalic Neck supple Lungs clear to auscultation bilaterally no wheezing or crackles Heart regular rate and rhythm S1-S2, no rub or gallop Abdomen is soft nontender nondistended positive bowel sounds no hepatosplenomegaly Extremities no edema Neuro alert and orientated to 3 - Labs CBC & Chem 7: 06/04/19 06:46 06/04/19 06:46 Labs: Abnormal Lab Results - Last 24 Hours (Table) 06/03/19 06/03/19 06/03/19 Range/Units 10:00 17:19 18:38 WBC 1.9 L (3.8-10.6) k/uL RBC 3.56 L (4.30-5.90) m/uL Hgb 11.0 L (13.0-17.5) gm/dL Hct 31.4 L (39.0-53.0) % Plt Count 29 L 29 L (150-450) k/uL Neutrophils # 0.8 L (1.3-7.7) k/uL Neutrophils # (Manual) (1.3-7.7) k/uL Lymphocytes # 0.8 L (1.0-4.8) k/uL Lymphocytes # (Manual) 0.88 L (1.0-4.8) k/uL Metamyelocytes # (Man) (0) k/uL Nucleated RBCs (0-0) /100 WBC Glucose (74-99) mg/dL POC Glucose (mg/dL) 104 H (75-99) mg/dL Uric Acid (3.5-8.5) mg/dL 06/03/19 06/03/19 06/03/19 Range/Units 18:38 19:39 22:46 WBC 2.8 L (3.8-10.6) k/uL RBC 3.93 L (4.30-5.90) m/uL Hgb 12.1 L (13.0-17.5) gm/dL Hct 35.0 L (39.0-53.0) % Plt Count 33 L (150-450) k/uL Neutrophils # (1.3-7.7) k/uL Neutrophils # (Manual) (1.3-7.7) k/uL Lymphocytes # (1.0-4.8) k/uL Lymphocytes # (Manual) (1.0-4.8) k/uL Metamyelocytes # (Man) 0.03 H (0) k/uL Nucleated RBCs (0-0) /100 WBC Glucose 168 H (74-99) mg/dL POC Glucose (mg/dL) 185 H (75-99) mg/dL Uric Acid (3.5-8.5) mg/dL 06/03/19 06/04/19 06/04/19 Range/Units 22:46 02:45 02:45 WBC 2.1 L (3.8-10.6) k/uL RBC 3.74 L (4.30-5.90) m/uL Hgb 11.3 L (13.0-17.5) gm/dL Hct 33.2 L (39.0-53.0) % Plt Count 23 L (150-450) k/uL Neutrophils # (1.3-7.7) k/uL Neutrophils # (Manual) 0.90 L (1.3-7.7) k/uL Lymphocytes # (1.0-4.8) k/uL Lymphocytes # (Manual) (1.0-4.8) k/uL Metamyelocytes # (Man) (0) k/uL Nucleated RBCs 1 H (0-0) /100 WBC Glucose 104 H 128 H (74-99) mg/dL POC Glucose (mg/dL) (75-99) mg/dL Uric Acid 3.3 L 2.8 L (3.5-8.5) mg/dL 06/04/19 06/04/19 06/04/19 Range/Units 06:46 06:46 07:08 WBC 1.9 L (3.8-10.6) k/uL RBC 3.67 L (4.30-5.90) m/uL Hgb 10.9 L (13.0-17.5) gm/dL Hct 32.4 L (39.0-53.0) % Plt Count 17 L* (150-450) k/uL Neutrophils # (1.3-7.7) k/uL Neutrophils # (Manual) 1.10 L (1.3-7.7) k/uL Lymphocytes # (1.0-4.8) k/uL Lymphocytes # (Manual) 0.42 L (1.0-4.8) k/uL Metamyelocytes # (Man) (0) k/uL Nucleated RBCs (0-0) /100 WBC Glucose 117 H (74-99) mg/dL POC Glucose (mg/dL) 123 H (75-99) mg/dL Uric Acid 2.7 L (3.5-8.5) mg/dL 01/08/20 Range/Units 11:18 WBC (3.8-10.6) k/uL RBC (4.30-5.90) m/uL Hgb (13.0-17.5) gm/dL Hct (39.0-53.0) % Plt Count (150-450) k/uL Neutrophils # (1.3-7.7) k/uL Neutrophils # (Manual) (1.3-7.7) k/uL Lymphocytes # (1.0-4.8) k/uL Lymphocytes # (Manual) (1.0-4.8) k/uL Metamyelocytes # (Man) (0) k/uL Nucleated RBCs (0-0) /100 WBC Glucose (74-99) mg/dL POC Glucose (mg/dL) 170 H (75-99) mg/dL Uric Acid (3.5-8.5) mg/dL Assessment and Plan Assessment: 1. Acute erythroid leukemia. Currently on salvage treatment with Venetoclax and Vidaza. Status post induction therapy in January 2019 with no response. Bone marrow biopsy on 04/11/2019 showing acute erythroid leukemia. Patient has been admitted for inpatient chemotherapy. Status post cycle 1 2. Pancytopenia secondary to acute erythroid leukemia 3. History of essential hypertension 4. History of depression 5. History of diabetes mellitus type 2. Homans resume sliding scale insulin or dered 6. History of coronary artery disease 7. History of obstructive sleep apnea maintained on CPAP 8. History of osteoarthritis 9. History of bipolar depression. Patient maintained on Depakote 10. Mild diarrhea. Patient was given Imodium symptoms resolve we'll continue to monitor Thank you for this consultation we will continue to follow patient closely throughout stay I performed an examination of the patient and discussed their management with the Nurse Practitioner. I have reviewed the Nurse Practitioner's notes and agree with the documented findings and plan of care
[2019-06-04] MEDS: ONDANSETRON 16 MG in SODIUM CHLORIDE 0.9% 50 ML IVPB SCH (13:43)
[2019-06-04] MEDS: AZACITIDINE IV SCH (14:49)
[2019-06-04] MEDS: SODIUM CHLORIDE 0.9% IV SCH (14:49)
[2019-06-04 15:12] LABS: Basophils % (A) 2 %; Eosinophils # (A) 0.1 k/uL (0-0.7); Eosinophils % (A) 3 %; HCT 35.5 % (39.0-53.0); HGB 12.2 gm/dL (13.0-17.5); Lymphocytes # (A) 0.7 k/uL (1.0-4.8); Lymphocytes % (A) 36 %; MCH 30.3 pg (25.0-35.0); MCHC 34.4 g/dL (31.0-37.0); MCV 88.2 fL (80.0-100.0); Mean Platelet Volume 14.5; Monocytes # (A) 0.1 k/uL (0-1.0); Monocytes % (A) 6 %; Neutrophils % (A) 51 %; Poikilocytosis Slight; RBC 4.02 m/uL (4.30-5.90); RDW 15.2 % (11.5-15.5)
[2019-06-04 15:20] LABS: ALT 40 U/L (4-49); AST 26 U/L (17-59); African American GFR (CKD) >90 (>60 ml/min/1.73 sqM); Alkaline Phosphatase 85 U/L (38-126); Anion Gap 7 mmol/L; Blood Urea Nitrogen 12 mg/dL (9-20); Calcium 9.3 mg/dL (8.4-10.2); Carbon Dioxide 27 mmol/L (22-30); Chloride 106 mmol/L (98-107); Glucose 124 mg/dL (74-99); Magnesium 2.2 mg/dL (1.6-2.3); Non-African American GFR(CKD) >90 (>60 ml/min/1.73 sqM); Phosphorus 4.1 mg/dL (2.5-4.5); Potassium 4.4 mmol/L (3.5-5.1); Sodium 140 mmol/L (137-145); Total Bilirubin 0.6 mg/dL (0.2-1.3); Total Protein 6.8 g/dL (6.3-8.2); Uric Acid 2.1 mg/dL (3.5-8.5)
[2019-06-04 17:10] LABS: Glucose,Whole Blood 95 mg/dL (75-99)
[2019-06-04] MEDS: VENCLEXTA 100 MG PO SCH (17:32)
[2019-06-04] MEDS: FENOFIBRATE 160 MG TAB PO SCH (17:32)
[2019-06-04] MEDS: metFORMIN 500 MG TAB PO SCH (17:36)
[2019-06-04 19:59] LABS: Glucose,Whole Blood 157 mg/dL (75-99)
[2019-06-04] MEDS: METOPROLOL TARTRATE 25 MG TAB PO SCH (20:40)
[2019-06-04] MEDS: VENLAFAXINE HCL ER 150 MG CAP PO SCH (20:41)
[2019-06-04] MEDS: MONTELUKAST 10 MG TAB PO SCH (20:41)
[2019-06-04 22:23] LABS: Platelet Count 33 k/uL (150-450)
[2019-06-05] MEDS: SODIUM CHLORIDE 0.9% 1,000 ML IV SCH ×3 (01:00→17:19)
[2019-06-05] MEDS: SALT AND SODA MOUTHWASH 1,000 ML PO SCH ×5 (05:36→23:35)
[2019-06-05 07:13] LABS: Glucose,Whole Blood 114 mg/dL (75-99)
[2019-06-05] MEDS: INSULIN ASPART (NovoLOG) 100 UNIT/ML VIAL SQ SCH ×4 (07:34→20:40)
[2019-06-05] MEDS: DIVALPROEX 500 MG TABLET.DR PO SCH ×2 (08:22→20:39)
[2019-06-05] MEDS: ACYCLOVIR 200 MG CAP PO SCH ×2 (08:22→20:39)
[2019-06-05] MEDS: ALLOPURINOL 300 MG TAB PO SCH ×2 (08:22→20:39)
[2019-06-05] MEDS: DICYCLOMINE 20 MG TAB PO SCH ×3 (08:22→21:50)
[2019-06-05 09:00] LABS: MCH 29.9 pg (25.0-35.0); MCHC 34.2 g/dL (31.0-37.0); MCV 87.4 fL (80.0-100.0); Mean Platelet Volume 8.7; Poikilocytosis Slight; RDW 14.9 % (11.5-15.5); WBC 1.6 k/uL (3.8-10.6)
[2019-06-05 09:19] LABS: Platelet Count 24 k/uL (150-450)
[2019-06-05 10:10] LABS: ALT 38 U/L (4-49); AST 25 U/L (17-59); African American GFR (CKD) >90 (>60 ml/min/1.73 sqM); Albumin 3.9 g/dL (3.5-5.0); Alkaline Phosphatase 86 U/L (38-126); Anion Gap 7 mmol/L; Blood Urea Nitrogen 11 mg/dL (9-20); Calcium 8.9 mg/dL (8.4-10.2); Carbon Dioxide 28 mmol/L (22-30); Chloride 105 mmol/L (98-107); Glucose 107 mg/dL (74-99); Non-African American GFR(CKD) >90 (>60 ml/min/1.73 sqM); Phosphorus 3.7 mg/dL (2.5-4.5); Potassium 4.2 mmol/L (3.5-5.1); Sodium 140 mmol/L (137-145); Total Bilirubin 0.6 mg/dL (0.2-1.3); Total Protein 6.7 g/dL (6.3-8.2); Uric Acid 1.9 mg/dL (3.5-8.5)
--- NOTE | 2019-06-05 11:11 | P.PN ---
Subjective Progress Note Date: 06/05/19 This is a 48-year-old male patient was then admitted under oncology services for inpatient chemotherapy patient has known past medical history of acute erythroid leukemia. Patient received induction therapy January 2019. Patient did have episodes of pancytopenia postchemotherapy requiring hospital admission. Additional medical history includes asthma, cancer, colitis, GERD, GI bleed, hyperlipidemia, hypertension, sleep apnea, neuropathy, diabetes mellitus type 2, bipolar anxiety and depression. Patient underwent bone marrow biopsy and 04/11/2019 showing findings consistent with acute erythroid leukemia. Patient has been admitted for inpatient chemotherapy. Patient denies any other complain ts at this time On 06/04/2019 patient is alert and oriented 3. Patient had first round of chemotherapy. Patient denies any chest pain or shortness breath. Patient denies nausea or vomiting. Patient did have 2 episodes of diarrhea in which he was given Imodium. Patient denies any burning with urination. Patient denies any sores to mouth or body. Patient has been afebrile. Continue to monitor closely On 06/05/2019 patient is alert and oriented 3. Patient completed the lauren chemotherapy. Patient states diarrhea has improved. Patient denies any chest pain or shortness breath. Patient denies nausea vomiting or diarrhea. Patient denies any urinary burning or frequency Objective - Vital Signs Vital signs: Vital Signs Temp 98.3 F 06/05/19 08:00 Pulse 86 06/05/19 08:00 Resp 20 06/05/19 08:00 BP 128/59 06/05/19 08:00 Pulse Ox 97 06/05/19 08:00 Intake & Output 06/04/19 06/05/19 06/05/19 18:59 06:59 18:59 Intake Total 2200 965 Balance 2200 965 Weight 93.803 kg 92.5 kg Intake: Intake, IV Titration 1000 375 Amount Sodium Chloride 0.9% 1, 1000 375 000 ml @ 125 mls/hr IV . Q8H [facility] Rx#:[id number] Oral 1200 590 Other: Voiding Method Toilet Toilet Toilet # Voids 2 2 - Exam Head normocephalic Neck supple Lungs clear to auscultation bilaterally no wheezing or crackles Heart regular rate and rhythm S1-S2, no rub or gallop Abdomen is soft nontender nondistended positive bowel sounds no hepatosplenomegaly Extremities no edema Neuro alert and orientated to 3 - Labs CBC & Chem 7: 06/05/19 07:50 06/05/19 07:50 Labs: Abnormal Lab Results - Last 24 Hours (Table) 06/04/19 06/04/19 06/04/19 Range/Units 02:45 11:18 14:58 WBC 2.0 L (3.8-10.6) k/uL RBC 4.02 L (4.30-5.90) m/uL Hgb 12.2 L (13.0-17.5) gm/dL Hct 35.5 L (39.0-53.0) % Plt Count 23 L 33 L D (150-450) k/uL Neutrophils # 1.0 L (1.3-7.7) k/uL Neutrophils # (Manual) 0.90 L (1.3-7.7) k/uL Lymphocytes # 0.7 L (1.0-4.8) k/uL Nucleated RBCs 1 H (0-0) /100 WBC Creatinine (0.66-1.25) mg/dL Glucose (74-99) mg/dL POC Glucose (mg/dL) 170 H (75-99) mg/dL Uric Acid (3.5-8.5) mg/dL 06/04/19 06/04/19 06/05/19 Range/Units 14:58 19:58 07:12 WBC (3.8-10.6) k/uL RBC (4.30-5.90) m/uL Hgb (13.0-17.5) gm/dL Hct (39.0-53.0) % Plt Count (150-450) k/uL Neutrophils # (1.3-7.7) k/uL Neutrophils # (Manual) (1.3-7.7) k/uL Lymphocytes # (1.0-4.8) k/uL Nucleated RBCs (0-0) /100 WBC Creatinine (0.66-1.25) mg/dL Glucose 124 H (74-99) mg/dL POC Glucose (mg/dL) 157 H 114 H (75-99) mg/dL Uric Acid 2.1 L (3.5-8.5) mg/dL 06/05/19 06/05/19 Range/Units 07:50 07:50 WBC 1.6 L (3.8-10.6) k/uL RBC 4.00 L (4.30-5.90) m/uL Hgb 12.0 L (13.0-17.5) gm/dL Hct 35.0 L (39.0-53.0) % Plt Count 24 L (150-450) k/uL Neutrophils # (1.3-7.7) k/uL Neutrophils # (Manual) (1.3-7.7) k/uL Lymphocytes # (1.0-4.8) k/uL Nucleated RBCs (0-0) /100 WBC Creatinine 0.65 L (0.66-1.25) mg/dL Glucose 107 H (74-99) mg/dL POC Glucose (mg/dL) (75-99) mg/dL Uric Acid 1.9 L (3.5-8.5) mg/dL Assessment and Plan Assessment: 1. Acute erythroid leukemia. Currently on salvage treatment with Venetoclax and Vidaza. Status post induction therapy in January 2019 with no response. B one marrow biopsy on 04/11/2019 showing acute erythroid leukemia. Patient has been admitted for inpatient chemotherapy. Status post cycle 2 2. 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 Current platelet level XXIV 3. History of essential hypertension 4. History of depression 5. History of diabetes mellitus type 2. Homans resume sliding scale insulin ordered 6. History of coronary artery disease 7. History of obstructive sleep apnea maintained on CPAP 8. History of osteoarthritis 9. History of bipolar depression. Patient maintained on Depakote 10. Mild diarrhea. Patient was given Imodium symptoms resolve we'll continue to monitor Thank you for this consultation we will continue to follow patient closely throughout stay I performed an examination of the patient and discussed their management with the Nurse Practitioner. I have reviewed the Nurse Practitioner's notes and agree with the documented findings and plan of care
[2019-06-05 11:25] LABS: Basophils # (M) 0.02 k/uL (0-0.2); Eosinophils # (M) 0.06 k/uL (0-0.7); Lymphocytes # (M) 0.58 k/uL (1.0-4.8); Monocytes # (M) 0.06 k/uL (0-1.0); Neutrophils # (M) 0.88 k/uL (1.3-7.7); Neutrophils % (M) 55 %; Nucleated Red Blood Cells 0 /100 WBC (0-0); Total Cells Counted 100
[2019-06-05 11:48] LABS: Glucose,Whole Blood 115 mg/dL (75-99)
[2019-06-05] MEDS: VORICONAZOLE 50 MG PO SCH (11:50)
[2019-06-05] MEDS: ONDANSETRON 16 MG in SODIUM CHLORIDE 0.9% 50 ML IVPB SCH (13:48)
[2019-06-05] MEDS: AZACITIDINE IV SCH (14:21)
[2019-06-05] MEDS: SODIUM CHLORIDE 0.9% IV SCH (14:21)
[2019-06-05] MEDS: VENCLEXTA 100 MG PO SCH (17:20)
[2019-06-05] MEDS: FENOFIBRATE 160 MG TAB PO SCH (17:20)
[2019-06-05] MEDS: metFORMIN 500 MG TAB PO SCH (17:20)
[2019-06-05 17:23] LABS: Glucose,Whole Blood 136 mg/dL (75-99)
[2019-06-05 20:33] LABS: Glucose,Whole Blood 113 mg/dL (75-99)
[2019-06-05] MEDS: METOPROLOL TARTRATE 25 MG TAB PO SCH (20:39)
[2019-06-05] MEDS: MONTELUKAST 10 MG TAB PO SCH (20:39)
[2019-06-05] MEDS: VENLAFAXINE HCL ER 150 MG CAP PO SCH (20:40)
[2019-06-06] MEDS: SODIUM CHLORIDE 0.9% 1,000 ML IV SCH ×3 (02:00→17:43)
[2019-06-06] MEDS: SALT AND SODA MOUTHWASH 1,000 ML PO SCH ×5 (05:00→22:07)
[2019-06-06 07:10] LABS: Glucose,Whole Blood 114 mg/dL (75-99)
[2019-06-06] MEDS: INSULIN ASPART (NovoLOG) 100 UNIT/ML VIAL SQ SCH ×4 (07:19→22:06)
[2019-06-06 07:52] LABS: HCT 32.6 % (39.0-53.0); HGB 11.4 gm/dL (13.0-17.5); MCH 30.7 pg (25.0-35.0); MCHC 34.9 g/dL (31.0-37.0); MCV 87.8 fL (80.0-100.0); Poikilocytosis Slight; RBC 3.71 m/uL (4.30-5.90); WBC 1.5 k/uL (3.8-10.6)
[2019-06-06 07:57] LABS: Platelet Count 28 k/uL (150-450)
[2019-06-06 08:04] LABS: ALT 35 U/L (4-49); AST 23 U/L (17-59); African American GFR (CKD) >90 (>60 ml/min/1.73 sqM); Albumin 3.9 g/dL (3.5-5.0); Alkaline Phosphatase 87 U/L (38-126); Anion Gap 8 mmol/L; Blood Urea Nitrogen 13 mg/dL (9-20); Calcium 9.1 mg/dL (8.4-10.2); Carbon Dioxide 28 mmol/L (22-30); Chloride 102 mmol/L (98-107); Glucose 105 mg/dL (74-99); Non-African American GFR(CKD) >90 (>60 ml/min/1.73 sqM); Phosphorus 3.9 mg/dL (2.5-4.5); Potassium 4.3 mmol/L (3.5-5.1); Sodium 138 mmol/L (137-145); Total Bilirubin 0.7 mg/dL (0.2-1.3); Total Protein 6.6 g/dL (6.3-8.2); Uric Acid 1.6 mg/dL (3.5-8.5)
[2019-06-06] MEDS: ACYCLOVIR 200 MG CAP PO SCH ×2 (08:39→22:05)
[2019-06-06] MEDS: ALLOPURINOL 300 MG TAB PO SCH ×2 (08:39→22:04)
[2019-06-06] MEDS: DICYCLOMINE 20 MG TAB PO SCH ×3 (08:39→22:04)
[2019-06-06] MEDS: DIVALPROEX 500 MG TABLET.DR PO SCH ×2 (08:39→22:04)
[2019-06-06 09:30] LABS: Lymphocytes # (M) 0.69 k/uL (1.0-4.8); Monocytes # (M) 0.12 k/uL (0-1.0); Neutrophils # (M) 0.69 k/uL (1.3-7.7); Neutrophils % (M) 46 %; Nucleated Red Blood Cells 0 /100 WBC (0-0); Total Cells Counted 100
--- NOTE | 2019-06-06 10:32 | P.PN ---
Subjective Progress Note Date: 06/06/19 This is a 48-year-old male patient was then admitted under oncology services for inpatient chemotherapy patient has known past medical history of acute erythroid leukemia. Patient received induction therapy January 2019. Patient did have episodes of pancytopenia postchemotherapy requiring hospital admission. Additional medical history includes asthma, cancer, colitis, GERD, GI bleed, hyperlipidemia, hypertension, sleep apnea, neuropathy, diabetes mellitus type 2, bipolar anxiety and depression. Patient underwent bone marrow biopsy and 04/11/2019 showing findings consistent with acute erythroid leukemia. Patient has been admitted for inpatient chemotherapy. Patient denies any other complain ts at this time On 06/04/2019 patient is alert and oriented 3. Patient had first round of chemotherapy. Patient denies any chest pain or shortness breath. Patient denies nausea or vomiting. Patient did have 2 episodes of diarrhea in which he was given Imodium. Patient denies any burning with urination. Patient denies any sores to mouth or body. Patient has been afebrile. Continue to monitor closely On 06/05/2019 patient is alert and oriented 3. Patient completed the lauren chemotherapy. Patient states diarrhea has improved. Patient denies any chest pain or shortness breath. Patient denies nausea vomiting or diarrhea. Patient denies any urinary burning or frequency On 06/06/2019 patient is alert and oriented 3. Patient states he is feeling well today. Patient denies any shortness of breath chest pain. Patient denies nausea vomiting or diarrhea. Patient has remained afebrile. Patient continues received chemotherapy patient. Oncology is following. Patient denies any urinary burning or frequency. Objective - Vital Signs Vital signs: Vital Signs Temp 98.1 F 06/06/19 04:00 Pulse 82 06/06/19 04:00 Resp 18 06/06/19 04:00 BP 112/69 06/06/19 04:00 Pulse Ox 98 06/06/19 04:00 Intake & Output 06/05/19 06/06/19 06/06/19 18:59 06:59 18:59 Intake Total 1375 Balance 1375 Weight 92 kg Intake: Intake, IV Titration 1375 Amount Sodium Chloride 0.9% 1, 1375 000 ml @ 125 mls/hr IV . Q8H [facility] Rx#:[id number] Other: Voiding Method Toilet Toilet # Voids 2 - Exam Head normocephalic Neck supple Lungs clear to auscultation bilaterally no wheezing or crackles Heart regular rate and rhythm S1-S2, no rub or gallop Abdomen is soft nontender nondistended positive bowel sounds no h epatosplenomegaly Extremities no edema Neuro alert and orientated to 3 - Labs CBC & Chem 7: 06/06/19 06:45 06/06/19 06:45 Labs: Abnormal Lab Results - Last 24 Hours (Table) 06/05/19 06/05/19 06/05/19 Range/Units 07:50 11:46 17:11 WBC (3.8-10.6) k/uL RBC (4.30-5.90) m/uL Hgb (13.0-17.5) gm/dL Hct (39.0-53.0) % Plt Count 24 L (150-450) k/uL Neutrophils # (Manual) 0.88 L (1.3-7.7) k/uL Lymphocytes # (Manual) 0.58 L (1.0-4.8) k/uL Glucose (74-99) mg/dL POC Glucose (mg/dL) 115 H 136 H (75-99) mg/dL Uric Acid (3.5-8.5) mg/dL 06/05/19 06/06/19 06/06/19 Range/Units 20:31 06:45 06:45 WBC 1.5 L (3.8-10.6) k/uL RBC 3.71 L (4.30-5.90) m/uL Hgb 11.4 L (13.0-17.5) gm/dL Hct 32.6 L (39.0-53.0) % Plt Count 28 L (150-450) k/uL Neutrophils # (Manual) 0.69 L (1.3-7.7) k/uL Lymphocytes # (Manual) 0.69 L (1.0-4.8) k/uL Glucose 105 H (74-99) mg/dL POC Glucose (mg/dL) 113 H (75-99) mg/dL Uric Acid 1.6 L (3.5-8.5) mg/dL 06/06/19 Range/Units 07:08 WBC (3.8-10.6) k/uL RBC (4.30-5.90) m/uL Hgb (13.0-17.5) gm/dL Hct (39.0-53.0) % Plt Count (150-450) k/uL Neutrophils # (Manual) (1.3-7.7) k/uL Lymphocytes # (Manual) (1.0-4.8) k/uL Glucose (74-99) mg/dL POC Glucose (mg/dL) 114 H (75-99) mg/dL Uric Acid (3.5-8.5) mg/dL Assessment and Plan Assessment: 1. Acute erythroid leukemia. Currently on salvage treatment with Venetoclax and Vidaza. Status post induction therapy in January 2019 with no response. Bone marrow biopsy on 04/11/2019 showing acute erythroid leukemia. Patient has been admitted for inpatient chemotherapy. Status post cycle 3. 2. 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 Current platelet level 28,000. 3. History of essential hypertension 4. History of depression 5. History of diabetes mellitus type 2. Home meds resume sliding scale insulin ordered 6. History of coronary artery disease 7. History of obstructive sleep apnea maintained on CPAP 8. History of osteoarthritis 9. History of bipolar depression. Patient maintained on Depakote 10. Mild diarrhea. Patient was given Imodium symptoms resolve we'll continue to monitor I performed an examination of the patient and discussed their management with the Nurse Practitioner. I have reviewed the Nurse Practitioner's notes and agree with the documented findings and plan of care
[2019-06-06] MEDS: VORICONAZOLE 50 MG PO SCH (11:36)
[2019-06-06 11:50] LABS: Glucose,Whole Blood 118 mg/dL (75-99)
[2019-06-06] MEDS: ONDANSETRON 16 MG in SODIUM CHLORIDE 0.9% 50 ML IVPB SCH (13:00)
[2019-06-06] MEDS: SODIUM CHLORIDE 0.9% IV SCH (13:52)
[2019-06-06] MEDS: AZACITIDINE IV SCH (13:52)
[2019-06-06 16:48] LABS: Glucose,Whole Blood 100 mg/dL (75-99)
[2019-06-06] MEDS: FENOFIBRATE 160 MG TAB PO SCH (17:13)
[2019-06-06] MEDS: metFORMIN 500 MG TAB PO SCH (17:13)
[2019-06-06] MEDS: VENCLEXTA 100 MG PO SCH (17:16)
--- NOTE | 2019-06-06 17:20 | P.PN ---
Subjective Progress Note Date: 06/05/19 Principal diagnosis: AEL, admit for chemo In f/u today pt has no c/o on a 14 point ROS, eating and drinking, no uncontrolled pain Objective - Vital Signs Vital signs: Vital Signs Temp 98.2 F 06/05/19 16:00 Pulse 80 06/05/19 16:00 Resp 18 06/05/19 16:00 BP 114/65 06/05/19 16:00 Pulse Ox 98 06/05/19 16:00 Intake & Output 06/05/19 06/05/19 06/06/19 06:59 18:59 06:59 Intake Total 965 Balance 965 Weight 92.5 kg Intake: Intake, IV Titration 375 Amount Sodium Chloride 0.9% 1, 375 000 ml @ 125 mls/hr IV . Q8H [facility] Rx#:[id number] Oral 590 Other: Voiding Method Toilet Toilet # Voids 2 2 - Constitutional General appearance: Present: average body habitus, cooperative, no acute distress - EENT Eyes: Present: anicteric sclerae, EOMI ENT: Present: hearing grossly normal, normal oropharynx - Respiratory Respiratory: bilateral: CTA - Cardiovascular Rhythm: regular Heart sounds: normal: S1, S2 Abnormal Heart Sounds: Absent: systolic murmur, diastolic murmur, rub, S3 Gallop, S4 Gallop, click, other - Peripheral edema leg Peripheral Edema: bilateral: Trace - Gastrointestinal General gastrointestinal: Present: normal bowel sounds, soft. Absent: absent bowel sounds, decreased bowel sounds, distended, hepatomegaly, hyperactive bowel sounds, organomegaly, rigid, scaphoid, splenomegaly, tenderness, umbilical hernia, ventral hernia - Integumentary Integumentary: Present: normal - Neurologic Neurologic: Present: CNII-XII intact - Musculoskeletal Musculoskeletal: Present: strength equal bilaterally - Psychiatric Psychiatric: Present: A&O x's 3, appropriate affect, intact judgment & insight - Labs CBC & Chem 7: 06/06/19 06:45 06/06/19 06:45 Labs: Abnormal Lab Results - Last 24 Hours (Table) 06/04/19 06/05/19 06/05/19 Range/Units 14:58 07:12 07:50 WBC (3.8-10.6) k/uL RBC (4.30-5.90) m/uL Hgb (13.0-17.5) gm/dL Hct (39.0-53.0) % Plt Count 33 L D (150-450) k/uL Neutrophils # (Manual) (1.3-7.7) k/uL Lymphocytes # (Manual) (1.0-4.8) k/uL Creatinine 0.65 L (0.66-1.25) mg/dL Glucose 107 H (74-99) mg/dL POC Glucose (mg/dL) 114 H (75-99) mg/dL Uric Acid 1.9 L (3.5-8.5) mg/dL 06/05/19 06/05/19 06/05/19 Range/Units 07:50 11:46 17:11 WBC 1.6 L (3.8-10.6) k/uL RBC 4.00 L (4.30-5.90) m/uL Hgb 12.0 L (13.0-17.5) gm/dL Hct 35.0 L (39.0-53.0) % Plt Count 24 L (150-450) k/uL Neutrophils # (Manual) 0.88 L (1.3-7.7) k/uL Lymphocytes # (Manual) 0.58 L (1.0-4.8) k/uL Creatinine (0.66-1.25) mg/dL Glucose (74-99) mg/dL POC Glucose (mg/dL) 115 H 136 H (75-99) mg/dL Uric Acid (3.5-8.5) mg/dL Assessment and Plan (1) Acute erythroid leukemia Narrative/Plan: Admit for PO and IV chemo Labs daily Supportive medications Meds reconciled, venetoclax dose adjusted for 06/03-06/05 to 200mg daily then increase to 400mg daily Stop lipitor and trazadone due to interaction with venetoclax daily f/u GI/DVT prophylaxis Encourage ambulation Diet as tolerated Current Visit: Yes Status: Acute Priority: High Code(s): C94.00 - ACUTE ERYTHROID LEUKEMIA, NOT HAVING ACHIEVED REMISSION SNOMED Code(s): 65066492 (2) Diabetes mellitus type 2, uncontrolled, with complications Current Visit: No Status: Chronic Priority: Medium Code(s): E11.8 - TYPE 2 DIABETES MELLITUS WITH UNSPECIFIED COMPLICATIONS; E11.65 - TYPE 2 DIABETES MELLITUS WITH HYPERGLYCEMIA SNOMED Code(s): 22928533 (3) Hypertension Current Visit: No Status: Chronic Priority: Medium Code(s): I10 - ESSENTIAL (PRIMARY) HYPERTENSION SNOMED Code(s): 40545129 (4) Seizure Current Visit: No Status: Chronic Priority: Medium Code(s): R56.9 - UNSPECIFIED CONVULSIONS SNOMED Code(s): 05136048 Plan: Internal Medicine consulted for medical management Disability paperwork completed
--- NOTE | 2019-06-06 17:50 | P.PN ---
Subjective Progress Note Date: 06/06/19 The patient continues on treatment per protocol. He denies any new complaints. Specifically no history of mouth sores, fevers, chills, nausea or vomiting. No history of any shortness of breath or leg swelling Objective - Vital Signs Vital signs: Vital Signs Temp 98.9 F 06/06/19 16:00 Pulse 85 06/06/19 16:00 Resp 16 06/06/19 16:00 BP 124/76 06/06/19 16:00 Pulse Ox 97 06/06/19 16:00 Intake & Output 06/05/19 06/06/19 06/06/19 18:59 06:59 18:59 Intake Total 1375 975 Balance 1375 975 Weight 92 kg Intake: Intake, IV Titration 1375 975 Amount Ondansetron 16 mg In 50 Sodium Chloride 0.9% 50 ml @ 232 mls/hr IVPB Q24H [facility] Rx#:[id number] Sodium Chloride 0.9% 1, 1375 925 000 ml @ 125 mls/hr IV . Q8H [facility] Rx#:[id number] Other: Voiding Method Toilet Toilet # Voids 2 - Constitutional General appearance: Present: no acute distress - EENT Eyes: Present: EOMI ENT: Present: hearing grossly normal, normal oropharynx - Respiratory Respiratory: bilateral: CTA - Cardiovascular Rhythm: regular Heart sounds: normal: S1, S2 - Gastrointestinal General gastrointestinal: Present: normal bowel sounds, soft - Integumentary Integumentary: Present: normal - Neurologic Neurologic: Present: CNII-XII intact - Musculoskeletal Musculoskeletal: Present: strength equal bilaterally - Psychiatric Psychiatric: Present: A&O x's 3, appropriate affect - Labs CBC & Chem 7: 06/06/19 06:45 06/06/19 06:45 Labs: Abnormal Lab Results - Last 24 Hours (Table) 06/05/19 06/06/19 06/06/19 Range/Units 20:31 06:45 06:45 WBC 1.5 L (3.8-10.6) k/uL RBC 3.71 L (4.30-5.90) m/uL Hgb 11.4 L (13.0-17.5) gm/dL Hct 32.6 L (39.0-53.0) % Plt Count 28 L (150-450) k/uL Neutrophils # (Manual) 0.69 L (1.3-7.7) k/uL Lymphocytes # (Manual) 0.69 L (1.0-4.8) k/uL Glucose 105 H (74-99) mg/dL POC Glucose (mg/dL) 113 H (75-99) mg/dL Uric Acid 1.6 L (3.5-8.5) mg/dL 06/06/19 06/06/19 06/06/19 Range/Units 07:08 11:49 16:47 WBC (3.8-10.6) k/uL RBC (4.30-5.90) m/uL Hgb (13.0-17.5) gm/dL Hct (39.0-53.0) % Plt Count (150-450) k/uL Neutrophils # (Manual) (1.3-7.7) k/uL Lymphocytes # (Manual) (1.0-4.8) k/uL Glucose (74-99) mg/dL POC Glucose (mg/dL) 114 H 118 H 100 H (75-99) mg/dL Uric Acid (3.5-8.5) mg/dL Assessment and Plan (1) Acute erythroid leukemia Narrative/Plan: The patient is currently on salvage regimen with Venclexta and Vidaza. He is tolerating treatment well. No evidence of any tumor lysis. Continue treatment per protocol, with tumor lysis precautions. Continue to monitor with physical exam and labs Current Visit: Yes Status: Acute Priority: High Code(s): C94.00 - ACUTE ERYTHROID LEUKEMIA, NOT HAVING ACHIEVED REMISSION SNOMED Code(s): 99696541 (2) Pancytopenia Narrative/Plan: Due to underlying residual AML, and antineoplastic treatment. Counts continue to be in a safe range. No supportive transfusions required today. Continue to monitor and transfuse as needed Current Visit: No Status: Acute Priority: High Code(s): D61.818 - OTHER PANCYTOPENIA SNOMED Code(s): 632945130 Plan: Internal medicine service is following for management of his other medical problems, which are all stable at this time.
[2019-06-06 20:50] LABS: Glucose,Whole Blood 139 mg/dL (75-99)
[2019-06-06] MEDS: MONTELUKAST 10 MG TAB PO SCH (22:04)
[2019-06-06] MEDS: METOPROLOL TARTRATE 25 MG TAB PO SCH (22:04)
[2019-06-06] MEDS: VENLAFAXINE HCL ER 150 MG CAP PO SCH (22:04)
[2019-06-07] MEDS: SODIUM CHLORIDE 0.9% 1,000 ML IV SCH ×3 (02:59→21:25)
[2019-06-07] MEDS: SALT AND SODA MOUTHWASH 1,000 ML PO SCH ×5 (05:33→21:31)
[2019-06-07 06:57] LABS: Glucose,Whole Blood 109 mg/dL (75-99)
[2019-06-07 07:06] LABS: Basophils % (A) 1 %; Eosinophils % (A) 3 %; HCT 32.2 % (39.0-53.0); HGB 11.2 gm/dL (13.0-17.5); Lymphocytes # (A) 0.5 k/uL (1.0-4.8); Lymphocytes % (A) 39 %; MCH 30.3 pg (25.0-35.0); MCHC 34.9 g/dL (31.0-37.0); MCV 86.6 fL (80.0-100.0); Mean Platelet Volume 15.6; Monocytes # (A) 0.1 k/uL (0-1.0); Monocytes % (A) 7 %; Neutrophils # (A) 0.6 k/uL (1.3-7.7); Neutrophils % (A) 47 %; Poikilocytosis Slight; RBC 3.71 m/uL (4.30-5.90); RDW 14.8 % (11.5-15.5)
[2019-06-07 07:18] LABS: African American GFR (CKD) >90 (>60 ml/min/1.73 sqM); Albumin 3.8 g/dL (3.5-5.0); Carbon Dioxide 27 mmol/L (22-30); Glucose 108 mg/dL (74-99); Non-African American GFR(CKD) >90 (>60 ml/min/1.73 sqM); Potassium 4.2 mmol/L (3.5-5.1); Sodium 140 mmol/L (137-145); Total Protein 6.6 g/dL (6.3-8.2)
[2019-06-07 07:20] LABS: ALT 33 U/L (4-49); AST 25 U/L (17-59); Alkaline Phosphatase 86 U/L (38-126); Blood Urea Nitrogen 13 mg/dL (9-20); Total Bilirubin 0.8 mg/dL (0.2-1.3)
[2019-06-07 07:39] LABS: Platelet Count 25 k/uL (150-450)
[2019-06-07] MEDS: INSULIN ASPART (NovoLOG) 100 UNIT/ML VIAL SQ SCH ×4 (07:44→21:31)
[2019-06-07 07:51] LABS: Anion Gap 8 mmol/L; Chloride 105 mmol/L (98-107)
[2019-06-07] MEDS: DICYCLOMINE 20 MG TAB PO SCH ×3 (09:31→21:26)
[2019-06-07] MEDS: DIVALPROEX 500 MG TABLET.DR PO SCH ×2 (09:32→21:26)
[2019-06-07] MEDS: ALLOPURINOL 300 MG TAB PO SCH ×2 (09:32→21:31)
[2019-06-07] MEDS: ACYCLOVIR 200 MG CAP PO SCH ×2 (09:32→21:25)
[2019-06-07 11:22] LABS: Glucose,Whole Blood 116 mg/dL (75-99)
[2019-06-07 11:30] LABS: Large Platelets Present
[2019-06-07 11:36] LABS: WBC 1.3 k/uL (3.8-10.6)
[2019-06-07] MEDS: VORICONAZOLE 50 MG PO SCH (12:17)
[2019-06-07] MEDS: ONDANSETRON 16 MG in SODIUM CHLORIDE 0.9% 50 ML IVPB SCH (13:30)
[2019-06-07] MEDS: SODIUM CHLORIDE 0.9% IV SCH (13:53)
[2019-06-07] MEDS: AZACITIDINE IV SCH (13:53)
[2019-06-07] MEDS ORDERED: HYDROcodone/APAP 5-325MG 1 EACH TAB PO PRN (14:45)
--- NOTE | 2019-06-07 14:45 | P.PN ---
Subjective Progress Note Date: 06/07/19 This is a 48-year-old male patient was then admitted under oncology services for inpatient chemotherapy patient has known past medical history of acute erythroid leukemia. Patient received induction therapy January 2019. Patient did have episodes of pancytopenia postchemotherapy requiring hospital admission. Additional medical history includes asthma, cancer, colitis, GERD, GI bleed, hyperlipidemia, hypertension, sleep apnea, neuropathy, diabetes mellitus type 2, bipolar anxiety and depression. Patient underwent bone marrow biopsy and 04/11/2019 showing findings consistent with acute erythroid leukemia. Patient has been admitted for inpatient chemotherapy. Patient denies any other complai nts at this time On 06/04/2019 patient is alert and oriented 3. Patient had first round of chemotherapy. Patient denies any chest pain or shortness breath. Patient denies nausea or vomiting. Patient did have 2 episodes of diarrhea in which he was given Imodium. Patient denies any burning with urination. Patient denies any sores to mouth or body. Patient has been afebrile. Continue to monitor closely On 06/05/2019 patient is alert and oriented 3. Patient completed the lauren chemotherapy. Patient states diarrhea has improved. Patient denies any chest pain or shortness breath. Patient denies nausea vomiting or diarrhea. Patient denies any urinary burning or frequency On 06/06/2019 patient is alert and oriented 3. Patient states he is feeling well today. Patient denies any shortness of breath chest pain. Patient denies nausea vomiting or diarrhea. Patient has remained afebrile. Patient continues received chemotherapy patient. Oncology is following. Patient denies any urinary burning or frequency. On 06/07/2019 patient was seen and examined on the medical floor he is alert and oriented 3 in no apparent distress he is complaining of headache and he is complaining of minimal nasal bleeding otherwise he denies any complaints there is no fever or chills no dizziness no chest pain no shortness of breath no cough no nausea or vomiting no abdominal pain no diarrhea no burning with urination no frequency or urgency and no hematuria. Objective - Vital Signs Vital signs: Vital Signs Temp 98 F 06/07/19 12:00 Pulse 68 06/07/19 12:00 Resp 20 06/07/19 12:00 BP 112/64 06/07/19 12:00 Pulse Ox 98 06/07/19 12:00 Intake & Output 06/06/19 06/07/19 06/07/19 18:59 06:59 18:59 Intake Total 975 1940 937.5 Balance 975 1940 937.5 Weight 92 kg Intake: Intake, IV Titration 975 1350 937.5 Amount Ondansetron 16 mg In 50 50 Sodium Chloride 0.9% 50 ml @ 232 mls/hr IVPB Q24H TABITHA Rx#:[id number] Sodium Chloride 0.9% 1, 925 1250 937.5 000 ml @ 125 mls/hr IV . Q8H TABITHA Rx#:[id number] azaCITIDine 155 mg In 50 Sodium Chloride 0.9% 50 ml @ 131 mls/hr IV Q24H TABITHA Rx#:[id number] Oral 590 Other: Voiding Method Toilet # Voids 2 - Exam In general patient is alert and oriented 3 in no apparent distress Head normocephalic and atraumatic Neck supple no JVD no goiter Lungs clear to auscultation bilaterally no wheezing or crackles Heart regular rate and rhythm S1-S2, no rub or gallop Abdomen is soft nontender nondistended positive bowel sounds no hepatosplenomegaly Extremities no edema no cyanosis or clubbing Neuro no gross focal neurological deficit - Labs CBC & Chem 7: 06/07/19 06:33 06/07/19 06:33 Labs: Abnormal Lab Results - Last 24 Hours (Table) 06/06/19 06/06/19 06/07/19 Range/Units 16:47 20:49 06:33 WBC 1.3 L* (3.8-10.6) k/uL RBC 3.71 L (4.30-5.90) m/uL Hgb 11.2 L (13.0-17.5) gm/dL Hct 32.2 L (39.0-53.0) % Plt Count 25 L (150-450) k/uL Neutrophils # 0.6 L (1.3-7.7) k/uL Lymphocytes # 0.5 L (1.0-4.8) k/uL Glucose (74-99) mg/dL POC Glucose (mg/dL) 100 H 139 H (75-99) mg/dL 06/07/19 06/07/19 06/07/19 Range/Units 06:33 06:49 11:20 WBC (3.8-10.6) k/uL RBC (4.30-5.90) m/uL Hgb (13.0-17.5) gm/dL Hct (39.0-53.0) % Plt Count (150-450) k/uL Neutrophils # (1.3-7.7) k/uL Lymphocytes # (1.0-4.8) k/uL Glucose 108 H (74-99) mg/dL POC Glucose (mg/dL) 109 H 116 H (75-99) mg/dL Assessment and Plan Plan: 1. Acute erythroid leukemia. Currently on salvage treatment with Venetoclax and Vidaza. Status post induction therapy in January 2019 with no response. Bone marrow biopsy on 04/11/2019 showing acute erythroid leukemia. Patient has been admitted for inpatient chemotherapy. Status post cycle 3. 2. 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 Current platelet level 28,000. 3. History of essential hypertension 4. History of depression 5. History of diabetes mellitus type 2. Home meds resume sliding scale insulin ordered 6. History of coronary artery disease 7. History of obstructive sleep apnea maintained on CPAP 8. History of osteoarthritis 9. History of bipolar depression. Patient maintained on Depakote 10. Mild diarrhea. Patient was given Imodium symptoms resolve we'll continue to monitor
[2019-06-07] MEDS: FENOFIBRATE 160 MG TAB PO SCH (17:10)
[2019-06-07] MEDS: metFORMIN 500 MG TAB PO SCH (17:10)
[2019-06-07] MEDS: VENCLEXTA 100 MG PO SCH (17:10)
[2019-06-07 17:12] LABS: Glucose,Whole Blood 109 mg/dL (75-99)
[2019-06-07 20:23] LABS: Glucose,Whole Blood 132 mg/dL (75-99)
[2019-06-07] MEDS: VENLAFAXINE HCL ER 150 MG CAP PO SCH (21:26)
[2019-06-07] MEDS: MONTELUKAST 10 MG TAB PO SCH (21:26)
[2019-06-07] MEDS: METOPROLOL TARTRATE 25 MG TAB PO SCH (21:27)
[2019-06-08] MEDS: SODIUM CHLORIDE 0.9% 1,000 ML IV SCH ×3 (03:48→17:33)
[2019-06-08] MEDS: SALT AND SODA MOUTHWASH 1,000 ML PO SCH ×5 (03:48→23:46)
[2019-06-08 07:01] LABS: Glucose,Whole Blood 106 mg/dL (75-99)
[2019-06-08] MEDS: INSULIN ASPART (NovoLOG) 100 UNIT/ML VIAL SQ SCH ×4 (07:19→21:10)
[2019-06-08 07:52] LABS: Basophils % (A) 2 %; Eosinophils # (A) 0.1 k/uL (0-0.7); Eosinophils % (A) 3 %; HCT 32.8 % (39.0-53.0); HGB 11.2 gm/dL (13.0-17.5); Lymphocytes # (A) 0.8 k/uL (1.0-4.8); Lymphocytes % (A) 43 %; MCH 29.6 pg (25.0-35.0); MCV 87.1 fL (80.0-100.0); Mean Platelet Volume 14.3; Monocytes # (A) 0.1 k/uL (0-1.0); Monocytes % (A) 6 %; Neutrophils # (A) 0.8 k/uL (1.3-7.7); Neutrophils % (A) 44 %; Poikilocytosis Slight; RBC 3.77 m/uL (4.30-5.90); RDW 14.6 % (11.5-15.5); WBC 1.8 k/uL (3.8-10.6)
[2019-06-08 07:58] LABS: ALT 37 U/L (4-49); AST 28 U/L (17-59); African American GFR (CKD) >90 (>60 ml/min/1.73 sqM); Alkaline Phosphatase 79 U/L (38-126); Anion Gap 8 mmol/L; Blood Urea Nitrogen 14 mg/dL (9-20); Calcium 9.3 mg/dL (8.4-10.2); Carbon Dioxide 29 mmol/L (22-30); Chloride 104 mmol/L (98-107); Glucose 98 mg/dL (74-99); Non-African American GFR(CKD) >90 (>60 ml/min/1.73 sqM); Potassium 4.1 mmol/L (3.5-5.1); Sodium 141 mmol/L (137-145); Total Bilirubin 0.7 mg/dL (0.2-1.3); Total Protein 6.8 g/dL (6.3-8.2)
[2019-06-08] MEDS: DICYCLOMINE 20 MG TAB PO SCH ×3 (08:34→21:10)
[2019-06-08] MEDS: ALLOPURINOL 300 MG TAB PO SCH ×2 (08:34→21:09)
[2019-06-08] MEDS: DIVALPROEX 500 MG TABLET.DR PO SCH ×2 (08:34→21:09)
[2019-06-08] MEDS: ACYCLOVIR 200 MG CAP PO SCH ×2 (08:34→21:09)
[2019-06-08 11:18] LABS: Glucose,Whole Blood 161 mg/dL (75-99)
[2019-06-08] MEDS: VORICONAZOLE 50 MG PO SCH (11:20)
[2019-06-08 11:37] LABS: Anisocytosis (M) Present
[2019-06-08 12:51] LABS: Mean Platelet Volume 7.5
[2019-06-08 13:15] LABS: Platelet Count 29 k/uL (150-450)
[2019-06-08] MEDS: ONDANSETRON 16 MG in SODIUM CHLORIDE 0.9% 50 ML IVPB SCH (13:27)
[2019-06-08] MEDS: AZACITIDINE IV SCH (14:10)
[2019-06-08] MEDS: SODIUM CHLORIDE 0.9% IV SCH (14:10)
--- NOTE | 2019-06-08 16:32 | P.PN ---
Subjective Progress Note Date: 06/08/19 This is a 48-year-old male patient was then admitted under oncology services for inpatient chemotherapy patient has known past medical history of acute erythroid leukemia. Patient received induction therapy January 2019. Patient did have episodes of pancytopenia postchemotherapy requiring hospital admission. Additional medical history includes asthma, cancer, colitis, GERD, GI bleed, hyperlipidemia, hypertension, sleep apnea, neuropathy, diabetes mellitus type 2, bipolar anxiety and depression. Patient underwent bone marrow biopsy and 04/11/2019 showing findings consistent with acute erythroid leukemia. Patient has been admitted for inpatient chemotherapy. Patient denies any other complai nts at this time On 06/04/2019 patient is alert and oriented 3. Patient had first round of chemotherapy. Patient denies any chest pain or shortness breath. Patient denies nausea or vomiting. Patient did have 2 episodes of diarrhea in which he was given Imodium. Patient denies any burning with urination. Patient denies any sores to mouth or body. Patient has been afebrile. Continue to monitor closely On 06/05/2019 patient is alert and oriented 3. Patient completed the lauren chemotherapy. Patient states diarrhea has improved. Patient denies any chest pain or shortness breath. Patient denies nausea vomiting or diarrhea. Patient denies any urinary burning or frequency On 06/06/2019 patient is alert and oriented 3. Patient states he is feeling well today. Patient denies any shortness of breath chest pain. Patient denies nausea vomiting or diarrhea. Patient has remained afebrile. Patient continues received chemotherapy patient. Oncology is following. Patient denies any urinary burning or frequency. On 06/07/2019 patient was seen and examined on the medical floor he is alert and oriented 3 in no apparent distress he is complaining of headache and he is complaining of minimal nasal bleeding otherwise he denies any complaints there is no fever or chills no dizziness no chest pain no shortness of breath no cough no nausea or vomiting no abdominal pain no diarrhea no burning with urination no frequency or urgency and no hematuria. On 06/08/2019 patient was seen and examined on the oncology floor he is doing well and denies any symptoms at this time there is no fever or chills no headache or dizziness no chest pain no shortness of breath no cough no nausea or vomiting no abdominal pain no diarrhea no blood in the stools no burning with urination no frequency or urgency no hematuria he is alert and oriented 3 and has no neurological symptoms Objective - Vital Signs Vital signs: Vital Signs Temp 98 F 06/08/19 16:00 Pulse 72 06/08/19 16:00 Resp 20 06/08/19 16:00 BP 106/62 06/08/19 16:00 Pulse Ox 93 L 06/08/19 16:00 Intake & Output 06/07/19 06/08/19 06/08/19 18:59 06:59 18:59 Intake Total 937.5 2990 1100 Balance 937.5 2990 1100 Weight 91.8 kg Intake: Intake, IV Titration 937.5 1150 1100 Amount Ondansetron 16 mg In 50 Sodium Chloride 0.9% 50 ml @ 232 mls/hr IVPB Q24H [facility]A Rx#:[id number] Sodium Chloride 0.9% 1, 937.5 1150 1000 000 ml @ 125 mls/hr IV . Q8H TAB[facility]A Rx#:[id number] azaCITIDine 155 mg In 50 Sodium Chloride 0.9% 50 ml @ 131 mls/hr IV Q24H TABITHA Rx#:[id number] Oral 1840 Other: Voiding Method Toilet Toilet Toilet # Voids 2 - Exam In general patient is alert and oriented 3 in no apparent distress Head normocephalic and atraumatic Neck supple no JVD no goiter Lungs clear to auscultation bilaterally no wheezing or crackles Heart regular rate and rhythm S1-S2, no rub or gallop Abdomen is soft nontender nondistended positive bowel sounds no hepatosplenomegaly Extremities no edema no cyanosis or clubbing Neuro no gross focal neurological deficit - Labs CBC & Chem 7: 06/08/19 11:41 06/08/19 07:24 Labs: Abnormal Lab Results - Last 24 Hours (Table) 06/07/19 06/07/19 06/08/19 Range/Units 17:10 20:21 06:59 WBC (3.8-10.6) k/uL RBC (4.30-5.90) m/uL Hgb (13.0-17.5) gm/dL Hct (39.0-53.0) % Plt Count (150-450) k/uL Neutrophils # (1.3-7.7) k/uL Lymphocytes # (1.0-4.8) k/uL POC Glucose (mg/dL) 109 H 132 H 106 H (75-99) mg/dL 06/08/19 06/08/19 06/08/19 Range/Units 07:24 11:16 11:41 WBC 1.8 L (3.8-10.6) k/uL RBC 3.77 L (4.30-5.90) m/uL Hgb 11.2 L (13.0-17.5) gm/dL Hct 32.8 L (39.0-53.0) % Plt Count 29 L (150-450) k/uL Neutrophils # 0.8 L (1.3-7.7) k/uL Lymphocytes # 0.8 L (1.0-4.8) k/uL POC Glucose (mg/dL) 161 H (75-99) mg/dL Assessment and Plan Plan: 1. Acute erythroid leukemia. Currently on salvage treatment with Venetoclax and Vidaza. Status post induction therapy in January 2019 with no response. Bone marrow biopsy on 04/11/2019 showing acute erythroid leukemia. Patient has been admitted for inpatient chemotherapy. Status post cycle 3. 2. 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 Current platelet level 28,000. 3. History of essential hypertension 4. History of depression 5. History of diabetes mellitus type 2. Home meds resume sliding scale insulin ordered 6. History of coronary artery disease 7. History of obstructive sleep apnea maintained on CPAP 8. History of osteoarthritis 9. History of bipolar depression. Patient maintained on Depakote 10. Mild diarrhea. Patient was given Imodium symptoms resolve we'll continue to monitor
[2019-06-08 17:06] LABS: Glucose,Whole Blood 131 mg/dL (75-99)
[2019-06-08] MEDS: FENOFIBRATE 160 MG TAB PO SCH (17:32)
[2019-06-08] MEDS: metFORMIN 500 MG TAB PO SCH (17:32)
[2019-06-08] MEDS: VENCLEXTA 100 MG PO SCH (17:33)
--- NOTE | 2019-06-08 18:48 | P.PN ---
Subjective Progress Note Date: 06/08/19 Principal diagnosis: acute myeloid leukemia on chemotherapy patient is stable with no new complaints, tolerating the medication well. As far as no evidence of tumor lysis yet. Plan to continue treatment as per the current protocol Venatoclax with Vidaza Objective - Vital Signs Vital signs: Vital Signs Temp 98 F 06/08/19 16:00 Pulse 72 06/08/19 16:00 Resp 20 06/08/19 16:00 BP 106/62 06/08/19 16:00 Pulse Ox 93 L 06/08/19 16:00 Intake & Output 06/07/19 06/08/19 06/08/19 18:59 06:59 18:59 Intake Total 937.5 2990 1100 Balance 937.5 2990 1100 Weight 91.8 kg Intake: Intake, IV Titration 937.5 1150 1100 Amount Ondansetron 16 mg In 50 Sodium Chloride 0.9% 50 ml @ 232 mls/hr IVPB Q24H [facility] Rx#:[id number] Sodium Chloride 0.9% 1, 937.5 1150 1000 000 ml @ 125 mls/hr IV . Q8H TAB[facility]A Rx#:[id number] azaCITIDine 155 mg In 50 Sodium Chloride 0.9% 50 ml @ 131 mls/hr IV Q24H TABITHA Rx#:[id number] Oral 1840 Other: Voiding Method Toilet Toilet Toilet # Voids 2 - Exam The patient appeared well nourished and normally developed. Vital signs as documented. Head exam is unremarkable. No scleral icterus or corneal arcus noted. Neck is without jugular venous distension, thyromegaly, or carotid bruits. Carotid upstrokes are brisk bilaterally. Lungs are clear to auscultation and percussion. Cardiac exam reveals the PMI to be normally sized and situated. Rhythm is regular. First and second heart sounds normal. No murmurs, rubs or gallops. Abdominal exam reveals normal bowel sounds, no masses, no organomegaly and no aortic enlargement. Extremities are nonedematous and both femoral and pedal pulses are normal. - Labs CBC & Chem 7: 06/08/19 11:41 06/08/19 07:24 Labs: Abnormal Lab Results - Last 24 Hours (Table) 06/07/19 06/08/19 06/08/19 Range/Units 20:21 06:59 07:24 WBC 1.8 L (3.8-10.6) k/uL RBC 3.77 L (4.30-5.90) m/uL Hgb 11.2 L (13.0-17.5) gm/dL Hct 32.8 L (39.0-53.0) % Plt Count (150-450) k/uL Neutrophils # 0.8 L (1.3-7.7) k/uL Lymphocytes # 0.8 L (1.0-4.8) k/uL POC Glucose (mg/dL) 132 H 106 H (75-99) mg/dL 06/08/19 06/08/19 06/08/19 Range/Units 11:16 11:41 17:03 WBC (3.8-10.6) k/uL RBC (4.30-5.90) m/uL Hgb (13.0-17.5) gm/dL Hct (39.0-53.0) % Plt Count 29 L (150-450) k/uL Neutrophils # (1.3-7.7) k/uL Lymphocytes # (1.0-4.8) k/uL POC Glucose (mg/dL) 161 H 131 H (75-99) mg/dL Assessment and Plan Assessment: Assessment and Plan 1. Acute myeloid leukemia: - Currently on salvage regimen with Venclexta and Vidaza. He is tolerating treatment well. No evidence of any tumor lysis. Continue treatment per protocol, with tumor lysis precautions. Continue to monitor with physical exam and labs. - Will need evaluation for allogenic stem cell transplant. 2. Pancytopenia: - Due to underlying residual AML, and antineoplastic treatment. Counts continue to be in a safe range. No supportive transfusions required today. Continue to monitor and transfuse as needed - Current platelets 29. Transfuse if hemoglobin less than 7 or platelets less than 10,000.current hemoglobin 11.2. 3. Monitoring for tumor lysis. - Current creatinine is normal. - Check uric acid. 4. Depression, diabetes mellitus , coronary artery disease, obstructive sleep apnea maintained on CPAP, osteoarthritis, bipolar depression. Patient maintained on Depakote 5. Imodium for diarrhea. Thank you for allowing us to participate in the care of your patient. Please feel free to call us with any questions. Geni Irving MD [employer] [employer], [facility] Hematology Oncology [id number], [address] [place] [address] Office: [phone],
[2019-06-08 20:09] LABS: Glucose,Whole Blood 118 mg/dL (75-99)
[2019-06-08] MEDS: METOPROLOL TARTRATE 25 MG TAB PO SCH (21:10)
[2019-06-08] MEDS: VENLAFAXINE HCL ER 150 MG CAP PO SCH (21:10)
[2019-06-08] MEDS: MONTELUKAST 10 MG TAB PO SCH (21:10)
[2019-06-09] MEDS: SODIUM CHLORIDE 0.9% 1,000 ML IV SCH (01:34)
[2019-06-09] MEDS: SALT AND SODA MOUTHWASH 1,000 ML PO SCH ×2 (05:59→12:12)
[2019-06-09 07:07] LABS: Glucose,Whole Blood 111 mg/dL (75-99)
[2019-06-09] MEDS: INSULIN ASPART (NovoLOG) 100 UNIT/ML VIAL SQ SCH ×2 (07:56→12:49)
[2019-06-09] MEDS: DICYCLOMINE 20 MG TAB PO SCH (08:37)
[2019-06-09] MEDS: ACYCLOVIR 200 MG CAP PO SCH (08:37)
[2019-06-09] MEDS: ALLOPURINOL 300 MG TAB PO SCH (08:37)
[2019-06-09] MEDS: DIVALPROEX 500 MG TABLET.DR PO SCH (08:38)
[2019-06-09 09:38] LABS: ALT 37 U/L (4-49); AST 30 U/L (17-59); African American GFR (CKD) >90 (>60 ml/min/1.73 sqM); Albumin 3.8 g/dL (3.5-5.0); Alkaline Phosphatase 73 U/L (38-126); Anion Gap 9 mmol/L; Blood Urea Nitrogen 15 mg/dL (9-20); Calcium 8.9 mg/dL (8.4-10.2); Carbon Dioxide 27 mmol/L (22-30); Chloride 103 mmol/L (98-107); Glucose 138 mg/dL (74-99); LDH 421 U/L (313-618); Non-African American GFR(CKD) >90 (>60 ml/min/1.73 sqM); Potassium 4.3 mmol/L (3.5-5.1); Sodium 139 mmol/L (137-145); Total Bilirubin 0.7 mg/dL (0.2-1.3); Total Protein 6.6 g/dL (6.3-8.2); Uric Acid 1.9 mg/dL (3.5-8.5)
[2019-06-09 09:50] LABS: Basophils % (A) 2 %; Eosinophils # (A) 0.1 k/uL (0-0.7); Eosinophils % (A) 4 %; HCT 30.1 % (39.0-53.0); HGB 10.6 gm/dL (13.0-17.5); Lymphocytes # (A) 0.6 k/uL (1.0-4.8); Lymphocytes % (A) 47 %; MCH 30.4 pg (25.0-35.0); MCHC 35.2 g/dL (31.0-37.0); MCV 86.3 fL (80.0-100.0); Mean Platelet Volume 18.7; Monocytes # (A) 0.1 k/uL (0-1.0); Monocytes % (A) 5 %; Neutrophils # (A) 0.5 k/uL (1.3-7.7); Neutrophils % (A) 40 %; Poikilocytosis Slight; RBC 3.48 m/uL (4.30-5.90); RDW 14.8 % (11.5-15.5)
--- NOTE | 2019-06-09 09:50 | P.DS ---
Providers Date of admission: 06/03/19 08:42 Expected date of discharge: 06/09/19 Attending physician: Guille Rojas Consults: 06/03/19 11:25 Consult Physician Routine Consulting Provider: Veronika Dotson Consult Reason/Comments: medical management Do you want consulting provider notified?: Yes Primary care physician: Guille Rojas - Discharge Diagnosis(es) (1) Acute erythroid leukemia Current Visit: Yes Status: Acute Priority: High (2) Diabetes mellitus type 2, uncontrolled, with complications Current Visit: No Status: Chronic Priority: Medium (3) Hypertension Current Visit: No Status: Chronic Priority: Medium (4) Seizure Current Visit: No Status: Chronic Priority: Medium Hospital Course: Admitted for 7 days of vidaza and venetoclax, high risk for TLS. Pt did well throughout admission, no uncontrolled side effects. He feels ok today, tired, did not sleep well. No fever, oral irritation, sore throat, N,V, cough, SOB, abd discomfort, diarrhea, constipation, swelling, ambulates independently, no uncontrolled pain. Assessment: WDWN, NAD, A&Ox4, normocephalic, atraumatic, anicteric sclera, oral mucosa free of thrush, lesions, BBS CTA, resp effort unlabored, S1S2, no murmur gallop or rub, abd is soft, non-tender, BS +, no swelling in the legs, no gross focal or motor neuro deficits, appropriate mood and affect. Health Concerns: Insomnia-unable to take trazadone as drug/drug interaction with his AEL treatment. Changed to ambien Pertinent Studies: None Procedures: None Patient Condition at Discharge: Stable Plan - Discharge Summary Discharge Rx Participant: No New Discharge Prescriptions: New Zolpidem [Ambien] 5 mg PO HS PRN #30 tab PRN Reason: Insomnia Voriconazole 50 mg PO DAILY #60 tablet Discontinued Atorvastatin [Lipitor] 80 mg PO PC-SUPPER traZODone HCL 150 mg PO HS Fluconazole 200 mg PO DAILY #7 tab No Action Montelukast Sodium [Singulair] 10 mg PO HS Albuterol Inhaler [Ventolin Hfa Inhaler] 2 puff INHALATION RT-Q6H PRN PRN Reason: Shortness Of Breath Venlafaxine HCl [Effexor XR] 150 mg PO HS Fenofibrate Nanocrystallized [Fenofibrate] 145 mg PO PC-SUPPER Beclomethasone Dipropionate [Qvar 80 mcg] 2 puff INHALATION RT-BID Nitroglycerin Sl Tabs [Nitrostat] 0.4 mg SUBLINGUAL Q5M PRN PRN Reason: Chest Pain Dicyclomine [Bentyl] 20 mg PO TID Divalproex [Depakote] 500 mg PO BID tablet. metFORMIN HCL [Glucophage] 500 mg PO PC-SUPPER #0 Acyclovir [Zovirax] 400 mg PO BID Metoprolol Tartrate [Lopressor] 25 mg PO HS Discharge Medication List Montelukast Sodium [Singulair] 10 mg PO HS 06/01/16 [History] Albuterol Inhaler [Ventolin Hfa Inhaler] 2 puff INHALATION RT-Q6H PRN 10/15/17 [History] Beclomethasone Dipropionate [Qvar 80 mcg] 2 puff INHALATION RT-BID 10/15/17 [History] Fenofibrate Nanocrystallized [Fenofibrate] 145 mg PO PC-SUPPER 10/15/17 [History] Venlafaxine HCl [Effexor XR] 150 mg PO HS 10/15/17 [History] Dicyclomine [Bentyl] 20 mg PO TID 01/10/19 [History] Nitroglycerin Sl Tabs [Nitrostat] 0.4 mg SUBLINGUAL Q5M PRN 01/10/19 [History] Divalproex [Depakote] 500 mg PO BID tablet. 01/27/19 [Rx] metFORMIN HCL [Glucophage] 500 mg PO PC-SUPPER #0 02/19/19 [Rx] Acyclovir [Zovirax] 400 mg PO BID 04/02/19 [History] Metoprolol Tartrate [Lopressor] 25 mg PO HS 06/03/19 [History] Voriconazole 50 mg PO DAILY #60 tablet 06/09/19 [Rx] Zolpidem [Ambien] 5 mg PO HS PRN #30 tab 06/09/19 [Rx] Follow up Appointment(s)/Referral(s): Guille Rojas MD [Primary Care Provider] - 06/11/19 1:30 pm (appt is at [facility] office location) Activity/Diet/Wound Care/Special Instructions: Activity encouraged, as tolerated Diet as tolerated Monitor temperature, report >100.4F [place] fluids Take meds as prescribed Follow up appt three times a week Mouth care Discharge Disposition: HOME SELF-CARE Pending Studies Pending Results: none
[2019-06-09 10:20] LABS: Platelet Count 20 k/uL (150-450)
[2019-06-09 11:33] LABS: Glucose,Whole Blood 104 mg/dL (75-99)
--- NOTE | 2019-06-09 12:01 | P.PN ---
Subjective Progress Note Date: 06/09/19 This is a 48-year-old male patient was then admitted under oncology services for inpatient chemotherapy patient has known past medical history of acute erythroid leukemia. Patient received induction therapy January 2019. Patient did have episodes of pancytopenia postchemotherapy requiring hospital admission. Additional medical history includes asthma, cancer, colitis, GERD, GI bleed, hyperlipidemia, hypertension, sleep apnea, neuropathy, diabetes mellitus type 2, bipolar anxiety and depression. Patient underwent bone marrow biopsy and 04/11/2019 showing findings consistent with acute erythroid leukemia. Patient has been admitted for inpatient chemotherapy. Patient denies any other complain ts at this time On 06/04/2019 patient is alert and oriented 3. Patient had first round of chemotherapy. Patient denies any chest pain or shortness breath. Patient denies nausea or vomiting. Patient did have 2 episodes of diarrhea in which he was given Imodium. Patient denies any burning with urination. Patient denies any sores to mouth or body. Patient has been afebrile. Continue to monitor closely On 06/05/2019 patient is alert and oriented 3. Patient completed the lauren chemotherapy. Patient states diarrhea has improved. Patient denies any chest pain or shortness breath. Patient denies nausea vomiting or diarrhea. Patient denies any urinary burning or frequency On 06/06/2019 patient is alert and oriented 3. Patient states he is feeling well today. Patient denies any shortness of breath chest pain. Patient denies nausea vomiting or diarrhea. Patient has remained afebrile. Patient continues received chemotherapy patient. Oncology is following. Patient denies any urinary burning or frequency. On 06/07/2019 patient was seen and examined on the medical floor he is alert and oriented 3 in no apparent distress he is complaining of headache and he is complaining of minimal nasal bleeding otherwise he denies any complaints there is no fever or chills no dizziness no chest pain no shortness of breath no cough no nausea or vomiting no abdominal pain no diarrhea no burning with urination no frequency or urgency and no hematuria. On 06/08/2019 patient was seen and examined on the oncology floor he is doing well and denies any symptoms at this time there is no fever or chills no headache or dizziness no chest pain no shortness of breath no cough no nausea or vomiting no abdominal pain no diarrhea no blood in the stools no burning with urination no frequency or urgency no hematuria he is alert and oriented 3 and has no neurological symptoms On 06/09/2019 patient is alert and oriented 3. Patient has completed chemotherapy round. Patient denies any chest pain or shortness of breath. Patient denies nausea vomiting or diarrhea. Patient denies any urinary burning or frequency. Patient denies any fevers chills and muscle aches. Known neurological symptoms noted. Per neurology services patient to be discharged home today in follow-up outpatient Objective - Vital Signs Vital signs: Vital Signs Temp 98.4 F 06/09/19 04:00 Pulse 79 06/09/19 04:00 Resp 16 06/09/19 04:00 BP 116/74 06/09/19 04:00 Pulse Ox 95 06/09/19 04:00 Intake & Output 06/08/19 06/09/19 06/09/19 18:59 06:59 18:59 Intake Total 1100 1500 Output Total 1 Balance 1100 1499 Weight 91 kg Intake: Intake, IV Titration 1100 1500 Amount Ondansetron 16 mg In 50 Sodium Chloride 0.9% 50 ml @ 232 mls/hr IVPB Q24H TABITHA Rx#:[id number] Sodium Chloride 0.9% 1, 1000 1500 000 ml @ 125 mls/hr IV . Q8H TABITHA Rx#:[id number] azaCITIDine 155 mg In 50 Sodium Chloride 0.9% 50 ml @ 131 mls/hr IV Q24H TABITHA Rx#:[id number] Output: Urine 1 Other: Voiding Method Toilet Toilet Toilet - Exam Head normocephalic Neck supple Lungs clear to auscultation bilaterally no wheezing or crackles Heart regular rate and rhythm S1-S2, no rub or gallop Abdomen is soft nontender nondistended positive bowel sounds no hepatosplenomegaly Extremities no edema Neuro alert and orientated to 3 - Labs CBC & Chem 7: 06/09/19 08:19 06/09/19 08:19 Labs: Abnormal Lab Results - Last 24 Hours (Table) 06/08/19 06/08/19 06/08/19 Range/Units 07:24 11:41 17:03 WBC (3.8-10.6) k/uL RBC (4.30-5.90) m/uL Hgb (13.0-17.5) gm/dL Hct (39.0-53.0) % Plt Count 29 L (150-450) k/uL Neutrophils # 0.8 L (1.3-7.7) k/uL Lymphocytes # 0.8 L (1.0-4.8) k/uL Glucose (74-99) mg/dL POC Glucose (mg/dL) 131 H (75-99) mg/dL Uric Acid (3.5-8.5) mg/dL 06/08/19 06/09/19 06/09/19 Range/Units 20:07 07:01 08:19 WBC 1.2 L* (3.8-10.6) k/uL RBC 3.48 L (4.30-5.90) m/uL Hgb 10.6 L (13.0-17.5) gm/dL Hct 30.1 L (39.0-53.0) % Plt Count 20 L (150-450) k/uL Neutrophils # 0.5 L (1.3-7.7) k/uL Lymphocytes # 0.6 L (1.0-4.8) k/uL Glucose (74-99) mg/dL POC Glucose (mg/dL) 118 H 111 H (75-99) mg/dL Uric Acid (3.5-8.5) mg/dL 06/09/19 06/09/19 Range/Units 08:19 11:32 WBC (3.8-10.6) k/uL RBC (4.30-5.90) m/uL Hgb (13.0-17.5) gm/dL Hct (39.0-53.0) % Plt Count (150-450) k/uL Neutrophils # (1.3-7.7) k/uL Lymphocytes # (1.0-4.8) k/uL Glucose 138 H (74-99) mg/dL POC Glucose (mg/dL) 104 H (75-99) mg/dL Uric Acid 1.9 L (3.5-8.5) mg/dL Assessment and Plan Assessment: 1. Acute erythroid leukemia. Currently on salvage treatment with Venetoclax and Vidaza. Status post induction therapy in January 2019 with no response. Bone marrow biopsy on 04/11/2019 showing acute erythroid leukemia. Patient has been admitted for inpatient chemotherapy. Patient has completed chemotherapy treatment. Plans for discharge per oncology services follow-up outpatient 2. 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 Current platelet level 28,000. 3. History of essential hypertension 4. History of depression 5. History of diabetes mellitus type 2. Home meds resume sliding scale insulin ordered 6. History of coronary artery disease 7. History of obstructive sleep apnea maintained on CPAP 8. History of osteoarthritis 9. History of bipolar depression. Patient maintained on Depakote 10. Mild diarrhea. Patient was given Imodium symptoms resolve we'll continue to monitor I performed an examination of the patient and discussed their management with the Nurse Practitioner. I have reviewed the Nurse Practitioner's notes and agree with the documented findings and plan of care
[2019-06-09] MEDS: VORICONAZOLE 50 MG PO SCH (12:12)
[2019-06-09 12:28] VITALS: BP 115/70; PULSE 81; RESP 18; TEMP 97.5
[2019-06-09] MEDS: ONDANSETRON 16 MG in SODIUM CHLORIDE 0.9% 50 ML IVPB SCH (13:56)
[2019-06-09] MEDS: AZACITIDINE IV SCH (14:48)
[2019-06-09] MEDS: SODIUM CHLORIDE 0.9% IV SCH (14:48)
--- NOTE | 2019-06-10 13:12 | CDI ---
Documentation Clarification Form Date: 06/10/19 From: Geraldine Santiago Phone: If you have a question about this query, please contact Bernarda Lubin, Collar Setter at [phone] between 8am and 5pm. Admit Date: 06/03/19 Discharge Date: 06/09/19 Patient Name: Fransisco Burnham Visit Number: [id number] ATTENTION: The Clinical Documentation Specialists (CDI) and [facility] Coding Staff appreciate your assistance in clarifying documentation. Please respond to the clarification below the line at the bottom and electronically sign. The CDI & [facility] Coding staff will review the response and follow-up if needed. Please note: Queries are made part of the Legal Health Record. If you have any questions, please contact the author of this message via ITS. Dear Dr. Guille Rojas, The patient has uncontrolled Type 2 diabetes, as indicated in H&P, 06/05 progress note & DS. History/Risk Factors: acute erythroid leukemia undergoing chemotherapy, pancytopenia, bipolar, Type 2 DM w neuropathy, GERD, seizures, hyperlipidemia POC Glucose: 262, 104, 185, 123, 170, 95, 157, 114, 115, 136, 113, 114, 118, 100, 139, 109, 116, 109,132, 106, 161, 131,118, 111, 104 Glucose: 273, 168, 104, 128, 117, 124, 107, 108, 98, 138 Treatment: Insulin NovoLOG Sliding Scale Protocol Per [facility] 2016 - query the provider for clarification whether the patient has hyperglycemia or hypoglycemia so that the appropriate code may be reported - uncontrolled diabetes indicates that the patient's blood sugar is not at an acceptable level, because it is either too high or too low. In order to capture the severity of Illness and necessary documentation specificity, please clarify if Type 2 uncontrolled diabetes is: Hyperglycemia Other, please specify Unable to Determine Please continue to document in your progress notes and discharge summary in order to capture severity of illness and risk of mortality. Include clinical findings that support your diagnosis. Hyperglycemia MTDD
[2019-06-11 16:24] LABS: WBC 1.2 k/uL (3.8-10.6)
== END 2019-06-09 16:25 | disposition home or self-care (01) | DRG 838 ==
LOC: 5NMEDONC 08:42
PROVIDERS: ADMIT Internal Medicine Hematology & Oncology; ATTEND Internal Medicine Hematology & Oncology
DX: Z51.11 Encounter for antineoplastic chemotherapy (principal); C94.00 Acute erythroid leukemia, not having achieved remission; D61.818 Other pancytopenia; F31.30 Bipolar disorder, current episode depressed, mild or moderate severity, unspecified; E11.40 Type 2 diabetes mellitus with diabetic neuropathy, unspecified; R56.9 Unspecified convulsions; E11.65 Type 2 diabetes mellitus with hyperglycemia; K21.9 Gastro-esophageal reflux disease without esophagitis; E78.5 Hyperlipidemia, unspecified; I10 Essential (primary) hypertension; G47.33 Obstructive sleep apnea (adult) (pediatric); F41.9 Anxiety disorder, unspecified; I25.2 Old myocardial infarction; J45.909 Unspecified asthma, uncomplicated; G47.00 Insomnia, unspecified; I25.10 Atherosclerotic heart disease of native coronary artery without angina pectoris; M54.5 Low back pain; M19.90 Unspecified osteoarthritis, unspecified site; F17.200 Nicotine dependence, unspecified, uncomplicated; Z79.84 Long term (current) use of oral hypoglycemic drugs; Z79.51 Long term (current) use of inhaled steroids; Z79.899 Other long term (current) drug therapy; Z87.442 Personal history of urinary calculi; Z92.21 Personal history of antineoplastic chemotherapy; Z95.5 Presence of coronary angioplasty implant and graft; Z96.651 Presence of right artificial knee joint; Z98.890 Other specified postprocedural states; Z99.89 Dependence on other enabling machines and devices; Z82.49 Family history of ischemic heart disease and other diseases of the circulatory system; Z83.2 Family history of diseases of the blood and blood-forming organs and certain disorders involving the immune mechanism; Z83.3 Family history of diabetes mellitus; Z80.1 Family history of malignant neoplasm of trachea, bronchus and lung; Z83.49 Family history of other endocrine, nutritional and metabolic diseases; Z80.3 Family history of malignant neoplasm of breast; Z83.79 Family history of other diseases of the digestive system; Z81.8 Family history of other mental and behavioral disorders; Z82.5 Family history of asthma and other chronic lower respiratory diseases
CPT/HCPCS: 80053; 83615; 83735; 84100; 84550; 85025; 85049

== ENCOUNTER 2019-06-19 20:20 | Inpatient (IN) | payer MEDICARE, OTHER ==
[2019-06-19] MEDS ORDERED: ACETAMINOPHEN TAB 500 MG TAB PO STA (20:41)
[2019-06-19] MEDS ORDERED: SODIUM CHLORIDE 0.9% 1,000 ML IV STA (20:41)
--- NOTE | 2019-06-19 20:42 | ED ---
Fever HPI - General Chief Complaint: Fever Stated Complaint: fever Time Seen by Provider: 06/19/19 20:38 Source: patient, RN notes reviewed, old records reviewed Mode of arrival: ambulatory Limitations: no limitations - History of Present Illness Initial Comments: This is a 48-year-old male who presents today for evaluation regards to fever patient is currently on chemotherapy at home chemotherapy and has had low blood counts. Patient is to fever today increasing fever throughout the day with the 100 to denying any other complaints no rashes no cough congestion abdominal pain no nausea vomiting or diarrhea. Patient is multiple prior hospitalizations for similar MD Complaint: fever, malaise, weakness -: days(s) Temperature Source: subjective, oral Context: on chemotherapy Associated Symptoms: chills, myalgias, nausea, diarrhea Treatments Prior to Arrival: none - Related Data Home Medications Medication Instructions Recorded Confirmed Montelukast Sodium [Singulair] 10 mg PO HS 06/01/16 06/03/19 Albuterol Inhaler [Ventolin Hfa 2 puff INHALATION RT-Q6H PRN 10/15/17 06/03/19 Inhaler] Beclomethasone Dipropionate [Qvar 2 puff INHALATION RT-BID 10/15/17 06/03/19 80 mcg] Fenofibrate Nanocrystallized 145 mg PO PC-SUPPER 10/15/17 06/03/19 [Fenofibrate] Venlafaxine HCl [Effexor XR] 150 mg PO HS 10/15/17 06/03/19 Dicyclomine [Bentyl] 20 mg PO TID 01/10/19 06/03/19 Nitroglycerin Sl Tabs [Nitrostat] 0.4 mg SUBLINGUAL Q5M PRN 01/10/19 06/03/19 Acyclovir [Zovirax] 400 mg PO BID 04/02/19 06/03/19 Metoprolol Tartrate [Lopressor] 25 mg PO HS 06/03/19 06/03/19 Previous Rx's Medication Instructions Recorded Divalproex [Depakote] 500 mg PO BID tablet. 01/27/19 metFORMIN HCL [Glucophage] 500 mg PO PC-SUPPER #0 02/19/19 Voriconazole 50 mg PO DAILY #60 tablet 06/09/19 Zolpidem [Ambien] 5 mg PO HS PRN #30 tab 06/09/19 Allergies Allergy/AdvReac Type Severity Reaction Status Date / Time naproxen [From Naprosyn] Allergy Unknown Rash/Hives Verified 06/19/19 22:09 adhesive tape Allergy Rash/Hives Verified 06/19/19 22:09 ibuprofen Allergy Itching Verified 06/19/19 22:09 mold Allergy Unknown Verified 06/19/19 22:09 vancomycin Allergy Rash/Hives Verified 06/19/19 22:09 carrot AdvReac Dyspnea Verified 06/19/19 22:09 chocolate flavor AdvReac Dyspnea Verified 06/19/19 22:09 grass pollen-perennial rye, AdvReac Dyspnea Verified 06/19/19 22:09 standar Review of Systems ROS Statement: Those systems with pertinent positive or pertinent negative responses have been documented in the HPI. ROS Other: All systems not noted in ROS Statement are negative. Past Medical History Past Medical History: Asthma, Cancer, Chest Pain / Angina, Diabetes Mellitus, GERD/Reflux, GI Bleed, Hyperlipidemia, Hypertension, Myocardial Infarction ([place]), Musculoskeletal Disorder, Osteoarthritis (OA), Sleep Apnea/CPAP/BIPAP Additional Past Medical History / Comment(s): Recent left lower abdominal pain/left urethral stone/pancytopenia. NIDDM type II, neuropathy bilateral hands/feet, colitis, hx lower GI bleed, CPAP use, chronic cervical/lumbar pain- has neurostimulator to both sites, bilateral carpal tunnel syndrome, occasional tinnitis, "soft" cardiac murmur. Last Myocardial Infarction Date:: 2004 History of Any Multi-Drug Resistant Organisms: None Reported Past Surgical History: Heart Catheterization With Stent, Hernia Repair, Joint Replacement Additional Past Surgical History / Comment(s): Bone marrow aspiration/biopsy, right knee arthroscopy X3, right total knee replacement with revision, left knee arthroscopy, cardiac stent X1, stent placed for kidney stone and then removed, COLONOSCOPY, cervical and lumbar neurostimulator implants, left inguinal hernia repair. Past Anesthesia/Blood Transfusion Reactions: No Reported Reaction Date of Last Stent Placement:: 2004 Past Psychological History: Anxiety, Bipolar, Depression Smoking Status: Current every day smoker Past Alcohol Use History: None Reported Past Drug Use History: None Reported - Past Family History Father Family Medical History: Congestive Heart Failure (CHF), Deep Vein Thrombosis (DVT), Myocardial Infarction ([place]), Pulmonary Embolus Additional Family Medical History / Comment(s): MA at age 38. "hole in colon". Mother Family Medical History: Cancer, COPD, Diabetes Mellitus, Hyperlipidemia Additional Family Medical History / Comment(s): Mother had breast and lung cancer. She of lung cancer in her 60s. Sister(s) Family Medical History: Diabetes Mellitus, Liver Disease Additional Family Medical History / Comment(s): Bi-polar, anxiety, hysterectomy, fatty liver. Brother(s) History Unknown: Yes General Exam Limitations: no limitations General appearance: alert, in no apparent distress Head exam: Present: atraumatic, normocephalic, normal inspection Eye exam: Present: normal appearance, PERRL, EOMI. Absent: scleral icterus, conjunctival injection, periorbital swelling ENT exam: Present: normal exam, mucous membranes dry Neck exam: Present: normal inspection. Absent: tenderness, meningismus, lymphadenopathy Respiratory exam: Present: normal lung sounds bilaterally. Absent: respiratory distress, wheezes, rales, rhonchi, stridor Cardiovascular Exam: Present: normal rhythm, tachycardia, normal heart sounds. Absent: systolic murmur, diastolic murmur, rubs, gallop, clicks GI/Abdominal exam: Present: soft, normal bowel sounds. Absent: distended, tenderness, guarding, rebound, rigid Extremities exam: Present: normal inspection, full ROM, normal capillary refill. Absent: tenderness, pedal edema, joint swelling, calf tenderness Back exam: Present: normal inspection Neurological exam: Present: alert, oriented X3, CN II-XII intact Psychiatric exam: Present: normal affect, normal mood Skin exam: Present: warm, dry, intact, normal color. Absent: rash Course Vital Signs 06/19/19 20:24 Temperature 102.0 F H Pulse Rate 112 H Respiratory 22 Rate Blood Pressure 137/75 O2 Sat by Pulse 99 Oximetry - Reevaluation(s) Reevaluation #1: 06/19/19 21:56 Medical record is reviewed Reevaluation #2: 06/19/19 21:56 Patient feeling better with symptomatic treatment here in the ER - Consultations Consultation #1: Spoke with Dr. Dotson who is agreeable for admission Medical Decision Making - Medical Decision Making 48 male the ER for evaluation of fever patient will be admitted for treatment and evaluation of neutropenic fever - Lab Data Result diagrams: 06/19/19 21:00 06/19/19 21:00 Lab Results 06/19/19 06/19/19 06/19/19 Range/Units 20:28 21:00 21:00 RBC 2.97 L (4.30-5.90) m/uL Hgb 8.8 L D (13.0-17.5) gm/dL Hct 24.9 L (39.0-53.0) % MCV 83.9 (80.0-100.0) fL MCH 29.7 (25.0-35.0) pg MCHC 35.4 (31.0-37.0) g/dL RDW 15.5 (11.5-15.5) % Hyperchromasia Slight Poikilocytosis Moderate Sodium 140 (137-145) mmol/L Potassium 3.5 (3.5-5.1) mmol/L Chloride 106 (98-107) mmol/L Carbon Dioxide 23 (22-30) mmol/L Anion Gap 11 mmol/L BUN 8 L (9-20) mg/dL Creatinine 0.58 L (0.66-1.25) mg/dL Est GFR (CKD-EPI)AfAm >90 (>60 ml/min/1.73 sqM) Est GFR (CKD-EPI)NonAf >90 (>60 ml/min/1.73 sqM) Glucose 149 H (74-99) mg/dL Plasma Lactic Acid Cory (0.7-2.0) mmol/L Calcium 9.3 (8.4-10.2) mg/dL Phosphorus 3.2 (2.5-4.5) mg/dL Magnesium 1.9 (1.6-2.3) mg/dL Total Bilirubin 0.8 (0.2-1.3) mg/dL AST 33 (17-59) U/L ALT 47 (4-49) U/L Alkaline Phosphatase 82 (38-126) U/L Total Protein 6.8 (6.3-8.2) g/dL Albumin 4.2 (3.5-5.0) g/dL Urine Color Urine Appearance (Clear) Urine pH (5.0-8.0) Ur Specific [place] (1.001-1.035) Urine Protein (Negative) Urine Glucose (UA) (Negative) Urine Ketones (Negative) Urine Blood (Negative) Urine Nitrite (Negative) Urine Bilirubin (Negative) Urine Urobilinogen (<2.0) mg/dL Ur Leukocyte Esterase (Negative) Influenza Type A RNA Not Detected (Not Detectd) Influenza Type B (PCR) Not Detected (Not Detectd) 06/19/19 06/19/19 Range/Units 21:00 21:07 RBC (4.30-5.90) m/uL Hgb (13.0-17.5) gm/dL Hct (39.0-53.0) % MCV (80.0-100.0) fL MCH (25.0-35.0) pg MCHC (31.0-37.0) g/dL RDW (11.5-15.5) % Hyperchromasia Poikilocytosis Sodium (137-145) mmol/L Potassium (3.5-5.1) mmol/L Chloride (98-107) mmol/L Carbon Dioxide (22-30) mmol/L Anion Gap mmol/L BUN (9-20) mg/dL Creatinine (0.66-1.25) mg/dL Est GFR (CKD-EPI)AfAm (>60 ml/min/1.73 sqM) Est GFR (CKD-EPI)NonAf (>60 ml/min/1.73 sqM) Glucose (74-99) mg/dL Plasma Lactic Acid Cory 2.4 H* (0.7-2.0) mmol/L Calcium (8.4-10.2) mg/dL Phosphorus (2.5-4.5) mg/dL Magnesium (1.6-2.3) mg/dL Total Bilirubin (0.2-1.3) mg/dL AST (17-59) U/L ALT (4-49) U/L Alkaline Phosphatase (38-126) U/L Total Protein (6.3-8.2) g/dL Albumin (3.5-5.0) g/dL Urine Color Yellow Urine Appearance Clear (Clear) Urine pH 5.5 (5.0-8.0) Ur Specific [place] 1.024 (1.001-1.035) Urine Protein Negative (Negative) Urine Glucose (UA) Negative (Negative) Urine Ketones Trace H (Negative) Urine Blood Negative (Negative) Urine Nitrite Negative (Negative) Urine Bilirubin Negative (Negative) Urine Urobilinogen 4.0 (<2.0) mg/dL Ur Leukocyte Esterase Negative (Negative) Influenza Type A RNA (Not Detectd) Influenza Type B (PCR) (Not Detectd) - Radiology Data Radiology results: report reviewed (Chest x-ray is negative for acute disease), image reviewed Disposition Clinical Impression: Fever, Dizziness, Neutropenia Disposition: ADMITTED IP TO THIS HOSP Condition: Fair Is patient prescribed a controlled substance at d/c from ED?: No
[2019-06-19 21:22] LABS: HCT 24.9 % (39.0-53.0); Hyperchromasia Slight; MCH 29.7 pg (25.0-35.0); MCHC 35.4 g/dL (31.0-37.0); MCV 83.9 fL (80.0-100.0); Poikilocytosis Moderate; RBC 2.97 m/uL (4.30-5.90); RDW 15.5 % (11.5-15.5)
[2019-06-19 21:23] LABS: Appearance,Urine Clear (Clear); Bilirubin,Urine Negative (Negative); Blood,Urine Negative (Negative); Color,Urine Yellow; Glucose,Urine (UA) Negative (Negative); Ketones,Urine Trace (Negative); Leukocyte Esterase,Urine Negative (Negative); Nitrite,Urine Negative (Negative); PH, Urine 5.5 (5.0-8.0); Protein,Urine Negative (Negative); Specific Gravity,Urine 1.024 (1.001-1.035)
[2019-06-19 21:32] LABS: ALT 47 U/L (4-49); AST 33 U/L (17-59); African American GFR (CKD) >90 (>60 ml/min/1.73 sqM); Albumin 4.2 g/dL (3.5-5.0); Alkaline Phosphatase 82 U/L (38-126); Anion Gap 11 mmol/L; Blood Urea Nitrogen 8 mg/dL (9-20); Calcium 9.3 mg/dL (8.4-10.2); Carbon Dioxide 23 mmol/L (22-30); Chloride 106 mmol/L (98-107); Glucose 149 mg/dL (74-99); Magnesium 1.9 mg/dL (1.6-2.3); Non-African American GFR(CKD) >90 (>60 ml/min/1.73 sqM); Phosphorus 3.2 mg/dL (2.5-4.5); Potassium 3.5 mmol/L (3.5-5.1); Sodium 140 mmol/L (137-145); Total Bilirubin 0.8 mg/dL (0.2-1.3); Total Protein 6.8 g/dL (6.3-8.2)
--- NOTE | 2019-06-19 21:54 | XR ---
EXAMINATION: XR chest 2V DATE AND TIME: 06/19/2019 9:29 PM CLINICAL INDICATION: PHH; sob TECHNIQUE: Departmental protocol COMPARISON: 05/23/2019 FINDINGS: The lungs are clear. The pleural spaces are negative. The cardiac silhouette is not enlarged. The remainder of the mediastinal silhouette is unremarkable. The skeletal structures and soft tissues are negative for acute findings. IMPRESSION: NO ACUTE PROCESS.
[2019-06-19] MEDS ORDERED: PIPERACILLIN-TAZOBACTAM 3.375 GM in SODIUM CHLORIDE 0.9% 100 ML IVPB STA (21:57)
[2019-06-19 22:00] LABS: WBC 0.6 k/uL (3.8-10.6)
[2019-06-19 22:14] LABS: Platelet Count 10 k/uL (150-450)
[2019-06-19 22:40] LABS: HGB 8.8 gm/dL (13.0-17.5)
[2019-06-19] MEDS: SODIUM CHLORIDE 0.9% 500 ML 500 ML IV SCH ×2 (23:10→23:50)
[2019-06-20] MEDS: SODIUM CHLORIDE 0.9% 500 ML 500 ML IV SCH (00:19)
[2019-06-20] MEDS: SODIUM CHLORIDE 0.9% 1,000 ML IV SCH ×4 (01:28→23:34)
[2019-06-20] MEDS: DAPTOmycin 500 MG in SODIUM CHLORIDE 0.9% 50 ML IVPB SCH ×2 (01:29→23:30)
[2019-06-20 07:25] LABS: Glucose,Whole Blood 126 mg/dL (75-99)
[2019-06-20] MEDS ORDERED: ALBUTEROL NEBULIZED 2.5 MG/3 ML INHALATION PRN (08:14)
[2019-06-20] MEDS: PIPERACILLIN-TAZOBACTAM 3.375 GM in SODIUM CHLORIDE 0.9% 100 ML IVPB SCH ×2 (08:39→17:52)
[2019-06-20] MEDS: ACYCLOVIR 200 MG CAP PO SCH ×2 (08:40→20:52)
[2019-06-20] MEDS: DIVALPROEX 500 MG TABLET.DR PO SCH ×2 (08:40→20:52)
[2019-06-20] MEDS ORDERED: ENOXAPARIN 40 MG/0.4 ML SYRINGE SQ SCH (09:00)
[2019-06-20] MEDS ORDERED: PANTOPRAZOLE 40 MG/10 ML VIAL IV SCH (09:00)
[2019-06-20 09:57] LABS: HCT 22.1 % (39.0-53.0); HGB 7.9 gm/dL (13.0-17.5); MCH 30.3 pg (25.0-35.0); MCHC 35.6 g/dL (31.0-37.0); Mean Platelet Volume 8.8; Poikilocytosis Moderate; RDW 15.1 % (11.5-15.5)
[2019-06-20] MEDS: ACETAMINOPHEN TAB 325 MG TAB PO PRN ×2 (10:02→18:00)
--- NOTE | 2019-06-20 10:04 | P.HPIM ---
History of Present Illness H&P Date: 06/20/19 Chief Complaint: Fever This is a 48-year-old male patient who presented with complaints of fever. Patient has been on chemotherapy for acute erythroid leukemia. Patient was recently admitted for inpatient chemotherapy and discharged on 06/09/2019. Patient reports that the fever started last night he presented to the ER. Patient does report occasional diarrhea. Patient also reports that he had a bloody bowel movement yesterday. Patient denies any headaches body aches nausea or vomiting. Patient denies any acute respiratory symptoms. Patient denies shortness of breath or chest discomfort. Additional medical history includes acute erythroid leukemia, diabetes mellitus type 2, hypertension, seizure anxiety depression and bipolar. EKG completed showing normal sinus rhythm. Normal EKG. Chest x-ray completed showing no acute process. Influenza negative. White blood cell is 0.6, platelets 10.0 lactic acid initially elevated troponin for repeat lactic 1.5. UA negative. Patient started on daptomycin and IV Zosyn. Infectious disease and oncology service is consulted. Stool for occult blood will be ordered. Hemoglobin currently stable at 8.8 Review of Systems please refer to HPI otherwise unremarkable Past Medical History Past Medical History: Asthma, Cancer, Chest Pain / Angina, Diabetes Mellitus, GERD/Reflux, GI Bleed, Hyperlipidemia, Hypertension, Myocardial Infarction ([place]), Musculoskeletal Disorder, Osteoarthritis (OA), Sleep Apnea/CPAP/BIPAP Additional Past Medical History / Comment(s): Recent left lower abdominal pain/left urethral stone/pancytopenia. NIDDM type II, neuropathy bilateral hands/feet, colitis, hx lower GI bleed, CPAP use, chronic cervical/lumbar pain- has neurostimulator to both sites, bilateral carpal tunnel syndrome, occasional tinnitis, "soft" cardiac murmur. Last Myocardial Infarction Date:: 2004 History of Any Multi-Drug Resistant Organisms: None Reported Past Surgical History: Heart Catheterization With Stent, Hernia Repair, Joint Replacement Additional Past Surgical History / Comment(s): Bone marrow aspiration/biopsy, right knee arthroscopy X3, right total knee replacement with revision, left knee arthroscopy, cardiac stent X1, stent placed for kidney stone and then removed, COLONOSCOPY, cervical and lumbar neurostimulator implants, left inguinal hernia repair. Past Anesthesia/Blood Transfusion Reactions: No Reported Reaction Date of Last Stent Placement:: 2004 Past Psychological History: Anxiety, Bipolar, Depression Additional Psychological History / Comment(s): and lives with the and child. Medically disabled with neuropathy and bipolar disorder. No experience. International travel. 2 petCats in the home instructed not to change the box Smoking Status: Current some day smoker Past Alcohol Use History: None Reported Additional Past Alcohol Use History / Comment(s): STARTED SMOKING AT AGE 23([phone]), Past Drug Use History: None Reported - Past Family History Father Family Medical History: Congestive Heart Failure (CHF), Deep Vein Thrombosis (DVT), Myocardial Infarction ([place]), Pulmonary Embolus Additional Family Medical History / Comment(s): [place] at age 38. "hole in colon". Mother Family Medical History: Cancer, COPD, Diabetes Mellitus, Hyperlipidemia Additional Family Medical History / Comment(s): Mother had breast and lung cance r. She of lung cancer in her 60s. Sister(s) Family Medical History: Diabetes Mellitus, Liver Disease Additional Family Medical History / Comment(s): Bi-polar, anxiety, hysterectomy, fatty liver. Brother(s) History Unknown: Yes Medications and Allergies Home Medications Medication Instructions Recorded Confirmed Type Montelukast Sodium [Singulair] 10 mg PO HS 06/01/16 06/19/19 History Albuterol Inhaler [Ventolin Hfa 2 puff INHALATION RT-Q6H PRN 10/15/17 06/19/19 History Inhaler] Beclomethasone Dipropionate [Qvar 2 puff INHALATION RT-BID 10/15/17 06/19/19 History 80 mcg] Fenofibrate Nanocrystallized 145 mg PO PC-SUPPER 10/15/17 06/19/19 History [Fenofibrate] Venlafaxine HCl [Effexor XR] 150 mg PO HS 10/15/17 06/19/19 History Nitroglycerin Sl Tabs [Nitrostat] 0.4 mg SUBLINGUAL Q5M PRN 01/10/19 06/19/19 History Divalproex [Depakote] 500 mg PO BID tablet. 01/27/19 06/19/19 Rx metFORMIN HCL [Glucophage] 500 mg PO PC-SUPPER #0 02/19/19 06/19/19 Rx Acyclovir [Zovirax] 400 mg PO BID 04/02/19 06/19/19 History Metoprolol Tartrate [Lopressor] 25 mg PO HS 06/03/19 06/19/19 History Zolpidem [Ambien] 5 mg PO HS PRN #30 tab 06/09/19 06/19/19 Rx Venetoclax [Venclexta] 400 mg PO DAILY@1630 06/19/19 06/19/19 History Voriconazole 100 mg PO DAILY@1130 06/19/19 06/19/19 History Allergies Allergy/AdvReac Type Severity Reaction Status Date / Time naproxen [From Naprosyn] Allergy Unknown Rash/Hives Verified 06/19/19 22:09 adhesive tape Allergy Rash/Hives Verified 06/19/19 22:09 ibuprofen Allergy Itching Verified 06/19/19 22:09 mold Allergy Unknown Verified 06/19/19 22:09 vancomycin Allergy Rash/Hives Verified 06/19/19 22:09 carrot AdvReac Dyspnea Verified 06/19/19 22:09 chocolate flavor AdvReac Dyspnea Verified 06/19/19 22:09 grass pollen-perennial rye, AdvReac Dyspnea Verified 06/19/19 22:09 standar Physical Exam Vitals: Vital Signs Temp Pulse Pulse Resp BP BP Pulse Ox 06/20/19 05:22 98.1 F 94 16 119/61 99 06/20/19 00:02 98.0 F 94 18 124/60 98 06/19/19 23:11 98.6 F 56 L 16 129/87 99 06/19/19 20:24 102.0 F H 112 H 22 137/75 99 Intake and Output 06/19/19 06/20/19 06/20/19 22:59 06:59 14:59 Intake Total 2069 Balance 2069 Intake: Intake, IV Titration 2069 Amount DAPTOmycin 500 mg In 50 Sodium Chloride 0.9% 50 ml @ 100 mls/hr IVPB Q24H [facility] Rx#:[id number] Sodium Chloride 0.9% 1, 520 000 ml @ 130 mls/hr IV . [id number] [facility] Rx#:[id number] Sodium Chloride 0.9% 500 1500 ml 500 ml @ 1000 mls/hr IV Q35M [facility] Rx#:[id number] Other: Voiding Method Toilet Urinal # Voids 1 Weight 205.1 kg 98 kg Head normocephalic Neck supple Lungs clear to auscultation bilaterally no wheezing or crackles Heart regular rate and rhythm S1-S2, no rub or gallop Abdomen is soft nontender nondistended positive bowel sounds no hepatosplenomegaly Extremities no edema Neuro alert and orientated to 3 Results CBC & Chem 7: 06/19/19 21:00 06/19/19 21:00 Labs: Abnormal Lab Results - Last 24 Hours (Table) 06/19/19 06/19/19 06/19/19 Range/Units 21:00 21:00 21:00 WBC 0.6 L* (3.8-10.6) k/uL RBC 2.97 L (4.30-5.90) m/uL Hgb 8.8 L D (13.0-17.5) gm/dL Hct 24.9 L (39.0-53.0) % Plt Count 10 L* (150-450) k/uL BUN 8 L (9-20) mg/dL Creatinine 0.58 L (0.66-1.25) mg/dL Glucose 149 H (74-99) mg/dL POC Glucose (mg/dL) (75-99) mg/dL Plasma Lactic Acid Cory 2.4 H* (0.7-2.0) mmol/L Urine Ketones (Negative) 06/19/19 06/20/19 Range/Units 21:07 06:58 WBC (3.8-10.6) k/uL RBC (4.30-5.90) m/uL Hgb (13.0-17.5) gm/dL Hct (39.0-53.0) % Plt Count (150-450) k/uL BUN (9-20) mg/dL Creatinine (0.66-1.25) mg/dL Glucose (74-99) mg/dL POC Glucose (mg/dL) 126 H (75-99) mg/dL Plasma Lactic Acid Cory (0.7-2.0) mmol/L Urine Ketones Trace H (Negative) Thrombosis Risk Factor Assmnt - Choose All That Apply Any of the Below Risk Factors Present?: Yes Each Factor Represents 1 point: Age 41-60 years, Obesity (BMI >25) Other Risk Factors: Yes Each Risk Factor Represents 2 Points: Malignancy Other congenital or acquired thrombophilia - If yes, enter type in comment: No Thrombosis Risk Factor Assessment Total Risk Factor Score: 4 Thrombosis Risk Factor Assessment Level: Moderate Risk Assessment and Plan Assessment: 1. Febrile illness with elevated lactic acid. Patient has been receiving chemotherapy pancytopenia secondary to chemotherapy will consult infectious disease. Chest x-ray negative. Influenza negative. UA negative. Blood cultures have been ordered. Lactic acid has improved to 1.5 patient currently on daptomycin and Zosyn 2. Acute erythroid leukemia. Patient recently completed inpatient chemotherapy and discharged on 06/09/2019. Oncology services have been consulted 3. Possible GI bleed. Platelet with 10. Stool for occult blood has been ordered. Hemoglobin stable at 8.8 4. Diabetes mellitus type 2. Metformin on hold sliding scale insulin ordered 5. Essential hypertension. Home meds resumed 6. History of bipolar depression. Home meds resumed 7. History of seizures. 8. Pancytopenia secondary to chemotherapy DVT prophylaxis SCDs. GI prophylaxis Pepcid Oncology and infectious disease consulted Patient on daptomycin and Zosyn for IV antibiotics Stool for occult blood ordered blood Culture ordered Time with Patient: Greater than 30 (Greater than 60% of the total time spent in counseling and coordination of care. I performed an examination of the patient and discussed their management with the Nurse Practitioner. I have reviewed the Nurse Practitioner's notes and agree with the documented findings and plan of care)
[2019-06-20 10:08] LABS: ALT 43 U/L (4-49); AST 28 U/L (17-59); African American GFR (CKD) >90 (>60 ml/min/1.73 sqM); Albumin 3.6 g/dL (3.5-5.0); Alkaline Phosphatase 72 U/L (38-126); Anion Gap 8 mmol/L; Blood Urea Nitrogen 7 mg/dL (9-20); Calcium 8.8 mg/dL (8.4-10.2); Carbon Dioxide 25 mmol/L (22-30); Chloride 108 mmol/L (98-107); Glucose 136 mg/dL (74-99); Non-African American GFR(CKD) >90 (>60 ml/min/1.73 sqM); Sodium 141 mmol/L (137-145); Total Bilirubin 0.5 mg/dL (0.2-1.3); Total Protein 6.1 g/dL (6.3-8.2)
[2019-06-20 10:32] LABS: WBC 0.5 k/uL (3.8-10.6)
[2019-06-20 10:33] LABS: Platelet Count 10 k/uL (150-450)
[2019-06-20 11:01] LABS: Glucose,Whole Blood 107 mg/dL (75-99)
[2019-06-20] MEDS: VORICONAZOLE 200 MG TAB PO SCH (12:41)
[2019-06-20] MEDS: INSULIN ASPART (NovoLOG) 100 UNIT/ML VIAL SQ SCH ×3 (12:42→20:58)
--- NOTE | 2019-06-20 17:02 | P.CONS ---
History of Present Illness - Reason for Consult Consult date: 06/20/19 fever, on Tx Requesting physician: Sami Lucio - Chief Complaint fever - History of Present Illness Mister Durant is a very pleasant 48-year-old male patient of Dr. Saleh with a history of pancytopenia first noted 02/13. Thought initially that it this was due to marrow suppressing medications. His drugs doses were adjusted and patient was provided with rescue leucovorin but, counts did not improve. Pt had a repeat admission in late 02/13 with persistently low counts and abdominal pain. Bone marrow biopsy on 02/19/19 was performed by IR as it had to be done under guidance as the patient has bilateral spinal cord centimeters over each and iliac crests. Path showed increase in erythroid elements with pronormoblast greater than 50%, consistent with acute erythroid leukemia. He had induction with the 7+ 3 regimen from 03/03-03/10/19. Post induction was complicated by an admission for febrile neutropenia. He had repeat bone marrow post count recovery, showing 1-2 % blasts, but persistence of about 90% erythroid elements, 70-80% of the early phase type. Was seen at [facility], and was felt to have failed induction, though surprisingly, his counts had shown marked improvement. He was recommended treatment with Venetoclax/Vidaza preparatory to allo BMT, he is in week 4 of cycle 1. Patient states fever at home, he did that he needed to come in to the hospital immediately for the same. Patient's MAXIMUM TEMPERATURE was 102 Fahrenheit. P atient denies any specific symptoms, denies oral irritation, earache, sore throat, productive cough, chest pain, nausea, vomiting, abdominal pain or cramping, constipation, diarrhea, only mild weakness, no uncontrolled pain Review of Systems 14 point review of systems is negative except as stated in HPI Past Medical History Past Medical History: Asthma, Cancer, Chest Pain / Angina, Diabetes Mellitus, GERD/Reflux, GI Bleed, Hyperlipidemia, Hypertension, Myocardial Infarction ([place]), Musculoskeletal Disorder, Osteoarthritis (OA), Sleep Apnea/CPAP/BIPAP Additional Past Medical History / Comment(s): Recent left lower abdominal pain/left urethral stone/pancytopenia. NIDDM type II, neuropathy bilateral mckeon nds/feet, colitis, hx lower GI bleed, CPAP use, chronic cervical/lumbar pain-has neurostimulator to both sites, bilateral carpal tunnel syndrome, occasional tinnitis, "soft" cardiac murmur. Last Myocardial Infarction Date:: 2004 History of Any Multi-Drug Resistant Organisms: None Reported Past Surgical History: Heart Catheterization With Stent, Hernia Repair, Joint Replacement Additional Past Surgical History / Comment(s): Bone marrow aspiration/biopsy, right knee arthroscopy X3, right total knee replacement with revision, left knee arthroscopy, cardiac stent X1, stent placed for kidney stone and then removed, COLONOSCOPY, cervical and lumbar neurostimulator implants, left inguinal hernia repair. Past Anesthesia/Blood Transfusion Reactions: No Reported Reaction Date of Last Stent Placement:: 2004 Past Psychological History: Anxiety, Bipolar, Depression Additional Psychological History / Comment(s): and lives with the and child. Medically disabled with neuropathy and bipolar disorder. No experience. International travel. 2 petCats in the home instructed not to change the box Smoking Status: Current some day smoker Past Alcohol Use History: None Reported Additional Past Alcohol Use History / Comment(s): STARTED SMOKING AT AGE 23(1994), Past Drug Use History: None Reported - Past Family History Father Family Medical History: Congestive Heart Failure (CHF), Deep Vein Thrombosis (DVT), Myocardial Infarction ([place]), Pulmonary Embolus Additional Family Medical History / Comment(s): [place] at age 38. "hole in colon". Mother Family Medical History: Cancer, COPD, Diabetes Mellitus, Hyperlipidemia Additional Family Medical History / Comment(s): Mother had breast and lung cancer. She of lung cancer in her 60s. Sister(s) Family Medical History: Diabetes Mellitus, Liver Disease Additional Family Medical History / Comment(s): Bi-polar, anxiety, hysterectomy, fatty liver. Brother(s) History Unknown: Yes Medications and Allergies Home Medications Medication Instructions Recorded Confirmed Type Montelukast Sodium [Singulair] 10 mg PO HS 06/01/16 06/19/19 History Albuterol Inhaler [Ventolin Hfa 2 puff INHALATION RT-Q6H PRN 10/15/17 06/19/19 History Inhaler] Beclomethasone Dipropionate [Qvar 2 puff INHALATION RT-BID 10/15/17 06/19/19 History 80 mcg] Fenofibrate Nanocrystallized 145 mg PO PC-SUPPER 10/15/17 06/19/19 History [Fenofibrate] Venlafaxine HCl [Effexor XR] 150 mg PO HS 10/15/17 06/19/19 History Nitroglycerin Sl Tabs [Nitrostat] 0.4 mg SUBLINGUAL Q5M PRN 01/10/19 06/19/19 History Divalproex [Depakote] 500 mg PO BID tablet. 01/27/19 06/19/19 Rx metFORMIN HCL [Glucophage] 500 mg PO PC-SUPPER #0 02/19/19 06/19/19 Rx Acyclovir [Zovirax] 400 mg PO BID 04/02/19 06/19/19 History Metoprolol Tartrate [Lopressor] 25 mg PO HS 06/03/19 06/19/19 History Zolpidem [Ambien] 5 mg PO HS PRN #30 tab 06/09/19 06/19/19 Rx Venetoclax [Venclexta] 400 mg PO DAILY@1630 06/19/19 06/19/19 History Voriconazole 100 mg PO DAILY@1130 06/19/19 06/19/19 History Allergies Allergy/AdvReac Type Severity Reaction Status Date / Time naproxen [From Naprosyn] Allergy Unknown Rash/Hives Verified 06/19/19 22:09 adhesive tape Allergy Rash/Hives Verified 06/19/19 22:09 ibuprofen Allergy Itching Verified 06/19/19 22:09 mold Allergy Unknown Verified 06/19/19 22:09 vancomycin Allergy Rash/Hives Verified 06/19/19 22:09 carrot AdvReac Dyspnea Verified 06/19/19 22:09 chocolate flavor AdvReac Dyspnea Verified 06/19/19 22:09 grass pollen-perennial rye, AdvReac Dyspnea Verified 06/19/19 22:09 standar Physical Exam Vitals: Vital Signs Temp Pulse Pulse Resp BP BP Pulse Ox 06/20/19 05:22 98.1 F 94 16 119/61 99 06/20/19 00:02 98.0 F 94 18 124/60 98 06/19/19 23:11 98.6 F 56 L 16 129/87 99 06/19/19 20:24 102.0 F H 112 H 22 137/75 99 Intake and Output 06/19/19 06/20/19 06/20/19 22:59 06:59 14:59 Intake Total 2069 Balance 2069 Intake: Intake, IV Titration 2069 Amount DAPTOmycin 500 mg In 50 Sodium Chloride 0.9% 50 ml @ 100 mls/hr IVPB Q24H [facility] Rx#:[id number] Sodium Chloride 0.9% 1, 520 000 ml @ 130 mls/hr IV . Q7H42M [facility] Rx#:[id number] Sodium Chloride 0.9% 500 1500 ml 500 ml @ 1000 mls/hr IV Q35M [facility] Rx#:[id number] Other: Voiding Method Toilet Toilet Urinal Urinal # Voids 1 Weight 205.1 kg 98 kg - Constitutional General appearance: average body habitus, cooperative, no acute distress - EENT Eyes: abnormal pupil, EOMI ENT: hearing grossly normal, normal oropharynx - Neck Neck: no lymphadenopathy - Respiratory Respiratory: bilateral: CTA - Cardiovascular Rhythm: regular Heart sounds: normal: S1, S2 Abnormal Heart Sounds: no systolic murmur, no diastolic murmur, no rub, no S3 Gallop, no S4 Gallop, no click, no other leg Peripheral Edema: bilateral: None - Gastrointestinal General gastrointestinal: no absent bowel sounds, no decreased bowel sounds, no distended, no hepatomegaly, no hyperactive bowel sounds, normal bowel sounds, no organomegaly, no rigid, no scaphoid, soft, no splenomegaly, no tenderness, no umbilical hernia, no ventral hernia - Integumentary Integumentary: pale - Neurologic Neurologic: CNII-XII intact - Musculoskeletal Musculoskeletal: strength equal bilaterally - Psychiatric Psychiatric: A&O x's 3, appropriate affect, intact judgment & insight Results CBC & Chem 7: 06/20/19 09:27 06/20/19 09:27 Labs: Abnormal Lab Results - Last 24 Hours (Table) 06/19/19 06/19/19 06/19/19 Range/Units 21:00 21:00 21:00 WBC 0.6 L* (3.8-10.6) k/uL RBC 2.97 L (4.30-5.90) m/uL Hgb 8.8 L D (13.0-17.5) gm/dL Hct 24.9 L (39.0-53.0) % Plt Count 10 L* (150-450) k/uL Chloride (98-107) mmol/L BUN 8 L (9-20) mg/dL Creatinine 0.58 L (0.66-1.25) mg/dL Glucose 149 H (74-99) mg/dL POC Glucose (mg/dL) (75-99) mg/dL Plasma Lactic Acid Cory 2.4 H* (0.7-2.0) mmol/L Total Protein (6.3-8.2) g/dL Urine Ketones (Negative) 06/19/19 06/20/19 06/20/19 Range/Units 21:07 06:58 09:27 WBC 0.5 L* (3.8-10.6) k/uL RBC 2.60 L (4.30-5.90) m/uL Hgb 7.9 L (13.0-17.5) gm/dL Hct 22.1 L (39.0-53.0) % Plt Count (150-450) k/uL Chloride (98-107) mmol/L BUN (9-20) mg/dL Creatinine (0.66-1.25) mg/dL Glucose (74-99) mg/dL POC Glucose (mg/dL) 126 H (75-99) mg/dL Plasma Lactic Acid Cory (0.7-2.0) mmol/L Total Protein (6.3-8.2) g/dL Urine Ketones Trace H (Negative) 06/20/19 06/20/19 Range/Units 09:27 11:00 WBC (3.8-10.6) k/uL RBC (4.30-5.90) m/uL Hgb (13.0-17.5) gm/dL Hct (39.0-53.0) % Plt Count (150-450) k/uL Chloride 108 H (98-107) mmol/L BUN 7 L (9-20) mg/dL Creatinine 0.55 L (0.66-1.25) mg/dL Glucose 136 H (74-99) mg/dL POC Glucose (mg/dL) 107 H (75-99) mg/dL Plasma Lactic Acid Cory (0.7-2.0) mmol/L Total Protein 6.1 L (6.3-8.2) g/dL Urine Ketones (Negative) Chest x-ray: report reviewed Assessment and Plan (1) Febrile neutropenia Narrative/Plan: Pancultures ordered and pending. Close monitoring of vital signs Antibiotic, antiviral and antifungal medications ordered. No G-CSF, patient is an acute myeloid leukemia Current Visit: Yes Status: Acute Priority: High Code(s): D70.9 - NEUTROPENIA, UNSPECIFIED; R50.81 - FEVER PRESENTING WITH CONDITIONS CLASSIFIED ELSEWHERE SNOMED Code(s): 387764228 (2) Pancytopenia due to antineoplastic chemotherapy Narrative/Plan: Conservative transfusions as patient is a transplant candidate. Patient requires irradiated blood products. Transfuse to keep hemoglobin above 6.9. Transfuse to keep platelets above 10,000 unless symptomatic. No intervention for low white blood cell count. Current Visit: Yes Status: Chronic Priority: Medium Code(s): D61.810 - ANTINEOPLASTIC CHEMOTHERAPY INDUCED PANCYTOPENIA; T45.1X5A - ADVERSE EFFECT OF ANTINEOPLASTIC AND IMMUNOSUP DRUGS, INIT SNOMED Code(s): 689529824279829 (3) Acute erythroid leukemia Narrative/Plan: Patient is currently in cycle 1 of oral venetoclax and IV Vidaza once a month. Plan is to continue therapy to keep patient in remission so that he can advance to transplant. Hold venetoclax at this time. Current Visit: Yes Status: Acute Priority: High Code(s): C94.00 - ACUTE ERYTHROID LEUKEMIA, NOT HAVING ACHIEVED REMISSION SNOMED Code(s): 09171302 Plan: Case was discussed with Internal Medicine nurse practitioner.
[2019-06-20 17:31] LABS: Glucose,Whole Blood 108 mg/dL (75-99)
[2019-06-20] MEDS ORDERED: FENOFIBRATE NANOCRYSTALLIZED 145 MG PO SCH (18:30)
[2019-06-20 20:08] LABS: Glucose,Whole Blood 121 mg/dL (75-99)
[2019-06-20] MEDS: FLUTICASONE 110 MCG INHALER INHALATION SCH (20:31)
[2019-06-20] MEDS: HYDROcodone/APAP 7.5-325MG 1 EACH TAB PO PRN (20:53)
[2019-06-20] MEDS: VENLAFAXINE HCL ER 150 MG CAP PO SCH (20:53)
[2019-06-20] MEDS: MONTELUKAST 10 MG TAB PO SCH (20:53)
[2019-06-20] MEDS: ZOLPIDEM 5 MG TAB PO PRN (20:53)
[2019-06-20] MEDS: METOPROLOL TARTRATE 25 MG TAB PO SCH (20:53)
--- NOTE | 2019-06-20 22:45 | CONS ---
CONSULTATION DATE OF SERVICE: 06/20/2019. REASON FOR CONSULTATION: Fever. HISTORY OF PRESENT ILLNESS: The patient is a 48-year-old male with a past medical history significant for acute leukemia in this patient who is status post chemotherapy completed and discharged on 06/09/2019 through a peripheral IV. Patient does not have any MediPort. However, apparently the patient did have a PICC line which apparently almost came out and was subsequently discontinued by the family itself. Patient denied any purulent drainage or any swelling or redness to the left arm where the PICC line was. The patient is now presenting to the ER last night with the chief complaint of fever. Apparently the patient did have a fever of 100.5 at home, and when he presented to the hospital his fever was up to 102 degrees Fahrenheit. The patient did have some chills with it but denies rigors. Denies any headache or URI symptoms. Denies having any chest pain, shortness of breath or cough. No nausea or vomiting. No abdominal pain. Apparently the patient did have occasional diarrhea. Yesterday he had almost 8 loose stools with some mucus but no blood and denies having any urinary symptoms. On presentation, the patient did have a fever of 102 degrees Fahrenheit. The patient has been afebrile since then. The patient was noted to be leukopenic with a white count of 0.6, platelet count 10. Urine has been negative. Influenza serology was negative. Chest x-ray was reported negative. The patient was started on daptomycin and cefepime because of his VANCOMYCIN ALLERGY. Infectious Disease was consulted for further recommendations regarding antibiotic therapy. REVIEW OF SYSTEMS: Positive points have been mentioned in HPI. Rest of the systems are negative. PAST MEDICAL HISTORY: Asthma, leukemia, diabetes mellitus, gastroesophageal reflux disease, hypertension, hyperlipidemia, [place], osteoarthritis, sleep apnea. PAST SURGICAL HISTORY: PTCA with stent, hernia repair, bone marrow biopsy, right knee replacement and PICC line placement and subsequent removal. SOCIAL HISTORY: Current everyday smoker. Denies drinking or drug use. FAMILY HISTORY: Father with history of congestive heart failure, DVT, PE. Mother with history of lung and breast cancer, diabetes and hyperlipidemia. ALLERGIES: NAPROXEN, IBUPROFEN, VANCOMYCIN. CURRENT MEDICATIONS: Tylenol, Zovirax, daptomycin, Depakote, Flovent, NovoLog, Lopressor, Zosyn, Effexor, and Ambien. PHYSICAL EXAMINATION: Blood pressure is 119/71 with a pulse of 83, temperature 97.9. T-max 102. He is 99% on room air. General description is a middle-aged male lying in bed in no distress. No tachypnea or accessory muscle of respiration use. HEENT examination shows pallor. No scleral icterus. Oral mucosa membrane is dry. No pharyngeal erythema or thrush. NECK: Trachea central. No thyromegaly. LUNGS: Unlabored breathing. Clear to auscultation anteriorly. HEART: S1, S2. Regular rate and rhythm. ABDOMEN: Soft. No tenderness. No guarding or rigidity. No organomegaly. EXTREMITIES: No edema of feet. SKIN EXAMINATION: No rash or mass palpable. Neurologically the patient is awake, alert, oriented x3. Mood and affect normal. LABS/IMAGING: Hemoglobin 7.1, white count 0.5, platelet count 10, BUN of 7, creatinine 0.5. Electrolytes have been normal. Normal lactic was 2.4 down to 1.5. Urine negative. Influenza serology was negative. Chest x-ray was negative. DIAGNOSTIC IMPRESSION AND PLAN: Patient presented to hospital with a fever in this patient who did have acute leukemia and recently completed his chemo, currently with no localizing signs of infection in this patient. Workup so far negative, including a UA, chest x-ray, and abdomen is soft to clinical examination. The only concerning point has been his diarrhea and infectious colitis needs to be ruled out; plus his left arm PICC line which apparently was recently discontinued and was there since February. PLAN: 1. Will wait for the blood culture to finalize. 2. Will check stool for C difficile and stool culture. 3. Continue with empiric cefepime 2 grams q.8 and daptomycin. 4. Will follow his clinical condition and culture to further adjust medication if needed. Thank you for this consultation. Will follow this patient along with you. MMODL / IJN: [id number] /
[2019-06-21] MEDS: PIPERACILLIN-TAZOBACTAM 3.375 GM in SODIUM CHLORIDE 0.9% 100 ML IVPB SCH ×3 (00:09→17:15)
[2019-06-21] MEDS: SODIUM CHLORIDE 0.9% 1,000 ML IV SCH ×3 (06:48→23:31)
[2019-06-21 07:18] LABS: Glucose,Whole Blood 130 mg/dL (75-99)
[2019-06-21] MEDS: INSULIN ASPART (NovoLOG) 100 UNIT/ML VIAL SQ SCH ×4 (07:34→20:27)
[2019-06-21] MEDS: DIVALPROEX 500 MG TABLET.DR PO SCH ×2 (07:53→20:26)
[2019-06-21] MEDS: PANTOPRAZOLE 40 MG TABLET PO SCH (07:53)
[2019-06-21] MEDS: ACYCLOVIR 200 MG CAP PO SCH ×2 (07:54→20:26)
[2019-06-21] MEDS: FLUTICASONE 110 MCG INHALER INHALATION SCH ×2 (08:03→19:54)
[2019-06-21 08:26] LABS: HCT 23.7 % (39.0-53.0); HGB 8.2 gm/dL (13.0-17.5); MCH 28.9 pg (25.0-35.0); MCHC 34.4 g/dL (31.0-37.0); MCV 83.9 fL (80.0-100.0); Mean Platelet Volume 7.1; Poikilocytosis Moderate; RBC 2.83 m/uL (4.30-5.90); RDW 14.9 % (11.5-15.5)
[2019-06-21 08:35] LABS: ALT 47 U/L (4-49); AST 29 U/L (17-59); African American GFR (CKD) >90 (>60 ml/min/1.73 sqM); Albumin 3.9 g/dL (3.5-5.0); Alkaline Phosphatase 74 U/L (38-126); Anion Gap 11 mmol/L; Blood Urea Nitrogen 9 mg/dL (9-20); Calcium 8.6 mg/dL (8.4-10.2); Carbon Dioxide 24 mmol/L (22-30); Chloride 105 mmol/L (98-107); Glucose 137 mg/dL (74-99); Non-African American GFR(CKD) >90 (>60 ml/min/1.73 sqM); Potassium 4.1 mmol/L (3.5-5.1); Sodium 140 mmol/L (137-145); Total Bilirubin 0.8 mg/dL (0.2-1.3); Total Protein 6.6 g/dL (6.3-8.2)
[2019-06-21 08:42] LABS: Platelet Count 8 k/uL (150-450); WBC 0.6 k/uL (3.8-10.6)
[2019-06-21 11:43] LABS: Glucose,Whole Blood 103 mg/dL (75-99)
[2019-06-21] MEDS: VORICONAZOLE 200 MG TAB PO SCH (12:54)
--- NOTE | 2019-06-21 13:40 | P.PN ---
Subjective Progress Note Date: 06/21/19 This is a 48-year-old male patient who presented with complaints of fever. Patient has been on chemotherapy for acute erythroid leukemia. Patient was recently admitted for inpatient chemotherapy and discharged on 06/09/2019. Patient reports that the fever started last night he presented to the ER. Brent sosa does report occasional diarrhea. Patient also reports that he had a bloody bowel movement yesterday. Patient denies any headaches body aches nausea or vomiting. Patient denies any acute respiratory symptoms. Patient denies shortness of breath or chest discomfort. Additional medical history includes acute erythroid leukemia, diabetes mellitus type 2, hypertension, seizure anxiety depression and bipolar. EKG completed showing normal sinus rhythm. Normal EKG. Chest x-ray completed showing no acute process. Influenza negative. White blood cell is 0.6, platelets 10.0 lactic acid initially elevated troponin for repeat lactic 1.5. UA negative. Patient started on daptomycin and IV Zosyn. Infectious disease and oncology service is consulted. Stool for occult blood will be ordered. Hemoglobin currently stable at 8.8 On 06/21/2019 patient was seen and examined on the medical floor he is alert and oriented 3 in no apparent distress he is complaining of occasional headache ot herwise he denies any complaints there is no fever or chils no dizziness no chest pain no shortness of breath no cough no nausea or vomiting no abdominal pain no diarrhea no burning with urination no frequency or urgency and no hematuria Objective - Vital Signs Vital signs: Vital Signs Temp 98.4 F 06/21/19 12:13 Pulse 83 06/21/19 12:13 Resp 16 06/21/19 12:13 BP 126/59 06/21/19 12:13 Pulse Ox 98 06/21/19 12:13 Intake & Output 06/20/19 06/21/19 06/21/19 18:59 06:59 18:59 Intake Total 1060 360 Output Total 400 1100 800 Balance -400 -40 -440 Intake: Intake, IV Titration 1060 Amount DAPTOmycin 500 mg In 50 Sodium Chloride 0.9% 50 ml @ 100 mls/hr IVPB Q24H [facility] Rx#:[id number] Piperacillin-Tazobactam 3 100 .375 gm In Sodium Chloride 0.9% 100 ml @ 25 mls/hr IVPB Q8HR [facility] Rx# :[id number] Sodium Chloride 0.9% 1, 910 000 ml @ 130 mls/hr IV . Q7H42M [facility] Rx#:[id number] Oral 360 Output: Urine 400 1100 800 Other: Voiding Method Toilet Toilet Toilet Urinal Urinal Urinal # Voids 2 2 - Exam In general patient is alert and oriented 3 in no apparent distress Head normocephalic and atraumatic Neck supple no JVD no goiter Lungs clear to auscultation bilaterally no wheezing or crackles Heart regular rate and rhythm S1-S2, no rub or gallop Abdomen is soft nontender nondistended positive bowel sounds no hepatosplenomegaly Extremities no edema no cyanosis or clubbing Neuro no gross focal neurological deficit - Labs CBC & Chem 7: 06/21/19 07:38 06/21/19 07:38 Labs: Abnormal Lab Results - Last 24 Hours (Table) 06/20/19 06/20/19 06/21/19 Range/Units 17:30 20:06 07:09 WBC (3.8-10.6) k/uL RBC (4.30-5.90) m/uL Hgb (13.0-17.5) gm/dL Hct (39.0-53.0) % Plt Count (150-450) k/uL Creatinine (0.66-1.25) mg/dL Glucose (74-99) mg/dL POC Glucose (mg/dL) 108 H 121 H 130 H (75-99) mg/dL 06/21/19 06/21/19 06/21/19 Range/Units 07:38 07:38 11:41 WBC 0.6 L* (3.8-10.6) k/uL RBC 2.83 L (4.30-5.90) m/uL Hgb 8.2 L (13.0-17.5) gm/dL Hct 23.7 L (39.0-53.0) % Plt Count 8 L* (150-450) k/uL Creatinine 0.59 L (0.66-1.25) mg/dL Glucose 137 H (74-99) mg/dL POC Glucose (mg/dL) 103 H (75-99) mg/dL Microbiology - Last 24 Hours (Table) 06/19/19 21:00 Blood Culture - Preliminary Blood No Growth after 24 hours Assessment and Plan Plan: 1. Febrile illness with elevated lactic acid. Patient has been receiving chemotherapy pancytopenia secondary to chemotherapy will consult infectious disease. Chest x-ray negative. Influenza negative. UA negative. Blood c ultures have been ordered. Lactic acid has improved to 1.5 patient currently on daptomycin and Zosyn 2. Acute erythroid leukemia. Patient recently completed inpatient chemotherapy and discharged on 06/09/2019. Oncology services have been consulted 3. Possible GI bleed. Platelet with 10. Stool for occult blood has been ordered. Hemoglobin stable at 8.8 4. Diabetes mellitus type 2. Metformin on hold sliding scale insulin ordered 5. Essential hypertension. Home meds resumed 6. History of bipolar depression. Home meds resumed 7. History of seizures. 8. Pancytopenia secondary to chemotherapy DVT prophylaxis SCDs. GI prophylaxis Pepcid Oncology and infectious disease consulted Patient on daptomycin and Zosyn for IV antibiotics Stool for occult blood ordered blood Culture ordered Patient is stable without significant improvement continue with current management will follow in
[2019-06-21] MEDS: HYDROcodone/APAP 7.5-325MG 1 EACH TAB PO PRN ×2 (13:43→20:25)
[2019-06-21 16:44] LABS: Glucose,Whole Blood 109 mg/dL (75-99)
[2019-06-21 20:07] LABS: Glucose,Whole Blood 128 mg/dL (75-99)
[2019-06-21] MEDS: MONTELUKAST 10 MG TAB PO SCH (20:25)
[2019-06-21] MEDS: METOPROLOL TARTRATE 25 MG TAB PO SCH (20:26)
[2019-06-21] MEDS: VENLAFAXINE HCL ER 150 MG CAP PO SCH (20:27)
[2019-06-21] MEDS: DAPTOmycin 500 MG in SODIUM CHLORIDE 0.9% 50 ML IVPB SCH (23:28)
[2019-06-22] MEDS: PIPERACILLIN-TAZOBACTAM 3.375 GM in SODIUM CHLORIDE 0.9% 100 ML IVPB SCH ×4 (00:23→23:47)
[2019-06-22] MEDS: SODIUM CHLORIDE 0.9% 1,000 ML IV SCH ×3 (05:32→19:39)
[2019-06-22] MEDS: INSULIN ASPART (NovoLOG) 100 UNIT/ML VIAL SQ SCH ×4 (07:14→20:33)
[2019-06-22] MEDS: PANTOPRAZOLE 40 MG TABLET PO SCH (07:15)
[2019-06-22] MEDS: DIVALPROEX 500 MG TABLET.DR PO SCH ×2 (07:15→20:33)
[2019-06-22] MEDS: ACYCLOVIR 200 MG CAP PO SCH ×2 (07:15→20:33)
[2019-06-22 07:17] LABS: Glucose,Whole Blood 109 mg/dL (75-99)
[2019-06-22] MEDS: FLUTICASONE 110 MCG INHALER INHALATION SCH ×2 (07:32→18:48)
[2019-06-22 07:42] LABS: HCT 24.8 % (39.0-53.0); HGB 8.7 gm/dL (13.0-17.5); Hyperchromasia Slight; MCHC 34.9 g/dL (31.0-37.0); MCV 83.1 fL (80.0-100.0); Poikilocytosis Moderate; RBC 2.99 m/uL (4.30-5.90); RDW 15.1 % (11.5-15.5)
[2019-06-22 07:44] LABS: ALT 42 U/L (4-49); AST 24 U/L (17-59); African American GFR (CKD) >90 (>60 ml/min/1.73 sqM); Albumin 4.1 g/dL (3.5-5.0); Alkaline Phosphatase 78 U/L (38-126); Anion Gap 10 mmol/L; Blood Urea Nitrogen 10 mg/dL (9-20); Calcium 8.8 mg/dL (8.4-10.2); Carbon Dioxide 27 mmol/L (22-30); Chloride 102 mmol/L (98-107); Glucose 96 mg/dL (74-99); Non-African American GFR(CKD) >90 (>60 ml/min/1.73 sqM); Potassium 4.3 mmol/L (3.5-5.1); Sodium 139 mmol/L (137-145)
[2019-06-22 07:51] LABS: WBC 0.6 k/uL (3.8-10.6)
[2019-06-22 07:52] LABS: Platelet Count 19 k/uL (150-450)
[2019-06-22] MEDS: VORICONAZOLE 200 MG TAB PO SCH (11:23)
[2019-06-22 11:49] LABS: Glucose,Whole Blood 115 mg/dL (75-99)
--- NOTE | 2019-06-22 14:50 | P.PN ---
Subjective Progress Note Date: 06/22/19 This is a 48-year-old male patient who presented with complaints of fever. Patient has been on chemotherapy for acute erythroid leukemia. Patient was recently admitted for inpatient chemotherapy and discharged on 06/09/2019. Patient reports that the fever started last night he presented to the ER. Brent sosa does report occasional diarrhea. Patient also reports that he had a bloody bowel movement yesterday. Patient denies any headaches body aches nausea or vomiting. Patient denies any acute respiratory symptoms. Patient denies shortness of breath or chest discomfort. Additional medical history includes acute erythroid leukemia, diabetes mellitus type 2, hypertension, seizure anxiety depression and bipolar. EKG completed showing normal sinus rhythm. Normal EKG. Chest x-ray completed showing no acute process. Influenza negative. White blood cell is 0.6, platelets 10.0 lactic acid initially elevated troponin for repeat lactic 1.5. UA negative. Patient started on daptomycin and IV Zosyn. Infectious disease and oncology service is consulted. Stool for occult blood will be ordered. Hemoglobin currently stable at 8.8 On 06/21/2019 patient was seen and examined on the medical floor he is alert and oriented 3 in no apparent distress he is complaining of occasional headache ot herwise he denies any complaints there is no fever or chills no dizziness no chest pain no shortness of breath no cough no nausea or vomiting no abdominal pain no diarrhea no burning with urination no frequency or urgency and no hematuria On 06/22/2019 patient was seen and examined on the medical floor he is doing well and denies any complaints at this time there is no fever or chills no headache or dizziness no chest pain no shortness of breath no cough no nausea or vomiting no abdominal pain no diarrhea and no urinary symptoms Objective - Vital Signs Vital signs: Vital Signs Temp 97.9 F 06/22/19 11:50 Pulse 79 06/22/19 11:50 Resp 16 06/22/19 11:50 BP 119/57 06/22/19 11:50 Pulse Ox 97 06/22/19 11:50 Intake & Output 06/21/19 06/22/19 06/22/19 18:59 06:59 18:59 Intake Total 1933 1650 2920 Output Total 2300 1600 800 Balance -915 40 7996 Intake: Intake, IV Titration 1060 1400 Amount DAPTOmycin 500 mg In 50 Sodium Chloride 0.9% 50 ml @ 100 mls/hr IVPB Q24H [facility] Rx#:[id number] Piperacillin-Tazobactam 3 100 100 .375 gm In Sodium Chloride 0.9% 100 ml @ 25 mls/hr IVPB Q8HR [facility] Rx# :[id number] Sodium Chloride 0.9% 1, 910 1300 000 ml @ 130 mls/hr IV . Q7H42M [facility] Rx#:[id number] Oral 9212 458 1700 Blood Product 213 Platelet Irr Pheresis 213 Acda1 Unit [id number] Output: Urine 2300 1600 800 Other: Voiding Method Toilet Toilet Toilet Urinal Urinal Urinal # Voids 2 4 - Exam In general patient is alert and oriented 3 in no apparent distress Head normocephalic and atraumatic Neck supple no JVD no goiter Lungs clear to auscultation bilaterally no wheezing or crackles Heart regular rate and rhythm S1-S2, no rub or gallop Abdomen is soft nontender nondistended positive bowel sounds no hepa tosplenomegaly Extremities no edema no cyanosis or clubbing Neuro no gross focal neurological deficit - Labs CBC & Chem 7: 06/22/19 07:06 06/22/19 07:07 Labs: Abnormal Lab Results - Last 24 Hours (Table) 06/21/19 06/21/19 06/22/19 Range/Units 16:43 20:06 07:06 WBC 0.6 L* (3.8-10.6) k/uL RBC 2.99 L (4.30-5.90) m/uL Hgb 8.7 L (13.0-17.5) gm/dL Hct 24.8 L (39.0-53.0) % Plt Count 19 L* D (150-450) k/uL Creatinine (0.66-1.25) mg/dL POC Glucose (mg/dL) 109 H 128 H (75-99) mg/dL 06/22/19 06/22/19 06/22/19 Range/Units 07:07 07:14 11:47 WBC (3.8-10.6) k/uL RBC (4.30-5.90) m/uL Hgb (13.0-17.5) gm/dL Hct (39.0-53.0) % Plt Count (150-450) k/uL Creatinine 0.62 L (0.66-1.25) mg/dL POC Glucose (mg/dL) 109 H 115 H (75-99) mg/dL Microbiology - Last 24 Hours (Table) 06/19/19 21:00 Blood Culture - Preliminary Blood No Growth after 48 hours 06/21/19 13:20 Stool Culture - Preliminary Stool Assessment and Plan Plan: 1. Febrile illness with elevated lactic acid. Patient has been receiving chemotherapy pancytopenia secondary to chemotherapy will consult infectious disease. Chest x-ray negative. Influenza negative. UA negative. Blood cultures have been ordered. Lactic acid has improved to 1.5 patient currently on daptomycin and Zosyn 2. Acute erythroid leukemia. Patient recently completed inpatient chemotherapy and discharged on 06/09/2019. Oncology services have been consulted 3. Possible GI bleed. Platelet with 10. Stool for occult blood has been ordered. Hemoglobin stable at 8.8 4. Diabetes mellitus type 2. Metformin on hold sliding scale insulin ordered 5. Essential hypertension. Home meds resumed 6. History of bipolar depression. Home meds resumed 7. History of seizures. 8. Pancytopenia secondary to chemotherapy DVT prophylaxis SCDs. GI prophylaxis Pepcid Oncology and infectious disease consulted Patient on daptomycin and Zosyn for IV antibiotics Stool for occult blood ordered blood Culture ordered Patient is stable without significant improvement continue with current management will follow in
[2019-06-22 16:46] LABS: Glucose,Whole Blood 99 mg/dL (75-99)
[2019-06-22 19:53] LABS: Glucose,Whole Blood 138 mg/dL (75-99)
[2019-06-22] MEDS: METOPROLOL TARTRATE 25 MG TAB PO SCH (20:33)
[2019-06-22] MEDS: ACETAMINOPHEN TAB 325 MG TAB PO PRN (20:34)
[2019-06-22] MEDS: VENLAFAXINE HCL ER 150 MG CAP PO SCH (20:34)
[2019-06-22] MEDS: MONTELUKAST 10 MG TAB PO SCH (20:34)
[2019-06-22] MEDS: HYDROcodone/APAP 7.5-325MG 1 EACH TAB PO PRN (21:23)
--- NOTE | 2019-06-22 21:52 | P.PN ---
Subjective Progress Note Date: 06/21/19 The patient has some loose stools but denies any other complaints. No fever/chills/nausea/vomiting. Appetite is maintained. No new areas of pain. No obvious bleeding Objective - Vital Signs Vital signs: Vital Signs Temp 100.9 F H 06/22/19 20:58 Pulse 100 06/22/19 20:58 Resp 16 06/22/19 20:58 BP 118/65 06/22/19 20:58 Pulse Ox 97 06/22/19 20:58 Intake & Output 06/22/19 06/22/19 06/23/19 06:59 18:59 06:59 Intake Total 1650 3160 590 Output Total 1600 800 300 Balance 50 2360 290 Intake: Intake, IV Titration 1060 1400 Amount DAPTOmycin 500 mg In 50 Sodium Chloride 0.9% 50 ml @ 100 mls/hr IVPB Q24H [facility] Rx#:[id number] Piperacillin-Tazobactam 3 100 100 .375 gm In Sodium Chloride 0.9% 100 ml @ 25 mls/hr IVPB Q8HR [facility] Rx# :[id number] Sodium Chloride 0.9% 1, 910 1300 000 ml @ 130 mls/hr IV . Q7H42M [facility] Rx#:[id number] Oral 590 1760 590 Output: Urine 1600 800 300 Other: Voiding Method Toilet Toilet Urinal Urinal # Voids 4 - Constitutional General appearance: Present: no acute distress - EENT Eyes: Present: EOMI ENT: Present: hearing grossly normal, normal oropharynx - Respiratory Respiratory: bilateral: CTA - Cardiovascular Rhythm: regular Heart sounds: normal: S1, S2 - Gastrointestinal General gastrointestinal: Present: normal bowel sounds, soft - Integumentary Integumentary: Present: normal - Neurologic Neurologic: Present: CNII-XII intact - Musculoskeletal Musculoskeletal: Present: generalized weakness - Psychiatric Psychiatric: Present: A&O x's 3 - Labs CBC & Chem 7: 06/22/19 07:06 06/22/19 07:07 Labs: Abnormal Lab Results - Last 24 Hours (Table) 06/22/19 06/22/19 06/22/19 Range/Units 07:06 07:07 07:14 WBC 0.6 L* (3.8-10.6) k/uL RBC 2.99 L (4.30-5.90) m/uL Hgb 8.7 L (13.0-17.5) gm/dL Hct 24.8 L (39.0-53.0) % Plt Count 19 L* D (150-450) k/uL Creatinine 0.62 L (0.66-1.25) mg/dL POC Glucose (mg/dL) 109 H (75-99) mg/dL 06/22/19 06/22/19 Range/Units 11:47 19:52 WBC (3.8-10.6) k/uL RBC (4.30-5.90) m/uL Hgb (13.0-17.5) gm/dL Hct (39.0-53.0) % Plt Count (150-450) k/uL Creatinine (0.66-1.25) mg/dL POC Glucose (mg/dL) 115 H 138 H (75-99) mg/dL Microbiology - Last 24 Hours (Table) 06/19/19 21:00 Blood Culture - Preliminary Blood No Growth after 48 hours 06/21/19 13:20 Stool Culture - Preliminary Stool Assessment and Plan (1) Febrile neutropenia Narrative/Plan: Fever has not recurred after initial presentation. Cultures remained negative. Continue broad-spectrum antibiotics. If cultures remain negative over the next 1-2 days, then we'll consider switching back by mouth antibiotic Stool cultures ordered Current Visit: Yes Status: Acute Priority: High Code(s): D70.9 - NEUTROPENIA, UNSPECIFIED; R50.81 - FEVER PRESENTING WITH CONDITIONS CLASSIFIED ELSEWHERE SNOMED Code(s): 590112645 (2) Pancytopenia due to antineoplastic chemotherapy Narrative/Plan: Continue to monitor with transfusion support. 1 unit of platelets ordered for platelets of 9. Transfuse to keep hemoglobin greater than 7. Patient is not a candidate for white cell growth factors until remission is documented Current Visit: Yes Status: Chronic Priority: Medium Code(s): D61.810 - ANTINEOPLASTIC CHEMOTHERAPY INDUCED PANCYTOPENIA; T45.1X5A - ADVERSE EFFECT OF ANTINEOPLASTIC AND IMMUNOSUP DRUGS, INIT SNOMED Code(s): 460896580446323 (3) Acute erythroid leukemia Narrative/Plan: The patient is currently on salvage treatment. Venetoclax is on hold, till infection concerns are resolved. Current Visit: Yes Status: Acute Priority: High Code(s): C94.00 - ACUTE ERYTHROID LEUKEMIA, NOT HAVING ACHIEVED REMISSION SNOMED Code(s): 34159613
--- NOTE | 2019-06-22 22:05 | P.PN ---
Subjective Progress Note Date: 06/22/19 The patient denies any new complaints. No fever/chills/nausea/vomiting. Appetite is fair. Diarrhea has resolved. No obvious bleeding Objective - Vital Signs Vital signs: Vital Signs Temp 100.9 F H 06/22/19 20:58 Pulse 100 06/22/19 20:58 Resp 16 06/22/19 20:58 BP 118/65 06/22/19 20:58 Pulse Ox 97 06/22/19 20:58 Intake & Output 06/22/19 06/22/19 06/23/19 06:59 18:59 06:59 Intake Total 1650 3160 590 Output Total 1600 800 300 Balance 50 2360 290 Intake: Intake, IV Titration 1060 1400 Amount DAPTOmycin 500 mg In 50 Sodium Chloride 0.9% 50 ml @ 100 mls/hr IVPB Q24H [facility] Rx#:[id number] Piperacillin-Tazobactam 3 100 100 .375 gm In Sodium Chloride 0.9% 100 ml @ 25 mls/hr IVPB Q8HR [facility] Rx# :[id number] Sodium Chloride 0.9% 1, 910 1300 000 ml @ 130 mls/hr IV . Q7H42M [facility] Rx#:[id number] Oral 590 1760 590 Output: Urine 1600 800 300 Other: Voiding Method Toilet Toilet Urinal Urinal # Voids 4 - Constitutional General appearance: Present: no acute distress - EENT Eyes: Present: EOMI ENT: Present: hearing grossly normal, normal oropharynx - Respiratory Respiratory: bilateral: CTA - Cardiovascular Rhythm: regular Heart sounds: normal: S1, S2 - Gastrointestinal General gastrointestinal: Present: normal bowel sounds, soft - Integumentary Integumentary: Present: normal - Neurologic Neurologic: Present: CNII-XII intact - Musculoskeletal Musculoskeletal: Present: generalized weakness, strength equal bilaterally - Psychiatric Psychiatric: Present: A&O x's 3 - Labs CBC & Chem 7: 06/22/19 07:06 06/22/19 07:07 Labs: Abnormal Lab Results - Last 24 Hours (Table) 06/22/19 06/22/19 06/22/19 Range/Units 07:06 07:07 07:14 WBC 0.6 L* (3.8-10.6) k/uL RBC 2.99 L (4.30-5.90) m/uL Hgb 8.7 L (13.0-17.5) gm/dL Hct 24.8 L (39.0-53.0) % Plt Count 19 L* D (150-450) k/uL Creatinine 0.62 L (0.66-1.25) mg/dL POC Glucose (mg/dL) 109 H (75-99) mg/dL 06/22/19 06/22/19 Range/Units 11:47 19:52 WBC (3.8-10.6) k/uL RBC (4.30-5.90) m/uL Hgb (13.0-17.5) gm/dL Hct (39.0-53.0) % Plt Count (150-450) k/uL Creatinine (0.66-1.25) mg/dL POC Glucose (mg/dL) 115 H 138 H (75-99) mg/dL Microbiology - Last 24 Hours (Table) 06/19/19 21:00 Blood Culture - Preliminary Blood No Growth after 48 hours 06/21/19 13:20 Stool Culture - Preliminary Stool Assessment and Plan (1) Febrile neutropenia Narrative/Plan: The patient continues to be afebrile. Cultures negative so far. Stool cultures pending. Continue IV antibiotic. If cultures remain negative, consider switching back to by mouth prophylactic regimen tomorrow. Current Visit: Yes Status: Acute Priority: High Code(s): D70.9 - NEUTROPENIA, UNSPECIFIED; R50.81 - FEVER PRESENTING WITH CONDITIONS CLASSIFIED ELSEWHERE SNOMED Code(s): 269300917 (2) Pancytopenia due to antineoplastic chemotherapy Narrative/Plan: Counts are in a safe range today, not requiring transfusion he did continue to monitor inpatient, and outpatient with transfusion support as needed to keep hemoglobin greater than 7 and platelets greater than 10 Current Visit: Yes Status: Chronic Priority: Medium Code(s): D61.810 - ANTINEOPLASTIC CHEMOTHERAPY INDUCED PANCYTOPENIA; T45.1X5A - ADVERSE EFFECT OF ANTINEOPLASTIC AND IMMUNOSUP DRUGS, INIT SNOMED Code(s): 091373913324256 (3) Acute erythroid leukemia Narrative/Plan: Resume Venetoclax once infection concerns are resolved. Patient will also need to to have repeat bone marrow aspiration biopsy scheduled as an outpatient Current Visit: Yes Status: Acute Priority: High Code(s): C94.00 - ACUTE ERYTHROID LEUKEMIA, NOT HAVING ACHIEVED REMISSION SNOMED Code(s): 94470358
[2019-06-22] MEDS: DAPTOmycin 500 MG in SODIUM CHLORIDE 0.9% 50 ML IVPB SCH (23:18)
[2019-06-23] MEDS: SODIUM CHLORIDE 0.9% 1,000 ML IV SCH ×3 (03:17→21:06)
[2019-06-23 06:56] LABS: Glucose,Whole Blood 108 mg/dL (75-99)
--- NOTE | 2019-06-23 06:59 | PN ---
PROGRESS NOTE DATE OF SERVICE: 06/22/2019 REASON FOR FOLLOWUP: Febrile, neutropenia. INTERVAL HISTORY: The patient overall fever pattern has improved. No temperature has been recorded since admission to the hospital. Patient has been breathing comfortably. Denies having any chest pain or shortness of breath. Occasional cough. No nausea, vomiting. No Abdominal pain. No diarrhea. PHYSICAL EXAMINATION: Blood pressure 119/57, pulse of 79, temperature 97.9. He is 97% on room air. General description is a middle-aged male lying in bed in no distress. RESPIRATORY SYSTEM: Unlabored breathing, clear to auscultation anteriorly. HEART : S1, S2. Regular rate and rhythm. ABDOMEN: Soft, no tenderness. LABS: Hemoglobin 8.7, white count 0.6, BUN of 10, creatinine 0.62. Blood culture has been negative. DIAGNOSTIC IMPRESSION AND PLAN: Patient with febrile neutropenia. This patient recently completed his chemotherapy for leukemia. Patient currently of his source of infection. Cultures are currently pending. Fever responding to Zosyn and the daptomycin to continue him and monitor his clinical course closely. MMODL / IJN: [id number] /
[2019-06-23] MEDS: INSULIN ASPART (NovoLOG) 100 UNIT/ML VIAL SQ SCH ×4 (07:35→21:02)
[2019-06-23 07:40] LABS: HCT 24.8 % (39.0-53.0); HGB 8.6 gm/dL (13.0-17.5); Hyperchromasia Slight; MCH 28.6 pg (25.0-35.0); MCHC 34.7 g/dL (31.0-37.0); MCV 82.6 fL (80.0-100.0); Mean Platelet Volume 7.3; Poikilocytosis Moderate; RDW 14.9 % (11.5-15.5)
[2019-06-23 07:45] LABS: WBC 0.6 k/uL (3.8-10.6)
[2019-06-23 07:47] LABS: ALT 38 U/L (4-49); AST 21 U/L (17-59); African American GFR (CKD) >90 (>60 ml/min/1.73 sqM); Alkaline Phosphatase 77 U/L (38-126); Anion Gap 7 mmol/L; Blood Urea Nitrogen 13 mg/dL (9-20); Calcium 8.8 mg/dL (8.4-10.2); Carbon Dioxide 28 mmol/L (22-30); Chloride 105 mmol/L (98-107); Glucose 100 mg/dL (74-99); Non-African American GFR(CKD) >90 (>60 ml/min/1.73 sqM); Potassium 4.6 mmol/L (3.5-5.1); Sodium 140 mmol/L (137-145); Total Protein 6.9 g/dL (6.3-8.2)
[2019-06-23 08:11] LABS: Platelet Count 11 k/uL (150-450)
[2019-06-23] MEDS: FLUTICASONE 110 MCG INHALER INHALATION SCH ×2 (08:35→20:54)
[2019-06-23] MEDS: PIPERACILLIN-TAZOBACTAM 3.375 GM in SODIUM CHLORIDE 0.9% 100 ML IVPB SCH ×2 (08:38→17:19)
[2019-06-23] MEDS: DIVALPROEX 500 MG TABLET.DR PO SCH ×2 (08:39→21:02)
[2019-06-23] MEDS: PANTOPRAZOLE 40 MG TABLET PO SCH (08:39)
[2019-06-23] MEDS: ACYCLOVIR 200 MG CAP PO SCH ×2 (08:39→21:01)
[2019-06-23 11:25] LABS: Glucose,Whole Blood 106 mg/dL (75-99)
--- NOTE | 2019-06-23 11:59 | P.PN ---
Subjective Progress Note Date: 06/23/19 This is a 48-year-old male patient who presented with complaints of fever. Patient has been on chemotherapy for acute erythroid leukemia. Patient was recently admitted for inpatient chemotherapy and discharged on 06/09/2019. Patient reports that the fever started last night he presented to the ER. Yasmin benedict does report occasional diarrhea. Patient also reports that he had a bloody bowel movement yesterday. Patient denies any headaches body aches nausea or vomiting. Patient denies any acute respiratory symptoms. Patient denies shortness of breath or chest discomfort. Additional medical history includes acute erythroid leukemia, diabetes mellitus type 2, hypertension, seizure anxiety depression and bipolar. EKG completed showing normal sinus rhythm. Normal EKG. Chest x-ray completed showing no acute process. Influenza negative. White blood cell is 0.6, platelets 10.0 lactic acid initially elevated troponin for repeat lactic 1.5. UA negative. Patient started on daptomycin and IV Zosyn. Infectious disease and oncology service is consulted. Stool for occult blood will be ordered. Hemoglobin currently stable at 8.8 On 06/21/2019 patient was seen and examined on the medical floor he is alert and oriented 3 in no apparent distress he is complaining of occasional headache oth erwise he denies any complaints there is no fever or chills no dizziness no chest pain no shortness of breath no cough no nausea or vomiting no abdominal pain no diarrhea no burning with urination no frequency or urgency and no hematuria On 06/22/2019 patient was seen and examined on the medical floor he is doing well and denies any complaints at this time there is no fever or chills no headache or dizziness no chest pain no shortness of breath no cough no nausea or vomiting no abdominal pain no diarrhea and no urinary symptoms On 06/23/2019 patient is alert and oriented 3. Patient did have elevated temp last night. Infectious disease and oncology are following. Patient remains on IV antibiotics. Patient denies any chest pain or shortness of breath. Patient denies nausea vomiting or diarrhea. Patient denies any urinary burning or frequency Objective - Vital Signs Vital signs: Vital Signs Temp 98.0 F 06/23/19 05:06 Pulse 83 06/23/19 04:36 Resp 16 06/23/19 04:36 BP 111/59 06/23/19 04:36 Pulse Ox 99 06/23/19 04:36 Intake & Output 06/22/19 06/23/19 06/23/19 18:59 06:59 18:59 Intake Total 3160 2370 Output Total 800 2300 Balance 2360 70 Intake: Intake, IV Titration 1400 1190 Amount DAPTOmycin 500 mg In 50 Sodium Chloride 0.9% 50 ml @ 100 mls/hr IVPB Q24H [facility] Rx#:[id number] Piperacillin-Tazobactam 3 100 100 .375 gm In Sodium Chloride 0.9% 100 ml @ 25 mls/hr IVPB Q8HR [facility] Rx# :[id number] Sodium Chloride 0.9% 1, 1300 1040 000 ml @ 130 mls/hr IV . Q7H42M [facility] Rx#:[id number] Oral 1760 1180 Output: Urine 800 2300 Other: Voiding Method Toilet Urinal Urinal # Voids 4 2 - Exam In general patient is alert and oriented 3 in no apparent distress Head normocephalic and atraumatic Neck supple no JVD no goiter Lungs clear to auscultation bilaterally no wheezing or crackles Heart regular rate and rhythm S1-S2, no rub or gallop Abdomen is soft nontender nondistended positive bowel sounds no hepatos plenomegaly Extremities no edema no cyanosis or clubbing Neuro no gross focal neurological deficit - Labs CBC & Chem 7: 06/23/19 06:47 06/23/19 06:47 Labs: Abnormal Lab Results - Last 24 Hours (Table) 06/22/19 06/23/19 06/23/19 Range/Units 19:52 06:47 06:47 WBC 0.6 L* (3.8-10.6) k/uL RBC 3.00 L (4.30-5.90) m/uL Hgb 8.6 L (13.0-17.5) gm/dL Hct 24.8 L (39.0-53.0) % Plt Count 11 L* (150-450) k/uL Glucose 100 H (74-99) mg/dL POC Glucose (mg/dL) 138 H (75-99) mg/dL 06/23/19 06/23/19 Range/Units 06:56 11:24 WBC (3.8-10.6) k/uL RBC (4.30-5.90) m/uL Hgb (13.0-17.5) gm/dL Hct (39.0-53.0) % Plt Count (150-450) k/uL Glucose (74-99) mg/dL POC Glucose (mg/dL) 108 H 106 H (75-99) mg/dL Microbiology - Last 24 Hours (Table) 06/19/19 21:00 Blood Culture - Preliminary Blood No Growth after 72 hours Assessment and Plan Assessment: 1. Febrile illness with elevated lactic acid. Patient has been receiving chemotherapy pancytopenia secondary to chemotherapy will consult infectious disease. Chest x-ray negative. Influenza negative. UA negative. Blood cultures have been ordered. Lactic acid has improved to 1.5 patient currently on daptomycin and Zosyn. Blood Culture currently showing no growth 2. Acute erythroid leukemia. Patient recently completed inpatient chemotherapy and discharged on 06/09/2019. Oncology services have been consulted 3. Possible GI bleed. Platelet with 10. Stool for occult blood has been ordered. Hemoglobin stable at 8.8. Stool for occult blood negative 4. Diabetes mellitus type 2. Metformin on hold sliding scale insulin ordered 5. Essential hypertension. Home meds resumed 6. History of bipolar depression. Home meds resumed 7. History of seizures. 8. Pancytopenia secondary to chemotherapy DVT prophylaxis SCDs. GI prophylaxis Pepcid Oncology and infectious disease consulted Patient on daptomycin and Zosyn for IV antibiotics I performed an examination of the patient and discussed their management with the Nurse Practitioner. I have reviewed the Nurse Practitioner's notes and agree with the documented findings and plan of care
[2019-06-23] MEDS: SALT AND SODA MOUTHWASH 1,000 ML PO SCH ×4 (12:57→23:21)
[2019-06-23] MEDS: VORICONAZOLE 200 MG TAB PO SCH (12:57)
--- NOTE | 2019-06-23 15:51 | P.PN ---
Subjective Progress Note Date: 06/23/19 Principal diagnosis: Acute erythroid leukemia This is a 48-year-old male patient who presented with complaints of fever. Patient has been on chemotherapy for acute erythroid leukemia. He currently denies changes in thought process, difficulty in breathing, cough, chest pain, p alpitations, light headedness, decrease in appetite, nausea, vomiting, diarrhea, constipation, changes in urination, or pain. Objective - Vital Signs Vital signs: Vital Signs Temp 98.6 F 06/23/19 12:00 Pulse 83 06/23/19 12:00 Resp 17 06/23/19 12:00 BP 118/66 06/23/19 12:00 Pulse Ox 97 06/23/19 12:00 Intake & Output 06/22/19 06/23/19 06/23/19 18:59 06:59 18:59 Intake Total 3160 2370 Output Total 800 2300 900 Balance 2360 70 -900 Intake: Intake, IV Titration 1400 1190 Amount DAPTOmycin 500 mg In 50 Sodium Chloride 0.9% 50 ml @ 100 mls/hr IVPB Q24H [facility] Rx#:[id number] Piperacillin-Tazobactam 3 100 100 .375 gm In Sodium Chloride 0.9% 100 ml @ 25 mls/hr IVPB Q8HR [facility] Rx# :[id number] Sodium Chloride 0.9% 1, 1300 1040 000 ml @ 130 mls/hr IV . Q7H42M [facility] Rx#:[id number] Oral 1760 1180 Output: Urine 800 2300 900 Other: Voiding Method Toilet Urinal Urinal # Voids 4 2 6 - Constitutional General appearance: Present: average body habitus, cooperative, no acute distress - EENT EENT Comment(s): dentures Eyes: Present: anicteric sclerae, EOMI ENT: Present: hearing grossly normal - Neck Neck: Present: normal ROM - Respiratory Respiratory: bilateral: CTA - Cardiovascular Rhythm: regular Heart sounds: normal: S1, S2 Abnormal Heart Sounds: Absent: systolic murmur, diastolic murmur, rub, S3 Gallop, S4 Gallop, click, other - Peripheral edema leg Peripheral Edema: bilateral: None - Gastrointestinal General gastrointestinal: Present: normal bowel sounds, soft. Absent: absent bowel sounds, decreased bowel sounds, distended, hepatomegaly, hyperactive bowel sounds, organomegaly, rigid, scaphoid, splenomegaly, tenderness, umbilical hernia, ventral hernia - Integumentary Integumentary: Present: normal, normal turgor, pale - Neurologic Neurologic: Present: CNII-XII intact - Musculoskeletal Musculoskeletal: Present: strength equal bilaterally - Psychiatric Psychiatric: Present: A&O x's 3, appropriate affect, intact judgment & insight - Labs CBC & Chem 7: 06/23/19 06:47 06/23/19 06:47 Labs: Abnormal Lab Results - Last 24 Hours (Table) 06/22/19 06/23/19 06/23/19 Range/Units 19:52 06:47 06:47 WBC 0.6 L* (3.8-10.6) k/uL RBC 3.00 L (4.30-5.90) m/uL Hgb 8.6 L (13.0-17.5) gm/dL Hct 24.8 L (39.0-53.0) % Plt Count 11 L* (150-450) k/uL Glucose 100 H (74-99) mg/dL POC Glucose (mg/dL) 138 H (75-99) mg/dL 06/23/19 06/23/19 Range/Units 06:56 11:24 WBC (3.8-10.6) k/uL RBC (4.30-5.90) m/uL Hgb (13.0-17.5) gm/dL Hct (39.0-53.0) % Plt Count (150-450) k/uL Glucose (74-99) mg/dL POC Glucose (mg/dL) 108 H 106 H (75-99) mg/dL Microbiology - Last 24 Hours (Table) 06/19/19 21:00 Blood Culture - Preliminary Blood No Growth after 72 hours Assessment and Plan (1) Febrile neutropenia Narrative/Plan: Pancultures ordered and pending. Preliminary blood cultures show no growth after 72 hours. Close monitoring of vital signs. Recorded temperature of 100.9 previous night on 06/22/19. Antibiotic, antiviral and antifungal medications ordered. No G-CSF, patient is an acute myeloid leukemia not in confirmed remission Due for 21 day bone marrow this week. Requesting IR as pt has bilateral implants for pain mgmt Current Visit: Yes Status: Acute Priority: High Code(s): D70.9 - NEUTROPENIA, UNSPECIFIED; R50.81 - FEVER PRESENTING WITH CONDITIONS CLASSIFIED ELSEWHERE SNOMED Code(s): 720972052 (2) Pancytopenia due to antineoplastic chemotherapy Narrative/Plan: Conservative transfusions as patient is a transplant candidate. Patient requires irradiated blood products. Transfuse to keep hemoglobin above 6.9. Hemoglobin today is 8.6. Transfuse to keep platelets above 10,000 unless symptomatic. Platelets today 11,000. No intervention for low white blood cell count. Current Visit: Yes Status: Chronic Priority: Medium Code(s): D61.810 - ANTINEOPLASTIC CHEMOTHERAPY INDUCED PANCYTOPENIA; T45.1X5A - ADVERSE EFFECT OF ANTINEOPLASTIC AND IMMUNOSUP DRUGS, INIT SNOMED Code(s): 556202788923827 (3) Acute erythroid leukemia Narrative/Plan: Patient is currently in cycle 1 of oral venetoclax and IV Vidaza once a month. Plan is to continue therapy to keep patient in remission so that he can advance to transplant. Hold venetoclax at this time. Per Tx plan pt is to have BM Mx and asp 21 days after treatment. This is due this week. Will contact IR to plan Current Visit: Yes Status: Acute Priority: High Code(s): C94.00 - ACUTE ERYTHROID LEUKEMIA, NOT HAVING ACHIEVED REMISSION SNOMED Code(s): 68205809 Plan: Case was discussed with Internal Medicine nurse practitioner. Time with Patient: Less than 30
[2019-06-23 17:22] LABS: Glucose,Whole Blood 142 mg/dL (75-99)
[2019-06-23 20:08] LABS: Glucose,Whole Blood 128 mg/dL (75-99)
[2019-06-23] MEDS: ACETAMINOPHEN TAB 325 MG TAB PO PRN (20:13)
[2019-06-23] MEDS: METOPROLOL TARTRATE 25 MG TAB PO SCH (21:02)
[2019-06-23] MEDS: MONTELUKAST 10 MG TAB PO SCH (21:02)
[2019-06-23] MEDS: VENLAFAXINE HCL ER 150 MG CAP PO SCH (21:05)
[2019-06-23] MEDS: DAPTOmycin 500 MG in SODIUM CHLORIDE 0.9% 50 ML IVPB SCH (23:21)
[2019-06-23] MEDS: CEFEPIME 2 GM in SODIUM CHLORIDE 0.9% 100 ML IVPB SCH (23:21)
[2019-06-24] MEDS: SODIUM CHLORIDE 0.9% 1,000 ML IV SCH ×3 (02:09→19:25)
[2019-06-24] MEDS: SALT AND SODA MOUTHWASH 1,000 ML PO SCH ×5 (05:01→23:38)
--- NOTE | 2019-06-24 05:08 | PN ---
PROGRESS NOTE DATE OF SERVICE: 06/23/2019 REASON FOR FOLLOWUP: Febrile neutropenia. INTERVAL HISTORY: The patient did spike a fever of 100.9 last night and one this evening. The patient denies having any chills with it. No urinary symptoms. No chest pain, shortness of breath or cough. No nausea or vomiting. No abdominal pain. No diarrhea. PHYSICAL EXAMINATION: Blood pressure 122/63 with a pulse of 98, temperature 101.3. He is 98% on room air. General description is a middle-aged male lying in bed in no distress. RESPIRATORY SYSTEM: Unlabored breathing, clear to auscultation. HEART: S1, S2. Regular rate and rhythm. ABDOMEN: Soft, no tenderness. LABS: White count 0.6. Culture has been negative so far. DIAGNOSTIC IMPRESSION AND PLAN: Patient with febrile neutropenia, now with persistent fever daily spikes. Blood cultures will be repeated. Patient is currently covered with daptomycin and Zosyn. We will switch him over to cefepime and continue with supportive care. MMODL / IJN: [id number] /
[2019-06-24 06:52] LABS: Glucose,Whole Blood 118 mg/dL (75-99)
[2019-06-24] MEDS: INSULIN ASPART (NovoLOG) 100 UNIT/ML VIAL SQ SCH ×4 (07:29→20:51)
[2019-06-24] MEDS: CEFEPIME 2 GM in SODIUM CHLORIDE 0.9% 100 ML IVPB SCH ×2 (09:00→16:46)
[2019-06-24] MEDS: DIVALPROEX 500 MG TABLET.DR PO SCH ×2 (09:00→20:51)
[2019-06-24] MEDS: ACYCLOVIR 200 MG CAP PO SCH ×2 (09:01→20:51)
[2019-06-24] MEDS: PANTOPRAZOLE 40 MG TABLET PO SCH (09:01)
[2019-06-24 09:44] LABS: Prothrombin Time 10.4 sec (9.0-12.0)
[2019-06-24] MEDS: FLUTICASONE 110 MCG INHALER INHALATION SCH ×2 (09:53→20:11)
[2019-06-24 10:20] LABS: HCT 23.3 % (39.0-53.0); MCH 28.6 pg (25.0-35.0); MCHC 34.6 g/dL (31.0-37.0); MCV 82.8 fL (80.0-100.0); Mean Platelet Volume 7.5; Poikilocytosis Moderate; RBC 2.81 m/uL (4.30-5.90); RDW 15.1 % (11.5-15.5)
[2019-06-24 10:23] LABS: Platelet Count 9 k/uL (150-450); WBC 0.5 k/uL (3.8-10.6)
[2019-06-24 10:38] LABS: ALT 31 U/L (4-49); AST 20 U/L (17-59); African American GFR (CKD) >90 (>60 ml/min/1.73 sqM); Albumin 3.9 g/dL (3.5-5.0); Alkaline Phosphatase 73 U/L (38-126); Anion Gap 10 mmol/L; Blood Urea Nitrogen 13 mg/dL (9-20); Carbon Dioxide 25 mmol/L (22-30); Chloride 106 mmol/L (98-107); Glucose 184 mg/dL (74-99); Non-African American GFR(CKD) >90 (>60 ml/min/1.73 sqM); Potassium 4.4 mmol/L (3.5-5.1); Sodium 141 mmol/L (137-145); Total Bilirubin 0.8 mg/dL (0.2-1.3); Total Protein 6.7 g/dL (6.3-8.2)
[2019-06-24] MEDS: VORICONAZOLE 200 MG TAB PO SCH (11:15)
[2019-06-24 11:26] LABS: Glucose,Whole Blood 111 mg/dL (75-99)
--- NOTE | 2019-06-24 11:48 | P.PN ---
Subjective Progress Note Date: 06/24/19 This is a 48-year-old male patient who presented with complaints of fever. Patient has been on chemotherapy for acute erythroid leukemia. Patient was recently admitted for inpatient chemotherapy and discharged on 06/09/2019. Patient reports that the fever started last night he presented to the ER. Yasmin benedict does report occasional diarrhea. Patient also reports that he had a bloody bowel movement yesterday. Patient denies any headaches body aches nausea or vomiting. Patient denies any acute respiratory symptoms. Patient denies shortness of breath or chest discomfort. Additional medical history includes acute erythroid leukemia, diabetes mellitus type 2, hypertension, seizure anxiety depression and bipolar. EKG completed showing normal sinus rhythm. Normal EKG. Chest x-ray completed showing no acute process. Influenza negative. White blood cell is 0.6, platelets 10.0 lactic acid initially elevated troponin for repeat lactic 1.5. UA negative. Patient started on daptomycin and IV Zosyn. Infectious disease and oncology service is consulted. Stool for occult blood will be ordered. Hemoglobin currently stable at 8.8 On 06/21/2019 patient was seen and examined on the medical floor he is alert and oriented 3 in no apparent distress he is complaining of occasional headache oth erwise he denies any complaints there is no fever or chills no dizziness no chest pain no shortness of breath no cough no nausea or vomiting no abdominal pain no diarrhea no burning with urination no frequency or urgency and no hematuria On 06/22/2019 patient was seen and examined on the medical floor he is doing well and denies any complaints at this time there is no fever or chills no headache or dizziness no chest pain no shortness of breath no cough no nausea or vomiting no abdominal pain no diarrhea and no urinary symptoms On 06/23/2019 patient is alert and oriented 3. Patient did have elevated temp last night. Infectious disease and oncology are following. Patient remains on IV antibiotics. Patient denies any chest pain or shortness of breath. Patient denies nausea vomiting or diarrhea. Patient denies any urinary burning or frequency On 06/24/2019 patient is alert and oriented 3. Patient continues have elevated temperature. Per oncology service is planning bone marrow biopsy for this week. IR consult has been placed. Antibiotics have been adjusted per infectious disease. Patient denies chest pain or shortness of breath. Patient denies nausea vomiting or diarrhea. Patient denies any urinary burning or frequency Objective - Vital Signs Vital signs: Vital Signs Temp 98.2 F 06/24/19 11:15 Pulse 79 06/24/19 11:15 Resp 18 06/24/19 11:15 BP 120/67 06/24/19 11:15 Pulse Ox 99 06/24/19 11:15 Intake & Output 06/23/19 06/24/19 06/24/19 18:59 06:59 18:59 Intake Total 620 2110 Output Total 2100 1400 900 Balance -1480 710 -900 Intake: Intake, IV Titration 620 930 Amount Cefepime 2 gm In Sodium 100 Chloride 0.9% 100 ml @ 200 mls/hr IVPB Q8HR [facility] Rx#:[id number] DAPTOmycin 500 mg In 50 Sodium Chloride 0.9% 50 ml @ 100 mls/hr IVPB Q24H [facility] Rx#:[id number] Piperacillin-Tazobactam 3 100 .375 gm In Sodium Chloride 0.9% 100 ml @ 25 mls/hr IVPB Q8HR [facility] Rx# :[id number] Sodium Chloride 0.9% 1, 520 780 000 ml @ 130 mls/hr IV . Q7H42M [facility] Rx#:[id number] Oral 1180 Output: Urine 2100 1400 900 Other: Voiding Method Urinal Urinal # Voids 6 1 2 - Exam In general patient is alert and oriented 3 in no apparent distress Head normocephalic and atraumatic Neck supple no JVD no goiter Lungs clear to auscultation bilaterally no wheezing or crackles Heart regular rate and rhythm S1-S2, no rub or gallop Abdomen is soft nontender nondistended positive bowel sounds no hepatosplenomegaly Extremities no edema no cyanosis or clubbing Neuro no gross focal neurological deficit - Labs CBC & Chem 7: 06/24/19 09:10 06/24/19 09:10 Labs: Abnormal Lab Results - Last 24 Hours (Table) 06/23/19 06/23/19 06/23/19 Range/Units 06:47 17:21 20:03 WBC (3.8-10.6) k/uL RBC (4.30-5.90) m/uL Hgb (13.0-17.5) gm/dL Hct (39.0-53.0) % Plt Count (150-450) k/uL Creatinine (0.66-1.25) mg/dL Glucose (74-99) mg/dL POC Glucose (mg/dL) 142 H 128 H (75-99) mg/dL C-Reactive Protein 41.3 H (<10.0) mg/L 06/24/19 06/24/19 06/24/19 Range/Units 06:51 09:10 09:10 WBC 0.5 L* (3.8-10.6) k/uL RBC 2.81 L (4.30-5.90) m/uL Hgb 8.0 L (13.0-17.5) gm/dL Hct 23.3 L (39.0-53.0) % Plt Count 9 L* (150-450) k/uL Creatinine 0.58 L (0.66-1.25) mg/dL Glucose 184 H (74-99) mg/dL POC Glucose (mg/dL) 118 H (75-99) mg/dL C-Reactive Protein (<10.0) mg/L 06/24/19 Range/Units 11:14 WBC (3.8-10.6) k/uL RBC (4.30-5.90) m/uL Hgb (13.0-17.5) gm/dL Hct (39.0-53.0) % Plt Count (150-450) k/uL Creatinine (0.66-1.25) mg/dL Glucose (74-99) mg/dL POC Glucose (mg/dL) 111 H (75-99) mg/dL C-Reactive Protein (<10.0) mg/L Microbiology - Last 24 Hours (Table) 06/19/19 21:00 Blood Culture - Preliminary Blood No Growth after 96 hours Assessment and Plan Assessment: 1. Febrile illness with elevated lactic acid. Patient has been receiving chemotherapy pancytopenia secondary to chemotherapy will consult infectious disease. Chest x-ray negative. Influenza negative. UA negative. Blood cultures have been ordered. Lactic acid has improved to 1.5 patient currently on daptomycin and Zosyn. Blood Culture currently showing no growth 2. Acute erythroid leukemia. Patient recently completed inpatient chemotherapy and discharged on 06/09/2019. Oncology services have been consulted. Planning bone marrow biopsy for later this week. Interventional radiology has been con sulted 3. Possible GI bleed. Platelet with 10. Stool for occult blood has been ordered. Hemoglobin stable at 8.8. Stool for occult blood negative 4. Diabetes mellitus type 2. Metformin on hold sliding scale insulin ordered 5. Essential hypertension. Home meds resumed 6. History of bipolar depression. Home meds resumed 7. History of seizures. 8. Pancytopenia secondary to chemotherapy DVT prophylaxis SCDs. GI prophylaxis Pepcid Oncology and infectious disease consulted Patient on daptomycin and Zosyn for IV antibiotics I performed an examination of the patient and discussed their management with the Nurse Practitioner. I have reviewed the Nurse Practitioner's notes and a gree with the documented findings and plan of care
[2019-06-24 17:01] LABS: Glucose,Whole Blood 112 mg/dL (75-99)
--- NOTE | 2019-06-24 17:34 | P.PN ---
Subjective Progress Note Date: 06/24/19 Principal diagnosis: Acute erythroid leukemia In f/u today pt had 101.3F last night, he denies symptoms of infection, rash, soreness, vomiting, diarrhea. Objective - Vital Signs Vital signs: Vital Signs Temp 98.2 F 06/24/19 11:15 Pulse 79 06/24/19 11:15 Resp 18 06/24/19 11:15 BP 120/67 06/24/19 11:15 Pulse Ox 99 06/24/19 11:15 Intake & Output 06/23/19 06/24/19 06/24/19 18:59 06:59 18:59 Intake Total 620 2110 1040 Output Total 2100 1400 2400 Balance -1480 710 -1360 Intake: Intake, IV Titration 169 824 7233 Amount Cefepime 2 gm In Sodium 100 Chloride 0.9% 100 ml @ 200 mls/hr IVPB Q8HR [facility] Rx#:[id number] DAPTOmycin 500 mg In 50 Sodium Chloride 0.9% 50 ml @ 100 mls/hr IVPB Q24H [facility] Rx#:[id number] Piperacillin-Tazobactam 3 100 .375 gm In Sodium Chloride 0.9% 100 ml @ 25 mls/hr IVPB Q8HR [facility] Rx# :[id number] Sodium Chloride 0.9% 1, 808 218 2860 000 ml @ 130 mls/hr IV . Q7H42M [facility] Rx#:[id number] Oral 1180 Output: Urine 2100 1400 2400 Other: Voiding Method Urinal Urinal # Voids 6 1 1 - Constitutional General appearance: Present: average body habitus, cooperative, no acute distress - EENT Eyes: Present: anicteric sclerae ENT: Present: hearing grossly normal, normal oropharynx - Respiratory Respiratory: bilateral: CTA - Cardiovascular Rhythm: regular Heart sounds: normal: S1, S2 Abnormal Heart Sounds: Absent: systolic murmur, diastolic murmur, rub, S3 Gall op, S4 Gallop, click, other - Peripheral edema leg Peripheral Edema: bilateral: None - Gastrointestinal General gastrointestinal: Present: normal bowel sounds, soft. Absent: absent bowel sounds, decreased bowel sounds, distended, hepatomegaly, hyperactive bowel sounds, organomegaly, rigid, scaphoid, splenomegaly, tenderness, umbilical hernia, ventral hernia - Integumentary Integumentary: Present: pale - Neurologic Neurologic: Present: CNII-XII intact - Musculoskeletal Musculoskeletal: Present: strength equal bilaterally - Psychiatric Psychiatric: Present: A&O x's 3, appropriate affect, intact judgment & insight - Labs CBC & Chem 7: 06/24/19 09:10 06/24/19 09:10 Labs: Abnormal Lab Results - Last 24 Hours (Table) 06/23/19 06/23/19 06/23/19 Range/Units 06:47 06:47 20:03 WBC (3.8-10.6) k/uL RBC (4.30-5.90) m/uL Hgb (13.0-17.5) gm/dL Hct (39.0-53.0) % Plt Count (150-450) k/uL Creatinine (0.66-1.25) mg/dL Glucose (74-99) mg/dL POC Glucose (mg/dL) 128 H (75-99) mg/dL C-Reactive Protein 41.3 H (<10.0) mg/L Procalcitonin 0.10 H (0.02-0.09) ng/mL 06/24/19 06/24/19 06/24/19 Range/Units 06:51 09:10 09:10 WBC 0.5 L* (3.8-10.6) k/uL RBC 2.81 L (4.30-5.90) m/uL Hgb 8.0 L (13.0-17.5) gm/dL Hct 23.3 L (39.0-53.0) % Plt Count 9 L* (150-450) k/uL Creatinine 0.58 L (0.66-1.25) mg/dL Glucose 184 H (74-99) mg/dL POC Glucose (mg/dL) 118 H (75-99) mg/dL C-Reactive Protein (<10.0) mg/L Procalcitonin (0.02-0.09) ng/mL 06/24/19 06/24/19 Range/Units 11:14 16:49 WBC (3.8-10.6) k/uL RBC (4.30-5.90) m/uL Hgb (13.0-17.5) gm/dL Hct (39.0-53.0) % Plt Count (150-450) k/uL Creatinine (0.66-1.25) mg/dL Glucose (74-99) mg/dL POC Glucose (mg/dL) 111 H 112 H (75-99) mg/dL C-Reactive Protein (<10.0) mg/L Procalcitonin (0.02-0.09) ng/mL Microbiology - Last 24 Hours (Table) 06/19/19 21:00 Blood Culture - Preliminary Blood No Growth after 96 hours Assessment and Plan (1) Febrile neutropenia Narrative/Plan: Pancultures ordered and negative, fever last night, new cultures drawn. ID id following Close monitoring of vital signs. Antibiotic, antiviral and antifungal medications ordered. 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 Patient requires irradiated blood products. Transfuse to keep hemoglobin above 6.9. Hemoglobin today is 8. Transfuse to keep platelets above 10,000 unless symptomatic. Platelets today 9,000, irradiated SDP ordered. No intervention for low white blood cell count. Current Visit: Yes Status: Chronic Priority: Medium Code(s): D61.810 - ANTINEOPLASTIC CHEMOTHERAPY INDUCED PANCYTOPENIA; T45.1X5A - ADVERSE EFFECT OF ANTINEOPLASTIC AND IMMUNOSUP DRUGS, INIT SNOMED Code(s): 876309889442090 (3) Acute erythroid leukemia Narrative/Plan: Patient is currently in cycle 1 of oral venetoclax and IV Vidaza once a month. Plan is to continue therapy to keep patient in remission so that he can advance to transplant. Hold venetoclax at this time. Per Tx plan pt is to have BM Mx and asp [address] Rojas discussed case with IR who is doing the BM. Plan is for tomorrow. Current Visit: Yes Status: Acute Priority: High Code(s): C94.00 - ACUTE ERYTHROID LEUKEMIA, NOT HAVING ACHIEVED REMISSION SNOMED Code(s): 52064295
[2019-06-24 20:17] LABS: Glucose,Whole Blood 120 mg/dL (75-99)
[2019-06-24] MEDS: METOPROLOL TARTRATE 25 MG TAB PO SCH (20:51)
[2019-06-24] MEDS: MONTELUKAST 10 MG TAB PO SCH (20:51)
[2019-06-24] MEDS: ACETAMINOPHEN TAB 325 MG TAB PO PRN (20:51)
[2019-06-24] MEDS: VENLAFAXINE HCL ER 150 MG CAP PO SCH (21:28)
--- NOTE | 2019-06-24 22:53 | PN ---
PROGRESS NOTE DATE OF SERVICE: 06/24/2019 REASON FOR FOLLOWUP: Febrile neutropenia. INTERVAL HISTORY: The patient did have another fever last night of 101.3. Blood culture was repeated this morning. The patient has been afebrile, has been breathing comfortably. Currently denies having any headache. No chest pain, shortness of breath or cough. No nausea, no vomiting. No abdominal pain. No diarrhea. PHYSICAL EXAMINATION: Blood pressure 115/58 with a pulse of 78, temperature 98.1. He is 96% on room air. General description is a middle-aged male lying in bed in no distress. RESPIRATORY SYSTEM: Unlabored breathing. Clear to auscultation anteriorly. HEART: S1, S2. Regular rate and rhythm. ABDOMEN: Soft. No tenderness. EXTREMITIES: No edema of the feet. LABS: Hemoglobin 8 with a white count of 0.5, BUN of 13, creatinine 0.58. Blood culture has been negative so far. DIAGNOSTIC IMPRESSION AND PLAN: Patient with febrile neutropenia in this patient who did have recent chemo for his underlying . Patient currently with no definite obvious focal source of infection. Stool studies have been negative. Blood culture has been negative. Patient is covered with cefepime and daptomycin; to continue, and monitor his clinical course closely. Continue supportive care. MMODL / IJN: [id number] /
[2019-06-24] MEDS: DAPTOmycin 500 MG in SODIUM CHLORIDE 0.9% 50 ML IVPB SCH (23:37)
[2019-06-25] MEDS: CEFEPIME 2 GM in SODIUM CHLORIDE 0.9% 100 ML IVPB SCH ×3 (00:50→16:41)
[2019-06-25] MEDS: SODIUM CHLORIDE 0.9% 1,000 ML IV SCH ×4 (05:43→17:39)
[2019-06-25] MEDS: SALT AND SODA MOUTHWASH 1,000 ML PO SCH ×5 (05:43→23:24)
[2019-06-25] MEDS: INSULIN ASPART (NovoLOG) 100 UNIT/ML VIAL SQ SCH ×4 (07:01→21:11)
[2019-06-25 07:16] LABS: Glucose,Whole Blood 110 mg/dL (75-99)
[2019-06-25] MEDS: FLUTICASONE 110 MCG INHALER INHALATION SCH ×2 (08:03→21:29)
[2019-06-25 08:04] LABS: ALT 29 U/L (4-49); AST 19 U/L (17-59); African American GFR (CKD) >90 (>60 ml/min/1.73 sqM); Albumin 4.1 g/dL (3.5-5.0); Alkaline Phosphatase 76 U/L (38-126); Anion Gap 11 mmol/L; Blood Urea Nitrogen 13 mg/dL (9-20); Calcium 9.1 mg/dL (8.4-10.2); Carbon Dioxide 25 mmol/L (22-30); Chloride 106 mmol/L (98-107); Glucose 104 mg/dL (74-99); Non-African American GFR(CKD) >90 (>60 ml/min/1.73 sqM); Potassium 4.6 mmol/L (3.5-5.1); Sodium 142 mmol/L (137-145); Total Bilirubin 0.9 mg/dL (0.2-1.3)
[2019-06-25 08:25] LABS: HCT 23.3 % (39.0-53.0); HGB 7.9 gm/dL (13.0-17.5); Hyperchromasia Slight; MCH 27.9 pg (25.0-35.0); MCV 82.1 fL (80.0-100.0); Mean Platelet Volume 7.9; Poikilocytosis Moderate; RBC 2.84 m/uL (4.30-5.90)
[2019-06-25] MEDS: ACYCLOVIR 200 MG CAP PO SCH ×2 (08:37→21:09)
[2019-06-25] MEDS: PANTOPRAZOLE 40 MG TABLET PO SCH (08:37)
[2019-06-25] MEDS: DIVALPROEX 500 MG TABLET.DR PO SCH ×2 (08:37→21:09)
[2019-06-25 08:45] LABS: WBC 0.7 k/uL (3.8-10.6)
[2019-06-25 09:13] LABS: Platelet Count 22 k/uL (150-450); Reticulocyte % 2.8 % (0.5-2.0)
[2019-06-25 09:17] LABS: Anisocytosis (M) Present; Tear Drop Cells Present
--- NOTE | 2019-06-25 10:30 | P.PN ---
Subjective Progress Note Date: 06/25/19 This is a 48-year-old male patient who presented with complaints of fever. Patient has been on chemotherapy for acute erythroid leukemia. Patient was recently admitted for inpatient chemotherapy and discharged on 06/09/2019. Patient reports that the fever started last night he presented to the ER. Yasmin benedict does report occasional diarrhea. Patient also reports that he had a bloody bowel movement yesterday. Patient denies any headaches body aches nausea or vomiting. Patient denies any acute respiratory symptoms. Patient denies shortness of breath or chest discomfort. Additional medical history includes acute erythroid leukemia, diabetes mellitus type 2, hypertension, seizure anxiety depression and bipolar. EKG completed showing normal sinus rhythm. Normal EKG. Chest x-ray completed showing no acute process. Influenza negative. White blood cell is 0.6, platelets 10.0 lactic acid initially elevated troponin for repeat lactic 1.5. UA negative. Patient started on daptomycin and IV Zosyn. Infectious disease and oncology service is consulted. Stool for occult blood will be ordered. Hemoglobin currently stable at 8.8 On 06/21/2019 patient was seen and examined on the medical floor he is alert and oriented 3 in no apparent distress he is complaining of occasional headache oth erwise he denies any complaints there is no fever or chills no dizziness no chest pain no shortness of breath no cough no nausea or vomiting no abdominal pain no diarrhea no burning with urination no frequency or urgency and no hematuria On 06/22/2019 patient was seen and examined on the medical floor he is doing well and denies any complaints at this time there is no fever or chills no headache or dizziness no chest pain no shortness of breath no cough no nausea or vomiting no abdominal pain no diarrhea and no urinary symptoms On 06/23/2019 patient is alert and oriented 3. Patient did have elevated temp last night. Infectious disease and oncology are following. Patient remains on IV antibiotics. Patient denies any chest pain or shortness of breath. Patient denies nausea vomiting or diarrhea. Patient denies any urinary burning or frequency On 06/24/2019 patient is alert and oriented 3. Patient continues have elevated temperature. Per oncology service is planning bone marrow biopsy for this week. IR consult has been placed. Antibiotics have been adjusted per infectious disease. Patient denies chest pain or shortness of breath. Patient denies nausea vomiting or diarrhea. Patient denies any urinary burning or frequency On 06/25/2019 patient is alert and oriented 3. Patient will undergo bone marrow biopsy today with IR. Patient continues to deny any chest pain shortness breath. Patient denies nausea vomiting or diarrhea. Patient denies any urinary burning or frequency. Patient did have a low-grade temp last night 99.9 Objective - Vital Signs Vital signs: Vital Signs Temp 98.3 F 06/25/19 04:40 Pulse 75 06/25/19 04:40 Resp 18 06/25/19 04:40 BP 126/58 06/25/19 04:40 Pulse Ox 99 06/25/19 04:40 Intake & Output 06/24/19 06/25/19 06/25/19 18:59 06:59 18:59 Intake Total 1040 693 Output Total 2400 Balance -1360 693 Intake: Intake, IV Titration 1040 390 Amount Sodium Chloride 0.9% 1, 1040 390 000 ml @ 130 mls/hr IV . Q7H42M REPLACED BY [facility] Rx#:[id number] Blood Product 303 Platelet Irr Pheresis 2 303 Acda Unit [id number] Output: Urine 2400 Other: Voiding Method Urinal Urinal Urinal # Voids 1 4 - Exam In general patient is alert and oriented 3 in no apparent distress Head normocephalic and atraumatic Neck supple no JVD no goiter Lungs clear to auscultation bilaterally no wheezing or crackles Heart regular rate and rhythm S1-S2, no rub or gallop Abdomen is soft nontender nondistended positive bowel sounds no hepatosplenomegaly Extremities no edema no cyanosis or clubbing Neuro no gross focal neurological deficit - Labs CBC & Chem 7: 06/25/19 06:40 06/25/19 06:40 Labs: Abnormal Lab Results - Last 24 Hours (Table) 06/23/19 06/24/19 06/24/19 Range/Units 06:47 09:10 11:14 WBC (3.8-10.6) k/uL RBC (4.30-5.90) m/uL Hgb (13.0-17.5) gm/dL Hct (39.0-53.0) % Plt Count (150-450) k/uL Retic Count (0.5-2.0) % Creatinine 0.58 L (0.66-1.25) mg/dL Glucose 184 H (74-99) mg/dL POC Glucose (mg/dL) 111 H (75-99) mg/dL Procalcitonin 0.10 H (0.02-0.09) ng/mL 06/24/19 06/24/19 06/25/19 Range/Units 16:49 20:15 06:40 WBC 0.7 L* (3.8-10.6) k/uL RBC 2.84 L (4.30-5.90) m/uL Hgb 7.9 L (13.0-17.5) gm/dL Hct 23.3 L (39.0-53.0) % Plt Count 22 L D (150-450) k/uL Retic Count 2.8 H (0.5-2.0) % Creatinine (0.66-1.25) mg/dL Glucose (74-99) mg/dL POC Glucose (mg/dL) 112 H 120 H (75-99) mg/dL Procalcitonin (0.02-0.09) ng/mL 06/25/19 06/25/19 Range/Units 06:40 07:00 WBC (3.8-10.6) k/uL RBC (4.30-5.90) m/uL Hgb (13.0-17.5) gm/dL Hct (39.0-53.0) % Plt Count (150-450) k/uL Retic Count (0.5-2.0) % Creatinine 0.61 L (0.66-1.25) mg/dL Glucose 104 H (74-99) mg/dL POC Glucose (mg/dL) 110 H (75-99) mg/dL Procalcitonin (0.02-0.09) ng/mL Microbiology - Last 24 Hours (Table) 06/21/19 13:20 Stool Culture - Final Stool 06/23/19 23:24 Blood Culture - Preliminary Blood No Growth after 24 hours 06/19/19 21:00 Blood Culture - Preliminary Blood No Growth after 120 hours Assessment and Plan Assessment: 1. Febrile illness with elevated lactic acid. Patient has been receiving chemotherapy pancytopenia secondary to chemotherapy will consult infectious disease. Chest x-ray negative. Influenza negative. UA negative. Blood cultures have been ordered. Lactic acid has improved to 1.5 patient currently on daptomycin and Zosyn. Blood Culture currently showing no growth 2. Acute erythroid leukemia. Patient recently completed inpatient chemotherapy and discharged on 06/09/2019. Oncology services have been consulted. Planning bone marrow biopsy for later this week. Interventional radiology has been consulted. On 06/25/2019 patient to undergo bone marrow biopsy today 3. Possible GI bleed. Platelet with 10. Stool for occult blood has been ordered. Hemoglobin stable at 8.8. Stool for occult blood negative 4. Diabetes mellitus type 2. Metformin on hold sliding scale insulin ordered 5. Essential hypertension. Home meds resumed 6. History of bipolar depression. Home meds resumed 7. History of seizures. 8. Pancytopenia secondary to chemotherapy DVT prophylaxis SCDs. GI prophylaxis Pepcid Oncology and infectious disease consulted Patient on daptomycin and Zosyn for IV antibiotics I performed an examination of the patient and discussed their management with the Nurse Practitioner. I have reviewed the Nurse Practitioner's notes and agree with the documented findings and plan of care
[2019-06-25 11:55] LABS: Glucose,Whole Blood 101 mg/dL (75-99)
[2019-06-25] MEDS ORDERED: KETAMINE 10 MG/ML 20 ML VIAL ONE (13:14)
[2019-06-25] MEDS ORDERED: fentaNYL (PF) 50 MCG/ML 2 ML AMP ONE (13:14)
[2019-06-25] MEDS ORDERED: PROPOFOL 10 MG/ML 20 ML VIAL IV ONE (13:14)
[2019-06-25] MEDS ORDERED: MIDAZOLAM 2 MG/2 ML VIAL ONE (13:14)
--- NOTE | 2019-06-25 14:20 | CT ---
EXAMINATION TYPE: CT biopsy bone superficial DATE OF EXAM: 06/25/2019 HISTORY: Acute erythroid leukemia COMPARISON: None Maximal barrier technique was utilized, hand hygiene obtained with soap and water. The skin overlyin g a suitable path to the posterior right iliac crest was localized using CT and the overlying skin wa s prepped and draped. Lidocaine used for local anesthesia. A skin abena made with a scalpel. Using CT guidance, access was gained to the posterior right iliac crest with a 11-gauge core needle. Core specimen and aspirated submitted to laboratory. 2 pass(es) performed in all. Following the proce dure no immediate complications. The patient is discharged in stable condition in the care of anest hesia. Hemostasis achieved. IMPRESSION: SUCCESSFUL CT GUIDED CORE BONE MARROW ASPIRATION BIOPSY. PATHOLOGY PENDING. THIS PROCEDURE WAS PERF ORMED BY THE UNDERSIGNED.
[2019-06-25] MEDS: VORICONAZOLE 200 MG TAB PO SCH (14:46)
[2019-06-25 16:59] LABS: Glucose,Whole Blood 149 mg/dL (75-99)
[2019-06-25 21:04] LABS: Glucose,Whole Blood 125 mg/dL (75-99)
[2019-06-25] MEDS: ACETAMINOPHEN TAB 325 MG TAB PO PRN (21:09)
[2019-06-25] MEDS: MONTELUKAST 10 MG TAB PO SCH (21:09)
[2019-06-25] MEDS: METOPROLOL TARTRATE 25 MG TAB PO SCH (21:10)
--- NOTE | 2019-06-25 22:28 | PN ---
PROGRESS NOTE DATE OF SERVICE: 06/25/2019. REASON FOR FOLLOWUP: Febrile neutropenia. INTERVAL HISTORY: The patient is currently afebrile, has been breathing comfortably. The patient denies having any chest pain or shortness of breath or cough. No nausea, no vomiting. No abdominal pain or diarrhea. PHYSICAL EXAMINATION: Blood pressure 113/60 with a pulse of 79, temperature 98.7. He is 96% on room air. General description is a middle-aged male lying in bed in no distress. RESPIRATORY SYSTEM: Unlabored breathing. Clear to auscultation anteriorly. HEART: S1, S2. Regular rate and rhythm. ABDOMEN: Soft. No tenderness. LABS: Hemoglobin 7.9, white count 0.7, creatinine 0.61. Culture has been negative so far. DIAGNOSTIC IMPRESSION AND PLAN: Patient with febrile neutropenia. So far no definite focus of infection. The patient is currently covered with cefepime; to continue. Will discontinue the daptomycin of any Gram-positive infection and monitor his clinical course closely. MMODL / IJN: [id number] /
[2019-06-25] MEDS: VENLAFAXINE HCL ER 150 MG CAP PO SCH (22:35)
[2019-06-25] MEDS: ZOLPIDEM 5 MG TAB PO PRN (22:35)
[2019-06-25] MEDS: HYDROcodone/APAP 7.5-325MG 1 EACH TAB PO PRN (22:36)
[2019-06-25] MEDS: DAPTOmycin 500 MG in SODIUM CHLORIDE 0.9% 50 ML IVPB SCH (23:21)
[2019-06-26] MEDS: CEFEPIME 2 GM in SODIUM CHLORIDE 0.9% 100 ML IVPB SCH ×3 (00:04→15:58)
[2019-06-26] MEDS: SALT AND SODA MOUTHWASH 1,000 ML PO SCH ×5 (05:44→23:26)
[2019-06-26 07:11] LABS: Glucose,Whole Blood 102 mg/dL (75-99)
[2019-06-26] MEDS: INSULIN ASPART (NovoLOG) 100 UNIT/ML VIAL SQ SCH ×4 (07:39→20:38)
[2019-06-26] MEDS: ACYCLOVIR 200 MG CAP PO SCH ×2 (07:42→20:38)
[2019-06-26] MEDS: DIVALPROEX 500 MG TABLET.DR PO SCH ×2 (07:43→20:38)
[2019-06-26] MEDS: PANTOPRAZOLE 40 MG TABLET PO SCH (07:43)
[2019-06-26] MEDS: FLUTICASONE 110 MCG INHALER INHALATION SCH ×2 (08:01→19:42)
[2019-06-26 09:11] LABS: HCT 21.6 % (39.0-53.0); HGB 7.4 gm/dL (13.0-17.5); Hyperchromasia Slight; Hypochromasia Slight; MCH 27.8 pg (25.0-35.0); MCHC 34.1 g/dL (31.0-37.0); MCV 81.6 fL (80.0-100.0); Mean Platelet Volume 15.6; Poikilocytosis Marked; RBC 2.64 m/uL (4.30-5.90)
[2019-06-26 09:17] LABS: WBC 0.5 k/uL (3.8-10.6)
[2019-06-26 09:18] LABS: Platelet Count 25 k/uL (150-450)
[2019-06-26 09:30] LABS: ALT 24 U/L (4-49); AST 17 U/L (17-59); African American GFR (CKD) >90 (>60 ml/min/1.73 sqM); Albumin 3.7 g/dL (3.5-5.0); Alkaline Phosphatase 67 U/L (38-126); Anion Gap 9 mmol/L; Blood Urea Nitrogen 12 mg/dL (9-20); Calcium 8.9 mg/dL (8.4-10.2); Carbon Dioxide 27 mmol/L (22-30); Chloride 104 mmol/L (98-107); Glucose 131 mg/dL (74-99); Non-African American GFR(CKD) >90 (>60 ml/min/1.73 sqM); Potassium 4.3 mmol/L (3.5-5.1); Sodium 140 mmol/L (137-145); Total Protein 6.6 g/dL (6.3-8.2)
[2019-06-26 10:54] LABS: Anisocytosis (M) Present; Tear Drop Cells Present
[2019-06-26 10:55] LABS: Spherocytes Present
[2019-06-26] MEDS: SODIUM CHLORIDE 0.9% 1,000 ML IV SCH ×3 (11:15→23:25)
[2019-06-26] MEDS: VORICONAZOLE 200 MG TAB PO SCH (11:18)
--- NOTE | 2019-06-26 11:24 | P.PN ---
Subjective Progress Note Date: 06/26/19 This is a 48-year-old male patient who presented with complaints of fever. Patient has been on chemotherapy for acute erythroid leukemia. Patient was recently admitted for inpatient chemotherapy and discharged on 06/09/2019. Patient reports that the fever started last night he presented to the ER. Yasmin benedict does report occasional diarrhea. Patient also reports that he had a bloody bowel movement yesterday. Patient denies any headaches body aches nausea or vomiting. Patient denies any acute respiratory symptoms. Patient denies shortness of breath or chest discomfort. Additional medical history includes acute erythroid leukemia, diabetes mellitus type 2, hypertension, seizure anxiety depression and bipolar. EKG completed showing normal sinus rhythm. Normal EKG. Chest x-ray completed showing no acute process. Influenza negative. White blood cell is 0.6, platelets 10.0 lactic acid initially elevated troponin for repeat lactic 1.5. UA negative. Patient started on daptomycin and IV Zosyn. Infectious disease and oncology service is consulted. Stool for occult blood will be ordered. Hemoglobin currently stable at 8.8 On 06/21/2019 patient was seen and examined on the medical floor he is alert and oriented 3 in no apparent distress he is complaining of occasional headache oth erwise he denies any complaints there is no fever or chills no dizziness no chest pain no shortness of breath no cough no nausea or vomiting no abdominal pain no diarrhea no burning with urination no frequency or urgency and no hematuria On 06/22/2019 patient was seen and examined on the medical floor he is doing well and denies any complaints at this time there is no fever or chills no headache or dizziness no chest pain no shortness of breath no cough no nausea or vomiting no abdominal pain no diarrhea and no urinary symptoms On 06/23/2019 patient is alert and oriented 3. Patient did have elevated temp last night. Infectious disease and oncology are following. Patient remains on IV antibiotics. Patient denies any chest pain or shortness of breath. Patient denies nausea vomiting or diarrhea. Patient denies any urinary burning or frequency On 06/24/2019 patient is alert and oriented 3. Patient continues have elevated temperature. Per oncology service is planning bone marrow biopsy for this week. IR consult has been placed. Antibiotics have been adjusted per infectious disease. Patient denies chest pain or shortness of breath. Patient denies nausea vomiting or diarrhea. Patient denies any urinary burning or frequency On 06/25/2019 patient is alert and oriented 3. Patient will undergo bone marrow biopsy today with IR. Patient continues to deny any chest pain shortness breath. Patient denies nausea vomiting or diarrhea. Patient denies any urinary burning or frequency. Patient did have a low-grade temp last night 99.9 On 06/26/2019 patient is alert and oriented 3. Patient is status post bone marrow biopsy on 06/25/2019 awaiting results. Did discuss case with nurse practitioner for oncology team planning to transition patient to oral antibiotics and monitor for fever inpatient before transitioning home. Case to be discussed with infectious disease. At this time patient denies chest pain or shortness breath. Denies nausea vomiting or diarrhea. Patient denies any urinary burning or frequency. Objective - Vital Signs Vital signs: Vital Signs Temp 98.3 F 06/26/19 05:43 Pulse 75 06/26/19 05:43 Resp 16 06/26/19 05:43 BP 112/60 06/26/19 05:43 Pulse Ox 100 06/26/19 05:43 Intake & Output 06/25/19 06/26/19 06/26/19 18:59 06:59 18:59 Intake Total 1140 1560 240 Output Total 1700 Balance 1140 -140 240 Intake: Intake, IV Titration 1140 1560 Amount Cefepime 2 gm In Sodium 100 Chloride 0.9% 100 ml @ 200 mls/hr IVPB Q8HR [facility] Rx#:[id number] Sodium Chloride 0.9% 1, 1040 1560 000 ml @ 130 mls/hr IV . Q7H42M [facility] Rx#:[id number] Oral 240 Output: Urine 1700 Other: Voiding Method Urinal Urinal - Exam In general patient is alert and oriented 3 in no apparent distress Head normocephalic and atraumatic Neck supple no JVD no goiter Lungs clear to auscultation bilaterally no wheezing or crackles Heart regular rate and rhythm S1-S2, no rub or gallop Abdomen is soft nontender nondistended positive bowel sounds no hepatosplenomegaly Extremities no edema no cyanosis or clubbing Neuro no gross focal neurological deficit - Labs CBC & Chem 7: 06/26/19 08:42 06/26/19 08:42 Labs: Abnormal Lab Results - Last 24 Hours (Table) 06/25/19 06/25/1920 Range/Units 11:32 16:57 21:02 WBC (3.8-10.6) k/uL RBC (4.30-5.90) m/uL Hgb (13.0-17.5) gm/dL Hct (39.0-53.0) % Plt Count (150-450) k/uL Creatinine (0.66-1.25) mg/dL Glucose (74-99) mg/dL POC Glucose (mg/dL) 101 H 149 H 125 H (75-99) mg/dL 06/26/19 06/26/19 06/26/19 Range/Units 07:07 08:42 08:42 WBC 0.5 L* (3.8-10.6) k/uL RBC 2.64 L (4.30-5.90) m/uL Hgb 7.4 L (13.0-17.5) gm/dL Hct 21.6 L (39.0-53.0) % Plt Count 25 L (150-450) k/uL Creatinine 0.62 L (0.66-1.25) mg/dL Glucose 131 H (74-99) mg/dL POC Glucose (mg/dL) 102 H (75-99) mg/dL Microbiology - Last 24 Hours (Table) 06/23/19 23:24 Blood Culture - Preliminary Blood No Growth after 48 hours 06/19/19 21:00 Blood Culture - Final Blood No Growth after 144 hours 06/21/19 13:20 Stool Culture - Final Stool Assessment and Plan Assessment: 1. Febrile illness with elevated lactic acid. Patient has been receiving chemotherapy pancytopenia secondary to chemotherapy will consult infectious disease. Chest x-ray negative. Influenza negative. UA negative. Blood cultures have been ordered. Lactic acid has improved to 1.5 patient currently on daptomycin and Zosyn. Blood Culture currently showing no growth 2. Acute erythroid leukemia. Patient recently completed inpatient chemotherapy and discharged on 06/09/2019. Oncology services have been consulted. Planning bone marrow biopsy for later this week. Interventional radiology has been consulted. That is post bone marrow biopsy on 06/25/2019 results pending. 3. Possible GI bleed. Platelet with 10. Stool for occult blood has been ordered. Hemoglobin stable at 8.8. Stool for occult blood negative 4. Diabetes mellitus type 2. Metformin on hold sliding scale insulin ordered 5. Essential hypertension. Home meds resumed 6. History of bipolar depression. Home meds resumed 7. History of seizures. 8. Pancytopenia secondary to chemotherapy DVT prophylaxis SCDs. GI prophylaxis Pepcid Oncology and infectious disease consulted Patient on daptomycin and cefepime for IV antibiotics I performed an examination of the patient and discussed their management with the Nurse Practitioner. I have reviewed the Nurse Practitioner's notes and agree with the documented findings and plan of care
[2019-06-26 11:53] LABS: Glucose,Whole Blood 97 mg/dL (75-99)
--- NOTE | 2019-06-26 13:06 | P.PN ---
Subjective Progress Note Date: 06/26/19 Principal diagnosis: Acute erythroid leukemia In f/u today pt denies symptoms of infection, rash, soreness, vomiting, diarrhea. He is tolerating oral intake, ambulating independently Objective - Vital Signs Vital signs: Vital Signs Temp 98.5 F 06/26/19 12:15 Pulse 82 06/26/19 12:15 Resp 16 06/26/19 12:15 BP 116/62 06/26/19 12:15 Pulse Ox 100 06/26/19 12:15 Intake & Output 06/25/19 06/26/19 06/26/19 18:59 06:59 18:59 Intake Total 1140 1560 240 Output Total 1700 Balance 1140 -140 240 Intake: Intake, IV Titration 1140 1560 Amount Cefepime 2 gm In Sodium 100 Chloride 0.9% 100 ml @ 200 mls/hr IVPB Q8HR [facility] Rx#:[id number] Sodium Chloride 0.9% 1, 1040 1560 000 ml @ 130 mls/hr IV . Q7H42M [facility] Rx#:[id number] Oral 240 Output: Urine 1700 Other: Voiding Method Urinal Urinal - Constitutional General appearance: Present: average body habitus, cooperative, no acute distress - EENT Eyes: Present: anicteric sclerae, EOMI ENT: Present: hearing grossly normal, normal oropharynx - Neck Neck: Present: normal ROM. Absent: lymphadenopathy - Respiratory Respiratory: bilateral: CTA - Cardiovascular Rhythm: regular Heart sounds: normal: S1, S2 Abnormal Heart Sounds: Absent: systolic murmur, diastolic murmur, rub, S3 Gallop, S4 Gallop, click, other - Peripheral edema leg Peripheral Edema: bilateral: None - Gastrointestinal General gastrointestinal: Present: normal bowel sounds, soft. Absent: absent bowel sounds, decreased bowel sounds, distended, hepatomegaly, hyperactive bowel sounds, organomegaly, rigid, scaphoid, splenomegaly, tenderness, umbilical hernia, ventral hernia - Integumentary Integumentary: Present: normal turgor, pale - Neurologic Neurologic: Present: CNII-XII intact - Musculoskeletal Musculoskeletal: Present: strength equal bilaterally - Psychiatric Psychiatric: Present: A&O x's 3, appropriate affect, intact judgment & insight - Labs CBC & Chem 7: 06/26/19 08:42 06/26/19 08:42 Labs: Abnormal Lab Results - Last 24 Hours (Table) 06/25/19 06/25/19 06/26/19 Range/Units 16:57 21:02 07:07 WBC (3.8-10.6) k/uL RBC (4.30-5.90) m/uL Hgb (13.0-17.5) gm/dL Hct (39.0-53.0) % Plt Count (150-450) k/uL Creatinine (0.66-1.25) mg/dL Glucose (74-99) mg/dL POC Glucose (mg/dL) 149 H 125 H 102 H (75-99) mg/dL 06/26/19 06/26/19 Range/Units 08:42 08:42 WBC 0.5 L* (3.8-10.6) k/uL RBC 2.64 L (4.30-5.90) m/uL Hgb 7.4 L (13.0-17.5) gm/dL Hct 21.6 L (39.0-53.0) % Plt Count 25 L (150-450) k/uL Creatinine 0.62 L (0.66-1.25) mg/dL Glucose 131 H (74-99) mg/dL POC Glucose (mg/dL) (75-99) mg/dL Microbiology - Last 24 Hours (Table) 06/23/19 23:24 Blood Culture - Preliminary Blood No Growth after 48 hours 06/19/19 21:00 Blood Culture - Final Blood No Growth after 144 hours Assessment and Plan (1) Febrile neutropenia Narrative/Plan: Pancultures ordered, negative at 48 hours, no fever last night. ID following Close monitoring of vital signs. Antibiotic, antiviral and antifungal medications ordered. Would like ID recommendations for oral options, to being those inpatient to see of tolerated by pt, fever controlled. 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 Patient requires irradiated blood products. Transfuse to keep hemoglobin above 6.9. Hemoglobin today is 7.5. Transfuse to keep platelets above 10,000 unless symptomatic. Platelets today 25,000 s/p 1 unit irradiated SDP No intervention for low white blood cell count. Current Visit: Yes Status: Chronic Priority: Medium Code(s): D61.810 - ANTINEOPLASTIC CHEMOTHERAPY INDUCED PANCYTOPENIA; T45.1X5A - ADVERSE EFFECT OF ANTINEOPLASTIC AND IMMUNOSUP DRUGS, INIT SNOMED Code(s): 231481246046696 (3) Acute erythroid leukemia Narrative/Plan: Patient is currently in cycle 1 of oral venetoclax and IV Vidaza once a month. Plan is to continue therapy to keep patient in remission so that he can advance to transplant. Hold venetoclax since admit. S/P BM Mx and asp yesterday. Pending discussion with lab processing as NGS and mutational studies are desired, check with lab and these were not ordered. Current Visit: Yes Status: Acute Priority: High Code(s): C94.00 - ACUTE ERYTHROID LEUKEMIA, NOT HAVING ACHIEVED REMISSION SNOMED Code(s): 33930596 Plan: Case was discussed with Internal Medicine WASH HELPER
[2019-06-26 14:45] VITALS: BMI 30.2
[2019-06-26 17:13] LABS: Glucose,Whole Blood 109 mg/dL (75-99)
[2019-06-26 19:42] LABS: Glucose,Whole Blood 137 mg/dL (75-99)
[2019-06-26] MEDS: METOPROLOL TARTRATE 25 MG TAB PO SCH (20:38)
[2019-06-26] MEDS: MONTELUKAST 10 MG TAB PO SCH (20:38)
[2019-06-26] MEDS: VENLAFAXINE HCL ER 150 MG CAP PO SCH (20:38)
[2019-06-26] MEDS: HYDROcodone/APAP 7.5-325MG 1 EACH TAB PO PRN (20:41)
[2019-06-26] MEDS: ZOLPIDEM 5 MG TAB PO PRN (20:41)
--- NOTE | 2019-06-27 05:37 | PN ---
PROGRESS NOTE DATE OF SERVICE: 06/26/2019. REASON FOR FOLLOWUP: Febrile neutropenia. INTERVAL HISTORY: The patient is currently afebrile. Patient has been breathing comfortably. The patient denies having any chest pain, shortness of breath or cough. No nausea, no vomiting. No abdominal pain or diarrhea. PHYSICAL EXAMINATION: Blood pressure 121/76, pulse of 85, temperature 98.3. He is 99% on room air. General description is a middle-aged male lying in bed in no distress. RESPIRATORY SYSTEM: Unlabored breathing, clear to auscultation anteriorly. HEART: S1, S2. Regular rate and rhythm. ABDOMEN: Soft, no tenderness. EXTREMITIES: No edema of the feet. LABS: Hemoglobin 7.4, white count 0.5, BUN of 12, creatinine 0.62. DIAGNOSTIC IMPRESSION AND PLAN: Patient with febrile neutropenia in this patient fever resolved. Culture has been negative and no obvious focus of infection. We will go ahead and discontinue cefepime. Start the patient on oral Augmentin and if the patient tolerates and remains to be afebrile, we will continue in the outpatient setting. Continue supportive care condition. MMODL / IJN: [id number] /
[2019-06-27] MEDS: SALT AND SODA MOUTHWASH 1,000 ML PO SCH ×2 (06:00→14:02)
[2019-06-27 07:06] LABS: Glucose,Whole Blood 110 mg/dL (75-99)
[2019-06-27] MEDS: FLUTICASONE 110 MCG INHALER INHALATION SCH (07:39)
[2019-06-27 07:40] LABS: HCT 21.8 % (39.0-53.0); HGB 7.5 gm/dL (13.0-17.5); Hyperchromasia Slight; Hypochromasia Slight; MCH 27.9 pg (25.0-35.0); MCHC 34.4 g/dL (31.0-37.0); MCV 81.1 fL (80.0-100.0); Mean Platelet Volume 8.5; Poikilocytosis Marked; RBC 2.69 m/uL (4.30-5.90)
[2019-06-27 08:08] LABS: WBC 0.5 k/uL (3.8-10.6)
[2019-06-27 08:12] LABS: Platelet Count 18 k/uL (150-450)
[2019-06-27 08:19] LABS: ALT 28 U/L (4-49); AST 19 U/L (17-59); African American GFR (CKD) >90 (>60 ml/min/1.73 sqM); Alkaline Phosphatase 66 U/L (38-126); Anion Gap 10 mmol/L; Blood Urea Nitrogen 16 mg/dL (9-20); Calcium 9.3 mg/dL (8.4-10.2); Carbon Dioxide 26 mmol/L (22-30); Chloride 104 mmol/L (98-107); Glucose 101 mg/dL (74-99); Non-African American GFR(CKD) >90 (>60 ml/min/1.73 sqM); Potassium 4.4 mmol/L (3.5-5.1); Sodium 140 mmol/L (137-145); Total Bilirubin 0.9 mg/dL (0.2-1.3)
[2019-06-27] MEDS: INSULIN ASPART (NovoLOG) 100 UNIT/ML VIAL SQ SCH ×2 (08:53→14:01)
[2019-06-27] MEDS: ACYCLOVIR 200 MG CAP PO SCH (08:58)
[2019-06-27] MEDS: DIVALPROEX 500 MG TABLET.DR PO SCH (08:58)
[2019-06-27] MEDS: PANTOPRAZOLE 40 MG TABLET PO SCH (08:58)
[2019-06-27] MEDS ORDERED: AMOXIC-POT CLAV 875-125MG 1 EACH TAB PO SCH (09:00)
[2019-06-27 09:14] LABS: Anisocytosis (M) Present; Tear Drop Cells Present
[2019-06-27 09:15] LABS: Mixed Population RBC Present; Spherocytes Present
--- NOTE | 2019-06-27 10:44 | P.PN ---
Subjective Progress Note Date: 06/27/19 This is a 48-year-old male patient who presented with complaints of fever. Patient has been on chemotherapy for acute erythroid leukemia. Patient was recently admitted for inpatient chemotherapy and discharged on 06/09/2019. Patient reports that the fever started last night he presented to the ER. Yasmin benedict does report occasional diarrhea. Patient also reports that he had a bloody bowel movement yesterday. Patient denies any headaches body aches nausea or vomiting. Patient denies any acute respiratory symptoms. Patient denies shortness of breath or chest discomfort. Additional medical history includes acute erythroid leukemia, diabetes mellitus type 2, hypertension, seizure anxiety depression and bipolar. EKG completed showing normal sinus rhythm. Normal EKG. Chest x-ray completed showing no acute process. Influenza negative. White blood cell is 0.6, platelets 10.0 lactic acid initially elevated troponin for repeat lactic 1.5. UA negative. Patient started on daptomycin and IV Zosyn. Infectious disease and oncology service is consulted. Stool for occult blood will be ordered. Hemoglobin currently stable at 8.8 On 06/21/2019 patient was seen and examined on the medical floor he is alert and oriented 3 in no apparent distress he is complaining of occasional headache oth erwise he denies any complaints there is no fever or chills no dizziness no chest pain no shortness of breath no cough no nausea or vomiting no abdominal pain no diarrhea no burning with urination no frequency or urgency and no hematuria On 06/22/2019 patient was seen and examined on the medical floor he is doing well and denies any complaints at this time there is no fever or chills no headache or dizziness no chest pain no shortness of breath no cough no nausea or vomiting no abdominal pain no diarrhea and no urinary symptoms On 06/23/2019 patient is alert and oriented 3. Patient did have elevated temp last night. Infectious disease and oncology are following. Patient remains on IV antibiotics. Patient denies any chest pain or shortness of breath. Patient denies nausea vomiting or diarrhea. Patient denies any urinary burning or frequency On 06/24/2019 patient is alert and oriented 3. Patient continues have elevated temperature. Per oncology service is planning bone marrow biopsy for this week. IR consult has been placed. Antibiotics have been adjusted per infectious disease. Patient denies chest pain or shortness of breath. Patient denies nausea vomiting or diarrhea. Patient denies any urinary burning or frequency On 06/25/2019 patient is alert and oriented 3. Patient will undergo bone marrow biopsy today with IR. Patient continues to deny any chest pain shortness breath. Patient denies nausea vomiting or diarrhea. Patient denies any urinary burning or frequency. Patient did have a low-grade temp last night 99.9 On 06/26/2019 patient is alert and oriented 3. Patient is status post bone marrow biopsy on 06/25/2019 awaiting results. Did discuss case with nurse practitioner for oncology team planning to transition patient to oral antibiotics and monitor for fever inpatient before transitioning home. Case to be discussed with infectious disease. At this time patient denies chest pain or shortness breath. Denies nausea vomiting or diarrhea. Patient denies any urinary burning or frequency. On 06/27/2019 patient is alert and oriented 3. Patient has been transitioned to oral Augmentin per infectious disease will monitor for 24 hours for fever. At this time patient denies chest pain or shortness breath. Patient denies nausea vomiting or diarrhea. Patient denies any urinary burning or frequency. Objective - Vital Signs Vital signs: Vital Signs Temp 98.3 F 06/27/19 05:00 Pulse 84 06/27/19 05:00 Resp 16 06/27/19 05:00 BP 122/75 06/27/19 05:00 Pulse Ox 99 06/27/19 05:00 Intake & Output 06/26/19 06/27/19 06/27/19 18:59 06:59 18:59 Intake Total 2480 1560 240 Output Total 3400 2300 Balance -920 -740 240 Weight 90.174 kg Intake: Intake, IV Titration 980 1560 Amount Cefepime 2 gm In Sodium 200 Chloride 0.9% 100 ml @ 200 mls/hr IVPB Q8HR [facility] Rx#:[id number] Sodium Chloride 0.9% 1, 780 1560 000 ml @ 130 mls/hr IV . Q7H42M [facility] Rx#:[id number] Oral 1500 240 Output: Urine 3400 2300 Other: Voiding Method Urinal - Exam In general patient is alert and oriented 3 in no apparent distress Head normocephalic and atraumatic Neck supple no JVD no goiter Lungs clear to auscultation bilaterally no wheezing or crackles Heart regular rate and rhythm S1-S2, no rub or gallop Abdomen is soft nontender nondistended positive bowel sounds no hepatosplenomegaly Extremities no edema no cyanosis or clubbing Neuro no gross focal neurological deficit - Labs CBC & Chem 7: 06/27/19 07:23 06/27/19 07:23 Labs: Abnormal Lab Results - Last 24 Hours (Table) 06/26/19 06/26/19 06/26/19 Range/Units 08:42 17:10 19:41 WBC (3.8-10.6) k/uL RBC (4.30-5.90) m/uL Hgb (13.0-17.5) gm/dL Hct (39.0-53.0) % Plt Count 25 L (150-450) k/uL Creatinine (0.66-1.25) mg/dL Glucose (74-99) mg/dL POC Glucose (mg/dL) 109 H 137 H (75-99) mg/dL 06/27/19 06/27/19 06/27/19 Range/Units 07:04 07:23 07:23 WBC 0.5 L* (3.8-10.6) k/uL RBC 2.69 L (4.30-5.90) m/uL Hgb 7.5 L (13.0-17.5) gm/dL Hct 21.8 L (39.0-53.0) % Plt Count 18 L* (150-450) k/uL Creatinine 0.65 L (0.66-1.25) mg/dL Glucose 101 H (74-99) mg/dL POC Glucose (mg/dL) 110 H (75-99) mg/dL Microbiology - Last 24 Hours (Table) 06/23/19 23:24 Blood Culture - Preliminary Blood No Growth after 72 hours Assessment and Plan Assessment: 1. Febrile illness with elevated lactic acid. Patient has been receiving chemotherapy pancytopenia secondary to chemotherapy will consult infectious disease. Chest x-ray negative. Influenza negative. UA negative. Blood cultures have been ordered. Lactic acid has improved to 1.5 patient currently on daptomycin and Zosyn. Blood Culture currently showing no growth. Per infectious disease patient has been transitioned to oral antibiotic Augmentin will continue to monitor for fever. If patient remains afebrile may be DC'd home 2. Acute erythroid leukemia. Patient recently completed inpatient chemotherapy and discharged on 06/09/2019. Oncology services have been consulted. Planning bone marrow biopsy for later this week. Interventional radiology has been consulted. That is post bone marrow biopsy on 06/25/2019 results pending. 3. Possible GI bleed. Platelet with 10. Stool for occult blood has been ordered. Hemoglobin stable at 8.8. Stool for occult blood negative 4. Diabetes mellitus type 2. Metformin on hold sliding scale insulin ordered 5. Essential hypertension. Home meds resumed 6. History of bipolar depression. Home meds resumed 7. History of seizures. 8. Pancytopenia secondary to chemotherapy DVT prophylaxis SCDs. GI prophylaxis Pepcid Oncology and infectious disease consulted Patient on daptomycin and cefepime for IV antibiotics I performed an examination of the patient and discussed their management with the Nurse Practitioner. I have reviewed the Nurse Practitioner's notes and agree with the documented findings and plan of care
[2019-06-27 11:07] LABS: Glucose,Whole Blood 172 mg/dL (75-99)
[2019-06-27 11:40] VITALS: BP 112/62; PULSE 78; RESP 17; TEMP 98
[2019-06-27] MEDS: SODIUM CHLORIDE 0.9% 1,000 ML IV SCH (13:52)
[2019-06-27] MEDS: VORICONAZOLE 200 MG TAB PO SCH (13:59)
--- NOTE | 2019-06-27 14:07 | PN ---
PROGRESS NOTE DATE OF SERVICE: 06/27/2019 REASON FOR FOLLOWUP: Febrile neutropenia. INTERVAL HISTORY: The patient is currently afebrile. The patient has been breathing comfortably. The patient denies having any chest pain, shortness of breath or cough. No nausea, no vomiting, no abdominal pain, no diarrhea. PHYSICAL EXAMINATION: Blood pressure 112/52 with a pulse of 78, temperature 98, he is 98% on room air. General description is a middle aged male, lying in bed in no distress. RESPIRATORY SYSTEM: Unlabored breathing, clear to auscultation anteriorly. HEART: S1, S2. Regular rate and rhythm. ABDOMEN: Soft, no tenderness. LABS: Hemoglobin 7.5, white count of 0.5, BUN of 16, creatinine 0.65. Blood culture has been negative. DIAGNOSTIC IMPRESSION AND PLAN: Patient with febrile neutropenia. Patient is currently responding to oral Flagyl. No obvious focus of infection. Recommend to keep the patient on oral Augmentin for a short course and monitor clinical course closely. Continue supportive care. MMODL / IJN: [id number] /
--- NOTE | 2019-06-27 14:27 | P.DS ---
Providers Date of admission: 06/19/19 21:59 Expected date of discharge: 06/27/19 Attending physician: Veronika Dotson Consults: 06/19/19 23:32 Consult Physician Routine Consulting Provider: Guille Rojas Consult Reason/Comments: fever Do you want consulting provider notified?: Yes Consult Physician Urgent Consulting Provider: Hubert De Anda Consult Reason/Comments: fever Do you want consulting provider notified?: Already Contacted Primary care physician: Veronika Dotson [facility] Course: Discharge diagnosis 1. Febrile illness with elevated lactic acid. Patient has been receiving chemotherapy pancytopenia secondary to chemotherapy will consult infectious disease. Chest x-ray negative. Influenza negative. UA negative. Blood cultures have been ordered. Lactic acid has improved to 1.5 patient currently on daptomycin and Zosyn. Blood Culture currently showing no growth. Per infectious disease patient has been transitioned to oral antibiotic Augmentin will continue to monitor for fever. If patient remains afebrile may be DC'd home. Patient to be discharged home on Augmentin per oncology prescription to be written by oncology. Patient also to be maintained on antiviral medication and Diflucan will follow up with oncology services on Sunday 2. Acute erythroid leukemia. Patient recently completed inpatient chemotherapy and discharged on 06/09/2019. Oncology services have been consulted. Planning bone marrow biopsy for later this week. Interventional radiology has been consulted. That is post bone marrow biopsy on 06/25/2019 results pending. 3. Possible GI bleed. Platelet with 10. Stool for occult blood has been ordered. Hemoglobin stable at 8.8. Stool for occult blood negative 4. Diabetes mellitus type 2. Metformin on hold sliding scale insulin ordered 5. Essential hypertension. Home meds resumed 6. History of bipolar depression. Home meds resumed 7. History of seizures. 8. Pancytopenia secondary to chemotherapy Hospital course This is a 48-year-old male patient who presented with complaints of fever. Patient has been on chemotherapy for acute erythroid leukemia. Patient was recently admitted for inpatient chemotherapy and discharged on 06/09/2019. Patient reports that the fever started last night he presented to the ER. Patient does report occasional diarrhea. Patient also reports that he had a bloody bowel movement yesterday. Patient denies any headaches body aches nausea or vomiting. Patient denies any acute respiratory symptoms. Patient denies shortness of breath or chest discomfort. Additional medical history includes acute erythroid leukemia, diabetes mellitus type 2, hypertension, seizure anxiety depression and bipolar. EKG completed showing normal sinus rhythm. Normal EKG. Chest x-ray completed showing no acute process. Influenza negative. White blood cell is 0.6, platelets 10.0 lactic acid initially elevated troponin for repeat lactic 1.5. UA negative. Patient started on daptomycin and IV Zosyn. Infectious disease and oncology service is consulted. Stool for occult blood will be ordered. Hemoglobin currently stable at 8.8 On 06/21/2019 patient was seen and examined on the medical floor he is alert and oriented 3 in no apparent distress he is complaining of occasional headache otherwise he denies any complaints there is no fever or chills no dizziness no chest pain no shortness of breath no cough no nausea or vomiting no abdominal pain no diarrhea no burning with urination no frequency or urgency and no hematuria On 06/22/2019 patient was seen and examined on the medical floor he is doing well and denies any complaints at this time there is no fever or chills no headache or dizziness no chest pain no shortness of breath no cough no nausea or vomiting no abdominal pain no diarrhea and no urinary symptoms On 06/23/2019 patient is alert and oriented 3. Patient did have elevated temp last night. Infectious disease and oncology are following. Patient remains on IV antibiotics. Patient denies any chest pain or shortness of breath. Patient denies nausea vomiting or diarrhea. Patient denies any urinary burning or frequency On 06/24/2019 patient is alert and oriented 3. Patient continues have elevated temperature. Per oncology service is planning bone marrow biopsy for this week. IR consult has been placed. Antibiotics have been adjusted per infectious disease. Patient denies chest pain or shortness of breath. Patient denies nausea vomiting or diarrhea. Patient denies any urinary burning or frequency On 06/25/2019 patient is alert and oriented 3. Patient will undergo bone marrow biopsy today with IR. Patient continues to deny any chest pain shortness breath. Patient denies nausea vomiting or diarrhea. Patient denies any urinary burning or frequency. Patient did have a low-grade temp last night 99.9 On 06/26/2019 patient is alert and oriented 3. Patient is status post bone marrow biopsy on 06/25/2019 awaiting results. Did discuss case with nurse practitioner for oncology team planning to transition patient to oral antibiotics and monitor for fever inpatient before transitioning home. Case to be discussed with infectious disease. At this time patient denies chest pain or shortness breath. Denies nausea vomiting or diarrhea. Patient denies any urinary burning or frequency. On 06/27/2019 patient is alert and oriented 3. Patient has been transitioned to oral Augmentin per infectious disease will monitor for 24 hours for fever. At this time patient denies chest pain or shortness breath. Patient denies nausea vomiting or diarrhea. Patient denies any urinary burning or frequency. Discuss case with oncology nurse practitioner. Patient cleared for discharge. Patient has been afebrile patient has been transitioned to oral antibiotics. Per oncology patient has follow-up appointment on Sunday for follow-up lab work. Patient understands that if fever presents again he is come back to ER for further evaluation. Bone marrow biopsy results pending. Patient maintained afebrile. Patient denies any chest pain shortness breath. Patient denies naus ea vomiting diarrhea. Patient denies any urinary burning or frequency I performed an examination of the patient and discussed their management with the Nurse Practitioner. I have reviewed the Nurse Practitioner's notes and agree with the documented findings and plan of care Patient Condition at Discharge: Stable Plan - Discharge Summary Discharge Rx Participant: No New Discharge Prescriptions: No Action Montelukast Sodium [Singulair] 10 mg PO HS Albuterol Inhaler [Ventolin Hfa Inhaler] 2 puff INHALATION RT-Q6H PRN PRN Reason: Shortness Of Breath Venlafaxine HCl [Effexor XR] 150 mg PO HS Fenofibrate Nanocrystallized [Fenofibrate] 145 mg PO PC-SUPPER Beclomethasone Dipropionate [Qvar 80 mcg] 2 puff INHALATION RT-BID Nitroglycerin Sl Tabs [Nitrostat] 0.4 mg SUBLINGUAL Q5M PRN PRN Reason: Chest Pain Divalproex [Depakote] 500 mg PO BID tablet. metFORMIN HCL [Glucophage] 500 mg PO PC-SUPPER #0 Acyclovir [Zovirax] 400 mg PO BID Metoprolol Tartrate [Lopressor] 25 mg PO HS Zolpidem [Ambien] 5 mg PO HS PRN #30 tab PRN Reason: Insomnia Voriconazole 100 mg PO DAILY@1130 Venetoclax [Venclexta] 400 mg PO DAILY@1630 Discharge Medication List Montelukast Sodium [Singulair] 10 mg PO HS 06/01/16 [History] Albuterol Inhaler [Ventolin Hfa Inhaler] 2 puff INHALATION RT-Q6H PRN 10/15/17 [History] Beclomethasone Dipropionate [Qvar 80 mcg] 2 puff INHALATION RT-BID 10/15/17 [History] Fenofibrate Nanocrystallized [Fenofibrate] 145 mg PO PC-SUPPER 10/15/17 [History] Venlafaxine HCl [Effexor XR] 150 mg PO HS 10/15/17 [History] Nitroglycerin Sl Tabs [Nitrostat] 0.4 mg SUBLINGUAL Q5M PRN 01/10/19 [History] Divalproex [Depakote] 500 mg PO BID tablet. 01/27/19 [Rx] metFORMIN HCL [Glucophage] 500 mg PO PC-SUPPER #0 02/19/19 [Rx] Acyclovir [Zovirax] 400 mg PO BID 04/02/19 [History] Metoprolol Tartrate [Lopressor] 25 mg PO HS 06/03/19 [History] Zolpidem [Ambien] 5 mg PO HS PRN #30 tab 06/09/19 [Rx] Venetoclax [Venclexta] 400 mg PO DAILY@1630 06/19/19 [History] Voriconazole 100 mg PO DAILY@1130 06/19/19 [History] Follow up Appointment(s)/Referral(s): Veronika Dotson MD [Primary Care Provider] - 1-2 days
--- NOTE | 2019-06-27 17:56 | P.PN ---
Subjective Progress Note Date: 06/27/19 Principal diagnosis: Acute erythroid leukemia In f/u today pt denies fever symptoms of infection, rash, soreness, vomiting, diarrhea. He is tolerating oral intake, ambulating independently, he wants to go home Objective - Vital Signs Vital signs: Vital Signs Temp 98 F 06/27/19 11:40 Pulse 78 06/27/19 11:40 Resp 17 06/27/19 11:40 BP 112/62 06/27/19 11:40 Pulse Ox 98 06/27/19 11:40 Intake & Output 06/26/19 06/27/19 06/27/19 18:59 06:59 18:59 Intake Total 2480 1560 240 Output Total 3400 2300 1300 Balance -920 -740 -1060 Weight 90.174 kg Intake: Intake, IV Titration 980 1560 Amount Cefepime 2 gm In Sodium 200 Chloride 0.9% 100 ml @ 200 mls/hr IVPB Q8HR [facility] Rx#:[id number] Sodium Chloride 0.9% 1, 780 1560 000 ml @ 130 mls/hr IV . Q7H42M [facility] Rx#:[id number] Oral 1500 240 Output: Urine 3400 2300 1300 Other: Voiding Method Urinal - Constitutional General appearance: Present: average body habitus, cooperative, no acute distre ss - EENT Eyes: Present: anicteric sclerae, EOMI ENT: Present: hearing grossly normal, normal oropharynx - Respiratory Respiratory: bilateral: CTA - Cardiovascular Rhythm: regular Heart sounds: normal: S1, S2 Abnormal Heart Sounds: Absent: systolic murmur, diastolic murmur, rub, S3 Gallop, S4 Gallop, click, other - Peripheral edema leg Peripheral Edema: bilateral: None - Gastrointestinal General gastrointestinal: Present: normal bowel sounds, soft. Absent: absent bowel sounds, decreased bowel sounds, distended, hepatomegaly, hyperactive bowel sounds, organomegaly, rigid, scaphoid, splenomegaly, tenderness, umbilical hernia, ventral hernia - Integumentary Integumentary: Present: normal turgor, pale - Neurologic Neurologic: Present: CNII-XII intact - Musculoskeletal Musculoskeletal: Present: strength equal bilaterally - Psychiatric Psychiatric: Present: A&O x's 3, appropriate affect, intact judgment & insight - Labs CBC & Chem 7: 06/27/19 07:23 06/27/19 07:23 Labs: Abnormal Lab Results - Last 24 Hours (Table) 06/26/19 06/27/19 06/27/19 Range/Units 19:41 07:04 07:23 WBC 0.5 L* (3.8-10.6) k/uL RBC 2.69 L (4.30-5.90) m/uL Hgb 7.5 L (13.0-17.5) gm/dL Hct 21.8 L (39.0-53.0) % Plt Count 18 L* (150-450) k/uL Creatinine (0.66-1.25) mg/dL Glucose (74-99) mg/dL POC Glucose (mg/dL) 137 H 110 H (75-99) mg/dL 06/27/19 06/27/19 Range/Units 07:23 11:05 WBC (3.8-10.6) k/uL RBC (4.30-5.90) m/uL Hgb (13.0-17.5) gm/dL Hct (39.0-53.0) % Plt Count (150-450) k/uL Creatinine 0.65 L (0.66-1.25) mg/dL Glucose 101 H (74-99) mg/dL POC Glucose (mg/dL) 172 H (75-99) mg/dL Microbiology - Last 24 Hours (Table) 06/23/19 23:24 Blood Culture - Preliminary Blood No Growth after 72 hours Assessment and Plan (1) Febrile neutropenia Narrative/Plan: Pancultures ordered, negative at 48 hours, no fever last night. ID following Close monitoring of vital signs. Antibiotic, antiviral and antifungal medications ordered. ID recommends augmentin, this has been Erx. Pt will cont on antiviral and antifungal No G-CSF, patient is an acute myeloid leukemia not in confirmed remission Status: Acute Priority: High Code(s): D70.9 - NEUTROPENIA, UNSPECIFIED; R50.81 - FEVER PRESENTING WITH CONDITIONS CLASSIFIED ELSEWHERE SNOMED Code(s): 341568584 (2) Pancytopenia due to antineoplastic chemotherapy Narrative/Plan: Conservative transfusions as patient is a transplant candidate. Patient requires irradiated blood products. Transfuse to keep hemoglobin above 6.9. Hemoglobin today is 7.5. Transfuse to keep platelets above 10,000 unless symptomatic. Platelets today 18,000 No intervention for low white blood cell count. Status: Chronic Priority: Medium Code(s): D61.810 - ANTINEOPLASTIC CHEMOTHERAPY INDUCED PANCYTOPENIA; T45.1X5A - ADVERSE EFFECT OF ANTINEOPLASTIC AND IMMUNOSUP DRUGS, INIT SNOMED Code(s): 630348638665866 (3) Acute erythroid leukemia Narrative/Plan: Patient is currently in cycle 1 of oral venetoclax and IV Vidaza once a month. Plan is to continue therapy to keep patient in remission so that he can advance to transplant. Hold venetoclax since admit. S/P BM Mx and asp. Pending discussion with lab processing as NGS and mutational studies are desired, check with lab and these were not ordered, QNS. Status: Acute Priority: High Code(s): C94.00 - ACUTE ERYTHROID LEUKEMIA, NOT HAVING ACHIEVED REMISSION SNOMED Code(s): 69939167 Plan: Case was discussed with Internal Medicine CALCULATION REVIEWER F/U appt in 72 hours at office for CBC
== END 2019-06-27 15:45 | disposition home or self-care (01) | DRG 809 ==
LOC: EC 20:20 → 5NMEDONC 21:59
PROVIDERS: ADMIT Internal Medicine; ATTEND Internal Medicine
PROC: 30233R1 Transfusion of Nonautologous Platelets into Peripheral Vein, Percutaneous Approach (ICD-10-PCS; principal; 2019-06-21)
PROC: 07DR3ZX Extraction of Iliac Bone Marrow, Percutaneous Approach, Diagnostic (ICD-10-PCS; 2019-06-25)
DX: D70.9 Neutropenia, unspecified (principal); C94.00 Acute erythroid leukemia, not having achieved remission; F31.30 Bipolar disorder, current episode depressed, mild or moderate severity, unspecified; K92.1 Melena; D61.810 Antineoplastic chemotherapy induced pancytopenia; E11.42 Type 2 diabetes mellitus with diabetic polyneuropathy; I10 Essential (primary) hypertension; G40.909 Epilepsy, unspecified, not intractable, without status epilepticus; J45.909 Unspecified asthma, uncomplicated; E78.5 Hyperlipidemia, unspecified; M19.90 Unspecified osteoarthritis, unspecified site; K21.9 Gastro-esophageal reflux disease without esophagitis; G89.29 Other chronic pain; G56.03 Carpal tunnel syndrome, bilateral upper limbs; F41.9 Anxiety disorder, unspecified; M54.5 Low back pain; F17.200 Nicotine dependence, unspecified, uncomplicated; E66.9 Obesity, unspecified; G47.33 Obstructive sleep apnea (adult) (pediatric); R50.81 Fever presenting with conditions classified elsewhere; I25.10 Atherosclerotic heart disease of native coronary artery without angina pectoris; T45.1X5A Adverse effect of antineoplastic and immunosuppressive drugs, initial encounter; I25.2 Old myocardial infarction; Z71.3 Dietary counseling and surveillance; Z79.899 Other long term (current) drug therapy; Z71.6 Tobacco abuse counseling; Z79.84 Long term (current) use of oral hypoglycemic drugs; Z91.048 Other nonmedicinal substance allergy status; Z68.30 Body mass index [BMI] 30.0-30.9, adult; Z92.21 Personal history of antineoplastic chemotherapy; Z87.442 Personal history of urinary calculi; Z87.19 Personal history of other diseases of the digestive system; Z96.82 Presence of neurostimulator; Z96.651 Presence of right artificial knee joint; Z95.5 Presence of coronary angioplasty implant and graft; Z98.890 Other specified postprocedural states; Z88.6 Allergy status to analgesic agent; Z88.1 Allergy status to other antibiotic agents; Z91.02 Food additives allergy status; Z91.018 Allergy to other foods; Z82.49 Family history of ischemic heart disease and other diseases of the circulatory system; Z83.3 Family history of diabetes mellitus; Z82.5 Family history of asthma and other chronic lower respiratory diseases; Z80.1 Family history of malignant neoplasm of trachea, bronchus and lung; Z80.3 Family history of malignant neoplasm of breast; Z83.2 Family history of diseases of the blood and blood-forming organs and certain disorders involving the immune mechanism
CPT/HCPCS: 20220; 36415; 71046; 77012; 80053; 81003; 82272; 83605; 83735; 84100; 84145; 85025; 85045; 85610; 86140; 86850; 86900; 86901; 87040; 87045; 87046; 87502; 93005; 94640; 94760; 96360; 96361; 99285

== ENCOUNTER 2019-06-28 13:39 | Inpatient (IN) | payer MEDICARE, OTHER ==
[2019-06-28 14:24] LABS: HCT 23.9 % (39.0-53.0); HGB 8.2 gm/dL (13.0-17.5); Hyperchromasia Slight; Hypochromasia Slight; MCH 27.7 pg (25.0-35.0); MCHC 34.1 g/dL (31.0-37.0); MCV 81.2 fL (80.0-100.0); Mean Platelet Volume 6.8; Poikilocytosis Marked; RBC 2.95 m/uL (4.30-5.90); RDW 15.1 % (11.5-15.5)
[2019-06-28] MEDS ORDERED: ACETAMINOPHEN TAB 325 MG TAB PO STA (14:25)
[2019-06-28] MEDS ORDERED: SODIUM CHLORIDE 0.9% 1,000 ML IV ONE ×2 (14:34→15:11)
[2019-06-28] MEDS ORDERED: cefTRIAXone IN SWFI 1,000 MG/10 ML SYRINGE IVP STA (14:34)
[2019-06-28] MEDS ORDERED: HYDROmorphone 1 MG/ML 1 ML SYRINGE IVP STA (14:34)
[2019-06-28 14:39] LABS: Appearance,Urine Clear (Clear); Bilirubin,Urine 1+ (Negative); Blood,Urine Negative (Negative); Color,Urine Yellow; Glucose,Urine (UA) Trace (Negative); Hyaline Casts,Urine 9 /lpf (0-2); Ketones,Urine 1+ (Negative); Leukocyte Esterase,Urine Trace (Negative); Mucus,Urine Many /hpf; Nitrite,Urine Negative (Negative); Protein,Urine 1+ (Negative); Squamous Epithelial Cell,Urine <1 /hpf (0-4); Urobilinogen,Urine >12.0 mg/dL (<2.0); WBC,Urine 3 /hpf (0-5)
[2019-06-28 14:40] LABS: INR 0.9 (<1.2); Prothrombin Time 9.7 sec (9.0-12.0)
[2019-06-28 14:44] LABS: ALT 29 U/L (4-49); AST 24 U/L (17-59); African American GFR (CKD) >90 (>60 ml/min/1.73 sqM); Albumin 4.4 g/dL (3.5-5.0); Alkaline Phosphatase 73 U/L (38-126); Anion Gap 12 mmol/L; Blood Urea Nitrogen 20 mg/dL (9-20); Calcium 9.3 mg/dL (8.4-10.2); Carbon Dioxide 23 mmol/L (22-30); Chloride 104 mmol/L (98-107); Glucose 179 mg/dL (74-99); Non-African American GFR(CKD) >90 (>60 ml/min/1.73 sqM); Partial Thromboplastin Time 21.7 sec (22.0-30.0); Potassium 4.3 mmol/L (3.5-5.1); Sodium 139 mmol/L (137-145); Total Bilirubin 0.9 mg/dL (0.2-1.3); Total Protein 7.2 g/dL (6.3-8.2)
[2019-06-28 14:52] LABS: WBC 0.8 k/uL (3.8-10.6)
[2019-06-28 14:53] LABS: Platelet Count 26 k/uL (150-450)
[2019-06-28] MEDS: SODIUM CHLORIDE 0.9% 1,000 ML IV SCH (14:55)
[2019-06-28] MEDS ORDERED: SODIUM CHLORIDE 0.9% 1,000 ML IV SCH (15:15)
[2019-06-28] MEDS ORDERED: LINEZOLID 600 MG in DEXTROSE/WATER 1 300ML.BAG IVPB STA (15:19)
[2019-06-28] MEDS ORDERED: CEFEPIME 2 GM in SODIUM CHLORIDE 0.9% 100 ML IVPB STA (15:19)
--- NOTE | 2019-06-28 15:32 | XR ---
EXAMINATION TYPE: XR chest 2V DATE OF EXAM: 06/28/2019 COMPARISON: 06/19/2019 HISTORY: 48 year-old male fever and biopsy TECHNIQUE: AP and lateral views FINDINGS: Heart normal size. Aorta and pulmonary vasculature within normal limits. No consolidation, pneumothor ax, or pleural effusion. Spinal stimulator recent along the mid thoracic spinal canal. Additional ramya ds extend posteriorly along the midline beyond the [id number]. IMPRESSION: No acute cardiopulmonary process. Spinal stimulator array within the mid thoracic spinal canal and al so extending up along the posterior midline beyond the [id number].
--- NOTE | 2019-06-28 15:40 | CT ---
EXAMINATION TYPE: CT lumbar spine w con DATE OF EXAM: 06/28/2019 COMPARISON: Correlation CT biopsy 06/25/2019 HISTORY: 48-year-old male status post marrow biopsy Sunday. Pt c/o fever, back pain, BLE pain. TECHNIQUE: Contiguous axial scanning of the lumbar spine performed with IV Contrast, patient injected with 100 mL of Isovue 300. Coronal/sagittal reconstructions performed. CT DLP: 1058.6 mGycm Automated exposure control for dose reduction was used. FINDINGS: Stable stellate bone island right sacrum. SI joints appear intact. The apparent biopsy site posterior right iliac bone shows no discrete osseous abnormality or signific ant surrounding soft tissue abnormality. Some streaky density within the subcutaneous adipose, refer to axial image 75 could be dependent edema or some inflammation. Facet arthropathy lower lumbar spine. Moderate degenerative disc disease L5-S1 with disc osteophyte complex in a right paracentral disc pro trusion probably abutting the traversing right S1 nerve root. There is moderate left greater than rig ht neuroforaminal stenosis at L5-S1 no significant spinal canal stenosis. Mild bulging disks other levels of the lumbar spine without significant canal or foraminal stenosis a ppreciated. Vertebral body heights are preserved and alignment is maintained. IMPRESSION: 1. MODERATE DEGENERATIVE DISC DISEASE AT L5-S1 WITH DISC OSTEOPHYTE COMPLEX AND MILD FACET ARTHROPATH Y. 2. CHANGES RESULTING IN MODERATE LEFT GREATER THAN RIGHT NEURAL FORAMINAL STENOSIS AT THIS LEVEL. 3. HOWEVER, THERE IS ALSO A SUPERIMPOSED RIGHT PARACENTRAL HERNIATION THAT MAY ABUT THE TRAVERSING RI GHT S1 NERVE ROOT. 4. THE PATIENT'S RIGHT POSTERIOR ILIAC BONE BIOPSY SITE SHOWS NO DISCRETE CT ABNORMALITY. THERE IS SO ME OVERLYING STRANDING OF THE SUBCUTANEOUS ADIPOSE THAT REPRESENT DEPENDENT EDEMA OR CELLULITIS. CLIN ICALLY CORRELATE.
--- NOTE | 2019-06-28 16:18 | ED ---
General Adult HPI <Jamil Mckay - Last Filed: 06/28/19 16:39> - General Source: patient, EMS, RN notes reviewed, old records reviewed Mode of arrival: EMS Limitations: no limitations <Marylu Braswell - Last Filed: 06/28/19 16:45> - General Chief complaint: Recheck/Abnormal Lab/Rx Stated complaint: Back pain Time Seen by Provider: 06/28/19 14:19 - History of Present Illness Initial comments: Patient is a 48-year-old male with chief complaint of fever, lower back pain. Patient is on chemotherapy for Acute erythromoid Leukemia. He Was Admitted on 06/20/19. Patient Reports That during His Admission He Did Receive a Lumbar Spine bone marrow Biopsy. He Was Discharged Yesterday. Upon Discharge Patient Continued to Have Fevers. He Had a Fever Today of 102. He Denies Any Significant Headache. Does Complain of Some Mild Chest Discomfort, As Well As This Lower Back Pain with Pain Rating down His Legs. Patient denies any saddle anesthesia. He reports he did have a darker urine. Patient denies any associated abdominal pain at this time. (Marylu Braswell) - Related Data Home Medications Medication Instructions Recorded Confirmed Montelukast Sodium [Singulair] 10 mg PO HS 06/01/16 06/19/19 Albuterol Inhaler [Ventolin Hfa 2 puff INHALATION RT-Q6H PRN 10/15/17 06/19/19 Inhaler] Beclomethasone Dipropionate [Qvar 2 puff INHALATION RT-BID 10/15/17 06/19/19 80 mcg] Venlafaxine HCl [Effexor XR] 150 mg PO HS 10/15/17 06/19/19 Acyclovir [Zovirax] 400 mg PO BID 04/02/19 06/19/19 Metoprolol Tartrate [Lopressor] 25 mg PO HS 06/03/19 06/19/19 Venetoclax [Venclexta] 400 mg PO DAILY@1630 06/19/19 06/19/19 Voriconazole 100 mg PO DAILY@1130 06/19/19 06/19/19 Previous Rx's Medication Instructions Recorded Divalproex [Depakote] 500 mg PO BID tablet. 01/27/19 metFORMIN HCL [Glucophage] 500 mg PO PC-SUPPER #0 02/19/19 Zolpidem [Ambien] 5 mg PO HS PRN #30 tab 06/09/19 Amoxicillin/Potassium Clav 1 tab PO Q12HR #20 tab 06/27/19 [Augmentin 875-125 Tablet] Allergies Allergy/AdvReac Type Severity Reaction Status Date / Time naproxen [From Naprosyn] Allergy Unknown Rash/Hives Verified 06/28/19 13:56 adhesive tape Allergy Rash/Hives Verified 06/28/19 13:56 ibuprofen Allergy Itching Verified 06/28/19 13:56 mold Allergy Unknown Verified 06/28/19 13:56 vancomycin Allergy Rash/Hives Verified 06/28/19 13:56 carrot AdvReac Dyspnea Verified 06/28/19 13:56 chocolate flavor AdvReac Dyspnea Verified 06/28/19 13:56 grass pollen-perennial rye, AdvReac Dyspnea Verified 06/28/19 13:56 standar Review of Systems ROS Other: All systems not noted in ROS Statement are negative. <Jamil Mckay - Last Filed: 06/28/19 16:39> ROS Other: All systems not noted in ROS Statement are negative. <Marylu Braswell - Last Filed: 06/28/19 16:45> ROS Statement: Those systems with pertinent positive or pertinent negative responses have been documented in the HPI. Past Medical History Past Medical History: Asthma, Cancer, Chest Pain / Angina, Diabetes Mellitus, GERD/Reflux, GI Bleed, Hyperlipidemia, Hypertension, Myocardial Infarction ([place]), Musculoskeletal Disorder, Osteoarthritis (OA), Sleep Apnea/CPAP/BIPAP Additional Past Medical History / Comment(s): Recent left lower abdominal pain/left urethral stone/pancytopenia. NIDDM type II, neuropathy bilateral hands/feet, colitis, hx lower GI bleed, CPAP use, chronic cervical/lumbar pain- has neurostimulator to both sites, bilateral carpal tunnel syndrome, occasional tinnitis, "soft" cardiac murmur. Last Myocardial Infarction Date:: 2004 History of Any Multi-Drug Resistant Organisms: None Reported Past Surgical History: Heart Catheterization With Stent, Hernia Repair, Joint Replacement Additional Past Surgical History / Comment(s): Bone marrow aspiration/biopsy, right knee arthroscopy X3, right total knee replacement with revision, left knee arthroscopy, cardiac stent X1, stent placed for kidney stone and then removed, COLONOSCOPY, cervical and lumbar neurostimulator implants, left inguinal hernia repair. Past Anesthesia/Blood Transfusion Reactions: No Reported Reaction Date of Last Stent Placement:: 2004 Past Psychological History: Anxiety, Bipolar, Depression Smoking Status: Current some day smoker Past Alcohol Use History: None Reported Past Drug Use History: None Reported - Past Family History Father Family Medical History: Congestive Heart Failure (CHF), Deep Vein Thrombosis (DVT), Myocardial Infarction ([place]), Pulmonary Embolus Additional Family Medical History / Comment(s): [place] at age 38. "hole in colon". Mother Family Medical History: Cancer, COPD, Diabetes Mellitus, Hyperlipidemia Additional Family Medical History / Comment(s): Mother had breast and lung canc er. She of lung cancer in her 60s. Sister(s) Family Medical History: Diabetes Mellitus, Liver Disease Additional Family Medical History / Comment(s): Bi-polar, anxiety, hysterectomy, fatty liver. Brother(s) History Unknown: Yes <Marylu Braswell - Last Filed: 06/28/19 16:45> General Exam Limitations: no limitations Head exam: Present: atraumatic, normocephalic, normal inspection Eye exam: Present: normal appearance, PERRL, EOMI. Absent: scleral icterus, conjunctival injection, periorbital swelling ENT exam: Present: normal exam, mucous membranes moist Neck exam: Present: normal inspection. Absent: tenderness, meningismus, lymphadenopathy Respiratory exam: Present: normal lung sounds bilaterally. Absent: respiratory distress, wheezes, rales, rhonchi, stridor Cardiovascular Exam: Present: regular rate, normal rhythm, normal heart sounds. Absent: systolic murmur, diastolic murmur, rubs, gallop, clicks GI/Abdominal exam: Present: soft, normal bowel sounds. Absent: distended, tenderness, guarding, rebound, rigid Extremities exam: Present: normal inspection, full ROM, normal capillary refill, other (Some tenderness over the lumbar spine at biopsy site. No surrounding erythema.). Absent: tenderness, pedal edema, joint swelling, calf tenderness Back exam: Present: normal inspection Neurological exam: Present: alert, oriented X3, CN II-XII intact <Marylu Braswell - Last Filed: 06/28/19 16:45> - General Exam Comments Initial Comments: 48-year-old male. Alert and oriented 3. (Marylu Braswell) Course Vital Signs 06/28/19 06/28/19 06/28/19 13:56 14:30 15:52 Temperature 102.4 F H 102 F H Pulse Rate 98 100 100 Respiratory 18 18 18 Rate Blood Pressure 133/72 130/69 132/72 O2 Sat by Pulse 100 98 98 Oximetry Medical Decision Making - Lab Data Result diagrams: 06/28/19 14:01 06/28/19 14:01 <Jamil Mckay - Last Filed: 06/28/19 16:39> - Lab Data Result diagrams: 06/28/19 14:01 06/28/19 14:01 - Radiology Data Radiology results: report reviewed <Marylu Braswell - Last Filed: 06/28/19 16:45> - Medical Decision Making 48-year-old presented for evaluation of fever. Patient is currently on chemotherapy with history of leukemia. He had a bone marrow biopsy of lumbar spine. He had recent PICC line approximately 2 weeks ago which has been removed. He has no reported. No URI symptoms. No dysuria. No cough. No abdominal pain. No rash. There is concern for bacteremia in this patient. He is initiated on cefepime and Venessa as he has a vancomycin ALLERGY. Discussed case with the patient's admitting physician Dr. Dotson who will accept. (Jamil Mckay) Correction to Dr. Mckay dictation: Patient was started on linezolid with a history of vancomycin ALLERGY. 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 Differential Comment Manual Slide Review Performed Hypochromasia Slight Hyperchromasia Slight Poikilocytosis Marked PT (9.0-12.0) sec INR (<1.2) APTT (22.0-30.0) sec Sodium 139 (137-145) mmol/L Potassium 4.3 (3.5-5.1) mmol/L Chloride 104 (98-107) mmol/L Carbon Dioxide 23 (22-30) mmol/L Anion Gap 12 mmol/L BUN 20 (9-20) mg/dL Creatinine 0.69 (0.66-1.25) mg/dL Est GFR (CKD-EPI)AfAm >90 (>60 ml/min/1.73 sqM) Est GFR (CKD-EPI)NonAf >90 (>60 ml/min/1.73 sqM) Glucose 179 H (74-99) mg/dL Plasma Lactic Acid Cory 3.6 H* (0.7-2.0) mmol/L Calcium 9.3 (8.4-10.2) mg/dL Total Bilirubin 0.9 (0.2-1.3) mg/dL AST 24 (17-59) U/L ALT 29 (4-49) U/L Alkaline Phosphatase 73 (38-126) U/L Troponin I (0.000-0.034) ng/mL Total Protein 7.2 (6.3-8.2) g/dL Albumin 4.4 (3.5-5.0) g/dL Urine Color Urine Appearance (Clear) Urine pH (5.0-8.0) Ur Specific [place] (1.001-1.035) Urine Protein (Negative) Urine Glucose (UA) (Negative) Urine Ketones (Negative) Urine Blood (Negative) Urine Nitrite (Negative) Urine Bilirubin (Negative) Urine Urobilinogen (<2.0) mg/dL Ur Leukocyte Esterase (Negative) Urine WBC (0-5) /hpf Ur Squamous Epith Cells (0-4) /hpf Hyaline Casts (0-2) /lpf Urine Mucus (None) /hpf Influenza Type A RNA (Not Detectd) Influenza Type B (PCR) (Not Detectd) 06/28/19 06/28/1906/28/20 Range/Units 14:01 14:01 14:11 WBC (3.8-10.6) k/uL RBC (4.30-5.90) m/uL Hgb (13.0-17.5) gm/dL Hct (39.0-53.0) % MCV (80.0-100.0) fL MCH (25.0-35.0) pg MCHC (31.0-37.0) g/dL RDW (11.5-15.5) % Plt Count (150-450) k/uL Neutrophils # Differential Comment Manual Slide Review Hypochromasia Hyperchromasia Poikilocytosis PT 9.7 (9.0-12.0) sec INR 0.9 (<1.2) APTT 21.7 L (22.0-30.0) sec Sodium (137-145) mmol/L Potassium (3.5-5.1) mmol/L Chloride (98-107) mmol/L Carbon Dioxide (22-30) mmol/L Anion Gap mmol/L BUN (9-20) mg/dL Creatinine (0.66-1.25) mg/dL Est GFR (CKD-EPI)AfAm (>60 ml/min/1.73 sqM) Est GFR (CKD-EPI)NonAf (>60 ml/min/1.73 sqM) Glucose (74-99) mg/dL Plasma Lactic Acid Cory (0.7-2.0) mmol/L Calcium (8.4-10.2) mg/dL Total Bilirubin (0.2-1.3) mg/dL AST (17-59) U/L ALT (4-49) U/L Alkaline Phosphatase (38-126) U/L Troponin I <0.012 (0.000-0.034) ng/mL Total Protein (6.3-8.2) g/dL Albumin (3.5-5.0) g/dL Urine Color Urine Appearance (Clear) Urine pH (5.0-8.0) Ur Specific [place] (1.001-1.035) Urine Protein (Negative) Urine Glucose (UA) (Negative) Urine Ketones (Negative) Urine Blood (Negative) Urine Nitrite (Negative) Urine Bilirubin (Negative) Urine Urobilinogen (<2.0) mg/dL Ur Leukocyte Esterase (Negative) Urine WBC (0-5) /hpf Ur Squamous Epith Cells (0-4) /hpf Hyaline Casts (0-2) /lpf Urine Mucus (None) /hpf Influenza Type A RNA Not Detected (Not Detectd) Influenza Type B (PCR) Not Detected (Not Detectd) 06/28/19 Range/Units 14:24 WBC (3.8-10.6) k/uL RBC (4.30-5.90) m/uL Hgb (13.0-17.5) gm/dL Hct (39.0-53.0) % MCV (80.0-100.0) fL MCH (25.0-35.0) pg MCHC (31.0-37.0) g/dL RDW (11.5-15.5) % Plt Count (150-450) k/uL Neutrophils # Differential Comment Manual Slide Review Hypochromasia Hyperchromasia Poikilocytosis PT (9.0-12.0) sec INR (<1.2) APTT (22.0-30.0) sec Sodium (137-145) mmol/L Potassium (3.5-5.1) mmol/L Chloride (98-107) mmol/L Carbon Dioxide (22-30) mmol/L Anion Gap mmol/L BUN (9-20) mg/dL Creatinine (0.66-1.25) mg/dL Est GFR (CKD-EPI)AfAm (>60 ml/min/1.73 sqM) Est GFR (CKD-EPI)NonAf (>60 ml/min/1.73 sqM) Glucose (74-99) mg/dL Plasma Lactic Acid Cory (0.7-2.0) mmol/L Calcium (8.4-10.2) mg/dL Total Bilirubin (0.2-1.3) mg/dL AST (17-59) U/L ALT (4-49) U/L Alkaline Phosphatase (38-126) U/L Troponin I (0.000-0.034) ng/mL Total Protein (6.3-8.2) g/dL Albumin (3.5-5.0) g/dL Urine Color Yellow Urine Appearance Clear (Clear) Urine pH 6.0 (5.0-8.0) Ur Specific [place] 1.030 (1.001-1.035) Urine Protein 1+ H (Negative) Urine Glucose (UA) Trace H (Negative) Urine Ketones 1+ H (Negative) Urine Blood Negative (Negative) Urine Nitrite Negative (Negative) Urine Bilirubin 1+ H (Negative) Urine Urobilinogen >12.0 (<2.0) mg/dL Ur Leukocyte Esterase Trace H (Negative) Urine WBC 3 (0-5) /hpf Ur Squamous Epith Cells <1 (0-4) /hpf Hyaline Casts 9 H (0-2) /lpf Urine Mucus Many H (None) /hpf Influenza Type A RNA (Not Detectd) Influenza Type B (PCR) (Not Detectd) - Radiology Data Chest x-rays negative for any acute cardio pulmonary process. Spinal stimulator within the thoracic canal extending up the posterior midline be on the field of view. CT shows moderate degenerative disc disease L5-S1 with disc osteophyte complex a mild facet arthropathy. Changes resulting in moderate left greater than right n eural foraminal stenosis at this level. Further superimposed right paracentral herniation that may about the transversing right S1 nerve root. The patient's right posterior iliac bone biopsy site shows discrete CT abnormality. There is some overlying straining of the subcutaneous adipose it could represent dependent edema or cellulitis. Clinically correlate. (Marylu Braswell) Disposition Is patient prescribed a controlled substance at d/c from ED?: No <Jamil Mckay - Last Filed: 06/28/19 16:39> Is patient prescribed a controlled substance at d/c from ED?: No Time of Disposition: 16:45 <Marylu Braswell - Last Filed: 06/28/19 16:45> Clinical Impression: Neutropenic fever Disposition: ADMITTED IP TO THIS HOSP Condition: Stable Referrals: Veronika Dotson MD [Primary Care Provider] - 1-2 days
[2019-06-28] MEDS ORDERED: ACETAMINOPHEN TAB 325 MG TAB PO PRN (16:45)
[2019-06-28] MEDS ORDERED: ONDANSETRON 4 MG/2 ML VIAL IVP PRN (16:45)
[2019-06-28] MEDS ORDERED: KETOROLAC 30 MG/ML 1 ML VIAL IVP PRN (16:45)
[2019-06-28] MEDS ORDERED: NALOXONE 0.4 MG/ML 1 ML VIAL IV PRN (16:45)
[2019-06-28] MEDS ORDERED: ONDANSETRON 4 MG/2 ML VIAL IVP STA (17:41)
[2019-06-28 20:57] LABS: Glucose,Whole Blood 143 mg/dL (75-99)
[2019-06-28] MEDS ORDERED: ALBUTEROL NEBULIZED 2.5 MG/3 ML INHALATION PRN (21:48)
[2019-06-28] MEDS: INSULIN ASPART (NovoLOG) 100 UNIT/ML VIAL SQ SCH (22:15)
[2019-06-28] MEDS: DIVALPROEX 500 MG TABLET.DR PO SCH (22:24)
[2019-06-28] MEDS: AMOXIC-POT CLAV 875-125MG 1 EACH TAB PO SCH (22:24)
[2019-06-28] MEDS: MONTELUKAST 10 MG TAB PO SCH (22:24)
[2019-06-28] MEDS: METOPROLOL TARTRATE 25 MG TAB PO SCH (22:24)
[2019-06-28] MEDS: ACYCLOVIR 200 MG CAP PO SCH (22:24)
[2019-06-28] MEDS: VENLAFAXINE HCL ER 150 MG CAP PO SCH (22:33)
[2019-06-29] MEDS: SODIUM CHLORIDE 0.9% 1,000 ML IV SCH ×3 (02:39→20:53)
[2019-06-29 07:46] LABS: Glucose,Whole Blood 98 mg/dL (75-99)
[2019-06-29] MEDS: INSULIN ASPART (NovoLOG) 100 UNIT/ML VIAL SQ SCH ×4 (07:48→20:52)
[2019-06-29] MEDS: FLUTICASONE 110 MCG INHALER INHALATION SCH ×2 (08:01→21:08)
[2019-06-29] MEDS: AMOXIC-POT CLAV 875-125MG 1 EACH TAB PO SCH ×2 (09:06→20:52)
[2019-06-29] MEDS: ACYCLOVIR 200 MG CAP PO SCH ×2 (09:06→20:52)
[2019-06-29] MEDS: DIVALPROEX 500 MG TABLET.DR PO SCH ×2 (09:06→20:52)
[2019-06-29] MEDS: PANTOPRAZOLE 40 MG/10 ML VIAL IV SCH (09:07)
--- NOTE | 2019-06-29 11:10 | P.HPIM ---
History of Present Illness H&P Date: 06/29/19 Fransisco Burnham is a 48-year-old male patient who was recently discharged from [facility] after a prolonged admission for neutropenic fever, he was discharged home on oral antibiotic,patient was at home for 1 day when he started having pain in the right lower back and started having elevated temperature of 102.4 he presented to emergency room with complaints of fever. Patient has a known history of acute erythroid leukemia, he received chemotherapy via a PICC line in the left arm which was removed about 2 weeks ago. Patient was recently admitted for inpatient chemotherapy and discharged on 06/09/2019. Then readmitted on 06/19/2019 for neutropenic fever he was discharged on 06/27/2019 . Patient reports that the fever started last night he presented to the ER. Additional medical history includes diabetes mellitus type 2, hypertension, seizure anxiety depression and bipolar. EKG completed showing normal sinus rhythm. Normal EKG. Chest x-ray completed showing no acute process. Influenza negative. White blood cell is 0.8, computed tomography scan of the lumbar spine is showing some soft tissue stranding over the recent on marrow biopsy site which may be a sign of cellulitis causing the recent fever. Patient was given IV antibiotic in the emergency room and was admitted to medical floor infectious disease and oncology consultation were requested Past Medical History Past Medical History: Asthma, Cancer, Chest Pain / Angina, Diabetes Mellitus, GERD/Reflux, GI Bleed, Hyperlipidemia, Hypertension, Myocardial Infarction ([place]), Musculoskeletal Disorder, Osteoarthritis (OA), Sleep Apnea/CPAP/BIPAP Additional Past Medical History / Comment(s): Recent left lower abdominal pain/left urethral stone/pancytopenia (February). NIDDM type II, neuropathy bilateral hands/feet, colitis, hx lower GI bleed, CPAP use, chronic cervical/lumbar pain-has neurostimulator to both sites, bilateral carpal tunnel syndrome, occasional tinnitis, "soft" cardiac murmur. Last Myocardial Infarction Date:: 2004 History of Any Multi-Drug Resistant Organisms: None Reported Past Surgical History: Heart Catheterization With Stent, Hernia Repair, Joint Replacement Additional Past Surgical History / Comment(s): Bone marrow aspiration/biopsy, right knee arthroscopy X3, right total knee replacement with revision, left knee arthroscopy, cardiac stent X1, stent placed for kidney stone and then removed, COLONOSCOPY, cervical and lumbar neurostimulator implants, left inguinal hernia repair. Past Anesthesia/Blood Transfusion Reactions: No Reported Reaction Date of Last Stent Placement:: 2004 Past Psychological History: Anxiety, Bipolar, Depression Additional Psychological History / Comment(s): and lives with the and child and sister and brother in law. Medically disabled with neuropathy and bipolar disorder. experience- [employer]. International travel. 1 pet cats in the home instructed not to change the box and 1 dog. Smoking Status: Current some day smoker Past Alcohol Use History: None Reported Additional Past Alcohol Use History / Comment(s): STARTED SMOKING AT AGE 23(1994), Past Drug Use History: None Reported - Past Family History Father Family Medical History: Congestive Heart Failure (CHF), Deep Vein Thrombosis (DVT), Myocardial Infarction ([place]), Pulmonary Embolus Additional Family Medical History / Comment(s): [place] at age 38. "hole in colon". Mother Family Medical History: Cancer, COPD, Diabetes Mellitus, Hyperlipidemia Additional Family Medical History / Comment(s): Mother had breast and lung cancer. She of lung cancer in her 60s. Sister(s) Family Medical History: Diabetes Mellitus, Liver Disease Additional Family Medical History / Comment(s): Bi-polar, anxiety, hysterectomy, fatty liver. Brother(s) History Unknown: Yes Medications and Allergies Home Medications Medication Instructions Recorded Confirmed Type Montelukast Sodium [Singulair] 10 mg PO HS 06/01/16 06/28/19 History Albuterol Inhaler [Ventolin Hfa 2 puff INHALATION RT-Q6H PRN 10/15/17 06/28/19 History Inhaler] Beclomethasone Dipropionate [Qvar 2 puff INHALATION RT-BID 10/15/17 06/28/19 History 80 mcg] Venlafaxine HCl [Effexor XR] 150 mg PO HS 10/15/17 06/28/19 History Divalproex [Depakote] 500 mg PO BID tablet. 01/27/19 06/28/19 Rx metFORMIN HCL [Glucophage] 500 mg PO PC-SUPPER #0 02/19/19 06/28/19 Rx Acyclovir [Zovirax] 400 mg PO BID 04/02/19 06/28/19 History Metoprolol Tartrate [Lopressor] 25 mg PO HS 06/03/19 06/28/19 History Zolpidem [Ambien] 5 mg PO HS PRN #30 tab 06/09/19 06/28/19 Rx Venetoclax [Venclexta] 400 mg PO DAILY@1630 06/19/19 06/28/19 History Voriconazole 100 mg PO DAILY@1130 06/19/19 06/28/19 History Amoxicillin/Potassium Clav 1 tab PO Q12HR #20 tab 06/27/19 06/28/19 Rx [Augmentin 875-125 Tablet] Allergies Allergy/AdvReac Type Severity Reaction Status Date / Time naproxen [From Naprosyn] Allergy Unknown Rash/Hives Verified 06/28/19 18:11 adhesive tape Allergy Rash/Hives Verified 06/28/19 18:11 ibuprofen Allergy Itching Verified 06/28/19 18:11 mold Allergy Unknown Verified 06/28/19 18:11 vancomycin Allergy Rash/Hives Verified 06/28/19 18:11 carrot AdvReac Dyspnea Verified 06/28/19 18:11 chocolate flavor AdvReac Dyspnea Verified 06/28/19 18:11 grass pollen-perennial rye, AdvReac Dyspnea Verified 06/28/19 18:11 standar Physical Exam Vitals: Vital Signs Temp Pulse Pulse Resp BP BP Pulse Ox 06/29/19 05:00 97.7 F 81 16 118/74 99 06/28/19 21:28 97.9 F 84 16 115/67 98 06/28/19 17:19 100.3 F H 89 18 124/69 97 06/28/19 15:52 102 F H 100 18 132/72 98 06/28/19 14:30 100 18 130/69 98 06/28/19 13:56 102.4 F H 98 18 133/72 100 Intake and Output 06/28/19 06/29/19 06/29/19 22:59 06:59 14:59 Intake Total 1600 1400 Balance 1600 1400 Intake: Intake, IV Titration 400 800 Amount Sodium Chloride 0.9% 1, 800 000 ml @ 100 mls/hr IV . Q10H TABITHA Rx#:[id number] Sodium Chloride 0.9% 1, 400 000 ml @ 100 mls/hr IV . Q10H TABITHA Rx#:[id number] Oral 1200 600 Other: Voiding Method Toilet Toilet # Voids 4 2 Weight 89.811 kg In general patient is alert and oriented 3 in no apparent distress HEENT head normocephalic and atraumatic Neck is supple no JVD no goiter no lymphadenopathy Chest exam reveals a few scattered rhonchi no wheezing Cardiac exam reveals regular heart sounds no gallops no murmurs Abdomen is soft nontender no organomegaly with normal bowel sounds Extremity exam reveals no edema no cyanosis or clubbing Neurological examination reveals no gross focal deficit Results CBC & Chem 7: 06/28/19 14:01 06/28/19 14:01 Labs: Abnormal Lab Results - Last 24 Hours (Table) 06/28/19 06/28/19 06/28/19 Range/Units 13:50 14:01 14:01 WBC 0.8 L* (3.8-10.6) k/uL RBC 2.95 L (4.30-5.90) m/uL Hgb 8.2 L (13.0-17.5) gm/dL Hct 23.9 L (39.0-53.0) % Plt Count 26 L (150-450) k/uL APTT (22.0-30.0) sec Glucose 179 H (74-99) mg/dL POC Glucose (mg/dL) (75-99) mg/dL Plasma Lactic Acid Cory 3.6 H* (0.7-2.0) mmol/L Urine Protein (Negative) Urine Glucose (UA) (Negative) Urine Ketones (Negative) Urine Bilirubin (Negative) Ur Leukocyte Esterase (Negative) Hyaline Casts (0-2) /lpf Urine Mucus (None) /hpf 06/28/19 06/28/19 06/28/19 Range/Units 14:01 14:24 20:56 WBC (3.8-10.6) k/uL RBC (4.30-5.90) m/uL Hgb (13.0-17.5) gm/dL Hct (39.0-53.0) % Plt Count (150-450) k/uL APTT 21.7 L (22.0-30.0) sec Glucose (74-99) mg/dL POC Glucose (mg/dL) 143 H (75-99) mg/dL Plasma Lactic Acid Cory (0.7-2.0) mmol/L Urine Protein 1+ H (Negative) Urine Glucose (UA) Trace H (Negative) Urine Ketones 1+ H (Negative) Urine Bilirubin 1+ H (Negative) Ur Leukocyte Esterase Trace H (Negative) Hyaline Casts 9 H (0-2) /lpf Urine Mucus Many H (None) /hpf Thrombosis Risk Factor Assmnt - Choose All That Apply Each Factor Represents 1 point: Age 41-60 years, Obesity (BMI >25) Other Risk Factors: No Other congenital or acquired thrombophilia - If yes, enter type in comment: No Thrombosis Risk Factor Assessment Total Risk Factor Score: 2 Thrombosis Risk Factor Assessment Level: Low Risk Assessment and Plan Plan: 1. Febrile illness, no clear source of infection, patient is neutropenic, computed tomography scan is showing some stranding over the recent bone marrow biopsy site, otherwise no clear clinical or laboratory data of any sign of infection, oncology consultation and infectious disease consultation requested, patient was given cefepime, ceftriaxone, and linezolid in the emergency room awaiting further recommendation from infectious disease 2. Acute erythroid leukemia. Patient recently completed inpatient chemotherapy and discharged on 06/09/2019. Oncology services have been consulted. Planning bone marrow biopsy for later this week. Interventional radiology has been consulted. That is post bone marrow biopsy on 06/25/2019 results pending. 3. Possible GI bleed. Platelet with 10. Stool for occult blood has been ordered. Hemoglobin stable at 8.8. Stool for occult blood negative 4. Diabetes mellitus type 2. Metformin on hold sliding scale insulin ordered 5. Essential hypertension. Home meds resumed 6. History of bipolar depression. Home meds resumed 7. History of seizures. 8. Pancytopenia secondary to chemotherapy DVT prophylaxis SCDs. GI prophylaxis Pepcid Oncology and infectious disease consulted
[2019-06-29 12:06] LABS: Glucose,Whole Blood 104 mg/dL (75-99)
[2019-06-29] MEDS: VORICONAZOLE 200 MG TAB PO SCH (12:09)
[2019-06-29 17:27] LABS: Glucose,Whole Blood 114 mg/dL (75-99)
[2019-06-29 20:07] LABS: Glucose,Whole Blood 101 mg/dL (75-99)
[2019-06-29] MEDS: METOPROLOL TARTRATE 25 MG TAB PO SCH (20:52)
[2019-06-29] MEDS: VENLAFAXINE HCL ER 150 MG CAP PO SCH (20:52)
[2019-06-29] MEDS: MONTELUKAST 10 MG TAB PO SCH (20:52)
[2019-06-29] MEDS: ZOLPIDEM 5 MG TAB PO PRN (20:52)
[2019-06-30 07:08] LABS: Glucose,Whole Blood 101 mg/dL (75-99)
[2019-06-30] MEDS: INSULIN ASPART (NovoLOG) 100 UNIT/ML VIAL SQ SCH ×4 (07:43→21:04)
[2019-06-30] MEDS: FLUTICASONE 110 MCG INHALER INHALATION SCH ×2 (07:44→19:47)
[2019-06-30] MEDS: PANTOPRAZOLE 40 MG/10 ML VIAL IV SCH (07:52)
[2019-06-30] MEDS: DIVALPROEX 500 MG TABLET.DR PO SCH ×2 (07:52→20:22)
[2019-06-30] MEDS: AMOXIC-POT CLAV 875-125MG 1 EACH TAB PO SCH ×2 (07:52→20:23)
[2019-06-30] MEDS: ACYCLOVIR 200 MG CAP PO SCH ×2 (07:52→20:23)
[2019-06-30] MEDS: SODIUM CHLORIDE 0.9% 1,000 ML IV SCH ×3 (07:53→20:25)
[2019-06-30 08:04] LABS: ALT 26 U/L (4-49); AST 20 U/L (17-59); African American GFR (CKD) >90 (>60 ml/min/1.73 sqM); Albumin 3.8 g/dL (3.5-5.0); Alkaline Phosphatase 61 U/L (38-126); Anion Gap 10 mmol/L; Blood Urea Nitrogen 12 mg/dL (9-20); Carbon Dioxide 25 mmol/L (22-30); Chloride 105 mmol/L (98-107); Glucose 93 mg/dL (74-99); Non-African American GFR(CKD) >90 (>60 ml/min/1.73 sqM); Potassium 4.3 mmol/L (3.5-5.1); Sodium 140 mmol/L (137-145); Total Bilirubin 1.1 mg/dL (0.2-1.3); Total Protein 6.7 g/dL (6.3-8.2)
[2019-06-30 08:09] LABS: Hypochromasia Slight; MCH 27.6 pg (25.0-35.0); MCHC 33.6 g/dL (31.0-37.0); Mean Platelet Volume 7.9; Poikilocytosis Moderate; RBC 2.45 m/uL (4.30-5.90); RDW 15.5 % (11.5-15.5)
[2019-06-30 08:13] LABS: WBC 0.5 k/uL (3.8-10.6)
[2019-06-30 08:14] LABS: HGB 6.7 gm/dL (13.0-17.5)
[2019-06-30 08:17] LABS: Platelet Count 13 k/uL (150-450)
[2019-06-30] MEDS: VORICONAZOLE 200 MG TAB PO SCH (11:17)
--- NOTE | 2019-06-30 11:18 | P.PN ---
Subjective Progress Note Date: 06/30/19 Fransisco Burnham is a 48-year-old male patient who was recently discharged from [facility] after a prolonged admission for neutropenic fever, he was discharged home on oral antibiotic,patient was at home for 1 day when he started having pain in the right lower back and started having elevated temperature of 102.4 he presented to emergency room with complaints of fever. Patient has a known history of acute erythroid leukemia, he received chemotherapy via a PICC line in the left arm which was removed about 2 weeks ago. Patient was recently admitted for inpatient chemotherapy and discharged on 06/09/2019. Then readmitted on 06/19/2019 for neutropenic fever he was discharged on 06/27/2019 . Patient reports that the fever started last night he presented to the ER. Additional medical history includes diabetes mellitus type 2, hypertension, seizure anxiety depression and bipolar. EKG completed showing normal sinus rhythm. Normal EKG. Chest x-ray completed showing no acute process. Influenza negative. White blood cell is 0.8, computed tomography scan of the lumbar spine is showing some soft tissue stranding over the recent on marrow biopsy site which may be a sign of cellulitis causing the recent fever. Patient was given IV antibiotic in the emergency room and was admitted to medical floor infectious disease and oncology consultation were requested On 06/30/2019 patient is alert and oriented 3. Infectious disease and oncology services are following. Hemoglobin low the same 6.7 1 unit PRBCs have been ordered. Temp of 99.4 yesterday evening. Patient denies chest pain or shortness of breath. Patient denies nausea vomiting or diarrhea. Patient denies urinary frequency. Patient denies any open sores or recent exposure to sick contacts. Objective - Vital Signs Vital signs: Vital Signs Temp 97.1 F L 06/30/19 05:00 Pulse 78 06/30/19 05:00 Resp 18 06/30/19 08:00 BP 120/64 06/30/19 05:00 Pulse Ox 97 06/30/19 05:00 Intake & Output 06/29/19 06/30/19 06/30/19 18:59 06:59 18:59 Intake Total 800 3110 Balance 800 3110 Intake: Intake, IV Titration 800 1200 Amount Sodium Chloride 0.9% 1, 1200 000 ml @ 100 mls/hr IV . Q10H [facility] Rx#:[id number] Sodium Chloride 0.9% 1, 800 000 ml @ 100 mls/hr IV . Q10H [facility] Rx#:[id number] Oral 1910 Other: Voiding Method Toilet Toilet Toilet # Voids 1 - Exam In general patient is alert and oriented 3 in no apparent distress HEENT head normocephalic and atraumatic Neck is supple no JVD no goiter no lymphadenopathy Chest exam reveals a few scattered rhonchi no wheezing Cardiac exam reveals regular heart sounds no gallops no murmurs Abdomen is soft nontender no organomegaly with normal bowel sounds Extremity exam reveals no edema no cyanosis or clubbing Neurological examination reveals no gross focal deficit - Labs CBC & Chem 7: 06/30/19 07:04 06/30/19 07:05 Labs: Abnormal Lab Results - Last 24 Hours (Table) 06/29/19 06/29/19 06/29/19 Range/Units 11:40 17:20 20:06 WBC (3.8-10.6) k/uL RBC (4.30-5.90) m/uL Hgb (13.0-17.5) gm/dL Hct (39.0-53.0) % Plt Count (150-450) k/uL Creatinine (0.66-1.25) mg/dL POC Glucose (mg/dL) 104 H 114 H 101 H (75-99) mg/dL 06/30/19 06/30/19 06/30/19 Range/Units 07:00 07:04 07:05 WBC 0.5 L* (3.8-10.6) k/uL RBC 2.45 L (4.30-5.90) m/uL Hgb 6.7 L* D (13.0-17.5) gm/dL Hct 20.0 L (39.0-53.0) % Plt Count 13 L* (150-450) k/uL Creatinine 0.55 L (0.66-1.25) mg/dL POC Glucose (mg/dL) 101 H (75-99) mg/dL Microbiology - Last 24 Hours (Table) 06/28/19 14:01 Blood Culture - Preliminary Blood No Growth after 24 hours Assessment and Plan Assessment: 1. Febrile illness, no clear source of infection, patient is neutropenic, computed tomography scan is showing some stranding over the recent bone marrow biopsy site, otherwise no clear clinical or laboratory data of any sign of infection, oncology consultation and infectious disease consultation requested, patient was given cefepime, ceftriaxone, and linezolid in the emergency room awaiting further recommendation from infectious disease 2. Acute erythroid leukemia. Patient recently completed inpatient chemotherapy and discharged on 06/09/2019. Interventional radiology has been consulted. That is post bone marrow biopsy on 06/25/2019 results pending. 3. Back pain. CT of lumbar spine completed and reviewed. Back pain has subsided 4. Diabetes mellitus type 2. Metformin on hold sliding scale insulin ordered 5. Essential hypertension. Home meds resumed 6. History of bipolar depression. Home meds resumed 7. History of seizures. 8. Pancytopenia secondary to chemotherapy. Hemoglobin 6.71 unit of PRBCs has been ordered per oncology DVT prophylaxis SCDs. GI prophylaxis Pepcid Oncology and infectious disease consulted I performed an examination of the patient and discussed their management with the Nurse Practitioner. I have reviewed the Nurse Practitioner's notes and agree with the documented findings and plan of care
[2019-06-30 11:47] LABS: Glucose,Whole Blood 120 mg/dL (75-99)
--- NOTE | 2019-06-30 12:58 | CONS ---
CONSULTATION DATE OF SERVICE: 06/29/2019 REASON FOR CONSULTATION: Febrile neutropenia. HISTORY OF PRESENT ILLNESS: The patient is a 48-year-old, male with past medical history significant for erythroid leukemia and this patient recently had chemotherapy completed on 06/09/2019. The patient was admitted to the hospital on 06/19 with febrile neutropenia. This patient did have extensive workup. All his cultures were negative. The patient's antibiotic was switched to oral Augmentin and Levaquin and the patient discharged home on 06/27/2019. The patient says that he was doing well for at least 24 hours; however, the evening of presentation to the hospital the patient did have significant pain to his left iliac crest area where the patient did have a bone marrow biopsy done before the patient was discharged home. The patient is describing the pain to be more of an excruciating, almost 10/10 in severity without any improvement with Tylenol or the [place]. Hence, he presented to the hospital. The patient did not remember if he was having any fever at home. On arrival to the ER, patient noted to be febrile with temperature of 102.4 degrees Fahrenheit. The patient did have white count of 0.80. Influenza serology was negative. The patient's urine did show trace leukocyte esterase but no other abnormality. The patient's creatinine was 0.69. The patient's chest x- ray reported no acute cardiopulmonary process. He also had a lumbar spine CT completed, which shows moderate degenerative changes at L5-S1 disc and the right posterior iliac bone marrow biopsy site showed no discrete CT abnormality suspicious for cellulitis. The patient has been admitted to the hospital. The patient has been continued on oral Augmentin, which the patient was taking at home. Infectious Disease was consulted for further examination regarding antibiotic therapy. REVIEW OF SYSTEMS: Positive points have been mentioned in the HPI. The rest of the systems are negative. PAST MEDICAL HISTORY: Significant for acute erythroid leukemia, febrile neutropenia, diabetes mellitus, asthma, gastroesophageal reflux disease, hypertension, hyperlipidemia, [place], osteoarthritis, sleep apnea. PAST SURGICAL HISTORY: PTCA with stent, hernia repair, bone marrow biopsy, right knee replacement, and PICC line placement and subsequent removal. SOCIAL HISTORY: Current everyday smoker. No drinking or drug use. FAMILY HISTORY: Father with history of congestive heart failure, DVT, and PE. Mother with history of lung and breast cancer. ALLERGIES: NAPROXEN, IBUPROFEN, VANCOMYCIN. CURRENT MEDICATIONS: The patient is on Tylenol, Zovirax, Ventolin, Augmentin, Depakote, Flovent, NovoLog, Toradol, Lopressor, Singulair, , Zofran, Protonix, Effexor, Vfend, and Ambien. PHYSICAL EXAMINATION: Blood pressure is 123/68 with a pulse of 69, temperature 98.3, T-max is 102, he is 98% on room air. General description is a middle-aged male lying in bed in no distress. No tachypnea or accessory muscle of respiration use. HEENT examination shows pallor. No scleral icterus. Oral mucosa membrane is dry. No pharyngeal erythema or thrush. NECK: Trachea central. No thyromegaly. LUNGS: Unlabored breathing. Clear to auscultation. No wheeze or crackles. HEART: S1, S2. Regular rate and rhythm. ABDOMEN: Soft. No tenderness. No guarding or rigidity. EXTREMITIES: No edema of feet. Examination of the right iliac crest where the patient did have bone marrow biopsy, there is no evidence of any cellulitis. It was slightly tender to touch. Neurologically, patient is awake, alert, and oriented x3. Mood and affect normal. LABS: Hemoglobin is 8.2, white count is 0.8. BUN of 20, creatinine 0.6. Electrolytes have been normal. Liver enzymes are normal. 3.6, repeat is 1.4. UA not significantly positive. Influenza serology has been negative. Chest x-ray was negative. CT of the lumbosacral spine showed no evidence of any cellulitis or abscess. DIAGNOSTIC IMPRESSION: Patient in the hospital with febrile neutropenia. This patient presented with significant pain to his right iliac crest where the patient did have bone marrow biopsy. The patient currently with no obvious focus of infection in this patient. Chest x-ray was negative. UA has been negative. Abdomen was soft on examination. No evidence of any cellulitis at the bone marrow biopsy site. The patient apparently did have resolution of his fever with oral Augmentin, which the patient was on at home. PLAN: 1. We will hold on adding any further antibiotic therapy at this point as the patient's fever seems to have responded and continue with empiric Augmentin at this point. 2. We will check CRP and procalcitonin level. 3. We will follow his clinical condition and continue to further adjust medications as needed. Thank you for this consultation. We will follow this patient along with you. MMODL / IJN: [id number] /
[2019-06-30 17:21] LABS: Glucose,Whole Blood 138 mg/dL (75-99)
--- NOTE | 2019-06-30 17:50 | P.CONS ---
History of Present Illness - Reason for Consult Consult date: 06/30/19 Febrile neutropenia Requesting physician: Marylu Braswell - Chief Complaint intractable back pain (at BM Bx site) - History of Present Illness Mr. Burnham is a very pleasant 48-year-old male patient who is readmitted after being discharged just 2 days ago because of pain at the bone marrow biopsy site. There is no visible bruising, some mild swelling, no evide nce to suggest hematoma or ongoing bleeding, patient states his pain is controlled at this time. Incidentally, on admission patient was noted to have a fever of 102.4 Fahrenheit, he denied chills, sore throat, cough, nausea, vomiting, diarrhea or constipation, swelling, rash, he is tolerating oral intake, he is independently ambulatory. Patient is currently in treatment for acute erythroid leukemia, pending bone marrow biopsy results, to ensure remission and so that we can initiate G-CSF. Oral venetoclax on hold. See consult dated 06/20/19 for full malignancy details Review of Systems 14 point ROS is negative except as stated in HPI Past Medical History Past Medical History: Asthma, Cancer, Chest Pain / Angina, Diabetes Mellitus, GERD/Reflux, GI Bleed, Hyperlipidemia, Hypertension, Myocardial Infarction ([place]), Musculoskeletal Disorder, Osteoarthritis (OA), Sleep Apnea/CPAP/BIPAP Additional Past Medical History / Comment(s): Recent left lower abdominal pain/left urethral stone/pancytopenia (February). NIDDM type II, neuropathy bilateral hands/feet, colitis, hx lower GI bleed, CPAP use, chronic cervical/lumbar pain-has neurostimulator to both sites, bilateral carpal tunnel syndrome, occasional tinnitis, "soft" cardiac murmur. Last Myocardial Infarction Date:: 2004 History of Any Multi-Drug Resistant Organisms: None Reported Past Surgical History: Heart Catheterization With Stent, Hernia Repair, Joint Replacement Additional Past Surgical History / Comment(s): Bone marrow aspiration/biopsy, right knee arthroscopy X3, right total knee replacement with revision, left knee arthroscopy, cardiac stent X1, stent placed for kidney stone and then removed, COLONOSCOPY, cervical and lumbar neurostimulator implants, left inguinal hernia repair. Past Anesthesia/Blood Transfusion Reactions: No Reported Reaction Date of Last Stent Placement:: 2004 Past Psychological History: Anxiety, Bipolar, Depression Additional Psychological History / Comment(s): and lives with the and child and sister and brother in law. Medically disabled with neuropathy and bipolar disorder. experience- [employer]. International travel. 1 pet cats in the home instructed not to change the box and 1 dog. Smoking Status: Current some day smoker Past Alcohol Use History: None Reported Additional Past Alcohol Use History / Comment(s): STARTED SMOKING AT AGE 23(1994), Past Drug Use History: None Reported - Past Family History Father Family Medical History: Congestive Heart Failure (CHF), Deep Vein Thrombosis (DVT), Myocardial Infarction ([place]), Pulmonary Embolus Additional Family Medical History / Comment(s): [place] at age 38. "hole in colon". Mother Family Medical History: Cancer, COPD, Diabetes Mellitus, Hyperlipidemia Additional Family Medical History / Comment(s): Mother had breast and lung cancer. She of lung cancer in her 60s. Sister(s) Family Medical History: Diabetes Mellitus, Liver Disease Additional Family Medical History / Comment(s): Bi-polar, anxiety, hysterectomy, fatty liver. Brother(s) History Unknown: Yes Medications and Allergies Home Medications Medication Instructions Recorded Confirmed Type Montelukast Sodium [Singulair] 10 mg PO HS 06/01/16 06/28/19 History Albuterol Inhaler [Ventolin Hfa 2 puff INHALATION RT-Q6H PRN 10/15/17 06/28/19 History Inhaler] Beclomethasone Dipropionate [Qvar 2 puff INHALATION RT-BID 10/15/17 06/28/19 History 80 mcg] Venlafaxine HCl [Effexor XR] 150 mg PO HS 10/15/17 06/28/19 History Divalproex [Depakote] 500 mg PO BID tablet. 01/27/19 06/28/19 Rx metFORMIN HCL [Glucophage] 500 mg PO PC-SUPPER #0 02/19/19 06/28/19 Rx Acyclovir [Zovirax] 400 mg PO BID 04/02/19 06/28/19 History Metoprolol Tartrate [Lopressor] 25 mg PO HS 06/03/19 06/28/19 History Zolpidem [Ambien] 5 mg PO HS PRN #30 tab 06/09/19 06/28/19 Rx Venetoclax [Venclexta] 400 mg PO DAILY@1630 06/19/19 06/28/19 History Voriconazole 100 mg PO DAILY@1130 06/19/19 06/28/19 History Amoxicillin/Potassium Clav 1 tab PO Q12HR #20 tab 06/27/19 06/28/19 Rx [Augmentin 875-125 Tablet] Allergies Allergy/AdvReac Type Severity Reaction Status Date / Time naproxen [From Naprosyn] Allergy Unknown Rash/Hives Verified 06/28/19 18:11 adhesive tape Allergy Rash/Hives Verified 06/28/19 18:11 ibuprofen Allergy Itching Verified 06/28/19 18:11 mold Allergy Unknown Verified 06/28/19 18:11 vancomycin Allergy Rash/Hives Verified 06/28/19 18:11 carrot AdvReac Dyspnea Verified 06/28/19 18:11 chocolate flavor AdvReac Dyspnea Verified 06/28/19 18:11 grass pollen-perennial rye, AdvReac Dyspnea Verified 06/28/19 18:11 standar Physical Exam Vitals: Vital Signs Temp Pulse Pulse Resp BP BP Pulse Ox 06/30/19 16:00 77 18 06/30/19 15:19 98.3 F 77 18 108/65 97 06/30/19 14:01 98.5 F 72 18 108/62 98 06/30/19 13:31 98.4 F 78 18 115/67 98 06/30/19 13:21 98.1 F 80 18 115/68 97 06/30/19 13:00 98 F 77 16 114/70 98 06/30/19 08:00 18 06/30/19 05:00 97.1 F L 78 20 120/64 97 06/30/19 00:00 18 06/29/19 21:00 99.4 F 98 18 132/59 98 Intake and Output 06/30/19 06/30/19 06/30/19 06:59 14:59 22:59 Intake Total 1160 1210 310 Balance 1160 1210 310 Intake: Intake, IV Titration 800 900 Amount Sodium Chloride 0.9% 1, 800 900 000 ml @ 100 mls/hr IV . Q10H [facility] Rx#:[id number] Oral 360 Blood Product 310 310 Rc Irr As1 Unit 0 310 [id number] Other: Voiding Method Toilet Toilet Toilet # Voids 1 5 5 - Constitutional General appearance: average body habitus, cooperative, no acute distress - EENT Eyes: anicteric sclerae, EOMI ENT: hearing grossly normal, normal oropharynx - Neck Neck: no lymphadenopathy - Respiratory Respiratory: bilateral: CTA - Cardiovascular Rhythm: regular Heart sounds: normal: S1, S2 Abnormal Heart Sounds: no systolic murmur, no diastolic murmur, no rub, no S3 Gallop, no S4 Gallop, no click, no other leg Peripheral Edema: bilateral: None - Gastrointestinal General gastrointestinal: no absent bowel sounds, no decreased bowel sounds, no distended, no hepatomegaly, no hyperactive bowel sounds, normal bowel sounds, no organomegaly, no rigid, no scaphoid, soft, no splenomegaly, no tenderness, no umbilical hernia, no ventral hernia - Integumentary Integumentary: normal - Neurologic Neurologic: CNII-XII intact - Musculoskeletal Musculoskeletal: strength equal bilaterally - Psychiatric Psychiatric: A&O x's 3, appropriate affect, intact judgment & insight Results CBC & Chem 7: 06/30/19 07:04 06/30/19 07:05 Labs: Abnormal Lab Results - Last 24 Hours (Table) 06/29/19 06/29/19 06/30/19 Range/Units 17:20 20:06 07:00 WBC (3.8-10.6) k/uL RBC (4.30-5.90) m/uL Hgb (13.0-17.5) gm/dL Hct (39.0-53.0) % Plt Count (150-450) k/uL Creatinine (0.66-1.25) mg/dL POC Glucose (mg/dL) 114 H 101 H 101 H (75-99) mg/dL Crossmatch 06/30/19 06/30/19 06/30/19 Range/Units 07:04 07:05 10:24 WBC 0.5 L* (3.8-10.6) k/uL RBC 2.45 L (4.30-5.90) m/uL Hgb 6.7 L* D (13.0-17.5) gm/dL Hct 20.0 L (39.0-53.0) % Plt Count 13 L* (150-450) k/uL Creatinine 0.55 L (0.66-1.25) mg/dL POC Glucose (mg/dL) (75-99) mg/dL Crossmatch See Detail 06/30/19 06/30/19 Range/Units 11:44 17:11 WBC (3.8-10.6) k/uL RBC (4.30-5.90) m/uL Hgb (13.0-17.5) gm/dL Hct (39.0-53.0) % Plt Count (150-450) k/uL Creatinine (0.66-1.25) mg/dL POC Glucose (mg/dL) 120 H 138 H (75-99) mg/dL Crossmatch Microbiology - Last 24 Hours (Table) 06/28/19 14:01 Blood Culture - Preliminary Blood No Growth after 48 hours Comments: CT LS report reviewed Assessment and Plan (1) Pain Narrative/Plan: Patient's presenting symptom, pain controlled at the time of examination. Patient states pain in the area of recent bone marrow biopsy. Visually there is thing extraordinarily abnormal. CT of the lumbar spine report reviewed, nothing acutely noted other than small amt of dependent edema in the area. No other symptoms. Continue pain management and local treatment with warm compresses Current Visit: Yes Status: Acute Priority: High Code(s): R52 - PAIN, UNSPECIFIED SNOMED Code(s): 79769694 (2) Febrile neutropenia Narrative/Plan: ? if r/t pain and recent bone marrow. Pt does not look septic in appearance. Pancultures pending, patient continues on antibiotics as prescribed orally. ID consulted. No GCSF, pending BM results to confirm remission Current Visit: Yes Status: Acute Priority: High Code(s): D70.9 - NEUTROPENIA, UNSPECIFIED; R50.81 - FEVER PRESENTING WITH CONDITIONS CLASSIFIED ELSEWHERE SNOMED Code(s): 517946809 (3) Acute erythroid leukemia Narrative/Plan: Pending BM results to confirm some type of remission. Allo BMT in future Current Visit: No Status: Acute Priority: High Code(s): C94.00 - ACUTE ERYTHROID LEUKEMIA, NOT HAVING ACHIEVED REMISSION SNOMED Code(s): 09946123 (4) Pancytopenia Narrative/Plan: Transfuse irradiated blood products only Transfuse to keep hemoglobin 7 or higher. Hemoglobin 6.7 today. 1 unit of packed red blood cells ordered. Transfuse to keep platelets greater than 10,000. Platelets 13,000 today, no acute intervention No intervention for extremely low white count, secondary to disease as well as treatment of disease. Current Visit: Yes Status: Chronic Priority: High Code(s): D61.818 - OTHER PANCYTOPENIA SNOMED Code(s): 874179411 Plan: attests: I preformed history and physical examination of this patient, developed impression and plan of care, discussed with dictator. Agree with dictator's note, documented as a scribe.
[2019-06-30] MEDS: METOPROLOL TARTRATE 25 MG TAB PO SCH (20:22)
[2019-06-30] MEDS: MONTELUKAST 10 MG TAB PO SCH (20:23)
[2019-06-30] MEDS: VENLAFAXINE HCL ER 150 MG CAP PO SCH (20:23)
[2019-06-30] MEDS: ZOLPIDEM 5 MG TAB PO PRN (20:23)
[2019-06-30 20:36] LABS: Glucose,Whole Blood 125 mg/dL (75-99)
--- NOTE | 2019-06-30 21:32 | PN ---
PROGRESS NOTE DATE OF SERVICE: 06/30/2019 REASON FOR FOLLOWUP: Febrile neutropenia. INTERVAL HISTORY: The patient is currently afebrile. The patient has been breathing comfortably. The patient denies having any chest pain, shortness of breath or cough. No nausea, no vomiting. No abdominal pain. PHYSICAL EXAMINATION: On examination, blood pressure is 108/65 with a pulse of 77, temperature 98.3. He is 97% on room air. General description is a middle-aged male lying in bed in no distress. RESPIRATORY SYSTEM: Unlabored breathing. Clear to auscultation anteriorly. HEART: S1, S2. Regular rate and rhythm. ABDOMEN: Soft. No tenderness. LABS: Hemoglobin 6.7, white count 0.5. Creatinine is 0.55. Blood culture has been negative. DIAGNOSTIC IMPRESSION AND PLAN: Patient admitted to hospital with predominantly pain to his left right iliac crest, site of his wound biopsy, noticed to have a fever. The patient's fever has subsequently resolved. Currently he is only on oral Augmentin. Culture has been negative. Keep the patient on Augmentin and monitor his clinical course closely. Continue with supportive care. MMODL / IJN: [id number] /
[2019-07-01 07:12] LABS: Glucose,Whole Blood 100 mg/dL (75-99)
[2019-07-01] MEDS: FLUTICASONE 110 MCG INHALER INHALATION SCH (07:13)
[2019-07-01] MEDS: INSULIN ASPART (NovoLOG) 100 UNIT/ML VIAL SQ SCH ×2 (07:23→12:33)
[2019-07-01 07:26] LABS: HCT 23.6 % (39.0-53.0); MCHC 35.4 g/dL (31.0-37.0); MCV 81.9 fL (80.0-100.0); Poikilocytosis Moderate; RBC 2.88 m/uL (4.30-5.90); RDW 15.4 % (11.5-15.5)
[2019-07-01 07:49] LABS: ALT 27 U/L (4-49); AST 20 U/L (17-59); African American GFR (CKD) >90 (>60 ml/min/1.73 sqM); Albumin 4.2 g/dL (3.5-5.0); Alkaline Phosphatase 65 U/L (38-126); Anion Gap 12 mmol/L; Blood Urea Nitrogen 15 mg/dL (9-20); Calcium 9.5 mg/dL (8.4-10.2); Carbon Dioxide 25 mmol/L (22-30); Chloride 104 mmol/L (98-107); Glucose 98 mg/dL (74-99); Non-African American GFR(CKD) >90 (>60 ml/min/1.73 sqM); Potassium 4.4 mmol/L (3.5-5.1); Sodium 141 mmol/L (137-145); Total Protein 7.2 g/dL (6.3-8.2)
[2019-07-01 08:07] LABS: WBC 0.7 k/uL (3.8-10.6)
[2019-07-01 08:09] LABS: HGB 8.3 gm/dL (13.0-17.5); Platelet Count 14 k/uL (150-450)
[2019-07-01] MEDS: AMOXIC-POT CLAV 875-125MG 1 EACH TAB PO SCH (08:25)
[2019-07-01] MEDS: DIVALPROEX 500 MG TABLET.DR PO SCH (08:25)
[2019-07-01] MEDS: ACYCLOVIR 200 MG CAP PO SCH (08:25)
[2019-07-01] MEDS ORDERED: PANTOPRAZOLE 40 MG TABLET PO SCH (09:00)
--- NOTE | 2019-07-01 11:03 | P.PN ---
Subjective Progress Note Date: 07/01/19 Fransisco Burnham is a 48-year-old male patient who was recently discharged from [facility] after a prolonged admission for neutropenic fever, he was discharged home on oral antibiotic,patient was at home for 1 day when he started having pain in the right lower back and started having elevated temperature of 102.4 he presented to emergency room with complaints of fever. Patient has a known history of acute erythroid leukemia, he received chemotherapy via a PICC line in the left arm which was removed about 2 weeks ago. Patient was recently admitted for inpatient chemotherapy and discharged on 06/09/2019. Then readmitted on 06/19/2019 for neutropenic fever he was discharged on 06/27/2019 . Patient reports that the fever started last night he presented to the ER. Additional medical history includes diabetes mellitus type 2, hypertension, seizure anxiety depression and bipolar. EKG completed showing normal sinus rhythm. Normal EKG. Chest x-ray completed showing no acute process. Influenza negative. White blood cell is 0.8, computed tomography scan of the lumbar spine is showing some soft tissue stranding over the recent on marrow biopsy site which may be a sign of cellulitis causing the recent fever. Patient was given IV antibiotic in the emergency room and was admitted to medical floor infectious disease and oncology consultation were requested On 06/30/2019 patient is alert and oriented 3. Infectious disease and oncology services are following. Hemoglobin low the same 6.7 1 unit PRBCs have been ordered. Temp of 99.4 yesterday evening. Patient denies chest pain or shortness of breath. Patient denies nausea vomiting or diarrhea. Patient denies urinary frequency. Patient denies any open sores or recent exposure to sick contacts. On 07/01/2019 patient is alert and oriented 3 resting comfortably in bed. Patient remains afebrile. Infectious disease and oncology service is following. Patient had received 1 unit of PRBCs yesterday for hemoglobin of 6.7. Hemoglobin today 8.3 WBC 0.7, patient on neutropenic precautions. Patient denies any nausea vomiting or diarrhea. Patient denies any urinary burning or frequency. Patient denies any pain at site of bone marrow biopsy. Patient denies any concerns at this time. Objective - Vital Signs Vital signs: Vital Signs Temp 98.3 F 07/01/19 05:00 Pulse 72 07/01/19 05:00 Resp 18 07/01/19 05:00 BP 127/67 07/01/19 05:00 Pulse Ox 98 07/01/19 05:00 Intake & Output 06/30/19 07/01/19 07/01/19 18:59 06:59 18:59 Intake Total 1520 1920 240 Balance 1520 1920 240 Intake: Intake, IV Titration 900 1200 Amount Sodium Chloride 0.9% 1, 900 1200 000 ml @ 100 mls/hr IV . Q10H [facility] Rx#:[id number] Oral 720 240 Blood Product 620 Rc Irr As1 Unit 310 [id number] Other: Voiding Method Toilet Toilet # Voids 5 1 - Labs CBC & Chem 7: 07/01/19 07:01 07/01/19 07:01 Labs: Abnormal Lab Results - Last 24 Hours (Table) 06/30/19 06/30/19 06/30/19 Range/Units 10:24 11:44 17:11 WBC (3.8-10.6) k/uL RBC (4.30-5.90) m/uL Hgb (13.0-17.5) gm/dL Hct (39.0-53.0) % Creatinine (0.66-1.25) mg/dL POC Glucose (mg/dL) 120 H 138 H (75-99) mg/dL Crossmatch See Detail 06/30/19 07/01/19 07/01/19 Range/Units 20:34 07:01 07:01 WBC 0.7 L* (3.8-10.6) k/uL RBC 2.88 L (4.30-5.90) m/uL Hgb 8.3 L D (13.0-17.5) gm/dL Hct 23.6 L (39.0-53.0) % Creatinine 0.61 L (0.66-1.25) mg/dL POC Glucose (mg/dL) 125 H (75-99) mg/dL Crossmatch 07/01/19 Range/Units 07:11 WBC (3.8-10.6) k/uL RBC (4.30-5.90) m/uL Hgb (13.0-17.5) gm/dL Hct (39.0-53.0) % Creatinine (0.66-1.25) mg/dL POC Glucose (mg/dL) 100 H (75-99) mg/dL Crossmatch Microbiology - Last 24 Hours (Table) 06/28/19 14:01 Blood Culture - Preliminary Blood No Growth after 48 hours Assessment and Plan Assessment: 1. Febrile illness, no clear source of infection, patient is neutropenic, computed tomography scan is showing some stranding over the recent bone marrow biopsy site, otherwise no clear clinical or laboratory data of any sign of infection, oncology consultation and infectious disease consultation requested, patient was given cefepime, ceftriaxone, and linezolid in the emergency room awaiting further recommendation from infectious disease. Patient has remained afebrile Patient is currently on oral Augmentin per infectious disease recommendation. Will continue with supportive care. 2. Acute erythroid leukemia. Patient recently completed inpatient chemotherapy and discharged on 06/09/2019. Interventional radiology has been consulted. That is post bone marrow biopsy on 06/25/2019 results pending. 3. Back pain. CT of lumbar spine completed and reviewed. Back pain has subsided 4. Diabetes mellitus type 2. Metformin on hold sliding scale insulin ordered 5. Essential hypertension. Home meds resumed 6. History of bipolar depression. Home meds resumed 7. History of seizures. 8. Pancytopenia secondary to chemotherapy. Hemoglobin 6.71 unit of PRBCs has been ordered per oncology DVT prophylaxis SCDs. GI prophylaxis Pepcid Oncology and infectious disease consulted I performed an examination of the patient and discussed their management with the Nurse Practitioner. I have reviewed the Nurse Practitioner's notes and agree with the documented findings and plan of care
[2019-07-01 11:49] LABS: Glucose,Whole Blood 102 mg/dL (75-99)
[2019-07-01 12:03] VITALS: BP 120/76; PULSE 76; RESP 16; TEMP 98
[2019-07-01] MEDS: VORICONAZOLE 200 MG TAB PO SCH (12:49)
--- NOTE | 2019-07-01 14:04 | PN ---
PROGRESS NOTE DATE OF SERVICE: 07/01/2019 REASON FOR FOLLOWUP VISIT: Febrile neutropenia. INTERVAL HISTORY: The patient is currently afebrile. Patient has been breathing comfortably. Denies having any chest pain. No shortness of breath, no cough. No nausea, no vomiting, no abdominal pain, no diarrhea. PHYSICAL EXAMINATION: His blood pressure is 128/76, pulse of 76, temperature 98, he is 97% on room air. General description is a middle-aged male, lying in bed in no distress. RESPIRATORY SYSTEM: Unlabored breathing, clear to auscultation anteriorly. HEART: S1, S2. Regular rate and rhythm. ABDOMEN: Soft, no tenderness. LABS: BUN 15, creatinine 0.61. Culture has been negative. DIAGNOSTIC IMPRESSION AND PLAN: Patient admitted to the hospital with a fever. This patient did have neutropenia. The patient main symptom was pain to his bone marrow biopsy site which did not have any evidence of cellulitis. CT was negative for any abscess. The patient's culture has been negative. Fevers resolved. Currently on oral Augmentin, continue for a short course and monitor clinical course closely. Continue supportive care. MMODL / IJN: [id number] /
--- NOTE | 2019-07-01 15:34 | P.DS ---
Providers Date of admission: 06/28/19 16:38 Expected date of discharge: 07/01/19 Attending physician: Veronika Dotson Consults: 06/28/19 16:45 Consult Physician Stat Consulting Provider: Guille Rojas Consult Reason/Comments: Neutropenic fever, back pain Do you want consulting provider notified?: Yes Consult Physician Stat Consulting Provider: Hubert De Anda Consult Reason/Comments: Neutropenic fever, back pain Do you want consulting provider notified?: Yes Primary care physician: Veronika Dotson [facility] Course: Discharge Diagnosis 1. Febrile illness, no clear source of infection, patient is neutropenic, computed tomography scan is showing some stranding over the recent bone marrow biopsy site, otherwise no clear clinical or laboratory data of any sign of infection, oncology consultation and infectious disease consultation requested, patient was given cefepime, ceftriaxone, and linezolid in the emergency room awaiting further recommendation from infectious disease. Patient has remained afebrile Patient is currently on oral Augmentin per infectious disease recommendation. Will continue with supportive care. ID and oncology has cleared patient for d/c. patient has been a febrile 2. Acute erythroid leukemia. Patient recently completed inpatient chemotherapy and discharged on 06/09/2019. Interventional radiology has been consulted. That is post bone marrow biopsy on 06/25/2019 results pending. 3. Back pain. CT of lumbar spine completed and reviewed. Back pain has subsided 4. Diabetes mellitus type 2. Metformin on hold sliding scale insulin ordered 5. Essential hypertension. Home meds resumed 6. History of bipolar depression. Home meds resumed 7. History of seizures. 8. Pancytopenia secondary to chemotherapy. Hemoglobin 6.71 unit of PRBCs has been ordered per oncology. Hospital Course Fransisco Burnham is a 48-year-old male patient who was recently discharged from [facility] after a prolonged admission for neutropenic fever, he was discharged home on oral antibiotic,patient was at home for 1 day when he started having pain in the right lower back and started having elevated temperature of 102.4 he presented to emergency room with complaints of fever. Patient has a known history of acute erythroid leukemia, he received chemotherapy via a PICC line in the left arm which was removed about 2 weeks ago. Patient was recently admitted for inpatient chemotherapy and discharged on 06/09/2019. Then readmitted on 06/19/2019 for neutropenic fever he was discharged on 06/27/2019 . Patient reports that the fever started last night he presented to the ER. Additional medical history includes diabetes mellitus type 2, hypertension, seizure anxiety depression and bipolar. EKG completed showing normal sinus rhythm. Normal EKG. Chest x-ray completed showing no acute process. Influenza negative. White blood cell is 0.8, computed tomography scan of the lumbar spine is showing some soft tissue stranding over the recent on marrow biopsy site which may be a sign of cellulitis causing the recent fever. Patient was given IV antibiotic in the emergency room and was admitted to medical floor infectious disease and oncology consultation were requested On 06/30/2019 patient is alert and oriented 3. Infectious disease and oncology services are following. Hemoglobin low the same 6.7 1 unit PRBCs have been ordered. Temp of 99.4 yesterday evening. Patient denies chest pain or shortness of breath. Patient denies nausea vomiting or diarrhea. Patient de nies urinary frequency. Patient denies any open sores or recent exposure to sick contacts. On 07/01/2019 patient is alert and oriented 3 resting comfortably in bed. Patient remains afebrile. Infectious disease and oncology service is following. Patient had received 1 unit of PRBCs yesterday for hemoglobin of 6.7. Hemoglobin today 8.3 WBC 0.7, patient on neutropenic precautions. Patient de nies any nausea vomiting or diarrhea. Patient denies any urinary burning or frequency. Patient denies any pain at site of bone marrow biopsy. Patient denies any concerns at this time. On 07/02/2019 patient alert and oriented 3. Patient has been cleared for discharge from infectious disease and oncology standpoint. Patient will resume Augmentin. Patient hemoglobin 8.3. Patient denies any chest pain or shortness of breath. Patient denies nausea vomiting or diarrhea. Patient denies any urinary burning or frequency. Patient has been afebrile. I performed an examination of the patient and discussed their management with the Nurse Practitioner. I have reviewed the Nurse Practitioner's notes and agree with the documented findings and plan of care Patient Condition at Discharge: Stable Plan - Discharge Summary Discharge Rx Participant: No New Discharge Prescriptions: Continue Montelukast Sodium [Singulair] 10 mg PO HS Albuterol Inhaler [Ventolin Hfa Inhaler] 2 puff INHALATION RT-Q6H PRN PRN Reason: Shortness Of Breath Venlafaxine HCl [Effexor XR] 150 mg PO HS Beclomethasone Dipropionate [Qvar 80 mcg] 2 puff INHALATION RT-BID Divalproex [Depakote] 500 mg PO BID tablet. metFORMIN HCL [Glucophage] 500 mg PO PC-SUPPER #0 Acyclovir [Zovirax] 400 mg PO BID Metoprolol Tartrate [Lopressor] 25 mg PO HS Zolpidem [Ambien] 5 mg PO HS PRN #30 tab PRN Reason: Insomnia Voriconazole 100 mg PO DAILY@1130 Amoxicillin/Potassium Clav [Augmentin 875-125 Tablet] 1 tab PO Q12HR #20 tab No Action Venetoclax [Venclexta] 400 mg PO DAILY@1630 Discharge Medication List Montelukast Sodium [Singulair] 10 mg PO HS 06/01/16 [History] Albuterol Inhaler [Ventolin Hfa Inhaler] 2 puff INHALATION RT-Q6H PRN 10/15/17 [History] Beclomethasone Dipropionate [Qvar 80 mcg] 2 puff INHALATION RT-BID 10/15/17 [History] Venlafaxine HCl [Effexor XR] 150 mg PO HS 10/15/17 [History] Divalproex [Depakote] 500 mg PO BID tablet. 01/27/19 [Rx] metFORMIN HCL [Glucophage] 500 mg PO PC-SUPPER #0 02/19/19 [Rx] Acyclovir [Zovirax] 400 mg PO BID 04/02/19 [History] Metoprolol Tartrate [Lopressor] 25 mg PO HS 06/03/19 [History] Zolpidem [Ambien] 5 mg PO HS PRN #30 tab 06/09/19 [Rx] Venetoclax [Venclexta] 400 mg PO DAILY@1630 06/19/19 [History] Voriconazole 100 mg PO DAILY@1130 06/19/19 [History] Amoxicillin/Potassium Clav [Augmentin 875-125 Tablet] 1 tab PO Q12HR #20 tab 06/27/19 [Rx] Follow up Appointment(s)/Referral(s): Guille Rojas MD [STAFF PHYSICIAN] - 07/03/19 9:45 am (this is for lab draw) Veronika Dotson MD [Primary Care Provider] - 1-2 days Patient Instructions/Handouts: Neutropenia (DC), Pancytopenia (DC) Discharge Disposition: HOME SELF-CARE
[2019-07-01] MEDS: SODIUM CHLORIDE 0.9% 1,000 ML IV SCH (16:26)
--- NOTE | 2019-07-01 16:55 | P.PN ---
Subjective Progress Note Date: 07/01/19 Principal diagnosis: intractable pain at BM site, febrile neutropenia In f/u pt has no physical c/o, he is anxious to go home. Pain is managed, no fevers. Objective - Vital Signs Vital signs: Vital Signs Temp 98 F 07/01/19 12:01 Pulse 76 07/01/19 12:01 Resp 16 07/01/19 12:01 BP 120/76 07/01/19 12:01 Pulse Ox 97 07/01/19 12:01 Intake & Output 06/30/19 07/01/19 07/01/19 18:59 06:59 18:59 Intake Total 1520 1920 1040 Balance 1520 1920 1040 Intake: Intake, IV Titration 900 1200 800 Amount Sodium Chloride 0.9% 1, 900 1200 800 000 ml @ 100 mls/hr IV . Q10H [facility] Rx#:[id number] Oral 720 240 Blood Product 620 Rc Irr As1 Unit 310 [id number] Other: Voiding Method Toilet Toilet # Voids 5 1 4 - Constitutional General appearance: Present: average body habitus, cooperative, no acute distress - EENT Eyes: Present: anicteric sclerae, edentulous, EOMI ENT: Present: hearing grossly normal - Respiratory Details: respirations even and unlabored - Cardiovascular Details: skin warm and dry - Integumentary Integumentary: Present: normal turgor, pale - Neurologic Neurologic: Present: CNII-XII intact - Musculoskeletal Musculoskeletal: Present: strength equal bilaterally - Psychiatric Psychiatric: Present: A&O x's 3, appropriate affect, intact judgment & insight - Labs CBC & Chem 7: 07/01/19 07:01 07/01/19 07:01 Labs: Abnormal Lab Results - Last 24 Hours (Table) 06/30/19 06/30/19 07/01/19 Range/Units 17:11 20:34 07:01 WBC 0.7 L* (3.8-10.6) k/uL RBC 2.88 L (4.30-5.90) m/uL Hgb 8.3 L D (13.0-17.5) gm/dL Hct 23.6 L (39.0-53.0) % Plt Count 14 L* (150-450) k/uL Creatinine (0.66-1.25) mg/dL POC Glucose (mg/dL) 138 H 125 H (75-99) mg/dL 07/01/19 07/01/19 07/01/19 Range/Units 07:01 07:11 11:48 WBC (3.8-10.6) k/uL RBC (4.30-5.90) m/uL Hgb (13.0-17.5) gm/dL Hct (39.0-53.0) % Plt Count (150-450) k/uL Creatinine 0.61 L (0.66-1.25) mg/dL POC Glucose (mg/dL) 100 H 102 H (75-99) mg/dL Microbiology - Last 24 Hours (Table) 06/28/19 14:01 Blood Culture - Preliminary Blood No Growth after 72 hours Assessment and Plan (1) Pain Narrative/Plan: Patient's presenting symptom, pain controlled. Status: Acute Priority: High Code(s): R52 - PAIN, UNSPECIFIED SNOMED Code(s): 48607631 (2) Febrile neutropenia Narrative/Plan: No fevers ID consulted. No GCSF, pending BM results to confirm remission Status: Acute Priority: High Code(s): D70.9 - NEUTROPENIA, UNSPECIFIED; R50.81 - FEVER PRESENTING WITH CONDITIONS CLASSIFIED ELSEWHERE SNOMED Code(s): 454955798 (3) Acute erythroid leukemia Narrative/Plan: Pending BM results to confirm some type of remission. Allo BMT in future Status: Acute Priority: High Code(s): C94.00 - ACUTE ERYTHROID LEUKEMIA, NOT HAVING ACHIEVED REMISSION SNOMED Code(s): 50302505 (4) Pancytopenia Narrative/Plan: Transfuse irradiated blood products only Transfuse to keep hemoglobin 7 or higher. Hemoglobin 8.3 today. Transfuse to keep platelets greater than 10,000. Platelets 14,000 today, no acute intervention No intervention for extremely low white count, secondary to disease as well as treatment of disease. Status: Chronic Priority: High Code(s): D61.818 - OTHER PANCYTOPENIA SNOMED Code(s): 148718627
== END 2019-07-01 16:26 | disposition home or self-care (01) | DRG 809 ==
LOC: EC 13:39 → 5NMEDONC 16:38
PROVIDERS: ADMIT Internal Medicine; ATTEND Internal Medicine
PROC: 5A09457 Assistance with Respiratory Ventilation, 24-96 Consecutive Hours, Continuous Positive Airway Pressure (ICD-10-PCS; 2019-06-29)
PROC: 30233N1 Transfusion of Nonautologous Red Blood Cells into Peripheral Vein, Percutaneous Approach (ICD-10-PCS; principal; 2019-06-30)
DX: D70.9 Neutropenia, unspecified (principal); C94.00 Acute erythroid leukemia, not having achieved remission; D61.810 Antineoplastic chemotherapy induced pancytopenia; E11.40 Type 2 diabetes mellitus with diabetic neuropathy, unspecified; R50.81 Fever presenting with conditions classified elsewhere; J45.909 Unspecified asthma, uncomplicated; I10 Essential (primary) hypertension; E78.5 Hyperlipidemia, unspecified; M19.90 Unspecified osteoarthritis, unspecified site; K21.9 Gastro-esophageal reflux disease without esophagitis; G47.30 Sleep apnea, unspecified; F41.9 Anxiety disorder, unspecified; F17.200 Nicotine dependence, unspecified, uncomplicated; M51.37 Other intervertebral disc degeneration, lumbosacral region; F31.9 Bipolar disorder, unspecified; G40.909 Epilepsy, unspecified, not intractable, without status epilepticus; T45.1X5A Adverse effect of antineoplastic and immunosuppressive drugs, initial encounter; M54.5 Low back pain; G47.00 Insomnia, unspecified; G56.03 Carpal tunnel syndrome, bilateral upper limbs; R01.1 Cardiac murmur, unspecified; I25.2 Old myocardial infarction; Z79.899 Other long term (current) drug therapy; Z79.84 Long term (current) use of oral hypoglycemic drugs; Z92.21 Personal history of antineoplastic chemotherapy; Z91.02 Food additives allergy status; Z91.018 Allergy to other foods; Z91.048 Other nonmedicinal substance allergy status; Z87.19 Personal history of other diseases of the digestive system; Z87.442 Personal history of urinary calculi; Z96.82 Presence of neurostimulator; Z95.5 Presence of coronary angioplasty implant and graft; Z96.651 Presence of right artificial knee joint; Z98.890 Other specified postprocedural states; Z88.6 Allergy status to analgesic agent; Z88.1 Allergy status to other antibiotic agents; Z82.49 Family history of ischemic heart disease and other diseases of the circulatory system; Z83.3 Family history of diabetes mellitus; Z82.5 Family history of asthma and other chronic lower respiratory diseases; Z80.1 Family history of malignant neoplasm of trachea, bronchus and lung; Z80.3 Family history of malignant neoplasm of breast; Z83.2 Family history of diseases of the blood and blood-forming organs and certain disorders involving the immune mechanism; Z81.8 Family history of other mental and behavioral disorders
CPT/HCPCS: 36415; 71046; 72132; 80053; 81001; 83605; 84484; 85025; 85610; 85730; 86850; 86900; 86901; 86920; 87040; 87502; 93005; 94640; 96361; 96365; 96375; 99285

== ENCOUNTER 2019-07-07 16:53 | Inpatient (IN) | payer MEDICARE, OTHER ==
[2019-07-07] MEDS ORDERED: SODIUM CHLORIDE 0.9% 1,000 ML IV STA (18:48)
--- NOTE | 2019-07-07 19:08 | ED ---
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 Patient states that he was down at [facility] today to get his teeth pulled. States that prior to this he was to receive a unit of packed red blood cells and 10 units of platelets. Patient states he started to develop a fever after this. States his fever was 102. States his oncologist recommended admission and gave him the option of either here or [place]. Patient opted to be admitted here as he is closer to family. Patient states he was given Tylenol the fever has since resolved. He is denying any specific complaints at this time. He was recently released from this hospital for neutropenic fever without source localized. Blood cultures were negative Patient has no other complaints at this time including shortness of breath, chest pain, abdominal pain, nausea or vomiting, headache, or visual changes. (Sebas Pryor) - Related Data Home Medications Medication Instructions Recorded Confirmed Montelukast Sodium [Singulair] 10 mg PO HS 06/01/16 07/07/19 Albuterol Inhaler [Ventolin Hfa 2 puff INHALATION RT-Q6H PRN 10/15/17 07/07/19 Inhaler] Beclomethasone Dipropionate [Qvar 2 puff INHALATION RT-BID 10/15/17 07/07/19 80 mcg] Venlafaxine HCl [Effexor XR] 150 mg PO HS 10/15/17 07/07/19 Acyclovir [Zovirax] 400 mg PO BID 04/02/19 07/07/19 Metoprolol Tartrate [Lopressor] 25 mg PO HS 06/03/19 07/07/19 Voriconazole 100 mg PO DAILY@1130 06/19/19 07/07/19 Venetoclax [Venclexta] 50 mg PO DAILY 07/07/19 07/07/19 Previous Rx's Medication Instructions Recorded Divalproex [Depakote] 500 mg PO BID tablet. 01/27/19 metFORMIN HCL [Glucophage] 500 mg PO PC-SUPPER #0 02/19/19 Zolpidem [Ambien] 5 mg PO HS PRN #30 tab 06/09/19 Amoxicillin/Potassium Clav 1 tab PO Q12HR #20 tab 06/27/19 [Augmentin 875-125 Tablet] Allergies Allergy/AdvReac Type Severity Reaction Status Date / Time naproxen [From Naprosyn] Allergy Unknown Rash/Hives Verified 07/07/19 19:42 adhesive tape Allergy Rash/Hives Verified 07/07/19 19:42 ibuprofen Allergy Itching Verified 07/07/19 19:42 mold Allergy Unknown Verified 07/07/19 19:42 vancomycin Allergy Rash/Hives Verified 07/07/19 19:42 carrot AdvReac Dyspnea Verified 07/07/19 19:42 chocolate flavor AdvReac Dyspnea Verified 07/07/19 19:42 grass pollen-perennial rye, AdvReac Dyspnea Verified 07/07/19 19:42 standar Review of Systems ROS Other: All systems not noted in ROS Statement are negative. <Sebas Pryor - Last Filed: 07/07/19 20:13> ROS Other: All systems not noted in ROS Statement are negative. <Sami Lucio - Last Filed: 07/07/19 22:00> ROS Statement: Those systems with pertinent positive or pertinent negative responses have been documented in the HPI. Past Medical History Past Medical History: Asthma, Cancer, Chest Pain / Angina, Diabetes Mellitus, GERD/Reflux, GI Bleed, Hyperlipidemia, Hypertension, Myocardial Infarction (RI), Musculoskeletal Disorder, Osteoarthritis (OA), Sleep Apnea/CPAP/BIPAP Additional Past Medical History / Comment(s): Recent left lower abdominal pain/left urethral stone/pancytopenia (February). NIDDM type II, neuropathy bilateral hands/feet, colitis, hx lower GI bleed, CPAP use, chronic cervical/lumbar pain-has neurostimulator to both sites, bilateral carpal tunnel syndrome, occasional tinnitis, "soft" cardiac murmur. Last Myocardial Infarction Date:: 2004 History of Any Multi-Drug Resistant Organisms: None Reported Past Surgical History: Heart Catheterization With Stent, Hernia Repair, Joint Replacement Additional Past Surgical History / Comment(s): Bone marrow aspiration/biopsy, right knee arthroscopy X3, right total knee replacement with revision, left knee arthroscopy, cardiac stent X1, stent placed for kidney stone and then removed, COLONOSCOPY, cervical and lumbar neurostimulator implants, left inguinal hernia repair. Past Anesthesia/Blood Transfusion Reactions: No Reported Reaction Date of Last Stent Placement:: 2004 Past Psychological History: Anxiety, Bipolar, Depression Smoking Status: Current some day smoker Past Alcohol Use History: None Reported Past Drug Use History: None Reported - Past Family History Father Family Medical History: Congestive Heart Failure (CHF), Deep Vein Thrombosis (DVT), Myocardial Infarction (RI), Pulmonary Embolus Additional Family Medical History / Comment(s): RI at age 38. "hole in colon". Mother Family Medical History: Cancer, COPD, Diabetes Mellitus, Hyperlipidemia Additional Family Medical History / Comment(s): Mother had breast and lung cancer. She of lung cancer in her 60s. Sister(s) Family Medical History: Diabetes Mellitus, Liver Disease Additional Family Medical History / Comment(s): Bi-polar, anxiety, hysterectomy, fatty liver. Brother(s) History Unknown: Yes <Sebas Pryor P - Last Filed: 07/07/19 20:13> General Exam Limitations: no limitations General appearance: alert, in no apparent distress Head exam: Present: atraumatic, normocephalic, normal inspection Eye exam: Present: normal appearance, PERRL, EOMI. Absent: scleral icterus, conjunctival injection, periorbital swelling ENT exam: Present: normal exam, normal oropharynx, mucous membranes moist, TM's normal bilaterally, normal external ear exam Neck exam: Present: normal inspection, full ROM. Absent: tenderness, meningismus, lymphadenopathy Respiratory exam: Present: normal lung sounds bilaterally. Absent: respiratory distress, wheezes, rales, rhonchi, stridor Cardiovascular Exam: Present: regular rate, normal rhythm, normal heart sounds. Absent: systolic murmur, diastolic murmur, rubs, gallop, clicks GI/Abdominal exam: Present: soft, normal bowel sounds. Absent: distended, tenderness, guarding, rebound, rigid Neurological exam: Present: alert, oriented X3 Skin exam: Present: warm, dry, intact, normal color. Absent: rash <Sebas Pryor - Last Filed: 07/07/19 20:13> General appearance: alert, in no apparent distress Head exam: Present: atraumatic, normocephalic, normal inspection Eye exam: Present: normal appearance, PERRL, EOMI. Absent: scleral icterus, conjunctival injection, periorbital swelling ENT exam: Present: normal exam, mucous membranes moist Neck exam: Present: normal inspection. Absent: tenderness, meningismus, lymphadenopathy Respiratory exam: Present: normal lung sounds bilaterally. Absent: respiratory distress, wheezes, rales, rhonchi, stridor Cardiovascular Exam: Present: regular rate, normal rhythm, normal heart sounds. Absent: systolic murmur, diastolic murmur, rubs, gallop, clicks GI/Abdominal exam: Present: soft, normal bowel sounds. Absent: distended, tenderness, guarding, rebound, rigid Extremities exam: Present: normal inspection, full ROM, normal capillary refill. Absent: tenderness, pedal edema, joint swelling, calf tenderness Back exam: Present: normal inspection Neurological exam: Present: alert, oriented X3, CN II-XII intact Psychiatric exam: Present: normal affect, normal mood Skin exam: Present: warm, dry, intact, normal color. Absent: rash <Sami Lucio - Last Filed: 07/07/19 22:00> Course <Sami Lucio - Last Filed: 07/07/19 22:00> Vital Signs 07/07/19 07/07/19 17:01 20:14 Temperature 98.3 F 99.4 F Pulse Rate 97 Respiratory 18 Rate Blood Pressure 128/71 O2 Sat by Pulse 100 Oximetry - Reevaluation(s) Reevaluation #1: 07/07/19 21:59 Medical records reviewed (Sami Lucio) Reevaluation #2: 07/07/19 21:59 Patient asymptomatic without fever but informed of neutropenic fever and need for IV antibiotics (Sami Lucio) Medical Decision Making <Sebas Pryor - Last Filed: 07/07/19 20:13> - Lab Data Result diagrams: 07/07/19 19:26 07/07/19 19:26 - Radiology Data Radiology results: report reviewed (Chest x-ray is negative for acute disease), image reviewed <Sami Lucio - Last Filed: 07/07/19 22:00> - Medical Decision Making HPI physical exam is documented. Chest x-ray negative. Care was signed out to Dr. Lucio at 2013 pending further management and results. (Sebas Pryor) 48 male patient has fever will admit for IV antibiotics secondary severe neutropenia (Sami Lucio) - Lab Data Lab Results 07/07/19 07/07/19 07/07/19 Range/Units 19:26 19:26 19:26 WBC 0.9 L* (3.8-10.6) k/uL RBC 2.49 L (4.30-5.90) m/uL Hgb 7.2 L (13.0-17.5) gm/dL Hct 20.0 L (39.0-53.0) % MCV 80.4 (80.0-100.0) fL MCH 28.9 (25.0-35.0) pg MCHC 36.0 (31.0-37.0) g/dL RDW 16.3 H (11.5-15.5) % Plt Count 20 L (150-450) k/uL Differential Comment Manual Slide Review Performed Poikilocytosis Moderate Anisocytosis Slight Microcytosis Slight Sodium 137 (137-145) mmol/L Potassium 3.7 (3.5-5.1) mmol/L Chloride 102 (98-107) mmol/L Carbon Dioxide 28 (22-30) mmol/L Anion Gap 7 mmol/L BUN 15 (9-20) mg/dL Creatinine 0.64 L (0.66-1.25) mg/dL Est GFR (CKD-EPI)AfAm >90 (>60 ml/min/1.73 sqM) Est GFR (CKD-EPI)NonAf >90 (>60 ml/min/1.73 sqM) Glucose 130 H (74-99) mg/dL Plasma Lactic Acid Cory 2.5 H* (0.7-2.0) mmol/L Calcium 8.7 (8.4-10.2) mg/dL Total Bilirubin 0.7 (0.2-1.3) mg/dL AST 18 (17-59) U/L ALT 15 (4-49) U/L Alkaline Phosphatase 62 (38-126) U/L Total Protein 6.3 (6.3-8.2) g/dL Albumin 3.8 (3.5-5.0) g/dL Urine Color Urine Appearance (Clear) Urine pH (5.0-8.0) Ur Specific [place] (1.001-1.035) Urine Protein (Negative) Urine Glucose (UA) (Negative) Urine Ketones (Negative) Urine Blood (Negative) Urine Nitrite (Negative) Urine Bilirubin (Negative) Urine Urobilinogen (<2.0) mg/dL Ur Leukocyte Esterase (Negative) Influenza Type A RNA (Not Detectd) Influenza Type B (PCR) (Not Detectd) 07/07/19 07/07/19 Range/Units 20:05 20:10 WBC (3.8-10.6) k/uL RBC (4.30-5.90) m/uL Hgb (13.0-17.5) gm/dL Hct (39.0-53.0) % MCV (80.0-100.0) fL MCH (25.0-35.0) pg MCHC (31.0-37.0) g/dL RDW (11.5-15.5) % Plt Count (150-450) k/uL Differential Comment Manual Slide Review Poikilocytosis Anisocytosis Microcytosis Sodium (137-145) mmol/L Potassium (3.5-5.1) mmol/L Chloride (98-107) mmol/L Carbon Dioxide (22-30) mmol/L Anion Gap mmol/L BUN (9-20) mg/dL Creatinine (0.66-1.25) mg/dL Est GFR (CKD-EPI)AfAm (>60 ml/min/1.73 sqM) Est GFR (CKD-EPI)NonAf (>60 ml/min/1.73 sqM) Glucose (74-99) mg/dL Plasma Lactic Acid Cory (0.7-2.0) mmol/L Calcium (8.4-10.2) mg/dL Total Bilirubin (0.2-1.3) mg/dL AST (17-59) U/L ALT (4-49) U/L Alkaline Phosphatase (38-126) U/L Total Protein (6.3-8.2) g/dL Albumin (3.5-5.0) g/dL Urine Color Yellow Urine Appearance Clear (Clear) Urine pH 6.0 (5.0-8.0) Ur Specific [place] 1.018 (1.001-1.035) Urine Protein Negative (Negative) Urine Glucose (UA) Negative (Negative) Urine Ketones Negative (Negative) Urine Blood Negative (Negative) Urine Nitrite Negative (Negative) Urine Bilirubin Negative (Negative) Urine Urobilinogen <2.0 (<2.0) mg/dL Ur Leukocyte Esterase Negative (Negative) Influenza Type A RNA Not Detected (Not Detectd) Influenza Type B (PCR) Not Detected (Not Detectd) Disposition <Sebas Pryor P - Last Filed: 07/07/19 20:13> Is patient prescribed a controlled substance at d/c from ED?: No <Sami Lucio - Last Filed: 07/07/19 22:00> Clinical Impression: Fever, Neutropenia Disposition: ADMITTED IP TO THIS HOSP Condition: Fair Referrals: Veronika Dotson MD [Primary Care Provider] - 1-2 days
--- NOTE | 2019-07-07 19:53 | XR ---
EXAMINATION TYPE: XR chest 2V DATE OF EXAM: 07/07/2019 COMPARISON: June 28, 2019 HISTORY: Chest pain TECHNIQUE: Frontal and lateral views of the chest are obtained. FINDINGS: There is no focal air space opacity. No evidence for pneumothorax. No pleural effusion. The cardiac silhouette size is within normal limits. The osseous structures are grossly intact. IMPRESSION: 1. No acute cardiopulmonary process.
[2019-07-07 20:19] LABS: Appearance,Urine Clear (Clear); Bilirubin,Urine Negative (Negative); Blood,Urine Negative (Negative); Color,Urine Yellow; Glucose,Urine (UA) Negative (Negative); Ketones,Urine Negative (Negative); Leukocyte Esterase,Urine Negative (Negative); Nitrite,Urine Negative (Negative); Protein,Urine Negative (Negative); Specific Gravity,Urine 1.018 (1.001-1.035); Urobilinogen,Urine <2.0 mg/dL (<2.0)
[2019-07-07 20:28] LABS: HGB 7.2 gm/dL (13.0-17.5); MCH 28.9 pg (25.0-35.0); MCV 80.4 fL (80.0-100.0); Mean Platelet Volume 7.9; RBC 2.49 m/uL (4.30-5.90); RDW 16.3 % (11.5-15.5)
[2019-07-07 20:29] LABS: Anisocytosis Slight; Microcytosis Slight; Poikilocytosis Moderate
[2019-07-07 20:32] LABS: WBC 0.9 k/uL (3.8-10.6)
[2019-07-07 20:33] LABS: ALT 15 U/L (4-49); AST 18 U/L (17-59); African American GFR (CKD) >90 (>60 ml/min/1.73 sqM); Albumin 3.8 g/dL (3.5-5.0); Alkaline Phosphatase 62 U/L (38-126); Anion Gap 7 mmol/L; Blood Urea Nitrogen 15 mg/dL (9-20); Calcium 8.7 mg/dL (8.4-10.2); Carbon Dioxide 28 mmol/L (22-30); Chloride 102 mmol/L (98-107); Glucose 130 mg/dL (74-99); Non-African American GFR(CKD) >90 (>60 ml/min/1.73 sqM); Platelet Count 20 k/uL (150-450); Potassium 3.7 mmol/L (3.5-5.1); Sodium 137 mmol/L (137-145); Total Bilirubin 0.7 mg/dL (0.2-1.3); Total Protein 6.3 g/dL (6.3-8.2)
[2019-07-07] MEDS ORDERED: PIPERACILLIN-TAZOBACTAM 3.375 GM in SODIUM CHLORIDE 0.9% 100 ML IVPB STA (21:57)
[2019-07-07] MEDS ORDERED: CLINDAMYCIN 900 MG in DEXTROSE 5% IN WATER 50 ML IVPB STA ×2 (21:58)
[2019-07-07] MEDS: SODIUM CHLORIDE 0.9% 1,000 ML IV SCH (22:42)
[2019-07-07] MEDS: SODIUM CHLORIDE 0.9% 500 ML 500 ML IV SCH (23:30)
[2019-07-08] MEDS ORDERED: ACETAMINOPHEN TAB 325 MG TAB PO PRN (00:32)
[2019-07-08] MEDS: SODIUM CHLORIDE 0.9% 1,000 ML IV SCH ×2 (08:02→17:20)
[2019-07-08] MEDS: PANTOPRAZOLE 40 MG/10 ML VIAL IV SCH (08:03)
[2019-07-08] MEDS: CLINDAMYCIN 300 MG in DEXTROSE 5% IN WATER 50 ML IVPB SCH ×4 (08:03→17:39)
[2019-07-08] MEDS ORDERED: ALBUTEROL NEBULIZED 2.5 MG/3 ML INHALATION PRN (08:37)
[2019-07-08] MEDS ORDERED: ZOLPIDEM 5 MG TAB PO PRN (08:37)
[2019-07-08] MEDS: ACYCLOVIR 200 MG CAP PO SCH ×2 (10:01→20:17)
[2019-07-08] MEDS: DIVALPROEX 500 MG TABLET.DR PO SCH ×2 (10:01→20:16)
[2019-07-08] MEDS: PIPERACILLIN-TAZOBACTAM 3.375 GM in SODIUM CHLORIDE 0.9% 100 ML IVPB SCH ×2 (10:01→17:39)
--- NOTE | 2019-07-08 10:10 | P.HPIM ---
History of Present Illness H&P Date: 07/08/19 Chief Complaint: Neutropenic fever This is a 48-year-old male patient well known to my services. Patient presented to the ER after he was receiving platelet stomach monos and was noted to have fever. Patient was instructed by his cancer doctor to proceed to ER for further evaluation. patient denies any recent sick contacts. patient recently underwent a second round of chemotherapy approximately 3 weeks ago and has had 2 previous admissions due to neutropenic fever. Lactic acid also elevated on admit 2.5. Elevated temperature 100. UA negative. Influenza negative. Chest x-ray showing no signs of infection. Patient has a past medical history of acute erythroid leukemia. Patient was recently discharged after hospital cessation for fever on Augmentin. Patient reports he has been taking. Additional medical history includes diabetes mellitus type 2, hypertension, seizures, anxiety, depression and bipolar. White blood cell low at 0.9, platelets 20. At this time will consult sections disease and oncology services. Patient started on clindamycin and Zosyn. Patient denies any chest pain or shortness breath. Patient denies vomiting or diarrhea. Patient denies any recent rashes or open wounds Review of Systems Please refer to HPI otherwise unremarkable Past Medical History Past Medical History: Asthma, Cancer, Chest Pain / Angina, Diabetes Mellitus, GERD/Reflux, GI Bleed, Hyperlipidemia, Hypertension, Myocardial Infarction ([place]), Musculoskeletal Disorder, Osteoarthritis (OA), Sleep Apnea/CPAP/BIPAP Additional Past Medical History / Comment(s): Recent left lower abdominal pain/left urethral stone/pancytopenia (February). NIDDM type II, neuropathy bila teral hands/feet, colitis, hx lower GI bleed, CPAP use, chronic cervical/lumbar pain-has neurostimulator to both sites, bilateral carpal tunnel syndrome, occasional tinnitis, "soft" cardiac murmur. Last Myocardial Infarction Date:: 2004 History of Any Multi-Drug Resistant Organisms: None Reported Past Surgical History: Heart Catheterization With Stent, Hernia Repair, Joint Replacement Additional Past Surgical History / Comment(s): Bone marrow aspiration/biopsy, right knee arthroscopy X3, right total knee replacement with revision, left knee arthroscopy, cardiac stent X1, stent placed for kidney stone and then removed, COLONOSCOPY, cervical and lumbar neurostimulator implants, left inguinal hernia repair. Past Anesthesia/Blood Transfusion Reactions: No Reported Reaction Date of Last Stent Placement:: 2004 Past Psychological History: Anxiety, Bipolar, Depression Smoking Status: Current some day smoker Past Alcohol Use History: None Reported Past Drug Use History: None Reported - Past Family History Father Family Medical History: Congestive Heart Failure (CHF), Deep Vein Thrombosis (DVT), Myocardial Infarction (MT), Pulmonary Embolus Additional Family Medical History / Comment(s): MT at age 38. "hole in colon". Mother Family Medical History: Cancer, COPD, Diabetes Mellitus, Hyperlipidemia Additional Family Medical History / Comment(s): Mother had breast and lung cancer. She of lung cancer in her 60s. Sister(s) Family Medical History: Diabetes Mellitus, Liver Disease Additional Family Medical History / Comment(s): Bi-polar, anxiety, hysterectomy, fatty liver. Brother(s) History Unknown: Yes Medications and Allergies Home Medications Medication Instructions Recorded Confirmed Type Montelukast Sodium [Singulair] 10 mg PO HS 06/01/16 07/07/19 History Albuterol Inhaler [Ventolin Hfa 2 puff INHALATION RT-Q6H PRN 10/15/17 07/07/19 History Inhaler] Beclomethasone Dipropionate [Qvar 2 puff INHALATION RT-BID 10/15/17 07/07/19 History 80 mcg] Venlafaxine HCl [Effexor XR] 150 mg PO HS 10/15/17 07/07/19 History Divalproex [Depakote] 500 mg PO BID tablet. 01/27/19 07/07/19 Rx metFORMIN HCL [Glucophage] 500 mg PO PC-SUPPER #0 02/19/19 07/07/19 Rx Acyclovir [Zovirax] 400 mg PO BID 04/02/19 07/07/19 History Metoprolol Tartrate [Lopressor] 25 mg PO HS 06/03/19 07/07/19 History Zolpidem [Ambien] 5 mg PO HS PRN #30 tab 06/09/19 07/07/19 Rx Voriconazole 100 mg PO DAILY@1130 06/19/19 07/07/19 History Amoxicillin/Potassium Clav 1 tab PO Q12HR #20 tab 06/27/19 07/07/19 Rx [Augmentin 875-125 Tablet] Venetoclax [Venclexta] 50 mg PO DAILY 07/07/19 07/07/19 History Allergies Allergy/AdvReac Type Severity Reaction Status Date / Time naproxen [From Naprosyn] Allergy Unknown Rash/Hives Verified 07/07/19 19:42 adhesive tape Allergy Rash/Hives Verified 07/07/19 19:42 ibuprofen Allergy Itching Verified 07/07/19 19:42 mold Allergy Unknown Verified 07/07/19 19:42 vancomycin Allergy Rash/Hives Verified 07/07/19 19:42 carrot AdvReac Dyspnea Verified 07/07/19 19:42 chocolate flavor AdvReac Dyspnea Verified 07/07/19 19:42 grass pollen-perennial rye, AdvReac Dyspnea Verified 07/07/19 19:42 standar Physical Exam Vitals: Vital Signs Temp Pulse Pulse Resp BP BP Pulse Ox 07/08/19 08:16 98.0 F 87 18 98/56 99 07/08/19 01:25 99.2 F 84 20 118/80 98 07/07/19 22:00 100 F H 94 16 117/56 98 07/07/19 20:14 99.4 F 07/07/19 17:01 98.3 F 97 18 128/71 100 Intake and Output 07/07/19 07/08/19 07/08/19 22:59 06:59 14:59 Output Total 200 Balance -200 Output: Urine 200 Other: Voiding Method Toilet Weight 88.904 kg Head normocephalic Neck supple Lungs clear to auscultation bilaterally no wheezing or crackles Heart regular rate and rhythm S1-S2, no rub or gallop Abdomen is soft nontender nondistended positive bowel sounds no hepatosplenomegaly Extremities no edema Neuro alert and orientated to 3 Results CBC & Chem 7: 07/07/19 19:26 07/07/19 19:26 Labs: Abnormal Lab Results - Last 24 Hours (Table) 07/07/19 07/07/19 07/07/19 Range/Units 19:26 19:26 19:26 WBC 0.9 L* (3.8-10.6) k/uL RBC 2.49 L (4.30-5.90) m/uL Hgb 7.2 L (13.0-17.5) gm/dL Hct 20.0 L (39.0-53.0) % RDW 16.3 H (11.5-15.5) % Plt Count 20 L (150-450) k/uL Creatinine 0.64 L (0.66-1.25) mg/dL Glucose 130 H (74-99) mg/dL Plasma Lactic Acid Cory 2.5 H* (0.7-2.0) mmol/L Assessment and Plan Assessment: 1. Febrile illness signs of infection. Patient is neutropenic. WBC 0.9. UA negative. Chest x-ray negative. Influenza negative. Infectious disease consulted. Patient started on vancomycin and clindamycin. Cultures ordered. Infectious disease consulted 2. Acute erythroid leukemia. Patient completed the chronic inpatient chemotherapy on 06/09/2019. Patient has followed with [facility]. Last bone marrow biopsy on 06/25/2019 patient results still pending 3. Diabetes mellitus type 2. Metformin resumed 4. History of essential hypertension 5. History of bipolar depression. Home meds resumed 6. History of seizures 7. 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 Oncology services have been consulted DVT prophylaxis SCDs due to pancytopenia. GI prophylaxis Protonix Oncology and infectious disease consulted Time with Patient: Greater than 30 (Greater than 60% of the total time spent in counseling and coordination of care. I performed an examination of the patient and discussed their management with the Nurse Practitioner. I have reviewed the Nurse Practitioner's notes and agree with the documented findings and plan of care)
[2019-07-08 10:42] LABS: ALT 15 U/L (4-49); AST 17 U/L (17-59); African American GFR (CKD) >90 (>60 ml/min/1.73 sqM); Albumin 3.2 g/dL (3.5-5.0); Alkaline Phosphatase 52 U/L (38-126); Anion Gap 6 mmol/L; Blood Urea Nitrogen 8 mg/dL (9-20); Calcium 8.3 mg/dL (8.4-10.2); Carbon Dioxide 25 mmol/L (22-30); Chloride 106 mmol/L (98-107); Glucose 114 mg/dL (74-99); Non-African American GFR(CKD) >90 (>60 ml/min/1.73 sqM); Potassium 3.9 mmol/L (3.5-5.1); Sodium 137 mmol/L (137-145); Total Bilirubin 0.7 mg/dL (0.2-1.3); Total Protein 5.7 g/dL (6.3-8.2)
[2019-07-08 11:01] LABS: Anisocytosis Slight; Hypochromasia Slight; MCH 27.4 pg (25.0-35.0); MCHC 33.6 g/dL (31.0-37.0); MCV 81.7 fL (80.0-100.0); Mean Platelet Volume 7.3; Poikilocytosis Moderate; RBC 2.42 m/uL (4.30-5.90); RDW 16.1 % (11.5-15.5)
[2019-07-08 11:04] LABS: WBC 0.7 k/uL (3.8-10.6)
[2019-07-08 11:07] LABS: HGB 6.6 gm/dL (13.0-17.5)
[2019-07-08 11:08] LABS: HCT 19.8 % (39.0-53.0)
[2019-07-08 11:09] LABS: Platelet Count 11 k/uL (150-450)
[2019-07-08] MEDS: VORICONAZOLE 200 MG TAB PO SCH (12:33)
--- NOTE | 2019-07-08 16:58 | P.CONS ---
History of Present Illness - Reason for Consult Consult date: 07/08/19 AEL, febrile neutropenia, anemia, thrombocytopenia Requesting physician: Alondra Becker - Chief Complaint fever, post transfusion - History of Present Illness Please refer to medical consult dictated 06/20/19 for full malignancy Hx. Patient was most recently treated with venetoclax and Vidaza as he did not have an adequate response to induction chemotherapy. He had a bone marrow biopsy and aspirate on June 24, 21 days after initiating venetoclax and Vidaza. Bone marrow biopsy and aspirate resulted a hypercellular marrow for age, markedly increased erythroid elements involving about 90% of the marrow. Pt was at [facility] in [place] being evaluated by bone marrow transplant team for allogenic stem cell transplant. They were trying to get patient's teeth pulled prior to beginning. Patient was going to be transfused with 2 unit single donor platelets as well as 1 unit PRBCs. Post 2nd platelet transfusion patient states he got a fever. He states that he continued to receive the rest of his blood products and then was asked if he wanted to be admitted there or come back to [place], patient opted to be admitted here. Patient states he does not feel terrible, no recent fevers, chills, oral irritation, bleeding, cough, abdominal pain or cramping, dysuria, hematuria, hematochezia, melena, diarrhea or constipation. He is fully ambulatory. Review of Systems 14 point review of systems is negative except as stated in HPI Past Medical History Past Medical History: Asthma, Cancer, Chest Pain / Angina, Diabetes Mellitus, GERD/Reflux, GI Bleed, Hyperlipidemia, Hypertension, Myocardial Infarction ([place]), Musculoskeletal Disorder, Osteoarthritis (OA), Sleep Apnea/CPAP/BIPAP Additional Past Medical History / Comment(s): Recent left lower abdominal pain/left urethral stone/pancytopenia (February). NIDDM type II, neuropathy bilateral hands/feet, colitis, hx lower GI bleed, CPAP use, chronic cervical/lumbar pain-has neurostimulator to both sites, bilateral carpal tunnel syndrome, occasional tinnitis, "soft" cardiac murmur. Last Myocardial Infarction Date:: 2004 History of Any Multi-Drug Resistant Organisms: None Reported Past Surgical History: Heart Catheterization With Stent, Hernia Repair, Joint Replacement Additional Past Surgical History / Comment(s): Bone marrow aspiration/biopsy, right knee arthroscopy X3, right total knee replacement with revision, left knee arthroscopy, cardiac stent X1, stent placed for kidney stone and then removed, COLONOSCOPY, cervical and lumbar neurostimulator implants, left inguinal hernia repair. Past Anesthesia/Blood Transfusion Reactions: No Reported Reaction Additional Past Anesthesia/Blood Transfusion Reaction / Comm: Pt has received blood/platelets before with no reaction. Date of Last Stent Placement:: 2004 Smoking Status: Current some day smoker - Past Family History Father Family Medical History: Congestive Heart Failure (CHF), Deep Vein Thrombosis (DVT), Myocardial Infarction ([place]), Pulmonary Embolus Additional Family Medical History / Comment(s): [place] at age 38. "hole in colon". Mother Family Medical History: Cancer, COPD, Diabetes Mellitus, Hyperlipidemia Additional Family Medical History / Comment(s): Mother had breast and lung cancer. She of lung cancer in her 60s. Sister(s) Family Medical History: Diabetes Mellitus, Liver Disease Additional Family Medical History / Comment(s): Bi-polar, anxiety, hysterectomy, fatty liver. Brother(s) History Unknown: Yes Medications and Allergies Home Medications Medication Instructions Recorded Confirmed Type Montelukast Sodium [Singulair] 10 mg PO HS 06/01/16 07/07/19 History Albuterol Inhaler [Ventolin Hfa 2 puff INHALATION RT-Q6H PRN 10/15/17 07/07/19 History Inhaler] Beclomethasone Dipropionate [Qvar 2 puff INHALATION RT-BID 10/15/17 07/07/19 History 80 mcg] Venlafaxine HCl [Effexor XR] 150 mg PO HS 10/15/17 07/07/19 History Divalproex [Depakote] 500 mg PO BID tablet. 01/27/19 07/07/19 Rx metFORMIN HCL [Glucophage] 500 mg PO PC-SUPPER #0 02/19/19 07/07/19 Rx Acyclovir [Zovirax] 400 mg PO BID 04/02/19 07/07/19 History Metoprolol Tartrate [Lopressor] 25 mg PO HS 06/03/19 07/07/19 History Zolpidem [Ambien] 5 mg PO HS PRN #30 tab 06/09/19 07/07/19 Rx Voriconazole 100 mg PO DAILY@1130 06/19/19 07/07/19 History Amoxicillin/Potassium Clav 1 tab PO Q12HR #20 tab 06/27/19 07/07/19 Rx [Augmentin 875-125 Tablet] Venetoclax [Venclexta] 50 mg PO DAILY 07/07/19 07/07/19 History Allergies Allergy/AdvReac Type Severity Reaction Status Date / Time naproxen [From Naprosyn] Allergy Unknown Rash/Hives Verified 07/07/19 19:42 adhesive tape Allergy Rash/Hives Verified 07/07/19 19:42 ibuprofen Allergy Itching Verified 07/07/19 19:42 mold Allergy Unknown Verified 07/07/19 19:42 vancomycin Allergy Rash/Hives Verified 07/07/19 19:42 carrot AdvReac Dyspnea Verified 07/07/19 19:42 chocolate flavor AdvReac Dyspnea Verified 07/07/19 19:42 grass pollen-perennial rye, AdvReac Dyspnea Verified 07/07/19 19:42 standar Physical Exam Vitals: Vital Signs Temp Pulse Pulse Resp BP BP Pulse Ox 07/08/19 16:21 99.5 F 89 17 114/56 98 07/08/19 13:47 99.0 F 83 16 118/73 100 07/08/19 12:43 98.3 F 87 16 140/62 98 07/08/19 08:16 98.0 F 87 18 98/56 99 07/08/19 01:25 99.2 F 84 20 118/80 98 07/07/19 22:00 100 F H 94 16 117/56 98 07/07/19 20:14 99.4 F 07/07/19 17:01 98.3 F 97 18 128/71 100 Intake and Output 07/08/19 07/08/19 07/08/19 06:59 14:59 22:59 Intake Total 100 0 Output Total 200 Balance -100 0 Intake: Intake, IV Titration 100 Amount Piperacillin-Tazobactam 3 100 .375 gm In Sodium Chloride 0.9% 100 ml @ 25 mls/hr IVPB Q8HR [facility] Rx# :[id number] Blood Product 0 Rc Irr As1 Unit 0 [id number] Output: Urine 200 Other: Voiding Method Toilet Weight 88.904 kg - Constitutional General appearance: average body habitus, cooperative, no acute distress - EENT Eyes: anicteric sclerae, EOMI, poor dentition ENT: hearing grossly normal, normal oropharynx - Neck Neck: no lymphadenopathy - Respiratory Respiratory: bilateral: CTA - Cardiovascular Rhythm: regular Heart sounds: normal: S1, S2 Abnormal Heart Sounds: no systolic murmur, no diastolic murmur, no rub, no S3 Gallop, no S4 Gallop, no click, no other leg Peripheral Edema: bilateral: None - Gastrointestinal General gastrointestinal: no absent bowel sounds, no decreased bowel sounds, no distended, no hepatomegaly, no hyperactive bowel sounds, normal bowel sounds, no organomegaly, no rigid, no scaphoid, soft, no splenomegaly, no tenderness, no umbilical hernia, no ventral hernia - Integumentary Integumentary: normal turgor, pale - Neurologic Neurologic: CNII-XII intact - Musculoskeletal Musculoskeletal: strength equal bilaterally - Psychiatric Psychiatric: A&O x's 3, appropriate affect, intact judgment & insight Results CBC & Chem 7: 07/08/19 09:45 07/08/19 09:45 Labs: Abnormal Lab Results - Last 24 Hours (Table) 07/07/19 07/07/19 07/07/19 Range/Units 19:26 19:26 19:26 WBC 0.9 L* (3.8-10.6) k/uL RBC 2.49 L (4.30-5.90) m/uL Hgb 7.2 L (13.0-17.5) gm/dL Hct 20.0 L (39.0-53.0) % RDW 16.3 H (11.5-15.5) % Plt Count 20 L (150-450) k/uL BUN (9-20) mg/dL Creatinine 0.64 L (0.66-1.25) mg/dL Glucose 130 H (74-99) mg/dL Plasma Lactic Acid Cory 2.5 H* (0.7-2.0) mmol/L Calcium (8.4-10.2) mg/dL Total Protein (6.3-8.2) g/dL Albumin (3.5-5.0) g/dL Crossmatch 07/08/19 07/08/19 07/08/19 Range/Units 09:45 09:45 13:17 WBC 0.7 L* (3.8-10.6) k/uL RBC 2.42 L (4.30-5.90) m/uL Hgb 6.6 L* (13.0-17.5) gm/dL Hct 19.8 L* (39.0-53.0) % RDW 16.1 H (11.5-15.5) % Plt Count 11 L* (150-450) k/uL BUN 8 L (9-20) mg/dL Creatinine 0.60 L (0.66-1.25) mg/dL Glucose 114 H (74-99) mg/dL Plasma Lactic Acid Cory (0.7-2.0) mmol/L Calcium 8.3 L (8.4-10.2) mg/dL Total Protein 5.7 L (6.3-8.2) g/dL Albumin 3.2 L (3.5-5.0) g/dL Crossmatch See Detail Chest x-ray: report reviewed Assessment and Plan (1) Fever Narrative/Plan: Patient states that this was post platelet transfusion. The transfusion was giv en in [place]. Patient was given the option to be hospitalized either there locally, he chose to come here. No fever since admission. Suspect that he had a transfusion reaction. Pancultures have been ordered, empiric antibiotics initiated, Infectious Disease consult. Patient denies any signs or symptoms of infection, he actually feels pretty well at this time. 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 Unfortunately, patient did not have an adequate response to most recent treatment. No G-CSF is to be administered. Patient is not in remission. Current Visit: Yes Status: Acute Priority: High Code(s): D70.9 - NEUTROPENIA, UNSPECIFIED SNOMED Code(s): 288737647 (3) Acute erythroid leukemia Narrative/Plan: Bone marrow biopsy and aspirate done on 06/25/19 resulted a hypercellular marrow for age, markedly increased erythroid involving about 90% of the marrow elements. Have been working with Dr. Howard at [facility] in [place], patient needs dental extraction so that he can proceed forward finding a match for allogenic bone marrow transplant Current Visit: Yes Status: Acute Priority: High Code(s): C94.00 - ACUTE ERYTHROID LEUKEMIA, NOT HAVING ACHIEVED REMISSION SNOMED Code(s): 71821900 (4) Pancytopenia Narrative/Plan: Conservative transfusions only. Irradiated blood products only. Transfuse for hemoglobin less then 7 unless symptomatic. 1 unit today. Transfuse for platelet count less than 10,000 unless symptomatic No G-CSF, patient is not in remission. Current Visit: Yes Status: Chronic Priority: High Code(s): D61.818 - OTHER PANCYTOPENIA SNOMED Code(s): 410026888 Plan: Pt is ok for discharge from Hem/Onc standpoint once patient has been evaluated by Infectious Disease, and his cultures have resulted. He can resume outpatient antibiotic therapy as prescribed and we will continue to follow his counts and transfuse when necessary in the outpatient setting.
[2019-07-08 17:11] LABS: Glucose,Whole Blood 137 mg/dL (75-99)
[2019-07-08] MEDS: FLUTICASONE 110 MCG INHALER INHALATION SCH (18:17)
[2019-07-08] MEDS ORDERED: metFORMIN 500 MG TAB PO SCH (18:30)
[2019-07-08 19:57] LABS: Glucose,Whole Blood 147 mg/dL (75-99)
[2019-07-08] MEDS ORDERED: METOPROLOL TARTRATE 25 MG TAB PO SCH (21:00)
[2019-07-08] MEDS ORDERED: VENLAFAXINE HCL ER 75 MG CAP PO SCH (21:00)
[2019-07-08] MEDS ORDERED: MONTELUKAST 10 MG TAB PO SCH (21:00)
--- NOTE | 2019-07-08 22:29 | P.CONS ---
History of Present Illness - Reason for Consult Consult date: 07/08/19 Febrile neutropenia Requesting physician: Veronika Dotson - Chief Complaint Fever posttransfusion of platelets - History of Present Illness Patient is a 48-year-old male with a past medical history significant for erythroid leukemia in this patient who received chemotherapy subsequently post-chemo the patient was admitted hospital for febrile neutropenia all his cu ltures were negative and the patient was recently discharged home on Augmentin patient was evaluated at [facility] in [place] for evaluation regarding bone marrow transplant there were trying to have his teeth pulled and his blood counts were low the patient was advised platelet transfusion apparently after the second platelet transfusion the patient did have a fever of 102F patient was given the option of admission at [facility] or to go to the hospital need to his residence patient opted to come here to this facility patient on presentation did have low-grade fever of 100F the patient overall is feeling fine. Denies having any URI symptoms denies having this was in the month no chest pain shortness of breath or cough no nausea no vomiting no bone pain no diarrhea and she did have a chest x-ray that was negative for any acute pulmonary process, UA was negative patient was started on clindamycin and Zosyn infectious disease was consulted for further recommendation regardingAntibiotic therapy Review of Systems Positive point has been mentioned in the HPI rest of the systems are negative Past Medical History Past Medical History: Asthma, Cancer, Chest Pain / Angina, Diabetes Mellitus, GERD/Reflux, GI Bleed, Hyperlipidemia, Hypertension, Myocardial Infarction ([place]), Musculoskeletal Disorder, Osteoarthritis (OA), Sleep Apnea/CPAP/BIPAP Additional Past Medical History / Comment(s): Recent left lower abdominal pain/left urethral stone/pancytopenia (February). NIDDM type II, neuropathy bilateral hands/feet, colitis, hx lower GI bleed, CPAP use, chronic cervical/lumbar pain-has neurostimulator to both sites, bilateral carpal tunnel syndrome, occasional tinnitis, "soft" cardiac murmur. Last Myocardial Infarction Date:: 2004 History of Any Multi-Drug Resistant Organisms: None Reported Past Surgical History: Heart Catheterization With Stent, Hernia Repair, Joint Replacement Additional Past Surgical History / Comment(s): Bone marrow aspiration/biopsy, right knee arthroscopy X3, right total knee replacement with revision, left knee arthroscopy, cardiac stent X1, stent placed for kidney stone and then removed, COLONOSCOPY, cervical and lumbar neurostimulator implants, left inguinal hernia repair. Past Anesthesia/Blood Transfusion Reactions: No Reported Reaction Additional Past Anesthesia/Blood Transfusion Reaction / Comm: Pt has received blood/platelets before with no reaction. Date of Last Stent Placement:: 2004 Smoking Status: Current some day smoker - Past Family History Father Family Medical History: Congestive Heart Failure (CHF), Deep Vein Thrombosis (DVT), Myocardial Infarction ([place]), Pulmonary Embolus Additional Family Medical History / Comment(s): [place] at age 38. "hole in colon". Mother Family Medical History: Cancer, COPD, Diabetes Mellitus, Hyperlipidemia Additional Family Medical History / Comment(s): Mother had breast and lung cancer. She of lung cancer in her 60s. Sister(s) Family Medical History: Diabetes Mellitus, Liver Disease Additional Family Medical History / Comment(s): Bi-polar, anxiety, hysterectomy, fatty liver. Brother(s) History Unknown: Yes Medications and Allergies Home Medications Medication Instructions Recorded Confirmed Type Montelukast Sodium [Singulair] 10 mg PO HS 06/01/16 07/07/19 History Albuterol Inhaler [Ventolin Hfa 2 puff INHALATION RT-Q6H PRN 10/15/17 07/07/19 History Inhaler] Beclomethasone Dipropionate [Qvar 2 puff INHALATION RT-BID 10/15/17 07/07/19 History 80 mcg] Venlafaxine HCl [Effexor XR] 150 mg PO HS 10/15/17 07/07/19 History Divalproex [Depakote] 500 mg PO BID tablet. 01/27/19 07/07/19 Rx metFORMIN HCL [Glucophage] 500 mg PO PC-SUPPER #0 02/19/19 07/07/19 Rx Acyclovir [Zovirax] 400 mg PO BID 04/02/19 07/07/19 History Metoprolol Tartrate [Lopressor] 25 mg PO HS 06/03/19 07/07/19 History Zolpidem [Ambien] 5 mg PO HS PRN #30 tab 06/09/19 07/07/19 Rx Voriconazole 100 mg PO DAILY@1130 06/19/19 07/07/19 History Amoxicillin/Potassium Clav 1 tab PO Q12HR #20 tab 06/27/19 07/07/19 Rx [Augmentin 875-125 Tablet] Venetoclax [Venclexta] 50 mg PO DAILY 07/07/19 07/07/19 History Allergies Allergy/AdvReac Type Severity Reaction Status Date / Time naproxen [From Naprosyn] Allergy Unknown Rash/Hives Verified 07/07/19 19:42 adhesive tape Allergy Rash/Hives Verified 07/07/19 19:42 ibuprofen Allergy Itching Verified 07/07/19 19:42 mold Allergy Unknown Verified 07/07/19 19:42 vancomycin Allergy Rash/Hives Verified 07/07/19 19:42 carrot AdvReac Dyspnea Verified 07/07/19 19:42 chocolate flavor AdvReac Dyspnea Verified 07/07/19 19:42 grass pollen-perennial rye, AdvReac Dyspnea Verified 07/07/19 19:42 standar Physical Exam Vitals: Vital Signs Temp Pulse Pulse Resp BP BP Pulse Ox 07/08/19 20:20 99.1 F 83 17 114/63 98 07/08/19 17:01 99.1 F 89 16 128/58 99 07/08/19 16:31 99.4 F 85 17 112/61 99 07/08/19 16:21 99.5 F 89 17 114/56 98 07/08/19 13:47 99.0 F 83 16 118/73 100 07/08/19 12:43 98.3 F 87 16 140/62 98 07/08/19 08:16 98.0 F 87 18 98/56 99 07/08/19 01:25 99.2 F 84 20 118/80 98 Intake and Output 07/08/19 07/08/19 07/08/19 06:59 14:59 22:59 Intake Total 100 310 Output Total 200 Balance -100 310 Intake: Intake, IV Titration 100 Amount Piperacillin-Tazobactam 3 100 .375 gm In Sodium Chloride 0.9% 100 ml @ 25 mls/hr IVPB Q8HR [facility] Rx# :[id number] Blood Product 310 Rc Irr As1 Unit 310 [id number] Output: Urine 200 Other: Voiding Method Toilet Weight 88.904 kg GENERAL DESCRIPTION: Middle-aged male lying in bed, no distress. No tachypnea or accessory muscle of respiration use. HEENT: Shows Pallor , no scleral icterus. Oral mucous membrane is dry. No pharyngeal erythema or thrush NECK: Trachea central, no thyromegaly. LUNGS: Unlabored breathing. Clear to auscultation anteriorly. No wheeze or crackle. HEART: S1, S2, regular rate and rhythm. No loud murmur ABDOMEN: Soft, no tenderness , guarding or rigidity, no organomegaly EXTREMITIES: No edema of feet. SKIN: No rash, no masses palpable. NEUROLOGICAL: The patient is awake, alert, oriented x3, mood and affect normal. Results CBC & Chem 7: 07/08/19 09:45 07/08/19 09:45 Labs: Abnormal Lab Results - Last 24 Hours (Table) 07/08/19 07/08/19 07/08/19 Range/Units 09:45 09:45 13:17 WBC 0.7 L* (3.8-10.6) k/uL RBC 2.42 L (4.30-5.90) m/uL Hgb 6.6 L* (13.0-17.5) gm/dL Hct 19.8 L* (39.0-53.0) % RDW 16.1 H (11.5-15.5) % Plt Count 11 L* (150-450) k/uL BUN 8 L (9-20) mg/dL Creatinine 0.60 L (0.66-1.25) mg/dL Glucose 114 H (74-99) mg/dL POC Glucose (mg/dL) (75-99) mg/dL Calcium 8.3 L (8.4-10.2) mg/dL Total Protein 5.7 L (6.3-8.2) g/dL Albumin 3.2 L (3.5-5.0) g/dL Crossmatch See Detail 07/08/19 07/08/19 Range/Units 17:04 19:55 WBC (3.8-10.6) k/uL RBC (4.30-5.90) m/uL Hgb (13.0-17.5) gm/dL Hct (39.0-53.0) % RDW (11.5-15.5) % Plt Count (150-450) k/uL BUN (9-20) mg/dL Creatinine (0.66-1.25) mg/dL Glucose (74-99) mg/dL POC Glucose (mg/dL) 137 H 147 H (75-99) mg/dL Calcium (8.4-10.2) mg/dL Total Protein (6.3-8.2) g/dL Albumin (3.5-5.0) g/dL Crossmatch Microbiology - Last 24 Hours (Table) 07/07/19 19:26 Blood Culture - Preliminary Blood No Growth after 24 hours Assessment and Plan Assessment: 1-patient presented to hospital with fever that apparently started after the patient received platelets before pulling of his teeth with concern likely for transfusion reaction clinically doubt infectious etiology and the patient currently does not look toxic no further fever has been recorded except for low-grade of 100 and Fahrenheit patient chest x-ray is negative UA negative abdominal soft clinical examination and no evidence of any cellulitis (1) Fever Current Visit: Yes Status: Acute Priority: High Code(s): R50.9 - FEVER, UNSPECIFIED SNOMED Code(s): 095935493 Plan: 1-as a clinical suspicious is low for an infectious etiology and likely transfusion reaction I'm okay with discontinuation of his antibiotic therapy and wanted the patient closely off antibiotic 2-We will follow on clinical condition and cultures to further adjust medication if needed Thank you for this consultation will follow this patient with you Time with Patient: Greater than 30
[2019-07-09] MEDS: SODIUM CHLORIDE 0.9% 1,000 ML IV SCH ×2 (00:06→06:20)
[2019-07-09 05:04] VITALS: BP 120/67; PULSE 82; RESP 16; TEMP 98.3
[2019-07-09 06:59] LABS: Glucose,Whole Blood 110 mg/dL (75-99)
[2019-07-09 08:24] LABS: HCT 25.3 % (39.0-53.0); Hypochromasia Slight; MCH 28.6 pg (25.0-35.0); MCV 81.7 fL (80.0-100.0); Mean Platelet Volume 18.8; Poikilocytosis Moderate; RBC 3.09 m/uL (4.30-5.90); RDW 15.8 % (11.5-15.5)
[2019-07-09 08:32] LABS: HGB 8.8 gm/dL (13.0-17.5); Platelet Count 22 k/uL (150-450)
[2019-07-09 08:44] LABS: ALT 18 U/L (4-49); AST 21 U/L (17-59); African American GFR (CKD) >90 (>60 ml/min/1.73 sqM); Alkaline Phosphatase 65 U/L (38-126); Anion Gap 7 mmol/L; Blood Urea Nitrogen 10 mg/dL (9-20); Calcium 9.2 mg/dL (8.4-10.2); Carbon Dioxide 28 mmol/L (22-30); Chloride 103 mmol/L (98-107); Glucose 99 mg/dL (74-99); Non-African American GFR(CKD) >90 (>60 ml/min/1.73 sqM); Potassium 4.8 mmol/L (3.5-5.1); Sodium 138 mmol/L (137-145); Total Bilirubin 1.1 mg/dL (0.2-1.3); Total Protein 6.7 g/dL (6.3-8.2)
[2019-07-09] MEDS: PANTOPRAZOLE 40 MG/10 ML VIAL IV SCH (09:07)
[2019-07-09] MEDS: DIVALPROEX 500 MG TABLET.DR PO SCH (09:07)
[2019-07-09] MEDS: ACYCLOVIR 200 MG CAP PO SCH (09:07)
[2019-07-09] MEDS: FLUTICASONE 110 MCG INHALER INHALATION SCH (09:16)
[2019-07-09 09:30] LABS: Eosinophils # (M) 0.01 k/uL (0-0.7); Metamyelocytes % 6 %; Myelocytes % 4 %; Neutrophils % (M) 12 %
[2019-07-09 09:31] LABS: Basophils # (M) 0.02 k/uL (0-0.2); Blast Cells # (M) 0.02 k/uL (0); Lymphocytes # (M) 0.55 k/uL (1.0-4.8); Metamyelocytes # (M) 0.06 k/uL (0); Monocytes # (M) 0.18 k/uL (0-1.0); Myelocytes # (M) 0.04 k/uL (0); Neutrophils # (M) 0.12 k/uL (1.3-7.7); Nucleated Red Blood Cells 33 /100 WBC (0-0); Total Cells Counted 100
[2019-07-09 09:33] LABS: Large Platelets Present
--- NOTE | 2019-07-09 10:16 | P.PN ---
Subjective Progress Note Date: 07/09/19 This is a 48-year-old male patient well known to my services. Patient presented to the ER after he was receiving platelet stomach monos and was noted to have fever. Patient was instructed by his cancer doctor to proceed to ER for further evaluation. patient denies any recent sick contacts. patient recently underwent a second round of chemotherapy approximately 3 weeks ago and has had 2 previous admissions due to neutropenic fever. Lactic acid also elevated on admit 2.5. Elevated temperature 100. UA negative. Influenza negative. Chest x-ray showing no signs of infection. Patient has a past medical history of acute erythroid leukemia. Patient was recently discharged after hospital cessation for fever on Augmentin. Patient reports he has been taking. Additional medical history includes diabetes mellitus type 2, hypertension, seizures, anxiety, depression and bipolar. White blood cell low at 0.9, platelets 20. At this time will consult sections disease and oncology services. Patient started on clindamycin and Zosyn. Patient denies any chest pain or shortness breath. Patient denies vomiting or diarrhea. Patient denies any recent rashes or open wounds On 07/09/2019 patient is alert and oriented 3 resting comfortably in bed. Believes elevated temp with secondary to transfusion reaction. We'll continue to monitor patient off antibiotics per ID and oncology. At this time patient denies chest pain or shortness of breath. Patient denies nausea vomiting or diarrhea. Patient denies any urinary burning or frequency. Patient did have low-grade temp yesterday evening 99.5 Objective - Vital Signs Vital signs: Vital Signs Temp 98.3 F 07/09/19 05:03 Pulse 82 07/09/19 05:03 Resp 16 07/09/19 05:03 BP 120/67 07/09/19 05:03 Pulse Ox 97 07/09/19 05:03 Intake & Output 07/08/19 07/09/19 07/09/19 18:59 06:59 18:59 Intake Total 100 1160 Output Total 200 Balance -100 1160 Weight 88.904 kg Intake: Intake, IV Titration 100 260 Amount Piperacillin-Tazobactam 3 100 .375 gm In Sodium Chloride 0.9% 100 ml @ 25 mls/hr IVPB Q8HR [facility] Rx# :[id number] Sodium Chloride 0.9% 1, 260 000 ml @ 130 mls/hr IV . Q7H42M [facility] Rx#:[id number] Oral 590 Blood Product 0 310 Rc Irr As1 Unit 0 310 [id number] Output: Urine 200 Other: Voiding Method Toilet Toilet Toilet # Voids 2 - Exam Head normocephalic Neck supple Lungs clear to auscultation bilaterally no wheezing or crackles Heart regular rate and rhythm S1-S2, no rub or gallop Abdomen is soft nontender nondistended positive bowel sounds no hepatosplenomegaly Extremities no edema Neuro alert and orientated to 3 - Labs CBC & Chem 7: 07/09/19 08:03 07/09/19 08:03 Labs: Abnormal Lab Results - Last 24 Hours (Table) 07/08/19 07/08/19 07/08/19 Range/Units 09:45 09:45 13:17 WBC 0.7 L* (3.8-10.6) k/uL RBC 2.42 L (4.30-5.90) m/uL Hgb 6.6 L* (13.0-17.5) gm/dL Hct 19.8 L* (39.0-53.0) % RDW 16.1 H (11.5-15.5) % Plt Count 11 L* (150-450) k/uL Blast Cells % % Neutrophils # (Manual) (1.3-7.7) k/uL Lymphocytes # (Manual) (1.0-4.8) k/uL Metamyelocytes # (Man) (0) k/uL Myelocytes # (Manual) (0) k/uL Blast Cells # (Man) (0) k/uL Nucleated RBCs (0-0) /100 WBC BUN 8 L (9-20) mg/dL Creatinine 0.60 L (0.66-1.25) mg/dL Glucose 114 H (74-99) mg/dL POC Glucose (mg/dL) (75-99) mg/dL Calcium 8.3 L (8.4-10.2) mg/dL Total Protein 5.7 L (6.3-8.2) g/dL Albumin 3.2 L (3.5-5.0) g/dL Crossmatch See Detail 07/08/19 07/08/19 07/09/19 Range/Units 17:04 19:55 06:57 WBC (3.8-10.6) k/uL RBC (4.30-5.90) m/uL Hgb (13.0-17.5) gm/dL Hct (39.0-53.0) % RDW (11.5-15.5) % Plt Count (150-450) k/uL Blast Cells % % Neutrophils # (Manual) (1.3-7.7) k/uL Lymphocytes # (Manual) (1.0-4.8) k/uL Metamyelocytes # (Man) (0) k/uL Myelocytes # (Manual) (0) k/uL Blast Cells # (Man) (0) k/uL Nucleated RBCs (0-0) /100 WBC BUN (9-20) mg/dL Creatinine (0.66-1.25) mg/dL Glucose (74-99) mg/dL POC Glucose (mg/dL) 137 H 147 H 110 H (75-99) mg/dL Calcium (8.4-10.2) mg/dL Total Protein (6.3-8.2) g/dL Albumin (3.5-5.0) g/dL Crossmatch 07/09/19 07/09/19 Range/Units 08:03 08:03 WBC 1.0 L* (3.8-10.6) k/uL RBC 3.09 L (4.30-5.90) m/uL Hgb 8.8 L D (13.0-17.5) gm/dL Hct 25.3 L (39.0-53.0) % RDW 15.8 H (11.5-15.5) % Plt Count 22 L D (150-450) k/uL Blast Cells % 2 H* % Neutrophils # (Manual) 0.12 L* (1.3-7.7) k/uL Lymphocytes # (Manual) 0.55 L (1.0-4.8) k/uL Metamyelocytes # (Man) 0.06 H (0) k/uL Myelocytes # (Manual) 0.04 H (0) k/uL Blast Cells # (Man) 0.02 H (0) k/uL Nucleated RBCs 33 H (0-0) /100 WBC BUN (9-20) mg/dL Creatinine 0.58 L (0.66-1.25) mg/dL Glucose (74-99) mg/dL POC Glucose (mg/dL) (75-99) mg/dL Calcium (8.4-10.2) mg/dL Total Protein (6.3-8.2) g/dL Albumin (3.5-5.0) g/dL Crossmatch Microbiology - Last 24 Hours (Table) 07/07/19 19:26 Blood Culture - Preliminary Blood No Growth after 24 hours Assessment and Plan Assessment: 1. Neutropenic fever with no signs of infection. WBC 0.9. UA negative. Chest x-ray negative. Influenza negative. Infectious disease consulted. Patient sta rted on vancomycin and clindamycin. Cultures ordered. Per infectious disease clinical suspicion is low for infectious etiology likely transfusion reaction at this time antibiotics have been discontinued and watch patient closely off antibiotics 2. Acute erythroid leukemia. Patient completed the chronic inpatient chemotherapy on 06/09/2019. Patient has followed with Fernando. Last bone marrow biopsy on 06/25/2019 patient results still pending 3. Diabetes mellitus type 2. Metformin resumed 4. History of essential hypertension 5. History of bipolar depression. Home meds resumed 6. History of seizures 7. 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 Oncology services have been consulted. Patient received 1 unit PRBCs for low hemoglobin. Per oncology continue conservative transfusions DVT prophylaxis SCDs due to pancytopenia. GI prophylaxis Protonix Oncology and infectious disease consulted I performed an examination of the patient and discussed their management with the Nurse Practitioner. I have reviewed the Nurse Practitioner's notes and agree with the documented findings and plan of care
[2019-07-09 10:58] LABS: Glucose,Whole Blood 123 mg/dL (75-99)
--- NOTE | 2019-07-09 11:04 | PN ---
PROGRESS NOTE DATE OF SERVICE: 07/09/2019 REASON FOR FOLLOWUP: Fever. INTERVAL HISTORY: The patient remains to be afebrile. The patient overall has been feeling better. Breathing comfortably. Denies having any pain on chewing or mouth. No difficulty swallowing. No chest pain, shortness of breath or cough. No abdominal pain. No diarrhea. PHYSICAL EXAMINATION: Blood pressure 120/67 with pulse of 82, temperature 98.3. He is 97% on room air. General description is a middle-aged male lying in bed in no distress. Respiratory system: Unlabored breathing, clear to auscultation anteriorly. HEART: S1, S2. Regular rate and rhythm. ABDOMEN: Soft, no tenderness. LABS: Hemoglobin 8.8, white count 1.0. Blood culture has been negative. DIAGNOSTIC IMPRESSION AND PLAN: Patient admitted to the hospital with fever, possible transfusion related clinical suspicion of underlying infection. Antibiotic has been discontinued as the patient remains to be afebrile. Recommend no further antibiotic at this point. Will monitor the patient closely off antibiotic therapy. Continue supportive care. MMODL / IJN: [id number] /
[2019-07-09] MEDS: VORICONAZOLE 200 MG TAB PO SCH (11:43)
--- NOTE | 2019-07-09 12:55 | P.PN ---
Subjective Progress Note Date: 07/09/19 Principal diagnosis: Fever post transfusion, pancytopenia secondary to disease and treatment In follow-up today patient denies fevers, oral irritation, sore throat, earache, cough or congestion, nausea, vomiting, abdominal pain, cramping, diarrhea, constipation, dysuria or bleeding. He is fully ambulatory, denies dizziness, he states he has a headache, nothing unusual, no neurological deficits. Objective - Vital Signs Vital signs: Vital Signs Temp 98.3 F 07/09/19 05:03 Pulse 82 07/09/19 05:03 Resp 16 07/09/19 05:03 BP 120/67 07/09/19 05:03 Pulse Ox 97 07/09/19 05:03 Intake & Output 07/08/19 07/09/19 07/09/19 18:59 06:59 18:59 Intake Total 100 1160 Output Total 200 Balance -100 1160 Weight 88.904 kg Intake: Intake, IV Titration 100 260 Amount Piperacillin-Tazobactam 3 100 .375 gm In Sodium Chloride 0.9% 100 ml @ 25 mls/hr IVPB Q8HR [facility] Rx# :[id number] Sodium Chloride 0.9% 1, 260 000 ml @ 130 mls/hr IV . Q7H42M [facility] Rx#:[id number] Oral 590 Blood Product 0 310 Rc Irr As1 Unit 0 310 [id number] Output: Urine 200 Other: Voiding Method Toilet Toilet Toilet # Voids 2 - Constitutional General appearance: Present: average body habitus, cooperative, no acute distress - EENT Eyes: Present: EOMI, poor dentition ENT: Present: hearing grossly normal, normal oropharynx - Respiratory Respiratory: bilateral: CTA - Cardiovascular Rhythm: regular Heart sounds: normal: S1, S2 Abnormal Heart Sounds: Absent: systolic murmur, diastolic murmur, rub, S3 Gallop, S4 Gallop, click, other - Peripheral edema leg Peripheral Edema: bilateral: None - Gastrointestinal General gastrointestinal: Present: normal bowel sounds, soft - Integumentary Integumentary: Present: normal turgor, pale - Neurologic Neurologic: Present: CNII-XII intact - Musculoskeletal Musculoskeletal: Present: strength equal bilaterally - Psychiatric Psychiatric: Present: A&O x's 3, appropriate affect, intact judgment & insight - Labs CBC & Chem 7: 07/09/19 08:03 07/09/19 08:03 Labs: Abnormal Lab Results - Last 24 Hours (Table) 07/08/19 07/08/19 07/08/19 Range/Units 13:17 17:04 19:55 WBC (3.8-10.6) k/uL RBC (4.30-5.90) m/uL Hgb (13.0-17.5) gm/dL Hct (39.0-53.0) % RDW (11.5-15.5) % Plt Count (150-450) k/uL Blast Cells % % Neutrophils # (Manual) (1.3-7.7) k/uL Lymphocytes # (Manual) (1.0-4.8) k/uL Metamyelocytes # (Man) (0) k/uL Myelocytes # (Manual) (0) k/uL Blast Cells # (Man) (0) k/uL Nucleated RBCs (0-0) /100 WBC Creatinine (0.66-1.25) mg/dL POC Glucose (mg/dL) 137 H 147 H (75-99) mg/dL Crossmatch See Detail 07/09/19 07/09/19 07/09/19 Range/Units 06:57 08:03 08:03 WBC 1.0 L* (3.8-10.6) k/uL RBC 3.09 L (4.30-5.90) m/uL Hgb 8.8 L D (13.0-17.5) gm/dL Hct 25.3 L (39.0-53.0) % RDW 15.8 H (11.5-15.5) % Plt Count 22 L D (150-450) k/uL Blast Cells % 2 H* % Neutrophils # (Manual) 0.12 L* (1.3-7.7) k/uL Lymphocytes # (Manual) 0.55 L (1.0-4.8) k/uL Metamyelocytes # (Man) 0.06 H (0) k/uL Myelocytes # (Manual) 0.04 H (0) k/uL Blast Cells # (Man) 0.02 H (0) k/uL Nucleated RBCs 33 H (0-0) /100 WBC Creatinine 0.58 L (0.66-1.25) mg/dL POC Glucose (mg/dL) 110 H (75-99) mg/dL Crossmatch 07/09/19 Range/Units 10:56 WBC (3.8-10.6) k/uL RBC (4.30-5.90) m/uL Hgb (13.0-17.5) gm/dL Hct (39.0-53.0) % RDW (11.5-15.5) % Plt Count (150-450) k/uL Blast Cells % % Neutrophils # (Manual) (1.3-7.7) k/uL Lymphocytes # (Manual) (1.0-4.8) k/uL Metamyelocytes # (Man) (0) k/uL Myelocytes # (Manual) (0) k/uL Blast Cells # (Man) (0) k/uL Nucleated RBCs (0-0) /100 WBC Creatinine (0.66-1.25) mg/dL POC Glucose (mg/dL) 123 H (75-99) mg/dL Crossmatch Microbiology - Last 24 Hours (Table) 07/07/19 19:26 Blood Culture - Preliminary Blood No Growth after 24 hours Assessment and Plan (1) Fever Narrative/Plan: Patient states that this was post platelet transfusion. The transfusion was given in [place]. Patient was given the option to be hospitalized either there locally, he chose to come here. No fever since admission. Suspect that he had a transfusion reaction. Pancultures have been ordered, empiric antibiotics initiated, Infectious Disease has seen pt, recommendations reviewed. Patient today denies signs or symptoms of infection. He was educated on s/s infection, temp monitoring at home. He continues for feel overall well Current Visit: Yes Status: Acute Priority: High Code(s): R50.9 - FEVER, UNSPECIFIED SNOMED Code(s): 488738857 (2) Neutropenia Narrative/Plan: WBC is 1, 1st time since Jun 09, ANC is jist over 100. Blast count noted-pt is not in remission, pending plan of care as pt is s/p 2 lines of therapy with no meaningful response Current Visit: Yes Status: Acute Priority: High Code(s): D70.9 - NEUTROPENIA, UNSPECIFIED SNOMED Code(s): 468430569 (3) Acute erythroid leukemia Narrative/Plan: Bone marrow biopsy and aspirate done on 06/25/19 resulted a hypercellular marrow for age, markedly increased erythroid involving about 90% of the marrow elements. Have been working with Dr. Howard at [facility] in [place], patient needs dental extraction so that he can proceed forward finding a match for allogenic bone marrow transplant. Dr. Rojas Discussed case with Dr. Hoawrd last evening. Pending slide review from [place] to develop treatment plan of care-pt has no actionable mutations. Plan until treatment is defined is to continue to support patient and provide him with transfusions as needed. He will continue on antibiotics, antifungals and antivirals. Will work with Infectious Disease. Patient does verbalize understanding the plan. We will put him back on a Sunday, Sunday, Sunday blood draw Current Visit: Yes Status: Acute Priority: High Code(s): C94.00 - ACUTE ERYTHROID LEUKEMIA, NOT HAVING ACHIEVED REMISSION SNOMED Code(s): 73860466 (4) Pancytopenia Narrative/Plan: Conservative transfusions only. Irradiated blood products only. Transfuse for hemoglobin less then 7 unless symptomatic. 8.8 today Transfuse for platelet count less than 10,000 unless symptomatic. He did not receive a transfusion, plt are 22K today No G-CSF, patient is not in remission. WBC 1, ANC just above 100-best is has been since mid May Current Visit: Yes Status: Chronic Priority: High Code(s): D61.818 - OTHER PANCYTOPENIA SNOMED Code(s): 295344145 Plan: Pt is ok for discharge from Hem/Onc standpoint once cleared by Attending and Consulting Physicians
--- NOTE | 2019-07-09 15:05 | P.DS ---
Providers Date of admission: 07/07/19 21:57 Expected date of discharge: 07/09/19 Attending physician: Veronika Dotson Consults: 07/08/19 08:36 Consult Physician Routine Consulting Provider: Guille Rojas Consult Reason/Comments: established patient, Do you want consulting provider notified?: Yes Consult Physician Routine Consulting Provider: Hubert De Anda Consult Reason/Comments: neutropenic fever Do you want consulting provider notified?: Yes Primary care physician: Veronika Dotson Hospital Course: Discharge diagnosis 1. Neutropenic fever with no signs of infection. WBC 0.9. UA negative. Chest x-ray negative. Influenza negative. Infectious disease consulted. Patient started on vancomycin and clindamycin. Cultures ordered. Per infectious dise ase clinical suspicion is low for infectious etiology likely transfusion reaction at this time antibiotics have been discontinued and watch patient closely off antibiotics. Patient cleared for discharge from oncology and infectious disease 2. Acute erythroid leukemia. Patient completed the chronic inpatient chemotherapy on 06/09/2019. Patient has followed with [facility]. Last bone marrow biopsy on 06/25/2019 patient results still pending 3. Diabetes mellitus type 2. Metformin resumed 4. History of essential hypertension 5. History of bipolar depression. Home meds resumed 6. History of seizures 7. 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 Oncology services have been consulted. Patient received 1 unit PRBCs for low hemoglobin. Per oncology continue conservative transfusions Hospital course This is a 48-year-old male patient well known to my services. Patient presented to the ER after he was receiving platelet stomach monos and was noted to have fever. Patient was instructed by his cancer doctor to proceed to ER for further evaluation. patient denies any recent sick contacts. patient recently underwent a second round of chemotherapy approximately 3 weeks ago and has had 2 previous admissions due to neutropenic fever. Lactic acid also elevated on admit 2.5. Elevated temperature 100. UA negative. Influenza negative. Chest x-ray showing no signs of infection. Patient has a past medical history of acute erythroid leukemia. Patient was recently discharged after hospital cessation for fever on Augmentin. Patient reports he has been taking. Additional medical history includes diabetes mellitus type 2, hypertension, seizures, anxiety, depression and bipolar. White blood cell low at 0.9, platelets 20. At this time will consult sections disease and oncology services. Patient started on clindamycin and Zosyn. Patient denies any chest pain or shortness breath. Patient denies vomiting or diarrhea. Patient denies any recent rashes or open wounds On 07/09/2019 patient is alert and oriented 3 resting comfortably in bed. Believes elevated temp with secondary to transfusion reaction. We'll continue to monitor patient off antibiotics per ID and oncology. At this time patient denies chest pain or shortness of breath. Patient denies nausea vomiting or diarrhea. Patient denies any urinary burning or frequency. Patient did have low-grade temp yesterday evening 99.5 Patient cleared for discharge from infectious disease and oncology services no need for antibiotics upon discharge I performed an examination of the patient and discussed their management with the Nurse Practitioner. I have reviewed the Nurse Practitioner's notes and agree with the documented findings and plan of care Patient Condition at Discharge: Stable Plan - Discharge Summary Discharge Rx Participant: No New Discharge Prescriptions: Continue Montelukast Sodium [Singulair] 10 mg PO HS Albuterol Inhaler [Ventolin Hfa Inhaler] 2 puff INHALATION RT-Q6H PRN PRN Reason: Shortness Of Breath Beclomethasone Dipropionate [Qvar 80 mcg] 2 puff INHALATION RT-BID Divalproex [Depakote] 500 mg PO BID tablet. metFORMIN HCL [Glucophage] 500 mg PO PC-SUPPER #0 Acyclovir [Zovirax] 400 mg PO BID Metoprolol Tartrate [Lopressor] 25 mg PO HS Zolpidem [Ambien] 5 mg PO HS PRN #30 tab PRN Reason: Insomnia Voriconazole 100 mg PO DAILY@1130 Venetoclax [Venclexta] 50 mg PO DAILY Venlafaxine HCl [Effexor XR] 150 mg PO HS 30 Days #30 tab Discontinued Amoxicillin/Potassium Clav [Augmentin 875-125 Tablet] 1 tab PO Q12HR #20 tab Discharge Medication List Montelukast Sodium [Singulair] 10 mg PO HS 06/01/16 [History] Albuterol Inhaler [Ventolin Hfa Inhaler] 2 puff INHALATION RT-Q6H PRN 10/15/17 [History] Beclomethasone Dipropionate [Qvar 80 mcg] 2 puff INHALATION RT-BID 10/15/17 [History] Divalproex [Depakote] 500 mg PO BID tablet. 01/27/19 [Rx] metFORMIN HCL [Glucophage] 500 mg PO PC-SUPPER #0 02/19/19 [Rx] Acyclovir [Zovirax] 400 mg PO BID 04/02/19 [History] Metoprolol Tartrate [Lopressor] 25 mg PO HS 06/03/19 [History] Zolpidem [Ambien] 5 mg PO HS PRN #30 tab 06/09/19 [Rx] Voriconazole 100 mg PO DAILY@1130 06/19/19 [History] Venetoclax [Venclexta] 50 mg PO DAILY 07/07/19 [History] Venlafaxine HCl [Effexor XR] 150 mg PO HS 30 Days #30 tab 07/09/19 [Rx] Follow up Appointment(s)/Referral(s): Guille Rojas MD [STAFF PHYSICIAN] - 07/11/19 9:00 am Veronika Dotson MD [Primary Care Provider] - 1-2 days Activity/Diet/Wound Care/Special Instructions: Activity as tolerated Diet heart healthy Discharge Disposition: HOME SELF-CARE
== END 2019-07-09 15:50 | disposition home or self-care (01) | DRG 809 ==
LOC: EC 16:53 → 5NMEDONC 21:57
PROVIDERS: ADMIT Internal Medicine; ATTEND Internal Medicine
PROC: 30233R1 Transfusion of Nonautologous Platelets into Peripheral Vein, Percutaneous Approach (ICD-10-PCS; principal; 2019-07-07)
DX: D70.9 Neutropenia, unspecified (principal); C94.00 Acute erythroid leukemia, not having achieved remission; M19.90 Unspecified osteoarthritis, unspecified site; F41.9 Anxiety disorder, unspecified; F17.200 Nicotine dependence, unspecified, uncomplicated; E78.5 Hyperlipidemia, unspecified; E11.9 Type 2 diabetes mellitus without complications; I10 Essential (primary) hypertension; J45.909 Unspecified asthma, uncomplicated; R56.9 Unspecified convulsions; D61.818 Other pancytopenia; T80.92XA Unspecified transfusion reaction, initial encounter; Y84.8 Other medical procedures as the cause of abnormal reaction of the patient, or of later complication, without mention of misadventure at the time of the procedure; Z96.651 Presence of right artificial knee joint; Z95.5 Presence of coronary angioplasty implant and graft; Z99.89 Dependence on other enabling machines and devices; Z98.890 Other specified postprocedural states; I25.2 Old myocardial infarction; Z83.3 Family history of diabetes mellitus; Z82.5 Family history of asthma and other chronic lower respiratory diseases; Z82.49 Family history of ischemic heart disease and other diseases of the circulatory system; Z79.899 Other long term (current) drug therapy; Z79.84 Long term (current) use of oral hypoglycemic drugs; Z88.6 Allergy status to analgesic agent; Z88.1 Allergy status to other antibiotic agents; Z88.5 Allergy status to narcotic agent; Z91.018 Allergy to other foods; Z91.048 Other nonmedicinal substance allergy status; Z91.09 Other allergy status, other than to drugs and biological substances; Z87.442 Personal history of urinary calculi; Z80.1 Family history of malignant neoplasm of trachea, bronchus and lung
CPT/HCPCS: 36415; 71046; 80053; 81003; 83605; 85025; 86850; 86900; 86901; 86920; 87040; 87502; 93005; 94640; 96361; 96365; 96366; 96367; 96375; 99285

== ENCOUNTER 2019-08-14 14:38 | Inpatient (IN) | payer MEDICARE, OTHER ==
[2019-08-14] MEDS ORDERED: ALBUTEROL NEBULIZED 2.5 MG/3 ML INHALATION PRN (16:47)
[2019-08-14 16:58] LABS: Glucose,Whole Blood 103 mg/dL (75-99)
--- NOTE | 2019-08-14 17:05 | P.PN ---
Progress Note - Text Progress Note Date: 08/14/19 Pt is currently awaiting confirmation of bone marrow match to proceed with BMT. He is on venetoclax daily. He is in office 3 times a week for CBC and transfusions PRN, irradiated blood products. In office today pt was exhibiting rigors, tachycardia at rest, he was pale and looked weak, sent to hospital due to concerns that pt progressing to neutropenic fever. Discussed case with ELAN VEGA who has accepted direct admit for neutropenia. Pancultures ordered. VS monitoring Home meds reconciled No asa, NSAIDs anticoagulation Formal consult in AM.
--- NOTE | 2019-08-14 17:15 | XR ---
EXAMINATION TYPE: XR chest 2V DATE OF EXAM: 08/14/2019 COMPARISON: 07/07/2019 HISTORY: Fever TECHNIQUE: FINDINGS: Heart and mediastinum are normal. Lungs are clear. Diaphragm is normal. There is no stimula tor wires in upper thoracic spine. Costophrenic angles are clear. Bony thorax is intact. IMPRESSION: No cardiopulmonary disease. Normal heart. No change.
[2019-08-14] MEDS: metFORMIN 500 MG TAB PO SCH (17:19)
[2019-08-14 17:37] LABS: Appearance,Urine Clear (Clear); Bilirubin,Urine Negative (Negative); Blood,Urine Negative (Negative); Color,Urine Yellow; Glucose,Urine (UA) Negative (Negative); Ketones,Urine Trace (Negative); Leukocyte Esterase,Urine Negative (Negative); Nitrite,Urine Negative (Negative); PH, Urine 6.5 (5.0-8.0); Protein,Urine Negative (Negative); Specific Gravity,Urine 1.018 (1.001-1.035)
[2019-08-14 17:42] LABS: Anisocytosis Slight; MCH 27.5 pg (25.0-35.0); MCV 80.7 fL (80.0-100.0); Mean Platelet Volume 8.8; Microcytosis Slight; Poikilocytosis Slight; RDW 16.8 % (11.5-15.5)
[2019-08-14 17:54] LABS: WBC 0.3 k/uL (3.8-10.6)
[2019-08-14 17:55] LABS: HCT 17.8 % (39.0-53.0)
[2019-08-14 17:56] LABS: Platelet Count 5 k/uL (150-450)
[2019-08-14] MEDS: INSULIN ASPART (NovoLOG) 100 UNIT/ML VIAL SQ SCH ×2 (18:07→20:34)
[2019-08-14] MEDS: CEFEPIME 2 GM in SODIUM CHLORIDE 0.9% 100 ML IVPB SCH (18:16)
[2019-08-14 18:19] LABS: ALT 11 U/L (4-49); AST 13 U/L (17-59); African American GFR (CKD) >90 (>60 ml/min/1.73 sqM); Albumin 3.7 g/dL (3.5-5.0); Alkaline Phosphatase 64 U/L (38-126); Anion Gap 10 mmol/L; Blood Urea Nitrogen 19 mg/dL (9-20); Calcium 8.7 mg/dL (8.4-10.2); Carbon Dioxide 27 mmol/L (22-30); Chloride 101 mmol/L (98-107); Glucose 90 mg/dL (74-99); Non-African American GFR(CKD) >90 (>60 ml/min/1.73 sqM); Potassium 4.2 mmol/L (3.5-5.1); Sodium 138 mmol/L (137-145); Total Bilirubin 1.1 mg/dL (0.2-1.3); Total Protein 6.2 g/dL (6.3-8.2)
[2019-08-14] MEDS: FLUTICASONE 110 MCG INHALER INHALATION SCH (18:41)
[2019-08-14 20:34] LABS: Glucose,Whole Blood 104 mg/dL (75-99)
[2019-08-14] MEDS: ACYCLOVIR 200 MG CAP PO SCH (20:42)
[2019-08-14] MEDS: VENLAFAXINE HCL ER 150 MG CAP PO SCH (20:43)
[2019-08-14] MEDS: MONTELUKAST 10 MG TAB PO SCH (20:43)
[2019-08-14] MEDS: DIVALPROEX 500 MG TABLET.DR PO SCH (20:43)
[2019-08-14] MEDS: METOPROLOL TARTRATE 25 MG TAB PO SCH (20:43)
[2019-08-15] MEDS: CEFEPIME 2 GM in SODIUM CHLORIDE 0.9% 100 ML IVPB SCH ×3 (03:32→17:33)
[2019-08-15 07:13] LABS: Glucose,Whole Blood 109 mg/dL (75-99)
[2019-08-15] MEDS: INSULIN ASPART (NovoLOG) 100 UNIT/ML VIAL SQ SCH ×4 (07:23→20:22)
[2019-08-15] MEDS: DIVALPROEX 500 MG TABLET.DR PO SCH ×2 (08:28→20:10)
[2019-08-15] MEDS: ACYCLOVIR 200 MG CAP PO SCH ×2 (08:29→20:07)
[2019-08-15] MEDS: FLUTICASONE 110 MCG INHALER INHALATION SCH ×2 (08:35→19:59)
[2019-08-15] MEDS ORDERED: LEVOFLOXACIN 500 MG TAB PO SCH (09:00)
[2019-08-15 09:19] LABS: ALT 10 U/L (4-49); AST 12 U/L (17-59); African American GFR (CKD) >90 (>60 ml/min/1.73 sqM); Albumin 3.6 g/dL (3.5-5.0); Alkaline Phosphatase 64 U/L (38-126); Anion Gap 9 mmol/L; Blood Urea Nitrogen 15 mg/dL (9-20); Calcium 8.5 mg/dL (8.4-10.2); Carbon Dioxide 26 mmol/L (22-30); Chloride 103 mmol/L (98-107); Glucose 87 mg/dL (74-99); Non-African American GFR(CKD) >90 (>60 ml/min/1.73 sqM); Potassium 3.9 mmol/L (3.5-5.1); Sodium 138 mmol/L (137-145); Total Bilirubin 1.3 mg/dL (0.2-1.3); Total Protein 6.2 g/dL (6.3-8.2)
[2019-08-15 09:31] LABS: Anisocytosis Slight; HCT 20.8 % (39.0-53.0); HGB 7.2 gm/dL (13.0-17.5); MCH 28.3 pg (25.0-35.0); MCHC 34.4 g/dL (31.0-37.0); MCV 82.2 fL (80.0-100.0); Mean Platelet Volume 7.9; Poikilocytosis Slight; RBC 2.53 m/uL (4.30-5.90); RDW 16.5 % (11.5-15.5)
[2019-08-15 09:37] LABS: Platelet Count 10 k/uL (150-450); WBC 0.4 k/uL (3.8-10.6)
[2019-08-15 10:42] VITALS: BMI 28.3
[2019-08-15 11:32] LABS: Glucose,Whole Blood 94 mg/dL (75-99)
[2019-08-15] MEDS: VORICONAZOLE 200 MG TAB PO SCH (12:03)
--- NOTE | 2019-08-15 16:41 | P.HPIM ---
History of Present Illness H&P Date: 08/15/19 Fransisco Burnham is a 48-year-old male who was admitted to [facility] oncology floor directly from the oncology office after presenting with some rigors and having episodes of neutropenia. Patient has a known history of acute erythroid leukemia, he has been receiving chemotherapy on and off. Patient was seen and examined on the medical floor he is alert and oriented 3 in no apparent distress he denies any fever he was having occasional chills otherwise he denies any complaints there was no headache or dizziness no chest pain no shortness of breath no cough no nausea or vomiting no abdominal pain no diarrhea and no burning with urination no frequency or urgency and no hematuria. 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 Last Myocardial Infarction Date:: 2004 History of Any Multi-Drug Resistant Organisms: None Reported Past Surgical History: Heart Catheterization With Stent, Hernia Repair, Joint Replacement Additional Past Surgical History / Comment(s): Bone marrow aspirations/biopsies, right knee arthroscopy X3, right total knee replacement with revision, left knee arthroscopy, cardiac stent X1, stent placed for kidney stone and then removed, COLONOSCOPY, cervical and lumbar neurostimulator implants, left inguinal hernia repair. Past Anesthesia/Blood Transfusion Reactions: No Reported Reaction Additional Past Anesthesia/Blood Transfusion Reaction / Comment(s): Pt has received blood/platelets before with no reaction. Date of Last Stent Placement:: 2004 Smoking Status: Current every day smoker - Past Family History Father Family Medical History: Congestive Heart Failure (CHF), Deep Vein Thrombosis (DVT), Myocardial Infarction ([place]), Pulmonary Embolus Additional Family Medical History / Comment(s): [place] at age 38. "hole in colon". Mother Family Medical History: Cancer, COPD, Diabetes Mellitus, Hyperlipidemia Additional Family Medical History / Comment(s): Mother had breast and lung cancer. She of lung cancer in her 60s. Sister(s) Family Medical History: Diabetes Mellitus, Liver Disease Additional Family Medical History / Comment(s): Bi-polar, anxiety, hysterectomy, fatty liver. Brother(s) History Unknown: Yes Medications and Allergies Home Medications Medication Instructions Recorded Confirmed Type Montelukast Sodium [Singulair] 10 mg PO HS 06/01/16 08/14/19 History Albuterol Inhaler [Ventolin Hfa 2 puff INHALATION RT-Q6H PRN 10/15/17 08/14/19 History Inhaler] Beclomethasone Dipropionate [Qvar 2 puff INHALATION RT-BID 10/15/17 08/14/19 History 80 mcg] Divalproex [Depakote] 500 mg PO BID tablet. 01/27/19 08/14/19 Rx metFORMIN HCL [Glucophage] 500 mg PO PC-SUPPER #0 02/19/19 08/14/19 Rx Acyclovir [Zovirax] 400 mg PO BID 04/02/19 08/14/19 History Metoprolol Tartrate [Lopressor] 25 mg PO HS 06/03/19 08/14/19 History Zolpidem [Ambien] 5 mg PO HS PRN #30 tab 06/09/19 08/14/19 Rx Voriconazole 100 mg PO DAILY@1130 06/19/19 08/14/19 History Venlafaxine HCl [Effexor XR] 150 mg PO HS 30 Days #30 tab 07/09/19 08/14/19 Rx HYDROcodone/APAP 10-325MG [[place] 1 tab PO TID PRN 08/08/19 08/14/19 History 10-325] Levofloxacin [Levaquin] 500 mg PO DAILY 08/14/19 08/14/19 History Venetoclax [Venclexta] 400 mg PO AC-SUPPER 08/14/19 08/14/19 History Allergies Allergy/AdvReac Type Severity Reaction Status Date / Time naproxen [From Naprosyn] Allergy Severe Rash/Hives Verified 08/14/19 16:54 vancomycin Allergy Severe Rash/Hives Verified 08/14/19 16:54 adhesive tape Allergy Intermediate Rash/Hives Verified 08/14/19 16:54 ibuprofen Allergy Intermediate Itching Verified 08/14/19 16:54 mold Allergy Unknown Verified 08/14/19 16:54 carrot AdvReac Severe Dyspnea Verified 08/14/19 16:54 chocolate flavor AdvReac Severe Dyspnea Verified 08/14/19 16:54 grass pollen-perennial rye, AdvReac Intermediate Dyspnea Verified 08/14/19 16:54 standar Physical Exam Vitals: Vital Signs Temp Pulse Pulse Resp BP BP Pulse Ox 08/15/19 12:27 99.1 F 84 16 109/69 99 08/15/19 05:00 99.1 F 86 16 115/68 99 08/15/19 03:30 98.7 F 89 18 109/68 98 08/15/19 02:12 98.8 F 92 18 109/67 98 08/15/19 01:42 99.0 F 83 18 99/62 97 08/15/19 01:32 98.7 F 82 18 106/65 96 08/15/19 01:04 98.9 F 94 16 105/66 08/14/19 22:13 99.8 F H 89 18 100/61 08/14/19 21:43 99.7 F H 87 18 106/64 97 08/14/19 21:33 100.0 F H 86 18 105/62 08/14/19 21:16 98.8 F 95 18 119/71 99 Intake and Output 08/15/19 08/15/19 08/15/19 06:59 14:59 22:59 Intake Total 1154 100 Balance 1154 100 Intake: Intake, IV Titration 100 100 Amount Cefepime 2 gm In Sodium 100 100 Chloride 0.9% 100 ml @ 200 mls/hr IVPB Q8H [facility] Rx#:[id number] Blood Product 1054 Platelet Irr Pheresis 2 217 Acda Unit [id number] Rc Irr As3 Unit 310 [id number] Other: Voiding Method Urinal Weight 84.368 kg In general patient is alert and oriented 3 in no apparent distress HEENT head normocephalic and atraumatic Neck is supple no JVD no goiter no lymphadenopathy Chest exam reveals a few scattered crackles no wheezing Cardiac exam reveals regular heart sounds no gallops no murmurs Abdomen is soft nontender no organomegaly with normal bowel sounds Extremity exam reveals no edema no cyanosis or clubbing Skin examination reveals no open ulcers or evidence of cellulitis Neurological examination reveals no gross focal deficit Results CBC & Chem 7: 08/15/19 07:11 08/15/19 07:11 Labs: Abnormal Lab Results - Last 24 Hours (Table) 08/14/19 08/14/19 08/14/19 Range/Units 16:56 17:25 17:25 WBC 0.3 L* (3.8-10.6) k/uL RBC 2.20 L (4.30-5.90) m/uL Hgb 6.0 L* D (13.0-17.5) gm/dL Hct 17.8 L* (39.0-53.0) % RDW 16.8 H (11.5-15.5) % Plt Count 5 L* D (150-450) k/uL Creatinine 0.61 L (0.66-1.25) mg/dL POC Glucose (mg/dL) 103 H (75-99) mg/dL AST 13 L (17-59) U/L Total Protein 6.2 L (6.3-8.2) g/dL Urine Ketones (Negative) Crossmatch 08/14/19 08/14/19 08/14/19 Range/Units 17:25 19:48 20:33 WBC (3.8-10.6) k/uL RBC (4.30-5.90) m/uL Hgb (13.0-17.5) gm/dL Hct (39.0-53.0) % RDW (11.5-15.5) % Plt Count (150-450) k/uL Creatinine (0.66-1.25) mg/dL POC Glucose (mg/dL) 104 H (75-99) mg/dL AST (17-59) U/L Total Protein (6.3-8.2) g/dL Urine Ketones Trace H (Negative) Crossmatch See Detail 08/15/19 08/15/19 08/15/19 Range/Units 07:06 07:11 07:11 WBC 0.4 L* (3.8-10.6) k/uL RBC 2.53 L (4.30-5.90) m/uL Hgb 7.2 L (13.0-17.5) gm/dL Hct 20.8 L (39.0-53.0) % RDW 16.5 H (11.5-15.5) % Plt Count 10 L* D (150-450) k/uL Creatinine 0.57 L (0.66-1.25) mg/dL POC Glucose (mg/dL) 109 H (75-99) mg/dL AST 12 L (17-59) U/L Total Protein 6.2 L (6.3-8.2) g/dL Urine Ketones (Negative) Crossmatch Thrombosis Risk Factor Assmnt - Choose All That Apply Any of the Below Risk Factors Present?: Yes Each Factor Represents 1 point: Age 41-60 years, Obesity (BMI >25) Other Risk Factors: Yes Each Risk Factor Represents 2 Points: Malignancy Each Risk Factor Represents 3 Points: Family history of DVT/PE Other congenital or acquired thrombophilia - If yes, enter type in comment: No Thrombosis Risk Factor Assessment Total Risk Factor Score: 7 Thrombosis Risk Factor Assessment Level: High Risk Assessment and Plan Plan: #1 shaking chills with neutropenia patient was admitted by oncology blood cultures urine culture and chest x-ray were ordered infectious disease consultation was requested patient was started on empiric antibiotic therapy. #2 known history of acute erythroid leukemia #3 underlying history of diabetes Gabe at this #4 underlying history of hypertension #5 underlying history of depression #6 underlying history of seizure disorder At this time medication and labs were reviewed Oncology and infectious disease consultations initiated Will follow closely
[2019-08-15 17:25] LABS: Glucose,Whole Blood 92 mg/dL (75-99)
[2019-08-15] MEDS: metFORMIN 500 MG TAB PO SCH (17:34)
[2019-08-15 19:31] LABS: Hemoglobin A1C 5.4 % (4.0-6.0)
[2019-08-15] MEDS: METOPROLOL TARTRATE 25 MG TAB PO SCH (20:08)
[2019-08-15] MEDS: VENLAFAXINE HCL ER 150 MG CAP PO SCH (20:08)
[2019-08-15] MEDS: MONTELUKAST 10 MG TAB PO SCH (20:08)
[2019-08-15] MEDS: ZOLPIDEM 5 MG TAB PO PRN (20:11)
[2019-08-15 20:25] LABS: Glucose,Whole Blood 127 mg/dL (75-99)
[2019-08-15] MEDS: ACETAMINOPHEN TAB 500 MG TAB PO PRN (20:44)
--- NOTE | 2019-08-15 22:49 | P.CONS ---
History of Present Illness - Reason for Consult Consult date: 08/15/19 Febrile neutropenia Requesting physician: Veronika Dotson - Chief Complaint Fever and tachycardia x 1 day - History of Present Illness Patient is a 48-year-old male with a past medical history significant for acute erythroid leukemia while the patient is currently on oral chemo patient was evaluated at oncology office yesterday for routine follow-up with the patient was noticed to have a low-grade fever of 99.2 he was mildly tachycardic with concern for probably possible progression into neutropenic fever patient has been admitted directly to the hospital patient on arrival to the hospital initially afebrile subsequently did have low-grade fever 100 Fahrenheit the patient denies having any headache or URI symptoms denies having any chest pain or shortness of breath or cough no nausea vomiting no abdominal pain or diarrhea patient noticed to have a low white count of 0.4 platelet count of 10 creatinine normal electrolytes are normal liver enzymes are normal influenza PCR was negative patient did have a chest x-ray with no cardiopulmonary disease normal heart no change patient has been started on cefepime infectious disease was consulted for concern for neutropenic fever patient did mention overall improvement in his symptomatology since being admit doreen to the hospital Review of Systems Positive point has been mentioned in HPI rest of the systems are negative Past Medical History Past Medical History: Asthma, Cancer, Chest Pain / Angina, Diabetes Mellitus, GERD/Reflux, GI Bleed, Hyperlipidemia, Hypertension, Myocardial Infarction ([place]), Musculoskeletal Disorder, Osteoarthritis (OA), Sleep Apnea/CPAP/BIPAP Additional Past Medical History / Comment(s): 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 Last Myocardial Infarction Date:: 2004 History of Any Multi-Drug Resistant Organisms: None Reported Past Surgical History: Heart Catheterization With Stent, Hernia Repair, Joint Replacement Additional Past Surgical History / Comment(s): Bone marrow aspirations/biopsies, right knee arthroscopy X3, right total knee replacement with revision, left knee arthroscopy, cardiac stent X1, stent placed for kidney stone and then removed, COLONOSCOPY, cervical and lumbar neurostimulator implants, left inguinal hernia repair. Past Anesthesia/Blood Transfusion Reactions: No Reported Reaction Additional Past Anesthesia/Blood Transfusion Reaction / Comm: Pt has received blood/platelets before with no reaction. Date of Last Stent Placement:: 2004 Smoking Status: Current every day smoker - Past Family History Father Family Medical History: Congestive Heart Failure (CHF), Deep Vein Thrombosis (DVT), Myocardial Infarction ([place]), Pulmonary Embolus Additional Family Medical History / Comment(s): [place] at age 38. "hole in colon". Mother Family Medical History: Cancer, COPD, Diabetes Mellitus, Hyperlipidemia Additional Family Medical History / Comment(s): Mother had breast and lung cancer. She of lung cancer in her 60s. Sister(s) Family Medical History: Diabetes Mellitus, Liver Disease Additional Family Medical History / Comment(s): Bi-polar, anxiety, hysterectomy, fatty liver. Brother(s) History Unknown: Yes Medications and Allergies Home Medications Medication Instructions Recorded Confirmed Type Montelukast Sodium [Singulair] 10 mg PO HS 06/01/16 08/14/19 History Albuterol Inhaler [Ventolin Hfa 2 puff INHALATION RT-Q6H PRN 10/15/17 08/14/19 History Inhaler] Beclomethasone Dipropionate [Qvar 2 puff INHALATION RT-BID 10/15/17 08/14/19 History 80 mcg] Divalproex [Depakote] 500 mg PO BID tablet. 01/27/19 08/14/19 Rx metFORMIN HCL [Glucophage] 500 mg PO PC-SUPPER #0 02/19/19 08/14/19 Rx Acyclovir [Zovirax] 400 mg PO BID 04/02/19 08/14/19 History Metoprolol Tartrate [Lopressor] 25 mg PO HS 06/03/19 08/14/19 History Zolpidem [Ambien] 5 mg PO HS PRN #30 tab 06/09/19 08/14/19 Rx Voriconazole 100 mg PO DAILY@1130 06/19/19 08/14/19 History Venlafaxine HCl [Effexor XR] 150 mg PO HS 30 Days #30 tab 07/09/19 08/14/19 Rx HYDROcodone/APAP 10-325MG [[place] 1 tab PO TID PRN 08/08/19 08/14/19 History 10-325] Levofloxacin [Levaquin] 500 mg PO DAILY 08/14/19 08/14/19 History Venetoclax [Venclexta] 400 mg PO AC-SUPPER 08/14/19 08/14/19 History Allergies Allergy/AdvReac Type Severity Reaction Status Date / Time naproxen [From Naprosyn] Allergy Severe Rash/Hives Verified 08/14/19 16:54 vancomycin Allergy Severe Rash/Hives Verified 08/14/19 16:54 adhesive tape Allergy Intermediate Rash/Hives Verified 08/14/19 16:54 ibuprofen Allergy Intermediate Itching Verified 08/14/19 16:54 mold Allergy Unknown Verified 08/14/19 16:54 carrot AdvReac Severe Dyspnea Verified 08/14/19 16:54 chocolate flavor AdvReac Severe Dyspnea Verified 08/14/19 16:54 grass pollen-perennial rye, AdvReac Intermediate Dyspnea Verified 08/14/19 16:54 standar Physical Exam Vitals: Vital Signs Temp Pulse Pulse Resp BP BP Pulse Ox 08/15/19 20:34 100.4 F H 94 16 114/66 99 08/15/19 12:27 99.1 F 84 16 109/69 99 08/15/19 05:00 99.1 F 86 16 115/68 99 08/15/19 03:30 98.7 F 89 18 109/68 98 08/15/19 02:12 98.8 F 92 18 109/67 98 08/15/19 01:42 99.0 F 83 18 99/62 97 08/15/19 01:32 98.7 F 82 18 106/65 96 08/15/19 01:04 98.9 F 94 16 105/66 Intake and Output 08/15/19 08/15/19 08/15/19 06:59 14:59 22:59 Intake Total 1154 100 600 Output Total 1100 Balance 1154 100 -500 Intake: Intake, IV Titration 100 100 Amount Cefepime 2 gm In Sodium 100 100 Chloride 0.9% 100 ml @ 200 mls/hr IVPB Q8H [facility] Rx#:[id number] Oral 600 Blood Product 1054 Platelet Irr Pheresis 2 217 Acda Unit [id number] Rc Irr As3 Unit 310 [id number] Output: Urine 1100 Other: Voiding Method Urinal # Voids 1 Weight 84.368 kg GENERAL DESCRIPTION: Middle-aged male lying in bed, no distress. No tachypnea or accessory muscle of respiration use. HEENT: Shows Pallor , no scleral icterus. Oral mucous membrane is dry. NECK: Trachea central, no thyromegaly. LUNGS: Unlabored breathing. Clear to auscultation anteriorly. No wheeze or crackle. HEART: S1, S2, regular rate and rhythm. ABDOMEN: Soft, no tenderness , guarding or rigidity EXTREMITIES: No edema of feet. SKIN: No rash, no masses palpable. NEUROLOGICAL: The patient is awake, alert, oriented x3, mood and affect normal. Results CBC & Chem 7: 08/15/19 07:11 08/15/19 07:11 Labs: Abnormal Lab Results - Last 24 Hours (Table) 08/14/19 08/15/19 08/15/19 Range/Units 19:48 07:06 07:11 WBC 0.4 L* (3.8-10.6) k/uL RBC 2.53 L (4.30-5.90) m/uL Hgb 7.2 L (13.0-17.5) gm/dL Hct 20.8 L (39.0-53.0) % RDW 16.5 H (11.5-15.5) % Plt Count 10 L* D (150-450) k/uL Creatinine (0.66-1.25) mg/dL POC Glucose (mg/dL) 109 H (75-99) mg/dL AST (17-59) U/L Total Protein (6.3-8.2) g/dL Crossmatch See Detail 08/15/19 08/15/19 Range/Units 07:11 20:16 WBC (3.8-10.6) k/uL RBC (4.30-5.90) m/uL Hgb (13.0-17.5) gm/dL Hct (39.0-53.0) % RDW (11.5-15.5) % Plt Count (150-450) k/uL Creatinine 0.57 L (0.66-1.25) mg/dL POC Glucose (mg/dL) 127 H (75-99) mg/dL AST 12 L (17-59) U/L Total Protein 6.2 L (6.3-8.2) g/dL Crossmatch Microbiology - Last 24 Hours (Table) 08/14/19 17:25 Blood Culture - Preliminary Blood No Growth after 24 hours Assessment and Plan Assessment: patient is 48-year-old male with a past medical history of acute erythroid leukemia this patient is currently on oral chemo and is waiting for bone marrow my to proceed with bone marrow transplant in this patient currently with no obvious focus of infection could related to his underlying hematological malignancy patient currently do not have any respiratory symptoms his pulse ox normal chest x-ray negative making to be less likely COVID-19 infection (1) Febrile neutropenia Current Visit: No Status: Acute Priority: High Code(s): D70.9 - NEUTROPENIA, UNSPECIFIED; R50.81 - FEVER PRESENTING WITH CONDITIONS CLASSIFIED ELSEWHERE SNOMED Code(s): 798919191 Plan: 1-patient to continue cefepime 2 g every 8 hour while waiting for the culture to finalize 2-gentle IV fluid We will follow on clinical condition and cultures to further adjust medication if needed Thank you for this consultation we will follow the patient along with you Time with Patient: Greater than 30
[2019-08-16] MEDS: CEFEPIME 2 GM in SODIUM CHLORIDE 0.9% 100 ML IVPB SCH ×3 (01:43→17:29)
[2019-08-16 07:13] LABS: Glucose,Whole Blood 103 mg/dL (75-99)
[2019-08-16 07:37] LABS: Anisocytosis Slight; HCT 20.3 % (39.0-53.0); HGB 7.1 gm/dL (13.0-17.5); MCH 28.4 pg (25.0-35.0); MCHC 34.9 g/dL (31.0-37.0); MCV 81.3 fL (80.0-100.0); Mean Platelet Volume 7.2; Poikilocytosis Moderate; RDW 16.3 % (11.5-15.5)
[2019-08-16 07:39] LABS: WBC 0.4 k/uL (3.8-10.6)
[2019-08-16 07:40] LABS: Platelet Count 10 k/uL (150-450)
[2019-08-16] MEDS: INSULIN ASPART (NovoLOG) 100 UNIT/ML VIAL SQ SCH ×4 (07:51→20:41)
[2019-08-16] MEDS: ACYCLOVIR 200 MG CAP PO SCH ×2 (08:10→20:00)
[2019-08-16] MEDS: DIVALPROEX 500 MG TABLET.DR PO SCH ×2 (08:10→20:01)
[2019-08-16 08:31] LABS: ALT 11 U/L (4-49); AST 14 U/L (17-59); African American GFR (CKD) >90 (>60 ml/min/1.73 sqM); Albumin 3.6 g/dL (3.5-5.0); Alkaline Phosphatase 68 U/L (38-126); Anion Gap 8 mmol/L; Blood Urea Nitrogen 13 mg/dL (9-20); Calcium 8.5 mg/dL (8.4-10.2); Carbon Dioxide 26 mmol/L (22-30); Chloride 104 mmol/L (98-107); Glucose 92 mg/dL (74-99); Non-African American GFR(CKD) >90 (>60 ml/min/1.73 sqM); Potassium 4.4 mmol/L (3.5-5.1); Sodium 138 mmol/L (137-145); Total Protein 6.3 g/dL (6.3-8.2)
[2019-08-16] MEDS: FLUTICASONE 110 MCG INHALER INHALATION SCH ×2 (11:44→19:47)
[2019-08-16 11:55] LABS: Glucose,Whole Blood 131 mg/dL (75-99)
--- NOTE | 2019-08-16 12:12 | P.PN ---
Subjective Progress Note Date: 08/16/19 Fransisco Burnham is a 48-year-old male who was admitted to [facility] oncology floor directly from the oncology office after presenting with some rigors and having episodes of neutropenia. Patient has a known history of acute erythroid leukemia, he has been receiving chemotherapy on and off. Patient was seen and examined on the medical floor he is alert and oriented 3 in no apparent distress he denies any fever he was having occasional chills otherwise he denies any complaints there was no headache or dizziness no chest pain no shortness of breath no cough no nausea or vomiting no abdominal pain no diarrhea and no burning with urination no frequency or urgency and no hematuria. On 08/16/2019 patient was seen and examined on the oncology floor he is alert and oriented 3 in no apparent distress there is no fever or chills no headache or dizziness no chest pain no shortness of breath no cough no nausea or vomiting no abdominal pain no diarrhea no burning was urination no frequency or urgency and no hematuria. White blood count remains low at 0.4 hemoglobin 7.1 platelet count 10. Oncology and infectious disease are following Objective - Vital Signs Vital signs: Vital Signs Temp 98.9 F 08/16/19 05:00 Pulse 85 08/16/19 05:00 Resp 16 08/16/19 05:00 BP 102/65 08/16/19 05:00 Pulse Ox 98 08/16/19 05:00 Intake & Output 08/15/19 08/16/19 08/16/19 18:59 06:59 18:59 Intake Total 700 Output Total 900 700 Balance -200 -700 Weight 84.368 kg Intake: Intake, IV Titration 100 Amount Cefepime 2 gm In Sodium 100 Chloride 0.9% 100 ml @ 200 mls/hr IVPB Q8H [facility] Rx#:[id number] Oral 600 Output: Urine 900 700 Other: Voiding Method Urinal Toilet # Voids 1 - Exam In general patient is alert and oriented 3 in no apparent distress HEENT head normocephalic and atraumatic Neck is supple no JVD no goiter no lymphadenopathy Chest exam reveals a few scattered crackles no wheezing Cardiac exam reveals regular heart sounds no gallops no murmurs Abdomen is soft nontender no organomegaly with normal bowel sounds Extremity exam reveals no edema no cyanosis or clubbing Skin examination reveals no open ulcers or evidence of cellulitis Neurological examination reveals no gross focal deficit - Labs CBC & Chem 7: 08/16/19 07:06 08/16/19 07:06 Labs: Abnormal Lab Results - Last 24 Hours (Table) 08/15/19 08/16/19 08/16/19 Range/Units 20:16 07:06 07:06 WBC 0.4 L* (3.8-10.6) k/uL RBC 2.50 L (4.30-5.90) m/uL Hgb 7.1 L (13.0-17.5) gm/dL Hct 20.3 L (39.0-53.0) % RDW 16.3 H (11.5-15.5) % Plt Count 10 L* (150-450) k/uL Creatinine 0.51 L (0.66-1.25) mg/dL POC Glucose (mg/dL) 127 H (75-99) mg/dL AST 14 L (17-59) U/L 08/16/19 08/16/19 Range/Units 07:12 11:54 WBC (3.8-10.6) k/uL RBC (4.30-5.90) m/uL Hgb (13.0-17.5) gm/dL Hct (39.0-53.0) % RDW (11.5-15.5) % Plt Count (150-450) k/uL Creatinine (0.66-1.25) mg/dL POC Glucose (mg/dL) 103 H 131 H (75-99) mg/dL AST (17-59) U/L Microbiology - Last 24 Hours (Table) 08/14/19 17:25 Blood Culture - Preliminary Blood No Growth after 24 hours Assessment and Plan Plan: #1 shaking chills with neutropenia patient was admitted by oncology blood cultures urine culture and chest x-ray were ordered infectious disease consultation was requested patient was started on empiric antibiotic therapy. #2 known history of acute erythroid leukemia #3 underlying history of diabetes Gabe at this #4 underlying history of hypertension #5 underlying history of depression #6 underlying history of seizure disorder At this time medication and labs were reviewed Oncology and infectious disease consultations initiated Will follow closely
[2019-08-16] MEDS: VORICONAZOLE 200 MG TAB PO SCH (12:36)
[2019-08-16 17:19] LABS: Glucose,Whole Blood 112 mg/dL (75-99)
[2019-08-16] MEDS: metFORMIN 500 MG TAB PO SCH (17:29)
--- NOTE | 2019-08-16 18:27 | PN ---
PROGRESS NOTE DATE OF SERVICE: 08/16/2019 REASON FOR FOLLOWUP VISIT: Febrile neutropenia. INTERVAL HISTORY: The patient did spike a low-grade fever last night of 100.4 degrees Fahrenheit. The patient is afebrile. Since then, the patient has been breathing comfortably. Denies significant headache or URI symptoms. No chest pain, shortness of breath or cough. No abdominal pain. No diarrhea. PHYSICAL EXAMINATION: Blood pressure 113/59, pulse 85, temperature 98.6. He is 100% on room air. General description is a middle aged male lying in bed in no distress. Respiratory system: Unlabored breathing, clear to auscultation anteriorly. Heart S1, S2 regular rate and rhythm. Abdomen: Soft, no tenderness. LABS: Hemoglobin 7.1 with white count . Blood culture has been negative so far. DIAGNOSTIC IMPRESSION AND PLAN: Patient with febrile neutropenia in this patient who did have a leukemia on oral chemo. The patient currently no obvious focus of infection with no evidence of any respiratory symptoms and a normal chest x-ray making it to be less likely pneumonia or Covid-19 infection. Patient on Cefepime to continue and we will monitor clinical course closely. MMODL / IJN: [id number] /
[2019-08-16] MEDS: MONTELUKAST 10 MG TAB PO SCH (20:01)
[2019-08-16] MEDS: METOPROLOL TARTRATE 25 MG TAB PO SCH (20:01)
[2019-08-16] MEDS: VENLAFAXINE HCL ER 150 MG CAP PO SCH (20:01)
[2019-08-16 20:24] LABS: Glucose,Whole Blood 161 mg/dL (75-99)
[2019-08-16] MEDS: ZOLPIDEM 5 MG TAB PO PRN (21:28)
[2019-08-17] MEDS: CEFEPIME 2 GM in SODIUM CHLORIDE 0.9% 100 ML IVPB SCH ×3 (01:38→19:14)
[2019-08-17 06:00] LABS: Anisocytosis Slight; HCT 21.4 % (39.0-53.0); HGB 7.4 gm/dL (13.0-17.5); MCH 28.4 pg (25.0-35.0); MCHC 34.6 g/dL (31.0-37.0); MCV 82.1 fL (80.0-100.0); Mean Platelet Volume 7.2; Poikilocytosis Slight; RBC 2.61 m/uL (4.30-5.90); RDW 16.4 % (11.5-15.5)
[2019-08-17 06:23] LABS: Platelet Count 6 k/uL (150-450); WBC 0.6 k/uL (3.8-10.6)
[2019-08-17 06:47] LABS: ALT 14 U/L (4-49); AST 16 U/L (17-59); African American GFR (CKD) >90 (>60 ml/min/1.73 sqM); Albumin 3.6 g/dL (3.5-5.0); Alkaline Phosphatase 66 U/L (38-126); Anion Gap 9 mmol/L; Blood Urea Nitrogen 12 mg/dL (9-20); Calcium 8.5 mg/dL (8.4-10.2); Carbon Dioxide 25 mmol/L (22-30); Chloride 103 mmol/L (98-107); Glucose 94 mg/dL (74-99); Non-African American GFR(CKD) >90 (>60 ml/min/1.73 sqM); Potassium 4.5 mmol/L (3.5-5.1); Sodium 137 mmol/L (137-145); Total Bilirubin 0.8 mg/dL (0.2-1.3); Total Protein 6.2 g/dL (6.3-8.2)
[2019-08-17 07:12] LABS: Glucose,Whole Blood 111 mg/dL (75-99)
[2019-08-17] MEDS: FLUTICASONE 110 MCG INHALER INHALATION SCH ×2 (07:40→21:41)
[2019-08-17] MEDS: INSULIN ASPART (NovoLOG) 100 UNIT/ML VIAL SQ SCH ×4 (09:16→22:52)
[2019-08-17] MEDS: DIVALPROEX 500 MG TABLET.DR PO SCH ×2 (09:24→21:33)
[2019-08-17] MEDS: ACYCLOVIR 200 MG CAP PO SCH ×2 (09:24→21:33)
[2019-08-17 11:38] LABS: Glucose,Whole Blood 164 mg/dL (75-99)
[2019-08-17] MEDS: VORICONAZOLE 200 MG TAB PO SCH (12:10)
--- NOTE | 2019-08-17 15:40 | P.PN ---
Subjective Progress Note Date: 08/17/19 Fransisco Burnham is a 48-year-old male who was admitted to [facility] oncology floor directly from the oncology office after presenting with some rigors and having episodes of neutropenia. Patient has a known history of acute erythroid leukemia, he has been receiving chemotherapy on and off. Patient was seen and examined on the medical floor he is alert and oriented 3 in no apparent distress he denies any fever he was having occasional chills otherwise he denies any complaints there was no headache or dizziness no chest pain no shortness of breath no cough no nausea or vomiting no abdominal pain no diarrhea and no burning with urination no frequency or urgency and no hematuria. On 08/16/2019 patient was seen and examined on the oncology floor he is alert and oriented 3 in no apparent distress there is no fever or chills no headache or dizziness no chest pain no shortness of breath no cough no nausea or vomiting no abdominal pain no diarrhea no burning was urination no frequency or urgency and no hematuria. White blood count remains low at 0.4 hemoglobin 7.1 platelet count 10. Oncology and infectious disease are following On 08/17/2019 patient was seen and examined on the oncology floor he is alert and oriented 3 in no apparent distress platelets are down to 6 and platelets transfusion was ordered by oncology there is no fever or chills no headache or dizziness no chest pain no shortness of breath no cough no nausea or vomiting no abdominal pain no diarrhea and no urinary symptoms Objective - Vital Signs Vital signs: Vital Signs Temp 98.2 F 08/17/19 11:57 Pulse 89 08/17/19 11:57 Resp 17 08/17/19 11:57 BP 115/66 08/17/19 11:57 Pulse Ox 99 08/17/19 11:57 Intake & Output 08/16/19 08/17/19 08/17/19 18:59 06:59 18:59 Intake Total 1650 100 Output Total 500 Balance 1650 -400 Intake: Intake, IV Titration 100 100 Amount Cefepime 2 gm In Sodium 100 100 Chloride 0.9% 100 ml @ 200 mls/hr IVPB Q8H [facility] Rx#:[id number] Oral 1550 Output: Urine 500 Other: Voiding Method Toilet Urinal Urinal # Voids 5 800 # Bowel Movements 1 - Exam In general patient is alert and oriented 3 in no apparent distress HEENT head normocephalic and atraumatic Neck is supple no JVD no goiter no lymphadenopathy Chest exam reveals a few scattered crackles no wheezing Cardiac exam reveals regular heart sounds no gallops no murmurs Abdomen is soft nontender no organomegaly with normal bowel sounds Extremity exam reveals no edema no cyanosis or clubbing Skin examination reveals no open ulcers or evidence of cellulitis Neurological examination reveals no gross focal deficit - Labs CBC & Chem 7: 08/17/19 05:29 08/17/19 05:29 Labs: Abnormal Lab Results - Last 24 Hours (Table) 08/16/19 08/16/19 08/17/19 Range/Units 17:17 20:23 05:29 WBC 0.6 L* (3.8-10.6) k/uL RBC 2.61 L (4.30-5.90) m/uL Hgb 7.4 L (13.0-17.5) gm/dL Hct 21.4 L (39.0-53.0) % RDW 16.4 H (11.5-15.5) % Plt Count 6 L* (150-450) k/uL Creatinine (0.66-1.25) mg/dL POC Glucose (mg/dL) 112 H 161 H (75-99) mg/dL AST (17-59) U/L Total Protein (6.3-8.2) g/dL 08/17/19 08/17/19 08/17/19 Range/Units 05:29 07:08 11:37 WBC (3.8-10.6) k/uL RBC (4.30-5.90) m/uL Hgb (13.0-17.5) gm/dL Hct (39.0-53.0) % RDW (11.5-15.5) % Plt Count (150-450) k/uL Creatinine 0.59 L (0.66-1.25) mg/dL POC Glucose (mg/dL) 111 H 164 H (75-99) mg/dL AST 16 L (17-59) U/L Total Protein 6.2 L (6.3-8.2) g/dL Microbiology - Last 24 Hours (Table) 08/14/19 17:25 Blood Culture - Preliminary Blood No Growth after 48 hours Assessment and Plan Plan: #1 shaking chills with neutropenia patient was admitted by oncology blood cultures urine culture and chest x-ray were ordered infectious disease consultation was requested patient was started on empiric antibiotic therapy. #2 known history of acute erythroid leukemia #3 underlying history of diabetes Gabe at this #4 underlying history of hypertension #5 underlying history of depression #6 underlying history of seizure disorder At this time medication and labs were reviewed Oncology and infectious disease consultations initiated Will follow closely
[2019-08-17 17:08] LABS: Glucose,Whole Blood 108 mg/dL (75-99)
[2019-08-17] MEDS: metFORMIN 500 MG TAB PO SCH (17:33)
[2019-08-17] MEDS: ACETAMINOPHEN TAB 500 MG TAB PO PRN (18:29)
[2019-08-17 20:31] LABS: Glucose,Whole Blood 127 mg/dL (75-99)
--- NOTE | 2019-08-17 20:53 | PN ---
PROGRESS NOTE DATE OF SERVICE: 08/17/2019 REASON FOR FOLLOWUP: Febrile neutropenia. INTERVAL HISTORY: The patient did have a low-grade fever this evening while the patient was receiving platelet transfusion. He denies any headache. No URI symptoms. No chest pain, shortness of breath. No cough. No abdominal pain. No diarrhea. PHYSICAL EXAMINATION: Blood pressure 109/63 with a temperature 98.6. He is 100% on room air. General description is a middle-aged male lying in bed in no distress. Respiratory system: Unlabored breathing with decreased breath sounds in the bases. No wheeze. Heart S1, S2. Regular rate and rhythm. Abdomen soft, no tenderness. LABS: Hemoglobin 7.4, white count 0.6, platelet count is 6, creatinine 0.57. Blood cultures have been negative so far. 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 Clinically no evidence of any infection. Clinically doubt Covid-19 infection in this patient with no respiratory symptoms. Negative chest x-ray. Currently covered with cefepime. To continue and monitor his clinical course closely. MMODL / IJN: [id number] /
[2019-08-17] MEDS: HYDROcodone/APAP 10-325MG 1 EACH TAB PO PRN (21:31)
[2019-08-17] MEDS: MONTELUKAST 10 MG TAB PO SCH (21:32)
[2019-08-17] MEDS: VENLAFAXINE HCL ER 150 MG CAP PO SCH (21:33)
[2019-08-17] MEDS: METOPROLOL TARTRATE 25 MG TAB PO SCH (21:33)
[2019-08-17] MEDS: ZOLPIDEM 5 MG TAB PO PRN (21:43)
[2019-08-17] MEDS: SODIUM CHLORIDE 0.9% 1,000 ML IV SCH (22:52)
[2019-08-18] MEDS: CEFEPIME 2 GM in SODIUM CHLORIDE 0.9% 100 ML IVPB SCH ×3 (02:55→19:21)
[2019-08-18] MEDS: SODIUM CHLORIDE 0.9% 1,000 ML IV SCH ×2 (06:26→12:23)
[2019-08-18 07:09] LABS: Glucose,Whole Blood 105 mg/dL (75-99)
[2019-08-18] MEDS: FLUTICASONE 110 MCG INHALER INHALATION SCH ×2 (07:16→19:38)
[2019-08-18] MEDS: INSULIN ASPART (NovoLOG) 100 UNIT/ML VIAL SQ SCH ×4 (07:21→20:45)
[2019-08-18 07:53] LABS: Anisocytosis Slight; MCH 28.1 pg (25.0-35.0); MCHC 34.4 g/dL (31.0-37.0); MCV 81.6 fL (80.0-100.0); Mean Platelet Volume 7.5; Poikilocytosis Moderate; RBC 2.29 m/uL (4.30-5.90); RDW 16.6 % (11.5-15.5)
[2019-08-18 07:57] LABS: WBC 0.6 k/uL (3.8-10.6)
[2019-08-18 07:58] LABS: HCT 18.7 % (39.0-53.0)
[2019-08-18 07:58] LABS: ALT 17 U/L (4-49); AST 18 U/L (17-59); African American GFR (CKD) >90 (>60 ml/min/1.73 sqM); Albumin 3.4 g/dL (3.5-5.0); Alkaline Phosphatase 62 U/L (38-126); Anion Gap 6 mmol/L; Blood Urea Nitrogen 11 mg/dL (9-20); Carbon Dioxide 27 mmol/L (22-30); Chloride 103 mmol/L (98-107); Glucose 84 mg/dL (74-99); Non-African American GFR(CKD) >90 (>60 ml/min/1.73 sqM); Potassium 4.2 mmol/L (3.5-5.1); Sodium 136 mmol/L (137-145); Total Bilirubin 0.6 mg/dL (0.2-1.3); Total Protein 6.1 g/dL (6.3-8.2)
[2019-08-18 08:02] LABS: HGB 6.4 gm/dL (13.0-17.5)
[2019-08-18 08:21] LABS: Platelet Count 8 k/uL (150-450)
[2019-08-18] MEDS: ACYCLOVIR 200 MG CAP PO SCH ×2 (08:28→20:46)
[2019-08-18] MEDS: DIVALPROEX 500 MG TABLET.DR PO SCH ×2 (08:28→20:46)
[2019-08-18 11:42] LABS: Glucose,Whole Blood 138 mg/dL (75-99)
[2019-08-18] MEDS: VORICONAZOLE 200 MG TAB PO SCH (12:21)
--- NOTE | 2019-08-18 13:25 | P.PN ---
Subjective Progress Note Date: 08/18/19 Fransisco Burnham is a 48-year-old male who was admitted to [facility] oncology floor directly from the oncology office after presenting with some rigors and having episodes of neutropenia. Patient has a known history of acute erythroid leukemia, he has been receiving chemotherapy on and off. Patient was seen and examined on the medical floor he is alert and oriented 3 in no apparent distress he denies any fever he was having occasional chills otherwise he denies any complaints there was no headache or dizziness no chest pain no shortness of breath no cough no nausea or vomiting no abdominal pain no diarrhea and no burning with urination no frequency or urgency and no hematuria. On 08/16/2019 patient was seen and examined on the oncology floor he is alert and oriented 3 in no apparent distress there is no fever or chills no headache or dizziness no chest pain no shortness of breath no cough no nausea or vomiting no abdominal pain no diarrhea no burning was urination no frequency or urgency and no hematuria. White blood count remains low at 0.4 hemoglobin 7.1 platelet count 10. Oncology and infectious disease are following On 08/17/2019 patient was seen and examined on the oncology floor he is alert and oriented 3 in no apparent distress platelets are down to 6 and platelets transfusion was ordered by oncology there is no fever or chills no headache or dizziness no chest pain no shortness of breath no cough no nausea or vomiting no abdominal pain no diarrhea and no urinary symptoms. On 08/18/2019 Patient is stable there is no fever or chills no headache or di zziness no chest pain no shortness of breath no cough no nausea or vomiting no abdominal pain no diarrhea and no urinary symptoms Objective - Vital Signs Vital signs: Vital Signs Temp 98.8 F 08/18/19 11:54 Pulse 91 08/18/19 11:54 Resp 17 08/18/19 11:54 BP 111/58 08/18/19 11:54 Pulse Ox 100 08/18/19 11:54 Intake & Output 08/17/19 08/18/19 08/18/19 18:59 06:59 18:59 Intake Total 325 1130 Output Total 500 900 Balance -175 230 Intake: IV 300 Sodium Chloride 0.9% 1, 300 000 ml @ 100 mls/hr IV . Q10H [facility] Rx#:[id number] Intake, IV Titration 100 Amount Cefepime 2 gm In Sodium 100 Chloride 0.9% 100 ml @ 200 mls/hr IVPB Q8H [facility] Rx#:[id number] Oral 830 Blood Product 225 Platelet Irr Pheresis 225 Acda1 Unit [id number] Output: Urine 500 900 Other: Voiding Method Urinal Urinal Urinal - Exam In general patient is alert and oriented 3 in no apparent distress HEENT head normocephalic and atraumatic Neck is supple no JVD no goiter no lymphadenopathy Chest exam reveals a few scattered crackles no wheezing Cardiac exam reveals regular heart sounds no gallops no murmurs Abdomen is soft nontender no organomegaly with normal bowel sounds Extremity exam reveals no edema no cyanosis or clubbing Skin examination reveals no open ulcers or evidence of cellulitis Neurological examination reveals no gross focal deficit - Labs CBC & Chem 7: 08/18/19 07:28 08/18/19 07:26 Labs: Abnormal Lab Results - Last 24 Hours (Table) 08/17/19 08/17/19 08/18/19 Range/Units 17:06 20:30 07:07 WBC (3.8-10.6) k/uL RBC (4.30-5.90) m/uL Hgb (13.0-17.5) gm/dL Hct (39.0-53.0) % RDW (11.5-15.5) % Plt Count (150-450) k/uL Sodium (137-145) mmol/L Creatinine (0.66-1.25) mg/dL POC Glucose (mg/dL) 108 H 127 H 105 H (75-99) mg/dL Calcium (8.4-10.2) mg/dL Total Protein (6.3-8.2) g/dL Albumin (3.5-5.0) g/dL Crossmatch 08/18/19 08/18/19 08/18/19 Range/Units 07:26 07:28 09:44 WBC 0.6 L* (3.8-10.6) k/uL RBC 2.29 L (4.30-5.90) m/uL Hgb 6.4 L* (13.0-17.5) gm/dL Hct 18.7 L* (39.0-53.0) % RDW 16.6 H (11.5-15.5) % Plt Count 8 L* (150-450) k/uL Sodium 136 L (137-145) mmol/L Creatinine 0.51 L (0.66-1.25) mg/dL POC Glucose (mg/dL) (75-99) mg/dL Calcium 8.0 L (8.4-10.2) mg/dL Total Protein 6.1 L (6.3-8.2) g/dL Albumin 3.4 L (3.5-5.0) g/dL Crossmatch See Detail 08/18/19 Range/Units 11:40 WBC (3.8-10.6) k/uL RBC (4.30-5.90) m/uL Hgb (13.0-17.5) gm/dL Hct (39.0-53.0) % RDW (11.5-15.5) % Plt Count (150-450) k/uL Sodium (137-145) mmol/L Creatinine (0.66-1.25) mg/dL POC Glucose (mg/dL) 138 H (75-99) mg/dL Calcium (8.4-10.2) mg/dL Total Protein (6.3-8.2) g/dL Albumin (3.5-5.0) g/dL Crossmatch Microbiology - Last 24 Hours (Table) 08/14/19 17:25 Blood Culture - Preliminary Blood No Growth after 72 hours Assessment and Plan Plan: #1 shaking chills with neutropenia patient was admitted by oncology blood cultures urine culture and chest x-ray were ordered infectious disease consultation was requested patient was started on empiric antibiotic therapy. 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
[2019-08-18] MEDS ORDERED: ACETAMINOPHEN TAB 325 MG TAB PO STA (14:08)
[2019-08-18] MEDS ORDERED: diphenhydrAMINE 25 MG CAP PO STA (14:08)
[2019-08-18 16:55] LABS: Glucose,Whole Blood 113 mg/dL (75-99)
[2019-08-18] MEDS: metFORMIN 500 MG TAB PO SCH (18:37)
[2019-08-18] MEDS: ACETAMINOPHEN TAB 500 MG TAB PO PRN (19:20)
--- NOTE | 2019-08-18 19:35 | PN ---
PROGRESS NOTE DATE OF SERVICE: 08/18/2019. REASON FOR FOLLOWUP: Febrile neutropenia. INTERVAL HISTORY: The patient is currently afebrile. The patient has been breathing comfortably. The patient denies having any chest pain. No shortness of breath. No cough. No nausea. No vomiting. No abdominal pain. No diarrhea. PHYSICAL EXAMINATION: Blood pressure 117/58 with a pulse of 90 with temperature of 98.2. He is 98% on room air. General description is a middle-aged male lying in bed in no distress. RESPIRATORY SYSTEM: Unlabored breathing. Clear to auscultation anteriorly. HEART: S1, S2. Regular rate and rhythm. ABDOMEN: Soft. No tenderness. LABS: Hemoglobin is 6.4, white count is 0.6. Creatinine 0.51. 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 The patient had fever last night during the platelet transfusion. Clinically does not look toxic and no obvious focus of infection. He is currently on empiric cefepime, to continue and monitor his clinical course closely. MMODL / IJN: [id number] /
[2019-08-18 20:13] LABS: Glucose,Whole Blood 141 mg/dL (75-99)
[2019-08-18] MEDS: METOPROLOL TARTRATE 25 MG TAB PO SCH (20:46)
[2019-08-18] MEDS: VENLAFAXINE HCL ER 150 MG CAP PO SCH (20:46)
[2019-08-18] MEDS: MONTELUKAST 10 MG TAB PO SCH (20:46)
[2019-08-18] MEDS: ZOLPIDEM 5 MG TAB PO PRN (22:30)
[2019-08-18] MEDS: HYDROcodone/APAP 10-325MG 1 EACH TAB PO PRN (22:30)
--- NOTE | 2019-08-18 23:52 | P.CONS ---
History of Present Illness - Reason for Consult Consult date: 08/18/19 - History of Present Illness The pt is a 48-year-old male patient of Dr. Saleh with a history of pancytopenia first noted 02/13. Thought initially that it this was due to marrow suppressing medications. His drugs doses were adjusted and patient was provided with rescue leucovorin but, counts did not improve. Pt had a repeat admission in late 02/13 with persistently low counts and abdominal pain. Bone marrow biopsy on 02/19/19 was performed by IR as it had to be done under guidance as the patient has bilateral spinal cord centimeters over each and iliac crests. Path showed increase in erythroid elements with pronormoblast greater than 50%, consistent with acute erythroid leukemia. He had induction with the 7+ 3 regimen from 03/03-03/10/19. Post induction was complicated by an admission for febrile neutropenia. He had repeat bone marrow post count recovery, showing 1-2 % blasts, but persistence of about 90% erythroid elements, 70-80% of the early phase type. Was seen at [facility], and was felt to have failed induction, though surprisingly, his counts had shown marked improvement. He was recommended treatment with Venetoclax/Vidaza preparatory to allo BMT The patient had another bone marrow aspiration biopsy to assess response at the end up 06/16. This unfortunately did not show any significant response. Case was discussed with [facility] who discussed the same at the [facility]. It was recommended that the patient continue on the same regimen. The patient has continued on the same, with frequent blood checks and transfusions as needed. He has also had recurrent admissions for febrile neutropenia, without any cultures positive. The patient was admitted this time with persistent, severe pancytopenia. He is complaining of somewhat increased weakness, as well as chills and rigors. Did not have a specific fever. However due to his significantly immunocompromise state it was decided to admit him, with cultures and antibiotic. The patient did subsequently spike a temperature, most prominently yesterday after platelet transfusion. Consult was therefore placed for further evaluation and recommendations The patient denied any localizing signs such as cough, mouth sores, diarrhea, urinary complaints or abdominal pains. Review of Systems Constitutional: Reports chills, Reports chronic pain, Reports fever, Reports weakness Eyes: denies blurred vision, denies pain Ears: deny: decreased hearing, ear discharge, earache, tinnitus Ears, nose, mouth and throat: Denies headache, Denies sore throat Cardiovascular: Reports decreased exercise tolerance Respiratory: Denies cough Gastrointestinal: Denies abdominal pain, Denies diarrhea, Denies nausea, Denies vomiting Genitourinary: Reports as per HPI Musculoskeletal: Reports muscle weakness Integumentary: Denies pruritus, Denies rash Neurological: Reports weakness Psychiatric: Reports anxiety, Reports depression Endocrine: Reports fatigue Hematologic/Lymphatic: Reports as per HPI Past Medical History Past Medical History: Asthma, Cancer, Chest Pain / Angina, Diabetes Mellitus, GERD/Reflux, GI Bleed, Hyperlipidemia, Hypertension, Myocardial Infarction ([place]), Musculoskeletal Disorder, Osteoarthritis (OA), Sleep Apnea/CPAP/BIPAP Additional Past Medical History / Comment(s): 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 Last Myocardial Infarction Date:: 2004 History of Any Multi-Drug Resistant Organisms: None Reported Past Surgical History: Heart Catheterization With Stent, Hernia Repair, Joint Replacement Additional Past Surgical History / Comment(s): Bone marrow aspirations/biopsies, right knee arthroscopy X3, right total knee replacement with revision, left knee arthroscopy, cardiac stent X1, stent placed for kidney stone and then removed, COLONOSCOPY, cervical and lumbar neurostimulator implants, left inguinal hernia repair. Past Anesthesia/Blood Transfusion Reactions: No Reported Reaction Additional Past Anesthesia/Blood Transfusion Reaction / Comm: Pt has received blood/platelets before with no reaction. Date of Last Stent Placement:: 2004 Smoking Status: Current every day smoker - Past Family History Father Family Medical History: Congestive Heart Failure (CHF), Deep Vein Thrombosis (DVT), Myocardial Infarction ([place]), Pulmonary Embolus Additional Family Medical History / Comment(s): IN at age 38. "hole in colon". Mother Family Medical History: Cancer, COPD, Diabetes Mellitus, Hyperlipidemia Additional Family Medical History / Comment(s): Mother had breast and lung cancer. She of lung cancer in her 60s. Sister(s) Family Medical History: Diabetes Mellitus, Liver Disease Additional Family Medical History / Comment(s): Bi-polar, anxiety, hysterectomy, fatty liver. Brother(s) History Unknown: Yes Medications and Allergies Home Medications Medication Instructions Recorded Confirmed Type Montelukast Sodium [Singulair] 10 mg PO HS 06/01/16 08/14/19 History Albuterol Inhaler [Ventolin Hfa 2 puff INHALATION RT-Q6H PRN 10/15/17 08/14/19 History Inhaler] Beclomethasone Dipropionate [Qvar 2 puff INHALATION RT-BID 10/15/17 08/14/19 History 80 mcg] Divalproex [Depakote] 500 mg PO BID tablet. 01/27/19 08/14/19 Rx metFORMIN HCL [Glucophage] 500 mg PO PC-SUPPER #0 02/19/19 08/14/19 Rx Acyclovir [Zovirax] 400 mg PO BID 04/02/19 08/14/19 History Metoprolol Tartrate [Lopressor] 25 mg PO HS 06/03/19 08/14/19 History Zolpidem [Ambien] 5 mg PO HS PRN #30 tab 06/09/19 08/14/19 Rx Voriconazole 100 mg PO DAILY@1130 06/19/19 08/14/19 History Venlafaxine HCl [Effexor XR] 150 mg PO HS 30 Days #30 tab 07/09/19 08/14/19 Rx HYDROcodone/APAP 10-325MG [[place] 1 tab PO TID PRN 08/08/19 08/14/19 History 10-325] Levofloxacin [Levaquin] 500 mg PO DAILY 08/14/19 08/14/19 History Venetoclax [Venclexta] 400 mg PO AC-SUPPER 08/14/19 08/14/19 History Allergies Allergy/AdvReac Type Severity Reaction Status Date / Time naproxen [From Naprosyn] Allergy Severe Rash/Hives Verified 08/14/19 16:54 vancomycin Allergy Severe Rash/Hives Verified 08/14/19 16:54 adhesive tape Allergy Intermediate Rash/Hives Verified 08/14/19 16:54 ibuprofen Allergy Intermediate Itching Verified 08/14/19 16:54 mold Allergy Unknown Verified 08/14/19 16:54 carrot AdvReac Severe Dyspnea Verified 08/14/19 16:54 chocolate flavor AdvReac Severe Dyspnea Verified 08/14/19 16:54 grass pollen-perennial rye, AdvReac Intermediate Dyspnea Verified 08/14/19 16:54 standar Physical Exam Vitals: Vital Signs Temp Pulse Pulse Resp BP BP Pulse Ox 08/18/19 20:43 100.2 F H 100 16 114/58 98 08/18/19 19:15 101 F H 95 18 126/61 100 08/18/19 17:47 98.9 F 87 14 122/62 100 08/18/19 17:17 98.9 F 87 14 126/58 100 08/18/19 17:07 99 F 89 14 116/58 100 08/18/19 16:20 98.6 F 87 14 120/57 98 08/18/19 15:17 99.2 F 92 14 117/58 98 08/18/19 14:47 99.1 F 93 16 121/56 97 08/18/19 14:37 99 F 93 14 119/60 100 08/18/19 11:54 98.8 F 91 17 111/58 100 08/18/19 11:14 86 08/18/19 05:00 98.8 F 91 16 111/57 98 Intake and Output 08/18/19 08/18/19 08/19/19 14:59 22:59 06:59 Intake Total 0 824 Output Total 1000 300 Balance -1000 524 Intake: IV 300 Sodium Chloride 0.9% 1, 300 000 ml @ 100 mls/hr IV . Q10H [facility] Rx#:[id number] Blood Product 0 524 Platelet Irr Pheresis 0 214 Acda1 Unit [id number] Rc Pheresis Irrad As 3 310 Unit [id number] Output: Urine 1000 300 Other: Voiding Method Urinal Urinal # Voids 4 - Constitutional General appearance: no acute distress - EENT Eyes: EOMI, PERRLA ENT: hearing grossly normal, normal oropharynx - Neck Neck: no lymphadenopathy Thyroid: bilateral: normal size - Respiratory Respiratory: bilateral: CTA - Cardiovascular Rhythm: regular Heart sounds: normal: S1, S2 - Gastrointestinal General gastrointestinal: normal bowel sounds, soft - Integumentary Integumentary: normal - Neurologic Neurologic: CNII-XII intact - Musculoskeletal Musculoskeletal: generalized weakness, strength equal bilaterally - Psychiatric Psychiatric: A&O x's 3, appropriate affect Results CBC & Chem 7: 08/18/19 07:28 08/18/19 07:26 Labs: Abnormal Lab Results - Last 24 Hours (Table) 08/18/19 08/18/19 08/18/19 Range/Units 07:07 07:26 07:28 WBC 0.6 L* (3.8-10.6) k/uL RBC 2.29 L (4.30-5.90) m/uL Hgb 6.4 L* (13.0-17.5) gm/dL Hct 18.7 L* (39.0-53.0) % RDW 16.6 H (11.5-15.5) % Plt Count 8 L* (150-450) k/uL Sodium 136 L (137-145) mmol/L Creatinine 0.51 L (0.66-1.25) mg/dL POC Glucose (mg/dL) 105 H (75-99) mg/dL Calcium 8.0 L (8.4-10.2) mg/dL Total Protein 6.1 L (6.3-8.2) g/dL Albumin 3.4 L (3.5-5.0) g/dL Crossmatch 08/18/19 08/18/19 08/18/19 Range/Units 09:44 11:40 16:54 WBC (3.8-10.6) k/uL RBC (4.30-5.90) m/uL Hgb (13.0-17.5) gm/dL Hct (39.0-53.0) % RDW (11.5-15.5) % Plt Count (150-450) k/uL Sodium (137-145) mmol/L Creatinine (0.66-1.25) mg/dL POC Glucose (mg/dL) 138 H 113 H (75-99) mg/dL Calcium (8.4-10.2) mg/dL Total Protein (6.3-8.2) g/dL Albumin (3.5-5.0) g/dL Crossmatch See Detail 08/18/19 Range/Units 20:12 WBC (3.8-10.6) k/uL RBC (4.30-5.90) m/uL Hgb (13.0-17.5) gm/dL Hct (39.0-53.0) % RDW (11.5-15.5) % Plt Count (150-450) k/uL Sodium (137-145) mmol/L Creatinine (0.66-1.25) mg/dL POC Glucose (mg/dL) 141 H (75-99) mg/dL Calcium (8.4-10.2) mg/dL Total Protein (6.3-8.2) g/dL Albumin (3.5-5.0) g/dL Crossmatch Microbiology - Last 24 Hours (Table) 08/14/19 17:25 Blood Culture - Preliminary Blood No Growth after 96 hours Chest x-ray: report reviewed Assessment and Plan (1) Febrile neutropenia Narrative/Plan: The patient was admitted with severe neutropenia and pancytopenia. At the time of admission did not have overt fever but did have chills and rigors. He subsequently did develop fevers, though the most prominent one, above 101, with after platelet transfusion. The patient continues on IV antibiotics. Cultures have been negative so far, likely previous admissions. He is also on oral antiviral and antifungal prophylaxis. It was discussed with the patient, that it is actually more likely that his fevers are noted related infection, but to underlying active leukemia. Most prominent fever is likely related to transfusion. The patient is feeling well at this time. Therefore if cultures remain negative he can be switched back to oral antibiotic. Current Visit: No Status: Acute Priority: High Code(s): D70.9 - NEUTROPENIA, UNSPECIFIED; R50.81 - FEVER PRESENTING WITH CONDITIONS CLASSIFIED ELSEWHERE SNOMED Code(s): 835363720 (2) Acute erythroid leukemia Narrative/Plan: Therapeutic and diagnostic circumstances so far, as described. The patient is continuing on with Venetoclax and Vidaza. He remains persistently pancytopenic, which unfortunately indicates lack of response. The case was discussed in detail with [facility]. Given his lack of response, which indicates marked residual leukemia in the bone marrow, the patient is felt to be a very poor candidate for a bone marrow transplant with a very high risk of treatment failure. He is therefore not felt to be appropriate for the procedure. Therefore his prognosis is felt to be very guarded. Current regimen is obviously not effective. Therefore options include changing him back to another high-dose chemotherapy induction regimen. Unfortunately with primary refractory leukemia, which has not responded to 2 induction regimen so far, the chances of successful induction would be very low, likely less than 20%. In addition risk of adverse events would be even higher than normal. Given the overall very guarded prognosis, comfort care as an option was also discussed. Prognosis with or without treatment was discussed. The above was discussed in detail with the patient, as well as his sister who is his primary caregiver over the phone. We will discuss the issues further, and then make a decision. If he does decide for active treatment, and we will likely recommend starting induction with high-dose cytarabine inpatient. Current Visit: No Status: Acute Priority: High Code(s): C94.00 - ACUTE ERYTHROID LEUKEMIA, NOT HAVING ACHIEVED REMISSION SNOMED Code(s): 16881314 (3) Pancytopenia Narrative/Plan: Due to underlying, active acute leukemia as well as effect of antineoplastic treatment. At this time continue to transfuse to keep hemoglobin greater than 7 and platelets greater than 10. Based on labs today, 1 unit PRBC, and 1 unit of platelets will be ordered. Current Visit: No Status: Chronic Priority: High Code(s): D61.818 - OTHER PANCYTOPENIA SNOMED Code(s): 217385750
[2019-08-19] MEDS: CEFEPIME 2 GM in SODIUM CHLORIDE 0.9% 100 ML IVPB SCH ×3 (02:09→17:33)
[2019-08-19] MEDS: SODIUM CHLORIDE 0.9% 1,000 ML IV SCH ×3 (02:09→20:44)
[2019-08-19 06:57] LABS: Glucose,Whole Blood 95 mg/dL (75-99)
[2019-08-19] MEDS: FLUTICASONE 110 MCG INHALER INHALATION SCH ×2 (07:07→19:39)
[2019-08-19 07:12] LABS: ALT 17 U/L (4-49); AST 18 U/L (17-59); African American GFR (CKD) >90 (>60 ml/min/1.73 sqM); Albumin 3.4 g/dL (3.5-5.0); Alkaline Phosphatase 62 U/L (38-126); Anion Gap 9 mmol/L; Blood Urea Nitrogen 10 mg/dL (9-20); Calcium 8.4 mg/dL (8.4-10.2); Carbon Dioxide 26 mmol/L (22-30); Chloride 103 mmol/L (98-107); Glucose 89 mg/dL (74-99); Non-African American GFR(CKD) >90 (>60 ml/min/1.73 sqM); Potassium 4.5 mmol/L (3.5-5.1); Sodium 138 mmol/L (137-145); Total Bilirubin 0.8 mg/dL (0.2-1.3); Total Protein 5.9 g/dL (6.3-8.2)
[2019-08-19] MEDS: INSULIN ASPART (NovoLOG) 100 UNIT/ML VIAL SQ SCH ×4 (07:31→20:44)
[2019-08-19 08:11] LABS: Anisocytosis Slight; HCT 21.4 % (39.0-53.0); HGB 7.3 gm/dL (13.0-17.5); MCH 28.3 pg (25.0-35.0); MCHC 34.1 g/dL (31.0-37.0); MCV 82.8 fL (80.0-100.0); Mean Platelet Volume 8.9; Poikilocytosis Slight; RBC 2.58 m/uL (4.30-5.90); RDW 16.6 % (11.5-15.5)
[2019-08-19 08:44] LABS: WBC 0.9 k/uL (3.8-10.6)
[2019-08-19] MEDS: ACYCLOVIR 200 MG CAP PO SCH ×2 (08:45→20:43)
[2019-08-19] MEDS: DIVALPROEX 500 MG TABLET.DR PO SCH ×2 (08:45→20:43)
--- NOTE | 2019-08-19 10:04 | CDI ---
Documentation Clarification Form Date: 08/19/2019 10:00:08 AM From: Susan Baker RN, CCDS Admit Date: 08/14/2019 03:00:00 PM Patient Name: Fransisco Burnham Visit Number: [id number] ATTENTION: The Clinical Documentation Specialists (CDI) and [facility] Coding Staff appreciate your assistance in clarifying documentation. Please respond to the clarification below the line at the bottom and electronically sign. The CDI & [facility] Coding staff will review the response and follow-up if needed. Please note: Queries are made part of the Legal Health Record. If you have any questions, please contact the author of this message via ITS. Dr. Veronika Dotson Patient has increased metabolic needs and is receiving nutritional supplements. Please provide clinical significance. History/Risk Factors: DM, Asthma, GIB, Acute erythroid leukemia, neutropenia, pancytopenia, anemia, colitis Clinical Indicators: 08/13-08/18 Labs: Total Protein: 6.2/6.1/5.9 Albumin: 3.7/3.6/3.4, Pancytopenia with blood and platelet transfusions Current BMI: 28.3 Weight Loss: pt is unsure Nursing Assessments: "Patient has generalized weakness and requires a standby assist. Skin color is Pallor. Treatment: 08/14 1034 Dietary Consult: "Carb modified diet with commercial beverage Glucerna BID for catabolic illness and increased metabolic demands in a patient with acute leukemia, neutropenic, receiving chemo, causing increased need for protein and calories (Summary of documentation)" Supplements: Glucerna BID Lab monitoring: AM Daily In your professional opinion, can you please clarify if these findings signify one of the following conditions? Mild Protein-Calorie Malnutrition Moderate Protein-Calorie Malnutrition Severe Protein-Calorie Malnutrition Other condition, please specify Unable to determine (Last Revision: November 2018) MTDD
[2019-08-19 10:10] LABS: Platelet Count 11 k/uL (150-450)
[2019-08-19 10:36] LABS: Prothrombin Time 10.2 sec (9.0-12.0)
[2019-08-19 11:16] LABS: Glucose,Whole Blood 113 mg/dL (75-99)
[2019-08-19] MEDS ORDERED: LIDOCAINE 1% INJ 10MG/ML (20 ML MDV) ONE (11:30)
[2019-08-19] MEDS ORDERED: LIDOCAINE 1% INJ 10MG/ML (20 ML MDV) SQ ONE ×2 (11:49→12:05)
[2019-08-19] MEDS ORDERED: IOPAMIDOL-370 50ML BTL INJ ONE (12:11)
[2019-08-19] MEDS: HYDROcodone/APAP 10-325MG 1 EACH TAB PO PRN ×2 (12:51→20:43)
--- NOTE | 2019-08-19 13:11 | IR ---
EXAMINATION TYPE: IR cvc insert >=5 years and left upper extremity venogram DATE OF EXAM: 08/19/2019 COMPARISON: NONE CLINICAL HISTORY: infection Needs long-term intravenous access for antibiotics. PROCEDURE: Hand hygiene obtained with alcohol-based hand rub. After informed consent, the skin overlying the left brachial vein was localized with ultrasound and n oted to be compressible and patent. An ultrasound image was obtained and submitted on the patient's chart. The overlying skin was prepped and draped and Lidocaine was used for local anesthesia. A ski n abena was made with a scalpel. Access was gained to the vein under ultrasound guidance with a 21 ga uge needle and a 0.018 inch wire was advanced but could not be advanced centrally. General hand injec tion of contrast material was performed for evaluation of the region of the left subclavian vein. Ba sed on the findings, left upper extremity access was aborted. Using similar technique, the right basi lic vein was evaluated and punctured using standard Seldinger technique. A 0.08 inch wire was advance d centrally through the 21-gauge needle. Access site was dilated with Peel-Away sheath and catheter t ailored to the appropriate length and advanced such that the distal tip is at the cavoatrial junction . Spot image was obtained verifying placement. Catheter was fixed to the skin and a sterile dressin g was placed following hemostasis. Catheter was aspirated and flushed with saline. Patient was disc harged in stable condition without complication.Maximal barrier technique is utilized. Ultrasound im age is documented on the chart. Ultrasound used with sterile technique. FINDINGS: Postprocedural changes noted within the region of the upper thoracic spine, mid thoracic sp ine. Contrast material injected centrally shows a left subclavian vein stenosis at the level of the p atient's junction of the anterior first rib and medial left clavicle. Fluoro time and fluoroscopic images submitted to document procedure: 468 intraoperative images, 1.9 m inutes fluoroscopy time IMPRESSION: STATUS POST ULTRASOUND AND FLUOROSCOPIC GUIDED PICC LINE PLACEMENT, READY FOR USE. THIS PROCEDURE WAS PERFORMED BY THE UNDERSIGNED. Further access to the left upper extremity for PICC line placement is not advised.
[2019-08-19] MEDS: VORICONAZOLE 200 MG TAB PO SCH (14:34)
[2019-08-19 17:13] LABS: Glucose,Whole Blood 84 mg/dL (75-99)
[2019-08-19] MEDS: metFORMIN 500 MG TAB PO SCH (17:33)
--- NOTE | 2019-08-19 17:35 | PN ---
PROGRESS NOTE DATE OF SERVICE: 08/19/2019 REASON FOR FOLLOWUP: Febrile neutropenia. INTERVAL HISTORY: The patient is currently afebrile. Last temperature was last night at 100.2. The patient is breathing comfortably. The patient denies having any chest pain or shortness of breath or cough. No nausea. No vomiting. No abdominal pain. No diarrhea. PHYSICAL EXAMINATION: Blood pressure 120/70 with a pulse of 82. Temperature 98.5. He is 98% on room air. General description is a middle-aged male lying in bed in no distress. RESPIRATORY SYSTEM: Unlabored breathing. Clear to auscultation. HEART: S1, S2. Regular rate and rhythm. ABDOMEN: Soft. No tenderness. LABORATORY DATA: BUN of 10, creatinine 0.54. White count of 0.9. Platelet count is 11. DIAGNOSTIC IMPRESSION AND PLAN: Patient admitted to hospital with fever in this patient who did have erythroid leukemia. Currently with no obvious clinical focus of infection. Culture remains negative. On cefepime; to continue and monitor his clinical course closely. MMODL / IJN: [id number] /
--- NOTE | 2019-08-19 17:42 | P.PN ---
Subjective Progress Note Date: 08/19/19 Fransisco Burnham is a 48-year-old male who was admitted to [facility] oncology floor directly from the oncology office after presenting with some rigors and having episodes of neutropenia. Patient has a known history of acute erythroid leukemia, he has been receiving chemotherapy on and off. Patient was seen and examined on the medical floor he is alert and oriented 3 in no apparent distress he denies any fever he was having occasional chills otherwise he denies any complaints there was no headache or dizziness no chest pain no shortness of breath no cough no nausea or vomiting no abdominal pain no diarrhea and no burning with urination no frequency or urgency and no hematuria. On 08/16/2019 patient was seen and examined on the oncology floor he is alert and oriented 3 in no apparent distress there is no fever or chills no headache or dizziness no chest pain no shortness of breath no cough no nausea or vomiting no abdominal pain no diarrhea no burning was urination no frequency or urgency and no hematuria. White blood count remains low at 0.4 hemoglobin 7.1 platelet count 10. Oncology and infectious disease are following On 08/17/2019 patient was seen and examined on the oncology floor he is alert and oriented 3 in no apparent distress platelets are down to 6 and platelets transfusion was ordered by oncology there is no fever or chills no headache or dizziness no chest pain no shortness of breath no cough no nausea or vomiting no abdominal pain no diarrhea and no urinary symptoms. On 08/18/2019 Patient is stable there is no fever or chills no headache or di zziness no chest pain no shortness of breath no cough no nausea or vomiting no abdominal pain no diarrhea and no urinary symptoms. On 08/19/2019 patient was seen and examined on the medical floor he is alert and oriented 3 in no apparent distress he is still having pancytopenia case was discussed in details today with Dr. Rojas. And at this time he is recommending to restart chemotherapy on patient, patient will have PICC line placed today and will be started on chemotherapy, clinically patient is doing well he is denying any symptoms there is no fever or chills no headache or dizziness no chest pain no shortness of breath no cough no nausea or vomiting no abdominal pain no diarrhea and no urinary symptoms. Objective - Vital Signs Vital signs: Vital Signs Temp 98.5 F 08/19/19 11:53 Pulse 82 08/19/19 11:53 Resp 16 08/19/19 11:53 BP 120/70 08/19/19 11:53 Pulse Ox 98 08/19/19 11:53 Intake & Output 08/18/19 08/19/19 08/19/19 18:59 06:59 18:59 Intake Total 214 1200 0 Output Total 1000 900 500 Balance -786 300 -500 Intake: IV 300 Sodium Chloride 0.9% 1, 300 000 ml @ 100 mls/hr IV . Q10H [facility] Rx#:[id number] Oral 590 Blood Product 214 310 0 Platelet Irr Pheresis 3 0 Acda Unit [id number] Platelet Irr Pheresis 214 Acda1 Unit [id number] Rc Pheresis Irrad As 3 0 310 Unit [id number] Output: Urine 1000 900 500 Other: Voiding Method Urinal Urinal Urinal # Voids 4 2 - Exam In general patient is alert and oriented 3 in no apparent distress HEENT head normocephalic and atraumatic Neck is supple no JVD no goiter no lymphadenopathy Chest exam reveals a few scattered crackles no wheezing Cardiac exam reveals regular heart sounds no gallops no murmurs Abdomen is soft nontender no organomegaly with normal bowel sounds Extremity exam reveals no edema no cyanosis or clubbing Skin examination reveals no open ulcers or evidence of cellulitis Neurological examination reveals no gross focal deficit - Labs CBC & Chem 7: 08/19/19 06:27 08/19/19 06:27 Labs: Abnormal Lab Results - Last 24 Hours (Table) 08/18/19 08/18/19 08/18/19 Range/Units 09:44 16:54 20:12 WBC (3.8-10.6) k/uL RBC (4.30-5.90) m/uL Hgb (13.0-17.5) gm/dL Hct (39.0-53.0) % RDW (11.5-15.5) % Plt Count (150-450) k/uL Creatinine (0.66-1.25) mg/dL POC Glucose (mg/dL) 113 H 141 H (75-99) mg/dL Total Protein (6.3-8.2) g/dL Albumin (3.5-5.0) g/dL Crossmatch See Detail 08/19/19 08/19/1908/18/20 Range/Units 06:27 06:27 11:13 WBC 0.9 L* (3.8-10.6) k/uL RBC 2.58 L (4.30-5.90) m/uL Hgb 7.3 L (13.0-17.5) gm/dL Hct 21.4 L (39.0-53.0) % RDW 16.6 H (11.5-15.5) % Plt Count 11 L* (150-450) k/uL Creatinine 0.54 L (0.66-1.25) mg/dL POC Glucose (mg/dL) 113 H (75-99) mg/dL Total Protein 5.9 L (6.3-8.2) g/dL Albumin 3.4 L (3.5-5.0) g/dL Crossmatch Microbiology - Last 24 Hours (Table) 08/14/19 17:25 Blood Culture - Preliminary Blood No Growth after 96 hours Assessment and Plan Plan: #1 shaking chills with neutropenia patient was admitted by oncology blood cultures urine culture and chest x-ray were ordered infectious disease consultation was requested patient was started on empiric antibiotic therapy. 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
[2019-08-19 20:16] LABS: Glucose,Whole Blood 128 mg/dL (75-99)
[2019-08-19] MEDS: METOPROLOL TARTRATE 25 MG TAB PO SCH (20:43)
[2019-08-19] MEDS: MONTELUKAST 10 MG TAB PO SCH (20:43)
[2019-08-19] MEDS: ZOLPIDEM 5 MG TAB PO PRN (22:22)
[2019-08-19] MEDS: VENLAFAXINE HCL ER 150 MG CAP PO SCH (22:22)
--- NOTE | 2019-08-19 23:26 | P.PN ---
Subjective Progress Note Date: 08/19/19 The pt denied any new symptoms. No fevers since 08/17 am. No n/v/abd pain/diarrhea. Objective - Vital Signs Vital signs: Vital Signs Temp 100.2 F H 08/19/19 20:30 Pulse 99 08/19/19 20:30 Resp 16 08/19/19 20:30 BP 132/67 08/19/19 20:30 Pulse Ox 97 08/19/19 20:30 Intake & Output 08/19/19 08/19/19 08/20/19 06:59 18:59 06:59 Intake Total 1200 214 400 Output Total 900 1400 Balance 300 -1186 400 Intake: IV 300 Sodium Chloride 0.9% 1, 300 000 ml @ 100 mls/hr IV . Q10H TABITHA Rx#:[id number] Intake, IV Titration 400 Amount Sodium Chloride 0.9% 1, 400 000 ml @ 100 mls/hr IV . Q10H TABITHA Rx#:[id number] Oral 590 Blood Product 310 214 Platelet Irr Pheresis 3 214 Acda Unit [id number] Rc Pheresis Irrad As 3 310 Unit [id number] Output: Urine 900 1400 Other: Voiding Method Urinal Urinal # Voids 1 - Constitutional General appearance: Present: no acute distress - EENT Eyes: Present: EOMI ENT: Present: hearing grossly normal, normal oropharynx - Respiratory Respiratory: bilateral: CTA - Cardiovascular Rhythm: regular Heart sounds: normal: S1, S2 - Gastrointestinal General gastrointestinal: Present: normal bowel sounds, soft - Integumentary Integumentary: Present: normal - Neurologic Neurologic: Present: CNII-XII intact - Musculoskeletal Musculoskeletal: Present: generalized weakness, strength equal bilaterally - Psychiatric Psychiatric: Present: A&O x's 3, appropriate affect - Labs CBC & Chem 7: 08/19/19 06:27 08/19/19 06:27 Labs: Abnormal Lab Results - Last 24 Hours (Table) 08/19/19 08/19/19 08/19/19 Range/Units 06:27 06:27 11:13 WBC 0.9 L* (3.8-10.6) k/uL RBC 2.58 L (4.30-5.90) m/uL Hgb 7.3 L (13.0-17.5) gm/dL Hct 21.4 L (39.0-53.0) % RDW 16.6 H (11.5-15.5) % Plt Count 11 L* (150-450) k/uL Creatinine 0.54 L (0.66-1.25) mg/dL POC Glucose (mg/dL) 113 H (75-99) mg/dL Total Protein 5.9 L (6.3-8.2) g/dL Albumin 3.4 L (3.5-5.0) g/dL 08/19/19 Range/Units 20:14 WBC (3.8-10.6) k/uL RBC (4.30-5.90) m/uL Hgb (13.0-17.5) gm/dL Hct (39.0-53.0) % RDW (11.5-15.5) % Plt Count (150-450) k/uL Creatinine (0.66-1.25) mg/dL POC Glucose (mg/dL) 128 H (75-99) mg/dL Total Protein (6.3-8.2) g/dL Albumin (3.5-5.0) g/dL Microbiology - Last 24 Hours (Table) 08/14/19 17:25 Blood Culture - Preliminary Blood No Growth after 120 hours Assessment and Plan (1) Febrile neutropenia Narrative/Plan: No significant fever since am. Cultures remain negative. No localizing signs for infection. Pt is continuing on Cefepime, anti viral and antifungal. Switch to PO if remains afebrile. Current Visit: No Status: Acute Priority: High Code(s): D70.9 - NE UTROPENIA, UNSPECIFIED; R50.81 - FEVER PRESENTING WITH CONDITIONS CLASSIFIED ELSEWHERE SNOMED Code(s): 303572224 (2) Acute erythroid leukemia Narrative/Plan: Options d/w pt in detail on 08/18/19, and reviewed again today. He has decided, after d/w his family , for active treatment. Probable effectiveness and possible AEs discussed. He expressed full awareness of his guarded prognosis. He will thus be started on HiDAC. Orders will be sent in from the office PICC line will be placed for better IV access, as he has chosen active treatment Continnue to follow counts and transfuse as needed Monitor labs for tumor lysis Plan discussed with admitting service. Pt will start rx this admission Current Visit: No Status: Acute Priority: High Code(s): C94.00 - ACUTE ERYTHROID LEUKEMIA, NOT HAVING ACHIEVED REMISSION SNOMED Code(s): 31502903 (3) Pancytopenia Narrative/Plan: Labs reviewed. Hgb is > 7. He will receive 1 U plt for PICC placement Current Visit: No Status: Chronic Priority: High Code(s): D61.818 - OTHER PANCYTOPENIA SNOMED Code(s): 429209763
[2019-08-20] MEDS: CEFEPIME 2 GM in SODIUM CHLORIDE 0.9% 100 ML IVPB SCH ×3 (02:13→17:21)
[2019-08-20 07:29] LABS: Glucose,Whole Blood 101 mg/dL (75-99)
[2019-08-20 08:06] LABS: ALT 17 U/L (4-49); AST 20 U/L (17-59); African American GFR (CKD) >90 (>60 ml/min/1.73 sqM); Albumin 3.6 g/dL (3.5-5.0); Alkaline Phosphatase 66 U/L (38-126); Anion Gap 10 mmol/L; Blood Urea Nitrogen 10 mg/dL (9-20); Calcium 8.6 mg/dL (8.4-10.2); Carbon Dioxide 29 mmol/L (22-30); Chloride 101 mmol/L (98-107); Glucose 89 mg/dL (74-99); Non-African American GFR(CKD) >90 (>60 ml/min/1.73 sqM); Potassium 4.3 mmol/L (3.5-5.1); Sodium 140 mmol/L (137-145); Total Bilirubin 0.9 mg/dL (0.2-1.3); Total Protein 6.8 g/dL (6.3-8.2)
[2019-08-20 08:19] LABS: Anisocytosis Slight; HCT 23.2 % (39.0-53.0); MCHC 34.4 g/dL (31.0-37.0); MCV 81.4 fL (80.0-100.0); Mean Platelet Volume 6.7; Microcytosis Slight; Poikilocytosis Slight; RBC 2.85 m/uL (4.30-5.90); RDW 16.7 % (11.5-15.5)
[2019-08-20 08:22] LABS: Platelet Count 28 k/uL (150-450)
[2019-08-20] MEDS: FLUTICASONE 110 MCG INHALER INHALATION SCH ×2 (08:31→19:24)
[2019-08-20] MEDS: ACYCLOVIR 200 MG CAP PO SCH ×2 (08:52→20:22)
[2019-08-20] MEDS: DIVALPROEX 500 MG TABLET.DR PO SCH ×2 (08:52→20:22)
[2019-08-20] MEDS: INSULIN ASPART (NovoLOG) 100 UNIT/ML VIAL SQ SCH ×4 (08:52→20:22)
[2019-08-20 09:13] LABS: Metamyelocytes % 2 %; Myelocytes % 2 %; Neutrophils % (M) 2 %
[2019-08-20 09:14] LABS: Nucleated Red Blood Cells 182 /100 WBC (0-0); Total Cells Counted 50
[2019-08-20 09:50] LABS: Blast Cells # (M) 0.06 k/uL (0); Metamyelocytes # (M) 0.01 k/uL (0); Monocytes # (M) 0.01 k/uL (0-1.0); Myelocytes # (M) 0.01 k/uL (0); Neutrophils # (M) 0.01 k/uL (1.3-7.7); WBC 0.5 k/uL (3.8-10.6)
[2019-08-20 09:52] LABS: Polychromasia Present
[2019-08-20 09:53] LABS: RBC Fragments Present
[2019-08-20] MEDS: VORICONAZOLE 200 MG TAB PO SCH (11:02)
[2019-08-20 11:28] LABS: Glucose,Whole Blood 108 mg/dL (75-99)
--- NOTE | 2019-08-20 13:35 | P.PN ---
Subjective Progress Note Date: 08/20/19 Fransisco Burnham is a 48-year-old male who was admitted to [facility] oncology floor directly from the oncology office after presenting with some rigors and having episodes of neutropenia. Patient has a known history of acute erythroid leukemia, he has been receiving chemotherapy on and off. Patient was seen and examined on the medical floor he is alert and oriented 3 in no apparent distress he denies any fever he was having occasional chills otherwise he denies any complaints there was no headache or dizziness no chest pain no shortness of breath no cough no nausea or vomiting no abdominal pain no diarrhea and no burning with urination no frequency or urgency and no hematuria. On 08/16/2019 patient was seen and examined on the oncology floor he is alert and oriented 3 in no apparent distress there is no fever or chills no headache or dizziness no chest pain no shortness of breath no cough no nausea or vomiting no abdominal pain no diarrhea no burning was urination no frequency or urgency and no hematuria. White blood count remains low at 0.4 hemoglobin 7.1 platelet count 10. Oncology and infectious disease are following On 08/17/2019 patient was seen and examined on the oncology floor he is alert and oriented 3 in no apparent distress platelets are down to 6 and platelets transfusion was ordered by oncology there is no fever or chills no headache or dizziness no chest pain no shortness of breath no cough no nausea or vomiting no abdominal pain no diarrhea and no urinary symptoms. On 08/18/2019 Patient is stable there is no fever or chills no headache or di zziness no chest pain no shortness of breath no cough no nausea or vomiting no abdominal pain no diarrhea and no urinary symptoms. On 08/19/2019 patient was seen and examined on the medical floor he is alert and oriented 3 in no apparent distress he is still having pancytopenia case was discussed in details today with Dr. Rojas. And at this time he is recommending to restart chemotherapy on patient, patient will have PICC line placed today and will be started on chemotherapy, clinically patient is doing well he is denying any symptoms there is no fever or chills no headache or dizziness no chest pain no shortness of breath no cough no nausea or vomiting no abdominal pain no diarrhea and no urinary symptoms. On 08/20/2019 patient was seen and examined on the medical floor he is alert and oriented 3 in no apparent distress there is no fever or chills no headache or dizziness no chest pain no shortness of breath no cough no nausea or vomiting no abdominal pain no diarrhea, patient had small amount of blood in the stools likely related to hemorrhoids, there is no burning was urination no frequency or urgency and no hematuria Objective - Vital Signs Vital signs: Vital Signs Temp 99.3 F 08/20/19 11:44 Pulse 87 08/20/19 11:44 Resp 16 08/20/19 11:44 BP 121/57 08/20/19 11:44 Pulse Ox 98 08/20/19 11:44 Intake & Output 08/19/19 08/20/19 08/20/19 18:59 06:59 18:59 Intake Total 214 1200 1600 Output Total 1400 1050 1 Balance -1366 683 5204 Weight 84.368 kg Intake: IV 800 Sodium Chloride 0.9% 1, 800 000 ml @ 100 mls/hr IV . Q10H TABITHA Rx#:[id number] Intake, IV Titration 1200 Amount Sodium Chloride 0.9% 1, 1200 000 ml @ 100 mls/hr IV . Q10H TABITHA Rx#:[id number] Oral 800 Blood Product 214 Platelet Irr Pheresis 3 214 Acda Unit [id number] Output: Urine 1400 1050 Urine/Stool Mix 1 Other: Voiding Method Urinal Urinal Urinal # Voids 1 3 - Exam In general patient is alert and oriented 3 in no apparent distress HEENT head normocephalic and atraumatic Neck is supple no JVD no goiter no lymphadenopathy Chest exam reveals a few scattered crackles no wheezing Cardiac exam reveals regular heart sounds no gallops no murmurs Abdomen is soft nontender no organomegaly with normal bowel sounds Extremity exam reveals no edema no cyanosis or clubbing Skin examination reveals no open ulcers or evidence of cellulitis Neurological examination reveals no gross focal deficit - Labs CBC & Chem 7: 08/20/19 07:17 08/20/19 07:17 Labs: Abnormal Lab Results - Last 24 Hours (Table) 08/19/19 08/20/19 08/20/19 Range/Units 20:14 07:17 07:17 WBC 0.5 L* (3.8-10.6) k/uL RBC 2.85 L (4.30-5.90) m/uL Hgb 8.0 L (13.0-17.5) gm/dL Hct 23.2 L (39.0-53.0) % RDW 16.7 H (11.5-15.5) % Plt Count 28 L D (150-450) k/uL Blast Cells % 12 H* % Neutrophils # (Manual) 0.01 L* (1.3-7.7) k/uL Lymphocytes # (Manual) 0.40 L (1.0-4.8) k/uL Metamyelocytes # (Man) 0.01 H (0) k/uL Myelocytes # (Manual) 0.01 H (0) k/uL Blast Cells # (Man) 0.06 H (0) k/uL Nucleated RBCs 182 H (0-0) /100 WBC Creatinine 0.51 L (0.66-1.25) mg/dL POC Glucose (mg/dL) 128 H (75-99) mg/dL 08/20/19 08/20/19 Range/Units 07:24 11:22 WBC (3.8-10.6) k/uL RBC (4.30-5.90) m/uL Hgb (13.0-17.5) gm/dL Hct (39.0-53.0) % RDW (11.5-15.5) % Plt Count (150-450) k/uL Blast Cells % % Neutrophils # (Manual) (1.3-7.7) k/uL Lymphocytes # (Manual) (1.0-4.8) k/uL Metamyelocytes # (Man) (0) k/uL Myelocytes # (Manual) (0) k/uL Blast Cells # (Man) (0) k/uL Nucleated RBCs (0-0) /100 WBC Creatinine (0.66-1.25) mg/dL POC Glucose (mg/dL) 101 H 108 H (75-99) mg/dL Microbiology - Last 24 Hours (Table) 08/14/19 17:25 Blood Culture - Preliminary Blood No Growth after 120 hours Assessment and Plan Plan: #1 shaking chills with neutropenia patient was admitted by oncology blood cultures urine culture and chest x-ray were ordered infectious disease consultation was requested patient was started on empiric antibiotic therapy. 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
[2019-08-20] MEDS: HYDROcodone/APAP 10-325MG 1 EACH TAB PO PRN ×2 (14:19→22:36)
[2019-08-20 16:58] LABS: Glucose,Whole Blood 111 mg/dL (75-99)
[2019-08-20] MEDS: SODIUM CHLORIDE 0.9% 1,000 ML IV SCH ×2 (17:03→19:22)
[2019-08-20] MEDS: metFORMIN 500 MG TAB PO SCH (17:21)
--- NOTE | 2019-08-20 17:26 | PN ---
PROGRESS NOTE DATE OF SERVICE: 08/20/2019 REASON FOR FOLLOWUP: Febrile neutropenia. INTERVAL HISTORY: Patient has had a lower fever, with 100 this morning. The patient overall is feeling better. The patient denies having any chest pain or shortness of breath or cough. No nausea. No vomiting. No abdominal pain and no diarrhea. PHYSICAL EXAMINATION: Blood pressure 121/57 with a pulse of 87, temperature 99.3. He is 98% on room air. General description is a middle-aged male lying in bed in no distress. RESPIRATORY SYSTEM: Unlabored breathing. Clear to auscultation anteriorly. HEART: S1, S2. Regular rate and rhythm. ABDOMEN: Soft. No tenderness. LABS: Hemoglobin 8, white count 0.5, creatinine 0.51. Blood culture negative. DIAGNOSTIC IMPRESSION AND PLAN: Patient admitted to hospital with febrile neutropenia in this patient who did not have any obvious clinical focus of infection. Fever more likely related to his underlying malignancy. Consideration of possible chemo tomorrow, which may be okay, as the patient has no obvious focus of infection and culture has been negative. Continue therapy. Monitor clinical course closely. MMODL / IJN: [id number] /
[2019-08-20 20:04] LABS: Glucose,Whole Blood 131 mg/dL (75-99)
[2019-08-20] MEDS: METOPROLOL TARTRATE 25 MG TAB PO SCH (20:23)
[2019-08-20] MEDS: VENLAFAXINE HCL ER 150 MG CAP PO SCH (20:23)
[2019-08-20] MEDS: ACETAMINOPHEN TAB 500 MG TAB PO PRN (20:23)
[2019-08-20] MEDS: MONTELUKAST 10 MG TAB PO SCH (20:23)
[2019-08-20] MEDS: ZOLPIDEM 5 MG TAB PO PRN (22:36)
--- NOTE | 2019-08-20 23:43 | P.PN ---
Subjective Progress Note Date: 08/20/19 The pt is s/p PICC placement. He did have some oozing from the PICC site. He has also noted some " dripping of blood" per rectum with BMs, though stool itself was not bloody or black. No sig fevers/chill/n/v Objective - Vital Signs Vital signs: Vital Signs Temp 100.7 F H 08/20/19 22:41 Pulse 98 08/20/19 20:25 Resp 18 08/20/19 20:25 BP 124/73 08/20/19 20:25 Pulse Ox 100 08/20/19 20:25 Intake & Output 08/20/19 08/20/19 08/21/19 06:59 18:59 06:59 Intake Total 1200 1600 1000 Output Total 1050 1 800 Balance 150 1599 200 Weight 84.368 kg Intake: IV 800 Sodium Chloride 0.9% 1, 800 000 ml @ 100 mls/hr IV . Q10H TABITHA Rx#:[id number] Intake, IV Titration 1200 400 Amount Sodium Chloride 0.9% 1, 1200 400 000 ml @ 100 mls/hr IV . Q10H TABITHA Rx#:[id number] Oral 800 600 Output: Urine 1050 800 Urine/Stool Mix 1 Other: Voiding Method Urinal Urinal Urinal # Voids 3 - Constitutional General appearance: Present: no acute distress - EENT Eyes: Present: EOMI ENT: Present: hearing grossly normal, normal oropharynx - Respiratory Respiratory: bilateral: CTA - Cardiovascular Rhythm: regular Heart sounds: normal: S1, S2 - Gastrointestinal General gastrointestinal: Present: normal bowel sounds, soft - Integumentary Integumentary: Present: normal - Neurologic Neurologic: Present: CNII-XII intact - Musculoskeletal Musculoskeletal: Present: strength equal bilaterally - Psychiatric Psychiatric: Present: A&O x's 3, appropriate affect - Labs CBC & Chem 7: 08/20/19 07:17 08/20/19 07:17 Labs: Abnormal Lab Results - Last 24 Hours (Table) 08/20/19 08/20/19 08/20/19 Range/Units 07:17 07:17 07:24 WBC 0.5 L* (3.8-10.6) k/uL RBC 2.85 L (4.30-5.90) m/uL Hgb 8.0 L (13.0-17.5) gm/dL Hct 23.2 L (39.0-53.0) % RDW 16.7 H (11.5-15.5) % Plt Count 28 L D (150-450) k/uL Blast Cells % 12 H* % Neutrophils # (Manual) 0.01 L* (1.3-7.7) k/uL Lymphocytes # (Manual) 0.40 L (1.0-4.8) k/uL Metamyelocytes # (Man) 0.01 H (0) k/uL Myelocytes # (Manual) 0.01 H (0) k/uL Blast Cells # (Man) 0.06 H (0) k/uL Nucleated RBCs 182 H (0-0) /100 WBC Creatinine 0.51 L (0.66-1.25) mg/dL POC Glucose (mg/dL) 101 H (75-99) mg/dL 08/20/19 08/20/19 08/20/19 Range/Units 11:22 16:55 20:04 WBC (3.8-10.6) k/uL RBC (4.30-5.90) m/uL Hgb (13.0-17.5) gm/dL Hct (39.0-53.0) % RDW (11.5-15.5) % Plt Count (150-450) k/uL Blast Cells % % Neutrophils # (Manual) (1.3-7.7) k/uL Lymphocytes # (Manual) (1.0-4.8) k/uL Metamyelocytes # (Man) (0) k/uL Myelocytes # (Manual) (0) k/uL Blast Cells # (Man) (0) k/uL Nucleated RBCs (0-0) /100 WBC Creatinine (0.66-1.25) mg/dL POC Glucose (mg/dL) 108 H 111 H 131 H (75-99) mg/dL Microbiology - Last 24 Hours (Table) 08/14/19 17:25 Blood Culture - Final Blood No Growth after 144 hours Assessment and Plan (1) Acute erythroid leukemia Narrative/Plan: Pt is s/p PICC. He will start salvage HiDAC on 08/21/19. Estimated efficacy, and risks were again discussed briefly. Monitor counts and labs for tumor lysis. Venetoclax, and Vidaza have been discontinued Current Visit: No Status: Acute Priority: High Code(s): C94.00 - ACUTE ERYTHROID LEUKEMIA, NOT HAVING ACHIEVED REMISSION SNOMED Code(s): 02494783 (2) Febrile neutropenia Narrative/Plan: Fever resolved. Switch to PO antibiotic Current Visit: No Status: Acute Priority: High Code(s): D70.9 - NEUTROPENIA, UNSPECIFIED; R50.81 - FEVER PRESENTING WITH CONDITIONS CLASSIFIED ELSEWHERE SNOMED Code(s): 916327576 (3) Pancytopenia Narrative/Plan: Continue to monitor with supportive transfusions as needed for Hgb < 7, and plt < 10. He did reports some rectal bleeding, whihc appears to be minor, hemorrhoidal in nature. Hgb was actually 8, with plt 28. Will monitor, and utilise DDAVP/amicar if persists, as well as plt transfusion if these measures are ineffective Current Visit: No Status: Chronic Priority: High Code(s): D61.818 - OTHER PANCYTOPENIA SNOMED Code(s): 101847940
[2019-08-21] MEDS: CEFEPIME 2 GM in SODIUM CHLORIDE 0.9% 100 ML IVPB SCH ×3 (01:57→17:14)
[2019-08-21] MEDS: SODIUM CHLORIDE 0.9% 1,000 ML IV SCH ×3 (01:58→23:58)
[2019-08-21] MEDS: ACETAMINOPHEN TAB 500 MG TAB PO PRN ×2 (04:35→17:14)
[2019-08-21] MEDS ORDERED: ONDANSETRON 4 MG/2 ML VIAL IVP PRN (06:00)
[2019-08-21] MEDS ORDERED: LORazepam 2 MG/ML INJ IV PRN ×2 (06:00)
[2019-08-21 07:06] LABS: Glucose,Whole Blood 98 mg/dL (75-99)
[2019-08-21] MEDS: INSULIN ASPART (NovoLOG) 100 UNIT/ML VIAL SQ SCH ×4 (07:32→21:31)
[2019-08-21] MEDS: FLUTICASONE 110 MCG INHALER INHALATION SCH ×2 (07:43→19:04)
[2019-08-21] MEDS: ACYCLOVIR 200 MG CAP PO SCH ×2 (08:36→21:29)
[2019-08-21] MEDS: SALT AND SODA MOUTHWASH 1,000 ML PO SCH ×4 (08:36→21:31)
[2019-08-21] MEDS: DIVALPROEX 500 MG TABLET.DR PO SCH ×2 (08:37→21:29)
[2019-08-21] MEDS ORDERED: SODIUM CHLORIDE 0.9% IV SCH (09:00)
[2019-08-21] MEDS ORDERED: DEXAMETHASONE SOD PHOSPHATE 10 MG/ML 1 ML VIAL IV SCH (09:00)
[2019-08-21] MEDS ORDERED: CYTARABINE IV SCH (09:00)
[2019-08-21] MEDS ORDERED: ONDANSETRON 16 MG in SODIUM CHLORIDE 0.9% 50 ML IVPB SCH (09:00)
[2019-08-21] MEDS ORDERED: prednisoLONE ACETATE 1% OPHTH DROPS 5 ML BTL BOTH EYES SCH (09:00)
[2019-08-21] MEDS ORDERED: FAMOTIDINE 20 MG/2 ML VIAL IV SCH (09:00)
[2019-08-21 09:20] LABS: Anisocytosis Slight; HGB 7.1 gm/dL (13.0-17.5); MCH 27.9 pg (25.0-35.0); MCHC 33.7 g/dL (31.0-37.0); MCV 82.9 fL (80.0-100.0); Mean Platelet Volume 6.5; Poikilocytosis Slight; RBC 2.54 m/uL (4.30-5.90); RDW 16.7 % (11.5-15.5)
[2019-08-21 09:31] LABS: Magnesium 2.4 mg/dL (1.6-2.3); Uric Acid 2.8 mg/dL (3.5-8.5)
[2019-08-21 09:32] LABS: ALT 16 U/L (4-49); AST 19 U/L (17-59); African American GFR (CKD) >90 (>60 ml/min/1.73 sqM); Albumin 3.2 g/dL (3.5-5.0); Alkaline Phosphatase 57 U/L (38-126); Anion Gap 8 mmol/L; Blood Urea Nitrogen 11 mg/dL (9-20); Calcium 8.4 mg/dL (8.4-10.2); Carbon Dioxide 28 mmol/L (22-30); Chloride 101 mmol/L (98-107); Glucose 149 mg/dL (74-99); Non-African American GFR(CKD) >90 (>60 ml/min/1.73 sqM); Sodium 137 mmol/L (137-145); Total Bilirubin 0.9 mg/dL (0.2-1.3); Total Protein 5.8 g/dL (6.3-8.2)
[2019-08-21 09:39] LABS: Platelet Count 9 k/uL (150-450)
[2019-08-21 10:10] LABS: Neutrophils % (M) 4 %
[2019-08-21 10:11] LABS: Blast Cells # (M) 0.06 k/uL (0); Monocytes # (M) 0.02 k/uL (0-1.0); Neutrophils # (M) 0.02 k/uL (1.3-7.7); Nucleated Red Blood Cells 200 /100 WBC (0-0); Total Cells Counted 50; WBC 0.4 k/uL (3.8-10.6)
[2019-08-21 10:12] LABS: Basophilic Stippling Present; Polychromasia Present
[2019-08-21 10:13] LABS: Mixed Population RBC Present
[2019-08-21 11:12] LABS: Glucose,Whole Blood 100 mg/dL (75-99)
--- NOTE | 2019-08-21 11:26 | P.PN ---
Subjective Progress Note Date: 08/21/19 Principal diagnosis: AmL Platelets 9 this am, will transfuse prior to initiating re-induction salvage treatment with high dose Cytarabine Objective - Vital Signs Vital signs: Vital Signs Temp 99.3 F 08/21/19 05:36 Pulse 99 08/21/19 04:20 Resp 18 08/21/19 04:20 BP 118/58 08/21/19 04:20 Pulse Ox 97 08/21/19 04:20 Intake & Output 08/20/19 08/21/19 08/21/19 18:59 06:59 18:59 Intake Total 1600 2400 Output Total 1 2000 Balance 1599 400 Weight 84.368 kg Intake: IV 800 Sodium Chloride 0.9% 1, 800 000 ml @ 100 mls/hr IV . Q10H TABITHA Rx#:[id number] Intake, IV Titration 1200 Amount Sodium Chloride 0.9% 1, 1200 000 ml @ 100 mls/hr IV . Q10H TABITHA Rx#:[id number] Oral 800 1200 Output: Urine 2000 Urine/Stool Mix 1 Other: Voiding Method Urinal Urinal Urinal # Voids 3 - Exam General: Alert and Oriented x3, No Acute Distress Head: Normocytic, Atraumatic Neck: Supple Mouth: No Lesions, No Thrush Eyes: Non-sclerotic No Palpable cervical, supraclavicular, axillary adenopathy Heart: Regular Rate, Regular Rhythm Lungs: Clear to Ausculations, No Wheeze, No Rhonchi, Diminishe bilateral lower lobes, No increased respiratory effort noted Abdomen: Soft, Non-Distended, Non-Tended, BSx4 Extremities: No Edema, Equal Strength Neurological: No Focal Defects: No sensory or motor deficits noted Psych: Calm and cooperative - Labs CBC & Chem 7: 08/21/19 08:53 08/21/19 08:53 Labs: Abnormal Lab Results - Last 24 Hours (Table) 08/20/19 08/20/19 08/20/19 Range/Units 11:22 16:55 20:04 WBC (3.8-10.6) k/uL RBC (4.30-5.90) m/uL Hgb (13.0-17.5) gm/dL Hct (39.0-53.0) % RDW (11.5-15.5) % Plt Count (150-450) k/uL Blast Cells % % Neutrophils # (Manual) (1.3-7.7) k/uL Lymphocytes # (Manual) (1.0-4.8) k/uL Blast Cells # (Man) (0) k/uL Nucleated RBCs (0-0) /100 WBC Creatinine (0.66-1.25) mg/dL Glucose (74-99) mg/dL POC Glucose (mg/dL) 108 H 111 H 131 H (75-99) mg/dL Uric Acid (3.5-8.5) mg/dL Magnesium (1.6-2.3) mg/dL Total Protein (6.3-8.2) g/dL Albumin (3.5-5.0) g/dL 08/21/19 08/21/19 08/21/19 Range/Units 08:53 08:53 08:53 WBC 0.4 L* (3.8-10.6) k/uL RBC 2.54 L (4.30-5.90) m/uL Hgb 7.1 L (13.0-17.5) gm/dL Hct 21.0 L (39.0-53.0) % RDW 16.7 H (11.5-15.5) % Plt Count 9 L* D (150-450) k/uL Blast Cells % 16 H* % Neutrophils # (Manual) 0.02 L* (1.3-7.7) k/uL Lymphocytes # (Manual) 0.30 L (1.0-4.8) k/uL Blast Cells # (Man) 0.06 H (0) k/uL Nucleated RBCs 200 H (0-0) /100 WBC Creatinine 0.48 L (0.66-1.25) mg/dL Glucose 149 H (74-99) mg/dL POC Glucose (mg/dL) (75-99) mg/dL Uric Acid 2.8 L (3.5-8.5) mg/dL Magnesium 2.4 H (1.6-2.3) mg/dL Total Protein 5.8 L (6.3-8.2) g/dL Albumin 3.2 L (3.5-5.0) g/dL 08/21/19 Range/Units 11:10 WBC (3.8-10.6) k/uL RBC (4.30-5.90) m/uL Hgb (13.0-17.5) gm/dL Hct (39.0-53.0) % RDW (11.5-15.5) % Plt Count (150-450) k/uL Blast Cells % % Neutrophils # (Manual) (1.3-7.7) k/uL Lymphocytes # (Manual) (1.0-4.8) k/uL Blast Cells # (Man) (0) k/uL Nucleated RBCs (0-0) /100 WBC Creatinine (0.66-1.25) mg/dL Glucose (74-99) mg/dL POC Glucose (mg/dL) 100 H (75-99) mg/dL Uric Acid (3.5-8.5) mg/dL Magnesium (1.6-2.3) mg/dL Total Protein (6.3-8.2) g/dL Albumin (3.5-5.0) g/dL Microbiology - Last 24 Hours (Table) 08/14/19 17:25 Blood Culture - Final Blood No Growth after 144 hours Assessment and Plan Plan: Assessment and Plan Acute erythroid leukemia - Pt is s/p PICC. - He will start salvage HiDAC today after platelet transfusion. - Estimated efficacy, and risks were again discussed briefly. - Monitor counts and labs for tumor lysis. - Venetoclax, and Vidaza have been discontinued Febrile neutropenia - Fever resolved. - Switch to PO antibiotic Pancytopenia - Continue to monitor with supportive transfusions as needed for Hgb < 7, and plt < 10. - Did have some hemorroidal rectal bleeding yesterday, platelets are 9 today, will transfuse and obtain one hour post platelet count. - Will monitor, and utilize DDAVP/amicar if persists, as well as plt transfusion if these measures are ineffective Discussed with Nursing Neuro Checks in place with HiDAC Daily CBC, CMP and TLS labs Aggressive Supportive Care Eileen VALENZUELA
[2019-08-21] MEDS: VORICONAZOLE 200 MG TAB PO SCH (12:30)
--- NOTE | 2019-08-21 12:35 | P.PN ---
Subjective Progress Note Date: 08/21/19 Fransisco Burnham is a 48-year-old male who was admitted to [facility] oncology floor directly from the oncology office after presenting with some rigors and having episodes of neutropenia. Patient has a known history of acute erythroid leukemia, he has been receiving chemotherapy on and off. Patient was seen and examined on the medical floor he is alert and oriented 3 in no apparent distress he denies any fever he was having occasional chills otherwise he denies any complaints there was no headache or dizziness no chest pain no shortness of breath no cough no nausea or vomiting no abdominal pain no diarrhea and no burning with urination no frequency or urgency and no hematuria. On 08/16/2019 patient was seen and examined on the oncology floor he is alert and oriented 3 in no apparent distress there is no fever or chills no headache or dizziness no chest pain no shortness of breath no cough no nausea or vomiting no abdominal pain no diarrhea no burning was urination no frequency or urgency and no hematuria. White blood count remains low at 0.4 hemoglobin 7.1 platelet count 10. Oncology and infectious disease are following On 08/17/2019 patient was seen and examined on the oncology floor he is alert and oriented 3 in no apparent distress platelets are down to 6 and platelets transfusion was ordered by oncology there is no fever or chills no headache or dizziness no chest pain no shortness of breath no cough no nausea or vomiting no abdominal pain no diarrhea and no urinary symptoms. On 08/18/2019 Patient is stable there is no fever or chills no headache or di zziness no chest pain no shortness of breath no cough no nausea or vomiting no abdominal pain no diarrhea and no urinary symptoms. On 08/19/2019 patient was seen and examined on the medical floor he is alert and oriented 3 in no apparent distress he is still having pancytopenia case was discussed in details today with Dr. Rojas. And at this time he is recommending to restart chemotherapy on patient, patient will have PICC line placed today and will be started on chemotherapy, clinically patient is doing well he is denying any symptoms there is no fever or chills no headache or dizziness no chest pain no shortness of breath no cough no nausea or vomiting no abdominal pain no diarrhea and no urinary symptoms. On 08/20/2019 patient was seen and examined on the medical floor he is alert and oriented 3 in no apparent distress there is no fever or chills no headache or dizziness no chest pain no shortness of breath no cough no nausea or vomiting no abdominal pain no diarrhea, patient had small amount of blood in the stools likely related to hemorrhoids, there is no burning was urination no frequency or urgency and no hematuria On 08/21/2019 patient was seen and examined on the medical floor he is alert and oriented 3 in no distress he denies any pain or discomfort at this time there is no more blood in the stools there is no fever or chills no headache or dizziness no chest pain no shortness of breath no cough no nausea or vomiting no abdominal pain no diarrhea and no urinary symptoms Objective - Vital Signs Vital signs: Vital Signs Temp 100 F H 08/21/19 11:12 Pulse 94 08/21/19 11:12 Resp 16 08/21/19 11:12 BP 118/59 08/21/19 11:12 Pulse Ox 98 08/21/19 11:12 Intake & Output 08/20/19 08/21/19 08/21/19 18:59 06:59 18:59 Intake Total 1600 2400 Output Total 1 2000 Balance 1599 400 Weight 84.368 kg Intake: IV 800 Sodium Chloride 0.9% 1, 800 000 ml @ 100 mls/hr IV . Q10H TABITHA Rx#:[id number] Intake, IV Titration 1200 Amount Sodium Chloride 0.9% 1, 1200 000 ml @ 100 mls/hr IV . Q10H TABITHA Rx#:[id number] Oral 800 1200 Output: Urine 2000 Urine/Stool Mix 1 Other: Voiding Method Urinal Urinal Urinal # Voids 3 - Exam In general patient is alert and oriented 3 in no apparent distress HEENT head normocephalic and atraumatic Neck is supple no JVD no goiter no lymphadenopathy Chest exam reveals a few scattered crackles no wheezing Cardiac exam reveals regular heart sounds no gallops no murmurs Abdomen is soft nontender no organomegaly with normal bowel sounds Extremity exam reveals no edema no cyanosis or clubbing Skin examination reveals no open ulcers or evidence of cellulitis Neurological examination reveals no gross focal deficit - Labs CBC & Chem 7: 08/21/19 08:53 08/21/19 08:53 Labs: Abnormal Lab Results - Last 24 Hours (Table) 08/20/19 08/20/19 08/21/19 Range/Units 16:55 20:04 08:53 WBC 0.4 L* (3.8-10.6) k/uL RBC 2.54 L (4.30-5.90) m/uL Hgb 7.1 L (13.0-17.5) gm/dL Hct 21.0 L (39.0-53.0) % RDW 16.7 H (11.5-15.5) % Plt Count 9 L* D (150-450) k/uL Blast Cells % 16 H* % Neutrophils # (Manual) 0.02 L* (1.3-7.7) k/uL Lymphocytes # (Manual) 0.30 L (1.0-4.8) k/uL Blast Cells # (Man) 0.06 H (0) k/uL Nucleated RBCs 200 H (0-0) /100 WBC Creatinine (0.66-1.25) mg/dL Glucose (74-99) mg/dL POC Glucose (mg/dL) 111 H 131 H (75-99) mg/dL Uric Acid (3.5-8.5) mg/dL Magnesium (1.6-2.3) mg/dL Total Protein (6.3-8.2) g/dL Albumin (3.5-5.0) g/dL 08/21/19 08/21/19 08/21/19 Range/Units 08:53 08:53 11:10 WBC (3.8-10.6) k/uL RBC (4.30-5.90) m/uL Hgb (13.0-17.5) gm/dL Hct (39.0-53.0) % RDW (11.5-15.5) % Plt Count (150-450) k/uL Blast Cells % % Neutrophils # (Manual) (1.3-7.7) k/uL Lymphocytes # (Manual) (1.0-4.8) k/uL Blast Cells # (Man) (0) k/uL Nucleated RBCs (0-0) /100 WBC Creatinine 0.48 L (0.66-1.25) mg/dL Glucose 149 H (74-99) mg/dL POC Glucose (mg/dL) 100 H (75-99) mg/dL Uric Acid 2.8 L (3.5-8.5) mg/dL Magnesium 2.4 H (1.6-2.3) mg/dL Total Protein 5.8 L (6.3-8.2) g/dL Albumin 3.2 L (3.5-5.0) g/dL Microbiology - Last 24 Hours (Table) 08/14/19 17:25 Blood Culture - Final Blood No Growth after 144 hours Assessment and Plan Plan: #1 shaking chills with neutropenia patient was admitted by oncology blood cultures urine culture and chest x-ray were ordered infectious disease consultation was requested patient was started on empiric antibiotic therapy. 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
[2019-08-21 16:54] LABS: Glucose,Whole Blood 156 mg/dL (75-99)
[2019-08-21] MEDS: metFORMIN 500 MG TAB PO SCH (17:15)
[2019-08-21 20:39] LABS: Glucose,Whole Blood 157 mg/dL (75-99)
--- NOTE | 2019-08-21 21:20 | XR ---
EXAMINATION TYPE: XR chest 2V DATE OF EXAM: 08/21/2019 COMPARISON: 08/14/2019 HISTORY: Fever TECHNIQUE: 2 views FINDINGS: Heart and mediastinum are normal. Lungs are clear. Diaphragm is normal. Bony thorax is inta ct. Pulmonary vascularity is normal. There is right-sided central venous catheter with tip in the sup erior vena cava. IMPRESSION: Normal chest. No change.
[2019-08-21] MEDS: VENLAFAXINE HCL ER 150 MG CAP PO SCH (21:29)
[2019-08-21] MEDS: METOPROLOL TARTRATE 25 MG TAB PO SCH (21:29)
[2019-08-21] MEDS: MONTELUKAST 10 MG TAB PO SCH (21:29)
--- NOTE | 2019-08-21 22:26 | PN ---
PROGRESS NOTE DATE OF SERVICE: 08/21/2019 REASON FOR FOLLOWUP: Febrile neutropenia. INTERVAL HISTORY: The patient has been running a fever most of the afternoon, though the patient has been hemodynamically stable with no tachycardia or any hemodynamic instability associated with his fever. The patient denies having any headache or URI symptoms. No chest pain, shortness of breath or cough. No abdominal pain. No diarrhea. PHYSICAL EXAMINATION: Blood pressure 103/57 with a pulse of 93, temperature of 97.7, T-max of 102.3. He is 99% on room air. General description is a middle-aged male lying in bed in no distress. RESPIRATORY SYSTEM: Unlabored breathing. Clear to auscultation anteriorly. HEART: S1, S2. Regular rate and rhythm. ABDOMEN: Soft. No tenderness. LABS: Hemoglobin is 7.1, white count 0.4 with a BUN of 11, creatinine 0.48. DIAGNOSTIC IMPRESSION AND PLAN: Patient with febrile neutropenia. Source is likely his underlying malignancy, as the patient does not have obvious clinical focus of infection associated with fever this afternoon. The patient will be re-cultured. Will check UA and chest x-ray as well and adjust antibiotic to meropenem and monitor his clinical course closely. MMODL / IJN: [id number] /
[2019-08-21] MEDS ORDERED: diphenhydrAMINE 25 MG CAP PO STA (22:32)
[2019-08-21 22:52] LABS: Appearance,Urine Clear (Clear); Bilirubin,Urine Negative (Negative); Blood,Urine Negative (Negative); Color,Urine Light Yellow; Glucose,Urine (UA) Negative (Negative); Ketones,Urine Negative (Negative); Leukocyte Esterase,Urine Negative (Negative); Nitrite,Urine Negative (Negative); Protein,Urine Negative (Negative); Specific Gravity,Urine 1.006 (1.001-1.035); Urobilinogen,Urine <2.0 mg/dL (<2.0)
[2019-08-22] MEDS: MEROPENEM 1 GM in SODIUM CHLORIDE 0.9% 100 ML IVPB SCH ×3 (00:46→16:58)
[2019-08-22 07:03] LABS: Glucose,Whole Blood 109 mg/dL (75-99)
[2019-08-22] MEDS: INSULIN ASPART (NovoLOG) 100 UNIT/ML VIAL SQ SCH ×4 (07:32→20:51)
[2019-08-22 07:41] LABS: Anisocytosis Slight; MCH 28.3 pg (25.0-35.0); MCHC 34.3 g/dL (31.0-37.0); MCV 82.5 fL (80.0-100.0); Mean Platelet Volume 6.6; Microcytosis Slight; Poikilocytosis Slight; RBC 2.43 m/uL (4.30-5.90)
[2019-08-22 07:51] LABS: ALT 17 U/L (4-49); AST 21 U/L (17-59); African American GFR (CKD) >90 (>60 ml/min/1.73 sqM); Albumin 3.2 g/dL (3.5-5.0); Alkaline Phosphatase 57 U/L (38-126); Anion Gap 5 mmol/L; Blood Urea Nitrogen 13 mg/dL (9-20); Calcium 8.3 mg/dL (8.4-10.2); Carbon Dioxide 29 mmol/L (22-30); Chloride 103 mmol/L (98-107); Glucose 92 mg/dL (74-99); LDH 606 U/L (313-618); Magnesium 2.4 mg/dL (1.6-2.3); Non-African American GFR(CKD) >90 (>60 ml/min/1.73 sqM); Phosphorus 3.9 mg/dL (2.5-4.5); Potassium 4.2 mmol/L (3.5-5.1); Sodium 137 mmol/L (137-145); Total Bilirubin 1.1 mg/dL (0.2-1.3); Total Protein 5.9 g/dL (6.3-8.2); Uric Acid 3.1 mg/dL (3.5-8.5)
[2019-08-22 09:04] LABS: Platelet Count 11 k/uL (150-450)
[2019-08-22] MEDS: FLUTICASONE 110 MCG INHALER INHALATION SCH ×2 (09:10→21:24)
[2019-08-22] MEDS: DEXAMETHASONE SOD PHOSPHATE 10 MG/ML 1 ML VIAL IV SCH (09:16)
[2019-08-22] MEDS: FAMOTIDINE 20 MG/2 ML VIAL IV SCH (09:17)
[2019-08-22] MEDS: ACYCLOVIR 200 MG CAP PO SCH ×2 (09:17→20:50)
[2019-08-22] MEDS: DIVALPROEX 500 MG TABLET.DR PO SCH ×2 (09:18→20:51)
[2019-08-22] MEDS: SALT AND SODA MOUTHWASH 1,000 ML PO SCH ×4 (09:19→20:54)
[2019-08-22] MEDS: ONDANSETRON 16 MG in SODIUM CHLORIDE 0.9% 50 ML IVPB SCH (09:23)
[2019-08-22 10:32] LABS: Neutrophils % (M) 2 %
[2019-08-22 10:33] LABS: Blast Cells # (M) 0.09 k/uL (0); Monocytes # (M) 0.01 k/uL (0-1.0); Neutrophils # (M) 0.01 k/uL (1.3-7.7); Nucleated Red Blood Cells 300 /100 WBC (0-0); Total Cells Counted 50; WBC 0.3 k/uL (3.8-10.6)
[2019-08-22 10:35] LABS: Tear Drop Cells Present
[2019-08-22] MEDS: SODIUM CHLORIDE 0.9% 1,000 ML IV SCH ×2 (11:44→20:50)
[2019-08-22] MEDS: SODIUM CHLORIDE 0.9% IV SCH ×2 (11:45→22:32)
[2019-08-22] MEDS: CYTARABINE IV SCH ×2 (11:45→22:32)
[2019-08-22] MEDS: HYDROcodone/APAP 10-325MG 1 EACH TAB PO PRN ×2 (11:51→22:39)
[2019-08-22] MEDS: VORICONAZOLE 200 MG TAB PO SCH (11:51)
[2019-08-22] MEDS: prednisoLONE ACETATE 1% OPHTH DROPS 5 ML BTL BOTH EYES SCH ×4 (11:55→22:32)
[2019-08-22 12:19] LABS: Glucose,Whole Blood 145 mg/dL (75-99)
--- NOTE | 2019-08-22 12:55 | P.PN ---
Subjective Progress Note Date: 08/22/19 Fransisco Burnham is a 48-year-old male who was admitted to [facility] oncology floor directly from the oncology office after presenting with some rigors and having episodes of neutropenia. Patient has a known history of acute erythroid leukemia, he has been receiving chemotherapy on and off. Patient was seen and examined on the medical floor he is alert and oriented 3 in no apparent distress he denies any fever he was having occasional chills otherwise he denies any complaints there was no headache or dizziness no chest pain no shortness of breath no cough no nausea or vomiting no abdominal pain no diarrhea and no burning with urination no frequency or urgency and no hematuria. On 08/16/2019 patient was seen and examined on the oncology floor he is alert and oriented 3 in no apparent distress there is no fever or chills no headache or dizziness no chest pain no shortness of breath no cough no nausea or vomiting no abdominal pain no diarrhea no burning was urination no frequency or urgency and no hematuria. White blood count remains low at 0.4 hemoglobin 7.1 platelet count 10. Oncology and infectious disease are following On 08/17/2019 patient was seen and examined on the oncology floor he is alert and oriented 3 in no apparent distress platelets are down to 6 and platelets transfusion was ordered by oncology there is no fever or chills no headache or dizziness no chest pain no shortness of breath no cough no nausea or vomiting no abdominal pain no diarrhea and no urinary symptoms. On 08/18/2019 Patient is stable there is no fever or chills no headache or di zziness no chest pain no shortness of breath no cough no nausea or vomiting no abdominal pain no diarrhea and no urinary symptoms. On 08/19/2019 patient was seen and examined on the medical floor he is alert and oriented 3 in no apparent distress he is still having pancytopenia case was discussed in details today with Dr. Rojas. And at this time he is recommending to restart chemotherapy on patient, patient will have PICC line placed today and will be started on chemotherapy, clinically patient is doing well he is denying any symptoms there is no fever or chills no headache or dizziness no chest pain no shortness of breath no cough no nausea or vomiting no abdominal pain no diarrhea and no urinary symptoms. On 08/20/2019 patient was seen and examined on the medical floor he is alert and oriented 3 in no apparent distress there is no fever or chills no headache or dizziness no chest pain no shortness of breath no cough no nausea or vomiting no abdominal pain no diarrhea, patient had small amount of blood in the stools likely related to hemorrhoids, there is no burning was urination no frequency or urgency and no hematuria On 08/21/2019 patient was seen and examined on the medical floor he is alert and oriented 3 in no distress he denies any pain or discomfort at this time there is no more blood in the stools there is no fever or chills no headache or dizziness no chest pain no shortness of breath no cough no nausea or vomiting no abdominal pain no diarrhea and no urinary symptoms. On 08/22/2019 patient was seen and examined on the oncology floor he is alert and oriented 3 in no apparent distress he is complaining of some pain in his shoulder otherwise he denies any pain there is no fever or chills no headache or dizziness no chest pain no shortness of breath no cough no nausea or vomiting no abdominal pain no diarrhea no burning was urination no frequency or urgency no hematuria and no blood in the stools. He is scheduled to have chemotherapy and transfusion of red blood cells today. Objective - Vital Signs Vital signs: Vital Signs Temp 98.6 F 08/22/19 09:21 Pulse 101 H 08/22/19 09:21 Resp 17 08/22/19 09:21 BP 109/58 08/22/19 09:21 Pulse Ox 99 08/22/19 09:21 Intake & Output 08/21/19 08/22/19 08/22/19 18:59 06:59 18:59 Intake Total 2500 Output Total 3100 Balance -600 Intake: Intake, IV Titration 1300 Amount Meropenem 1 gm In Sodium 100 Chloride 0.9% 100 ml @ 200 mls/hr IVPB Q8HR TABITHA Rx#:[id number] Sodium Chloride 0.9% 1, 1200 000 ml @ 100 mls/hr IV . Q10H TABITHA Rx#:[id number] Oral 1200 Blood Product 0 Platelet Irr Pheresis 0 Acda1 Unit [id number] Output: Urine 3100 Other: Voiding Method Urinal Urinal Urinal # Voids 5 - Exam In general patient is alert and oriented 3 in no apparent distress HEENT head normocephalic and atraumatic Neck is supple no JVD no goiter no lymphadenopathy Chest exam reveals a few scattered crackles no wheezing Cardiac exam reveals regular heart sounds no gallops no murmurs Abdomen is soft nontender no organomegaly with normal bowel sounds Extremity exam reveals no edema no cyanosis or clubbing Skin examination reveals no open ulcers or evidence of cellulitis Neurological examination reveals no gross focal deficit - Labs CBC & Chem 7: 08/22/19 06:41 08/22/19 06:41 Labs: Abnormal Lab Results - Last 24 Hours (Table) 08/21/19 08/21/19 08/21/19 Range/Units 08:53 08:53 16:52 WBC (3.8-10.6) k/uL RBC (4.30-5.90) m/uL Hgb (13.0-17.5) gm/dL Hct (39.0-53.0) % RDW (11.5-15.5) % Plt Count (150-450) k/uL Blast Cells % % Neutrophils # (Manual) (1.3-7.7) k/uL Lymphocytes # (Manual) (1.0-4.8) k/uL Blast Cells # (Man) (0) k/uL Nucleated RBCs (0-0) /100 WBC Creatinine (0.66-1.25) mg/dL POC Glucose (mg/dL) 156 H (75-99) mg/dL Uric Acid (3.5-8.5) mg/dL Calcium (8.4-10.2) mg/dL Magnesium (1.6-2.3) mg/dL C-Reactive Protein 81.8 H (<10.0) mg/L Total Protein (6.3-8.2) g/dL Albumin (3.5-5.0) g/dL Procalcitonin 0.24 H (0.02-0.09) ng/mL Crossmatch 08/21/19 08/22/19 08/22/19 Range/Units 20:37 06:41 06:41 WBC 0.3 L* (3.8-10.6) k/uL RBC 2.43 L (4.30-5.90) m/uL Hgb 6.9 L* (13.0-17.5) gm/dL Hct 20.0 L (39.0-53.0) % RDW 17.0 H (11.5-15.5) % Plt Count 11 L* (150-450) k/uL Blast Cells % 30 H* % Neutrophils # (Manual) 0.01 L* (1.3-7.7) k/uL Lymphocytes # (Manual) 0.20 L (1.0-4.8) k/uL Blast Cells # (Man) 0.09 H (0) k/uL Nucleated RBCs 300 H (0-0) /100 WBC Creatinine 0.50 L (0.66-1.25) mg/dL POC Glucose (mg/dL) 157 H (75-99) mg/dL Uric Acid 3.1 L (3.5-8.5) mg/dL Calcium 8.3 L (8.4-10.2) mg/dL Magnesium 2.4 H (1.6-2.3) mg/dL C-Reactive Protein (<10.0) mg/L Total Protein 5.9 L (6.3-8.2) g/dL Albumin 3.2 L (3.5-5.0) g/dL Procalcitonin (0.02-0.09) ng/mL Crossmatch 08/22/19 08/22/19 08/22/19 Range/Units 07:01 10:42 12:18 WBC (3.8-10.6) k/uL RBC (4.30-5.90) m/uL Hgb (13.0-17.5) gm/dL Hct (39.0-53.0) % RDW (11.5-15.5) % Plt Count (150-450) k/uL Blast Cells % % Neutrophils # (Manual) (1.3-7.7) k/uL Lymphocytes # (Manual) (1.0-4.8) k/uL Blast Cells # (Man) (0) k/uL Nucleated RBCs (0-0) /100 WBC Creatinine (0.66-1.25) mg/dL POC Glucose (mg/dL) 109 H 145 H (75-99) mg/dL Uric Acid (3.5-8.5) mg/dL Calcium (8.4-10.2) mg/dL Magnesium (1.6-2.3) mg/dL C-Reactive Protein (<10.0) mg/L Total Protein (6.3-8.2) g/dL Albumin (3.5-5.0) g/dL Procalcitonin (0.02-0.09) ng/mL Crossmatch See Detail Assessment and Plan Plan: #1 shaking chills with neutropenia patient was admitted by oncology blood cultures urine culture and chest x-ray were ordered infectious disease consultation was requested patient was started on empiric antibiotic therapy. 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
--- NOTE | 2019-08-22 13:22 | P.PN ---
Subjective Progress Note Date: 08/22/19 Principal diagnosis: AmL Day two of chemo, Hg 6.9 Objective - Vital Signs Vital signs: Vital Signs Temp 98.9 F 08/22/19 12:50 Pulse 92 08/22/19 12:50 Resp 16 08/22/19 12:50 BP 124/57 08/22/19 12:50 Pulse Ox 98 08/22/19 12:50 Intake & Output 08/21/19 08/22/19 08/22/19 18:59 06:59 18:59 Intake Total 2500 Output Total 3100 Balance -600 Intake: Intake, IV Titration 1300 Amount Meropenem 1 gm In Sodium 100 Chloride 0.9% 100 ml @ 200 mls/hr IVPB Q8HR TABITHA Rx#:[id number] Sodium Chloride 0.9% 1, 1200 000 ml @ 100 mls/hr IV . Q10H TABITHA Rx#:[id number] Oral 1200 Blood Product 0 Platelet Irr Pheresis 0 Acda1 Unit [id number] Output: Urine 3100 Other: Voiding Method Urinal Urinal Urinal # Voids 5 - Exam General: Alert and Oriented x3, No Acute Distress Head: Normocytic, Atraumatic Neck: Supple Mouth: No Lesions, No Thrush Eyes: Non-sclerotic No Palpable cervical, supraclavicular, axillary adenopathy Heart: Regular Rate, Regular Rhythm Lungs: Clear to Ausculations, No Wheeze, No Rhonchi, Diminishe bilateral lower lobes, No increased respiratory effort noted Abdomen: Soft, Non-Distended, Non-Tended, BSx4 Extremities: No Edema, Equal Strength Neurological: No Focal Defects: No sensory or motor deficits noted Psych: Calm and cooperative - Labs CBC & Chem 7: 08/22/19 06:41 08/22/19 06:41 Labs: Abnormal Lab Results - Last 24 Hours (Table) 08/21/19 08/21/19 08/21/19 Range/Units 08:53 08:53 16:52 WBC (3.8-10.6) k/uL RBC (4.30-5.90) m/uL Hgb (13.0-17.5) gm/dL Hct (39.0-53.0) % RDW (11.5-15.5) % Plt Count (150-450) k/uL Blast Cells % % Neutrophils # (Manual) (1.3-7.7) k/uL Lymphocytes # (Manual) (1.0-4.8) k/uL Blast Cells # (Man) (0) k/uL Nucleated RBCs (0-0) /100 WBC Creatinine (0.66-1.25) mg/dL POC Glucose (mg/dL) 156 H (75-99) mg/dL Uric Acid (3.5-8.5) mg/dL Calcium (8.4-10.2) mg/dL Magnesium (1.6-2.3) mg/dL C-Reactive Protein 81.8 H (<10.0) mg/L Total Protein (6.3-8.2) g/dL Albumin (3.5-5.0) g/dL Procalcitonin 0.24 H (0.02-0.09) ng/mL Crossmatch 08/21/19 08/22/19 08/22/19 Range/Units 20:37 06:41 06:41 WBC 0.3 L* (3.8-10.6) k/uL RBC 2.43 L (4.30-5.90) m/uL Hgb 6.9 L* (13.0-17.5) gm/dL Hct 20.0 L (39.0-53.0) % RDW 17.0 H (11.5-15.5) % Plt Count 11 L* (150-450) k/uL Blast Cells % 30 H* % Neutrophils # (Manual) 0.01 L* (1.3-7.7) k/uL Lymphocytes # (Manual) 0.20 L (1.0-4.8) k/uL Blast Cells # (Man) 0.09 H (0) k/uL Nucleated RBCs 300 H (0-0) /100 WBC Creatinine 0.50 L (0.66-1.25) mg/dL POC Glucose (mg/dL) 157 H (75-99) mg/dL Uric Acid 3.1 L (3.5-8.5) mg/dL Calcium 8.3 L (8.4-10.2) mg/dL Magnesium 2.4 H (1.6-2.3) mg/dL C-Reactive Protein (<10.0) mg/L Total Protein 5.9 L (6.3-8.2) g/dL Albumin 3.2 L (3.5-5.0) g/dL Procalcitonin (0.02-0.09) ng/mL Crossmatch 08/22/19 08/22/19 08/22/19 Range/Units 07:01 10:42 12:18 WBC (3.8-10.6) k/uL RBC (4.30-5.90) m/uL Hgb (13.0-17.5) gm/dL Hct (39.0-53.0) % RDW (11.5-15.5) % Plt Count (150-450) k/uL Blast Cells % % Neutrophils # (Manual) (1.3-7.7) k/uL Lymphocytes # (Manual) (1.0-4.8) k/uL Blast Cells # (Man) (0) k/uL Nucleated RBCs (0-0) /100 WBC Creatinine (0.66-1.25) mg/dL POC Glucose (mg/dL) 109 H 145 H (75-99) mg/dL Uric Acid (3.5-8.5) mg/dL Calcium (8.4-10.2) mg/dL Magnesium (1.6-2.3) mg/dL C-Reactive Protein (<10.0) mg/L Total Protein (6.3-8.2) g/dL Albumin (3.5-5.0) g/dL Procalcitonin (0.02-0.09) ng/mL Crossmatch See Detail Assessment and Plan Plan: Assessment and Plan Acute erythroid leukemia - Pt is s/p PICC. - He will start salvage HiDAC today after platelet transfusion. - Estimated efficacy, and risks were again discussed briefly. - Monitor counts and labs for tumor lysis. - Venetoclax, and Vidaza have been discontinued Febrile neutropenia - Fever resolved. - Switch to PO antibiotic Pancytopenia - Continue to monitor with supportive transfusions as needed for Hgb < 7, and plt < 10. - Did have some hemorroidal rectal bleeding yesterday, platelets are 11K today, will transfuse and obtain one hour post platelet count. - Will monitor, and utilize DDAVP/amicar if persists, as well as plt transfusion if these measures are ineffective Discussed with Nursing Neuro Checks in place with HiDAC Daily CBC, CMP and TLS labs Aggressive Supportive Care Transfuse on unit irradiated PRBC today DDAVP todayy for clotted rectal bleed Eileen Zaman AOCNP Physician Attest: I have completed the full history and physical and agree with above dictation, dictated as a scribe
[2019-08-22 15:17] LABS: HGB 6.9 gm/dL (13.0-17.5)
[2019-08-22] MEDS ORDERED: DESMOPRESSIN ACETATE 24 MCG in SODIUM CHLORIDE 0.9% 50 ML IV ONE (15:30)
[2019-08-22 17:16] LABS: Glucose,Whole Blood 188 mg/dL (75-99)
[2019-08-22] MEDS: metFORMIN 500 MG TAB PO SCH (17:24)
--- NOTE | 2019-08-22 17:27 | PN ---
PROGRESS NOTE DATE OF SERVICE: 08/22/2019 REASON FOR FOLLOWUP: Febrile neutropenia. INTERVAL HISTORY: The patient's overall fever pattern has improved. Still running a fever of 99.9 compared to yesterday of 102.3. The patient is breathing comfortably. The patient denies having any chest pain or shortness of breath or cough. No nausea, no vomiting. No abdominal pain or diarrhea. PHYSICAL EXAMINATION: Blood pressure 119/70 with a pulse of 83, temperature 99.7. He is 96% on room air. General description is an elderly male lying in bed in no distress. RESPIRATORY SYSTEM: Unlabored breathing. Clear to auscultation anteriorly. HEART: S1, S2. Regular rate and rhythm. ABDOMEN: Soft. No tenderness. LABS/IMAGING: Hemoglobin 6.9, white count 0.3, creatinine 0.50. Chest x-ray here last night did not show any acute infiltrate. DIAGNOSTIC IMPRESSION AND PLAN: Patient with febrile neutropenia. Source is likely underlying hematological malignancy. Clinically no definite focus of an infection. The patient is currently covered with meropenem; to continue, and will monitor clinical course closely. Continue with supportive care. MMODL / IJN: [id number] /
[2019-08-22 20:18] LABS: Glucose,Whole Blood 285 mg/dL (75-99)
[2019-08-22] MEDS: MONTELUKAST 10 MG TAB PO SCH (20:50)
[2019-08-22] MEDS: METOPROLOL TARTRATE 25 MG TAB PO SCH (20:51)
[2019-08-22] MEDS: VENLAFAXINE HCL ER 150 MG CAP PO SCH (20:51)
[2019-08-22] MEDS: ZOLPIDEM 5 MG TAB PO PRN (22:39)
[2019-08-23] MEDS: MEROPENEM 1 GM in SODIUM CHLORIDE 0.9% 100 ML IVPB SCH ×4 (01:08→23:34)
[2019-08-23] MEDS: SODIUM CHLORIDE 0.9% 1,000 ML IV SCH ×3 (06:00→23:59)
[2019-08-23 06:35] LABS: ALT 30 U/L (4-49); AST 24 U/L (17-59); African American GFR (CKD) >90 (>60 ml/min/1.73 sqM); Albumin 3.3 g/dL (3.5-5.0); Alkaline Phosphatase 59 U/L (38-126); Anion Gap 5 mmol/L; Blood Urea Nitrogen 15 mg/dL (9-20); Calcium 8.6 mg/dL (8.4-10.2); Carbon Dioxide 28 mmol/L (22-30); Chloride 106 mmol/L (98-107); Glucose 113 mg/dL (74-99); LDH 587 U/L (313-618); Magnesium 2.4 mg/dL (1.6-2.3); Non-African American GFR(CKD) >90 (>60 ml/min/1.73 sqM); Sodium 139 mmol/L (137-145); Total Bilirubin 0.9 mg/dL (0.2-1.3); Uric Acid 3.1 mg/dL (3.5-8.5)
[2019-08-23 06:45] LABS: Anisocytosis Slight; HCT 22.7 % (39.0-53.0); HGB 7.9 gm/dL (13.0-17.5); Hypochromasia Slight; MCH 29.1 pg (25.0-35.0); MCHC 34.7 g/dL (31.0-37.0); MCV 84.1 fL (80.0-100.0); Mean Platelet Volume 6.7; Poikilocytosis Moderate; RDW 16.4 % (11.5-15.5)
[2019-08-23 06:54] LABS: Platelet Count 10 k/uL (150-450)
[2019-08-23 07:19] LABS: Glucose,Whole Blood 126 mg/dL (75-99)
[2019-08-23 08:10] LABS: Neutrophils % (M) 8 %
[2019-08-23 08:11] LABS: Nucleated Red Blood Cells 496 /100 WBC (0-0); Total Cells Counted 50
[2019-08-23 08:17] LABS: Blast Cells # (M) 0.05 k/uL (0); Lymphocytes # (M) 0.29 k/uL (1.0-4.8); Monocytes # (M) 0.03 k/uL (0-1.0); Neutrophils # (M) 0.03 k/uL (1.3-7.7); WBC 0.4 k/uL (3.8-10.6)
[2019-08-23] MEDS: FLUTICASONE 110 MCG INHALER INHALATION SCH ×2 (08:36→19:32)
[2019-08-23] MEDS: INSULIN ASPART (NovoLOG) 100 UNIT/ML VIAL SQ SCH ×4 (09:14→20:31)
[2019-08-23] MEDS: ACYCLOVIR 200 MG CAP PO SCH ×2 (09:22→20:31)
[2019-08-23] MEDS: DIVALPROEX 500 MG TABLET.DR PO SCH ×2 (09:22→20:31)
[2019-08-23] MEDS: prednisoLONE ACETATE 1% OPHTH DROPS 5 ML BTL BOTH EYES SCH ×4 (09:23→21:41)
[2019-08-23] MEDS: SALT AND SODA MOUTHWASH 1,000 ML PO SCH ×4 (09:23→20:31)
[2019-08-23] MEDS: VORICONAZOLE 200 MG TAB PO SCH (11:57)
[2019-08-23 12:29] LABS: Glucose,Whole Blood 128 mg/dL (75-99)
--- NOTE | 2019-08-23 13:32 | P.PN ---
Subjective Progress Note Date: 08/23/19 Fransisco Burnham is a 48-year-old male who was admitted to [facility] oncology floor directly from the oncology office after presenting with some rigors and having episodes of neutropenia. Patient has a known history of acute erythroid leukemia, he has been receiving chemotherapy on and off. Patient was seen and examined on the medical floor he is alert and oriented 3 in no apparent distress he denies any fever he was having occasional chills otherwise he denies any complaints there was no headache or dizziness no chest pain no shortness of breath no cough no nausea or vomiting no abdominal pain no diarrhea and no burning with urination no frequency or urgency and no hematuria. On 08/16/2019 patient was seen and examined on the oncology floor he is alert and oriented 3 in no apparent distress there is no fever or chills no headache or dizziness no chest pain no shortness of breath no cough no nausea or vomiting no abdominal pain no diarrhea no burning was urination no frequency or urgency and no hematuria. White blood count remains low at 0.4 hemoglobin 7.1 platelet count 10. Oncology and infectious disease are following On 08/17/2019 patient was seen and examined on the oncology floor he is alert and oriented 3 in no apparent distress platelets are down to 6 and platelets transfusion was ordered by oncology there is no fever or chills no headache or dizziness no chest pain no shortness of breath no cough no nausea or vomiting no abdominal pain no diarrhea and no urinary symptoms. On 08/18/2019 Patient is stable there is no fever or chills no headache or di zziness no chest pain no shortness of breath no cough no nausea or vomiting no abdominal pain no diarrhea and no urinary symptoms. On 08/19/2019 patient was seen and examined on the medical floor he is alert and oriented 3 in no apparent distress he is still having pancytopenia case was discussed in details today with Dr. Rojas. And at this time he is recommending to restart chemotherapy on patient, patient will have PICC line placed today and will be started on chemotherapy, clinically patient is doing well he is denying any symptoms there is no fever or chills no headache or dizziness no chest pain no shortness of breath no cough no nausea or vomiting no abdominal pain no diarrhea and no urinary symptoms. On 08/20/2019 patient was seen and examined on the medical floor he is alert and oriented 3 in no apparent distress there is no fever or chills no headache or dizziness no chest pain no shortness of breath no cough no nausea or vomiting no abdominal pain no diarrhea, patient had small amount of blood in the stools likely related to hemorrhoids, there is no burning was urination no frequency or urgency and no hematuria On 08/21/2019 patient was seen and examined on the medical floor he is alert and oriented 3 in no distress he denies any pain or discomfort at this time there is no more blood in the stools there is no fever or chills no headache or dizziness no chest pain no shortness of breath no cough no nausea or vomiting no abdominal pain no diarrhea and no urinary symptoms. On 08/22/2019 patient was seen and examined on the oncology floor he is alert and oriented 3 in no apparent distress he is complaining of some pain in his shoulder otherwise he denies any pain there is no fever or chills no headache or dizziness no chest pain no shortness of breath no cough no nausea or vomiting no abdominal pain no diarrhea no burning was urination no frequency or urgency no hematuria and no blood in the stools. He is scheduled to have chemotherapy and transfusion of red blood cells today.. On 08/23/2019 patient was seen and examined on the oncology floor he is complaining of pain in the right shoulder otherwise he denies any complaints there is no fever or chills no headache or dizziness no chest pain no shortness of breath no cough no nausea or vomiting no abdominal pain no diarrhea no burning was urination no frequency or urgency no hematuria and no blood in the stools Objective - Vital Signs Vital signs: Vital Signs Temp 98.2 F 08/23/19 12:00 Pulse 90 08/23/19 12:00 Resp 20 08/23/19 09:46 BP 121/60 08/23/19 12:00 Pulse Ox 96 08/23/19 12:00 Intake & Output 08/22/19 08/23/19 08/23/19 18:59 06:59 18:59 Intake Total 960 2440 480 Output Total 300 1100 800 Balance 660 1340 -320 Intake: Intake, IV Titration 650 900 Amount Cytarabine/Pf 6,000 mg In 500 500 Sodium Chloride 0.9% 500 ml 500 ml @ 186.667 mls/ hr IV Q12H [facility] Rx#: [id number] Meropenem 1 gm In Sodium 100 Chloride 0.9% 100 ml @ 200 mls/hr IVPB Q8HR [facility] Rx#:[id number] Ondansetron 16 mg In 50 Sodium Chloride 0.9% 50 ml @ 232 mls/hr IVPB Q48H [facility] Rx#:[id number] Sodium Chloride 0.9% 1, 400 000 ml @ 100 mls/hr IV . Q10H [facility] Rx#:[id number] Oral 1540 480 Blood Product 310 Rc Irr As1 Unit 310 [id number] Output: Urine 300 1100 800 Other: Voiding Method Urinal Urinal Urinal - Exam In general patient is alert and oriented 3 in no apparent distress HEENT head normocephalic and atraumatic Neck is supple no JVD no goiter no lymphadenopathy Chest exam reveals a few scattered crackles no wheezing Cardiac exam reveals regular heart sounds no gallops no murmurs Abdomen is soft nontender no organomegaly with normal bowel sounds Extremity exam reveals no edema no cyanosis or clubbing Skin examination reveals no open ulcers or evidence of cellulitis Neurological examination reveals no gross focal deficit - Labs CBC & Chem 7: 08/23/19 06:04 08/23/19 06:04 Labs: Abnormal Lab Results - Last 24 Hours (Table) 08/22/19 08/22/19 08/22/19 Range/Units 06:41 10:42 17:15 WBC (3.8-10.6) k/uL RBC (4.30-5.90) m/uL Hgb 6.9 L* (13.0-17.5) gm/dL Hct (39.0-53.0) % RDW (11.5-15.5) % Plt Count (150-450) k/uL Blast Cells % % Neutrophils # (Manual) (1.3-7.7) k/uL Lymphocytes # (Manual) (1.0-4.8) k/uL Blast Cells # (Man) (0) k/uL Nucleated RBCs (0-0) /100 WBC Creatinine (0.66-1.25) mg/dL Glucose (74-99) mg/dL POC Glucose (mg/dL) 188 H (75-99) mg/dL Uric Acid (3.5-8.5) mg/dL Magnesium (1.6-2.3) mg/dL Total Protein (6.3-8.2) g/dL Albumin (3.5-5.0) g/dL Crossmatch See Detail 08/22/19 08/23/19 08/23/19 Range/Units 20:12 06:04 06:04 WBC 0.4 L* (3.8-10.6) k/uL RBC 2.70 L (4.30-5.90) m/uL Hgb 7.9 L (13.0-17.5) gm/dL Hct 22.7 L (39.0-53.0) % RDW 16.4 H (11.5-15.5) % Plt Count 10 L* (150-450) k/uL Blast Cells % 12 H* % Neutrophils # (Manual) 0.03 L* (1.3-7.7) k/uL Lymphocytes # (Manual) 0.29 L (1.0-4.8) k/uL Blast Cells # (Man) 0.05 H (0) k/uL Nucleated RBCs 496 H (0-0) /100 WBC Creatinine 0.46 L (0.66-1.25) mg/dL Glucose 113 H (74-99) mg/dL POC Glucose (mg/dL) 285 H (75-99) mg/dL Uric Acid 3.1 L (3.5-8.5) mg/dL Magnesium 2.4 H (1.6-2.3) mg/dL Total Protein 6.0 L (6.3-8.2) g/dL Albumin 3.3 L (3.5-5.0) g/dL Crossmatch 08/23/19 08/23/19 Range/Units 06:59 11:54 WBC (3.8-10.6) k/uL RBC (4.30-5.90) m/uL Hgb (13.0-17.5) gm/dL Hct (39.0-53.0) % RDW (11.5-15.5) % Plt Count (150-450) k/uL Blast Cells % % Neutrophils # (Manual) (1.3-7.7) k/uL Lymphocytes # (Manual) (1.0-4.8) k/uL Blast Cells # (Man) (0) k/uL Nucleated RBCs (0-0) /100 WBC Creatinine (0.66-1.25) mg/dL Glucose (74-99) mg/dL POC Glucose (mg/dL) 126 H 128 H (75-99) mg/dL Uric Acid (3.5-8.5) mg/dL Magnesium (1.6-2.3) mg/dL Total Protein (6.3-8.2) g/dL Albumin (3.5-5.0) g/dL Crossmatch Microbiology - Last 24 Hours (Table) 08/21/19 22:07 Blood Culture - Preliminary Blood No Growth after 24 hours Assessment and Plan Plan: #1 shaking chills with neutropenia patient was admitted by oncology blood cultures urine culture and chest x-ray were ordered infectious disease consultation was requested patient was started on empiric antibiotic therapy. 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
[2019-08-23] MEDS: ACETAMINOPHEN TAB 500 MG TAB PO PRN (16:16)
[2019-08-23 16:56] LABS: Glucose,Whole Blood 145 mg/dL (75-99)
[2019-08-23] MEDS: metFORMIN 500 MG TAB PO SCH (17:15)
[2019-08-23] MEDS: HYDROcodone/APAP 10-325MG 1 EACH TAB PO PRN (18:51)
[2019-08-23 20:19] LABS: Glucose,Whole Blood 141 mg/dL (75-99)
[2019-08-23] MEDS: METOPROLOL TARTRATE 25 MG TAB PO SCH (20:30)
[2019-08-23] MEDS: VENLAFAXINE HCL ER 150 MG CAP PO SCH (20:30)
[2019-08-23] MEDS: MONTELUKAST 10 MG TAB PO SCH (20:31)
[2019-08-23] MEDS: ZOLPIDEM 5 MG TAB PO PRN (21:39)
[2019-08-23] MEDS: DAPTOmycin 500 MG in SODIUM CHLORIDE 0.9% 50 ML IVPB SCH (23:59)
[2019-08-24 06:15] LABS: Anisocytosis Slight; HCT 20.9 % (39.0-53.0); HGB 7.3 gm/dL (13.0-17.5); MCHC 34.8 g/dL (31.0-37.0); MCV 83.3 fL (80.0-100.0); Mean Platelet Volume 7.6; Poikilocytosis Slight; RBC 2.51 m/uL (4.30-5.90); RDW 16.9 % (11.5-15.5)
[2019-08-24 06:27] LABS: ALT 33 U/L (4-49); AST 25 U/L (17-59); African American GFR (CKD) >90 (>60 ml/min/1.73 sqM); Alkaline Phosphatase 62 U/L (38-126); Anion Gap 6 mmol/L; Blood Urea Nitrogen 14 mg/dL (9-20); Carbon Dioxide 27 mmol/L (22-30); Chloride 103 mmol/L (98-107); Glucose 90 mg/dL (74-99); LDH 725 U/L (313-618); Magnesium 2.2 mg/dL (1.6-2.3); Non-African American GFR(CKD) >90 (>60 ml/min/1.73 sqM); Potassium 4.2 mmol/L (3.5-5.1); Sodium 136 mmol/L (137-145); Total Bilirubin 1.4 mg/dL (0.2-1.3); Total Protein 5.5 g/dL (6.3-8.2); Uric Acid 4.1 mg/dL (3.5-8.5)
[2019-08-24 06:39] LABS: Platelet Count 7 k/uL (150-450); WBC 0.9 k/uL (3.8-10.6)
--- NOTE | 2019-08-24 07:01 | PN ---
PROGRESS NOTE DATE OF SERVICE: 08/23/2019 REASON FOR FOLLOWUP: Febrile neutropenia. INTERVAL HISTORY: The patient did have persistent fever in this patient currently with no hemodynamically instability. episodes of fever. The patient is feeling better though. Denies having any chest pain or shortness of breath or cough. No abdominal pain. No diarrhea. PHYSICAL EXAMINATION: Blood pressure 103/59 with a pulse of 101. Temperature 101. He is 95% on room air. General description: The patient is a middle-aged male lying in bed in no distress. Respiratory system: Unlabored breathing. Clear to auscultation anteriorly. Heart S1- S2, regular rate and rhythm. ABDOMEN: Soft, no tenderness. LABS: Creatinine 0.50, hemoglobin 6.9, white count . DIAGNOSTIC IMPRESSION AND PLAN: Patient with febrile neutropenia. This patient did have persistent fever despite on good gram-negative coverage. We will go ahead and add daptomycin because of his VANCOMYCIN ALLERGY and monitor his clinical course closely. Continue supportive care. DEANNL / EMMAN: [id number] /
[2019-08-24 07:10] LABS: Glucose,Whole Blood 101 mg/dL (75-99)
[2019-08-24] MEDS: FLUTICASONE 110 MCG INHALER INHALATION SCH ×2 (08:11→18:54)
[2019-08-24] MEDS: ACYCLOVIR 200 MG CAP PO SCH ×2 (08:24→20:03)
[2019-08-24] MEDS: MEROPENEM 1 GM in SODIUM CHLORIDE 0.9% 100 ML IVPB SCH ×2 (08:24→16:52)
[2019-08-24] MEDS: DIVALPROEX 500 MG TABLET.DR PO SCH ×2 (08:24→20:04)
[2019-08-24] MEDS: INSULIN ASPART (NovoLOG) 100 UNIT/ML VIAL SQ SCH ×4 (08:25→21:23)
[2019-08-24] MEDS: SALT AND SODA MOUTHWASH 1,000 ML PO SCH ×4 (08:25→20:05)
[2019-08-24] MEDS: prednisoLONE ACETATE 1% OPHTH DROPS 5 ML BTL BOTH EYES SCH ×4 (08:26→21:06)
[2019-08-24] MEDS: HYDROcodone/APAP 10-325MG 1 EACH TAB PO PRN (08:31)
[2019-08-24] MEDS: DEXAMETHASONE SOD PHOSPHATE 10 MG/ML 1 ML VIAL IV SCH (10:03)
[2019-08-24] MEDS: ONDANSETRON 16 MG in SODIUM CHLORIDE 0.9% 50 ML IVPB SCH (10:03)
[2019-08-24] MEDS: FAMOTIDINE 20 MG/2 ML VIAL IV SCH (10:03)
[2019-08-24] MEDS: SODIUM CHLORIDE 0.9% IV SCH ×3 (10:53→21:17)
[2019-08-24] MEDS: CYTARABINE IV SCH ×3 (10:53→21:17)
[2019-08-24 11:30] LABS: Glucose,Whole Blood 105 mg/dL (75-99)
[2019-08-24] MEDS ORDERED: diphenhydrAMINE 50 MG CAP PO STA (12:39)
[2019-08-24] MEDS ORDERED: ACETAMINOPHEN TAB 500 MG TAB PO STA (12:40)
[2019-08-24] MEDS ORDERED: diphenhydrAMINE 25 MG CAP PO STA (12:43)
[2019-08-24] MEDS: SODIUM CHLORIDE 0.9% 1,000 ML IV SCH ×2 (13:53→23:06)
[2019-08-24] MEDS: VORICONAZOLE 200 MG TAB PO SCH (13:53)
[2019-08-24 16:37] LABS: Glucose,Whole Blood 213 mg/dL (75-99)
--- NOTE | 2019-08-24 16:48 | P.PN ---
Subjective Progress Note Date: 08/24/19 Fransisco Burnham is a 48-year-old male who was admitted to [facility] oncology floor directly from the oncology office after presenting with some rigors and having episodes of neutropenia. Patient has a known history of acute erythroid leukemia, he has been receiving chemotherapy on and off. Patient was seen and examined on the medical floor he is alert and oriented 3 in no apparent distress he denies any fever he was having occasional chills otherwise he denies any complaints there was no headache or dizziness no chest pain no shortness of breath no cough no nausea or vomiting no abdominal pain no diarrhea and no burning with urination no frequency or urgency and no hematuria. On 08/16/2019 patient was seen and examined on the oncology floor he is alert and oriented 3 in no apparent distress there is no fever or chills no headache or dizziness no chest pain no shortness of breath no cough no nausea or vomiting no abdominal pain no diarrhea no burning was urination no frequency or urgency and no hematuria. White blood count remains low at 0.4 hemoglobin 7.1 platelet count 10. Oncology and infectious disease are following On 08/17/2019 patient was seen and examined on the oncology floor he is alert and oriented 3 in no apparent distress platelets are down to 6 and platelets transfusion was ordered by oncology there is no fever or chills no headache or dizziness no chest pain no shortness of breath no cough no nausea or vomiting no abdominal pain no diarrhea and no urinary symptoms. On 08/18/2019 Patient is stable there is no fever or chills no headache or di zziness no chest pain no shortness of breath no cough no nausea or vomiting no abdominal pain no diarrhea and no urinary symptoms. On 08/19/2019 patient was seen and examined on the medical floor he is alert and oriented 3 in no apparent distress he is still having pancytopenia case was discussed in details today with Dr. Rojas. And at this time he is recommending to restart chemotherapy on patient, patient will have PICC line placed today and will be started on chemotherapy, clinically patient is doing well he is denying any symptoms there is no fever or chills no headache or dizziness no chest pain no shortness of breath no cough no nausea or vomiting no abdominal pain no diarrhea and no urinary symptoms. On 08/20/2019 patient was seen and examined on the medical floor he is alert and oriented 3 in no apparent distress there is no fever or chills no headache or dizziness no chest pain no shortness of breath no cough no nausea or vomiting no abdominal pain no diarrhea, patient had small amount of blood in the stools likely related to hemorrhoids, there is no burning was urination no frequency or urgency and no hematuria On 08/21/2019 patient was seen and examined on the medical floor he is alert and oriented 3 in no distress he denies any pain or discomfort at this time there is no more blood in the stools there is no fever or chills no headache or dizziness no chest pain no shortness of breath no cough no nausea or vomiting no abdominal pain no diarrhea and no urinary symptoms. On 08/22/2019 patient was seen and examined on the oncology floor he is alert and oriented 3 in no apparent distress he is complaining of some pain in his shoulder otherwise he denies any pain there is no fever or chills no headache or dizziness no chest pain no shortness of breath no cough no nausea or vomiting no abdominal pain no diarrhea no burning was urination no frequency or urgency no hematuria and no blood in the stools. He is scheduled to have chemotherapy and transfusion of red blood cells today.. On 08/23/2019 patient was seen and examined on the oncology floor he is complaining of pain in the right shoulder otherwise he denies any complaints there is no fever or chills no headache or dizziness no chest pain no shortness of breath no cough no nausea or vomiting no abdominal pain no diarrhea no burning was urination no frequency or urgency no hematuria and no blood in the stools. On 08/24/2019Patient was seen and examined on the oncology floor he is complaining of right shoulder pain otherwise he denies any other complaint, there is no fever or chills no headache or dizziness no chest pain no shortness of breath no cough no nausea or vomiting no abdominal pain no diarrhea no burning was urination no frequency or urgency no hematuria and no blood in the stools. He received chemotherapy today and is scheduled to receive 1 unit of platelets this evening platelet level is 7 Objective - Vital Signs Vital signs: Vital Signs Temp 98.1 F 08/24/19 16:00 Pulse 80 08/24/19 16:00 Resp 17 08/24/19 16:00 BP 108/59 08/24/19 16:00 Pulse Ox 100 08/24/19 16:00 Intake & Output 08/23/19 08/24/19 08/24/19 18:59 06:59 18:59 Intake Total 720 1830 480 Output Total 2250 1950 1450 Balance -2720 -120 -320 Intake: Intake, IV Titration 1350 Amount DAPTOmycin 500 mg In 50 Sodium Chloride 0.9% 50 ml @ 100 mls/hr IVPB Q24H [facility] Rx#:[id number] Meropenem 1 gm In Sodium 100 Chloride 0.9% 100 ml @ 200 mls/hr IVPB Q8HR [facility] Rx#:[id number] Sodium Chloride 0.9% 1, 1200 000 ml @ 100 mls/hr IV . Q10H [facility] Rx#:[id number] Oral 720 480 480 Output: Urine 2250 1950 1450 Other: Voiding Method Urinal Urinal Urinal # Voids 5 3 3 # Bowel Movements 1 1 - Exam In general patient is alert and oriented 3 in no apparent distress HEENT head normocephalic and atraumatic Neck is supple no JVD no goiter no lymphadenopathy Chest exam reveals a few scattered crackles no wheezing Cardiac exam reveals regular heart sounds no gallops no murmurs Abdomen is soft nontender no organomegaly with normal bowel sounds Extremity exam reveals no edema no cyanosis or clubbing Skin examination reveals no open ulcers or evidence of cellulitis Neurological examination reveals no gross focal deficit - Labs CBC & Chem 7: 08/24/19 05:39 08/24/19 05:39 Labs: Abnormal Lab Results - Last 24 Hours (Table) 08/23/19 08/23/19 08/24/19 Range/Units 16:54 20:17 05:39 WBC 0.9 L* (3.8-10.6) k/uL RBC 2.51 L (4.30-5.90) m/uL Hgb 7.3 L (13.0-17.5) gm/dL Hct 20.9 L (39.0-53.0) % RDW 16.9 H (11.5-15.5) % Plt Count 7 L* (150-450) k/uL Sodium (137-145) mmol/L Creatinine (0.66-1.25) mg/dL POC Glucose (mg/dL) 145 H 141 H (75-99) mg/dL Calcium (8.4-10.2) mg/dL Total Bilirubin (0.2-1.3) mg/dL Lactate Dehydrogenase (313-618) U/L Total Protein (6.3-8.2) g/dL Albumin (3.5-5.0) g/dL 08/24/19 08/24/19 08/24/19 Range/Units 05:39 07:04 11:11 WBC (3.8-10.6) k/uL RBC (4.30-5.90) m/uL Hgb (13.0-17.5) gm/dL Hct (39.0-53.0) % RDW (11.5-15.5) % Plt Count (150-450) k/uL Sodium 136 L (137-145) mmol/L Creatinine 0.47 L (0.66-1.25) mg/dL POC Glucose (mg/dL) 101 H 105 H (75-99) mg/dL Calcium 8.0 L (8.4-10.2) mg/dL Total Bilirubin 1.4 H (0.2-1.3) mg/dL Lactate Dehydrogenase 725 H (313-618) U/L Total Protein 5.5 L (6.3-8.2) g/dL Albumin 3.0 L (3.5-5.0) g/dL 08/24/19 Range/Units 16:36 WBC (3.8-10.6) k/uL RBC (4.30-5.90) m/uL Hgb (13.0-17.5) gm/dL Hct (39.0-53.0) % RDW (11.5-15.5) % Plt Count (150-450) k/uL Sodium (137-145) mmol/L Creatinine (0.66-1.25) mg/dL POC Glucose (mg/dL) 213 H (75-99) mg/dL Calcium (8.4-10.2) mg/dL Total Bilirubin (0.2-1.3) mg/dL Lactate Dehydrogenase (313-618) U/L Total Protein (6.3-8.2) g/dL Albumin (3.5-5.0) g/dL Microbiology - Last 24 Hours (Table) 08/21/19 22:07 Blood Culture - Preliminary Blood No Growth after 48 hours Assessment and Plan Plan: #1 shaking chills with neutropenia patient was admitted by oncology blood cultures urine culture and chest x-ray were ordered infectious disease consultation was requested patient was started on empiric antibiotic therapy. 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
[2019-08-24] MEDS: metFORMIN 500 MG TAB PO SCH (18:04)
[2019-08-24] MEDS: MONTELUKAST 10 MG TAB PO SCH (20:03)
[2019-08-24] MEDS: METOPROLOL TARTRATE 25 MG TAB PO SCH (20:03)
[2019-08-24] MEDS: VENLAFAXINE HCL ER 150 MG CAP PO SCH (20:03)
[2019-08-24 20:43] LABS: Glucose,Whole Blood 251 mg/dL (75-99)
[2019-08-24] MEDS: BACLOFEN 10 MG TAB PO PRN (22:12)
[2019-08-25] MEDS: DAPTOmycin 500 MG in SODIUM CHLORIDE 0.9% 50 ML IVPB SCH ×2 (00:53→23:05)
[2019-08-25] MEDS: MEROPENEM 1 GM in SODIUM CHLORIDE 0.9% 100 ML IVPB SCH ×4 (02:09→23:53)
[2019-08-25 05:45] LABS: Anisocytosis Slight; HCT 21.7 % (39.0-53.0); HGB 7.2 gm/dL (13.0-17.5); MCHC 33.2 g/dL (31.0-37.0); MCV 84.4 fL (80.0-100.0); Poikilocytosis Slight; RBC 2.58 m/uL (4.30-5.90); RDW 16.7 % (11.5-15.5)
[2019-08-25 05:55] LABS: ALT 32 U/L (4-49); AST 18 U/L (17-59); African American GFR (CKD) >90 (>60 ml/min/1.73 sqM); Albumin 3.2 g/dL (3.5-5.0); Alkaline Phosphatase 61 U/L (38-126); Anion Gap 6 mmol/L; Blood Urea Nitrogen 14 mg/dL (9-20); Calcium 8.6 mg/dL (8.4-10.2); Carbon Dioxide 30 mmol/L (22-30); Chloride 105 mmol/L (98-107); Glucose 139 mg/dL (74-99); Non-African American GFR(CKD) >90 (>60 ml/min/1.73 sqM); Potassium 4.2 mmol/L (3.5-5.1); Sodium 141 mmol/L (137-145); Total Bilirubin 0.9 mg/dL (0.2-1.3); Total Protein 5.8 g/dL (6.3-8.2)
[2019-08-25 06:03] LABS: WBC 0.4 k/uL (3.8-10.6)
[2019-08-25 06:04] LABS: Platelet Count 13 k/uL (150-450)
--- NOTE | 2019-08-25 06:16 | PN ---
PROGRESS NOTE DATE OF SERVICE: 08/24/2019 REASON FOR FOLLOWUP: Febrile neutropenia. INTERVAL HISTORY: The patient is currently afebrile. The patient is breathing comfortably. The patient denies having any chest pain, shortness of breath or cough. No nausea, no vomiting. No abdominal pain, no diarrhea. PHYSICAL EXAMINATION: Blood pressure 106/55 with a pulse of 73, temperature 97.8. He is 97% on room air. General description is a middle-aged male lying in bed in no distress. RESPIRATORY SYSTEM: Unlabored breathing, clear to auscultation anteriorly. HEART: S1, S2. Regular rate and rhythm. ABDOMEN: Soft, no tenderness. LABS: Hemoglobin 7.3, white count 0.9, BUN of 14, creatinine 0.47. DIAGNOSTIC IMPRESSION AND PLAN: Patient with febrile neutropenia in this patient who seems to have clinically responded to addition of daptomycin. Blood cultures remain to be negative. We will continue patient on daptomycin and meropenem and monitor clinical course closely. Continue supportive care. MMODL / IJN: [id number] /
[2019-08-25 06:56] LABS: Glucose,Whole Blood 143 mg/dL (75-99)
[2019-08-25] MEDS: prednisoLONE ACETATE 1% OPHTH DROPS 5 ML BTL BOTH EYES SCH ×4 (07:48→21:22)
[2019-08-25] MEDS: SALT AND SODA MOUTHWASH 1,000 ML PO SCH ×4 (07:48→21:22)
[2019-08-25] MEDS: ACYCLOVIR 200 MG CAP PO SCH ×2 (07:49→20:50)
[2019-08-25] MEDS: DIVALPROEX 500 MG TABLET.DR PO SCH ×2 (07:49→20:50)
[2019-08-25] MEDS: INSULIN ASPART (NovoLOG) 100 UNIT/ML VIAL SQ SCH ×4 (07:49→21:22)
[2019-08-25] MEDS: SODIUM CHLORIDE 0.9% 1,000 ML IV SCH ×4 (07:50→23:03)
[2019-08-25] MEDS: FLUTICASONE 110 MCG INHALER INHALATION SCH ×2 (08:36→20:14)
--- NOTE | 2019-08-25 10:22 | P.PN ---
Subjective Progress Note Date: 08/25/19 Principal diagnosis: AmL Day Five of chemo, cbc is stable. He is tolerating well. Objective - Vital Signs Vital signs: Vital Signs Temp 97.8 F 08/25/19 05:17 Pulse 78 08/25/19 04:00 Resp 16 08/25/19 04:00 BP 123/63 08/25/19 04:00 Pulse Ox 99 08/25/19 04:00 Intake & Output 08/24/19 08/25/19 08/25/19 18:59 06:59 18:59 Intake Total 480 830 Output Total 5050 2150 850 Balance -3887 -0234 -506 Intake: Intake, IV Titration 560 Amount Cytarabine/Pf 6,000 mg In 560 Sodium Chloride 0.9% 500 ml 500 ml @ 186.667 mls/ hr IV Q12H [facility] Rx#: [id number] Oral 480 Blood Product 0 270 Platelet Irr Pheresis 2 0 270 Acda Unit [id number] Output: Urine 5050 2150 850 Other: Voiding Method Urinal Urinal # Voids 3 # Bowel Movements 1 - Exam General: Alert and Oriented x3, No Acute Distress Head: Normocytic, Atraumatic Neck: Supple Mouth: No Lesions, No Thrush Eyes: Non-sclerotic No Palpable cervical, supraclavicular, axillary adenopathy Heart: Regular Rate, Regular Rhythm Lungs: Clear to Ausculations, No Wheeze, No Rhonchi, Diminishe bilateral lower lobes, No increased respiratory effort noted Abdomen: Soft, Non-Distended, Non-Tended, BSx4 Extremities: No Edema, Equal Strength Neurological: No Focal Defects: No sensory or motor deficits noted Psych: Calm and cooperative - Labs CBC & Chem 7: 08/25/19 05:21 08/25/19 05:21 Labs: Abnormal Lab Results - Last 24 Hours (Table) 08/24/19 08/24/19 08/24/19 Range/Units 11:11 16:36 20:42 WBC (3.8-10.6) k/uL RBC (4.30-5.90) m/uL Hgb (13.0-17.5) gm/dL Hct (39.0-53.0) % RDW (11.5-15.5) % Plt Count (150-450) k/uL Creatinine (0.66-1.25) mg/dL Glucose (74-99) mg/dL POC Glucose (mg/dL) 105 H 213 H 251 H (75-99) mg/dL Total Protein (6.3-8.2) g/dL Albumin (3.5-5.0) g/dL 08/25/19 08/25/19 08/25/19 Range/Units 05:21 05:21 06:50 WBC 0.4 L* (3.8-10.6) k/uL RBC 2.58 L (4.30-5.90) m/uL Hgb 7.2 L (13.0-17.5) gm/dL Hct 21.7 L (39.0-53.0) % RDW 16.7 H (11.5-15.5) % Plt Count 13 L* D (150-450) k/uL Creatinine 0.42 L (0.66-1.25) mg/dL Glucose 139 H (74-99) mg/dL POC Glucose (mg/dL) 143 H (75-99) mg/dL Total Protein 5.8 L (6.3-8.2) g/dL Albumin 3.2 L (3.5-5.0) g/dL Microbiology - Last 24 Hours (Table) 08/21/19 22:07 Blood Culture - Preliminary Blood No Growth after 72 hours Assessment and Plan Plan: Assessment and Plan Acute erythroid leukemia - Pt is s/p PICC. - He will start salvage HiDAC today after platelet transfusion. - Estimated efficacy, and risks were again discussed briefly. - Monitor counts and labs for tumor lysis. - Venetoclax, and Vidaza have been discontinued Febrile neutropenia - Fever resolved. - Switch to PO antibiotic Pancytopenia - Continue to monitor with supportive transfusions as needed for Hgb < 7, and plt < 10. - Did have some hemorroidal rectal bleeding yesterday, platelets are 11K today, will transfuse and obtain one hour post platelet count. - Will monitor, and utilize DDAVP/amicar if persists, as well as plt transfusion if these measures are ineffective Discussed with Nursing Neuro Checks in place with HiDAC Daily CBC, CMP and TLS labs Aggressive Supportive Care Transfuse on unit irradiated PRBC today DDAVP todayy for clotted rectal bleed Eileen VALENZUELA
[2019-08-25] MEDS: VORICONAZOLE 200 MG TAB PO SCH (10:54)
[2019-08-25 12:13] LABS: Glucose,Whole Blood 92 mg/dL (75-99)
--- NOTE | 2019-08-25 16:53 | P.PN ---
Subjective Progress Note Date: 08/25/19 Fransisco Burnham is a 48-year-old male who was admitted to [facility] oncology floor directly from the oncology office after presenting with some rigors and having episodes of neutropenia. Patient has a known history of acute erythroid leukemia, he has been receiving chemotherapy on and off. Patient was seen and examined on the medical floor he is alert and oriented 3 in no apparent distress he denies any fever he was having occasional chills otherwise he denies any complaints there was no headache or dizziness no chest pain no shortness of breath no cough no nausea or vomiting no abdominal pain no diarrhea and no burning with urination no frequency or urgency and no hematuria. On 08/16/2019 patient was seen and examined on the oncology floor he is alert and oriented 3 in no apparent distress there is no fever or chills no headache or dizziness no chest pain no shortness of breath no cough no nausea or vomiting no abdominal pain no diarrhea no burning was urination no frequency or urgency and no hematuria. White blood count remains low at 0.4 hemoglobin 7.1 platelet count 10. Oncology and infectious disease are following On 08/17/2019 patient was seen and examined on the oncology floor he is alert and oriented 3 in no apparent distress platelets are down to 6 and platelets transfusion was ordered by oncology there is no fever or chills no headache or dizziness no chest pain no shortness of breath no cough no nausea or vomiting no abdominal pain no diarrhea and no urinary symptoms. On 08/18/2019 Patient is stable there is no fever or chills no headache or di zziness no chest pain no shortness of breath no cough no nausea or vomiting no abdominal pain no diarrhea and no urinary symptoms. On 08/19/2019 patient was seen and examined on the medical floor he is alert and oriented 3 in no apparent distress he is still having pancytopenia case was discussed in details today with Dr. Rojas. And at this time he is recommending to restart chemotherapy on patient, patient will have PICC line placed today and will be started on chemotherapy, clinically patient is doing well he is denying any symptoms there is no fever or chills no headache or dizziness no chest pain no shortness of breath no cough no nausea or vomiting no abdominal pain no diarrhea and no urinary symptoms. On 08/20/2019 patient was seen and examined on the medical floor he is alert and oriented 3 in no apparent distress there is no fever or chills no headache or dizziness no chest pain no shortness of breath no cough no nausea or vomiting no abdominal pain no diarrhea, patient had small amount of blood in the stools likely related to hemorrhoids, there is no burning was urination no frequency or urgency and no hematuria On 08/21/2019 patient was seen and examined on the medical floor he is alert and oriented 3 in no distress he denies any pain or discomfort at this time there is no more blood in the stools there is no fever or chills no headache or dizziness no chest pain no shortness of breath no cough no nausea or vomiting no abdominal pain no diarrhea and no urinary symptoms. On 08/22/2019 patient was seen and examined on the oncology floor he is alert and oriented 3 in no apparent distress he is complaining of some pain in his shoulder otherwise he denies any pain there is no fever or chills no headache or dizziness no chest pain no shortness of breath no cough no nausea or vomiting no abdominal pain no diarrhea no burning was urination no frequency or urgency no hematuria and no blood in the stools. He is scheduled to have chemotherapy and transfusion of red blood cells today.. On 08/23/2019 patient was seen and examined on the oncology floor he is complaining of pain in the right shoulder otherwise he denies any complaints there is no fever or chills no headache or dizziness no chest pain no shortness of breath no cough no nausea or vomiting no abdominal pain no diarrhea no burning was urination no frequency or urgency no hematuria and no blood in the stools. On 08/24/2019Patient was seen and examined on the oncology floor he is complaining of right shoulder pain otherwise he denies any other complaint, there is no fever or chills no headache or dizziness no chest pain no shortness of breath no cough no nausea or vomiting no abdominal pain no diarrhea no burning was urination no frequency or urgency no hematuria and no blood in the stools. He received chemotherapy today and is scheduled to receive 1 unit of platelets this evening platelet level is 7 On 08/25/2019 patient was seen and examined on the oncology floor he is alert an d oriented 3 in no apparent distress there is no fever or chills no headache or dizziness no chest pain no shortness of breath no cough no nausea or vomiting no abdominal pain no diarrhea no blood in the stools no burning with urination no frequency or urgency and no hematuria Objective - Vital Signs Vital signs: Vital Signs Temp 98.1 F 08/25/19 12:00 Pulse 74 08/25/19 12:00 Resp 16 08/25/19 12:00 BP 116/68 08/25/19 12:00 Pulse Ox 97 08/25/19 12:00 Intake & Output 08/24/19 08/25/19 08/25/19 18:59 06:59 18:59 Intake Total 480 830 800 Output Total 5050 2150 1999 Balance -4570 1320 -1200 Intake: IV 800 Sodium Chloride 0.9% 1, 800 000 ml @ 100 mls/hr IV . Q10H TABITHA Rx#:[id number] Intake, IV Titration 560 Amount Cytarabine/Pf 6,000 mg In 560 Sodium Chloride 0.9% 500 ml 500 ml @ 186.667 mls/ hr IV Q12H TABITHA Rx#: [id number] Oral 480 Blood Product 0 270 Platelet Irr Pheresis 2 0 270 Acda Unit [id number] Output: Urine 5050 2150 1999 Other: Voiding Method Urinal Urinal # Voids 3 # Bowel Movements 1 - Exam In general patient is alert and oriented 3 in no apparent distress HEENT head normocephalic and atraumatic Neck is supple no JVD no goiter no lymphadenopathy Chest exam reveals a few scattered crackles no wheezing Cardiac exam reveals regular heart sounds no gallops no murmurs Abdomen is soft nontender no organomegaly with normal bowel sounds Extremity exam reveals no edema no cyanosis or clubbing Skin examination reveals no open ulcers or evidence of cellulitis Neurological examination reveals no gross focal deficit - Labs CBC & Chem 7: 08/25/19 05:21 08/25/19 05:21 Labs: Abnormal Lab Results - Last 24 Hours (Table) 08/24/19 08/25/19 08/25/19 Range/Units 20:42 05:21 05:21 WBC 0.4 L* (3.8-10.6) k/uL RBC 2.58 L (4.30-5.90) m/uL Hgb 7.2 L (13.0-17.5) gm/dL Hct 21.7 L (39.0-53.0) % RDW 16.7 H (11.5-15.5) % Plt Count 13 L* D (150-450) k/uL Creatinine 0.42 L (0.66-1.25) mg/dL Glucose 139 H (74-99) mg/dL POC Glucose (mg/dL) 251 H (75-99) mg/dL Total Protein 5.8 L (6.3-8.2) g/dL Albumin 3.2 L (3.5-5.0) g/dL 08/25/19 Range/Units 06:50 WBC (3.8-10.6) k/uL RBC (4.30-5.90) m/uL Hgb (13.0-17.5) gm/dL Hct (39.0-53.0) % RDW (11.5-15.5) % Plt Count (150-450) k/uL Creatinine (0.66-1.25) mg/dL Glucose (74-99) mg/dL POC Glucose (mg/dL) 143 H (75-99) mg/dL Total Protein (6.3-8.2) g/dL Albumin (3.5-5.0) g/dL Microbiology - Last 24 Hours (Table) 08/21/19 22:07 Blood Culture - Preliminary Blood No Growth after 72 hours Assessment and Plan Plan: #1 shaking chills with neutropenia patient was admitted by oncology blood cultures urine culture and chest x-ray were ordered infectious disease consul tation was requested patient was started on empiric antibiotic therapy. 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
[2019-08-25] MEDS: metFORMIN 500 MG TAB PO SCH (17:14)
[2019-08-25 17:17] LABS: Glucose,Whole Blood 130 mg/dL (75-99)
[2019-08-25] MEDS: MONTELUKAST 10 MG TAB PO SCH (20:50)
[2019-08-25] MEDS: METOPROLOL TARTRATE 25 MG TAB PO SCH (20:50)
[2019-08-25] MEDS: VENLAFAXINE HCL ER 150 MG CAP PO SCH (20:50)
[2019-08-25] MEDS: ZOLPIDEM 5 MG TAB PO PRN (20:55)
[2019-08-25] MEDS: HYDROcodone/APAP 10-325MG 1 EACH TAB PO PRN (20:55)
[2019-08-25] MEDS: BACLOFEN 10 MG TAB PO PRN (20:56)
[2019-08-25 21:17] LABS: Glucose,Whole Blood 135 mg/dL (75-99)
--- NOTE | 2019-08-26 00:02 | PN ---
PROGRESS NOTE DATE OF SERVICE: 08/25/2019. REASON FOR FOLLOWUP: Febrile neutropenia. INTERVAL HISTORY: The patient overall fever pattern has improved. No fever has been recorded for the last 48 hours. The patient has been feeling better, breathing comfortably. Denies having any chest pain or shortness of breath or cough. No nausea, vomiting, abdominal pain, no diarrhea. PHYSICAL EXAMINATION: Blood pressure 115/70 with a pulse of 73, temperature 98.9. He is 100% on room air. General description: The patient is a middle-aged male lying in bed in no distress. Respiratory system: Unlabored breathing. Clear to auscultation anteriorly. Heart S1, S2. Regular rate and rhythm. Abdomen soft, no tenderness. LABS: Hemoglobin 7.2, white count 0.4, BUN of 14, creatinine 0.42. Blood culture has been negative. DIAGNOSTIC IMPRESSION AND PLAN: Patient with febrile neutropenia in this patient currently covered with meropenem and daptomycin to continue while monitoring his clinical course closely. Continue supportive care. MMODL / IJN: [id number] /
[2019-08-26 06:09] LABS: Anisocytosis Slight; HCT 21.8 % (39.0-53.0); HGB 7.4 gm/dL (13.0-17.5); MCH 28.9 pg (25.0-35.0); MCHC 34.1 g/dL (31.0-37.0); MCV 84.8 fL (80.0-100.0); Mean Platelet Volume 6.9; Poikilocytosis Slight; RBC 2.57 m/uL (4.30-5.90)
[2019-08-26 06:10] LABS: Platelet Count 10 k/uL (150-450); WBC 0.2 k/uL (3.8-10.6)
[2019-08-26 06:12] LABS: ALT 34 U/L (4-49); AST 20 U/L (17-59); African American GFR (CKD) >90 (>60 ml/min/1.73 sqM); Albumin 3.3 g/dL (3.5-5.0); Alkaline Phosphatase 62 U/L (38-126); Anion Gap 9 mmol/L; Blood Urea Nitrogen 16 mg/dL (9-20); Calcium 8.6 mg/dL (8.4-10.2); Carbon Dioxide 24 mmol/L (22-30); Chloride 101 mmol/L (98-107); Glucose 87 mg/dL (74-99); LDH 647 U/L (313-618); Magnesium 2.3 mg/dL (1.6-2.3); Non-African American GFR(CKD) >90 (>60 ml/min/1.73 sqM); Phosphorus 4.6 mg/dL (2.5-4.5); Potassium 4.4 mmol/L (3.5-5.1); Sodium 134 mmol/L (137-145); Total Bilirubin 1.4 mg/dL (0.2-1.3); Uric Acid 3.3 mg/dL (3.5-8.5)
[2019-08-26 06:54] LABS: Glucose,Whole Blood 102 mg/dL (75-99)
[2019-08-26] MEDS: INSULIN ASPART (NovoLOG) 100 UNIT/ML VIAL SQ SCH ×4 (08:28→19:59)
[2019-08-26] MEDS: MEROPENEM 1 GM in SODIUM CHLORIDE 0.9% 100 ML IVPB SCH ×3 (08:34→23:51)
[2019-08-26] MEDS: SALT AND SODA MOUTHWASH 1,000 ML PO SCH ×4 (08:35→21:00)
[2019-08-26] MEDS: DIVALPROEX 500 MG TABLET.DR PO SCH ×2 (08:35→19:56)
[2019-08-26] MEDS: ACYCLOVIR 200 MG CAP PO SCH ×2 (08:35→19:56)
[2019-08-26] MEDS: prednisoLONE ACETATE 1% OPHTH DROPS 5 ML BTL BOTH EYES SCH ×4 (08:35→21:00)
[2019-08-26] MEDS: FLUTICASONE 110 MCG INHALER INHALATION SCH ×2 (08:43→20:10)
[2019-08-26] MEDS: FAMOTIDINE 20 MG/2 ML VIAL IV SCH (10:47)
[2019-08-26] MEDS: DEXAMETHASONE SOD PHOSPHATE 10 MG/ML 1 ML VIAL IV SCH (10:47)
[2019-08-26] MEDS: ONDANSETRON 16 MG in SODIUM CHLORIDE 0.9% 50 ML IVPB SCH (10:47)
[2019-08-26 11:12] LABS: Glucose,Whole Blood 115 mg/dL (75-99)
[2019-08-26] MEDS: SODIUM CHLORIDE 0.9% IV SCH ×2 (12:30→21:00)
[2019-08-26] MEDS: CYTARABINE IV SCH ×2 (12:30→21:00)
[2019-08-26] MEDS: VORICONAZOLE 200 MG TAB PO SCH (13:31)
--- NOTE | 2019-08-26 14:14 | P.PN ---
Subjective Progress Note Date: 08/26/19 Principal diagnosis: AmL Tolerating chemo well. Hemo = 7.2, platelets 10 Objective - Vital Signs Vital signs: Vital Signs Temp 98.3 F 08/26/19 11:49 Pulse 74 08/26/19 11:49 Resp 16 08/26/19 11:49 BP 106/58 08/26/19 11:49 Pulse Ox 96 08/26/19 11:49 Intake & Output 08/25/19 08/26/19 08/26/19 18:59 06:59 18:59 Intake Total 1480 1190 240 Output Total 3000 1400 1500 Balance -6789 -210 -4440 Intake: IV 800 Sodium Chloride 0.9% 1, 800 000 ml @ 100 mls/hr IV . Q10H TABITHA Rx#:[id number] Intake, IV Titration 950 Amount DAPTOmycin 500 mg In 50 Sodium Chloride 0.9% 50 ml @ 100 mls/hr IVPB Q24H TABITHA Rx#:[id number] Meropenem 1 gm In Sodium 100 Chloride 0.9% 100 ml @ 200 mls/hr IVPB Q8HR TABITHA Rx#:[id number] Sodium Chloride 0.9% 1, 800 000 ml @ 100 mls/hr IV . Q10H TABITHA Rx#:[id number] Oral 680 240 240 Output: Urine 3000 1400 1500 Other: Voiding Method Urinal Urinal # Voids 1 # Bowel Movements 1 - Exam General: Alert and Oriented x3, No Acute Distress, jaundice mild Head: Normocytic, Atraumatic Neck: Supple Mouth: No Lesions, No Thrush Eyes: Non-sclerotic No Palpable cervical, supraclavicular, axillary adenopathy Heart: Regular Rate, Regular Rhythm Lungs: Clear to Ausculations, No Wheeze, No Rhonchi, Diminishe bilateral lower lobes, No increased respiratory effort noted Abdomen: Soft, Non-Distended, Non-Tended, BSx4 Extremities: No Edema, Equal Strength Neurological: No Focal Defects: No sensory or motor deficits noted Psych: Calm and cooperative - Labs CBC & Chem 7: 08/26/19 05:26 08/26/19 05:26 Labs: Abnormal Lab Results - Last 24 Hours (Table) 08/25/19 08/25/19 08/26/19 Range/Units 16:57 21:15 05:26 WBC 0.2 L* (3.8-10.6) k/uL RBC 2.57 L (4.30-5.90) m/uL Hgb 7.4 L (13.0-17.5) gm/dL Hct 21.8 L (39.0-53.0) % RDW 17.0 H (11.5-15.5) % Plt Count 10 L* (150-450) k/uL Sodium (137-145) mmol/L Creatinine (0.66-1.25) mg/dL POC Glucose (mg/dL) 130 H 135 H (75-99) mg/dL Uric Acid (3.5-8.5) mg/dL Phosphorus (2.5-4.5) mg/dL Total Bilirubin (0.2-1.3) mg/dL Lactate Dehydrogenase (313-618) U/L Total Protein (6.3-8.2) g/dL Albumin (3.5-5.0) g/dL 08/26/19 08/26/19 08/26/19 Range/Units 05:26 06:53 11:10 WBC (3.8-10.6) k/uL RBC (4.30-5.90) m/uL Hgb (13.0-17.5) gm/dL Hct (39.0-53.0) % RDW (11.5-15.5) % Plt Count (150-450) k/uL Sodium 134 L (137-145) mmol/L Creatinine 0.41 L (0.66-1.25) mg/dL POC Glucose (mg/dL) 102 H 115 H (75-99) mg/dL Uric Acid 3.3 L (3.5-8.5) mg/dL Phosphorus 4.6 H (2.5-4.5) mg/dL Total Bilirubin 1.4 H (0.2-1.3) mg/dL Lactate Dehydrogenase 647 H (313-618) U/L Total Protein 6.0 L (6.3-8.2) g/dL Albumin 3.3 L (3.5-5.0) g/dL Microbiology - Last 24 Hours (Table) 08/21/19 22:07 Blood Culture - Preliminary Blood No Growth after 96 hours Assessment and Plan Plan: Assessment and Plan Acute erythroid leukemia - Pt is s/p PICC. - He will start salvage HiDAC today after platelet transfusion. - Estimated efficacy, and risks were again discussed briefly. - Monitor counts and labs for tumor lysis. - Venetoclax, and Vidaza have been discontinued - day 6 Febrile neutropenia - Fever resolved. - Switch to PO antibiotic Pancytopenia - Continue to monitor with supportive transfusions as needed for Hgb < 7, and plt < 10. - Did have some hemorroidal rectal bleeding yesterday, platelets are 10K today, will transfuse and obtain one hour post platelet count. - Will monitor Discussed with Nursing Neuro Checks in place with HiDAC Daily CBC, CMP and TLS labs Aggressive Supportive Care Transfuse on unit irradiated Platelets today Physician Attest: I have completed the full history and physical and agree with above dictation, dictated as a scribe
[2019-08-26] MEDS: SODIUM CHLORIDE 0.9% 1,000 ML IV SCH (16:42)
[2019-08-26 16:59] LABS: Glucose,Whole Blood 221 mg/dL (75-99)
[2019-08-26] MEDS: metFORMIN 500 MG TAB PO SCH (17:04)
[2019-08-26] MEDS ORDERED: ACETAMINOPHEN TAB 500 MG TAB PO STA (18:02)
[2019-08-26] MEDS ORDERED: diphenhydrAMINE 25 MG CAP PO STA (18:03)
[2019-08-26] MEDS: VENLAFAXINE HCL ER 150 MG CAP PO SCH (19:56)
[2019-08-26] MEDS: METOPROLOL TARTRATE 25 MG TAB PO SCH (19:56)
[2019-08-26] MEDS: MONTELUKAST 10 MG TAB PO SCH (19:56)
[2019-08-26 19:57] LABS: Glucose,Whole Blood 235 mg/dL (75-99)
--- NOTE | 2019-08-26 20:16 | PN ---
PROGRESS NOTE DATE OF SERVICE: 08/26/2019 REASON FOR FOLLOWUP: Febrile neutropenia. INTERVAL HISTORY: The patient did have a low-grade fever of 100.4 last night. However, the patient has been afebrile since then. The patient overall is feeling better, breathing comfortably. The patient denies having any chest pain, shortness of breath or cough. No nausea, no vomiting. No abdominal pain or diarrhea. PHYSICAL EXAMINATION: Blood pressure 106/58 with a pulse of 74, temperature 98.3. He is 96% on room air. General description is a middle-aged male lying in bed in no distress. RESPIRATORY SYSTEM: Unlabored breathing. Clear to auscultation anteriorly. HEART: S1, S2. Regular rate and rhythm. ABDOMEN: Soft. No tenderness. LABS: Hemoglobin 7.4, white count 0.2. Creatinine 0.41. DIAGNOSTIC IMPRESSION AND PLAN: Patient with febrile neutropenia in this patient who did have multiple cultures. Those have been negative. No obvious focus of infection with his right arm PICC. Daptomycin was added with overall improvement in the fever; to continue along with meropenem and monitor his clinical course closely. MMODL / IJN: [id number] /
[2019-08-26] MEDS: DAPTOmycin 500 MG in SODIUM CHLORIDE 0.9% 50 ML IVPB SCH (23:15)
[2019-08-27 02:32] VITALS: RESP 16
[2019-08-27] MEDS: SODIUM CHLORIDE 0.9% 1,000 ML IV SCH ×2 (04:49→11:51)
[2019-08-27 06:44] LABS: Glucose,Whole Blood 108 mg/dL (75-99)
[2019-08-27 07:31] LABS: ALT 35 U/L (4-49); AST 20 U/L (17-59); African American GFR (CKD) >90 (>60 ml/min/1.73 sqM); Albumin 3.8 g/dL (3.5-5.0); Alkaline Phosphatase 64 U/L (38-126); Anion Gap 8 mmol/L; Blood Urea Nitrogen 19 mg/dL (9-20); Calcium 9.2 mg/dL (8.4-10.2); Carbon Dioxide 27 mmol/L (22-30); Chloride 105 mmol/L (98-107); Glucose 104 mg/dL (74-99); LDH 652 U/L (313-618); Magnesium 2.6 mg/dL (1.6-2.3); Non-African American GFR(CKD) >90 (>60 ml/min/1.73 sqM); Phosphorus 4.5 mg/dL (2.5-4.5); Potassium 5.1 mmol/L (3.5-5.1); Sodium 140 mmol/L (137-145); Total Bilirubin 1.3 mg/dL (0.2-1.3); Total Protein 6.6 g/dL (6.3-8.2); Uric Acid 3.2 mg/dL (3.5-8.5)
[2019-08-27] MEDS: FLUTICASONE 110 MCG INHALER INHALATION SCH (07:55)
[2019-08-27 07:56] LABS: Anisocytosis Slight; HCT 24.1 % (39.0-53.0); HGB 8.1 gm/dL (13.0-17.5); MCH 28.3 pg (25.0-35.0); MCHC 33.4 g/dL (31.0-37.0); MCV 84.9 fL (80.0-100.0); Mean Platelet Volume 7.3; Poikilocytosis Slight; RBC 2.84 m/uL (4.30-5.90); RDW 16.5 % (11.5-15.5)
[2019-08-27] MEDS: MEROPENEM 1 GM in SODIUM CHLORIDE 0.9% 100 ML IVPB SCH (08:10)
[2019-08-27] MEDS: INSULIN ASPART (NovoLOG) 100 UNIT/ML VIAL SQ SCH ×2 (08:10→12:12)
[2019-08-27] MEDS: prednisoLONE ACETATE 1% OPHTH DROPS 5 ML BTL BOTH EYES SCH (08:11)
[2019-08-27] MEDS: SALT AND SODA MOUTHWASH 1,000 ML PO SCH (08:11)
[2019-08-27] MEDS: DIVALPROEX 500 MG TABLET.DR PO SCH (08:11)
[2019-08-27] MEDS: ACYCLOVIR 200 MG CAP PO SCH (08:11)
[2019-08-27 08:12] LABS: WBC 0.2 k/uL (3.8-10.6)
[2019-08-27 09:02] LABS: Platelet Count 28 k/uL (150-450)
[2019-08-27] MEDS: VORICONAZOLE 200 MG TAB PO SCH (11:48)
[2019-08-27 12:11] LABS: Glucose,Whole Blood 90 mg/dL (75-99)
[2019-08-27 12:50] VITALS: BP 114/69; PULSE 69; TEMP 98.5
--- NOTE | 2019-08-27 14:34 | P.PN ---
Subjective Progress Note Date: 08/27/19 Principal diagnosis: AmL Completing re-induction Objective - Vital Signs Vital signs: Vital Signs Temp 98.5 F 08/27/19 12:00 Pulse 69 08/27/19 12:00 Resp 16 08/27/19 12:00 BP 114/69 08/27/19 12:00 Pulse Ox 98 08/27/19 12:00 Intake & Output 08/26/19 08/27/19 08/27/19 18:59 06:59 18:59 Intake Total 240 1828 Output Total 2300 2500 1350 Balance -2060 -672 -1350 Weight 84.368 kg Intake: IV 800 Sodium Chloride 0.9% 1, 800 000 ml @ 100 mls/hr IV . Q10H TABITHA Rx#:[id number] Intake, IV Titration 710 Amount Cytarabine/Pf 6,000 mg In 560 Sodium Chloride 0.9% 500 ml 500 ml @ 186.667 mls/ hr IV Q12H TABITHA Rx#: [id number] DAPTOmycin 500 mg In 50 Sodium Chloride 0.9% 50 ml @ 100 mls/hr IVPB Q24H TABITHA Rx#:[id number] Meropenem 1 gm In Sodium 100 Chloride 0.9% 100 ml @ 200 mls/hr IVPB Q8HR TABITHA Rx#:[id number] Oral 240 Blood Product 0 318 Platelet Irr Pheresis 0 318 Acda1 Unit [id number] Output: Urine 2300 2500 1350 Other: Voiding Method Urinal Urinal # Voids 4 1 - Exam General: Alert and Oriented x3, No Acute Distress, jaundice mild Head: Normocytic, Atraumatic Neck: Supple Mouth: No Lesions, No Thrush Eyes: Non-sclerotic No Palpable cervical, supraclavicular, axillary adenopathy Heart: Regular Rate, Regular Rhythm Lungs: Clear to Ausculations, No Wheeze, No Rhonchi, Diminishe bilateral lower lobes, No increased respiratory effort noted Abdomen: Soft, Non-Distended, Non-Tended, BSx4 Extremities: No Edema, Equal Strength Neurological: No Focal Defects: No sensory or motor deficits noted Psych: Calm and cooperative - Labs CBC & Chem 7: 08/27/19 06:11 08/27/19 06:11 Labs: Abnormal Lab Results - Last 24 Hours (Table) 08/26/19 08/26/19 08/27/19 Range/Units 16:58 19:55 06:11 WBC 0.2 L* (3.8-10.6) k/uL RBC 2.84 L (4.30-5.90) m/uL Hgb 8.1 L (13.0-17.5) gm/dL Hct 24.1 L (39.0-53.0) % RDW 16.5 H (11.5-15.5) % Plt Count 28 L D (150-450) k/uL Creatinine (0.66-1.25) mg/dL Glucose (74-99) mg/dL POC Glucose (mg/dL) 221 H 235 H (75-99) mg/dL Uric Acid (3.5-8.5) mg/dL Magnesium (1.6-2.3) mg/dL Lactate Dehydrogenase (313-618) U/L 08/27/19 08/27/19 Range/Units 06:11 06:42 WBC (3.8-10.6) k/uL RBC (4.30-5.90) m/uL Hgb (13.0-17.5) gm/dL Hct (39.0-53.0) % RDW (11.5-15.5) % Plt Count (150-450) k/uL Creatinine 0.47 L (0.66-1.25) mg/dL Glucose 104 H (74-99) mg/dL POC Glucose (mg/dL) 108 H (75-99) mg/dL Uric Acid 3.2 L (3.5-8.5) mg/dL Magnesium 2.6 H (1.6-2.3) mg/dL Lactate Dehydrogenase 652 H (313-618) U/L Microbiology - Last 24 Hours (Table) 08/21/19 22:07 Blood Culture - Preliminary Blood No Growth after 120 hours Assessment and Plan Plan: Assessment and Plan Acute erythroid leukemia - Pt is s/p PICC. - He will start salvage HiDAC today after platelet transfusion. - Estimated efficacy, and risks were again discussed briefly. - Monitor counts and labs for tumor lysis. - Venetoclax, and Vidaza have been discontinued - day 6 Febrile neutropenia - resolved - Fever resolved. - Switch to PO antibiotic Pancytopenia - Continue to monitor with supportive transfusions as needed for Hgb < 7, and plt < 10. - Stable today no transfusion needed Counts are stable patient ok for discharge as long as cbc on sunday, sunday and sunday Physician Attest: I have completed the full history and physical and agree with above dictation, dictated as a scribe
--- NOTE | 2019-08-27 15:30 | P.DS ---
Providers Date of admission: 08/14/19 15:00 Expected date of discharge: 08/27/19 Attending physician: Veronika Dotson Consults: 08/14/19 17:41 Consult Physician Routine Consulting Provider: Hubert De Anda Consult Reason/Comments: rigors, neutropenia Do you want consulting provider notified?: Yes, Notify in am 08/15/19 16:42 Consult Physician Routine Consulting Provider: Hubert De Anda Consult Reason/Comments: neutropenia Do you want consulting provider notified?: Yes 08/17/19 11:30 Consult Physician Urgent Consulting Provider: Guille Rojas Consult Reason/Comments: KNOWN TO YOU Do you want consulting provider notified?: Yes Primary care physician: Veronika Dotson [facility] Course: Diagnosis on discharge: #1 shaking chills with neutropenia patient was admitted by oncology blood cultures urine culture and chest x-ray were ordered infectious disease consultation was requested patient was started on empiric antibiotic therapy. 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 Patient has a known history of acute erythroid leukemia, he has been receiving chemotherapy on and off. Patient was seen and examined on the medical floor he is alert and oriented 3 in no apparent distress he denies any fever he was having occasional chills otherwise he denies any complaints there was no headache or dizziness no chest pain no shortness of breath no cough no nausea or vomiting no abdominal pain no diarrhea and no burning with urination no frequency or urgency and no hematuria. On 08/16/2019 patient was seen and examined on the oncology floor he is alert and oriented 3 in no apparent distress there is no fever or chills no headache or dizziness no chest pain no shortness of breath no cough no nausea or vomiting no abdominal pain no diarrhea no burning was urination no frequency or urgency and no hematuria. White blood count remains low at 0.4 hemoglobin 7.1 platelet count 10. Oncology and infectious disease are following On 08/17/2019 patient was seen and examined on the oncology floor he is alert and oriented 3 in no apparent distress platelets are down to 6 and platelets transfusion was ordered by oncology there is no fever or chills no headache or dizziness no chest pain no shortness of breath no cough no nausea or vomiting no abdominal pain no diarrhea and no urinary symptoms. On 08/18/2019 Patient is stable there is no fever or chills no headache or dizzin ess no chest pain no shortness of breath no cough no nausea or vomiting no abdominal pain no diarrhea and no urinary symptoms. On 08/19/2019 patient was seen and examined on the medical floor he is alert and oriented 3 in no apparent distress he is still having pancytopenia case was discussed in details today with Dr. Rojas. And at this time he is recommending to restart chemotherapy on patient, patient will have PICC line placed today and will be started on chemotherapy, clinically patient is doing well he is denying any symptoms there is no fever or chills no headache or dizziness no chest pain no shortness of breath no cough no nausea or vomiting no abdominal pain no diarrhea and no urinary symptoms. On 08/20/2019 patient was seen and examined on the medical floor he is alert and oriented 3 in no apparent distress there is no fever or chills no headache or dizziness no chest pain no shortness of breath no cough no nausea or vomiting no abdominal pain no diarrhea, patient had small amount of blood in the stools likely related to hemorrhoids, there is no burning was urination no frequency or urgency and no hematuria On 08/21/2019 patient was seen and examined on the medical floor he is alert and oriented 3 in no distress he denies any pain or discomfort at this time there is no more blood in the stools there is no fever or chills no headache or dizziness no chest pain no shortness of breath no cough no nausea or vomiting no abdominal pain no diarrhea and no urinary symptoms. On 08/22/2019 patient was seen and examined on the oncology floor he is alert and oriented 3 in no apparent distress he is complaining of some pain in his shoulder otherwise he denies any pain there is no fever or chills no headache or dizziness no chest pain no shortness of breath no cough no nausea or vomiting no abdominal pain no diarrhea no burning was urination no frequency or urgency no hematuria and no blood in the stools. He is scheduled to have chemotherapy and transfusion of red blood cells today.. On 08/23/2019 patient was seen and examined on the oncology floor he is complaining of pain in the right shoulder otherwise he denies any complaints there is no fever or chills no headache or dizziness no chest pain no shortness of breath no cough no nausea or vomiting no abdominal pain no diarrhea no burning was urination no frequency or urgency no hematuria and no blood in the stools. On 08/24/2019Patient was seen and examined on the oncology floor he is complaining of right shoulder pain otherwise he denies any other complaint, there is no fever or chills no headache or dizziness no chest pain no shortness of breath no cough no nausea or vomiting no abdominal pain no diarrhea no burning was urination no frequency or urgency no hematuria and no blood in the stools. He received chemotherapy today and is scheduled to receive 1 unit of platelets this evening platelet level is 7 On 08/25/2019 patient was seen and examined on the oncology floor he is alert and oriented 3 in no apparent distress there is no fever or chills no headache or dizziness no chest pain no shortness of breath no cough no nausea or vomiting no abdominal pain no diarrhea no blood in the stools no burning with urination no frequency or urgency and no hematuria On 08/26/2019 patient was seen and examined on the oncology floor he is alert and oriented 3 in no apparent distress there is no fever or chills no headache or dizziness no chest pain no shortness of breath no cough no nausea or vomiting no abdominal pain no diarrhea no blood in the stool no burning with urination no frequency or urgency and no hematuria the right shoulder has improved. On 08/27/2019 patient was seen and examined on the oncology floor he is doing well and denying any symptoms, he was evaluated by oncology and was cleared for discharge, he was evaluated by infectious disease, he was cleared to discontinue IV antibiotic, recommendation by Dr. De Anda is to give a course of doxycycline 100 mg twice a day for for 5 more days. Patient was instructed to return to the hospital if having any elevated temperature or shaking chills and to contact the office if having any other symptoms Plan - Discharge Summary Discharge Rx Participant: No New Discharge Prescriptions: New Doxycycline [Vibramycin] 100 mg PO BID #10 capsule Baclofen [Lioresal] 5 mg PO BID PRN tab PRN Reason: Muscle Spasm prednisoLONE ACETATE 1% OPHTH [Pred Forte 1%] 1 drops BOTH EYES QID ml Continue Montelukast Sodium [Singulair] 10 mg PO HS Albuterol Inhaler [Ventolin Hfa Inhaler] 2 puff INHALATION RT-Q6H PRN PRN Reason: Shortness Of Breath Beclomethasone Dipropionate [Qvar 80 mcg] 2 puff INHALATION RT-BID Divalproex [Depakote] 500 mg PO BID tablet. metFORMIN HCL [Glucophage] 500 mg PO PC-SUPPER #0 Metoprolol Tartrate [Lopressor] 25 mg PO HS Zolpidem [Ambien] 5 mg PO HS PRN #30 tab PRN Reason: Insomnia Venlafaxine HCl [Effexor XR] 150 mg PO HS 30 Days #30 tab HYDROcodone/APAP 10-325MG [[place] 10-325] 1 tab PO TID PRN PRN Reason: Pain Voriconazole 100 mg PO DAILY@1130 #30 tab Acyclovir [Zovirax] 400 mg PO BID #60 cap Discontinued Levofloxacin [Levaquin] 500 mg PO DAILY Venetoclax [Venclexta] 400 mg PO AC-SUPPER Discharge Medication List Montelukast Sodium [Singulair] 10 mg PO HS 06/01/16 [History] Albuterol Inhaler [Ventolin Hfa Inhaler] 2 puff INHALATION RT-Q6H PRN 10/15/17 [History] Beclomethasone Dipropionate [Qvar 80 mcg] 2 puff INHALATION RT-BID 10/15/17 [History] Divalproex [Depakote] 500 mg PO BID tablet. 01/27/19 [Rx] metFORMIN HCL [Glucophage] 500 mg PO PC-SUPPER #0 02/19/19 [Rx] Metoprolol Tartrate [Lopressor] 25 mg PO HS 06/03/19 [History] Zolpidem [Ambien] 5 mg PO HS PRN #30 tab 06/09/19 [Rx] Venlafaxine HCl [Effexor XR] 150 mg PO HS 30 Days #30 tab 07/09/19 [Rx] HYDROcodone/APAP 10-325MG [[place] 10-325] 1 tab PO TID PRN 08/08/19 [History] Acyclovir [Zovirax] 400 mg PO BID #60 cap 08/27/19 [Rx] Baclofen [Lioresal] 5 mg PO BID PRN tab 08/27/19 [Rx] Doxycycline [Vibramycin] 100 mg PO BID #10 capsule 08/27/19 [Rx] Voriconazole 100 mg PO DAILY@1130 #30 tab 08/27/19 [Rx] prednisoLONE ACETATE 1% OPHTH [Pred Forte 1%] 1 drops BOTH EYES QID ml 08/27/19 [Rx] Follow up Appointment(s)/Referral(s): Guille Rojas MD [STAFF PHYSICIAN] - 1-2 Days (Every other day for CBC) Activity/Diet/Wound Care/Special Instructions: ACTIVITY TOLERATED DIET TOLERATED
--- NOTE | 2019-08-27 16:46 | PN ---
PROGRESS NOTE DATE OF SERVICE: 08/27/2019 REASON FOR FOLLOWUP: Febrile neutropenia. INTERVAL HISTORY: The patient is currently afebrile. No fever has been recorded in the last 48 hours. The patient overall is feeling better and anxious to go home. No nausea, no vomiting. No abdominal pain or diarrhea. PHYSICAL EXAMINATION: Blood pressure 114/69 with a pulse of 59, temperature 98.5. He is 98% on room air. General description is a middle-aged male lying in bed in no distress. RESPIRATORY SYSTEM: Unlabored breathing. Clear to auscultation anteriorly. HEART: S1, S2. Regular rate and rhythm. ABDOMEN: Soft. No tenderness. LABS: Hemoglobin 8.1, white count 0.2, BUN of 19, creatinine 0.47. Culture remains negative. DIAGNOSTIC IMPRESSION AND PLAN: Patient with febrile neutropenia in this patient who did not have any obvious focus of infection. The patient's culture remains negative and his fever is all after chemo, more likely indicating fever was related to his underlying leukemia. He is currently being discharged on voriconazole, acyclovir for prophylax. Will give a short course of oral doxycycline and monitor clinical course closely. Plan of care was discussed with the admitting physician. MMODL / IJN: [id number] /
== END 2019-08-27 17:27 | disposition home or self-care (01) | DRG 835 ==
LOC: 5NMEDONC 15:00
PROVIDERS: ADMIT Internal Medicine; ATTEND Internal Medicine
PROC: 30233R1 Transfusion of Nonautologous Platelets into Peripheral Vein, Percutaneous Approach (ICD-10-PCS; principal; 2019-08-14)
PROC: 02HV33Z Insertion of Infusion Device into Superior Vena Cava, Percutaneous Approach (ICD-10-PCS; 2019-08-19)
PROC: 3E04305 Introduction of Other Antineoplastic into Central Vein, Percutaneous Approach (ICD-10-PCS; 2019-08-21)
DX: C94.00 Acute erythroid leukemia, not having achieved remission (principal); D61.818 Other pancytopenia; D70.9 Neutropenia, unspecified; E78.5 Hyperlipidemia, unspecified; E11.9 Type 2 diabetes mellitus without complications; F17.200 Nicotine dependence, unspecified, uncomplicated; G40.909 Epilepsy, unspecified, not intractable, without status epilepticus; I10 Essential (primary) hypertension; F32.9 Major depressive disorder, single episode, unspecified; K64.9 Unspecified hemorrhoids; M19.90 Unspecified osteoarthritis, unspecified site; Z96.651 Presence of right artificial knee joint; Z79.84 Long term (current) use of oral hypoglycemic drugs; J45.909 Unspecified asthma, uncomplicated; Z79.899 Other long term (current) drug therapy; Z99.89 Dependence on other enabling machines and devices; I25.2 Old myocardial infarction; Z95.5 Presence of coronary angioplasty implant and graft; Z98.890 Other specified postprocedural states; Z80.1 Family history of malignant neoplasm of trachea, bronchus and lung; Z82.49 Family history of ischemic heart disease and other diseases of the circulatory system; Z83.3 Family history of diabetes mellitus; Z88.8 Allergy status to other drugs, medicaments and biological substances; Z91.018 Allergy to other foods; Z91.09 Other allergy status, other than to drugs and biological substances; Z88.1 Allergy status to other antibiotic agents; Z82.5 Family history of asthma and other chronic lower respiratory diseases; Z87.442 Personal history of urinary calculi
CPT/HCPCS: 36430; 36573; 71046; 80053; 81003; 83036; 83615; 83735; 84100; 84145; 84550; 85025; 85027; 85610; 86140; 86850; 86880; 86900; 86901; 86920; 87040; 87502; 94640

== ENCOUNTER 2019-09-01 20:33 | Inpatient (IN) | payer MEDICARE, OTHER ==
[2019-09-01] MEDS ORDERED: ACETAMINOPHEN TAB 500 MG TAB PO STA (20:34)
[2019-09-01] MEDS ORDERED: VANCOMYCIN IV PER PHARMACY 1 EACH MISC MISCELLANE PRN (20:56)
[2019-09-01] MEDS ORDERED: CEFEPIME 2 GM in SODIUM CHLORIDE 0.9% 100 ML IVPB STA (20:56)
[2019-09-01] MEDS: SODIUM CHLORIDE 0.9% 500 ML 500 ML IV SCH ×2 (21:00→21:08)
--- NOTE | 2019-09-01 21:09 | ED ---
General Adult HPI - General Chief complaint: Fever Stated complaint: Fever Time Seen by Provider: 09/01/19 20:34 Source: patient, EMS Mode of arrival: EMS Limitations: no limitations - History of Present Illness Initial comments: Dictation was produced using [employer] dictation software. please excuse any grammatical, word or spelling errors. This patient was cared for during a federal and state declared state of emergency secondary to Covid 19 Chief Complaint: 48 yo male past mental history of leukemia on chemotherapy presents with fever History of Present Illness: Is a 48-year-old male who has past medical history of leukemia. Patient has a PICC line that was placed 2 weeks ago. He gets IV chemotherapy. Patient states that over the last 48 hours she's been having fever and chills. Denies any shortness of breath. No headache. No urinary symptoms. No abdominal pain. Patient was instructed to come to the emergency department earlier however he refused because of the current pandemic. Patient otherwise feels well. He contacted EMS and was brought to the emergency department. Patient states the last time he uses PICC line was last week and is working fine. The ROS documented in this emergency department record has been reviewed and confirmed by me. Those systems with pertinent positive or negative responses have been documented in the HPI. All other systems are other negative and/or noncontributory. PHYSICAL EXAM: General Impression: Alert and oriented x3, not in acute distress HEENT: Normocephalic atraumatic, extra-ocular movements intact, pupils equal and reactive to light bilaterally, mucous membranes moist. Cardiovascular: Heart regular rate and rhythm, S1&S2 audible, no murmurs, rubs or gallops Chest: Able to complete full sentences, no retractions, no tachypnea Abdomen: Bowel sounds present, abdomen soft, non-tender, non-distended, no organomegaly Musculoskeletal: Pulses present and equal in all extremities, no peripheral edema Motor: no focal deficits noted Neurological: CN II-XII grossly intact, no focal motor or sensory deficits noted Skin: Intact with no visualized rashes Psych: Normal affect and mood ED course: 48-year-old male presents with likely bacteremia. Patient started on broad-spectrum antibiotics. Patient otherwise is well-appearing at bedside. He doesn't have any localizing symptoms. Laboratory evaluation obtained. WBCs is 0. Hemoccult was 4.8. Pending platelet count. Coag panel unremarkable. Metabolic panel shows sodium of 132, pleasant of lactic acidosis 2.7. Patient given fluids. Urinalysis unremarkable. Influenza test negative. Chest x-ray shows no acute processes. Click or presentation consistent with leukopenic fever. Patient will be admitted to telemetry with consultation to oncology and infectious disease. EKG interpretation: Ventricular rate 108, sinus tachycardia,. Interval 152, QRS 70, QTc 439. No NH prolongation, no QTC prolongation, no ST or T-wave changes noted. Overall, this EKG is unremarkable - Related Data Home Medications Medication Instructions Recorded Confirmed Montelukast Sodium [Singulair] 10 mg PO HS 06/01/16 09/01/19 Albuterol Inhaler (Bulk) [Ventolin 2 puff INHALATION RT-Q6H PRN 10/15/17 09/01/19 Hfa Inhaler (Bulk)] Beclomethasone Dipropionate [Qvar 2 puff INHALATION RT-BID 10/15/17 09/01/19 80 mcg] Metoprolol Tartrate [Lopressor] 25 mg PO HS 06/03/19 09/01/19 HYDROcodone/APAP 10-325MG [[place] 1 tab PO TID PRN 08/08/19 09/01/19 10-325] Previous Rx's Medication Instructions Recorded Divalproex [Depakote] 500 mg PO BID tablet. 01/27/19 metFORMIN HCL [Glucophage] 500 mg PO PC-SUPPER #0 02/19/19 Zolpidem [Ambien] 5 mg PO HS PRN #30 tab 06/09/19 Venlafaxine HCl [Effexor XR] 150 mg PO HS 30 Days #30 tab 07/09/19 Acyclovir [Zovirax] 400 mg PO BID #60 cap 08/27/19 Baclofen [Lioresal] 5 mg PO BID PRN tab 08/27/19 Doxycycline [Vibramycin] 100 mg PO BID #10 capsule 08/27/19 Voriconazole 100 mg PO DAILY@1130 #30 tab 08/27/19 prednisoLONE ACETATE 1% OPHTH 1 drops BOTH EYES QID ml 08/27/19 [Pred Forte 1%] Allergies Allergy/AdvReac Type Severity Reaction Status Date / Time naproxen [From Naprosyn] Allergy Severe Rash/Hives Verified 09/01/19 21:30 vancomycin Allergy Severe Rash/Hives Verified 09/01/19 21:30 adhesive tape Allergy Intermediate Rash/Hives Verified 09/01/19 21:30 ibuprofen Allergy Intermediate Itching Verified 09/01/19 21:30 mold Allergy Unknown Verified 09/01/19 21:30 carrot AdvReac Severe Dyspnea Verified 09/01/19 21:30 chocolate flavor AdvReac Severe Dyspnea Verified 09/01/19 21:30 grass pollen-perennial rye, AdvReac Intermediate Dyspnea Verified 09/01/19 21:30 standar Review of Systems ROS Statement: Those systems with pertinent positive or pertinent negative responses have been documented in the HPI. ROS Other: All systems not noted in ROS Statement are negative. Past Medical History Past Medical History: Asthma, Cancer, Chest Pain / Angina, Diabetes Mellitus, GERD/Reflux, GI Bleed, Hyperlipidemia, Hypertension, Myocardial Infarction (TX), Musculoskeletal Disorder, Osteoarthritis (OA), Sleep Apnea/CPAP/BIPAP Additional Past Medical History / Comment(s): 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 Last Myocardial Infarction Date:: 2004 History of Any Multi-Drug Resistant Organisms: None Reported Past Surgical History: Heart Catheterization With Stent, Hernia Repair, Joint Replacement Additional Past Surgical History / Comment(s): Bone marrow aspirations/biopsies, right knee arthroscopy X3, right total knee replacement with revision, left knee arthroscopy, cardiac stent X1, stent placed for kidney stone and then removed, COLONOSCOPY, cervical and lumbar neurostimulator implants, left inguinal hernia repair. Past Anesthesia/Blood Transfusion Reactions: No Reported Reaction Additional Past Anesthesia/Blood Transfusion Reaction / Comment(s): Pt has received blood/platelets before with no reaction. Date of Last Stent Placement:: 2004 Past Psychological History: Anxiety, Bipolar, Depression Smoking Status: Current every day smoker Past Alcohol Use History: None Reported Past Drug Use History: None Reported - Past Family History Father Family Medical History: Congestive Heart Failure (CHF), Deep Vein Thrombosis (DVT), Myocardial Infarction (TX), Pulmonary Embolus Additional Family Medical History / Comment(s): TX at age 38. "hole in colon". Mother Family Medical History: Cancer, COPD, Diabetes Mellitus, Hyperlipidemia Additional Family Medical History / Comment(s): Mother had breast and lung cancer. She of lung cancer in her 60s. Sister(s) Family Medical History: Diabetes Mellitus, Liver Disease Additional Family Medical History / Comment(s): Bi-polar, anxiety, hysterectomy, fatty liver. Brother(s) History Unknown: Yes General Exam Limitations: no limitations Course Vital Signs 09/01/19 09/01/19 09/01/19 20:42 21:44 22:07 Temperature 104.4 F H 100 F H Pulse Rate 119 H 102 H Respiratory 20 18 Rate Blood Pressure 107/65 106/54 O2 Sat by Pulse 100 99 Oximetry Medical Decision Making - Lab Data Result diagrams: 09/01/19 21:00 09/01/19 21:00 Lab Results 09/01/19 09/01/19 09/01/19 Range/Units 21:00 21:00 21:00 WBC 0.0 L* (3.8-10.6) k/uL RBC 1.65 L (4.30-5.90) m/uL Hgb 4.8 L* D (13.0-17.5) gm/dL Hct 13.5 L* (39.0-53.0) % MCV 82.0 (80.0-100.0) fL MCH 29.2 (25.0-35.0) pg MCHC 35.6 (31.0-37.0) g/dL RDW 14.0 (11.5-15.5) % PT 11.2 (9.0-12.0) sec INR 1.1 (<1.2) APTT 24.6 (22.0-30.0) sec Sodium 132 L (137-145) mmol/L Potassium 3.9 (3.5-5.1) mmol/L Chloride 101 (98-107) mmol/L Carbon Dioxide 23 (22-30) mmol/L Anion Gap 8 mmol/L BUN 23 H (9-20) mg/dL Creatinine 0.64 L (0.66-1.25) mg/dL Est GFR (CKD-EPI)AfAm >90 (>60 ml/min/1.73 sqM) Est GFR (CKD-EPI)NonAf >90 (>60 ml/min/1.73 sqM) Glucose 197 H (74-99) mg/dL Plasma Lactic Acid Cory (0.7-2.0) mmol/L Calcium 8.3 L (8.4-10.2) mg/dL Total Bilirubin 0.9 (0.2-1.3) mg/dL AST 15 L (17-59) U/L ALT 23 (4-49) U/L Alkaline Phosphatase 64 (38-126) U/L Total Protein 5.6 L (6.3-8.2) g/dL Albumin 3.1 L (3.5-5.0) g/dL Urine Color Urine Appearance (Clear) Urine pH (5.0-8.0) Ur Specific [place] (1.001-1.035) Urine Protein (Negative) Urine Glucose (UA) (Negative) Urine Ketones (Negative) Urine Blood (Negative) Urine Nitrite (Negative) Urine Bilirubin (Negative) Urine Urobilinogen (<2.0) mg/dL Ur Leukocyte Esterase (Negative) Influenza Type A RNA (Not Detectd) Influenza Type B (PCR) (Not Detectd) 09/01/19 09/01/19 09/01/19 Range/Units 21:00 21:00 21:00 WBC (3.8-10.6) k/uL RBC (4.30-5.90) m/uL Hgb (13.0-17.5) gm/dL Hct (39.0-53.0) % MCV (80.0-100.0) fL MCH (25.0-35.0) pg MCHC (31.0-37.0) g/dL RDW (11.5-15.5) % PT (9.0-12.0) sec INR (<1.2) APTT (22.0-30.0) sec Sodium (137-145) mmol/L Potassium (3.5-5.1) mmol/L Chloride (98-107) mmol/L Carbon Dioxide (22-30) mmol/L Anion Gap mmol/L BUN (9-20) mg/dL Creatinine (0.66-1.25) mg/dL Est GFR (CKD-EPI)AfAm (>60 ml/min/1.73 sqM) Est GFR (CKD-EPI)NonAf (>60 ml/min/1.73 sqM) Glucose (74-99) mg/dL Plasma Lactic Acid Cory 2.7 H* (0.7-2.0) mmol/L Calcium (8.4-10.2) mg/dL Total Bilirubin (0.2-1.3) mg/dL AST (17-59) U/L ALT (4-49) U/L Alkaline Phosphatase (38-126) U/L Total Protein (6.3-8.2) g/dL Albumin (3.5-5.0) g/dL Urine Color Yellow Urine Appearance Clear (Clear) Urine pH 5.5 (5.0-8.0) Ur Specific [place] 1.020 (1.001-1.035) Urine Protein Trace H (Negative) Urine Glucose (UA) Negative (Negative) Urine Ketones Negative (Negative) Urine Blood Negative (Negative) Urine Nitrite Negative (Negative) Urine Bilirubin Negative (Negative) Urine Urobilinogen 4.0 (<2.0) mg/dL Ur Leukocyte Esterase Negative (Negative) Influenza Type A RNA Not Detected (Not Detectd) Influenza Type B (PCR) Not Detected (Not Detectd) Disposition Clinical Impression: Sepsis, Pancytopenia Disposition: ADMITTED IP TO THIS HOSP Condition: Fair Referrals: Veronika Dotson MD [Primary Care Provider] - 1-2 days Decision Time: 22:16
[2019-09-01 21:14] LABS: Appearance,Urine Clear (Clear); Bilirubin,Urine Negative (Negative); Blood,Urine Negative (Negative); Color,Urine Yellow; Glucose,Urine (UA) Negative (Negative); Ketones,Urine Negative (Negative); Leukocyte Esterase,Urine Negative (Negative); Nitrite,Urine Negative (Negative); PH, Urine 5.5 (5.0-8.0); Protein,Urine Trace (Negative)
[2019-09-01] MEDS ORDERED: DAPTOmycin 500 MG in SODIUM CHLORIDE 0.9% 50 ML IVPB ONE (21:15)
[2019-09-01 21:24] LABS: INR 1.1 (<1.2); Partial Thromboplastin Time 24.6 sec (22.0-30.0); Prothrombin Time 11.2 sec (9.0-12.0)
--- NOTE | 2019-09-01 21:27 | XR ---
EXAMINATION TYPE: XR chest 1V portable DATE OF EXAM: 09/01/2019 COMPARISON: Chest x-ray August 21, 2019. HISTORY: Fever. TECHNIQUE: Single AP portable frontal upright view of the chest is obtained. FINDINGS: Stable right-sided PICC line. There is no focal air space opacity, pleural effusion, or pne umothorax seen. The cardiac silhouette size is within normal limits. The osseous structures are in tact. Stable midthoracic spinal stimulator device and posterior neck and thoracic stimulator subcutan eous wires. IMPRESSION: No new acute pulmonary process.
[2019-09-01 21:28] LABS: MCH 29.2 pg (25.0-35.0); MCHC 35.6 g/dL (31.0-37.0); Mean Platelet Volume 7.1; RBC 1.65 m/uL (4.30-5.90)
[2019-09-01 21:34] LABS: HCT 13.5 % (39.0-53.0); HGB 4.8 gm/dL (13.0-17.5)
[2019-09-01 21:54] LABS: ALT 23 U/L (4-49); AST 15 U/L (17-59); African American GFR (CKD) >90 (>60 ml/min/1.73 sqM); Albumin 3.1 g/dL (3.5-5.0); Alkaline Phosphatase 64 U/L (38-126); Anion Gap 8 mmol/L; Blood Urea Nitrogen 23 mg/dL (9-20); Calcium 8.3 mg/dL (8.4-10.2); Carbon Dioxide 23 mmol/L (22-30); Chloride 101 mmol/L (98-107); Glucose 197 mg/dL (74-99); Non-African American GFR(CKD) >90 (>60 ml/min/1.73 sqM); Potassium 3.9 mmol/L (3.5-5.1); Sodium 132 mmol/L (137-145); Total Bilirubin 0.9 mg/dL (0.2-1.3); Total Protein 5.6 g/dL (6.3-8.2)
[2019-09-01] MEDS ORDERED: NALOXONE 0.4 MG/ML 1 ML VIAL IV PRN (22:11)
[2019-09-01] MEDS ORDERED: ONDANSETRON 4 MG/2 ML VIAL IVP PRN (22:11)
[2019-09-01] MEDS: SODIUM CHLORIDE 0.9% 1,000 ML IV SCH (22:19)
[2019-09-01 22:23] LABS: Platelet Count 3 k/uL (150-450)
[2019-09-02] MEDS: ACETAMINOPHEN TAB 325 MG TAB PO PRN ×3 (04:34→21:49)
[2019-09-02 06:16] LABS: Glucose,Whole Blood 153 mg/dL (75-99)
[2019-09-02] MEDS: PANTOPRAZOLE 40 MG/10 ML VIAL IV SCH ×2 (06:52→08:20)
[2019-09-02 11:22] LABS: Glucose,Whole Blood 135 mg/dL (75-99)
--- NOTE | 2019-09-02 13:49 | P.CONS ---
History of Present Illness - Reason for Consult Consult date: 09/02/19 pancytopenia Requesting physician: Alfonso Richards - Chief Complaint fever - History of Present Illness Mr. Burnham is a very pleasant 48-year-old male patient of Dr. Rojas'gerry with a history of pancytopenia first noted 02/13. Thought initially was due to marrow suppressing medications, meds adjusted and patient was provided with rescue leucovorin but, counts did not improve. Pt had a repeat admission in late 02/13 with persistently low counts and abdominal pain. Bone marrow biopsy on 02/19/19 was performed by IR as it had to be done under guidance as the [facility] has bilateral spinal cord stimulators over each and iliac crests. Path showed increase in erythroid elements with pronormoblast greater than 50%, consistent with acute erythroid leukemia. He had induction with the 7+ 3 regimen from 03/03-03/10/19. He had repeat bone marrow post count recovery, showing 1-2 % blasts, but persistence of about 90% erythroid elements, 70-80% of the early phase type. Was seen at [facility], and was felt to have failed induction, though surprisingly, his counts had shown marked improvement. He was recommended treatment with Venetoclax/Vidaza preparatory to allo BMT. Another bone marrow to assess response 06/16. This unfortunately did not show any significant respon se. Case was discussed with [facility] who discussed the same at the [facility]. It was recommended that the patient continue on the same regimen. He had recurrent admissions for febrile neutropenia, without any cultures positive, he was transfused PRN. His counts remained poor. His case was again discussed with [facility] transplant team. Unfortunately, due to patient's poor marrow response to treatment, he is currently left with only salvage treatment option in hopes for a marrow response. He is status post first cycle HiDAC. He completed that 5 days ago. Patient is admitted with fevers, intermittent, as high as 102F. Patient denies any oral irritation, sore throat, earache, cough, chest pain, palpitations, nausea or vomiting, abdominal pain, cramping or bloating, hematuria, dysuria, urgency or frequency of urine, diarrhea or constipation, swelling or new/unusual pain. 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 Last Myocardial Infarction Date:: 2004 History of Any Multi-Drug Resistant Organisms: None Reported Past Surgical History: Heart Catheterization With Stent, Hernia Repair, Joint Replacement Additional Past Surgical History / Comment(s): Bone marrow aspirations/biopsies, right knee arthroscopy X3, right total knee replacement with revision, left knee arthroscopy, cardiac stent X1, stent placed for kidney stone and then removed, COLONOSCOPY, cervical and lumbar neurostimulator implants, left inguinal hernia repair. Past Anesthesia/Blood Transfusion Reactions: No Reported Reaction Additional Past Anesthesia/Blood Transfusion Reaction / Comm: Pt has received blood/platelets before with no reaction. Date of Last Stent Placement:: 2004 Past Psychological History: Anxiety, Bipolar, Depression Additional Psychological History / Comment(s): and lives with the and child and sister and brother in law. Medically disabled with neuropathy and bipolar disorder. experience- [employer]. International travel. 1 pet cats in the home instructed not to change the box and 1 dog. Smoking Status: Current every day smoker Past Alcohol Use History: None Reported Additional Past Alcohol Use History / Comment(s): STARTED SMOKING AT AGE 23(1994), Past Drug Use History: None Reported - Past Family History Father Family Medical History: Congestive Heart Failure (CHF), Deep Vein Thrombosis (DVT), Myocardial Infarction ([place]), Pulmonary Embolus Additional Family Medical History / Comment(s): [place] at age 38. "hole in colon". Mother Family Medical History: Cancer, COPD, Diabetes Mellitus, Hyperlipidemia Additional Family Medical History / Comment(s): Mother had breast and lung cancer. She of lung cancer in her 60s. Sister(s) Family Medical History: Diabetes Mellitus, Liver Disease Additional Family Medical History / Comment(s): Bi-polar, anxiety, hysterectomy, fatty liver. Brother(s) History Unknown: Yes Medications and Allergies Home Medications Medication Instructions Recorded Confirmed Type Montelukast Sodium [Singulair] 10 mg PO HS 06/01/16 09/01/19 History Albuterol Inhaler (Bulk) [Ventolin 2 puff INHALATION RT-Q6H PRN 10/15/17 09/01/19 History Hfa Inhaler (Bulk)] Beclomethasone Dipropionate [Qvar 2 puff INHALATION RT-BID 10/15/17 09/01/19 History 80 mcg] Divalproex [Depakote] 500 mg PO BID tablet. 01/27/19 09/01/19 Rx metFORMIN HCL [Glucophage] 500 mg PO PC-SUPPER #0 02/19/19 09/01/19 Rx Metoprolol Tartrate [Lopressor] 25 mg PO HS 06/03/19 09/01/19 History Zolpidem [Ambien] 5 mg PO HS PRN #30 tab 06/09/19 09/01/19 Rx Venlafaxine HCl [Effexor XR] 150 mg PO HS 30 Days #30 tab 07/09/19 09/01/19 Rx HYDROcodone/APAP 10-325MG [[place] 1 tab PO TID PRN 08/08/19 09/01/19 History 10-325] Acyclovir [Zovirax] 400 mg PO BID #60 cap 08/27/19 09/01/19 Rx Baclofen [Lioresal] 5 mg PO BID PRN tab 08/27/19 09/01/19 Rx Doxycycline [Vibramycin] 100 mg PO BID #10 capsule 08/27/19 09/01/19 Rx Voriconazole 100 mg PO DAILY@1130 #30 tab 08/27/19 09/01/19 Rx prednisoLONE ACETATE 1% OPHTH 1 drops BOTH EYES QID ml 08/27/19 09/01/19 Rx [Pred Forte 1%] Allergies Allergy/AdvReac Type Severity Reaction Status Date / Time naproxen [From Naprosyn] Allergy Severe Rash/Hives Verified 09/01/19 21:30 vancomycin Allergy Severe Rash/Hives Verified 09/01/19 21:30 adhesive tape Allergy Intermediate Rash/Hives Verified 04/06/20 21:30 ibuprofen Allergy Intermediate Itching Verified 09/01/19 21:30 mold Allergy Unknown Verified 09/01/19 21:30 carrot AdvReac Severe Dyspnea Verified 09/01/19 21:30 chocolate flavor AdvReac Severe Dyspnea Verified 09/01/19 21:30 grass pollen-perennial rye, AdvReac Intermediate Dyspnea Verified 09/01/19 21:30 standar Physical Exam Vitals: Vital Signs Temp Pulse Pulse Resp BP BP Pulse Ox 09/02/19 11:12 102 H 09/02/19 11:09 98.2 F 102 H 18 114/66 100 09/02/19 10:57 98.2 F 102 H 18 114/66 100 09/02/19 10:27 98.2 F 96 104/61 100 09/02/19 10:17 98.1 F 95 18 104/63 09/02/19 08:00 98.2 F 95 18 102/58 100 09/02/19 04:00 102.0 F H 119 H 18 88/43 98 09/02/19 00:00 100.4 F H 125 H 18 93/45 96 09/01/19 23:21 103.3 F H 09/01/19 22:07 102 H 18 106/54 99 09/01/19 21:44 100 F H 09/01/19 20:42 104.4 F H 119 H 20 107/65 100 Intake and Output 09/01/19 09/02/19 09/02/19 22:59 06:59 14:59 Intake Total 310 Output Total 500 Balance -500 310 Intake: Blood Product 310 Rc Irr As1 Unit 310 [id number] Output: Urine 500 Other: Voiding Method Urinal Weight 74.843 kg 81.5 kg - Constitutional General appearance: average body habitus, cooperative, no acute distress - EENT Eyes: anicteric sclerae, EOMI ENT: hearing grossly normal, normal oropharynx - Neck Neck: no lymphadenopathy - Respiratory Respiratory: bilateral: CTA - Cardiovascular Rhythm: regular Heart sounds: normal: S1, S2 Abnormal Heart Sounds: no systolic murmur, no diastolic murmur, no rub, no S3 Gallop, no S4 Gallop, no click, no other leg Peripheral Edema: bilateral: None - Gastrointestinal General gastrointestinal: no absent bowel sounds, no decreased bowel sounds, no distended, no hepatomegaly, no hyperactive bowel sounds, normal bowel sounds, no organomegaly, no rigid, no scaphoid, soft, no splenomegaly, no tenderness, no umbilical hernia, no ventral hernia - Integumentary Integumentary: pale - Neurologic Neurologic: CNII-XII intact - Musculoskeletal Musculoskeletal: generalized weakness, strength equal bilaterally - Psychiatric Psychiatric: A&O x's 3, appropriate affect, intact judgment & insight Results CBC & Chem 7: 09/01/19 21:00 09/01/19 21:00 Labs: Abnormal Lab Results - Last 24 Hours (Table) 09/01/19 09/01/19 09/01/19 Range/Units 21:00 21:00 21:00 WBC 0.0 L* (3.8-10.6) k/uL RBC 1.65 L (4.30-5.90) m/uL Hgb 4.8 L* D (13.0-17.5) gm/dL Hct 13.5 L* (39.0-53.0) % Plt Count 3 L* D (150-450) k/uL Sodium 132 L (137-145) mmol/L BUN 23 H (9-20) mg/dL Creatinine 0.64 L (0.66-1.25) mg/dL Glucose 197 H (74-99) mg/dL POC Glucose (mg/dL) (75-99) mg/dL Plasma Lactic Acid Cory 2.7 H* (0.7-2.0) mmol/L Calcium 8.3 L (8.4-10.2) mg/dL AST 15 L (17-59) U/L Total Protein 5.6 L (6.3-8.2) g/dL Albumin 3.1 L (3.5-5.0) g/dL Urine Protein (Negative) Crossmatch 09/01/19 09/01/19 09/02/19 Range/Units 21:00 21:35 00:59 WBC (3.8-10.6) k/uL RBC (4.30-5.90) m/uL Hgb (13.0-17.5) gm/dL Hct (39.0-53.0) % Plt Count (150-450) k/uL Sodium (137-145) mmol/L BUN (9-20) mg/dL Creatinine (0.66-1.25) mg/dL Glucose (74-99) mg/dL POC Glucose (mg/dL) (75-99) mg/dL Plasma Lactic Acid Cory 2.6 H* (0.7-2.0) mmol/L Calcium (8.4-10.2) mg/dL AST (17-59) U/L Total Protein (6.3-8.2) g/dL Albumin (3.5-5.0) g/dL Urine Protein Trace H (Negative) Crossmatch See Detail 09/02/19 09/02/19 Range/Units 06:13 11:20 WBC (3.8-10.6) k/uL RBC (4.30-5.90) m/uL Hgb (13.0-17.5) gm/dL Hct (39.0-53.0) % Plt Count (150-450) k/uL Sodium (137-145) mmol/L BUN (9-20) mg/dL Creatinine (0.66-1.25) mg/dL Glucose (74-99) mg/dL POC Glucose (mg/dL) 153 H 135 H (75-99) mg/dL Plasma Lactic Acid Cory (0.7-2.0) mmol/L Calcium (8.4-10.2) mg/dL AST (17-59) U/L Total Protein (6.3-8.2) g/dL Albumin (3.5-5.0) g/dL Urine Protein (Negative) Crossmatch Chest x-ray: report reviewed Assessment and Plan (1) Pancytopenia due to antineoplastic chemotherapy Narrative/Plan: Conservative transfusions with irradiated blood products. Transfuse to keep hemoglobin 7 or higher. Patient is being transfused for hemoglobin of 4.8. Transfuse to keep platelets 10,000 or higher and less symptomatic. Platelet count is 3000 today, 1 unit single donor platelets ordered White blood cell count is 0. Patient is not a confirmed remission, no G-CSF at this time. Current Visit: Yes Status: Acute Priority: High Code(s): D61.810 - ANTINEOPLASTIC CHEMOTHERAPY INDUCED PANCYTOPENIA; T45.1X5A - ADVERSE EFFECT OF ANTINEOPLASTIC AND IMMUNOSUP DRUGS, INIT SNOMED Code(s): 431101836381882 (2) Febrile neutropenia Narrative/Plan: Pancultures pending, empiric antibiotics. ID consult Current Visit: Yes Status: Acute Priority: High Code(s): D70.9 - NEUTROPENIA, UNSPECIFIED; R50.81 - FEVER PRESENTING WITH CONDITIONS CLASSIFIED ELSEWHERE SNOMED Code(s): 313789573 (3) Acute erythroid leukemia Narrative/Plan: Patient is being treated with salvage HiDAC regimen. Unfortunately he has not had an adequate enough marrow response for him to proceed with bone marrow transplant. He is status post the first cycle of this regimen, completed 5 days ago. Typically the bone marrow biopsy to evaluate for response to treatment occurs about 21 days after Tx, pending. Pt is aware of his condition, prognosis and possible outcomes. Current Visit: Yes Status: Chronic Priority: High Code(s): C94.00 - ACUTE ERYTHROID LEUKEMIA, NOT HAVING ACHIEVED REMISSION SNOMED Code(s): 60594997 Plan: Doctor attests: I performed a history and physical examination of this patient, developed impression and plan of care, discussed with dictator. I agree with dictators note, documented as a scribe.
[2019-09-02] MEDS ORDERED: ALBUTEROL HFA INHALER INHALATION PRN (14:19)
[2019-09-02] MEDS ORDERED: BACLOFEN 10 MG TAB PO PRN (14:19)
--- NOTE | 2019-09-02 14:22 | P.HPIM ---
History of Present Illness H&P Date: 09/02/19 Fransisco Burnham is a 48-year-old male well-known to my practice who presented to [facility] emergency room with a chief complaint of fever. On presentation temperature was 104.4 heart rate was 119, patient has known history of leukemia he just recently received a course of chemotherapy and was discharged home less than 1 week ago, his white blood count on presentation was 0 he was admitted to oncology floor and was started on IV antibiotics, consultation for oncology and infectious disease were initiated. 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 Last Myocardial Infarction Date:: 2004 History of Any Multi-Drug Resistant Organisms: None Reported Past Surgical History: Heart Catheterization With Stent, Hernia Repair, Joint Replacement Additional Past Surgical History / Comment(s): Bone marrow aspirations/biopsies, right knee arthroscopy X3, right total knee replacement with revision, left knee arthroscopy, cardiac stent X1, stent placed for kidney stone and then removed, COLONOSCOPY, cervical and lumbar neurostimulator implants, left inguinal hernia repair. Past Anesthesia/Blood Transfusion Reactions: No Reported Reaction Additional Past Anesthesia/Blood Transfusion Reaction / Comment(s): Pt has received blood/platelets before with no reaction. Date of Last Stent Placement:: 2004 Past Psychological History: Anxiety, Bipolar, Depression Additional Psychological History / Comment(s): and lives with the and child and sister and brother in law. Medically disabled with neuropathy and bipolar disorder. experience- [employer]. International travel. 1 pet cats in the home instructed not to change the box and 1 dog. Smoking Status: Current every day smoker Past Alcohol Use History: None Reported Additional Past Alcohol Use History / Comment(s): STARTED SMOKING AT AGE 23(1994), Past Drug Use History: None Reported - Past Family History Father Family Medical History: Congestive Heart Failure (CHF), Deep Vein Thrombosis (DVT), Myocardial Infarction ([place]), Pulmonary Embolus Additional Family Medical History / Comment(s): [place] at age 38. "hole in colon". Mother Family Medical History: Cancer, COPD, Diabetes Mellitus, Hyperlipidemia Additional Family Medical History / Comment(s): Mother had breast and lung cancer. She of lung cancer in her 60s. Sister(s) Family Medical History: Diabetes Mellitus, Liver Disease Additional Family Medical History / Comment(s): Bi-polar, anxiety, hysterectomy, fatty liver. Brother(s) History Unknown: Yes Medications and Allergies Home Medications Medication Instructions Recorded Confirmed Type Montelukast Sodium [Singulair] 10 mg PO HS 06/01/16 09/01/19 History Albuterol Inhaler (Bulk) [Ventolin 2 puff INHALATION RT-Q6H PRN 10/15/17 09/01/19 History Hfa Inhaler (Bulk)] Beclomethasone Dipropionate [Qvar 2 puff INHALATION RT-BID 10/15/17 09/01/19 History 80 mcg] Divalproex [Depakote] 500 mg PO BID tablet. 01/27/19 09/01/19 Rx metFORMIN HCL [Glucophage] 500 mg PO PC-SUPPER #0 02/19/19 09/01/19 Rx Metoprolol Tartrate [Lopressor] 25 mg PO HS 06/03/19 09/01/19 History Zolpidem [Ambien] 5 mg PO HS PRN #30 tab 06/09/19 09/01/19 Rx Venlafaxine HCl [Effexor XR] 150 mg PO HS 30 Days #30 tab 07/09/19 09/01/19 Rx HYDROcodone/APAP 10-325MG [[place] 1 tab PO TID PRN 08/08/19 09/01/19 History 10-325] Acyclovir [Zovirax] 400 mg PO BID #60 cap 08/27/19 09/01/19 Rx Baclofen [Lioresal] 5 mg PO BID PRN tab 08/27/19 09/01/19 Rx Doxycycline [Vibramycin] 100 mg PO BID #10 capsule 08/27/19 09/01/19 Rx Voriconazole 100 mg PO DAILY@1130 #30 tab 08/27/19 09/01/19 Rx prednisoLONE ACETATE 1% OPHTH 1 drops BOTH EYES QID ml 08/27/19 09/01/19 Rx [Pred Forte 1%] Allergies Allergy/AdvReac Type Severity Reaction Status Date / Time naproxen [From Naprosyn] Allergy Severe Rash/Hives Verified 09/01/19 21:30 vancomycin Allergy Severe Rash/Hives Verified 09/01/19 21:30 adhesive tape Allergy Intermediate Rash/Hives Verified 09/01/19 21:30 ibuprofen Allergy Intermediate Itching Verified 09/01/19 21:30 mold Allergy Unknown Verified 09/01/19 21:30 carrot AdvReac Severe Dyspnea Verified 09/01/19 21:30 chocolate flavor AdvReac Severe Dyspnea Verified 09/01/19 21:30 grass pollen-perennial rye, AdvReac Intermediate Dyspnea Verified 09/01/19 21:30 standar Physical Exam Vitals: Vital Signs Temp Pulse Pulse Resp BP BP Pulse Ox 09/02/19 13:31 99.2 F 108/75 09/02/19 13:03 99 F 103 H 18 102/62 09/02/19 12:53 99.2 F 100 102/68 09/02/19 12:06 99.3 F 18 106/73 09/02/19 11:12 102 H 09/02/19 11:09 98.2 F 102 H 18 114/66 100 09/02/19 10:57 98.2 F 102 H 18 114/66 100 09/02/19 10:27 98.2 F 96 104/61 100 09/02/19 10:17 98.1 F 95 18 104/63 09/02/19 08:00 98.2 F 95 18 102/58 100 09/02/19 04:00 102.0 F H 119 H 18 88/43 98 09/02/19 00:00 100.4 F H 125 H 18 93/45 96 09/01/19 23:21 103.3 F H 09/01/19 22:07 102 H 18 106/54 99 09/01/19 21:44 100 F H 09/01/19 20:42 104.4 F H 119 H 20 107/65 100 Intake and Output 09/01/19 09/02/19 09/02/19 22:59 06:59 14:59 Intake Total 618 Output Total 500 Balance -500 618 Intake: Blood Product 618 Platelet Irr Pheresis 2 308 Acda Unit [id number] Rc Irr As1 Unit 310 [id number] Output: Urine 500 Other: Voiding Method Urinal Weight 74.843 kg 81.5 kg 81.5 kg In general patient is alert and oriented 3 in no apparent distress HEENT head normocephalic and atraumatic Neck is supple no JVD no goiter no lymphadenopathy Chest exam reveals a few scattered crackles no wheezing Cardiac exam reveals regular heart sounds no gallops no murmurs Abdomen is soft nontender no organomegaly with normal bowel sounds Extremity exam reveals no edema no cyanosis or clubbing Neurological examination reveals no gross focal neurological deficit Results CBC & Chem 7: 09/01/19 21:00 09/01/19 21:00 Labs: Abnormal Lab Results - Last 24 Hours (Table) 09/01/19 09/01/19 09/01/19 Range/Units 21:00 21:00 21:00 WBC 0.0 L* (3.8-10.6) k/uL RBC 1.65 L (4.30-5.90) m/uL Hgb 4.8 L* D (13.0-17.5) gm/dL Hct 13.5 L* (39.0-53.0) % Plt Count 3 L* D (150-450) k/uL Sodium 132 L (137-145) mmol/L BUN 23 H (9-20) mg/dL Creatinine 0.64 L (0.66-1.25) mg/dL Glucose 197 H (74-99) mg/dL POC Glucose (mg/dL) (75-99) mg/dL Plasma Lactic Acid Cory 2.7 H* (0.7-2.0) mmol/L Calcium 8.3 L (8.4-10.2) mg/dL AST 15 L (17-59) U/L Total Protein 5.6 L (6.3-8.2) g/dL Albumin 3.1 L (3.5-5.0) g/dL Urine Protein (Negative) Crossmatch 09/01/19 09/01/19 09/02/19 Range/Units 21:00 21:35 00:59 WBC (3.8-10.6) k/uL RBC (4.30-5.90) m/uL Hgb (13.0-17.5) gm/dL Hct (39.0-53.0) % Plt Count (150-450) k/uL Sodium (137-145) mmol/L BUN (9-20) mg/dL Creatinine (0.66-1.25) mg/dL Glucose (74-99) mg/dL POC Glucose (mg/dL) (75-99) mg/dL Plasma Lactic Acid Cory 2.6 H* (0.7-2.0) mmol/L Calcium (8.4-10.2) mg/dL AST (17-59) U/L Total Protein (6.3-8.2) g/dL Albumin (3.5-5.0) g/dL Urine Protein Trace H (Negative) Crossmatch See Detail 09/02/19 09/02/19 Range/Units 06:13 11:20 WBC (3.8-10.6) k/uL RBC (4.30-5.90) m/uL Hgb (13.0-17.5) gm/dL Hct (39.0-53.0) % Plt Count (150-450) k/uL Sodium (137-145) mmol/L BUN (9-20) mg/dL Creatinine (0.66-1.25) mg/dL Glucose (74-99) mg/dL POC Glucose (mg/dL) 153 H 135 H (75-99) mg/dL Plasma Lactic Acid Cory (0.7-2.0) mmol/L Calcium (8.4-10.2) mg/dL AST (17-59) U/L Total Protein (6.3-8.2) g/dL Albumin (3.5-5.0) g/dL Urine Protein (Negative) Crossmatch Thrombosis Risk Factor Assmnt - Choose All That Apply Any of the Below Risk Factors Present?: Yes Each Factor Represents 1 point: Age 41-60 years Other Risk Factors: Yes Each Risk Factor Represents 2 Points: Malignancy Thrombosis Risk Factor Assessment Total Risk Factor Score: 3 Thrombosis Risk Factor Assessment Level: Moderate Risk Assessment and Plan Plan: #1 febrile illness with neutropenia, source of infection is not entirely clear at this time influenza A and B were negative urine analysis without any evidence of urinary tract infection, blood culture is pending. #2 acute erythroid leukemia, patient received chemotherapy at [facility] and was discharged home less than 1 week ago #3 anemia hemoglobin on presentation 4.8 RBC transfusion ordered by oncology #4 thrombocytopenia platelet count is down to 3 no evidence of bleeding at this time #5 lactic acidosis, on presentation lactic acid level was 2.7 down to 1.3, continue IV hydration and IV antibiotics. #6 underlying history of diabetes mellitus maintained on metformin continue #7 underlying history of hypertension maintained on metoprolol continue #8 underlying history of depression maintained on Effexor continue. At this time home medication reviewed and reordered Continue with IV antibiotics and IV hydration RBC transfusion was ordered by hematology Consultation for hematology oncology and infectious disease are initiated Will follow closely
[2019-09-02] MEDS: metFORMIN 500 MG TAB PO SCH (15:32)
[2019-09-02] MEDS: CEFEPIME 2 GM in SODIUM CHLORIDE 0.9% 100 ML IVPB SCH (15:32)
[2019-09-02] MEDS: prednisoLONE ACETATE 1% OPHTH DROPS 5 ML BTL BOTH EYES SCH ×2 (15:33→17:02)
[2019-09-02 15:35] LABS: MCH 29.3 pg (25.0-35.0); MCHC 35.1 g/dL (31.0-37.0); MCV 83.4 fL (80.0-100.0); Mean Platelet Volume 14.8; RBC 1.46 m/uL (4.30-5.90); RDW 13.6 % (11.5-15.5)
[2019-09-02 15:41] LABS: HGB 4.3 gm/dL (13.0-17.5)
[2019-09-02 15:52] LABS: HCT 12.2 % (39.0-53.0)
[2019-09-02 15:53] LABS: Platelet Count 2 k/uL (150-450)
[2019-09-02 15:56] LABS: WBC 0.1 k/uL (3.8-10.6)
[2019-09-02 16:18] LABS: Glucose,Whole Blood 134 mg/dL (75-99)
[2019-09-02] MEDS ORDERED: FLUTICASONE 110 MCG INHALER INHALATION SCH (20:00)
[2019-09-02] MEDS ORDERED: FLUTICASONE 110 MCG INHALER (MHU) INHALATION SCH (20:11)
[2019-09-02 20:29] LABS: Glucose,Whole Blood 148 mg/dL (75-99)
[2019-09-02 20:52] LABS: C Reactive Protein 237.1 mg/L (<10.0)
[2019-09-02] MEDS: METOPROLOL TARTRATE 25 MG TAB PO SCH (21:50)
[2019-09-02] MEDS: MONTELUKAST 10 MG TAB PO SCH (21:50)
[2019-09-02] MEDS: ACYCLOVIR 200 MG CAP PO SCH (21:50)
[2019-09-02] MEDS: DIVALPROEX 500 MG TABLET.DR PO SCH (21:50)
[2019-09-02 22:54] LABS: MCV 82.9 fL (80.0-100.0); Mean Platelet Volume 10.9; RBC 1.73 m/uL (4.30-5.90); RDW 13.4 % (11.5-15.5)
[2019-09-02 23:06] LABS: HCT 14.4 % (39.0-53.0); WBC 0.1 k/uL (3.8-10.6)
[2019-09-02 23:11] LABS: Platelet Count 8 k/uL (150-450)
[2019-09-02] MEDS: DAPTOmycin 500 MG in SODIUM CHLORIDE 0.9% 50 ML IVPB SCH (23:22)
[2019-09-02] MEDS: VENLAFAXINE HCL ER 150 MG CAP PO SCH (23:22)
[2019-09-02] MEDS: ZOLPIDEM 5 MG TAB PO PRN (23:26)
--- NOTE | 2019-09-02 23:44 | P.CONS ---
History of Present Illness - Reason for Consult Consult date: 09/02/19 Febrile neutropenia Requesting physician: Veronika Dotson - Chief Complaint Fever x 2 days - History of Present Illness Patient is a 48-year male with a past medical his significant for erythroid leukemia in this patient who recently did have a chemo patient was in the hospital for extended period of time and after stabilization discharged home patient now coming back to the ER yesterday with a chief complaint of fever of 2 days duration patient be complaining of fever for the last 2 days the patient denies any headache or URI symptoms denies any chest pain or shortness of breath or cough no nausea no vomiting no abdominal pain no diarrhea on arrival to the ER the patient did have a fever of 104.4 days following right patient was tachycardic he was noticed to have white count of 0.1 platelet count of 2 patient did have a UA that has been negative influenza PCR was negative chest x- ray reported negative he did receive a dose of daptomycin and cefepime in the ER and has been admitted to hospital infectious was consulted for further recommendation regarding my therapy patient did have a right arm PICC line with there for couple of weeks now patient mention they are unable to flush it or draw any blood from it. 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 Last Myocardial Infarction Date:: 2004 History of Any Multi-Drug Resistant Organisms: None Reported Past Surgical History: Heart Catheterization With Stent, Hernia Repair, Joint Replacement Additional Past Surgical History / Comment(s): Bone marrow aspirations/biopsies, right knee arthroscopy X3, right total knee replacement with revision, left knee arthroscopy, cardiac stent X1, stent placed for kidney stone and then removed, COLONOSCOPY, cervical and lumbar neurostimulator implants, left inguinal hernia repair. Past Anesthesia/Blood Transfusion Reactions: No Reported Reaction Additional Past Anesthesia/Blood Transfusion Reaction / Comm: Pt has received blood/platelets before with no reaction. Date of Last Stent Placement:: 2004 Past Psychological History: Anxiety, Bipolar, Depression Additional Psychological History / Comment(s): and lives with the and child and sister and brother in law. Medically disabled with neuropathy and bipolar disorder. experience- [place]. International travel. 1 pet cats in the home instructed not to change the box and 1 dog. Smoking Status: Current every day smoker Past Alcohol Use History: None Reported Additional Past Alcohol Use History / Comment(s): STARTED SMOKING AT AGE 23(1994), Past Drug Use History: None Reported - Past Family History Father Family Medical History: Congestive Heart Failure (CHF), Deep Vein Thrombosis (DVT), Myocardial Infarction (LA), Pulmonary Embolus Additional Family Medical History / Comment(s): LA at age 38. "hole in colon". Mother Family Medical History: Cancer, COPD, Diabetes Mellitus, Hyperlipidemia Additional Family Medical History / Comment(s): Mother had breast and lung cancer. She of lung cancer in her 60s. Sister(s) Family Medical History: Diabetes Mellitus, Liver Disease Additional Family Medical History / Comment(s): Bi-polar, anxiety, hysterectomy, fatty liver. Brother(s) History Unknown: Yes Medications and Allergies Home Medications Medication Instructions Recorded Confirmed Type Montelukast Sodium [Singulair] 10 mg PO HS 06/01/16 09/01/19 History Albuterol Inhaler (Bulk) [Ventolin 2 puff INHALATION RT-Q6H PRN 10/15/17 09/01/19 History Hfa Inhaler (Bulk)] Beclomethasone Dipropionate [Qvar 2 puff INHALATION RT-BID 10/15/17 09/01/19 History 80 mcg] Divalproex [Depakote] 500 mg PO BID tablet. 01/27/19 09/01/19 Rx metFORMIN HCL [Glucophage] 500 mg PO PC-SUPPER #0 02/19/19 09/01/19 Rx Metoprolol Tartrate [Lopressor] 25 mg PO HS 06/03/19 09/01/19 History Zolpidem [Ambien] 5 mg PO HS PRN #30 tab 06/09/19 09/01/19 Rx Venlafaxine HCl [Effexor XR] 150 mg PO HS 30 Days #30 tab 07/09/19 09/01/19 Rx HYDROcodone/APAP 10-325MG [Clyde 1 tab PO TID PRN 08/08/19 09/01/19 History 10-325] Acyclovir [Zovirax] 400 mg PO BID #60 cap 08/27/19 09/01/19 Rx Baclofen [Lioresal] 5 mg PO BID PRN tab 08/27/19 09/01/19 Rx Doxycycline [Vibramycin] 100 mg PO BID #10 capsule 08/27/19 09/01/19 Rx Voriconazole 100 mg PO DAILY@1130 #30 tab 08/27/19 09/01/19 Rx prednisoLONE ACETATE 1% OPHTH 1 drops BOTH EYES QID ml 08/27/19 09/01/19 Rx [Pred Forte 1%] Allergies Allergy/AdvReac Type Severity Reaction Status Date / Time naproxen [From Naprosyn] Allergy Severe Rash/Hives Verified 09/01/19 21:30 vancomycin Allergy Severe Rash/Hives Verified 09/01/19 21:30 adhesive tape Allergy Intermediate Rash/Hives Verified 09/01/19 21:30 ibuprofen Allergy Intermediate Itching Verified 09/01/19 21:30 mold Allergy Unknown Verified 09/01/19 21:30 carrot AdvReac Severe Dyspnea Verified 09/01/19 21:30 chocolate flavor AdvReac Severe Dyspnea Verified 09/01/19 21:30 grass pollen-perennial rye, AdvReac Intermediate Dyspnea Verified 09/01/19 21:30 standar Physical Exam Vitals: Vital Signs Temp Pulse Pulse Resp BP BP Pulse Ox 09/02/19 17:22 98.6 F 90 118/66 09/02/19 16:00 93 09/02/19 14:52 98.9 F 93 18 96/56 100 09/02/19 13:31 99.2 F 108/75 09/02/19 13:03 99 F 103 H 18 102/62 09/02/19 12:53 99.2 F 100 102/68 09/02/19 12:06 99.3 F 18 106/73 09/02/19 11:12 102 H 09/02/19 11:09 98.2 F 102 H 18 114/66 100 09/02/19 10:57 98.2 F 102 H 18 114/66 100 09/02/19 10:27 98.2 F 96 104/61 100 09/02/19 10:17 98.1 F 95 18 104/63 09/02/19 08:00 98.2 F 95 18 102/58 100 09/02/19 04:00 102.0 F H 119 H 18 88/43 98 09/02/19 00:00 100.4 F H 125 H 18 93/45 96 09/01/19 23:21 103.3 F H 09/01/19 22:07 102 H 18 106/54 99 09/01/19 21:44 100 F H 09/01/19 20:42 104.4 F H 119 H 20 107/65 100 Intake and Output 09/02/19 09/02/19 09/02/19 06:59 14:59 22:59 Intake Total 618 0 Output Total 500 Balance -500 618 0 Intake: Blood Product 618 0 Platelet Irr Pheresis 2 308 Acda Unit [id number] Rc Irr As1 Unit 310 [id number] Rc Irr As1 Unit 0 [id number] Output: Urine 500 Other: Voiding Method Urinal Weight 81.5 kg 81.5 kg GENERAL DESCRIPTION: Middle-aged male lying in bed, no distress. No tachypnea or accessory muscle of respiration use. HEENT: Shows Pallor , no scleral icterus. Oral mucous membrane is dry. NECK: Trachea central, no thyromegaly. LUNGS: Unlabored breathing. Clear to auscultation anteriorly. No wheeze or crackle. HEART: S1, S2, regular rate and rhythm. ABDOMEN: Soft, no tenderness , guarding or rigidity EXTREMITIES: No edema of feet. SKIN: No rash, no masses palpable. NEUROLOGICAL: The patient is awake, alert, oriented x3, mood and affect normal. Results CBC & Chem 7: 09/02/19 22:32 09/01/19 21:00 Labs: Abnormal Lab Results - Last 24 Hours (Table) 09/01/19 09/01/19 09/01/19 Range/Units 21:00 21:00 21:00 WBC 0.0 L* (3.8-10.6) k/uL RBC 1.65 L (4.30-5.90) m/uL Hgb 4.8 L* D (13.0-17.5) gm/dL Hct 13.5 L* (39.0-53.0) % Plt Count 3 L* D (150-450) k/uL Sodium 132 L (137-145) mmol/L BUN 23 H (9-20) mg/dL Creatinine 0.64 L (0.66-1.25) mg/dL Glucose 197 H (74-99) mg/dL POC Glucose (mg/dL) (75-99) mg/dL Plasma Lactic Acid Cory 2.7 H* (0.7-2.0) mmol/L Calcium 8.3 L (8.4-10.2) mg/dL AST 15 L (17-59) U/L Total Protein 5.6 L (6.3-8.2) g/dL Albumin 3.1 L (3.5-5.0) g/dL Urine Protein (Negative) Crossmatch 09/01/19 09/01/19 09/02/19 Range/Units 21:00 21:35 00:59 WBC (3.8-10.6) k/uL RBC (4.30-5.90) m/uL Hgb (13.0-17.5) gm/dL Hct (39.0-53.0) % Plt Count (150-450) k/uL Sodium (137-145) mmol/L BUN (9-20) mg/dL Creatinine (0.66-1.25) mg/dL Glucose (74-99) mg/dL POC Glucose (mg/dL) (75-99) mg/dL Plasma Lactic Acid Cory 2.6 H* (0.7-2.0) mmol/L Calcium (8.4-10.2) mg/dL AST (17-59) U/L Total Protein (6.3-8.2) g/dL Albumin (3.5-5.0) g/dL Urine Protein Trace H (Negative) Crossmatch See Detail 09/02/19 09/02/19 09/02/19 Range/Units 06:13 11:20 15:06 WBC 0.1 L* (3.8-10.6) k/uL RBC 1.46 L (4.30-5.90) m/uL Hgb 4.3 L* (13.0-17.5) gm/dL Hct 12.2 L* (39.0-53.0) % Plt Count 2 L* (150-450) k/uL Sodium (137-145) mmol/L BUN (9-20) mg/dL Creatinine (0.66-1.25) mg/dL Glucose (74-99) mg/dL POC Glucose (mg/dL) 153 H 135 H (75-99) mg/dL Plasma Lactic Acid Cory (0.7-2.0) mmol/L Calcium (8.4-10.2) mg/dL AST (17-59) U/L Total Protein (6.3-8.2) g/dL Albumin (3.5-5.0) g/dL Urine Protein (Negative) Crossmatch 09/02/19 Range/Units 16:17 WBC (3.8-10.6) k/uL RBC (4.30-5.90) m/uL Hgb (13.0-17.5) gm/dL Hct (39.0-53.0) % Plt Count (150-450) k/uL Sodium (137-145) mmol/L BUN (9-20) mg/dL Creatinine (0.66-1.25) mg/dL Glucose (74-99) mg/dL POC Glucose (mg/dL) 134 H (75-99) mg/dL Plasma Lactic Acid Cory (0.7-2.0) mmol/L Calcium (8.4-10.2) mg/dL AST (17-59) U/L Total Protein (6.3-8.2) g/dL Albumin (3.5-5.0) g/dL Urine Protein (Negative) Crossmatch Assessment and Plan Assessment: -patient presented to the hospital with febrile neutropenia in this patient who did have a history of erythroid leukemia with the last chemo about a week ago now presented to hospital with fever patient did have a white count of 0.1 with severe neutropenia so far no localizing signs or symptoms of infection work-up so far including discussing that was negative urine is negative abdominal sonogram examination influenza testing was negative source could be the right arm PICC line which is currently nonfunctioning (1) Febrile neutropenia Current Visit: Yes Status: Acute Priority: High Code(s): D70.9 - NEUTROPENIA, UNSPECIFIED; R50.81 - FEVER PRESENTING WITH CONDITIONS CLASSIFIED ELSEWHERE SNOMED Code(s): 365947988 Plan: 1-we will obtain nasopharyngeal swab for COVID-19 testing 2- Start the patient cefepime 2 g every 8 hour 3-daptomycin 6 mg/kg daily 4-discontinue right arm PICC line which is malfunctioning sensitive for the culture We will follow on clinical condition and cultures to further adjust medication if needed Thank you Time with Patient: Greater than 30
[2019-09-03 06:30] LABS: Glucose,Whole Blood 139 mg/dL (75-99)
[2019-09-03] MEDS: prednisoLONE ACETATE 1% OPHTH DROPS 5 ML BTL BOTH EYES SCH ×5 (06:39→22:04)
[2019-09-03 08:01] LABS: MCH 29.6 pg (25.0-35.0); MCHC 35.8 g/dL (31.0-37.0); MCV 82.9 fL (80.0-100.0); Mean Platelet Volume 10.3; RBC 2.11 m/uL (4.30-5.90); RDW 13.2 % (11.5-15.5)
[2019-09-03 08:16] LABS: HGB 6.2 gm/dL (13.0-17.5); WBC 0.1 k/uL (3.8-10.6)
[2019-09-03 08:17] LABS: HCT 17.5 % (39.0-53.0); Platelet Count 15 k/uL (150-450)
[2019-09-03 08:42] LABS: ALT 26 U/L (4-49); AST 17 U/L (17-59); African American GFR (CKD) >90 (>60 ml/min/1.73 sqM); Alkaline Phosphatase 57 U/L (38-126); Anion Gap 8 mmol/L; Blood Urea Nitrogen 14 mg/dL (9-20); Calcium 8.4 mg/dL (8.4-10.2); Carbon Dioxide 23 mmol/L (22-30); Chloride 104 mmol/L (98-107); Glucose 108 mg/dL (74-99); Non-African American GFR(CKD) >90 (>60 ml/min/1.73 sqM); Sodium 135 mmol/L (137-145); Total Protein 5.6 g/dL (6.3-8.2)
[2019-09-03] MEDS: CEFEPIME 2 GM in SODIUM CHLORIDE 0.9% 100 ML IVPB SCH ×5 (09:09→23:56)
[2019-09-03] MEDS: ACYCLOVIR 200 MG CAP PO SCH ×2 (09:10→21:02)
[2019-09-03] MEDS: DIVALPROEX 500 MG TABLET.DR PO SCH ×2 (09:10→21:02)
[2019-09-03] MEDS: PANTOPRAZOLE 40 MG/10 ML VIAL IV SCH (09:12)
[2019-09-03 10:45] LABS: Poikilocytosis (M) Present
[2019-09-03 11:47] LABS: Glucose,Whole Blood 116 mg/dL (75-99)
[2019-09-03] MEDS: SODIUM CHLORIDE 0.9% 1,000 ML IV SCH (12:38)
[2019-09-03] MEDS: VORICONAZOLE 200 MG TAB PO SCH (12:42)
--- NOTE | 2019-09-03 13:30 | P.PN ---
Subjective Progress Note Date: 09/03/19 Fransisco Burnham is a 48-year-old male well-known to my practice who presented to [facility] emergency room with a chief complaint of fever. On presentation temperature was 104.4 heart rate was 119, patient has known history of leukemia he just recently received a course of chemotherapy and was discharged home less than 1 week ago, his white blood count on presentation was 0 he was admitted to oncology floor and was started on IV antibiotics, consultation for oncology and infectious disease were initiated. On 09/03/2019 patient was seen and examined on the medical floor he is alert and oriented 3 in no apparent distress, there is no fever or chills no headache or dizziness no chest pain no shortness of breath no cough no nausea or vomiting no abdominal pain no diarrhea and no urinary symptoms. Patient remains on IV antibiotic, he remains neutropenic at this time Objective - Vital Signs Vital signs: Vital Signs Temp 98.8 F 09/03/19 06:36 Pulse 93 09/03/19 06:36 Resp 18 09/03/19 06:36 BP 115/54 09/03/19 06:36 Pulse Ox 99 09/03/19 06:36 Intake & Output 09/02/19 09/03/19 09/03/19 18:59 06:59 18:59 Intake Total 618 927 240 Output Total 2500 Balance 618 -1573 240 Weight 81.5 kg 83.5 kg Intake: Oral 240 Blood Product 618 927 Platelet Irr Pheresis 2 308 Acda Unit [id number] Platelet Irr Pheresis 307 Acda1 Unit [id number] Rc Irr As1 Unit 310 [id number] Rc Irr As1 Unit 310 [id number] Rc Irr As1 Unit 0 310 [id number] Output: Urine 2500 Other: Voiding Method Urinal - Exam In general patient is alert and oriented 3 in no apparent distress HEENT head normocephalic and atraumatic Neck is supple no JVD no goiter no lymphadenopathy Chest exam reveals a few scattered crackles no wheezing Cardiac exam reveals regular heart sounds no gallops no murmurs Abdomen is soft nontender no organomegaly with normal bowel sounds Extremity exam reveals no edema no cyanosis or clubbing Neurological examination reveals no gross focal neurological deficit - Labs CBC & Chem 7: 09/03/19 07:36 09/03/19 07:36 Labs: Abnormal Lab Results - Last 24 Hours (Table) 09/01/19 09/02/19 09/02/19 Range/Units 21:35 05:54 05:54 WBC (3.8-10.6) k/uL RBC (4.30-5.90) m/uL Hgb (13.0-17.5) gm/dL Hct (39.0-53.0) % Plt Count (150-450) k/uL Sodium (137-145) mmol/L Creatinine (0.66-1.25) mg/dL Glucose (74-99) mg/dL POC Glucose (mg/dL) (75-99) mg/dL Lactate Dehydrogenase 256 L (313-618) U/L C-Reactive Protein 237.1 H (<10.0) mg/L Total Protein (6.3-8.2) g/dL Albumin (3.5-5.0) g/dL Procalcitonin 8.93 H (0.02-0.09) ng/mL Crossmatch See Detail 09/02/19 09/02/19 09/02/19 Range/Units 11:20 15:06 16:17 WBC 0.1 L* (3.8-10.6) k/uL RBC 1.46 L (4.30-5.90) m/uL Hgb 4.3 L* (13.0-17.5) gm/dL Hct 12.2 L* (39.0-53.0) % Plt Count 2 L* (150-450) k/uL Sodium (137-145) mmol/L Creatinine (0.66-1.25) mg/dL Glucose (74-99) mg/dL POC Glucose (mg/dL) 135 H 134 H (75-99) mg/dL Lactate Dehydrogenase (313-618) U/L C-Reactive Protein (<10.0) mg/L Total Protein (6.3-8.2) g/dL Albumin (3.5-5.0) g/dL Procalcitonin (0.02-0.09) ng/mL Crossmatch 09/02/19 09/02/19 09/03/19 Range/Units 20:27 22:32 06:18 WBC 0.1 L* (3.8-10.6) k/uL RBC 1.73 L (4.30-5.90) m/uL Hgb 5.0 L* (13.0-17.5) gm/dL Hct 14.4 L* (39.0-53.0) % Plt Count 8 L* D (150-450) k/uL Sodium (137-145) mmol/L Creatinine (0.66-1.25) mg/dL Glucose (74-99) mg/dL POC Glucose (mg/dL) 148 H 139 H (75-99) mg/dL Lactate Dehydrogenase (313-618) U/L C-Reactive Protein (<10.0) mg/L Total Protein (6.3-8.2) g/dL Albumin (3.5-5.0) g/dL Procalcitonin (0.02-0.09) ng/mL Crossmatch 09/03/19 09/03/19 Range/Units 07:36 07:36 WBC 0.1 L* (3.8-10.6) k/uL RBC 2.11 L (4.30-5.90) m/uL Hgb 6.2 L* (13.0-17.5) gm/dL Hct 17.5 L* (39.0-53.0) % Plt Count 15 L* D (150-450) k/uL Sodium 135 L (137-145) mmol/L Creatinine 0.44 L (0.66-1.25) mg/dL Glucose 108 H (74-99) mg/dL POC Glucose (mg/dL) (75-99) mg/dL Lactate Dehydrogenase (313-618) U/L C-Reactive Protein (<10.0) mg/L Total Protein 5.6 L (6.3-8.2) g/dL Albumin 3.0 L (3.5-5.0) g/dL Procalcitonin (0.02-0.09) ng/mL Crossmatch Microbiology - Last 24 Hours (Table) 09/01/19 20:53 Blood Culture - Preliminary Blood No Growth after 24 hours Assessment and Plan Plan: #1 febrile illness with neutropenia, source of infection is not entirely clear at this time influenza A and B were negative urine analysis without any evidence of urinary tract infection, blood culture is pending. #2 acute erythroid leukemia, patient received chemotherapy at [facility] and was discharged home less than 1 week ago #3 anemia hemoglobin on presentation 4.8 RBC transfusion ordered by oncology #4 thrombocytopenia platelet count is down to 3 no evidence of bleeding at this time #5 lactic acidosis, on presentation lactic acid level was 2.7 down to 1.3, cont inue IV hydration and IV antibiotics. #6 underlying history of diabetes mellitus maintained on metformin continue #7 underlying history of hypertension maintained on metoprolol continue #8 underlying history of depression maintained on Effexor continue. At this time home medication reviewed and reordered Continue with IV antibiotics and IV hydration RBC transfusion was ordered by hematology Consultation for hematology oncology and infectious disease are initiated Will follow closely
--- NOTE | 2019-09-03 13:35 | P.PN ---
Subjective Progress Note Date: 09/03/19 Principal diagnosis: neutropenic fever, pancytopenia secondary to acute erythroid leukemia and treatment for the same Patient denies fever, oral irritation, nausea, vomiting, acute changes in bowel or bladder habits today. He did have some blood when he blew his nose, he was able to stop bleeding. He denies any hematuria, hematochezia, melena. Generalized weakness and fatigue are moderate, no pain to report. Objective - Vital Signs Vital signs: Vital Signs Temp 97.4 F L 09/03/19 08:00 Pulse 91 09/03/19 12:00 Resp 16 09/03/19 12:00 BP 130/62 09/03/19 12:00 Pulse Ox 100 09/03/19 12:00 Intake & Output 09/02/19 09/03/19 09/03/19 18:59 06:59 18:59 Intake Total 618 927 480 Output Total 2500 900 Balance 409 -9764 -939 Weight 81.5 kg 83.5 kg Intake: Oral 480 Blood Product 618 927 Platelet Irr Pheresis 2 308 Acda Unit [id number] Platelet Irr Pheresis 307 Acda1 Unit [id number] Rc Irr As1 Unit 310 [id number] Rc Irr As1 Unit 310 [id number] Rc Irr As1 Unit 0 310 [id number] Output: Urine 2500 900 Other: Voiding Method Urinal Urinal - Constitutional General appearance: Present: average body habitus, cooperative, no acute distress - EENT Eyes: Present: anicteric sclerae, EOMI ENT: Present: hearing grossly normal - Respiratory Respiratory: bilateral: CTA - Cardiovascular Heart sounds: normal: S1, S2 - Peripheral edema leg Peripheral Edema: bilateral: None - Gastrointestinal General gastrointestinal: Present: normal bowel sounds, soft - Integumentary Integumentary: Present: pale - Neurologic Neurologic: Present: CNII-XII intact - Musculoskeletal Musculoskeletal: Present: generalized weakness, strength equal bilaterally - Psychiatric Psychiatric: Present: A&O x's 3, appropriate affect, intact judgment & insight - Labs CBC & Chem 7: 09/03/19 07:36 09/03/19 07:36 Labs: Abnormal Lab Results - Last 24 Hours (Table) 09/01/19 09/02/19 09/02/19 Range/Units 21:35 05:54 05:54 WBC (3.8-10.6) k/uL RBC (4.30-5.90) m/uL Hgb (13.0-17.5) gm/dL Hct (39.0-53.0) % Plt Count (150-450) k/uL Sodium (137-145) mmol/L Creatinine (0.66-1.25) mg/dL Glucose (74-99) mg/dL POC Glucose (mg/dL) (75-99) mg/dL Lactate Dehydrogenase 256 L (313-618) U/L C-Reactive Protein 237.1 H (<10.0) mg/L Total Protein (6.3-8.2) g/dL Albumin (3.5-5.0) g/dL Procalcitonin 8.93 H (0.02-0.09) ng/mL Crossmatch See Detail 09/02/19 09/02/19 09/02/19 Range/Units 15:06 16:17 20:27 WBC 0.1 L* (3.8-10.6) k/uL RBC 1.46 L (4.30-5.90) m/uL Hgb 4.3 L* (13.0-17.5) gm/dL Hct 12.2 L* (39.0-53.0) % Plt Count 2 L* (150-450) k/uL Sodium (137-145) mmol/L Creatinine (0.66-1.25) mg/dL Glucose (74-99) mg/dL POC Glucose (mg/dL) 134 H 148 H (75-99) mg/dL Lactate Dehydrogenase (313-618) U/L C-Reactive Protein (<10.0) mg/L Total Protein (6.3-8.2) g/dL Albumin (3.5-5.0) g/dL Procalcitonin (0.02-0.09) ng/mL Crossmatch 09/02/19 09/03/19 09/03/19 Range/Units 22:32 06:18 07:36 WBC 0.1 L* 0.1 L* (3.8-10.6) k/uL RBC 1.73 L 2.11 L (4.30-5.90) m/uL Hgb 5.0 L* 6.2 L* (13.0-17.5) gm/dL Hct 14.4 L* 17.5 L* (39.0-53.0) % Plt Count 8 L* D 15 L* D (150-450) k/uL Sodium (137-145) mmol/L Creatinine (0.66-1.25) mg/dL Glucose (74-99) mg/dL POC Glucose (mg/dL) 139 H (75-99) mg/dL Lactate Dehydrogenase (313-618) U/L C-Reactive Protein (<10.0) mg/L Total Protein (6.3-8.2) g/dL Albumin (3.5-5.0) g/dL Procalcitonin (0.02-0.09) ng/mL Crossmatch 09/03/19 09/03/19 Range/Units 07:36 11:46 WBC (3.8-10.6) k/uL RBC (4.30-5.90) m/uL Hgb (13.0-17.5) gm/dL Hct (39.0-53.0) % Plt Count (150-450) k/uL Sodium 135 L (137-145) mmol/L Creatinine 0.44 L (0.66-1.25) mg/dL Glucose 108 H (74-99) mg/dL POC Glucose (mg/dL) 116 H (75-99) mg/dL Lactate Dehydrogenase (313-618) U/L C-Reactive Protein (<10.0) mg/L Total Protein 5.6 L (6.3-8.2) g/dL Albumin 3.0 L (3.5-5.0) g/dL Procalcitonin (0.02-0.09) ng/mL Crossmatch Microbiology - Last 24 Hours (Table) 09/01/19 20:53 Blood Culture - Preliminary Blood No Growth after 24 hours Assessment and Plan (1) Pancytopenia due to antineoplastic chemotherapy Narrative/Plan: Conservative transfusions with irradiated blood products. Transfuse to keep hemoglobin 7 or higher. Patient is being transfused 1 unit for hemoglobin of 6.2. Transfuse to keep platelets 10,000 or higher [place] [address] today White blood cell count is 0.1. Patient is not a confirmed remission, no G-CSF at this time. Current Visit: Yes Status: Acute Priority: High Code(s): D61.810 - ANTINEOPLASTIC CHEMOTHERAPY INDUCED PANCYTOPENIA; T45.1X5A - ADVERSE EFFECT OF ANTINEOPLASTIC AND IMMUNOSUP DRUGS, INIT SNOMED Code(s): 625862068281304 (2) Febrile neutropenia Narrative/Plan: Pancultures pending, empiric antibiotics. ID consult. No GCSF, pt not confirmed remission No fever today so far Current Visit: Yes Status: Acute Priority: High Code(s): D70.9 - NEUTROPENIA, UNSPECIFIED; R50.81 - FEVER PRESENTING WITH CONDITIONS CLASSIFIED ELSEWHERE SNOMED Code(s): 237936155 (3) Acute erythroid leukemia Narrative/Plan: Patient is being treated with salvage HiDAC regimen. Unfortunately he has not had an adequate enough marrow response for him to proceed with bone marrow transplant. He is status post the first cycle of this regimen, completed 5 days ago. Typically the bone marrow biopsy to evaluate for response to treatment occurs about 21 days after Tx, pending. Pt is aware of his condition, prognosis and possible outcomes. Current Visit: Yes Status: Chronic Priority: High Code(s): C94.00 - ACUTE ERYTHROID LEUKEMIA, NOT HAVING ACHIEVED REMISSION SNOMED Code(s): 97870201 Plan: Doctor attests: I performed a history and physical examination of this patient, developed i mpression and plan of care, discussed with dictator. I agree with dictators note, documented as a scribe.
[2019-09-03] MEDS: metFORMIN 500 MG TAB PO SCH (16:35)
[2019-09-03 16:51] LABS: Glucose,Whole Blood 108 mg/dL (75-99)
[2019-09-03] MEDS: FLUTICASONE 110 MCG INHALER INHALATION SCH (20:03)
[2019-09-03 20:14] LABS: HCT 20.4 % (39.0-53.0); HGB 7.1 gm/dL (13.0-17.5); MCH 28.8 pg (25.0-35.0); MCHC 34.8 g/dL (31.0-37.0); MCV 82.7 fL (80.0-100.0); Mean Platelet Volume 8.5; RBC 2.47 m/uL (4.30-5.90); RDW 13.2 % (11.5-15.5)
[2019-09-03 20:18] LABS: Platelet Count 14 k/uL (150-450)
[2019-09-03 20:19] LABS: WBC 0.1 k/uL (3.8-10.6)
[2019-09-03 20:55] LABS: Glucose,Whole Blood 136 mg/dL (75-99)
[2019-09-03] MEDS: DAPTOmycin 500 MG in SODIUM CHLORIDE 0.9% 50 ML IVPB SCH (21:01)
[2019-09-03] MEDS: METOPROLOL TARTRATE 25 MG TAB PO SCH (21:02)
[2019-09-03] MEDS: VENLAFAXINE HCL ER 150 MG CAP PO SCH (21:02)
[2019-09-03] MEDS: MONTELUKAST 10 MG TAB PO SCH (21:02)
[2019-09-03] MEDS: ZOLPIDEM 5 MG TAB PO PRN (22:04)
--- NOTE | 2019-09-03 23:15 | PN ---
PROGRESS NOTE DATE OF SERVICE: 09/03/2019 REASON FOR FOLLOWUP: Febrile neutropenia. INTERVAL HISTORY: The patient is currently afebrile. The patient has been breathing comfortably. He did have a fever of 103.1 degrees Fahrenheit last night, though. No chest pain, shortness of breath or cough. No nausea, no vomiting. No abdominal pain or diarrhea. PHYSICAL EXAMINATION: Blood pressure 110/60 with a pulse of 84, temperature 99.1. He is 99% on room air. General description is a middle-aged male lying in bed in no distress. RESPIRATORY SYSTEM: Unlabored breathing. Clear to auscultation anteriorly. HEART: S1, S2. Regular rate and rhythm. ABDOMEN: Soft. No tenderness. LABS: Hemoglobin is 7.1, white count 0.1. Creatinine 0.44. Culture so far negative. COVID-19 testing was negative. DIAGNOSTIC IMPRESSION AND PLAN: Patient with a fever, febrile neutropenia in this patient who did have erythroid leukemia with recent chemo. The patient did have significant pancytopenia. However, currently with no obvious clinical focus of infection except a nonfunctioning right arm PICC line, which should be discontinued. Catheter tip will be sent for culture. Keep the patient on daptomycin and cefepime and monitor clinical course closely. MMODL / IJN: [id number] /
[2019-09-04] MEDS: SODIUM CHLORIDE 0.9% 1,000 ML IV SCH
[2019-09-04 06:13] LABS: Glucose,Whole Blood 110 mg/dL (75-99)
[2019-09-04 07:02] LABS: HCT 21.4 % (39.0-53.0); HGB 7.6 gm/dL (13.0-17.5); MCH 29.5 pg (25.0-35.0); MCHC 35.5 g/dL (31.0-37.0); MCV 83.1 fL (80.0-100.0); Mean Platelet Volume 9.2; RBC 2.57 m/uL (4.30-5.90); RDW 13.3 % (11.5-15.5); WBC 0.1 k/uL (3.8-10.6)
[2019-09-04 07:05] LABS: Platelet Count 13 k/uL (150-450)
[2019-09-04 07:24] LABS: ALT 29 U/L (4-49); AST 13 U/L (17-59); African American GFR (CKD) >90 (>60 ml/min/1.73 sqM); Albumin 3.3 g/dL (3.5-5.0); Alkaline Phosphatase 65 U/L (38-126); Anion Gap 11 mmol/L; Blood Urea Nitrogen 11 mg/dL (9-20); Calcium 8.6 mg/dL (8.4-10.2); Carbon Dioxide 24 mmol/L (22-30); Chloride 103 mmol/L (98-107); Glucose 99 mg/dL (74-99); Non-African American GFR(CKD) >90 (>60 ml/min/1.73 sqM); Potassium 4.2 mmol/L (3.5-5.1); Sodium 138 mmol/L (137-145); Total Bilirubin 1.1 mg/dL (0.2-1.3); Total Protein 6.1 g/dL (6.3-8.2)
[2019-09-04] MEDS: FLUTICASONE 110 MCG INHALER INHALATION SCH ×2 (08:25→19:28)
[2019-09-04] MEDS: PANTOPRAZOLE 40 MG/10 ML VIAL IV SCH (10:01)
[2019-09-04] MEDS: CEFEPIME 2 GM in SODIUM CHLORIDE 0.9% 100 ML IVPB SCH (10:01)
[2019-09-04] MEDS: ACYCLOVIR 200 MG CAP PO SCH ×2 (10:02→20:27)
[2019-09-04] MEDS: VORICONAZOLE 200 MG TAB PO SCH (10:02)
[2019-09-04] MEDS: DIVALPROEX 500 MG TABLET.DR PO SCH ×2 (10:02→20:27)
[2019-09-04] MEDS: prednisoLONE ACETATE 1% OPHTH DROPS 5 ML BTL BOTH EYES SCH ×4 (10:08→20:26)
[2019-09-04 12:08] LABS: Glucose,Whole Blood 154 mg/dL (75-99)
--- NOTE | 2019-09-04 12:13 | P.PN ---
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 He denies fevers, he continues to have some blood when he blows his nose, no oral irritation, chest pain, progressive cough, shortness of breath, nausea, vomiting, abdominal pain, acute changes in bowel or bladder habits, hematuria, hematochezia or melena. Objective - Vital Signs Vital signs: Vital Signs Temp 98.6 F 09/04/19 08:15 Pulse 83 09/04/19 08:20 Resp 18 09/04/19 08:20 BP 124/68 09/04/19 08:15 Pulse Ox 98 09/04/19 00:00 Intake & Output 09/03/19 09/04/19 09/04/19 18:59 06:59 18:59 Intake Total 1030 340 110 Output Total 1100 1600 250 Balance -70 -1260 -140 Weight 77 kg Intake: IV 20 Invasive Line 2 20 Intake, IV Titration 340 Amount Cefepime 2 gm In Sodium 100 Chloride 0.9% 100 ml @ 200 mls/hr IVPB Q8HR [facility] Rx#:[id number] DAPTOmycin 500 mg In 100 Sodium Chloride 0.9% 50 ml @ 100 mls/hr IVPB Q24H [facility] Rx#:[id number] Sodium Chloride 0.9% 1, 140 000 ml @ 20 mls/hr IV . Q24H [facility] Rx#:[id number] Oral 720 90 Blood Product 310 Rc Irr As1 Unit 310 [id number] Output: Urine 1100 1600 250 Other: Voiding Method Urinal Urinal Urinal - Constitutional General appearance: Present: average body habitus, cooperative, no acute distress - EENT EENT Comment(s): Swelling on the right lower jaw noted, <1cm submandibular LN?, painful to palpation, no cervial LN. In the nouth Lower gumline has broken teeth, no visible s/s of infection from this view Eyes: Present: anicteric sclerae, EOMI ENT: Present: hearing grossly normal - Respiratory Respiratory: bilateral: CTA - Cardiovascular Rhythm: regular Heart sounds: normal: S1, S2 Abnormal Heart Sounds: Absent: systolic murmur, diastolic murmur, rub, S3 Gallop, S4 Gallop, click, other - Gastrointestinal General gastrointestinal: Present: normal bowel sounds, soft - Integumentary Integumentary: Present: pale - Neurologic Neurologic: Present: CNII-XII intact - Musculoskeletal Musculoskeletal: Present: generalized weakness, strength equal bilaterally - Psychiatric Psychiatric: Present: A&O x's 3, appropriate affect, intact judgment & insight - Labs CBC & Chem 7: 09/04/19 06:39 09/04/19 06:36 Labs: Abnormal Lab Results - Last 24 Hours (Table) 09/01/19 09/03/19 09/03/19 Range/Units 21:35 16:49 19:40 WBC 0.1 L* (3.8-10.6) k/uL RBC 2.47 L (4.30-5.90) m/uL Hgb 7.1 L (13.0-17.5) gm/dL Hct 20.4 L (39.0-53.0) % Plt Count 14 L* (150-450) k/uL Creatinine (0.66-1.25) mg/dL POC Glucose (mg/dL) 108 H (75-99) mg/dL AST (17-59) U/L Total Protein (6.3-8.2) g/dL Albumin (3.5-5.0) g/dL Crossmatch See Detail 09/03/19 09/04/19 09/04/19 Range/Units 20:53 06:12 06:36 WBC (3.8-10.6) k/uL RBC (4.30-5.90) m/uL Hgb (13.0-17.5) gm/dL Hct (39.0-53.0) % Plt Count (150-450) k/uL Creatinine 0.44 L (0.66-1.25) mg/dL POC Glucose (mg/dL) 136 H 110 H (75-99) mg/dL AST 13 L (17-59) U/L Total Protein 6.1 L (6.3-8.2) g/dL Albumin 3.3 L (3.5-5.0) g/dL Crossmatch 09/04/19 Range/Units 06:39 WBC 0.1 L* (3.8-10.6) k/uL RBC 2.57 L (4.30-5.90) m/uL Hgb 7.6 L (13.0-17.5) gm/dL Hct 21.4 L (39.0-53.0) % Plt Count 13 L* (150-450) k/uL Creatinine (0.66-1.25) mg/dL POC Glucose (mg/dL) (75-99) mg/dL AST (17-59) U/L Total Protein (6.3-8.2) g/dL Albumin (3.5-5.0) g/dL Crossmatch Microbiology - Last 24 Hours (Table) 09/03/19 18:40 Catheter Tip Culture - Preliminary Picc Line 09/01/19 20:53 Blood Culture - Preliminary Blood No Growth after 48 hours Assessment and Plan (1) Pancytopenia due to antineoplastic chemotherapy Narrative/Plan: Conservative transfusions with irradiated blood products. Transfuse to keep hemoglobin 7 or higher. No transfusion today, hemoglobin of 7.6. Transfuse to keep platelets 10,000 or higher [place] [address] today White blood cell count is 0.1. Patient is not a confirmed remission, no G-CSF at this time. Current Visit: Yes Status: Acute Priority: High Code(s): D61.810 - ANTINEOPLASTIC CHEMOTHERAPY INDUCED PANCYTOPENIA; T45.1X5A - ADVERSE EFFECT OF ANTINEOPLASTIC AND IMMUNOSUP DRUGS, INIT SNOMED Code(s): 633956112432949 (2) Febrile neutropenia Narrative/Plan: Pancultures negative so far, pending PICC line culture. Empiric antibiotics cont. ID consult. No GCSF, pt not confirmed remission No fever x 2 days Current Visit: Yes Status: Acute Priority: High Code(s): D70.9 - NEUTROPEN IA, UNSPECIFIED; R50.81 - FEVER PRESENTING WITH CONDITIONS CLASSIFIED ELSEWHERE SNOMED Code(s): 186449272 (3) Acute erythroid leukemia Narrative/Plan: Patient is currently being treated with salvage HiDAC regimen. Unfortunately, previous treatments did not provide an adequate enough marrow response for him to proceed with bone marrow transplant. He is status post the first cycle of this regimen, completed 6 days ago. Typically the bone marrow biopsy to evaluate for response to treatment occurs about 21 days after Tx, pending. Pt is aware of his condition, prognosis and possible outcomes, plan for bone marrow. Current Visit: Yes Status: Chronic Priority: High Code(s): C94.00 - ACUTE ERYTHROID LEUKEMIA, NOT HAVING ACHIEVED REMISSION SNOMED Code(s): 31320948 (4) Abscessed tooth Narrative/Plan: Possible abscess. Will collaborate with Oral Surgeon for recommendations, formal consult will be placed if felt necessary. Current Visit: Yes Status: Acute Priority: High Code(s): K04.7 - PERIAPICAL ABSCESS WITHOUT SINUS SNOMED Code(s): 809207458 Plan: Doctor attests: I performed a history and physical examination of this patient, developed impression and plan of care, discussed with dictator. I agree with dictators note, documented as a scribe.
--- NOTE | 2019-09-04 15:31 | P.PN ---
Subjective Progress Note Date: 09/04/19 Fransisco Burnham is a 48-year-old male well-known to my practice who presented to [facility] emergency room with a chief complaint of fever. On presentation temperature was 104.4 heart rate was 119, patient has known history of leukemia he just recently received a course of chemotherapy and was discharged home less than 1 week ago, his white blood count on presentation was 0 he was admitted to oncology floor and was started on IV antibiotics, consultation for oncology and infectious disease were initiated. On 09/03/2019 patient was seen and examined on the medical floor he is alert and oriented 3 in no apparent distress, there is no fever or chills no headache or dizziness no chest pain no shortness of breath no cough no nausea or vomiting no abdominal pain no diarrhea and no urinary symptoms. Patient remains on IV antibiotic, he remains neutropenic at this time. On 09/04/2019 Patient was seen and examined on the medical floor he is alert and oriented 3 in no distress there is no fever or chills no headache or dizziness no chest pain no shortness of breath no cough no nausea or vomiting no abdominal pain no diarrhea no burning was urination no frequency or urgency and no hematuria white blood count remained 0.1 Objective - Vital Signs Vital signs: Vital Signs Temp 98.7 F 09/04/19 12:00 Pulse 84 09/04/19 12:00 Resp 18 09/04/19 12:00 BP 129/69 09/04/19 12:00 Pulse Ox 100 09/04/19 12:00 Intake & Output 09/03/19 09/04/19 09/04/19 18:59 06:59 18:59 Intake Total 1030 340 820 Output Total 1100 1600 850 Balance -70 -1260 -30 Weight 77 kg 77 kg Intake: IV 130 Cefepime 2 gm In Sodium 100 Chloride 0.9% 100 ml @ 200 mls/hr IVPB Q8HR [facility] Rx#:[id number] Invasive Line 2 30 Intake, IV Titration 340 Amount Cefepime 2 gm In Sodium 100 Chloride 0.9% 100 ml @ 200 mls/hr IVPB Q8HR [facility] Rx#:[id number] DAPTOmycin 500 mg In 100 Sodium Chloride 0.9% 50 ml @ 100 mls/hr IVPB Q24H [facility] Rx#:[id number] Sodium Chloride 0.9% 1, 140 000 ml @ 20 mls/hr IV . Q24H [facility] Rx#:[id number] Oral 720 690 Blood Product 310 Rc Irr As1 Unit 310 [id number] Output: Urine 1100 1600 850 Other: Voiding Method Urinal Urinal Urinal - Exam In general patient is alert and oriented 3 in no apparent distress HEENT head normocephalic and atraumatic Neck is supple no JVD no goiter no lymphadenopathy Chest exam reveals a few scattered crackles no wheezing Cardiac exam reveals regular heart sounds no gallops no murmurs Abdomen is soft nontender no organomegaly with normal bowel sounds Extremity exam reveals no edema no cyanosis or clubbing Neurological examination reveals no gross focal neurological deficit - Labs CBC & Chem 7: 09/04/19 06:39 09/04/19 06:36 Labs: Abnormal Lab Results - Last 24 Hours (Table) 09/01/19 09/03/19 09/03/19 Range/Units 21:35 16:49 19:40 WBC 0.1 L* (3.8-10.6) k/uL RBC 2.47 L (4.30-5.90) m/uL Hgb 7.1 L (13.0-17.5) gm/dL Hct 20.4 L (39.0-53.0) % Plt Count 14 L* (150-450) k/uL Creatinine (0.66-1.25) mg/dL POC Glucose (mg/dL) 108 H (75-99) mg/dL AST (17-59) U/L Total Protein (6.3-8.2) g/dL Albumin (3.5-5.0) g/dL Crossmatch See Detail 09/03/19 09/04/19 09/04/19 Range/Units 20:53 06:12 06:36 WBC (3.8-10.6) k/uL RBC (4.30-5.90) m/uL Hgb (13.0-17.5) gm/dL Hct (39.0-53.0) % Plt Count (150-450) k/uL Creatinine 0.44 L (0.66-1.25) mg/dL POC Glucose (mg/dL) 136 H 110 H (75-99) mg/dL AST 13 L (17-59) U/L Total Protein 6.1 L (6.3-8.2) g/dL Albumin 3.3 L (3.5-5.0) g/dL Crossmatch 09/04/19 09/04/19 Range/Units 06:39 11:58 WBC 0.1 L* (3.8-10.6) k/uL RBC 2.57 L (4.30-5.90) m/uL Hgb 7.6 L (13.0-17.5) gm/dL Hct 21.4 L (39.0-53.0) % Plt Count 13 L* (150-450) k/uL Creatinine (0.66-1.25) mg/dL POC Glucose (mg/dL) 154 H (75-99) mg/dL AST (17-59) U/L Total Protein (6.3-8.2) g/dL Albumin (3.5-5.0) g/dL Crossmatch Microbiology - Last 24 Hours (Table) 09/03/19 18:40 Catheter Tip Culture - Preliminary Picc Line 09/01/19 20:53 Blood Culture - Preliminary Blood No Growth after 48 hours Assessment and Plan Plan: #1 febrile illness with neutropenia, source of infection is not entirely clear at this time influenza A and B were negative urine analysis without any evidence of urinary tract infection, blood culture is pending. #2 acute erythroid leukemia, patient received chemotherapy at [facility] and was discharged home less than 1 week ago #3 anemia hemoglobin on presentation 4.8 RBC transfusion ordered by oncology #4 thrombocytopenia platelet count is down to 3 no evidence of bleeding at this time #5 lactic acidosis, on presentation lactic acid level was 2.7 down to 1.3, continue IV hydration and IV antibiotics. #6 underlying history of diabetes mellitus maintained on metformin continue #7 underlying history of hypertension maintained on metoprolol continue #8 underlying history of depression maintained on Effexor continue. At this time home medication reviewed and reordered Continue with IV antibiotics and IV hydration RBC transfusion was ordered by hematology Consultation for hematology oncology and infectious disease are initiated Will follow closely
[2019-09-04 17:04] LABS: Glucose,Whole Blood 138 mg/dL (75-99)
[2019-09-04] MEDS: metFORMIN 500 MG TAB PO SCH (17:11)
[2019-09-04] MEDS: AMPICILLIN-SULBACTAM 3 GM in SODIUM CHLORIDE 0.9% 100 ML IVPB SCH ×2 (17:11→23:56)
[2019-09-04] MEDS: ZOLPIDEM 5 MG TAB PO PRN (20:27)
[2019-09-04] MEDS: HYDROcodone/APAP 10-325MG 1 EACH TAB PO PRN (20:27)
[2019-09-04] MEDS: MONTELUKAST 10 MG TAB PO SCH (20:27)
[2019-09-04] MEDS: VENLAFAXINE HCL ER 150 MG CAP PO SCH (20:27)
[2019-09-04] MEDS: METOPROLOL TARTRATE 25 MG TAB PO SCH (20:27)
[2019-09-04 20:39] LABS: Glucose,Whole Blood 143 mg/dL (75-99)
--- NOTE | 2019-09-04 22:58 | PN ---
PROGRESS NOTE DATE OF SERVICE: 09/04/2019 REASON FOR FOLLOWUP: Febrile neutropenia. INTERVAL HISTORY: The patient is currently afebrile, has been breathing comfortably. Denies having any chest pain or shortness of breath or cough. No nausea, vomiting, abdominal pain or diarrhea. PHYSICAL EXAMINATION: Blood pressure 126/69 with a pulse of 92, temperature 99. He is 99% on room air. General description is a middle-aged male lying in bed in no distress. RESPIRATORY SYSTEM: Unlabored breathing with decreased intensity of breath sounds. No wheeze. HEART: S1, S2. Regular rate and rhythm. ABDOMEN: Soft. No tenderness. EXTREMITIES: No edema of the feet. LABS: Hemoglobin 7.6, white count 0.1. BUN of 11, creatinine 0.44. DIAGNOSTIC IMPRESSION AND PLAN: Patient with febrile neutropenia. Source is possibly infected teeth. Antibiotic adjusted to Unasyn. Oral Surgery has been consulted. Will monitor clinical course closely. MMODL / IJN: [id number] /
[2019-09-05] MEDS: AMPICILLIN-SULBACTAM 3 GM in SODIUM CHLORIDE 0.9% 100 ML IVPB SCH ×4 (06:12→22:59)
[2019-09-05 06:20] LABS: Glucose,Whole Blood 107 mg/dL (75-99)
[2019-09-05] MEDS: SODIUM CHLORIDE 0.9% 1,000 ML IV SCH ×2 (06:50→22:00)
[2019-09-05] MEDS: FLUTICASONE 110 MCG INHALER INHALATION SCH ×2 (07:56→20:34)
[2019-09-05 09:18] LABS: HGB 7.3 gm/dL (13.0-17.5); MCH 29.5 pg (25.0-35.0); MCHC 34.7 g/dL (31.0-37.0); MCV 84.9 fL (80.0-100.0); Mean Platelet Volume 9.9; RBC 2.47 m/uL (4.30-5.90); RDW 12.9 % (11.5-15.5)
[2019-09-05 09:23] LABS: Platelet Count 8 k/uL (150-450); WBC 0.1 k/uL (3.8-10.6)
[2019-09-05 09:35] LABS: ALT 30 U/L (4-49); AST 13 U/L (17-59); African American GFR (CKD) >90 (>60 ml/min/1.73 sqM); Albumin 3.1 g/dL (3.5-5.0); Alkaline Phosphatase 67 U/L (38-126); Anion Gap 4 mmol/L; Blood Urea Nitrogen 13 mg/dL (9-20); Calcium 8.6 mg/dL (8.4-10.2); Carbon Dioxide 31 mmol/L (22-30); Chloride 102 mmol/L (98-107); Glucose 145 mg/dL (74-99); Non-African American GFR(CKD) >90 (>60 ml/min/1.73 sqM); Potassium 4.1 mmol/L (3.5-5.1); Sodium 137 mmol/L (137-145); Total Bilirubin 0.7 mg/dL (0.2-1.3); Total Protein 5.8 g/dL (6.3-8.2)
[2019-09-05] MEDS: DIVALPROEX 500 MG TABLET.DR PO SCH ×2 (09:46→21:57)
[2019-09-05] MEDS: PANTOPRAZOLE 40 MG/10 ML VIAL IV SCH (09:46)
[2019-09-05] MEDS: VORICONAZOLE 200 MG TAB PO SCH (09:46)
[2019-09-05] MEDS: ACYCLOVIR 200 MG CAP PO SCH ×2 (09:46→21:56)
[2019-09-05] MEDS: prednisoLONE ACETATE 1% OPHTH DROPS 5 ML BTL BOTH EYES SCH ×4 (09:47→21:59)
--- NOTE | 2019-09-05 15:49 | P.PN ---
Subjective Progress Note Date: 09/05/19 Fransisco Burnham is a 48-year-old male well-known to my practice who presented to [facility] emergency room with a chief complaint of fever. On presentation temperature was 104.4 heart rate was 119, patient has known history of leukemia he just recently received a course of chemotherapy and was discharged home less than 1 week ago, his white blood count on presentation was 0 he was admitted to oncology floor and was started on IV antibiotics, consultation for oncology and infectious disease were initiated. On 09/03/2019 patient was seen and examined on the medical floor he is alert and oriented 3 in no apparent distress, there is no fever or chills no headache or dizziness no chest pain no shortness of breath no cough no nausea or vomiting no abdominal pain no diarrhea and no urinary symptoms. Patient remains on IV antibiotic, he remains neutropenic at this time. On 09/04/2019 Patient was seen and examined on the medical floor he is alert and oriented 3 in no distress there is no fever or chills no headache or dizziness no chest pain no shortness of breath no cough no nausea or vomiting no abdominal pain no diarrhea no burning was urination no frequency or urgency and no hematuria white blood count remained 0.1 On 09/05/2019 patient was seen and examined on the medical floor he is alert and oriented 3 in no distress he is complaining of right lower tooth pain with evidence of abscess otherwise he denies any complaints there is no fever or chills no headache or dizziness no chest pain no shortness of breath no cough no nausea or vomiting no abdominal pain no diarrhea and no urinary symptoms Objective - Vital Signs Vital signs: Vital Signs Temp 98.6 F 09/05/19 15:07 Pulse 89 09/05/19 07:00 Resp 16 09/05/19 15:07 BP 119/63 09/05/19 15:07 Pulse Ox 97 09/05/19 15:07 Intake & Output 09/04/19 09/05/19 09/05/19 18:59 06:59 18:59 Intake Total 1972 369 5006 Output Total 850 1525 1000 Balance 220 -1245 820 Weight 77 kg Intake: IV 140 380 Ampicillin-Sulbactam 3 gm 200 In Sodium Chloride 0.9% 100 ml @ 200 mls/hr IVPB Q6HR [facility] Rx#:[id number] Cefepime 2 gm In Sodium 100 Chloride 0.9% 100 ml @ 200 mls/hr IVPB Q8HR [facility] Rx#:[id number] Invasive Line 2 40 Invasive Line 4 20 Sodium Chloride 0.9% 1, 160 000 ml @ 20 mls/hr IV . Q24H [facility] Rx#:[id number] Intake, IV Titration 280 Amount Ampicillin-Sulbactam 3 gm 200 In Sodium Chloride 0.9% 100 ml @ 200 mls/hr IVPB Q6HR [facility] Rx#:[id number] Sodium Chloride 0.9% 1, 80 000 ml @ 20 mls/hr IV . Q24H [facility] Rx#:[id number] Oral 930 1440 Output: Urine 850 1525 1000 Other: Voiding Method Urinal Urinal Urinal # Voids 1 # Bowel Movements 0 0 - Exam In general patient is alert and oriented 3 in no apparent distress HEENT head normocephalic and atraumatic Neck is supple no JVD no goiter no lymphadenopathy Chest exam reveals a few scattered crackles no wheezing Cardiac exam reveals regular heart sounds no gallops no murmurs Abdomen is soft nontender no organomegaly with normal bowel sounds Extremity exam reveals no edema no cyanosis or clubbing Neurological examination reveals no gross focal neurological deficit - Labs CBC & Chem 7: 09/05/19 08:51 09/05/19 08:51 Labs: Abnormal Lab Results - Last 24 Hours (Table) 09/01/19 09/04/19 09/04/19 Range/Units 21:35 16:59 20:38 WBC (3.8-10.6) k/uL RBC (4.30-5.90) m/uL Hgb (13.0-17.5) gm/dL Hct (39.0-53.0) % Plt Count (150-450) k/uL Carbon Dioxide (22-30) mmol/L Creatinine (0.66-1.25) mg/dL Glucose (74-99) mg/dL POC Glucose (mg/dL) 138 H 143 H (75-99) mg/dL AST (17-59) U/L Total Protein (6.3-8.2) g/dL Albumin (3.5-5.0) g/dL Crossmatch See Detail 09/05/19 09/05/19 09/05/19 Range/Units 06:18 08:51 08:51 WBC 0.1 L* (3.8-10.6) k/uL RBC 2.47 L (4.30-5.90) m/uL Hgb 7.3 L (13.0-17.5) gm/dL Hct 21.0 L (39.0-53.0) % Plt Count 8 L* (150-450) k/uL Carbon Dioxide 31 H (22-30) mmol/L Creatinine 0.41 L (0.66-1.25) mg/dL Glucose 145 H (74-99) mg/dL POC Glucose (mg/dL) 107 H (75-99) mg/dL AST 13 L (17-59) U/L Total Protein 5.8 L (6.3-8.2) g/dL Albumin 3.1 L (3.5-5.0) g/dL Crossmatch Microbiology - Last 24 Hours (Table) 09/01/19 20:53 Blood Culture - Preliminary Blood No Growth after 72 hours Assessment and Plan Plan: #1 febrile illness with neutropenia, source of infection is not entirely clear at this time influenza A and B were negative urine analysis without any evidence of urinary tract infection, blood culture is pending. #2 acute erythroid leukemia, patient received chemotherapy at [facility] and was discharged home less than 1 week ago #3 anemia hemoglobin on presentation 4.8 RBC transfusion ordered by oncology #4 thrombocytopenia platelet count is down to 3 no evidence of bleeding at this time #5 lactic acidosis, on presentation lactic acid level was 2.7 down to 1.3, continue IV hydration and IV antibiotics. #6 underlying history of diabetes mellitus maintained on metformin continue #7 underlying history of hypertension maintained on metoprolol continue #8 underlying history of depression maintained on Effexor continue. #9 tooth abscess consultation for oral surgery was initiated continue with current antibiotics At this time home medication reviewed and reordered Continue with IV antibiotics and IV hydration RBC transfusion was ordered by hematology Consultation for hematology oncology and infectious disease are initiated Will follow closely
--- NOTE | 2019-09-05 16:13 | CT ---
EXAMINATION TYPE: CT [facility] DATE OF EXAM: 09/05/2019 COMPARISON: None HISTORY: Right-sided jaw pain CT DLP: 398.5 mGycm Automated exposure control for dose reduction was used. TECHNIQUE: Contiguous axial CT slices were obtained of the maxilla and mandible with 3-D imaging of t he osseous structures performed at a separate workstation and submitted for review. Coronal reformatt ed images were obtained in bone and soft tissue algorithm. FINDINGS: Skin thickening and slight subcutaneous edema are seen along the soft tissues overlying the right man dible. No fluid collection is seen. Intravenous contrast would improve sensitivity for abscess. Asymm etric but nonenlarged right greater than left lymph nodes are seen around the mandible touches a righ t submandibular lymph node measuring 6 mm in short axis on image. Spinal nerve root stimulator is partially visualized in the cervical spine. Advanced degenerative dis c disease of the cervical spine is seen particularly for the patient's age. Paranasal sinuses and mas toid air cells are overall well aerated other than scant mucosal thickening of the left maxillary sin us. There is some secretions in the nasopharynx and a rightward nasal septal spur seen. Orbits are sy mmetric. Multifocal dental disease with absence of multiple mandibular teeth multifocal periapical lucencies i n the mandible and maxilla. Panoramic view is provided. Suboptimal visualization of the limited image s of the brain given technique. IMPRESSION: 1. Right maxillary subcutaneous edema and skin thickening suggesting cellulitis. No well-formed fluid collection is seen to suggest abscess at this time. Intravenous contrast would increase sensitivity for abscess. Multifocal dental disease with surgical absence of multiple maxillary and mandibular kevin th and multifocal periapical lucencies. 2. Slightly asymmetric prominent lymph nodes on the right greater than left in the submandibular mary on, likely reactive. 3. Advanced degenerative disc disease of the cervical spine particularly for the patient's age.
[2019-09-05] MEDS: oxyCODONE-APAP 5-325MG 1 EACH TAB PO PRN (16:20)
--- NOTE | 2019-09-05 17:21 | P.PN ---
Subjective Progress Note Date: 09/05/19 Principal diagnosis: AML, Pancytopenia Afebrile, Platelets 8K today Transfusion orders given Objective - Vital Signs Vital signs: Vital Signs Temp 98.6 F 09/05/19 07:00 Pulse 89 09/05/19 07:01 Resp 18 09/05/19 07:01 BP 124/66 09/05/19 07:00 Pulse Ox 98 09/05/19 07:00 Intake & Output 09/04/19 09/05/19 09/05/19 18:59 06:59 18:59 Intake Total 1070 280 510 Output Total 850 1525 600 Balance 220 -1245 -90 Weight 77 kg Intake: IV 140 270 Ampicillin-Sulbactam 3 gm 100 In Sodium Chloride 0.9% 100 ml @ 200 mls/hr IVPB Q6HR [facility] Rx#:[id number] Cefepime 2 gm In Sodium 100 Chloride 0.9% 100 ml @ 200 mls/hr IVPB Q8HR [facility] Rx#:[id number] Invasive Line 2 40 Invasive Line 4 10 Sodium Chloride 0.9% 1, 160 000 ml @ 20 mls/hr IV . Q24H [facility] Rx#:[id number] Intake, IV Titration 280 Amount Ampicillin-Sulbactam 3 gm 200 In Sodium Chloride 0.9% 100 ml @ 200 mls/hr IVPB Q6HR [facility] Rx#:[id number] Sodium Chloride 0.9% 1, 80 000 ml @ 20 mls/hr IV . Q24H [facility] Rx#:[id number] Oral 930 240 Output: Urine 850 1525 600 Other: Voiding Method Urinal Urinal Urinal # Voids 1 # Bowel Movements 0 0 - Exam - Constitutional General appearance: Present: average body habitus, cooperative, no acute distress, Ashy/greyish/mild jaundice - EENT EENT Comment(s): Swelling on the right lower jaw noted, <1cm submandibular LN?, painful to palpation, no cervial LN. In the nouth Lower gumline has broken teeth, no visible s/s of infection from this view Eyes: Present: anicteric sclerae, EOMI ENT: Present: hearing grossly normal - Respiratory Respiratory: bilateral: CTA - Cardiovascular Rhythm: regular Heart sounds: normal: S1, S2 Abnormal Heart Sounds: Absent: systolic murmur, diastolic murmur, rub, S3 Gallop, S4 Gallop, click, other - Gastrointestinal General gastrointestinal: Present: normal bowel sounds, soft - Integumentary Integumentary: Present: pale - Neurologic Neurologic: Present: CNII-XII intact - Musculoskeletal Musculoskeletal: Present: generalized weakness, strength equal bilaterally - Psychiatric Psychiatric: Present: A&O x's 3, appropriate affect, intact judgment & insight - Labs CBC & Chem 7: 09/05/19 08:51 09/05/19 08:51 Labs: Abnormal Lab Results - Last 24 Hours (Table) 09/04/19 09/04/19 09/05/19 Range/Units 16:59 20:38 06:18 WBC (3.8-10.6) k/uL RBC (4.30-5.90) m/uL Hgb (13.0-17.5) gm/dL Hct (39.0-53.0) % Plt Count (150-450) k/uL Carbon Dioxide (22-30) mmol/L Creatinine (0.66-1.25) mg/dL Glucose (74-99) mg/dL POC Glucose (mg/dL) 138 H 143 H 107 H (75-99) mg/dL AST (17-59) U/L Total Protein (6.3-8.2) g/dL Albumin (3.5-5.0) g/dL 09/05/19 09/05/19 Range/Units 08:51 08:51 WBC 0.1 L* (3.8-10.6) k/uL RBC 2.47 L (4.30-5.90) m/uL Hgb 7.3 L (13.0-17.5) gm/dL Hct 21.0 L (39.0-53.0) % Plt Count 8 L* (150-450) k/uL Carbon Dioxide 31 H (22-30) mmol/L Creatinine 0.41 L (0.66-1.25) mg/dL Glucose 145 H (74-99) mg/dL POC Glucose (mg/dL) (75-99) mg/dL AST 13 L (17-59) U/L Total Protein 5.8 L (6.3-8.2) g/dL Albumin 3.1 L (3.5-5.0) g/dL Microbiology - Last 24 Hours (Table) 09/01/19 20:53 Blood Culture - Preliminary Blood No Growth after 72 hours Assessment and Plan Plan: Pancytopenia due to Antineoplastic Chemotherapy and Acute Myeloid Leukemia - Remains Transfusion Dependent, requiring platelets today for count of 8K - Conservative transfusions with irradiated blood products. - Transfuse to keep hemoglobin 7 or higher. No transfusion today, hemoglobin of 7.3. - Transfuse to keep platelets 10,000 or higher and less symptomatic. Platelet count is 8K today and transfusion ordered - He is not in confirmed remission at this time, therefore no colony stimulating products advised. - Monitor Daily CBC with Differential Febrile neutropenia - Fevers improved - Possible Source Abscess Tooth - Pancultures and catheter Tip negative to date - Infectious Disease is following and management of antibiotics - Afebrile greater than 48 hours. 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 - Typically the bone marrow biopsy to evaluate for response to treatment occurs about 21 days after Tx, although at this time will continue to monitor counts and await repeat per Dr. Rojas Abscessed tooth - Possible abscess for source of elevated fevers - Will collaborate with Oral Surgeon for recommendations, formal consult will be placed if felt necessary. Doctor attests: I performed a history and physical examination of this patient, developed impression and plan of care, discussed with dictator. I agree with dictators note, documented as a scribe.
[2019-09-05] MEDS: metFORMIN 500 MG TAB PO SCH (17:29)
[2019-09-05 20:46] LABS: Glucose,Whole Blood 137 mg/dL (75-99)
[2019-09-05] MEDS: HYDROcodone/APAP 10-325MG 1 EACH TAB PO PRN (21:57)
[2019-09-05] MEDS: MONTELUKAST 10 MG TAB PO SCH (21:57)
[2019-09-05] MEDS: METOPROLOL TARTRATE 25 MG TAB PO SCH (21:58)
[2019-09-05] MEDS: ZOLPIDEM 5 MG TAB PO PRN (22:58)
[2019-09-05] MEDS: VENLAFAXINE HCL ER 150 MG CAP PO SCH (22:58)
--- NOTE | 2019-09-05 23:48 | PN ---
PROGRESS NOTE DATE OF SERVICE: 09/05/2019 REASON FOR FOLLOWUP: Febrile neutropenia with right lower jaw infected tooth. INTERVAL HISTORY: The patient did have a low-grade fever of 99.8 this afternoon. The patient started having pain in the right lower jaw with a previous history of infected tooth. Denies having any chest pain or shortness of breath or cough. No nausea, vomiting or diarrhea. PHYSICAL EXAMINATION: Blood pressure 123/64 with a pulse of 88, temperature 98.6. He is 100% on room air. General description is a middle-aged male lying in bed in no distress. HEENT EXAMINATION: Right lower jaw did have an infected tooth with some swelling and painful LUNGS: Unlabored breathing. Clear to auscultation anteriorly. HEART: S1, S2. Regular rate and rhythm. ABDOMEN: Soft. No tenderness. LABS/IMAGING: Hemoglobin 7.3, white count 0.1, BUN of 13, creatinine 0.41. He did have a CT of the jaw which did show infected tooth, but no drainable abscess. DIAGNOSTIC IMPRESSION AND PLAN: Patient with febrile neutropenia in this patient with recent chemo now developing a right lower jaw infected tooth. Antibiotic has been adjusted to Unasyn. Oral Surgery has been consulted. Will monitor his clinical course closely. MMODL / IJN: [id number] /
[2019-09-06] MEDS: AMPICILLIN-SULBACTAM 3 GM in SODIUM CHLORIDE 0.9% 100 ML IVPB SCH ×4 (05:37→23:11)
[2019-09-06 06:15] LABS: Glucose,Whole Blood 97 mg/dL (75-99)
[2019-09-06 07:24] LABS: MCH 30.1 pg (25.0-35.0); MCHC 35.1 g/dL (31.0-37.0); MCV 85.8 fL (80.0-100.0); RBC 2.22 m/uL (4.30-5.90); RDW 12.8 % (11.5-15.5)
[2019-09-06 07:28] LABS: WBC 0.1 k/uL (3.8-10.6)
[2019-09-06 07:31] LABS: Platelet Count 12 k/uL (150-450)
[2019-09-06 07:32] LABS: HGB 6.7 gm/dL (13.0-17.5)
[2019-09-06 07:33] LABS: ALT 34 U/L (4-49); AST 13 U/L (17-59); African American GFR (CKD) >90 (>60 ml/min/1.73 sqM); Albumin 3.2 g/dL (3.5-5.0); Alkaline Phosphatase 67 U/L (38-126); Anion Gap 7 mmol/L; Blood Urea Nitrogen 12 mg/dL (9-20); Calcium 8.6 mg/dL (8.4-10.2); Carbon Dioxide 28 mmol/L (22-30); Chloride 102 mmol/L (98-107); Glucose 88 mg/dL (74-99); Non-African American GFR(CKD) >90 (>60 ml/min/1.73 sqM); Potassium 4.5 mmol/L (3.5-5.1); Sodium 137 mmol/L (137-145); Total Bilirubin 0.9 mg/dL (0.2-1.3); Total Protein 5.8 g/dL (6.3-8.2)
[2019-09-06] MEDS: FLUTICASONE 110 MCG INHALER INHALATION SCH ×2 (07:46→20:05)
[2019-09-06 08:11] LABS: Poikilocytosis (M) Present
--- NOTE | 2019-09-06 10:08 | P.PN ---
Subjective Progress Note Date: 09/06/19 Fransisco Burnham is a 48-year-old male well-known to my practice who presented to [facility] emergency room with a chief complaint of fever. On presentation temperature was 104.4 heart rate was 119, patient has known history of leukemia he just recently received a course of chemotherapy and was discharged home less than 1 week ago, his white blood count on presentation was 0 he was admitted to oncology floor and was started on IV antibiotics, consultation for oncology and infectious disease were initiated. On 09/03/2019 patient was seen and examined on the medical floor he is alert and oriented 3 in no apparent distress, there is no fever or chills no headache or dizziness no chest pain no shortness of breath no cough no nausea or vomiting no abdominal pain no diarrhea and no urinary symptoms. Patient remains on IV antibiotic, he remains neutropenic at this time. On 09/04/2019 Patient was seen and examined on the medical floor he is alert and oriented 3 in no distress there is no fever or chills no headache or dizziness no chest pain no shortness of breath no cough no nausea or vomiting no abdominal pain no diarrhea no burning was urination no frequency or urgency and no hematuria white blood count remained 0.1 On 09/05/2019 patient was seen and examined on the medical floor he is alert and oriented 3 in no distress he is complaining of right lower tooth pain with evidence of abscess otherwise he denies any complaints there is no fever or chills no headache or dizziness no chest pain no shortness of breath no cough no nausea or vomiting no abdominal pain no diarrhea and no urinary symptoms. On 09/06/2019 patient was seen and examined on the medical floor he is alert and oriented 3 in no apparent distress he is complaining of right lower tooth pain otherwise he denies any complaints there is no fever or chills no headache or dizziness no chest pain no shortness of breath no cough no nausea or vomiting no abdominal pain no diarrhea no blood in the stools no burning was urination no frequency or urgency and no hematuria patient remains neutropenic with a white blood count of 0.1 Objective - Vital Signs Vital signs: Vital Signs Temp 99.1 F 09/06/19 06:19 Pulse 65 09/06/19 06:19 Resp 16 09/06/19 06:19 BP 116/65 09/06/19 06:19 Pulse Ox 97 09/06/19 06:19 Intake & Output 09/05/19 09/06/19 09/06/19 18:59 06:59 18:59 Intake Total 2148 580 120 Output Total 1400 1590 Balance 748 -1010 120 Weight 80 kg Intake: IV 380 40 Ampicillin-Sulbactam 3 gm 200 In Sodium Chloride 0.9% 100 ml @ 200 mls/hr IVPB Q6HR [facility] Rx#:[id number] Invasive Line 4 20 40 Sodium Chloride 0.9% 1, 160 000 ml @ 20 mls/hr IV . Q24H [facility] Rx#:[id number] Oral 1560 540 120 Blood Product 208 Platelet Irr Pheresis 2 208 Acda Unit [id number] Output: Urine 1400 1590 Other: Voiding Method Urinal Urinal # Bowel Movements 0 - Exam In general patient is alert and oriented 3 in no apparent distress HEENT head normocephalic and atraumatic Neck is supple no JVD no goiter no lymphadenopathy Chest exam reveals a few scattered crackles no wheezing Cardiac exam reveals regular heart sounds no gallops no murmurs Abdomen is soft nontender no organomegaly with normal bowel sounds Extremity exam reveals no edema no cyanosis or clubbing Neurological examination reveals no gross focal neurological deficit - Labs CBC & Chem 7: 09/06/19 06:55 09/06/19 06:55 Labs: Abnormal Lab Results - Last 24 Hours (Table) 09/01/19 09/05/19 09/05/19 Range/Units 21:35 08:51 08:51 WBC 0.1 L* (3.8-10.6) k/uL RBC 2.47 L (4.30-5.90) m/uL Hgb 7.3 L (13.0-17.5) gm/dL Hct 21.0 L (39.0-53.0) % Plt Count 8 L* (150-450) k/uL Carbon Dioxide 31 H (22-30) mmol/L Creatinine 0.41 L (0.66-1.25) mg/dL Glucose 145 H (74-99) mg/dL POC Glucose (mg/dL) (75-99) mg/dL AST 13 L (17-59) U/L Total Protein 5.8 L (6.3-8.2) g/dL Albumin 3.1 L (3.5-5.0) g/dL Crossmatch See Detail 09/05/19 09/06/19 09/06/19 Range/Units 20:45 06:55 06:55 WBC 0.1 L* (3.8-10.6) k/uL RBC 2.22 L (4.30-5.90) m/uL Hgb 6.7 L* (13.0-17.5) gm/dL Hct 19.0 L* (39.0-53.0) % Plt Count 12 L* (150-450) k/uL Carbon Dioxide (22-30) mmol/L Creatinine 0.45 L (0.66-1.25) mg/dL Glucose (74-99) mg/dL POC Glucose (mg/dL) 137 H (75-99) mg/dL AST 13 L (17-59) U/L Total Protein 5.8 L (6.3-8.2) g/dL Albumin 3.2 L (3.5-5.0) g/dL Crossmatch 09/06/19 Range/Units 07:51 WBC (3.8-10.6) k/uL RBC (4.30-5.90) m/uL Hgb (13.0-17.5) gm/dL Hct (39.0-53.0) % Plt Count (150-450) k/uL Carbon Dioxide (22-30) mmol/L Creatinine (0.66-1.25) mg/dL Glucose (74-99) mg/dL POC Glucose (mg/dL) (75-99) mg/dL AST (17-59) U/L Total Protein (6.3-8.2) g/dL Albumin (3.5-5.0) g/dL Crossmatch See Detail Microbiology - Last 24 Hours (Table) 09/01/19 20:53 Blood Culture - Preliminary Blood No Growth after 96 hours 09/03/19 18:40 Catheter Tip Culture - Final Picc Line Assessment and Plan Plan: #1 febrile illness with neutropenia, source of infection is not entirely clear at this time influenza A and B were negative urine analysis without any evidence of urinary tract infection, blood culture is pending. #2 acute erythroid leukemia, patient received chemotherapy at [facility] and was discharged home less than 1 week ago #3 anemia hemoglobin on presentation 4.8 RBC transfusion ordered by oncology #4 thrombocytopenia platelet count is down to 3 no evidence of bleeding at this time #5 lactic acidosis, on presentation lactic acid level was 2.7 down to 1.3, con tinue IV hydration and IV antibiotics. #6 underlying history of diabetes mellitus maintained on metformin continue #7 underlying history of hypertension maintained on metoprolol continue #8 underlying history of depression maintained on Effexor continue. #9 tooth abscess consultation for oral surgery was initiated continue with current antibiotics, we are hoping for intervention by oral surgery during this admission, patient will need platelet transfusion prior to procedure At this time home medication reviewed and reordered Continue with IV antibiotics and IV hydration RBC transfusion was ordered by hematology Consultation for hematology oncology and infectious disease are initiated Will follow closely
[2019-09-06] MEDS: DIVALPROEX 500 MG TABLET.DR PO SCH ×2 (10:31→21:28)
[2019-09-06] MEDS: PANTOPRAZOLE 40 MG/10 ML VIAL IV SCH (10:32)
[2019-09-06] MEDS: ACYCLOVIR 200 MG CAP PO SCH ×2 (10:32→21:27)
[2019-09-06] MEDS: VORICONAZOLE 200 MG TAB PO SCH (10:32)
[2019-09-06] MEDS: prednisoLONE ACETATE 1% OPHTH DROPS 5 ML BTL BOTH EYES SCH ×4 (10:32→21:31)
[2019-09-06 11:34] LABS: Glucose,Whole Blood 111 mg/dL (75-99)
--- NOTE | 2019-09-06 12:39 | P.PN ---
Subjective Progress Note Date: 09/06/19 Principal diagnosis: AML, Pancytopenia Hemoglobin 6.7 and platelets 12K, transfusion ordered. Objective - Vital Signs Vital signs: Vital Signs Temp 98.0 F 09/06/19 11:40 Pulse 88 09/06/19 11:40 Resp 16 09/06/19 11:40 BP 131/60 09/06/19 11:40 Pulse Ox 100 09/06/19 11:40 Intake & Output 09/05/19 09/06/19 09/06/19 18:59 06:59 18:59 Intake Total 2148 580 520 Output Total 1400 1590 980 Balance 748 -1010 -460 Weight 80 kg Intake: IV 380 40 140 Ampicillin-Sulbactam 3 gm 200 100 In Sodium Chloride 0.9% 100 ml @ 200 mls/hr IVPB Q6HR [facility] Rx#:[id number] Invasive Line 4 20 40 Invasive Line 5 20 Invasive Line 6 20 Sodium Chloride 0.9% 1, 160 000 ml @ 20 mls/hr IV . Q24H [facility] Rx#:[id number] Oral 1560 540 380 Blood Product 208 0 Platelet Irr Pheresis 2 208 Acda Unit [id number] Rc Irr As1 Unit 0 [id number] Output: Urine 1400 1590 980 Other: Voiding Method Urinal Urinal Urinal # Bowel Movements 0 - Exam Telemed visit, no acute distress, alert and oriented. - Labs CBC & Chem 7: 09/06/19 06:55 09/06/19 06:55 Labs: Abnormal Lab Results - Last 24 Hours (Table) 09/01/19 09/05/19 09/06/19 Range/Units 21:35 20:45 06:55 WBC 0.1 L* (3.8-10.6) k/uL RBC 2.22 L (4.30-5.90) m/uL Hgb 6.7 L* (13.0-17.5) gm/dL Hct 19.0 L* (39.0-53.0) % Plt Count 12 L* (150-450) k/uL Creatinine (0.66-1.25) mg/dL POC Glucose (mg/dL) 137 H (75-99) mg/dL AST (17-59) U/L Total Protein (6.3-8.2) g/dL Albumin (3.5-5.0) g/dL Crossmatch See Detail 09/06/19 09/06/19 09/06/19 Range/Units 06:55 07:51 11:33 WBC (3.8-10.6) k/uL RBC (4.30-5.90) m/uL Hgb (13.0-17.5) gm/dL Hct (39.0-53.0) % Plt Count (150-450) k/uL Creatinine 0.45 L (0.66-1.25) mg/dL POC Glucose (mg/dL) 111 H (75-99) mg/dL AST 13 L (17-59) U/L Total Protein 5.8 L (6.3-8.2) g/dL Albumin 3.2 L (3.5-5.0) g/dL Crossmatch See Detail Microbiology - Last 24 Hours (Table) 09/01/19 20:53 Blood Culture - Preliminary Blood No Growth after 96 hours 09/03/19 18:40 Catheter Tip Culture - Final Picc Line Assessment and Plan Plan: Pancytopenia due to Antineoplastic Chemotherapy and Acute Myeloid Leukemia - Remains Transfusion Dependent, requiring platelets today for count of 8K - Conservative transfusions with irradiated blood products. - Transfuse to keep hemoglobin 7 or higher. transfusion today, hemoglobin of 6.7. - Transfuse to keep platelets 10,000 or higher and less symptomatic. Platelet count is 12K today and no transfusion ordered - He is not in confirmed remission at this time, therefore no colony sti mulating products advised. - Monitor Daily CBC with Differential Febrile neutropenia - Fevers improved - Possible Source Abscess Tooth - Pancultures and catheter Tip negative to date - Infectious Disease is following and management of antibiotics - Afebrile greater than 48 hours. 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 - Typically the bone marrow biopsy to evaluate for response to treatment occurs about 21 days after Tx, although at this time will continue to monitor counts and await repeat per Dr. Rojas Abscessed tooth - Possible abscess for source of elevated fevers - Will collaborate with Oral Surgeon for recommendations, formal consult will be placed if felt necessary. Due to the current epidemic with COVID 19, patient did verbally consent to telemed visit. discussion with patient, review of labs, medications, and pertinent orders placed. Greater than 22 minutes spent during telemedicine visit.
[2019-09-06 16:46] LABS: Glucose,Whole Blood 88 mg/dL (75-99)
[2019-09-06] MEDS: metFORMIN 500 MG TAB PO SCH (17:22)
--- NOTE | 2019-09-06 19:56 | PN ---
PROGRESS NOTE DATE OF SERVICE: 09/06/2019 REASON FOR FOLLOWUP: Febrile neutropenia with right lower infected tooth. INTERVAL HISTORY: The patient is currently afebrile. He is feeling better. Overall pain and discomfort to the right lower jaw has improved. Denies having any chest pain, shortness of breath or cough. No abdominal pain or diarrhea. PHYSICAL EXAMINATION: Blood pressure 130/63 with a pulse of 99. temperature 99.2. He is 100% on room air. General description: The patient is a middle-aged male lying in bed in no distress. Respiratory system: Unlabored breathing. Clear to auscultation anteriorly. Heart S1, S2. Regular rate and rhythm. Abdomen soft. No tenderness. LABS: Hemoglobin is 6.7, white count 0.1, platelet count is 12, creatinine 0.45. CT of the jaw negative for any abscess yesterday. Catheter tip culture negative. Blood culture negative. DIAGNOSTIC IMPRESSION AND PLAN: Patient with febrile neutropenia in this patient who did have evidence of right lower jaw infected tooth. The patient is currently covered with Unasyn to continue. Recommend to keep the patient IV over the weekend. Hopefully finish therapy with oral Augmentin if the patient continues to improve and monitor his clinical course closely. MMODL / IJN: [id number] /
[2019-09-06 20:43] LABS: Glucose,Whole Blood 176 mg/dL (75-99)
[2019-09-06] MEDS: VENLAFAXINE HCL ER 150 MG CAP PO SCH (21:27)
[2019-09-06] MEDS: ACETAMINOPHEN TAB 325 MG TAB PO PRN (21:28)
[2019-09-06] MEDS: METOPROLOL TARTRATE 25 MG TAB PO SCH (21:28)
[2019-09-06] MEDS: HYDROcodone/APAP 10-325MG 1 EACH TAB PO PRN (21:29)
[2019-09-06] MEDS: SODIUM CHLORIDE 0.9% 1,000 ML IV SCH (21:30)
[2019-09-06] MEDS: MONTELUKAST 10 MG TAB PO SCH (21:30)
[2019-09-07 05:52] LABS: Glucose,Whole Blood 108 mg/dL (75-99)
[2019-09-07 06:25] LABS: HGB 7.3 gm/dL (13.0-17.5); MCH 29.3 pg (25.0-35.0); MCHC 34.9 g/dL (31.0-37.0); MCV 84.1 fL (80.0-100.0); Mean Platelet Volume 12.2; RDW 12.7 % (11.5-15.5)
[2019-09-07] MEDS: AMPICILLIN-SULBACTAM 3 GM in SODIUM CHLORIDE 0.9% 100 ML IVPB SCH ×3 (06:26→18:32)
[2019-09-07 06:33] LABS: ALT 35 U/L (4-49); AST 12 U/L (17-59); African American GFR (CKD) >90 (>60 ml/min/1.73 sqM); Albumin 3.2 g/dL (3.5-5.0); Alkaline Phosphatase 68 U/L (38-126); Anion Gap 9 mmol/L; Blood Urea Nitrogen 13 mg/dL (9-20); Calcium 8.7 mg/dL (8.4-10.2); Carbon Dioxide 29 mmol/L (22-30); Chloride 103 mmol/L (98-107); Glucose 93 mg/dL (74-99); Non-African American GFR(CKD) >90 (>60 ml/min/1.73 sqM); Potassium 4.7 mmol/L (3.5-5.1); Sodium 141 mmol/L (137-145); Total Bilirubin 0.8 mg/dL (0.2-1.3); Total Protein 5.9 g/dL (6.3-8.2)
[2019-09-07 06:40] LABS: Platelet Count 7 k/uL (150-450); WBC 0.2 k/uL (3.8-10.6)
[2019-09-07] MEDS: FLUTICASONE 110 MCG INHALER INHALATION SCH ×2 (07:38→20:03)
[2019-09-07] MEDS: ACYCLOVIR 200 MG CAP PO SCH ×2 (08:41→20:35)
[2019-09-07] MEDS: VENLAFAXINE HCL ER 150 MG CAP PO SCH ×2 (08:41→21:11)
[2019-09-07] MEDS: VORICONAZOLE 200 MG TAB PO SCH (08:42)
[2019-09-07] MEDS: PANTOPRAZOLE 40 MG/10 ML VIAL IV SCH (09:24)
[2019-09-07] MEDS: DIVALPROEX 500 MG TABLET.DR PO SCH ×2 (09:24→20:34)
[2019-09-07 12:00] LABS: Glucose,Whole Blood 140 mg/dL (75-99)
--- NOTE | 2019-09-07 13:52 | P.PN ---
Subjective Progress Note Date: 09/07/19 Fransisco Burnham is a 48-year-old male well-known to my practice who presented to [facility] emergency room with a chief complaint of fever. On presentation temperature was 104.4 heart rate was 119, patient has known history of leukemia he just recently received a course of chemotherapy and was discharged home less than 1 week ago, his white blood count on presentation was 0 he was admitted to oncology floor and was started on IV antibiotics, consultation for oncology and infectious disease were initiated. On 09/03/2019 patient was seen and examined on the medical floor he is alert and oriented 3 in no apparent distress, there is no fever or chills no headache or dizziness no chest pain no shortness of breath no cough no nausea or vomiting no abdominal pain no diarrhea and no urinary symptoms. Patient remains on IV antibiotic, he remains neutropenic at this time. On 09/04/2019 Patient was seen and examined on the medical floor he is alert and oriented 3 in no distress there is no fever or chills no headache or dizziness no chest pain no shortness of breath no cough no nausea or vomiting no abdominal pain no diarrhea no burning was urination no frequency or urgency and no hematuria white blood count remained 0.1 On 09/05/2019 patient was seen and examined on the medical floor he is alert and oriented 3 in no distress he is complaining of right lower tooth pain with evidence of abscess otherwise he denies any complaints there is no fever or chills no headache or dizziness no chest pain no shortness of breath no cough no nausea or vomiting no abdominal pain no diarrhea and no urinary symptoms. On 09/06/2019 patient was seen and examined on the medical floor he is alert and oriented 3 in no apparent distress he is complaining of right lower tooth pain otherwise he denies any complaints there is no fever or chills no headache or dizziness no chest pain no shortness of breath no cough no nausea or vomiting no abdominal pain no diarrhea no blood in the stools no burning was urination no frequency or urgency and no hematuria patient remains neutropenic with a white blood count of 0.1 On 09/07/2019 patient was seen and examined on the medical floor he is tooth pain has been improving, he is alert and oriented 3 and otherwise he denies any complaints there is no fever or chills no headache or dizziness no chest pain no shortness of breath no cough no nausea or vomiting no abdominal pain no diarrhea no blood in the stools no burning with urination no frequency or urgency and no hematuria. Yesterday I had a prolonged discussion with Dr. Delgadillo over the phone, he does not feel that any surgical intervention is advised that this time as the risk is higher than benefit especially in view of the Covid 19 epidemic he feels that patient may be better served being treated with IV antibiotics and have his platelet count improve, and then have a procedure as outpatient if necessary. Objective - Vital Signs Vital signs: Vital Signs Temp 98.5 F 09/07/19 07:00 Pulse 104 H 09/07/19 08:00 Resp 16 09/07/19 08:00 BP 116/70 09/07/19 07:00 Pulse Ox 98 09/07/19 07:00 Intake & Output 09/06/19 09/07/19 09/07/19 18:59 06:59 18:59 Intake Total 1310 60 240 Output Total 980 225 300 Balance 330 -165 -60 Intake: IV 160 60 Ampicillin-Sulbactam 3 gm 100 In Sodium Chloride 0.9% 100 ml @ 200 mls/hr IVPB Q6HR [facility] Rx#:[id number] Invasive Line 5 30 30 Invasive Line 6 30 30 Oral 840 240 Blood Product 310 Rc Irr As1 Unit 310 [id number] Output: Urine 980 225 300 Other: Voiding Method Urinal Urinal Urinal - Exam In general patient is alert and oriented 3 in no apparent distress HEENT head normocephalic and atraumatic Neck is supple no JVD no goiter no lymphadenopathy Chest exam reveals a few scattered crackles no wheezing Cardiac exam reveals regular heart sounds no gallops no murmurs Abdomen is soft nontender no organomegaly with normal bowel sounds Extremity exam reveals no edema no cyanosis or clubbing Neurological examination reveals no gross focal neurological deficit - Labs CBC & Chem 7: 09/07/19 05:48 09/07/19 05:48 Labs: Abnormal Lab Results - Last 24 Hours (Table) 09/06/19 09/06/19 09/07/19 Range/Units 07:51 20:41 05:48 WBC 0.2 L* (3.8-10.6) k/uL RBC 2.50 L (4.30-5.90) m/uL Hgb 7.3 L (13.0-17.5) gm/dL Hct 21.0 L (39.0-53.0) % Plt Count 7 L* (150-450) k/uL Creatinine (0.66-1.25) mg/dL POC Glucose (mg/dL) 176 H (75-99) mg/dL AST (17-59) U/L Total Protein (6.3-8.2) g/dL Albumin (3.5-5.0) g/dL Crossmatch See Detail 09/07/19 09/07/19 09/07/19 Range/Units 05:48 05:51 11:48 WBC (3.8-10.6) k/uL RBC (4.30-5.90) m/uL Hgb (13.0-17.5) gm/dL Hct (39.0-53.0) % Plt Count (150-450) k/uL Creatinine 0.46 L (0.66-1.25) mg/dL POC Glucose (mg/dL) 108 H 140 H (75-99) mg/dL AST 12 L (17-59) U/L Total Protein 5.9 L (6.3-8.2) g/dL Albumin 3.2 L (3.5-5.0) g/dL Crossmatch Microbiology - Last 24 Hours (Table) 09/01/19 20:53 Blood Culture - Preliminary Blood No Growth after 120 hours Assessment and Plan Plan: #1 febrile illness with neutropenia, source of infection is not entirely clear a t this time influenza A and B were negative urine analysis without any evidence of urinary tract infection, blood culture is pending. #2 acute erythroid leukemia, patient received chemotherapy at [facility] and was discharged home less than 1 week ago #3 anemia hemoglobin on presentation 4.8 RBC transfusion ordered by oncology #4 thrombocytopenia platelet count is down to 3 no evidence of bleeding at this time #5 lactic acidosis, on presentation lactic acid level was 2.7 down to 1.3, continue IV hydration and IV antibiotics. #6 underlying history of diabetes mellitus maintained on metformin continue #7 underlying history of hypertension maintained on metoprolol continue #8 underlying history of depression maintained on Effexor continue. #9 tooth abscess consultation for oral surgery was initiated continue with current antibiotics, we are hoping for intervention by oral surgery during this admission, patient will need platelet transfusion prior to procedure At this time home medication reviewed and reordered Continue with IV antibiotics and IV hydration RBC transfusion was ordered by hematology Consultation for hematology oncology and infectious disease are initiated Will follow closely
[2019-09-07] MEDS: ACETAMINOPHEN TAB 325 MG TAB PO PRN (14:12)
[2019-09-07 17:29] LABS: Glucose,Whole Blood 134 mg/dL (75-99)
[2019-09-07] MEDS: prednisoLONE ACETATE 1% OPHTH DROPS 5 ML BTL BOTH EYES SCH ×2 (18:33→20:37)
[2019-09-07] MEDS: metFORMIN 500 MG TAB PO SCH (18:33)
[2019-09-07] MEDS: MONTELUKAST 10 MG TAB PO SCH (20:34)
[2019-09-07] MEDS: METOPROLOL TARTRATE 25 MG TAB PO SCH (20:35)
[2019-09-07] MEDS: HYDROcodone/APAP 10-325MG 1 EACH TAB PO PRN (20:39)
[2019-09-07 21:08] LABS: Glucose,Whole Blood 164 mg/dL (75-99)
[2019-09-07] MEDS: ZOLPIDEM 5 MG TAB PO PRN (21:11)
[2019-09-07] MEDS: SODIUM CHLORIDE 0.9% 1,000 ML IV SCH (22:28)
[2019-09-08] MEDS: AMPICILLIN-SULBACTAM 3 GM in SODIUM CHLORIDE 0.9% 100 ML IVPB SCH ×4 (03:13→17:16)
[2019-09-08 06:12] LABS: Glucose,Whole Blood 104 mg/dL (75-99)
[2019-09-08 07:00] LABS: MCH 28.8 pg (25.0-35.0); MCHC 33.9 g/dL (31.0-37.0); Mean Platelet Volume 8.1; RBC 2.34 m/uL (4.30-5.90); RDW 12.5 % (11.5-15.5)
[2019-09-08 07:04] LABS: Platelet Count 7 k/uL (150-450); WBC 0.2 k/uL (3.8-10.6)
[2019-09-08 07:06] LABS: HCT 19.9 % (39.0-53.0); HGB 6.7 gm/dL (13.0-17.5)
[2019-09-08] MEDS: FLUTICASONE 110 MCG INHALER INHALATION SCH ×3 (07:20→18:58)
[2019-09-08 07:24] LABS: ALT 34 U/L (4-49); AST 13 U/L (17-59); African American GFR (CKD) >90 (>60 ml/min/1.73 sqM); Albumin 3.1 g/dL (3.5-5.0); Alkaline Phosphatase 69 U/L (38-126); Anion Gap 7 mmol/L; Blood Urea Nitrogen 11 mg/dL (9-20); Calcium 8.5 mg/dL (8.4-10.2); Carbon Dioxide 25 mmol/L (22-30); Chloride 103 mmol/L (98-107); Glucose 87 mg/dL (74-99); Non-African American GFR(CKD) >90 (>60 ml/min/1.73 sqM); Potassium 4.5 mmol/L (3.5-5.1); Sodium 135 mmol/L (137-145); Total Bilirubin 0.8 mg/dL (0.2-1.3); Total Protein 5.9 g/dL (6.3-8.2)
[2019-09-08] MEDS: VENLAFAXINE HCL ER 150 MG CAP PO SCH ×2 (09:08→20:47)
[2019-09-08] MEDS: PANTOPRAZOLE 40 MG/10 ML VIAL IV SCH (09:08)
[2019-09-08] MEDS: VORICONAZOLE 200 MG TAB PO SCH (09:08)
[2019-09-08] MEDS: DIVALPROEX 500 MG TABLET.DR PO SCH ×2 (09:08→20:47)
[2019-09-08] MEDS: ACYCLOVIR 200 MG CAP PO SCH ×2 (09:08→20:47)
[2019-09-08] MEDS: prednisoLONE ACETATE 1% OPHTH DROPS 5 ML BTL BOTH EYES SCH ×3 (09:08→20:47)
--- NOTE | 2019-09-08 09:08 | P.PN ---
Subjective Progress Note Date: 09/07/19 Principal diagnosis: AML, Pancytopenia Platlets ar 7 today, transfusion ordered. CBC in am, denies N/V. No pain at this time. Feels weak no signs of bleeding. Objective - Vital Signs Vital signs: Vital Signs Temp 100.0 F H 09/07/19 17:40 Pulse 86 09/07/19 17:40 Resp 16 09/07/19 17:40 BP 118/69 09/07/19 17:40 Pulse Ox 100 09/07/19 17:40 Intake & Output 09/06/19 09/07/19 09/07/19 18:59 06:59 18:59 Intake Total 1310 60 802 Output Total 980 225 800 Balance 330 -165 2 Intake: IV 160 60 Ampicillin-Sulbactam 3 gm 100 In Sodium Chloride 0.9% 100 ml @ 200 mls/hr IVPB Q6HR [facility] Rx#:[id number] Invasive Line 5 30 30 Invasive Line 6 30 30 Oral 840 480 Blood Product 310 322 Platelet Irr Pheresis Pas 322 -C Unit [id number] Rc Irr As1 Unit 310 [id number] Output: Urine 980 225 800 Other: Voiding Method Urinal Urinal Urinal - Exam Telemed visit, no acute distress, alert and oriented. - Labs CBC & Chem 7: 09/07/19 05:48 09/07/19 05:48 Labs: Abnormal Lab Results - Last 24 Hours (Table) 09/06/19 09/06/19 09/07/19 Range/Units 07:51 20:41 05:48 WBC 0.2 L* (3.8-10.6) k/uL RBC 2.50 L (4.30-5.90) m/uL Hgb 7.3 L (13.0-17.5) gm/dL Hct 21.0 L (39.0-53.0) % Plt Count 7 L* (150-450) k/uL Creatinine (0.66-1.25) mg/dL POC Glucose (mg/dL) 176 H (75-99) mg/dL AST (17-59) U/L Total Protein (6.3-8.2) g/dL Albumin (3.5-5.0) g/dL Crossmatch See Detail 09/07/19 09/07/19 09/07/19 Range/Units 05:48 05:51 11:48 WBC (3.8-10.6) k/uL RBC (4.30-5.90) m/uL Hgb (13.0-17.5) gm/dL Hct (39.0-53.0) % Plt Count (150-450) k/uL Creatinine 0.46 L (0.66-1.25) mg/dL POC Glucose (mg/dL) 108 H 140 H (75-99) mg/dL AST 12 L (17-59) U/L Total Protein 5.9 L (6.3-8.2) g/dL Albumin 3.2 L (3.5-5.0) g/dL Crossmatch 09/07/19 Range/Units 17:17 WBC (3.8-10.6) k/uL RBC (4.30-5.90) m/uL Hgb (13.0-17.5) gm/dL Hct (39.0-53.0) % Plt Count (150-450) k/uL Creatinine (0.66-1.25) mg/dL POC Glucose (mg/dL) 134 H (75-99) mg/dL AST (17-59) U/L Total Protein (6.3-8.2) g/dL Albumin (3.5-5.0) g/dL Crossmatch Microbiology - Last 24 Hours (Table) 09/01/19 20:53 Blood Culture - Preliminary Blood No Growth after 120 hours Assessment and Plan Plan: Pancytopenia due to Antineoplastic Chemotherapy and Acute Myeloid Leukemia - Remains Transfusion Dependent, requiring platelets today for count of 8K - Conservative transfusions with irradiated blood products. - Transfuse to keep hemoglobin 7 or higher. No transfusion today - Transfuse to keep platelets 10,000 or higher and less symptomatic. Platelet count is 7K today and transfusion ordered - He is not in confirmed remission at this time, therefore no colony stimulating products advised. - Monitor Daily CBC with Differential Febrile neutropenia - Fevers improved - Possible Source Abscess Tooth - Pancultures and catheter Tip negative to date - Infectious Disease is following and management of antibiotics - Afebrile greater than 48 hours. 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 - Typically the bone marrow biopsy to evaluate for response to treatment occurs about 21 days after Tx, although at this time will continue to monitor counts and await repeat per Dr. Rojas Abscessed tooth - Possible abscess for source of elevated fevers - Will collaborate with Oral Surgeon for recommendations, formal consult will be placed if felt necessary. Primary team discussed with Dr. Delgadillo and felt grea ter risk for surgical intervention at this time. Due to the current epidemic with COVID 19, patient did verbally consent to telemed visit. discussion with patient, review of labs, medications, and pertinent orders placed. Greater than 22 minutes spent during telemedicine visit.
[2019-09-08 11:52] LABS: Glucose,Whole Blood 138 mg/dL (75-99)
[2019-09-08] MEDS: ACETAMINOPHEN TAB 325 MG TAB PO PRN (13:53)
--- NOTE | 2019-09-08 14:07 | P.PN ---
Subjective Progress Note Date: 09/08/19 Fransisco Burnham is a 48-year-old male well-known to my practice who presented to [facility] emergency room with a chief complaint of fever. On presentation temperature was 104.4 heart rate was 119, patient has known history of leukemia he just recently received a course of chemotherapy and was discharged home less than 1 week ago, his white blood count on presentation was 0 he was admitted to oncology floor and was started on IV antibiotics, consultation for oncology and infectious disease were initiated. On 09/03/2019 patient was seen and examined on the medical floor he is alert and oriented 3 in no apparent distress, there is no fever or chills no headache or dizziness no chest pain no shortness of breath no cough no nausea or vomiting no abdominal pain no diarrhea and no urinary symptoms. Patient remains on IV antibiotic, he remains neutropenic at this time. On 09/04/2019 Patient was seen and examined on the medical floor he is alert and oriented 3 in no distress there is no fever or chills no headache or dizziness no chest pain no shortness of breath no cough no nausea or vomiting no abdominal pain no diarrhea no burning was urination no frequency or urgency and no hematuria white blood count remained 0.1 On 09/05/2019 patient was seen and examined on the medical floor he is alert and oriented 3 in no distress he is complaining of right lower tooth pain with evidence of abscess otherwise he denies any complaints there is no fever or chills no headache or dizziness no chest pain no shortness of breath no cough no nausea or vomiting no abdominal pain no diarrhea and no urinary symptoms. On 09/06/2019 patient was seen and examined on the medical floor he is alert and oriented 3 in no apparent distress he is complaining of right lower tooth pain otherwise he denies any complaints there is no fever or chills no headache or dizziness no chest pain no shortness of breath no cough no nausea or vomiting no abdominal pain no diarrhea no blood in the stools no burning was urination no frequency or urgency and no hematuria patient remains neutropenic with a white blood count of 0.1 On 09/07/2019 patient was seen and examined on the medical floor he is tooth pain has been improving, he is alert and oriented 3 and otherwise he denies any complaints there is no fever or chills no headache or dizziness no chest pain no shortness of breath no cough no nausea or vomiting no abdominal pain no diarrhea no blood in the stools no burning with urination no frequency or urgency and no hematuria. Yesterday I had a prolonged discussion with Dr. Delgadillo over the phone, he does not feel that any surgical intervention is advised that this time as the risk is higher than benefit especially in view of the Covid 19 epidemic he feels that patient may be better served being treated with IV antibiotics and have his platelet count improve, and then have a procedure as outpatient if necessary. On 09/08/2019 patient was seen and examined on the medical floor he is alert and oriented 3 in no apparent distress, he is still having episodes of fever white blood count is still significantly low at 0.2 he is still complaining of some tooth pain otherwise he denies any complaints there is no fever or chills no headache or dizziness no chest pain no shortness of breath no cough no nausea or vomiting no abdominal pain no diarrhea no burning was urination no frequency or urgency no hematuria and no blood in the stools Objective - Vital Signs Vital signs: Vital Signs Temp 100.8 F H 09/08/19 09:25 Pulse 106 H 09/08/19 09:25 Resp 16 09/08/19 09:25 BP 116/69 09/08/19 09:25 Pulse Ox 98 09/08/19 09:25 Intake & Output 09/07/19 09/08/19 09/08/19 18:59 06:59 18:59 Intake Total 802 260 360 Output Total 1250 1150 Balance -448 -890 360 Intake: IV 80 Sodium Chloride 0.9% 1, 80 000 ml @ 20 mls/hr IV . Q24H [facility] Rx#:[id number] Intake, IV Titration 180 Amount Ampicillin-Sulbactam 3 gm 100 In Sodium Chloride 0.9% 100 ml @ 200 mls/hr IVPB Q6HR [facility] Rx#:[id number] Sodium Chloride 0.9% 1, 80 000 ml @ 20 mls/hr IV . Q24H [facility] Rx#:[id number] Oral 480 360 Blood Product 322 0 Platelet Irr Pheresis 0 Acda1 Unit [id number] Platelet Irr Pheresis Pas 322 -C Unit [id number] Output: Urine 1250 1150 Other: Voiding Method Urinal Urinal # Voids 2 - Exam In general patient is alert and oriented 3 in no apparent distress HEENT head normocephalic and atraumatic Neck is supple no JVD no goiter no lymphadenopathy Chest exam reveals a few scattered crackles no wheezing Cardiac exam reveals regular heart sounds no gallops no murmurs Abdomen is soft nontender no organomegaly with normal bowel sounds Extremity exam reveals no edema no cyanosis or clubbing Neurological examination reveals no gross focal neurological deficit - Labs CBC & Chem 7: 09/08/19 06:18 09/08/19 06:18 Labs: Abnormal Lab Results - Last 24 Hours (Table) 09/06/19 09/07/19 09/07/19 Range/Units 07:51 17:17 21:07 WBC (3.8-10.6) k/uL RBC (4.30-5.90) m/uL Hgb (13.0-17.5) gm/dL Hct (39.0-53.0) % Plt Count (150-450) k/uL Sodium (137-145) mmol/L Creatinine (0.66-1.25) mg/dL POC Glucose (mg/dL) 134 H 164 H (75-99) mg/dL AST (17-59) U/L Total Protein (6.3-8.2) g/dL Albumin (3.5-5.0) g/dL Crossmatch See Detail 09/08/19 09/08/19 09/08/19 Range/Units 06:10 06:18 06:18 WBC 0.2 L* (3.8-10.6) k/uL RBC 2.34 L (4.30-5.90) m/uL Hgb 6.7 L* (13.0-17.5) gm/dL Hct 19.9 L* (39.0-53.0) % Plt Count 7 L* (150-450) k/uL Sodium 135 L (137-145) mmol/L Creatinine 0.46 L (0.66-1.25) mg/dL POC Glucose (mg/dL) 104 H (75-99) mg/dL AST 13 L (17-59) U/L Total Protein 5.9 L (6.3-8.2) g/dL Albumin 3.1 L (3.5-5.0) g/dL Crossmatch 09/08/19 Range/Units 11:43 WBC (3.8-10.6) k/uL RBC (4.30-5.90) m/uL Hgb (13.0-17.5) gm/dL Hct (39.0-53.0) % Plt Count (150-450) k/uL Sodium (137-145) mmol/L Creatinine (0.66-1.25) mg/dL POC Glucose (mg/dL) 138 H (75-99) mg/dL AST (17-59) U/L Total Protein (6.3-8.2) g/dL Albumin (3.5-5.0) g/dL Crossmatch Microbiology - Last 24 Hours (Table) 09/01/19 20:53 Blood Culture - Final Blood No Growth after 144 hours Assessment and Plan Plan: #1 febrile illness with neutropenia, source of infection is not entirely clear at this time influenza A and B were negative urine analysis without any evidence of urinary tract infection, blood culture is pending. #2 acute erythroid leukemia, patient received chemotherapy at [facility] and was discharged home less than 1 week ago #3 anemia hemoglobin on presentation 4.8 RBC transfusion ordered by oncology #4 thrombocytopenia platelet count is down to 3 no evidence of bleeding at this time #5 lactic acidosis, on presentation lactic acid level was 2.7 down to 1.3, continue IV hydration and IV antibiotics. #6 underlying history of diabetes mellitus maintained on metformin continue #7 underlying history of hypertension maintained on metoprolol continue #8 underlying history of depression maintained on Effexor continue. #9 tooth abscess consultation for oral surgery was initiated continue with current antibiotics, we are hoping for intervention by oral surgery during this admission, patient will need platelet transfusion prior to procedure At this time home medication reviewed and reordered Continue with IV antibiotics and IV hydration RBC transfusion was ordered by hematology Consultation for hematology oncology and infectious disease are initiated Will follow closely
--- NOTE | 2019-09-08 15:42 | P.PN ---
Subjective Progress Note Date: 09/08/19 Principal diagnosis: neutropenic fever, pancytopenia secondary to acute erythroid leukemia and treatment for the same in follow-up today patient states feeling fine, he had a fever last night, none this AM, denies chills oral irritation, sore throat, cough, SOB, N,V, jaw tenderness is better, no abdominal pain, acute changes in bowel or bladder habits, hematuria, hematochezia or melena or bleeding to report. Objective - Vital Signs Vital signs: Vital Signs Temp 100.8 F H 09/08/19 09:25 Pulse 106 H 09/08/19 09:25 Resp 16 09/08/19 09:25 BP 116/69 09/08/19 09:25 Pulse Ox 98 09/08/19 09:25 Intake & Output 09/07/19 09/08/19 09/08/19 18:59 06:59 18:59 Intake Total 802 260 360 Output Total 1250 1150 Balance -448 -890 360 Intake: IV 80 Sodium Chloride 0.9% 1, 80 000 ml @ 20 mls/hr IV . Q24H [facility] Rx#:[id number] Intake, IV Titration 180 Amount Ampicillin-Sulbactam 3 gm 100 In Sodium Chloride 0.9% 100 ml @ 200 mls/hr IVPB Q6HR [facility] Rx#:[id number] Sodium Chloride 0.9% 1, 80 000 ml @ 20 mls/hr IV . Q24H [facility] Rx#:[id number] Oral 480 360 Blood Product 322 0 Platelet Irr Pheresis 0 Acda1 Unit [id number] Platelet Irr Pheresis Pas 322 -C Unit [id number] Output: Urine 1250 1150 Other: Voiding Method Urinal Urinal # Voids 2 - Constitutional General appearance: Present: average body habitus, cooperative, no acute distress - EENT EENT Comment(s): less facial swelling Eyes: Present: anicteric sclerae, EOMI ENT: Present: hearing grossly normal - Respiratory Details: respirations - Neurologic Neurologic: Present: CNII-XII intact - Musculoskeletal Musculoskeletal: Present: strength equal bilaterally - Psychiatric Psychiatric: Present: A&O x's 3, appropriate affect, intact judgment & insight - Labs CBC & Chem 7: 09/08/19 06:18 09/08/19 06:18 Labs: Abnormal Lab Results - Last 24 Hours (Table) 09/06/19 09/07/19 09/07/19 Range/Units 07:51 17:17 21:07 WBC (3.8-10.6) k/uL RBC (4.30-5.90) m/uL Hgb (13.0-17.5) gm/dL Hct (39.0-53.0) % Plt Count (150-450) k/uL Sodium (137-145) mmol/L Creatinine (0.66-1.25) mg/dL POC Glucose (mg/dL) 134 H 164 H (75-99) mg/dL AST (17-59) U/L Total Protein (6.3-8.2) g/dL Albumin (3.5-5.0) g/dL Crossmatch See Detail 09/08/19 09/08/19 09/08/19 Range/Units 06:10 06:18 06:18 WBC 0.2 L* (3.8-10.6) k/uL RBC 2.34 L (4.30-5.90) m/uL Hgb 6.7 L* (13.0-17.5) gm/dL Hct 19.9 L* (39.0-53.0) % Plt Count 7 L* (150-450) k/uL Sodium 135 L (137-145) mmol/L Creatinine 0.46 L (0.66-1.25) mg/dL POC Glucose (mg/dL) 104 H (75-99) mg/dL AST 13 L (17-59) U/L Total Protein 5.9 L (6.3-8.2) g/dL Albumin 3.1 L (3.5-5.0) g/dL Crossmatch 09/08/19 Range/Units 11:43 WBC (3.8-10.6) k/uL RBC (4.30-5.90) m/uL Hgb (13.0-17.5) gm/dL Hct (39.0-53.0) % Plt Count (150-450) k/uL Sodium (137-145) mmol/L Creatinine (0.66-1.25) mg/dL POC Glucose (mg/dL) 138 H (75-99) mg/dL AST (17-59) U/L Total Protein (6.3-8.2) g/dL Albumin (3.5-5.0) g/dL Crossmatch Microbiology - Last 24 Hours (Table) 09/01/19 20:53 Blood Culture - Final Blood No Growth after 144 hours - Imaging and Cardiology CT jaw report reviewed Assessment and Plan (1) Pancytopenia due to antineoplastic chemotherapy Narrative/Plan: Conservative transfusions with irradiated blood products. Transfuse to keep hemoglobin 7 or higher. Transfusion today, hemoglobin 6.7. Transfuse to keep platelets 10,000 or higher and less symptomatic. Platelet count is 7000 today White blood cell count is 0.2. Patient is not a confirmed remission, no G-CSF at this time. Current Visit: Yes Status: Acute Priority: High Code(s): D61.810 - ANTINEOPLASTIC CHEMOTHERAPY INDUCED PANCYTOPENIA; T45.1X5A - ADVERSE EFFECT OF ANTINEOPLASTIC AND IMMUNOSUP DRUGS, INIT SNOMED Code(s): 075528428584416 (2) Febrile neutropenia Narrative/Plan: Pancultures negative, PICC line culture negative. Empiric antibiotics cont. ID adjusted therapy. No GCSF, pt not confirmed remission Fever last night Current Visit: Yes Status: Acute Priority: High Code(s): D70.9 - NEUTROPENIA, UNSPECIFIED; R50.81 - FEVER PRESENTING WITH CONDITIONS CLASSIFIED ELSEWHERE SNOMED Code(s): 256957143 (3) Acute erythroid leukemia Narrative/Plan: Patient is currently being treated with salvage HiDAC regimen. Unfortunately, previous treatments did not provide an adequate enough marrow response for him to proceed with bone marrow transplant. He is status post the first cycle of this regimen, completed just about 10 days ago. Typically the bone marrow biopsy to evaluate for response to treatment occurs about 21 days after Tx, sched for 09/16. Pt is aware of his condition, prognosis and possible outcomes, plan for bone marrow. Current Visit: Yes Status: Chronic Priority: High Code(s): C94.00 - ACUTE ERYTHROID LEUKEMIA, NOT HAVING ACHIEVED REMISSION SNOMED Code(s): 70771462 (4) Abscessed tooth Narrative/Plan: No CT evidence of abscess. Fever pattern has yet to deon despite abx and negative cultures so, concerning that the teeth are the source. Spoke with Oral Surgeon today and Attending. Going to consider extraction, will contact in AM with update on pt. Current Visit: Yes Status: Acute Priority: High Code(s): K04.7 - PERIAPICAL ABSCESS WITHOUT SINUS SNOMED Code(s): 625165566
[2019-09-08 16:44] LABS: Glucose,Whole Blood 118 mg/dL (75-99)
[2019-09-08] MEDS: metFORMIN 500 MG TAB PO SCH (17:16)
[2019-09-08 20:06] LABS: Glucose,Whole Blood 197 mg/dL (75-99)
[2019-09-08] MEDS: HYDROcodone/APAP 10-325MG 1 EACH TAB PO PRN (20:46)
[2019-09-08] MEDS: ZOLPIDEM 5 MG TAB PO PRN (20:46)
[2019-09-08] MEDS: MONTELUKAST 10 MG TAB PO SCH (20:47)
[2019-09-08] MEDS: METOPROLOL TARTRATE 25 MG TAB PO SCH (20:47)
--- NOTE | 2019-09-08 22:09 | PN ---
PROGRESS NOTE DATE OF SERVICE: 09/08/2019 REASON FOR FOLLOWUP: 1. Febrile neutropenia. 2. Persistent fever. INTERVAL HISTORY: The patient has been running a fever apparently for the last 24 hours. It started around 1 p.m. yesterday. However, the patient has been getting platelet transfusion. The patient mentioned he had a fever and did not even feel it. He did not have any rigors or chills. The patient denies having any headache. His right lower jaw discomfort has improved. No nausea, no vomiting. No abdominal pain or diarrhea. PHYSICAL EXAMINATION: Blood pressure 113/62 with a pulse of 90, temperature 100.3. He is 100% on room air. General description is a middle-aged male lying in bed in no distress. RESPIRATORY SYSTEM: Unlabored breathing. Clear to auscultation anteriorly. HEART: S1, S2. Regular rate and rhythm. ABDOMEN: Soft. No tenderness. LABS: BUN of 11, creatinine 0.46. Blood cultures have been negative. which is currently pending. DIAGNOSTIC IMPRESSION AND PLAN: Patient with febrile neutropenia in this patient who did have right lower jaw infected tooth, for which the patient has been on Unasyn. He did have a CT that was negative for any abscess collection. Patient now with fever, questionable underlying malignancy more likely, as the patient does not have any rigors or chills with these episodes of fever and no other obvious focus of infection. CRP has been requested. Blood culture has been repeated. Those will be followed and will adjust antibiotic further if needed. MMODL / IJN: [id number] /
[2019-09-09] MEDS: oxyCODONE-APAP 5-325MG 1 EACH TAB PO PRN ×2 (00:26→21:14)
[2019-09-09] MEDS: ACETAMINOPHEN TAB 325 MG TAB PO PRN ×2 (00:26→15:28)
[2019-09-09] MEDS: SODIUM CHLORIDE 0.9% 1,000 ML IV SCH (00:28)
[2019-09-09] MEDS: AMPICILLIN-SULBACTAM 3 GM in SODIUM CHLORIDE 0.9% 100 ML IVPB SCH ×4 (00:28→18:23)
[2019-09-09 06:48] LABS: Glucose,Whole Blood 95 mg/dL (75-99)
[2019-09-09 07:15] LABS: African American GFR (CKD) >90 (>60 ml/min/1.73 sqM); Anion Gap 7 mmol/L; Blood Urea Nitrogen 13 mg/dL (9-20); Calcium 8.4 mg/dL (8.4-10.2); Carbon Dioxide 28 mmol/L (22-30); Chloride 103 mmol/L (98-107); Glucose 90 mg/dL (74-99); Non-African American GFR(CKD) >90 (>60 ml/min/1.73 sqM); Potassium 4.3 mmol/L (3.5-5.1); Sodium 138 mmol/L (137-145)
[2019-09-09 07:18] LABS: MCH 29.5 pg (25.0-35.0); MCHC 35.3 g/dL (31.0-37.0); MCV 83.6 fL (80.0-100.0); Mean Platelet Volume 10.3; RBC 2.34 m/uL (4.30-5.90); RDW 12.7 % (11.5-15.5)
[2019-09-09 07:21] LABS: HGB 6.9 gm/dL (13.0-17.5); WBC 0.1 k/uL (3.8-10.6)
[2019-09-09 07:22] LABS: HCT 19.5 % (39.0-53.0)
[2019-09-09 07:23] LABS: Platelet Count 12 k/uL (150-450)
[2019-09-09] MEDS: DIVALPROEX 500 MG TABLET.DR PO SCH ×2 (07:46→20:52)
[2019-09-09] MEDS: ACYCLOVIR 200 MG CAP PO SCH ×2 (07:46→20:52)
[2019-09-09] MEDS: PANTOPRAZOLE 40 MG TABLET PO SCH (07:46)
[2019-09-09] MEDS: prednisoLONE ACETATE 1% OPHTH DROPS 5 ML BTL BOTH EYES SCH ×4 (07:47→20:53)
[2019-09-09] MEDS: FLUTICASONE 110 MCG INHALER INHALATION SCH ×2 (07:47→19:45)
[2019-09-09 07:48] LABS: Poikilocytosis (M) Present
[2019-09-09 10:48] VITALS: BMI 26.8
--- NOTE | 2019-09-09 11:32 | P.GSCN ---
History of Present Illness Consult date: 09/09/19 Reason for Consult: Pancytopenia with intractable fevers: Rule out dental source Requesting physician: Guille Rojas History of present illness: This 48-year-old male presented to [facility] emergency room [facility] complaint of fever. Elevated temp upon presentation of 104.4. Known history of leukemia and mid discharged home approximately 1 week prior to his admission. Patient's white count has remained low throughout his admission and his fevers have continued to spike. Our initial plan was to maintain the patient with IV antibiotics and wait for his fevers to deon and then treat the patient as an outpatient. The hematology oncology department spoke with me yesterday and asked that I reevaluate the patient on the basis of his fevers continuing to spike. We discussed the risks and benefits in relational to COVID 19. Review of Systems - Constitutional Constitutional Comment(s): Alert and oriented 3 laying in bed comfortably - EENT EENT Comment(s): Reports tooth pain of the lower right improvement of the swelling but still cleaner to touch and difficulty eating. 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 Last Myocardial Infarction Date:: 2004 History of Any Multi-Drug Resistant Organisms: None Reported Past Surgical History: Heart Catheterization With Stent, Hernia Repair, Joint Replacement Additional Past Surgical History / Comment(s): Bone marrow aspirations/biopsies, right knee arthroscopy X3, right total knee replacement with revision, left knee arthroscopy, cardiac stent X1, stent placed for kidney stone and then removed, COLONOSCOPY, cervical and lumbar neurostimulator implants, left inguinal hernia repair. Past Anesthesia/Blood Transfusion Reactions: No Reported Reaction Additional Past Anesthesia/Blood Transfusion Reaction / Comm: Pt has received blood/platelets before with no reaction. Date of Last Stent Placement:: 2004 Past Psychological History: Anxiety, Bipolar, Depression Additional Psychological History / Comment(s): and lives with the and child and sister and brother in law. Medically disabled with neuropathy and bipolar disorder. experience- [employer]. International travel. 1 pet cats in the home instructed not to change the box and 1 dog. Smoking Status: Current every day smoker Past Alcohol Use History: None Reported Additional Past Alcohol Use History / Comment(s): STARTED SMOKING AT AGE 23(1994), Past Drug Use History: None Reported - Past Family History Father Family Medical History: Congestive Heart Failure (CHF), Deep Vein Thrombosis (DVT), Myocardial Infarction (NH), Pulmonary Embolus Additional Family Medical History / Comment(s): NH at age 38. "hole in colon". Mother Family Medical History: Cancer, COPD, Diabetes Mellitus, Hyperlipidemia Additional Family Medical History / Comment(s): Mother had breast and lung cancer. She of lung cancer in her 60s. Sister(s) Family Medical History: Diabetes Mellitus, Liver Disease Additional Family Medical History / Comment(s): Bi-polar, anxiety, hysterectomy, fatty liver. Brother(s) History Unknown: Yes Medications and Allergies Home Medications and Allergies Comment(s): Multiple ALLERGIES Home Medications Medication Instructions Recorded Confirmed Type Montelukast Sodium [Singulair] 10 mg PO HS 06/01/16 09/01/19 History Albuterol Inhaler (Bulk) [Ventolin 2 puff INHALATION RT-Q6H PRN 10/15/17 09/01/19 History Hfa Inhaler (Bulk)] Beclomethasone Dipropionate [Qvar 2 puff INHALATION RT-BID 10/15/17 09/01/19 History 80 mcg] Divalproex [Depakote] 500 mg PO BID tablet. 01/27/19 09/01/19 Rx metFORMIN HCL [Glucophage] 500 mg PO PC-SUPPER #0 02/19/19 09/01/19 Rx Metoprolol Tartrate [Lopressor] 25 mg PO HS 06/03/19 09/01/19 History Zolpidem [Ambien] 5 mg PO HS PRN #30 tab 06/09/19 09/01/19 Rx Venlafaxine HCl [Effexor XR] 150 mg PO HS 30 Days #30 tab 07/09/19 09/01/19 Rx HYDROcodone/APAP 10-325MG [[place] 1 tab PO TID PRN 08/08/19 09/01/19 History 10-325] Acyclovir [Zovirax] 400 mg PO BID #60 cap 08/27/19 09/01/19 Rx Baclofen [Lioresal] 5 mg PO BID PRN tab 08/27/19 09/01/19 Rx Doxycycline [Vibramycin] 100 mg PO BID #10 capsule 08/27/19 09/01/19 Rx Voriconazole 100 mg PO DAILY@1130 #30 tab 08/27/19 09/01/19 Rx prednisoLONE ACETATE 1% OPHTH 1 drops BOTH EYES QID ml 08/27/19 09/01/19 Rx [Pred Forte 1%] Allergies Allergy/AdvReac Type Severity Reaction Status Date / Time naproxen [From Naprosyn] Allergy Severe Rash/Hives Verified 09/01/19 21:30 vancomycin Allergy Severe Rash/Hives Verified 09/01/19 21:30 adhesive tape Allergy Intermediate Rash/Hives Verified 09/01/19 21:30 ibuprofen Allergy Intermediate Itching Verified 09/01/19 21:30 mold Allergy Unknown Verified 09/01/19 21:30 carrot AdvReac Severe Dyspnea Verified 09/01/19 21:30 chocolate flavor AdvReac Severe Dyspnea Verified 09/01/19 21:30 grass pollen-perennial rye, AdvReac Intermediate Dyspnea Verified 09/01/19 21:30 standar Surgical - Exam Vital Signs Temp Pulse Resp BP Pulse Ox 104.4 F H 119 H 20 107/65 100 09/01/19 20:42 09/01/19 20:42 09/01/19 20:42 09/01/19 20:42 09/01/19 20:42 The patient was able to sit up without difficulty slight diego involvement on the right side but nontender over the right area of the jaw proximally half a centimeter by centimeter area of swelling and a parasymphysis region with some tenderness. The patient reports that previously the swelling is worse and there was some numbness in his lower lip related to the swelling. Intraorally his mucous membranes are moist he's got some grossly decayed teeth all over his mouth but the tooth #29 and 31. The area of some vestibular swelling and redness. There is some spontaneous bleeding in the area of tooth #29. Results - Labs 09/09/19 06:16 09/09/19 06:16 Abnormal Lab Results - Last 24 Hours (Table) 09/06/19 09/08/19 09/08/19 Range/Units 07:51 06:18 06:18 WBC (3.8-10.6) k/uL RBC (4.30-5.90) m/uL Hgb (13.0-17.5) gm/dL Hct (39.0-53.0) % Plt Count (150-450) k/uL Creatinine (0.66-1.25) mg/dL POC Glucose (mg/dL) (75-99) mg/dL C-Reactive Protein 205.5 H (<10.0) mg/L Procalcitonin 0.38 H (0.02-0.09) ng/mL Crossmatch See Detail 09/08/19 09/08/19 09/08/19 Range/Units 11:43 16:41 19:58 WBC (3.8-10.6) k/uL RBC (4.30-5.90) m/uL Hgb (13.0-17.5) gm/dL Hct (39.0-53.0) % Plt Count (150-450) k/uL Creatinine (0.66-1.25) mg/dL POC Glucose (mg/dL) 138 H 118 H 197 H (75-99) mg/dL C-Reactive Protein (<10.0) mg/L Procalcitonin (0.02-0.09) ng/mL Crossmatch 09/09/19 09/09/19 Range/Units 06:16 06:16 WBC 0.1 L* (3.8-10.6) k/uL RBC 2.34 L (4.30-5.90) m/uL Hgb 6.9 L* (13.0-17.5) gm/dL Hct 19.5 L* (39.0-53.0) % Plt Count 12 L* D (150-450) k/uL Creatinine 0.50 L (0.66-1.25) mg/dL POC Glucose (mg/dL) (75-99) mg/dL C-Reactive Protein (<10.0) mg/L Procalcitonin (0.02-0.09) ng/mL Crossmatch Microbiology - Last 24 Hours (Table) 09/07/19 23:03 Blood Culture - Preliminary Blood No Growth after 24 hours Diabetes panel 09/09/19 Range/Units 06:16 Sodium 138 (137-145) mmol/L Potassium 4.3 (3.5-5.1) mmol/L Chloride 103 (98-107) mmol/L Carbon Dioxide 28 (22-30) mmol/L BUN 13 (9-20) mg/dL Creatinine 0.50 L (0.66-1.25) mg/dL Glucose 90 (74-99) mg/dL Calcium 8.4 (8.4-10.2) mg/dL Calcium panel 09/09/19 Range/Units 06:16 Calcium 8.4 (8.4-10.2) mg/dL Pituitary panel 09/09/19 Range/Units 06:16 Sodium 138 (137-145) mmol/L Potassium 4.3 (3.5-5.1) mmol/L Chloride 103 (98-107) mmol/L Carbon Dioxide 28 (22-30) mmol/L BUN 13 (9-20) mg/dL Creatinine 0.50 L (0.66-1.25) mg/dL Glucose 90 (74-99) mg/dL Calcium 8.4 (8.4-10.2) mg/dL Adrenal panel 09/09/19 Range/Units 06:16 Sodium 138 (137-145) mmol/L Potassium 4.3 (3.5-5.1) mmol/L Chloride 103 (98-107) mmol/L Carbon Dioxide 28 (22-30) mmol/L BUN 13 (9-20) mg/dL Creatinine 0.50 L (0.66-1.25) mg/dL Glucose 90 (74-99) mg/dL Calcium 8.4 (8.4-10.2) mg/dL Assessment and Plan Assessment: 1. A dental abscess of tooth #29 and possibly 31. 2. Pancytopenia with very low platelet count. 3. intractable fevers Plan: Schedule for OR Local and Sedation. plan to pull the infected teeth after/ during infusion of Platelets. limit procedure time. watch for post op bleding on ericka and retransfer platelets if needed. cordinted plan with hematology. Time with Patient: Greater than 30
[2019-09-09 11:59] LABS: Glucose,Whole Blood 97 mg/dL (75-99)
--- NOTE | 2019-09-09 12:28 | P.PN ---
Subjective Progress Note Date: 09/09/19 Principal diagnosis: neutropenic fever, pancytopenia secondary to acute erythroid leukemia and treatment for the same In follow-up today patient had fever overnight 101.4F. Has soreness to his right jaw, he denies mucosal irritation, sore throat, nausea, vomiting, difficulty in breathing, cough, abdominal pain or cramping, acute changes in bowel or bladder habits, bleeding, swelling. He has tolerating fair amounts of oral intake. Energy levels are fair to poor, SOB with exertion. Objective - Vital Signs Vital signs: Vital Signs Temp 99 F 09/09/19 07:25 Pulse 100 09/09/19 07:25 Resp 16 09/09/19 07:25 BP 119/74 09/09/19 07:25 Pulse Ox 100 09/09/19 07:25 Intake & Output 09/08/19 09/09/19 09/09/19 18:59 06:59 18:59 Intake Total 670 812 10 Output Total 375 Balance 670 437 10 Weight 80 kg Intake: IV 40 10 Invasive Line 5 20 10 Invasive Line 6 20 Oral 360 462 Blood Product 310 310 Platelet Irr Pheresis 310 Acda1 Unit [id number] Rc Irr As1 Unit 0 310 [id number] Output: Urine 375 Other: Voiding Method Urinal - Constitutional General appearance: Present: average body habitus, cooperative, no acute distress - EENT Eyes: Present: anicteric sclerae, EOMI, poor dentition ENT: Present: hearing grossly normal, normal oropharynx - Respiratory Respiratory: bilateral: CTA - Cardiovascular Rhythm: regular Heart sounds: normal: S1, S2 Abnormal Heart Sounds: Absent: systolic murmur, diastolic murmur, rub, S3 Gallop, S4 Gallop, click, other - Peripheral edema leg Peripheral Edema: bilateral: None - Gastrointestinal General gastrointestinal: Present: normal bowel sounds, soft. Absent: absent bowel sounds, decreased bowel sounds, distended, hepatomegaly, hyperactive bowel sounds, organomegaly, rigid, scaphoid, splenomegaly, tenderness, umbilical hernia, ventral hernia - Integumentary Integumentary: Present: pale - Neurologic Neurologic: Present: CNII-XII intact - Musculoskeletal Musculoskeletal: Present: generalized weakness, strength equal bilaterally - Psychiatric Psychiatric: Present: A&O x's 3, appropriate affect, intact judgment & insight - Labs CBC & Chem 7: 09/09/19 06:16 09/09/19 06:16 Labs: Abnormal Lab Results - Last 24 Hours (Table) 09/06/19 09/08/19 09/08/19 Range/Units 07:51 06:18 06:18 WBC (3.8-10.6) k/uL RBC (4.30-5.90) m/uL Hgb (13.0-17.5) gm/dL Hct (39.0-53.0) % Plt Count (150-450) k/uL Creatinine (0.66-1.25) mg/dL POC Glucose (mg/dL) (75-99) mg/dL C-Reactive Protein 205.5 H (<10.0) mg/L Procalcitonin 0.38 H (0.02-0.09) ng/mL Crossmatch See Detail 09/08/19 09/08/19 09/09/19 Range/Units 16:41 19:58 06:16 WBC 0.1 L* (3.8-10.6) k/uL RBC 2.34 L (4.30-5.90) m/uL Hgb 6.9 L* (13.0-17.5) gm/dL Hct 19.5 L* (39.0-53.0) % Plt Count 12 L* D (150-450) k/uL Creatinine (0.66-1.25) mg/dL POC Glucose (mg/dL) 118 H 197 H (75-99) mg/dL C-Reactive Protein (<10.0) mg/L Procalcitonin (0.02-0.09) ng/mL Crossmatch 09/09/19 Range/Units 06:16 WBC (3.8-10.6) k/uL RBC (4.30-5.90) m/uL Hgb (13.0-17.5) gm/dL Hct (39.0-53.0) % Plt Count (150-450) k/uL Creatinine 0.50 L (0.66-1.25) mg/dL POC Glucose (mg/dL) (75-99) mg/dL C-Reactive Protein (<10.0) mg/L Procalcitonin (0.02-0.09) ng/mL Crossmatch Microbiology - Last 24 Hours (Table) 09/07/19 23:03 Blood Culture - Preliminary Blood No Growth after 24 hours Assessment and Plan (1) Pancytopenia due to antineoplastic chemotherapy Narrative/Plan: Conservative transfusions with irradiated blood products. Transfuse to keep hemoglobin 7 or higher. Transfusion today, hemoglobin 6.9. Transfuse to keep platelets 10,000 or higher [place] [address] today White blood cell count is 0.1. Patient is not a confirmed remission, no G-CSF at this time. Current Visit: Yes Status: Acute Priority: High Code(s): D61.810 - ANTINEOPLASTIC CHEMOTHERAPY INDUCED PANCYTOPENIA; T45.1X5A - ADVERSE EFFECT OF ANTINEOPLASTIC AND IMMUNOSUP DRUGS, INIT SNOMED Code(s): 471146132740410 (2) Febrile neutropenia Narrative/Plan: Pancultures negative, PICC line culture negative. Empiric antibiotics cont. ID adjusted therapy. No GCSF, pt not confirmed remission Fever again last night Current Visit: Yes Status: Acute Priority: High Code(s): D70.9 - NEUTROPENIA, UNSPECIFIED; R50.81 - FEVER PRESENTING WITH CONDITIONS CLASSIFIED ELSEWHERE SNOMED Code(s): 625006579 (3) Acute erythroid leukemia Narrative/Plan: Patient is currently being treated with salvage HiDAC regimen. Unfortunately, previous treatments did not provide an adequate enough marrow response for him t o proceed with bone marrow transplant. He is status post the first cycle of this regimen, completed 2 weeks ago. Bone marrow biopsy to evaluate for response to treatment occurs is sched for 09/16. Pt is aware of his condition, prognosis and possible outcomes, plan for bone marrow. Current Visit: Yes Status: Chronic Priority: High Code(s): C94.00 - ACUTE ERYTHROID LEUKEMIA, NOT HAVING ACHIEVED REMISSION SNOMED Code(s): 88730574 (4) Abscessed tooth Narrative/Plan: Fever pattern has yet to deon despite abx and negative cultures so, concerning that the teeth are the source. Dr. Rojas discussed the case with Dr. Delgadillo. Plan is for extraction tomorrow morning, platelet infusion at time of procedure. Blood bank is been contacted. Nursing has been informed of the plans. Current Visit: Yes Status: Acute Priority: High Code(s): K04.7 - PERIAPICAL ABSCESS WITHOUT SINUS SNOMED Code(s): 229491872 Plan: Doctor attests: I performed a history and physical examination of this patient, developed impression and plan of care, discussed with dictator. I agree with dictators note, documented as a scribe.
[2019-09-09] MEDS: VORICONAZOLE 200 MG TAB PO SCH (13:50)
[2019-09-09 16:23] LABS: Glucose,Whole Blood 118 mg/dL (75-99)
--- NOTE | 2019-09-09 16:42 | P.PN ---
Subjective Progress Note Date: 09/09/19 Fransisco Burnham is a 48-year-old male well-known to my practice who presented to [facility] emergency room with a chief complaint of fever. On presentation temperature was 104.4 heart rate was 119, patient has known history of leukemia he just recently received a course of chemotherapy and was discharged home less than 1 week ago, his white blood count on presentation was 0 he was admitted to oncology floor and was started on IV antibiotics, consultation for oncology and infectious disease were initiated. On 09/03/2019 patient was seen and examined on the medical floor he is alert and oriented 3 in no apparent distress, there is no fever or chills no headache or dizziness no chest pain no shortness of breath no cough no nausea or vomiting no abdominal pain no diarrhea and no urinary symptoms. Patient remains on IV antibiotic, he remains neutropenic at this time. On 09/04/2019 Patient was seen and examined on the medical floor he is alert and oriented 3 in no distress there is no fever or chills no headache or dizziness no chest pain no shortness of breath no cough no nausea or vomiting no abdominal pain no diarrhea no burning was urination no frequency or urgency and no hematuria white blood count remained 0.1 On 09/05/2019 patient was seen and examined on the medical floor he is alert and oriented 3 in no distress he is complaining of right lower tooth pain with evidence of abscess otherwise he denies any complaints there is no fever or chills no headache or dizziness no chest pain no shortness of breath no cough no nausea or vomiting no abdominal pain no diarrhea and no urinary symptoms. On 09/06/2019 patient was seen and examined on the medical floor he is alert and oriented 3 in no apparent distress he is complaining of right lower tooth pain otherwise he denies any complaints there is no fever or chills no headache or dizziness no chest pain no shortness of breath no cough no nausea or vomiting no abdominal pain no diarrhea no blood in the stools no burning was urination no frequency or urgency and no hematuria patient remains neutropenic with a white blood count of 0.1 On 09/07/2019 patient was seen and examined on the medical floor he is tooth pain has been improving, he is alert and oriented 3 and otherwise he denies any complaints there is no fever or chills no headache or dizziness no chest pain no shortness of breath no cough no nausea or vomiting no abdominal pain no diarrhea no blood in the stools no burning with urination no frequency or urgency and no hematuria. Yesterday I had a prolonged discussion with Dr. Delgadillo over the phone, he does not feel that any surgical intervention is advised that this time as the risk is higher than benefit especially in view of the Covid 19 epidemic he feels that patient may be better served being treated with IV antibiotics and have his platelet count improve, and then have a procedure as outpatient if necessary. On 09/08/2019 patient was seen and examined on the medical floor he is alert and oriented 3 in no apparent distress, he is still having episodes of fever white blood count is still significantly low at 0.2 he is still complaining of some tooth pain otherwise he denies any complaints there is no fever or chills no headache or dizziness no chest pain no shortness of breath no cough no nausea or vomiting no abdominal pain no diarrhea no burning was urination no frequency or urgency no hematuria and no blood in the stools On 09/09/2019 patient was seen and examined on the medical floor he is alert and oriented 3 in no apparent distress, he is still having fever of 101.4 his white blood count is 0.1 he is still complaining of tooth pain otherwise he denies any complaints there is no cough no vomiting or diarrhea no urinary symptoms Objective - Vital Signs Vital signs: Vital Signs Temp 102.1 F H 09/09/19 14:36 Pulse 109 H 09/09/19 14:36 Resp 15 09/09/19 14:36 BP 120/67 09/09/19 14:36 Pulse Ox 98 09/09/19 14:36 Intake & Output 09/08/19 09/09/19 09/09/19 18:59 06:59 18:59 Intake Total 670 812 500 Output Total 375 Balance 670 437 500 Weight 80 kg Intake: IV 40 20 Invasive Line 5 20 20 Invasive Line 6 20 Oral 360 462 480 Blood Product 310 310 Platelet Irr Pheresis 310 Acda1 Unit [id number] Rc Irr As1 Unit 0 310 [id number] Output: Urine 375 Other: Voiding Method Urinal # Voids 3 - Exam In general patient is alert and oriented 3 in no apparent distress HEENT head normocephalic and atraumatic Neck is supple no JVD no goiter no lymphadenopathy Chest exam reveals a few scattered crackles no wheezing Cardiac exam reveals regular heart sounds no gallops no murmurs Abdomen is soft nontender no organomegaly with normal bowel sounds Extremity exam reveals no edema no cyanosis or clubbing Neurological examination reveals no gross focal neurological deficit - Labs CBC & Chem 7: 09/09/19 06:16 09/09/19 06:16 Labs: Abnormal Lab Results - Last 24 Hours (Table) 09/06/19 09/08/19 09/08/19 Range/Units 07:51 06:18 06:18 WBC (3.8-10.6) k/uL RBC (4.30-5.90) m/uL Hgb (13.0-17.5) gm/dL Hct (39.0-53.0) % Plt Count (150-450) k/uL Creatinine (0.66-1.25) mg/dL POC Glucose (mg/dL) (75-99) mg/dL C-Reactive Protein 205.5 H (<10.0) mg/L Procalcitonin 0.38 H (0.02-0.09) ng/mL Crossmatch See Detail 09/08/19 09/08/19 09/09/19 Range/Units 16:41 19:58 06:16 WBC 0.1 L* (3.8-10.6) k/uL RBC 2.34 L (4.30-5.90) m/uL Hgb 6.9 L* (13.0-17.5) gm/dL Hct 19.5 L* (39.0-53.0) % Plt Count 12 L* D (150-450) k/uL Creatinine (0.66-1.25) mg/dL POC Glucose (mg/dL) 118 H 197 H (75-99) mg/dL C-Reactive Protein (<10.0) mg/L Procalcitonin (0.02-0.09) ng/mL Crossmatch 09/09/19 Range/Units 06:16 WBC (3.8-10.6) k/uL RBC (4.30-5.90) m/uL Hgb (13.0-17.5) gm/dL Hct (39.0-53.0) % Plt Count (150-450) k/uL Creatinine 0.50 L (0.66-1.25) mg/dL POC Glucose (mg/dL) (75-99) mg/dL C-Reactive Protein (<10.0) mg/L Procalcitonin (0.02-0.09) ng/mL Crossmatch Microbiology - Last 24 Hours (Table) 09/07/19 23:03 Blood Culture - Preliminary Blood No Growth after 24 hours Assessment and Plan Plan: #1 febrile illness with neutropenia, source of infection is not entirely clear at this time influenza A and B were negative urine analysis without any evidence of urinary tract infection, blood culture is pending. Awaiting possible intervention by oral surgery #2 acute erythroid leukemia, patient received chemotherapy at [facility] and was discharged home less than 1 week ago #3 anemia hemoglobin on presentation 4.8 RBC transfusion ordered by oncology #4 thrombocytopenia platelet count is down to 3 no evidence of bleeding at this time #5 lactic acidosis, on presentation lactic acid level was 2.7 down to 1.3, continue IV hydration and IV antibiotics. #6 underlying history of diabetes mellitus maintained on metformin continue #7 underlying history of hypertension maintained on metoprolol continue #8 underlying history of depression maintained on Effexor continue. #9 tooth abscess consultation for oral surgery was initiated continue with current antibiotics, we are hoping for intervention by oral surgery during this admission, patient will need platelet transfusion prior to procedure At this time home medication reviewed and reordered Continue with IV antibiotics and IV hydration RBC transfusion was ordered by hematology Consultation for hematology oncology and infectious disease are initiated Will follow closely
[2019-09-09] MEDS: metFORMIN 500 MG TAB PO SCH (18:23)
[2019-09-09] MEDS: METOPROLOL TARTRATE 25 MG TAB PO SCH (20:52)
[2019-09-09] MEDS: MONTELUKAST 10 MG TAB PO SCH (20:52)
[2019-09-09] MEDS: ZOLPIDEM 5 MG TAB PO PRN (21:14)
[2019-09-09] MEDS: VENLAFAXINE HCL ER 150 MG CAP PO SCH (21:15)
--- NOTE | 2019-09-09 21:38 | PN ---
PROGRESS NOTE DATE OF SERVICE: 09/09/2019 REASON FOR FOLLOWUP: Febrile neutropenia, right lower jaw infected tooth and possible abscess. INTERVAL HISTORY: The patient has been running a low-grade fever. Overall fever pattern has improved. The patient denies having any rigors or chills. No chest pain, shortness of breath or cough. No abdominal pain or diarrhea. PHYSICAL EXAMINATION: Blood pressure 115/69 with a pulse of 97, temperature 100.4. General description is a middle-aged male lying in bed in no distress. RESPIRATORY SYSTEM: Unlabored breathing. Clear to auscultation anteriorly. HEART: S1, S2. Regular rate and rhythm. ABDOMEN: Soft. No tenderness. LABS: Hemoglobin 6.9, white count 0.1. BUN of 13, creatinine 0.50. DIAGNOSTIC IMPRESSION AND PLAN: Patient with febrile neutropenia in this patient with a possible component of infected right lower jaw/tooth with possible abscess, for extraction tomorrow. Deep culture has been requested as per discussion with the oral surgeon. Currently on Unasyn; to continue, adjusting antibiotic further on the basis of the culture report and clinical response. Continue with supportive care. MMODL / IJN: [id number] /
[2019-09-09 21:41] LABS: Glucose,Whole Blood 183 mg/dL (75-99)
[2019-09-10] MEDS: AMPICILLIN-SULBACTAM 3 GM in SODIUM CHLORIDE 0.9% 100 ML IVPB SCH ×5 (01:02→23:19)
[2019-09-10] MEDS: SODIUM CHLORIDE 0.9% 1,000 ML IV SCH ×2 (01:03→20:45)
[2019-09-10 06:38] LABS: Glucose,Whole Blood 107 mg/dL (75-99)
[2019-09-10] MEDS: FLUTICASONE 110 MCG INHALER INHALATION SCH ×2 (07:16→19:22)
[2019-09-10] MEDS: PANTOPRAZOLE 40 MG TABLET PO SCH (07:58)
[2019-09-10] MEDS: DIVALPROEX 500 MG TABLET.DR PO SCH ×2 (08:04→20:44)
[2019-09-10] MEDS: prednisoLONE ACETATE 1% OPHTH DROPS 5 ML BTL BOTH EYES SCH ×4 (08:08→20:45)
[2019-09-10 09:41] LABS: HCT 21.8 % (39.0-53.0); HGB 7.7 gm/dL (13.0-17.5); MCH 29.3 pg (25.0-35.0); MCV 83.6 fL (80.0-100.0); Mean Platelet Volume 7.8; RBC 2.61 m/uL (4.30-5.90); RDW 12.4 % (11.5-15.5)
[2019-09-10 09:45] LABS: WBC 0.1 k/uL (3.8-10.6)
[2019-09-10 09:46] LABS: Platelet Count 8 k/uL (150-450)
[2019-09-10] MEDS: ACYCLOVIR 200 MG CAP PO SCH ×2 (10:02→20:44)
[2019-09-10 11:14] LABS: Glucose,Whole Blood 96 mg/dL (75-99)
[2019-09-10] MEDS ORDERED: MIDAZOLAM 2 MG/2 ML VIAL ONE (13:48)
[2019-09-10] MEDS ORDERED: fentaNYL (PF) 50 MCG/ML 2 ML AMP ONE (13:48)
[2019-09-10] MEDS ORDERED: PROPOFOL 10 MG/ML 20 ML VIAL IV ONE (13:48)
[2019-09-10] MEDS ORDERED: LIDOCAINE 2%-EPI 1:100,000 20 ML VIAL SQ ONE (13:48)
[2019-09-10] MEDS ORDERED: SODIUM CHLORIDE 0.9% 1,000 ML IV ONE (13:48)
[2019-09-10] MEDS: VORICONAZOLE 200 MG TAB PO SCH (14:57)
--- NOTE | 2019-09-10 15:17 | P.OP ---
Date of Procedure: 09/10/19 Preoperative Diagnosis: Dental Abscess lower left Toro cytopenia with intractable fever Postoperative Diagnosis: Same Procedure(s) Performed: Surgical Extraction of teeth 29+31 Implants: none Anesthesia: local Surgeon: Sami Delgadillo Estimated Blood Loss (ml): 4 IV fluids (ml): 200 Urine output (ml): 0 Pathology: other (A A culture and senstivity source right jaw) Condition: stable Disposition: no change Indications for Procedure: Patient has been having intractable fevers since admision most likely due to oral abscess the pain and swelling of lower right makes this most likely source. we tried to delay treatment with IV antibiotics and he has failed therepy. consent DW patient NLT COVID 19 risks. we will need to extract all remaing teeth prior to Bone marrow transplant but these two teeth should help with the current problem. Operative Findings: none Description of Procedure: Pt brought from floor to [facility] due to negative pressure room. staff wearing positive pressure mask and N95. consent reviewed and pat agreed to proceed. waited for Veril's sign and placed bite block and 8cc 2% lido and throat shield. full thickness flap buccal with bone removed with osteotome to avoid aresole. 31 had two roots on mesial root the lingual root still had 1mm at apex but stable and left in place. 29 luxated without complication and slight pus from socket. cultured 29 root socket. rinsed all sockets and gelfome. placed 5 x 4- 0 plain guts. observed hemostasis, removed throat shiled and bite block and packed with large gauze. transfered to [facility], soft diet for 5 days to avoid future bleeding.
--- NOTE | 2019-09-10 16:04 | P.PN ---
Subjective Progress Note Date: 09/10/19 Fransisco Burnham is a 48-year-old male well-known to my practice who presented to [facility] emergency room with a chief complaint of fever. On presentation temperature was 104.4 heart rate was 119, patient has known history of leukemia he just recently received a course of chemotherapy and was discharged home less than 1 week ago, his white blood count on presentation was 0 he was admitted to oncology floor and was started on IV antibiotics, consultation for oncology and infectious disease were initiated. On 09/03/2019 patient was seen and examined on the medical floor he is alert and oriented 3 in no apparent distress, there is no fever or chills no headache or dizziness no chest pain no shortness of breath no cough no nausea or vomiting no abdominal pain no diarrhea and no urinary symptoms. Patient remains on IV antibiotic, he remains neutropenic at this time. On 09/04/2019 Patient was seen and examined on the medical floor he is alert and oriented 3 in no distress there is no fever or chills no headache or dizziness no chest pain no shortness of breath no cough no nausea or vomiting no abdominal pain no diarrhea no burning was urination no frequency or urgency and no hematuria white blood count remained 0.1 On 09/05/2019 patient was seen and examined on the medical floor he is alert and oriented 3 in no distress he is complaining of right lower tooth pain with evidence of abscess otherwise he denies any complaints there is no fever or chills no headache or dizziness no chest pain no shortness of breath no cough no nausea or vomiting no abdominal pain no diarrhea and no urinary symptoms. On 09/06/2019 patient was seen and examined on the medical floor he is alert and oriented 3 in no apparent distress he is complaining of right lower tooth pain otherwise he denies any complaints there is no fever or chills no headache or dizziness no chest pain no shortness of breath no cough no nausea or vomiting no abdominal pain no diarrhea no blood in the stools no burning was urination no frequency or urgency and no hematuria patient remains neutropenic with a white blood count of 0.1 On 09/07/2019 patient was seen and examined on the medical floor he is tooth pain has been improving, he is alert and oriented 3 and otherwise he denies any complaints there is no fever or chills no headache or dizziness no chest pain no shortness of breath no cough no nausea or vomiting no abdominal pain no diarrhea no blood in the stools no burning with urination no frequency or urgency and no hematuria. Yesterday I had a prolonged discussion with Dr. Delgadillo over the phone, he does not feel that any surgical intervention is advised that this time as the risk is higher than benefit especially in view of the Covid 19 epidemic he feels that patient may be better served being treated with IV antibiotics and have his platelet count improve, and then have a procedure as outpatient if necessary. On 09/08/2019 patient was seen and examined on the medical floor he is alert and oriented 3 in no apparent distress, he is still having episodes of fever white blood count is still significantly low at 0.2 he is still complaining of some tooth pain otherwise he denies any complaints there is no fever or chills no headache or dizziness no chest pain no shortness of breath no cough no nausea or vomiting no abdominal pain no diarrhea no burning was urination no frequency or urgency no hematuria and no blood in the stools On 09/09/2019 patient was seen and examined on the medical floor he is alert and oriented 3 in no apparent distress, he is still having fever of 101.4 his white blood count is 0.1 he is still complaining of tooth pain otherwise he denies any complaints there is no cough no vomiting or diarrhea no urinary symptoms On 09/10/2019 patient was seen and examined on the medical floor he is alert and oriented 3 in no apparent distress, he still has low-grade fever of 99.3 there is no chills no headache or dizziness no chest pain no shortness of breath no cough no nausea or vomiting no abdominal pain no diarrhea and no urinary symptoms. Patient underwent Surgical Extraction of teeth 29+31 today under local anesthesia there was minimal blood loss. White blood count is still low at 0.1 hemoglobin 7.7 and platelet count of 8 Objective - Vital Signs Vital signs: Vital Signs Temp 98.5 F 09/10/19 15:44 Pulse 82 09/10/19 15:00 Resp 16 09/10/19 15:00 BP 115/67 09/10/19 15:00 Pulse Ox 100 09/10/19 15:00 Intake & Output 09/09/19 09/10/19 09/10/19 18:59 06:59 18:59 Intake Total 510 960 387 Output Total 650 1200 404 Balance -140 -240 -17 Weight 80 kg Intake: IV 30 60 90 Invasive Line 5 30 30 20 Invasive Line 6 30 20 Oral 480 900 Blood Product 0 297 Platelet Irr Pheresis 297 Acda1 Unit [id number] Rc Irr As1 Unit 0 [id number] Output: Urine 650 1200 400 Estimated Blood Loss 4 Other: Voiding Method Urinal Urinal # Voids 3 - Exam In general patient is alert and oriented 3 in no apparent distress HEENT head normocephalic and atraumatic Neck is supple no JVD no goiter no lymphadenopathy Chest exam reveals a few scattered crackles no wheezing Cardiac exam reveals regular heart sounds no gallops no murmurs Abdomen is soft nontender no organomegaly with normal bowel sounds Extremity exam reveals no edema no cyanosis or clubbing Neurological examination reveals no gross focal neurological deficit - Labs CBC & Chem 7: 09/10/19 09:27 09/09/19 06:16 Labs: Abnormal Lab Results - Last 24 Hours (Table) 09/06/19 09/09/19 09/09/19 Range/Units 07:51 09:57 16:22 WBC (3.8-10.6) k/uL RBC (4.30-5.90) m/uL Hgb (13.0-17.5) gm/dL Hct (39.0-53.0) % Plt Count (150-450) k/uL POC Glucose (mg/dL) 118 H (75-99) mg/dL Crossmatch See Detail See Detail 09/09/19 09/10/19 09/10/19 Range/Units 21:40 06:36 09:27 WBC 0.1 L* (3.8-10.6) k/uL RBC 2.61 L (4.30-5.90) m/uL Hgb 7.7 L (13.0-17.5) gm/dL Hct 21.8 L (39.0-53.0) % Plt Count 8 L* (150-450) k/uL POC Glucose (mg/dL) 183 H 107 H (75-99) mg/dL Crossmatch Microbiology - Last 24 Hours (Table) 09/07/19 23:03 Blood Culture - Preliminary Blood No Growth after 48 hours Assessment and Plan Plan: #1 febrile illness with neutropenia, source of infection is not entirely clear at this time influenza A and B were negative urine analysis without any evidence of urinary tract infection, blood culture is pending. Awaiting possible intervention by oral surgery #2 acute erythroid leukemia, patient received chemotherapy at [facility] and was discharged home less than 1 week ago #3 anemia hemoglobin on presentation 4.8 RBC transfusion ordered by oncology #4 thrombocytopenia platelet count is down to 3 no evidence of bleeding at this time #5 lactic acidosis, on presentation lactic acid level was 2.7 down to 1.3, continue IV hydration and IV antibiotics. #6 underlying history of diabetes mellitus maintained on metformin continue #7 underlying history of hypertension maintained on metoprolol continue #8 underlying history of depression maintained on Effexor continue. #9 tooth abscess consultation for oral surgery was initiated continue with current antibiotics, we are hoping for intervention by oral surgery during this admission, patient will need platelet transfusion prior to procedure At this time home medication reviewed and reordered Continue with IV antibiotics and IV hydration Platelet transfusion was ordered by hematology Consultation for hematology oncology and infectious disease are following Patient underwent Surgical Extraction of teeth 29+31 today Continue IV antibiotics Will follow closely
[2019-09-10 16:11] LABS: Glucose,Whole Blood 95 mg/dL (75-99)
[2019-09-10] MEDS: metFORMIN 500 MG TAB PO SCH (17:11)
[2019-09-10] MEDS: oxyCODONE-APAP 5-325MG 1 EACH TAB PO PRN ×2 (17:15→23:18)
--- NOTE | 2019-09-10 17:38 | PN ---
PROGRESS NOTE DATE OF SERVICE: 09/10/2019 REASON FOR FOLLOWUP: Febrile neutropenia and infected teeth in lower jaw. INTERVAL HISTORY: The patient's overall fever pattern has improved. T-max of 100.7. The patient denies having any chest pain. Pain to the right lower jaw has improved. Denies any shortness of breath or cough. No abdominal pain or diarrhea. PHYSICAL EXAMINATION: Blood pressure 115/67, pulse of 82, temperature 99.7. 97% on room air. General description is a middle-aged male lying in bed in no distress. RESPIRATORY SYSTEM: Unlabored breathing. Clear to auscultation anteriorly. HEART: S1, S2. Regular rate and rhythm. ABDOMEN: Soft. No tenderness. LABS: Hemoglobin 7.7, white count 0.1. DIAGNOSTIC IMPRESSION AND PLAN: Patient with acute fever/febrile neutropenia with infected lower jaw teeth, status post extraction. Abscess culture has been requested. Currently on Unasyn; will continue and adjust antibiotic further based on the culture report. Continue with supportive care. MMODL / IJN: [id number] /
[2019-09-10 20:38] LABS: Glucose,Whole Blood 134 mg/dL (75-99)
[2019-09-10] MEDS: MONTELUKAST 10 MG TAB PO SCH (20:44)
[2019-09-10] MEDS: VENLAFAXINE HCL ER 150 MG CAP PO SCH (20:44)
[2019-09-10] MEDS: METOPROLOL TARTRATE 25 MG TAB PO SCH (20:44)
--- NOTE | 2019-09-10 21:10 | P.PN ---
Subjective Progress Note Date: 09/10/19 The patient continues to spike temperatures, with maximum 10 2 in the afternoon on 09/08. He has had other temperatures of 100.7 since. He continues to have some swelling and pain in the right lower jaw area. No other localizing signs no obvious bleeding. Objective - Vital Signs Vital signs: Vital Signs Temp 101.4 F H 09/10/19 19:06 Pulse 100 09/10/19 19:06 Resp 18 09/10/19 19:06 BP 119/68 09/10/19 19:06 Pulse Ox 97 09/10/19 19:06 Intake & Output 09/10/19 09/10/19 09/11/19 06:59 18:59 06:59 Intake Total 960 1227 Output Total 1200 404 200 Balance -240 823 -200 Intake: IV 60 110 Invasive Line 5 30 30 Invasive Line 6 30 30 Oral 900 820 Blood Product 0 297 Platelet Irr Pheresis 297 Acda1 Unit [id number] Rc Irr As1 Unit 0 [id number] Output: Urine 1200 400 200 Estimated Blood Loss 4 Other: Voiding Method Urinal Urinal - Constitutional General appearance: Present: no acute distress - EENT Eyes: Present: EOMI ENT: Present: hearing grossly normal - Respiratory Respiratory: bilateral: CTA - Cardiovascular Rhythm: regular Heart sounds: normal: S1, S2 - Gastrointestinal General gastrointestinal: Present: normal bowel sounds, soft - Integumentary Integumentary: Present: normal - Neurologic Neurologic: Present: CNII-XII intact - Musculoskeletal Musculoskeletal: Present: generalized weakness, strength equal bilaterally - Psychiatric Psychiatric: Present: A&O x's 3, appropriate affect - Labs CBC & Chem 7: 09/10/19 09:27 09/09/19 06:16 Labs: Abnormal Lab Results - Last 24 Hours (Table) 09/09/19 09/09/19 09/10/19 Range/Units 09:57 21:40 06:36 WBC (3.8-10.6) k/uL RBC (4.30-5.90) m/uL Hgb (13.0-17.5) gm/dL Hct (39.0-53.0) % Plt Count (150-450) k/uL POC Glucose (mg/dL) 183 H 107 H (75-99) mg/dL Crossmatch See Detail 09/10/19 09/10/19 Range/Units 09:27 20:37 WBC 0.1 L* (3.8-10.6) k/uL RBC 2.61 L (4.30-5.90) m/uL Hgb 7.7 L (13.0-17.5) gm/dL Hct 21.8 L (39.0-53.0) % Plt Count 8 L* (150-450) k/uL POC Glucose (mg/dL) 134 H (75-99) mg/dL Crossmatch Microbiology - Last 24 Hours (Table) 09/07/19 23:03 Blood Culture - Preliminary Blood No Growth after 48 hours Assessment and Plan (1) Abscessed tooth Narrative/Plan: The patient actually has multiple carious teeth with extensive decay. In fact, he was supposed to have extensive extractions done in preparation for his bone marrow transplant. The procedure had to be put on hold due to the coronavirus epidemic, as well as his refractory leukemia requiring re-initiation of chemotherapy for salvage. He has been discussed with oral surgery. The patient is not a candidate for extensive extractions at this time due to cytopenias as well as risk of aerosolization. However he does have 2 teeth of particular concern, specifically regarding abscess formation and possible source of his fever, which will be extracted later today. Patient will receive platelets at the time of surgery. Current Visit: Yes Status: Acute Priority: High Code(s): K04.7 - PERIAPICAL ABSCESS WITHOUT SINUS SNOMED Code(s): 242544953 (2) Febrile neutropenia Narrative/Plan: Patient has persistent fever, despite broad-spectrum antibiotics. At this time there is concern for the abscessed tooth as a possible source. He is being followed by ID and is scheduled for extraction of the 2 teeth of particular concern for abscess. Continue antibiotics post procedure with monitoring. Defer to ID for antibiotic management Current Visit: Yes Status: Acute Priority: High Code(s): D70.9 - NEUTROPENIA, UNSPECIFIED; R50.81 - FEVER PRESENTING WITH CONDITIONS CLASSIFIED ELSEWHERE SNOMED Code(s): 454704700 (3) Acute erythroid leukemia Narrative/Plan: Patient has refractory disease, and has failed induction 2. He is on third line treatment for salvage induction. Continue supportive treatments. Repeat bone marrow between D 21- 28. Current Visit: Yes Status: Chronic Priority: High Code(s): C94.00 - ACUTE ERYTHROID LEUKEMIA, NOT HAVING ACHIEVED REMISSION SNOMED Code(s): 07479638 (4) Pancytopenia due to antineoplastic chemotherapy Narrative/Plan: Very significant, but expected given his underlying disease and therapeutic circumstances. Continue to monitor with supportive transfusions to keep hemoglobin greater than 7 and platelets greater than 10 Current Visit: Yes Status: Acute Priority: High Code(s): D61.810 - ANTINEOPLASTIC CHEMOTHERAPY INDUCED PANCYTOPENIA; T45.1X5A - ADVERSE EFFECT OF ANTINEOPLASTIC AND IMMUNOSUP DRUGS, INIT SNOMED Code(s): 827961757352863
[2019-09-10] MEDS: ZOLPIDEM 5 MG TAB PO PRN (23:19)
[2019-09-11] MEDS: oxyCODONE-APAP 5-325MG 1 EACH TAB PO PRN ×3 (06:05→20:30)
[2019-09-11] MEDS: AMPICILLIN-SULBACTAM 3 GM in SODIUM CHLORIDE 0.9% 100 ML IVPB SCH ×4 (06:06→23:00)
[2019-09-11 06:44] LABS: Glucose,Whole Blood 105 mg/dL (75-99)
[2019-09-11] MEDS: FLUTICASONE 110 MCG INHALER INHALATION SCH ×2 (08:16→19:25)
[2019-09-11] MEDS: prednisoLONE ACETATE 1% OPHTH DROPS 5 ML BTL BOTH EYES SCH ×4 (09:10→20:29)
[2019-09-11] MEDS: PANTOPRAZOLE 40 MG TABLET PO SCH (09:11)
[2019-09-11] MEDS: DIVALPROEX 500 MG TABLET.DR PO SCH ×2 (09:11→20:30)
[2019-09-11] MEDS: ACYCLOVIR 200 MG CAP PO SCH ×2 (09:11→20:30)
[2019-09-11 10:10] LABS: HCT 21.3 % (39.0-53.0); HGB 7.3 gm/dL (13.0-17.5); MCH 29.2 pg (25.0-35.0); MCHC 34.2 g/dL (31.0-37.0); MCV 85.4 fL (80.0-100.0); Mean Platelet Volume 8.8; RBC 2.49 m/uL (4.30-5.90); RDW 12.4 % (11.5-15.5)
[2019-09-11 10:11] LABS: WBC 0.1 k/uL (3.8-10.6)
[2019-09-11 10:12] LABS: Platelet Count 8 k/uL (150-450)
[2019-09-11 10:30] LABS: AST 17 U/L (17-59); African American GFR (CKD) >90 (>60 ml/min/1.73 sqM); Albumin 3.3 g/dL (3.5-5.0); Alkaline Phosphatase 94 U/L (38-126); Anion Gap 6 mmol/L; Blood Urea Nitrogen 11 mg/dL (9-20); Calcium 8.7 mg/dL (8.4-10.2); Carbon Dioxide 31 mmol/L (22-30); Chloride 98 mmol/L (98-107); Glucose 143 mg/dL (74-99); Non-African American GFR(CKD) >90 (>60 ml/min/1.73 sqM); Potassium 4.4 mmol/L (3.5-5.1); Sodium 135 mmol/L (137-145); Total Bilirubin 0.9 mg/dL (0.2-1.3); Total Protein 6.1 g/dL (6.3-8.2)
[2019-09-11 10:31] LABS: ALT 44 U/L (4-49)
[2019-09-11 11:43] LABS: Glucose,Whole Blood 91 mg/dL (75-99)
--- NOTE | 2019-09-11 13:11 | P.PN ---
Subjective Progress Note Date: 09/11/19 Principal diagnosis: neutropenic fever, pancytopenia secondary to acute erythroid leukemia and treatment for the same In follow-up today patient had fever yesterday afternoon of 101.4F, none since. Right jaw soreness is there but pt is differentiating it from the pain before pr ocedure, he denies mucosal irritation, sore throat, nausea, vomiting, difficulty in breathing, cough, abdominal pain or cramping, acute changes in bowel or bladder habits, bleeding, swelling. He is tolerating the clear liquids but is craving more. Energy levels are fair to poor, SOB with exertion. Objective - Vital Signs Vital signs: Vital Signs Temp 99.4 F 09/11/19 07:00 Pulse 94 09/11/19 07:00 Resp 16 09/11/19 07:00 BP 115/68 09/11/19 07:00 Pulse Ox 95 09/11/19 07:00 Intake & Output 09/10/19 09/11/19 09/11/19 18:59 06:59 18:59 Intake Total 1227 Output Total 335 909 5197 Balance 823 -975 -1350 Intake: IV 110 Invasive Line 5 30 Invasive Line 6 30 Oral 820 Blood Product 297 Platelet Irr Pheresis 297 Acda1 Unit [id number] Output: Urine 610 273 8974 Estimated Blood Loss 4 Other: Voiding Method Urinal Urinal - Constitutional General appearance: Present: average body habitus, cooperative, no acute distress - EENT EENT Comment(s): oral mucosa with minimal bruising, no gross blood in the mouth Eyes: Present: anicteric sclerae, EOMI ENT: Present: hearing grossly normal - Respiratory Respiratory: bilateral: CTA - Cardiovascular Rhythm: regular Heart sounds: normal: S1, S2 Abnormal Heart Sounds: Absent: systolic murmur, diastolic murmur, rub, S3 Gallop, S4 Gallop, click, other - Peripheral edema leg Peripheral Edema: bilateral: None - Gastrointestinal General gastrointestinal: Present: normal bowel sounds, soft - Neurologic Neurologic: Present: CNII-XII intact - Musculoskeletal Musculoskeletal: Present: generalized weakness, strength equal bilaterally - Psychiatric Psychiatric: Present: A&O x's 3, appropriate affect, intact judgment & insight - Labs CBC & Chem 7: 09/11/19 09:42 09/11/19 09:43 Labs: Abnormal Lab Results - Last 24 Hours (Table) 09/10/19 09/11/19 09/11/19 Range/Units 20:37 06:42 09:42 WBC 0.1 L* (3.8-10.6) k/uL RBC 2.49 L (4.30-5.90) m/uL Hgb 7.3 L (13.0-17.5) gm/dL Hct 21.3 L (39.0-53.0) % Plt Count 8 L* (150-450) k/uL Sodium (137-145) mmol/L Carbon Dioxide (22-30) mmol/L Creatinine (0.66-1.25) mg/dL Glucose (74-99) mg/dL POC Glucose (mg/dL) 134 H 105 H (75-99) mg/dL Total Protein (6.3-8.2) g/dL Albumin (3.5-5.0) g/dL 09/11/19 Range/Units 09:43 WBC (3.8-10.6) k/uL RBC (4.30-5.90) m/uL Hgb (13.0-17.5) gm/dL Hct (39.0-53.0) % Plt Count (150-450) k/uL Sodium 135 L (137-145) mmol/L Carbon Dioxide 31 H (22-30) mmol/L Creatinine 0.46 L (0.66-1.25) mg/dL Glucose 143 H (74-99) mg/dL POC Glucose (mg/dL) (75-99) mg/dL Total Protein 6.1 L (6.3-8.2) g/dL Albumin 3.3 L (3.5-5.0) g/dL Microbiology - Last 24 Hours (Table) 09/10/19 14:15 Gram Stain - Preliminary Other - Other Wound Culture - Preliminary 09/07/19 23:03 Blood Culture - Preliminary Blood No Growth after 72 hours 09/10/19 14:15 Anaerobic Culture - Preliminary Other - Other Assessment and Plan (1) Pancytopenia due to antineoplastic chemotherapy Narrative/Plan: Conservative transfusions with irradiated blood products. Transfuse to keep hemoglobin 7 or higher. No transfusion today, hemoglobin 7.3. Transfuse to keep platelets 10,000 or higher unless symptomatic. Platelet count is 8000 today, 1 unit SDP White blood cell count is 0.1. Patient is not a confirmed remission, no G-CSF at this time. Current Visit: Yes Status: Acute Priority: High Code(s): D61.810 - ANTINEOPLASTIC CHEMOTHERAPY INDUCED PANCYTOPENIA; T45.1X5A - ADVERSE EFFECT OF ANTINEOPLASTIC AND IMMUNOSUP DRUGS, INIT SNOMED Code(s): 121590136686444 (2) Febrile neutropenia Narrative/Plan: Pancultures negative, PICC line culture negative. Empiric antibiotics cont. ID adjusted therapy. No GCSF, pt not confirmed remission Fever again last night S/P teeth extraction, ?possible source. No fever today Current Visit: Yes Status: Acute Priority: High Code(s): D70.9 - NEUTROPENIA, UNSPECIFIED; R50.81 - FEVER PRESENTING WITH CONDITIONS CLASSIFIED ELSEWHERE SNOMED Code(s): 586051534 (3) Acute erythroid leukemia Narrative/Plan: Patient is currently being treated with salvage HiDAC regimen. Unfortunately, previous treatments did not provide an adequate enough marrow response for him to proceed with bone marrow transplant. He is status post the first cycle of this regimen, completed 2 weeks ago. Bone marrow biopsy to evaluate for response to treatment occurs is sched for 09/16. Pt is aware of his condition, prognosis and possible outcomes, plan for bone marrow. Current Visit: Yes Status: Chronic Priority: High Code(s): C94.00 - ACUTE ERYTHROID LEUKEMIA, NOT HAVING ACHIEVED REMISSION SNOMED Code(s): 86888080 (4) Abscessed tooth Narrative/Plan: Post op pt is doing very well Current Visit: Yes Status: Acute Priority: High Code(s): K04.7 - PERIAPICAL ABSCESS WITHOUT SINUS SNOMED Code(s): 563156643
[2019-09-11] MEDS: VORICONAZOLE 200 MG TAB PO SCH (13:28)
[2019-09-11] MEDS: ACETAMINOPHEN TAB 325 MG TAB PO PRN (14:30)
[2019-09-11 16:42] LABS: Glucose,Whole Blood 89 mg/dL (75-99)
--- NOTE | 2019-09-11 16:59 | P.PN ---
Subjective Progress Note Date: 09/11/19 Fransisco Burnham is a 48-year-old male well-known to my practice who presented to [facility] emergency room with a chief complaint of fever. On presentation temperature was 104.4 heart rate was 119, patient has known history of leukemia he just recently received a course of chemotherapy and was discharged home less than 1 week ago, his white blood count on presentation was 0 he was admitted to oncology floor and was started on IV antibiotics, consultation for oncology and infectious disease were initiated. On 09/03/2019 patient was seen and examined on the medical floor he is alert and oriented 3 in no apparent distress, there is no fever or chills no headache or dizziness no chest pain no shortness of breath no cough no nausea or vomiting no abdominal pain no diarrhea and no urinary symptoms. Patient remains on IV antibiotic, he remains neutropenic at this time. On 09/04/2019 Patient was seen and examined on the medical floor he is alert and oriented 3 in no distress there is no fever or chills no headache or dizziness no chest pain no shortness of breath no cough no nausea or vomiting no abdominal pain no diarrhea no burning was urination no frequency or urgency and no hematuria white blood count remained 0.1 On 09/05/2019 patient was seen and examined on the medical floor he is alert and oriented 3 in no distress he is complaining of right lower tooth pain with evidence of abscess otherwise he denies any complaints there is no fever or chills no headache or dizziness no chest pain no shortness of breath no cough no nausea or vomiting no abdominal pain no diarrhea and no urinary symptoms. On 09/06/2019 patient was seen and examined on the medical floor he is alert and oriented 3 in no apparent distress he is complaining of right lower tooth pain otherwise he denies any complaints there is no fever or chills no headache or dizziness no chest pain no shortness of breath no cough no nausea or vomiting no abdominal pain no diarrhea no blood in the stools no burning was urination no frequency or urgency and no hematuria patient remains neutropenic with a white blood count of 0.1 On 09/07/2019 patient was seen and examined on the medical floor he is tooth pain has been improving, he is alert and oriented 3 and otherwise he denies any complaints there is no fever or chills no headache or dizziness no chest pain no shortness of breath no cough no nausea or vomiting no abdominal pain no diarrhea no blood in the stools no burning with urination no frequency or urgency and no hematuria. Yesterday I had a prolonged discussion with Dr. Delgadillo over the phone, he does not feel that any surgical intervention is advised that this time as the risk is higher than benefit especially in view of the Covid 19 epidemic he feels that patient may be better served being treated with IV antibiotics and have his platelet count improve, and then have a procedure as outpatient if necessary. On 09/08/2019 patient was seen and examined on the medical floor he is alert and oriented 3 in no apparent distress, he is still having episodes of fever white blood count is still significantly low at 0.2 he is still complaining of some tooth pain otherwise he denies any complaints there is no fever or chills no headache or dizziness no chest pain no shortness of breath no cough no nausea or vomiting no abdominal pain no diarrhea no burning was urination no frequency or urgency no hematuria and no blood in the stools On 09/09/2019 patient was seen and examined on the medical floor he is alert and oriented 3 in no apparent distress, he is still having fever of 101.4 his white blood count is 0.1 he is still complaining of tooth pain otherwise he denies any complaints there is no cough no vomiting or diarrhea no urinary symptoms On 09/10/2019 patient was seen and examined on the medical floor he is alert and oriented 3 in no apparent distress, he still has low-grade fever of 99.3 there is no chills no headache or dizziness no chest pain no shortness of breath no cough no nausea or vomiting no abdominal pain no diarrhea and no urinary symptoms. Patient underwent Surgical Extraction of teeth 29+31 today under local anesthesia there was minimal blood loss. White blood count is still low at 0.1 hemoglobin 7.7 and platelet count of 8 On 09/11/2019 Patient was seen and examined on the medical floor he is alert and oriented in no distress, he is still complaining of pain in his jaw otherwise no complaints at this time, WBC still at 0.1 Objective - Vital Signs Vital signs: Vital Signs Temp 99.4 F 09/11/19 07:00 Pulse 94 09/11/19 07:00 Resp 16 09/11/19 07:00 BP 115/68 09/11/19 07:00 Pulse Ox 95 09/11/19 07:00 Intake & Output 09/10/19 09/11/19 09/11/19 18:59 06:59 18:59 Intake Total 1227 Output Total 279 673 4781 Balance 823 -975 -1350 Intake: IV 110 Invasive Line 5 30 Invasive Line 6 30 Oral 820 Blood Product 297 Platelet Irr Pheresis 297 Acda1 Unit [id number] Output: Urine 553 161 1789 Estimated Blood Loss 4 Other: Voiding Method Urinal Urinal - Exam In general patient is alert and oriented 3 in no apparent distress HEENT head normocephalic and atraumatic Neck is supple no JVD no goiter no lymphadenopathy Chest exam reveals a few scattered crackles no wheezing Cardiac exam reveals regular heart sounds no gallops no murmurs Abdomen is soft nontender no organomegaly with normal bowel sounds Extremity exam reveals no edema no cyanosis or clubbing Neurological examination reveals no gross focal neurological deficit - Labs CBC & Chem 7: 09/11/19 09:42 09/11/19 09:43 Labs: Abnormal Lab Results - Last 24 Hours (Table) 09/10/19 09/11/19 09/11/19 Range/Units 20:37 06:42 09:42 WBC 0.1 L* (3.8-10.6) k/uL RBC 2.49 L (4.30-5.90) m/uL Hgb 7.3 L (13.0-17.5) gm/dL Hct 21.3 L (39.0-53.0) % Plt Count 8 L* (150-450) k/uL Sodium (137-145) mmol/L Carbon Dioxide (22-30) mmol/L Creatinine (0.66-1.25) mg/dL Glucose (74-99) mg/dL POC Glucose (mg/dL) 134 H 105 H (75-99) mg/dL Total Protein (6.3-8.2) g/dL Albumin (3.5-5.0) g/dL 09/11/19 Range/Units 09:43 WBC (3.8-10.6) k/uL RBC (4.30-5.90) m/uL Hgb (13.0-17.5) gm/dL Hct (39.0-53.0) % Plt Count (150-450) k/uL Sodium 135 L (137-145) mmol/L Carbon Dioxide 31 H (22-30) mmol/L Creatinine 0.46 L (0.66-1.25) mg/dL Glucose 143 H (74-99) mg/dL POC Glucose (mg/dL) (75-99) mg/dL Total Protein 6.1 L (6.3-8.2) g/dL Albumin 3.3 L (3.5-5.0) g/dL Microbiology - Last 24 Hours (Table) 09/10/19 14:15 Gram Stain - Preliminary Other - Other Wound Culture - Preliminary 09/07/19 23:03 Blood Culture - Preliminary Blood No Growth after 72 hours 09/10/19 14:15 Anaerobic Culture - Preliminary Other - Other Assessment and Plan Plan: #1 febrile illness with neutropenia, source of infection is not entirely clear at this time influenza A and B were negative urine analysis without any evidence of urinary tract infection, blood culture is pending. Awaiting possible intervention by oral surgery #2 acute erythroid leukemia, patient received chemotherapy at [facility] and was discharged home less than 1 week ago #3 anemia hemoglobin on presentation 4.8 RBC transfusion ordered by oncology #4 thrombocytopenia platelet count is down to 3 no evidence of bleeding at this time #5 lactic acidosis, on presentation lactic acid level was 2.7 down to 1.3, continue IV hydration and IV antibiotics. #6 underlying history of diabetes mellitus maintained on metformin continue #7 underlying history of hypertension maintained on metoprolol continue #8 underlying history of depression maintained on Effexor continue. #9 tooth abscess consultation for oral surgery was initiated continue with current antibiotics, we are hoping for intervention by oral surgery during this admission, patient will need platelet transfusion prior to procedure At this time home medication reviewed and reordered Continue with IV antibiotics and IV hydration Platelet transfusion was ordered by hematology Consultation for hematology oncology and infectious disease are following Patient underwent Surgical Extraction of teeth 29+31 today Continue IV antibiotics Will follow closely
[2019-09-11] MEDS: metFORMIN 500 MG TAB PO SCH (17:50)
[2019-09-11 20:28] LABS: Glucose,Whole Blood 128 mg/dL (75-99)
[2019-09-11] MEDS: METOPROLOL TARTRATE 25 MG TAB PO SCH (20:30)
[2019-09-11] MEDS: VENLAFAXINE HCL ER 150 MG CAP PO SCH (20:30)
[2019-09-11] MEDS: MONTELUKAST 10 MG TAB PO SCH (20:30)
--- NOTE | 2019-09-11 21:28 | PN ---
PROGRESS NOTE DATE OF SERVICE: 09/11/2019 REASON FOR FOLLOWUP: Febrile neutropenia and infected tooth. INTERVAL HISTORY: The patient is afebrile. The patient is status post extraction of his lower jaw teeth. The patient tolerated that procedure. Pain is currently controlled. Denies having any chest pain or cough. No abdominal pain or diarrhea. PHYSICAL EXAMINATION: Blood pressure 129/64 with a pulse of 93, temperature 99.8. T-max 100.6. He is 99% on room air. General description is a middle-aged male lying in bed in no distress. RESPIRATORY SYSTEM: Unlabored breathing. Clear to auscultation anteriorly. HEART: S1, S2. Regular rate and rhythm. ABDOMEN: Soft. No tenderness. LABS: Hemoglobin is 7.3 with white count of 0.1, creatinine 0.46. Blood culture negative. Oral cultures are currently pending. DIAGNOSTIC IMPRESSION AND PLAN: Patient with febrile neutropenia with infected lower jaw teeth, status post extraction and cultures. Cultures will be followed. Patient to continue with Unasyn, adjusting antibiotic further based on culture report. Continue with supportive care. MMODL / IJN: [id number] /
[2019-09-11] MEDS: SODIUM CHLORIDE 0.9% 1,000 ML IV SCH (22:49)
[2019-09-12] MEDS: AMPICILLIN-SULBACTAM 3 GM in SODIUM CHLORIDE 0.9% 100 ML IVPB SCH ×3 (05:04→18:07)
[2019-09-12 07:00] LABS: Glucose,Whole Blood 118 mg/dL (75-99)
[2019-09-12] MEDS: FLUTICASONE 110 MCG INHALER INHALATION SCH ×2 (07:57→19:27)
[2019-09-12] MEDS: DIVALPROEX 500 MG TABLET.DR PO SCH ×2 (08:12→20:06)
[2019-09-12] MEDS: ACYCLOVIR 200 MG CAP PO SCH ×2 (08:12→20:06)
[2019-09-12] MEDS: PANTOPRAZOLE 40 MG TABLET PO SCH (08:12)
[2019-09-12] MEDS: prednisoLONE ACETATE 1% OPHTH DROPS 5 ML BTL BOTH EYES SCH ×4 (08:13→21:34)
[2019-09-12 08:37] LABS: HCT 21.3 % (39.0-53.0); HGB 7.3 gm/dL (13.0-17.5); MCH 28.8 pg (25.0-35.0); MCHC 34.2 g/dL (31.0-37.0); MCV 84.2 fL (80.0-100.0); Mean Platelet Volume 10.9; RBC 2.53 m/uL (4.30-5.90)
[2019-09-12 08:45] LABS: WBC 0.1 k/uL (3.8-10.6)
[2019-09-12 08:46] LABS: Platelet Count 9 k/uL (150-450)
[2019-09-12] MEDS: VORICONAZOLE 200 MG TAB PO SCH (11:26)
[2019-09-12 11:27] LABS: Glucose,Whole Blood 100 mg/dL (75-99)
[2019-09-12 16:34] LABS: Glucose,Whole Blood 100 mg/dL (75-99)
--- NOTE | 2019-09-12 17:09 | P.PN ---
Subjective Progress Note Date: 09/12/19 Fransisco Burnham is a 48-year-old male well-known to my practice who presented to [facility] emergency room with a chief complaint of fever. On presentation temperature was 104.4 heart rate was 119, patient has known history of leukemia he just recently received a course of chemotherapy and was discharged home less than 1 week ago, his white blood count on presentation was 0 he was admitted to oncology floor and was started on IV antibiotics, consultation for oncology and infectious disease were initiated. On 09/03/2019 patient was seen and examined on the medical floor he is alert and oriented 3 in no apparent distress, there is no fever or chills no headache or dizziness no chest pain no shortness of breath no cough no nausea or vomiting no abdominal pain no diarrhea and no urinary symptoms. Patient remains on IV antibiotic, he remains neutropenic at this time. On 09/04/2019 Patient was seen and examined on the medical floor he is alert and oriented 3 in no distress there is no fever or chills no headache or dizziness no chest pain no shortness of breath no cough no nausea or vomiting no abdominal pain no diarrhea no burning was urination no frequency or urgency and no hematuria white blood count remained 0.1 On 09/05/2019 patient was seen and examined on the medical floor he is alert and oriented 3 in no distress he is complaining of right lower tooth pain with evidence of abscess otherwise he denies any complaints there is no fever or chills no headache or dizziness no chest pain no shortness of breath no cough no nausea or vomiting no abdominal pain no diarrhea and no urinary symptoms. On 09/06/2019 patient was seen and examined on the medical floor he is alert and oriented 3 in no apparent distress he is complaining of right lower tooth pain otherwise he denies any complaints there is no fever or chills no headache or dizziness no chest pain no shortness of breath no cough no nausea or vomiting no abdominal pain no diarrhea no blood in the stools no burning was urination no frequency or urgency and no hematuria patient remains neutropenic with a white blood count of 0.1 On 09/07/2019 patient was seen and examined on the medical floor he is tooth pain has been improving, he is alert and oriented 3 and otherwise he denies any complaints there is no fever or chills no headache or dizziness no chest pain no shortness of breath no cough no nausea or vomiting no abdominal pain no diarrhea no blood in the stools no burning with urination no frequency or urgency and no hematuria. Yesterday I had a prolonged discussion with Dr. Delgadillo over the phone, he does not feel that any surgical intervention is advised that this time as the risk is higher than benefit especially in view of the Covid 19 epidemic he feels that patient may be better served being treated with IV antibiotics and have his platelet count improve, and then have a procedure as outpatient if necessary. On 09/08/2019 patient was seen and examined on the medical floor he is alert and oriented 3 in no apparent distress, he is still having episodes of fever white blood count is still significantly low at 0.2 he is still complaining of some tooth pain otherwise he denies any complaints there is no fever or chills no headache or dizziness no chest pain no shortness of breath no cough no nausea or vomiting no abdominal pain no diarrhea no burning was urination no frequency or urgency no hematuria and no blood in the stools On 09/09/2019 patient was seen and examined on the medical floor he is alert and oriented 3 in no apparent distress, he is still having fever of 101.4 his white blood count is 0.1 he is still complaining of tooth pain otherwise he denies any complaints there is no cough no vomiting or diarrhea no urinary symptoms On 09/10/2019 patient was seen and examined on the medical floor he is alert and oriented 3 in no apparent distress, he still has low-grade fever of 99.3 there is no chills no headache or dizziness no chest pain no shortness of breath no cough no nausea or vomiting no abdominal pain no diarrhea and no urinary symptoms. Patient underwent Surgical Extraction of teeth 29+31 today under local anesthesia there was minimal blood loss. White blood count is still low at 0.1 hemoglobin 7.7 and platelet count of 8 On 09/11/2019 Patient was seen and examined on the medical floor he is alert and oriented in no distress, he is still complaining of pain in his jaw otherwise no complaints at this time, WBC still at 0.1 On 09/12/2019 patient was seen and examined on the medical floor he is alert and oriented 3 he still has some minimal pain in his jaw he had an episode of low- grade fever of 99.3 his white blood count is still at 0.1 medication and labs were reviewed continue with current management infectious disease and oncology are following Objective - Vital Signs Vital signs: Vital Signs Temp 98.7 F 09/12/19 16:03 Pulse 88 09/12/19 16:03 Resp 16 09/12/19 16:03 BP 144/80 09/12/19 16:03 Pulse Ox 98 09/12/19 16:03 Intake & Output 09/11/19 09/12/19 09/12/19 18:59 06:59 18:59 Intake Total 308 204 Output Total 1350 800 Balance -1042 -800 204 Weight 76.5 kg Intake: Blood Product 308 204 Platelet Irr Pheresis 2 204 Acda Unit [id number] Platelet Irr Pheresis 308 Acda1 Unit [id number] Output: Urine 1350 800 Other: Voiding Method Urinal # Voids 3 - Exam In general patient is alert and oriented 3 in no apparent distress HEENT head normocephalic and atraumatic Neck is supple no JVD no goiter no lymphadenopathy Chest exam reveals a few scattered crackles no wheezing Cardiac exam reveals regular heart sounds no gallops no murmurs Abdomen is soft nontender no organomegaly with normal bowel sounds Extremity exam reveals no edema no cyanosis or clubbing Neurological examination reveals no gross focal neurological deficit - Labs CBC & Chem 7: 09/12/19 07:34 09/11/19 09:43 Labs: Abnormal Lab Results - Last 24 Hours (Table) 09/11/19 09/12/19 09/12/19 Range/Units 20:25 06:58 07:34 WBC 0.1 L* (3.8-10.6) k/uL RBC 2.53 L (4.30-5.90) m/uL Hgb 7.3 L (13.0-17.5) gm/dL Hct 21.3 L (39.0-53.0) % Plt Count 9 L* (150-450) k/uL POC Glucose (mg/dL) 128 H 118 H (75-99) mg/dL 09/12/19 09/12/19 Range/Units 11:26 16:33 WBC (3.8-10.6) k/uL RBC (4.30-5.90) m/uL Hgb (13.0-17.5) gm/dL Hct (39.0-53.0) % Plt Count (150-450) k/uL POC Glucose (mg/dL) 100 H 100 H (75-99) mg/dL Microbiology - Last 24 Hours (Table) 09/07/19 23:03 Blood Culture - Preliminary Blood No Growth after 96 hours Assessment and Plan Plan: #1 febrile illness with neutropenia, source of infection is not entirely clear at this time influenza A and B were negative urine analysis without any evidence of urinary tract infection, blood culture is pending. Awaiting possible intervention by oral surgery #2 acute erythroid leukemia, patient received chemotherapy at [facility] and was discharged home less than 1 week ago #3 anemia hemoglobin on presentation 4.8 RBC transfusion ordered by oncology #4 thrombocytopenia platelet count is down to 3 no evidence of bleeding at this time #5 lactic acidosis, on presentation lactic acid level was 2.7 down to 1.3, continue IV hydration and IV antibiotics. #6 underlying history of diabetes mellitus maintained on metformin continue #7 underlying history of hypertension maintained on metoprolol continue #8 underlying history of depression maintained on Effexor continue. #9 tooth abscess consultation for oral surgery was initiated continue with current antibiotics, we are hoping for intervention by oral surgery during this admission, patient will need platelet transfusion prior to procedure At this time home medication reviewed and reordered Continue with IV antibiotics and IV hydration Platelet transfusion was ordered by hematology Consultation for hematology oncology and infectious disease are following Patient underwent Surgical Extraction of teeth 29+31 today Continue IV antibiotics Will follow closely
--- NOTE | 2019-09-12 17:28 | P.PN ---
Subjective Progress Note Date: 09/12/19 Principal diagnosis: AML, Pancytopenia platelets are 9K, transfusion ordered, remains afebrile. Objective - Vital Signs Vital signs: Vital Signs Temp 98.7 F 09/12/19 16:03 Pulse 88 09/12/19 16:03 Resp 16 09/12/19 16:03 BP 144/80 09/12/19 16:03 Pulse Ox 98 09/12/19 16:03 Intake & Output 09/11/19 09/12/19 09/12/19 18:59 06:59 18:59 Intake Total 308 204 Output Total 1350 800 Balance -1042 -800 204 Weight 76.5 kg Intake: Blood Product 308 204 Platelet Irr Pheresis 2 204 Acda Unit [id number] Platelet Irr Pheresis 308 Acda1 Unit [id number] Output: Urine 1350 800 Other: Voiding Method Urinal # Voids 3 - Exam - Constitutional General appearance: Present: average body habitus, cooperative, no acute distress - EENT EENT Comment(s): oral mucosa with minimal bruising, no gross blood in the mouth Eyes: Present: anicteric sclerae, EOMI ENT: Present: hearing grossly normal - Respiratory Respiratory: bilateral: CTA - Cardiovascular Rhythm: regular Heart sounds: normal: S1, S2 Abnormal Heart Sounds: Absent: systolic murmur, diastolic murmur, rub, S3 Gallop, S4 Gallop, click, other - Peripheral edema leg Peripheral Edema: bilateral: None - Gastrointestinal General gastrointestinal: Present: normal bowel sounds, soft - Neurologic Neurologic: Present: CNII-XII intact - Musculoskeletal Musculoskeletal: Present: generalized weakness, strength equal bilaterally - Psychiatric Psychiatric: Present: A&O x's 3, appropriate affect, intact judgment & insight - Labs CBC & Chem 7: 09/12/19 07:34 09/11/19 09:43 Labs: Abnormal Lab Results - Last 24 Hours (Table) 09/11/19 09/12/19 09/12/19 Range/Units 20:25 06:58 07:34 WBC 0.1 L* (3.8-10.6) k/uL RBC 2.53 L (4.30-5.90) m/uL Hgb 7.3 L (13.0-17.5) gm/dL Hct 21.3 L (39.0-53.0) % Plt Count 9 L* (150-450) k/uL POC Glucose (mg/dL) 128 H 118 H (75-99) mg/dL 09/12/19 09/12/19 Range/Units 11:26 16:33 WBC (3.8-10.6) k/uL RBC (4.30-5.90) m/uL Hgb (13.0-17.5) gm/dL Hct (39.0-53.0) % Plt Count (150-450) k/uL POC Glucose (mg/dL) 100 H 100 H (75-99) mg/dL Microbiology - Last 24 Hours (Table) 09/07/19 23:03 Blood Culture - Preliminary Blood No Growth after 96 hours Assessment and Plan Plan: Pancytopenia due to Antineoplastic Chemotherapy and Acute Myeloid Leukemia - Remains Transfusion Dependent, requiring platelets today for count of 8K - Conservative transfusions with irradiated blood products. - Transfuse to keep hemoglobin 7 or higher. No transfusion today - Transfuse to keep platelets 10,000 or higher and less symptomatic. Platelet count is 9K today and transfusion ordered - He is not in confirmed remission at this time, therefore no colony stimulating products advised. - Monitor Daily CBC with Differential Febrile neutropenia - Fevers improved - Possible Source Abscess Tooth - Pancultures and catheter Tip negative to date - Infectious Disease is following and management of antibiotics - Afebrile greater than 48 hours. - Discharge plan per ID Acute Myeloid Leukemia - Status post salvage HiDAC regimen (High dose Cytarabine), completed 7 days ago - Unfortunately, previous treatments did not provide an adequate enough marrow response for him to proceed with bone marrow transplant. Physician Attest: I have completed the full history and physical and agree with above dictation, dictated as a scribe
[2019-09-12] MEDS: metFORMIN 500 MG TAB PO SCH (18:07)
[2019-09-12] MEDS: HYDROcodone/APAP 10-325MG 1 EACH TAB PO PRN (20:05)
[2019-09-12] MEDS: VENLAFAXINE HCL ER 150 MG CAP PO SCH (20:06)
[2019-09-12] MEDS: METOPROLOL TARTRATE 25 MG TAB PO SCH (20:06)
[2019-09-12] MEDS: MONTELUKAST 10 MG TAB PO SCH (20:06)
[2019-09-12 21:25] LABS: Glucose,Whole Blood 107 mg/dL (75-99)
[2019-09-12] MEDS: ZOLPIDEM 5 MG TAB PO PRN (21:33)
[2019-09-12] MEDS: SODIUM CHLORIDE 0.9% 1,000 ML IV SCH (21:34)
[2019-09-13] MEDS: AMPICILLIN-SULBACTAM 3 GM in SODIUM CHLORIDE 0.9% 100 ML IVPB SCH ×3 (00:26→11:23)
--- NOTE | 2019-09-13 00:29 | PN ---
PROGRESS NOTE DATE OF SERVICE: 09/12/2019 REASON FOR FOLLOWUP: Febrile neutropenia with infected right lower jaw. INTERVAL HISTORY: The patient is currently afebrile. The patient overall feeling better. Denies having any chest pain, shortness of breath or cough. No nausea. No vomiting. No abdominal pain. No diarrhea. PHYSICAL EXAMINATION: Blood pressure 112/70 with a pulse of 95. Temperature 99.6. He is 99% on room air. General description: The patient is a middle-aged male lying in bed in no distress. Respiratory system: Unlabored breathing, clear to auscultation anteriorly. Heart S1, S2. Regular rate and rhythm. Abdomen soft, no tenderness. LABS: The patient right lower jaw abscess, culture now showing a gram-negative bacilli. DIAGNOSTIC IMPRESSION AND PLAN: Patient with febrile neutropenia in this patient who did have an infected right lower jaw 2 weeks status post extraction. Local culture now showing gram-negative. We will wait for the culture to finalize to determine discharge antibiotics. Keep the patient on Unasyn at this point. Monitor his clinical course closely. MMODL / IJN: [id number] /
[2019-09-13 06:32] LABS: Glucose,Whole Blood 109 mg/dL (75-99)
[2019-09-13 07:01] LABS: MCH 29.2 pg (25.0-35.0); MCHC 34.5 g/dL (31.0-37.0); MCV 84.6 fL (80.0-100.0); RBC 2.34 m/uL (4.30-5.90); RDW 12.1 % (11.5-15.5)
[2019-09-13 07:12] LABS: WBC 0.2 k/uL (3.8-10.6)
[2019-09-13 07:13] LABS: Platelet Count 13 k/uL (150-450)
[2019-09-13 07:15] LABS: HCT 19.8 % (39.0-53.0); HGB 6.8 gm/dL (13.0-17.5)
[2019-09-13] MEDS: PANTOPRAZOLE 40 MG TABLET PO SCH (08:10)
[2019-09-13] MEDS: prednisoLONE ACETATE 1% OPHTH DROPS 5 ML BTL BOTH EYES SCH ×2 (08:10→11:24)
[2019-09-13] MEDS: ACYCLOVIR 200 MG CAP PO SCH (08:11)
[2019-09-13] MEDS: DIVALPROEX 500 MG TABLET.DR PO SCH (08:11)
--- NOTE | 2019-09-13 10:25 | P.PN ---
Subjective Progress Note Date: 09/13/19 The patient denies any new signs or symptoms. He has not had any recurrent fevers or chills. No obvious bleeding. Discomfort at the site of extraction is well controlled. Appetite is stable. Objective - Vital Signs Vital signs: Vital Signs Temp 99.0 F 09/13/19 07:00 Pulse 93 09/13/19 07:00 Resp 16 09/13/19 07:00 BP 117/73 09/13/19 07:00 Pulse Ox 97 09/13/19 07:00 Intake & Output 09/12/19 09/13/19 09/13/19 18:59 06:59 18:59 Intake Total 204 500 Balance 204 500 Intake: Oral 500 Blood Product 204 Platelet Irr Pheresis 2 204 Acda Unit [id number] Other: Voiding Method Urinal # Voids 3 1 - Constitutional General appearance: Present: no acute distress - EENT Eyes: Present: EOMI ENT: Present: hearing grossly normal - Respiratory Respiratory: bilateral: CTA - Cardiovascular Rhythm: regular Heart sounds: normal: S1, S2 - Gastrointestinal General gastrointestinal: Present: normal bowel sounds, soft - Integumentary Integumentary: Present: normal - Neurologic Neurologic: Present: CNII-XII intact - Musculoskeletal Musculoskeletal: Present: generalized weakness, strength equal bilaterally - Labs CBC & Chem 7: 09/13/19 05:33 09/11/19 09:43 Labs: Abnormal Lab Results - Last 24 Hours (Table) 09/12/19 09/12/19 09/12/19 Range/Units 11:26 16:33 21:23 WBC (3.8-10.6) k/uL RBC (4.30-5.90) m/uL Hgb (13.0-17.5) gm/dL Hct (39.0-53.0) % Plt Count (150-450) k/uL POC Glucose (mg/dL) 100 H 100 H 107 H (75-99) mg/dL 09/13/19 09/13/19 Range/Units 05:33 06:30 WBC 0.2 L* (3.8-10.6) k/uL RBC 2.34 L (4.30-5.90) m/uL Hgb 6.8 L* (13.0-17.5) gm/dL Hct 19.8 L* (39.0-53.0) % Plt Count 13 L* (150-450) k/uL POC Glucose (mg/dL) 109 H (75-99) mg/dL Microbiology - Last 24 Hours (Table) 09/07/19 23:03 Blood Culture - Preliminary Blood No Growth after 120 hours 09/10/19 14:15 Gram Stain - Preliminary Other - Other Wound Culture - Preliminary Gram Neg Bacilli Assessment and Plan (1) Abscessed tooth Narrative/Plan: Extraction site appears clean. Culture is showing gram-negative bacilli with identification awaited. Defer to ID for continued antibiotic management Current Visit: Yes Status: Acute Priority: High Code(s): K04.7 - PERIAPICAL ABSCESS WITHOUT SINUS SNOMED Code(s): 466671522 (2) Febrile neutropenia Narrative/Plan: Patient has been afebrile for more than the last 24 hours. From our standpoint, if fever does not recur, he is okay to discharge whenever felt to be appropriate for the same by ID and the admitting service. He will need to resume his oral antibiotic prophylactic regimen if discharge. We will defer to ID if he needs additional prophylactic antibiotics as part of his regimen. Current Visit: Yes Status: Acute Priority: High Code(s): D70.9 - NEUTROPENIA, UNSPECIFIED; R50.81 - FEVER PRESENTING WITH CONDITIONS CLASSIFIED ELSEWHERE SNOMED Code(s): 205039868 (3) Acute erythroid leukemia Narrative/Plan: The patient is status post his third attempt at induction. Monitor counts with supportive care as needed. Follow-up bone marrow being planned as an outpatient Current Visit: Yes Status: Chronic Priority: High Code(s): C94.00 - ACUTE ERYTHROID LEUKEMIA, NOT HAVING ACHIEVED REMISSION SNOMED Code(s): 44723025 (4) Pancytopenia due to antineoplastic chemotherapy Narrative/Plan: Platelets are greater than 10,000 today with no obvious bleeding. Hemoglobin was 6.8. 1 unit PRBC ordered Current Visit: Yes Status: Acute Priority: High Code(s): D61.810 - ANTINEOPLASTIC CHEMOTHERAPY INDUCED PANCYTOPENIA; T45.1X5A - ADVERSE EFFECT OF ANTINEOPLASTIC AND IMMUNOSUP DRUGS, INIT SNOMED Code(s): 442461422368182
[2019-09-13 11:11] LABS: Glucose,Whole Blood 96 mg/dL (75-99)
[2019-09-13] MEDS: VORICONAZOLE 200 MG TAB PO SCH (11:21)
[2019-09-13] MEDS: FLUTICASONE 110 MCG INHALER INHALATION SCH (11:48)
[2019-09-13 13:19] VITALS: RESP 16
--- NOTE | 2019-09-13 13:46 | P.PN ---
Subjective Progress Note Date: 09/13/19 Fransisco Burnham is a 48-year-old male well-known to my practice who presented to [facility] emergency room with a chief complaint of fever. On presentation temperature was 104.4 heart rate was 119, patient has known history of leukemia he just recently received a course of chemotherapy and was discharged home less than 1 week ago, his white blood count on presentation was 0 he was admitted to oncology floor and was started on IV antibiotics, consultation for oncology and infectious disease were initiated. On 09/03/2019 patient was seen and examined on the medical floor he is alert and oriented 3 in no apparent distress, there is no fever or chills no headache or dizziness no chest pain no shortness of breath no cough no nausea or vomiting no abdominal pain no diarrhea and no urinary symptoms. Patient remains on IV antibiotic, he remains neutropenic at this time. On 09/04/2019 Patient was seen and examined on the medical floor he is alert and oriented 3 in no distress there is no fever or chills no headache or dizziness no chest pain no shortness of breath no cough no nausea or vomiting no abdominal pain no diarrhea no burning was urination no frequency or urgency and no hematuria white blood count remained 0.1 On 09/05/2019 patient was seen and examined on the medical floor he is alert and oriented 3 in no distress he is complaining of right lower tooth pain with evidence of abscess otherwise he denies any complaints there is no fever or chills no headache or dizziness no chest pain no shortness of breath no cough no nausea or vomiting no abdominal pain no diarrhea and no urinary symptoms. On 09/06/2019 patient was seen and examined on the medical floor he is alert and oriented 3 in no apparent distress he is complaining of right lower tooth pain otherwise he denies any complaints there is no fever or chills no headache or dizziness no chest pain no shortness of breath no cough no nausea or vomiting no abdominal pain no diarrhea no blood in the stools no burning was urination no frequency or urgency and no hematuria patient remains neutropenic with a white blood count of 0.1 On 09/07/2019 patient was seen and examined on the medical floor he is tooth pain has been improving, he is alert and oriented 3 and otherwise he denies any complaints there is no fever or chills no headache or dizziness no chest pain no shortness of breath no cough no nausea or vomiting no abdominal pain no diarrhea no blood in the stools no burning with urination no frequency or urgency and no hematuria. Yesterday I had a prolonged discussion with Dr. Delgadillo over the phone, he does not feel that any surgical intervention is advised that this time as the risk is higher than benefit especially in view of the Covid 19 epidemic he feels that patient may be better served being treated with IV antibiotics and have his platelet count improve, and then have a procedure as outpatient if necessary. On 09/08/2019 patient was seen and examined on the medical floor he is alert and oriented 3 in no apparent distress, he is still having episodes of fever white blood count is still significantly low at 0.2 he is still complaining of some tooth pain otherwise he denies any complaints there is no fever or chills no headache or dizziness no chest pain no shortness of breath no cough no nausea or vomiting no abdominal pain no diarrhea no burning was urination no frequency or urgency no hematuria and no blood in the stools On 09/09/2019 patient was seen and examined on the medical floor he is alert and oriented 3 in no apparent distress, he is still having fever of 101.4 his white blood count is 0.1 he is still complaining of tooth pain otherwise he denies any complaints there is no cough no vomiting or diarrhea no urinary symptoms On 09/10/2019 patient was seen and examined on the medical floor he is alert and oriented 3 in no apparent distress, he still has low-grade fever of 99.3 there is no chills no headache or dizziness no chest pain no shortness of breath no cough no nausea or vomiting no abdominal pain no diarrhea and no urinary symptoms. Patient underwent Surgical Extraction of teeth 29+31 today under local anesthesia there was minimal blood loss. White blood count is still low at 0.1 hemoglobin 7.7 and platelet count of 8 On 09/11/2019 Patient was seen and examined on the medical floor he is alert and oriented in no distress, he is still complaining of pain in his jaw otherwise no complaints at this time, WBC still at 0.1 On 09/12/2019 patient was seen and examined on the medical floor he is alert and oriented 3 he still has some minimal pain in his jaw he had an episode of low- grade fever of 99.3 his white blood count is still at 0.1 medication and labs were reviewed continue with current management infectious disease and oncology are following. On 09/13/2019 patient was seen and examined on the medical floor he is alert and oriented 3 in no apparent distress pain in his jaw has improved otherwise he denies any complaints there is no fever or chills no headache or dizziness no chest pain no shortness of breath no cough no nausea or vomiting no abdominal pain no diarrhea and no urinary symptoms. Hemoglobin today is low at 6.81 unit of red blood cell transfusion was ordered by oncology, we are awaiting recommendation by infectious disease regarding antibiotic at discharge. We are awaiting transfusion of 1 unit of red blood cells. Possible discharge to home tomorrow. Objective - Vital Signs Vital signs: Vital Signs Temp 99.0 F 09/13/19 07:00 Pulse 93 09/13/19 07:00 Resp 16 09/13/19 07:00 BP 117/73 09/13/19 07:00 Pulse Ox 97 09/13/19 07:00 Intake & Output 09/12/19 09/13/19 09/13/19 18:59 06:59 18:59 Intake Total 204 500 Balance 204 500 Intake: Oral 500 Blood Product 204 Platelet Irr Pheresis 2 204 Acda Unit [id number] Other: Voiding Method Urinal # Voids 3 1 - Exam In general patient is alert and oriented 3 in no apparent distress HEENT head normocephalic and atraumatic Neck is supple no JVD no goiter no lymphadenopathy Chest exam reveals a few scattered crackles no wheezing Cardiac exam reveals regular heart sounds no gallops no murmurs Abdomen is soft nontender no organomegaly with normal bowel sounds Extremity exam reveals no edema no cyanosis or clubbing Neurological examination reveals no gross focal neurological deficit - Labs CBC & Chem 7: 09/13/19 05:33 09/11/19 09:43 Labs: Abnormal Lab Results - Last 24 Hours (Table) 09/12/19 09/12/19 09/13/19 Range/Units 16:33 21:23 05:33 WBC 0.2 L* (3.8-10.6) k/uL RBC 2.34 L (4.30-5.90) m/uL Hgb 6.8 L* (13.0-17.5) gm/dL Hct 19.8 L* (39.0-53.0) % Plt Count 13 L* (150-450) k/uL POC Glucose (mg/dL) 100 H 107 H (75-99) mg/dL Crossmatch 09/13/19 09/13/19 Range/Units 06:30 10:15 WBC (3.8-10.6) k/uL RBC (4.30-5.90) m/uL Hgb (13.0-17.5) gm/dL Hct (39.0-53.0) % Plt Count (150-450) k/uL POC Glucose (mg/dL) 109 H (75-99) mg/dL Crossmatch See Detail Microbiology - Last 24 Hours (Table) 09/07/19 23:03 Blood Culture - Preliminary Blood No Growth after 120 hours 09/10/19 14:15 Gram Stain - Preliminary Other - Other Wound Culture - Preliminary Gram Neg Bacilli Assessment and Plan Plan: #1 febrile illness with neutropenia, source of infection is not entirely clear at this time influenza A and B were negative urine analysis without any evidence of urinary tract infection, blood culture is pending. Awaiting possible intervention by oral surgery #2 acute erythroid leukemia, patient received chemotherapy at [facility] and was discharged home less than 1 week ago #3 anemia hemoglobin on presentation 4.8 RBC transfusion ordered by oncology #4 thrombocytopenia platelet count is down to 3 no evidence of bleeding at this time #5 lactic acidosis, on presentation lactic acid level was 2.7 down to 1.3, continue IV hydration and IV antibiotics. #6 underlying history of diabetes mellitus maintained on metformin continue #7 underlying history of hypertension maintained on metoprolol continue #8 underlying history of depression maintained on Effexor continue. #9 tooth abscess consultation for oral surgery was initiated continue with current antibiotics, we are hoping for intervention by oral surgery during this admission, patient will need platelet transfusion prior to procedure At this time home medication reviewed and reordered Continue with IV antibiotics and IV hydration Platelet transfusion was ordered by hematology Consultation for hematology oncology and infectious disease are following Patient underwent Surgical Extraction of teeth 29+31 today Continue IV antibiotics Will follow closely
[2019-09-13 15:24] VITALS: BP 110/67; PULSE 94; TEMP 99.7
[2019-09-13 16:16] LABS: Glucose,Whole Blood 90 mg/dL (75-99)
--- NOTE | 2019-09-15 12:38 | CDI ---
Documentation Clarification Form Date: 09/15/2019 12:10:41 PM From: Geovanna Miranda Phone: If you have a question about this query, please contact Bernarda Lubin [employer]ing Machine Set Up Operator at [phone] between 8am and 5pm. Admit Date: 09/01/2019 10:14:00 PM Patient Name: Fransisco Burnham Visit Number: [id number] Discharge Date: 09/13/2019 05:16:00 PM ATTENTION: The Clinical Documentation Specialists (CDI) and [facility] Coding Staff appreciate your assistance in clarifying documentation. Please respond to the clarification below the line at the bottom and electronically sign. The CDI & [facility] Coding staff will review the response and follow-up if needed. Please note: Queries are made part of the Legal Health Record. If you have any questions, please contact the author of this message via ITS. Dr. Veronika Dotson Patient admitted with fever documented as neutropenic fever and patient had tooth extraction and surgeon documents "Patient having intractable fevers since admission most likely due to oral abscess the pain and swelling of lower right makes this most likely the source. Please clarify History/Risk Factors: Patient had recently had chemo and pancytopenia due to chemo, patient has Acute erythroid leukemia Labs/Microbiology reports: WBC's 0.00 Temperature: 104.4F Vitals on admission: 104.4 F 119 bpm, 20 107/65 100% RA Treatment:Tooth extraction Medication: Antibiotics Consults: Dental and ID In order to accurately reflect the patients severity of condition; please indicate the cause of this patients symptom of fever, if known. Fever secondary to dental abscess fever due to pancytopenia due to chemo Fever of unknown origin Other, please specify Unable to determine Fever secondary to dental abcess MTDD
== END 2019-09-13 17:16 | disposition home or self-care (01) | DRG 157 ==
LOC: EC 20:33 → 3SCARD 22:14 → 4SSUR 09-08 22:38
PROVIDERS: ADMIT Internal Medicine; ATTEND Internal Medicine
PROC: 30233R1 Transfusion of Nonautologous Platelets into Peripheral Vein, Percutaneous Approach (ICD-10-PCS; 2019-09-02)
PROC: 30233N1 Transfusion of Nonautologous Red Blood Cells into Peripheral Vein, Percutaneous Approach (ICD-10-PCS; 2019-09-02)
PROC: 6A550Z2 Pheresis of Platelets, Single (ICD-10-PCS; 2019-09-07)
PROC: 0CDXXZ1 Extraction of Lower Tooth, Multiple, External Approach (ICD-10-PCS; principal; 2019-09-10 11:30)
DX: K04.7 Periapical abscess without sinus (principal); D61.810 Antineoplastic chemotherapy induced pancytopenia; K12.2 Cellulitis and abscess of mouth; C94.00 Acute erythroid leukemia, not having achieved remission; E87.2 Acidosis; K02.9 Dental caries, unspecified; E78.5 Hyperlipidemia, unspecified; F17.210 Nicotine dependence, cigarettes, uncomplicated; F31.9 Bipolar disorder, unspecified; F41.9 Anxiety disorder, unspecified; E11.40 Type 2 diabetes mellitus with diabetic neuropathy, unspecified; Z79.84 Long term (current) use of oral hypoglycemic drugs; I10 Essential (primary) hypertension; I25.2 Old myocardial infarction; J45.909 Unspecified asthma, uncomplicated; T45.1X5A Adverse effect of antineoplastic and immunosuppressive drugs, initial encounter; Z79.899 Other long term (current) drug therapy; Z80.1 Family history of malignant neoplasm of trachea, bronchus and lung; Z82.49 Family history of ischemic heart disease and other diseases of the circulatory system; Z82.5 Family history of asthma and other chronic lower respiratory diseases; Z20.828 Contact with and (suspected) exposure to other viral communicable diseases; Z83.3 Family history of diabetes mellitus; Z87.442 Personal history of urinary calculi; Z95.5 Presence of coronary angioplasty implant and graft; Z96.651 Presence of right artificial knee joint; Z83.2 Family history of diseases of the blood and blood-forming organs and certain disorders involving the immune mechanism; Z81.8 Family history of other mental and behavioral disorders; Z99.89 Dependence on other enabling machines and devices; G47.30 Sleep apnea, unspecified; Z88.6 Allergy status to analgesic agent; Z88.1 Allergy status to other antibiotic agents; Z83.79 Family history of other diseases of the digestive system; Z87.19 Personal history of other diseases of the digestive system; K21.9 Gastro-esophageal reflux disease without esophagitis; M19.90 Unspecified osteoarthritis, unspecified site
CPT/HCPCS: 36415; 70486; 71045; 80048; 80053; 81003; 83605; 83615; 84145; 85025; 85027; 85610; 85730; 86140; 86850; 86900; 86901; 86920; 87040; 87070; 87075; 87077; 87186; 87205; 87502; 87635; 88300; 93005; 94640; 96365; 96367; 99285

== ENCOUNTER → 2019-09-01 | Outpatient (CLI) | payer MEDICARE, OTHER ==
[~2019-09-01] MED LIST changes: -HYDROmorphone 0.5 MG/0.5 ML SYRINGE IVP PRN; -LACTATED RINGERS 1,000 ML IV SCH; -ONDANSETRON 4 MG/2 ML VIAL IVP PRN; +SODIUM CHLORIDE 0.9% 500 ML 500 ML in EMPTY BAG 1 BAG IV PRN
== END | disposition home or self-care (01) ==
LOC: LABWHC1 13:20 → EDSTATUS 09-02 09:45
PROVIDERS: ATTEND Internal Medicine Hematology & Oncology
DX: C94.00 Acute erythroid leukemia, not having achieved remission (principal)
CPT/HCPCS: 86850; 86900; 86901; 86920

== ENCOUNTER 2019-09-17 08:43 | Day surgery (SDC) | payer MEDICARE, OTHER ==
[2019-09-17 09:23] LABS: Mean Platelet Volume 10.5
[2019-09-17 09:43] LABS: Platelet Count 17 k/uL (150-450)
[2019-09-17 09:54] LABS: African American GFR (CKD) >90 (>60 ml/min/1.73 sqM); Anion Gap 12 mmol/L; Blood Urea Nitrogen 13 mg/dL (9-20); Carbon Dioxide 26 mmol/L (22-30); Chloride 100 mmol/L (98-107); Glucose 105 mg/dL (74-99); Non-African American GFR(CKD) >90 (>60 ml/min/1.73 sqM); Potassium 4.6 mmol/L (3.5-5.1); Sodium 138 mmol/L (137-145)
[2019-09-17 10:00] LABS: INR 1.1 (<1.2); Prothrombin Time 11.5 sec (9.0-12.0)
[2019-09-17 10:51] LABS: HCT 24.6 % (39.0-53.0); MCH 28.6 pg (25.0-35.0); MCV 84.3 fL (80.0-100.0); Mean Platelet Volume 12.3; RBC 2.92 m/uL (4.30-5.90); RDW 11.9 % (11.5-15.5)
[2019-09-17 10:54] LABS: HGB 8.3 gm/dL (13.0-17.5); WBC 0.5 k/uL (3.8-10.6)
[2019-09-17 10:55] LABS: Platelet Count 16 k/uL (150-450)
[2019-09-17 11:00] LABS: Large Platelets Present
[2019-09-17 11:01] LABS: Poikilocytosis (M) Present
[2019-09-17] MEDS ORDERED: PROPOFOL 10 MG/ML 20 ML VIAL IV ONE (11:39)
[2019-09-17] MEDS ORDERED: MIDAZOLAM 2 MG/2 ML VIAL ONE (11:39)
[2019-09-17] MEDS ORDERED: KETAMINE 10 MG/ML 20 ML VIAL ONE (11:39)
[2019-09-17 11:45] VITALS: TEMP 98.4
--- NOTE | 2019-09-17 12:51 | CT ---
EXAMINATION TYPE: CT biopsy bone deep, bone marrow biopsy DATE OF EXAM: 09/17/2019 HISTORY: Acute erythremia, erythroleukemia COMPARISON: 06/25/19 ct biopsy Maximal barrier technique was utilized, hand hygiene obtained with soap and water. The skin overlyin g a suitable path to the posterior right iliac crest was localized using CT and the overlying skin wa s prepped and draped. Lidocaine used for local anesthesia. A skin abena made with a scalpel. Using CT guidance, access was gained to marrow with an 11 gauge core needle. Core and aspirated specimen s ubmitted to pathology. Following the procedure no immediate complications. The patient is discharg ed in stable condition in the care of anesthesia. Hemostasis achieved. IMPRESSION: SUCCESSFUL CT GUIDED BONE MARROW BIOPSY. PATHOLOGY PENDING. THIS PROCEDURE WAS PERFORMED BY THE UND ERSIGNED.
[2019-09-17 13:17] VITALS: RESP 16
[2019-09-17 13:22] VITALS: BP 109/56; PULSE 77
[2019-09-17 15:25] LABS: Reticulocyte % <0.50 % (0.10-1.80)
== END 2019-09-17 13:33 | disposition home or self-care (01) ==
LOC: RADPROMAIN 08:43
PROVIDERS: ATTEND Internal Medicine Hematology & Oncology
DX: C94.00 Acute erythroid leukemia, not having achieved remission (principal); D63.8 Anemia in other chronic diseases classified elsewhere; D61.810 Antineoplastic chemotherapy induced pancytopenia; T45.1X5A Adverse effect of antineoplastic and immunosuppressive drugs, initial encounter; R50.81 Fever presenting with conditions classified elsewhere; I25.10 Atherosclerotic heart disease of native coronary artery without angina pectoris; I10 Essential (primary) hypertension; E78.5 Hyperlipidemia, unspecified; J45.909 Unspecified asthma, uncomplicated; G47.33 Obstructive sleep apnea (adult) (pediatric); M19.90 Unspecified osteoarthritis, unspecified site; K21.9 Gastro-esophageal reflux disease without esophagitis; I25.2 Old myocardial infarction; E11.42 Type 2 diabetes mellitus with diabetic polyneuropathy; G89.29 Other chronic pain; M54.2 Cervicalgia; M54.5 Low back pain; G56.03 Carpal tunnel syndrome, bilateral upper limbs; R01.1 Cardiac murmur, unspecified; F41.9 Anxiety disorder, unspecified; F31.9 Bipolar disorder, unspecified; F17.200 Nicotine dependence, unspecified, uncomplicated; Z88.6 Allergy status to analgesic agent; Z88.1 Allergy status to other antibiotic agents; Z91.09 Other allergy status, other than to drugs and biological substances; Z91.018 Allergy to other foods; Z96.82 Presence of neurostimulator; Z79.52 Long term (current) use of systemic steroids; Z79.899 Other long term (current) drug therapy; Z79.51 Long term (current) use of inhaled steroids; Z79.891 Long term (current) use of opiate analgesic; Z87.19 Personal history of other diseases of the digestive system; Z99.89 Dependence on other enabling machines and devices; Z86.69 Personal history of other diseases of the nervous system and sense organs; Z95.5 Presence of coronary angioplasty implant and graft; Z98.890 Other specified postprocedural states; Z96.651 Presence of right artificial knee joint; Z87.442 Personal history of urinary calculi; Z82.49 Family history of ischemic heart disease and other diseases of the circulatory system; Z83.79 Family history of other diseases of the digestive system; Z80.1 Family history of malignant neoplasm of trachea, bronchus and lung; Z80.3 Family history of malignant neoplasm of breast; Z82.5 Family history of asthma and other chronic lower respiratory diseases; Z83.3 Family history of diabetes mellitus; Z83.438 Family history of other disorder of lipoprotein metabolism and other lipidemia; Z81.8 Family history of other mental and behavioral disorders
CPT/HCPCS: 80048; 85025; 85049; 85610; 85045; 36415; 77012; 38222; J2250; J2704; 20225

== ENCOUNTER 2019-10-22 23:37 | Emergency (ER) | payer MEDICARE, OTHER ==
[2019-10-23 00:03] VITALS: RESP 18; TEMP 99.4
[2019-10-23] MEDS ORDERED: SODIUM CHLORIDE 0.9% 1,000 ML IV ONE (00:30)
[2019-10-23] MEDS ORDERED: MORPHINE SULFATE 4 MG/ML SYRINGE IV STA (00:30)
--- NOTE | 2019-10-23 00:30 | ED ---
Abdominal Pain HPI - General Chief Complaint: Abdominal Pain Stated Complaint: Left side pain Time Seen by Provider: 10/23/19 00:11 Source: patient Mode of arrival: ambulatory Limitations: no limitations - History of Present Illness Initial Comments: This patient is a 48-year-old man, who states that he is currently in hospice care for leukemia, presenting to try to obtain relief for left-sided abdominal pain that is been going on for 1 week. I states that it started somewhat mild to moderate intensity and that over the course of the week, especially today it has become more severe. The patient is not able to characterize the pain well other than that it is severe. He did try taking his home medication, which is Nahma and found that it did not provide much relief at all. He denies any associated symptoms. No radiation of the pain. He has not noted worsening or relieving factors other than that pressing on his abdomen hurts. MD Complaint: abdominal pain Onset/Timin -: week(s) Location: LUQ, LLQ Radiation: none Migration to: no migration Severity: severe Quality: aching Consistency: constant Improves With: nothing Worsens With: nothing Associated Symptoms: denies other symptoms - Related Data Home Medications Medication Instructions Recorded Confirmed Montelukast Sodium [Singulair] 10 mg PO HS 06/01/16 09/17/19 Albuterol Inhaler (Mhu) [Ventolin 2 puff INHALATION RT-Q6H PRN 10/15/17 09/17/19 Hfa Inhaler (Mhu)] Beclomethasone Dipropionate [Qvar 2 puff INHALATION RT-BID 10/15/17 09/17/19 80 mcg] Metoprolol Tartrate [Lopressor] 25 mg PO HS 06/03/19 09/17/19 HYDROcodone/APAP 10-325MG [Nahma 1 tab PO TID PRN 08/08/19 09/17/19 10-325] Amoxicillin/Potassium Clav 1 tab PO Q12HR 09/16/19 09/17/19 [Augmentin 500-125 Tablet] Previous Rx's Medication Instructions Recorded Divalproex [Depakote] 500 mg PO BID tablet. 01/27/19 metFORMIN HCL [Glucophage] 500 mg PO PC-SUPPER #0 02/19/19 Zolpidem [Ambien] 5 mg PO HS PRN #30 tab 06/09/19 Venlafaxine HCl [Effexor XR] 150 mg PO HS 30 Days #30 tab 07/09/19 Acyclovir [Zovirax] 400 mg PO BID #60 cap 08/27/19 Baclofen [Lioresal] 5 mg PO BID PRN tab 08/27/19 Doxycycline [Vibramycin] 100 mg PO BID #10 capsule 08/27/19 Voriconazole 100 mg PO DAILY@1130 #30 tab 08/27/19 prednisoLONE ACETATE 1% OPHTH 1 drops BOTH EYES QID ml 08/27/19 [Pred Forte 1%] Allergies Allergy/AdvReac Type Severity Reaction Status Date / Time naproxen [From Naprosyn] Allergy Severe Rash/Hives Verified 10/23/19 00:02 vancomycin Allergy Severe Rash/Hives Verified 10/23/19 00:02 adhesive tape Allergy Intermediate Rash/Hives Verified 10/23/19 00:02 ibuprofen Allergy Intermediate Itching Verified 10/23/19 00:02 mold Allergy Unknown Verified 10/23/19 00:02 carrot AdvReac Severe Dyspnea Verified 10/23/19 00:02 chocolate flavor AdvReac Severe Dyspnea Verified 10/23/19 00:02 grass pollen-perennial rye, AdvReac Intermediate Dyspnea Verified 10/23/19 00:02 standar Review of Systems ROS Statement: Those systems with pertinent positive or pertinent negative responses have been documented in the HPI. ROS Other: All systems not noted in ROS Statement are negative. Constitutional: Denies: fever, chills Respiratory: Denies: cough, dyspnea Cardiovascular: Denies: chest pain, palpitations, edema, syncope Gastrointestinal: Reports: abdominal pain. 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 Recent hospital admission for fever - abscess tooth Last Myocardial Infarction Date:: 2004 History of Any Multi-Drug Resistant Organisms: None Reported Past Surgical History: Heart Catheterization With Stent, Hernia Repair, Joint Replacement Additional Past Surgical History / Comment(s): Bone marrow aspirations/biopsies, right knee arthroscopy X3, right total knee replacement with revision, left knee arthroscopy, cardiac stent X1, stent placed for kidney stone and then removed, COLONOSCOPY, cervical and lumbar neurostimulator implants, left inguinal hernia repair. dental extraction 08/2019 Past Anesthesia/Blood Transfusion Reactions: No Reported Reaction Additional Past Anesthesia/Blood Transfusion Reaction / Comment(s): Pt has received blood/platelets before with no reaction. Date of Last Stent Placement:: 2004 Past Psychological History: Anxiety, Bipolar, Depression, PTSD Smoking Status: Current every day smoker Past Alcohol Use History: None Reported Past Drug Use History: None Reported - Past Family History Father Family Medical History: Congestive Heart Failure (CHF), Deep Vein Thrombosis (DVT), Myocardial Infarction (OR), Pulmonary Embolus Additional Family Medical History / Comment(s): OR at age 38. "hole in colon". Mother Family Medical History: Cancer, COPD, Diabetes Mellitus, Hyperlipidemia Additional Family Medical History / Comment(s): Mother had breast and lung cancer. She of lung cancer in her 60s. Sister(s) Family Medical History: Diabetes Mellitus, Liver Disease Additional Family Medical History / Comment(s): Bi-polar, anxiety, hysterectomy, fatty liver. Brother(s) History Unknown: Yes General Exam Limitations: no limitations General appearance: alert, in no apparent distress Head exam: Present: atraumatic, normocephalic Eye exam: Present: normal appearance. Absent: scleral icterus, conjunctival injection ENT exam: Present: normal oropharynx Respiratory exam: Present: normal lung sounds bilaterally. Absent: respiratory distress, wheezes, rales, rhonchi, stridor Cardiovascular Exam: Present: regular rate, normal rhythm, normal heart sounds. Absent: systolic murmur, diastolic murmur, rubs, gallop GI/Abdominal exam: Present: soft, tenderness, guarding. Absent: distended, rebound, rigid, mass, pulsatile mass, hernia Extremities exam: Present: normal inspection, normal capillary refill. Absent: pedal edema, calf tenderness Back exam: Present: normal inspection. Absent: CVA tenderness (R), CVA tenderness (L) Neurological exam: Present: alert Skin exam: Present: warm, dry, intact, normal color. Absent: rash Course Vital Signs 10/22/19 10/23/19 23:58 02:17 Temperature 99.4 F Pulse Rate 115 H 110 H Respiratory 18 18 Rate Blood Pressure 100/54 128/61 O2 Sat by Pulse 99 96 Oximetry Medical Decision Making - Medical Decision Making Patient is a 48-year-old man, hospice patient for leukemia, with left-sided abdominal pain. The patient has had relief with medication and would like to go home. We did discuss the anemia which has markedly worsened, and the abdominal pain, and the patient understands these may represent life threatening conditions but states that he is on hospice anyways and would prefer to be at home. Patient declining admission. patient declining transfusion prior to discharge. In light of this patient discharged. - Lab Data Result diagrams: 10/23/19 00:28 10/23/19 00:28 Lab Results 10/23/19 10/23/19 10/23/19 Range/Units 00:28 00:28 00:30 WBC 2.9 L (3.8-10.6) k/uL RBC 1.66 L (4.30-5.90) m/uL Hgb 4.5 L* D (13.0-17.5) gm/dL Hct 14.3 L* (39.0-53.0) % MCV 85.9 (80.0-100.0) fL MCH 27.2 (25.0-35.0) pg MCHC 31.6 (31.0-37.0) g/dL RDW 20.6 H (11.5-15.5) % Hypochromasia Moderate Poikilocytosis Moderate Anisocytosis Moderate Microcytosis Slight Sodium 132 L (137-145) mmol/L Potassium 3.7 (3.5-5.1) mmol/L Chloride 99 (98-107) mmol/L Carbon Dioxide 25 (22-30) mmol/L Anion Gap 8 mmol/L BUN 13 (9-20) mg/dL Creatinine 0.58 L (0.66-1.25) mg/dL Est GFR (CKD-EPI)AfAm >90 (>60 ml/min/1.73 sqM) Est GFR (CKD-EPI)NonAf >90 (>60 ml/min/1.73 sqM) Glucose 142 H (74-99) mg/dL Calcium 8.6 (8.4-10.2) mg/dL Total Bilirubin 1.0 (0.2-1.3) mg/dL AST 15 L (17-59) U/L ALT 11 (4-49) U/L Alkaline Phosphatase 59 (38-126) U/L Total Protein 5.8 L (6.3-8.2) g/dL Albumin 3.3 L (3.5-5.0) g/dL Amylase <30 L (30-110) U/L Lipase 18 L (23-300) U/L Urine Color Yellow Urine Appearance Clear (Clear) Urine pH 6.0 (5.0-8.0) Ur Specific [place] 1.021 (1.001-1.035) Urine Protein Trace H (Negative) Urine Glucose (UA) Negative (Negative) Urine Ketones Negative (Negative) Urine Blood Small H (Negative) Urine Nitrite Negative (Negative) Urine Bilirubin Negative (Negative) Urine Urobilinogen 6.0 (<2.0) mg/dL Ur Leukocyte Esterase Negative (Negative) Urine RBC 15 H (0-5) /hpf Urine WBC 1 (0-5) /hpf Hyaline Casts 1 (0-2) /lpf Urine Mucus Occasional H (None) /hpf Disposition Clinical Impression: Abdominal pain, Splenomegaly, Anemia Disposition: HOME SELF-CARE Condition: Poor Instructions (If sedation given, give patient instructions): Abdominal Pain (ED), Anemia (ED) Is patient prescribed a controlled substance at d/c from ED?: No Referrals: Veronika Dotson MD [Primary Care Provider] - 1-2 days
[2019-10-23 01:07] LABS: Anisocytosis Moderate; Hypochromasia Moderate; MCH 27.2 pg (25.0-35.0); MCHC 31.6 g/dL (31.0-37.0); MCV 85.9 fL (80.0-100.0); Mean Platelet Volume 8.7; Microcytosis Slight; Poikilocytosis Moderate; RBC 1.66 m/uL (4.30-5.90); RDW 20.6 % (11.5-15.5)
[2019-10-23 01:16] LABS: HCT 14.3 % (39.0-53.0); HGB 4.5 gm/dL (13.0-17.5)
[2019-10-23 01:23] LABS: ALT 11 U/L (4-49); AST 15 U/L (17-59); African American GFR (CKD) >90 (>60 ml/min/1.73 sqM); Albumin 3.3 g/dL (3.5-5.0); Alkaline Phosphatase 59 U/L (38-126); Amylase <30 U/L (30-110); Anion Gap 8 mmol/L; Blood Urea Nitrogen 13 mg/dL (9-20); Calcium 8.6 mg/dL (8.4-10.2); Carbon Dioxide 25 mmol/L (22-30); Chloride 99 mmol/L (98-107); Glucose 142 mg/dL (74-99); Non-African American GFR(CKD) >90 (>60 ml/min/1.73 sqM); Potassium 3.7 mmol/L (3.5-5.1); Sodium 132 mmol/L (137-145); Total Protein 5.8 g/dL (6.3-8.2)
[2019-10-23 01:37] LABS: Appearance,Urine Clear (Clear); Bilirubin,Urine Negative (Negative); Blood,Urine Small (Negative); Color,Urine Yellow; Glucose,Urine (UA) Negative (Negative); Hyaline Casts,Urine 1 /lpf (0-2); Ketones,Urine Negative (Negative); Leukocyte Esterase,Urine Negative (Negative); Mucus,Urine Occasional /hpf; Nitrite,Urine Negative (Negative); Protein,Urine Trace (Negative); RBC,Urine 15 /hpf (0-5); Specific Gravity,Urine 1.021 (1.001-1.035); WBC,Urine 1 /hpf (0-5)
--- NOTE | 2019-10-23 01:51 | CT ---
EXAMINATION TYPE: CT abdomen pelvis wo con DATE OF EXAM: 10/23/2019 COMPARISON: 02/14/2019 HISTORY: LLQ pain CT DLP: 750.5 mGycm Automated exposure control for dose reduction was used. There is mild subsegmental atelectasis in the lower lung crane. There is no pleural effusion. Heart is fairly normal. There is no pericardial effusion. Spleen is markedly enlarged and measures 18 cm. The bile ducts are not dilated. Liver shows no focal defect. Gallbladder appears normal. There is no evidence of pancreatic mass. The stomach is intact. There is no adrenal mass. Kidneys have normal size and contour. There is no hydronephrosis. Ureters a re not dilated. There is no retroperitoneal adenopathy. Bladder distends smoothly. There is mild left side prostate calcification. There is no inguinal hernia. There is no free fluid in the pelvis. Ther e are a few sigmoid diverticula. There is no sign of diverticulitis. There are bilateral implanted de vice is over the left and right iliac crests. There is no mesenteric edema. There is no ascites or free air. I see no sign of a bowel obstruction. Appendix appears normal. The lumbar vertebra have normal alignment. Disc spaces are fairly normal. Th ere is some mild narrowing at L5-S1 with vacuum disc. The bony pelvis is intact. IMPRESSION: There is severe splenomegaly that is increased compared to old exam. Spleen measures 16 cm on old exa m and now measures 18 cm. There is clearing of the left side renal obstruction compared to old exam. No renal calculus seen. Normal appendix. Mild subsegmental atelectasis at the lung bases that appears new compared to old exam.
[2019-10-23 02:17] VITALS: BP 128/61; PULSE 110
[2019-10-23] MEDS ORDERED: HYDROmorphone 0.5 MG/0.5 ML SYRINGE IVP STA (02:36)
[2019-10-23 02:43] LABS: Band Neutrophils % 16 %; Lymphocytes # (M) 1.04 k/uL (1.0-4.8); Monocytes # (M) 0.12 k/uL (0-1.0); Neutrophils % (M) 34 %; Nucleated Red Blood Cells 28 /100 WBC (0-0); Total Cells Counted 100; WBC 2.3 k/uL (3.8-10.6)
[2019-10-23 02:44] LABS: Anisocytosis (M) Present; Poikilocytosis (M) Present
[2019-10-23 02:45] LABS: Platelet Count 10 k/uL (150-450)
== END 2019-10-23 02:49 | disposition home or self-care (01) ==
LOC: EC 23:37
DX: R16.1 Splenomegaly, not elsewhere classified (principal); D64.9 Anemia, unspecified; C94.00 Acute erythroid leukemia, not having achieved remission; R10.32 Left lower quadrant pain; J45.909 Unspecified asthma, uncomplicated; I25.2 Old myocardial infarction; I10 Essential (primary) hypertension; G47.30 Sleep apnea, unspecified; F17.200 Nicotine dependence, unspecified, uncomplicated; Z79.51 Long term (current) use of inhaled steroids; Z79.899 Other long term (current) drug therapy; Z88.6 Allergy status to analgesic agent; Z88.1 Allergy status to other antibiotic agents; Z91.048 Other nonmedicinal substance allergy status; Z91.018 Allergy to other foods; Z99.89 Dependence on other enabling machines and devices; Z92.21 Personal history of antineoplastic chemotherapy; Z87.19 Personal history of other diseases of the digestive system; Z96.651 Presence of right artificial knee joint; Z98.890 Other specified postprocedural states; Z53.20 Procedure and treatment not carried out because of patient's decision for unspecified reasons
CPT/HCPCS: 36415; 86900; 86901; 80053; 82150; 83690; 85025; 86850; 81001; 74176; 96374; 96375; 96361; 99284; J2270; J1170